=== PATIENT | female | born 1980 | race Caucasian/White ===

== ENCOUNTER 2016-10-11 14:22 | Emergency (ER) | payer SELFPAY ==
[~2016-10-11] VITALS: Ht 172.7 cm; Wt 154.2 kg
[~2016-10-11 14:22] MED LIST: GABA600T2 PO; LEVO100T7 PO; LITH300T PO; LOXA10CA PO; TRAZ150T72 PO
[2016-10-11] MEDS ORDERED: AMOX500C2 PO (14:38)
[2016-10-11] MEDS ORDERED: NAPR500T PO (14:38)
--- NOTE | 2016-10-11 14:38 | ED EENT ---
History of Present Illness General Stated Complaint: TOOTHACHE,HEADACHE Source: patient Exam Limitations: no limitations History of Present Illness Time seen by provider: 14:36 Initial Comments To ER with a left upper toothache for one week. No fevers or chills. No swelling. Has not seen her dentist. Timing/Duration: abrupt Severity: moderate Location: mouth Prearrival Treatment: no prearrival treatment Allergies and Home Medications Home Medications Gabapentin 600 Mg Tablet, 600 MG PO TIDAC, (Reported) Levothyroxine Sodium 100 Mcg Tablet, 100 MCG PO DAILY, (Reported) [place] Carbonate 300 Mg Tablet.er, 300 MG PO BID, (Reported) Loxapine Succinate 10 Mg Capsule, 10 MG PO BID, (Reported) Trazodone HCl 150 Mg Tablet, 150 MG PO HS, (Reported) Review of Systems Constitutional: see HPI, No chills, No fever Eyes: No Symptoms Reported Ears: No Symptoms Reported Nose: no symptoms reported Mouth: see HPI Throat: no symptoms reported Respiratory: no symptoms reported Cardiovascular: no symptoms reported Musculoskeletal: no symptoms reported Past Hioufgy-Tvgsyl-Cdhiqd Hx Patient Social History Recent Foreign Travel: No Contact w/Someone Who Travel: No Immunizations Up To Date Tetanus Booster (TDap): Unknown Surgeries HX Surgeries: Yes (LIVER BIOPSY) Surgeries: Section, Orthopedic Respiratory Hx Respiratory Disorders: Yes Respiratory Disorders: Sleep Apnea Cardiovascular Hx Cardiac Disorders: No Neurological Hx Neurological Disorders: Yes (NEUROPATHY FROM ALCOHOLISM; RESTLESSLEG SYNDROME) Neurological Disorders: Neuropathy Genitourinary Hx Genitourinary Disorders: No Gastrointestinal Hx Gastrointestinal Disorders: Yes (FATTY LIVER) Gastrointestinal Disorders: Liver Disease/Jaundice Musculoskeletal Hx Musculoskeletal Disorders: No Endocrine Hx Endocrine Disorders: Yes (OBESITY) Endocrine Disorders: Hypothyroidsim HEENT HX ENT Disorders: No Cancer Hx Cancer: No Psychosocial Hx Psychiatric Problems: Yes Behavioral Health Disorders: Anxiety, Bipolar, Depression Integumentary HX Skin/Integumentary Disorder: No Blood Transfusions Hx Blood Disorders: No Physical Exam General Appearance: WD/WN, no apparent distress Eyes: bilateral eye EOMI, bilateral eye PERRL, bilateral eye normal inspection Ears: bilateral ear TM normal, bilateral ear auricle normal, bilateral ear canal normal Mouth/Throat: other (multiple dental caries and fractured teeth) Neck: non-tender, full range of motion Respiratory: no respiratory distress, no accessory muscle use Gastrointestinal: normal bowel sounds, non tender, soft Neurologic/Psychiatric: alert, normal mood/affect, oriented x 3 Skin: normal color, warm/dry Departure Impression Impression: Primary Impression: Dental caries Disposition: 01 HOME, SELF-CARE Condition: Stable Departure-Patient Inst. Decision time for Depature: 14:37 Referrals: JOSE LARRY (PCP) Primary Care Physician FRANKLIN TAM MD FACP FAC [facility] (Family) Primary Care Physician Patient Instructions: Dental Pain, Tooth Decay, Adult Add. Discharge Instructions: 1. Call your dentist today to make an appointment to be seen within one to 2 weeks 2. Medication as directed 3. Return to ER for any swelling or fevers Scripts Naproxen (Naprosyn) 500 Mg Tablet 500 MG PO BID Y for PAIN, #30 TAB Prov: ANTWAN MITCHELL APRN 10/11/16 Amoxicillin (Amoxicillin) 500 Mg Capsule 500 MG PO TID, #21 CAP Prov: ANTWAN MITCHELL MANAGER FINANCIAL REPORTING 10/11/16 ANTWAN MITCHELL MANAGER FINANCIAL REPORTING Oct 11, 2016 14:38
[2016-10-11 14:43] VITALS: BP 140/90
== END 2016-10-11 14:43 | disposition home or self-care (01) ==
LOC: EDUNIT# 14:22 → ER 14:24
DX: K02.9 Dental caries, unspecified (principal); R51 Headache; E66.9 Obesity, unspecified; Z79.899 Other long term (current) drug therapy
CPT/HCPCS: 99282

== ENCOUNTER 2016-12-29 17:47 | Emergency (ER) | payer SELFPAY ==
[~2016-12-29] VITALS: Ht 175.3 cm; Wt 136.1 kg
[~2016-12-29 17:47] MED LIST changes: +AMOX500C2 PO; +NAPR500T PO
--- OUTSIDE RECORDS SUMMARY | 2016-12-29 18:04 | XMS REPORT | Continuity of Care Document ---
Author Author [facility] Organization [facility] Address Unknown Phone Unavailable Allergies Medications Problems Date Dx Coded Attending Type Code Diagnosis Diagnosed By 05/28/2012 JOSE LARRY APRN 296.30 MAJOR DEPRESSIVE AFFECTIVE DISORDER RECURRENT EPISODE UNSPECIFIED DEGREE 05/28/2012 JOSE LARRY APRN 356.9 NEUROPATHY 05/28/2012 JOSE LARRY APRN 719.43 PAIN IN JOINT INVOLVING FOREARM 05/28/2012 JOSE LARRY APRN 790.29 HYPERGLYCEMIA 05/28/2012 KATHARINE CLAIX DO 296.30 MAJOR DEPRESSIVE AFFECTIVE DISORDER RECURRENT EPISODE UNSPECIFIED DEGREE 05/28/2012 KATHARINE CALIX DO 356.9 NEUROPATHY 05/28/2012 KATHARINE CALIX DO 719.43 PAIN IN JOINT INVOLVING FOREARM 05/28/2012 KATHARINE CALIX DO 790.29 HYPERGLYCEMIA 05/28/2012 296.30 MAJOR DEPRESSIVE AFFECTIVE DISORDER RECURRENT EPISODE UNSPECIFIED DEGREE 05/28/2012 356.9 NEUROPATHY 05/28/2012 719.43 PAIN IN JOINT INVOLVING FOREARM 05/28/2012 790.29 HYPERGLYCEMIA 05/28/2012 WILLIS CUETO PHD 296.30 MAJOR DEPRESSIVE AFFECTIVE DISORDER RECURRENT EPISODE UNSPECIFIED DEGREE 05/28/2012 WILLIS CUETO PHD 356.9 NEUROPATHY 05/28/2012 WILLIS CUETO PHD 719.43 PAIN IN JOINT INVOLVING FOREARM 05/28/2012 WILLIS UCETO PHD 790.29 HYPERGLYCEMIA 05/28/2012 JAIMEE RAO APRN A 296.30 MAJOR DEPRESSIVE AFFECTIVE DISORDER RECURRENT EPISODE UNSPECIFIED DEGREE 05/28/2012 JAIMEE RAO APRN A 356.9 NEUROPATHY 05/28/2012 JAIMEE RAO APRN 719.43 PAIN IN JOINT INVOLVING FOREARM 05/28/2012 JAIMEE RAO APRN 790.29 HYPERGLYCEMIA 05/28/2012 296.30 MAJOR DEPRESSIVE AFFECTIVE DISORDER RECURRENT EPISODE UNSPECIFIED DEGREE 05/28/2012 356.9 NEUROPATHY 05/28/2012 719.43 PAIN IN JOINT INVOLVING FOREARM 05/28/2012 790.29 HYPERGLYCEMIA 05/28/2012 296.30 MAJOR DEPRESSIVE AFFECTIVE DISORDER RECURRENT EPISODE UNSPECIFIED DEGREE 05/28/2012 356.9 NEUROPATHY 05/28/2012 719.43 PAIN IN JOINT INVOLVING FOREARM 05/28/2012 790.29 HYPERGLYCEMIA 05/28/2012 296.30 MAJOR DEPRESSIVE AFFECTIVE DISORDER RECURRENT EPISODE UNSPECIFIED DEGREE 05/28/2012 356.9 NEUROPATHY 05/28/2012 719.43 PAIN IN JOINT INVOLVING FOREARM 05/28/2012 790.29 HYPERGLYCEMIA 05/28/2012 296.30 MAJOR DEPRESSIVE AFFECTIVE DISORDER RECURRENT EPISODE UNSPECIFIED DEGREE 05/28/2012 356.9 NEUROPATHY 05/28/2012 719.43 PAIN IN JOINT INVOLVING FOREARM 05/28/2012 790.29 HYPERGLYCEMIA 05/28/2012 KATHARINE CALIX DO 296.30 MAJOR DEPRESSIVE AFFECTIVE DISORDER RECURRENT EPISODE UNSPECIFIED DEGREE 05/28/2012 KATHARINE CALIX DO 356.9 NEUROPATHY 05/28/2012 KATHARINE CALIX DO 719.43 PAIN IN JOINT INVOLVING FOREARM 05/28/2012 KATHARINE CALIX DO 790.29 HYPERGLYCEMIA 05/28/2012 WILLIS CUETO PHD 296.30 MAJOR DEPRESSIVE AFFECTIVE DISORDER RECURRENT EPISODE UNSPECIFIED DEGREE 05/28/2012 WILLIS CUETO PHD 356.9 NEUROPATHY 05/28/2012 WILLIS CUETO PHD 719.43 PAIN IN JOINT INVOLVING FOREARM 05/28/2012 WILLIS CUETO PHD 790.29 HYPERGLYCEMIA 05/28/2012 DIGNA GUERRERO MD 296.30 MAJOR DEPRESSIVE AFFECTIVE DISORDER RECURRENT EPISODE UNSPECIFIED DEGREE 05/28/2012 DIGNA GUERRERO MD 356.9 NEUROPATHY 05/28/2012 DIGNA GUERRERO MD 719.43 PAIN IN JOINT INVOLVING FOREARM 05/28/2012 DIGNA GUERRERO MD 790.29 HYPERGLYCEMIA 05/28/2012 NIRU SIN JR 296.30 MAJOR DEPRESSIVE AFFECTIVE DISORDER RECURRENT EPISODE UNSPECIFIED DEGREE 05/28/2012 NIRU SIN JR 356.9 NEUROPATHY 05/28/2012 NIRU SIN JR 719.43 PAIN IN JOINT INVOLVING FOREARM 05/28/2012 NIRU SIN JR 790.29 HYPERGLYCEMIA 05/28/2012 NIRU SIN JR 296.30 MAJOR DEPRESSIVE AFFECTIVE DISORDER RECURRENT EPISODE UNSPECIFIED DEGREE 05/28/2012 NIRU SIN JR S 356.9 NEUROPATHY 05/28/2012 NIRU SIN JR S 719.43 PAIN IN JOINT INVOLVING FOREARM 05/28/2012 NIRU SIN JR S 790.29 HYPERGLYCEMIA 05/28/2012 DIGNA GUERRERO MD 296.30 MAJOR DEPRESSIVE AFFECTIVE DISORDER RECURRENT EPISODE UNSPECIFIED DEGREE 05/28/2012 DIGNA GUERRERO MD 356.9 NEUROPATHY 05/28/2012 DIGNA GUERRERO MD 719.43 PAIN IN JOINT INVOLVING FOREARM 05/28/2012 DIGNA GUERRERO MD 790.29 HYPERGLYCEMIA 05/28/2012 NIRU SIN JR S 296.30 MAJOR DEPRESSIVE AFFECTIVE DISORDER RECURRENT EPISODE UNSPECIFIED DEGREE 05/28/2012 NIRU SIN JR S 356.9 NEUROPATHY 05/28/2012 NIRU SIN JR S 719.43 PAIN IN JOINT INVOLVING FOREARM 05/28/2012 NIRU SIN JR S 790.29 HYPERGLYCEMIA 05/28/2012 SIMONE TEJADA APRN 296.30 MAJOR DEPRESSIVE AFFECTIVE DISORDER RECURRENT EPISODE UNSPECIFIED DEGREE 05/28/2012 SIMONE TEJADA APRN 356.9 NEUROPATHY 05/28/2012 SIMONE TEJADA APRN 719.43 PAIN IN JOINT INVOLVING FOREARM 05/28/2012 SIMONE TEJADA APRN 790.29 HYPERGLYCEMIA 05/28/2012 SIMONE TEJADA APRN D 296.30 MAJOR DEPRESSIVE AFFECTIVE DISORDER RECURRENT EPISODE UNSPECIFIED DEGREE 05/28/2012 SIMONE TEJADA APRN D 356.9 NEUROPATHY 05/28/2012 SIMONE TEJADA APRN D 719.43 PAIN IN JOINT INVOLVING FOREARM 05/28/2012 SIMONE TEJADA APRN D 790.29 HYPERGLYCEMIA 05/28/2012 ELZBIETA LARRY APRNA S 296.30 MAJOR DEPRESSIVE AFFECTIVE DISORDER RECURRENT EPISODE UNSPECIFIED DEGREE 05/28/2012 GIOVANNY LARRY APRNNDA S 356.9 NEUROPATHY 05/28/2012 GIOVANNY LARRY APRNNDA S 719.43 PAIN IN JOINT INVOLVING FOREARM 05/28/2012 KENDY BROWN JOSE S 790.29 HYPERGLYCEMIA 05/28/2012 BRYAN ALFONSO APRN 296.30 MAJOR DEPRESSIVE AFFECTIVE DISORDER RECURRENT EPISODE UNSPECIFIED DEGREE 05/28/2012 KADEN FILAMENT COIL WINDER, BRYAN 356.9 NEUROPATHY 05/28/2012 KADEN FILAMENT COIL WINDER, BRYAN 719.43 PAIN IN JOINT INVOLVING FOREARM 05/28/2012 KADEN FILAMENT COIL WINDER, BRYAN 790.29 HYPERGLYCEMIA 05/28/2012 KADEN FILAMENT COIL WINDER, BRYAN 296.30 MAJOR DEPRESSIVE AFFECTIVE DISORDER RECURRENT EPISODE UNSPECIFIED DEGREE 05/28/2012 KADEN FILAMENT COIL WINDER, BRYAN 356.9 NEUROPATHY 05/28/2012 KADEN FILAMENT COIL WINDER, BRYAN 719.43 PAIN IN JOINT INVOLVING FOREARM 05/28/2012 KADEN FILAMENT COIL WINDER, BRYAN 790.29 HYPERGLYCEMIA 05/28/2012 KADEN FILAMENT COIL WINDER, BRYAN 296.30 MAJOR DEPRESSIVE AFFECTIVE DISORDER RECURRENT EPISODE UNSPECIFIED DEGREE 05/28/2012 KADEN FILAMENT COIL WINDER, BRYAN 356.9 NEUROPATHY 05/28/2012 KADEN FILAMENT COIL WINDER, BRYAN 719.43 PAIN IN JOINT INVOLVING FOREARM 05/28/2012 KADEN FILAMENT COIL WINDER, BRYAN 790.29 HYPERGLYCEMIA 05/28/2012 KENDY BROWN, JOSE S 296.30 MAJOR DEPRESSIVE AFFECTIVE DISORDER RECURRENT EPISODE UNSPECIFIED DEGREE 05/28/2012 KENDY BROWN JOSE S 356.9 NEUROPATHY 05/28/2012 KENDY BROWN, JOSE S 719.43 PAIN IN JOINT INVOLVING FOREARM 05/28/2012 KENDY BROWN, JOSE S 790.29 HYPERGLYCEMIA 05/28/2012 KADEN FILAMENT COIL WINDER, BRYAN 296.30 MAJOR DEPRESSIVE AFFECTIVE DISORDER RECURRENT EPISODE UNSPECIFIED DEGREE 05/28/2012 KADEN FILAMENT COIL WINDER, BRYAN 356.9 NEUROPATHY 05/28/2012 KADEN FILAMENT COIL WINDER, BRYAN 719.43 PAIN IN JOINT INVOLVING FOREARM 05/28/2012 KADEN FILAMENT COIL WINDER, BRYAN 790.29 HYPERGLYCEMIA 05/28/2012 KENDY HILLN, JOSE S 296.30 MAJOR DEPRESSIVE AFFECTIVE DISORDER RECURRENT EPISODE UNSPECIFIED DEGREE 05/28/2012 KENDY FILAMENT COIL WINDER, JOSE S 356.9 NEUROPATHY 05/28/2012 KENDY HILLN, JOSE S 719.43 PAIN IN JOINT INVOLVING FOREARM 05/28/2012 KENDY FILAMENT COIL WINDER, JOSE S 790.29 HYPERGLYCEMIA 05/28/2012 KADEN FILAMENT COIL WINDER, BRYAN 296.30 MAJOR DEPRESSIVE AFFECTIVE DISORDER RECURRENT EPISODE UNSPECIFIED DEGREE 05/28/2012 KADEN FILAMENT COIL WINDER, BRYAN 356.9 NEUROPATHY 05/28/2012 KADEN BROWN BRYAN 719.43 PAIN IN JOINT INVOLVING FOREARM 05/28/2012 ERIBERTO ALFONSO APRNETTE 790.29 HYPERGLYCEMIA 07/25/2012 KATHARINE CALIX DO 296.90 MOOD DISORDER 07/25/2012 KATHARINE CALIX DO 307.47 SI DYSSOMNIA NOS 07/25/2012 KATHARINE CALIX DO V58.69 high risk medication 07/25/2012 296.90 MOOD DISORDER 07/25/2012 307.47 SI DYSSOMNIA NOS 07/25/2012 V58.69 high risk medication 07/25/2012 ROM PINEDO, WILLIS Oliveira 296.90 MOOD DISORDER 07/25/2012 ROM PHD, WILLIS Oliveira 307.47 SI DYSSOMNIA NOS 07/25/2012 ROM PINEDO, WILLIS Oliveira V58.69 high risk medication 07/25/2012 FELIX RAO APRNIDI A 296.90 MOOD DISORDER 07/25/2012 MAIRA BROWN JAIMEE A 307.47 SI DYSSOMNIA NOS 07/25/2012 MAIRA BROWN JAIMEE A V58.69 high risk medication 07/25/2012 296.90 MOOD DISORDER 07/25/2012 307.47 SI DYSSOMNIA NOS 07/25/2012 V58.69 high risk medication 07/25/2012 296.90 MOOD DISORDER 07/25/2012 307.47 SI DYSSOMNIA NOS 07/25/2012 V58.69 high risk medication 07/25/2012 296.90 MOOD DISORDER 07/25/2012 307.47 SI DYSSOMNIA NOS 07/25/2012 V58.69 high risk medication 07/25/2012 296.90 MOOD DISORDER 07/25/2012 307.47 SI DYSSOMNIA NOS 07/25/2012 V58.69 high risk medication 07/25/2012 KATHARINE CALIX DO 296.90 MOOD DISORDER 07/25/2012 KATHARINE CALIX DO 307.47 SI DYSSOMNIA NOS 07/25/2012 KATHARINE CALIX DO V58.69 high risk medication 07/25/2012 ROM PINEDO, WILLIS Oliveira 296.90 MOOD DISORDER 07/25/2012 ROM PINEDO, WILLIS Oliveira 307.47 SI DYSSOMNIA NOS 07/25/2012 ROM PINEDO, WILLIS Oliveira V58.69 high risk medication 07/25/2012 DIGNA GUERRERO MD 296.90 MOOD DISORDER 07/25/2012 DIGNA GUERRERO MD 307.47 SI DYSSOMNIA NOS 07/25/2012 DIGNA GUERRERO MD V58.69 high risk medication 07/25/2012 JANUARY MELO NIRU S 296.90 MOOD DISORDER 07/25/2012 JANUARY MELO NIRU S 307.47 SI DYSSOMNIA NOS 07/25/2012 JANUARY MELO NIRU S V58.69 high risk medication 07/25/2012 JANUARY MELO NIRU S 296.90 MOOD DISORDER 07/25/2012 JANUARY MELO NIRU S 307.47 SI DYSSOMNIA NOS 07/25/2012 JANUARY MELO NIRU S V58.69 high risk medication 07/25/2012 DIGNA GUERRERO MD 296.90 MOOD DISORDER 07/25/2012 DIGNA GUERRERO MD 307.47 SI DYSSOMNIA NOS 07/25/2012 DIGNA GUERRERO MD V58.69 high risk medication 07/25/2012 JANUARY MELO NIRU S 296.90 MOOD DISORDER 07/25/2012 NIRU SIN JR S 307.47 SI DYSSOMNIA NOS 07/25/2012 JANUARY MELO NIRU S V58.69 high risk medication 07/25/2012 SIMONE ETJADA APRN 296.90 MOOD DISORDER 07/25/2012 SIMONE TEJADA APRN 307.47 SI DYSSOMNIA NOS 07/25/2012 SIMONE TEJADA APRN V58.69 high risk medication 07/25/2012 SIMONE TEJADA APRN 296.90 MOOD DISORDER 07/25/2012 SIMNOE TEJADA APRN 307.47 SI DYSSOMNIA NOS 07/25/2012 SIMONE TEJADA APRN V58.69 high risk medication 07/25/2012 ELZBIETA LARRY APRNA S 296.90 MOOD DISORDER 07/25/2012 JOSE LARRY APRN S 307.47 SI DYSSOMNIA NOS 07/25/2012 GIOVANNY LARRY APRNNDA S V58.69 high risk medication 07/25/2012 BRYAN ALFONSO APRN 296.90 MOOD DISORDER 07/25/2012 BRYAN ALFONSO APRN 307.47 SI DYSSOMNIA NOS 07/25/2012 KADEN FILAMENT COIL WINDER, BRYAN V58.69 high risk medication 07/25/2012 KADEN FILAMENT COIL WINDER, BRYAN 296.90 MOOD DISORDER 07/25/2012 KADEN FILAMENT COIL WINDER, BRYAN 307.47 SI DYSSOMNIA NOS 07/25/2012 KADEN FILAMENT COIL WINDER, BRYAN V58.69 high risk medication 07/25/2012 KADEN FILAMENT COIL WINDER, BRYAN 296.90 MOOD DISORDER 07/25/2012 KADEN FILAMENT COIL WINDER, BRYAN 307.47 SI DYSSOMNIA NOS 07/25/2012 KADEN FILAMENT COIL WINDER, BRYAN V58.69 high risk medication 07/25/2012 KENDY BROWN JOSE S 296.90 MOOD DISORDER 07/25/2012 KENDY BROWN JOSE S 307.47 SI DYSSOMNIA NOS 07/25/2012 KENDY BROWN JOSE S V58.69 high risk medication 07/25/2012 KADEN FILAMENT COIL WINDER, BRYAN 296.90 MOOD DISORDER 07/25/2012 KADEN FILAMENT COIL WINDER, BRYAN 307.47 SI DYSSOMNIA NOS 07/25/2012 KADEN FILAMENT COIL WINDER, BRYAN V58.69 HIGH RISK MEDICATION 07/25/2012 KENDY BROWN JOSE S 296.90 MOOD DISORDER 07/25/2012 KENDY BROWN, JOSE S 307.47 SI DYSSOMNIA NOS 07/25/2012 KENDY BROWN, JOSE S V58.69 HIGH RISK MEDICATION 07/25/2012 KADEN FILAMENT COIL WINDER, BRYAN 296.90 MOOD DISORDER 07/25/2012 KADEN FILAMENT COIL WINDER, BRYAN 307.47 SI DYSSOMNIA NOS 07/25/2012 KADEN FILAMENT COIL WINDER, BRYAN V58.69 HIGH RISK MEDICATION 09/17/2012 FELIX RAO APRNIDI A 278.00 OBESITY 09/17/2012 FELIX RAO APRNIDI A V73.81 HPV SCREENING 09/17/2012 MAIRA BROWN JAIMEE A V74.5 STD SCREEN 09/17/2012 MAIRA BROWN JAIMEE A V76.2 CERVICAL CANCER SCREENING (PAP SMEAR) 09/17/2012 278.00 OBESITY 09/17/2012 V73.81 HPV SCREENING 09/17/2012 V74.5 STD SCREEN 09/17/2012 V76.2 CERVICAL CANCER SCREENING (PAP SMEAR) 09/17/2012 278.00 OBESITY 09/17/2012 V73.81 HPV SCREENING 09/17/2012 V74.5 STD SCREEN 09/17/2012 V76.2 CERVICAL CANCER SCREENING (PAP SMEAR) 09/17/2012 278.00 OBESITY 09/17/2012 V73.81 HPV SCREENING 09/17/2012 V74.5 STD SCREEN 09/17/2012 V76.2 CERVICAL CANCER SCREENING (PAP SMEAR) 09/17/2012 278.00 OBESITY 09/17/2012 V73.81 HPV SCREENING 09/17/2012 V74.5 STD SCREEN 09/17/2012 V76.2 CERVICAL CANCER SCREENING (PAP SMEAR) 09/17/2012 KATHARINE CALIX DO 278.00 OBESITY 09/17/2012 KATHARINE CALIX DO V73.81 HPV SCREENING 09/17/2012 ISADORAKATHARINE GASTELUM DO V74.5 STD SCREEN 09/17/2012 KATHARINE CALIX DO V76.2 CERVICAL CANCER SCREENING (PAP SMEAR) 09/17/2012 ROM PHD, WILLIS Oliveira 278.00 OBESITY 09/17/2012 ROM PHD, WILLIS Oliveira V73.81 HPV SCREENING 09/17/2012 ROM PHD, WILLIS Oliveira V74.5 STD SCREEN 09/17/2012 ROM PHD, WILLIS Oliveira V76.2 CERVICAL CANCER SCREENING (PAP SMEAR) 09/17/2012 DIGNA GUERRERO MD 278.00 OBESITY 09/17/2012 DIGNA GUERRERO MD V73.81 HPV SCREENING 09/17/2012 DIGNA GUERRERO MD V74.5 STD SCREEN 09/17/2012 DIGNA GUERRERO MD V76.2 CERVICAL CANCER SCREENING (PAP SMEAR) 09/17/2012 NIRU SIN JR 278.00 OBESITY 09/17/2012 NIRU SIN JR V73.81 HPV SCREENING 09/17/2012 NIRU SIN JR V74.5 STD SCREEN 09/17/2012 NIRU SIN JR V76.2 CERVICAL CANCER SCREENING (PAP SMEAR) 09/17/2012 NIRU SIN JR 278.00 OBESITY 09/17/2012 NIRU SIN JR V73.81 HPV SCREENING 09/17/2012 NIRU SIN JR V74.5 STD SCREEN 09/17/2012 NIRU SIN JR V76.2 CERVICAL CANCER SCREENING (PAP SMEAR) 09/17/2012 DIGNA GUERRERO MD 278.00 OBESITY 09/17/2012 DIGNA GUERRERO MD V73.81 HPV SCREENING 09/17/2012 DIGNA GUERRERO MD V74.5 STD SCREEN 09/17/2012 DIGNA GUERRERO MD V76.2 CERVICAL CANCER SCREENING (PAP SMEAR) 09/17/2012 NIRU SIN JR S 278.00 OBESITY 09/17/2012 NIRU SIN JR S V73.81 HPV SCREENING 09/17/2012 NIRU SIN JR S V74.5 STD SCREEN 09/17/2012 NIRU SIN JR S V76.2 CERVICAL CANCER SCREENING (PAP SMEAR) 09/17/2012 SIMONE TEJADA APRN 278.00 OBESITY 09/17/2012 SIMONE TEJADA APRN V73.81 HPV SCREENING 09/17/2012 SIMONE TEJADA APRN V74.5 STD SCREEN 09/17/2012 SIMONE TEJADA APRN V76.2 CERVICAL CANCER SCREENING (PAP SMEAR) 09/17/2012 SIMONE TEJADA APRN 278.00 OBESITY 09/17/2012 SIMONE TEJADA APRN V73.81 HPV SCREENING 09/17/2012 SIMONE TEJADA APRN V74.5 STD SCREEN 09/17/2012 SIMONE TEJADA APRN V76.2 CERVICAL CANCER SCREENING (PAP SMEAR) 09/17/2012 ELZBIETA LARRY APRNA S 278.00 OBESITY 09/17/2012 GIOVANNY LARRY APRNNDA S V73.81 HPV SCREENING 09/17/2012 GIOVANNY LARRY APRNNDA S V74.5 STD SCREEN 09/17/2012 GIOVANNY LARRY APRNNDA S V76.2 CERVICAL CANCER SCREENING (PAP SMEAR) 09/17/2012 KADEN FILAMENT COIL WINDER, BRYAN 278.00 OBESITY 09/17/2012 KADEN FILAMENT COIL WINDER, BRYAN V73.81 HPV SCREENING 09/17/2012 KADEN FILAMENT COIL WINDER, BRYAN V74.5 STD SCREEN 09/17/2012 KADEN FILAMENT COIL WINDER, BRYAN V76.2 CERVICAL CANCER SCREENING (PAP SMEAR) 09/17/2012 KADEN FILAMENT COIL WINDER, BRYAN 278.00 OBESITY 09/17/2012 KADEN FILAMENT COIL WINDER, BRYAN V73.81 HPV SCREENING 09/17/2012 KADEN FILAMENT COIL WINDER, BRYAN V74.5 STD SCREEN 09/17/2012 KADEN FILAMENT COIL WINDER, BRYAN V76.2 CERVICAL CANCER SCREENING (PAP SMEAR) 09/17/2012 KADEN FILAMENT COIL WINDER, BRYAN 278.00 OBESITY 09/17/2012 KADEN FILAMENT COIL WINDER, BRYAN V73.81 HPV SCREENING 09/17/2012 KADEN FILAMENT COIL WINDER, BRYAN V74.5 STD SCREEN 09/17/2012 KADEN FILAMENT COIL WINDER, BRYAN V76.2 CERVICAL CANCER SCREENING (PAP SMEAR) 09/17/2012 KENDY FILAMENT COIL WINDER, JOSE S 278.00 OBESITY 09/17/2012 KENDY FILAMENT COIL WINDER, JOSE S V73.81 HPV SCREENING 09/17/2012 KENDY FILAMENT COIL WINDER, JOSE S V74.5 STD SCREEN 09/17/2012 KENDY FILAMENT COIL WINDER, JOSE S V76.2 CERVICAL CANCER SCREENING (PAP SMEAR) 09/17/2012 KADEN FILAMENT COIL WINDER, BRYAN 278.00 OBESITY 09/17/2012 KADEN FILAMENT COIL WINDER, BRYAN V73.81 HPV SCREENING 09/17/2012 KADEN FILAMENT COIL WINDER, BRYAN V74.5 STD SCREEN 09/17/2012 KADEN FILAMENT COIL WINDER, BRYAN V76.2 CERVICAL CANCER SCREENING (PAP SMEAR) 09/17/2012 KENDY FILAMENT COIL WINDER, JOSE S 278.00 OBESITY 09/17/2012 KENDY FILAMENT COIL WINDER, JOSE S V73.81 HPV SCREENING 09/17/2012 KENDY FILAMENT COIL WINDER, JOSE S V74.5 STD SCREEN 09/17/2012 KENDY FILAMENT COIL WINDER, JOSE S V76.2 CERVICAL CANCER SCREENING (PAP SMEAR) 09/17/2012 KADEN FILAMENT COIL WINDER, BRYAN 278.00 OBESITY 09/17/2012 KADEN FILAMENT COIL WINDER, BRYAN V73.81 HPV SCREENING 09/17/2012 KADEN FILAMENT COIL WINDER, BRYAN V74.5 STD SCREEN 09/17/2012 KADEN FILAMENT COIL WINDER, BRYAN V76.2 CERVICAL CANCER SCREENING (PAP SMEAR) 02/12/2013 333.94 RESTLESS LEGS SYNDROME (RLS) 02/12/2013 333.94 RESTLESS LEGS SYNDROME (RLS) 02/12/2013 KATHARINE CALIX DO 333.94 RESTLESS LEGS SYNDROME (RLS) 02/12/2013 ROM PHD, WILLIS Oliveira 333.94 RESTLESS LEGS SYNDROME (RLS) 02/12/2013 DIGNA GUERRERO MD 333.94 RESTLESS LEGS SYNDROME (RLS) 02/12/2013 NIRU SIN JR 333.94 RESTLESS LEGS SYNDROME (RLS) 02/12/2013 NIRU SIN JR 333.94 RESTLESS LEGS SYNDROME (RLS) 02/12/2013 DIGNA GUERRERO MD 333.94 RESTLESS LEGS SYNDROME (RLS) 02/12/2013 NIRU SIN JR 333.94 RESTLESS LEGS SYNDROME (RLS) 02/12/2013 SIMONE TEJADA APRN 333.94 RESTLESS LEGS SYNDROME (RLS) 02/12/2013 SIMONE TEJADA APRN 333.94 RESTLESS LEGS SYNDROME (RLS) 02/12/2013 KENDY FILAMENT COIL WINDER, JOSE S 333.94 RESTLESS LEGS SYNDROME (RLS) 02/12/2013 KADEN FILAMENT COIL WINDER, BRYAN 333.94 RESTLESS LEGS SYNDROME (RLS) 02/12/2013 KADEN FILAMENT COIL WINDER, BRYAN 333.94 RESTLESS LEGS SYNDROME (RLS) 02/12/2013 KADEN FILAMENT COIL WINDER, BRYAN 333.94 RESTLESS LEGS SYNDROME (RLS) 02/12/2013 KENDY FILAMENT COIL WINDER, JOSE S 333.94 RESTLESS LEGS SYNDROME (RLS) 02/12/2013 KADEN FILAMENT COIL WINDER, BRYAN 333.94 RESTLESS LEGS SYNDROME (RLS) 02/12/2013 KENDY FILAMENT COIL WINDER, JOSE S 333.94 RESTLESS LEGS SYNDROME (RLS) 02/12/2013 KADEN FILAMENT COIL WINDER, BRYAN 333.94 RESTLESS LEGS SYNDROME (RLS) 04/02/2013 KATHARINE CALIX DO Ot 327.23 OBSTRUCTIVE SLEEP APNEA (ADULT) (PEDIATR 04/19/2013 DIGNA GUERRERO MD 296.89 MO BIPOLAR II 04/19/2013 DIGNA GUERRERO MD 300.23 AN SOCIAL PHOBIA 04/19/2013 NIRU SIN JR 296.89 MO BIPOLAR II 04/19/2013 NIRU SIN JR 300.23 AN SOCIAL PHOBIA 04/19/2013 NIRU SIN JR 296.89 MO BIPOLAR II 04/19/2013 NIRU SIN JR 300.23 AN SOCIAL PHOBIA 04/19/2013 DIGNA GUERRERO MD 296.89 MO BIPOLAR II 04/19/2013 DIGNA GUERRERO MD 300.23 AN SOCIAL PHOBIA 04/19/2013 NIRU SIN JR 296.89 MO BIPOLAR II 04/19/2013 NIRU SIN JR 300.23 AN SOCIAL PHOBIA 04/19/2013 SIMONE TEJADA APRN 296.89 MO BIPOLAR II 04/19/2013 SIMONE TEJADA APRN D 300.23 AN SOCIAL PHOBIA 04/19/2013 SIMONE TEJADA APRN D 296.89 MO BIPOLAR II 04/19/2013 SIMONE TEJADA APRN D 300.23 AN SOCIAL PHOBIA 04/19/2013 KENDY BROWN, JOSE S 296.89 MO BIPOLAR II 04/19/2013 KENDY BROWN, JOSE S 300.23 AN SOCIAL PHOBIA 04/19/2013 KADEN FILAMENT COIL WINDER, BRYAN 296.89 MO BIPOLAR II 04/19/2013 KADEN FILAMENT COIL WINDER, BRYAN 300.23 AN SOCIAL PHOBIA 04/19/2013 KADEN FILAMENT COIL WINDER, BRYAN 296.89 MO BIPOLAR II 04/19/2013 KADEN FILAMENT COIL WINDER, BRYAN 300.23 AN SOCIAL PHOBIA 04/19/2013 KADEN FILAMENT COIL WINDER, BRYAN 296.89 MO BIPOLAR II 04/19/2013 KADEN FILAMENT COIL WINDER, BRYAN 300.23 AN SOCIAL PHOBIA 04/19/2013 KENDY FILAMENT COIL WINDER, JOSE S 296.89 MO BIPOLAR II 04/19/2013 KENDY FILAMENT COIL WINDER, JOSE S 300.23 AN SOCIAL PHOBIA 04/19/2013 KADEN FILAMENT COIL WINDER, BRYAN 296.89 MO BIPOLAR II 04/19/2013 KADEN FILAMENT COIL WINDER, BRYAN 300.23 AN SOCIAL PHOBIA 04/19/2013 KENDY BROWN, JOSE S 296.89 MO BIPOLAR II 04/19/2013 KENDYJULIEN BROWN, JOSE S 300.23 AN SOCIAL PHOBIA 04/19/2013 KADEN FILAMENT COIL WINDER, BRYAN 296.89 MO BIPOLAR II 04/19/2013 KADEN FILAMENT COIL WINDER, BRYAN 300.23 AN SOCIAL PHOBIA 08/09/2013 DIGNA GUERRERO MD 780.57 UNSPECIFIED SLEEP APNEA 08/09/2013 NIRU SIN JR 780.57 UNSPECIFIED SLEEP APNEA 08/09/2013 SIMONE TEJADA APRN 780.57 UNSPECIFIED SLEEP APNEA 08/09/2013 SIMONE TEJADA APRN 780.57 UNSPECIFIED SLEEP APNEA 08/09/2013 GIOVANNY LARRY APRNNDA S 780.57 UNSPECIFIED SLEEP APNEA 08/09/2013 KADEN FILAMENT COIL WINDER, BRYAN 780.57 UNSPECIFIED SLEEP APNEA 08/09/2013 KADEN FILAMENT COIL WINDER, BRYAN 780.57 UNSPECIFIED SLEEP APNEA 08/09/2013 KADEN FILAMENT COIL WINDER, BRYAN 780.57 UNSPECIFIED SLEEP APNEA 08/09/2013 KENDY FILAMENT COIL WINDER, JOSE S 780.57 UNSPECIFIED SLEEP APNEA 08/09/2013 KADEN FILAMENT COIL WINDER, BRYAN 780.57 UNSPECIFIED SLEEP APNEA 08/09/2013 GIOVANNY LARRY APRNNDA S 780.57 UNSPECIFIED SLEEP APNEA 08/09/2013 KADEN FILAMENT COIL WINDER, BRYAN 780.57 UNSPECIFIED SLEEP APNEA 11/21/2013 GIOVANNY LARRY APRNNDA S 112.3 CANDIDIASIS OF SKIN AND NAILS 11/21/2013 GIOVANNY LARRY APRNNDA S 244.9 UNSPECIFIED ACQUIRED HYPOTHYROIDISM 11/21/2013 KADEN FILAMENT COIL WINDER, BRYAN 112.3 CANDIDIASIS OF SKIN AND NAILS 11/21/2013 KADEN FILAMENT COIL WINDER, BRYAN 244.9 UNSPECIFIED ACQUIRED HYPOTHYROIDISM 11/21/2013 KADEN FILAMENT COIL WINDER, BRYAN 112.3 CANDIDIASIS OF SKIN AND NAILS 11/21/2013 KADEN FILAMENT COIL WINDER, BRYAN 244.9 UNSPECIFIED ACQUIRED HYPOTHYROIDISM 11/21/2013 KADEN FILAMENT COIL WINDER, BRYAN 112.3 CANDIDIASIS OF SKIN AND NAILS 11/21/2013 KADEN FILAMENT COIL WINDER, BRYAN 244.9 UNSPECIFIED ACQUIRED HYPOTHYROIDISM 11/21/2013 KENDY BROWN JOSE S 112.3 CANDIDIASIS OF SKIN AND NAILS 11/21/2013 KENDY BROWN JOSE S 244.9 UNSPECIFIED ACQUIRED HYPOTHYROIDISM 11/21/2013 KADEN FILAMENT COIL WINDER, BRYAN 112.3 CANDIDIASIS OF SKIN AND NAILS 11/21/2013 KADEN FILAMENT COIL WINDER BRYAN 244.9 UNSPECIFIED ACQUIRED HYPOTHYROIDISM 11/21/2013 KENDY BROWN JOSE S 112.3 CANDIDIASIS OF SKIN AND NAILS 11/21/2013 GIOVANNY LARRY APRNNDA S 244.9 UNSPECIFIED ACQUIRED HYPOTHYROIDISM 11/21/2013 KADEN FILAMENT COIL WINDER, BRYAN 112.3 CANDIDIASIS OF SKIN AND NAILS 11/21/2013 KADEN FILAMENT COIL WINDER, BRYAN 244.9 UNSPECIFIED ACQUIRED HYPOTHYROIDISM 04/09/2014 KADEN FILAMENT COIL WINDER, BRYAN 784.0 HEADACHE 04/09/2014 KENDY FILAMENT COIL WINDER, JOSE S 784.0 HEADACHE 04/09/2014 KADEN FILAMENT COIL WINDER, BRYAN 784.0 HEADACHE 06/10/2014 KENDY FILAMENT COIL WINDER, JOSE S 700 CORNS AND CALLOSITIES 06/10/2014 KENDY FILAMENT COIL WINDER, JOSE S 719.46 PAIN IN JOINT INVOLVING LOWER LEG 06/10/2014 KENDY FILAMENT COIL WINDER, JOSE S 787.91 DIARRHEA 06/10/2014 KADEN FILAMENT COIL WINDER, BRYAN 700 CORNS AND CALLOSITIES 06/10/2014 KADEN FILAMENT COIL WINDER, BRYAN 719.46 PAIN IN JOINT INVOLVING LOWER LEG 06/10/2014 KADEN FILAMENT COIL WINDER, BRYAN 787.91 DIARRHEA 07/24/2014 KADEN FILAMENT COIL WINDER, BRYAN 733.92 CHONDROMALACIA 09/02/2014 KADEN FILAMENT COIL WINDER, BRYAN V58.69 MEDICATION HIGH RISK 01/13/2016 JOSE LARRY HEARINGS REPORTER Ot H53.9 UNSPECIFIED VISUAL DISTURBANCE 01/13/2016 MANNY DO, DARREN K Ot H53.8 OTHER VISUAL DISTURBANCES 01/13/2016 MANNY DO, DARREN K Ot H53.9 UNSPECIFIED VISUAL DISTURBANCE 01/14/2016 MANNY DO, DARREN K Ot H53.8 OTHER VISUAL DISTURBANCES 01/14/2016 MANNY DO, DARREN K Ot H53.9 UNSPECIFIED VISUAL DISTURBANCE 01/14/2016 MANNY DO, DARREN K Ot H53.8 OTHER VISUAL DISTURBANCES 01/14/2016 MANNY DO, DARREN K Ot H53.9 UNSPECIFIED VISUAL DISTURBANCE 02/03/2016 JOSE LARRY HEARINGS REPORTER Ot H53.9 UNSPECIFIED VISUAL DISTURBANCE 02/03/2016 JOSE LARRY HEARINGS REPORTER Ot H53.9 UNSPECIFIED VISUAL DISTURBANCE 02/11/2016 JOSE LARRY HEARINGS REPORTER Ot H53.9 UNSPECIFIED VISUAL DISTURBANCE 02/11/2016 JOSE LARRY HEARINGS REPORTER Ot H53.9 UNSPECIFIED VISUAL DISTURBANCE 03/01/2016 NATALIE HYLTON HEARINGS REPORTER Ot E03.9 HYPOTHYROIDISM, UNSPECIFIED 03/01/2016 BAIMA, NATALIE L HEARINGS REPORTER Ot E78.5 HYPERLIPIDEMIA, UNSPECIFIED 03/01/2016 BAIMA, NATALIE L HEARINGS REPORTER Ot E87.6 HYPOKALEMIA 03/01/2016 BAIMA, NATALIE L HEARINGS REPORTER Ot R00.2 PALPITATIONS 03/01/2016 BAIMA, NATALIE L HEARINGS REPORTER Ot R06.09 OTHER FORMS OF DYSPNEA 03/03/2016 BAIMA, NATALIE L HEARINGS REPORTER Ot E03.9 HYPOTHYROIDISM, UNSPECIFIED 03/03/2016 BAIMA, NATALIE L HEARINGS REPORTER Ot E78.5 HYPERLIPIDEMIA, UNSPECIFIED 03/03/2016 BAIMA, NATALIE L HEARINGS REPORTER Ot E87.6 HYPOKALEMIA 03/03/2016 BAIMA, NATALIE L HEARINGS REPORTER Ot R00.2 PALPITATIONS 03/03/2016 BAIMA, NATALIE L HEARINGS REPORTER Ot R06.09 OTHER FORMS OF DYSPNEA 03/08/2016 KENDYJOSE HEARINGS REPORTER Ot H53.9 UNSPECIFIED VISUAL DISTURBANCE 03/08/2016 BAIMA, NATALIE L HEARINGS REPORTER Ot E03.9 HYPOTHYROIDISM, UNSPECIFIED 03/08/2016 BAIMA, NATALIE L HEARINGS REPORTER Ot E78.5 HYPERLIPIDEMIA, UNSPECIFIED 03/08/2016 BAIMA, NATALIE L HEARINGS REPORTER Ot E87.6 HYPOKALEMIA 03/08/2016 BAIMA, NATALIE L HEARINGS REPORTER Ot R00.2 PALPITATIONS 03/08/2016 BAIMA, NATALIE L HEARINGS REPORTER Ot R06.09 OTHER FORMS OF DYSPNEA 03/08/2016 BAIMA, NATALIE L HEARINGS REPORTER Ot E03.9 HYPOTHYROIDISM, UNSPECIFIED 03/08/2016 BAIMA, NATALIE L HEARINGS REPORTER Ot E78.5 HYPERLIPIDEMIA, UNSPECIFIED 03/08/2016 BAIMA, NATALIE L HEARINGS REPORTER Ot E87.6 HYPOKALEMIA 03/08/2016 BAIMA, NATALIE L HEARINGS REPORTER Ot R00.2 PALPITATIONS 03/08/2016 BAIMA, NATALIE L HEARINGS REPORTER Ot R06.09 OTHER FORMS OF DYSPNEA 03/09/2016 BAIMA, NATALIE L HEARINGS REPORTER Ot E03.9 HYPOTHYROIDISM, UNSPECIFIED 03/09/2016 BAIMA, NATALIE L HEARINGS REPORTER Ot E78.5 HYPERLIPIDEMIA, UNSPECIFIED 03/09/2016 BAIMA, NATALIE L HEARINGS REPORTER Ot E87.6 HYPOKALEMIA 03/09/2016 BAIMA, NATALIE L HEARINGS REPORTER Ot R00.2 PALPITATIONS 03/09/2016 BAIMA, NATALIE L HEARINGS REPORTER Ot R06.09 OTHER FORMS OF DYSPNEA 03/11/2016 BAIMA, NATALIE L HEARINGS REPORTER Ot E03.9 HYPOTHYROIDISM, UNSPECIFIED 03/11/2016 BAIMA, NATALIE L HEARINGS REPORTER Ot E78.5 HYPERLIPIDEMIA, UNSPECIFIED 03/11/2016 BAIMA, NATALIE L HEARINGS REPORTER Ot E87.6 HYPOKALEMIA 03/11/2016 BAIMA, NATALIE L HEARINGS REPORTER Ot R00.2 PALPITATIONS 03/11/2016 BAIMA, NATALIE L HEARINGS REPORTER Ot R06.09 OTHER FORMS OF DYSPNEA 10/11/2016 ANTWAN MITCHELL FILAMENT COIL WINDER Ot E66.9 OBESITY, UNSPECIFIED 10/11/2016 ANTWAN MITCHELL FILAMENT COIL WINDER Ot K02.9 DENTAL CARIES, UNSPECIFIED 10/11/2016 ANTWAN MITCHELL FILAMENT COIL WINDER Ot K08.9 DISORDER OF TEETH AND SUPPORTING STRUCTU 10/11/2016 ANTWAN MITCHELL FILAMENT COIL WINDER Ot R51 HEADACHE 10/11/2016 ANTWAN MITCHELL FILAMENT COIL WINDER Ot Z79.899 OTHER TOOL GRINDER SET UP OPERATOR GEAR (CURRENT) DRUG THERAPY 10/11/2016 JOSE LARRY HEARINGS REPORTER Ot H53.9 UNSPECIFIED VISUAL DISTURBANCE 10/11/2016 BAIMA, NATALIE L HEARINGS REPORTER Ot E03.9 HYPOTHYROIDISM, UNSPECIFIED 10/11/2016 BAIMA, NATALIE L HEARINGS REPORTER Ot E78.5 HYPERLIPIDEMIA, UNSPECIFIED 10/11/2016 BAIMA, NATALIE L HEARINGS REPORTER Ot E87.6 HYPOKALEMIA 10/11/2016 BAIMA, NATALIE L HEARINGS REPORTER Ot R00.2 PALPITATIONS 10/11/2016 BAIMA, NATALIE L HEARINGS REPORTER Ot R06.09 OTHER FORMS OF DYSPNEA 10/11/2016 BAIMA, NATALIE L HEARINGS REPORTER Ot E03.9 HYPOTHYROIDISM, UNSPECIFIED 10/11/2016 BAIMA, NATALIE L HEARINGS REPORTER Ot E78.5 HYPERLIPIDEMIA, UNSPECIFIED 10/11/2016 BAIMA, NATALIE L HEARINGS REPORTER Ot E87.6 HYPOKALEMIA 10/11/2016 BAIMA, NATALIE L HEARINGS REPORTER Ot R00.2 PALPITATIONS 10/11/2016 BAIMA, NATALIE L HEARINGS REPORTER Ot R06.09 OTHER FORMS OF DYSPNEA 10/12/2016 ANTWAN MITCHELL FILAMENT COIL WINDER Ot E66.9 OBESITY, UNSPECIFIED 10/12/2016 ANTWAN MITCHELL FILAMENT COIL WINDER Ot K02.9 DENTAL CARIES, UNSPECIFIED 10/12/2016 ANTWAN MITCHELL FILAMENT COIL WINDER Ot K08.9 DISORDER OF TEETH AND SUPPORTING STRUCTU 10/12/2016 ANTWAN MITCHELL FILAMENT COIL WINDER Ot R51 HEADACHE 10/12/2016 ANTWAN MITCHELL FILAMENT COIL WINDER Ot Z79.899 OTHER TOOL GRINDER 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 UP OPERATOR GEAR (CURRENT) DRUG THERAPY 10/17/2016 ANTWAN MITCHELL FILAMENT COIL WINDER Ot E66.9 OBESITY, UNSPECIFIED 10/17/2016 ANTWAN MITCHELL FILAMENT COIL WINDER Ot K02.9 DENTAL CARIES, UNSPECIFIED 10/17/2016 ANTWAN MITCHELL FILAMENT COIL WINDER Ot K08.9 DISORDER OF TEETH AND SUPPORTING STRUCTU 10/17/2016 ANTWAN MITCHELL FILAMENT COIL WINDER Ot R51 HEADACHE 10/17/2016 ANTWAN MITCHELL FILAMENT COIL WINDER Ot Z79.899 OTHER TOOL GRINDER SET UP OPERATOR GEAR (CURRENT) DRUG THERAPY Procedures Code Description [place] [address] A1C (IN-HOUSE) 36105 ROUTINE VENIPUNCTURE 08/10/2012 45125 UA W/ CULTURE IF INDICATED 08/10/2012 39109 CBC 08/10/2012 57365 CMP 08/10/2012 [id number] GFR CALC (RESULT ONLY) 08/10/2012 73684 LITHIUM 2012 31511 TSH 08/10/2012 12519 CULTURE URINE 04/2013 88417 PSYCH DIAGNOSTIC EVALUATION 08/21/2012 57071 TRICHOMONAS (IN-HOUSE) 09/17/2012 96013 CULTURE UROGENITAL 09/18/2012 50824 GC/CHLAM PROBE (STATE) 09/18/2012 08804 PAP SMEAR 2012 Q0091 PAP SMEAR OBTAIN SMEAR 09/18/2012 32648 PSYTX PT&/FAMILY 45 MINUTES 11/16/2012 93169 ROUTINE VENIPUNCTURE 02/12/2013 52803 CBC 02/12/2013 17055 FERRITIN 2012 40816 ROUTINE VENIPUNCTURE 03/08/2013 11377 PSYTX PT&/FAMILY 45 MINUTES 03/12/2013 34719 AMITRIPTYLINE 42455 ROUTINE VENIPUNCTURE 03/22/2013 77837 SLEEP STUDY 03/22 81910 CBC 03/22/2013 63049 CMP 03/22/2013 [id number] GFR CALC (RESULT ONLY) 03/22/2013 08185 LITHIUM 2012 87372 TSH 03/22/2013 91195 PSYTX PT&/FAMILY 30 MINUTES 04/08/2013 19139 PSYCH DIAG EVAL W/MED SRVCS 04/19/2013 45929 ROUTINE VENIPUNCTURE 04/25/2013 40254 LITHIUM 2012 22855 ROUTINE VENIPUNCTURE 10/25/2013 31629 A1C (IN-HOUSE) 03885 CBC 10/25/2013 38025 CMP 10/25/2013 47807 LIPID PANEL 10/25 [id number] GFR CALC (RESULT ONLY) 10/25/2013 10353 LITHIUM 2013 95606 TSH 10/25/2013 79615 AMITRIPTYLINE 13717 ROUTINE VENIPUNCTURE 04/07/2014 98858 TSH 04/07/2014 85880 XRAY KNEE RIGHT 1 OR 2 VIEWS 06/10/2014 Results Encounters ACCT No. Visit Date/Time Discharge Status Pt. Type Provider Facility Loc./Unit Complaint [id number] 10/11/2016 14:24:00 2016 14:43:00 DIS Emergency ANTWAN MITCHELL APRN [facility] ER TOOTHACHE,HEADACHE [id number] 01/13/2016 10:48:00 2015 13:36:00 DIS Emergency DARREN BRYANT DO [facility] ER BLURRED VISION [id number] 04/01/2013 19:42:00 2012 05:55:00 DIS Outpatient KATHARINE CALIX DO [facility] SLEEP RESTLESS LEG SYNDROME [id number] 02/23/2016 11:28:00 ACT Outpatient NATALIE HYLTON [facility] CARD HLP,PALPITATIONS,HYPOKALEMIA [id number] 02/22/2016 10:24:00 ACT Outpatient NATALIE HYLTON [facility] CARD EXERTIONAL DYSPNEA,PALPITATIONS,HLP,HYPOKALEMIA [id number] 01/11/2016 08:59:00 ACT Outpatient JOSE LARRY [facility] RAD VISUAL DISTURBANCE
[2016-12-29] MEDS ORDERED: LIDOCAINE 2% 20 ML (XYLOCAINE) VIAL ONE (18:30)
[2016-12-29] MEDS ORDERED: LIDOCAINE 2% VISCOUS 15 ML UDC PO ONE (19:15)
[2016-12-29] MEDS ORDERED: AMOX500C2 PO (19:16)
[2016-12-29] MEDS ORDERED: HYDR-3812 PO (19:16)
--- NOTE | 2016-12-29 19:16 | ED EENT ---
History of Present Illness General Chief Complaint: Dental Problems/Pain Stated Complaint: TOOTH PAIN Nursing Triage Note: patient reports L sided dental pain x 2 or 3 days Source: patient Exam Limitations: no limitations Allergies and Home Medications Allergies Coded Allergies: No Known Drug Allergies (Unverified , 12/29/16) Home Medications Gabapentin 600 Mg Tablet, 600 MG PO TIDAC, (Reported) Levothyroxine Sodium 100 Mcg Tablet, 100 MCG PO DAILY, (Reported) [place] Carbonate 300 Mg Tablet.er, 300 MG PO BID, (Reported) Loxapine Succinate 10 Mg Capsule, 10 MG PO BID, (Reported) Trazodone HCl 150 Mg Tablet, 150 MG PO HS, (Reported) Past Vresrdi-Tgdbym-Itdpvh Hx Patient Social History Alcohol Use: Denies Use Recreational Drug Use: No Smoking Status: Current Everyday Smoker Type Used: Cigarettes 2nd Hand Smoke Exposure: No Recent Foreign Travel: No Contact w/Someone Who Travel: No Recent Infectious Disease Expo: No Recent Hopitalizations: No Immunizations Up To Date Tetanus Booster (TDap): Unknown Surgeries HX Surgeries: Yes (LIVER BIOPSY) Surgeries: Section, Orthopedic Respiratory Hx Respiratory Disorders: Yes Respiratory Disorders: Sleep Apnea Cardiovascular Hx Cardiac Disorders: No Neurological Hx Neurological Disorders: Yes (NEUROPATHY FROM ALCOHOLISM; RESTLESSLEG SYNDROME) Neurological Disorders: Neuropathy Genitourinary Hx Genitourinary Disorders: No Gastrointestinal Hx Gastrointestinal Disorders: Yes (FATTY LIVER) Gastrointestinal Disorders: Liver Disease/Jaundice Musculoskeletal Hx Musculoskeletal Disorders: No Endocrine Hx Endocrine Disorders: Yes (OBESITY) Endocrine Disorders: Hypothyroidsim HEENT HX ENT Disorders: No Cancer Hx Cancer: No Psychosocial Hx Psychiatric Problems: Yes Behavioral Health Disorders: Anxiety, Bipolar, Depression Integumentary HX Skin/Integumentary Disorder: No Blood Transfusions Hx Blood Disorders: No Physical Exam Vital Signs Vital Sign - Last 12Hours 12/29/16 18:53 Temp 98.2 Pulse 84 Resp 18 B/P (MAP) 77/ Pulse Ox 100 O2 Flow Rate 157.00 Progress/Results/Core Measures Results/Orders My Orders Orders - JORDY LIND MD Lidocaine 2% Injection 20 Ml (Xylocaine (12/29/16 18:30) Lidocaine 2% Viscous 15 Ml (Xylocaine Vi (12/29/16 19:15) Vital Signs/I&O Vital Sign - Last 12Hours 12/29/16 18:53 Temp 98.2 Pulse 84 Resp 18 B/P (MAP) 77/ Pulse Ox 100 O2 Flow Rate 157.00 Departure Impression Impression: Primary Impression: Gingivitis Additional Impressions: Pain, dental Dental erosion Disposition: HOME, SELF-CARE Condition: Improved Departure-Patient Inst. Decision time for Depature: 19:00 Referrals: [facility] (PCP) Primary Care Physician JOSE LARRY (Family) Primary Care Physician Patient Instructions: Dental Pain (DC), Gingivitis (DC) Add. Discharge Instructions: [place] your teeth gently twice daily with a soft bristled toothbrush. Rinse after brushing with antiseptic mouth wash as tolerated. Complete your antibiotics as prescribed. Follow-up with a dentist as soon as possible to arrange extractions. Call and asked to be worked in if there are any cancellations. Return to care if symptoms worsen, especially if you develop fever. For mild pain take Tylenol (acetaminophen). For more severe pain you may take hydrocodone as prescribed. You may also use the anesthetic gauze pads provided. Use them with caution as they may numb the mouth, tongue, and throat. You should therefore drink and eat with extreme caution after use. Also do not fall sleep with gauze pads in the mouth as this is a choking hazard. All discharge instructions reviewed with patient and/or family. Voiced understanding. Scripts Hydrocodone/Acetaminophen (Hydrocodon -Acetaminophen 5-325) 1 Each Tablet 1 EACH PO Q4H Y for PAIN, #14 TAB Prov: JORDY LIND MD 12/29/16 Amoxicillin (Amoxicillin) 500 Mg Capsule 1000 MG PO BID, #40 CAP Prov: JORDY LIND MD 12/29/16 JORDY LIND MD Dec 29, 2016 19:16
[2016-12-29 19:25] VITALS: BP 157/77
== END 2016-12-29 19:24 | disposition home or self-care (01) ==
LOC: EDUNIT# 17:47 → ER 17:48
DX: K05.10 Chronic gingivitis, plaque induced (principal); E03.9 Hypothyroidism, unspecified; F17.210 Nicotine dependence, cigarettes, uncomplicated; Z79.899 Other long term (current) drug therapy
CPT/HCPCS: 99282

== ENCOUNTER 2017-10-05 18:51 | Emergency (ER) | payer SELFPAY ==
[~2017-10-05] VITALS: Ht 175.3 cm; Wt 156.0 kg
[~2017-10-05 18:51] MED LIST changes: +ACHD5005 PO; +NAPR-1071 PO; -NAPR500T PO
[2017-10-05] MEDS ORDERED: [UNRECOGNIZED DRUG - OTHER] IM (19:10)
--- NOTE | 2017-10-05 20:05 | Diagnostic Imaging Report ---
EXAM: SHOULDER, RIGHT, 3 VIEWS INDICATION: Right shoulder pain. COMPARISON: None. FINDINGS: No fracture or malalignment. Ill-defined radiopaque densities superior to the right greater trochanter. Soft tissue shadows are unremarkable. IMPRESSION: 1. Findings consistent with calcific tendinitis. 2. No malalignment Dictated by: Dictated on workstation # [id number]
--- NOTE | 2017-10-05 20:21 | ED Upper Extremity ---
General Chief Complaint: Upper Extremity Stated Complaint: R SHOULDER PAIN Nursing Triage Note: PT CO OF R SHOULDER PAIN FOR A COUPLE MONTHS, STATES FEEL LIKE BONE ON BONE. Nursing Sepsis Screen: No Definite Risk Source: patient Exam Limitations: no limitations History of Present Illness Date Seen by Provider: Oct 05, 2017 Time Seen by Provider: 20:17 Initial Comments to ER with right shoulder pain for 3 months. No known injury. Feels a grinding sensation like [id number]. Saw primary care at the onset of this was told it was arthritis. Has not followed up since. Onset: other Severity: moderate Pain/Injury Location: right shoulder Method of Injury: unknown Modifying Factors: Worse With Movement Allergies and Home Medications Allergies Coded Allergies: No Known Drug Allergies (Unverified , 12/29/16) Home Medications Gabapentin 600 Mg Tablet, 600 MG PO TIDAC, (Reported) Levothyroxine Sodium 100 Mcg Tablet, 100 MCG PO DAILY, (Reported) [place] Carbonate 300 Mg Tablet.er, 300 MG PO BID, (Reported) Loxapine Succinate 10 Mg Capsule, 10 MG PO BID, (Reported) Trazodone HCl 150 Mg Tablet, 150 MG PO HS, (Reported) [[place]] , Unknown Dose IM MONTHLY, (Reported) Patient Home Medication List Home Medication List Reviewed: Yes Constitutional: see HPI, No chills, No fever EENTM: see HPI Respiratory: no symptoms reported Cardiovascular: no symptoms reported Genitourinary: no symptoms reported Musculoskeletal: see HPI, joint pain, No joint swelling Skin: no symptoms reported Psychiatric/Neurological: No Symptoms Reported Past Gltjvby-Vtjher-Pgavcn Hx Patient Social History Alcohol Use: Denies Use Recreational Drug Use: No Smoking Status: Current Everyday Smoker Type Used: Cigarettes 2nd Hand Smoke Exposure: No Recent Foreign Travel: No Contact w/Someone Who Travel: No Recent Infectious Disease Expo: No Recent Hopitalizations: No Immunizations Up To Date Tetanus Booster (TDap): Unknown Past Medical History Surgeries: Yes (LIVER BIOPSY) Section, Orthopedic, Tubal Ligation Respiratory: Yes (tobaccoism) Sleep Apnea Cardiac: No Neurological: Yes (NEUROPATHY FROM ALCOHOLISM; RESTLESSLEG SYNDROME) Neuropathy Gastrointestinal: Yes (FATTY LIVER) Liver Disease/Jaundice Musculoskeletal: No Endocrine: Yes (OBESITY) Hypothyroidsim Cancer: No Psychosocial: Yes Anxiety, Bipolar, Schizophrenia, Depression Integumentary: No Blood Disorders: No Physical Exam Vital Signs Vital Signs - First Documented 4/5/18 19:03 Temp 97.9 Pulse 87 Resp 20 B/P (MAP) 145/107 (120) Pulse Ox 97 Capillary Refill : Less Than 3 Seconds General Appearance: WD/WN, no apparent distress HEENT: PERRL/EOMI, normal ENT inspection Neck: non-tender, full range of motion Respiratory: no respiratory distress, no accessory muscle use Gastrointestinal: normal bowel sounds, non tender Shoulder: normal inspection, non-tender, limited ROM Elbow/Forearm: normal inspection, non-tender, Right Wrist: Yes normal inspection, Yes non-tender Hand: normal inspection, non-tender, Right Neurologic/Psychiatric: alert, normal mood/affect, oriented x 3 Skin: normal color, warm/dry Progress/Results/Core Measures My Orders Orders - ANTWAN MITCHELL APRN Shoulder, Right, 3 Views (10/05/17 19:30) Vital Signs/I&O Vital Sign - Last 12Hours 10/05/17 19:03 Temp 97.9 Pulse 87 Resp 20 B/P (MAP) 145/107 (120) Pulse Ox 97 Blood Pressure Mean: 120 Departure Impression Primary Impression: Calcific tendinitis Disposition: HOME, SELF-CARE Condition: Stable Departure-Patient Inst. Decision time for Depature: 20:29 Referrals: [facility] ([place]) Primary Care Physician JOSE LARRY (Family) Primary Care Physician DUKE PATEL MD,TERE TROY,MADELINE SNOI,BERNIE Lee MD Patient Instructions: Calcific Tendonitis of the Shoulder (DC), How to Use a Shoulder Sling Add. Discharge Instructions: 1. Anti-inflammatories as directed 2. Return to ER for any concerns 3. Call one with [facility] your [facility] for follow-up care, he may benefit from a steroid injection in her shoulder. All discharge instructions reviewed with patient and/or family. Voiced understanding. Scripts Naproxen (Naprosyn) 500 Mg Tablet 500 MG PO BID Y for PAIN-MILD TO MODERATE, #20 TAB Prov: ANTWAN MITCHELL APRN 10/05/17 Work/School Note: Work Release Form Date Seen in the Emergency Department: Oct 05, 2017 Return to Work: Oct 06, 2017 Other Restrictions Listed Below: Right arm in sling until released. ANTWAN MITCHELL EXECUTIVE CANDIDATE DEVELOPER Oct 05, 2017 20:21
[2017-10-05] MEDS ORDERED: NAPR-1071 PO (20:32)
[2017-10-05] MEDS ORDERED: KETOROLAC 60 MG/2 ML VIAL IM ONE (20:45)
[2017-10-05 20:57] VITALS: BP 140/98
== END 2017-10-05 20:57 | disposition home or self-care (01) ==
LOC: ER 18:51
DX: M75.31 Calcific tendinitis of right shoulder (principal); G47.30 Sleep apnea, unspecified; G25.81 Restless legs syndrome; E66.9 Obesity, unspecified; E03.9 Hypothyroidism, unspecified; F41.9 Anxiety disorder, unspecified; F31.9 Bipolar disorder, unspecified; F20.9 Schizophrenia, unspecified; F17.210 Nicotine dependence, cigarettes, uncomplicated; Z98.51 Tubal ligation status; Z87.19 Personal history of other diseases of the digestive system; Z87.59 Personal history of other complications of pregnancy, childbirth and the puerperium; Z68.43 Body mass index [BMI] 50.0-59.9, adult
CPT/HCPCS: 73030; 96372

== ENCOUNTER 2018-09-02 13:54 | Emergency (ER) | payer SELFPAY ==
[~2018-09-02] VITALS: Ht 175.3 cm; Wt 145.1 kg
[~2018-09-02 13:54] MED LIST changes: -GABA600T2 PO; +GBPN600T PO; +[UNRECOGNIZED DRUG - OTHER] IM
[2018-09-02 14:16] LABS: BILIRUBIN,URINE NEGATIVE (NEGATIVE); CLARITY,URINE VERY CLOUDY; COLOR,URINE YELLOW; GLUCOSE, URINE (UA) 4+ (NEGATIVE); KETONES,URINE NEGATIVE (NEGATIVE); LEUKOCYTE ESTERASE ,URINE 3+ (NEGATIVE); NITRITE,URINE POSITIVE (NEGATIVE); PH,URINE 6 (5-9); PROTEIN,URINE 2+ (NEGATIVE); UROBILINOGEN,URINE NORMAL (NORMAL)
[2018-09-02] MEDS ORDERED: SULF1TAB35 PO (14:17)
--- NOTE | 2018-09-02 14:17 | ED GU-Female ---
General Stated Complaint: UTI SYMPTOMS Source: patient Exam Limitations: no limitations History of Present Illness Date Seen by Provider: Sep 02, 2018 Time Seen by Provider: 14:15 Initial Comments To ER per private vehicle with reports of a 2-3 week history of burning at the end of urination and low back pain as well as urinary frequency. She states that she has a urinary tract infection. No nausea vomiting fevers or chills. Timing/Duration: constant Severity/Quality: moderate Radiation: back Activities at Onset: none Prior Genitourinary Problems: none Associated Symptoms: No lower back pain Allergies and Home Medications Allergies Coded Allergies: No Known Drug Allergies (Unverified , 12/29/16) Home Medications Gabapentin 600 Mg Tablet, 600 MG PO TIDAC, (Reported) Levothyroxine Sodium 100 Mcg Tablet, 100 MCG PO DAILY, (Reported) [place] Carbonate 300 Mg Tablet.er, 300 MG PO BID, (Reported) Loxapine Succinate 10 Mg Capsule, 10 MG PO BID, (Reported) Naproxen 500 Mg Tablet, 500 MG PO BID PRN for PAIN-MILD TO MODERATE Prescribed by: ANTWAN MITCHELL on 10/05/172031 Trazodone HCl 150 Mg Tablet, 150 MG PO HS, (Reported) [Arescota] , Unknown Dose IM MONTHLY, (Reported) Patient Home Medication List Home Medication List Reviewed: Yes Review of Systems Review of Systems Constitutional: see HPI; No chills EENTM: see HPI Respiratory: no symptoms reported Cardiovascular: no symptoms reported Genitourinary: see HPI Musculoskeletal: see HPI, back pain Skin: no symptoms reported Psychiatric/Neurological: No Symptoms Reported Past Eowcozh-Ozypnw-Jqmjaw Hx Patient Social History Type Used: Cigarettes 2nd Hand Smoke Exposure: No Recent Foreign Travel: No Contact w/Someone Who Travel: No Recent Hopitalizations: No Immunizations Up To Date Tetanus Booster (TDap): Unknown Past Medical History Surgeries: Yes (LIVER BIOPSY) Section, Orthopedic, Tubal Ligation Respiratory: Yes (tobaccoism) Sleep Apnea Cardiac: No Neurological: Yes (NEUROPATHY FROM ALCOHOLISM; RESTLESSLEG SYNDROME) Neuropathy Gastrointestinal: Yes (FATTY LIVER) Liver Disease/Jaundice Musculoskeletal: No Endocrine: Yes (OBESITY) Hypothyroidsim Cancer: No Psychosocial: Yes Anxiety, Bipolar, Schizophrenia, Depression Integumentary: No Blood Disorders: No Physical Exam Vital Signs Capillary Refill : Height, Weight, BMI Height: 5'9.00" Weight: 344lbs. oz. 156.887070iv; BMI Method:Stated General Appearance: WD/WN, no apparent distress HEENT: PERRL/EOMI, normal ENT inspection Neck: non-tender, full range of motion Respiratory: no respiratory distress, no accessory muscle use Gastrointestinal: normal bowel sounds, non tender Extremities: normal range of motion, non-tender Neurologic/Psychiatric: alert, normal mood/affect, oriented x 3 Skin: normal color, warm/dry Progress/Results/Core Measures Suspected Sepsis SIRS Temperature: Pulse: Respiratory Rate: Blood Pressure / Mean: Results/Orders Lab Results Laboratory Tests Test 09/02/18 14:06 Range/Units My Orders Orders - ANTWAN MITCHELL APRN Ua Culture If Indicated (09/02/18 14:02) Urine Bedside (09/02/18 14:14) Vital Signs/I&O Capillary Refill : Departure Impression Primary Impression: Urinary tract infection Qualified Codes: N30.01 - Acute cystitis with hematuria Disposition: HOME, SELF-CARE Condition: Stable Departure-Patient Inst. Decision time for Depature: 14:16 Referrals: [facility]/ (PCP) Primary Care Physician JOSE LARRY (Family) Primary Care Physician Patient Instructions: Urinary Tract Infection, Adult (DC) Add. Discharge Instructions: 1. Return to ER for any concerns 2. Follow-up with your doctor next week 3. Scripts Sulfamethoxazole/Trimethoprim (Bactrim Ds Tablet) 1 Each Tablet 1 EACH PO BID, #14 TAB Prov: ANTWAN MITCHELL APRN 09/02/18 ANTWAN MITCHELL APRN Sep 02, 2018 14:17
[2018-09-02 14:36] LABS: BACTERIA,URINE MODERATE /HPF; WBC,URINE TNTC /HPF
[2018-09-02 14:37] LABS: TRICHOMONAS,URINE MODERATE /HPF
[2018-09-02 14:46] VITALS: BP 131/73
--- OUTSIDE RECORDS SUMMARY | 2018-09-02 17:44 | XMS REPORT ---
Author Author DIGNA GUERRERO [facility] Address [address] [place] [address] Care Team Providers Care Psych Nurse Name Role Phone DIGNA GUERRERO Unavailable PROBLEMS Type Condition ICD9-CM Code PUS44-ET Code Onset Dates Condition Status SNOMED Code Problem 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 Active 35018425 Problem Depressive disorder, not elsewhere classified F32.9 Active 04379786 Problem Chronic posttraumatic stress disorder F43.12 Active 787632660 Problem Insomnia G47.00 Active 204061695 Problem Obesity E66.9 Active 767665712 Problem Other chronic pain G89.29 Active 07666197 Problem Fatty liver K76.0 Active 159334241 Problem Abuse, drug or alcohol F19.10 Active 75134710 Problem Panic disorder without agoraphobia F41.0 Active 88919220 Problem Panic disorder F41.0 Active 084564015 Problem Hypothyroid E03.9 Active 92982464 Problem BMI 50.0-59.9, adult Z68.43 Active 836306709 Problem Restless legs syndrome G25.81 Active 971297954 Problem Encounter for therapeutic drug level monitoring Z51.81 Active 640336165 Problem Neuropathy G62.9 Active 304808061 Problem 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 Active 38106283 Problem Tachycardia R00.0 Active 5798288 Problem Murmur R01.1 Active 574194277 Problem Orthostatic hypertension I10 Active 04523742 Problem Shortness of breath R06.02 Active 114120993 Problem Sleep apnea in adult G47.33 Active 75002694 Problem Tunnel vision, unspecified laterality H53.489 Active 022479654 Problem Undifferentiated schizophrenia F20.3 Active 737354684 ALLERGIES No Information ENCOUNTERS Encounter Location Date Diagnosis [facility] [id number] [address] Jul, [facility] [id number] [address] Jun, [facility] [id number] [place] [address] 05280- 5466 Jun, [facility] [id number] [place] [address] 96372- 2081 Jun, [facility] [id number] [place] [address] 40477- 9071 May, Thyroid disorder E07.9 [facility] [id number] [place] [address] 28798- 9085 May, Undifferentiated schizophrenia F20.3 ; PTSD (post-traumatic stress disorder) F43.10 ; 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 ; Obesity E66.9 and BMI 50.0-59.9, adult Z68.43 [facility] [id number] [place] [address] 97026- 1293 May, [facility] [id number] [place] [address] 77846- 0720 May, [facility] [id number] [place] [address] 60191- 2669 May, [facility] [id number] [place] [address] 14051- 3842 Apr, [facility] [id number] [place] [address] 19769- 4466 Apr, [facility] [id number] [place] [address] 23646- 7316 Apr, Undifferentiated schizophrenia F20.3 ; 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 ; 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 and BMI 50.0-59.9, adult Z68.43 [facility] [address], [place] [address] Apr, [facility] [id number] [place] [address] 58141- 0319 Apr, Undifferentiated schizophrenia F20.3 [facility] [address], [place] [address] Mar, Undifferentiated schizophrenia F20.3 [facility] [id number] [address] 78[address] Mar, [facility] [id number] [place] [address] 86639- 3497 Mar, Undifferentiated schizophrenia F20.3 [facility] [id number] [place] [address] 67563- 4357 Jan, [facility] [id number] [place] [address] 82444- 3899 Jan, Undifferentiated schizophrenia F20.3 [facility] [id number] [place] [address] 84278- 3314 Jan, [facility] [id number] [place] [address] 91202- 4752 Jan, Undifferentiated schizophrenia F20.3 [facility] [id number] [place] [address] 17902- 2894 Dec, [facility] [id number] [place] [address] 27824- 6468 Dec, [facility] [address], [place] [address] 87[address] Dec, [facility] [id number] [place] [address] 34672- 0644 Dec, Undifferentiated schizophrenia F20.3 ; 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 ; Chronic posttraumatic stress disorder F43.12 and BMI 50.0- 59.9, adult Z68.43 [facility] [address], [place] [address] Dec, [facility] [address], [place] [address] 6251 Dec, Undifferentiated schizophrenia F20.3 ; Insomnia G47.00 and Thyroid disorder E07.9 [facility] [id number] [place] [address] 63824- 9821 Dec, Undifferentiated schizophrenia F20.3 [facility] [id number] [place] [address] 80032- 9233 18 Dec, 2017 [facility] [id number] [place] [address] 71829- 7831 15 Dec, 2017 [facility] [id number] [place] [address] 61978- 5196 14 Dec, 2017 BMI 50.0-59.9, adult Z68.43 ; Undifferentiated schizophrenia F20.3 ; Panic disorder without agoraphobia F41.0 and Chronic posttraumatic stress disorder F43.12 [facility] [id number] [place] [address] 25304- 0741 04 Dec, 2017 [facility] [id number] [place] [address] 30319- 2187 October, [facility] [id number] [place] [address] 10252- 4082 October, Pain in right shoulder M25.511 and Other chronic pain G89.29 [facility] [id number] [place] [address] 51592- 0056 October, Hypothyroid E03.9 [facility] [id number] [place] [address] 47979- 3349 Oct, Undifferentiated schizophrenia F20.3 [facility] [id number] [place] [address] 72816- 2093 Oct, [facility] [id number] [place] [address] 54161- 2796 Oct, [facility] [id number] [place] [address] 85655- 5440 Aug, Undifferentiated schizophrenia F20.3 [facility] [id number] [place] [address] 72717- 9772 Aug, [facility] [id number] [place] [address] 78838- 0512 Aug, Undifferentiated schizophrenia F20.3 ; 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 ; Chronic posttraumatic stress disorder F43.12 and BMI 50.0- 59.9, adult Z68.43 [facility] [id number] [place] [address] 09771- 7560 05 Aug, 2017 [facility] [id number] [place] [address] 39106- 3629 Aug, [facility] [address] 33947- 3547 Aug, Undifferentiated schizophrenia F20.3 [facility] [id number] [place] [address] 42365- 6451 Aug, Hypothyroid E03.9 [facility] [id number] [place] [address] 43864- 0685 Jul, Undifferentiated schizophrenia F20.3 [facility] [id number] [place] [address] 61542- 6246 Jul, [facility] [id number] [place] [address] 83172- 3352 Jul, Undifferentiated schizophrenia F20.3 ; Chronic posttraumatic stress disorder F43.12 ; 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 and BMI 50.0-59.9, adult Z68.43 [facility] [id number] [place] [address] 54802- 2504 15 Jul, 2017 [facility] [id number] [place] [address] 38822- 2594 08 Jul, 2017 Acute pain of right shoulder M25.511 ; High risk medication use Z79.899 ; Needle stick injury W27.3XXA ; Hypothyroid E03.9 and BMI 50.0-59.9 , adult Z68.43 [facility] [address] [place] [address]- 7808 Jun, Undifferentiated schizophrenia F20.3 [facility] [id number] [place] [address] 44932- 6498 Jun, Undifferentiated schizophrenia F20.3 ; Panic disorder without agoraphobia F41.0 ; Chronic posttraumatic stress disorder F43.12 and BMI 50.0-59.9, adult Z68.43 [facility] [id number] [place] [address] 48619- 5089 May, [facility] [id number] [place] [address] 32470- 5395 May, [facility] [id number] [place] [address] 77171- 3034 24 May, 2017 Undifferentiated schizophrenia F20.3 [facility] [id number] [place] [address] 26602- 5134 May, [facility] [id number] [place] [address] 28832- 6331 May, [facility] [id number] [place] [address] 17049- 7500 15 May, 2017 Hypothyroid E03.9 [facility] [id number] [place] [address] 19630- 7419 13 May, 2017 [facility] [id number] [place] [address] 80475- 6807 10 May, 2017 [facility] [id number] [place] [address] 01485- 4664 07 May, 2017 Chronic posttraumatic stress disorder F43.12 ; 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 ; Undifferentiated schizophrenia F20.3 ; BMI 40.0-44.9, adult Z68.41 and Obesity E66.9 [facility] [id number] [place] [address] 17401- 1514 07 May, 2017 Shortness of breath R06.02 [facility] [id number] [address]- 7516 May, [facility] [id number] [place] [address] 70608- 5234 Apr, Undifferentiated schizophrenia F20.3 [facility] [id number] [place] [address] 31871- 4609 Apr, [facility] [id number] [place] [address] 40340- 6448 Apr, [facility] [id number] [place] [address] 70913- 5765 Mar, Undifferentiated schizophrenia F20.3 ; Panic disorder without agoraphobia F41.0 and Chronic posttraumatic stress disorder F43.12 [facility] [id number] [place] [address] 43998- 0414 Mar, Undifferentiated schizophrenia F20.3 [facility] [id number] [place] [address] 23342- 0290 18 Mar, 2017 [facility] [id number] [place] [address] 11843- 4618 08 Mar, 2017 [facility] [id number] [place] [address] 73254- 0933 07 Mar, 2017 [facility] [id number] [place] [address] 55349- 7005 Jan, Undifferentiated schizophrenia F20.3 [facility] [id number] [place] [address] 82010- 9317 Jan, [facility] [id number] [place] [address] 61668- 5615 Jan, [facility] [id number] [place] [address] 42931- 6099 Jan, [facility] [id number] [place] [id number] Dec, Needle stick injury W27.3XXA [facility] [id number] [address]- 7643 Dec, Needle stick injury W27.3XXA [facility] [id number] [place] [address] 38260- 6717 Dec, Undifferentiated schizophrenia F20.3 [facility] [id number] [place] [address] 52583- 9675 Dec, [facility] [id number] [place] [address] 34022- 5810 Dec, [facility] [id number] [place] [address] 15326- 2695 Dec, Undifferentiated schizophrenia F20.3 ; 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 and Chronic posttraumatic stress disorder F43.12 [facility] [id number] [place] [address] 75825- 1712 Dec, [facility] [id number] [place] [address] 78494- 8656 October, [facility] [id number] [place] [address] 04832- 8431 October, Undifferentiated schizophrenia F20.3 [facility] [id number] [place] [address] 61180- 3134 October, [facility] [id number] [place] [address] 19624- 3612 October, [facility] [id number] [place] [address] 74417- 1983 Oct, Undifferentiated schizophrenia F20.3 ; 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 ; Chronic posttraumatic stress disorder F43.12 and Obesity E66.9 [facility] [id number] [place] [address] 19587- 1530 Oct, [facility] [id number] [place] [address] 28056- 9332 Oct, [facility] [id number] [place] [address] 19288- 2624 Aug, Undifferentiated schizophrenia F20.3 [facility] [id number] [place] [address] 64092- 6416 Aug, [facility] [id number] [place] [address] 19491- 2597 13 Aug, 2016 Muscle spasm M62.838 [facility] [id number] [place] [address] 97806- 8074 06 Aug, 2016 Undifferentiated schizophrenia F20.3 [facility] [id number] [place] [address] 52270- 0429 Aug, Undifferentiated schizophrenia F20.3 ; 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 ; Chronic posttraumatic stress disorder F43.12 ; High risk medication use Z79.899 and 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 [facility] [id number] [place] [address] 98395- 6703 Aug, Undifferentiated schizophrenia F20.3 [facility] [id number] [place] [address] 99111- 6071 Aug, [facility] [id number] [place] [address] 08652- 2752 14 Aug, 2016 Acute non-recurrent maxillary sinusitis J01.00 [facility] [id number] [place] [address] 63980- 5490 Aug, [facility] [id number] [place] [address] 46890- 2091 Aug, [facility] [id number] [place] [address] 41567- 6259 Jul, Undifferentiated schizophrenia F20.3 [facility] [id number] [place] [address] 42604- 7467 Jul, Schizophrenia, undifferentiated F20.3 ; 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 ; Post-traumatic stress disorder F43.10 ; Panic disorder F41.0 and Depressive disorder, not elsewhere classified F32.9 [facility] [id number] [place] [address] 03103- 7987 Jul, [facility] [id number] [place] [address] 37393- 8882 Jul, Schizophrenia, undifferentiated F20.3 ; 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 ; Post-traumatic stress disorder F43.10 ; Panic disorder F41.0 and Depressive disorder, not elsewhere classified F32.9 [facility] [id number] [place] [address] 22961- 9545 Jul, [facility] [id number] [place] [address] 45538- 5837 Jul, Undifferentiated schizophrenia F20.3 ; 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 ; 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 ; Obesity E66.9 and Chronic posttraumatic stress disorder F43.12 [facility] [id number] [place] [address] 87452- 3775 Jun, [facility] [id number] [place] [address] 63384- 1000 Jun, [facility] [id number] [place] [address] 09013- 0108 Jun, Dental caries K02.9 [facility] [id number] [place] [address] 41347- 5651 Jun, Undifferentiated schizophrenia F20.3 [facility] [id number] [place] [address] 58178- 8861 May, [facility] [id number] [place] [address] 64574- 7042 May, Undifferentiated schizophrenia F20.3 ; 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 and Chronic post-traumatic stress disorder (PTSD) F43.12 [facility] [id number] [place] [address] 27323- 5397 May, [facility] [id number] [place] [address] 53517- 5277 May, Undifferentiated schizophrenia F20.3 [facility] [id number] [place] [address] 03735- 1169 May, [facility] [id number] [place] [address] 94941- 4317 07 May, 2016 Dental examination Z01.20 [facility] [id number] [place] [address] [phone] Apr, Undifferentiated schizophrenia F20.3 ; PTSD (post-traumatic stress disorder) F43.10 and Obesity E66.9 [facility] [id number] [place] [address] [phone] Apr, [facility] [id number] [place] [address] [phone] 15 Mar, 2016 [facility] [id number] [place] [address] [phone] Mar, [facility] [id number] [place] [address] [phone] Jan, Shortness of breath R06.02 and Bipolar disorder with psychotic features F31.9 [facility] [id number] [place] [address] [phone] Jan, [facility] [id number] [place] [address] [phone] Jan, Increased intracranial pressure G93.2 ; Visual disturbance H53.9 and Bipolar II disorder F31.81 [facility] [id number] [place] [address] [phone] Jan, [facility] [address] [id number] [place] [address] 64736- 7999 Jan, [facility] [id number] [place] [address] 40492- 5488 Jan, [facility] [id number] [place] [address] 24680- 7424 Jan, Acquired hypothyroidism E03.9 ; Depression F32.9 and Insomnia G47.[address] 90886- 3981 Jan, Exertional dyspnea R06.09 ; Heart palpitations R00.2 ; Hyperlipidemia, unspecified hyperlipidemia type E78.5 ; Hypothyroidism, unspecified type E03.9 and Hypokalemia E87.[address] 44370- 4603 Dec, PTSD (post-traumatic stress disorder) F43.10 ; Depression F32.9 ; Insomnia G47.00 and Bipolar disorder with psychotic features F31.[address] 63870- 1796 Dec, Increased intracranial pressure G93.[address] 56291- 8875 Dec, [place] [address] 35073- 5621 Dec, Shortness of breath R06.[address] 21403- 1298 Dec, Visual disturbance H53.9 and Headache, unspecified headache type R51 [address] 17525- 8472 Dec, Insomnia G47.[address] 94309- 2266 Dec, Murmur R01.[address] 55728- 3406 Dec, Murmur R01.1 ; Tunnel vision, unspecified laterality H53.489 ; Orthostatic hypertension I10 ; Shortness of breath R06.02 and Tachycardia R00.[address] 23302- 6277 Dec, [facility] [id number] [place] [address] 00523- 0988 Dec, Hypothyroid E03.9 and Bipolar 1 disorder F31.9 [facility] [id number] [place] [address] 48180- 7431 Dec, Bipolar 1 disorder F31.9 [facility] [id number] [place] [address] 01104- 7931 Dec, [facility] [id number] [place] [address] 21715- 8111 October, Acquired hypothyroidism E03.9 ; Depression F32.9 and Insomnia G47.00 [facility] [id number] [place] [address] 75820- 1974 October, [facility] [id number] [place] [address] 79503- 6912 October, Bipolar 1 disorder F31.9 ; PTSD (post-traumatic stress disorder) F43.10 and 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 [facility] [id number] [place] [address] 65586- 4627 Oct, Bipolar 1 disorder F31.9 and Insomnia G47.00 [facility] [id number] [place] [address] 72018- 2815 Oct, [facility] [id number] [place] [address] 57917- 4990 Oct, [facility] [id number] [place] [address] 34413- 1288 Aug, Hypothyroid E03.9 [facility] [id number] [place] [address] 68805- 0897 Aug, Encounter for therapeutic drug level monitoring Z51.81 and Other intermediate card tender (current) drug therapy Z79.899 [facility] [id number] [place] [address] 07330- 6462 Aug, Encounter for therapeutic drug level monitoring Z51.81 [facility] [id number] [place] [address] 58269- 1664 Aug, Acquired hypothyroidism E03.9 ; Leg pain M79.606 and Bipolar 1 disorder F31.9 [facility] [id number] [place] [address] 73535- 6430 Aug, [facility] [address] 11243- 7193 Aug, [facility] [id number] [place] [address] 22439- 3806 Jul, Thyroid disorder E07.9 [facility] [id number] [place] [address] 09411- 8612 Jul, Rash R21 ; Abnormal LFTs R94.5 ; Acquired hypothyroidism E03.9 ; Sleep apnea in adult G47.33 and Fatty liver K76.0 [facility] [id number] [place] [address] 52902- 2652 Jun, [facility] [id number] [place] [address] 84742- 2763 Jun, [facility] [id number] [place] [address] 50535- 2622 Jun, Bipolar II disorder F31.81 and Social phobia, generalized F40.11 [facility] [id number] [place] [address] 87528- 2941 Mar, Bipolar II disorder 296.89 and Social phobia 300.23 [facility] [id number] [place] [address] 95042- 9414 Dec, [facility] [id number] [place] [address] 07212- 2734 Dec, [facility] [id number] [place] [address] 59804- 7396 Dec, Bipolar II disorder in partial or unspecified remission 296.89 and Social phobia, generalized 300.23 [facility] [address] [facility] [id number] [place] [address]- 2788 30 Oct, 2014 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 [facility] [address] [facility] [id number] [place] [address]- 5749 14 Oct, 2014 [facility] [address] [facility] [id number] [place] [address]- 2489 Oct, [facility] [address] [facility] [id number], [place] [address]- 9739 Aug, [facility] [address] [facility] [id number] [place] [address]- 5165 Aug, [facility] [address] [facility] [id number] [place] [address]- 2928 Aug, [facility] [address] [place] [address]- 8237 Aug, [facility] [address] [id number] [address]- 7527 Aug, [facility] [address] [facility] [id number] [place] [address]- 0020 Aug, [facility] [address] [id number], [place] [address]- 0732 Aug, [facility] [address] [id number], [place] [address]- 7369 Aug, [facility] [place] [facility] [address] [facility] [id number], [place] [address]- 8435 Jul, [facility] [place] [facility] [address] [facility] [id number] [place] [address]- 7352 Jul, [facility] [place] [facility] [address] [facility] [id number], [place] [address]- 2012 Jul, [facility] [place] [facility] [address] [id number], [place] [address]- 8406 Jul, [facility] [place] [facility] [address] [id number] [place] [address]- 7464 Jul, [facility] [place] [facility] [address] [id number] [place] [address]- 4268 Jul, [facility] [place] [facility] [address] [id number] [place] [address]- 5040 Jun, [facility] [place] [facility] [address] [id number] [place] [address]- 5999 Jun, [facility] [place] [facility] [address] [id number] [place] [address]- 4570 Jun, [facility] [place] [facility] [address] [id number] [place] [address]- 1521 Jun, [facility] [place] [facility] [address] [id number] [place] 2936 Jun, [facility] [place] [facility] [address] [id number] [place] [address]- 5626 Jun, [facility] [place] [facility] [address] [id number] [place] [address]- 0868 Jun, [facility] [place] [facility] [address] [id number] [place] [address]- 5609 Jun, [facility] [place] [facility] [address] [id number] [place] 7371 Jun, [facility] [place] [facility] [address] [id number] [place] [address]- 6381 Jun, [facility] [place] [facility] [address] [id number] [place] [address]- 8463 Jun, [facility] [place] [facility] [address] [id number] [place] [address]- 8328 Jun, [facility] [place] [facility] [address] [id number] [place] [address]- 0547 Jun, [facility] [place] [facility] [address] [id number] [place] [address]- 2422 Jun, [facility] [place] [facility] [address] [id number] [place] 5729 Jun, [facility] [place] [facility] [address] [id number] [place] [address]- 5734 Jun, [facility] [place] [facility] [address] [id number] [place] [address]- 5166 May, [facility] [place] [facility] [address] [id number] [place] [address]- 5514 May, [facility] [place] [facility] [address] [id number] [place] [address]- 1368 May, [facility] [place] [facility] [address] [id number] [place] [address]- 2488 May, [facility] [place] [facility] [address] [id number] [place] [address]- 9457 May, [facility] [place] [facility] [address] [id number], [place] [address]- 1002 May, [facility] [place] [facility] [address] [id number] [place] [address]- 1695 Apr, [facility] [place] [facility] [address] [id number], [place] [address]- 0584 Apr, [facility] [place] [facility] [address] [id number], [place] [address]- 9369 Apr, [facility] [place] [facility] [address] [id number], [place] [address]- 7653 Apr, [facility] [place] [facility] [address] [id number], [place] [address]- 4775 Apr, [facility] [place] [facility] [address] [id number], [place] [address]- 0334 Apr, [facility] [place] [facility] [address] [id number], [place] [address]- 8330 Mar, [facility] [place] [facility] [address] [id number] [place] [address]- 0871 Mar, [facility] [place] [facility] [address] [id number] [place] [address]- 9700 Mar, [facility] [place] [facility] [address] [id number] [place] [address]- 7308 Mar, [facility] [place] [facility] [address] [id number] [place] [address]- 6231 Jan, [facility] [place] [facility] [address] [id number] [place] [address]- 6904 Jan, [facility] [place] [facility] [address] [id number] [place] [address]- 4369 Jan, [facility] [place] [facility] [address] [id number] [place] [address]- 9905 Jan, [facility] [place] [facility] [address] [id number] [place] [address]- 5524 Jan, [facility] [place] [facility] [address] [id number] [place] [address]- 2644 Jan, [facility] [place] [facility] [address] [id number] [place] [address]- 4716 Dec, [facility] [place] [facility] [address] [id number] [place] [address]- 4118 Dec, [facility] [place] [facility] [address] [id number] [place] [address]- 4895 Dec, [facility] [place] [facility] [address] [id number] [place] [address]- 0821 Dec, [facility] [place] [facility] [address] [id number] [place] [address]- 5378 Dec, [facility] [place] [facility] [address] [id number] [place] [address]- 3498 Dec, [facility] [place] [facility] [address] [id number] [place] [address]- 7420 October, [facility] [place] [facility] [address] [id number] [place] [address]- 3758 October, [facility] [place] [facility] [address] [id number] [place] [address]- 8443 October, [facility] [place] [facility] [address] [id number] [place] [address]- 6607 October, [facility] [place] [facility] [address] [id number] [place] [address]- 4542 October, [facility] [place] [facility] [address] [id number] [place] [address]- 0515 October, [facility] [place] [facility] [address] [id number] [place] [address]- 9872 October, [facility] [place] [facility] [address] [id number] [place] [address]- 9637 October, [facility] [place] [facility] [address] [id number] [place] [address]- 2931 Oct, [facility] [place] [facility] [address] [id number] [place] [address]- 4628 Oct, [facility] [place] [facility] [address] [id number] [place] [address]- 9099 Oct, [facility] [place] [facility] [address] [id number] [place] [address]- 8265 Oct, [facility] [place] [facility] [address] [id number] [place] [address]- 0500 Oct, [facility] [place] [facility] [address] [id number] [place] [address]- 2570 Aug, [facility] [place] [facility] [address] [id number] [place] [address]- 0258 Aug, [facility] [place] [facility] [address] [id number] [place] [address]- 1716 Aug, [facility] [place] [facility] [address] [id number] [place] [address]- 0115 Aug, [facility] [address] [id number] [place] [address]- 3851 Aug, [facility] [place] [facility] [address] [id number] [place] 0963 07 Aug, 2013 [facility] [place] [facility] [address] [facility] [id number] [place] [address]- 1621 Jul, [facility] [place] [facility] [address] [id number] [place] [address]- 5884 Jul, [facility] [place] [facility] [address] [id number] [place] [address]- 1328 Jul, [facility] [place] [facility] [address] [id number] [place] [address]- 4209 Jul, [facility] [address] [facility] [id number] [place] [address]- 4259 Jul, [facility] [place] [facility] [address] [facility] [id number] [place] [address]- 1658 Jul, [facility] [place] [facility] [address] [facility] [id number] [place] [address]- 8580 Jun, [facility] [place] [facility] [address] [facility] [id number] [place] [address]- 7832 Jun, [facility] [place] [facility] [address] [id number] [place] [address]- 1524 Jun, [facility] [place] [facility] [address] [id number] [place] [address]- 3374 Jun, [facility] [place] [facility] [address] [id number] [place] [address]- 3697 Jun, [facility] [place] [facility] [address] [id number] [place] [address]- 9835 Jun, [facility] [place] [facility] [address] [facility] [id number] [place] [address]- 2975 May, [facility] [place] [facility] [address] [id number] [place] [address]- 7955 May, [facility] [place] [facility] [address] [id number] [place] [address]- 2527 24 Apr, 2013 [facility] [place] [facility] [address] [id number] [place] [address]- 1444 Apr, [facility] [place] [facility] [address] [id number] [place] [address]- 6323 Apr, [facility] [place] [facility] [address] [id number] [place] [address]- 5182 Apr, [facility] [place] [facility] [address] [id number] [place] [address]- 0804 Apr, [facility] [place] [facility] [address] [id number] [place] [address]- 5649 Apr, [facility] [place] [facility] [address] [id number] [place] [address]- 4079 Apr, [facility] [place] [facility] [address] [id number] [place] [address]- 0131 Apr, [facility] [place] [facility] [address] [id number] [place] [address]- 5048 Apr, [facility] [place] [facility] [address] [id number] [place] [address]- 8605 Apr, [facility] [place] [facility] [address] [id number] [place] [address]- 8082 02 Apr, 2013 [facility] [place] [facility] [address] [id number] [place] [address]- 8538 23 Mar, 2012 [facility] [place] [facility] [address] [id number] [place] [address]- 8130 20 Mar, 2012 [facility] [place] [facility] [address] [id number] [place] [address]- 6745 20 Mar, 2012 [facility] [place] [facility] [address] [id number] [place] [address]- 5472 14 Mar, 2013 [facility] [place] [facility] [address] [id number] [place] [address]- 7706 12 Mar, 2013 [facility] [place] [facility] [address] [id number] [place] [address]- 9053 Mar, [facility] [place] [facility] [address] [id number] [place] [address]- 9235 Mar, [facility] [place] [facility] [address] [id number] [place] [address]- 3693 Jan, [facility] [place] [facility] [address] [id number] [place] [address]- 1424 Jan, [facility] [place] [facility] [address] [id number] [place] [address]- 2059 Jan, [facility] [place] [facility] [address] [id number] [place] [address]- 0710 Jan, [facility] [place] [facility] [address] [id number] [place] [address]- 3881 Jan, [facility] [place] [facility] [address] [id number] [place] [address]- 0600 Jan, [facility] [place] [facility] [address] [id number] [place] [address]- 9018 Jan, [facility] [place] [facility] [address] [id number] [place] [address]- 8845 Dec, [facility] [place] [facility] [address] [id number] [place] [address]- 0021 Dec, [facility] [place] [facility] [address] [id number] [place] [address]- 0028 Dec, [facility] [place] [facility] [address] [id number] [place] [address]- 8091 Dec, [facility] [place] [facility] [address] [id number] [place] [address]- 9847 Dec, [facility] [place] [facility] [address] [id number] [place] [address]- 4261 08 Dec, 2012 [facility] [address] [id number] [place] [address]- 6815 17 Oct, 2012 [facility] [address] [id number] [place] [address]- 4104 October, [facility] [address] [id number] [place] [address]- 7585 October, [facility] [address] [id number] [place] [address]- 5631 October, [facility] [address] [id number] [place] [address]- 5792 Oct, [facility] [address] [id number] [place] [address]- 7261 Oct, [facility] [address] [id number] [place] [address]- 2093 27 Aug, 2012 [facility] [address] [id number] [place] [address]- 6961 Aug, [facility] [address] [id number] [place] [address]- 8116 Aug, [facility] [address] [id number] [place] [address]- 2540 Aug, [facility] [address] [id number] [place] [address]- 7652 18 Aug, 2012 [facility] [address] [id number] [place] [address]- 0107 Aug, [facility] [address] [id number] [place] [address] Aug, [facility] [address] [id number] [place] [address] Aug, [facility] [address] [id number] [place] [address] Aug, [facility] [address] [facility] [id number], [place] [address] Aug, [facility] [address] [facility] [id number] [place] [address] Aug, [facility] [address] [facility] [id number], [place] [address] Aug, [facility] [address] [facility] [id number], [place] [address] Aug, [facility] [address] [facility] [id number] [place] [address] Aug, [facility] [address] [facility] [id number], [place] [address] Jul, [facility] [id number], [place] [address] Jul, [facility] [id number], [place] [address] Jul, [facility] [id number], [place] [address] Jul, [facility] [id number], [place] [address] Jun, [facility] [address] [id number], [place] [address] Jun, [facility] [address] [facility] [id number], [place] [address] Jun, [facility] [address] [id number], [place] [address] Jun, [facility] [id number], [place] [address] May, [facility] [address] [id number], [place] [address] May, IMMUNIZATIONS No Known Immunizations SOCIAL HISTORY Never Assessed REASON FOR VISIT Pals renewal PLAN OF CARE VITAL SIGNS MEDICATIONS Unknown Medications RESULTS No Results PROCEDURES No Known procedures INSTRUCTIONS MEDICATIONS ADMINISTERED No Known Medications MEDICAL (GENERAL) HISTORY Type Description Date Medical History depression Medical History mood disorder Medical History obesity Medical History bipolar disorder Medical History sleep apnea Medical History Hypothyroidism Medical History headache Medical History insomnia Medical History social anxiety disorder Medical History neuropathy r/t alcoholism Medical History Fatty liver Medical History Fatty liver Medical History Abuse, drug or alcohol Medical History Depression Medical History Insomnia Medical History Bipolar disorder with psychotic features Medical History Bipolar 1 disorder Medical History Post-traumatic stress disorder Surgical History tubal ligation Surgical History section x3 Surgical History orthopedic surgery right ankle
--- OUTSIDE RECORDS SUMMARY | 2018-09-02 17:45 | XMS REPORT ---
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 Name Role Phone DIGNA GUERRERO Unavailable PROBLEMS Type Condition ICD9-CM Code MIC78-YD Code Onset Dates Condition Status SNOMED Code Problem 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 Active 41822844 Problem Depressive disorder, not elsewhere classified F32.9 Active 28087109 Problem Chronic posttraumatic stress disorder F43.12 Active 040126166 Problem Insomnia G47.00 Active 186234883 Problem Obesity E66.9 Active 265177964 Problem Other chronic pain G89.29 Active 23378124 Problem Fatty liver K76.0 Active 734823627 Problem Abuse, drug or alcohol F19.10 Active 21137443 Problem Panic disorder without agoraphobia F41.0 Active 12634675 Problem Panic disorder F41.0 Active 767299775 Problem Hypothyroid E03.9 Active 96022959 Problem BMI 50.0-59.9, adult Z68.43 Active 331639012 Problem Restless legs syndrome G25.81 Active 425799576 Problem Encounter for therapeutic drug level monitoring Z51.81 Active 754347566 Problem Neuropathy G62.9 Active 211863554 Problem 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 Active 48031557 Problem Tachycardia R00.0 Active 7907738 Problem Murmur R01.1 Active 055437801 Problem Orthostatic hypertension I10 Active 63427158 Problem Shortness of breath R06.02 Active 756120379 Problem Sleep apnea in adult G47.33 Active 05216585 Problem Tunnel vision, unspecified laterality H53.489 Active 915917175 Problem Undifferentiated schizophrenia F20.3 Active 408717718 ALLERGIES No Information ENCOUNTERS Encounter Location Date Diagnosis [facility] [id number], [place] [address] Jul, [facility] [id number] [place] [address] 57027- 6143 Jun, [facility] [id number] [place] [address] 34249- 9567 Jun, [facility] [id number] [place] [address] 84269- 9315 May, Thyroid disorder E07.9 [facility] [address] 37234- 7928 May, Undifferentiated schizophrenia F20.3 ; PTSD (post-traumatic stress disorder) F43.10 ; 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 ; Obesity E66.9 and BMI 50.0-59.9, adult Z68.43 [facility] [id number] [place] [address] 41681- 6445 May, [facility] [id number] [place] [address] 66335- 7148 May, [facility] [id number] [place] [address] 91200- 4657 May, [facility] [id number] [place] [address] 32622- 1217 Apr, [facility] [id number] [place] [address] 83196- 6408 Apr, [facility] [id number] [place] [address] 43165- 0088 Apr, Undifferentiated schizophrenia F20.3 ; 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 ; 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 and BMI 50.0-59.9, adult Z68.43 [facility] [id number] [place] [address] 29862- 1136 Apr, [facility] [id number] [place] [address] 62859- 2055 Apr, Undifferentiated schizophrenia F20.3 [facility] [id number] [place] [address] 01510- 8157 Mar, Undifferentiated schizophrenia F20.3 [facility] [id number] [place] [address] 27166- 4053 Mar, [facility] [id number] [place] [address] 61763- 0933 Mar, Undifferentiated schizophrenia F20.3 [facility] [id number] [place] [address] 29312- 1420 Jan, [facility] [id number] [place] [address] 20889- 0868 Jan, Undifferentiated schizophrenia F20.3 [facility] [id number] [place] [address] 22855- 3428 Jan, [facility] [id number] [place] [address] 34631- 1266 Jan, Undifferentiated schizophrenia F20.3 [facility] [id number] [place] [address] 31435- 2821 Dec, [facility] [id number] [place] [address] 75814- 3714 Dec, [facility] [id number] [place] [address] 59351- 3603 Dec, [facility] [id number] [place] [address] 51824- 2184 Dec, Undifferentiated schizophrenia F20.3 ; 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 ; Chronic posttraumatic stress disorder F43.12 and BMI 50.0- 59.9, adult Z68.43 [facility] [id number] [place] [address] 25386- 8899 Dec, [facility] [id number] [place] [address] 39844- 8828 Dec, Undifferentiated schizophrenia F20.3 ; Insomnia G47.00 and Thyroid disorder E07.9 [facility] [id number] [place] [address] 24636- 7643 20 Dec, 2017 Undifferentiated schizophrenia F20.3 [facility] [id number] [place] [address] 21322- 9107 18 Dec, 2017 [facility] [id number] [place] [address] 17746- 3309 15 Dec, 2017 [facility] [id number] [place] [address] 02672- 8780 14 Dec, 2017 BMI 50.0-59.9, adult Z68.43 ; Undifferentiated schizophrenia F20.3 ; Panic disorder without agoraphobia F41.0 and Chronic posttraumatic stress disorder F43.12 [facility] [id number] [place] [address] 36398- 2458 04 Dec, 2017 [facility] [id number] [place] [address] 19839- 0506 October, [facility] [id number] [place] [address] 29038- 9853 October, Pain in right shoulder M25.511 and Other chronic pain G89.29 [facility] [id number] [place] [address] 96995- 0382 October, Hypothyroid E03.9 [facility] [id number] [place] [address] 09828- 9877 Oct, Undifferentiated schizophrenia F20.3 [facility] [id number] [place] [address] 97707- 7766 Oct, [facility] [id number] [place] [address] 39328- 8880 Oct, [facility] [id number] [place] [address] 22517- 1450 Aug, Undifferentiated schizophrenia F20.3 [facility] [id number] [place] [address] 22569- 8455 Aug, [facility] [id number] [place] [address] 53891- 8963 Aug, Undifferentiated schizophrenia F20.3 ; 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 ; Chronic posttraumatic stress disorder F43.12 and BMI 50.0- 59.9, adult Z68.43 [facility] [address], [place] [address] 3423 05 Aug, 2017 [facility] [id number] [place] [address] 90275- 8102 Aug, [facility] [id number] [place] [address] 44294- 6752 Aug, Undifferentiated schizophrenia F20.3 [facility] [id number] [place] [address] 88551- 3322 Aug, Hypothyroid E03.9 [facility] [id number] [place] [address] 78001- 4202 Jul, Undifferentiated schizophrenia F20.3 [facility] [id number] [place] [address] 65422- 5922 Jul, [facility] [id number] [place] [address] 19778- 2335 Jul, Undifferentiated schizophrenia F20.3 ; Chronic posttraumatic stress disorder F43.12 ; 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 and BMI 50.0-59.9, adult Z68.43 [facility] [id number] [place] [address] 99813- 4264 15 Jul, 2017 [facility] [id number] [place] [address] 54774- 7986 08 Jul, 2017 Acute pain of right shoulder M25.511 ; High risk medication use Z79.899 ; Needle stick injury W27.3XXA ; Hypothyroid E03.9 and BMI 50.0-59.9 , adult Z68.43 [facility] [address] [place] [address] 88340- 0307 Jun, Undifferentiated schizophrenia F20.3 [facility] [id number] [place] [address] 30058- 5289 14 Jun, 2017 Undifferentiated schizophrenia F20.3 ; Panic disorder without agoraphobia F41.0 ; Chronic posttraumatic stress disorder F43.12 and BMI 50.0-59.9, adult Z68.43 [facility] [id number] [place] [address] 23926- 9865 May, [facility] [address] 83287- 2654 May, [facility] [id number] [place] [address] 90451- 2573 May, Undifferentiated schizophrenia F20.3 [facility] [address] 91633- 4319 May, [facility] [id number] [place] [address] 52170- 5688 May, [facility] [id number] [place] [address] 24474- 2796 May, Hypothyroid E03.9 [facility] [address] 26310- 5411 13 May, 2017 [facility] [id number] [place] [address] 55673- 8438 10 May, 2017 [facility] [id number] [place] [address] 33226- 4912 07 May, 2017 Chronic posttraumatic stress disorder F43.12 ; 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 ; Undifferentiated schizophrenia F20.3 ; BMI 40.0-44.9, adult Z68.41 and Obesity E66.9 [facility] [id number] [place] [address] 05202- 5032 07 May, 2017 Shortness of breath R06.02 [facility] [id number] [place] [address] 90428- 2717 02 May, 2017 [facility] [address] [place] [address]- 8100 Apr, Undifferentiated schizophrenia F20.3 [facility] [id number] [place] [address] 87464- 5819 Apr, [facility] [id number] [place] [address] 59407- 5907 Apr, [facility] [id number] [place] [address] 37059- 5387 Mar, Undifferentiated schizophrenia F20.3 ; Panic disorder without agoraphobia F41.0 and Chronic posttraumatic stress disorder F43.12 [facility] [id number] [place] [address] 57954- 9965 Mar, Undifferentiated schizophrenia F20.3 [facility] [id number] [place] [address] 46693- 9975 18 Mar, 2017 [facility] [id number] [place] [address] 85530- 8879 08 Mar, 2017 [facility] [address] [place] [address] 74117- 2753 07 Mar, 2017 [facility] [id number] [place] [address] 79712- 1263 Jan, Undifferentiated schizophrenia F20.3 [facility] [id number] [place] [address] 94920- 3108 Jan, [facility] [id number] [place] [address] 27176- 8770 Jan, [facility] [id number] [place] [address] 97084- 6916 Jan, [facility] [address] [id number] [id number] Dec, Needle stick injury W27.3XXA [facility] [address] [place] [address] 21596- 3228 Dec, Needle stick injury W27.3XXA [facility] [address] [facility] [id number] [address]- 4973 Dec, Undifferentiated schizophrenia F20.3 [facility] [address] [facility] [id number] [address]- 7173 Dec, [facility] [address] [facility] [id number], [place] [address]- 1689 Dec, [facility] [id number] [place] [address] 61554- 1872 Dec, Undifferentiated schizophrenia F20.3 ; 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 and Chronic posttraumatic stress disorder F43.12 [facility] [id number] [address]- 5937 Dec, [facility] [id number], [place] [address]- 8916 October, [facility] [id number], [place] [address]- 2612 October, Undifferentiated schizophrenia F20.3 [facility] [id number], [place] [address]- 7673 October, [facility] [id number], [place] [address]- 5200 October, [facility] [id number], [place] [address]- 7217 Oct, Undifferentiated schizophrenia F20.3 ; 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 ; Chronic posttraumatic stress disorder F43.12 and Obesity E66.9 [facility] [address] [facility] [id number], [place] [address]- 8438 Oct, [facility] [address] [facility] [id number], [place] [address]- 8711 Oct, [facility] [address] [facility] [id number], [place] [address]- 2460 Aug, Undifferentiated schizophrenia F20.3 [facility] [id number] [place] [address] 34373- 6863 17 Aug, 2016 [facility] [id number] [place] [address] 71457- 2989 Aug, Muscle spasm M62.838 [facility] [id number] [place] [address] 74441- 2948 06 Aug, 2016 Undifferentiated schizophrenia F20.3 [facility] [id number] [place] [address] 82158- 1936 Aug, Undifferentiated schizophrenia F20.3 ; 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 ; Chronic posttraumatic stress disorder F43.12 ; High risk medication use Z79.899 and 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 [facility] [id number] [place] [address] 85878- 9784 Aug, Undifferentiated schizophrenia F20.3 [facility] [id number] [place] [address] 39770- 6748 Aug, [facility] [id number] [place] [address] 89845- 5471 Aug, Acute non-recurrent maxillary sinusitis J01.00 [facility] [id number] [place] [address] 43286- 3404 Aug, [facility] [id number] [place] [address] 44406- 3219 Aug, [facility] [id number] [place] [address] 48503- 7034 Jul, Undifferentiated schizophrenia F20.3 [facility] [id number] [place] [address] 31625- 9526 Jul, Schizophrenia, undifferentiated F20.3 ; 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 ; Post-traumatic stress disorder F43.10 ; Panic disorder F41.0 and Depressive disorder, not elsewhere classified F32.9 [facility] [id number] [place] [address] 70448- 0075 Jul, [facility] [id number] [place] [address] 45291- 7536 Jul, Schizophrenia, undifferentiated F20.3 ; 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 ; Post-traumatic stress disorder F43.10 ; Panic disorder F41.0 and Depressive disorder, not elsewhere classified F32.9 [facility] [id number] [place] [address] 38153- 5342 Jul, [facility] [id number] [place] [address] 44267- 9633 Jul, Undifferentiated schizophrenia F20.3 ; 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 ; 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 ; Obesity E66.9 and Chronic posttraumatic stress disorder F43.12 [facility] [id number] [place] [address] 03866- 2860 Jun, [facility] [id number] [place] [address] 05350- 3102 Jun, [facility] [id number] [place] [address] 54900- 0976 Jun, Dental caries K02.9 [facility] [id number] [place] [address] 40518- 0825 Jun, Undifferentiated schizophrenia F20.3 [facility] [id number] [place] [address] 49372- 7130 May, [facility] [id number] [place] [address] 32688- 8392 May, Undifferentiated schizophrenia F20.3 ; 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 and Chronic post-traumatic stress disorder (PTSD) F43.12 [facility] [id number] [place] [address] 82620- 5312 May, [facility] [id number] [place] [address] 59473- 0112 May, Undifferentiated schizophrenia F20.3 [facility] [address] 52905- 0822 10 May, 2016 [facility] [address] 66103- 0392 07 May, 2016 Dental examination Z01.20 [facility] [address] 97148- 8651 20 Apr, 2016 Undifferentiated schizophrenia F20.3 ; PTSD (post-traumatic stress disorder) F43.10 and Obesity E66.9 [facility] [address] 57959- 4154 18 Apr, 2016 [facility] [address] 09442- 4081 15 Mar, 2016 [facility] [address] 24505- 4703 09 Mar, 2016 [facility] [address] 80206- 1908 Jan, Shortness of breath R06.02 and Bipolar disorder with psychotic features F31.9 [facility] [address] 77447- 0285 Jan, [facility] [address] 47586- 7161 Jan, Increased intracranial pressure G93.2 ; Visual disturbance H53.9 and Bipolar II disorder F31.81 [facility] [address] 86749- 0739 Jan, [facility] [id number] [place] [address] 82577- 7752 Jan, [facility] [address] 72253- 1348 Jan, [facility] [id number] [place] [address] 94697- 4834 Jan, Acquired hypothyroidism E03.9 ; Depression F32.9 and Insomnia G47.00 [facility] [id number] [place] [address] 66302- 9851 Jan, Exertional dyspnea R06.09 ; Heart palpitations R00.2 ; Hyperlipidemia, unspecified hyperlipidemia type E78.5 ; Hypothyroidism, unspecified type E03.9 and Hypokalemia E87.6 [facility] [address] 95000- 5423 Dec, PTSD (post-traumatic stress disorder) F43.10 ; Depression F32.9 ; Insomnia G47.00 and Bipolar disorder with psychotic features F31.[address] 39971- 0990 Dec, Increased intracranial pressure G93.2 [facility] [address] 95857- 8357 Dec, [address] 09651- 4890 Dec, Shortness of breath R06.[address] 26232- 4512 Dec, Visual disturbance H53.9 and Headache, unspecified headache type R51 [address] 04524- 2172 Dec, Insomnia G47.[address] 94759- 3290 Dec, Murmur R01.[address] 98921- 7378 Dec, Murmur R01.1 ; Tunnel vision, unspecified laterality H53.489 ; Orthostatic hypertension I10 ; Shortness of breath R06.02 and Tachycardia R00.[address] 58067- 5148 Dec, [address] 54264- 0376 Dec, Hypothyroid E03.9 and Bipolar 1 disorder F31.9 [facility] [id number] [place] [address] 20006- 5378 Dec, Bipolar 1 disorder F31.9 [facility] [id number] [place] [address] 93214- 0429 Dec, [facility] [id number] [place] [address] 52301- 3467 October, Acquired hypothyroidism E03.9 ; Depression F32.9 and Insomnia G47.00 [facility] [id number] [place] [address] 73456- 6919 October, [facility] [id number] [place] [address] 19642- 8795 October, Bipolar 1 disorder F31.9 ; PTSD (post-traumatic stress disorder) F43.10 and 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 [facility] [id number] [place] [address] 52401- 2998 Oct, Bipolar 1 disorder F31.9 and Insomnia G47.00 [facility] [id number] [place] [address] 82002- 1696 Oct, [facility] [id number] [place] [address] 40714- 5558 Oct, [facility] [id number] [place] [address] 94875- 5541 Aug, Hypothyroid E03.9 [facility] [address] [place] [address] 70685- 2267 Aug, Encounter for therapeutic drug level monitoring Z51.81 and Other penitentiary (current) drug therapy Z79.899 [facility] [id number] [place] [address] 02941- 7154 Aug, Encounter for therapeutic drug level monitoring Z51.81 [facility] [id number] [place] [address] 73446- 4934 Aug, Acquired hypothyroidism E03.9 ; Leg pain M79.606 and Bipolar 1 disorder F31.9 [facility] [id number] [place] [address] 76812- 8081 Aug, [facility] [id number] [place] [address] 72153- 3086 Aug, [facility] [address] 99605- 5249 Jul, Thyroid disorder E07.9 [facility] [id number] [place] [address] 02475- 3870 Jul, Rash R21 ; Abnormal LFTs R94.5 ; Acquired hypothyroidism E03.9 ; Sleep apnea in adult G47.33 and Fatty liver K76.0 [facility] [id number] [place] [address] 99845- 6750 Jun, [facility] [id number] [place] [address]8495- [address]19 Jun, [facility] [address] [address] Jun, Bipolar II disorder F31.81 and Social phobia, generalized F40.11 [facility] [id number] [place] [address]2797- 1673 Mar, Bipolar II disorder 296.89 and Social phobia 300.23 [facility] [id number] [place] [address]7860- [address] Dec, [facility] [id number] [place] [address]- 6556 Dec, [facility] [id number] [place] [address]- [address]807 Dec, Bipolar II disorder in partial or unspecified remission 296.89 and Social phobia, generalized 300.23 [facility] [id number] [place] [address] 94784- 1233 Oct, 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 [facility] [place] [facility] [address] [id number] [place] [address] Oct, [facility] [place] [facility] [address] [id number] [place] [address] Oct, [facility] [place] [facility] [address] [facility] [id number] [place] [address] Aug, [facility] [place] [facility] [address] [id number] [place] [address] Aug, [facility] [place] [facility] [address] [id number] [place] [address] Aug, [facility] [place] [facility] [address] [facility] [id number] [place] [address]- [address] Aug, [facility] [place] [facility] [address] [facility] [id number] [place] [address]- [address] Aug, [facility] [place] [facility] [address] [facility] [id number] [place] [address]- [address]64 Aug, [facility] [place] [facility] [address] [facility] [id number], [place] [address] Aug, [facility] [place] [facility] [address] [facility] [id number] [place] [address]- [address] Aug, [facility] [place] [facility] [address] [facility] [id number], [place] [address] Jul, [facility] [place] [facility] [address] [facility] [id number], [place] [address] Jul, [facility] [place] [facility] [address] [id number], [place] [address] Jul, [facility] [place] [facility] [address] [facility] [id number], [place] [address] Jul, [facility] [place] [facility] [address] [facility] [id number], [place] [address] Jul, [facility] [place] [facility] [address] [id number] [place] [address] Jul, [facility] [place] [facility] [address] [id number] [place] [address] Jun, [facility] [place] [facility] [address] [id number] [place] [address] 5629 Jun, [facility] [place] [facility] [address] [id number] [place] [address] Jun, [facility] [place] [facility] [address] [id number] [place] [address] 9073 Jun, [facility] [place] [facility] [address] [id number] [place] [address]161 Jun, [facility] [place] [facility] [address] [id number] [place] [address] Jun, [facility] [place] [facility] [address] [id number] [place] [address] 1677 Jun, [facility] [place] [facility] [address] [id number] [place] [address] Jun, [facility] [place] [facility] [address] [id number] [place] [address]- 7252 Jun, [facility] [place] [facility] [address] [id number] [place] [address] Jun, [facility] [place] [facility] [address] [id number] [place] [address]- 5513 Jun, [facility] [place] [facility] [address] [id number] [place] [address]- 7551 Jun, [facility] [place] [facility] [address] [id number] [place] [address]- 1077 Jun, [facility] [place] [facility] [address] [id number] [place] [address]- 2513 Jun, [facility] [place] [facility] [address] [id number] [place] [address]- 6100 Jun, [facility] [place] [facility] [address] [id number] [place] [address] Jun, [facility] [place] [facility] [address] [id number] [place] [address]- 9883 May, [facility] [place] [facility] [address] [id number] [place] [address]- 1340 May, [facility] [place] [facility] [address] [id number] [place] [address]- 6487 May, [facility] [place] [facility] [address] [id number] [place] [address]- 4994 May, [facility] [place] [facility] [address] [id number] [place] [address]- 0998 May, [facility] [place] [facility] [address] [id number] [place] [address]- 6972 May, [facility] [place] [facility] [address] [id number], [place] [address] Apr, [facility] [place] [facility] [address] [id number] [place] [address] 1864 Apr, [facility] [place] [facility] [address] [id number], [place] [address] 53[address] Apr, [facility] [place] [facility] [address] [id number], [place] [address] Apr, [facility] [place] [facility] [address] [id number], [place] [address] 7979 Apr, [facility] [place] [facility] [address] [id number], [place] [address]- 9413 Apr, [facility] [place] [facility] [address] [id number], [place] [address] 43[address] Mar, [facility] [place] [facility] [address] [id number], [place] [address] 65[address] Mar, [facility] [place] [facility] [address] [id number] [place] [address]- 3676 Mar, [facility] [place] [facility] [address] [id number] [place] [address]- 2357 Mar, [facility] [place] [facility] [address] [id number] [place] [address]- 7596 Jan, [facility] [place] [facility] [address] [id number] [place] [address]- 7163 Jan, [facility] [place] [facility] [address] [id number] [place] [address]- 9409 Jan, [facility] [place] [facility] [address] [id number] [place] [address]- 7118 Jan, [facility] [place] [facility] [address] [id number] [place] [address]- 7055 Jan, [facility] [place] [facility] [address] [id number] [place] [address]- 5754 Jan, [facility] [place] [facility] [address] [id number] [place] [address]- 3166 Dec, [facility] [place] [facility] [address] [id number] [place] [address]- 5785 Dec, [facility] [place] [facility] [address] [id number] [place] [address]- 9558 Dec, [facility] [place] [facility] [address] [id number] [place] [address]- 0200 Dec, [facility] [place] [facility] [address] [id number] [place] [address]- 2179 Dec, [facility] [place] [facility] [address] [id number] [place] [address]- 1272 Dec, [facility] [place] [facility] [address] [id number] [place] [address]- 8786 October, [facility] [place] [facility] [address] [id number] [place] [address]- 5374 October, [facility] [place] [facility] [address] [id number] [place] [address]- 3491 October, [facility] [place] [facility] [address] [id number] [place] [address]- 9396 October, [facility] [place] [facility] [address] [id number] [place] [address]- 6460 October, [facility] [place] [facility] [address] [id number] [place] [address]- 6467 October, [facility] [place] [facility] [address] [id number] [place] [address]- 3903 October, [facility] [place] [facility] [address] [id number] [place] [address]- 8367 October, [facility] [place] [facility] [address] [id number] [place] [address]- 3885 Oct, [facility] [place] [facility] [address] [id number] [place] [address]- 5747 Oct, [facility] [place] [facility] [address] [id number] [place] [address]- 8939 Oct, [facility] [place] [facility] [address] [id number] [place] [address]- 2350 Oct, [facility] [place] [facility] [address] [id number] [place] [address]- 1717 Oct, [facility] [place] [facility] [address] [id number] [place] [address]- 5112 Aug, [facility] [place] [facility] [address] [id number] [place] [address]- 2901 Aug, [facility] [place] [facility] [address] [id number] [place] [address]- 4108 Aug, [facility] [place] [facility] [address] [id number] [place] [address]- 5845 Aug, [facility] [place] [facility] [address] [id number], [place] [address]- 7252 07 Aug, 2013 [facility] [address] [id number] [place] [address]- 6976 07 Aug, 2013 [facility] [place] [facility] [address] [id number] [place] [address]- 0357 Jul, [facility] [place] [facility] [address] [facility] [id number] [place] [address]- 3693 Jul, [facility] [place] [facility] [address] [id number] [place] [address]- 6858 Jul, [facility] [place] [facility] [address] [id number] [place] [address]- 4668 Jul, [facility] [place] [facility] [address] [id number] [place] [address]- 0495 Jul, [facility] [address] [facility] [id number] [place] [address]- 0172 Jul, [facility] [place] [facility] [address] [id number] [place] [address]- 9736 Jun, [facility] [place] [facility] [address] [id number] [place] [address]- 3172 Jun, [facility] [place] [facility] [address] [facility] [id number] [place] [address]- 6310 Jun, [facility] [place] [facility] [address] [id number] [place] [address]- 4603 Jun, [facility] [place] [facility] [address] [id number] [place] [address]- 0576 Jun, [facility] [place] [facility] [address] [id number] [place] [address]- 0293 Jun, [facility] [place] [facility] [address] [id number] [place] [address]- 3294 May, [facility] [place] [facility] [address] [facility] [id number] [place] [address]- 8902 May, [facility] [place] [facility] [address] [id number] [place] [address]- 3623 24 Apr, 2012 [facility] [place] [facility] [address] [id number] [place] [address]- 6375 24 Apr, 2013 [facility] [place] [facility] [address] [id number] [place] [address]- 9820 Apr, [facility] [place] [facility] [address] [id number] [place] [address]- 6027 Apr, 2012 [facility] [place] [facility] [address] [id number] [place] [address]- 0963 Apr, 2012 [facility] [place] [facility] [address] [id number] [place] [address]- 1911 Apr, [facility] [place] [facility] [address] [id number] [place] [address]- 3760 Apr, [facility] [place] [facility] [address] [id number] [place] [address]- 4576 18 Apr, 2013 [facility] [place] [facility] [address] [id number] [place] [address]- 1484 18 Apr, 2013 [facility] [place] [facility] [address] [id number] [place] [address]- 1237 04 Apr, 2013 [facility] [place] [facility] [address] [id number] [place] [address]- 5536 02 Apr, 2013 [facility] [place] [facility] [address] [id number] [place] [address]- 7872 23 Mar, 2012 [facility] [place] [facility] [address] [id number] [place] [address]- 5243 20 Mar, 2012 [facility] [place] [facility] [address] [id number] [place] [address]- 0322 20 Mar, 2012 [facility] [place] [facility] [address] [id number] [place] [address]- 3165 14 Mar, 2012 [facility] [place] [facility] [address] [id number] [place] [address]- 8653 Mar, [facility] [place] [facility] [address] [id number] [place] [address]- 5650 Mar, [facility] [place] [facility] [address] [id number] [place] [address]- 7022 Mar, [facility] [place] [facility] [address] [id number] [place] [address]- 5399 Jan, [facility] [place] [facility] [address] [id number] [place] [address]- 3218 Jan, [facility] [place] [facility] [address] [id number] [place] [address]- 3592 Jan, [facility] [place] [facility] [address] [id number] [place] [address]- 2922 Jan, [facility] [place] [facility] [address] [id number] [place] [address]- 6050 Jan, [facility] [place] [facility] [address] [id number] [place] [address]- 9311 Jan, [facility] [place] [facility] [address] [id number] [place] [address]- 9888 Jan, [facility] [place] [facility] [address] [id number] [place] [address]- 9150 Dec, [facility] [place] [facility] [address] [id number] [place] [address]- 2677 Dec, [facility] [place] [facility] [address] [id number] [place] [address]- 1706 Dec, [facility] [place] [facility] [address] [id number] [place] [address]- 7250 Dec, [facility] [place] [facility] [address] [id number] [place] [address]- 3515 Dec, [facility] [place] [facility] [address] [id number] [place] [address]- 8314 Dec, [facility] [place] [facility] [address] [id number] [place] [address]- 8554 17 Oct, 2012 [facility] [address] [id number] [place] [address]- 3451 15 Oct, 2012 [facility] [address] [id number] [place] [address]- 5434 October, [facility] [address] [id number] [place] [address]- 1732 October, [facility] [address] [id number] [place] [address]- 9897 Oct, [facility] [address] [id number] [place] [address]- 3281 Oct, [facility] [address] [id number] [place] [address]- 2070 Aug, [facility] [address] [id number] [place] [address]- 2857 Aug, [facility] [address] [id number] [place] [address]- 2556 Aug, [facility] [address] [id number] [place] [address]- 4425 Aug, [facility] [address] [facility] [id number] [place] [address]- 9803 Aug, [facility] [address] [id number] [place] [address]- 8684 Aug, [facility] [address] [id number] [place] [address]- 4450 Aug, [facility] [place] [facility] [address] [id number] [place] [address]- 7272 Aug, [facility] [place] [facility] [address] [id number] [place] [address]- 6660 Aug, [facility] [place] [facility] [address] [id number] [place] [address]- 0758 Aug, [facility] [address] [id number], [place] [address]- 2657 Aug, [facility] [address]00565[address], [place] [address]- 2824 Aug, [facility] [address]00565[address], [place] [address]- 3925 Aug, [facility] [address]65[address], [place] [address]- 8676 Aug, [facility] [address]00565[address], [place] [address]- 9233 Jul, [facility] [address]65[address], [place] [address]- 1569 Jul, [facility] [address], [place] [address]- 7217 Jul, [facility] [address]65[address], [place] [address]- 1375 Jul, [facility] [address]65[address], [place] [address]- 3906 Jun, [facility] [address]65[address], [place] [address]- 2877 Jun, [facility] [address], [place] [address]- 9337 Jun, [facility] [address], [place] [address]- 8456 Jun, [facility] [address] [id number], [place] [address]- 6127 May, [facility] [address], [place] [address]- 3308 May, IMMUNIZATIONS No Known Immunizations SOCIAL HISTORY Never Assessed REASON FOR VISIT PALS IN [facility] PLAN OF CARE VITAL SIGNS MEDICATIONS Unknown [...]
--- OUTSIDE RECORDS SUMMARY | 2018-09-02 17:46 | XMS REPORT ---
Author Author AMARI HOWARD [facility] Address [address] [place] [address] Care Team Providers Care Concrete Rod Buster Name Role Phone AMARI HOWARD Unavailable PROBLEMS Type Condition ICD9-CM Code [id number] Code Onset Dates Condition Status SNOMED Code Problem 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 Active 56586807 Problem Depressive disorder, not elsewhere classified F32.9 Active 70997771 Problem Chronic posttraumatic stress disorder F43.12 Active 481949314 Problem Insomnia G47.00 Active 823037851 Problem Obesity E66.9 Active 889350898 Problem Other chronic pain G89.29 Active 48364329 Problem Fatty liver K76.0 Active 625602187 Problem Abuse, drug or alcohol F19.10 Active 32356129 Problem Panic disorder without agoraphobia F41.0 Active 43474724 Problem Panic disorder F41.0 Active 529038483 Problem Hypothyroid E03.9 Active 49638540 Problem BMI 50.0-59.9, adult Z68.43 Active 985907356 Problem Restless legs syndrome G25.81 Active 383068217 Problem Encounter for therapeutic drug level monitoring Z51.81 Active 450630602 Problem Neuropathy G62.9 Active 821431267 Problem 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 Active 57367777 Problem Tachycardia R00.0 Active 0401117 Problem Murmur R01.1 Active 533920518 Problem Orthostatic hypertension I10 Active 59717274 Problem Shortness of breath R06.02 Active 567671305 Problem Sleep apnea in adult G47.33 Active 00912870 Problem Tunnel vision, unspecified laterality H53.489 Active 376723206 Problem Undifferentiated schizophrenia F20.3 Active 169423187 ALLERGIES No Information ENCOUNTERS Encounter Location Date Diagnosis [facility] [address] [facility] [id number] [address] Jul, [facility] [address] [address] Jun, [facility] [id number] [place] [address] 18957- 7058 May, Thyroid disorder E07.9 [facility] [id number] [place] [address] 51673- 6744 May, Undifferentiated schizophrenia F20.3 ; PTSD (post-traumatic stress disorder) F43.10 ; 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 ; Obesity E66.9 and BMI 50.0-59.9, adult Z68.43 [facility] [id number] [place] [address] 53596- 6322 May, [facility] [id number] [place] [address] 13592- 7932 May, [facility] [id number] [place] [address] 04379- 8378 May, [facility] [id number] [place] [address] 53379- 5805 Apr, [facility] [id number] [place] [address] 21596- 1439 Apr, [facility] [id number] [place] [address] 50620- 3519 Apr, Undifferentiated schizophrenia F20.3 ; 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 ; 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 and BMI 50.0-59.9, adult Z68.43 [facility] [id number] [place] [address] 49265- 8277 Apr, [facility] [id number] [place] [address] 39437- 0052 Apr, Undifferentiated schizophrenia F20.3 [facility] [id number] [place] [address] 86258- 4496 Mar, Undifferentiated schizophrenia F20.3 [facility] [address] [id number] [address] 7[address] Mar, [facility] [id number] [place] [address] 17118- 8875 Mar, Undifferentiated schizophrenia F20.3 [facility] [id number] [place] [address] 15889- 9264 Jan, [facility] [id number] [place] [address] 56689- 0065 Jan, Undifferentiated schizophrenia F20.3 [facility] [id number] [place] [address] 75193- 1614 Jan, [facility] [id number] [place] [address] 32010- 6778 Jan, Undifferentiated schizophrenia F20.3 [facility] [id number] [place] [address] 34179- 9108 Dec, [facility] [id number] [place] [address] 93753- 3642 Dec, [facility] [id number] [place] [address] 30214- 2843 Dec, [facility] [id number] [place] [address] 57321- 3470 Dec, Undifferentiated schizophrenia F20.3 ; 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 ; Chronic posttraumatic stress disorder F43.12 and BMI 50.0- 59.9, adult Z68.43 [facility] [id number] [address] 6319 Dec, [facility] [id number] [place] [address] 13337- 0572 Dec, Undifferentiated schizophrenia F20.3 ; Insomnia G47.00 and Thyroid disorder E07.9 [facility] [id number] [address] 3609 Dec, Undifferentiated schizophrenia F20.3 [facility] [id number] [address] 3924 18 Dec, 2017 [facility] [id number] [place] [address] 05540- 0764 15 Dec, 2017 [facility] [id number] [place] [address] 02891- 8006 14 Dec, 2017 BMI 50.0-59.9, adult Z68.43 ; Undifferentiated schizophrenia F20.3 ; Panic disorder without agoraphobia F41.0 and Chronic posttraumatic stress disorder F43.12 [facility] [id number] [place] [address] 24225- 3933 04 Dec, 2017 [facility] [id number] [place] [address] 20902- 6102 October, [facility] [id number] [place] [address] 42283- 6443 October, Pain in right shoulder M25.511 and Other chronic pain G89.29 [facility] [id number] [place] [address] 30790- 7010 October, Hypothyroid E03.9 [facility] [id number] [place] [address] 63960- 2065 Oct, Undifferentiated schizophrenia F20.3 [facility] [id number] [place] [address] 41051- 3751 Oct, [facility] [id number] [place] [address] 55686- 4091 Oct, [facility] [id number] [place] [address] 11434- 1507 Aug, Undifferentiated schizophrenia F20.3 [facility] [id number] [place] [address] 87811- 1609 Aug, [facility] [id number] [place] [address] 96259- 5180 13 Aug, 2017 Undifferentiated schizophrenia F20.3 ; 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 ; Chronic posttraumatic stress disorder F43.12 and BMI 50.0- 59.9, adult Z68.43 [facility] [address] [address] 2808 Aug, [facility] [id number] [place] [address] 98696- 2940 Aug, [facility] [id number] [place] [address] 62026- 4357 Aug, Undifferentiated schizophrenia F20.3 [facility] [id number] [place] [address] 64102- 7244 Aug, Hypothyroid E03.9 [facility] [id number] [place] [address] 10193- 4682 Jul, Undifferentiated schizophrenia F20.3 [facility] [id number] [place] [address] 22016- 6449 Jul, [facility] [id number] [place] [address] 48796- 6440 Jul, Undifferentiated schizophrenia F20.3 ; Chronic posttraumatic stress disorder F43.12 ; 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 and BMI 50.0-59.9, adult Z68.43 [facility] [address] [address] 3824 15 Jul, 2017 [facility] [id number] [place] [address] 61745- 6041 08 Jul, 2017 Acute pain of right shoulder M25.511 ; High risk medication use Z79.899 ; Needle stick injury W27.3XXA ; Hypothyroid E03.9 and BMI 50.0-59.9 , adult Z68.43 [facility] [address] [place] [address] 48884- 8146 Jun, Undifferentiated schizophrenia F20.3 [facility] [address] [address]- 1787 Jun, Undifferentiated schizophrenia F20.3 ; Panic disorder without agoraphobia F41.0 ; Chronic posttraumatic stress disorder F43.12 and BMI 50.0-59.9, adult Z68.43 [facility] [id number] [place] [address] 55351- 8084 May, [facility] [id number] [place] [address] 91503- 2718 May, [facility] [id number] [place] [address] 02701- 7927 May, Undifferentiated schizophrenia F20.3 [facility] [id number] [place] [address] 27592- 6251 May, [facility] [id number] [place] [address] 52783- 7086 May, [facility] [id number] [place] [address] 29238- 6415 May, Hypothyroid E03.9 [facility] [id number] [place] [address] 74625- 0151 May, [facility] [id number] [place] [address] 90188- 4082 10 May, 2017 [facility] [id number] [place] [address] 77416- 1131 07 May, 2017 Chronic posttraumatic stress disorder F43.12 ; 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 ; Undifferentiated schizophrenia F20.3 ; BMI 40.0-44.9, adult Z68.41 and Obesity E66.9 [facility] [id number] [place] [address] 90756- 7886 07 May, 2017 Shortness of breath R06.02 [facility] [id number] [place] [address] 90535- 0849 May, [facility] [id number] [place] [address] 99483- 3252 Apr, Undifferentiated schizophrenia F20.3 [facility] [address] [address]- 4635 Apr, [facility] [address] [place] [address] 40419- 2099 Apr, [facility] [address] [place] [address] 30713- 8232 Mar, Undifferentiated schizophrenia F20.3 ; Panic disorder without agoraphobia F41.0 and Chronic posttraumatic stress disorder F43.12 [facility] [id number] [place] [address] 71664- 3511 Mar, Undifferentiated schizophrenia F20.3 [facility] [id number] [place] [address] 31777- 2018 18 Mar, 2017 [facility] [address] [place] [address] 11002- 2620 08 Mar, 2017 [facility] [id number] [place] [address] 86619- 2223 Mar, [facility] [address] [place] [address] 68597- 7944 Jan, Undifferentiated schizophrenia F20.3 [facility] [address] [place] [address] 64729- 5797 Jan, [facility] [address] [place] [address] 59379- 7380 Jan, [facility] [address] [place] [address] 35029- 8151 Jan, [facility] [place] [address] [address] [id number] [id number] Dec, Needle stick injury W27.3XXA [facility] [address] [place] [address] 22971- 2428 Dec, Needle stick injury W27.3XXA [facility] [address] [address]- 3687 Dec, Undifferentiated schizophrenia F20.3 [facility] [address] [facility] [id number] [place] [address]- 7854 Dec, [facility] [address] [facility] [id number] [place] [address]- 2364 Dec, [facility] [id number] [address]- 1806 Dec, Undifferentiated schizophrenia F20.3 ; 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 and Chronic posttraumatic stress disorder F43.12 [facility] [address] [facility] [id number] [place] [address]- 8385 Dec, [facility] [id number] [address]- 3369 October, [facility] [id number] [address]- 6134 October, Undifferentiated schizophrenia F20.3 [facility] [id number] [address]- 2429 October, [facility] [id number] [address]- 2442 October, [facility] [id number] [address]- 3254 Oct, Undifferentiated schizophrenia F20.3 ; 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 ; Chronic posttraumatic stress disorder F43.12 and Obesity E66.9 [facility] [id number] [address]- 5953 Oct, [facility] [id number] [address]- 0319 Oct, [facility] [id number] [address]- 4019 Aug, Undifferentiated schizophrenia F20.3 [facility] [id number] [address]- 3023 Aug, [facility] [id number] [place] [address] 23471- 5708 13 Aug, 2016 Muscle spasm M62.838 [facility] [id number] [place] [address] 19251- 8638 06 Aug, 2016 Undifferentiated schizophrenia F20.3 [facility] [id number] [place] [address] 06735- 9846 Aug, Undifferentiated schizophrenia F20.3 ; 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 ; Chronic posttraumatic stress disorder F43.12 ; High risk medication use Z79.899 and 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 [facility] [id number] [place] [address] 46667- 6396 Aug, Undifferentiated schizophrenia F20.3 [facility] [id number] [place] [address] 82574- 7855 Aug, [facility] [address] 76323- 3028 Aug, Acute non-recurrent maxillary sinusitis J01.00 [facility] [id number] [place] [address] 98006- 8131 Aug, [facility] [id number] [place] [address] 99559- 0951 Aug, [facility] [id number] [place] [address] 87829- 4148 Jul, Undifferentiated schizophrenia F20.3 [facility] [id number] [place] [address] 24075- 3662 Jul, Schizophrenia, undifferentiated F20.3 ; 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 ; Post-traumatic stress disorder F43.10 ; Panic disorder F41.0 and Depressive disorder, not elsewhere classified F32.9 [facility] [id number] [place] [address] 66800- 0692 Jul, [facility] [id number] [place] [address] 76530- 9442 Jul, Schizophrenia, undifferentiated F20.3 ; 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 ; Post-traumatic stress disorder F43.10 ; Panic disorder F41.0 and Depressive disorder, not elsewhere classified F32.9 [facility] [id number] [place] [address] 80056- 1816 Jul, [facility] [id number] [place] [address] 61794- 2080 Jul, Undifferentiated schizophrenia F20.3 ; 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 ; 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 ; Obesity E66.9 and Chronic posttraumatic stress disorder F43.12 [facility] [id number] [place] [address] 27651- 1080 Jun, [facility] [id number] [place] [address] 34410- 8096 Jun, [facility] [address] 79741- 7420 Jun, Dental caries K02.9 [facility] [id number] [place] [address] 72256- 7645 Jun, Undifferentiated schizophrenia F20.3 [facility] [id number] [place] [address] 59886- 1194 30 May, 2016 [facility] [id number] [place] [address] 92841- 6988 May, Undifferentiated schizophrenia F20.3 ; 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 and Chronic post-traumatic stress disorder (PTSD) F43.12 [facility] [id number] [place] [address] 06141- 7176 May, [facility] [id number] [place] [address] 63663- 0312 May, Undifferentiated schizophrenia F20.3 [facility] [id number] [place] [address] 71316- 6099 May, [facility] [address] [place] [address]- 9681 07 May, 2016 Dental examination Z01.20 [place] [address] 54707- 3181 20 Apr, 2016 Undifferentiated schizophrenia F20.3 ; PTSD (post-traumatic stress disorder) F43.10 and Obesity E66.9 [place] [address] 01189- 6584 18 Apr, 2016 [place] [address] 96733- 4641 15 Mar, 2016 [place] [address] 75855- 3952 09 Mar, 2016 [place] [address] 98604- 9246 31 Feb, 2016 Shortness of breath R06.02 and Bipolar disorder with psychotic features F31.9 [place] [address] 78769- 8616 Jan, [place] [address] 08346- 7145 Jan, Increased intracranial pressure G93.2 ; Visual disturbance H53.9 and Bipolar II disorder F31.81 [place] [id number] [place] [address] 55415- 8805 Jan, [place] [id number] [place] [address] 01161- 2850 Jan, [place] [id number] [place] [address] 87505- 9035 Jan, [place] [address] 59131- 8223 Jan, Acquired hypothyroidism E03.9 ; Depression F32.9 and Insomnia G47.00 [place] [id number] [place] [address] 12592- 2899 Jan, Exertional dyspnea R06.09 ; Heart palpitations R00.2 ; Hyperlipidemia, unspecified hyperlipidemia type E78.5 ; Hypothyroidism, unspecified type E03.9 and Hypokalemia E87.[address] 33766- 4349 Dec, PTSD (post-traumatic stress disorder) F43.10 ; Depression F32.9 ; Insomnia G47.00 and Bipolar disorder with psychotic features F31.[address] 29360- 1443 Dec, Increased intracranial pressure G93.[address] 03632- 5451 Dec, [address] 317935- 1750 Dec, Shortness of breath R06.[address] 33273- 1379 Dec, Visual disturbance H53.9 and Headache, unspecified headache type R51 [address] 63930- 8856 Dec, Insomnia G47.[address] 29811- 2608 Dec, Murmur R01.[address] 97983- 3160 Dec, Murmur R01.1 ; Tunnel vision, unspecified laterality H53.489 ; Orthostatic hypertension I10 ; Shortness of breath R06.02 and Tachycardia R00.[address] 38003- 6952 Dec, [address] 17345- 0525 Dec, Hypothyroid E03.9 and Bipolar [address] [place] [address]- 2671 Dec, Bipolar 1 disorder F31.9 [facility] [id number] [place] [address] 05609- 3704 Dec, [facility] [id number] [place] [address] 77005- 4472 October, Acquired hypothyroidism E03.9 ; Depression F32.9 and Insomnia G47.00 [facility] [id number] [place] [address] 15253- 2619 October, [facility] [id number] [place] [address] 74883- 5513 October, Bipolar 1 disorder F31.9 ; PTSD (post-traumatic stress disorder) F43.10 and 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 [place] [address] [place] [id number] [place] [address] 05170- 2160 Oct, Bipolar 1 disorder F31.9 and Insomnia G47.00 [facility] [id number] [place] [address] 23642- 8191 Oct, [facility] [id number] [place] [address] 87961- 1608 Oct, [facility] [id number] [place] [address] 00394- 7156 Aug, Hypothyroid E03.9 [facility] [id number] [place] [address] 14522- 3860 Aug, Encounter for therapeutic drug level monitoring Z51.81 and Other long-term (current) drug therapy Z79.899 [facility] [id number] [place] [address] 27793- 6327 Aug, Encounter for therapeutic drug level monitoring Z51.81 [facility] [address] [place] [address] 48657- 0508 Aug, Acquired hypothyroidism E03.9 ; Leg pain M79.606 and Bipolar 1 disorder F31.9 [place] [address] [place] [id number] [place] [address] 72687- 6233 Aug, [facility] [id number] [place] [address] 57075- 9497 Aug, [facility] [id number] [place] [address] 81728- 1190 Jul, Thyroid disorder E07.9 [facility] [address] [address]- [address] Jul, Rash R21 ; Abnormal LFTs R94.5 ; Acquired hypothyroidism E03.9 ; Sleep apnea in adult G47.33 and Fatty liver K76.0 [place] [place] [id number] [place] [address] [id number]- [id number] Jun, [facility] [id number] [place] [address] [id number]- 3899 Jun, [facility] [id number] [place] [address] [id number]- 2224 Jun, Bipolar II disorder F31.81 and Social phobia, generalized F40.11 [id number] [place] [address] 24146- 7508 Mar, Bipolar II disorder 296.89 and Social phobia 300.23 [facility] [id number] [place] [address] [id number]- [phone] Dec, [facility] [id number] [place] [address] [id number]- 3643 Dec, [facility] [id number] [place] [address] [phone]- 6794 Dec, Bipolar II disorder in partial or unspecified remission 296.89 and Social phobia, generalized 300.23 [facility] [id number] [place] [address]- [address]109 Oct, 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 [facility] [id number] [place] [address]- 1814 Oct, [facility] [place] [facility] [address] [id number] [place] [address] 5269 Oct, [facility] [place] [facility] [address] [id number] [place] [address] 5619 Aug, [facility] [place] [facility] [address] [id number] [place] [address] 9861 Aug, [facility] [place] [facility] [address] [id number] [place] [address]- 5850 Aug, [facility] [place] [facility] [address] [id number] [place] [address]- 9436 Aug, [facility] [place] [facility] [address] [id number] [place] [address]- 0611 Aug, [facility] [place] [facility] [address] [id number] [place] [address]- 3362 Aug, [facility] [place] [facility] [address] [id number] [place] [address]- 5704 Aug, [facility] [place] [facility] [address] [id number] [place] [address]- 4410 Aug, [facility] [place] [facility] [address] [facility] [id number] [place] [address]- 4071 Jul, [facility] [place] [facility] [address] [id number] [place] [address]- 1593 Jul, [facility] [place] [facility] [address] [id number] [place] [address]- 7493 Jul, [facility] [place] [facility] [address] [id number] [place] [address]- 8110 Jul, [facility] [place] [facility] [address] [id number] [place] [address]- 8520 Jul, [facility] [place] [facility] [address] [facility] [id number] [place] [address]- 1607 Jul, [facility] [place] [facility] [address] [id number] [place] [address]- 8143 Jun, [facility] [place] [facility] [address] [id number] [place] [address]- 4887 Jun, [facility] [place] [facility] [address] [id number] [place] [address]- 2936 Jun, [facility] [place] [facility] [address] [id number] [place] [address]- 6694 Jun, [facility] [place] [facility] [address] [id number] [place] [address]- 7380 Jun, [facility] [place] [facility] [address] [id number] [place] [address]- 0416 Jun, [facility] [place] [facility] [address] [id number] [place] [address]- 1377 Jun, [facility] [place] [facility] [address] [id number] [place] [address]- 4415 Jun, [facility] [place] [facility] [address] [id number] [place] [address]- 4013 Jun, [facility] [place] [facility] [address] [id number] [place] [address]- 1284 Jun, [facility] [place] [facility] [address] [id number] [place] [address]- 5564 Jun, [facility] [place] [facility] [address] [id number] [place] [address]- 5180 Jun, [facility] [place] [facility] [address] [id number] [place] [address]- 8004 Jun, [facility] [place] [facility] [address] [id number] [place] [address]- 5418 Jun, [facility] [place] [facility] [address] [id number] [place] [address]- 8127 Jun, [facility] [place] [facility] [address] [id number] [place] [address]- 5512 Jun, [facility] [place] [facility] [address] [id number] [place] [address]- 8796 May, [facility] [place] [facility] [address] [id number] [place] [address]- 5701 May, [facility] [place] [facility] [address] [id number] [place] [address] May, [facility] [place] [facility] [address] [id number] [place] [address]- 5851 May, [facility] [place] [facility] [address] [id number] [place] [address]- 6836 May, [facility] [place] [facility] [address] [id number] [place] [address]- 4363 May, [facility] [place] [facility] [address] [id number] [place] [address]- 0950 Apr, [facility] [place] [facility] [address] [id number] [address]- 0982 Apr, [facility] [place] [facility] [address] [id number] [place] [address]- 3240 Apr, [facility] [place] [facility] [address] [id number] [place] [address]- 6546 Apr, [facility] [place] [facility] [address] [id number] [place] [address]- 3896 Apr, [facility] [place] [facility] [address] [id number] [place] [address]- 3266 Apr, [facility] [place] [facility] [address] [id number] [place] [address]- 3268 Mar, [facility] [place] [facility] [address] [id number] [place] [address]- 8447 Mar, [facility] [place] [facility] [address] [id number] [place] [address]- 1768 Mar, [facility] [place] [facility] [address] [id number] [place] [address]- 1708 Mar, [facility] [place] [facility] [address] [id number] [place] [address]- 0841 Jan, [facility] [place] [facility] [address] [id number] [place] [address]- 4373 Jan, [facility] [place] [facility] [address] [id number] [place] [address]- 8824 Jan, [facility] [place] [facility] [address] [id number] [place] [address]- 5785 Jan, [facility] [place] [facility] [address] [id number] [place] [address]- 5092 Jan, [facility] [place] [facility] [address] [id number] [place] [address]- 4726 Jan, [facility] [place] [facility] [address] [id number] [place] [address]- 8976 Dec, [facility] [place] [facility] [address] [id number] [place] [address]- 6990 Dec, [facility] [place] [facility] [address] [id number] [place] [address]- 1531 Dec, [facility] [place] [facility] [address] [id number] [place] [address]- 2217 Dec, [facility] [place] [facility] [address] [id number] [place] [address]- 8126 Dec, [facility] [place] [facility] [address] [id number] [place] [address]- 1693 Dec, [facility] [place] [facility] [address] [id number] [place] [address]- 6688 October, [facility] [place] [facility] [address] [id number] [place] [address]- 8041 October, [facility] [place] [facility] [address] [id number] [place] [address]- 6709 October, [facility] [place] [facility] [address] [id number] [place] [address]- 9616 October, [facility] [place] [facility] [address] [id number] [place] [address]- 7133 October, [facility] [place] [facility] [address] [id number] [place] [address]- 7974 October, [facility] [place] [facility] [address] [id number] [place] [address]- 1235 October, [facility] [place] [facility] [address] [id number] [place] [address]- 0265 October, [facility] [place] [facility] [address] [id number] [place] [address]- 2086 Oct, [facility] [place] [facility] [address] [id number] [place] [address]- 0608 Oct, [facility] [place] [facility] [address] [id number] [place] [address]- 0952 Oct, [facility] [place] [facility] [address] [id number] [place] [address]- 9203 Oct, [facility] [place] [facility] [address] [id number] [place] [address]- 4151 Oct, [facility] [place] [facility] [address] [id number] [place] [address]- 5254 Aug, [facility] [place] [facility] [address] [id number] [place] [address]- 6471 Aug, [facility] [place] [facility] [address] [id number] [place] [address]- 6118 Aug, [facility] [place] [facility] [address] [id number] [place] [address]- 7308 Aug, [facility] [place] [facility] [address] [id number] [place] [address]- 8566 Aug, [facility] [place] [facility] [address] [id number] [place] [address]- 8005 07 Aug, 2013 [facility] [address] [id number] [place] [address]- 0626 Jul, [facility] [place] [facility] [address] [id number] [place] [address]- 3056 Jul, [facility] [place] [facility] [address] [facility] [id number] [place] [address]- 6953 Jul, [facility] [place] [facility] [address] [id number] [place] [address]- 9636 Jul, [facility] [place] [facility] [address] [id number] [place] [address]- 1333 Jul, [facility] [place] [facility] [address] [id number] [place] [address]- 9724 Jul, [facility] [address] [facility] [id number] [place] [address]- 9709 Jun, [facility] [place] [facility] [address] [id number] [place] [address]- 0062 Jun, [facility] [place] [facility] [address] [facility] [id number] [place] [address]- 8254 Jun, [facility] [place] [facility] [address] [facility] [id number] [place] [address]- 8664 Jun, [facility] [place] [facility] [address] [facility] [id number] [place] [address]- 5368 Jun, [facility] [place] [facility] [address] [id number] [place] [address]- 2581 Jun, [facility] [place] [facility] [address] [id number] [place] [address]- 4853 May, [facility] [place] [facility] [address] [id number] [place] [address]- 1532 May, [facility] [place] [facility] [address] [facility] [id number] [place] [address]- 2249 Apr, [facility] [place] [facility] [address] [id number] [place] [address]- 2575 24 Apr, 2012 [facility] [place] [facility] [address] [id number] [place] [address]- 1292 Apr, 2012 [facility] [place] [facility] [address] [id number] [place] [address]- 4890 Apr, [facility] [place] [facility] [address] [id number] [place] [address]- 5820 Apr, 2012 [facility] [place] [facility] [address] [id number] [place] [address]- 0663 Apr, 2012 [facility] [place] [facility] [address] [id number] [place] [address]- 8516 Apr, [facility] [place] [facility] [address] [id number] [place] [address]- 5809 18 Apr, 2013 [facility] [place] [facility] [address] [id number] [place] [address]- 6334 18 Apr, 2013 [facility] [place] [facility] [address] [id number] [place] [address]- 5950 04 Apr, 2013 [facility] [place] [facility] [address] [id number] [place] [address]- 5886 02 Apr, 2013 [facility] [place] [facility] [address] [id number] [place] [address]- 2681 23 Mar, 2012 [facility] [place] [facility] [address] [id number] [place] [address]- 8404 20 Mar, 2012 [facility] [place] [facility] [address] [id number] [place] [address]- 2544 20 Sep, 2012 [facility] [place] [facility] [address] [id number] [place] [address]- 1096 14 Sep, 2012 [facility] [place] [facility] [address] [id number] [place] [address]- 5936 12 Sep, 2012 [facility] [place] [facility] [address] [id number] [place] [address]- 7944 Mar, [facility] [place] [facility] [address] [id number] [place] [address]- 8087 Mar, [facility] [place] [facility] [address] [id number] [place] [address]- 3707 Jan, [facility] [place] [facility] [address] [id number] [place] [address]- 3284 Jan, [facility] [place] [facility] [address] [id number] [place] [address]- 9164 Jan, [facility] [place] [facility] [address] [id number] [place] [address]- 5259 Jan, [facility] [place] [facility] [address] [id number] [place] [address]- 4277 Jan, [facility] [place] [facility] [address] [id number] [place] [address]- 4636 Jan, [facility] [place] [facility] [address] [id number] [place] [address]- 9680 Jan, [facility] [place] [facility] [address] [id number] [place] [address]- 6199 Dec, [facility] [place] [facility] [address] [id number] [place] [address]- 0046 Dec, [facility] [place] [facility] [address] [id number] [place] [address]- 0635 Dec, [facility] [place] [facility] [address] [id number] [place] [address]- 1765 Dec, [facility] [place] [facility] [address] [id number] [place] [address]- 9351 Dec, [facility] [place] [facility] [address] [id number] [place] [address]- 3571 Dec, [facility] [place] [facility] [address] [id number] [place] [address]- 1397 October, [facility] [place] [facility] [address] [id number] [place] [address]- 3591 15 Oct, 2012 [facility] [address] [id number] [place] [address]- 2178 14 Oct, 2012 [facility] [address] [id number] [place] [address]- 1341 October, [facility] [address] [id number] [place] [address]- 4626 Oct, [facility] [address] [id number] [place] [address]- 2987 Oct, [facility] [address] [id number] [place] [address]- 6726 Aug, [facility] [address] [id number] [place] [address]- 6588 Aug, [facility] [address] [id number] [place] [address]- 7548 Aug, [facility] [address] [id number] [place] [address]- 0395 Aug, [facility] [address] [id number] [place] [address]- 3046 18 Aug, 2012 [facility] [address] [facility] [id number] [place] [address]- 0689 Aug, [facility] [address] [id number] [place] [address]- 0574 Aug, [facility] [address] [id number] [place] [address]- 8068 Aug, [facility] [place] [facility] [address] [id number] [place] [address]- 9861 Aug, [facility] [place] [facility] [address] [id number] [place] [address]- 4617 Aug, [facility] [address] [facility] [id number] [place] [address]- 6650 Aug, [facility] [address] [address]- 9468 Aug, [facility] [address] [address]- 5041 Aug, [facility] [id number] [address]- 6900 Aug, [facility] [id number] [address]- 4929 Jul, [facility] [address] [address]- 8825 Jul, [facility] [id number] [place] [address] 25515- 4095 Jul, [facility] [address] [address]- 0544 Jul, [facility] [address] [address]- 1666 Jun, [facility] [address] [address]- 2833 Jun, [facility] [address] [address]- 6234 Jun, [facility] [address] [address]- 6450 Jun, [facility] [address] [address]- 9021 May, [facility] [id number] [address]- 8091 May, IMMUNIZATIONS No Known Immunizations SOCIAL HISTORY Never Assessed REASON FOR VISIT f/u, contract and PDM, Schizophrenia / PTSD PLAN OF CARE Activity Details Follow Up 6 Weeks Reason: VITAL SIGNS Height 67 in 2018-05-22 Weight 321 lbs 2018-05-22 Heart Rate 84 bpm 2018-05-22 Respiratory Rate 2018-05-22 BMI 50.27 kg/m2 2018-05-22 Blood pressure systolic 142 mmHg 2018-05-22 Blood pressure diastolic 78 mmHg 2018-05-22 MEDICATIONS Medication Instructions Dosage Frequency Start Date End Date Duration Status [place] Carbonate 300 MG Orally 2 times a day 1 tablet in the morning, 2 tablets at bedtime 12h Active Breo Ellipta 100-25 MCG/INH Inhalation Once a day 1 puff 24h 20 Dec, 2015 90 days Unknown Levothyroxine Sodium 100 MCG Orally Once a day 1 tablet 24h Aug, 90 days Unknown Neurontin 800 MG Orally 2 times a day 1 tablet 12h Aug, Active HydrOXYzine HCl 25 MG Orally Three times per day for anxiety 1 tablet as needed Dec, Active Clonazepam 2 MG Orally 2 times a day for anxiety, panic, and EPS 1/2 tablet Apr, Active Trazodone HCl 100 mg Orally Once a day 2 tablet at bedtime 24h Active Aristada 882 MG/3.2ML Intramuscular once monthly 3.2 ml May, Active RESULTS No Results PROCEDURES No Known procedures [...]
--- OUTSIDE RECORDS SUMMARY | 2018-09-02 17:47 | XMS REPORT ---
Author Author JOSE LARRY Organization [facility] Address [address] [place] [address] Care Team Providers [employer] Counselor Name Role Phone JOSE LARRY Unavailable PROBLEMS Type Condition ICD9-CM Code [id number] Code Onset Dates Condition Status SNOMED Code Problem 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 Active 00443984 Problem Depressive disorder, not elsewhere classified F32.9 Active 06378320 Problem Chronic posttraumatic stress disorder F43.12 Active 128111486 Problem Insomnia G47.00 Active 035039578 Problem Obesity E66.9 Active 679435574 Problem Other chronic pain G89.29 Active 41963717 Problem Fatty liver K76.0 Active 675070314 Problem Abuse, drug or alcohol F19.10 Active 89522555 Problem Panic disorder without agoraphobia F41.0 Active 90925799 Problem Panic disorder F41.0 Active 520979301 Problem Hypothyroid E03.9 Active 96903594 Problem BMI 50.0-59.9, adult Z68.43 Active 901377123 Problem Restless legs syndrome G25.81 Active 349747498 Problem Encounter for therapeutic drug level monitoring Z51.81 Active 988038818 Problem Neuropathy G62.9 Active 219895974 Problem 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 Active 42435355 Problem Tachycardia R00.0 Active 7037421 Problem Murmur R01.1 Active 797157451 Problem Orthostatic hypertension I10 Active 13592419 Problem Shortness of breath R06.02 Active 391190330 Problem Sleep apnea in adult G47.33 Active 63330520 Problem Tunnel vision, unspecified laterality H53.489 Active 518616234 Problem Undifferentiated schizophrenia F20.3 Active 293082769 ALLERGIES No Information ENCOUNTERS Encounter Location Date Diagnosis [facility] [address] [facility] [id number] [address] Jul, [facility] [id number] [place] [address] 04947- 6058 Jun, [facility] [id number] [place] [address] 49776- 8128 May, Thyroid disorder E07.9 [facility] [id number] [place] [address] 23234- 5023 May, Undifferentiated schizophrenia F20.3 ; PTSD (post-traumatic stress disorder) F43.10 ; 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 ; Obesity E66.9 and BMI 50.0-59.9, adult Z68.43 [facility] [id number] [place] [address] 95620- 1108 May, [facility] [id number] [place] [address] 65491- 8509 May, [facility] [id number] [place] [address] 31368- 2803 May, [facility] [id number] [place] [address] 09699- 1735 Apr, [facility] [id number] [place] [address] 76710- 1561 Apr, [facility] [id number] [place] [address] 88382- 9839 Apr, Undifferentiated schizophrenia F20.3 ; 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 ; 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 and BMI 50.0-59.9, adult Z68.43 [facility] [id number] [place] [address] 54596- 1832 Apr, [facility] [id number] [place] [address] 75726- 7155 Apr, Undifferentiated schizophrenia F20.3 [facility] [id number] [place] [address] 99788- 3577 Mar, Undifferentiated schizophrenia F20.3 [facility] [address] [id number] [address] 5295 Mar, [facility] [address] [place] [address] 04413- 5170 Mar, Undifferentiated schizophrenia F20.3 [facility] [address], [place] [address]- 2469 Jan, [facility] [address] [place] [address] 90463- 4768 Jan, Undifferentiated schizophrenia F20.3 [facility] [address] [place] [address], [place] [address]- 9506 Jan, [facility] [address] [place] [address] 11240- 9288 Jan, Undifferentiated schizophrenia F20.3 [facility] [address], [place] [address] 4705 Dec, [facility] [address] [place] [address] 53549- 4322 Dec, [facility] [address] [place] [address] 59144- 4667 Dec, [facility] [address] [address] 5195 Dec, Undifferentiated schizophrenia F20.3 ; 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 ; Chronic posttraumatic stress disorder F43.12 and BMI 50.0- 59.9, adult Z68.43 [facility] [address], [place] [address] Dec, [facility] [address] [place] [address] 38853- 7582 Dec, Undifferentiated schizophrenia F20.3 ; Insomnia G47.00 and Thyroid disorder E07.9 [facility] [address], [place] [address] 2227 Dec, Undifferentiated schizophrenia F20.3 [facility] [address], [place] [address]- 5682 18 Dec, 2017 [facility] [address] [place] [address] 39103- 8425 15 Dec, 2017 [facility] [address], [place] [address]- 8543 14 Dec, 2017 BMI 50.0-59.9, adult Z68.43 ; Undifferentiated schizophrenia F20.3 ; Panic disorder without agoraphobia F41.0 and Chronic posttraumatic stress disorder F43.12 [facility] [address], [place] [address]- 0599 04 Dec, 2017 [facility] [id number] [place] [address] 01640- 0945 October, [facility] [id number] [place] [address] 29258- 5412 14 Oct, 2017 Pain in right shoulder M25.511 and Other chronic pain G89.29 [facility] [address], [place] [address]- 6932 07 Oct, 2017 Hypothyroid E03.9 [facility] [id number] [place] [address] 30595- 2512 30 Oct, 2017 Undifferentiated schizophrenia F20.3 [facility] [address], [place] [address]- 7505 Oct, [facility] [address], [place] [address]- 4513 Oct, [facility] [address], [place] [address]- 1430 Aug, Undifferentiated schizophrenia F20.3 [facility] [address], [place] [address]- 4120 Aug, [facility] [address], [place] [address]- 9005 Aug, Undifferentiated schizophrenia F20.3 ; 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 ; Chronic posttraumatic stress disorder F43.12 and BMI 50.0- 59.9, adult Z68.43 [facility] [id number] [place] [address] 50247- 2972 Aug, [facility] [id number] [place] [address] 38110- 0333 Aug, [facility] [id number] [place] [address] 07981- 0290 Aug, Undifferentiated schizophrenia F20.3 [facility] [id number] [place] [address] 88882- 5047 Aug, Hypothyroid E03.9 [facility] [id number] [place] [address] 99230- 4062 Jul, Undifferentiated schizophrenia F20.3 [facility] [id number] [place] [address] 16189- 4752 Jul, [facility] [id number] [place] [address] 09650- 0318 Jul, Undifferentiated schizophrenia F20.3 ; Chronic posttraumatic stress disorder F43.12 ; 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 and BMI 50.0-59.9, adult Z68.43 [facility] [id number] [place] [address] 27426- 7331 15 Jul, 2017 [facility] [id number] [place] [address] 20393- 1423 08 Jul, 2017 Acute pain of right shoulder M25.511 ; High risk medication use Z79.899 ; Needle stick injury W27.3XXA ; Hypothyroid E03.9 and BMI 50.0-59.9 , adult Z68.43 [facility] [id number] [place] [address] 79728- 4171 Jun, Undifferentiated schizophrenia F20.3 [facility] [id number] [place] [address] 51040- 7521 Jun, Undifferentiated schizophrenia F20.3 ; Panic disorder without agoraphobia F41.0 ; Chronic posttraumatic stress disorder F43.12 and BMI 50.0-59.9, adult Z68.43 [facility] [id number] [place] [address] 27136- 1831 May, [facility] [id number] [place] [address] 18833- 0898 May, [facility] [id number] [place] [address] 77969- 2834 May, Undifferentiated schizophrenia F20.3 [facility] [id number] [place] [address] 21662- 4452 May, [facility] [id number] [place] [address] 07065- 1575 May, [facility] [id number] [place] [address] 06174- 1069 15 May, 2017 Hypothyroid E03.9 [facility] [id number] [place] [address] 23745- 5127 13 May, 2017 [facility] [id number] [place] [address] 96287- 3915 10 May, 2017 [facility] [id number] [place] [address] 61731- 9424 07 May, 2017 Chronic posttraumatic stress disorder F43.12 ; 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 ; Undifferentiated schizophrenia F20.3 ; BMI 40.0-44.9, adult Z68.41 and Obesity E66.9 [facility] [address] [place] [address] 22949- 3848 07 May, 2017 Shortness of breath R06.02 [facility] [id number] [place] [address] 41212- 0748 May, [facility] [address], [place] [address]- 3064 Apr, Undifferentiated schizophrenia F20.3 [facility] [address], [place] [address]- 2570 Apr, [facility] [id number] [place] [address] 79806- 6598 Apr, [facility] [address] [place] [address] 67077- 6839 Mar, Undifferentiated schizophrenia F20.3 ; Panic disorder without agoraphobia F41.0 and Chronic posttraumatic stress disorder F43.12 [facility] [address] [place] [address] 79296- 2636 Mar, Undifferentiated schizophrenia F20.3 [facility] [id number] [place] [address] 76268- 1820 Mar, [facility] [address] [place] [address] 19470- 2073 08 Mar, 2017 [facility] [id number] [place] [address] 83042- 7208 Mar, [facility] [address] [place] [address] 15638- 1133 Jan, Undifferentiated schizophrenia F20.3 [facility] [address] [place] [address] 97653- 3886 Jan, [facility] [address], [place] [address]- 7440 Jan, [facility] [address], [place] [address]- 3449 Jan, [facility] [address] [facility] [id number] [id number] Dec, Needle stick injury W27.3XXA [facility] [address] [place] [address] 60506- 9611 Dec, Needle stick injury W27.3XXA [facility] [address] [place] [address] 39524- 6250 Dec, Undifferentiated schizophrenia F20.3 [facility] [address] [facility] [id number], [place] [address]- 3274 Dec, [facility] [address] [facility] [id number], [place] [address]- 4622 Dec, [facility] [id number], [place] [address]- 8261 Dec, Undifferentiated schizophrenia F20.3 ; 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 and Chronic posttraumatic stress disorder F43.12 [facility] [address] [facility] [id number], [place] [address]- 6229 Dec, [facility] [id number] [address]- 3887 October, [facility] [id number], [place] [address]- 7056 October, Undifferentiated schizophrenia F20.3 [facility] [id number], [place] [address]- 8491 October, [facility] [id number], [place] [address]- 7230 October, [facility] [id number], [place] [address]- 2238 Oct, Undifferentiated schizophrenia F20.3 ; 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 ; Chronic posttraumatic stress disorder F43.12 and Obesity E66.9 [facility] [id number], [place] [address]- 1295 Oct, [facility] [address] [facility] [id number], [place] [address]- 2545 Oct, [facility] [address] [facility] [id number], [place] [address]- 2868 Aug, Undifferentiated schizophrenia F20.3 [facility] [id number], [place] [address]- 6235 Aug, [facility] [id number] [place] [address] 62160- 6147 13 Aug, 2016 Muscle spasm M62.838 [facility] [id number] [place] [address] 62208- 2056 06 Aug, 2016 Undifferentiated schizophrenia F20.3 [facility] [id number] [place] [address] 79925- 6265 Aug, Undifferentiated schizophrenia F20.3 ; 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 ; Chronic posttraumatic stress disorder F43.12 ; High risk medication use Z79.899 and 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 [place] [id number] [place] [address] 03864- 1676 Aug, Undifferentiated schizophrenia F20.3 [facility] [id number] [place] [address] 71659- 3222 Aug, [facility] [address] 12364- 5858 Aug, Acute non-recurrent maxillary sinusitis J01.00 [facility] [id number] [place] [address] 09392- 2259 Aug, [facility] [id number] [place] [address] 66604- 4063 Aug, [facility] [id number] [place] [address] 84499- 4355 Jul, Undifferentiated schizophrenia F20.3 [facility] [id number] [place] [address] 69183- 2045 Jul, Schizophrenia, undifferentiated F20.3 ; 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 ; Post-traumatic stress disorder F43.10 ; Panic disorder F41.0 and Depressive disorder, not elsewhere classified F32.9 [facility] [id number] [place] [address] 83926- 6742 Jul, [facility] [id number] [place] [address] 25152- 5189 Jul, Schizophrenia, undifferentiated F20.3 ; 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 ; Post-traumatic stress disorder F43.10 ; Panic disorder F41.0 and Depressive disorder, not elsewhere classified F32.9 [facility] [id number] [place] [address] 15679- 7735 Jul, [facility] [id number] [place] [address] 11131- 8761 Jul, Undifferentiated schizophrenia F20.3 ; 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 ; 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 ; Obesity E66.9 and Chronic posttraumatic stress disorder F43.12 [facility] [id number] [place] [address] 72717- 2642 Jun, [facility] [id number] [place] [address] 44606- 5826 Jun, [facility] [id number] [place] [address] 81084- 3269 Jun, Dental caries K02.9 [facility] [id number] [place] [address] 67934- 0227 Jun, Undifferentiated schizophrenia F20.3 [facility] [id number] [place] [address] 37768- 1578 May, [facility] [address] [place] [address] 83535- 0740 May, Undifferentiated schizophrenia F20.3 ; 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 and Chronic post-traumatic stress disorder (PTSD) F43.12 [facility] [id number] [place] [address] 18616- 7683 May, [facility] [id number] [place] [address] 27273- 8680 May, Undifferentiated schizophrenia F20.3 [facility] [address] [place] [address] 02022- 1225 May, [facility] [id number] [place] [address] 55131- 1044 07 May, 2016 Dental examination Z01.20 [facility] [facility] [address] 92757- 0679 Apr, Undifferentiated schizophrenia F20.3 ; PTSD (post-traumatic stress disorder) F43.10 and Obesity E66.9 [place] [address] 66917- 1125 18 Apr, 2016 [place] [address] 90249- 2383 15 Mar, 2016 [place] [address] 41353- 2641 09 Mar, 2016 [place] [address] 74551- 2087 31 Feb, 2016 Shortness of breath R06.02 and Bipolar disorder with psychotic features F31.9 [place] [address] 94009- 9062 Jan, [place] [address] 82228- 9943 Jan, Increased intracranial pressure G93.2 ; Visual disturbance H53.9 and Bipolar II disorder F31.81 [facility] [facility] [id number] [place] [address] 93173- 0336 Jan, [place] [id number] [place] [address] 55013- 7019 Jan, [facility] [facility] [id number] [place] [address] 05264- 8136 Jan, [place] [address] 22671- 5199 Jan, Acquired hypothyroidism E03.9 ; Depression F32.9 and Insomnia G47.00 [place] [address] 17143- 6375 Jan, Exertional dyspnea R06.09 ; Heart palpitations R00.2 ; Hyperlipidemia, unspecified hyperlipidemia type E78.5 ; Hypothyroidism, unspecified type E03.9 and Hypokalemia E87.6 [place] [id number] [place] [address]- [address]94 Dec, PTSD (post-traumatic stress disorder) F43.10 ; Depression F32.9 ; Insomnia G47.00 and Bipolar disorder with psychotic features F31.9 [place] [address] 62715- 0576 Dec, Increased intracranial pressure G93.[address] 405381- 1484 Dec, [address] 65766- 7230 Dec, Shortness of breath R06.[address] 32034- 2108 Dec, Visual disturbance H53.9 and Headache, unspecified headache type R51 [address] 84450- 4400 Dec, Insomnia G47.[address] 83247- 7003 Dec, Murmur R01.1 [place] [id number] [place] [address] 62133- 4361 Dec, Murmur R01.1 ; Tunnel vision, unspecified laterality H53.489 ; Orthostatic hypertension I10 ; Shortness of breath R06.02 and Tachycardia R00.[address] 04471- 7152 Dec, [address] 61743- 7238 Dec, Hypothyroid E03.9 and Bipolar 1 disorder F31.9 [place] [address] [place] [address]- 6195 Dec, Bipolar 1 disorder F31.9 [facility] [id number] [place] [address] 53004- 3951 Dec, [facility] [id number] [place] [address] 57881- 0529 October, Acquired hypothyroidism E03.9 ; Depression F32.9 and Insomnia G47.00 [facility] [id number] [place] [address] 84728- 9765 October, [facility] [id number] [place] [address] 94391- 6682 October, Bipolar 1 disorder F31.9 ; PTSD (post-traumatic stress disorder) F43.10 and 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 [facility] [id number] [place] [address] 87536- 9328 Oct, Bipolar 1 disorder F31.9 and Insomnia G47.00 [facility] [id number] [place] [address] 49860- 9938 Oct, [facility] [id number] [place] [address] 47515- 1424 Oct, [facility] [id number] [place] [address] 09640- 8889 Aug, Hypothyroid E03.9 [facility] [id number] [place] [address] 31891- 7177 Aug, Encounter for therapeutic drug level monitoring Z51.81 and 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 [facility] [id number] [place] [address] 08129- 6607 Aug, Encounter for therapeutic drug level monitoring Z51.81 [facility] [address] [place] [address] 21751- 1194 Aug, Acquired hypothyroidism E03.9 ; Leg pain M79.606 and Bipolar 1 disorder F31.9 [facility] [id number] [place] [address] 50040- 7135 Aug, [facility] [address] 64338- 3231 Aug, [facility] [id number] [place] [address] 38135- 7301 Jul, Thyroid disorder E07.9 [facility] [address] 69700- 0432 Jul, Rash R21 ; Abnormal LFTs R94.5 ; Acquired hypothyroidism E03.9 ; Sleep apnea in adult G47.33 and Fatty liver K76.0 [place] [id number] [place] [address] 98472- 5080 Jun, [facility] [address] 34728- 2714 Jun, [facility] [address] 31704- 3031 Jun, Bipolar II disorder F31.81 and Social phobia, generalized F40.11 [place] [id number] [place] [address] 23396- 3556 Mar, Bipolar II disorder 296.89 and Social phobia 300.23 [facility] [id number] [place] [address] 85588- 2401 Dec, [facility] [id number] [place] [address] 21836- 4188 Dec, [facility] [id number] [place] [address] 21489- 6679 Dec, Bipolar II disorder in partial or unspecified remission 296.89 and Social phobia, generalized 300.23 [facility] [id number] [place] [address] 88387- 9310 Oct, 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 [facility] [address] [place] [address]- 2557 14 Oct, 2014 [facility] [place] [facility] [address] [id number] [place] [address] Oct, [facility] [place] [facility] [address] [id number] [place] [address] Aug, [facility] [place] [facility] [address] [id number] [place] [address] Aug, [facility] [place] [facility] [address] [id number] [place] [address] Aug, [facility] [place] [facility] [address] [id number] [place] [address] Aug, [facility] [place] [facility] [address] [id number] [place] [address] Aug, [facility] [place] [facility] [address] [id number] [place] [address] Aug, [facility] [place] [facility] [address] [id number] [place] [address] Aug, [facility] [place] [facility] [address] [id number] [place] [address] Aug, [facility] [place] [facility] [address] [id number] [place] [address] Jul, [facility] [place] [facility] [address] [id number] [place] [address] Jul, [facility] [place] [facility] [address] [id number] [place] [address] Jul, [facility] [place] [facility] [address] [id number] [place] [address] Jul, [facility] [place] [facility] [address] [id number] [place] [address] Jul, [facility] [place] [facility] [address] [id number] [address] Jul, [facility] [place] [facility] [address] [id number] [place] [address] Jun, [facility] [place] [facility] [address] [id number] [place] [address] Jun, [facility] [place] [facility] [address] [id number] [place] [address] Jun, [facility] [place] [facility] [address] [id number] [place] [address] Jun, [facility] [place] [facility] [address] [id number] [place] [address] Jun, [facility] [place] [facility] [address] [id number] [place] [address] Jun, [facility] [place] [facility] [address] [id number] [place] [address] Jun, [facility] [place] [facility] [address] [id number] [place] [address] 1479 Jun, [facility] [place] [facility] [address] [id number] [place] [address] 18[address] Jun, [facility] [place] [facility] [address] [id number] [place] [address] Jun, [facility] [place] [facility] [address] [id number] [place] [address] Jun, [facility] [place] [facility] [address] [id number] [place] [address]- 2183 Jun, [facility] [place] [facility] [address] [id number] [place] [address] 9892 Jun, [facility] [place] [facility] [address] [id number] [place] [address] 9795 Jun, [facility] [place] [facility] [address] [id number] [place] [address] Jun, [facility] [place] [facility] [address] [id number], [place] [address] Jun, [facility] [place] [facility] [address] [id number] [place] [address]- 1227 May, [facility] [place] [facility] [address] [id number] [place] [address]- 0897 May, [facility] [place] [facility] [address] [facility] [id number] [place] [address] 3307 May, [facility] [place] [facility] [address] [id number] [place] [address]- 8711 May, [facility] [place] [facility] [address] [id number] [place] [address]- 1151 May, [facility] [place] [facility] [address] [id number] [place] [address]- 7327 May, [facility] [place] [facility] [address] [id number] [place] [address]- 2470 Apr, [facility] [place] [facility] [address] [id number], [place] [address] Apr, [facility] [place] [facility] [address] [id number], [place] [address] 7507 Apr, [facility] [place] [facility] [address] [id number], [place] [address] 1000 Apr, [facility] [place] [facility] [address] [id number], [place] [address] 1974 Apr, [facility] [place] [facility] [address] [id number], [place] [address] 235[address] Apr, [facility] [place] [facility] [address] [id number] [place] [address] 6802 Mar, [facility] [place] [facility] [address] [id number] [place] [address] 8303 Mar, [facility] [place] [facility] [address] [id number], [place] [address] 3260 Mar, [facility] [place] [facility] [address] [id number] [place] [address] 1602 Mar, [facility] [address] [id number] [place] [address] 8592 Jan, [facility] [place] [facility] [address] [id number] [place] [address]- 0363 Jan, [facility] [place] [facility] [address] [id number] [place] [address] 1802 Jan, [facility] [place] [facility] [address] [id number] [place] [address]- 7045 Jan, [facility] [place] [facility] [address] [id number] [place] [address]- 0086 Jan, [facility] [place] [facility] [address] [id number] [place] [address]- 4331 Jan, [facility] [place] [facility] [address] [id number] [place] [address]- 2892 Dec, [facility] [place] [facility] [address] [id number] [place] [address] 8463 Dec, [facility] [place] [facility] [address] [id number] [place] [address]- 3[address] Dec, [facility] [place] [facility] [address] [id number] [place] [address] 1953 Dec, [facility] [place] [facility] [address] [id number] [place] [address] 1890 Dec, [facility] [place] [facility] [address] [id number] [place] [address]- 7624 Dec, [facility] [place] [facility] [address] [id number] [place] [address]- 1151 October, [facility] [place] [facility] [address] [id number] [place] [address] 2142 October, [facility] [place] [facility] [address] [id number] [place] [address] 6044 October, [facility] [place] [facility] [address] [id number] [place] [address]- 4369 October, [facility] [place] [facility] [address] [id number] [place] [address]- 4260 October, [facility] [place] [facility] [address] [id number] [place] [address]- 0538 October, [facility] [place] [facility] [address] [id number] [place] [address]- 9883 October, [facility] [place] [facility] [address] [id number] [place] [address]- 0146 October, [facility] [place] [facility] [address] [id number] [place] [address]- 9549 Oct, [facility] [place] [facility] [address] [id number] [place] [address]- 3041 Oct, [facility] [place] [facility] [address] [id number] [place] [address]- 4890 Oct, [facility] [place] [facility] [address] [id number] [place] [address]- 3352 Oct, [facility] [place] [facility] [address] [id number] [place] [address]- 3892 Oct, [facility] [place] [facility] [address] [id number] [place] [address] 1884 Aug, [facility] [place] [facility] [address] [id number] [place] [address]- 5252 Aug, [facility] [place] [facility] [address] [id number] [place] [address]- 4565 Aug, [facility] [place] [facility] [address] [id number] [place] [address]- 1803 Aug, [facility] [place] [facility] [address] [id number] [place] [address] Aug, [facility] [place] [facility] [address] [id number] [place] [address]- 0613 07 Aug, 2013 [facility] [address] [id number] [place] [address]- 3421 07 Jul, 2013 [facility] [place] [facility] [address] [id number] [place] [address]- 2558 Jul, [facility] [place] [facility] [address] [id number] [place] [address]- 2772 Jul, [facility] [place] [facility] [address] [id number] [place] [address]- 2805 Jul, [facility] [place] [facility] [address] [id number] [place] [address]- 4101 Jul, [facility] [place] [facility] [address] [id number] [place] [address]- 6445 Jul, [facility] [address] [id number] [place] [address]- 5042 Jun, [facility] [place] [facility] [address] [id number] [place] [address]- 8993 Jun, [facility] [place] [facility] [address] [id number] [place] [address]- 1328 Jun, [facility] [place] [facility] [address] [id number] [place] [address]- 0056 Jun, [facility] [place] [facility] [address] [id number] [place] [address]- 1825 Jun, [facility] [place] [facility] [address] [id number] [place] [address]- 6072 Jun, [facility] [place] [facility] [address] [id number] [place] [address]- 0699 May, [facility] [place] [facility] [address] [id number] [place] [address]- 7065 May, [facility] [place] [facility] [address] [id number] [place] [address]- 5373 Apr, [facility] [place] [facility] [address] [id number] [place] [address]- 3917 24 Apr, 2013 [facility] [place] [facility] [address] [id number] [place] [address]- 2184 Apr, [facility] [place] [facility] [address] [id number] [place] [address]- 7873 Apr, [facility] [place] [facility] [address] [id number] [place] [address]- 2259 Apr, [facility] [place] [facility] [address] [id number] [place] [address]- 9264 Apr, [facility] [place] [facility] [address] [id number] [place] [address]- 6948 Apr, [facility] [place] [facility] [address] [id number] [place] [address]- 0094 Apr, [facility] [place] [facility] [address] [id number] [place] [address]- 3236 Apr, [facility] [place] [facility] [address] [id number] [place] [address]- 9781 Apr, [facility] [place] [facility] [address] [id number] [place] [address]- 4006 Apr, [facility] [place] [facility] [address] [id number] [place] [address]- 3922 23 Mar, 2013 [facility] [place] [facility] [address] [id number] [place] [address]- 3554 20 Mar, 2012 [facility] [place] [facility] [address] [id number] [place] [address]- 5075 20 Mar, 2012 [facility] [place] [facility] [address] [id number] [place] [address]- 4965 14 Sep, 2012 [facility] [place] [facility] [address] [id number] [place] [address]- 8880 12 Mar, 2012 [facility] [place] [facility] [address] [id number] [place] [address]- 8136 Mar, [facility] [place] [facility] [address] [id number] [place] [address] Mar, [facility] [place] [facility] [address] [id number] [place] [address]- 6315 Jan, [facility] [place] [facility] [address] [id number] [place] [address]- 9236 Jan, [facility] [place] [facility] [address] [id number] [place] [address]- 9503 Jan, [facility] [place] [facility] [address] [id number] [place] [address]- 1848 Jan, [facility] [place] [facility] [address] [id number] [place] [address]- 1274 Jan, [facility] [place] [facility] [address] [id number] [place] [address]- 5813 Jan, [facility] [place] [facility] [address] [id number] [place] [address]- 4391 Jan, [facility] [place] [facility] [address] [id number] [place] [address]- 8076 Dec, [facility] [place] [facility] [address] [id number] [place] [address]- 3548 Dec, [facility] [place] [facility] [address] [id number] [place] [address]- 0978 Dec, [facility] [place] [facility] [address] [id number] [place] [address]- 8712 Dec, [facility] [place] [facility] [address] [id number] [place] [address]- 9250 Dec, [facility] [place] [facility] [address] [id number] [place] [address]- 1735 Dec, [facility] [place] [facility] [address] [id number] [place] [address]- 0401 October, [facility] [place] [facility] [address] [id number] [place] [address]- 0465 15 Oct, 2012 [facility] [address] [id number] [place] [address]- 9078 14 Oct, 2012 [facility] [address] [id number] [place] [address]- 2756 10 Oct, 2012 [facility] [address] [id number] [place] [address]- 9313 Oct, [facility] [address] [id number] [place] [address]- 1257 Oct, [facility] [address] [id number] [place] [address]- 6923 27 Aug, 2012 [facility] [address] [id number] [place] [address]- 5587 Aug, [facility] [address] [id number] [place] [address]- 2717 Aug, [facility] [address] [id number] [place] [address]- 6237 Aug, [facility] [address] [id number] [place] [address]- 8002 18 Aug, 2012 [facility] [address] [facility] [id number] [place] [address]- 2294 07 Aug, 2012 [facility] [address] [id number] [place] [address]- 2848 Aug, [facility] [address] [id number] [place] [address]- 5665 Aug, [facility] [address] [id number] [place] [address]- 5226 19 Aug, 2012 [facility] [address] [id number] [place] [address]- 2546 Aug, [facility] [address] [id number] [place] [address]- 3114 Aug, [facility] [address] [id number], [place] [address]- 9205 Aug, [facility] [id number], [place] [address]- 2106 Aug, [facility] [id number], [place] [address]- 1476 Aug, [facility] [id number], [place] [address]- 5992 Jul, [facility] [id number], [place] [address]- 6423 Jul, [facility] [id number], [place] [address]- 6776 Jul, [facility] [address], [place] [address]- 0280 Jul, [facility] [id number], [place] [address]- 1889 Jun, [facility] [address], [place] [address]- 8578 Jun, [facility] [id number], [place] [address]- 9977 Jun, [facility] [address] [id number], [place] [address]- 5630 Jun, [facility] [id number], [place] [address]- 6628 May, [facility] [address] [id number], [place] [address]- 8119 May, IMMUNIZATIONS No Known Immunizations SOCIAL HISTORY Never Assessed REASON FOR VISIT Repository Medication PLAN OF CARE VITAL SIGNS MEDICATIONS Medication Instructions Dosage Frequency Start Date End Date Duration Status Levothyroxine Sodium 100 MCG Orally Once a day 1 tablet 24h Aug, 90 days Active RESULTS No Results PROCEDURES No Known [...]
--- OUTSIDE RECORDS SUMMARY | 2018-09-02 17:48 | XMS REPORT ---
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 Name Role Phone DIGNA GUERRERO Unavailable PROBLEMS Type Condition ICD9-CM Code VNS15-JU Code Onset Dates Condition Status SNOMED Code Problem 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 Active 82880849 Problem Depressive disorder, not elsewhere classified F32.9 Active 18127698 Problem Chronic posttraumatic stress disorder F43.12 Active 013005984 Problem Insomnia G47.00 Active 075300443 Problem Obesity E66.9 Active 777160422 Problem Other chronic pain G89.29 Active 24420876 Problem Fatty liver K76.0 Active 583526469 Problem Abuse, drug or alcohol F19.10 Active 76113893 Problem Panic disorder without agoraphobia F41.0 Active 03054374 Problem Panic disorder F41.0 Active 936185603 Problem Hypothyroid E03.9 Active 50891656 Problem BMI 50.0-59.9, adult Z68.43 Active 593413422 Problem Restless legs syndrome G25.81 Active 958622547 Problem Encounter for therapeutic drug level monitoring Z51.81 Active 795029157 Problem Neuropathy G62.9 Active 018025750 Problem 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 Active 14240568 Problem Tachycardia R00.0 Active 0500974 Problem Murmur R01.1 Active 077039595 Problem Orthostatic hypertension I10 Active 39301779 Problem Shortness of breath R06.02 Active 141738302 Problem Sleep apnea in adult G47.33 Active 63260412 Problem Tunnel vision, unspecified laterality H53.489 Active 670471695 Problem Undifferentiated schizophrenia F20.3 Active 163716525 ALLERGIES No Information ENCOUNTERS Encounter Location Date Diagnosis [facility] [id number] [address] May, [facility] [address] [address] 2251 May, [facility] [id number] [place] [address] 20213- 3357 May, [facility] [id number] [place] [address] 96409- 4405 May, [facility] [id number] [place] [address] 70263- 6787 Apr, [facility] [id number] [place] [address] 47244- 4834 Apr, [facility] [id number] [place] [address] 69396- 5360 Apr, Undifferentiated schizophrenia F20.3 ; 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 ; 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 and BMI 50.0-59.9, adult Z68.43 [facility] [id number] [place] [address] 94859- 3237 Apr, [facility] [id number] [place] [address] 67598- 9368 Apr, Undifferentiated schizophrenia F20.3 [facility] [id number] [place] [address] 75005- 4774 Mar, Undifferentiated schizophrenia F20.3 [facility] [id number] [place] [address] 60128- 4202 Mar, [facility] [id number] [place] [address] 75450- 2042 14 Mar, 2018 Undifferentiated schizophrenia F20.3 [facility] [id number] [place] [address] 95926- 9585 Jan, [facility] [id number] [place] [address] 34935- 2732 Jan, Undifferentiated schizophrenia F20.3 [facility] [id number] [place] [address] 45693- 0247 Jan, [facility] [address], [place] [address] 9427 Jan, Undifferentiated schizophrenia F20.3 [facility] [id number] [address] 6537 Dec, [facility] [address] [address] 4429 Dec, [facility] [id number] [place] [address] 99872- 3510 Dec, [facility] [address], [place] [address] 9846 Dec, Undifferentiated schizophrenia F20.3 ; 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 ; Chronic posttraumatic stress disorder F43.12 and BMI 50.0- 59.9, adult Z68.43 [facility] [id number] [place] [address] 19262- 7811 Dec, [facility] [id number] [place] [address] 35584- 5415 Dec, Undifferentiated schizophrenia F20.3 ; Insomnia G47.00 and Thyroid disorder E07.9 [facility] [address], [place] [address] 7549 Dec, Undifferentiated schizophrenia F20.3 [facility] [address] [address]- 7785 Dec, [facility] [id number] [address] 4299 Dec, [facility] [address], [place] [address] 8834 14 Dec, 2017 BMI 50.0-59.9, adult Z68.43 ; Undifferentiated schizophrenia F20.3 ; Panic disorder without agoraphobia F41.0 and Chronic posttraumatic stress disorder F43.12 [facility] [address] [address] 6589 Dec, [facility] [id number] [place] [address] 31077- 5309 October, [facility] [id number] [place] [address] 33667- 4060 October, Pain in right shoulder M25.511 and Other chronic pain G89.29 [facility] [id number] [place] [address] 41500- 6287 October, Hypothyroid E03.9 [facility] [id number] [place] [address] 24638- 9051 Oct, Undifferentiated schizophrenia F20.3 [facility] [id number] [place] [address] 18159- 5769 Oct, [facility] [id number] [place] [address] 09099- 9439 Oct, [facility] [id number] [place] [address] 03795- 8539 Aug, Undifferentiated schizophrenia F20.3 [facility] [id number] [place] [address] 03232- 4346 Aug, [facility] [id number] [place] [address] 01770- 6091 Aug, Undifferentiated schizophrenia F20.3 ; 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 ; Chronic posttraumatic stress disorder F43.12 and BMI 50.0- 59.9, adult Z68.43 [facility] [id number] [place] [address] 43079- 4578 Aug, [facility] [id number] [place] [address] 24723- 6661 Aug, [facility] [id number] [place] [address] 17511- 4607 Aug, Undifferentiated schizophrenia F20.3 [facility] [id number] [place] [address] 27709- 6752 Aug, Hypothyroid E03.9 [facility] [address], [place] [address]- 3339 Jul, Undifferentiated schizophrenia F20.3 [facility] [id number] [place] [address] 95886- 5655 Jul, [facility] [id number] [place] [address] 53681- 7322 Jul, Undifferentiated schizophrenia F20.3 ; Chronic posttraumatic stress disorder F43.12 ; 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 and BMI 50.0-59.9, adult Z68.43 [facility] [id number] [place] [address] 51921- 1854 Jul, [facility] [id number] [place] [address] 21694- 8808 Jul, Acute pain of right shoulder M25.511 ; High risk medication use Z79.899 ; Needle stick injury W27.3XXA ; Hypothyroid E03.9 and BMI 50.0-59.9 , adult Z68.43 [facility] [id number] [place] [address] 34500- 0424 Jun, Undifferentiated schizophrenia F20.3 [facility] [id number] [place] [address] 69622- 4668 14 Jun, 2017 Undifferentiated schizophrenia F20.3 ; Panic disorder without agoraphobia F41.0 ; Chronic posttraumatic stress disorder F43.12 and BMI 50.0-59.9, adult Z68.43 [facility] [address], [place] [address]- 2429 May, [facility] [id number] [place] [address] 57225- 4734 May, [facility] [id number] [place] [address] 23955- 2156 May, Undifferentiated schizophrenia F20.3 [facility] [id number] [place] [address] 29205- 2250 May, [facility] [address], [place] [address]- 7477 May, [facility] [id number] [place] [address] 24335- 0253 May, Hypothyroid E03.9 [facility] [id number] [place] [address] 96079- 8226 May, [facility] [id number] [place] [address] 96364- 9485 May, [facility] [id number] [place] [address] 11331- 3195 07 May, 2017 Chronic posttraumatic stress disorder F43.12 ; 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 ; Undifferentiated schizophrenia F20.3 ; BMI 40.0-44.9, adult Z68.41 and Obesity E66.9 [facility] [id number] [place] [address] 03220- 4527 May, Shortness of breath R06.02 [facility] [id number] [place] [address] 25964- 1870 May, [facility] [id number] [place] [address] 25086- 5047 Apr, Undifferentiated schizophrenia F20.3 [facility] [address] [address]- 8854 Apr, [facility] [address], [place] [address]- 9160 Apr, [facility] [id number] [place] [address] 58559- 7859 Mar, Undifferentiated schizophrenia F20.3 ; Panic disorder without agoraphobia F41.0 and Chronic posttraumatic stress disorder F43.12 [facility] [address], [place] [address]- 8407 Mar, Undifferentiated schizophrenia F20.3 [facility] [address] [facility] [id number], [place] [address]- 6103 18 Mar, 2017 [facility] [address] [facility] [id number] [place] [address] 07249- 2644 08 Mar, 2017 [facility] [address] [facility] [id number], [place] [address]- 1361 Mar, [facility] [address] [facility] [id number] [place] [address] 89394- 1090 Jan, Undifferentiated schizophrenia F20.3 [facility] [address] [facility] [id number] [place] [address] 98038- 9500 Jan, [facility] [address] [facility] [id number] [place] [address] 03947- 1848 Jan, [facility] [id number], [place] [address]- 2454 Jan, [address] [id number] [id number] Dec, Needle stick injury W27.3XXA [facility] [id number] [place] [address] 55292- 8751 Dec, Needle stick injury W27.3XXA [facility] [id number], [place] [address]- 5091 Dec, Undifferentiated schizophrenia F20.3 [facility] [id number], [place] [address]- 9384 Dec, [facility] [address] [facility] [id number], [place] [address]- 0852 Dec, [facility] [id number] [place] [address] 04499- 1339 Dec, Undifferentiated schizophrenia F20.3 ; 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 and Chronic posttraumatic stress disorder F43.12 [facility] [address] [facility] [id number], [place] [address]- 8015 Dec, [facility] [address], [place] [address]- 0146 October, [facility] [id number] [place] [address] 80878- 4882 October, Undifferentiated schizophrenia F20.3 [facility] [id number] [place] [address] 72708- 0655 October, [facility] [id number] [place] [address] 26508- 4371 October, [facility] [id number] [place] [address] 75971- 6475 Oct, Undifferentiated schizophrenia F20.3 ; 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 ; Chronic posttraumatic stress disorder F43.12 and Obesity E66.9 [facility] [id number] [place] [address] 97604- 4819 Oct, [facility] [id number] [place] [address] 88520- 2774 Oct, [facility] [id number] [place] [address] 26336- 5264 Aug, Undifferentiated schizophrenia F20.3 [facility] [id number] [place] [address] 13527- 0262 Aug, [facility] [id number] [place] [address] 01539- 8417 Aug, Muscle spasm M62.838 [facility] [address], [place] [address]- 9539 Aug, Undifferentiated schizophrenia F20.3 [facility] [id number] [place] [address] 88662- 0543 Aug, Undifferentiated schizophrenia F20.3 ; 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 ; Chronic posttraumatic stress disorder F43.12 ; High risk medication use Z79.899 and 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 [facility] [id number] [address]- 6762 Aug, Undifferentiated schizophrenia F20.3 [facility] [id number] [place] [address] 33582- 2569 Aug, [facility] [id number] [place] [address] 56656- 1335 14 Aug, 2016 Acute non-recurrent maxillary sinusitis J01.00 [facility] [id number] [place] [address] 44244- 8775 10 Aug, 2016 [facility] [id number] [place] [address] 13208- 3229 Aug, [facility] [id number] [place] [address] 76863- 7242 Jul, Undifferentiated schizophrenia F20.3 [facility] [id number] [place] [address] 08468- 8329 Jul, Schizophrenia, undifferentiated F20.3 ; 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 ; Post-traumatic stress disorder F43.10 ; Panic disorder F41.0 and Depressive disorder, not elsewhere classified F32.9 [facility] [id number] [place] [address] 08509- 2153 Jul, [facility] [id number] [place] [address] 32251- 2286 Jul, Schizophrenia, undifferentiated F20.3 ; 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 ; Post-traumatic stress disorder F43.10 ; Panic disorder F41.0 and Depressive disorder, not elsewhere classified F32.9 [facility] [id number] [place] [address] 75936- 5248 Jul, [facility] [id number] [place] [address] 08257- 7727 Jul, Undifferentiated schizophrenia F20.3 ; 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 ; 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 ; Obesity E66.9 and Chronic posttraumatic stress disorder F43.12 [facility] [address], [place] [address]- 0828 Jun, [facility] [id number] [place] [address] 05847- 8602 Jun, [facility] [id number] [place] [address] 82349- 5821 Jun, Dental caries K02.9 [facility] [id number] [place] [address] 05181- 2448 Jun, Undifferentiated schizophrenia F20.3 [facility] [id number] [place] [address] 90855- 9688 30 May, 2016 [facility] [id number] [place] [address] 76697- 4542 29 May, 2016 Undifferentiated schizophrenia F20.3 ; 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 and Chronic post-traumatic stress disorder (PTSD) F43.12 [facility] [id number] [place] [address] 54858- 3618 May, [facility] [id number] [place] [address] 68545- 3979 11 May, 2016 Undifferentiated schizophrenia F20.3 [facility] [id number] [place] [address] 03670- 6013 10 May, 2016 [facility] [id number] [place] [address] 48753- 3138 07 May, 2016 Dental examination Z01.20 [facility] [id number] [place] [address] 67957- 2175 20 Apr, 2016 Undifferentiated schizophrenia F20.3 ; PTSD (post-traumatic stress disorder) F43.10 and Obesity E66.9 [facility] [address], [place] [address]- 9444 18 Apr, 2016 [facility] [address] [address]- 9671 15 Mar, 2016 [facility] [id number] [place] [address] 15087- 5478 Mar, [place] [id number] [place] [address] 97451- 6321 Jan, Shortness of breath R06.02 and Bipolar disorder with psychotic features F31.9 [place] [id number] [place] [address] 47696- 4809 Jan, [place] [id number] [place] [address] 00878- 4664 Jan, Increased intracranial pressure G93.2 ; Visual disturbance H53.9 and Bipolar II disorder F31.81 [place] [address] 81729- 0813 Jan, [place] [id number] [place] [address] 92425- 7583 Jan, [place] [id number] [place] [address] 19489- 8681 Jan, [place] [id number] [place] [address] 22432- 1122 Jan, Acquired hypothyroidism E03.9 ; Depression F32.9 and Insomnia G47.00 [place] [id number] [place] [address] 03989- 7393 Jan, Exertional dyspnea R06.09 ; Heart palpitations R00.2 ; Hyperlipidemia, unspecified hyperlipidemia type E78.5 ; Hypothyroidism, unspecified type E03.9 and Hypokalemia E87.6 [place] [id number] [place] [address] 65976- 4391 Dec, PTSD (post-traumatic stress disorder) F43.10 ; Depression F32.9 ; Insomnia G47.00 and Bipolar disorder with psychotic features F31.9 [place] [id number] [place] [address] 97596- 7167 Dec, Increased intracranial pressure G93.2 [place] [address] [place] [address]- 1726 13 Jan, 2016 [facility] [id number] [place] [address] 58082- 9072 12 Jan, 2016 Shortness of breath R06.02 [facility] [id number] [place] [address] 45529- 0591 05 Jan, 2016 Visual disturbance H53.9 and Headache, unspecified headache type R51 [facility] [id number] [place] [address] 01425- 7664 Dec, Insomnia G47.00 [place] [address] 93990- 6495 Dec, Murmur R01.1 [place] [id number] [place] [address] 56851- 3264 Dec, Murmur R01.1 ; Tunnel vision, unspecified laterality H53.489 ; Orthostatic hypertension I10 ; Shortness of breath R06.02 and Tachycardia R00.0 [place] [id number] [place] [address] 43507- 1241 Dec, [place] [id number] [place] [address] 56877- 1440 Dec, Hypothyroid E03.9 and Bipolar 1 disorder F31.9 [place] [id number] [place] [address] 55792- 7093 Dec, Bipolar 1 disorder F31.9 [facility] [id number] [place] [address] 28693- 3510 Dec, [facility] [id number] [place] [address] 70357- 1807 October, Acquired hypothyroidism E03.9 ; Depression F32.9 and Insomnia G47.00 [facility] [id number] [place] [address] 16984- [phone] October, [facility] [id number] [place] [address] 83922- 2045 October, Bipolar 1 disorder F31.9 ; PTSD (post-traumatic stress disorder) F43.10 and 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 [facility] [id number] [place] [address] 38912- 1055 Oct, Bipolar 1 disorder F31.9 and Insomnia G47.00 [facility] [id number] [place] [address] 38152- 5863 Oct, [facility] [id number] [place] [address] [phone]- [phone] Oct, [facility] [id number] [place] [address] [phone]- 7913 Aug, Hypothyroid E03.9 [facility] [id number] [place] [address] 32294- 2871 Aug, Encounter for therapeutic drug level monitoring Z51.81 and 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 [facility] [id number] [place] [address] 48038- 2586 Aug, Encounter for therapeutic drug level monitoring Z51.81 [facility] [id number] [place] [address] 26470- 5809 Aug, Acquired hypothyroidism E03.9 ; Leg pain M79.606 and Bipolar 1 disorder F31.9 [facility] [id number] [place] [address] 79446- 5091 Aug, [facility] [id number] [place] [address] [phone]- 6911 Aug, [facility] [id number] [place] [address] 22582- 2727 Jul, Thyroid disorder E07.9 [facility] [id number] [place] [address] 42088- 1310 Jul, Rash R21 ; Abnormal LFTs R94.5 ; Acquired hypothyroidism E03.9 ; Sleep apnea in adult G47.33 and Fatty liver K76.0 [facility] [id number] [address] Jun, [facility] [id number] [place] [address] 69602- 2198 Jun, [facility] [id number] [place] [address] 18914- 8684 Jun, Bipolar II disorder F31.81 and Social phobia, generalized F40.11 [facility] [id number] [place] [address] 54986- 6742 Mar, Bipolar II disorder 296.89 and Social phobia 300.23 [facility] [id number] [place] [address] 69290- 7297 Dec, [facility] [address] [id number] [place] [address]88- 9426 Dec, [facility] [id number] [place] [address] 03517- 2800 Dec, Bipolar II disorder in partial or unspecified remission 296.89 and Social phobia, generalized 300.23 [facility] [id number] [place] [address] 95511- 1906 Oct, 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 [facility] [id number] [place] [address] 37855- 0454 Oct, [facility] [id number] [place] [address] 07599- 4147 Oct, [facility] [id number] [place] [address] 90933- 0382 Aug, [facility] [id number] [place] [address] 54653- 5905 Aug, [facility] [id number] [place] [address] 49680- 4863 Aug, [facility] [address] [place] [address]- 6910 Aug, [facility] [place] [facility] [address] [id number] [place] [address]- 8047 Aug, [facility] [place] [facility] [address] [id number] [place] [address]- 7272 Aug, [facility] [place] [facility] [address] [id number] [place] [address]- 1490 Aug, [facility] [place] [facility] [address] [id number] [place] [address]- 3331 Aug, [facility] [place] [facility] [address] [id number] [place] [address]- 9197 Jul, [facility] [place] [facility] [address] [id number] [place] [address]- 1502 Jul, [facility] [place] [facility] [address] [id number] [place] [address]- 4054 Jul, [facility] [place] [facility] [address] [id number] [place] [address]- 2647 Jul, [facility] [place] [facility] [address] [id number] [place] [address]- 3244 Jul, [facility] [place] [facility] [address] [id number] [place] [address]- 2311 Jul, [facility] [place] [facility] [address] [id number] [place] [address]- 5866 Jun, [facility] [place] [facility] [address] [id number] [place] [address]- 2018 Jun, [facility] [place] [facility] [address] [id number] [place] [address]- 3894 Jun, [facility] [place] [facility] [address] [id number] [place] 5954 Jun, [facility] [place] [facility] [address] [id number] [place] [address]- 6385 Jun, [facility] [place] [facility] [address] [id number] [place] [address]- 2091 Jun, [facility] [place] [facility] [address] [id number] [place] [address]- 7619 Jun, [facility] [place] [facility] [address] [id number] [place] [address]- 9539 Jun, [facility] [place] [facility] [address] [id number] [place] [address]- 8347 Jun, [facility] [place] [facility] [address] [id number] [place] [address]- 2350 Jun, [facility] [place] [facility] [address] [id number] [place] [address]- 4345 Jun, [facility] [place] [facility] [address] [id number] [place] [address]- 1067 Jun, [facility] [place] [facility] [address] [id number] [place] [address]- 1350 Jun, [facility] [place] [facility] [address] [id number] [place] [address]- 1975 Jun, [facility] [place] [facility] [address] [id number] [place] [address]- 4261 Jun, [facility] [place] [facility] [address] [id number] [place] [address]- 0469 Jun, [facility] [place] [facility] [address] [id number], [place] [address]- 3434 May, [facility] [place] [facility] [address] [id number] [place] [address]- 0428 May, [facility] [place] [facility] [address] [id number] [place] [address]- 0059 May, [facility] [place] [facility] [address] [id number] [place] [address]- 7779 May, [facility] [place] [facility] [address] [id number], [place] [address]- 0764 May, [facility] [place] [facility] [address] [id number] [place] [address]- 9836 May, [facility] [place] [facility] [address] [id number] [place] [address]- 1291 Apr, [facility] [place] [facility] [address] [id number] [place] [address]- 4264 Apr, [facility] [place] [facility] [address] [id number] [place] [address]- 9440 Apr, [facility] [place] [facility] [address] [id number] [place] [address]- 8515 Apr, [facility] [place] [facility] [address] [id number] [place] [address]- 1560 Apr, [facility] [place] [facility] [address] [id number] [place] [address]- 9265 Apr, [facility] [place] [facility] [address] [id number] [place] [address]- 2652 Mar, [facility] [place] [facility] [address] [id number] [place] [address]- 3212 Mar, [facility] [place] [facility] [address] [id number] [place] [address]- 1501 Mar, [facility] [place] [facility] [address] [id number] [place] [address]- 7187 Mar, [facility] [place] [facility] [address] [id number] [place] [address]- 7964 Jan, [facility] [place] [facility] [address] [id number] [place] [address]- 2494 Jan, [facility] [place] [facility] [address] [id number] [place] [address]- 4229 Jan, [facility] [place] [facility] [address] [id number] [place] [address]- 3443 Jan, [facility] [place] [facility] [address] [id number] [place] [address]- 2546 Jan, [facility] [address] [id number] [place] [address]- 3266 Jan, [facility] [place] [facility] [address] [id number] [place] [address]- 2546 Dec, [facility] [place] [facility] [address] [id number] [place] [address]- 2546 Dec, [facility] [place] [facility] [address] [id number] [place] [address]- 2546 Dec, [facility] [place] [facility] [address] [id number] [place] [address]- 7122 Dec, [facility] [place] [facility] [address] [id number] [place] [address]- 2156 Dec, [facility] [place] [facility] [address] [id number] [place] [address]- 9596 Dec, [facility] [address] [id number] [place] [address]- 3062 October, [facility] [place] [facility] [address] [id number] [place] [address]- 8256 October, [facility] [address] [id number] [place] [address]- 5671 October, [facility] [place] [facility] [address] [id number] [place] [address]- 6706 October, [facility] [place] [facility] [address] [id number] [place] [address]- 4846 October, [facility] [place] [facility] [address] [id number] [place] [address]- 5516 October, [facility] [place] [facility] [address] [id number] [place] [address]- 2546 October, [facility] [place] [facility] [address] [id number] [place] [address]- 2379 October, [facility] [place] [facility] [address] [id number] [place] [address]- 5009 Oct, [facility] [place] [facility] [address] [id number] [place] [address]- 2357 Oct, [facility] [place] [facility] [address] [id number] [place] [address]- 7996 Oct, [facility] [place] [facility] [address] [id number] [place] [address]- 1894 Oct, [facility] [place] [facility] [address] [id number] [place] [address]- 8961 Oct, [facility] [place] [facility] [address] [id number] [place] [address]- 2583 Aug, [facility] [place] [facility] [address] [id number] [place] [address]- 2752 Aug, [facility] [place] [facility] [address] [id number] [place] [address]- 6697 Aug, [facility] [place] [facility] [address] [id number] [place] [address]- 3455 Aug, [facility] [place] [facility] [address] [id number] [place] [address]- 9642 Aug, [facility] [place] [facility] [address] [id number] [place] [address]- 9601 Aug, [facility] [place] [facility] [address] [id number], [place] [address]- 4995 Jul, [facility] [place] [facility] [address] [id number] [place] [address]- 2729 Jul, [facility] [place] [facility] [address] [id number] [place] [address]- 8670 Jul, [facility] [place] [facility] [address] [id number] [place] [address]- 4106 Jul, [facility] [place] [facility] [address] [id number] [place] 9233 Jul, [facility] [address] [id number] [place] 2248 Jul, [facility] [place] [facility] [address] [id number] [place] [address]- 6060 Jun, [facility] [place] [facility] [address] [id number] [place] 3771 Jun, [facility] [place] [facility] [address] [id number] [place] [address]- 9240 Jun, [facility] [place] [facility] [address] [id number] [place] [address]- 6733 Jun, [facility] [place] [facility] [address] [id number] [place] [address]- 2315 Jun, [facility] [place] [facility] [address] [id number] [place] [address]- 9667 Jun, [facility] [place] [facility] [address] [id number] [place] [address]- 7946 May, [facility] [place] [facility] [address] [id number] [place] [address]- 8831 May, [facility] [place] [facility] [address] [id number] [place] [address]- 1557 Apr, [facility] [place] [facility] [address] [id number] [place] [address]- 8241 24 Apr, 2013 [facility] [place] [facility] [address] [id number] [place] [address]- 2202 Apr, [facility] [place] [facility] [address] [id number] [place] [address]- 5484 Apr, [facility] [place] [facility] [address] [id number] [place] [address]- 5013 Apr, [facility] [place] [facility] [address] [id number] [place] [address]- 5341 18 Apr, 2013 [facility] [place] [facility] [address] [id number] [place] [address]- 2505 18 Apr, 2012 [facility] [place] [facility] [address] [id number] [place] [address]- 2527 18 Apr, 2013 [facility] [place] [facility] [address] [id number] [place] 6071 18 Apr, 2013 [facility] [place] [facility] [address] [id number] [place] [address]- 0918 04 Apr, 2013 [facility] [address] [id number] [place] [address]- 8041 02 Apr, 2013 [facility] [place] [facility] [address] [id number] [place] [address]- 0615 23 Mar, 2012 [facility] [address] [id number] [place] [address]- 7808 20 Mar, 2012 [facility] [place] [facility] [address] [id number] [place] [address]- 9994 20 Mar, 2012 [facility] [place] [facility] [address] [id number] [place] [address]- 8846 14 Mar, 2013 [facility] [place] [facility] [address] [id number] [place] [address]- 1881 12 Mar, 2013 [facility] [place] [facility] [address] [id number] [place] [address]- 6429 06 Mar, 2012 [facility] [place] [facility] [address] [id number], [place] [address]- 8959 06 Mar, 2012 [facility] [place] [facility] [address] [id number] [place] [address]- 0833 19 Jan, 2013 [facility] [place] [facility] [address] [id number] [place] [address]- 3645 14 Jan, 2013 [facility] [place] [facility] [address] [id number] [place] [address]- 1113 13 Jan, 2013 [facility] [place] [facility] [address] [id number] [place] [address]- 2559 Jan, [facility] [address] [id number] [place] [address]- 7863 Jan, [facility] [place] [facility] [address] [id number] [place] [address]- 0893 Jan, [facility] [place] [facility] [address] [id number] [place] [address]- 9241 Jan, [facility] [place] [facility] [address] [id number] [place] [address]- 3942 Dec, [facility] [address] [id number] [place] [address]- 8380 Dec, [facility] [address] [id number] [place] [address]- 3311 Dec, [facility] [address] [id number] [place] [address]- 0711 Dec, [facility] [address] [id number] [place] [address]- 8628 Dec, [facility] [address] [id number] [place] [address]- 1186 Dec, [facility] [address] [id number] [place] [address]- 7141 October, [facility] [address] [id number] [place] [address]- 7219 October, [facility] [place] [facility] [address] [id number] [place] [address]- 5963 October, [facility] [place] [facility] [address] [id number] [place] [address]- 1236 October, [facility] [place] [facility] [address] [id number] [place] [address]- 8874 Oct, [facility] [place] [facility] [address] [id number] [place] [address]- 5223 Oct, [facility] [place] [facility] [address] [id number] [place] [address]- 6553 27 Aug, 2012 [facility] [address] [id number] [place] [address]- 4083 26 Aug, 2012 [facility] [place] [facility] [address] [id number] [place] [address]- 3088 21 Aug, 2012 [facility] [address] [id number] [place] [address]- 9312 20 Aug, 2012 [facility] [place] [facility] [address] [id number] [place] [address]- 6048 18 Aug, 2012 [facility] [address] [id number] [place] [address]- 9904 07 Aug, 2012 [facility] [address] [facility] [id number] [place] [address]- 0015 Aug, [facility] [place] [facility] [address] [id number] [place] [address]- 4101 25 Aug, 2012 [facility] [address] [id number] [place] [address]- 1193 Aug, [facility] [address] [facility] [id number] [place] [address]- 7584 Aug, [facility] [address] [facility] [id number] [place] [address]- 6919 10 Aug, 2012 [facility] [address] [id number] [place] [address]- 6460 08 Aug, 2012 [facility] [place] [facility] [address] [id number] [place] 1693 Aug, [facility] [place] [facility] [address] [id number] [place] [address]- 5660 04 Aug, 2012 [facility] [place] [facility] [address] [id number] [place] [address]- 8218 Jul, [facility] [place] [facility] [address] [id number], [place] [address]- 0267 Jul, [facility] [address] [id number], [place] [address]- 9883 Jul, [facility] [address] [facility] [id number], [place] [address]- 5008 Jul, [facility] [address] [id number], [place] [address]- 2975 Jun, [facility] [address] [id number], [place] [address]- 8851 Jun, [facility] [address] [id number], [place] [address]- 9565 Jun, [facility] [address] [id number], [place] [address]- 8298 Jun, [facility] [address] [id number], [place] [address]- 1927 May, [facility] [address] [id number], [place] [address]- 0001 May, IMMUNIZATIONS No Known Immunizations SOCIAL HISTORY Never Assessed REASON FOR VISIT [place] [address] PLAN OF CARE VITAL SIGNS MEDICATIONS Unknown [...]
--- OUTSIDE RECORDS SUMMARY | 2018-09-02 17:48 | XMS REPORT ---
Author Author DIGNA GUERRERO [facility] Address [address] [place] [address] Care Team Providers Care Back Tender Paper Machine Name Role Phone DIGNA GUERRERO Unavailable PROBLEMS Type Condition ICD9-CM Code [id number] Code Onset Dates Condition Status SNOMED Code Problem 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 Active 19237274 Problem Depressive disorder, not elsewhere classified F32.9 Active 51670988 Problem Chronic posttraumatic stress disorder F43.12 Active 858374643 Problem Insomnia G47.00 Active 536623286 Problem Obesity E66.9 Active 427628886 Problem Other chronic pain G89.29 Active 87049212 Problem Fatty liver K76.0 Active 064498572 Problem Abuse, drug or alcohol F19.10 Active 42747687 Problem Panic disorder without agoraphobia F41.0 Active 52671551 Problem Panic disorder F41.0 Active 324712717 Problem Hypothyroid E03.9 Active 44756816 Problem BMI 50.0-59.9, adult Z68.43 Active 686580092 Problem Restless legs syndrome G25.81 Active 937276135 Problem Encounter for therapeutic drug level monitoring Z51.81 Active 107124347 Problem Neuropathy G62.9 Active 669112827 Problem 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 Active 01331132 Problem Tachycardia R00.0 Active 3378852 Problem Murmur R01.1 Active 941899078 Problem Orthostatic hypertension I10 Active 72395012 Problem Shortness of breath R06.02 Active 752771442 Problem Sleep apnea in adult G47.33 Active 48141482 Problem Tunnel vision, unspecified laterality H53.489 Active 594733592 Problem Undifferentiated schizophrenia F20.3 Active 355501967 ALLERGIES No Information ENCOUNTERS Encounter Location Date Diagnosis [facility] [id number] [address] May, [facility] [address], [place] [address] 8462 May, [facility] [id number] [place] [address] 07108- 4285 May, [facility] [id number] [place] [address] 80872- 3833 Apr, [facility] [id number] [place] [address] 14433- 2472 Apr, [facility] [id number] [place] [address] 74808- 2600 Apr, Undifferentiated schizophrenia F20.3 ; 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 ; 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 and BMI 50.0-59.9, adult Z68.43 [facility] [id number] [place] [address] 10777- 0850 Apr, [facility] [id number] [place] [address] 08682- 9180 Apr, Undifferentiated schizophrenia F20.3 [facility] [id number] [place] [address] 87392- 4478 17 Mar, 2018 Undifferentiated schizophrenia F20.3 [facility] [id number] [place] [address] 99574- 2764 Mar, [facility] [id number] [place] [address] 32271- 8759 14 Mar, 2018 Undifferentiated schizophrenia F20.3 [facility] [address] [place] [address] 86777- 8866 Jan, [facility] [id number] [place] [address] 70896- 7534 Jan, Undifferentiated schizophrenia F20.3 [facility] [address], [place] [address]- 9465 Jan, [facility] [id number] [place] [address] 66893- 4723 Jan, Undifferentiated schizophrenia F20.3 [facility] [address], [place] [address] 3430 Dec, [facility] [id number] [address] 1559 Dec, [facility] [address], [place] [address]- 8709 Dec, [facility] [id number] [place] [address] 18670- 6948 Dec, Undifferentiated schizophrenia F20.3 ; 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 ; Chronic posttraumatic stress disorder F43.12 and BMI 50.0- 59.9, adult Z68.43 [facility] [id number] [place] [address] 78079- 4303 Dec, [facility] [id number] [place] [address] 95073- 0416 Dec, Undifferentiated schizophrenia F20.3 ; Insomnia G47.00 and Thyroid disorder E07.9 [facility] [id number] [address] 4050 Dec, Undifferentiated schizophrenia F20.3 [facility] [address], [place] [address]- 5801 Dec, [facility] [address], [place] [address]- 2414 Dec, [facility] [id number] [place] [address] 69701- 6092 Dec, BMI 50.0-59.9, adult Z68.43 ; Undifferentiated schizophrenia F20.3 ; Panic disorder without agoraphobia F41.0 and Chronic posttraumatic stress disorder F43.12 [facility] [address], [place] [address]- 7849 Dec, [facility] [id number] [place] [address] 40357- 8218 October, [facility] [id number] [place] [address] 70224- 7732 October, Pain in right shoulder M25.511 and Other chronic pain G89.29 [facility] [id number] [place] [address] 18638- 3280 October, Hypothyroid E03.9 [facility] [id number] [place] [address] 23294- 8028 Oct, Undifferentiated schizophrenia F20.3 [facility] [id number] [place] [address] 71327- 7275 Oct, [facility] [id number] [place] [address] 20309- 3031 Oct, [facility] [id number] [place] [address] 50530- 2515 Aug, Undifferentiated schizophrenia F20.3 [facility] [id number] [place] [address] 70758- 3709 Aug, [facility] [id number] [place] [address] 46539- 2348 Aug, Undifferentiated schizophrenia F20.3 ; 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 ; Chronic posttraumatic stress disorder F43.12 and BMI 50.0- 59.9, adult Z68.43 [facility] [id number] [place] [address] 91816- 1098 Aug, [facility] [id number] [place] [address] 78245- 9187 Aug, [facility] [id number] [place] [address] 90345- 5023 Aug, Undifferentiated schizophrenia F20.3 [facility] [id number] [place] [address] 29265- 8872 Aug, Hypothyroid E03.9 [facility] [id number] [place] [address] 06366- 2254 Jul, Undifferentiated schizophrenia F20.3 [facility] [id number] [place] [address] 26606- 5639 Jul, [facility] [id number] [place] [address] 53703- 2283 Jul, Undifferentiated schizophrenia F20.3 ; Chronic posttraumatic stress disorder F43.12 ; 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 and BMI 50.0-59.9, adult Z68.43 [facility] [id number] [place] [address] 77362- 6436 15 Jul, 2017 [place] [id number] [place] [address] 27788- 5868 Jul, Acute pain of right shoulder M25.511 ; High risk medication use Z79.899 ; Needle stick injury W27.3XXA ; Hypothyroid E03.9 and BMI 50.0-59.9 , adult Z68.43 [facility] [id number] [place] [address] 97129- 9255 Jun, Undifferentiated schizophrenia F20.3 [facility] [id number] [place] [address] 15094- 3699 Jun, Undifferentiated schizophrenia F20.3 ; Panic disorder without agoraphobia F41.0 ; Chronic posttraumatic stress disorder F43.12 and BMI 50.0-59.9, adult Z68.43 [facility] [id number] [place] [address] 72924- 6051 May, [facility] [id number] [place] [address] 22512- 1924 May, [facility] [id number] [place] [address] 97501- 2831 May, Undifferentiated schizophrenia F20.3 [facility] [id number] [place] [address] 65942- 3377 May, [facility] [id number] [place] [address] 57515- 6687 May, [facility] [address], [place] [address]- 4431 15 May, 2017 Hypothyroid E03.9 [facility] [address] [address]- 8220 13 May, 2017 [facility] [id number] [place] [address] 75947- 0602 10 May, 2017 [facility] [id number] [place] [address] 06440- 5972 07 May, 2017 Chronic posttraumatic stress disorder F43.12 ; 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 ; Undifferentiated schizophrenia F20.3 ; BMI 40.0-44.9, adult Z68.41 and Obesity E66.9 [facility] [address] [place] [address] 95895- 7379 07 May, 2017 Shortness of breath R06.02 [facility] [id number] [place] [address] 01650- 9844 May, [facility] [id number] [place] [address] 38364- 6598 Apr, Undifferentiated schizophrenia F20.3 [facility] [address], [place] [address]- 2730 Apr, [facility] [address], [place] [address]- 4788 Apr, [facility] [address], [place] [address]- 2179 19 Mar, 2017 Undifferentiated schizophrenia F20.3 ; Panic disorder without agoraphobia F41.0 and Chronic posttraumatic stress disorder F43.12 [facility] [address], [place] [address]- 1505 19 Mar, 2017 Undifferentiated schizophrenia F20.3 [facility] [address], [place] [address]- 8401 18 Mar, 2017 [facility] [address] [facility] [id number] [address]- 1387 08 Mar, 2017 [facility] [address], [place] [address]- 0578 Mar, [facility] [address] [facility] [id number] [address]- 6842 Jan, Undifferentiated schizophrenia F20.3 [facility] [address] [place] [address] 57422- 0186 Jan, [facility] [id number] [place] [address] 97389- 8158 Jan, [facility] [address], [place] [address]- 0692 Jan, [id number] [id number] Dec, Needle stick injury W27.3XXA [facility] [address], [place] [address]- 6822 Dec, Needle stick injury W27.3XXA [facility] [address] [place] [address] 51485- 6280 Dec, Undifferentiated schizophrenia F20.3 [facility] [id number], [place] [address]- 2668 Dec, [facility] [address], [place] [address]- 9315 Dec, [facility] [id number], [place] [address]- 8022 Dec, Undifferentiated schizophrenia F20.3 ; 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 and Chronic posttraumatic stress disorder F43.12 [facility] [id number], [place] [address]- 3713 Dec, [facility] [address], [place] [address]- 5269 October, [facility] [address], [place] [address]- 7290 October, Undifferentiated schizophrenia F20.3 [facility] [address] [address]- 6246 October, [facility] [address], [place] [address]- 4406 October, [facility] [id number] [place] [address] 43870- 0622 Oct, Undifferentiated schizophrenia F20.3 ; 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 ; Chronic posttraumatic stress disorder F43.12 and Obesity E66.9 [facility] [id number] [place] [address] 21563- 9530 Oct, [facility] [id number] [place] [address] 10840- 8245 Oct, [facility] [id number] [place] [address] 97256- 2204 Aug, Undifferentiated schizophrenia F20.3 [facility] [id number] [place] [address] 38362- 2727 Aug, [facility] [address] [address]- 0016 Aug, Muscle spasm M62.838 [facility] [id number] [place] [address] 43856- 7986 Aug, Undifferentiated schizophrenia F20.3 [facility] [address], [place] [address]- 3252 Aug, Undifferentiated schizophrenia F20.3 ; 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 ; Chronic posttraumatic stress disorder F43.12 ; High risk medication use Z79.899 and 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 [facility] [address], [place] [address]- 2074 Aug, Undifferentiated schizophrenia F20.3 [facility] [address], [place] [address]- 7799 Aug, [facility] [id number] [place] [address] 99341- 7773 14 Aug, 2016 Acute non-recurrent maxillary sinusitis J01.00 [facility] [address] [place] [address] 73718- 9195 10 Aug, 2016 [facility] [id number] [place] [address] 00337- 2316 Aug, [facility] [address] [place] [address] 93575- 4435 Jul, Undifferentiated schizophrenia F20.3 [facility] [id number] [place] [address] 28076- 2303 Jul, Schizophrenia, undifferentiated F20.3 ; 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 ; Post-traumatic stress disorder F43.10 ; Panic disorder F41.0 and Depressive disorder, not elsewhere classified F32.9 [facility] [address] [place] [address] 12366- 9051 Jul, [facility] [id number] [place] [address] 81193- 3001 Jul, Schizophrenia, undifferentiated F20.3 ; 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 ; Post-traumatic stress disorder F43.10 ; Panic disorder F41.0 and Depressive disorder, not elsewhere classified F32.9 [facility] [address] [place] [address] 98698- 5078 Jul, [facility] [address] [place] [address] 90941- 2874 Jul, Undifferentiated schizophrenia F20.3 ; 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 ; 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 ; Obesity E66.9 and Chronic posttraumatic stress disorder F43.12 [facility] [address] [place] [address] 08014- 0104 Jun, [facility] [address] [address]- 1828 Jun, [facility] [id number] [place] [address] 51802- 1215 19 Jun, 2016 Dental caries K02.9 [facility] [id number] [place] [address] 28842- 8790 13 Jun, 2016 Undifferentiated schizophrenia F20.3 [facility] [id number] [place] [address] 59746- 7382 30 May, 2016 [facility] [id number] [place] [address] 10253- 1267 29 May, 2016 Undifferentiated schizophrenia F20.3 ; 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 and Chronic post-traumatic stress disorder (PTSD) F43.12 [facility] [id number] [place] [address] 09563- 1232 May, [facility] [id number] [place] [address] 85976- 3090 May, Undifferentiated schizophrenia F20.3 [facility] [id number] [place] [address] 93888- 0366 May, [facility] [id number] [place] [address] 33192- 3837 07 May, 2016 Dental examination Z01.20 [facility] [id number] [place] [address] 81925- 2976 Apr, Undifferentiated schizophrenia F20.3 ; PTSD (post-traumatic stress disorder) F43.10 and Obesity E66.9 [facility] [id number] [place] [address] 66662- 1660 18 Apr, 2016 [facility] [id number] [place] [address] 20573- 0242 15 Mar, 2016 [facility] [address] [place] [address] 89339- 4969 09 Mar, 2016 [facility] [id number] [place] [address] 30102- 6234 Jan, Shortness of breath R06.02 and Bipolar disorder with psychotic features F31.9 [place] [id number] [place] [address] 51880- 2979 Jan, [facility] [id number] [place] [address] 14883- 6613 Jan, Increased intracranial pressure G93.2 ; Visual disturbance H53.9 and Bipolar II disorder F31.81 [place] [id number] [place] [address] 31879- 1397 Jan, [place] [id number] [place] [address] 35791- 8490 Jan, [place] [id number] [place] [address] 15518- 1162 Jan, [place] [id number] [place] [address] 28313- 4810 Jan, Acquired hypothyroidism E03.9 ; Depression F32.9 and Insomnia G47.00 [place] [id number] [place] [address] 70367- 0900 Jan, Exertional dyspnea R06.09 ; Heart palpitations R00.2 ; Hyperlipidemia, unspecified hyperlipidemia type E78.5 ; Hypothyroidism, unspecified type E03.9 and Hypokalemia E87.6 [place] [id number] [place] [address] 46822- 6206 Dec, PTSD (post-traumatic stress disorder) F43.10 ; Depression F32.9 ; Insomnia G47.00 and Bipolar disorder with psychotic features F31.9 [place] [id number] [place] [address] 83998- 2018 Dec, Increased intracranial pressure G93.2 [place] [id number] [place] [address] 72346- 6085 Dec, [place] [address] [place] [address]- 9170 Dec, Shortness of breath R06.02 [place] [address] 31518- 7154 05 Jan, 2016 Visual disturbance H53.9 and Headache, unspecified headache type R51 [place] [address] 49399- 3837 Dec, Insomnia G47.00 [place] [address] 95681- 3143 Dec, Murmur R01.1 [place] [address] 63284- 4691 Dec, Murmur R01.1 ; Tunnel vision, unspecified laterality H53.489 ; Orthostatic hypertension I10 ; Shortness of breath R06.02 and Tachycardia R00.0 [place] [address] 84249- 2444 Dec, [place] [address] 01709- 1371 Dec, Hypothyroid E03.9 and Bipolar 1 disorder F31.9 [place] [id number] [place] [address] 61465- 7786 Dec, Bipolar 1 disorder F31.9 [place] [id number] [place] [address] 79023- 3690 Dec, [place] [id number] [place] [address] 07058- 1075 October, Acquired hypothyroidism E03.9 ; Depression F32.9 and Insomnia G47.00 [place] [id number] [place] [address] 08154- 4881 October, [facility] [id number] [place] [address] 86710- 3095 October, Bipolar 1 disorder F31.9 ; PTSD (post-traumatic stress disorder) F43.10 and 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 [facility] [id number] [place] [address] 87470- 5012 Oct, Bipolar 1 disorder F31.9 and Insomnia G47.00 [facility] [id number] [place] [address] 64856- 7901 Oct, [facility] [id number] [place] [address] 29511- 9389 Oct, [facility] [id number] [place] [address] 73917- 0215 Aug, Hypothyroid E03.9 [place] [address] 65578- 1805 Aug, Encounter for therapeutic drug level monitoring Z51.81 and Other care home (current) drug therapy Z79.899 [place] [id number] [place] [address] 03786- 1922 Aug, Encounter for therapeutic drug level monitoring Z51.81 [place] [id number] [place] [address] 74042- 1602 Aug, Acquired hypothyroidism E03.9 ; Leg pain M79.606 and Bipolar 1 disorder F31.9 [facility] [id number] [place] [address] 38615- 1168 Aug, [facility] [id number] [place] [address] 07620- 2721 Aug, [place] [id number] [place] [address] 79502- 4683 Jul, Thyroid disorder E07.9 [place] [address] 57044- 5060 Jul, Rash R21 ; Abnormal LFTs R94.5 ; Acquired hypothyroidism E03.9 ; Sleep apnea in adult G47.33 and Fatty liver K76.0 [facility] [id number] [place] [address] 94979- 6099 Jun, [facility] [address] 6818 Jun, [facility] [id number] [place] [address] 96636- 6393 Jun, Bipolar II disorder F31.81 and Social phobia, generalized F40.11 [facility] [id number] [place] [address] 89077- 8295 Mar, Bipolar II disorder 296.89 and Social phobia 300.23 [facility] [id number] [place] [address] 54627- 5168 Dec, [facility] [id number] [place] [address] 72285- 2537 Dec, [facility] [id number] [place] [address] 657030- 5422 Dec, Bipolar II disorder in partial or unspecified remission 296.89 and Social phobia, generalized 300.23 [facility] [address] [address]- 2909 Oct, 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 [facility] [id number] [place] [address] 16692- 5629 Oct, [facility] [id number] [place] [address]- [address] Oct, [facility] [id number] [place] [address] Aug, [facility] [id number] [address] Aug, [facility] [id number] [place] [address] Aug, [facility] [id number] [address] Aug, [facility] [id number] [place] [address] Aug, [facility] [place] [facility] [address] [id number] [place] [address] Aug, [facility] [place] [facility] [address] [id number] [place] Aug, [facility] [place] [facility] [address] [id number] [place] [address] Aug, [facility] [place] [facility] [address] [id number] [place] [address] Jul, [facility] [place] [facility] [address] [id number] [place] [address] Jul, [facility] [place] [facility] [address] [id number] [place] [address] Jul, [facility] [place] [facility] [address] [id number] [place] [address] Jul, [facility] [place] [facility] [address] [id number] [place] [address] Jul, [facility] [place] [facility] [address] [id number] [place] [address] Jul, [facility] [place] [facility] [address] [id number] [place] [address] Jun, [facility] [place] [facility] [address] [id number] [place] [address] Jun, [facility] [place] [facility] [address] [id number] [place] [address] Jun, [facility] [place] [facility] [address] [id number] [place] [address] Jun, [facility] [place] [facility] [address] [id number] [place] [address] Jun, [facility] [place] [facility] [address] [id number] [place] [address] 6564 Jun, [facility] [place] [facility] [address] [id number] [place] [address] 3960 Jun, [facility] [place] [facility] [address] [id number] [place] [address] 18[address] Jun, [facility] [place] [facility] [address] [id number] [place] [address] 8[address] Jun, [facility] [place] [facility] [address] [id number] [place] [address] 1836 Jun, [facility] [place] [facility] [address] [id number] [place] [address] Jun, [facility] [place] [facility] [address] [id number] [place] [address] 0732 Jun, [facility] [place] [facility] [address] [id number] [place] [address]455 Jun, [facility] [place] [facility] [address] [id number] [place] [address] 5841 Jun, [facility] [place] [facility] [address] [id number] [place] [address] 2913 Jun, [facility] [place] [facility] [address] [id number] [place] [address] Jun, [facility] [place] [facility] [address] [id number] [place] [address] May, [facility] [place] [facility] [address] [id number], [place] [address] 39[address] May, [facility] [place] [facility] [address] [id number] [place] [address] 1152 May, [facility] [place] [facility] [address] [id number] [place] [address]- 1551 May, [facility] [place] [facility] [address] [id number] [place] [address] 6616 May, [facility] [place] [facility] [address] [id number], [place] [address] 8877 May, [facility] [place] [facility] [address] [id number] [place] [address] 5780 Apr, [facility] [place] [facility] [address] [id number] [place] [address] 0360 Apr, [facility] [place] [facility] [address] [id number] [place] [address] 3431 Apr, [facility] [place] [facility] [address] [id number] [place] [address]- 2497 Apr, [facility] [place] [facility] [address] [id number] [place] [address]- 8732 Apr, [facility] [place] [facility] [address] [id number] [place] [address]- 2137 Apr, [facility] [place] [facility] [address] [id number] [place] [address] 8620 Mar, [facility] [place] [facility] [address] [id number] [place] [address] 7350 Mar, [facility] [place] [facility] [address] [id number] [place] [address]- 1796 Mar, [facility] [place] [facility] [address] [id number] [place] [address]- 0866 Mar, [facility] [place] [facility] [address] [id number] [place] [address] 3500 Jan, [facility] [place] [facility] [address] [id number] [place] [address] 3496 Jan, [facility] [place] [facility] [address] [id number] [place] [address]- 0[address] Jan, [facility] [place] [facility] [address] [id number] [place] [address]- 7459 Jan, [facility] [place] [facility] [address] [id number] [place] [address]- 2994 Jan, [facility] [place] [facility] [address] [id number] [place] [address] 5366 Jan, [facility] [place] [facility] [address] [id number] [place] [address] 6566 Dec, [facility] [place] [facility] [address] [id number] [place] [address]- 2546 Dec, [facility] [place] [facility] [address] [id number] [place] [address]- 6362 Dec, [facility] [place] [facility] [address] [id number] [place] [address]- 5758 Dec, [facility] [place] [facility] [address] [id number] [place] [address] 1561 Dec, [facility] [place] [facility] [address] [id number] [place] [address]- 9516 Dec, [facility] [place] [facility] [address] [id number] [place] [address] 59[address] October, [facility] [address] [id number] [place] [address] 9334 October, [facility] [place] [facility] [address] [id number] [place] [address]- 3926 October, [facility] [address] [id number] [place] [address]- 7967 October, [facility] [place] [facility] [address] [id number] [place] [address] 7546 October, [facility] [place] [facility] [address] [id number] [place] [address] 2116 October, [facility] [place] [facility] [address] [id number] [place] [address] 7596 October, [facility] [place] [facility] [address] [id number] [place] [address]- 2546 October, [facility] [place] [facility] [address] [id number] [place] [address]- 1191 Oct, [facility] [place] [facility] [address] [id number] [place] [address]- 0076 Oct, [facility] [place] [facility] [address] [id number] [place] [address] 2480 Oct, [facility] [place] [facility] [address] [id number] [place] [address] 6770 Oct, [facility] [place] [facility] [address] [id number] [place] [address]- 9446 Oct, [facility] [place] [facility] [address] [id number] [place] [address]- 1727 Aug, [facility] [place] [facility] [address] [id number] [place] [address]- 9917 Aug, [facility] [place] [facility] [address] [id number] [place] [address]- 3763 Aug, [facility] [place] [facility] [address] [id number] [place] [address]- 4204 Aug, [facility] [place] [facility] [address] [id number] [place] [address]- 5060 Aug, [facility] [place] [facility] [address] [id number] [place] [address]- 3179 Aug, [facility] [place] [facility] [address] [id number] [place] [address]- 0234 Jul, [facility] [place] [facility] [address] [id number], [place] [address]- [address] Jul, [facility] [place] [facility] [address] [id number] [place] [address]- 1065 Jul, [facility] [place] [facility] [address] [id number] [place] [address]- 8493 Jul, [facility] [place] [facility] [address] [id number] [place] [address]- 9066 Jul, [facility] [place] [facility] [address] [id number] [place] [address]- 0050 Jul, [facility] [address] [id number] [place] [address]- 8250 Jun, [facility] [place] [facility] [address] [id number] [place] [address]- 6046 Jun, [facility] [place] [facility] [address] [id number] [place] [address] Jun, [facility] [place] [facility] [address] [id number] [place] [address]- 0695 Jun, [facility] [place] [facility] [address] [id number] [place] [address]- 2584 Jun, [facility] [place] [facility] [address] [id number] [place] [address]- 1188 Jun, [facility] [place] [facility] [address] [id number] [place] [address]- 4597 May, [facility] [place] [facility] [address] [id number] [place] [address]- 3603 May, [facility] [place] [facility] [address] [id number] [place] [address]- 2609 Apr, [facility] [place] [facility] [address] [id number] [place] [address]- 1704 Apr, [facility] [place] [facility] [address] [id number] [place] [address]- 9097 Apr, [facility] [place] [facility] [address] [id number] [place] [address]- 2544 Apr, [facility] [place] [facility] [address] [id number] [place] [address]- 5696 Apr, [facility] [place] [facility] [address] [id number] [place] [address]- 7964 Apr, [facility] [place] [facility] [address] [id number] [place] [address]- 3254 Apr, [facility] [place] [facility] [address] [id number] [place] [address]- 6573 18 Apr, 2013 [facility] [place] [facility] [address] [id number] [place] [address]- 8363 18 Apr, 2013 [facility] [place] [facility] [address] [id number] [place] [address]- 2242 04 Apr, 2013 [facility] [place] [facility] [address] [id number] [place] [address]- 3088 Apr, [facility] [address] [id number] [place] [address]- 6740 23 Mar, 2012 [facility] [place] [facility] [address] [id number] [place] [address]- 6585 20 Mar, 2013 [facility] [address] [id number] [place] [address]- 4653 20 Mar, 2013 [facility] [place] [facility] [address] [id number] [place] [address]- 7371 14 Mar, 2013 [facility] [place] [facility] [address] [id number] [place] [address]- 8445 12 Mar, 2013 [facility] [place] [facility] [address] [id number] [place] [address]- 8349 06 Mar, 2013 [facility] [place] [facility] [address] [id number] [place] [address]- 0946 06 Mar, 2013 [facility] [place] [facility] [address] [id number] [place] [address]- 1590 Jan, [facility] [place] [facility] [address] [id number] [place] [address]- 1014 Jan, [facility] [place] [facility] [address] [id number] [place] [address]- 3316 Jan, [facility] [place] [facility] [address] [id number] [place] [address]- 1377 Jan, [facility] [place] [facility] [address] [id number] [place] [address]- 3288 Jan, [facility] [address] [id number] [place] [address]- 0214 Jan, [facility] [place] [facility] [address] [id number] [place] [address]- 4881 Jan, [facility] [address] [id number] [place] [address]- 4993 Dec, [facility] [place] [facility] [address] [id number] [place] [address]- 2348 Dec, [facility] [address] [id number] [place] [address]- 2040 Dec, [facility] [address] [id number] [place] [address]- 3825 Dec, [facility] [address] [id number] [place] [address]- 7910 Dec, [facility] [address] [id number] [place] [address]- 0120 Dec, [facility] [address] [id number] [place] [address]- 3770 October, [facility] [address] [id number] [place] [address]- 1153 October, [facility] [address] [id number] [place] [address]- 3339 October, [facility] [place] [facility] [address] [id number] [place] [address]- 8409 October, [facility] [place] [facility] [address] [id number] [place] [address]- 9784 Oct, [facility] [place] [facility] [address] [id number] [place] [address]- 6310 Oct, [facility] [place] [facility] [address] [id number] [place] [address]- 4499 Aug, [facility] [place] [facility] [address] [id number] [place] [address]- 8076 26 Aug, 2012 [facility] [address] [id number] [place] [address]- 9521 21 Aug, 2012 [facility] [place] [facility] [address] [id number] [place] [address]- 9164 20 Aug, 2012 [facility] [address] [id number] [place] [address]- 5299 18 Aug, 2012 [facility] [address] [id number] [place] [address]- 1416 Aug, [facility] [address] [id number] [place] [address]- 6623 Aug, [facility] [address] [facility] [id number] [place] [address]- 6987 Aug, [facility] [address] [id number] [place] [address]- 5344 Aug, [facility] [address] [id number] [place] [address]- 7056 Aug, [facility] [address] [id number] [place] [address]- 2135 Aug, [facility] [address] [id number] [place] [address]- 5837 Aug, [facility] [address] [id number], [place] [address]- 2930 Aug, [facility] [place] [facility] [address] [id number] [place] [address]- 7810 Aug, [facility] [place] [facility] [address] [id number] [place] [address]- 4927 Jul, [facility] [place] [facility] [address] [id number] [place] [address]- 0273 Jul, [facility] [place] [facility] [address] [id number], [place] [address]- 0[address] Jul, [facility] [address] [facility] [id number], [place] [address]- 5433 Jul, [facility] [address] [facility] [id number], [place] [address]- 9584 Jun, [facility] [address] [facility] [id number], [place] [address]- 3776 Jun, [facility] [address] [id number], [place] [address]- 4746 Jun, [facility] [address] [id number], [place] [address]- 7499 Jun, [facility] [address] [id number], [place] [address]- 6177 May, [facility] [address] [id number], [place] [address]- 9227 May, IMMUNIZATIONS No Known Immunizations SOCIAL HISTORY Never Assessed REASON FOR VISIT [facility] rx PLAN OF CARE VITAL SIGNS MEDICATIONS Unknown [...]
--- OUTSIDE RECORDS SUMMARY | 2018-09-02 17:49 | XMS REPORT ---
Author Author AMARI HOWARD [facility] Address [address] [place] [address] Care Team Providers Care Charge Master Coordinator Name Role Phone AMARI HOWARD Unavailable PROBLEMS Type Condition ICD9-CM Code QUR29-AA Code Onset Dates Condition Status SNOMED Code Problem 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 Active 01429653 Problem Depressive disorder, not elsewhere classified F32.9 Active 53577401 Problem Chronic posttraumatic stress disorder F43.12 Active 760201396 Problem Insomnia G47.00 Active 891832416 Problem Obesity E66.9 Active 733610883 Problem Other chronic pain G89.29 Active 97097928 Problem Fatty liver K76.0 Active 289613409 Problem Abuse, drug or alcohol F19.10 Active 88751987 Problem Panic disorder without agoraphobia F41.0 Active 65241264 Problem Panic disorder F41.0 Active 859929330 Problem Hypothyroid E03.9 Active 45881122 Problem BMI 50.0-59.9, adult Z68.43 Active 826956487 Problem Restless legs syndrome G25.81 Active 174582920 Problem Encounter for therapeutic drug level monitoring Z51.81 Active 080116623 Problem Neuropathy G62.9 Active 579493964 Problem 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 Active 74450489 Problem Tachycardia R00.0 Active 8422321 Problem Murmur R01.1 Active 170076116 Problem Orthostatic hypertension I10 Active 12374010 Problem Shortness of breath R06.02 Active 837511170 Problem Sleep apnea in adult G47.33 Active 54335828 Problem Tunnel vision, unspecified laterality H53.489 Active 287688249 Problem Undifferentiated schizophrenia F20.3 Active 600272905 ALLERGIES No Known Allergies ENCOUNTERS Encounter Location Date Diagnosis [facility] [id number], [place] [address] May, [facility] [id number], [place] [address] 4670 May, [facility] [id number] [place] [address] 58744- 8207 May, [facility] [id number] [place] [address] 74495- 1887 Apr, [facility] [id number] [place] [address] 45601- 4511 Apr, [facility] [id number] [place] [address] 36886- 6829 Apr, Undifferentiated schizophrenia F20.3 ; 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 ; 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 and BMI 50.0-59.9, adult Z68.43 [facility] [id number] [place] [address] 07514- 4279 Apr, [facility] [id number] [place] [address] 04244- 5598 Apr, Undifferentiated schizophrenia F20.3 [facility] [id number] [place] [address] 64081- 1171 17 Mar, 2018 Undifferentiated schizophrenia F20.3 [facility] [id number] [place] [address] 67189- 4385 Mar, [facility] [id number] [place] [address] 83228- 1701 14 Mar, 2018 Undifferentiated schizophrenia F20.3 [facility] [id number] [place] [address] 18392- 2012 Jan, [facility] [id number] [place] [address] 29084- 4230 Jan, Undifferentiated schizophrenia F20.3 [facility] [id number] [place] [address] 39491- 0852 Jan, [facility] [id number] [place] [address] 97428- 2647 Jan, Undifferentiated schizophrenia F20.3 [facility] [address], [place] [address] 5749 Dec, [facility] [address], [place] [address] 0091 Dec, [facility] [address], [place] [address]- 7187 Dec, [facility] [id number] [place] [address] 55414- 1022 Dec, Undifferentiated schizophrenia F20.3 ; 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 ; Chronic posttraumatic stress disorder F43.12 and BMI 50.0- 59.9, adult Z68.43 [facility] [id number], [place] [address] 8095 Dec, [facility] [id number] [place] [address] 61852- 4239 Dec, Undifferentiated schizophrenia F20.3 ; Insomnia G47.00 and Thyroid disorder E07.9 [facility] [address], [place] [address]- 9363 Dec, Undifferentiated schizophrenia F20.3 [facility] [address], [place] [address]- 8258 Dec, [facility] [address], [place] [address]- 4712 Dec, [facility] [address], [place] [address]- 2135 Dec, BMI 50.0-59.9, adult Z68.43 ; Undifferentiated schizophrenia F20.3 ; Panic disorder without agoraphobia F41.0 and Chronic posttraumatic stress disorder F43.12 [facility] [address], [place] [address] 0822 Dec, [facility] [id number], [place] [address] 4068 October, [facility] [address] [place] [address] 17874- 6444 October, Pain in right shoulder M25.511 and Other chronic pain G89.29 [facility] [id number] [place] [address] 16667- 0531 October, Hypothyroid E03.9 [facility] [id number] [place] [address] 20303- 7256 Oct, Undifferentiated schizophrenia F20.3 [facility] [id number] [place] [address] 75504- 3966 Oct, [facility] [id number] [place] [address] 96103- 0225 Oct, [facility] [id number] [place] [address] 61653- 6155 Aug, Undifferentiated schizophrenia F20.3 [facility] [id number] [place] [address] 79749- 9379 Aug, [facility] [id number] [place] [address] 41321- 1330 Aug, Undifferentiated schizophrenia F20.3 ; 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 ; Chronic posttraumatic stress disorder F43.12 and BMI 50.0- 59.9, adult Z68.43 [facility] [id number] [place] [address] 60646- 0428 Aug, [facility] [id number] [place] [address] 56788- 6087 Aug, [facility] [id number] [place] [address] 87368- 9203 Aug, Undifferentiated schizophrenia F20.3 [facility] [address] [place] [address] 36522- 7917 Aug, Hypothyroid E03.9 [facility] [id number] [place] [address] 00889- 9144 Jul, Undifferentiated schizophrenia F20.3 [facility] [id number] [place] [address] 84949- 4787 Jul, [facility] [id number] [place] [address] 10288- 4857 Jul, Undifferentiated schizophrenia F20.3 ; Chronic posttraumatic stress disorder F43.12 ; 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 and BMI 50.0-59.9, adult Z68.43 [facility] [id number] [place] [address] 04456- 5817 15 Jul, [address] 80034- 4170 Jul, Acute pain of right shoulder M25.511 ; High risk medication use Z79.899 ; Needle stick injury W27.3XXA ; Hypothyroid E03.9 and BMI 50.0-59.9 , adult Z68.43 [facility] [id number] [place] [address] 34894- 1566 Jun, Undifferentiated schizophrenia F20.3 [address] [place] [id number] [place] [address] 32167- 7055 Jun, Undifferentiated schizophrenia F20.3 ; Panic disorder without agoraphobia F41.0 ; Chronic posttraumatic stress disorder F43.12 and BMI 50.0-59.9, adult Z68.43 [facility] [id number] [place] [address] 96119- 1288 May, [facility] [id number] [place] [address] 20800- 1600 May, [facility] [id number] [place] [address] 23402- 2222 May, Undifferentiated schizophrenia F20.3 [facility] [id number] [place] [address] 07227- 2582 May, [facility] [id number] [place] [address] 60731- 9793 May, [facility] [address] [place] [address] 51803- 4786 15 May, 2017 Hypothyroid E03.9 [facility] [id number] [place] [address] 26591- 9406 13 May, 2017 [facility] [id number] [place] [address] 58905- 4402 10 May, 2017 [facility] [id number] [place] [address] 67627- 3210 07 May, 2017 Chronic posttraumatic stress disorder F43.12 ; 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 ; Undifferentiated schizophrenia F20.3 ; BMI 40.0-44.9, adult Z68.41 and Obesity E66.9 [facility] [address] [place] [address] 47689- 5914 May, Shortness of breath R06.02 [facility] [id number] [place] [address] 09564- 4172 May, [facility] [id number] [place] [address] 62272- 2385 Apr, Undifferentiated schizophrenia F20.3 [facility] [address], [place] [address]- 5436 Apr, [facility] [address] [place] [address] 68270- 1362 Apr, [facility] [address] [place] [address] 83472- 7359 Mar, Undifferentiated schizophrenia F20.3 ; Panic disorder without agoraphobia F41.0 and Chronic posttraumatic stress disorder F43.12 [facility] [address], [place] [address]- 4617 19 Mar, 2017 Undifferentiated schizophrenia F20.3 [facility] [address] [place] [address] 70462- 8867 18 Mar, 2017 [facility] [id number], [place] [address]- 7241 Mar, [facility] [address] [place] [address] 14451- 8676 Mar, [facility] [address], [place] [address]- 4017 Jan, Undifferentiated schizophrenia F20.3 [facility] [id number] [place] [address] 54740- 6560 Jan, [facility] [address] [place] [address] 52213- 6009 Jan, [facility] [address] [place] [address] 73765- 7968 Jan, [id number] [address] Dec, Needle stick injury W27.3XXA [facility] [address], [place] [address]- 3334 Dec, Needle stick injury W27.3XXA [facility] [id number] [place] [address] 99322- 5943 Dec, Undifferentiated schizophrenia F20.3 [facility] [address], [place] [address]- 1118 Dec, [facility] [address] [place] [address] 11893- 5049 Dec, [facility] [address] [place] [address] 18358- 1288 Dec, Undifferentiated schizophrenia F20.3 ; 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 and Chronic posttraumatic stress disorder F43.12 [facility] [address], [place] [address]- 2351 Dec, [facility] [address] [place] [address] 43158- 6352 October, [facility] [address], [place] [address]- 6034 October, Undifferentiated schizophrenia F20.3 [facility] [id number], [place] [address]- 0896 October, [facility] [address], [place] [address]- 0821 October, [facility] [id number] [place] [address] 46436- 7434 Oct, Undifferentiated schizophrenia F20.3 ; 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 ; Chronic posttraumatic stress disorder F43.12 and Obesity E66.9 [facility] [id number] [place] [address] 82739- 3219 Oct, [facility] [id number] [place] [address] 74040- 0119 Oct, [facility] [id number] [place] [address] 02070- 0058 Aug, Undifferentiated schizophrenia F20.3 [facility] [id number] [place] [address] 80856- 1502 Aug, [facility] [address], [place] [address]- 6665 Aug, Muscle spasm M62.838 [facility] [id number] [place] [address] 46596- 1940 Aug, Undifferentiated schizophrenia F20.3 [facility] [address], [place] [address]- 1217 Aug, Undifferentiated schizophrenia F20.3 ; 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 ; Chronic posttraumatic stress disorder F43.12 ; High risk medication use Z79.899 and 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 [facility] [address], [place] [address]- 7508 Aug, Undifferentiated schizophrenia F20.3 [facility] [address], [place] [address]- 7338 Aug, [facility] [id number] [place] [address] 67985- 0343 14 Aug, 2016 Acute non-recurrent maxillary sinusitis J01.00 [facility] [address] [place] [address] 18183- 6235 10 Aug, 2016 [facility] [id number] [place] [address] 50669- 4348 Aug, [facility] [address] [place] [address] 91276- 5410 Jul, Undifferentiated schizophrenia F20.3 [facility] [id number] [place] [address] 68133- 3202 Jul, Schizophrenia, undifferentiated F20.3 ; 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 ; Post-traumatic stress disorder F43.10 ; Panic disorder F41.0 and Depressive disorder, not elsewhere classified F32.9 [facility] [address] [place] [address] 81152- 9956 Jul, [facility] [address] [place] [address] 07005- 7387 Jul, Schizophrenia, undifferentiated F20.3 ; 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 ; Post-traumatic stress disorder F43.10 ; Panic disorder F41.0 and Depressive disorder, not elsewhere classified F32.9 [facility] [address], [place] [address]- 3983 Jul, [facility] [address] [place] [address] 30790- 4777 Jul, Undifferentiated schizophrenia F20.3 ; 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 ; 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 ; Obesity E66.9 and Chronic posttraumatic stress disorder F43.12 [facility] [address], [place] [address]- 2406 Jun, [facility] [id number] [place] [address] 06800- 5338 Jun, [facility] [id number] [place] [address] 30153- 9997 19 Jun, 2016 Dental caries K02.9 [facility] [id number] [place] [address] 32560- 0823 13 Jun, 2016 Undifferentiated schizophrenia F20.3 [facility] [address] 90828- 9959 30 May, 2016 [facility] [id number] [place] [address] 84290- 3347 29 May, 2016 Undifferentiated schizophrenia F20.3 ; 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 and Chronic post-traumatic stress disorder (PTSD) F43.12 [facility] [id number] [place] [address] 26157- 2637 May, [facility] [id number] [place] [address] 86463- 8149 May, Undifferentiated schizophrenia F20.3 [facility] [id number] [place] [address] 71504- 2524 May, [facility] [id number] [place] [address] 16619- 1598 07 May, 2016 Dental examination Z01.20 [facility] [address] [place] [address] 58173- 4402 Apr, Undifferentiated schizophrenia F20.3 ; PTSD (post-traumatic stress disorder) F43.10 and Obesity E66.9 [facility] [id number] [place] [address] 00548- 1326 18 Apr, 2016 [facility] [id number] [place] [address] 59516- 1379 15 Mar, 2016 [facility] [id number] [place] [address] 05669- 7169 09 Mar, 2016 [facility] [address] [place] [address] 23473- 6469 Jan, Shortness of breath R06.02 and Bipolar disorder with psychotic features F31.9 [address] [place] [address] [place] [address] 66834- 2286 Jan, [facility] [address] [place] [address] 17743- 0443 Jan, Increased intracranial pressure G93.2 ; Visual disturbance H53.9 and Bipolar II disorder F31.81 [address] [address] [place] [address] 06132- 0567 Jan, [address] [id number] [place] [address] 49360- 6812 Jan, [address] [place] [place] [address] 41702- 4132 Jan, [address] [place] [address] [place] [address] 27800- 4322 Jan, Acquired hypothyroidism E03.9 ; Depression F32.9 and Insomnia G47.00 [address] [address] [place] [address] 67769- 6112 Jan, Exertional dyspnea R06.09 ; Heart palpitations R00.2 ; Hyperlipidemia, unspecified hyperlipidemia type E78.5 ; Hypothyroidism, unspecified type E03.9 and Hypokalemia E87.6 [address] [address] [place] [address] 21381- 4057 Dec, PTSD (post-traumatic stress disorder) F43.10 ; Depression F32.9 ; Insomnia G47.00 and Bipolar disorder with psychotic features F31.9 [address] [address] [place] [address] 57859- 9789 Dec, Increased intracranial pressure G93.2 [address] [id number] [place] [address] 96295- 8981 Dec, [address] [place] [address]- 7963 Dec, Shortness of breath R06.02 [address] [address] [place] [address] 19732- 7306 05 Jan, 2016 Visual disturbance H53.9 and Headache, unspecified headache type R51 [address] [address] [place] [address] 11398- 4388 Dec, Insomnia G47.00 [address] [address] 80235- 2616 Dec, Murmur R01.1 [address] [address] 814654- 7968 Dec, Murmur R01.1 ; Tunnel vision, unspecified laterality H53.489 ; Orthostatic hypertension I10 ; Shortness of breath R06.02 and Tachycardia R00.0 [place] [address] [place] [address] 14924- 3253 Dec, [address] [address] 33501- 7405 Dec, Hypothyroid E03.9 and Bipolar 1 disorder F31.9 [address] [address] [place] [address] 23691- 5813 Dec, Bipolar 1 disorder F31.9 [address] [address] [place] [address] 30751- 0661 Dec, [address] [address] [place] [address] 04712- 4968 October, Acquired hypothyroidism E03.9 ; Depression F32.9 and Insomnia G47.00 [address] [address] [place] [address] 76505- 3315 October, [address] [address] [place] [address] 42399- 6232 October, Bipolar 1 disorder F31.9 ; PTSD (post-traumatic stress disorder) F43.10 and 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 [facility] [address] [place] [address] 56522- 1837 Oct, Bipolar 1 disorder F31.9 and Insomnia G47.00 [facility] [address] [place] [address] 05404- 6952 Oct, [facility] [id number] [place] [address] 51457- 6748 Oct, [facility] [id number] [place] [address] 19012- 0541 Aug, Hypothyroid E03.9 [address] [address] 45296- 9394 Aug, Encounter for therapeutic drug level monitoring Z51.81 and Other fdc (current) drug therapy Z79.899 [address] [address] [place] [address] 99005- 1974 Aug, Encounter for therapeutic drug level monitoring Z51.81 [place] [address] [place] [address] 59649- 2355 Aug, Acquired hypothyroidism E03.9 ; Leg pain M79.606 and Bipolar 1 disorder F31.9 [facility] [address] [place] [address] 08637- 4587 Aug, [facility] [id number] [place] [address] 55662- 9100 Aug, [address] [id number] [place] [address] 02789- 9275 Jul, Thyroid disorder E07.9 [place] [address] 34881- 7595 Jul, Rash R21 ; Abnormal LFTs R94.5 ; Acquired hypothyroidism E03.9 ; Sleep apnea in adult G47.33 and Fatty liver K76.0 [place] [address] [place] [address] 82678- 7337 Jun, [facility] [address], [place] [address]- 0889 Jun, [facility] [address] [place] [address] 84514- 5386 Jun, Bipolar II disorder F31.81 and Social phobia, generalized F40.11 [facility] [address] [place] [address] 82872- 5703 Mar, Bipolar II disorder 296.89 and Social phobia 300.23 [facility] [address] [place] [address] 08469- 9127 Dec, [facility] [id number] [place] [address] 36440- 0447 Dec, [facility] [address] [place] [address] 69756- 5124 Dec, Bipolar II disorder in partial or unspecified remission 296.89 and Social phobia, generalized 300.23 [facility] [address], [place] [address]- 4462 Oct, 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 [facility] [address] [place] [address] 804092- 1446 Oct, [facility] [address] [place] [address] 72799- 4100 Oct, [facility] [address] [place] [address] 12270- 4950 Aug, [facility] [address]- 8[address] Aug, [facility] [id number] [place] [id number] Aug, [facility] [id number] [address] Aug, [facility] [address] [id number] [place] [address] Aug, [facility] [address] [id number] [place] [address] Aug, [facility] [address] [id number] [place] [address] Aug, [facility] [address] [id number] [place] [address] Aug, [facility] [address] [id number] [place] [address] Jul, [facility] [address] [id number] [place] [address] Jul, [facility] [address] [id number] [place] [address] Jul, [facility] [address] [id number] [place] [address] Jul, [facility] [address] [id number] [place] [address] Jul, [facility] [address] [id number] [place] [address] Jul, [facility] [address] [id number] [place] [address] Jun, [facility] [place] [facility] [address] [id number] [place] [address] Jun, [facility] [place] [facility] [address] [id number] [place] [address] Jun, [facility] [place] [facility] [address] [id number] [place] [address] 69[address] Jun, [facility] [place] [facility] [address] [id number] [place] [address] 8[address] Jun, [facility] [place] [facility] [address] [id number] [place] [address] 4369 Jun, [facility] [place] [facility] [address] [id number] [place] [address]7 Jun, [facility] [place] [facility] [address] [id number] [place] [address] Jun, [facility] [place] [facility] [address] [id number] [place] [address] 9884 Jun, [facility] [place] [facility] [address] [id number] [place] [address] 3757 Jun, [facility] [place] [facility] [address] [id number] [place] [address] 9935 Jun, [facility] [place] [facility] [address] [id number] [place] [address] Jun, [facility] [place] [facility] [address] [id number] [place] [address] 7035 Jun, [facility] [place] [facility] [address] [id number] [place] [address] 8998 Jun, [facility] [place] [facility] [address] [id number] [place] [address] 1815 Jun, [facility] [place] [facility] [address] [id number] [place] [address] 9482 Jun, [facility] [place] [facility] [address] [id number] [place] [address] 5919 May, [facility] [place] [facility] [address] [id number], [place] [address] May, [facility] [place] [facility] [address] [id number] [place] [address]- 2098 May, [facility] [place] [facility] [address] [id number] [place] [address] 1915 May, [facility] [place] [facility] [address] [id number], [place] [address] May, [facility] [place] [facility] [address] [id number], [place] [address] May, [facility] [place] [facility] [address] [id number] [place] [address] 3602 Apr, [facility] [place] [facility] [address] [id number] [place] [address]- 2346 Apr, [facility] [place] [facility] [address] [id number] [place] [address]- 0432 Apr, [facility] [place] [facility] [address] [id number] [place] [address]- 5910 Apr, [facility] [place] [facility] [address] [id number] [place] [address] 3759 Apr, [facility] [place] [facility] [address] [id number] [place] [address]- 5042 Apr, [facility] [place] [facility] [address] [id number] [place] [address] 4987 Mar, [facility] [place] [facility] [address] [id number] [place] [address]- 4556 Mar, [facility] [place] [facility] [address] [id number] [place] [address]- 3069 Mar, [facility] [place] [facility] [address] [id number] [place] [address]- 4615 Mar, [facility] [place] [facility] [address] [id number] [place] [address] 5216 Jan, [facility] [place] [facility] [address] [id number] [place] [address]- 2394 Jan, [facility] [place] [facility] [address] [id number] [place] [address]- 8074 Jan, [facility] [place] [facility] [address] [id number] [place] [address]- 8508 Jan, [facility] [place] [facility] [address] [id number] [place] [address] 1274 Jan, [facility] [place] [facility] [address] [id number] [place] [address] 9[address] Jan, [facility] [place] [facility] [address] [id number] [place] [address] 2390 Dec, [facility] [place] [facility] [address] [id number] [place] [address]- 2546 Dec, [facility] [place] [facility] [address] [id number] [place] [address]- 4741 Dec, [facility] [place] [facility] [address] [id number] [place] [address]- 2549 Dec, [facility] [place] [facility] [address] [id number] [place] [address] 8783 Dec, [facility] [place] [facility] [address] [id number] [place] [address]- 1006 Dec, [facility] [place] [facility] [address] [id number] [place] [address] 1329 October, [facility] [place] [facility] [address] [id number] [place] [address] 3678 October, [facility] [place] [facility] [address] [id number] [place] [address]- 8686 October, [facility] [place] [facility] [address] [id number] [place] [address]- 2576 October, [facility] [place] [facility] [address] [id number] [place] [address] 3376 October, [facility] [place] [facility] [address] [id number] [place] [address]- 9506 October, [facility] [place] [facility] [address] [id number] [place] [address]- 7096 October, [facility] [place] [facility] [address] [id number] [place] [address]- 2546 October, [facility] [place] [facility] [address] [id number] [place] [address]- 3537 Oct, [facility] [place] [facility] [address] [id number] [place] [address]- 7576 Oct, [facility] [place] [facility] [address] [id number] [place] [address]- 6895 Oct, [facility] [place] [facility] [address] [id number] [place] [address] Oct, [facility] [place] [facility] [address] [id number] [place] [address]- 0480 Oct, [facility] [place] [facility] [address] [id number] [place] [address]- 3910 Aug, [facility] [place] [facility] [address] [id number] [place] [address]- 5211 Aug, [facility] [place] [facility] [address] [id number] [place] [address]- 5788 Aug, [facility] [place] [facility] [address] [id number] [place] [address]- 8832 Aug, [facility] [place] [facility] [address] [id number] [place] [address]- 3020 Aug, [facility] [place] [facility] [address] [id number] [place] [address]- 1694 Aug, [facility] [place] [facility] [address] [id number] [place] [address]- 7968 Jul, [facility] [place] [facility] [address] [id number], [place] [address] Jul, [facility] [place] [facility] [address] [id number] [place] [address]- 7913 Jul, [facility] [place] [facility] [address] [id number] [place] [address]- 3242 Jul, [facility] [place] [facility] [address] [id number] [place] [address]- 5373 Jul, [facility] [place] [facility] [address] [id number] [place] [address]- 6611 Jul, [facility] [address] [id number] [place] [address]- 2081 Jun, [facility] [address] [id number] [place] [address]- 4638 Jun, [facility] [address] [id number] [place] [address]- 6334 Jun, [facility] [place] [facility] [address] [id number] [place] [address]- 8934 Jun, [facility] [address] [id number] [place] [address]- 4270 Jun, [facility] [address] [id number] [place] [address]- 3417 Jun, [facility] [address] [id number] [place] [address]- 4763 May, [facility] [address] [id number] [place] [address]- 6525 May, [facility] [address] [id number] [place] [address]- 7442 Apr, [facility] [address] [id number] [place] [address]- 2967 Apr, [facility] [place] [facility] [address] [id number] [place] [address]- 2141 Apr, [facility] [place] [facility] [address] [id number] [place] [address]- 1934 Apr, [facility] [place] [facility] [address] [id number] [place] [address]- 4305 Apr, [facility] [place] [facility] [address] [id number] [place] [address]- 0835 Apr, [facility] [place] [facility] [address] [id number] [place] [address]- 8015 Apr, [facility] [place] [facility] [address] [id number] [place] [address]- 5840 18 Apr, 2013 [facility] [place] [facility] [address] [id number] [place] [address]- 1021 18 Apr, 2013 [facility] [place] [facility] [address] [id number] [place] [address]- 5543 04 Apr, 2013 [facility] [place] [facility] [address] [id number] [place] [address]- 1780 02 Apr, 2013 [facility] [place] [facility] [address] [id number] [place] [address]- 6463 23 Mar, 2013 [facility] [place] [facility] [address] [id number] [place] [address]- 7388 20 Mar, 2013 [facility] [place] [facility] [address] [id number] [place] [address]- 4747 20 Mar, 2013 [facility] [place] [facility] [address] [id number] [place] [address]- 5884 14 Mar, 2013 [facility] [place] [facility] [address] [id number] [place] [address]- 4721 12 Mar, 2013 [facility] [place] [facility] [address] [id number] [place] [address]- 0354 06 Mar, 2013 [facility] [place] [facility] [address] [id number] [place] [address]- 2102 06 Mar, 2013 [facility] [place] [facility] [address] [id number], [place] [address] Jan, [facility] [place] [facility] [address] [id number] [place] [address]- 7566 14 Jan, 2013 [facility] [place] [facility] [address] [id number] [place] [address]- 5259 Jan, [facility] [place] [facility] [address] [id number], [place] [address]- 2239 Jan, [facility] [place] [facility] [address] [id number], [place] [address]- 8870 Jan, [facility] [address] [id number] [place] [address]- 6210 Jan, [facility] [address] [id number] [place] [address]- 2595 Jan, [facility] [address] [id number] [place] [address]- 5979 Dec, [facility] [address] [id number] [place] [address]- 9125 Dec, [facility] [address] [id number] [place] [address]- 2873 Dec, [facility] [address] [id number] [place] [address]- 7455 Dec, [facility] [address] [id number] [place] [address]- 5018 Dec, [facility] [address] [id number] [place] [address]- 3187 Dec, [facility] [address] [id number] [place] [address]- 3498 October, [facility] [address] [id number] [place] [address]- 5308 October, [facility] [address] [id number] [place] [address]- 4332 October, [facility] [place] [facility] [address] [id number] [place] [address]- 8820 October, [facility] [place] [facility] [address] [id number] [place] [address]- 7505 Oct, [facility] [place] [facility] [address] [id number] [place] [address]- 5603 Oct, [facility] [place] [facility] [address] [id number] [place] [address]- 4027 Aug, [facility] [place] [facility] [address] [id number] [place] [address]- 9264 26 Aug, 2012 [facility] [address] [id number] [place] [address]- 0784 21 Aug, 2012 [facility] [place] [facility] [address] [id number] [place] [address]- 5169 Aug, [facility] [place] [facility] [address] [id number] [place] [address]- 3723 18 Aug, 2012 [facility] [place] [facility] [address] [id number] [place] [address]- 0683 Aug, [facility] [place] [facility] [address] [id number] [place] [address]- 8260 Aug, [facility] [place] [facility] [address] [facility] [id number] [place] [address]- 7544 Aug, [facility] [place] [facility] [address] [id number] [place] [address]- 6335 Aug, [facility] [place] [facility] [address] [id number] [place] [address]- 2353 Aug, [facility] [place] [facility] [address] [facility] [id number] [place] [address]- 8963 Aug, [facility] [place] [facility] [address] [facility] [id number] [place] [address]- 7244 Aug, [facility] [place] [facility] [address] [id number], [place] [address]- 6324 Aug, [facility] [place] [facility] [address] [id number] [place] [address]- 9514 Aug, [facility] [place] [facility] [address] [id number] [place] [address]- 7850 Jul, [facility] [place] [facility] [address] [id number] [place] [address] Jul, [facility] [place] [facility] [address] [facility] [id number], [place] [address]- 1704 Jul, [facility] [id number] [address]24 Jul, [facility] [id number] [address]13 Jun, [facility] [id number] 9969 Jun, [facility] [id number] 9835 Jun, [facility] [address] 0000 Jun, [facility] [id number] [address] May, [facility] [address] [id number] [address]563 May, IMMUNIZATIONS Vaccine Route Administration Date Status ARISTADA 882 MG/3.2 ML (PT'S OWN) IM Intramuscular Apr 19, 2018 Administered SOCIAL HISTORY Never Assessed REASON FOR VISIT f/u Sami, Schizophrenia / PTSD PLAN OF CARE Activity Details Follow Up 2 Months Reason: VITAL SIGNS Height 67 in 2018-04-19 Weight 329.7 lbs 2018-04-19 Heart Rate 104 bpm 2018-04-19 Respiratory Rate 22 2018-04-19 BMI 51.63 kg/m2 2018-04-19 Blood pressure systolic 140 mmHg 2018-04-19 Blood pressure diastolic 82 mmHg 2018-04-19 MEDICATIONS Medication Instructions Dosage Frequency Start Date End Date Duration Status Trazodone HCl 100 mg Orally Once a day 2 tablet at bedtime 24h Active Clonazepam 1 MG Orally 3 times a day for anxiety 1 tablet Apr, Active Breo Ellipta 100-25 MCG/INH Inhalation Once a day 1 puff 24h Dec, 90 days Active Nittany Carbonate 300 MG Orally 2 times a day 1 tablet in the morning, 2 tablets at bedtime 12h Active Aristada 882 MG/3.2ML Intramuscular once monthly 3.2 ml May, Active HydrOXYzine HCl 25 MG Orally Three times per day for anxiety 1 tablet as needed 14 Pito, 2018 30 days Active Levothyroxine Sodium 100 MCG Orally Once a day 1 tablet 24h 30 Sep, 2015 90 days Active Neurontin 800 MG Orally 2 times a day 1 tablet 12h 03 Aug, 2014 67 days Active RESULTS No Results PROCEDURES Procedure Date Ordered Result Body Site ARISTADA 882 MG/3.2 ML (PT'S OWN) Apr 19, 2018 THER/PROPH/DIAG INJ, SC/IM Apr 19, 2018 INSTRUCTIONS MEDICATIONS ADMINISTERED No Known Medications MEDICAL [...]
--- OUTSIDE RECORDS SUMMARY | 2018-09-02 17:50 | XMS REPORT ---
Author Author DIGNA GUERRERO [facility] Address [address] [place] [address] Care Team Providers Care Blood Coordinator Name Role Phone DIGNA GUERRERO Unavailable PROBLEMS Type Condition ICD9-CM Code [id number] Code Onset Dates Condition Status SNOMED Code Problem 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 Active 48175667 Problem Depressive disorder, not elsewhere classified F32.9 Active 11051358 Problem Chronic posttraumatic stress disorder F43.12 Active 078097742 Problem Insomnia G47.00 Active 958134264 Problem Obesity E66.9 Active 063580228 Problem Other chronic pain G89.29 Active 19724175 Problem Fatty liver K76.0 Active 550722988 Problem Abuse, drug or alcohol F19.10 Active 47545218 Problem Panic disorder without agoraphobia F41.0 Active 66379480 Problem Panic disorder F41.0 Active 659212058 Problem Hypothyroid E03.9 Active 64107089 Problem BMI 50.0-59.9, adult Z68.43 Active 780914980 Problem Restless legs syndrome G25.81 Active 101285698 Problem Encounter for therapeutic drug level monitoring Z51.81 Active 536901856 Problem Neuropathy G62.9 Active 171141745 Problem 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 Active 90963373 Problem Tachycardia R00.0 Active 1033683 Problem Murmur R01.1 Active 407685125 Problem Orthostatic hypertension I10 Active 65121759 Problem Shortness of breath R06.02 Active 251593606 Problem Sleep apnea in adult G47.33 Active 96781649 Problem Tunnel vision, unspecified laterality H53.489 Active 524076939 Problem Undifferentiated schizophrenia F20.3 Active 733918549 ALLERGIES No Information ENCOUNTERS Encounter Location Date Diagnosis [facility] [id number] [address] May, [facility] [id number] [place] [address] 10826- 7849 May, [facility] [id number] [place] [address] 87561- 1589 Apr, [facility] [id number] [place] [address] 88080- 8901 Apr, [facility] [id number] [place] [address] 62495- 0233 Apr, Undifferentiated schizophrenia F20.3 ; 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 ; 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 and BMI 50.0-59.9, adult Z68.43 [facility] [id number] [place] [address] 89133- 7323 Apr, [facility] [id number] [place] [address] 65796- 8241 Apr, Undifferentiated schizophrenia F20.3 [facility] [id number] [place] [address] 13144- 7285 Mar, Undifferentiated schizophrenia F20.3 [facility] [id number] [place] [address] 32196- 6024 Mar, [facility] [id number] [place] [address] 26995- 7730 Mar, Undifferentiated schizophrenia F20.3 [facility] [id number] [place] [address] 10720- 5078 Jan, [facility] [id number] [place] [address] 50280- 5485 Jan, Undifferentiated schizophrenia F20.3 [facility] [id number] [place] [address] 08533- 4238 Jan, [facility] [id number] [place] [address] 45982- 9533 Jan, Undifferentiated schizophrenia F20.3 [facility] [id number] [place] [address] 89647- 1532 Dec, [facility] [address], [place] [address] 0231 Dec, [facility] [id number] [place] [address] 07749- 7731 Dec, [facility] [id number] [place] [address] 10642- 9963 Dec, Undifferentiated schizophrenia F20.3 ; 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 ; Chronic posttraumatic stress disorder F43.12 and BMI 50.0- 59.9, adult Z68.43 [facility] [id number] [place] [address] 25691- 1658 Dec, [facility] [id number] [place] [address] 57528- 9837 Dec, Undifferentiated schizophrenia F20.3 ; Insomnia G47.00 and Thyroid disorder E07.9 [facility] [id number] [place] [address] 95501- 9444 Dec, Undifferentiated schizophrenia F20.3 [facility] [id number] [place] [address] 89008- 0111 Dec, [facility] [id number] [place] [address] 61849- 2016 Dec, [facility] [id number] [place] [address] 05403- 5140 Dec, BMI 50.0-59.9, adult Z68.43 ; Undifferentiated schizophrenia F20.3 ; Panic disorder without agoraphobia F41.0 and Chronic posttraumatic stress disorder F43.12 [facility] [id number] [place] [address] 76714- 6152 04 Dec, 2017 [facility] [id number] [place] [address] 93208- 6604 October, [facility] [id number] [place] [address] 67037- 9329 October, Pain in right shoulder M25.511 and Other chronic pain G89.29 [facility] [id number] [place] [address] 16924- 9107 October, Hypothyroid E03.9 [facility] [id number] [place] [address] 86883- 6986 Oct, Undifferentiated schizophrenia F20.3 [facility] [address] 71730- 7558 Oct, [facility] [address] 13163- 6036 Oct, [facility] [address] 55792- 6585 Aug, Undifferentiated schizophrenia F20.3 [facility] [address] 27331- 9426 Aug, [facility] [address] 94099- 5501 Aug, Undifferentiated schizophrenia F20.3 ; 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 ; Chronic posttraumatic stress disorder F43.12 and BMI 50.0- 59.9, adult Z68.43 [facility] [id number] [place] [address] 65449- 9504 Aug, [facility] [id number] [place] [address] 03821- 1035 Aug, [facility] [id number] [place] [address] 57398- 6932 Aug, Undifferentiated schizophrenia F20.3 [facility] [address] 76716- 4280 Aug, Hypothyroid E03.9 [facility] [id number] [place] [address] 07466- 5561 Jul, Undifferentiated schizophrenia F20.3 [facility] [id number] [place] [address] 38399- 3845 Jul, [facility] [id number] [place] [address] 19944- 7598 Jul, Undifferentiated schizophrenia F20.3 ; Chronic posttraumatic stress disorder F43.12 ; 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 and BMI 50.0-59.9, adult Z68.43 [facility] [id number] [place] [address] 78022- 1716 15 Jul, 2017 [facility] [id number] [place] [address] 92054- 5034 08 Jul, 2017 Acute pain of right shoulder M25.511 ; High risk medication use Z79.899 ; Needle stick injury W27.3XXA ; Hypothyroid E03.9 and BMI 50.0-59.9 , adult Z68.43 [facility] [id number] [place] [address] 26615- 9413 Jun, Undifferentiated schizophrenia F20.3 [facility] [id number] [place] [address] 92417- 8511 14 Jun, 2017 Undifferentiated schizophrenia F20.3 ; Panic disorder without agoraphobia F41.0 ; Chronic posttraumatic stress disorder F43.12 and BMI 50.0-59.9, adult Z68.43 [facility] [id number] [place] [address] 65997- 2967 May, [facility] [id number] [place] [address] 59751- 7047 May, [facility] [id number] [place] [address] 78778- 9519 May, Undifferentiated schizophrenia F20.3 [facility] [id number] [place] [address] 41538- 8817 May, [facility] [id number] [place] [address] 03796- 6750 May, [facility] [id number] [place] [address] 88281- 7116 15 May, 2017 Hypothyroid E03.9 [facility] [id number] [place] [address] 32330- 9128 May, [facility] [id number] [place] [address] 79818- 1533 10 May, 2017 [facility] [id number] [place] [address] 57075- 1618 May, Chronic posttraumatic stress disorder F43.12 ; 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 ; Undifferentiated schizophrenia F20.3 ; BMI 40.0-44.9, adult Z68.41 and Obesity E66.9 [facility] [id number] [place] [address] 96968- 4514 07 May, 2017 Shortness of breath R06.02 [facility] [id number] [place] [address] 52949- 1419 May, [facility] [id number] [place] [address] 28802- 1339 Apr, Undifferentiated schizophrenia F20.3 [facility] [id number] [place] [address] 52431- 5256 Apr, [facility] [id number] [place] [address] 69996- 6790 Apr, [facility] [id number] [place] [address] 00050- 0628 Mar, Undifferentiated schizophrenia F20.3 ; Panic disorder without agoraphobia F41.0 and Chronic posttraumatic stress disorder F43.12 [facility] [id number] [place] [address] 52275- 5973 Mar, Undifferentiated schizophrenia F20.3 [facility] [id number] [place] [address] 43641- 5059 18 Mar, 2017 [facility] [id number] [place] [address] 83281- 4138 08 Mar, 2017 [facility] [address], [place] [address]- 8019 Mar, [facility] [id number] [place] [address] 19733- 4138 Jan, Undifferentiated schizophrenia F20.3 [facility] [id number] [place] [address] 46535- 8490 Jan, [facility] [id number] [place] [address] 21108- 8247 Jan, [facility] [id number] [place] [address] 99217- 5316 Jan, [id number] [id number] Dec, Needle stick injury W27.3XXA [facility] [id number] [place] [address] 54855- 8534 Dec, Needle stick injury W27.3XXA [facility] [id number] [place] [address] 31251- 9271 Dec, Undifferentiated schizophrenia F20.3 [facility] [id number] [place] [address] 83288- 3759 Dec, [facility] [id number] [place] [address] 58964- 0392 Dec, [facility] [id number] [place] [address] 22117- 9191 Dec, Undifferentiated schizophrenia F20.3 ; 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 and Chronic posttraumatic stress disorder F43.12 [facility] [id number] [place] [address] 20743- 3591 Dec, [facility] [id number] [place] [address] 11330- 3308 October, [facility] [id number] [place] [address] 78321- 7586 October, Undifferentiated schizophrenia F20.3 [facility] [address], [place] [address]- 1547 October, [facility] [id number] [place] [address] 05346- 9216 October, [facility] [id number] [place] [address] 95373- 6433 Oct, Undifferentiated schizophrenia F20.3 ; 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 ; Chronic posttraumatic stress disorder F43.12 and Obesity E66.9 [facility] [id number] [place] [address] 35065- 8379 Oct, [facility] [id number] [place] [address] 07410- 8951 Oct, [facility] [id number] [place] [address] 13046- 3758 Aug, Undifferentiated schizophrenia F20.3 [facility] [id number] [place] [address] 61310- 4620 Aug, [facility] [id number] [place] [address] 52170- 4077 Aug, Muscle spasm M62.838 [facility] [id number] [place] [address] 23018- 5429 Aug, Undifferentiated schizophrenia F20.3 [facility] [id number] [place] [address] 65535- 3741 Aug, Undifferentiated schizophrenia F20.3 ; 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 ; Chronic posttraumatic stress disorder F43.12 ; High risk medication use Z79.899 and 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 [facility] [id number] [place] [address] 83403- 2099 Aug, Undifferentiated schizophrenia F20.3 [facility] [address], [place] [address]- 8656 Aug, [facility] [id number] [place] [address] 74084- 5104 14 Aug, 2016 Acute non-recurrent maxillary sinusitis J01.00 [facility] [id number] [place] [address] 77978- 1606 10 Aug, 2016 [facility] [id number] [place] [address] 34184- 8268 01 Aug, 2016 [facility] [id number] [place] [address] 12013- 8478 Jul, Undifferentiated schizophrenia F20.3 [facility] [id number] [place] [address] 54896- 7390 Jul, Schizophrenia, undifferentiated F20.3 ; 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 ; Post-traumatic stress disorder F43.10 ; Panic disorder F41.0 and Depressive disorder, not elsewhere classified F32.9 [facility] [id number] [place] [address] 05166- 2614 Jul, [facility] [id number] [place] [address] 92598- 8789 Jul, Schizophrenia, undifferentiated F20.3 ; 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 ; Post-traumatic stress disorder F43.10 ; Panic disorder F41.0 and Depressive disorder, not elsewhere classified F32.9 [facility] [id number] [place] [address] 10666- 0385 Jul, [facility] [id number] [place] [address] 28918- 4508 Jul, Undifferentiated schizophrenia F20.3 ; 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 ; 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 ; Obesity E66.9 and Chronic posttraumatic stress disorder F43.12 [facility] [id number] [place] [address] 67904- 1535 Jun, [facility] [id number] [place] [address] 62413- 3791 Jun, [facility] [id number] [place] [address] 84597- 3004 19 Jun, 2016 Dental caries K02.9 [facility] [id number] [place] [address] 83169- 3846 13 Jun, 2016 Undifferentiated schizophrenia F20.3 [facility] [id number] [place] [address] 16796- 0398 30 May, 2016 [facility] [id number] [place] [address] 74791- 3340 May, Undifferentiated schizophrenia F20.3 ; 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 and Chronic post-traumatic stress disorder (PTSD) F43.12 [address] [id number] [place] [address] 00970- 3968 May, [address] [facility] [id number] [place] [address] 88901- 7091 May, Undifferentiated schizophrenia F20.3 [address] [facility] [id number] [place] [address] 10291- 6143 May, [address] [facility] [id number] [place] [address] 58979- 3896 07 May, 2016 Dental examination Z01.20 [facility] [id number] [place] [address] 78941- 3509 20 Apr, 2016 Undifferentiated schizophrenia F20.3 ; PTSD (post-traumatic stress disorder) F43.10 and Obesity E66.9 [facility] [id number] [place] [address] 64089- 9619 18 Apr, 2016 [facility] [id number] [place] [address] 02485- 2219 15 Mar, 2016 [facility] [id number] [place] [address] 00314- 3505 09 Mar, 2016 [facility] [id number] [place] [address] 47405- 3985 Jan, Shortness of breath R06.02 and Bipolar disorder with psychotic features F31.9 [facility] [id number] [place] [address] 87185- 4499 Jan, [facility] [id number] [place] [address] 87495- 9540 Jan, Increased intracranial pressure G93.2 ; Visual disturbance H53.9 and Bipolar II disorder F31.81 [address] [facility] [address] 43125- 5616 Jan, [facility] [id number] [place] [address] 13646- 3301 Jan, [address] 66947- 4444 Jan, [address] [facility] [id number] [place] [address] 25010- 8567 Jan, Acquired hypothyroidism E03.9 ; Depression F32.9 and Insomnia G47.00 [address] [facility] [id number] [place] [address] 22391- 3630 Jan, Exertional dyspnea R06.09 ; Heart palpitations R00.2 ; Hyperlipidemia, unspecified hyperlipidemia type E78.5 ; Hypothyroidism, unspecified type E03.9 and Hypokalemia E87.6 [address] [facility] [id number] [place] [address] 55365- 0167 Dec, PTSD (post-traumatic stress disorder) F43.10 ; Depression F32.9 ; Insomnia G47.00 and Bipolar disorder with psychotic features F31.9 [id number] [place] [address] 36777- 1294 Dec, Increased intracranial pressure G93.2 [facility] [id number] [place] [address] 88868- 4982 Dec, [address] [id number] [place] [address] 12298- 8970 Dec, Shortness of breath R06.02 [address] [id number] [place] [address] 59950- 3099 Dec, Visual disturbance H53.9 and Headache, unspecified headache type R51 [facility] [id number] [place] [address] 44666- 7045 Dec, Insomnia G47.[address] 86504- 0474 Dec, Murmur R01.1 [address] 84883- 8968 Dec, Murmur R01.1 ; Tunnel vision, unspecified laterality H53.489 ; Orthostatic hypertension I10 ; Shortness of breath R06.02 and Tachycardia R00.0 [address] 17795- 4398 Dec, [address] [address] [address] 41526- 2023 Dec, Hypothyroid E03.9 and Bipolar [address] 19686- 4995 Dec, Bipolar 1 disorder F31.9 [facility] [id number] [place] [address] 51123- 9917 Dec, [facility] [id number] [place] [address] 92014- 4827 October, Acquired hypothyroidism E03.9 ; Depression F32.9 and Insomnia G47.00 [facility] [id number] [place] [address] 26207- 9371 October, [address] 39732- 3311 October, Bipolar 1 disorder F31.9 ; PTSD (post-traumatic stress disorder) F43.10 and 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 [address] [address] 80864- 5901 Oct, Bipolar 1 disorder F31.9 and Insomnia G47.00 [facility] [id number] [place] [address] 75294- 4703 Oct, [facility] [id number] [place] [address] 32974- 4158 Oct, [facility] [id number] [place] [address] 12877- 5799 Aug, Hypothyroid E03.9 [facility] [address] 13783- 7677 Aug, Encounter for therapeutic drug level monitoring Z51.81 and Other group home (current) drug therapy Z79.899 [facility] [id number] [place] [address] 22975- 7424 Aug, Encounter for therapeutic drug level monitoring Z51.81 [facility] [id number] [place] [address] 77695- 6576 Aug, Acquired hypothyroidism E03.9 ; Leg pain M79.606 and Bipolar 1 disorder F31.9 [facility] [address] 54308- 8659 Aug, [facility] [id number] [place] [address] 36015- 1691 Aug, [facility] [id number] [place] [address] 13875- 1430 Jul, Thyroid disorder E07.9 [facility] [id number] [place] [address] 15851- 6349 Jul, Rash R21 ; Abnormal LFTs R94.5 ; Acquired hypothyroidism E03.9 ; Sleep apnea in adult G47.33 and Fatty liver K76.0 [facility] [id number] [place] [address] 36720- 4338 Jun, [facility] [address] 51548- 1584 Jun, [facility] [address] 6622 Jun, Bipolar II disorder F31.81 and Social phobia, generalized F40.11 [facility] [id number] [place] [address] 04187- 7626 Mar, Bipolar II disorder 296.89 and Social phobia 300.23 [facility] [id number] [place] [address] 57419- 0554 Dec, [facility] [id number] [place] [address] 092014- 5458 Dec, [facility] [id number] [place] [address] 210195- 0016 Dec, Bipolar II disorder in partial or unspecified remission 296.89 and Social phobia, generalized 300.23 [facility] [id number] [place] [address] 81984- 7788 Oct, 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 [facility] [id number] [place] [address] 91065- 1921 Oct, [facility] [id number] [place] [address] 97640- 1521 Oct, [facility] [address] [address]- 6625 Aug, [facility] [id number] [place] [address] 75755- 7954 Aug, [facility] [id number] [address] Aug, [facility] [id number] [place] [address]- [address] Aug, [facility] [id number] [address] Aug, [facility] [id number] [place] [address] Aug, [facility] [place] [facility] [address] [id number] [place] [address] Aug, [facility] [place] [facility] [address] [id number] [place] [address] Aug, [facility] [place] [facility] [address] [id number] [place] [address] Jul, [facility] [place] [facility] [address] [id number] [place] [address] Jul, [facility] [place] [facility] [address] [id number] [place] [address] Jul, [facility] [place] [facility] [address] [id number] [place] [address] Jul, [facility] [place] [facility] [address] [id number] [place] [address]- [address] Jul, [facility] [place] [facility] [address] [id number] [place] [address] Jul, [facility] [place] [facility] [address] [id number] [place] [address] Jun, [facility] [place] [facility] [address] [id number] [place] [address] Jun, [facility] [place] [facility] [address] [id number] [place] [address] Jun, [facility] [place] [facility] [address] [id number] [place] [address] Jun, [facility] [place] [facility] [address] [id number] [place] [address]- [address] Jun, [facility] [place] [facility] [address] [id number] [place] [address] Jun, [facility] [place] [facility] [address] [id number] [place] [address] Jun, [facility] [facility] [address] [id number] [place] [address] Jun, [facility] [place] [facility] [address] [id number] [place] [address] Jun, [facility] [place] [facility] [address] [id number] [place] [address] Jun, [facility] [place] [facility] [address] [id number] [place] [address] Jun, [facility] [place] [facility] [address] [id number] [place] [address] Jun, [facility] [place] [facility] [address] [id number] [place] [address] Jun, [facility] [place] [facility] [address] [id number] [place] [address]- [address] Jun, [facility] [place] [facility] [address] [id number] [place] [address]- 57[address] Jun, [facility] [place] [facility] [address] [id number] [place] [address] 32[address] Jun, [facility] [place] [facility] [address] [id number] [place] [address] 44[address] May, [facility] [place] [facility] [address] [id number] [place] [address] 60[address] May, [facility] [place] [facility] [address] [id number], [place] [address] May, [facility] [place] [facility] [address] [id number] [place] [address]- 1475 May, [facility] [place] [facility] [address] [id number] [place] [address]- 67[address] May, [facility] [place] [facility] [address] [id number] [place] [address]- [address] May, [facility] [place] [facility] [address] [id number] [place] [address]- 4[address] Apr, [facility] [place] [facility] [address] [id number] [place] [address]- 6560 Apr, [facility] [place] [facility] [address] [id number] [place] [address]- 8962 Apr, [facility] [place] [facility] [address] [id number] [place] [address]- 8[address] Apr, [facility] [place] [facility] [address] [id number] [place] [address]- [address] Apr, [facility] [place] [facility] [address] [id number] [place] [address]- 68[address] Apr, [facility] [place] [facility] [address] [id number] [place] [address] 9112 Mar, [facility] [place] [facility] [address] [id number] [place] [address]- 8475 Mar, [facility] [place] [facility] [address] [id number] [place] [address]- 7[address] Mar, [facility] [place] [facility] [address] [id number] [place] [address]- 7714 Mar, [facility] [place] [facility] [address] [id number] [place] [address]- 4849 Jan, [facility] [place] [facility] [address] [id number] [place] [address]- 8067 Jan, [facility] [place] [facility] [address] [id number] [place] [address]- 7488 Jan, [facility] [place] [address] [id number] [place] [address]- 3548 Jan, [facility] [address] [id number] [place] [address]- 2574 Jan, [facility] [address] [id number] [place] [address]- 7636 Jan, [facility] [place] [facility] [address] [id number] [place] [address] 37[address] Dec, [facility] [address] [id number] [place] [address]258 Dec, [facility] [address] [id number] [place] [address] 1797 Dec, [facility] [address] [id number] [place] [address]- 7898 Dec, [facility] [address] [id number] [place] [address]- [address] Dec, [facility] [address] [id number] [place] [address]- 2595 Dec, [facility] [address] [id number] [place] [address]- [address] October, [facility] [address] [id number] [place] [address] 8315 October, [facility] [address] [id number] [place] [address]- 2235 October, [facility] [address] [id number] [place] [address]- 4381 October, [facility] [address] [id number] [place] [address]- 8861 October, [facility] [address] [id number] [place] [address] 6593 October, [facility] [address] [id number] [place] [address]- 7635 October, [facility] [address] [id number] [place] [address]- 8628 October, [facility] [address] [id number] [place] [address]- 3316 Oct, [facility] [address] [id number] [place] [address]- 6114 Oct, [facility] [address] [id number] [place] [address]- 8926 Oct, [facility] [address] [id number] [place] [address]- 9750 Oct, [facility] [address] [id number] [place] [address] Oct, [facility] [address] [id number] [place] [address]- 7422 Aug, [facility] [address] [id number] [place] [address]- 2224 Aug, [facility] [address] [id number] [place] [address]- 6340 Aug, [facility] [address] [id number] [place] [address]- 2647 Aug, [facility] [address] [id number] [place] [address]- 3274 Aug, [facility] [address] [id number] [place] [address]- 1829 Aug, [facility] [address] [id number] [place] [address]- 8548 Jul, [facility] [address] [id number], [place] [address]166 Jul, [facility] [address] [id number], [place] [address] Jul, [facility] [address] [id number] [place] [address]- 6398 Jul, [facility] [address] [id number] [place] [address]- 9034 Jul, [facility] [address] [id number] [place] [address]- 7688 Jul, [facility] [address] [id number] [place] [address]- 3347 Jun, [facility] [address] [id number] [place] [address]- 2360 Jun, [facility] [address] [id number] [place] [address]- 8235 Jun, [facility] [address] [id number] [place] [address]- 9046 Jun, [facility] [address] [id number] [place] [address]- 7789 Jun, [facility] [address] [id number] [place] [address]- 1314 Jun, [facility] [address] [id number] [place] [address]- 5606 May, [facility] [address] [id number] [place] [address]- 3252 May, [facility] [address] [id number] [place] [address]- 9573 Apr, [facility] [address] [id number] [place] [address]- 4951 24 Apr, 2013 [facility] [address] [id number] [place] [address]- 9862 Apr, [facility] [address] [id number] [place] [address]- 1284 Apr, [facility] [address] [id number] [place] [address]- 2495 Apr, [facility] [address] [id number] [place] [address]- 6939 Apr, [facility] [address] [id number] [place] [address]- 6030 Apr, [facility] [address] [id number] [place] [address]- 6147 Apr, [facility] [address] [id number] [place] [address]- 9604 18 Apr, 2013 [facility] [address] [id number] [place] [address]- 3539 04 Apr, 2013 [facility] [address] [id number] [place] [address]- 9224 Apr, [facility] [address] [id number] [place] [address]- 3328 23 Mar, 2012 [facility] [address] [id number] [place] [address]- 3757 20 Mar, 2013 [facility] [address] [id number] [place] [address]- 6107 20 Mar, 2013 [facility] [address] [id number] [place] [address]- 0469 14 Mar, 2013 [facility] [address] [id number] [place] [address]- 8798 12 Mar, 2013 [facility] [address] [id number] [place] [address]- 2595 Mar, [facility] [address] [id number] [place] [address]- 2404 06 Mar, 2013 [facility] [address] [id number] [place] [address]- 6034 Jan, [facility] [address] [id number] [place] [address]- 8693 14 Jan, 2013 [facility] [address] [id number] [place] [address]- 9558 Jan, [facility] [address] [id number] [place] [address]- 2990 Jan, [facility] [address] [id number] [place] [address]- 3763 08 Jan, 2013 [facility] [address] [id number] [place] [address]- 8854 Jan, [facility] [address] [id number] [place] [address]- 0661 Jan, [facility] [address] [id number] [place] [address]- 3176 Dec, [facility] [address] [id number] [place] [address]- 8244 Dec, [facility] [address] [id number] [place] [address]- 5455 Dec, [facility] [address] [id number] [place] [address]- 3231 Dec, [facility] [address] [id number] [place] [address]- 7710 Dec, [facility] [address] [id number] [place] [address]- 0083 Dec, [facility] [address] [id number] [place] [address]- 3015 October, [facility] [address] [id number] [place] [address]- 4079 October, [facility] [address] [id number] [place] [address]- 7972 October, [facility] [address] [id number] [place] [address]- 6950 October, [facility] [address] [id number] [place] [address]- 1130 Oct, [facility] [address] [id number] [place] [address]- 3932 Oct, [facility] [address] [id number] [place] [address]- 7357 Aug, [facility] [address] [id number] [place] [address]- 5884 Aug, [facility] [address] [id number] [place] [address]- 7504 Aug, [facility] [address] [id number] [place] [address]- 4790 20 Aug, 2012 [facility] [address] [id number] [place] [address]- 6148 18 Aug, 2012 [facility] [address] [id number] [place] [address]- 2413 07 Aug, 2012 [facility] [address] [id number] [place] [address]- 5353 Aug, [facility] [address] [id number] [place] [address]- 5775 Aug, [facility] [address] [id number] [place] [address]- 6940 Aug, [facility] [address] [id number] [place] [address]- 9191 Aug, [facility] [address] [id number] [place] [address]- 9106 Aug, [facility] [address] [facility] [id number] [place] [address]- 6912 08 Aug, 2012 [facility] [address] [id number] [place] [address]- 8891 Aug, [facility] [address] [id number] [place] [address]- 5399 Aug, [facility] [address] [id number] [place] [address]- 8349 Jul, [facility] [address] [id number] [place] [address]- 2145 Jul, [facility] [address] [id number] [place] [address]- 7828 Jul, [facility] [address] [id number] [place] [address] Jul, [facility] [address] [facility] [id number], [place] [address]- 1546 Jun, [facility] [address] [facility] [id number] [address] Jun, [facility] [address] [facility] [id number], [place] [address]- 6291 Jun, [facility] [address] [facility] [id number], [place] [address]- 1303 Jun, [facility] [address] [facility] [id number], [place] [address]- 3621 May, [facility] [address] [facility] [id number], [place] [address]- 5914 May, IMMUNIZATIONS No Known Immunizations SOCIAL HISTORY Never Assessed REASON FOR VISIT PALS kesha PLAN OF CARE VITAL SIGNS MEDICATIONS Medication Instructions Dosage Frequency Start Date End Date Duration Status Aristada 882 MG/3.2ML Intramuscular once monthly 3.2 ml May, 90 days Active RESULTS No Results PROCEDURES [...]
--- OUTSIDE RECORDS SUMMARY | 2018-09-02 17:51 | XMS REPORT ---
Author Author VASU QUINTERO [facility] Address [address] [address] Care Team Providers Care Hop Separator Name Role Phone QUINTEROPURNIMA YANGARDO Unavailable PROBLEMS Type Condition ICD9-CM Code FOO78-AC Code Onset Dates Condition Status SNOMED Code Problem 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 Active 26218861 Problem Depressive disorder, not elsewhere classified F32.9 Active 63463030 Problem Chronic posttraumatic stress disorder F43.12 Active 242506535 Problem Insomnia G47.00 Active 164112860 Problem Obesity E66.9 Active 776260196 Problem Other chronic pain G89.29 Active 87174783 Problem Fatty liver K76.0 Active 667258572 Problem Abuse, drug or alcohol F19.10 Active 19245876 Problem Panic disorder without agoraphobia F41.0 Active 06010368 Problem Panic disorder F41.0 Active 100881022 Problem Hypothyroid E03.9 Active 31024412 Problem BMI 50.0-59.9, adult Z68.43 Active 468635211 Problem Restless legs syndrome G25.81 Active 740868577 Problem Encounter for therapeutic drug level monitoring Z51.81 Active 626213543 Problem Neuropathy G62.9 Active 351868687 Problem 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 Active 66056550 Problem Tachycardia R00.0 Active 2552431 Problem Murmur R01.1 Active 549607026 Problem Orthostatic hypertension I10 Active 39047270 Problem Shortness of breath R06.02 Active 884562007 Problem Sleep apnea in adult G47.33 Active 15696813 Problem Tunnel vision, unspecified laterality H53.489 Active 573056701 Problem Undifferentiated schizophrenia F20.3 Active 518748252 ALLERGIES No Information ENCOUNTERS Encounter Location Date Diagnosis [facility] [address] [facility] [id number] [place] [address] May, [facility] [address], [place] [address] 0880 May, [facility] [id number] [place] [address] 07753- 1897 Apr, [facility] [id number] [place] [address] 81477- 5890 Apr, [facility] [id number] [place] [address] 32054- 0594 Apr, Undifferentiated schizophrenia F20.3 ; 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 ; 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 and BMI 50.0-59.9, adult Z68.43 [facility] [id number] [place] [address] 76304- 6057 Apr, [facility] [id number] [place] [address] 51732- 2272 Apr, Undifferentiated schizophrenia F20.3 [facility] [id number] [place] [address] 17537- 2978 17 Mar, 2018 Undifferentiated schizophrenia F20.3 [facility] [id number] [place] [address] 98926- 2215 Mar, [facility] [id number] [place] [address] 06073- 6754 14 Mar, 2018 Undifferentiated schizophrenia F20.3 [facility] [id number] [place] [address] 76098- 5498 Jan, [facility] [id number] [place] [address] 66368- 7487 Jan, Undifferentiated schizophrenia F20.3 [facility] [id number] [place] [address] 63306- 6626 Jan, [facility] [address] [place] [address] 27141- 6126 Jan, Undifferentiated schizophrenia F20.3 [facility] [id number] [place] [address] 00666- 3025 Dec, [facility] [address], [place] [address] 2182 Dec, [facility] [id number] [place] [address] 75173- 6654 Dec, [facility] [address], [place] [address] 9966 Dec, Undifferentiated schizophrenia F20.3 ; 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 ; Chronic posttraumatic stress disorder F43.12 and BMI 50.0- 59.9, adult Z68.43 [facility] [id number] [place] [address] 64920- 1824 Dec, [facility] [id number] [place] [address] 16531- 1104 Dec, Undifferentiated schizophrenia F20.3 ; Insomnia G47.00 and Thyroid disorder E07.9 [facility] [address], [place] [address]- 7951 Dec, Undifferentiated schizophrenia F20.3 [facility] [address], [place] [address] 0972 Dec, [facility] [address], [place] [address]- 9592 Dec, [facility] [address], [place] [address]- 4484 14 Dec, 2017 BMI 50.0-59.9, adult Z68.43 ; Undifferentiated schizophrenia F20.3 ; Panic disorder without agoraphobia F41.0 and Chronic posttraumatic stress disorder F43.12 [facility] [address], [place] [address]- 7254 04 Dec, 2017 [facility] [address], [place] [address] 3799 October, [facility] [id number] [place] [address] 46518- 0282 October, Pain in right shoulder M25.511 and Other chronic pain G89.29 [facility] [id number] [place] [address] 71533- 1315 October, Hypothyroid E03.9 [facility] [id number] [place] [address] 49043- 0633 Oct, Undifferentiated schizophrenia F20.3 [facility] [id number] [place] [address] 74316- 8627 Oct, [facility] [id number] [place] [address] 56046- 7325 Oct, [facility] [id number] [place] [address] 46033- 2964 Aug, Undifferentiated schizophrenia F20.3 [facility] [id number] [place] [address] 32760- 3329 Aug, [facility] [id number] [place] [address] 05594- 1006 Aug, Undifferentiated schizophrenia F20.3 ; 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 ; Chronic posttraumatic stress disorder F43.12 and BMI 50.0- 59.9, adult Z68.43 [facility] [id number] [place] [address] 80768- 9421 Aug, [facility] [id number] [place] [address] 28209- 5886 Aug, [facility] [id number] [place] [address] 44062- 6762 Aug, Undifferentiated schizophrenia F20.3 [facility] [id number] [place] [address] 52384- 7250 Aug, Hypothyroid E03.9 [facility] [id number] [place] [address] 08917- 6993 Jul, Undifferentiated schizophrenia F20.3 [facility] [id number] [place] [address] 19922- 7788 17 Jul, 2017 [facility] [id number] [place] [address] 21240- 4051 Jul, Undifferentiated schizophrenia F20.3 ; Chronic posttraumatic stress disorder F43.12 ; 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 and BMI 50.0-59.9, adult Z68.43 [facility] [id number] [place] [address] 10054- 6162 15 Jul, 2017 [facility] [id number] [place] [address] 89558- 3450 08 Jul, 2017 Acute pain of right shoulder M25.511 ; High risk medication use Z79.899 ; Needle stick injury W27.3XXA ; Hypothyroid E03.9 and BMI 50.0-59.9 , adult Z68.43 [facility] [id number] [place] [address] 06736- 9587 Jun, Undifferentiated schizophrenia F20.3 [facility] [id number] [place] [address] 19324- 7422 14 Jun, 2017 Undifferentiated schizophrenia F20.3 ; Panic disorder without agoraphobia F41.0 ; Chronic posttraumatic stress disorder F43.12 and BMI 50.0-59.9, adult Z68.43 [facility] [id number] [place] [address] 09049- 1456 May, [facility] [id number] [place] [address] 51679- 8260 May, [facility] [id number] [place] [address] 94925- 5201 May, Undifferentiated schizophrenia F20.3 [facility] [id number] [place] [address] 48056- 6986 May, [facility] [id number] [place] [address] 89146- 5730 May, [facility] [address] [place] [address]- 9819 15 May, 2017 Hypothyroid E03.9 [facility] [address] 69751- 9750 13 May, 2017 [facility] [id number] [place] [address] 93737- 7295 10 May, 2017 [facility] [address] 61855- 9907 May, Chronic posttraumatic stress disorder F43.12 ; 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 ; Undifferentiated schizophrenia F20.3 ; BMI 40.0-44.9, adult Z68.41 and Obesity E66.9 [facility] [id number] [place] [address] 30947- 4392 07 May, 2017 Shortness of breath R06.02 [facility] [address] 51724- 6729 May, [facility] [id number] [place] [address] 00041- 9974 Apr, Undifferentiated schizophrenia F20.3 [facility] [id number] [place] [address] 09123- 1970 Apr, [facility] [id number] [place] [address] 51334- 0924 Apr, [facility] [id number] [place] [address] 95536- 7877 Mar, Undifferentiated schizophrenia F20.3 ; Panic disorder without agoraphobia F41.0 and Chronic posttraumatic stress disorder F43.12 [facility] [id number] [place] [address] 77526- 3013 Mar, Undifferentiated schizophrenia F20.3 [facility] [id number] [place] [address] 67411- 5326 18 Mar, 2017 [facility] [address] 03414- 2376 Mar, [facility] [address], [place] [address]- 4309 Mar, [facility] [id number] [place] [address] 63878- 5474 Jan, Undifferentiated schizophrenia F20.3 [facility] [id number] [place] [address] 91729- 7741 Jan, [facility] [id number] [place] [address] 27756- 5507 Jan, [facility] [id number] [place] [address] 48745- 7256 Jan, [id number] [address] Dec, Needle stick injury W27.3XXA [facility] [id number] [place] [address] 69699- 3211 Dec, Needle stick injury W27.3XXA [facility] [address] [place] [address] 86665- 6997 Dec, Undifferentiated schizophrenia F20.3 [facility] [id number] [place] [address] 49357- 7792 Dec, [facility] [address] [place] [address] 77606- 2491 Dec, [facility] [address] [place] [address] 82419- 3232 Dec, Undifferentiated schizophrenia F20.3 ; 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 and Chronic posttraumatic stress disorder F43.12 [facility] [id number] [place] [address] 27430- 7437 Dec, [facility] [id number] [place] [address] 70581- 9976 October, [facility] [id number] [place] [address] 41532- 1414 October, Undifferentiated schizophrenia F20.3 [facility] [address], [place] [address]- 2917 October, [facility] [address], [place] [address]- 3346 October, [facility] [address], [place] [address]- 4914 Oct, Undifferentiated schizophrenia F20.3 ; 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 ; Chronic posttraumatic stress disorder F43.12 and Obesity E66.9 [facility] [address], [place] [address]- 3586 Oct, [facility] [id number] [place] [address] 35742- 3879 Oct, [facility] [id number] [place] [address] 77308- 2762 Aug, Undifferentiated schizophrenia F20.3 [facility] [address], [place] [address]- 1982 Aug, [facility] [address] [place] [address] 44413- 8995 Aug, Muscle spasm M62.838 [facility] [address], [place] [address]- 2833 Aug, Undifferentiated schizophrenia F20.3 [facility] [address], [place] [address]- 0286 Aug, Undifferentiated schizophrenia F20.3 ; 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 ; Chronic posttraumatic stress disorder F43.12 ; High risk medication use Z79.899 and 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 [facility] [address], [place] [address]- 8875 Aug, Undifferentiated schizophrenia F20.3 [facility] [address], [place] [address]- 2825 Aug, [facility] [address], [place] [address]- 6350 Aug, Acute non-recurrent maxillary sinusitis J01.00 [facility] [address], [place] [address]- 1626 Aug, [facility] [id number] [place] [address] 82157- 0483 Aug, [facility] [id number] [place] [address] 60612- 1126 Jul, Undifferentiated schizophrenia F20.3 [facility] [id number] [place] [address] 64341- 2812 Jul, Schizophrenia, undifferentiated F20.3 ; 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 ; Post-traumatic stress disorder F43.10 ; Panic disorder F41.0 and Depressive disorder, not elsewhere classified F32.9 [facility] [id number] [place] [address] 78166- 8481 Jul, [facility] [id number] [place] [address] 93859- 5273 Jul, Schizophrenia, undifferentiated F20.3 ; 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 ; Post-traumatic stress disorder F43.10 ; Panic disorder F41.0 and Depressive disorder, not elsewhere classified F32.9 [facility] [address], [place] [address]- 8404 Jul, [facility] [id number] [place] [address] 27711- 3571 Jul, Undifferentiated schizophrenia F20.3 ; 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 ; 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 ; Obesity E66.9 and Chronic posttraumatic stress disorder F43.12 [facility] [address], [place] [address]- 1796 Jun, [facility] [id number] [place] [address] 42903- 4034 Jun, [facility] [id number] [place] [address] 78327- 4758 Jun, Dental caries K02.9 [facility] [id number] [place] [address] 27462- 6549 Jun, Undifferentiated schizophrenia F20.3 [facility] [id number] [place] [address] 73661- 4939 May, [facility] [id number] [place] [address] 98000- 2716 May, Undifferentiated schizophrenia F20.3 ; 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 and Chronic post-traumatic stress disorder (PTSD) F43.12 [facility] [id number] [place] [address] 62969- 3727 May, [facility] [id number] [place] [address] 44059- 8786 May, Undifferentiated schizophrenia F20.3 [facility] [id number] [place] [address] 50823- 9150 May, [facility] [id number] [place] [address] 91755- 4972 07 May, 2016 Dental examination Z01.20 [facility] [id number] [place] [address] 57454- 8868 Apr, Undifferentiated schizophrenia F20.3 ; PTSD (post-traumatic stress disorder) F43.10 and Obesity E66.9 [facility] [address] [place] [address] 17589- 9935 Apr, [facility] [id number] [place] [address] 58755- 9202 15 Mar, 2016 [facility] [id number] [place] [address] 82083- 2227 Mar, [facility] [id number] [place] [address] 25401- 7836 Jan, Shortness of breath R06.02 and Bipolar disorder with psychotic features F31.9 [facility] [address], [place] [address]- 1294 Jan, [facility] [id number] [place] [address] 76220- 5227 Jan, Increased intracranial pressure G93.2 ; Visual disturbance H53.9 and Bipolar II disorder F31.81 [facility] [id number] [place] [address] 88076- 2236 Jan, [facility] [id number] [place] [address] 92422- 2857 Jan, [facility] [id number] [place] [address] 71473- 4897 Jan, [facility] [id number] [place] [address] 77729- 7921 Jan, Acquired hypothyroidism E03.9 ; Depression F32.9 and Insomnia G47.00 [facility] [id number] [place] [address] 35974- 0838 Jan, Exertional dyspnea R06.09 ; Heart palpitations R00.2 ; Hyperlipidemia, unspecified hyperlipidemia type E78.5 ; Hypothyroidism, unspecified type E03.9 and Hypokalemia E87.6 [facility] [address] [place] [address] 89381- 9716 Dec, PTSD (post-traumatic stress disorder) F43.10 ; Depression F32.9 ; Insomnia G47.00 and Bipolar disorder with psychotic features F31.9 [facility] [address], [place] [address]- 3576 Dec, Increased intracranial pressure G93.2 [facility] [address] [place] [address] 32402- 1581 Dec, [facility] [address], [place] [address]- 2698 Dec, Shortness of breath R06.02 [facility] [id number] [place] [address] 56504- 1656 05 Jan, 2016 Visual disturbance H53.9 and Headache, unspecified headache type R51 [facility] [address] 43755- 8027 Dec, Insomnia G47.00 [facility] [address] 32216- 9217 Dec, Murmur R01.1 [facility] [address] 38045- 3056 Dec, Murmur R01.1 ; Tunnel vision, unspecified laterality H53.489 ; Orthostatic hypertension I10 ; Shortness of breath R06.02 and Tachycardia R00.0 [facility] [address] 75659- 4392 Dec, [place] [address] 40350- 6711 Dec, Hypothyroid E03.9 and Bipolar 1 disorder F31.9 [place] [facility] [address] 63954- 0140 Dec, Bipolar 1 disorder F31.9 [place] [facility] [address] 47150- 5469 Dec, [facility] [address] 52341- 3565 October, Acquired hypothyroidism E03.9 ; Depression F32.9 and Insomnia G47.00 [place] [facility] [address] 67215- 3110 October, [facility] [address] 68287- 5470 October, Bipolar 1 disorder F31.9 ; PTSD (post-traumatic stress disorder) F43.10 and 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 [facility] [place] [address] [place] [address]- 2967 Oct, Bipolar 1 disorder F31.9 and Insomnia G47.00 [facility] [id number] [place] [address] 68323- 9441 Oct, [facility] [id number] [place] [address] 37192- 7366 Oct, [facility] [address] 33918- 4348 Aug, Hypothyroid E03.9 [facility] [id number] [place] [address] 72645- 8990 Aug, Encounter for therapeutic drug level monitoring Z51.81 and Other shelter (current) drug therapy Z79.899 [facility] [id number] [place] [address] 89140- 3857 Aug, Encounter for therapeutic drug level monitoring Z51.81 [facility] [address] 53838- 3622 Aug, Acquired hypothyroidism E03.9 ; Leg pain M79.606 and Bipolar 1 disorder F31.9 [facility] [id number] [place] [address] 38746- 5906 Aug, [facility] [id number] [place] [address] 42347- 3135 Aug, [facility] [id number] [place] [address] 83329- 9022 Jul, Thyroid disorder E07.9 [facility] [id number] [place] [address] 75866- 0919 Jul, Rash R21 ; Abnormal LFTs R94.5 ; Acquired hypothyroidism E03.9 ; Sleep apnea in adult G47.33 and Fatty liver K76.0 [facility] [id number] [place] [address] 51181- 4401 Jun, [facility] [address] [place] [address]- 7745 Jun, [facility] [id number] [place] [address] 124183- 4999 Jun, Bipolar II disorder F31.81 and Social phobia, generalized F40.11 [facility] [id number] [place] [address] 22826- 0881 Mar, Bipolar II disorder 296.89 and Social phobia 300.23 [facility] [id number] [place] [address] 411348- 6856 Dec, [facility] [id number] [place] [address] 76464- 3681 Dec, [facility] [id number] [place] [address] 814908- 3005 Dec, Bipolar II disorder in partial or unspecified remission 296.89 and Social phobia, generalized 300.23 [facility] [id number] [place] [address] 30888- 6530 30 Oct, 2014 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 [facility] [id number] [place] [address] 20216- 6178 14 Oct, 2014 [facility] [id number] [place] [address] 57021- 9767 Oct, [facility] [address], [place] [address]- 2952 Aug, [facility] [id number] [place] [address] 22536- 9687 Aug, [facility] [id number] [place] [address] 83538- 2060 Aug, [facility] [id number] [place] [address] 88437436- 4071 Aug, [facility] [address] 1073 Aug, [facility] [address] [place] [address]- 2546 Aug, [facility] [address] [id number] [place] [address]- 9615 Aug, [facility] [place] [facility] [address] [id number] [place] [address]- 6396 Aug, [facility] [place] [facility] [address] [id number] [place] [address]- 4086 Jul, [facility] [place] [facility] [address] [id number] [place] [address]- 4214 Jul, [facility] [place] [facility] [address] [id number] [place] [address]- 3244 Jul, [facility] [place] [facility] [address] [id number] [place] [address]- 0530 Jul, [facility] [place] [facility] [address] [id number] [place] [address]- 5023 Jul, [facility] [address] [id number] [place] [address]- 7210 Jul, [facility] [place] [facility] [address] [id number] [place] [address]- 1168 Jun, [facility] [address] [id number] [place] [address]- 1101 Jun, [facility] [place] [facility] [address] [id number] [place] [address]- 0264 Jun, [facility] [place] [facility] [address] [id number] [place] [address] Jun, [facility] [place] [facility] [address] [id number] [place] [address] Jun, [facility] [place] [facility] [address] [id number] [place] [address] Jun, [facility] [place] [facility] [address] [id number] [place] [id number] Jun, [facility] [place] [facility] [address] [id number] [place] [address] Jun, [facility] [place] [facility] [address] [id number] [place] [address] Jun, [facility] [place] [facility] [address] [id number] [place] [address] Jun, [facility] [place] [facility] [address] [id number] [place] [address] Jun, [facility] [place] [facility] [address] [id number] [place] [address] Jun, [facility] [place] [facility] [address] [id number] [place] [address] Jun, [facility] [place] [facility] [address] [id number] [place] [address] Jun, [facility] [place] [facility] [address] [id number] [place] [address] 139[address] Jun, [facility] [place] [facility] [address] [id number] [place] [address] Jun, [facility] [place] [facility] [address] [id number], [place] [address] May, [facility] [place] [facility] [address] [id number], [place] [address] May, [facility] [place] [facility] [address] [id number], [place] [address] May, [facility] [place] [facility] [address] [id number] [place] [address] May, [facility] [place] [facility] [address] [id number], [place] [address] May, [facility] [place] [facility] [address] [id number] [place] [address] May, [facility] [place] [facility] [address] [id number] [place] [address] Apr, [facility] [place] [facility] [address] [id number] [place] [address] Apr, [facility] [place] [facility] [address] [id number] [place] [address] 88[address] Apr, [facility] [place] [facility] [address] [id number] [place] [address]- [address] Apr, [facility] [place] [facility] [address] [id number] [place] [address] 9581 Apr, [facility] [place] [facility] [address] [id number] [place] [address] 2073 Apr, [facility] [place] [facility] [address] [id number] [place] [address] Mar, [facility] [place] [facility] [address] [id number] [place] [address] 6[address] Mar, [facility] [place] [facility] [address] [id number] [place] [address] 8937 Mar, [facility] [place] [facility] [address] [id number] [place] [address] 37[address] Mar, [facility] [place] [facility] [address] [id number] [place] [address] 279[address] Jan, [facility] [place] [facility] [address] [id number] [place] [address]- [address] Jan, [facility] [place] [facility] [address] [id number] [place] [address] 98[address] Jan, [facility] [place] [facility] [address] [id number] [place] [address] Jan, [facility] [place] [facility] [address] [id number] [place] [address]- 1168 Jan, [facility] [place] [facility] [address] [id number] [place] [address]- 4735 Jan, [facility] [place] [facility] [address] [id number] [place] [address]44 Dec, [facility] [place] [facility] [address] [id number] [place] [address] 67[address] Dec, [facility] [place] [facility] [address] [id number] [place] [address] Dec, [facility] [place] [facility] [address] [id number] [place] [address]37 Dec, [facility] [place] [facility] [address] [id number] [place] [address] 1672 Dec, [facility] [place] [facility] [address] [id number] [place] [address] Dec, [facility] [place] [facility] [address] [id number] [place] [address] October, [facility] [place] [facility] [address] [id number] [place] [address] 1747 October, [facility] [place] [facility] [address] [id number] [place] [address] 3607 October, [facility] [place] [facility] [address] [id number] [place] [address] 2665 October, [facility] [place] [facility] [address] [id number] [place] [address] 4[address] October, [facility] [place] [facility] [address] [id number] [place] [address] 112[address] October, [facility] [place] [facility] [address] [id number] [place] [address] 1874 October, [facility] [place] [facility] [address] [id number] [place] [address]278 October, [facility] [place] [facility] [address] [id number] [place] [address] 4758 Oct, [facility] [place] [facility] [address] [id number] [place] [address] 5888 Oct, [facility] [place] [facility] [address] [id number] [place] [address] 6749 Oct, [facility] [place] [facility] [address] [id number] [place] [address] Oct, [facility] [place] [facility] [address] [facility] [id number] [place] [address] 0421 Oct, [facility] [place] [facility] [address] [id number] [place] [address]676 Aug, [facility] [place] [facility] [address] [id number] [place] [address] 3635 Aug, [facility] [place] [facility] [address] [id number] [place] [address]3 Aug, [facility] [place] [facility] [address] [id number] [place] [address] 9393 Aug, [facility] [place] [facility] [address] [id number] [place] [address] 9141 Aug, [facility] [place] [facility] [address] [id number] [place] [address] 5069 Aug, [facility] [place] [facility] [address] [id number] [place] [address] 1147 Jul, [facility] [place] [facility] [address] [id number], [place] [address] Jul, [facility] [place] [facility] [address] [id number], [place] [address] Jul, [facility] [place] [facility] [address] [id number] [place] [address] 9976 Jul, [facility] [place] [facility] [address] [id number] [place] [address]- 6804 Jul, [facility] [place] [facility] [address] [id number] [place] [address]- 0[address] Jul, [facility] [place] [facility] [address] [id number] [place] [address] 134[address] Jun, [facility] [address] [id number] [place] [address] Jun, [facility] [place] [facility] [address] [id number] [place] [address] Jun, [facility] [place] [facility] [address] [id number] [place] [address]- 2316 Jun, [facility] [place] [facility] [address] [id number] [place] [address] 6861 Jun, [facility] [place] [facility] [address] [id number] [place] [address] Jun, [facility] [place] [facility] [address] [id number] [place] [address] 1559 May, [facility] [place] [facility] [address] [id number] [place] [address]- 7423 May, [facility] [place] [facility] [address] [id number] [place] [address]- 8551 Apr, [facility] [place] [facility] [address] [id number] [place] [address] 1527 Apr, [facility] [place] [facility] [address] [id number] [place] [address] 9428 Apr, [facility] [place] [facility] [address] [id number] [place] [address]- 4927 Apr, [facility] [place] [facility] [address] [id number] [place] [address]- 1067 Apr, [facility] [place] [facility] [address] [id number] [place] [address]- 9374 Apr, [facility] [place] [facility] [address] [id number] [place] [address]- 2800 Apr, [facility] [place] [facility] [address] [id number] [place] [address]- 6434 Apr, [facility] [place] [facility] [address] [id number] [place] [address]- 1510 18 Apr, 2013 [facility] [place] [facility] [address] [id number] [place] [address]- 2488 04 Apr, 2013 [facility] [place] [facility] [address] [id number] [place] [address]- 0479 Apr, [facility] [place] [facility] [address] [id number] [place] [address]- 8345 23 Mar, 2013 [facility] [place] [facility] [address] [id number] [place] [address]- 5374 20 Mar, 2013 [facility] [place] [facility] [address] [id number] [place] [address]- 4351 20 Mar, 2013 [facility] [place] [facility] [address] [id number] [place] [address]- 6215 14 Mar, 2013 [facility] [place] [facility] [address] [id number] [place] [address]- 9584 12 Mar, 2013 [facility] [place] [facility] [address] [id number] [place] [address]- 1544 06 Mar, 2013 [facility] [place] [facility] [address] [id number] [place] [address]- 0132 06 Mar, 2013 [facility] [place] [facility] [address] [id number] [place] [address]- 2779 Jan, [facility] [place] [facility] [address] [id number], [place] [address]- [address] 14 Jan, 2013 [facility] [place] [facility] [address] [id number] [place] [address]- 9487 Jan, [facility] [place] [facility] [address] [id number], [place] [address]- 6490 Jan, [facility] [place] [facility] [address] [id number] [place] [address]- 0949 08 Jan, 2013 [facility] [place] [facility] [address] [id number] [place] [address]- 7649 Jan, [facility] [address] [id number] [place] [address]- 9778 Jan, [facility] [address] [id number] [place] [address]- 8137 Dec, [facility] [address] [id number] [place] [address]- 2360 Dec, [facility] [address] [id number] [place] [address]- 9098 Dec, [facility] [address] [id number] [place] [address]- 8510 Dec, [facility] [address] [id number] [place] [address]- 6279 Dec, [facility] [address] [id number] [place] [address]- 2811 Dec, [facility] [address] [id number] [place] [address]- 0932 October, [facility] [address] [id number] [place] [address]- 2426 October, [facility] [address] [id number] [place] [address]- 3024 October, [facility] [address] [id number] [place] [address]- 2104 October, [facility] [address] [id number] [place] [address]- 8027 Oct, [facility] [place] [facility] [address] [id number] [place] [address]- 6197 Oct, [facility] [place] [facility] [address] [id number] [place] [address]- 4259 Aug, [facility] [place] [facility] [address] [id number] [place] [address]- 8247 Aug, [facility] [address] [id number] [place] [address]- 2545 Aug, [facility] [place] [facility] [address] [id number] [place] [address] 2546 20 Aug, 2012 [facility] [place] [facility] [address] [id number] [place] [address] 2543 18 Aug, 2012 [facility] [place] [facility] [address] [id number] [place] [address] 2545 Aug, [facility] [place] [facility] [address] [id number] [place] [address] 2548 Aug, [facility] [place] [facility] [address] [id number] [place] [address]- 6486 Aug, [facility] [place] [facility] [address] [id number] [place] [address]- 2756 Aug, [facility] [place] [facility] [address] [id number] [place] [address]- 0076 Aug, [facility] [place] [facility] [address] [id number] [place] [address]- 2907 Aug, [facility] [place] [facility] [address] [id number] [place] [address]- 2857 Aug, [facility] [place] [facility] [address] [id number] [place] [address]- 2549 Aug, [facility] [place] [facility] [address] [id number] [place] [address]- 2548 Aug, [facility] [place] [facility] [address] [id number] [place] [address] 2548 Jul, [facility] [place] [facility] [address] [id number] [place] [address] 2545 Jul, [facility] [place] [facility] [address] [id number] [place] [address]- 2548 Jul, [facility] [place] [facility] [address] [facility] [id number], [place] [address]- 26[address] Jul, [facility] [address] [id number], [place] [address] Jun, [facility] [address] [id number], [place] [address]- 2590 Jun, [facility] [address] [id number], [place] [address]- 0299 Jun, [facility] [address] [id number], [place] [address]- 0972 Jun, [facility] [address] [id number], [place] [address]- 6288 May, [facility] [address] [id number], [place] [address]- 1078 May, IMMUNIZATIONS No Known Immunizations SOCIAL HISTORY Never Assessed REASON FOR VISIT PLAN OF CARE VITAL SIGNS MEDICATIONS Unknown [...]
--- OUTSIDE RECORDS SUMMARY | 2018-09-02 17:52 | XMS REPORT ---
Author Author AMARI HOWARD [facility] Address [address] [place] [address] Care Team Providers Care Cyber Operator Name Role Phone AMARI HOWARD Unavailable PROBLEMS Type Condition ICD9-CM Code CAG86-RN Code Onset Dates Condition Status SNOMED Code Problem 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 Active 01367492 Problem Depressive disorder, not elsewhere classified F32.9 Active 63463580 Problem Chronic posttraumatic stress disorder F43.12 Active 627302423 Problem Insomnia G47.00 Active 711411421 Problem Obesity E66.9 Active 926468948 Problem Other chronic pain G89.29 Active 30503181 Problem Fatty liver K76.0 Active 247663495 Problem Abuse, drug or alcohol F19.10 Active 41823747 Problem Panic disorder without agoraphobia F41.0 Active 74238273 Problem Panic disorder F41.0 Active 250842347 Problem Hypothyroid E03.9 Active 37254119 Problem BMI 50.0-59.9, adult Z68.43 Active 041582123 Problem Restless legs syndrome G25.81 Active 772183744 Problem Encounter for therapeutic drug level monitoring Z51.81 Active 292901504 Problem Neuropathy G62.9 Active 574485210 Problem 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 Active 72430473 Problem Tachycardia R00.0 Active 6550976 Problem Murmur R01.1 Active 580829731 Problem Orthostatic hypertension I10 Active 28485545 Problem Shortness of breath R06.02 Active 380108936 Problem Sleep apnea in adult G47.33 Active 08703450 Problem Tunnel vision, unspecified laterality H53.489 Active 121847399 Problem Undifferentiated schizophrenia F20.3 Active 383267850 ALLERGIES No Information ENCOUNTERS Encounter Location Date Diagnosis [facility], [place] [address] [facility] [id number], [place] [address] May, [facility], [place] [id number] [address] 4198 Apr, [facility], [place] [id number] [place] [address], [place] [address] 8385 Apr, [facility], [place] [address] [facility] [id number] [place] [address] Apr, Undifferentiated schizophrenia F20.3 [facility], [place] [id number] [place] [address], [place] [address]- 5876 Apr, [facility], [place] [address] [facility] [id number] [place] [address] 2871 Apr, Undifferentiated schizophrenia F20.3 [facility], [place] [id number] [place] [address], [place] [address]- 8227 17 Mar, 2018 Undifferentiated schizophrenia F20.3 [facility], [place] [id number] [place] [address] 4288 17 Mar, 2018 [facility], [place] [id number] [address]26 14 Mar, 2018 Undifferentiated schizophrenia F20.3 [facility], [place] [id number] [place] [address] 9384 Jan, [facility], [place] [id number] [place] [address] 7772 Jan, Undifferentiated schizophrenia F20.3 [facility], [place] [id number] [address] 8316 Jan, [facility], [place] [id number] [address] 7787 Jan, Undifferentiated schizophrenia F20.3 [facility], [place] [id number] [address] Dec, [facility], [place] [id number], [place] [address] 9479 Dec, [facility], [place] [address], [place] [address] 3682 Dec, [facility], [place] [address], [place] [address] 5372 Dec, Undifferentiated schizophrenia F20.3 ; 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 ; Chronic posttraumatic stress disorder F43.12 and BMI 50.0- 59.9, adult Z68.43 [facility], [place] [address], [place] [address] 6006 Dec, [facility], [place] [id number] [place] [address] 83657- 2845 Dec, Undifferentiated schizophrenia F20.3 ; Insomnia G47.00 and Thyroid disorder E07.9 [facility], [place] [id number] [place] [address] 50125- 4530 Dec, Undifferentiated schizophrenia F20.3 [facility], [place] [address], [place] [address]- 0710 Dec, [facility], [place] [id number] [place] [address] 93510- 0738 Dec, [facility], [place] [id number] [place] [address] 98845- 8095 Dec, BMI 50.0-59.9, adult Z68.43 ; Undifferentiated schizophrenia F20.3 ; Panic disorder without agoraphobia F41.0 and Chronic posttraumatic stress disorder F43.12 [facility], [place] [address], [place] [address]- 9727 Dec, [facility], [place] [address], [place] [address] 2515 October, [facility], [place] [id number] [place] [address] 21309- 6283 October, Pain in right shoulder M25.511 and Other chronic pain G89.29 [facility], [place] [address], [place] [address] 1043 October, Hypothyroid E03.9 [facility], [place] [id number], [place] [address] 5682 Oct, Undifferentiated schizophrenia F20.3 [facility], [place] [address], [place] [address]- 8796 Oct, [facility], [place] [address], [place] [address]- 8146 Oct, [facility], [place] [id number] [place] [address] 09165- 1206 Aug, Undifferentiated schizophrenia F20.3 [facility], [place] [address], [place] [address]- 2455 Aug, [facility], [place] [id number] [place] [address] 42417- 4114 Aug, Undifferentiated schizophrenia F20.3 ; 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 ; Chronic posttraumatic stress disorder F43.12 and BMI 50.0- 59.9, adult Z68.43 [facility], [place] [address], [place] [address]- 3306 Aug, [facility], [place] [address], [place] [address]- 2331 Aug, [facility], [place] [address], [place] [address]- 2595 Aug, Undifferentiated schizophrenia F20.3 [facility], [place] [address], [place] [address]- 1070 Aug, Hypothyroid E03.9 [facility], [place] [address], [place] [address]- 9068 Jul, Undifferentiated schizophrenia F20.3 [facility], [place] [address], [place] [address]- 3366 Jul, [facility], [place] [address], [place] [address]- 3608 Jul, Undifferentiated schizophrenia F20.3 ; Chronic posttraumatic stress disorder F43.12 ; 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 and BMI 50.0-59.9, adult Z68.43 [facility], [place] [id number] [place] [address] 57475- 6678 15 Jul, 2017 [facility], [place] [id number] [place] [address] 25560- 0355 08 Jul, 2017 Acute pain of right shoulder M25.511 ; High risk medication use Z79.899 ; Needle stick injury W27.3XXA ; Hypothyroid E03.9 and BMI 50.0-59.9 , adult Z68.43 [facility], [place] [id number] [place] [address] 33729- 4654 Jun, Undifferentiated schizophrenia F20.3 [facility], [place] [id number] [place] [address] 94890- 8128 14 Jun, 2017 Undifferentiated schizophrenia F20.3 ; Panic disorder without agoraphobia F41.0 ; Chronic posttraumatic stress disorder F43.12 and BMI 50.0-59.9, adult Z68.43 [facility], [place] [id number] [place] [address] 66316- 7959 May, [facility], [place] [address] [address]- 7267 May, [facility], [place] [id number] [place] [address] 02981- 6257 May, Undifferentiated schizophrenia F20.3 [facility], [place] [id number] [place] [address] 59333- 2452 May, [facility], [place] [id number] [place] [address] 50390- 3628 May, [facility], [place] [id number] [place] [address] 63562- 7044 May, Hypothyroid E03.9 [facility], [place] [id number] [place] [address] 53186- 9462 May, [facility], [place] [address] [place] [address]- 4550 May, [facility], [place] [id number] [place] [address] 10326- 8435 May, Chronic posttraumatic stress disorder F43.12 ; 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 ; Undifferentiated schizophrenia F20.3 ; BMI 40.0-44.9, adult Z68.41 and Obesity E66.9 [facility], [place] [id number] [place] [address] 09117- 4629 May, Shortness of breath R06.02 [facility], [place] [id number] [place] [address] 37202- 6530 May, [facility], [place] [id number] [place] [address] 62284- 7667 Apr, Undifferentiated schizophrenia F20.3 [facility], [place] [id number] [place] [address] 50569- 0163 Apr, [facility], [place] [id number] [place] [address] 38640- 2292 Apr, [facility], [place] [id number] [place] [address] 23903- 3440 Mar, Undifferentiated schizophrenia F20.3 ; Panic disorder without agoraphobia F41.0 and Chronic posttraumatic stress disorder F43.12 [facility], [place] [id number] [place] [address] 03261- 4522 Mar, Undifferentiated schizophrenia F20.3 [facility], [place] [id number] [place] [address] 20674- 1016 18 Mar, 2017 [facility], [place] [id number] [place] [address] 28637- 4166 08 Mar, 2017 [facility], [place] [id number] [place] [address] 27209- 5872 07 Mar, 2017 [facility], [place] [id number] [place] [address] 37467- 7395 Jan, Undifferentiated schizophrenia F20.3 [facility], [place] [address] [facility] [id number], [place] [address]- 0558 Jan, [facility], [place] [id number] [place] [address] 35540- 7395 Jan, [facility], [place] [id number], [place] [address]- 2142 Jan, [address] [id number] [id number] Dec, Needle stick injury W27.3XXA [facility], [place] [id number] [place] [address] 01764- 7038 Dec, Needle stick injury W27.3XXA [facility], [place] [id number] [place] [address] 71122- 5632 Dec, Undifferentiated schizophrenia F20.3 [facility], [place] [id number] [place] [address] 57578- 7583 Dec, [facility], [place] [id number] [place] [address] 57025- 4674 Dec, [facility], [place] [id number] [place] [address] 32066- 8272 Dec, Undifferentiated schizophrenia F20.3 ; 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 and Chronic posttraumatic stress disorder F43.12 [facility], [place] [address], [place] [address]- 2358 Dec, [facility], [place] [address], [place] [address]- 9923 October, [facility], [place] [id number] [place] [address] 76822- 4748 October, Undifferentiated schizophrenia F20.3 [facility], [place] [address], [place] [address]- 8995 October, [facility], [place] [id number] [place] [address] 29972- 1902 October, [facility], [place] [address], [place] [address]- 9317 Oct, Undifferentiated schizophrenia F20.3 ; 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 ; Chronic posttraumatic stress disorder F43.12 and Obesity E66.9 [facility], [place] [id number] [place] [address] 26061- 2089 Oct, [facility], [place] [id number] [place] [address] 34637- 2410 Oct, [facility], [place] [id number] [place] [address] 92397- 1903 Aug, Undifferentiated schizophrenia F20.3 [facility], [place] [id number] [place] [address] 78731- 4917 Aug, [facility], [place] [id number] [place] [address] 10351- 0489 Aug, Muscle spasm M62.838 [facility], [place] [id number] [place] [address] 63030- 6412 Aug, Undifferentiated schizophrenia F20.3 [facility], [place] [id number] [place] [address] 88991- 1772 Aug, Undifferentiated schizophrenia F20.3 ; 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 ; Chronic posttraumatic stress disorder F43.12 ; High risk medication use Z79.899 and 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 [facility], [place] [address], [place] [address]- 1549 Aug, Undifferentiated schizophrenia F20.3 [facility], [place] [id number] [place] [address] 11721- 2637 Aug, [facility], [place] [id number] [place] [address] 04918- 3208 14 Aug, 2016 Acute non-recurrent maxillary sinusitis J01.00 [facility], [place] [id number] [place] [address] 32495- 7014 10 Aug, 2016 [facility], [place] [address], [place] [address]- 0539 Aug, [facility], [place] [address] [place] [address] 36871- 0982 Jul, Undifferentiated schizophrenia F20.3 [facility], [place] [address], [place] [address]- 0453 Jul, Schizophrenia, undifferentiated F20.3 ; 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 ; Post-traumatic stress disorder F43.10 ; Panic disorder F41.0 and Depressive disorder, not elsewhere classified F32.9 [facility], [place] [address] [place] [address] 14375- 4203 Jul, [facility], [place] [address], [place] [address]- 2027 Jul, Schizophrenia, undifferentiated F20.3 ; 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 ; Post-traumatic stress disorder F43.10 ; Panic disorder F41.0 and Depressive disorder, not elsewhere classified F32.9 [facility], [place] [address], [place] [address]- 0206 Jul, [facility], [place] [address] [place] [address] 76125- 5668 Jul, Undifferentiated schizophrenia F20.3 ; 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 ; 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 ; Obesity E66.9 and Chronic posttraumatic stress disorder F43.12 [facility], [place] [address], [place] [address]- 3469 Jun, [facility], [place] [address], [place] [address]- 0627 Jun, [facility], [place] [id number] [place] [address] 73048- 2586 Jun, Dental caries K02.9 [facility], [place] [address], [place] [address]- 7810 Jun, Undifferentiated schizophrenia F20.3 [facility], [place] [id number], [place] [address]- 9207 May, [facility], [place] [id number] [place] [address] 03319- 6824 May, Undifferentiated schizophrenia F20.3 ; 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 and Chronic post-traumatic stress disorder (PTSD) F43.12 [facility], [place] [id number] [place] [address] 34335- 4155 May, [facility], [place] [id number] [place] [address] 14257- 5487 May, Undifferentiated schizophrenia F20.3 [facility], [place] [id number] [place] [address] 32614- 1395 May, [facility], [place] [id number] [place] [address] 19758- 5257 May, Dental examination Z01.20 [facility] [place] [id number] [place] [address] 33956- 2194 Apr, Undifferentiated schizophrenia F20.3 ; PTSD (post-traumatic stress disorder) F43.10 and Obesity E66.9 [facility] [place] [id number] [place] [address] 43162- 6993 Apr, [facility], [place] [id number] [place] [address] 48920- 8821 15 Mar, 2016 [facility] [place] [id number] [place] [address] 42986- 4366 Mar, [facility], [place] [id number] [place] [address] 53086- 3020 Jan, Shortness of breath R06.02 and Bipolar disorder with psychotic features F31.9 [facility], [place] [address] [place] [address] 09084- 5121 Jan, [facility], [place] [id number] [place] [address] 83964- 6686 Jan, Increased intracranial pressure G93.2 ; Visual disturbance H53.9 and Bipolar II disorder F31.81 [place] [id number] [place] [address] 86689- 0184 Jan, [place] [id number] [place] [address] 22425- 4954 Jan, [place] [address] 63444- 5270 Jan, [place] [id number] [place] [address] 97593- 2861 Jan, Acquired hypothyroidism E03.9 ; Depression F32.9 and Insomnia G47.00 [place] [id number] [place] [address] 95773- 9967 Jan, Exertional dyspnea R06.09 ; Heart palpitations R00.2 ; Hyperlipidemia, unspecified hyperlipidemia type E78.5 ; Hypothyroidism, unspecified type E03.9 and Hypokalemia E87.6 [place] [id number] [place] [address] 46035- 7372 Dec, PTSD (post-traumatic stress disorder) F43.10 ; Depression F32.9 ; Insomnia G47.00 and Bipolar disorder with psychotic features F31.9 [place] [id number] [place] [address] 19151- 9934 Dec, Increased intracranial pressure G93.2 [place] [id number] [place] [address] 49242- 3910 Dec, [place] [id number] [place] [address] 18229- 5647 Dec, Shortness of breath R06.02 [place] [id number] [place] [address] 61428- 6807 Dec, Visual disturbance H53.9 and Headache, unspecified headache type R51 [place] [id number] [place] [address] 28370- 5932 Dec, Insomnia G47.00 [facility] [place] [id number] [place] [address] 70144- 5145 Dec, Murmur R01.1 [place] [id number] [place] [address] 10414- 9026 Dec, Murmur R01.1 ; Tunnel vision, unspecified laterality H53.489 ; Orthostatic hypertension I10 ; Shortness of breath R06.02 and Tachycardia R00.0 [place] [id number] [place] [address] 51978- 9202 Dec, [place] [address] 6[address]- 6475 Dec, Hypothyroid E03.9 and Bipolar 1 disorder F31.9 [place] [id number] [place] [address] 02731- 2455 Dec, Bipolar 1 disorder F31.9 [place] [id number] [place] [address] 23367- 3532 Dec, [address] [address]- [address] October, Acquired hypothyroidism E03.9 ; Depression F32.9 and Insomnia G47.00 [place] [id number] [place] [address] 23979- 6046 October, [place] [id number] [place] [address] 66591- 5613 October, Bipolar 1 disorder F31.9 ; PTSD (post-traumatic stress disorder) F43.10 and 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 [place] [id number] [place] [address] 55653- 9938 Oct, Bipolar 1 disorder F31.9 and Insomnia G47.00 [place] [id number] [place] [address] 52357- 4509 Oct, [place] [address] [id number] [place] [address] 54736- 2575 Oct, [facility], [place] [id number] [place] [address] 23275- 4071 Aug, Hypothyroid E03.9 [facility] [place] [id number] [place] [address] 37760- 5286 Aug, Encounter for therapeutic drug level monitoring Z51.81 and Other fdc (current) drug therapy Z79.899 [facility] [place] [id number] [place] [address] 29487- 9755 Aug, Encounter for therapeutic drug level monitoring Z51.81 [place] [address] 69106- 7328 Aug, Acquired hypothyroidism E03.9 ; Leg pain M79.606 and Bipolar 1 disorder F31.9 [place] [address] 80341- 5423 Aug, [facility] [place] [id number] [place] [address] 16526- 3160 Aug, [place] [address] 89041- 9517 Jul, Thyroid disorder E07.9 [place] [id number] [place] [address] 02178- 2625 Jul, Rash R21 ; Abnormal LFTs R94.5 ; Acquired hypothyroidism E03.9 ; Sleep apnea in adult G47.33 and Fatty liver K76.0 [facility] [place] [id number] [place] [address] 88006- 2875 Jun, [place] [address] 52039- 8166 Jun, [facility], [place] [id number] [place] [address] 40917- 0510 Jun, Bipolar II disorder F31.81 and Social phobia, generalized F40.11 [place] [id number] [address] Mar, Bipolar II disorder 296.89 and Social phobia 300.23 [facility] [place] [id number] [place] [address] 54661- 0792 Dec, [facility], [place] [id number] [place] [address] 53451- 7753 Dec, [facility] [place] [id number] [place] [address] 75615- 6376 Dec, Bipolar II disorder in partial or unspecified remission 296.89 and Social phobia, generalized 300.23 [facility] [place] [id number] [place] [address]- 2402 Oct, 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 [facility] [place] [id number] [place] [address] 48007- 4249 Oct, [facility] [place] [id number] [place] [address] 80375- 1105 Oct, [facility] [place] [id number] [place] [address]06- 6462 Aug, [facility], [place] [id number] [place] [address] 144503- 2055 Aug, [facility], [place] [id number] [address] 0111 Aug, [facility] [place] [id number] 3033 Aug, [facility] [place] [id number], [place] [address]- 4576 Aug, [facility] [place] [id number] [place] [address] 88970- 6716 Aug, [facility] [place] [id number], [place] [address]- 1766 Aug, [facility] [place] [id number] [place] [address] [place] [address]- 2423 Aug, [facility] [address] [id number] [place] [address]- 5843 Jul, [facility] [place] [facility] [address] [id number] [place] [address]- 8867 Jul, [facility] [place] [facility] [address] [id number] [place] [address]- 4441 Jul, [facility] [place] [facility] [address] [id number] [place] [address]- 2348 Jul, [facility] [place] [facility] [address] [id number] [place] [address]- 4014 Jul, [facility] [place] [facility] [address] [id number] [place] [address]- 9127 Jul, [facility] [address] [id number] [place] [address]- 1120 Jun, [facility] [place] [facility] [address] [id number] [place] [address]- 2801 Jun, [facility] [place] [facility] [address] [id number] [place] [address]- 9114 Jun, [facility] [place] [facility] [address] [id number] [place] [address]- 3200 Jun, [facility] [place] [facility] [address] [id number] [place] [address]- 3702 Jun, [facility] [place] [facility] [address] [id number] [place] [address]- 2127 Jun, [facility] [place] [facility] [address] [id number] [place] [address]- 4825 Jun, [facility] [place] [facility] [address] [id number] [place] [address]- 3915 Jun, [facility] [place] [facility] [address] [id number] [place] [address]- 0440 Jun, [facility] [place] [facility] [address] [id number] [place] 9079 Jun, [facility] [place] [facility] [address] [id number] [place] 4248 Jun, [facility] [place] [facility] [address] [id number] [place] [address]- 2913 Jun, [facility] [place] [facility] [address] [id number] [place] [address]- 1832 Jun, [facility] [place] [facility] [address] [id number] [place] [address]- 7386 Jun, [facility] [place] [facility] [address] [id number] [place] [address]- 4361 Jun, [facility] [place] [facility] [address] [id number] [place] [address]- 5138 Jun, [facility] [place] [facility] [address] [id number] [place] [address]- 9348 May, [facility] [place] [facility] [address] [id number] [place] [address]- 5918 May, [facility] [place] [facility] [address] [id number] [place] [address]- 6780 May, [facility] [place] [facility] [address] [id number] [place] [address]- 3251 May, [facility] [place] [facility] [address] [id number] [place] [address]- 8801 May, [facility] [place] [facility] [address] [id number] [place] [address]- 1474 May, [facility] [place] [facility] [address] [id number] [place] [address]- 0928 Apr, [facility] [place] [facility] [address] [id number] [place] [address]- 3182 Apr, [facility] [place] [facility] [address] [id number] [place] [address]- 2534 Apr, [facility] [place] [facility] [address] [id number] [place] 9488 Apr, [facility] [place] [facility] [address] [id number] [place] [address]- 3518 Apr, [facility] [place] [facility] [address] [id number] [place] 6616 Apr, [facility] [place] [facility] [address] [id number] [place] [address]- 3457 Mar, [facility] [place] [facility] [address] [id number] [place] [address]- 1519 Mar, [facility] [place] [facility] [address] [id number] [place] [address]- 1104 Mar, [facility] [place] [facility] [address] [id number] [place] [address]- 7024 Mar, [facility] [place] [facility] [address] [id number] [place] [address]- 2837 Jan, [facility] [place] [facility] [address] [id number] [place] [address]- 8198 Jan, [facility] [place] [facility] [address] [id number] [place] [address]- 7829 Jan, [facility] [place] [facility] [address] [id number] [place] [address]- 0900 Jan, [facility] [place] [facility] [address] [id number] [place] [address]- 0267 Jan, [facility] [place] [facility] [address] [id number] [place] [address]- 0626 Jan, [facility] [place] [facility] [address] [id number] [place] [address]- 5241 Dec, [facility] [place] [facility] [address] [id number] [place] 8663 Dec, [facility] [place] [facility] [address] [id number] [place] [address]- 0301 Dec, [facility] [address] [id number] [place] [address]- 6200 Dec, [facility] [address] [id number] [place] [address]- 4940 Dec, [facility] [address] [id number] [place] [address]- 0188 Dec, [facility] [place] [facility] [address] [id number] [place] [address]- 0069 October, [facility] [address] [id number] [place] [address]- 8384 October, [facility] [address] [id number] [place] [address]- 2103 October, [facility] [address] [id number] [place] [address]- 6188 October, [facility] [address] [id number] [place] [address]- 3720 October, [facility] [address] [id number] [place] [address]- 2899 October, [facility] [address] [id number] [place] [address]- 2084 October, [facility] [place] [facility] [address] [id number] [place] [address]- 2241 October, [facility] [place] [facility] [address] [id number] [place] [address]- 3457 Oct, [facility] [place] [facility] [address] [id number] [place] [address]- 1485 Oct, [facility] [place] [facility] [address] [id number] [place] [address]- 4973 Oct, [facility] [place] [facility] [address] [id number] [place] [address]- 4043 Oct, [facility] [place] [facility] [address] [id number] [place] [address]- 5268 Oct, [facility] [place] [facility] [address] [id number] [place] [address]- 1671 Aug, [facility] [place] [facility] [address] [id number] [place] 3519 Aug, [facility] [place] [facility] [address] [id number] [place] [address]- 8196 Aug, [facility] [place] [facility] [address] [id number] [place] [address]- 0444 Aug, [facility] [place] [facility] [address] [id number] [place] [address]- 8282 Aug, [facility] [place] [facility] [address] [id number] [place] [address]- 4189 Aug, [facility] [place] [facility] [address] [id number] [place] [address]- 2333 Jul, [facility] [place] [facility] [address] [id number] [place] [address]- 4614 Jul, [facility] [place] [facility] [address] [id number] [place] [address]- 1115 Jul, [facility] [place] [facility] [address] [id number] [place] [address]- 7007 Jul, [facility] [place] [facility] [address] [id number], [place] [address]- 4369 Jul, [facility] [place] [facility] [address] [id number] [place] [address]- 0394 Jul, [facility] [place] [facility] [address] [id number] [place] [address]- 0701 Jun, [facility] [place] [facility] [address] [id number] [place] [address]- 7655 Jun, [facility] [place] [facility] [address] [id number] [place] [address]- 9711 Jun, [facility] [place] [facility] [address] [id number] [place] [address]- 0703 Jun, [facility] [place] [facility] [address] [id number] [place] [address]- 5250 Jun, [facility] [place] [facility] [address] [id number] [place] [address]- 5090 Jun, [facility] [place] [facility] [address] [id number] [place] [address]- 4903 May, [facility] [place] [facility] [address] [id number] [place] [address]- 9457 May, [facility] [place] [facility] [address] [id number] [place] [address]- 9306 Apr, [facility] [place] [facility] [address] [id number] [place] [address]- 2209 24 Apr, 2013 [facility] [place] [facility] [address] [id number] [place] [address]- 2445 Apr, [facility] [place] [facility] [address] [id number] [place] [address]- 7817 Apr, [facility] [place] [facility] [address] [facility] [id number] [place] [address]- 7193 Apr, [facility] [place] [facility] [address] [id number] [place] [address]- 5310 Apr, [facility] [place] [facility] [address] [id number], [place] [address]- 9189 Apr, [facility] [place] [facility] [address] [id number] [place] [address]- 7433 Apr, [facility] [place] [facility] [address] [facility] [id number], [place] [address]- 9473 Apr, [facility] [place] [facility] [address] [facility] [id number], [place] [address]- 0736 Apr, [facility] [place] [facility] [address] [id number] [place] [address]- 4960 Apr, [facility] [place] [facility] [address] [id number] [place] [address]- 9590 23 Mar, 2012 [facility] [place] [facility] [address] [id number] [place] [address]- 5139 20 Mar, 2012 [facility] [place] [facility] [address] [id number] [place] [address]- 0805 20 Mar, 2012 [facility] [place] [facility] [address] [id number] [place] [address]- 1903 14 Mar, 2013 [facility] [place] [facility] [address] [id number] [place] [address]- 0195 12 Mar, 2013 [facility] [place] [facility] [address] [id number] [place] [address]- 9123 Mar, [facility] [place] [facility] [address] [id number] [place] [address]- 6000 Mar, [facility] [place] [facility] [address] [id number] [place] [address]- 1162 Jan, [facility] [place] [facility] [address] [id number] [place] [address]- 7344 Jan, [facility] [place] [facility] [address] [id number] [place] [address]- 6916 Jan, [facility] [place] [facility] [address] [id number] [place] [address]- 2103 Jan, [facility] [place] [facility] [address] [id number] [place] [address]- 4579 Jan, [facility] [place] [facility] [address] [id number] [place] [address]- 9379 Jan, [facility] [place] [facility] [address] [id number] [place] [address]- 8765 Jan, [facility] [place] [facility] [address] [id number] [place] [address]- 6964 Dec, [facility] [address] [id number] [place] [address]- 6372 Dec, [facility] [address] [id number] [place] [address]- 3598 Dec, [facility] [address] [id number] [place] [address]- 8009 Dec, [facility] [place] [facility] [address] [id number] [place] [address]- 2444 Dec, [facility] [address] [id number] [place] [address]- 6636 Dec, [facility] [address] [id number] [place] [address]- 6947 October, [facility] [address] [id number] [place] [address]- 0831 October, [facility] [address] [id number] [place] [address]- 3368 October, [facility] [address] [id number] [place] [address]- 1280 October, [facility] [address] [id number] [place] [address]- 2897 Oct, [facility] [address] [id number] [place] [address]- 7232 Oct, [facility] [place] [facility] [address] [id number] [place] [address]- 4976 27 Aug, 2012 [facility] [place] [facility] [address] [id number] [place] [address]- 6877 Aug, [facility] [place] [facility] [address] [id number] [place] [address]- 6855 Aug, [facility] [place] [facility] [address] [id number] [place] [address]- 0847 Aug, [facility] [place] [facility] [address] [id number] [place] [address]- 7059 Aug, [facility] [address] [id number] [place] [address]- 5188 Aug, [facility] [place] [facility] [address] [id number] [place] [address] 2546 Aug, [facility] [place] [facility] [address] [id number] [place] [address]- 6736 Aug, [facility] [place] [facility] [address] [id number] [place] [address]- 254 Aug, [facility] [place] [facility] [address] [id number] [place] [address]- 8176 Aug, [facility] [place] [facility] [address] [id number] [place] [address]- 6981 Aug, [facility] [place] [facility] [address] [id number] [place] [address] 2548 Aug, [facility] [place] [facility] [address] [id number] [place] [address]- 2343 Aug, [facility] [place] [facility] [address] [id number] [place] [address]- 1880 Aug, [facility] [place] [facility] [address] [id number] [place] [address]- 3574 Jul, [facility] [place] [facility] [address] [id number] [place] [address] 2543 Jul, [facility] [place] [facility] [address] [id number] [place] [address] 2542 Jul, [facility] [place] [facility] [address] [id number] [place] [address] 2542 Jul, [facility] [place] [facility] [address] [id number] [place] [address]- 2540 Jun, [facility] [place] [facility] [address] [id number] [place] [address]- 1002 Jun, [facility] [place] [address] [facility] [id number] [place] [address]- 3741 Jun, [facility] [place] [address] [facility] [id number], [place] [address]- 2776 Jun, [facility] [place] [address] [facility] [id number] [place] [address]- 1682 May, [facility] [place] [address] [facility] [id number], [place] [address]- 2890 May, IMMUNIZATIONS No Known Immunizations SOCIAL HISTORY Never Assessed REASON FOR VISIT Repository Medication PLAN OF CARE VITAL SIGNS MEDICATIONS Medication Instructions Dosage Frequency Start Date End Date Duration Status Trazodone HCl 100 mg Orally Once a day 2 tablet at bedtime 24h 30 days Active RESULTS No Results PROCEDURES No [...]
--- OUTSIDE RECORDS SUMMARY | 2018-09-02 17:52 | XMS REPORT ---
Author Author DIGNA GUERRERO [facility] Address [address] [place] [address] Care Team Providers Care Plant Director Name Role Phone DIGNA GUERRERO Unavailable PROBLEMS Type Condition ICD9-CM Code QPD17-PA Code Onset Dates Condition Status SNOMED Code Problem 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 Active 85787457 Problem Depressive disorder, not elsewhere classified F32.9 Active 79977358 Problem Chronic posttraumatic stress disorder F43.12 Active 728194639 Problem Insomnia G47.00 Active 741909216 Problem Obesity E66.9 Active 993974952 Problem Other chronic pain G89.29 Active 71498909 Problem Fatty liver K76.0 Active 734878049 Problem Abuse, drug or alcohol F19.10 Active 60677558 Problem Panic disorder without agoraphobia F41.0 Active 02369270 Problem Panic disorder F41.0 Active 021212203 Problem Hypothyroid E03.9 Active 75320028 Problem BMI 50.0-59.9, adult Z68.43 Active 831982886 Problem Restless legs syndrome G25.81 Active 444318368 Problem Encounter for therapeutic drug level monitoring Z51.81 Active 289261078 Problem Neuropathy G62.9 Active 406061524 Problem 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 Active 31877135 Problem Tachycardia R00.0 Active 4152911 Problem Murmur R01.1 Active 078531086 Problem Orthostatic hypertension I10 Active 37677004 Problem Shortness of breath R06.02 Active 905920315 Problem Sleep apnea in adult G47.33 Active 44480220 Problem Tunnel vision, unspecified laterality H53.489 Active 599875075 Problem Undifferentiated schizophrenia F20.3 Active 845568891 ALLERGIES No Information ENCOUNTERS Encounter Location Date Diagnosis [facility] [id number], [place] [address] May, [facility] [id number] [address] 9033 Apr, [facility] [id number] [place] [address], [place] [address]- 4231 Apr, [facility] [address] [facility] [id number] [place] [address] 8839 Apr, Undifferentiated schizophrenia F20.3 [facility] [id number] [place] [address], [place] [address]- 1666 Apr, [facility] [address] [facility] [id number] [place] [address]- 2912 Apr, Undifferentiated schizophrenia F20.3 [facility] [id number] [place] [address], [place] [address]- 9801 17 Mar, 2018 Undifferentiated schizophrenia F20.3 [facility] [id number] [place] [address]- 0047 17 Mar, 2018 [facility] [id number] [place] [address] 1973 14 Mar, 2018 Undifferentiated schizophrenia F20.3 [facility] [id number] [place] [address]- 0628 Jan, [facility] [id number] [place] [address]- 7127 Jan, Undifferentiated schizophrenia F20.3 [facility] [id number] [place] [address]- 1206 Jan, [facility] [id number], [place] [address]- 4461 Jan, Undifferentiated schizophrenia F20.3 [facility] [id number] [place] [address] 7397 Dec, [facility] [id number], [place] [address]- 4762 Dec, [facility] [address], [place] [address] 1573 Dec, [facility] [address], [place] [address]- 8878 Dec, Undifferentiated schizophrenia F20.3 ; 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 ; Chronic posttraumatic stress disorder F43.12 and BMI 50.0- 59.9, adult Z68.43 [facility] [address], [place] [address] 6668 Dec, [facility] [id number] [place] [address] 32564- 2813 Dec, Undifferentiated schizophrenia F20.3 ; Insomnia G47.00 and Thyroid disorder E07.9 [facility] [id number] [place] [address] 20186- 4352 Dec, Undifferentiated schizophrenia F20.3 [facility] [address], [place] [address]- 7973 Dec, [facility] [id number] [place] [address] 04966- 0028 Dec, [facility] [id number] [place] [address] 97029- 4387 Dec, BMI 50.0-59.9, adult Z68.43 ; Undifferentiated schizophrenia F20.3 ; Panic disorder without agoraphobia F41.0 and Chronic posttraumatic stress disorder F43.12 [facility] [address], [place] [address]- 4296 Dec, [facility] [address], [place] [address]- 2389 October, [facility] [id number] [place] [address] 56743- 2104 October, Pain in right shoulder M25.511 and Other chronic pain G89.29 [facility] [address], [place] [address]- 0186 October, Hypothyroid E03.9 [facility] [id number], [place] [address]- 0133 Oct, Undifferentiated schizophrenia F20.3 [facility] [address], [place] [address]- 8696 Oct, [facility] [address], [place] [address]- 6866 Oct, [facility] [id number] [place] [address] 91848- 3556 Aug, Undifferentiated schizophrenia F20.3 [facility] [address], [place] [address]- 1818 Aug, [facility] [id number] [place] [address] 80956- 5736 Aug, Undifferentiated schizophrenia F20.3 ; 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 ; Chronic posttraumatic stress disorder F43.12 and BMI 50.0- 59.9, adult Z68.43 [facility] [address], [place] [address]- 9349 Aug, [facility] [address], [place] [address]- 8158 Aug, [facility] [address], [place] [address]- 1217 Aug, Undifferentiated schizophrenia F20.3 [facility] [address], [place] [address]- 4493 Aug, Hypothyroid E03.9 [facility] [address], [place] [address]- 2257 Jul, Undifferentiated schizophrenia F20.3 [facility] [address], [place] [address]- 9466 Jul, [facility] [address], [place] [address]- 5882 Jul, Undifferentiated schizophrenia F20.3 ; Chronic posttraumatic stress disorder F43.12 ; 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 and BMI 50.0-59.9, adult Z68.43 [facility] [id number] [place] [address] 56663- 8291 15 Jul, 2017 [facility] [id number] [place] [address] 85316- 8617 08 Jul, 2017 Acute pain of right shoulder M25.511 ; High risk medication use Z79.899 ; Needle stick injury W27.3XXA ; Hypothyroid E03.9 and BMI 50.0-59.9 , adult Z68.43 [facility] [id number] [place] [address] 69736- 7982 Jun, Undifferentiated schizophrenia F20.3 [facility] [id number] [place] [address] 54293- 2281 14 Jun, 2017 Undifferentiated schizophrenia F20.3 ; Panic disorder without agoraphobia F41.0 ; Chronic posttraumatic stress disorder F43.12 and BMI 50.0-59.9, adult Z68.43 [facility] [id number] [place] [address] 55966- 2429 May, [facility] [address] [address]- 4941 May, [facility] [id number] [place] [address] 65439- 2960 May, Undifferentiated schizophrenia F20.3 [facility] [id number] [place] [address] 08127- 2397 May, [facility] [id number] [place] [address] 01969- 1271 May, [facility] [id number] [place] [address] 75434- 7437 May, Hypothyroid E03.9 [facility] [id number] [place] [address] 47333- 7346 May, [facility] [address] [place] [address]- 1692 May, [facility] [id number] [place] [address] 70020- 4767 May, Chronic posttraumatic stress disorder F43.12 ; 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 ; Undifferentiated schizophrenia F20.3 ; BMI 40.0-44.9, adult Z68.41 and Obesity E66.9 [facility] [id number] [place] [address] 40733- 4963 May, Shortness of breath R06.02 [facility] [id number] [place] [address] 39614- 6236 May, [facility] [id number] [place] [address] 93218- 4945 Apr, Undifferentiated schizophrenia F20.3 [facility] [id number] [place] [address] 55819- 5420 Apr, [facility] [id number] [place] [address] 01241- 1681 Apr, [facility] [id number] [place] [address] 72374- 0723 Mar, Undifferentiated schizophrenia F20.3 ; Panic disorder without agoraphobia F41.0 and Chronic posttraumatic stress disorder F43.12 [facility] [id number] [place] [address] 50650- 9370 Mar, Undifferentiated schizophrenia F20.3 [facility] [id number] [place] [address] 53689- 8717 18 Mar, 2017 [facility] [id number] [place] [address] 94666- 5054 08 Mar, 2017 [facility] [id number] [place] [address] 05951- 9573 07 Mar, 2017 [facility] [id number] [place] [address] 36645- 2409 Jan, Undifferentiated schizophrenia F20.3 [facility] [address] [facility] [id number] [address]- 7243 Jan, [facility] [id number] [place] [address] 84500- 3713 Jan, [facility] [id number], [place] [address]- 0356 Jan, [address] [id number] [id number] Dec, Needle stick injury W27.3XXA [facility] [id number] [place] [address] 94772- 1849 Dec, Needle stick injury W27.3XXA [facility] [id number] [place] [address] 26222- 1485 Dec, Undifferentiated schizophrenia F20.3 [facility] [id number] [place] [address] 86611- 4053 Dec, [facility] [id number] [place] [address] 19137- 1335 Dec, [facility] [id number] [place] [address] 29910- 5009 Dec, Undifferentiated schizophrenia F20.3 ; 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 and Chronic posttraumatic stress disorder F43.12 [facility] [address], [place] [address]- 7712 Dec, [facility] [address], [place] [address]- 7587 October, [facility] [id number] [place] [address] 54615- 4440 October, Undifferentiated schizophrenia F20.3 [facility] [address], [place] [address]- 4388 October, [facility] [id number] [place] [address] 08614- 3291 October, [facility] [address], [place] [address]- 8968 Oct, Undifferentiated schizophrenia F20.3 ; 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 ; Chronic posttraumatic stress disorder F43.12 and Obesity E66.9 [facility] [id number] [place] [address] 64054- 1131 Oct, [facility] [id number] [place] [address] 78437- 5741 Oct, [facility] [id number] [place] [address] 81431- 3340 Aug, Undifferentiated schizophrenia F20.3 [facility] [id number] [place] [address] 08900- 9189 Aug, [facility] [id number] [place] [address] 39330- 9364 Aug, Muscle spasm M62.838 [facility] [id number] [place] [address] 16140- 5443 Aug, Undifferentiated schizophrenia F20.3 [facility] [id number] [place] [address] 38571- 0816 Aug, Undifferentiated schizophrenia F20.3 ; 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 ; Chronic posttraumatic stress disorder F43.12 ; High risk medication use Z79.899 and 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 [facility] [address], [place] [address]- 6505 Aug, Undifferentiated schizophrenia F20.3 [facility] [id number] [place] [address] 00690- 9432 Aug, [facility] [id number] [place] [address] 35930- 5784 14 Aug, 2016 Acute non-recurrent maxillary sinusitis J01.00 [facility] [id number] [place] [address] 54892- 3273 10 Aug, 2016 [facility] [address], [place] [address]- 7213 Aug, [facility] [id number] [place] [address] 99705- 3181 Jul, Undifferentiated schizophrenia F20.3 [facility] [address], [place] [address]- 2065 Jul, Schizophrenia, undifferentiated F20.3 ; 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 ; Post-traumatic stress disorder F43.10 ; Panic disorder F41.0 and Depressive disorder, not elsewhere classified F32.9 [facility] [id number] [place] [address] 39264- 6912 Jul, [facility] [address], [place] [address]- 8183 Jul, Schizophrenia, undifferentiated F20.3 ; 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 ; Post-traumatic stress disorder F43.10 ; Panic disorder F41.0 and Depressive disorder, not elsewhere classified F32.9 [facility] [address], [place] [address]- 8367 Jul, [facility] [id number] [place] [address] 19717- 4857 Jul, Undifferentiated schizophrenia F20.3 ; 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 ; 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 ; Obesity E66.9 and Chronic posttraumatic stress disorder F43.12 [facility] [address], [place] [address]- 2627 Jun, [facility] [address], [place] [address]- 9643 Jun, [facility] [id number] [place] [address] 62454- 0996 Jun, Dental caries K02.9 [facility] [address], [place] [address]- 1088 Jun, Undifferentiated schizophrenia F20.3 [facility] [id number], [place] [address]- 4002 May, [facility] [id number] [place] [address] 80000- 7599 May, Undifferentiated schizophrenia F20.3 ; 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 and Chronic post-traumatic stress disorder (PTSD) F43.12 [facility] [id number] [place] [address] 30702- 4301 May, [facility] [id number] [place] [address] 62492- 9577 May, Undifferentiated schizophrenia F20.3 [facility] [id number] [place] [address] 92295- 9579 May, [facility] [id number] [place] [address] 35528- 1438 May, Dental examination Z01.20 [facility] [id number] [place] [address] 25462- 3373 Apr, Undifferentiated schizophrenia F20.3 ; PTSD (post-traumatic stress disorder) F43.10 and Obesity E66.9 [facility] [id number] [place] [address] 85744- 2450 Apr, [facility] [id number] [place] [address] 56886- 4139 15 Mar, 2016 [facility] [id number] [place] [address] 95685- 5860 Mar, [facility] [id number] [place] [address] 66076- 6762 Jan, Shortness of breath R06.02 and Bipolar disorder with psychotic features F31.9 [facility] [address] [place] [address] 32801- 6914 Jan, [facility] [id number] [place] [address] 17242- 3560 Jan, Increased intracranial pressure G93.2 ; Visual disturbance H53.9 and Bipolar II disorder F31.81 [place] [id number] [place] [address] 18422- 7900 Jan, [facility] [facility] [id number] [place] [address] 47797- 0204 Jan, [place] [address] 47976- 2740 Jan, [facility] [id number] [place] [address] 33730- 5114 Jan, Acquired hypothyroidism E03.9 ; Depression F32.9 and Insomnia G47.00 [facility] [facility] [id number] [place] [address] 18383- 9593 Jan, Exertional dyspnea R06.09 ; Heart palpitations R00.2 ; Hyperlipidemia, unspecified hyperlipidemia type E78.5 ; Hypothyroidism, unspecified type E03.9 and Hypokalemia E87.6 [facility] [facility] [id number] [place] [address] 48239- 6306 Dec, PTSD (post-traumatic stress disorder) F43.10 ; Depression F32.9 ; Insomnia G47.00 and Bipolar disorder with psychotic features F31.9 [facility] [id number] [place] [address] 48056- 5311 Dec, Increased intracranial pressure G93.2 [facility] [id number] [place] [address] 32695- 7184 Dec, [facility] [facility] [id number] [place] [address] 01657- 6133 Dec, Shortness of breath R06.02 [facility] [id number] [place] [address] 31439- 6599 Dec, Visual disturbance H53.9 and Headache, unspecified headache type R51 [facility] [facility] [id number] [place] [address] 61646- 0967 Dec, Insomnia G47.00 [facility] [id number] [place] [address] 32191- 8098 Dec, Murmur R01.1 [facility] [id number] [place] [address] 08522- 2623 Dec, Murmur R01.1 ; Tunnel vision, unspecified laterality H53.489 ; Orthostatic hypertension I10 ; Shortness of breath R06.02 and Tachycardia R00.0 [place] [id number] [place] [address] 79481- 3161 Dec, [place] [address] 13356- 4939 Dec, Hypothyroid E03.9 and Bipolar 1 disorder F31.9 [id number] [place] [address] 31367- 6390 Dec, Bipolar 1 disorder F31.9 [facility] [id number] [place] [address] 90857- 8651 Dec, [address] 39846- 9976 October, Acquired hypothyroidism E03.9 ; Depression F32.9 and Insomnia G47.00 [id number] [place] [address] 88023- 3523 October, [place] [id number] [place] [address] 47711- 6210 October, Bipolar 1 disorder F31.9 ; PTSD (post-traumatic stress disorder) F43.10 and 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 [address] [id number] [place] [address] 90531- 1970 Oct, Bipolar 1 disorder F31.9 and Insomnia G47.00 [place] [id number] [place] [address] 56003- 6482 Oct, [place] [id number] [place] [address] 08894- 4644 Oct, [facility] [id number] [place] [address] 30942- 2069 Aug, Hypothyroid E03.9 [facility] [id number] [place] [address] 68166- 7608 Aug, Encounter for therapeutic drug level monitoring Z51.81 and Other retirement (current) drug therapy Z79.899 [facility] [id number] [place] [address] 12495- 9596 Aug, Encounter for therapeutic drug level monitoring Z51.81 [place] [address] 30020- 7697 Aug, Acquired hypothyroidism E03.9 ; Leg pain M79.606 and Bipolar 1 disorder F31.9 [place] [address] 38480- 0503 Aug, [facility] [id number] [place] [address] 15306- 4963 Aug, [place] [address] 17174- 1260 Jul, Thyroid disorder E07.9 [place] [id number] [place] [address] 11473- 1800 Jul, Rash R21 ; Abnormal LFTs R94.5 ; Acquired hypothyroidism E03.9 ; Sleep apnea in adult G47.33 and Fatty liver K76.0 [facility] [id number] [place] [address] 96287- 1320 Jun, [place] [address] 76998- 9127 Jun, [facility] [id number] [place] [address] 57312- 4528 Jun, Bipolar II disorder F31.81 and Social phobia, generalized F40.11 [place] [id number] [address]- 5079 Mar, Bipolar II disorder 296.89 and Social phobia 300.23 [facility] [id number] [place] [address] 17143- 0587 Dec, [facility] [id number] [place] [address] 23563- 7991 Dec, [facility] [id number] [place] [address] 84634- 7976 Dec, Bipolar II disorder in partial or unspecified remission 296.89 and Social phobia, generalized 300.23 [facility] [id number] [place] [address] 60638- 2643 Oct, 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 [facility] [id number] [place] [address] 34619- 5048 Oct, [facility] [id number] [place] [address] 82608- 1120 Oct, [facility] [id number] [place] [address] 84250- 5427 Aug, [facility] [id number] [place] [address] 899150- 9915 Aug, [facility] [address], [place] [address]- 0286 Aug, [facility] [id number]- 3649 Aug, [facility] [address], [place] [address]- 0802 Aug, [facility] [id number] [place] [address] 41087- 0846 Aug, [facility] [address], [place] [address]- 9776 Aug, [facility] [id number] [place] [address] [place] [address]- 8194 Aug, [facility] [address] [id number] [place] [address]- 6368 Jul, [facility] [place] [facility] [address] [id number] [place] [address] Jul, [facility] [place] [facility] [address] [id number] [place] [address] Jul, [facility] [place] [facility] [address] [id number] [place] [address] Jul, [facility] [place] [facility] [address] [id number] [place] [address] Jul, [facility] [place] [facility] [address] [id number] [place] [address] Jul, [facility] [address] [id number] [place] [address] Jun, [facility] [place] [facility] [address] [id number] [place] [address] Jun, [facility] [place] [facility] [address] [id number] [place] [address] Jun, [facility] [place] [facility] [address] [id number] [place] [address] Jun, [facility] [place] [facility] [address] [id number] [place] [address] Jun, [facility] [place] [facility] [address] [id number] [place] [address] Jun, [facility] [place] [facility] [address] [id number] [place] [address] 8[address] Jun, [facility] [place] [facility] [address] [id number] [place] [address] 2362 Jun, [facility] [place] [facility] [address] [id number] [place] [address] 97[address] Jun, [facility] [place] [facility] [address] [id number] [place] [address] Jun, [facility] [place] [facility] [address] [id number] [place] [address] Jun, [facility] [place] [facility] [address] [id number] [place] [address] 6147 Jun, [facility] [place] [facility] [address] [id number] [place] [address] Jun, [facility] [place] [facility] [address] [id number] [place] [address] 8[address] Jun, [facility] [place] [facility] [address] [id number] [place] [address] 2135 Jun, [facility] [place] [facility] [address] [id number] [place] [address] 6233 Jun, [facility] [place] [facility] [address] [id number] [place] [address] May, [facility] [place] [facility] [address] [id number] [place] [address] 99[address] May, [facility] [place] [facility] [address] [id number] [place] [address]- 0936 May, [facility] [place] [facility] [address] [id number] [place] [address]- 9715 May, [facility] [place] [facility] [address] [id number] [place] [address]- 4822 May, [facility] [place] [facility] [address] [id number] [place] [address]- 2275 May, [facility] [place] [facility] [address] [id number] [place] [address]- 5391 Apr, [facility] [place] [facility] [address] [id number] [place] [address]- 3466 Apr, [facility] [place] [facility] [address] [id number] [place] [address]- 0257 Apr, [facility] [place] [facility] [address] [id number] [place] [address] Apr, [facility] [place] [facility] [address] [id number] [place] [address]- 7688 Apr, [facility] [place] [facility] [address] [id number] [place] [address] Apr, [facility] [place] [facility] [address] [id number] [place] [address]- 4948 Mar, [facility] [place] [facility] [address] [id number] [place] [address] 1517 Mar, [facility] [place] [facility] [address] [id number] [place] [address]- 8947 Mar, [facility] [place] [facility] [address] [id number] [place] [address]- 4558 Mar, [facility] [place] [facility] [address] [id number] [place] [address]- 5332 Jan, [facility] [place] [facility] [address] [id number] [place] [address]- 0359 Jan, [facility] [place] [facility] [address] [id number] [place] [address]- 115[address] Jan, [facility] [place] [facility] [address] [id number] [place] [address]- 4664 Jan, [facility] [place] [facility] [address] [id number] [place] [address]- 4693 Jan, [facility] [place] [facility] [address] [id number] [place] [address]- 7234 Jan, [facility] [place] [facility] [address] [id number] [place] [address] 6800 Dec, [facility] [place] [facility] [address] [id number] [place] [address] Dec, [facility] [place] [facility] [address] [id number] [place] [address] 7927 Dec, [facility] [address] [id number] [place] [address] 9582 Dec, [facility] [address] [id number] [place] [address] 9882 Dec, [facility] [address] [id number] [place] [address]- 3071 Dec, [facility] [place] [facility] [address] [id number] [place] [address] 6618 October, [facility] [address] [id number] [place] [address]- 2536 October, [facility] [address] [id number] [place] [address]- 3489 October, [facility] [address] [id number] [place] [address] 7331 October, [facility] [address] [id number] [place] [address]- 2945 October, [facility] [address] [id number] [place] [address] 7202 October, [facility] [address] [id number] [place] [address]- 1167 October, [facility] [place] [facility] [address] [id number] [place] [address]- 1225 October, [facility] [place] [facility] [address] [id number] [place] [address]- 6938 Oct, [facility] [place] [facility] [address] [id number] [place] [address] 8017 Oct, [facility] [place] [facility] [address] [id number] [place] [address] 3376 Oct, [facility] [place] [facility] [address] [id number] [place] [address] 1933 Oct, [facility] [place] [facility] [address] [id number] [place] [address]- 5217 Oct, [facility] [place] [facility] [address] [id number] [place] [address]- 2863 Aug, [facility] [place] [facility] [address] [id number] [place] [address] Aug, [facility] [place] [facility] [address] [id number] [place] [address]- 3716 Aug, [facility] [place] [facility] [address] [id number] [place] [address]- 7644 Aug, [facility] [place] [facility] [address] [id number] [place] [address]- 9691 Aug, [facility] [place] [facility] [address] [id number] [place] [address]- 2833 Aug, [facility] [place] [facility] [address] [id number] [place] [address]- 3132 Jul, [facility] [place] [facility] [address] [id number] [place] [address]- 2342 Jul, [facility] [place] [facility] [address] [id number] [place] [address] 1937 Jul, [facility] [place] [facility] [address] [id number] [place] [address]- 0132 Jul, [facility] [place] [facility] [address] [id number], [place] [address] 8709 Jul, [facility] [place] [facility] [address] [id number] [place] [address]- 4357 Jul, [facility] [place] [facility] [address] [id number] [place] [address]- 9999 Jun, [facility] [place] [facility] [address] [id number] [place] [address]- 2033 Jun, [facility] [place] [facility] [address] [id number] [place] [address]- 9420 Jun, [facility] [place] [facility] [address] [id number] [place] [address]- 9476 Jun, [facility] [place] [facility] [address] [id number] [place] [address]- 5748 Jun, [facility] [place] [facility] [address] [id number] [place] [address]- 0256 Jun, [facility] [place] [facility] [address] [id number] [place] [address]- 3787 May, [facility] [place] [facility] [address] [id number] [place] [address]- 1099 May, [facility] [place] [facility] [address] [id number] [place] [address]- 6940 Apr, [facility] [place] [facility] [address] [id number] [place] [address]- 6585 24 Apr, 2013 [facility] [place] [facility] [address] [id number] [place] [address]- 2891 Apr, [facility] [place] [facility] [address] [id number] [place] [address]- 8487 Apr, [facility] [place] [facility] [address] [facility] [id number] [place] [address]- 8823 Apr, [facility] [place] [facility] [address] [id number] [place] [address]- 2609 Apr, [facility] [place] [facility] [address] [id number], [place] [address]- 9753 Apr, [facility] [place] [facility] [address] [id number] [place] [address]- 7042 Apr, [facility] [place] [facility] [address] [facility] [id number], [place] [address]- 2548 Apr, [facility] [place] [facility] [address] [facility] [id number], [place] [address]- 2946 Apr, [facility] [place] [facility] [address] [id number] [place] [address]- 0887 Apr, [facility] [place] [facility] [address] [id number] [place] [address]- 1619 23 Mar, 2012 [facility] [place] [facility] [address] [id number] [place] [address]- 3253 20 Mar, 2012 [facility] [place] [facility] [address] [id number] [place] [address]- 9699 20 Mar, 2012 [facility] [place] [facility] [address] [id number] [place] [address]- 9620 14 Mar, 2013 [facility] [place] [facility] [address] [id number] [place] [address]- 8098 12 Mar, 2013 [facility] [place] [facility] [address] [id number] [place] [address]- 2247 Mar, [facility] [place] [facility] [address] [id number] [place] [address]- 2958 Mar, [facility] [place] [facility] [address] [id number] [place] [address]- 1148 Jan, [facility] [place] [facility] [address] [id number] [place] [address]- 4537 Jan, [facility] [place] [facility] [address] [id number] [place] [address]- 4485 Jan, [facility] [place] [facility] [address] [id number] [place] [address]- 3430 Jan, [facility] [place] [facility] [address] [id number] [place] [address]- 6678 Jan, [facility] [place] [facility] [address] [id number] [place] [address]- 7206 Jan, [facility] [place] [facility] [address] [id number] [place] [address]- 8491 Jan, [facility] [place] [facility] [address] [id number] [place] [address]- 8901 Dec, [facility] [address] [id number] [place] [address]- 6788 Dec, [facility] [address] [id number] [place] [address]- 5104 Dec, [facility] [address] [id number] [place] [address]- 3309 Dec, [facility] [place] [facility] [address] [id number] [place] [address]- 9963 Dec, [facility] [address] [id number] [place] [address]- 4869 Dec, [facility] [address] [id number] [place] [address]- 5422 October, [facility] [address] [id number] [place] [address]- 9785 October, [facility] [address] [id number] [place] [address]- 1051 October, [facility] [address] [id number] [place] [address]- 7941 October, [facility] [address] [id number] [place] [address]- 9560 Oct, [facility] [address] [id number] [place] [address]- 7361 Oct, [facility] [place] [facility] [address] [id number] [place] [address]- 6848 27 Aug, 2012 [facility] [place] [facility] [address] [id number] [place] [address]- 6565 Aug, [facility] [place] [facility] [address] [id number] [place] [address]- 6360 Aug, [facility] [place] [facility] [address] [id number] [place] [address]- 0383 Aug, [facility] [place] [facility] [address] [id number] [place] [address]- 5743 Aug, [facility] [address] [id number] [place] [address]- 4713 Aug, [facility] [place] [facility] [address] [id number] [place] [address] 2546 Aug, [facility] [place] [facility] [address] [id number] [place] [address]- 0376 Aug, [facility] [place] [facility] [address] [id number] [place] [address]- 2543 Aug, [facility] [place] [facility] [address] [id number] [place] [address]- 2366 Aug, [facility] [place] [facility] [address] [id number] [place] [address]- 5663 Aug, [facility] [place] [facility] [address] [id number] [place] [address] 2545 Aug, [facility] [place] [facility] [address] [id number] [place] [address]- 5028 Aug, [facility] [place] [facility] [address] [id number] [place] [address]- 3240 Aug, [facility] [place] [facility] [address] [id number] [place] [address]- 8278 Jul, [facility] [place] [facility] [address] [id number] [place] [address] 2542 Jul, [facility] [place] [facility] [address] [id number] [place] [address] 2547 Jul, [facility] [place] [facility] [address] [id number] [place] [address] 254 Jul, [facility] [place] [facility] [address] [id number] [place] [address]- 2547 Jun, [facility] [place] [facility] [address] [id number] [place] [address]- 7505 Jun, [facility] [address] [facility] [id number] [place] [address]- 8486 Jun, [facility] [address] [facility] [id number], [place] [address]- 5486 Jun, [facility] [address] [facility] [id number] [place] [address]- 0980 May, [facility] [address] [facility] [id number], [place] [address]- 2646 May, IMMUNIZATIONS No Known Immunizations SOCIAL HISTORY Never Assessed REASON FOR VISIT PALS-[place] PLAN OF CARE VITAL SIGNS MEDICATIONS Medication [...]
--- OUTSIDE RECORDS SUMMARY | 2018-09-02 17:53 | XMS REPORT ---
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 Name Role Phone JOSE LARRY Unavailable PROBLEMS Type Condition ICD9-CM Code PLD04-NH Code Onset Dates Condition Status SNOMED Code Problem 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 Active 56619704 Problem Depressive disorder, not elsewhere classified F32.9 Active 40514794 Problem Chronic posttraumatic stress disorder F43.12 Active 264895993 Problem Insomnia G47.00 Active 880559221 Problem Obesity E66.9 Active 024869164 Problem Other chronic pain G89.29 Active 62849053 Problem Fatty liver K76.0 Active 412204544 Problem Abuse, drug or alcohol F19.10 Active 08330585 Problem Panic disorder without agoraphobia F41.0 Active 88615924 Problem Panic disorder F41.0 Active 723947466 Problem Hypothyroid E03.9 Active 97202051 Problem BMI 50.0-59.9, adult Z68.43 Active 017641777 Problem Restless legs syndrome G25.81 Active 274073219 Problem Encounter for therapeutic drug level monitoring Z51.81 Active 262365204 Problem Neuropathy G62.9 Active 827933464 Problem 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 Active 57317171 Problem Tachycardia R00.0 Active 7657252 Problem Murmur R01.1 Active 858618487 Problem Orthostatic hypertension I10 Active 99437148 Problem Shortness of breath R06.02 Active 990025856 Problem Sleep apnea in adult G47.33 Active 98351648 Problem Tunnel vision, unspecified laterality H53.489 Active 640829912 Problem Undifferentiated schizophrenia F20.3 Active [id number] ALLERGIES No Information ENCOUNTERS Encounter Location Date Diagnosis [facility] [address] [facility] [id number] [address] 18 Apr, 2018 [facility] [id number] [address] Apr, [facility] [id number] [place] [address] 09622- 9883 Apr, Undifferentiated schizophrenia F20.3 [facility] [id number] [place] [address] 64906- 3938 Mar, Undifferentiated schizophrenia F20.3 [facility] [id number] [place] [address] 66711- 4940 Mar, [facility] [id number] [place] [address] 94708- 1248 Mar, Undifferentiated schizophrenia F20.3 [facility] [id number] [place] [address] 87552- 7380 Jan, [facility] [id number] [place] [address] 66132- 7977 Jan, Undifferentiated schizophrenia F20.3 [facility] [id number] [place] [address] 89573- 6231 Jan, [facility] [id number] [place] [address] 20687- 2176 Jan, Undifferentiated schizophrenia F20.3 [facility] [id number] [place] [address] 36439- 0808 Dec, [facility] [id number] [place] [address] 88361- 3650 Dec, [facility] [id number] [place] [address] 81079- 8543 Dec, [facility] [id number] [place] [address] 87452- 4864 Dec, Undifferentiated schizophrenia F20.3 ; 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 ; Chronic posttraumatic stress disorder F43.12 and BMI 50.0- 59.9, adult Z68.43 [facility] [id number] [place] [address] 88979- 5970 Dec, [facility] [address] [address] 2874 Dec, Undifferentiated schizophrenia F20.3 ; Insomnia G47.00 and Thyroid disorder E07.9 [facility] [id number] [place] [address] 30501- 5722 Dec, Undifferentiated schizophrenia F20.3 [facility] [id number] [place] [address] 39862- 7897 Dec, [facility] [id number] [place] [address] 36197- 1817 Dec, [facility] [id number] [place] [address] 42106- 3134 Dec, BMI 50.0-59.9, adult Z68.43 ; Undifferentiated schizophrenia F20.3 ; Panic disorder without agoraphobia F41.0 and Chronic posttraumatic stress disorder F43.12 [facility] [id number] [place] [address] 21890- 1655 Dec, [facility] [id number] [place] [address] 49426- 0116 October, [facility] [id number] [place] [address] 08203- 7025 October, Pain in right shoulder M25.511 and Other chronic pain G89.29 [facility] [id number] [place] [address] 71191- 9340 October, Hypothyroid E03.9 [facility] [id number] [address]- 2234 Oct, Undifferentiated schizophrenia F20.3 [facility] [id number] [address]- 7628 Oct, [facility] [id number] [address]- 9859 Oct, [facility] [id number] [address]- 0351 27 Aug, 2017 Undifferentiated schizophrenia F20.3 [facility] [id number] [place] [address] 55517- 4286 19 Aug, 2017 [facility] [address] [address]- 2196 13 Aug, 2017 Undifferentiated schizophrenia F20.3 ; 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 ; Chronic posttraumatic stress disorder F43.12 and BMI 50.0- 59.9, adult Z68.43 [facility] [id number] [place] [address] 42293- 2141 05 Aug, 2017 [facility] [id number] [place] [address] 23624- 8286 Aug, [facility] [id number] [place] [address] 05783- 0821 Aug, Undifferentiated schizophrenia F20.3 [facility] [id number] [place] [address] 43363- 4945 Aug, Hypothyroid E03.9 [facility] [id number] [place] [address] 79607- 2106 Jul, Undifferentiated schizophrenia F20.3 [facility] [address] [address]- 3373 Jul, [facility] [id number] [place] [address] 71275- 1277 Jul, Undifferentiated schizophrenia F20.3 ; Chronic posttraumatic stress disorder F43.12 ; 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 and BMI 50.0-59.9, adult Z68.43 [facility] [address] [address]- 9583 15 Jul, 2017 [facility] [address] [address]- 8601 08 Jul, 2017 Acute pain of right shoulder M25.511 ; High risk medication use Z79.899 ; Needle stick injury W27.3XXA ; Hypothyroid E03.9 and BMI 50.0-59.9 , adult Z68.43 [facility] [id number] [place] [address] 57778- 7943 Jun, Undifferentiated schizophrenia F20.3 [facility] [address] 11664- 0345 Jun, Undifferentiated schizophrenia F20.3 ; Panic disorder without agoraphobia F41.0 ; Chronic posttraumatic stress disorder F43.12 and BMI 50.0-59.9, adult Z68.43 [facility] [address] 78453- 9903 May, [facility] [id number] [place] [address] 46465- 5967 May, [facility] [address] 49685- 5221 May, Undifferentiated schizophrenia F20.3 [facility] [id number] [place] [address] 06852- 4520 May, [facility] [address] 32783- 7634 May, [facility] [id number] [place] [address] 58366- 6079 May, Hypothyroid E03.9 [facility] [id number] [place] [address] 03354- 2795 13 May, 2017 [facility] [id number] [place] [address] 72229- 0940 May, [facility] [id number] [place] [address] 15758- 4897 07 May, 2017 Chronic posttraumatic stress disorder F43.12 ; 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 ; Undifferentiated schizophrenia F20.3 ; BMI 40.0-44.9, adult Z68.41 and Obesity E66.9 [facility] [address] [address]- 9992 07 May, 2017 Shortness of breath R06.02 [facility] [id number] [place] [address] 16345- 6245 May, [facility] [id number] [place] [address] 03959- 8193 Apr, Undifferentiated schizophrenia F20.3 [facility] [id number] [place] [address] 17056- 2576 Apr, [facility] [id number] [place] [address] 87195- 2003 Apr, [facility] [id number] [place] [address] 28735- 4642 Mar, Undifferentiated schizophrenia F20.3 ; Panic disorder without agoraphobia F41.0 and Chronic posttraumatic stress disorder F43.12 [facility] [id number] [place] [address] 59454- 4409 Mar, Undifferentiated schizophrenia F20.3 [facility] [id number] [place] [address] 09366- 7297 18 Mar, 2017 [facility] [id number] [place] [address] 87462- 7868 08 Mar, 2017 [facility] [id number] [place] [address] 50438- 3452 Mar, [facility] [id number] [address]- 1521 Jan, Undifferentiated schizophrenia F20.3 [facility] [id number] [address]- 2665 Jan, [facility] [id number] [address]- 3166 Jan, [facility] [id number] [place] [address] 57668- 4943 Jan, [place] [id number] [facility] [address] [id number] [id number] Dec, Needle stick injury W27.3XXA [facility] [id number] [address]- 0431 Dec, Needle stick injury W27.3XXA [facility] [id number] [address]- 0996 Dec, Undifferentiated schizophrenia F20.3 [facility] [id number] [address]- 8937 Dec, [facility] [id number] [place] [address] 93862- 4525 Dec, [facility] [id number] [address]- 2612 Dec, Undifferentiated schizophrenia F20.3 ; 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 and Chronic posttraumatic stress disorder F43.12 [facility] [id number] [address]- 6731 Dec, [facility] [id number] [address]- 3468 October, [facility] [id number] [address]- 0078 October, Undifferentiated schizophrenia F20.3 [facility] [id number] [address]- 0991 October, [facility] [id number] [address]- 3407 October, [facility] [id number] [address]- 9929 Oct, Undifferentiated schizophrenia F20.3 ; 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 ; Chronic posttraumatic stress disorder F43.12 and Obesity E66.9 [facility] [address] [address]- 7630 Oct, [facility] [id number] [address]- 8732 Oct, [facility] [id number] [place] [address] 25695- 1530 Aug, Undifferentiated schizophrenia F20.3 [facility] [id number] [place] [address] 95895- 4510 Aug, [facility] [id number] [place] [address] 30991- 6318 Aug, Muscle spasm M62.838 [facility] [id number] [place] [address] 69932- 3732 Aug, Undifferentiated schizophrenia F20.3 [facility] [id number] [place] [address] 93355- 5235 Aug, Undifferentiated schizophrenia F20.3 ; 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 ; Chronic posttraumatic stress disorder F43.12 ; High risk medication use Z79.899 and 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 [facility] [id number] [place] [address] 45002- 0047 Aug, Undifferentiated schizophrenia F20.3 [facility] [id number] [place] [address] 73816- 2831 Aug, [facility] [id number] [place] [address] 38116- 9148 Aug, Acute non-recurrent maxillary sinusitis J01.00 [facility] [address] [address]- 4557 Aug, [facility] [id number] [place] [address] 67968- 9304 Aug, [facility] [id number] [place] [address] 92954- 6168 Jul, Undifferentiated schizophrenia F20.3 [facility] [id number] [place] [address] 81383- 0965 Jul, Schizophrenia, undifferentiated F20.3 ; 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 ; Post-traumatic stress disorder F43.10 ; Panic disorder F41.0 and Depressive disorder, not elsewhere classified F32.9 [facility] [id number] [place] [address] 19689- 7062 Jul, [facility] [id number] [place] [address] 40824- 1943 Jul, Schizophrenia, undifferentiated F20.3 ; 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 ; Post-traumatic stress disorder F43.10 ; Panic disorder F41.0 and Depressive disorder, not elsewhere classified F32.9 [facility] [id number] [place] [address] 26234- 6709 Jul, [facility] [id number] [place] [address] 71655- 4538 Jul, Undifferentiated schizophrenia F20.3 ; 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 ; 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 ; Obesity E66.9 and Chronic posttraumatic stress disorder F43.12 [facility] [id number] [place] [address] 96884- 9816 Jun, [facility] [id number] [place] [address] 24177- 8538 Jun, [facility] [id number] [place] [address] 41794- 9715 Jun, Dental caries K02.9 [facility] [id number] [place] [address] 64441- 4448 Jun, Undifferentiated schizophrenia F20.3 [facility] [id number] [place] [address] 74624- 2990 30 May, 2016 [facility] [id number] [place] [address] 97293- 4021 May, Undifferentiated schizophrenia F20.3 ; 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 and Chronic post-traumatic stress disorder (PTSD) F43.12 [facility] [id number] [place] [address] 95257- 0490 May, [facility] [address] 60436- 6167 May, Undifferentiated schizophrenia F20.3 [facility] [address] 25332- 7254 May, [facility] [address] 07683- 2256 May, Dental examination Z01.20 [facility] [address] 30298- 0077 Apr, Undifferentiated schizophrenia F20.3 ; PTSD (post-traumatic stress disorder) F43.10 and Obesity E66.9 [facility] [address] 62225- 1971 Apr, [facility] [address] 86642- 3651 Mar, [facility] [address] 45297- 2643 Mar, [facility] [address] 10093- 4217 Jan, Shortness of breath R06.02 and Bipolar disorder with psychotic features F31.9 [facility] [id number] [place] [address] 54555- 2313 Jan, [facility] [id number] [place] [address] 34045- 7610 Jan, Increased intracranial pressure G93.2 ; Visual disturbance H53.9 and Bipolar II disorder F31.81 [facility] [id number] [place] [address] 17596- 3713 Jan, [facility] [id number] [place] [address] 52150- 6259 Jan, [place] [id number] [place] [address] 23936- 7181 Jan, [place] [address] 53909- 3693 Jan, Acquired hypothyroidism E03.9 ; Depression F32.9 and Insomnia G47.00 [place] [address] 92494- 3417 Jan, Exertional dyspnea R06.09 ; Heart palpitations R00.2 ; Hyperlipidemia, unspecified hyperlipidemia type E78.5 ; Hypothyroidism, unspecified type E03.9 and Hypokalemia E87.6 [place] [address] 50689- 1508 Dec, PTSD (post-traumatic stress disorder) F43.10 ; Depression F32.9 ; Insomnia G47.00 and Bipolar disorder with psychotic features F31.9 [place] [address] 62138- 4643 Dec, Increased intracranial pressure G93.2 [place] [id number] [place] [address] 13279- 4505 Dec, [place] [id number] [place] [address] 21511- 1464 Dec, Shortness of breath R06.02 [place] [id number] [place] [address] 97551- 6158 Dec, Visual disturbance H53.9 and Headache, unspecified headache type R51 [place] [id number] [place] [address] 54362- 1278 Dec, Insomnia G47.00 [place] [address] 92102- 8909 Dec, Murmur R01.1 [place] [id number] [place] [address] 38501- 7040 Dec, Murmur R01.1 ; Tunnel vision, unspecified laterality H53.489 ; Orthostatic hypertension I10 ; Shortness of breath R06.02 and Tachycardia R00.0 [place] [address] 91886- 7686 Dec, [facility] [address] 90466- 9547 Dec, Hypothyroid E03.9 and Bipolar 1 disorder F31.9 [place] [address] 19091- 2197 Dec, Bipolar 1 disorder F31.9 [place] [address] 55707- 9204 Dec, [place] [address] 60181- 4834 October, Acquired hypothyroidism E03.9 ; Depression F32.9 and Insomnia G47.00 [place] [address] 89074- 7618 October, [place] [address] 26610- 0480 October, Bipolar 1 disorder F31.9 ; PTSD (post-traumatic stress disorder) F43.10 and 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 [place] [id number] [place] [address] 22500- 4229 Oct, Bipolar 1 disorder F31.9 and Insomnia G47.00 [place] [id number] [place] [address] 08842- 9079 Oct, [facility] [id number] [place] [address] 48052- 8229 Oct, [place] [address] 30876- 3418 Aug, Hypothyroid E03.9 [facility] [id number] [place] [address] 42818- 2925 Aug, Encounter for therapeutic drug level monitoring Z51.81 and Other mcfp (current) drug therapy Z79.899 [facility] [id number] [place] [address] 17508- 0855 17 Sep, 2015 Encounter for therapeutic drug level monitoring Z51.81 [facility] [id number] [place] [address] 61879- 7636 15 Sep, 2015 Acquired hypothyroidism E03.9 ; Leg pain M79.606 and Bipolar 1 disorder F31.9 [facility] [id number] [place] [address] 66238- 6190 Aug, [facility] [address] 99782- 8963 Aug, [facility] [id number] [place] [address] 65562- 1386 Jul, Thyroid disorder E07.9 [facility] [address] 20255- 4117 Jul, Rash R21 ; Abnormal LFTs R94.5 ; Acquired hypothyroidism E03.9 ; Sleep apnea in adult G47.33 and Fatty liver K76.0 [facility] [id number] [place] [address] 29397- 4097 Jun, [facility] [id number] [place] [address] 43214- 0211 Jun, [facility] [id number] [place] [address] 39174- 4503 Jun, Bipolar II disorder F31.81 and Social phobia, generalized F40.11 [facility] [id number] [place] [address] 58416- 9117 Mar, Bipolar II disorder 296.89 and Social phobia 300.23 [facility] [id number] [place] [address] 60528- 7395 Dec, [facility] [address] 89803- 6542 Dec, [facility] [address] [address]- 2983 Dec, Bipolar II disorder in partial or unspecified remission 296.89 and Social phobia, generalized 300.23 [facility] [address] [address]- 2654 30 Oct, 2014 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 [facility] [id number] [address] Oct, [facility] [id number] [address] Oct, [facility] [id number] [address] Aug, [facility] [id number] [address] Aug, [facility] [id number] [address] Aug, [facility] [id number] [address] Aug, [facility] [id number] [address] Aug, [facility] [id number] [address] Aug, [facility] [id number] [address] Aug, [facility] [id number] [address] Aug, [facility] [id number] [address] Jul, [facility] [id number] [address] Jul, [facility] [id number] [address] Jul, [facility] [address] [id number] [place] [address] Jul, [facility] [place] [facility] [address] [id number] [place] [address] Jul, [facility] [address] [facility] [id number] [place] [address] Jul, [facility] [place] [facility] [address] [id number] [place] [address] Jun, [facility] [place] [facility] [address] [id number] [place] [address] Jun, [facility] [place] [facility] [address] [id number] [place] [address] Jun, [facility] [address] [facility] [id number] [place] [address] Jun, [facility] [place] [facility] [address] [id number] [place] [address] Jun, [facility] [place] [facility] [address] [id number] [place] [address] Jun, [facility] [place] [facility] [address] [facility] [id number] [place] [address] Jun, [facility] [place] [facility] [address] [id number] [place] [address] Jun, [facility] [place] [facility] [address] [id number] [address] Jun, [facility] [place] [facility] [address] [id number] [place] [address] Jun, [facility] [place] [facility] [address] [facility] [id number] [place] [address] Jun, [facility] [place] [facility] [address] [facility] [id number] [place] [address] 9[address] Jun, [facility] [place] [facility] [address] [id number] [place] [address] 78[address] Jun, [facility] [place] [facility] [address] [id number] [place] [address] Jun, [facility] [place] [facility] [address] [id number] [place] [address] Jun, [facility] [place] [facility] [address] [id number] [place] [address] 74[address] Jun, [facility] [place] [facility] [address] [id number] [place] [address] May, [facility] [place] [facility] [address] [id number] [place] [address] 3768 May, [facility] [place] [facility] [address] [id number] [place] [address] 8430 May, [facility] [place] [facility] [address] [id number] [place] [address] 3567 May, [facility] [place] [facility] [address] [id number] [place] [address] May, [facility] [place] [facility] [address] [id number] [place] [address] 5825 May, [facility] [place] [facility] [address] [id number] [place] [address] 2816 Apr, [facility] [place] [facility] [address] [id number] [place] [address] 1598 Apr, [facility] [place] [facility] [address] [id number] [place] [address]- 5370 Apr, [facility] [place] [facility] [address] [id number] [place] [address]- 5[address] Apr, [facility] [place] [facility] [address] [id number] [place] [address] 5254 Apr, [facility] [place] [facility] [address] [id number] [place] [address] 48[address] Apr, [facility] [place] [facility] [address] [id number] [place] [address] 8224 Mar, [facility] [place] [facility] [address] [id number] [place] [address] 2589 Mar, [facility] [place] [facility] [address] [id number] [place] [address] 6160 Mar, [facility] [place] [facility] [address] [id number] [place] [address]- 1072 Mar, [facility] [place] [facility] [address] [id number] [place] [address]- 52[address] Jan, [facility] [place] [facility] [address] [id number] [place] [address]- 8556 Jan, [facility] [place] [facility] [address] [id number] [place] [address]- 0795 Jan, [facility] [place] [facility] [address] [id number] [place] [address]- 6246 Jan, [facility] [place] [facility] [address] [id number] [place] [address]- 3514 Jan, [facility] [place] [facility] [address] [id number] [place] [address] 4103 Jan, [facility] [place] [facility] [address] [id number] [address] Dec, [facility] [place] [facility] [address] [id number] [place] [address]65 Dec, [facility] [place] [facility] [address] [id number] [place] [address] 6253 Dec, [facility] [place] [facility] [address] [id number] [place] [address]- 5588 Dec, [facility] [place] [facility] [address] [id number] [place] [address]- 0950 Dec, [facility] [place] [facility] [address] [id number] [place] [address]- 9915 Dec, [facility] [place] [facility] [address] [id number] [place] [address]- 7218 October, [facility] [place] [facility] [address] [id number] [place] [address]- 0506 October, [facility] [place] [facility] [address] [id number] [place] [address] 6365 October, [facility] [place] [facility] [address] [id number] [place] [address]- 3362 October, [facility] [place] [facility] [address] [id number] [place] [address] October, [facility] [place] [facility] [address] [id number] [place] [address]- 5932 October, [facility] [place] [facility] [address] [id number] [place] [address]- 8648 October, [facility] [place] [facility] [address] [id number] [place] [address] 9257 October, [facility] [place] [facility] [address] [id number] [place] [address]- 9460 Oct, [facility] [place] [facility] [address] [id number] [place] [address] 9739 Oct, [facility] [place] [facility] [address] [id number] [place] [address]- 9102 Oct, [facility] [place] [facility] [address] [id number] [place] [address]- 9187 Oct, [facility] [place] [facility] [address] [id number] [place] [address]- 8880 Oct, [facility] [place] [facility] [address] [id number] [place] [address]- 8849 Aug, [facility] [place] [facility] [address] [id number] [place] [address]- 7280 Aug, [facility] [place] [facility] [address] [id number] [place] [address]- 0204 Aug, [facility] [place] [facility] [address] [id number] [place] [address]- 3436 Aug, [facility] [place] [facility] [address] [id number] [place] [address]- 5574 Aug, [facility] [place] [facility] [address] [id number] [place] [address]- 9934 Aug, [facility] [place] [facility] [address] [id number] [place] [address]- 7013 Jul, [facility] [place] [facility] [address] [id number] [place] [address]- 3538 Jul, [facility] [place] [facility] [address] [id number] [place] [address]- 3967 Jul, [facility] [place] [facility] [address] [id number] [place] [address]- 8464 Jul, [facility] [place] [facility] [address] [id number] [place] [address]- 7235 Jul, [facility] [place] [facility] [address] [id number] [place] [address]- 0081 Jul, [facility] [place] [facility] [address] [id number] [place] [address] 4829 Jun, [facility] [place] [facility] [address] [id number] [place] [address]- 2571 Jun, [facility] [place] [facility] [address] [id number] [place] [address]- 0134 Jun, [facility] [place] [facility] [address] [id number] [place] [address]- 7237 Jun, [facility] [place] [facility] [address] [id number] [place] [address]- 0984 Jun, [facility] [place] [facility] [address] [id number] [place] [address]- 2989 Jun, [facility] [place] [facility] [address] [id number] [place] [address]- 7602 May, [facility] [place] [facility] [address] [id number] [place] [address]- 5321 May, [facility] [place] [facility] [address] [facility] [id number] [place] [address]- 6368 Apr, [facility] [place] [facility] [address] [id number] [place] [address]- 9560 Apr, [facility] [place] [facility] [address] [id number] [place] [address]- 0056 Apr, [facility] [place] [facility] [address] [id number] [place] [address]- 0603 Apr, [facility] [place] [facility] [address] [facility] [id number] [place] [address]- 4254 Apr, [facility] [place] [facility] [address] [id number] [place] [address]- 1579 Apr, [facility] [place] [facility] [address] [facility] [id number] [place] [address]- 2445 Apr, [facility] [place] [facility] [address] [facility] [id number] [place] [address]- 9828 Apr, [facility] [place] [facility] [address] [id number] [place] [address]- 9100 Apr, [facility] [place] [facility] [address] [id number] [place] [address]- 6349 Apr, [facility] [place] [facility] [address] [id number] [place] [address]- 2519 Apr, [facility] [place] [facility] [address] [facility] [id number] [place] [address]- 9608 Mar, [facility] [place] [facility] [address] [facility] [id number] [place] [address]- 9339 20 Mar, 2013 [facility] [place] [facility] [address] [id number] [place] [address]- 7619 20 Mar, 2012 [facility] [place] [facility] [address] [id number] [place] [address]- 8086 14 Mar, 2013 [facility] [place] [facility] [address] [id number] [place] [address] 2546 12 Mar, 2013 [facility] [place] [facility] [address] [id number] [place] [address] 2546 06 Mar, 2012 [facility] [place] [facility] [address] [id number] [place] [address] 2541 06 Mar, 2012 [facility] [place] [facility] [address] [id number] [place] [address]- 5050 Jan, [facility] [place] [facility] [address] [id number] [place] [address]- 2229 Jan, [facility] [place] [facility] [address] [id number] [place] [address]- 4217 Jan, [facility] [place] [facility] [address] [id number] [place] [address]- 9175 Jan, [facility] [place] [facility] [address] [id number] [place] [address]- 5062 Jan, [facility] [place] [facility] [address] [id number] [place] [address]- 3586 Jan, [facility] [place] [facility] [address] [id number] [place] [address]- 7218 Jan, [facility] [place] [facility] [address] [id number] [place] [address]- 3211 Dec, [facility] [place] [facility] [address] [id number] [place] [address]- 1173 Dec, [facility] [place] [facility] [address] [id number] [place] [address] 2545 Dec, [facility] [place] [facility] [address] [id number] [place] [address]- 9510 Dec, [facility] [address] [id number] [place] [address]- 0728 Dec, [facility] [address] [id number] [place] [address]- 2578 Dec, [facility] [address] [id number] [place] [address]- 7474 October, [facility] [address] [id number] [place] [address]- 8046 October, [facility] [address] [id number] [place] [address]- 2879 October, [facility] [address] [id number] [place] [address]- 9912 October, [facility] [address] [id number] [place] [address]- 6925 Oct, [facility] [address] [id number] [place] [address]- 5078 Oct, [facility] [address] [id number] [place] [address]- 0826 Aug, [facility] [address] [id number] [place] [address]- 5240 Aug, [facility] [address] [id number] [place] [address]- 7134 Aug, [facility] [place] [facility] [address] [id number] [place] [address]- 4485 Aug, [facility] [place] [facility] [address] [id number] [place] [address]- 3497 18 Aug, 2012 [facility] [place] [facility] [address] [id number] [place] [address]- 0666 Aug, [facility] [place] [facility] [address] [id number] [place] [address]- 4865 Aug, [facility] [address] [id number] [place] [address] 2546 25 Aug, 2012 [facility] [address] [id number] [place] [address] 2546 Aug, [facility] [place] [facility] [address] [id number] [place] [address] 2546 11 Aug, 2012 [facility] [place] [facility] [address] [id number] [place] [address] 2546 10 Aug, 2012 [facility] [place] [facility] [address] [id number] [place] [address] 2546 08 Aug, 2012 [facility] [place] [facility] [address] [id number] [place] [address] 2546 Aug, [facility] [place] [facility] [address] [id number] [place] [address] 2546 Aug, [facility] [place] [facility] [address] [id number] [place] [address]- 8182 30 Jul, 2012 [facility] [address] [id number] [place] [address] 2540 Jul, [facility] [place] [facility] [address] [facility] [id number] [place] [address]- 2549 Jul, [facility] [place] [facility] [address] [facility] [id number] [place] [address] 2545 Jul, [facility] [place] [facility] [address] [id number] [place] [address] 2546 Jun, [facility] [place] [facility] [address] [id number] [place] [address] 2546 Jun, [facility] [place] [facility] [address] [id number] [place] [address] 2546 Jun, [facility] [place] [facility] [address] [id number] [place] [address] 2546 Jun, [facility] [place] [facility] [address] [id number] [place] [address]- 2546 May, [facility] [address] [facility] [id number] [place] [address]- 1643 May, IMMUNIZATIONS No Known Immunizations SOCIAL HISTORY Never Assessed REASON FOR VISIT Repository Medication PLAN OF CARE VITAL SIGNS MEDICATIONS Medication Instructions Dosage Frequency Start Date End Date Duration Status Neurontin 800 MG Orally 2 times a day 1 tablet 12h Aug, 67 days Active RESULTS No Results PROCEDURES No [...]
--- OUTSIDE RECORDS SUMMARY | 2018-09-02 17:54 | XMS REPORT ---
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 Role Phone JOSE LARRY Unavailable PROBLEMS Type Condition ICD9-CM Code VEP31-LP Code Onset Dates Condition Status SNOMED Code Problem 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 Active 78755321 Problem Depressive disorder, not elsewhere classified F32.9 Active 93256110 Problem Chronic posttraumatic stress disorder F43.12 Active 552438930 Problem Insomnia G47.00 Active 600183486 Problem Obesity E66.9 Active 176227433 Problem Other chronic pain G89.29 Active 81677717 Problem Fatty liver K76.0 Active 611763828 Problem Abuse, drug or alcohol F19.10 Active 10780385 Problem Panic disorder without agoraphobia F41.0 Active 87301524 Problem Panic disorder F41.0 Active 114144705 Problem Hypothyroid E03.9 Active 43284005 Problem BMI 50.0-59.9, adult Z68.43 Active 618837148 Problem Restless legs syndrome G25.81 Active 947506971 Problem Encounter for therapeutic drug level monitoring Z51.81 Active 548344336 Problem Neuropathy G62.9 Active 797246876 Problem 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 Active 48346146 Problem Tachycardia R00.0 Active 4631501 Problem Murmur R01.1 Active 095925072 Problem Orthostatic hypertension I10 Active 02761350 Problem Shortness of breath R06.02 Active 746406298 Problem Sleep apnea in adult G47.33 Active 38585963 Problem Tunnel vision, unspecified laterality H53.489 Active 461632655 Problem Undifferentiated schizophrenia F20.3 Active 545051281 ALLERGIES No Information ENCOUNTERS Encounter Location Date Diagnosis [facility] [address] [facility] [id number] [address] 18 Apr, 2018 [facility] [address] [address] 17 Mar, 2018 Undifferentiated schizophrenia F20.3 [facility] [id number] [place] [address], [place] [address]- 0037 17 Mar, 2018 [facility] [id number] [place] [address], [place] [address] 7310 Mar, Undifferentiated schizophrenia F20.3 [facility] [id number] [place] [address], [place] [address]- 1076 Jan, [facility] [id number] [place] [address], [place] [address]- 0210 Jan, Undifferentiated schizophrenia F20.3 [facility] [id number] [place] [address], [place] [address]- 4137 Jan, [facility] [id number] [place] [address] 66273- 5366 Jan, Undifferentiated schizophrenia F20.3 [facility] [id number] [place] [address] 94225- 3970 Dec, [facility] [id number] [place] [address] 92494- 0457 Dec, [facility] [id number] [place] [address] 36928- 6655 Dec, [facility] [id number] [place] [address] 66755- 6293 Dec, Undifferentiated schizophrenia F20.3 ; 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 ; Chronic posttraumatic stress disorder F43.12 and BMI 50.0- 59.9, adult Z68.43 [facility] [id number] [place] [address] 23391- 6477 Dec, [facility] [id number] [place] [address] 29274- 9557 Dec, Undifferentiated schizophrenia F20.3 ; Insomnia G47.00 and Thyroid disorder E07.9 [facility] [id number] [place] [address] 23922- 8097 Dec, Undifferentiated schizophrenia F20.3 [facility] [id number] [place] [address] 80600- 0161 18 Dec, 2017 [facility] [id number] [place] [address] 07117- 4750 15 Dec, 2017 [facility] [id number] [place] [address] 97432- 6740 Dec, BMI 50.0-59.9, adult Z68.43 ; Undifferentiated schizophrenia F20.3 ; Panic disorder without agoraphobia F41.0 and Chronic posttraumatic stress disorder F43.12 [facility] [id number] [place] [address] 17078- 5907 04 Dec, 2017 [facility] [id number] [place] [address] 49123- 4531 October, [facility] [id number] [place] [address] 55766- 9897 October, Pain in right shoulder M25.511 and Other chronic pain G89.29 [facility] [id number] [place] [address] 49740- 5177 October, Hypothyroid E03.9 [facility] [id number] [place] [address] 95338- 8242 Oct, Undifferentiated schizophrenia F20.3 [facility] [id number] [place] [address] 51385- 3558 Oct, [facility] [id number] [place] [address] 14762- 2187 Oct, [facility] [id number] [place] [address] 13772- 3049 Aug, Undifferentiated schizophrenia F20.3 [facility] [id number] [place] [address] 65903- 5475 Aug, [facility] [address] [address]- 2692 13 Aug, 2017 Undifferentiated schizophrenia F20.3 ; 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 ; Chronic posttraumatic stress disorder F43.12 and BMI 50.0- 59.9, adult Z68.43 [facility] [id number] [place] [address] 68653- 9275 05 Aug, 2017 [facility] [id number] [place] [address] 97797- 1848 Aug, [facility] [id number] [place] [address] 03234- 6589 Aug, Undifferentiated schizophrenia F20.3 [facility] [id number] [place] [address] 00169- 2659 Aug, Hypothyroid E03.9 [facility] [id number] [place] [address] 77123- 2028 Jul, Undifferentiated schizophrenia F20.3 [facility] [id number] [place] [address] 87804- 3672 Jul, [facility] [id number] [place] [address] 27345- 3354 Jul, Undifferentiated schizophrenia F20.3 ; Chronic posttraumatic stress disorder F43.12 ; 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 and BMI 50.0-59.9, adult Z68.43 [facility] [id number] [place] [address] 34159- 1902 15 Jul, 2017 [facility] [id number] [place] [address] 00025- 1295 Jul, Acute pain of right shoulder M25.511 ; High risk medication use Z79.899 ; Needle stick injury W27.3XXA ; Hypothyroid E03.9 and BMI 50.0-59.9 , adult Z68.43 [facility] [id number] [place] [address] 10173- 7506 Jun, Undifferentiated schizophrenia F20.3 [facility] [address] [place] [address] 08110- 0997 Jun, Undifferentiated schizophrenia F20.3 ; Panic disorder without agoraphobia F41.0 ; Chronic posttraumatic stress disorder F43.12 and BMI 50.0-59.9, adult Z68.43 [facility] [id number] [place] [address] 69363- 6715 May, [facility] [id number] [place] [address] 56273- 1605 May, [facility] [id number] [place] [address] 17808- 5980 May, Undifferentiated schizophrenia F20.3 [facility] [id number] [place] [address] 01500- 9876 May, [facility] [id number] [place] [address] 39111- 2409 May, [facility] [id number] [place] [address] 23184- 2561 May, Hypothyroid E03.9 [facility] [id number] [place] [address] 59255- 7123 May, [facility] [id number] [place] [address] 14963- 2392 May, [facility] [id number] [place] [address] 54291- 5887 07 May, 2017 Chronic posttraumatic stress disorder F43.12 ; 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 ; Undifferentiated schizophrenia F20.3 ; BMI 40.0-44.9, adult Z68.41 and Obesity E66.9 [facility] [address] [place] [address] 11979- 0871 07 May, 2017 Shortness of breath R06.02 [facility] [id number] [place] [address] 60029- 6572 May, [facility] [address] [address]- 3012 Apr, Undifferentiated schizophrenia F20.3 [facility] [address] [place] [address] 51997- 8445 Apr, [facility] [address] [place] [address] 58159- 0549 Apr, [facility] [id number] [place] [address] 10091- 8323 Mar, Undifferentiated schizophrenia F20.3 ; Panic disorder without agoraphobia F41.0 and Chronic posttraumatic stress disorder F43.12 [facility] [id number] [place] [address] 46999- 2360 Mar, Undifferentiated schizophrenia F20.3 [facility] [id number] [place] [address] 87055- 5322 Mar, [facility] [id number] [place] [address] 35621- 0410 Mar, [facility] [id number] [place] [address] 08371- 8034 Mar, [facility] [id number] [place] [address] 95984- 9149 Jan, Undifferentiated schizophrenia F20.3 [facility] [address] [place] [address] 87654- 3717 Jan, [facility] [address] [address]- 8111 Jan, [facility] [id number] [place] [address] 02870- 6776 Jan, [facility] [address] [facility] [id number] [id number] Dec, Needle stick injury W27.3XXA [facility] [id number] [place] [address] 99777- 5843 Dec, Needle stick injury W27.3XXA [facility] [address] [address]- 7371 Dec, Undifferentiated schizophrenia F20.3 [facility] [id number] [place] [address] 80004- 2224 Dec, [facility] [id number] [place] [address] 08655- 0277 Dec, [facility] [id number] [place] [address] 06438- 2493 Dec, Undifferentiated schizophrenia F20.3 ; 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 and Chronic posttraumatic stress disorder F43.12 [facility] [id number] [place] [address] 90585- 9211 Dec, [facility] [id number] [place] [address] 25007- 6128 October, [facility] [id number] [place] [address] 40547- 3374 October, Undifferentiated schizophrenia F20.3 [facility] [id number] [address]- 2613 October, [facility] [address] [address]- 5512 October, [facility] [address] [place] [address] 03754- 8335 Oct, Undifferentiated schizophrenia F20.3 ; 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 ; Chronic posttraumatic stress disorder F43.12 and Obesity E66.9 [facility] [id number] [address]- 3414 Oct, [facility] [id number] [address]- 8399 Oct, [facility] [address] [address]- 3991 Aug, Undifferentiated schizophrenia F20.3 [facility] [id number] [place] [address] 77733- 6474 17 Aug, 2016 [facility] [id number] [place] [address] 30086- 1795 Aug, Muscle spasm M62.838 [facility] [id number] [place] [address] 99641- 8042 Aug, Undifferentiated schizophrenia F20.3 [facility] [id number] [place] [address] 37065- 8160 Aug, Undifferentiated schizophrenia F20.3 ; 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 ; Chronic posttraumatic stress disorder F43.12 ; High risk medication use Z79.899 and 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 [facility] [id number] [place] [address] 26966- 3025 Aug, Undifferentiated schizophrenia F20.3 [facility] [id number] [place] [address] 60882- 3028 Aug, [facility] [id number] [place] [address] 12663- 6619 14 Aug, 2016 Acute non-recurrent maxillary sinusitis J01.00 [facility] [id number] [place] [address] 29013- 2822 10 Aug, 2016 [facility] [id number] [place] [address] 21030- 3224 Aug, [facility] [id number] [place] [address] 41806- 6829 Jul, Undifferentiated schizophrenia F20.3 [facility] [id number] [place] [address] 81361- 6409 Jul, Schizophrenia, undifferentiated F20.3 ; 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 ; Post-traumatic stress disorder F43.10 ; Panic disorder F41.0 and Depressive disorder, not elsewhere classified F32.9 [facility] [id number] [place] [address] 00741- 6787 Jul, [facility] [address] [place] [address] 92351- 7543 Jul, Schizophrenia, undifferentiated F20.3 ; 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 ; Post-traumatic stress disorder F43.10 ; Panic disorder F41.0 and Depressive disorder, not elsewhere classified F32.9 [facility] [id number] [place] [address] 13700- 8200 Jul, [facility] [id number] [place] [address] 97675- 0619 Jul, Undifferentiated schizophrenia F20.3 ; 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 ; 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 ; Obesity E66.9 and Chronic posttraumatic stress disorder F43.12 [facility] [id number] [address]- 0578 Jun, [facility] [id number] [place] [address] 12868- 4252 Jun, [facility] [id number] [place] [address] 55587- 4910 Jun, Dental caries K02.9 [facility] [id number] [place] [address] 05420- 3492 Jun, Undifferentiated schizophrenia F20.3 [facility] [address] [address]- 4151 30 May, 2016 [facility] [id number] [place] [address] 42539- 2179 May, Undifferentiated schizophrenia F20.3 ; 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 and Chronic post-traumatic stress disorder (PTSD) F43.12 [facility] [address] [address]- 3408 May, [facility] [address] [address]- 3791 May, Undifferentiated schizophrenia F20.3 [facility] [id number] [place] [address] 26139- 5052 10 May, 2016 [facility] [address] 86939- 3210 07 May, 2016 Dental examination Z01.20 [facility] [address] 35555- 1896 20 Apr, 2016 Undifferentiated schizophrenia F20.3 ; PTSD (post-traumatic stress disorder) F43.10 and Obesity E66.9 [facility] [id number] [place] [address] 56501- 5151 Apr, [facility] [address] 76426- 3258 15 Mar, 2016 [place] [address] 74361- 7655 Mar, [facility] [address] 78668- 8983 Jan, Shortness of breath R06.02 and Bipolar disorder with psychotic features F31.9 [facility] [id number] [place] [address] 52859- 3721 Jan, [facility] [id number] [place] [address] 95599- 6031 Jan, Increased intracranial pressure G93.2 ; Visual disturbance H53.9 and Bipolar II disorder F31.81 [facility] [id number] [place] [address] 17670- 3871 Jan, [facility] [id number] [place] [address] 30850- 4860 Jan, [facility] [address] 93126- 3206 Jan, [facility] [id number] [place] [address] 31313- 9687 Jan, Acquired hypothyroidism E03.9 ; Depression F32.9 and Insomnia G47.00 [facility] [id number] [place] [address] 97226- 6487 Jan, Exertional dyspnea R06.09 ; Heart palpitations R00.2 ; Hyperlipidemia, unspecified hyperlipidemia type E78.5 ; Hypothyroidism, unspecified type E03.9 and Hypokalemia E87.6 [place] [address] 10763- 2572 Dec, PTSD (post-traumatic stress disorder) F43.10 ; Depression F32.9 ; Insomnia G47.00 and Bipolar disorder with psychotic features F31.9 [place] [facility] [address] 78292- 0585 Dec, Increased intracranial pressure G93.2 [facility] [address] 61295- 5868 Dec, [address] 80026- 8181 Dec, Shortness of breath R06.[address] 06488- 6973 Dec, Visual disturbance H53.9 and Headache, unspecified headache type R51 [place] [address] 65298- 7547 Dec, Insomnia G47.00 [place] [address] 42474- 8084 Dec, Murmur R01.1 [place] [address] 99419- 0712 Dec, Murmur R01.1 ; Tunnel vision, unspecified laterality H53.489 ; Orthostatic hypertension I10 ; Shortness of breath R06.02 and Tachycardia R00.0 [place] [address] 61549- 9478 Dec, [address] [place] [address]- 2212 Dec, Hypothyroid E03.9 and Bipolar 1 disorder F31.9 [facility] [id number] [place] [address] 23657- 5714 Dec, Bipolar 1 disorder F31.9 [facility] [address] [place] [address] 61829- 0933 Dec, [facility] [id number] [place] [address] 42531- 3746 October, Acquired hypothyroidism E03.9 ; Depression F32.9 and Insomnia G47.00 [facility] [id number] [place] [address] 58451- 1538 October, [facility] [id number] [place] [address] 48817- 4812 October, Bipolar 1 disorder F31.9 ; PTSD (post-traumatic stress disorder) F43.10 and 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 [facility] [id number] [place] [address] 66945- 5098 Oct, Bipolar 1 disorder F31.9 and Insomnia G47.00 [facility] [id number] [place] [address] 32168- 9215 Oct, [facility] [id number] [place] [address] 78032- 4597 Oct, [facility] [id number] [place] [address] 37146- 4721 Aug, Hypothyroid E03.9 [facility] [id number] [place] [address] 77099- 9834 Aug, Encounter for therapeutic drug level monitoring Z51.81 and 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 [facility] [address] [place] [address] 03799- 3339 Aug, Encounter for therapeutic drug level monitoring Z51.81 [facility] [id number] [place] [address] 28502- 5386 Aug, Acquired hypothyroidism E03.9 ; Leg pain M79.606 and Bipolar 1 disorder F31.9 [facility] [id number] [place] [address] 55070- 0433 Aug, [facility] [id number] [place] [address] 80298- 3574 Aug, [facility] [address] 57178- 7843 Jul, Thyroid disorder E07.9 [facility] [address] 42944- 9096 Jul, Rash R21 ; Abnormal LFTs R94.5 ; Acquired hypothyroidism E03.9 ; Sleep apnea in adult G47.33 and Fatty liver K76.0 [facility] [address] 37554- 6970 Jun, [facility] [id number] [place] [address] 95881- 4894 Jun, [facility] [address] 30547- 7239 Jun, Bipolar II disorder F31.81 and Social phobia, generalized F40.11 [facility] [id number] [place] [address] 44346- 6352 Mar, Bipolar II disorder 296.89 and Social phobia 300.23 [facility] [id number] [place] [address] 52663- 0741 Dec, [facility] [id number] [place] [address] 05584- 6653 Dec, [facility] [id number] [place] [address] 10651- 9204 Dec, Bipolar II disorder in partial or unspecified remission 296.89 and Social phobia, generalized 300.23 [facility] [address] [place] [address] [place] [address]- 7294 30 Oct, 2014 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 [facility] [place] [facility] [address] [id number] [place] [address]- 7627 14 Oct, 2014 [facility] [place] [facility] [address] [id number] [place] [address]- 4516 Oct, [facility] [place] [facility] [address] [id number] [place] [address]- 0304 Aug, [facility] [place] [facility] [address] [id number] [place] [address]- 2559 Aug, [facility] [place] [facility] [address] [id number] [place] [address]- 6768 Aug, [facility] [place] [facility] [address] [facility] [id number] [place] [address]- 0499 Aug, [facility] [place] [facility] [address] [id number] [place] [address]- 9995 Aug, [facility] [place] [facility] [address] [id number] [place] [address]- 5117 Aug, [facility] [place] [facility] [address] [facility] [id number] [place] [address]- 6184 Aug, [facility] [place] [facility] [address] [facility] [id number] [place] [address]- 6163 Aug, [facility] [place] [facility] [address] [facility] [id number] [place] [address] Jul, [facility] [place] [facility] [address] [id number] [place] [address] Jul, [facility] [place] [facility] [address] [id number] [place] [address] Jul, [facility] [place] [facility] [address] [id number] [place] [address] Jul, [facility] [place] [facility] [address] [id number] [place] [address] Jul, [facility] [place] [facility] [address] [id number] [place] [address] Jul, [facility] [place] [facility] [address] [id number] [place] [address] Jun, [facility] [place] [facility] [address] [id number] [place] [address] Jun, [facility] [place] [facility] [address] [id number] [place] [address] Jun, [facility] [place] [facility] [address] [id number] [place] [address] Jun, [facility] [place] [facility] [address] [id number] [place] [address] Jun, [facility] [place] [facility] [address] [id number] [place] [address] Jun, [facility] [place] [facility] [address] [id number] [place] [address] Jun, [facility] [place] [facility] [address] [id number] [place] [address] Jun, [facility] [place] [facility] [address] [id number] [place] [address] Jun, [facility] [place] [facility] [address] [id number] [place] [address] Jun, [facility] [place] [facility] [address] [id number], [place] [address] Jun, [facility] [place] [facility] [address] [id number] [place] [address] Jun, [facility] [place] [facility] [address] [id number] [place] [address] Jun, [facility] [place] [facility] [address] [id number] [place] [address] Jun, [facility] [place] [facility] [address] [id number] [place] [address] Jun, [facility] [place] [facility] [address] [id number] [place] [address] Jun, [facility] [place] [facility] [address] [id number] [place] [address] May, [facility] [place] [facility] [address] [id number] [place] [address] May, [facility] [place] [facility] [address] [id number] [place] [address] 37[address] May, [facility] [place] [facility] [address] [id number] [place] [address] May, [facility] [place] [facility] [address] [id number] [place] [address] 97[address] May, [facility] [place] [facility] [address] [id number] [place] [address] 1376 May, [facility] [place] [facility] [address] [id number] [place] [address] Apr, [facility] [place] [facility] [address] [id number] [place] [address] 1455 Apr, [facility] [place] [facility] [address] [facility] [id number] [place] [address] 7[address] Apr, [facility] [place] [facility] [address] [id number] [place] [address] 3610 Apr, [facility] [place] [facility] [address] [id number] [place] [address] 0198 Apr, [facility] [place] [facility] [address] [id number] [place] [address] 8132 Apr, [facility] [place] [facility] [address] [id number] [place] [address] Mar, [facility] [place] [facility] [address] [id number] [place] [address] 1254 Mar, [facility] [place] [facility] [address] [id number] [place] [address] 9578 Mar, [facility] [place] [facility] [address] [id number] [place] [address] 4432 Mar, [facility] [place] [facility] [address] [id number] [place] [address] 3666 Jan, [facility] [place] [facility] [address] [id number] [place] [address] 2573 Jan, [facility] [place] [facility] [address] [id number] [place] [address]- 3587 Jan, [facility] [place] [facility] [address] [id number] [place] [address] 8877 Jan, [facility] [place] [facility] [address] [id number] [place] [address] 7548 Jan, [facility] [place] [facility] [address] [id number] [place] [address] 6709 Jan, [facility] [place] [facility] [address] [id number] [place] [address] 6696 Dec, [facility] [place] [facility] [address] [id number] [place] [address] 0642 Dec, [facility] [place] [facility] [address] [id number] [place] [address] 0023 Dec, [facility] [place] [facility] [address] [id number] [place] [address]- 4650 Dec, [facility] [place] [facility] [address] [id number] [place] [address]- 8026 Dec, [facility] [place] [facility] [address] [id number] [place] [address]- 9688 Dec, [facility] [place] [facility] [address] [id number] [place] [address] October, [facility] [place] [facility] [address] [id number], [place] [address] October, [facility] [place] [facility] [address] [id number] [place] [address] 7814 October, [facility] [place] [facility] [address] [id number] [place] [address] 9790 October, [facility] [place] [facility] [address] [id number] [place] [address] 0243 October, [facility] [place] [facility] [address] [id number] [place] [address] 2496 October, [facility] [place] [facility] [address] [id number] [place] [address] 3521 October, [facility] [place] [facility] [address] [id number] [place] [address] 4683 October, [facility] [place] [facility] [address] [facility] [id number] [place] [address] 4689 Oct, [facility] [place] [facility] [address] [id number] [place] [address] 2521 Oct, [facility] [place] [facility] [address] [id number] [place] [address] 4068 Oct, [facility] [place] [facility] [address] [id number] [place] [address] 3765 Oct, [facility] [place] [facility] [address] [id number] [place] [address] 1372 Oct, [facility] [place] [facility] [address] [id number], [place] [address] Aug, [facility] [place] [facility] [address] [id number] [place] [address] 3913 Aug, [facility] [place] [facility] [address] [id number] [place] [address] 4098 Aug, [facility] [place] [facility] [address] [id number] [place] [address] 0524 Aug, [facility] [place] [facility] [address] [id number] [place] [address]40 07 Aug, 2013 [facility] [place] [facility] [address] [id number] [place] [address]- 9064 07 Aug, 2013 [facility] [place] [facility] [address] [id number] [place] [address] Jul, [facility] [place] [facility] [address] [id number] [place] [address] 7853 Jul, [facility] [place] [facility] [address] [id number] [place] [address] 3862 Jul, [facility] [place] [facility] [address] [id number] [place] [address] 5208 Jul, [facility] [place] [facility] [address] [id number] [place] [address] 7022 Jul, [facility] [place] [facility] [address] [id number] [place] [address] 4761 Jul, [facility] [place] [facility] [address] [id number] [place] [address] 7173 Jun, [facility] [place] [facility] [address] [id number] [place] [address]- 4972 Jun, [facility] [place] [facility] [address] [id number] [place] [address] 8318 Jun, [facility] [place] [facility] [address] [id number] [place] [address]- 2684 Jun, [facility] [place] [facility] [address] [id number] [place] [address]- 6775 Jun, [facility] [place] [facility] [address] [id number] [place] [address]- 4726 Jun, [facility] [place] [facility] [address] [id number] [place] [address] 3876 May, [facility] [place] [facility] [address] [id number] [place] [address] 1458 May, [facility] [place] [facility] [address] [id number] [place] [address] 7282 Apr, [facility] [place] [facility] [address] [id number] [place] [address] 3324 Apr, [facility] [place] [facility] [address] [id number] [place] [address]- 8064 Apr, [facility] [place] [facility] [address] [id number] [place] [address]- 3322 Apr, [facility] [place] [facility] [address] [id number] [place] [address]- 2528 Apr, [facility] [place] [facility] [address] [id number] [place] [address]- 3397 Apr, [facility] [place] [facility] [address] [id number] [place] [address]- 5787 Apr, [facility] [place] [facility] [address] [id number], [place] [address]- 3298 Apr, [facility] [place] [facility] [address] [id number] [place] [address]- 9656 Apr, [facility] [place] [facility] [address] [id number], [place] [address]- 4542 Apr, [facility] [place] [facility] [address] [id number], [place] [address]- 3501 Apr, [facility] [place] [facility] [address] [id number], [place] [address]- [address]77 23 Mar, 2013 [facility] [place] [facility] [address] [id number] [place] [address]- 0072 20 Mar, 2013 [facility] [place] [facility] [address] [id number], [place] [address] 9044 20 Mar, 2013 [facility] [place] [facility] [address] [id number] [place] [address]- 7562 14 Mar, 2012 [facility] [place] [facility] [address] [id number] [place] [address]- 6686 12 Mar, 2013 [facility] [address] [id number] [place] [address]- 0958 Mar, [facility] [address] [id number] [place] [address]- 0045 Mar, [facility] [address] [id number] [place] [address]- 7074 Jan, [facility] [address] [id number] [place] [address]- 3845 Jan, [facility] [address] [id number] [place] [address]- 5739 Jan, [facility] [address] [id number] [place] [address]- 2293 Jan, [facility] [address] [id number] [place] [address]- 4329 Jan, [facility] [address] [id number] [place] [address]- 8444 Jan, [facility] [address] [id number] [place] [address]- 5097 Jan, [facility] [address] [id number] [place] [address]- 6503 Dec, [facility] [place] [facility] [address] [id number] [place] [address]- 8232 Dec, [facility] [address] [id number] [place] [address]- 2242 Dec, [facility] [place] [facility] [address] [id number] [place] [address]- 4773 Dec, [facility] [place] [facility] [address] [id number] [place] [address]- 8518 Dec, [facility] [place] [facility] [address] [id number] [place] [address]- 7233 Dec, [facility] [address] [id number] [place] [address]- 7363 17 Oct, 2012 [facility] [address] [id number] [place] [address]- 2550 October, [facility] [address] [id number] [place] [address]- 0903 October, [facility] [address] [id number] [place] [address]- 2339 October, [facility] [address] [id number] [place] [address]- 7319 Oct, [facility] [address] [id number] [place] [address]- 4810 Oct, [facility] [address] [id number] [place] [address]- 6076 Aug, [facility] [address] [id number] [place] [address]- 3985 Aug, [facility] [address] [id number] [place] [address]- 7925 Aug, [facility] [address] [id number] [place] [address]- 2705 Aug, [facility] [address] [id number] [place] [address]- 4296 Aug, [facility] [address] [id number] [place] [address]- 2153 Aug, [facility] [address] [id number] [place] [address]- 7934 Aug, [facility] [place] [facility] [address] [id number] [place] [address]- 0166 Aug, [facility] [place] [facility] [address] [id number] [place] [address]- 1158 Aug, [facility] [id number], [place] [address] 4264 11 Aug, 2012 [facility] [id number] [address]- 5416 10 Aug, 2012 [facility] [id number], [place] [address] 2546 08 Aug, 2012 [facility] [id number], [place] [address]- 1146 Aug, [facility] [id number], [place] [address] 2545 Aug, [facility] [id number] [place] [address]- 5567 Jul, [facility] [id number], [place] [address]- 5222 Jul, [facility] [id number] [place] [address]- 1882 Jul, [facility] [id number], [place] [address]- 4986 Jul, [facility] [id number], [place] [address]- 5270 Jun, [facility] [id number], [place] [address]- 5103 Jun, [facility] [id number], [place] [address]- 7502 Jun, [facility] [address] [id number], [place] [address]- 2542 Jun, [facility] [id number] [address] May, [facility] [id number] [address] [address]26 May, IMMUNIZATIONS Vaccine Route Administration Date Status ARISTADA 882 MG/3.2 ML (PT'S OWN) Unknown Mar 16, 2018 Administered SOCIAL HISTORY Never Assessed REASON FOR VISIT kesha Aguilar MA PLAN OF CARE VITAL SIGNS MEDICATIONS Unknown Medications RESULTS No Results PROCEDURES Procedure Date Ordered Result Body Site ARISTADA 882 MG/3.2 ML (PT'S OWN) Mar 16, 2018 THER/PROPH/DIAG INJ, SC/IM Mar 16, 2018 INSTRUCTIONS MEDICATIONS ADMINISTERED No Known Medications [...]
--- OUTSIDE RECORDS SUMMARY | 2018-09-02 17:55 | XMS REPORT ---
Author Author AMARI HOWARD [facility] Address [address] [place] [address] Care Team Providers Care Fish Machine Feeder Name Role Phone AMARI HOWARD Unavailable PROBLEMS Type Condition ICD9-CM Code [id number] Code Onset Dates Condition Status SNOMED Code Problem 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 Active 12780657 Problem Depressive disorder, not elsewhere classified F32.9 Active 64633424 Problem Chronic posttraumatic stress disorder F43.12 Active 145844488 Problem Insomnia G47.00 Active 876218499 Problem Obesity E66.9 Active 759422465 Problem Other chronic pain G89.29 Active 45840130 Problem Fatty liver K76.0 Active 449173146 Problem Abuse, drug or alcohol F19.10 Active 49241000 Problem Panic disorder without agoraphobia F41.0 Active 46958776 Problem Panic disorder F41.0 Active 121876997 Problem Hypothyroid E03.9 Active 77591556 Problem BMI 50.0-59.9, adult Z68.43 Active 151930872 Problem Restless legs syndrome G25.81 Active 363160029 Problem Encounter for therapeutic drug level monitoring Z51.81 Active 441304902 Problem Neuropathy G62.9 Active 414531671 Problem 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 Active 25876124 Problem Tachycardia R00.0 Active 3240454 Problem Murmur R01.1 Active 004161772 Problem Orthostatic hypertension I10 Active 33862876 Problem Shortness of breath R06.02 Active 934835549 Problem Sleep apnea in adult G47.33 Active 94215632 Problem Tunnel vision, unspecified laterality H53.489 Active 637916330 Problem Undifferentiated schizophrenia F20.3 Active 751220354 ALLERGIES No Information ENCOUNTERS Encounter Location Date Diagnosis [facility] [address] [facility] [id number] [address] 18 Apr, 2018 [facility] [address] [place] [address] 17 Mar, 2018 Undifferentiated schizophrenia F20.3 [facility] [id number] [place] [address] 82832- 3741 Mar, [facility] [id number] [place] [address] 60882- 2971 Mar, Undifferentiated schizophrenia F20.3 [facility] [id number] [place] [address] 74352- 6468 Jan, [facility] [id number] [place] [address] 06050- 1803 Jan, Undifferentiated schizophrenia F20.3 [facility] [id number] [address] 83597- 3781 Jan, [facility] [id number] [place] [address] 93926- 6230 Jan, Undifferentiated schizophrenia F20.3 [facility] [id number] [address] 75077- 9748 Dec, [facility] [id number] [place] [address] 13020- 3267 Dec, [facility] [id number] [address] 76647- 8155 Dec, [facility] [address] [place] [address] 27070- 1798 Dec, Undifferentiated schizophrenia F20.3 ; 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 ; Chronic posttraumatic stress disorder F43.12 and BMI 50.0- 59.9, adult Z68.43 [facility] [id number] [place] [address] 10689- 5739 Dec, [facility] [id number] [place] [address] 08524- 1978 Dec, Undifferentiated schizophrenia F20.3 ; Insomnia G47.00 and Thyroid disorder E07.9 [facility] [id number] [place] [address] 48811- 1927 20 Dec, 2017 Undifferentiated schizophrenia F20.3 [facility] [id number] [place] [address] 26622- 1353 18 Dec, 2017 [facility] [id number] [place] [address] 93600- 9104 15 Dec, 2017 [facility] [id number] [place] [address] 91758- 2621 14 Dec, 2017 BMI 50.0-59.9, adult Z68.43 ; Undifferentiated schizophrenia F20.3 ; Panic disorder without agoraphobia F41.0 and Chronic posttraumatic stress disorder F43.12 [facility] [id number] [place] [address] 17002- 5606 04 Dec, 2017 [facility] [id number] [address] 46260- 6341 October, [facility] [id number] [place] [address] 75574- 8545 October, Pain in right shoulder M25.511 and Other chronic pain G89.29 [facility] [id number] [address] 12523- 2028 October, Hypothyroid E03.9 [facility] [address] [place] [address] 65490- 6143 Oct, Undifferentiated schizophrenia F20.3 [facility] [id number] [address] 99089- 2730 Oct, [facility] [address] [place] [address] 14632- 0153 Oct, [facility] [id number] [place] [address] 65366- 4079 Aug, Undifferentiated schizophrenia F20.3 [facility] [address] [address]- 9593 Aug, [facility] [id number] [place] [address] 06546- 4540 13 Aug, 2017 Undifferentiated schizophrenia F20.3 ; 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 ; Chronic posttraumatic stress disorder F43.12 and BMI 50.0- 59.9, adult Z68.43 [facility] [id number] [place] [address] 97577- 4331 05 Aug, 2017 [facility] [address] 33189- 7274 Aug, [facility] [id number] [place] [address] 20341- 4028 Aug, Undifferentiated schizophrenia F20.3 [facility] [id number] [address] 58997- 6811 Aug, Hypothyroid E03.9 [facility] [id number] [place] [address] 18527- 2696 Jul, Undifferentiated schizophrenia F20.3 [facility] [id number] [address] 04739- 4268 Jul, [facility] [id number] [place] [address] 72641- 7916 Jul, Undifferentiated schizophrenia F20.3 ; Chronic posttraumatic stress disorder F43.12 ; 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 and BMI 50.0-59.9, adult Z68.43 [facility] [id number] [place] [address] 84658- 4643 Jul, [facility] [id number] [place] [address] 86443- 6834 Jul, Acute pain of right shoulder M25.511 ; High risk medication use Z79.899 ; Needle stick injury W27.3XXA ; Hypothyroid E03.9 and BMI 50.0-59.9 , adult Z68.43 [facility] [address] [place] [address] 44429- 8876 Jun, Undifferentiated schizophrenia F20.3 [facility] [id number] [place] [address] 44081- 4264 14 Jun, 2017 Undifferentiated schizophrenia F20.3 ; Panic disorder without agoraphobia F41.0 ; Chronic posttraumatic stress disorder F43.12 and BMI 50.0-59.9, adult Z68.43 [facility] [id number] [place] [address] 18329- 7442 May, [facility] [id number] [address] 94785- 2116 May, [facility] [id number] [place] [address] 71856- 0950 May, Undifferentiated schizophrenia F20.3 [facility] [id number] [address] 42099- 9447 May, [facility] [id number] [address] 99916- 4047 May, [facility] [id number] [place] [address] 78526- 1821 15 May, 2017 Hypothyroid E03.9 [facility] [address] 97951- 7555 May, [facility] [id number] [address] 39794- 8922 10 May, 2017 [facility] [id number] [place] [address] 02676- 7688 07 May, 2017 Chronic posttraumatic stress disorder F43.12 ; 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 ; Undifferentiated schizophrenia F20.3 ; BMI 40.0-44.9, adult Z68.41 and Obesity E66.9 [facility] [id number] [place] [address] 95533- 4272 07 May, 2017 Shortness of breath R06.02 [facility] [id number] [address] 12327- 9044 May, [facility] [address] [address]- 7482 Apr, Undifferentiated schizophrenia F20.3 [facility] [id number] [address] 57895- 8318 Apr, [facility] [address] [place] [address] 07238- 0828 Apr, [facility] [id number] [place] [address] 36799- 6800 Mar, Undifferentiated schizophrenia F20.3 ; Panic disorder without agoraphobia F41.0 and Chronic posttraumatic stress disorder F43.12 [facility] [id number] [place] [address] 46283- 9682 Mar, Undifferentiated schizophrenia F20.3 [facility] [address] [place] [address] 24723- 4675 Mar, [facility] [id number] [place] [address] 73588- 1353 Mar, [facility] [address] [place] [address] 86769- 1701 Mar, [facility] [id number] [place] [address] 60982- 5677 Jan, Undifferentiated schizophrenia F20.3 [facility] [address] [place] [address] 44141- 0613 Jan, [facility] [address] [place] [address] 18561- 6506 Jan, [facility] [address] [address]- 9754 Jan, [facility] [place] [id number] [facility] [address] [id number] [id number] Dec, Needle stick injury W27.3XXA [facility] [address] [address]- 3368 Dec, Needle stick injury W27.3XXA [facility] [place] [facility] [address] [address]- 8433 Dec, Undifferentiated schizophrenia F20.3 [facility] [id number] [address]- 4634 Dec, [facility] [id number] [address]- 7918 Dec, [facility] [id number] [place] [address] 48739- 9851 Dec, Undifferentiated schizophrenia F20.3 ; 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 and Chronic posttraumatic stress disorder F43.12 [facility] [id number] [place] [address] 98913- 6179 Dec, [facility] [id number] [address] 93518- 4596 October, [facility] [id number] [place] [address] 93295- 2869 October, Undifferentiated schizophrenia F20.3 [facility] [address] [address]- 6019 October, [facility] [address] [place] [address]- 5811 October, [facility] [address] [address]- 9732 Oct, Undifferentiated schizophrenia F20.3 ; 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 ; Chronic posttraumatic stress disorder F43.12 and Obesity E66.9 [facility] [address] [address]- 8388 Oct, [facility] [address] [place] [address] 36913- 9677 Oct, [facility] [address] [address]- 0745 Aug, Undifferentiated schizophrenia F20.3 [facility] [address] [address]- 2323 17 Aug, 2016 [facility] [id number] [address] 69817- 9698 Aug, Muscle spasm M62.838 [facility] [id number] [place] [address] 83001- 8784 06 Aug, 2016 Undifferentiated schizophrenia F20.3 [facility] [id number] [place] [address] 51299- 6123 Aug, Undifferentiated schizophrenia F20.3 ; 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 ; Chronic posttraumatic stress disorder F43.12 ; High risk medication use Z79.899 and 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 [place] [id number] [place] [address] 27719- 4304 Aug, Undifferentiated schizophrenia F20.3 [facility] [id number] [place] [address] 31380- 6178 Aug, [place] [id number] [place] [address] 36355- 5685 14 Aug, 2016 Acute non-recurrent maxillary sinusitis J01.00 [place] [id number] [place] [address] 11785- 6820 10 Aug, 2016 [place] [id number] [place] [address] 38966- 2571 Aug, [facility] [id number] [address] 14354- 0852 Jul, Undifferentiated schizophrenia F20.3 [facility] [id number] [place] [address] 83646- 6869 Jul, Schizophrenia, undifferentiated F20.3 ; 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 ; Post-traumatic stress disorder F43.10 ; Panic disorder F41.0 and Depressive disorder, not elsewhere classified F32.9 [facility] [id number] [place] [address] 85537- 1455 Jul, [facility] [address] [place] [address] 11565- 7344 Jul, Schizophrenia, undifferentiated F20.3 ; 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 ; Post-traumatic stress disorder F43.10 ; Panic disorder F41.0 and Depressive disorder, not elsewhere classified F32.9 [facility] [id number] [place] [address] 70288- 3577 Jul, [facility] [id number] [place] [address] 09365- 3030 Jul, Undifferentiated schizophrenia F20.3 ; 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 ; 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 ; Obesity E66.9 and Chronic posttraumatic stress disorder F43.12 [facility] [id number] [place] [address] 00177- 1604 Jun, [facility] [id number] [address] 71932- 0611 Jun, [facility] [id number] [place] [address] 21556- 2771 Jun, Dental caries K02.9 [facility] [id number] [place] [address] 31630- 8104 Jun, Undifferentiated schizophrenia F20.3 [facility] [address] [address]- 2358 May, [facility] [id number] [place] [address] 23878- 9986 29 May, 2016 Undifferentiated schizophrenia F20.3 ; 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 and Chronic post-traumatic stress disorder (PTSD) F43.12 [facility] [address] [place] [address] 97857- 7016 May, [facility] [address] [address]- 9182 May, Undifferentiated schizophrenia F20.3 [place] [id number] [place] [address] 14199- 5699 10 May, 2016 [place] [address] 79544- 3455 07 May, 2016 Dental examination Z01.20 [facility] [id number] [place] [address] 57011- 6488 20 Apr, 2016 Undifferentiated schizophrenia F20.3 ; PTSD (post-traumatic stress disorder) F43.10 and Obesity E66.9 [place] [id number] [place] [address] 98379- 6993 18 Apr, 2016 [place] [address] 52439- 8439 15 Mar, 2016 [place] [address] 25711- 6279 09 Mar, 2016 [place] [address] 78526- 6812 Jan, Shortness of breath R06.02 and Bipolar disorder with psychotic features F31.9 [place] [address] 44818- 7962 Jan, [place] [facility] [id number] [place] [address] 43053- 9623 Jan, Increased intracranial pressure G93.2 ; Visual disturbance H53.9 and Bipolar II disorder F31.81 [place] [id number] [place] [address] 50466- 5639 Jan, [place] [id number] [place] [address] 40397- 8254 Jan, [place] [facility] [id number] [place] [address] 07810- 4700 Jan, [place] [id number] [place] [address] 96255- 9252 Jan, Acquired hypothyroidism E03.9 ; Depression F32.9 and Insomnia G47.00 [place] [id number] [place] [address] 47092- 7551 Jan, Exertional dyspnea R06.09 ; Heart palpitations R00.2 ; Hyperlipidemia, unspecified hyperlipidemia type E78.5 ; Hypothyroidism, unspecified type E03.9 and Hypokalemia E87.[address] 50457- 1366 Dec, PTSD (post-traumatic stress disorder) F43.10 ; Depression F32.9 ; Insomnia G47.00 and Bipolar disorder with psychotic features F31.[address] 60021- 9356 Dec, Increased intracranial pressure G93.[address] 45585- 8979 Dec, [address] 39827- 5714 Dec, Shortness of breath R06.[address] 66972- 3418 Dec, Visual disturbance H53.9 and Headache, unspecified headache type R51 [address] 64907- 6326 Dec, Insomnia G47.[address] 25454- 2362 Dec, Murmur R01.[address] 22007- 4612 Dec, Murmur R01.1 ; Tunnel vision, unspecified laterality H53.489 ; Orthostatic hypertension I10 ; Shortness of breath R06.02 and Tachycardia R00.0 [place] [id number] [place] [address] 78672- 5783 Dec, [address] 83456- 1285 Dec, Hypothyroid E03.9 and Bipolar 1 disorder F31.9 [facility] [address] [place] [address] 65008- 0724 Dec, Bipolar 1 disorder F31.9 [facility] [address] [address]- 6956 Dec, [facility] [id number] [place] [address] 74629- 7681 October, Acquired hypothyroidism E03.9 ; Depression F32.9 and Insomnia G47.00 [facility] [id number] [place] [address] 01929- 0142 October, [facility] [id number] [place] [address] 83009- 3542 October, Bipolar 1 disorder F31.9 ; PTSD (post-traumatic stress disorder) F43.10 and 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 [facility] [address] [place] [address] 35213- 2344 Oct, Bipolar 1 disorder F31.9 and Insomnia G47.00 [facility] [id number] [place] [address] 95144- 2460 Oct, [facility] [address] [place] [address] 57150- 4978 Oct, [facility] [id number] [place] [address] 54326- 4803 Aug, Hypothyroid E03.9 [facility] [address] [place] [address] 58759- 3644 Aug, Encounter for therapeutic drug level monitoring Z51.81 and 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 [facility] [address] [address]- 0436 Aug, Encounter for therapeutic drug level monitoring Z51.81 [facility] [id number] [place] [address] 56144- 2744 Aug, Acquired hypothyroidism E03.9 ; Leg pain M79.606 and Bipolar 1 disorder F31.9 [facility] [address] 80236- 3686 Aug, [facility] [address] 13559- 3622 Aug, [facility] [address] 04100- 4448 Jul, Thyroid disorder E07.9 [place] [address] 62783- 0975 Jul, Rash R21 ; Abnormal LFTs R94.5 ; Acquired hypothyroidism E03.9 ; Sleep apnea in adult G47.33 and Fatty liver K76.0 [place] [address] 27462- 2860 Jun, [facility] [id number] [place] [address] 67691- 6975 Jun, [facility] [address] 41700- 8299 Jun, Bipolar II disorder F31.81 and Social phobia, generalized F40.11 [place] [id number] [place] [address] 82619- 1339 Mar, Bipolar II disorder 296.89 and Social phobia 300.23 [facility] [id number] [place] [address] 43923- 9031 Dec, [facility] [address] 92608- 7242 Dec, [facility] [address] 7[address] Dec, Bipolar II disorder in partial or unspecified remission 296.89 and Social phobia, generalized 300.23 [facility] [address] [place] [address] 30 Oct, 2014 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 [facility] [address] [id number] [place] [address] 14 Oct, 2014 [facility] [place] [facility] [address] [id number] [place] [address] Oct, [facility] [address] [id number] [place] [address] Aug, [facility] [place] [facility] [address] [id number] [place] [address] Aug, [facility] [place] [facility] [address] [id number] [place] [address] Aug, [facility] [place] [facility] [address] [id number] [place] [address] Aug, [facility] [place] [facility] [address] [id number] [place] [address] Aug, [facility] [place] [facility] [address] [id number] [place] [address] Aug, [facility] [place] [facility] [address] [id number] [place] [address] Aug, [facility] [place] [facility] [address] [id number] [place] [address] Aug, [facility] [place] [facility] [address] [id number] [place] [address] Jul, [facility] [place] [facility] [address] [id number] [place] [address] Jul, [facility] [place] [facility] [address] [id number] [place] [address] Jul, [facility] [place] [facility] [address] [id number] [place] [address] Jul, [facility] [place] [facility] [address] [id number] [place] [address]- [address]85 Jul, [facility] [place] [facility] [address] [id number] [place] [address] Jul, [facility] [place] [facility] [address] [id number] [place] [address] Jun, [facility] [place] [facility] [address] [id number] [place] [address] 2005 Jun, [facility] [place] [facility] [address] [id number] [place] [address] Jun, [facility] [place] [facility] [address] [id number] [place] [address] Jun, [facility] [place] [facility] [address] [id number] [place] [address] Jun, [facility] [place] [facility] [address] [address] [id number] [place] [address] Jun, [facility] [place] [facility] [address] [id number] [place] [address] Jun, [facility] [place] [facility] [address] [id number] [place] [address] 119[address] Jun, [facility] [place] [facility] [address] [id number] [place] [address] Jun, [facility] [place] [facility] [address] [id number] [place] [address]184 Jun, [facility] [place] [facility] [address] [id number] [place] [address] Jun, [facility] [place] [facility] [address] [id number] [place] [address] Jun, [facility] [place] [facility] [address] [id number] [place] [address] 9588 Jun, [facility] [place] [facility] [address] [id number] [place] [address] Jun, [facility] [place] [facility] [address] [id number] [place] [address] 289[address] Jun, [facility] [place] [facility] [address] [id number] [place] [address] 1558 Jun, [facility] [place] [facility] [address] [id number] [place] [address] May, [facility] [place] [facility] [address] [id number] [place] [address] 3502 May, [facility] [place] [facility] [address] [id number] [place] [address] 3846 May, [facility] [place] [facility] [address] [id number] [place] [address]17 May, [facility] [place] [facility] [address] [id number] [place] [address] 5298 May, [facility] [place] [facility] [address] [id number] [place] [address] 9371 May, [facility] [place] [facility] [address] [id number] [place] [address] 69[address] Apr, [facility] [place] [facility] [address] [id number] [place] [address] 3004 Apr, [facility] [place] [facility] [address] [facility] [id number] [place] [address] Apr, [facility] [place] [facility] [address] [id number] [place] [address]- 9399 Apr, [facility] [place] [facility] [address] [id number] [place] [address] Apr, [facility] [place] [facility] [address] [id number] [place] [address] 3635 Apr, [facility] [place] [facility] [address] [id number] [place] [address] Mar, [facility] [place] [facility] [address] [id number] [place] [address] 1104 Mar, [facility] [place] [facility] [address] [id number] [place] [address]99 Mar, [facility] [place] [facility] [address] [id number] [place] [address] 3684 Mar, [facility] [place] [facility] [address] [id number] [place] [address] 267[address] Jan, [facility] [place] [facility] [address] [id number] [place] [address] 3765 Jan, [facility] [place] [facility] [address] [id number] [place] [address] 9660 Jan, [facility] [place] [facility] [address] [id number] [place] [address] 9339 Jan, [facility] [place] [facility] [address] [id number] [place] [address] 6501 Jan, [facility] [place] [facility] [address] [id number] [place] [address]- 5[address] Jan, [facility] [place] [facility] [address] [id number] [place] [address]116 Dec, [facility] [place] [facility] [address] [id number] [place] [address] 6272 Dec, [facility] [place] [facility] [address] [id number] [place] [address]- 6952 Dec, [facility] [place] [facility] [address] [id number] [place] [address] 5571 Dec, [facility] [place] [facility] [address] [id number] [place] [address] 8849 Dec, [facility] [place] [facility] [address] [id number] [place] [address] 7766 Dec, [facility] [place] [facility] [address] [id number] [place] [address]- 1468 October, [facility] [place] [facility] [address] [id number] [place] [address] 5396 October, [facility] [place] [facility] [address] [id number] [place] [address]- 7085 October, [facility] [place] [facility] [address] [id number] [place] October, [facility] [place] [facility] [address] [id number] [place] [address]- 2360 October, [facility] [place] [facility] [address] [id number] [place] [address] 9608 October, [facility] [place] [facility] [address] [id number] [place] [address]- 8869 October, [facility] [place] [facility] [address] [id number] [place] [address] 2764 October, [facility] [place] [facility] [address] [id number] [place] [address]- 7545 Oct, [facility] [place] [facility] [address] [id number] [place] [address] 3440 Oct, [facility] [place] [facility] [address] [id number] [place] [address]- 9022 Oct, [facility] [place] [facility] [address] [id number] [place] [address]- 9429 Oct, [facility] [place] [facility] [address] [id number] [place] [address]- 1547 Oct, [facility] [place] [facility] [address] [id number] [place] [address]- 4479 Aug, [facility] [place] [facility] [address] [id number] [place] [address]- 1543 Aug, [facility] [place] [facility] [address] [id number] [place] [address]- 8076 Aug, [facility] [place] [facility] [address] [id number] [place] [address]- 3988 Aug, [facility] [place] [facility] [address] [id number] [place] [address]- 6798 07 Aug, 2013 [facility] [address] [id number] [place] [address]- 9113 07 Aug, 2013 [facility] [address] [id number] [place] [address]133 Jul, [facility] [address] [id number] [place] [address]- 0613 Jul, [facility] [address] [id number] [place] [address] 3294 Jul, [facility] [address] [id number] [place] [address]- 7426 Jul, [facility] [address] [id number] [place] [address]- 3787 Jul, [facility] [address] [id number] [place] [address]- 6135 Jul, [facility] [address] [id number] [place] [address]- 3288 Jun, [facility] [address] [id number] [place] [address]- 4782 Jun, [facility] [address] [id number] [place] [address]- 2160 Jun, [facility] [place] [facility] [address] [id number] [place] [address]- 5311 Jun, [facility] [address] [id number] [place] [address]- 3639 Jun, [facility] [place] [facility] [address] [id number] [place] [address]- 8256 Jun, [facility] [place] [facility] [address] [id number] [place] [address]- 2546 May, [facility] [place] [facility] [address] [id number] [place] [address]- 9185 May, [facility] [place] [facility] [address] [id number] [place] [address]- 6316 Apr, [facility] [place] [facility] [address] [id number] [place] [address]- 0630 Apr, [facility] [place] [facility] [address] [id number] [place] [address]- 5103 Apr, [facility] [place] [facility] [address] [id number] [place] [address]- 8075 Apr, [facility] [place] [facility] [address] [id number] [place] [address]- 5764 Apr, [facility] [place] [facility] [address] [id number] [place] [address]- 8094 Apr, [facility] [place] [facility] [address] [id number] [place] [address]- 9650 Apr, [facility] [place] [facility] [address] [id number] [place] [address]- 5951 Apr, [facility] [place] [facility] [address] [id number] [place] [address]- 0166 Apr, [facility] [place] [facility] [address] [id number] [place] [address]- 3965 Apr, [facility] [place] [facility] [address] [id number] [place] [address]- 5219 Apr, [facility] [place] [facility] [address] [id number] [place] [address]- 5303 23 Mar, 2013 [facility] [place] [facility] [address] [id number] [place] [address]- 3651 20 Mar, 2013 [facility] [place] [facility] [address] [id number] [place] [address]- 0595 20 Mar, 2013 [facility] [place] [facility] [address] [id number] [place] [address]- 5849 14 Mar, 2013 [facility] [place] [facility] [address] [id number] [place] [address]- 3987 Mar, [facility] [place] [facility] [address] [id number] [place] [address]- 9011 Mar, [facility] [place] [facility] [address] [id number] [place] [address]- 3209 Mar, [facility] [place] [facility] [address] [id number] [place] [address]- 8723 Jan, [facility] [place] [facility] [address] [id number] [place] [address]- 3513 Jan, [facility] [place] [facility] [address] [id number] [place] [address]- 4847 Jan, [facility] [place] [facility] [address] [id number] [place] [address]- 3506 Jan, [facility] [place] [facility] [address] [id number] [place] [address]- 5900 Jan, [facility] [place] [facility] [address] [id number] [place] [address]- 8273 Jan, [facility] [place] [facility] [address] [id number] [place] [address]- 1156 Jan, [facility] [place] [facility] [address] [id number] [place] [address]- 9390 Dec, [facility] [place] [facility] [address] [id number] [place] [address]- 9961 Dec, [facility] [place] [facility] [address] [id number] [place] [address]- 9896 Dec, [facility] [place] [facility] [address] [id number] [place] [address]- 9094 Dec, [facility] [place] [facility] [address] [id number] [place] [address]- 0878 Dec, [facility] [place] [facility] [address] [id number] [place] [address]- 2114 Dec, [facility] [place] [facility] [address] [id number] [place] [address]- 8719 17 Oct, 2012 [facility] [address] [id number] [place] [address]- 4958 October, [facility] [address] [id number] [place] [address]- 8205 October, [facility] [address] [id number] [place] [address]- 2152 October, [facility] [address] [id number] [place] [address]- 6579 Oct, [facility] [address] [id number] [place] [address]- 4506 Oct, [facility] [address] [id number] [place] [address]- 5537 Aug, [facility] [address] [id number] [place] [address]- 9877 Aug, [facility] [address] [id number] [place] [address]- 7544 Aug, [facility] [address] [id number] [place] [address]- 2503 Aug, [facility] [address] [id number] [place] [address]- 6250 Aug, [facility] [address] [id number] [place] [address]- 2809 Aug, [facility] [address] [id number] [place] [address]- 1819 Aug, [facility] [address] [id number] [place] [address]- 8307 Aug, [facility] [address] [id number] [place] [address]- 1861 Aug, [facility] [address] [id number] [place] [address]- 7785 Aug, [facility] [id number] [place] [address]- 3381 Aug, [facility] [address] [id number] [place] [address]- 4206 Aug, [facility] [id number] [place] [address]- 1386 Aug, [facility] [id number] [place] [address]- 7631 Aug, [facility] [id number] [place] [address] Jul, [facility] [id number] [place] [address]- 4453 Jul, [facility] [id number] [place] [address]- 2913 Jul, [facility] [id number] [place] [address]- 2549 Jul, [facility] [id number] [place] [address]- 8940 Jun, [facility] [id number] [place] [address]- 6096 Jun, [facility] [id number] [place] [address]- 5615 Jun, [facility] [id number] [place] [address]- 5057 Jun, [facility] [id number] [place] [address] May, [facility] [id number] [place] [address] May, IMMUNIZATIONS No Known Immunizations SOCIAL HISTORY Never Assessed REASON FOR VISIT Repository Medication PLAN OF CARE VITAL SIGNS MEDICATIONS Medication Instructions Dosage Frequency Start Date End Date Duration Status Ten Sleep Carbonate 300 MG Orally 2 times a day (For Mood) 1 tablet in the morning, 2 tablets at bedtime 30 days Active HydrOXYzine HCl 25 MG Orally two times per day for anxiety 1 tablet as needed Dec, 30 days Active RESULTS No Results PROCEDURES [...]
--- OUTSIDE RECORDS SUMMARY | 2018-09-02 17:55 | XMS REPORT ---
Author Author DIGNA GUERRERO [facility] Address [address] [place] [address] Care Team Providers Care Lead Producer Name Role Phone DIGNA GUERRERO Unavailable PROBLEMS Type Condition ICD9-CM Code [id number] Code Onset Dates Condition Status SNOMED Code Problem 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 Active 25306763 Problem Depressive disorder, not elsewhere classified F32.9 Active 76445995 Problem Chronic posttraumatic stress disorder F43.12 Active 667124588 Problem Insomnia G47.00 Active 689582843 Problem Obesity E66.9 Active 719066180 Problem Other chronic pain G89.29 Active 90927890 Problem Fatty liver K76.0 Active 719342573 Problem Abuse, drug or alcohol F19.10 Active 58242406 Problem Panic disorder without agoraphobia F41.0 Active 96747536 Problem Panic disorder F41.0 Active 498591582 Problem Hypothyroid E03.9 Active 49665334 Problem BMI 50.0-59.9, adult Z68.43 Active 055185354 Problem Restless legs syndrome G25.81 Active 871356243 Problem Encounter for therapeutic drug level monitoring Z51.81 Active 919027810 Problem Neuropathy G62.9 Active 023308960 Problem 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 Active 00411316 Problem Tachycardia R00.0 Active 9022884 Problem Murmur R01.1 Active 018099008 Problem Orthostatic hypertension I10 Active 66940909 Problem Shortness of breath R06.02 Active 541981586 Problem Sleep apnea in adult G47.33 Active 15970289 Problem Tunnel vision, unspecified laterality H53.489 Active 391248445 Problem Undifferentiated schizophrenia F20.3 Active 854192972 ALLERGIES No Information ENCOUNTERS Encounter Location Date Diagnosis [facility] [id number], [place] [address] 6[address] 18 Apr, 2018 [facility] [address], [place] [address] 6[address] 17 Mar, 2018 Undifferentiated schizophrenia F20.3 [facility] [id number] [place] [address] 95737- 5629 Mar, [facility] [id number] [place] [address] 70117- 7308 Mar, Undifferentiated schizophrenia F20.3 [facility] [id number] [place] [address] 62954- 6508 Jan, [facility] [id number] [place] [address] 95218- 5017 Jan, Undifferentiated schizophrenia F20.3 [facility] [id number] [place] [address] 17785- 5199 Jan, [facility] [id number] [place] [address] 70917- 9447 Jan, Undifferentiated schizophrenia F20.3 [facility] [id number] [place] [address] 11877- 8530 Dec, [facility] [id number] [place] [address] 14674- 6656 Dec, [facility] [id number] [place] [address] 17385- 2462 Dec, [facility] [address] [place] [address] 71135- 3748 Dec, Undifferentiated schizophrenia F20.3 ; 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 ; Chronic posttraumatic stress disorder F43.12 and BMI 50.0- 59.9, adult Z68.43 [facility] [id number] [place] [address] 96269- 3148 Dec, [facility] [id number] [place] [address] 99266- 9297 Dec, Undifferentiated schizophrenia F20.3 ; Insomnia G47.00 and Thyroid disorder E07.9 [facility] [id number] [place] [address] 19660- 4585 20 Dec, 2017 Undifferentiated schizophrenia F20.3 [facility] [id number] [place] [address] 91138- 7640 18 Dec, 2017 [facility] [id number] [place] [address] 86036- 1731 15 Dec, 2017 [facility] [id number] [place] [address] 51209- 8065 14 Dec, 2017 BMI 50.0-59.9, adult Z68.43 ; Undifferentiated schizophrenia F20.3 ; Panic disorder without agoraphobia F41.0 and Chronic posttraumatic stress disorder F43.12 [facility] [id number] [place] [address] 62637- 3308 04 Dec, 2017 [facility] [id number] [place] [address] 88458- 5917 October, [facility] [id number] [place] [address] 49655- 5466 October, Pain in right shoulder M25.511 and Other chronic pain G89.29 [facility] [id number] [place] [address] 74387- 5050 October, Hypothyroid E03.9 [facility] [address] [place] [address] 91059- 4894 Oct, Undifferentiated schizophrenia F20.3 [facility] [id number] [place] [address] 69347- 9482 Oct, [facility] [address] [place] [address] 36425- 4971 Oct, [facility] [id number] [place] [address] 95860- 3797 Aug, Undifferentiated schizophrenia F20.3 [facility] [address] [address]- 7778 Aug, [facility] [address] [place] [address] 79784- 3141 13 Aug, 2017 Undifferentiated schizophrenia F20.3 ; 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 ; Chronic posttraumatic stress disorder F43.12 and BMI 50.0- 59.9, adult Z68.43 [facility] [id number] [place] [address] 46321- 5946 05 Aug, 2017 [facility] [address] 16334- 8956 Aug, [facility] [id number] [place] [address] 93635- 0332 Aug, Undifferentiated schizophrenia F20.3 [facility] [id number] [place] [address] 25208- 6391 Aug, Hypothyroid E03.9 [facility] [id number] [place] [address] 84174- 7822 Jul, Undifferentiated schizophrenia F20.3 [facility] [id number] [place] [address] 46113- 9018 Jul, [facility] [id number] [place] [address] 24420- 1559 Jul, Undifferentiated schizophrenia F20.3 ; Chronic posttraumatic stress disorder F43.12 ; 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 and BMI 50.0-59.9, adult Z68.43 [facility] [address] [place] [address] 06836- 6017 Jul, [facility] [address] [place] [address] 00109- 4707 Jul, Acute pain of right shoulder M25.511 ; High risk medication use Z79.899 ; Needle stick injury W27.3XXA ; Hypothyroid E03.9 and BMI 50.0-59.9 , adult Z68.43 [facility] [address] [place] [address] 46352- 7854 Jun, Undifferentiated schizophrenia F20.3 [facility] [id number] [place] [address] 99296- 8696 14 Jun, 2017 Undifferentiated schizophrenia F20.3 ; Panic disorder without agoraphobia F41.0 ; Chronic posttraumatic stress disorder F43.12 and BMI 50.0-59.9, adult Z68.43 [facility] [id number] [place] [address] 84097- 0166 May, [facility] [id number] [place] [address] 83515- 1483 May, [facility] [id number] [place] [address] 29640- 1284 May, Undifferentiated schizophrenia F20.3 [facility] [id number] [place] [address] 50728- 2351 May, [facility] [id number] [place] [address] 81258- 4089 May, [facility] [id number] [place] [address] 30832- 0655 15 May, 2017 Hypothyroid E03.9 [facility] [address] 19260- 3592 May, [facility] [id number] [place] [address] 31446- 1245 10 May, 2017 [facility] [id number] [place] [address] 52443- 8818 07 May, 2017 Chronic posttraumatic stress disorder F43.12 ; 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 ; Undifferentiated schizophrenia F20.3 ; BMI 40.0-44.9, adult Z68.41 and Obesity E66.9 [facility] [id number] [place] [address] 44595- 1634 07 May, 2017 Shortness of breath R06.02 [facility] [id number] [place] [address] 85106- 9081 May, [facility] [address], [place] [address]- 1907 Apr, Undifferentiated schizophrenia F20.3 [facility] [id number] [place] [address] 50557- 8339 Apr, [facility] [address] [place] [address] 02941- 8578 Apr, [facility] [id number] [place] [address] 55682- 0312 Mar, Undifferentiated schizophrenia F20.3 ; Panic disorder without agoraphobia F41.0 and Chronic posttraumatic stress disorder F43.12 [facility] [id number] [place] [address] 41567- 3894 Mar, Undifferentiated schizophrenia F20.3 [facility] [address] [place] [address] 53984- 4969 Mar, [facility] [id number] [place] [address] 27187- 0712 Mar, [facility] [address] [place] [address] 43740- 7905 Mar, [facility] [id number] [place] [address] 92303- 8411 Jan, Undifferentiated schizophrenia F20.3 [facility] [address] [place] [address] 72031- 8017 Jan, [facility] [address] [place] [address] 90869- 8882 Jan, [facility] [address], [place] [address]- 1463 Jan, [facility] [address] [facility] [id number] [id number] Dec, Needle stick injury W27.3XXA [facility] [address], [place] [address]- 5006 Dec, Needle stick injury W27.3XXA [facility] [place] [facility] [address], [place] [address]- 9111 Dec, Undifferentiated schizophrenia F20.3 [facility] [address] [address]- 8757 Dec, [facility] [id number] [address]- 2942 Dec, [facility] [id number] [place] [address] 04849- 5696 Dec, Undifferentiated schizophrenia F20.3 ; 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 and Chronic posttraumatic stress disorder F43.12 [facility] [id number] [place] [address] 07243- 4063 Dec, [facility] [id number] [place] [address] 55833- 3572 October, [facility] [id number] [place] [address] 02809- 6956 October, Undifferentiated schizophrenia F20.3 [facility] [address], [place] [address]- 7918 October, [facility] [address], [place] [address]- 6480 October, [facility] [address], [place] [address]- 4591 Oct, Undifferentiated schizophrenia F20.3 ; 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 ; Chronic posttraumatic stress disorder F43.12 and Obesity E66.9 [facility] [address], [place] [address]- 7956 Oct, [facility] [address] [place] [address] 89907- 4791 Oct, [facility] [address], [place] [address]- 1280 Aug, Undifferentiated schizophrenia F20.3 [facility] [address], [place] [address]- 3712 17 Aug, 2016 [facility] [id number] [place] [address] 81867- 9238 Aug, Muscle spasm M62.838 [facility] [id number] [place] [address] 13885- 1911 06 Aug, 2016 Undifferentiated schizophrenia F20.3 [facility] [id number] [place] [address] 03659- 7427 Aug, Undifferentiated schizophrenia F20.3 ; 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 ; Chronic posttraumatic stress disorder F43.12 ; High risk medication use Z79.899 and 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 [address] [facility] [id number] [place] [address] 64806- 7377 Aug, Undifferentiated schizophrenia F20.3 [facility] [id number] [place] [address] 75346- 0712 Aug, [facility] [id number] [place] [address] 80407- 5851 14 Aug, 2016 Acute non-recurrent maxillary sinusitis J01.00 [address] [address] [place] [address] 83293- 5305 10 Aug, 2016 [place] [facility] [id number] [place] [address] 65633- 9063 Aug, [facility] [id number] [place] [address] 79976- 2463 Jul, Undifferentiated schizophrenia F20.3 [facility] [id number] [place] [address] 89050- 5050 Jul, Schizophrenia, undifferentiated F20.3 ; 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 ; Post-traumatic stress disorder F43.10 ; Panic disorder F41.0 and Depressive disorder, not elsewhere classified F32.9 [facility] [id number] [place] [address] 34967- 2591 Jul, [facility] [address] [place] [address] 99056- 3400 Jul, Schizophrenia, undifferentiated F20.3 ; 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 ; Post-traumatic stress disorder F43.10 ; Panic disorder F41.0 and Depressive disorder, not elsewhere classified F32.9 [facility] [id number] [place] [address] 95188- 5346 Jul, [facility] [id number] [place] [address] 52087- 0592 Jul, Undifferentiated schizophrenia F20.3 ; 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 ; 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 ; Obesity E66.9 and Chronic posttraumatic stress disorder F43.12 [facility] [id number] [place] [address] 66275- 7602 Jun, [facility] [id number] [place] [address] 71252- 9383 Jun, [facility] [id number] [place] [address] 98852- 1543 Jun, Dental caries K02.9 [facility] [id number] [place] [address] 75808- 4839 Jun, Undifferentiated schizophrenia F20.3 [facility] [address], [place] [address]- 6144 May, [facility] [id number] [place] [address] 44284- 5215 29 May, 2016 Undifferentiated schizophrenia F20.3 ; 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 and Chronic post-traumatic stress disorder (PTSD) F43.12 [facility] [address] [place] [address] 19968- 6502 May, [facility] [address], [place] [address]- 3012 May, Undifferentiated schizophrenia F20.3 [address] [facility] [id number] [place] [address] 46606- 5286 10 May, 2016 [address] [facility] [address] 43474- 3467 07 May, 2016 Dental examination Z01.20 [facility] [id number] [place] [address] 89848- 6465 20 Apr, 2016 Undifferentiated schizophrenia F20.3 ; PTSD (post-traumatic stress disorder) F43.10 and Obesity E66.9 [facility] [id number] [place] [address] 97005- 8816 18 Apr, 2016 [place] [facility] [address] 61637- 1755 15 Mar, 2016 [place] [address] 11511- 1872 09 Mar, 2016 [place] [address] 53577- 5348 Jan, Shortness of breath R06.02 and Bipolar disorder with psychotic features F31.9 [facility] [address] 42060- 1340 Jan, [facility] [id number] [place] [address] 90432- 9247 Jan, Increased intracranial pressure G93.2 ; Visual disturbance H53.9 and Bipolar II disorder F31.81 [place] [facility] [id number] [place] [address] 02838- 5432 Jan, [place] [id number] [place] [address] 06686- 4247 Jan, [facility] [id number] [place] [address] 49108- 2084 Jan, [facility] [id number] [place] [address] 55890- 0098 Jan, Acquired hypothyroidism E03.9 ; Depression F32.9 and Insomnia G47.00 [id number] [place] [address] 61634- 3620 Jan, Exertional dyspnea R06.09 ; Heart palpitations R00.2 ; Hyperlipidemia, unspecified hyperlipidemia type E78.5 ; Hypothyroidism, unspecified type E03.9 and Hypokalemia E87.[address] 19618- 2157 Dec, PTSD (post-traumatic stress disorder) F43.10 ; Depression F32.9 ; Insomnia G47.00 and Bipolar disorder with psychotic features F31.[address] 72161- 5347 Dec, Increased intracranial pressure G93.[address] 30779- 5273 Dec, [address] 67629- 5182 Dec, Shortness of breath R06.[address] 66162- 2234 Dec, Visual disturbance H53.9 and Headache, unspecified headache type R51 [address] 38827- 2129 Dec, Insomnia G47.[address] 62464- 1858 Dec, Murmur R01.[address] 82016- 5333 Dec, Murmur R01.1 ; Tunnel vision, unspecified laterality H53.489 ; Orthostatic hypertension I10 ; Shortness of breath R06.02 and Tachycardia R00.0 [id number] [place] [address] 61403- 5799 Dec, [address] 89207- 6035 Dec, Hypothyroid E03.9 and Bipolar 1 disorder F31.9 [facility] [address] [place] [address] 66090- 0013 Dec, Bipolar 1 disorder F31.9 [facility] [address], [place] [address]- 5568 Dec, [facility] [id number] [place] [address] 83583- 5861 October, Acquired hypothyroidism E03.9 ; Depression F32.9 and Insomnia G47.00 [facility] [id number] [place] [address] 74506- 8782 October, [facility] [id number] [place] [address] 20489- 7439 October, Bipolar 1 disorder F31.9 ; PTSD (post-traumatic stress disorder) F43.10 and 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 [facility] [address] [place] [address] 35259- 4771 Oct, Bipolar 1 disorder F31.9 and Insomnia G47.00 [facility] [id number] [place] [address] 02266- 5571 Oct, [facility] [address] [place] [address] 20738- 2696 Oct, [facility] [address] [place] [address] 20389- 2676 Aug, Hypothyroid E03.9 [facility] [address] [place] [address] 90152- 1789 Aug, Encounter for therapeutic drug level monitoring Z51.81 and Other long chain beamer (current) drug therapy Z79.899 [facility] [address] [address]- 5405 Aug, Encounter for therapeutic drug level monitoring Z51.81 [facility] [id number] [place] [address] 72601- 6076 Aug, Acquired hypothyroidism E03.9 ; Leg pain M79.606 and Bipolar 1 disorder F31.9 [facility] [address] 39222- 4102 Aug, [facility] [address] 45761- 5481 Aug, [facility] [address] 37731- 9976 Jul, Thyroid disorder E07.9 [place] [address] 70939- 0154 Jul, Rash R21 ; Abnormal LFTs R94.5 ; Acquired hypothyroidism E03.9 ; Sleep apnea in adult G47.33 and Fatty liver K76.0 [place] [address] 99526- 7190 Jun, [facility] [id number] [place] [address] 70443- 4783 Jun, [facility] [address] 30768- 0861 Jun, Bipolar II disorder F31.81 and Social phobia, generalized F40.11 [place] [id number] [place] [address] 72883- 7576 Mar, Bipolar II disorder 296.89 and Social phobia 300.23 [facility] [id number] [place] [address] 97809- 1370 Dec, [facility] [address] 40960- 8085 Dec, [facility] [address] 52076- 8509 Dec, Bipolar II disorder in partial or unspecified remission 296.89 and Social phobia, generalized 300.23 [facility] [address] [place] [address]- 5831 30 Oct, 2014 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 [facility] [address] [id number] [place] [address]- 2675 14 Oct, 2014 [facility] [place] [facility] [address] [id number] [place] [address]- 7786 Oct, [facility] [address] [id number] [place] [address]- 4512 Aug, [facility] [place] [facility] [address] [id number] [place] [address] Aug, [facility] [place] [facility] [address] [id number] [place] [address] Aug, [facility] [place] [facility] [address] [id number] [place] [address] Aug, [facility] [place] [facility] [address] [id number] [place] [address] Aug, [facility] [place] [facility] [address] [id number] [place] [address] Aug, [facility] [place] [facility] [address] [id number] [place] [address] Aug, [facility] [place] [facility] [address] [id number] [place] [address] Aug, [facility] [place] [facility] [address] [id number] [place] [address] Jul, [facility] [place] [facility] [address] [id number] [place] [address] Jul, [facility] [place] [facility] [address] [id number] [place] [address] Jul, [facility] [place] [facility] [address] [id number] [place] [address] Jul, [facility] [place] [facility] [address] [id number] [place] [address] Jul, [facility] [place] [facility] [address] [id number] [place] [address] Jul, [facility] [place] [facility] [address] [id number] [place] [address] Jun, [facility] [place] [facility] [address] [id number] [place] Jun, [facility] [place] [facility] [address] [id number] [place] [address] Jun, [facility] [place] [facility] [address] [id number] [place] [address] Jun, [facility] [place] [facility] [address] [id number] [place] [address] Jun, [facility] [facility] [address] [id number] [place] [address] Jun, [facility] [place] [facility] [address] [id number] [place] [address] Jun, [facility] [place] [facility] [address] [id number] [place] [address] Jun, [facility] [place] [facility] [address] [id number] [place] [address] Jun, [facility] [place] [facility] [address] [id number] [place] [address] 69[address] Jun, [facility] [place] [facility] [address] [id number], [place] [address] Jun, [facility] [place] [facility] [address] [id number] [place] [address] Jun, [facility] [place] [facility] [address] [id number] [place] [address] 3904 Jun, [facility] [place] [facility] [address] [id number] [place] [address] Jun, [facility] [place] [facility] [address] [id number] [place] [address] 56[address] Jun, [facility] [place] [facility] [address] [id number] [place] [address]- [address] Jun, [facility] [place] [facility] [address] [id number] [place] [address] May, [facility] [place] [facility] [address] [id number] [place] [address] May, [facility] [place] [facility] [address] [id number] [place] [address]- 50[address] May, [facility] [place] [facility] [address] [id number] [place] [address]- 0815 May, [facility] [place] [facility] [address] [id number] [place] [address]- 0621 May, [facility] [place] [facility] [address] [id number] [place] [address]- 9967 May, [facility] [place] [facility] [address] [id number] [place] [address]- 3[address] Apr, [facility] [place] [facility] [address] [id number] [place] [address] 3645 Apr, [facility] [place] [facility] [address] [facility] [id number] [place] [address]- 6[address] Apr, [facility] [place] [facility] [address] [id number] [place] [address]- 7198 Apr, [facility] [place] [facility] [address] [id number], [place] [address] Apr, [facility] [place] [facility] [address] [id number] [place] [address]- 4408 Apr, [facility] [place] [facility] [address] [id number] [place] [address] Mar, [facility] [place] [facility] [address] [id number] [place] [address]- 0061 Mar, [facility] [place] [facility] [address] [id number] [place] [address]- 6240 Mar, [facility] [place] [facility] [address] [id number] [place] [address]- 7283 Mar, [facility] [place] [facility] [address] [id number] [place] [address]- 0925 Jan, [facility] [place] [facility] [address] [id number] [place] [address]- 4[address] Jan, [facility] [place] [facility] [address] [id number] [place] [address] Jan, [facility] [place] [facility] [address] [id number] [place] [address]- 3437 Jan, [facility] [place] [facility] [address] [id number] [place] [address]- 8661 Jan, [facility] [place] [facility] [address] [id number] [place] [address]- 8017 Jan, [facility] [place] [address] [id number] [place] [address]- 0544 Dec, [facility] [address] [id number] [place] [address]- 6629 Dec, [facility] [address] [id number] [place] [address] 1971 Dec, [facility] [address] [id number] [place] [address]- 1346 Dec, [facility] [address] [id number] [place] [address]- 7086 Dec, [facility] [place] [facility] [address] [id number] [place] [address]- 0157 Dec, [facility] [place] [facility] [address] [id number] [place] [address]- 6565 October, [facility] [place] [address] [id number] [place] [address]- 0741 October, [facility] [place] [facility] [address] [id number] [place] [address]- 7452 October, [facility] [place] [facility] [address] [id number] [place] [address] October, [facility] [address] [id number] [place] [address]- 5963 October, [facility] [address] [id number] [place] [address]- 1336 October, [facility] [address] [id number] [place] [address]- 4007 October, [facility] [address] [id number] [place] [address]- 7720 October, [facility] [address] [id number] [place] [address]- 7764 Oct, [facility] [address] [id number] [place] [address]- 0897 Oct, [facility] [address] [id number] [place] [address]- 1092 Oct, [facility] [address] [id number] [place] [address]- 5244 Oct, [facility] [facility] [address] [id number] [place] [address]- 6099 Oct, [facility] [address] [id number] [place] [address]- 3747 Aug, [facility] [address] [id number] [place] [address]- 6871 Aug, [facility] [address] [id number] [place] [address]- 8728 Aug, [facility] [address] [id number] [place] [address]- 2476 Aug, [facility] [address] [id number] [place] [address]- 3135 07 Aug, 2013 [facility] [address] [id number] [place] [address]- 9329 07 Aug, 2013 [facility] [address] [id number] [place] [address]- 2181 Jul, [facility] [address] [id number] [place] [address]- 4592 Jul, [facility] [address] [id number] [place] [address]- 8392 Jul, [facility] [address] [id number] [place] [address]- 6103 Jul, [facility] [address] [id number] [place] [address] 6173 Jul, [facility] [address] [id number] [place] [address]- 5219 Jul, [facility] [address] [id number] [place] [address]- 1899 Jun, [facility] [address] [id number] [place] [address]- 2197 Jun, [facility] [address] [id number] [place] [address]- 2128 Jun, [facility] [address] [id number] [place] [address]- 8143 Jun, [facility] [address] [id number] [place] [address]- 1590 Jun, [facility] [address] [id number] [place] [address]- 9391 Jun, [facility] [address] [id number] [place] [address]- 2546 May, [facility] [address] [id number] [place] [address]- 4130 May, [facility] [address] [id number] [place] [address]- 2497 Apr, [facility] [address] [id number] [place] [address]- 1238 Apr, [facility] [address] [id number] [place] [address]- 4039 Apr, [facility] [address] [id number] [place] [address]- 6547 Apr, [facility] [address] [id number] [place] [address]- 0836 Apr, [facility] [address] [id number] [place] [address]- 5507 Apr, [facility] [address] [id number] [place] [address]- 8350 Apr, [facility] [address] [id number], [place] [address]- 6853 Apr, [facility] [address] [id number] [place] [address]- 1576 Apr, [facility] [address] [id number], [place] [address] 1913 Apr, [facility] [address] [id number], [place] [address]- 1363 Apr, [facility] [address] [id number], [place] [address]- 7398 23 Mar, 2013 [facility] [address] [id number] [place] [address]- 7808 20 Mar, 2013 [facility] [address] [id number], [place] [address]- 4529 20 Mar, 2013 [facility] [address] [id number] [place] [address]- 9078 14 Mar, 2013 [facility] [address] [id number] [place] [address]- 5126 Mar, [facility] [address] [id number] [place] [address]- 8400 Mar, [facility] [address] [id number] [place] [address]- 1586 Mar, [facility] [address] [id number] [place] [address]- 3575 Jan, [facility] [address] [id number] [place] [address]- 4077 Jan, [facility] [address] [id number] [place] [address]- 8940 Jan, [facility] [address] [id number] [place] [address]- 7417 Jan, [facility] [address] [id number] [place] [address]- 8349 Jan, [facility] [address] [id number] [place] [address]- 2895 Jan, [facility] [address] [id number] [place] [address]- 8247 Jan, [facility] [address] [id number] [place] [address]- 3491 Dec, [facility] [address] [id number] [place] [address]- 5862 Dec, [facility] [address] [id number] [place] [address]- 6937 Dec, [facility] [address] [id number] [place] [address]- 6716 Dec, [facility] [address] [id number] [place] [address]- 5690 Dec, [facility] [address] [id number] [place] [address]- 6236 Dec, [facility] [address] [id number] [place] [address]- 8588 17 Oct, 2012 [facility] [address] [id number] [place] [address]- 4887 October, [facility] [address] [id number] [place] [address]- 0519 October, [facility] [address] [id number] [place] [address]- 9706 October, [facility] [address] [id number] [place] [address]- 3977 Oct, [facility] [address] [id number] [place] [address]- 3162 Oct, [facility] [address] [id number] [place] [address]- 1030 Aug, [facility] [address] [id number] [place] [address]- 8834 Aug, [facility] [address] [id number] [place] [address]- 2973 Aug, [facility] [address] [id number] [place] [address]- 8974 Aug, [facility] [address] [id number] [place] [address]- 4990 Aug, [facility] [address] [id number] [place] [address]- 3510 Aug, [facility] [address] [id number] [place] [address]- 7224 Aug, [facility] [address] [id number] [place] [address]- 3193 Aug, [facility] [address] [id number] [place] [address]- 0368 Aug, [facility] [address] [id number], [place] [address]- 7868 Aug, [facility] [id number], [place] [address]- 4835 Aug, [facility] [address] [id number], [place] [address]- 4586 Aug, [facility] [id number], [place] [address]- 1556 Aug, [facility] [id number], [place] [address]- 9778 Aug, [facility] [id number] [address]15 Jul, [facility] [id number], [place] [address]- 0223 Jul, [facility] [id number], [place] [address]- 1246 Jul, [facility] [id number], [place] [address]- 4355 Jul, [facility] [id number], [place] [address]- 0100 Jun, [facility] [id number], [place] [address]- 5936 Jun, [facility] [id number], [place] [address]- 1570 Jun, [facility] [id number], [place] [address]- 7959 Jun, [facility] [id number] [address] May, [facility] [id number] [address]240 May, IMMUNIZATIONS No Known Immunizations SOCIAL HISTORY Never Assessed REASON FOR VISIT [facility] PLAN OF CARE VITAL SIGNS MEDICATIONS Unknown [...]
--- OUTSIDE RECORDS SUMMARY | 2018-09-02 17:56 | XMS REPORT ---
Author Author AMARI HOWARD [facility] Address [address] [place] [address] Care Team Providers Care External Grinder Tool Name Role Phone AMARI HOWARD Unavailable PROBLEMS Type Condition ICD9-CM Code RGF20-RS Code Onset Dates Condition Status SNOMED Code Problem 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 Active 84396728 Problem Depressive disorder, not elsewhere classified F32.9 Active 23207718 Problem Chronic posttraumatic stress disorder F43.12 Active 827541163 Problem Insomnia G47.00 Active 979853308 Problem Obesity E66.9 Active 597565498 Problem Other chronic pain G89.29 Active 08154157 Problem Fatty liver K76.0 Active 352103925 Problem Abuse, drug or alcohol F19.10 Active 74172010 Problem Panic disorder without agoraphobia F41.0 Active 99177512 Problem Panic disorder F41.0 Active 982228451 Problem Hypothyroid E03.9 Active 02387980 Problem BMI 50.0-59.9, adult Z68.43 Active 189928446 Problem Restless legs syndrome G25.81 Active 501695518 Problem Encounter for therapeutic drug level monitoring Z51.81 Active 064099557 Problem Neuropathy G62.9 Active 169298368 Problem 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 Active 33516640 Problem Tachycardia R00.0 Active 3121086 Problem Murmur R01.1 Active 403774724 Problem Orthostatic hypertension I10 Active 06962271 Problem Shortness of breath R06.02 Active 628879673 Problem Sleep apnea in adult G47.33 Active 54308284 Problem Tunnel vision, unspecified laterality H53.489 Active 582327360 Problem Undifferentiated schizophrenia F20.3 Active [id number] ALLERGIES No Information ENCOUNTERS Encounter Location Date Diagnosis [facility] [address] [facility] [id number] [address] 18 Apr, 2018 [facility] [address] [address] 3057 17 Mar, 2018 Undifferentiated schizophrenia F20.3 [facility] [id number] [place] [address] 62375- 3183 Mar, [facility] [id number] [place] [address] 83174- 3090 Mar, Undifferentiated schizophrenia F20.3 [facility] [id number] [place] [address] 69574- 6706 Jan, [facility] [id number] [place] [address] 94236- 9760 Jan, Undifferentiated schizophrenia F20.3 [facility] [id number] [place] [address] 67117- 4638 Jan, [facility] [id number] [place] [address] 32568- 6467 Jan, Undifferentiated schizophrenia F20.3 [facility] [id number] [place] [address] 80454- 8923 Dec, [facility] [id number] [place] [address] 89692- 8526 Dec, [facility] [id number] [place] [address] 42040- 7049 Dec, [facility] [id number] [place] [address] 27542- 2985 Dec, Undifferentiated schizophrenia F20.3 ; 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 ; Chronic posttraumatic stress disorder F43.12 and BMI 50.0- 59.9, adult Z68.43 [facility] [id number] [place] [address] 67343- 7372 Dec, [facility] [id number] [place] [address] 35080- 1958 Dec, Undifferentiated schizophrenia F20.3 ; Insomnia G47.00 and Thyroid disorder E07.9 [facility] [id number] [place] [address] 46631- 4341 20 Dec, 2017 Undifferentiated schizophrenia F20.3 [facility] [id number] [place] [address] 50042- 6412 18 Dec, 2017 [facility] [id number] [place] [address] 57555- 7260 15 Dec, 2017 [facility] [id number] [place] [address] 37734- 6225 14 Dec, 2017 BMI 50.0-59.9, adult Z68.43 ; Undifferentiated schizophrenia F20.3 ; Panic disorder without agoraphobia F41.0 and Chronic posttraumatic stress disorder F43.12 [facility] [id number] [place] [address] 95519- 9391 04 Dec, 2017 [facility] [id number] [place] [address] 75377- 2697 October, [facility] [id number] [place] [address] 72038- 4488 October, Pain in right shoulder M25.511 and Other chronic pain G89.29 [facility] [id number] [place] [address] 96077- 1328 October, Hypothyroid E03.9 [facility] [address] [place] [address] 42019- 3544 Oct, Undifferentiated schizophrenia F20.3 [facility] [id number] [place] [address] 55129- 2328 Oct, [facility] [address] [place] [address] 55895- 4023 Oct, [facility] [id number] [place] [address] 95556- 3336 Aug, Undifferentiated schizophrenia F20.3 [facility] [address] [address]- 2149 Aug, [facility] [id number] [place] [address] 97914- 1161 13 Aug, 2017 Undifferentiated schizophrenia F20.3 ; 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 ; Chronic posttraumatic stress disorder F43.12 and BMI 50.0- 59.9, adult Z68.43 [facility] [id number] [place] [address] 11976- 3436 05 Aug, 2017 [facility] [address] 58351- 3849 Aug, [facility] [id number] [place] [address] 71842- 0106 Aug, Undifferentiated schizophrenia F20.3 [facility] [id number] [place] [address] 48385- 6306 Aug, Hypothyroid E03.9 [facility] [id number] [place] [address] 41765- 0869 Jul, Undifferentiated schizophrenia F20.3 [facility] [id number] [place] [address] 10933- 9218 Jul, [facility] [id number] [place] [address] 70155- 9397 Jul, Undifferentiated schizophrenia F20.3 ; Chronic posttraumatic stress disorder F43.12 ; 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 and BMI 50.0-59.9, adult Z68.43 [facility] [id number] [place] [address] 26373- 7649 Jul, [facility] [id number] [place] [address] 18777- 7453 Jul, Acute pain of right shoulder M25.511 ; High risk medication use Z79.899 ; Needle stick injury W27.3XXA ; Hypothyroid E03.9 and BMI 50.0-59.9 , adult Z68.43 [facility] [address] [place] [address] 21412- 2615 Jun, Undifferentiated schizophrenia F20.3 [facility] [id number] [place] [address] 97192- 1490 14 Jun, 2017 Undifferentiated schizophrenia F20.3 ; Panic disorder without agoraphobia F41.0 ; Chronic posttraumatic stress disorder F43.12 and BMI 50.0-59.9, adult Z68.43 [facility] [id number] [place] [address] 11247- 7617 May, [facility] [id number] [place] [address] 63073- 2958 May, [facility] [id number] [place] [address] 57453- 1350 May, Undifferentiated schizophrenia F20.3 [facility] [id number] [place] [address] 58932- 2689 May, [facility] [id number] [place] [address] 14294- 4624 May, [facility] [id number] [place] [address] 97596- 4050 15 May, 2017 Hypothyroid E03.9 [facility] [address] 95049- 3543 May, [facility] [id number] [place] [address] 51312- 9054 10 May, 2017 [facility] [id number] [place] [address] 94980- 2311 07 May, 2017 Chronic posttraumatic stress disorder F43.12 ; 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 ; Undifferentiated schizophrenia F20.3 ; BMI 40.0-44.9, adult Z68.41 and Obesity E66.9 [facility] [id number] [place] [address] 47207- 2388 07 May, 2017 Shortness of breath R06.02 [facility] [id number] [place] [address] 35302- 5726 May, [facility] [address] [address]- 1532 Apr, Undifferentiated schizophrenia F20.3 [facility] [id number] [place] [address] 88461- 5655 Apr, [facility] [address] [place] [address] 62346- 8292 Apr, [facility] [id number] [place] [address] 10467- 1452 Mar, Undifferentiated schizophrenia F20.3 ; Panic disorder without agoraphobia F41.0 and Chronic posttraumatic stress disorder F43.12 [facility] [id number] [place] [address] 75608- 7555 Mar, Undifferentiated schizophrenia F20.3 [facility] [address] [place] [address] 45148- 3878 Mar, [facility] [id number] [place] [address] 74807- 2330 Mar, [facility] [address] [place] [address] 33429- 4258 Mar, [facility] [id number] [place] [address] 18871- 4957 Jan, Undifferentiated schizophrenia F20.3 [facility] [address] [place] [address] 85626- 0336 Jan, [facility] [id number] [place] [address] 66260- 0060 Jan, [facility] [address] [address]- 4292 Jan, [facility] [place] [address] [facility] [address] [id number] [id number] Dec, Needle stick injury W27.3XXA [facility] [address] [address]- 4294 Dec, Needle stick injury W27.3XXA [facility] [address] [address]- 8310 Dec, Undifferentiated schizophrenia F20.3 [facility] [id number] [address]- 0473 Dec, [facility] [id number] [address]- 9044 Dec, [facility] [id number] [place] [address] 71806- 9401 Dec, Undifferentiated schizophrenia F20.3 ; 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 and Chronic posttraumatic stress disorder F43.12 [facility] [id number] [place] [address] 94678- 7821 Dec, [facility] [id number] [place] [address] 34608- 8187 October, [facility] [id number] [place] [address] 89506- 6629 October, Undifferentiated schizophrenia F20.3 [facility] [address] [address]- 9487 October, [facility] [address] [address]- 6926 October, [facility] [address] [address]- 7490 Oct, Undifferentiated schizophrenia F20.3 ; 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 ; Chronic posttraumatic stress disorder F43.12 and Obesity E66.9 [facility] [address] [address]- 4163 Oct, [facility] [address] [place] [address] 47787- 5186 Oct, [facility] [address] [address]- 0187 Aug, Undifferentiated schizophrenia F20.3 [facility] [address] [address]- 1613 17 Aug, 2016 [facility] [id number] [place] [address] 78234- 9948 Aug, Muscle spasm M62.838 [facility] [id number] [place] [address] 41265- 3644 06 Aug, 2016 Undifferentiated schizophrenia F20.3 [facility] [id number] [place] [address] 49333- 8336 Aug, Undifferentiated schizophrenia F20.3 ; 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 ; Chronic posttraumatic stress disorder F43.12 ; High risk medication use Z79.899 and 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 [place] [id number] [place] [address] 17544- 8667 Aug, Undifferentiated schizophrenia F20.3 [place] [id number] [place] [address] 13932- 4200 Aug, [place] [id number] [place] [address] 66970- 1271 14 Aug, 2016 Acute non-recurrent maxillary sinusitis J01.00 [place] [address] [place] [address] 62941- 2910 10 Aug, 2016 [place] [id number] [place] [address] 84867- 8334 Aug, [facility] [id number] [place] [address] 73106- 3894 Jul, Undifferentiated schizophrenia F20.3 [facility] [id number] [place] [address] 03027- 9045 Jul, Schizophrenia, undifferentiated F20.3 ; 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 ; Post-traumatic stress disorder F43.10 ; Panic disorder F41.0 and Depressive disorder, not elsewhere classified F32.9 [facility] [id number] [place] [address] 04890- 3264 Jul, [facility] [address] [place] [address] 84528- 1666 Jul, Schizophrenia, undifferentiated F20.3 ; 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 ; Post-traumatic stress disorder F43.10 ; Panic disorder F41.0 and Depressive disorder, not elsewhere classified F32.9 [facility] [id number] [place] [address] 34199- 3295 Jul, [facility] [id number] [place] [address] 17729- 6241 Jul, Undifferentiated schizophrenia F20.3 ; 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 ; 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 ; Obesity E66.9 and Chronic posttraumatic stress disorder F43.12 [facility] [id number] [place] [address] 05463- 6442 Jun, [facility] [id number] [place] [address] 32923- 1094 Jun, [facility] [id number] [place] [address] 69743- 7371 Jun, Dental caries K02.9 [facility] [id number] [place] [address] 18267- 5208 Jun, Undifferentiated schizophrenia F20.3 [facility] [address] [address]- 7582 May, [facility] [id number] [place] [address] 99363- 9138 29 May, 2016 Undifferentiated schizophrenia F20.3 ; 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 and Chronic post-traumatic stress disorder (PTSD) F43.12 [facility] [address] [place] [address] 78928- 7747 May, [facility] [address] [address]- 3706 May, Undifferentiated schizophrenia F20.3 [place] [id number] [place] [address] 98464- 8693 10 May, 2016 [place] [address] 21957- 2940 07 May, 2016 Dental examination Z01.20 [facility] [id number] [place] [address] 33976- 2178 20 Apr, 2016 Undifferentiated schizophrenia F20.3 ; PTSD (post-traumatic stress disorder) F43.10 and Obesity E66.9 [place] [id number] [place] [address] 15340- 6613 18 Apr, 2016 [place] [address] 99362- 3396 15 Mar, 2016 [place] [address] 45425- 1000 09 Mar, 2016 [place] [address] 95162- 8677 Jan, Shortness of breath R06.02 and Bipolar disorder with psychotic features F31.9 [place] [address] 70784- 4241 Jan, [place] [id number] [place] [address] 04089- 1259 Jan, Increased intracranial pressure G93.2 ; Visual disturbance H53.9 and Bipolar II disorder F31.81 [place] [id number] [place] [address] 17029- 9033 Jan, [place] [id number] [place] [address] 62484- 8931 Jan, [place] [id number] [place] [address] 59191- 6459 Jan, [place] [id number] [place] [address] 46165- 5913 Jan, Acquired hypothyroidism E03.9 ; Depression F32.9 and Insomnia G47.00 [place] [id number] [place] [address] 39966- 3520 Jan, Exertional dyspnea R06.09 ; Heart palpitations R00.2 ; Hyperlipidemia, unspecified hyperlipidemia type E78.5 ; Hypothyroidism, unspecified type E03.9 and Hypokalemia E87.[address] 48000- 2983 Dec, PTSD (post-traumatic stress disorder) F43.10 ; Depression F32.9 ; Insomnia G47.00 and Bipolar disorder with psychotic features F31.[address] 81248- 9111 Dec, Increased intracranial pressure G93.[address] 02217- 3015 Dec, [address] 08014- 9209 Dec, Shortness of breath R06.[address] 47100- 7247 Dec, Visual disturbance H53.9 and Headache, unspecified headache type R51 [address] 63385- 8567 Dec, Insomnia G47.[address] 42265- 1180 Dec, Murmur R01.[address] 22893- 2313 Dec, Murmur R01.1 ; Tunnel vision, unspecified laterality H53.489 ; Orthostatic hypertension I10 ; Shortness of breath R06.02 and Tachycardia R00.0 [place] [id number] [place] [address] 42308- 2091 Dec, [address] 32081- 9972 Dec, Hypothyroid E03.9 and Bipolar 1 disorder F31.9 [facility] [address] [place] [address] 80438- 5138 Dec, Bipolar 1 disorder F31.9 [facility] [address] [address]- 0626 Dec, [facility] [id number] [place] [address] 28831- 8503 October, Acquired hypothyroidism E03.9 ; Depression F32.9 and Insomnia G47.00 [facility] [id number] [place] [address] 66378- 3253 October, [facility] [id number] [place] [address] 14387- 8983 October, Bipolar 1 disorder F31.9 ; PTSD (post-traumatic stress disorder) F43.10 and 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 [facility] [address] [place] [address] 09302- 9062 Oct, Bipolar 1 disorder F31.9 and Insomnia G47.00 [facility] [id number] [place] [address] 15395- 3024 Oct, [facility] [address] [place] [address] 76819- 5927 Oct, [facility] [id number] [place] [address] 31074- 0041 Aug, Hypothyroid E03.9 [facility] [address] [place] [address] 60438- 5799 Aug, Encounter for therapeutic drug level monitoring Z51.81 and 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 [facility] [address] [address]- 0260 Aug, Encounter for therapeutic drug level monitoring Z51.81 [facility] [id number] [place] [address] 96430- 7061 Aug, Acquired hypothyroidism E03.9 ; Leg pain M79.606 and Bipolar 1 disorder F31.9 [facility] [address] 60295- 9108 Aug, [facility] [address] 55625- 0059 Aug, [facility] [address] 02457- 1214 Jul, Thyroid disorder E07.9 [place] [address] 97249- 5987 Jul, Rash R21 ; Abnormal LFTs R94.5 ; Acquired hypothyroidism E03.9 ; Sleep apnea in adult G47.33 and Fatty liver K76.0 [place] [address] 38794- 4006 Jun, [facility] [id number] [place] [address] 40936- 8566 Jun, [facility] [address] 95278- 9731 Jun, Bipolar II disorder F31.81 and Social phobia, generalized F40.11 [place] [id number] [place] [address] 51591- 7399 Mar, Bipolar II disorder 296.89 and Social phobia 300.23 [facility] [id number] [place] [address] Dec, [facility] [address] [address] Dec, [facility] [address] [address] Dec, Bipolar II disorder in partial or unspecified remission 296.89 and Social phobia, generalized 300.23 [facility] [address] [place] [address] 30 Oct, 2014 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 [facility] [address] [id number] [place] [address] 14 Oct, 2014 [facility] [place] [facility] [address] [id number] [place] [address] Oct, [facility] [address] [id number] [place] [address] Aug, [facility] [place] [facility] [address] [id number] [place] [address] Aug, [facility] [place] [facility] [address] [id number] [place] [address] Aug, [facility] [place] [facility] [address] [id number] [place] [address] Aug, [facility] [place] [facility] [address] [id number] [place] [address] Aug, [facility] [place] [facility] [address] [id number] [place] [address] Aug, [facility] [place] [facility] [address] [id number] [place] [address] Aug, [facility] [place] [facility] [address] [id number] [place] [address] Aug, [facility] [place] [facility] [address] [id number] [place] [address] Jul, [facility] [place] [facility] [address] [id number] [place] [address] Jul, [facility] [place] [facility] [address] [id number] [place] [address] Jul, [facility] [place] [facility] [address] [id number] [place] [address] Jul, [facility] [place] [facility] [address] [id number] [place] [address] Jul, [facility] [place] [facility] [address] [id number] [place] [address] Jul, [facility] [place] [facility] [address] [id number] [place] [address] Jun, [facility] [place] [facility] [address] [id number] [place] [address] Jun, [facility] [place] [facility] [address] [id number] [place] [address] Jun, [facility] [place] [facility] [address] [id number] [place] [address] Jun, [facility] [place] [facility] [address] [id number] [place] [address] Jun, [facility] [place] [facility] [address] [id number] [place] [address] Jun, [facility] [place] [facility] [address] [id number] [place] [address] 8[address] Jun, [facility] [place] [facility] [address] [id number] [place] [address]- 5082 Jun, [facility] [place] [facility] [address] [id number] [place] [address] 8967 Jun, [facility] [place] [facility] [address] [id number] [place] [address]- 1629 Jun, [facility] [place] [facility] [address] [id number] [address] Jun, [facility] [place] [facility] [address] [id number] [place] [address]- 3178 Jun, [facility] [place] [facility] [address] [id number] [place] [address]- 7283 Jun, [facility] [place] [facility] [address] [id number] [place] [address] Jun, [facility] [place] [facility] [address] [id number] [place] [address]- 8911 Jun, [facility] [place] [facility] [address] [id number] [place] [address]- 7199 Jun, [facility] [place] [facility] [address] [id number] [place] [address]- 2850 May, [facility] [place] [facility] [address] [id number] [place] [address]- 3040 May, [facility] [place] [facility] [address] [id number] [place] [address]- 3216 May, [facility] [place] [facility] [address] [id number] [place] [address]- 1504 May, [facility] [place] [facility] [address] [id number] [place] [address]- 0053 May, [facility] [place] [facility] [address] [id number] [place] [address]- 2339 May, [facility] [place] [facility] [address] [id number] [place] [address]- 9744 Apr, [facility] [place] [facility] [address] [id number] [place] [address]- 5481 Apr, [facility] [place] [facility] [address] [facility] [id number] [place] [address]- 6912 Apr, [facility] [place] [facility] [address] [id number] [place] [address]- 9050 Apr, [facility] [place] [facility] [address] [id number] [address]- 8374 Apr, [facility] [place] [facility] [address] [id number] [place] [address]- 8425 Apr, [facility] [place] [facility] [address] [id number] [place] [address] Mar, [facility] [place] [facility] [address] [id number] [place] [address]- 1410 Mar, [facility] [place] [facility] [address] [id number] [place] [address]- 5589 Mar, [facility] [place] [facility] [address] [id number] [place] [address]- 4724 Mar, [facility] [place] [facility] [address] [id number] [place] [address]- 0523 Jan, [facility] [place] [facility] [address] [id number] [place] [address]- 2156 Jan, [facility] [place] [facility] [address] [id number] [place] [address]- 3968 Jan, [facility] [place] [facility] [address] [id number] [place] [address]- 5382 Jan, [facility] [place] [facility] [address] [id number] [place] [address]- 1674 Jan, [facility] [place] [facility] [address] [id number] [place] [address]- 7784 Jan, [facility] [place] [facility] [address] [id number] [place] [address]- 7504 Dec, [facility] [place] [facility] [address] [id number] [place] [address]- 8131 Dec, [facility] [place] [facility] [address] [id number] [place] [address]- 7020 Dec, [facility] [place] [facility] [address] [id number] [place] [address]- 1497 Dec, [facility] [place] [facility] [address] [id number] [place] [address]- 2907 Dec, [facility] [place] [facility] [address] [id number] [place] [address]- 4393 Dec, [facility] [place] [facility] [address] [id number] [place] [address]- 8509 October, [facility] [place] [facility] [address] [id number] [place] [address]- 9014 October, [facility] [place] [facility] [address] [id number] [place] [address]- 7153 October, [facility] [place] [facility] [address] [id number] [place] [address] October, [facility] [place] [facility] [address] [id number] [place] [address]- 5249 October, [facility] [place] [facility] [address] [id number] [place] [address]- 9153 October, [facility] [place] [facility] [address] [id number] [place] [address]- 9675 October, [facility] [place] [facility] [address] [id number] [place] [address]- 7347 October, [facility] [place] [facility] [address] [id number] [place] [address]- 3345 Oct, [facility] [place] [facility] [address] [id number] [place] [address]- 5042 Oct, [facility] [place] [facility] [address] [id number] [place] [address]- 9793 Oct, [facility] [place] [facility] [address] [id number] [place] [address]- 3788 Oct, [facility] [place] [facility] [address] [id number] [place] [address]- 6669 Oct, [facility] [place] [facility] [address] [id number] [place] [address]- 3185 Aug, [facility] [place] [facility] [address] [id number] [place] [address]- 3947 Aug, [facility] [place] [facility] [address] [id number] [place] [address]- 5878 Aug, [facility] [place] [facility] [address] [id number] [place] [address]- 1083 Aug, [facility] [place] [facility] [address] [id number] [place] [address]- 1173 07 Aug, 2013 [facility] [address] [id number] [place] [address]- 8232 07 Aug, 2013 [facility] [address] [id number] [place] [address]- 6382 Jul, [facility] [address] [id number] [place] [address]- 2483 Jul, [facility] [address] [id number] [place] [address]- 5555 Jul, [facility] [address] [id number] [place] [address]- 5249 Jul, [facility] [address] [id number] [place] [address]- 5356 Jul, [facility] [address] [id number] [place] [address]- 2510 Jul, [facility] [address] [id number] [place] [address]- 8150 Jun, [facility] [address] [id number] [place] [address]- 3022 Jun, [facility] [address] [id number] [place] [address]- 9476 Jun, [facility] [place] [facility] [address] [id number] [place] [address]- 9373 Jun, [facility] [address] [id number] [place] [address]- 5108 Jun, [facility] [place] [facility] [address] [id number] [place] [address]- 4731 Jun, [facility] [place] [facility] [address] [id number] [place] [address]- 2546 May, [facility] [place] [facility] [address] [id number] [place] [address]- 8848 May, [facility] [place] [facility] [address] [id number] [place] [address]- 1168 Apr, [facility] [place] [facility] [address] [id number] [place] [address]- 4645 Apr, [facility] [place] [facility] [address] [id number] [place] [address]- 8003 Apr, [facility] [place] [facility] [address] [id number] [place] [address]- 0993 Apr, [facility] [place] [facility] [address] [id number] [place] [address]- 9745 Apr, [facility] [place] [facility] [address] [id number] [place] [address]- 8870 Apr, [facility] [place] [facility] [address] [id number] [place] [address]- 2194 Apr, [facility] [place] [facility] [address] [id number] [place] [address]- 4910 Apr, [facility] [place] [facility] [address] [id number] [place] [address]- 6026 Apr, [facility] [place] [facility] [address] [id number] [place] [address]- 3249 Apr, [facility] [place] [facility] [address] [id number] [place] [address]- 9018 Apr, [facility] [place] [facility] [address] [id number] [place] [address]- 4683 23 Mar, 2013 [facility] [place] [facility] [address] [id number] [place] [address]- 3967 20 Mar, 2013 [facility] [place] [facility] [address] [id number] [place] [address]- 1218 20 Mar, 2013 [facility] [place] [facility] [address] [id number] [place] [address]- 3604 14 Mar, 2013 [facility] [place] [facility] [address] [id number] [place] [address]- 6771 Mar, [facility] [place] [facility] [address] [id number] [place] [address]- 7412 Mar, [facility] [place] [facility] [address] [id number] [place] [address]- 1096 Mar, [facility] [place] [facility] [address] [id number] [place] [address]- 0994 Jan, [facility] [place] [facility] [address] [id number] [place] [address]- 6953 Jan, [facility] [place] [facility] [address] [id number] [place] [address]- 1291 Jan, [facility] [place] [facility] [address] [id number] [place] [address]- 1156 Jan, [facility] [place] [facility] [address] [id number] [place] [address]- 7185 Jan, [facility] [place] [facility] [address] [id number] [place] [address]- 1665 Jan, [facility] [place] [facility] [address] [id number] [place] [address]- 8220 Jan, [facility] [place] [facility] [address] [id number] [place] [address]- 5187 Dec, [facility] [place] [facility] [address] [id number] [place] [address]- 6950 Dec, [facility] [place] [facility] [address] [id number] [place] [address]- 3110 Dec, [facility] [place] [facility] [address] [id number] [place] [address]- 6593 Dec, [facility] [place] [facility] [address] [id number] [place] [address]- 8302 Dec, [facility] [place] [facility] [address] [id number] [place] [address]- 3869 Dec, [facility] [place] [facility] [address] [id number] [place] [address]- 9955 17 Oct, 2012 [facility] [address] [id number] [place] [address]- 8845 October, [facility] [address] [id number] [place] [address]- 1857 October, [facility] [address] [id number] [place] [address]- 0566 October, [facility] [address] [id number] [place] [address]- 6631 Oct, [facility] [address] [id number] [place] [address]- 8583 Oct, [facility] [address] [id number] [place] [address]- 9830 Aug, [facility] [address] [id number] [place] [address]- 1677 Aug, [facility] [address] [id number] [place] [address]- 4315 Aug, [facility] [address] [id number] [place] [address]- 3330 Aug, [facility] [address] [id number] [place] [address]- 9364 Aug, [facility] [address] [id number] [place] [address]- 9755 Aug, [facility] [address] [id number] [place] [address]- 9796 Aug, [facility] [address] [id number] [place] [address]- 3252 Aug, [facility] [address] [id number] [place] [address]- 5386 Aug, [facility] [address] [id number] [place] [address]- 6342 Aug, [facility] [id number] [address]- 8567 Aug, [facility] [id number] [address]- 5966 Aug, [facility] [id number] [address]- 3296 Aug, [facility] [id number] 4232 Aug, [facility] [id number] [place] [address]- 7293 Jul, [facility] [id number] [address]- 0121 Jul, [facility] [id number] [address]- 5711 Jul, [facility] [id number] [address]- 5404 Jul, [facility] [id number] [address]- 9799 Jun, [facility] [id number] [address]- 9325 Jun, [facility] [id number] [address]- 1699 Jun, [facility] [address] [id number] [address]- 7053 Jun, [facility] [id number] [address] May, [facility] [id number] [address]647 May, IMMUNIZATIONS No Known Immunizations SOCIAL HISTORY Never Assessed REASON FOR VISIT klonopin refill PLAN OF CARE VITAL SIGNS MEDICATIONS Medication Instructions Dosage Frequency Start Date End Date Duration Status Clonazepam 1 MG Orally 3 times a day for anxiety 1 tablet Apr, 30 days Active RESULTS No Results PROCEDURES [...]
--- OUTSIDE RECORDS SUMMARY | 2018-09-02 17:57 | XMS REPORT ---
Author Author AMARI HOWARD [facility] Address [address] [place] [address] Care Team Providers Care Director Trade Name Role Phone AMARI HOWARD Unavailable PROBLEMS Type Condition ICD9-CM Code [id number] Code Onset Dates Condition Status SNOMED Code Problem 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 Active 46595277 Problem Depressive disorder, not elsewhere classified F32.9 Active 41844898 Problem Chronic posttraumatic stress disorder F43.12 Active 721078208 Problem Insomnia G47.00 Active 885460962 Problem Obesity E66.9 Active 393099750 Problem Other chronic pain G89.29 Active 23088071 Problem Fatty liver K76.0 Active 057350815 Problem Abuse, drug or alcohol F19.10 Active 08423131 Problem Panic disorder without agoraphobia F41.0 Active 09089749 Problem Panic disorder F41.0 Active 741254349 Problem Hypothyroid E03.9 Active 23848754 Problem BMI 50.0-59.9, adult Z68.43 Active 595504440 Problem Restless legs syndrome G25.81 Active 893348926 Problem Encounter for therapeutic drug level monitoring Z51.81 Active 834599521 Problem Neuropathy G62.9 Active 333761617 Problem 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 Active 69540304 Problem Tachycardia R00.0 Active 8756368 Problem Murmur R01.1 Active 859696605 Problem Orthostatic hypertension I10 Active 53599420 Problem Shortness of breath R06.02 Active 448460324 Problem Sleep apnea in adult G47.33 Active 58822208 Problem Tunnel vision, unspecified laterality H53.489 Active 359819101 Problem Undifferentiated schizophrenia F20.3 Active 380001918 ALLERGIES No Information ENCOUNTERS Encounter Location Date Diagnosis [facility] [address] [facility] [id number] [address] 18 Apr, 2018 [facility] [address], [place] [address] 3417 17 Mar, [address] [facility] [id number] [place] [address] 55490- 8626 Mar, [facility] [id number] [place] [address] 30523- 0928 Mar, Undifferentiated schizophrenia F20.3 [facility] [id number] [place] [address] 24517- 5754 Jan, [facility] [id number] [place] [address] 44229- 5730 Jan, Undifferentiated schizophrenia F20.3 [facility] [id number] [place] [address] 19087- 2341 Jan, [facility] [id number] [place] [address] 77468- 3340 Jan, Undifferentiated schizophrenia F20.3 [facility] [id number] [place] [address] 20531- 7170 Dec, [facility] [id number] [place] [address] 62217- 0669 Dec, [facility] [id number] [place] [address] 30547- 9137 Dec, [facility] [address] [place] [address] 38919- 9601 Dec, Undifferentiated schizophrenia F20.3 ; 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 ; Chronic posttraumatic stress disorder F43.12 and BMI 50.0- 59.9, adult Z68.43 [facility] [id number] [place] [address] 59447- 8320 Dec, [facility] [id number] [place] [address] 75214- 9462 Dec, Undifferentiated schizophrenia F20.3 ; Insomnia G47.00 [address] E[address].9 [facility] [id number] [place] [address] 94495- 9575 20 Dec, [address] [facility] [id number] [place] [address] 69537- 5939 18 Dec, 2017 [facility] [id number] [place] [address] 64804- 6658 15 Dec, 2017 [facility] [id number] [place] [address] 80080- 7012 14 Dec, 2017 BMI 50.0-59.9, adult Z68.43 ; Undifferentiated schizophrenia F20.3 ; Panic disorder without agoraphobia F41.0 and Chronic posttraumatic stress disorder F43.12 [facility] [id number] [place] [address] 07491- 4818 04 Dec, 2017 [facility] [id number] [place] [address] 85168- 0455 October, [facility] [id number] [place] [address] 48140- 8166 October, Pain in right shoulder M25.511 and Other chronic pain G89.29 [facility] [id number] [place] [address] 38845- 2424 October, Hypothyroid E03.9 [facility] [address] [place] [address] 96125- 1607 Oct, Undifferentiated schizophrenia F20.3 [facility] [id number] [place] [address] 19658- 8466 Oct, [facility] [address] [place] [address] 99214- 4011 Oct, [facility] [id number] [place] [address] 35800- 3447 Aug, Undifferentiated schizophrenia F20.3 [facility] [address] [address] 9440 Aug, [facility] [id number] [place] [address] 98319- 7351 13 Aug, 2017 Undifferentiated schizophrenia F20.3 ; 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 ; Chronic posttraumatic stress disorder F43.12 and BMI 50.0- 59.9, adult Z68.43 [facility] [id number] [place] [address] 68898- 2238 05 Aug, 2017 [facility] [address] 66721- 0996 Aug, [facility] [id number] [place] [address] 93042- 1975 Aug, Undifferentiated schizophrenia F20.3 [facility] [id number] [place] [address] 48997- 1401 Aug, Hypothyroid E03.9 [facility] [id number] [place] [address] 84071- 2896 Jul, Undifferentiated schizophrenia F20.3 [facility] [id number] [place] [address] 87449- 0114 Jul, [facility] [id number] [place] [address] 99806- 2935 Jul, Undifferentiated schizophrenia F20.3 ; Chronic posttraumatic stress disorder F43.12 ; 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 and BMI 50.0-59.9, adult Z68.43 [facility] [id number] [place] [address] 78406- 3860 Jul, [facility] [id number] [place] [address] 35487- 8066 Jul, Acute pain of right shoulder M25.511 ; High risk medication use Z79.899 ; Needle stick injury W27.3XXA ; Hypothyroid E03.9 and BMI 50.0-59.9 , adult Z68.43 [facility] [address] [place] [address] 13853- 1207 Jun, Undifferentiated schizophrenia F20.3 [facility] [id number] [place] [address] 48353- 1625 14 Jun, 2017 Undifferentiated schizophrenia F20.3 ; Panic disorder without agoraphobia F41.0 ; Chronic posttraumatic stress disorder F43.12 and BMI 50.0-59.9, adult Z68.43 [facility] [id number] [place] [address] 88578- 2789 May, [facility] [id number] [place] [address] 97613- 2656 May, [facility] [id number] [place] [address] 16183- 8163 May, Undifferentiated schizophrenia F20.3 [facility] [id number] [place] [address] 86901- 4274 May, [facility] [id number] [place] [address] 80258- 7797 May, [facility] [id number] [place] [address] 52759- 5600 15 May, [address] [facility] [address] 47284- 1174 May, [facility] [id number] [place] [address] 10037- 6846 10 May, 2017 [facility] [id number] [place] [address] 31142- 0130 07 May, 2017 Chronic posttraumatic stress disorder F43.12 ; 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 ; Undifferentiated schizophrenia F20.3 ; BMI 40.0-44.9, adult Z68.[address] [facility] [id number] [place] [address] 49639- 7985 07 May, 2017 Shortness [address]02 [facility] [id number] [place] [address] 01062- 6935 May, [facility] [address], [place] [address]- 5335 Apr, Undifferentiated schizophrenia F20.3 [facility] [id number] [place] [address] 87236- 5619 Apr, [facility] [address] [place] [address] 23635- 4459 Apr, [facility] [id number] [place] [address] 34763- 0595 Mar, Undifferentiated schizophrenia F20.3 ; Panic disorder without agoraphobia F41.0 and Chronic posttraumatic stress disorder F43.12 [facility] [id number] [place] [address] 75527- 6534 Mar, Undifferentiated schizophrenia F20.3 [facility] [address] [place] [address] 11976- 5182 Mar, [facility] [address] [place] [address] 75511- 5711 Mar, [facility] [address] [place] [address] 11176- 4204 Mar, [facility] [id number] [place] [address] 81728- 2225 Jan, Undifferentiated schizophrenia F20.3 [facility] [address] [place] [address] 51654- 0919 Jan, [facility] [address] [place] [address] 52523- 8352 Jan, [facility] [address] [address]- 8561 Jan, [facility] [place] [address] [facility] [address] [id number] [address] Dec, Needle stick injury W27.3XXA [facility] [address], [place] [address]- 8668 Dec, Needle stick injury W27.3XXA [facility] [address], [place] [address]- 1186 Dec, Undifferentiated schizophrenia F20.3 [facility] [address] [address]- 9963 Dec, [facility] [id number] [address]- 6547 Dec, [facility] [id number] [place] [address] 33691- 9492 Dec, Undifferentiated schizophrenia F20.3 ; 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 and Chronic posttraumatic stress disorder F43.12 [facility] [id number] [place] [address] 45502- 3463 Dec, [facility] [id number] [place] [address] 70520- 4343 October, [facility] [id number] [place] [address] 73433- 0693 October, Undifferentiated schizophrenia F20.3 [facility] [address] [address]- 2701 October, [facility] [address], [place] [address]- 3780 October, [facility] [address], [place] [address]- 6214 Oct, Undifferentiated schizophrenia F20.3 ; 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 ; Chronic posttraumatic stress disorder F43.[address] [facility] [address] [address]- 2011 Oct, [facility] [address] [place] [address] 26839- 6988 Oct, [facility] [address] [address]- 6265 Aug, Undifferentiated schizophrenia F20.3 [facility] [address], [place] [address]- 5990 17 Aug, 2016 [facility] [id number] [place] [address] 77999- 1444 Aug, Muscle spasm M62.838 [facility] [id number] [place] [address] 61480- 9075 06 Aug, [address] [facility] [id number] [place] [address] 55445- 4951 Aug, Undifferentiated schizophrenia F20.3 ; 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 ; Chronic posttraumatic stress disorder F43.12 ; High risk medication use Z79.899 and 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 [place] [id number] [place] [address] 46115- 1487 Aug, Undifferentiated schizophrenia F20.3 [place] [id number] [place] [address] 03597- 5270 Aug, [place] [id number] [place] [address] 15413- 5997 14 Aug, 2016 Acute non-recurrent maxillary sinusitis J01.00 [place] [address] [place] [address] 25807- 2025 10 Aug, 2016 [place] [id number] [place] [address] 13449- 4906 Aug, [facility] [id number] [place] [address] 64222- 8701 Jul, Undifferentiated schizophrenia F20.3 [facility] [id number] [place] [address] 88437- 7993 Jul, Schizophrenia, undifferentiated F20.3 ; 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 ; Post-traumatic stress disorder F43.10 ; Panic disorder F41.0 and Depressive disorder, not elsewhere classified F32.9 [facility] [id number] [place] [address] 96146- 3887 Jul, [facility] [address] [place] [address] 70214- 5574 Jul, Schizophrenia, undifferentiated F20.3 ; 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 ; Post-traumatic stress disorder F43.10 ; Panic disorder F41.0 and Depressive disorder, not elsewhere classified F32.9 [facility] [id number] [place] [address] 14549- 2434 Jul, [facility] [id number] [place] [address] 76424- 1156 Jul, Undifferentiated schizophrenia F20.3 ; 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 ; 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 ; Obesity E66.9 and Chronic posttraumatic stress disorder F43.12 [facility] [id number] [place] [address] 62230- 7773 Jun, [facility] [id number] [place] [address] 41504- 0385 Jun, [facility] [id number] [place] [address] 32408- 3416 Jun, Dental caries K02.9 [facility] [id number] [place] [address] 18758- 1304 Jun, Undifferentiated schizophrenia F20.3 [facility] [address] [address]- 7120 May, [facility] [id number] [place] [address] 54188- 7789 29 May, 2016 Undifferentiated schizophrenia F20.3 ; 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 and Chronic post-traumatic stress disorder (PTSD) F43.12 [facility] [address] [place] [address] 55231- 9607 May, [facility] [address], [place] [address]- 6593 May, Undifferentiated schizophrenia F20.3 [place] [id number] [place] [address] 45687- 0773 10 May, 2016 [place] [address] 18107- 4831 07 May, 2016 Dental examination Z01.20 [place] [id number] [place] [address] 31291- 6849 20 Apr, 2016 Undifferentiated schizophrenia F20.3 ; PTSD (post-traumatic stress disorder) F43.10 and Obesity E66.9 [place] [id number] [place] [address] 72580- 7025 18 Apr, 2016 [place] [address] 84370- 4341 15 Mar, 2016 [place] [address] 21819- 5703 09 Mar, 2016 [place] [address] 34138- 8945 Jan, Shortness of breath R06.02 and Bipolar disorder with psychotic features F31.9 [place] [address] 07071- 4817 Jan, [place] [id number] [place] [address] 20061- 3545 Jan, Increased intracranial pressure G93.2 ; Visual disturbance H53.9 and Bipolar II disorder F31.81 [place] [id number] [place] [address] 28127- 9294 Jan, [place] [id number] [place] [address] 62410- 7223 Jan, [place] [id number] [place] [address] 61037- 0231 Jan, [place] [id number] [place] [address] 25578- 7492 Jan, Acquired hypothyroidism E03.9 ; Depression F32.9 and Insomnia G47.00 [place] [id number] [place] [address] 91515- 4956 Jan, Exertional dyspnea R06.09 ; Heart palpitations R00.2 ; Hyperlipidemia, unspecified hyperlipidemia type E78.5 ; Hypothyroidism, unspecified type E03.9 and Hypokalemia E87.[address] 46518- 7360 Dec, PTSD (post-traumatic stress disorder) F43.10 ; Depression F32.9 ; Insomnia G47.00 and Bipolar disorder with psychotic features F31.[address] 10047- 3142 Dec, Increased intracranial pressure G93.[address] 51196- 3043 Dec, [address] 11631- 8433 Dec, Shortness of breath R06.[address] 26898- 9022 Dec, Visual disturbance H53.9 and Headache, unspecified headache type R51 [address] 14593- 7113 Dec, Insomnia G47.[address] 75095- 3387 Dec, Murmur R01.[address] 35152- 5410 Dec, Murmur R01.1 ; Tunnel vision, unspecified laterality H53.489 ; Orthostatic hypertension I10 ; Shortness of breath R06.02 and Tachycardia R00.0 [place] [id number] [place] [address] 78428- 4405 Dec, [address] 67008- 8134 Dec, Hypothyroid E03.9 and Bipolar [address] [facility] [address] [place] [address] 77830- 4902 Dec, Bipolar [address] [facility] [address] [address]- 0235 Dec, [facility] [id number] [place] [address] 37004- 5872 October, Acquired hypothyroidism E03.9 ; Depression F32.[address] [facility] [id number] [place] [address] 98686- 6265 October, [facility] [id number] [place] [address] 90918- 8027 October, Bipolar 1 disorder F31.9 ; PTSD (post-traumatic stress disorder) F43.10 and 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 [facility] [id number] [place] [address] 74719- 2361 Oct, Bipolar 1 disorder F31.[address] [facility] [id number] [place] [address] 63780- 1317 Oct, [facility] [id number] [place] [address] [phone]- [address] Oct, [facility] [id number] [place] [address] 84035- 6700 Aug, [address] E[address].9 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 [address] [address] Aug, Encounter for therapeutic drug level monitoring Z51.81 [facility] [id number] [place] [address] 04639- 2924 Aug, Acquired hypothyroidism E03.9 ; Leg pain M79.606 and Bipolar [address] [facility] [address] [address]- [address] Aug, [facility] [address] [address]- [address] Aug, [facility] [address] 9[address]- [address]338 Jul, Thyroid disorder E07.9 [place] [address] 94[address]- [address] Jul, Rash R21 ; Abnormal LFTs R94.5 ; Acquired hypothyroidism E03.9 ; Sleep apnea in adult G47.33 and Fatty liver K76.0 [place] [address] 90206- 5931 Jun, [facility] [id number] [place] [address] 77953- [address]952 Jun, [facility] [address] 88584- 9397 Jun, Bipolar II disorder F31.81 and Social phobia, generalized F40.11 [place] [id number] [place] [address] 92343- 1585 Mar, Bipolar II disorder 296.89 and Social phobia 300.23 [facility] [id number] [place] [address] 98945- 8514 Dec, [facility] [address] 17[address]- [address] Dec, [facility] [address] 58591- 6943 Dec, Bipolar II disorder in partial or unspecified remission 296.89 and Social phobia, generalized 300.23 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 [facility] [address] [id number] [place] [address] 14 Oct, 2014 [facility] [place] [facility] [address] [id number] [place] [address] Oct, [facility] [address] [id number] [place] [address] 12[address] Aug, [facility] [place] [facility] [address] [id number] [place] [address] 1741 Aug, [facility] [place] [facility] [address] [id number] [place] [address]337 Aug, [facility] [place] [facility] [address] [id number] [place] [address] 3961 Aug, [facility] [place] [facility] [address] [id number] [place] [address]- 6699 Aug, [facility] [place] [facility] [address] [id number] [place] [address]- 8634 Aug, [facility] [place] [facility] [address] [id number] [place] [address]- 5998 Aug, [facility] [place] [facility] [address] [id number] [place] [address]- 1691 Aug, [facility] [place] [facility] [address] [id number] [place] [address] 2348 Jul, [facility] [place] [facility] [address] [id number] [place] [address] 2645 Jul, [facility] [place] [facility] [address] [id number] [place] [address]- 0816 Jul, [facility] [place] [facility] [address] [id number] [place] [address]- 9546 Jul, [facility] [place] [facility] [address] [id number] [place] [address]- 3915 Jul, [facility] [place] [facility] [address] [id number] [place] [address]- 1088 Jul, [facility] [place] [facility] [address] [id number] [place] [address]- 2685 Jun, [facility] [place] [facility] [address] [id number] [place] [address] Jun, [facility] [place] [facility] [address] [id number] [place] [address]- 4925 Jun, [facility] [place] [facility] [address] [id number] [place] [address]- 6070 Jun, [facility] [place] [facility] [address] [id number] [place] [address]- 1516 Jun, [facility] [place] [facility] [address] [id number] [place] [address] 1912 Jun, [facility] [place] [facility] [address] [id number] [place] [address]- 3146 Jun, [facility] [place] [facility] [address] [id number] [place] [address]- 3394 Jun, [facility] [place] [facility] [address] [id number] [place] [address]- 1878 Jun, [facility] [place] [facility] [address] [id number] [place] [address] 1901 Jun, [facility] [place] [facility] [address] [id number], [place] [address] 04[address] Jun, [facility] [place] [facility] [address] [id number] [place] [address]- 1865 Jun, [facility] [place] [facility] [address] [id number] [place] [address]- 0685 Jun, [facility] [place] [facility] [address] [id number] [place] [address] Jun, [facility] [place] [facility] [address] [id number] [place] [address]- 3621 Jun, [facility] [place] [facility] [address] [id number] [place] [address]- 4738 Jun, [facility] [place] [facility] [address] [id number] [place] [address]- 8558 May, [facility] [place] [facility] [address] [id number] [place] [address]- 7973 May, [facility] [place] [facility] [address] [id number] [place] [address]- 8788 May, [facility] [place] [facility] [address] [id number] [place] [address]- 8667 May, [facility] [place] [facility] [address] [id number] [place] [address]- 9283 May, [facility] [place] [facility] [address] [id number] [place] [address]- 4881 May, [facility] [place] [facility] [address] [id number] [place] [address]- 2320 Apr, [facility] [place] [facility] [address] [id number] [place] [address]- 2563 Apr, [facility] [place] [facility] [address] [facility] [id number] [place] [address]- 3935 Apr, [facility] [place] [facility] [address] [id number] [place] [address]- 5193 Apr, [facility] [place] [facility] [address] [id number], [place] [address] 6[address] Apr, [facility] [place] [facility] [address] [id number] [place] [address]- 7731 Apr, [facility] [place] [facility] [address] [id number] [place] [address] Mar, [facility] [place] [facility] [address] [id number] [place] [address]- 2407 Mar, [facility] [place] [facility] [address] [id number] [place] [address]- 1132 Mar, [facility] [place] [facility] [address] [id number] [place] [address]- 3299 Mar, [facility] [place] [facility] [address] [id number] [place] [address]- 2241 Jan, [facility] [place] [facility] [address] [id number] [place] [address]- 5589 Jan, [facility] [place] [facility] [address] [id number] [place] [address]- 1703 Jan, [facility] [place] [facility] [address] [id number] [place] [address]- 2646 Jan, [facility] [place] [facility] [address] [id number] [place] [address]- 4430 Jan, [facility] [place] [facility] [address] [id number] [place] [address]- 9434 Jan, [facility] [place] [facility] [address] [id number] [place] [address]- 1808 Dec, [facility] [place] [facility] [address] [id number] [place] [address]- 0824 Dec, [facility] [place] [facility] [address] [id number] [place] [address]- 5948 Dec, [facility] [place] [facility] [address] [id number] [place] [address]- 6451 Dec, [facility] [place] [facility] [address] [id number] [place] [address]- 8745 Dec, [facility] [place] [facility] [address] [id number] [place] [address]- 7636 Dec, [facility] [place] [facility] [address] [id number] [place] [address]- 0291 October, [facility] [place] [facility] [address] [id number] [place] [address]- 2285 October, [facility] [place] [facility] [address] [id number] [place] [address]- 8247 October, [facility] [place] [facility] [address] [id number] [place] October, [facility] [place] [facility] [address] [id number] [place] [address]- 7178 October, [facility] [place] [facility] [address] [id number] [place] [address]- 7761 October, [facility] [place] [facility] [address] [id number] [place] [address]- 7837 October, [facility] [place] [facility] [address] [id number] [place] [address]- 9889 October, [facility] [place] [facility] [address] [id number] [place] [address]- 4040 Oct, [facility] [place] [facility] [address] [id number] [place] [address]- 8332 Oct, [facility] [place] [facility] [address] [id number] [place] [address]- 7053 Oct, [facility] [place] [facility] [address] [id number] [place] [address]- 5239 Oct, [facility] [place] [facility] [address] [id number] [place] [address]- 2649 Oct, [facility] [place] [facility] [address] [id number] [place] [address]- 6005 Aug, [facility] [place] [facility] [address] [id number] [place] [address]- 2825 Aug, [facility] [place] [facility] [address] [id number] [place] [address]- 8012 Aug, [facility] [place] [facility] [address] [id number] [place] [address]- 6450 Aug, [facility] [place] [facility] [address] [id number] [place] [address]- 5544 07 Aug, 2013 [facility] [address] [id number] [place] [address]- 2383 07 Aug, 2013 [facility] [address] [id number] [place] [address]- 7177 Jul, [facility] [address] [id number] [place] [address]- 0047 Jul, [facility] [address] [id number] [place] [address]- 8711 Jul, [facility] [address] [id number] [place] [address]- 4342 Jul, [facility] [address] [id number] [place] [address]- 4543 Jul, [facility] [address] [id number] [place] [address]- 6043 Jul, [facility] [address] [id number] [place] [address]- 5164 Jun, [facility] [address] [id number] [place] [address]- 5068 Jun, [facility] [address] [id number] [place] [address]- 7772 Jun, [facility] [place] [facility] [address] [id number] [place] [address]- 9956 Jun, [facility] [address] [id number] [place] [address]- 0142 Jun, [facility] [place] [facility] [address] [id number] [place] [address]- 2896 Jun, [facility] [place] [facility] [address] [id number] [place] [address]- 2546 May, [facility] [place] [facility] [address] [id number] [place] [address]- 7937 May, [facility] [place] [facility] [address] [id number] [place] [address]- 1843 Apr, [facility] [place] [facility] [address] [id number] [place] [address]- 6761 Apr, [facility] [place] [facility] [address] [id number] [place] [address]- 9499 Apr, [facility] [place] [facility] [address] [id number] [place] [address]- 0430 Apr, [facility] [place] [facility] [address] [id number] [place] [address]- 5382 Apr, [facility] [place] [facility] [address] [id number] [place] [address]- 0831 Apr, [facility] [place] [facility] [address] [id number] [place] [address]- 6661 Apr, [facility] [place] [facility] [address] [id number], [place] [address]- 5852 Apr, [facility] [place] [facility] [address] [id number] [place] [address]- 8395 Apr, [facility] [place] [facility] [address] [id number], [place] [address]- 5725 Apr, [facility] [place] [facility] [address] [id number], [place] [address]- 4036 Apr, [facility] [place] [facility] [address] [id number], [place] [address]- 2141 23 Mar, 2013 [facility] [place] [facility] [address] [id number] [place] [address]- 1654 20 Mar, 2013 [facility] [place] [facility] [address] [id number], [place] [address]- 8930 20 Mar, 2013 [facility] [place] [facility] [address] [id number] [place] [address]- 5949 14 Mar, 2013 [facility] [place] [facility] [address] [id number] [place] [address]- 3600 Mar, [facility] [place] [facility] [address] [id number] [place] [address]- 3329 Mar, [facility] [place] [facility] [address] [id number] [place] [address]- 9754 Mar, [facility] [place] [facility] [address] [id number] [place] [address]- 6590 Jan, [facility] [place] [facility] [address] [id number] [place] [address]- 3543 Jan, [facility] [place] [facility] [address] [id number] [place] [address]- 1952 Jan, [facility] [place] [facility] [address] [id number] [place] [address]- 6711 Jan, [facility] [place] [facility] [address] [id number] [place] [address]- 5809 Jan, [facility] [place] [facility] [address] [id number] [place] [address]- 4097 Jan, [facility] [place] [facility] [address] [id number] [place] [address]- 1003 Jan, [facility] [place] [facility] [address] [id number] [place] [address]- 0144 Dec, [facility] [place] [facility] [address] [id number] [place] [address]- 1399 Dec, [facility] [place] [facility] [address] [id number] [place] [address]- 1987 Dec, [facility] [place] [facility] [address] [id number] [place] [address]- 5183 Dec, [facility] [place] [facility] [address] [id number] [place] [address]- 1618 Dec, [facility] [place] [facility] [address] [id number] [place] [address]- 0662 Dec, [facility] [place] [facility] [address] [id number] [place] [address]- 9170 17 Oct, 2012 [facility] [address] [id number] [place] [address]- 8520 October, [facility] [address] [id number] [place] [address]- 4334 October, [facility] [address] [id number] [place] [address]- 5148 October, [facility] [address] [id number] [place] [address]- 4115 Oct, [facility] [address] [id number] [place] [address]- 0149 Oct, [facility] [address] [id number] [place] [address]- 1391 Aug, [facility] [address] [id number] [place] [address]- 5171 Aug, [facility] [address] [id number] [place] [address]- 8445 Aug, [facility] [address] [id number] [place] [address]- 7984 Aug, [facility] [address] [id number] [place] [address]- 2572 Aug, [facility] [address] [id number] [place] [address]- 6961 Aug, [facility] [address] [id number] [place] [address]- 8897 Aug, [facility] [address] [id number] [place] [address]- 9822 Aug, [facility] [address] [id number] [place] [address]- 0108 Aug, [facility] [address] [id number], [place] [address] Aug, [facility] [id number] [address] 50[address] Aug, [facility] [address] [id number] [address] Aug, [facility] [id number] [address] 6106 Aug, [facility] [id number] [address] 0327 Aug, [facility] [id number] [address]30 Jul, [facility] [id number] [address]573 Jul, [facility] [id number] [address] 1997 Jul, [facility] [id number] [address] 7932 Jul, [facility] [address]005[address] [address] 4789 Jun, [facility] [address]005[address] [address] 9220 Jun, [facility] [address] [address]50 Jun, [facility] [address], [place] [address]- 3152 Jun[facility] [address] [address] May, [facility] [address] [address]871 May, IMMUNIZATIONS No Known Immunizations SOCIAL HISTORY Never Assessed REASON FOR VISIT Repository Medication PLAN OF CARE VITAL SIGNS MEDICATIONS Medication Instructions Dosage Frequency Start Date End Date Duration Status [place] Carbonate 300 MG Orally 2 times a day (For Mood) 1 tablet in the morning, 2 tablets at bedtime 30 days Active RESULTS No Results PROCEDURES [...]
--- OUTSIDE RECORDS SUMMARY | 2018-09-02 17:58 | XMS REPORT ---
Author Author DIGNA GUERRERO [facility] Address [address] [place] [address] Care Team Providers Care Digital Engineer Name Role Phone DIGNA GUERRERO Unavailable PROBLEMS Type Condition ICD9-CM Code UAT15-SG Code Onset Dates Condition Status SNOMED Code Problem 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 Active 94690429 Problem Depressive disorder, not elsewhere classified F32.9 Active 09808363 Problem Chronic posttraumatic stress disorder F43.12 Active 554763001 Problem Insomnia G47.00 Active 670219116 Problem Obesity E66.9 Active 582965612 Problem Other chronic pain G89.29 Active 45246520 Problem Fatty liver K76.0 Active 513125172 Problem Abuse, drug or alcohol F19.10 Active 95604034 Problem Panic disorder without agoraphobia F41.0 Active 31632493 Problem Panic disorder F41.0 Active 795761236 Problem Hypothyroid E03.9 Active 57091651 Problem BMI 50.0-59.9, adult Z68.43 Active 531190494 Problem Restless legs syndrome G25.81 Active 780545484 Problem Encounter for therapeutic drug level monitoring Z51.81 Active 157182992 Problem Neuropathy G62.9 Active 514567821 Problem 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 Active 63585932 Problem Tachycardia R00.0 Active 4040935 Problem Murmur R01.1 Active 475607295 Problem Orthostatic hypertension I10 Active 99581195 Problem Shortness of breath R06.02 Active 622936680 Problem Sleep apnea in adult G47.33 Active 30910716 Problem Tunnel vision, unspecified laterality H53.489 Active 669121135 Problem Undifferentiated schizophrenia F20.3 Active 009423059 ALLERGIES No Information ENCOUNTERS Encounter Location Date Diagnosis [facility] [place] [id number] [address] 18 Apr, 2018 [facility] [place] [address] [address] 3[address] 17 Mar, 2018 Undifferentiated schizophrenia F20.3 [facility] [place] [id number] [place] [address] 64886- 1716 Mar, [facility] [place] [id number] [place] [address] 46920- 1978 Mar, Undifferentiated schizophrenia F20.3 [facility] [place] [id number] [place] [address] 63848- 8114 Jan, [facility] [place] [id number] [place] [address] 56694- 5095 Jan, Undifferentiated schizophrenia F20.3 [facility] [place] [id number] [place] [address] 05023- 2941 Jan, [facility] [place] [id number] [place] [address] 71554- 7861 Jan, Undifferentiated schizophrenia F20.3 [facility] [place] [id number] [place] [address] 38252- 7786 Dec, [facility] [place] [id number] [place] [address] 36558- 1702 Dec, [facility] [place] [id number] [place] [address] 39840- 7672 Dec, [facility] [place] [id number] [place] [address] 72475- 9466 Dec, Undifferentiated schizophrenia F20.3 ; 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 ; Chronic posttraumatic stress disorder F43.12 and BMI 50.0- 59.9, adult Z68.43 [facility] [place] [id number] [place] [address] 02594- 1344 Dec, [facility] [place] [id number] [place] [address] 60658- 5173 Dec, Undifferentiated schizophrenia F20.3 ; Insomnia G47.00 and Thyroid disorder E07.9 [facility] [place] [id number] [place] [address] 06382- 9043 20 Dec, 2017 Undifferentiated schizophrenia F20.3 [facility] [place] [id number] [place] [address] 15342- 6737 18 Dec, 2017 [facility] [place] [id number] [place] [address] 10128- 8323 15 Dec, 2017 [facility] [place] [id number] [place] [address] 33311- 6943 14 Dec, 2017 BMI 50.0-59.9, adult Z68.43 ; Undifferentiated schizophrenia F20.3 ; Panic disorder without agoraphobia F41.0 and Chronic posttraumatic stress disorder F43.12 [facility] [place] [id number] [place] [address] 41459- 0659 04 Dec, 2017 [facility] [place] [id number] [place] [address] 99674- 9430 October, [facility] [place] [id number] [place] [address] 51970- 3105 October, Pain in right shoulder M25.511 and Other chronic pain G89.29 [facility] [place] [id number] [place] [address] 60902- 1265 October, Hypothyroid E03.9 [facility] [place] [id number] [place] [address] 03811- 0687 Oct, Undifferentiated schizophrenia F20.3 [facility] [place] [id number] [place] [address] 96434- 5810 Oct, [facility] [place] [id number] [place] [address] 61024- 3607 Oct, [facility] [place] [id number] [place] [address] 25137- 8603 Aug, Undifferentiated schizophrenia F20.3 [facility] [place] [address] [address]- 7245 Aug, [facility] [place] [id number] [place] [address] 81940- 7018 13 Aug, 2017 Undifferentiated schizophrenia F20.3 ; 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 ; Chronic posttraumatic stress disorder F43.12 and BMI 50.0- 59.9, adult Z68.43 [facility] [place] [id number] [place] [address] 32764- 9180 05 Aug, 2017 [facility] [place] [address] 59311- 3959 Aug, [facility] [place] [id number] [place] [address] 77736- 6399 Aug, Undifferentiated schizophrenia F20.3 [facility] [place] [id number] [place] [address] 06894- 9929 Aug, Hypothyroid E03.9 [facility] [place] [id number] [place] [address] 01238- 8765 Jul, Undifferentiated schizophrenia F20.3 [facility] [place] [id number] [place] [address] 60967- 9260 Jul, [facility] [place] [id number] [place] [address] 32383- 3497 Jul, Undifferentiated schizophrenia F20.3 ; Chronic posttraumatic stress disorder F43.12 ; 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 and BMI 50.0-59.9, adult Z68.43 [facility] [place] [id number] [place] [address] 36886- 4596 Jul, [facility] [place] [id number] [place] [address] 23739- 6947 Jul, Acute pain of right shoulder M25.511 ; High risk medication use Z79.899 ; Needle stick injury W27.3XXA ; Hypothyroid E03.9 and BMI 50.0-59.9 , adult Z68.43 [facility] [place] [id number] [place] [address] 20427- 6094 Jun, Undifferentiated schizophrenia F20.3 [facility] [place] [id number] [place] [address] 45087- 6118 14 Jun, 2017 Undifferentiated schizophrenia F20.3 ; Panic disorder without agoraphobia F41.0 ; Chronic posttraumatic stress disorder F43.12 and BMI 50.0-59.9, adult Z68.43 [facility] [place] [id number] [place] [address] 87613- 6041 May, [facility] [place] [id number] [place] [address] 85125- 5420 May, [facility] [place] [id number] [place] [address] 85813- 8396 May, Undifferentiated schizophrenia F20.3 [facility] [place] [id number] [place] [address] 09107- 4020 May, [facility] [place] [id number] [place] [address] 01469- 3810 May, [facility] [place] [id number] [place] [address] 18260- 1369 15 May, 2017 Hypothyroid E03.9 [facility] [place] [address] 34174- 4919 May, [facility] [place] [id number] [place] [address] 86328- 7873 10 May, 2017 [facility] [place] [id number] [place] [address] 01500- 7586 07 May, 2017 Chronic posttraumatic stress disorder F43.12 ; 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 ; Undifferentiated schizophrenia F20.3 ; BMI 40.0-44.9, adult Z68.41 and Obesity E66.9 [facility] [place] [id number] [place] [address] 61997- 2656 07 May, 2017 Shortness of breath R06.02 [facility] [place] [id number] [place] [address] 17404- 9513 May, [facility] [place] [address] [address]- 3014 Apr, Undifferentiated schizophrenia F20.3 [facility] [place] [id number] [place] [address] 24939- 3013 Apr, [facility] [place] [id number] [place] [address] 97558- 5349 Apr, [facility] [place] [id number] [place] [address] 03438- 5728 Mar, Undifferentiated schizophrenia F20.3 ; Panic disorder without agoraphobia F41.0 and Chronic posttraumatic stress disorder F43.12 [facility] [place] [id number] [place] [address] 39678- 0911 Mar, Undifferentiated schizophrenia F20.3 [facility] [place] [id number] [place] [address] 61222- 4123 Mar, [facility] [place] [id number] [place] [address] 70698- 2431 Mar, [facility] [place] [id number] [place] [address] 13177- 4695 Mar, [facility] [place] [id number] [place] [address] 98540- 8040 Jan, Undifferentiated schizophrenia F20.3 [facility] [place] [id number] [place] [address] 58658- 1644 Jan, [facility] [place] [id number] [place] [address] 15845- 3926 Jan, [facility] [place] [address] [address]- 0118 Jan, [facility] [address] [facility] [address] [id number] [id number] Dec, Needle stick injury W27.3XXA [facility] [place] [address] [address]- 4139 Dec, Needle stick injury W27.3XXA [facility] [address] [address]- 8399 Dec, Undifferentiated schizophrenia F20.3 [facility] [place] [id number] [address]- 3555 Dec, [facility] [place] [id number] [address]- 0714 Dec, [facility] [place] [id number] [place] [address] 86062- 8286 Dec, Undifferentiated schizophrenia F20.3 ; 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 and Chronic posttraumatic stress disorder F43.12 [facility] [place] [id number] [place] [address] 73453- 1549 Dec, [facility] [place] [id number] [place] [address] 59397- 5881 October, [facility] [place] [id number] [place] [address] 49017- 2762 October, Undifferentiated schizophrenia F20.3 [facility] [place] [address] [address]- 0484 October, [facility] [place] [address] [address]- 9273 October, [facility] [place] [address] [address]- 0912 Oct, Undifferentiated schizophrenia F20.3 ; 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 ; Chronic posttraumatic stress disorder F43.12 and Obesity E66.9 [facility] [place] [address] [address]- 3762 Oct, [facility] [place] [id number] [place] [address] 69288- 2684 Oct, [facility] [place] [address] [address]- 9437 Aug, Undifferentiated schizophrenia F20.3 [facility] [place] [address] [address]- 9148 17 Aug, 2016 [facility] [place] [id number] [place] [address] 98001- 5671 Aug, Muscle spasm M62.838 [facility] [place] [id number] [place] [address] 53127- 5673 06 Aug, 2016 Undifferentiated schizophrenia F20.3 [facility] [place] [id number] [place] [address] 70809- 3072 Aug, Undifferentiated schizophrenia F20.3 ; 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 ; Chronic posttraumatic stress disorder F43.12 ; High risk medication use Z79.899 and 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 [id number] [place] [address] 35435- 9375 Aug, Undifferentiated schizophrenia F20.3 [address] [facility] [id number] [place] [address] 65753- 1285 Aug, [address] [place] [id number] [place] [address] 99194- 9981 14 Aug, 2016 Acute non-recurrent maxillary sinusitis J01.00 [id number] [place] [address] 62416- 8631 10 Aug, 2016 [address] [id number] [place] [address] 04180- 0645 Aug, [facility] [place] [id number] [place] [address] 62818- 7821 Jul, Undifferentiated schizophrenia F20.3 [facility] [place] [id number] [place] [address] 36707- 2700 Jul, Schizophrenia, undifferentiated F20.3 ; 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 ; Post-traumatic stress disorder F43.10 ; Panic disorder F41.0 and Depressive disorder, not elsewhere classified F32.9 [facility] [place] [id number] [place] [address] 99330- 6782 Jul, [facility] [place] [id number] [place] [address] 01669- 3376 Jul, Schizophrenia, undifferentiated F20.3 ; 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 ; Post-traumatic stress disorder F43.10 ; Panic disorder F41.0 and Depressive disorder, not elsewhere classified F32.9 [facility] [place] [id number] [place] [address] 10296- 4653 Jul, [facility] [place] [id number] [place] [address] 28819- 4043 Jul, Undifferentiated schizophrenia F20.3 ; 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 ; 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 ; Obesity E66.9 and Chronic posttraumatic stress disorder F43.12 [facility] [place] [id number] [place] [address] 62233- 5777 Jun, [facility] [place] [id number] [place] [address] 88286- 7090 Jun, [facility] [place] [id number] [place] [address] 71934- 1620 Jun, Dental caries K02.9 [facility] [place] [id number] [place] [address] 84570- 3514 Jun, Undifferentiated schizophrenia F20.3 [facility] [place] [address] [address]- 5147 May, [facility] [place] [id number] [place] [address] 84042- 1989 29 May, 2016 Undifferentiated schizophrenia F20.3 ; 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 and Chronic post-traumatic stress disorder (PTSD) F43.12 [facility] [place] [id number] [place] [address] 36781- 1611 May, [facility] [place] [address] [address]- 5754 May, Undifferentiated schizophrenia F20.3 [place] [id number] [place] [address] 96764- 1964 10 May, 2016 [place] [address] 85024- 4855 07 May, 2016 Dental examination Z01.20 [place] [id number] [place] [address] 26971- 3268 20 Apr, 2016 Undifferentiated schizophrenia F20.3 ; PTSD (post-traumatic stress disorder) F43.10 and Obesity E66.9 [place] [id number] [place] [address] 18408- 1037 18 Apr, 2016 [place] [address] 24811- 0381 15 Mar, 2016 [place] [address] 74783- 4318 09 Mar, 2016 [place] [address] 16173- 9855 Jan, Shortness of breath R06.02 and Bipolar disorder with psychotic features F31.9 [place] [address] 11884- 1076 Jan, [place] [id number] [place] [address] 90632- 7734 Jan, Increased intracranial pressure G93.2 ; Visual disturbance H53.9 and Bipolar II disorder F31.81 [place] [id number] [place] [address] 45793- 2806 Jan, [place] [id number] [place] [address] 07461- 6891 Jan, [place] [id number] [place] [address] 64342- 2626 Jan, [place] [id number] [place] [address] 02342- 0018 Jan, Acquired hypothyroidism E03.9 ; Depression F32.9 and Insomnia G47.00 [id number] [place] [address] 62678- 2648 Jan, Exertional dyspnea R06.09 ; Heart palpitations R00.2 ; Hyperlipidemia, unspecified hyperlipidemia type E78.5 ; Hypothyroidism, unspecified type E03.9 and Hypokalemia E87.[address] 78193- 4199 Dec, PTSD (post-traumatic stress disorder) F43.10 ; Depression F32.9 ; Insomnia G47.00 and Bipolar disorder with psychotic features F31.[address] 56166- 2338 Dec, Increased intracranial pressure G93.[address] 66135- 4202 Dec, [address] 48798- 3875 Dec, Shortness of breath R06.[address] 28592- 0674 Dec, Visual disturbance H53.9 and Headache, unspecified headache type R51 [address] 98948- 4996 Dec, Insomnia G47.[address] 83803- 9470 Dec, Murmur R01.[address] 41178- 1923 Dec, Murmur R01.1 ; Tunnel vision, unspecified laterality H53.489 ; Orthostatic hypertension I10 ; Shortness of breath R06.02 and Tachycardia R00.0 [id number] [place] [address] 20638- 6491 Dec, [address] 81816- 9622 Dec, Hypothyroid E03.9 and Bipolar 1 disorder F31.9 [facility] [place] [id number] [place] [address] 23341- 5349 Dec, Bipolar 1 disorder F31.9 [facility] [place] [address] [address]- 9310 Dec, [facility] [place] [id number] [place] [address] 22921- 2464 October, Acquired hypothyroidism E03.9 ; Depression F32.9 and Insomnia G47.00 [facility] [place] [id number] [place] [address] 21346- 7016 October, [facility] [place] [id number] [place] [address] 44771- 4856 October, Bipolar 1 disorder F31.9 ; PTSD (post-traumatic stress disorder) F43.10 and 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 [facility] [place] [id number] [place] [address] 84836- 5387 Oct, Bipolar 1 disorder F31.9 and Insomnia G47.00 [facility] [place] [id number] [place] [address] 24445- 1546 Oct, [facility] [place] [id number] [place] [address] 44439- 3349 Oct, [facility] [place] [id number] [place] [address] 83250- 6698 Aug, Hypothyroid E03.9 [facility] [place] [id number] [place] [address] 95212- 8427 Aug, Encounter for therapeutic drug level monitoring Z51.81 and Other long term care administrator (current) drug therapy Z79.899 [facility] [place] [id number] [address] Aug, Encounter for therapeutic drug level monitoring Z51.81 [facility] [place] [id number] [place] [address] 21445- [phone] Aug, Acquired hypothyroidism E03.9 ; Leg pain M79.606 and Bipolar 1 disorder F31.9 [facility] [place] [address] [address] Aug, [facility] [place] [address] [address]- [address] Aug, [facility] [place] [address] [address]- [address] Jul, Thyroid disorder E07.9 [place] [address] [address]- [address] Jul, Rash R21 ; Abnormal LFTs R94.5 ; Acquired hypothyroidism E03.9 ; Sleep apnea in adult G47.33 and Fatty liver K76.0 [place] [address] [address]- [address] Jun, [facility] [place] [id number] [place] [address] [phone]- [phone] Jun, [facility] [facility] [place] [address] [address] Jun, Bipolar II disorder F31.81 and Social phobia, generalized F40.11 [place] [id number] [place] [address]- 2950 Mar, Bipolar II disorder 296.89 and Social phobia 300.23 [facility] [place] [id number] [place] [address]- 8867 Dec, [facility] [place] [address] [address] Dec, [facility] [place] [address] [address] Dec, Bipolar II disorder in partial or unspecified remission 296.89 and Social phobia, generalized 300.23 [facility] [place] [address] [place] [address] 30 Oct, 2014 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 [facility] [address] [id number] [place] [address] 14 Oct, 2014 [facility] [place] [facility] [address] [id number] [place] [address] 4136 Oct, [facility] [address] [id number] [place] [address]- 1745 Aug, [facility] [place] [facility] [address] [id number] [place] [address]- 4992 Aug, [facility] [place] [facility] [address] [id number] [place] [address]- 6577 Aug, [facility] [place] [facility] [address] [id number] [place] [address]- 1368 Aug, [facility] [place] [facility] [address] [id number] [place] [address]- 3923 Aug, [facility] [place] [facility] [address] [id number] [place] [address]- 5501 Aug, [facility] [place] [facility] [address] [id number] [place] [address]- 1126 Aug, [facility] [place] [facility] [address] [id number] [place] [address]- 0437 Aug, [facility] [place] [facility] [address] [id number] [place] [address]- 8355 Jul, [facility] [place] [facility] [address] [id number] [place] [address]- 4672 Jul, [facility] [place] [facility] [address] [id number] [place] [address]- 3683 Jul, [facility] [place] [facility] [address] [id number] [place] [address]- 3546 Jul, [facility] [place] [facility] [address] [id number] [place] [address]- 9980 Jul, [facility] [place] [facility] [address] [id number] [place] [address]- 6537 Jul, [facility] [place] [facility] [address] [id number] [place] [address]- 5996 Jun, [facility] [place] [facility] [address] [id number] [place] [address] Jun, [facility] [place] [facility] [address] [id number] [place] [address]- 7135 Jun, [facility] [place] [facility] [address] [id number] [place] [address]- 6505 Jun, [facility] [place] [facility] [address] [id number] [place] [address]- 7807 Jun, [facility] [place] [facility] [address] [id number] [place] [address]- 3429 Jun, [facility] [place] [facility] [address] [id number] [place] [address]- 3044 Jun, [facility] [place] [facility] [address] [id number] [place] [address]- 9619 Jun, [facility] [place] [facility] [address] [id number] [place] [address]- 8945 Jun, [facility] [place] [facility] [address] [id number] [place] [address]- 9816 Jun, [facility] [place] [facility] [address] [id number] [address]- 0833 Jun, [facility] [place] [facility] [address] [id number] [place] [address]- 5365 Jun, [facility] [place] [facility] [address] [id number] [place] [address]- 6886 Jun, [facility] [place] [facility] [address] [id number] [place] [address] Jun, [facility] [place] [facility] [address] [id number] [place] [address]- 6530 Jun, [facility] [place] [facility] [address] [id number] [place] [address]- 1260 Jun, [facility] [place] [facility] [address] [id number] [place] [address]- 7161 May, [facility] [place] [facility] [address] [id number] [place] [address]- 6283 May, [facility] [place] [facility] [address] [id number] [place] [address]- 6594 May, [facility] [place] [facility] [address] [id number] [place] [address]- 7660 May, [facility] [place] [facility] [address] [id number] [place] [address]- 8521 May, [facility] [place] [facility] [address] [id number] [place] [address]- 1404 May, [facility] [place] [facility] [address] [id number] [place] [address]- 1098 Apr, [facility] [place] [facility] [address] [id number] [place] [address]- 6370 Apr, [facility] [place] [facility] [address] [facility] [id number] [place] [address]- 6891 Apr, [facility] [place] [facility] [address] [id number] [place] [address]- 9005 Apr, [facility] [place] [facility] [address] [id number] [address]- 8704 Apr, [facility] [place] [facility] [address] [id number] [place] [address]- 2215 Apr, [facility] [place] [facility] [address] [id number] [place] [address] Mar, [facility] [place] [facility] [address] [id number] [place] [address]- 1735 Mar, [facility] [place] [facility] [address] [id number] [place] [address]- 3800 Mar, [facility] [place] [facility] [address] [id number] [place] [address]- 3667 Mar, [facility] [place] [facility] [address] [id number] [place] [address]- 5787 Jan, [facility] [place] [facility] [address] [id number] [place] [address]- 4319 Jan, [facility] [place] [facility] [address] [id number] [place] [address]- 6582 Jan, [facility] [place] [facility] [address] [id number] [place] [address]- 0845 Jan, [facility] [place] [facility] [address] [id number] [place] [address]- 3224 Jan, [facility] [place] [facility] [address] [id number] [place] [address]- 8203 Jan, [facility] [place] [facility] [address] [id number] [place] [address]- 2566 Dec, [facility] [place] [facility] [address] [id number] [place] [address]- 0174 Dec, [facility] [place] [facility] [address] [id number] [place] [address]- 8252 Dec, [facility] [place] [facility] [address] [id number] [place] [address]- 9405 Dec, [facility] [place] [facility] [address] [id number] [place] [address]- 8043 Dec, [facility] [place] [facility] [address] [id number] [place] [address]- 7106 Dec, [facility] [place] [facility] [address] [id number] [place] [address]- 4394 October, [facility] [place] [facility] [address] [id number] [place] [address]- 6416 October, [facility] [place] [facility] [address] [id number] [place] [address]- 9719 October, [facility] [place] [facility] [address] [id number] [place] [address] October, [facility] [place] [facility] [address] [id number] [place] [address]- 3214 October, [facility] [place] [facility] [address] [id number] [place] [address]- 9214 October, [facility] [place] [facility] [address] [id number] [place] [address]- 1894 October, [facility] [place] [facility] [address] [id number] [place] [address]- 4313 October, [facility] [place] [facility] [address] [id number] [place] [address]- 1920 Oct, [facility] [place] [facility] [address] [id number] [place] [address]- 4793 Oct, [facility] [place] [facility] [address] [id number] [place] [address]- 1643 Oct, [facility] [place] [facility] [address] [id number] [place] [address]- 0406 Oct, [facility] [place] [facility] [address] [id number] [place] [address]- 5792 Oct, [facility] [place] [facility] [address] [id number] [place] [address]- 2163 Aug, [facility] [place] [facility] [address] [id number] [place] [address]- 9497 Aug, [facility] [place] [facility] [address] [id number] [place] [address]- 3338 Aug, [facility] [place] [facility] [address] [id number] [place] [address]- 8269 Aug, [facility] [place] [facility] [address] [id number] [place] [address]- 4659 07 Aug, 2013 [facility] [address] [id number] [place] [address]- 7026 07 Aug, 2013 [facility] [address] [id number] [place] [address]- 7485 Jul, [facility] [address] [id number] [place] [address]- 8995 Jul, [facility] [address] [id number] [place] [address]- 9760 Jul, [facility] [address] [id number] [place] [address]- 9019 Jul, [facility] [address] [id number] [place] [address]- 8298 Jul, [facility] [address] [id number] [place] [address]- 9575 Jul, [facility] [address] [id number] [place] [address]- 3809 Jun, [facility] [address] [id number] [place] [address]- 4548 Jun, [facility] [address] [id number] [place] [address]- 0529 Jun, [facility] [place] [facility] [address] [id number] [place] [address]- 5356 Jun, [facility] [address] [id number] [place] [address]- 5133 Jun, [facility] [place] [facility] [address] [id number] [place] [address]- 1613 Jun, [facility] [place] [facility] [address] [id number] [place] [address]- 2546 May, [facility] [place] [facility] [address] [id number] [place] [address]- 2084 May, [facility] [place] [facility] [address] [id number] [place] [address]- 3770 Apr, [facility] [place] [facility] [address] [id number] [place] [address]- 5151 Apr, [facility] [place] [facility] [address] [id number] [place] [address]- 1089 Apr, [facility] [place] [facility] [address] [id number] [place] [address]- 8396 Apr, [facility] [place] [facility] [address] [id number] [place] [address]- 4841 Apr, [facility] [place] [facility] [address] [id number] [place] [address]- 9303 Apr, [facility] [place] [facility] [address] [id number] [place] [address]- 8251 Apr, [facility] [place] [facility] [address] [id number] [address]- 7415 Apr, [facility] [place] [facility] [address] [id number] [place] [address]- 7844 Apr, [facility] [place] [facility] [address] [id number] [address]- 8047 Apr, [facility] [place] [facility] [address] [id number] [place] [address]- 9664 Apr, [facility] [place] [facility] [address] [id number] [address]- 6332 23 Mar, 2013 [facility] [place] [facility] [address] [id number] [place] [address]- 8882 20 Mar, 2013 [facility] [place] [facility] [address] [id number] [address]- 6736 20 Mar, 2013 [facility] [place] [facility] [address] [id number] [place] [address]- 5740 14 Mar, 2013 [facility] [place] [facility] [address] [id number] [place] [address]- 9950 Mar, [facility] [place] [facility] [address] [id number] [place] [address]- 9887 Mar, [facility] [place] [facility] [address] [id number] [place] [address]- 2395 Mar, [facility] [place] [facility] [address] [id number] [place] [address]- 5926 Jan, [facility] [place] [facility] [address] [id number] [place] [address]- 9244 Jan, [facility] [place] [facility] [address] [id number] [place] [address]- 4012 Jan, [facility] [place] [facility] [address] [id number] [place] [address]- 6333 Jan, [facility] [place] [facility] [address] [id number] [place] [address]- 3037 Jan, [facility] [place] [facility] [address] [id number] [place] [address]- 8497 Jan, [facility] [place] [facility] [address] [id number] [place] [address]- 2111 Jan, [facility] [place] [facility] [address] [id number] [place] [address]- 6157 Dec, [facility] [place] [facility] [address] [id number] [place] [address]- 6935 Dec, [facility] [place] [facility] [address] [id number] [place] [address]- 0773 Dec, [facility] [place] [facility] [address] [id number] [place] [address]- 1512 Dec, [facility] [place] [facility] [address] [id number] [place] [address]- 6385 Dec, [facility] [place] [facility] [address] [id number] [place] [address]- 5558 Dec, [facility] [place] [facility] [address] [id number] [place] [address]- 9424 17 Oct, 2012 [facility] [address] [id number] [place] [address]- 9866 October, [facility] [address] [id number] [place] [address]- 4988 October, [facility] [address] [id number] [place] [address]- 4497 October, [facility] [address] [id number] [place] [address]- 4475 Oct, [facility] [address] [id number] [place] [address]- 1025 Oct, [facility] [address] [id number] [place] [address]- 6331 Aug, [facility] [address] [id number] [place] [address]- 3168 Aug, [facility] [address] [id number] [place] [address]- 2005 Aug, [facility] [address] [id number] [place] [address]- 0779 Aug, [facility] [address] [id number] [place] [address]- 5362 Aug, [facility] [address] [id number] [place] [address]- 8366 Aug, [facility] [address] [id number] [place] [address]- 2174 Aug, [facility] [address] [id number] [place] [address]- 7057 Aug, [facility] [address] [id number] [place] [address]- 5569 Aug, [facility] [address] [id number] [address]- 1548 Aug, [facility] [place] [address] [address]- 6238 Aug, [facility] [place] [address] [id number] [address]- 4456 Aug, [facility] [place] [address]00565[place] [address]- 0306 Aug, [facility] [place] [address]00565100[place] [address]- 1641 Aug, [facility] [place] [address] [address]604 Jul, [facility] [place] [address] [address]- 2034 Jul, [facility] [place] [address]005[place] [address]- 7942 Jul, [facility] [place] [address] [address]- 1253 Jul, [facility] [place] [address]005[place] [address]- 4301 Jun, [facility] [place] [address] [address]- 1330 Jun, [facility] [place] [address]65100[place] [address]- 3469 Jun, [facility] [place] [address] [address]- 9040 Jun, [facility] [place] [address] 1446 May, [facility] [place] [address] [address]169 May, IMMUNIZATIONS No Known Immunizations SOCIAL HISTORY Never Assessed REASON FOR VISIT [facility] PLAN OF CARE VITAL SIGNS MEDICATIONS [...]
--- OUTSIDE RECORDS SUMMARY | 2018-09-02 17:59 | XMS REPORT ---
Author Author AMARI HOWARD [facility] Address [address] [place] [address] Care Team Providers Care Chainstitch Seat Joiner Name Role Phone AMARI HOWARD Unavailable PROBLEMS Type Condition ICD9-CM Code [id number] Code Onset Dates Condition Status SNOMED Code Problem 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 Active 40708077 Problem Depressive disorder, not elsewhere classified F32.9 Active 80381120 Problem Chronic posttraumatic stress disorder F43.12 Active 123000111 Problem Insomnia G47.00 Active 323287577 Problem Obesity E66.9 Active 548443903 Problem Other chronic pain G89.29 Active 29084156 Problem Fatty liver K76.0 Active 305587609 Problem Abuse, drug or alcohol F19.10 Active 17787494 Problem Panic disorder without agoraphobia F41.0 Active 11350452 Problem Panic disorder F41.0 Active 521471976 Problem Hypothyroid E03.9 Active 10185403 Problem BMI 50.0-59.9, adult Z68.43 Active 519903830 Problem Restless legs syndrome G25.81 Active 475284389 Problem Encounter for therapeutic drug level monitoring Z51.81 Active 277043131 Problem Neuropathy G62.9 Active 548653301 Problem 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 Active 79386923 Problem Tachycardia R00.0 Active 7795925 Problem Murmur R01.1 Active 547550319 Problem Orthostatic hypertension I10 Active 83327763 Problem Shortness of breath R06.02 Active 504356875 Problem Sleep apnea in adult G47.33 Active 28043657 Problem Tunnel vision, unspecified laterality H53.489 Active 293621700 Problem Undifferentiated schizophrenia F20.3 Active 243523285 ALLERGIES No Information ENCOUNTERS Encounter Location Date Diagnosis [facility] [address] [facility] [id number] [address] 18 Apr, 2018 [facility] [address] [address] Mar, Undifferentiated schizophrenia F20.3 [facility] [id number] [address] 45[address] Jan, [facility] [id number] [address] 3094 Jan, Undifferentiated schizophrenia F20.3 [facility] [id number] [place] [address] 56902- 1909 Jan, [facility] [id number] [place] [address] 51910- 5969 Jan, Undifferentiated schizophrenia F20.3 [facility] [id number] [place] [address] 00022- 3790 Dec, [facility] [id number] [place] [address] 83613- 3934 Dec, [facility] [id number] [place] [address] 80358- 7140 Dec, [facility] [id number] [place] [address] 15628- 9335 Dec, Undifferentiated schizophrenia F20.3 ; 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 ; Chronic posttraumatic stress disorder F43.12 and BMI 50.0- 59.9, adult Z68.43 [facility] [address] [address] 9964 Dec, [facility] [address] [address]- 3152 Dec, Undifferentiated schizophrenia F20.3 ; Insomnia G47.00 and Thyroid disorder E07.9 [facility] [address] [address]- 0179 Dec, Undifferentiated schizophrenia F20.3 [facility] [address] [address] 2718 Dec, [facility] [id number] [place] [address] 94998- 5223 15 Dec, 2017 [facility] [id number] [place] [address] 31287- 6390 14 Dec, 2017 BMI 50.0-59.9, adult Z68.43 ; Undifferentiated schizophrenia F20.3 ; Panic disorder without agoraphobia F41.0 and Chronic posttraumatic stress disorder F43.12 [facility] [id number] [place] [address] 11773- 0324 04 Dec, 2017 [facility] [id number] [place] [address] 51972- 1755 October, [facility] [id number] [place] [address] 03237- 5147 October, Pain in right shoulder M25.511 and Other chronic pain G89.29 [facility] [id number] [place] [address] 90273- 0818 October, Hypothyroid E03.9 [facility] [id number] [place] [address] 81694- 5977 Oct, Undifferentiated schizophrenia F20.3 [facility] [id number] [place] [address] 19485- 0576 Oct, [facility] [id number] [place] [address] 67171- 2097 Oct, [facility] [id number] [place] [address] 42399- 0835 Aug, Undifferentiated schizophrenia F20.3 [facility] [id number] [place] [address] 70882- 7977 Aug, [facility] [id number] [place] [address] 88977- 3250 Aug, Undifferentiated schizophrenia F20.3 ; 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 ; Chronic posttraumatic stress disorder F43.12 and BMI 50.0- 59.9, adult Z68.43 [facility] [address] [address]- 7183 Aug, [facility] [id number] [place] [address] 49385- 8695 Aug, [facility] [id number] [place] [address] 33787- 7102 Aug, Undifferentiated schizophrenia F20.3 [facility] [id number] [place] [address] 76030- 4182 Aug, Hypothyroid E03.9 [facility] [id number] [place] [address] 49058- 8507 Jul, Undifferentiated schizophrenia F20.3 [facility] [id number] [place] [address] 57225- 5052 Jul, [facility] [id number] [place] [address] 88366- 1216 Jul, Undifferentiated schizophrenia F20.3 ; Chronic posttraumatic stress disorder F43.12 ; 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 and BMI 50.0-59.9, adult Z68.43 [facility] [id number] [place] [address] 94883- 0418 15 Jul, 2017 [facility] [id number] [place] [address] 00466- 8494 08 Jul, 2017 Acute pain of right shoulder M25.511 ; High risk medication use Z79.899 ; Needle stick injury W27.3XXA ; Hypothyroid E03.9 and BMI 50.0-59.9 , adult Z68.43 [facility] [address] [address]- 6588 Jun, Undifferentiated schizophrenia F20.3 [facility] [address] [address]- 3017 14 Jun, 2017 Undifferentiated schizophrenia F20.3 ; Panic disorder without agoraphobia F41.0 ; Chronic posttraumatic stress disorder F43.12 and BMI 50.0-59.9, adult Z68.43 [facility] [id number] [place] [address] 94305- 6087 May, [facility] [id number] [place] [address] 17753- 8602 May, [facility] [id number] [place] [address] 72213- 7636 May, Undifferentiated schizophrenia F20.3 [facility] [id number] [place] [address] 24474- 0311 May, [facility] [id number] [place] [address] 15963- 0342 May, [facility] [id number] [place] [address] 76050- 9648 May, Hypothyroid E03.9 [facility] [address] 15408- 3103 May, [facility] [id number] [place] [address] 76154- 4744 May, [facility] [id number] [place] [address] 02563- 7242 May, Chronic posttraumatic stress disorder F43.12 ; 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 ; Undifferentiated schizophrenia F20.3 ; BMI 40.0-44.9, adult Z68.41 and Obesity E66.9 [facility] [id number] [place] [address] 69410- 3738 May, Shortness of breath R06.02 [facility] [id number] [place] [address] 50346- 6966 May, [facility] [id number] [place] [address] 73299- 0742 Apr, Undifferentiated schizophrenia F20.3 [facility] [id number] [place] [address] 16571- 7598 Apr, [facility] [address] [address]- 5018 Apr, [facility] [id number] [place] [address] 36605- 6195 Mar, Undifferentiated schizophrenia F20.3 ; Panic disorder without agoraphobia F41.0 and Chronic posttraumatic stress disorder F43.12 [facility] [id number] [place] [address] 08201- 0948 Mar, Undifferentiated schizophrenia F20.3 [facility] [id number] [place] [address] 00651- 7181 18 Mar, 2017 [facility] [id number] [place] [address] 89372- 1949 08 Mar, 2017 [facility] [id number] [place] [address] 10024- 8741 Mar, [facility] [id number] [place] [address] 07085- 0807 Jan, Undifferentiated schizophrenia F20.3 [facility] [id number] [place] [address] 37505- 4600 Jan, [facility] [id number] [place] [address] 58707- 9467 Jan, [facility] [id number] [address]- 5420 Jan, [address] [id number] [id number] Dec, Needle stick injury W27.3XXA [facility] [id number] [place] [address] 19979- 1791 Dec, Needle stick injury W27.3XXA [facility] [address] [address]- 3416 Dec, Undifferentiated schizophrenia F20.3 [facility] [id number] [place] [address] 76685- 7386 Dec, [facility] [address] [address]- 9561 Dec, [facility] [id number] [address]- 6619 Dec, Undifferentiated schizophrenia F20.3 ; 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 and Chronic posttraumatic stress disorder F43.12 [facility] [id number] [place] [address] 21155- 6661 Dec, [facility] [id number] [place] [address] 17012- 3732 October, [facility] [id number] [place] [address] 10991- 8112 October, Undifferentiated schizophrenia F20.3 [facility] [id number] [address]- 8325 October, [facility] [id number] [place] [address] 73498- 4092 October, [facility] [address] [address]- 6512 Oct, Undifferentiated schizophrenia F20.3 ; 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 ; Chronic posttraumatic stress disorder F43.12 and Obesity E66.9 [facility] [address] [address]- 7231 Oct, [facility] [id number] [address]- 0228 Oct, [facility] [address] [address]- 5771 Aug, Undifferentiated schizophrenia F20.3 [facility] [address] [address]- 5896 Aug, [facility] [address] [address]- 4835 Aug, Muscle spasm M62.838 [facility] [id number] [place] [address] 79270- 2804 Aug, Undifferentiated schizophrenia F20.3 [facility] [id number] [place] [address] 40722- 0778 Aug, Undifferentiated schizophrenia F20.3 ; Panic disorder with agoraphobia F40.01 ; Chronic posttraumatic stress disorder F43.12 ; High risk medication use Z79.899 and 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 [facility] [id number] [place] [address] 54499- 6917 Aug, Undifferentiated schizophrenia F20.3 [facility] [id number] [place] [address] 02909- 7415 Aug, [facility] [id number] [place] [address] 91068- 7705 Aug, Acute non-recurrent maxillary sinusitis J01.00 [facility] [id number] [place] [address] 70643- 7199 Aug, [facility] [id number] [place] [address] 06569- 0073 Aug, [facility] [id number] [place] [address] 06815- 8647 Jul, Undifferentiated schizophrenia F20.3 [facility] [id number] [place] [address] 32831- 8023 Jul, Schizophrenia, undifferentiated F20.3 ; 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 ; Post-traumatic stress disorder F43.10 ; Panic disorder F41.0 and Depressive disorder, not elsewhere classified F32.9 [facility] [id number] [place] [address] 68664- 0045 Jul, [facility] [address] [place] [address] 27779- 2273 Jul, Schizophrenia, undifferentiated F20.3 ; 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 ; Post-traumatic stress disorder F43.10 ; Panic disorder F41.0 and Depressive disorder, not elsewhere classified F32.9 [facility] [id number] [place] [address] 68031- 5095 Jul, [facility] [id number] [place] [address] 66360- 6586 Jul, Undifferentiated schizophrenia F20.3 ; Panic disorder with agoraphobia F40.01 ; 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 ; Obesity E66.9 and Chronic posttraumatic stress disorder F43.12 [facility] [id number] [place] [address] 14801- 6577 Jun, [facility] [address] 80888- 4670 Jun, [facility] [id number] [place] [address] 16091- 1765 Jun, Dental caries K02.9 [facility] [id number] [place] [address] 21643- 3639 Jun, Undifferentiated schizophrenia F20.3 [facility] [id number] [place] [address] 22425- 5951 May, [facility] [id number] [place] [address] 56455- 8400 29 May, 2016 Undifferentiated schizophrenia F20.3 ; Panic disorder with agoraphobia F40.01 and Chronic post-traumatic stress disorder (PTSD) F43.12 [facility] [id number] [place] [address] 06392- 6793 May, [facility] [id number] [place] [address] 11323- 4645 May, Undifferentiated schizophrenia F20.3 [facility] [id number] [place] [address] 64549- 8209 May, [facility] [id number] [place] [address] 77853- 8856 07 May, 2016 Dental examination Z01.20 [facility] [id number] [place] [address] 13491- 2099 Apr, Undifferentiated schizophrenia F20.3 ; PTSD (post-traumatic stress disorder) F43.10 and Obesity E66.9 [facility] [id number] [place] [address] 82321- 7433 Apr, [facility] [address] 26574- 3153 Mar, [facility] [address] 37414- 4011 Mar, [facility] [address] 80723- 1460 Jan, Shortness of breath R06.02 and Bipolar disorder with psychotic features F31.9 [facility] [id number] [place] [address] 12201- 7684 Jan, [facility] [id number] [place] [address] 83100- 5150 Jan, Increased intracranial pressure G93.2 ; Visual disturbance H53.9 and Bipolar II disorder F31.81 [facility] [id number] [place] [address] 65068- 6053 Jan, [facility] [id number] [place] [address] 60277- 5548 Jan, [facility] [id number] [place] [address] 06020- 9630 Jan, [facility] [id number] [place] [address] 56649- 7138 Jan, Acquired hypothyroidism E03.9 ; Depression F32.9 and Insomnia G47.00 [facility] [id number] [place] [address] 47126- 4519 Jan, Exertional dyspnea R06.09 ; Heart palpitations R00.2 ; Hyperlipidemia, unspecified hyperlipidemia type E78.5 ; Hypothyroidism, unspecified type E03.9 and Hypokalemia E87.6 [facility] [id number] [place] [address] 10393- 4712 Dec, PTSD (post-traumatic stress disorder) F43.10 ; Depression F32.9 ; Insomnia G47.00 and Bipolar disorder with psychotic features F31.9 [facility] [id number] [place] [address] 35434- 6448 Dec, Increased intracranial pressure G93.2 [facility] [address] 01188- 0128 Dec, [facility] [address] 25005- 2199 Dec, Shortness of breath R06.02 [facility] [address] 89170- 5165 Dec, Visual disturbance H53.9 and Headache, unspecified headache type R51 [facility] [address] 90557- 0571 Dec, Insomnia G47.00 [facility] [address] 14224- 3709 Dec, Murmur R01.1 [facility] [id number] [place] [address] 79980- 3559 Dec, Murmur R01.1 ; Tunnel vision, unspecified laterality H53.489 ; Orthostatic hypertension I10 ; Shortness of breath R06.02 and Tachycardia R00.0 [facility] [id number] [place] [address] 56727- 3782 Dec, [facility] [address] 13367- 5169 Dec, Hypothyroid E03.9 and Bipolar 1 disorder F31.9 [facility] [id number] [place] [address] 52360- 2718 15 Dec, 2015 Bipolar 1 disorder F31.9 [facility] [address] [place] [address] 76215- 2269 Dec, [facility] [id number] [place] [address] 26834- 2256 October, Acquired hypothyroidism E03.9 ; Depression F32.9 and Insomnia G47.00 [facility] [id number] [place] [address] 07662- 3170 October, [facility] [id number] [place] [address] 49953- 1661 October, Bipolar 1 disorder F31.9 ; PTSD (post-traumatic stress disorder) F43.10 and 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 [facility] [id number] [place] [address] 82743- 8248 Oct, Bipolar 1 disorder F31.9 and Insomnia G47.00 [facility] [id number] [place] [address] 42864- 5594 Oct, [facility] [id number] [place] [address] 54434- 7799 Oct, [facility] [id number] [place] [address] 01661- 4298 Aug, Hypothyroid E03.9 [facility] [id number] [place] [address] 64493- 6775 Aug, Encounter for therapeutic drug level monitoring Z51.81 and 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 [facility] [id number] [place] [address] 95059- 0066 Aug, Encounter for therapeutic drug level monitoring Z51.81 [facility] [id number] [place] [address] 10462- 8960 Aug, Acquired hypothyroidism E03.9 ; Leg pain M79.606 and Bipolar 1 disorder F31.9 [facility] [id number] [place] [address] 72712- 2137 Aug, [facility] [id number] [place] [address] 60464- 0027 Aug, [facility] [id number] [place] [address] 99009- 2898 Jul, Thyroid disorder E07.9 [facility] [id number] [place] [address] 90860- 6410 Jul, Rash R21 ; Abnormal LFTs R94.5 ; Acquired hypothyroidism E03.9 ; Sleep apnea in adult G47.33 and Fatty liver K76.0 [facility] [id number] [place] [address] 86818- 6882 Jun, [facility] [id number] [place] [address] 19533- 8330 Jun, [facility] [id number] [place] [address] 70857- 3304 Jun, Bipolar II disorder F31.81 and Social phobia, generalized F40.11 [facility] [id number] [place] [address] 66916- 0462 Mar, Bipolar II disorder 296.89 and Social phobia 300.23 [facility] [id number] [place] [address] 75722- 0804 Dec, [facility] [id number] [place] [address] 26670- 8988 Dec, [facility] [id number] [place] [address] 58622- 1640 Dec, Bipolar II disorder in partial or unspecified remission 296.89 and Social phobia, generalized 300.23 [facility] [id number] [place] [address] 34478- 4831 Oct, 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 [facility] [id number] [place] [address] 67610- 4181 Oct, [facility] [address] [place] [address]- 1569 Oct, [facility] [place] [facility] [address] [id number] [place] [address] Aug, [facility] [place] [facility] [address] [id number] [place] [address] Aug, [facility] [place] [facility] [address] [id number] [place] [address] Aug, [facility] [place] [facility] [address] [id number] [place] [address] Aug, [facility] [place] [facility] [address] [id number] [place] [address] Aug, [facility] [place] [facility] [address] [id number] [place] [address]- [address]84 Aug, [facility] [place] [facility] [address] [id number] [place] [address] Aug, [facility] [place] [facility] [address] [id number] [place] [address] Aug, [facility] [place] [facility] [address] [id number] [place] [address]- [address] Jul, [facility] [place] [facility] [address] [id number] [place] [address]- [address] Jul, [facility] [place] [facility] [address] [id number] [place] [address]- 1746 Jul, [facility] [place] [facility] [address] [id number] [place] [address] Jul, [facility] [place] [facility] [address] [id number] [place] [address]- 1736 Jul, [facility] [place] [facility] [address] [id number] [place] [address]- 3829 Jul, [facility] [place] [facility] [address] [id number] [place] [address]- 1677 Jun, [facility] [place] [facility] [address] [id number] [place] [address]- 2628 Jun, [facility] [place] [facility] [address] [id number] [place] [address] Jun, [facility] [place] [facility] [address] [id number] [place] [address]- 3532 Jun, [facility] [place] [facility] [address] [id number] [place] [address]- 2383 Jun, [facility] [place] [facility] [address] [id number] [place] [address] Jun, [facility] [place] [facility] [address] [id number] [place] [address]- [address] Jun, [facility] [place] [facility] [address] [id number] [place] [address]- [address] Jun, [facility] [place] [facility] [address] [id number] [place] [address]- 0695 Jun, [facility] [place] [facility] [address] [id number] [place] [address]- 8564 Jun, [facility] [place] [facility] [address] [id number] [place] [address]- 1548 Jun, [facility] [place] [facility] [address] [id number] [place] [address] Jun, [facility] [place] [facility] [address] [id number] [place] [address] Jun, [facility] [place] [facility] [address] [id number] [place] [address] 0098 Jun, [facility] [place] [facility] [address] [id number] [place] [address] 12[address] Jun, [facility] [place] [facility] [address] [id number] [place] [address] 6[address] Jun, [facility] [place] [facility] [address] [id number] [place] [address] 8083 May, [facility] [place] [facility] [address] [id number] [place] [address] 4687 May, [facility] [place] [facility] [address] [id number] [place] [address] May, [facility] [place] [facility] [address] [id number] [place] [address]- 9237 May, [facility] [place] [facility] [address] [id number] [place] [address] 8210 May, [facility] [place] [facility] [address] [id number] [place] [address] 1978 May, [facility] [place] [facility] [address] [id number] [place] [address]- 408[address] Apr, [facility] [place] [facility] [address] [id number] [place] [address]- 5525 Apr, [facility] [place] [facility] [address] [id number] [place] [address]- 9753 Apr, [facility] [place] [facility] [address] [id number] [place] [address]- 1002 Apr, [facility] [place] [facility] [address] [id number] [place] [address]- 7544 Apr, [facility] [place] [facility] [address] [id number] [address] Apr, [facility] [place] [facility] [address] [id number] [address] Mar, [facility] [place] [facility] [address] [id number] [place] [address] 1882 Mar, [facility] [place] [facility] [address] [id number] [place] [address]- 8059 Mar, [facility] [place] [facility] [address] [id number] [place] [address] 3044 Mar, [facility] [place] [facility] [address] [id number] [place] [address] Jan, [facility] [place] [facility] [address] [id number] [place] [address] Jan, [facility] [place] [facility] [address] [id number] [place] [address]- 7893 Jan, [facility] [place] [facility] [address] [id number] [place] [address]- 9277 Jan, [facility] [place] [facility] [address] [id number] [place] [address]- 3[address] Jan, [facility] [place] [facility] [address] [id number] [place] [address]- 4100 Jan, [facility] [place] [facility] [address] [id number] [place] [address]- 5634 Dec, [facility] [place] [facility] [address] [id number] [place] [address] Dec, [facility] [place] [facility] [address] [id number] [place] [address]- [address]256 Dec, [facility] [place] [facility] [address] [id number] [place] [address] 6[address] Dec, [facility] [place] [facility] [address] [id number] [place] [address]- 0518 Dec, [facility] [place] [facility] [address] [id number] [place] [address]- 2362 Dec, [facility] [place] [facility] [address] [id number] [place] [address]- 7678 October, [facility] [place] [facility] [address] [id number] [place] [address] October, [facility] [place] [facility] [address] [id number] [place] [address] October, [facility] [place] [facility] [address] [id number] [place] [address] October, [facility] [place] [facility] [address] [id number] [place] [address]- 0908 October, [facility] [place] [facility] [address] [id number] [place] [address]- 4417 October, [facility] [place] [facility] [address] [id number] [place] [address]- 1594 October, [facility] [place] [facility] [address] [id number] [place] [address]- 7450 October, [facility] [place] [facility] [address] [id number] [place] [address]- 0196 Oct, [facility] [place] [facility] [address] [id number] [place] [address]- 1181 Oct, [facility] [place] [facility] [address] [id number] [place] [address]- 0092 Oct, [facility] [place] [facility] [address] [id number] [place] [address]- 7851 Oct, [facility] [place] [facility] [address] [id number] [place] [address]- 8917 Oct, [facility] [place] [facility] [address] [id number] [place] [address] 8681 Aug, [facility] [place] [facility] [address] [id number] [place] [address]- 6455 Aug, [facility] [place] [facility] [address] [id number] [place] [address]- 0999 Aug, [facility] [place] [facility] [address] [id number] [place] [address] 0628 Aug, [facility] [place] [facility] [address] [id number] [place] [address]- 1143 Aug, [facility] [place] [facility] [address] [id number] [place] [address]- 2013 Aug, [facility] [place] [facility] [address] [id number] [place] [address]- 7702 07 Jul, 2013 [facility] [address] [id number] [place] [address]- 5373 Jul, [facility] [place] [facility] [address] [id number] [place] [address] Jul, [facility] [address] [id number] [place] [address]- 5609 Jul, [facility] [place] [facility] [address] [id number] [place] [address]- 2380 Jul, [facility] [place] [facility] [address] [id number] [place] [address] Jul, [facility] [place] [facility] [address] [id number] [place] [address] 8507 Jun, [facility] [address] [id number] [place] [address]- 2901 Jun, [facility] [place] [facility] [address] [id number] [place] [address]- 0950 Jun, [facility] [place] [facility] [address] [id number] [place] [address]- 2173 Jun, [facility] [place] [facility] [address] [facility] [id number] [place] [address]- 3510 Jun, [facility] [place] [facility] [address] [id number] [place] [address]- 9113 Jun, [facility] [place] [facility] [address] [id number] [place] [address]- 5892 May, [facility] [place] [facility] [address] [id number] [place] [address]- 5022 May, [facility] [place] [facility] [address] [id number] [place] [address] Apr, [facility] [place] [facility] [address] [id number] [place] [address]- 3818 Apr, [facility] [place] [facility] [address] [id number] [place] [address]- 9993 Apr, [facility] [place] [facility] [address] [id number] [place] [address]- 3487 Apr, [facility] [place] [facility] [address] [id number] [place] [address]- 9143 Apr, [facility] [place] [facility] [address] [id number] [place] [address]- 2581 Apr, [facility] [place] [facility] [address] [id number] [place] [address]- 6422 Apr, [facility] [place] [facility] [address] [id number] [place] [address]- 0893 Apr, [facility] [place] [facility] [address] [id number] [place] [address]- 6303 Apr, [facility] [place] [facility] [address] [id number] [place] [address]- 3285 Apr, [facility] [place] [facility] [address] [id number] [place] [address]- 4205 Apr, [facility] [place] [facility] [address] [id number] [place] [address]- 8446 23 Mar, 2013 [facility] [place] [facility] [address] [id number] [place] [address]- 7890 20 Mar, 2013 [facility] [place] [facility] [address] [id number] [address]- 6842 20 Mar, 2012 [facility] [place] [facility] [address] [id number] [place] [address]- 1867 14 Sep, 2012 [facility] [place] [facility] [address] [id number] [place] [address]- 3251 12 Sep, 2012 [facility] [place] [facility] [address] [id number] [place] [address]- 5912 06 Sep, 2012 [facility] [place] [facility] [address] [id number] [place] [address]- 7706 Mar, [facility] [place] [facility] [address] [id number] [place] [address]- 6991 Jan, [facility] [place] [facility] [address] [id number] [place] [address]- 0753 Jan, [facility] [place] [facility] [address] [id number] [place] [address]- 3508 Jan, [facility] [place] [facility] [address] [id number] [place] [address]- 9314 Jan, [facility] [place] [facility] [address] [id number] [place] [address]- 0808 Jan, [facility] [place] [facility] [address] [id number] [place] [address]- 2135 Jan, [facility] [place] [facility] [address] [id number] [place] [address]- 8405 Jan, [facility] [place] [facility] [address] [id number] [place] [address]- 6776 Dec, [facility] [place] [facility] [address] [id number] [place] [address]- 0831 Dec, [facility] [place] [facility] [address] [id number] [place] [address]- 1264 Dec, [facility] [place] [facility] [address] [id number] [place] [address]- 1818 Dec, [facility] [place] [facility] [address] [id number] [place] [address]- 3669 Dec, [facility] [place] [facility] [address] [id number] [place] [address]- 5991 Dec, [facility] [place] [facility] [address] [id number] [place] [address]- 4325 October, [facility] [place] [facility] [address] [id number] [place] [address]- 5199 October, [facility] [place] [facility] [address] [id number] [place] [address]- 4238 14 Oct, 2012 [facility] [address] [id number] [place] [address]- 1336 10 Oct, 2012 [facility] [address] [id number] [place] [address]- 8942 Oct, [facility] [address] [id number] [place] [address]- 8031 Oct, [facility] [address] [id number] [place] [address]- 6400 Aug, [facility] [address] [id number] [place] [address]- 2626 Aug, [facility] [address] [id number] [place] [address]- 3267 Aug, [facility] [address] [id number] [place] [address]- 0782 Aug, [facility] [address] [id number] [place] [address]- 0392 18 Aug, 2012 [facility] [address] [id number] [place] [address]- 9164 Aug, [facility] [address] [facility] [id number] [place] [address]- 5449 Aug, [facility] [address] [id number] [place] [address]- 8480 Aug, [facility] [address] [id number] [place] [address]- 0052 Aug, [facility] [place] [facility] [address] [id number] [place] [address] 11 Aug, 2012 [facility] [address] [id number] [place] [address]- 0952 10 Aug, 2012 [facility] [address] [id number] [place] [address]- 7418 Aug, [facility] [address] [id number] [address]- 2045 Aug, [facility] [id number] [address]- 6606 Aug, [facility] [id number] [address]- 8309 Jul, [facility] [id number] [address]- 9212 Jul, [facility] [id number] [address]- 1843 Jul, [facility] [id number] [address]- 6732 Jul, [facility] [id number] [address]- 6765 Jun, [facility] [id number] [address]- 6165 Jun, [facility] [id number] [address]- 4939 Jun, [facility] [id number] [address]- 8866 Jun, [facility] [address] [id number] [address]- 2103 May, [facility] [address] [id number] [address]- 0300 May, IMMUNIZATIONS No Known Immunizations SOCIAL HISTORY Never Assessed REASON FOR VISIT Requests return call PLAN OF CARE VITAL SIGNS MEDICATIONS Unknown [...]
--- OUTSIDE RECORDS SUMMARY | 2018-09-02 17:59 | XMS REPORT ---
Author Author JOSE LARRY [facility] Address [address] [place] [address] Care Team Providers Care Horseradish Maker Name Role Phone JOSE LARRY Unavailable PROBLEMS Type Condition ICD9-CM Code [id number] Code Onset Dates Condition Status SNOMED Code Problem Panic disorder with agoraphobia F40.01 Active 16165209 Problem Depressive disorder, not elsewhere classified F32.9 Active 62249113 Problem Chronic posttraumatic stress disorder F43.12 Active 405250650 Problem Insomnia G47.00 Active 695787807 Problem Obesity E66.9 Active 927437607 Problem Other chronic pain G89.29 Active 77971470 Problem Fatty liver K76.0 Active 342257343 Problem Abuse, drug or alcohol F19.10 Active 38919224 Problem Panic disorder without agoraphobia F41.0 Active 54515547 Problem Panic disorder F41.0 Active 676517224 Problem Hypothyroid E03.9 Active 87416012 Problem BMI 50.0-59.9, adult Z68.43 Active 253058481 Problem Restless legs syndrome G25.81 Active 331785352 Problem Encounter for therapeutic drug level monitoring Z51.81 Active 576462681 Problem Neuropathy G62.9 Active 796815111 Problem 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 Active 40829364 Problem Tachycardia R00.0 Active 6329764 Problem Murmur R01.1 Active 382056655 Problem Orthostatic hypertension I10 Active 05542182 Problem Shortness of breath R06.02 Active 889650937 Problem Sleep apnea in adult G47.33 Active 16510843 Problem Tunnel vision, unspecified laterality H53.489 Active 957844849 Problem Undifferentiated schizophrenia F20.3 Active 137777686 ALLERGIES No Information ENCOUNTERS Encounter Location Date Diagnosis [facility] [address] [facility] [id number] [address] 18 Apr, 2018 [facility] [address] [address] 17 Mar, 2018 Undifferentiated schizophrenia F20.3 [facility] [id number] [place] [address], [place] [address]- 3686 17 Mar, 2018 [facility] [id number] [place] [address], [place] [address]- 0082 Mar, Undifferentiated schizophrenia F20.3 [facility] [id number] [place] [address], [place] [address]- 2848 Jan, [facility] [id number] [place] [address], [place] [address]- 7242 Jan, Undifferentiated schizophrenia F20.3 [facility] [id number] [place] [address], [place] [address]- 0384 Jan, [facility] [id number] [place] [address] 91272- 9009 Jan, Undifferentiated schizophrenia F20.3 [facility] [id number] [place] [address] 80937- 0371 Dec, [facility] [id number] [place] [address] 58604- 2888 Dec, [facility] [id number] [place] [address] 45360- 9620 Dec, [facility] [id number] [place] [address] 70950- 8273 Dec, Undifferentiated schizophrenia F20.3 ; Panic disorder with agoraphobia F40.01 ; Chronic posttraumatic stress disorder F43.12 and BMI 50.0- 59.9, adult Z68.43 [facility] [id number] [place] [address] 49796- 9413 Dec, [facility] [address] [place] [address] 24893- 8483 Dec, Undifferentiated schizophrenia F20.3 ; Insomnia G47.00 and Thyroid disorder E07.9 [facility] [id number] [place] [address] 64777- 1488 Dec, Undifferentiated schizophrenia F20.3 [facility] [id number] [place] [address] 61869- 3985 18 Dec, 2017 [facility] [id number] [place] [address] 44110- 8113 15 Dec, 2017 [facility] [id number] [place] [address] 89222- 9666 Dec, BMI 50.0-59.9, adult Z68.43 ; Undifferentiated schizophrenia F20.3 ; Panic disorder without agoraphobia F41.0 and Chronic posttraumatic stress disorder F43.12 [facility] [id number] [place] [address] 91167- 3158 04 Dec, 2017 [facility] [id number] [place] [address] 52462- 1260 October, [facility] [id number] [place] [address] 86843- 4445 October, Pain in right shoulder M25.511 and Other chronic pain G89.29 [facility] [id number] [place] [address] 59815- 9287 October, Hypothyroid E03.9 [facility] [id number] [place] [address] 40915- 5333 Oct, Undifferentiated schizophrenia F20.3 [facility] [id number] [place] [address] 74991- 5585 Oct, [facility] [id number] [place] [address] 07773- 7278 Oct, [facility] [id number] [place] [address] 24748- 9729 Aug, Undifferentiated schizophrenia F20.3 [facility] [id number] [place] [address] 59577- 2321 Aug, [facility] [address] [address] 6199 13 Aug, 2017 Undifferentiated schizophrenia F20.3 ; Panic disorder with agoraphobia F40.01 ; Chronic posttraumatic stress disorder F43.12 and BMI 50.0- 59.9, adult Z68.43 [facility] [id number] [place] [address] 71096- 8891 05 Aug, 2017 [facility] [id number] [place] [address] 92528- 5454 Aug, [facility] [id number] [place] [address] 58557- 7524 Aug, Undifferentiated schizophrenia F20.3 [facility] [id number] [place] [address] 26765- 2684 Aug, Hypothyroid E03.9 [facility] [id number] [place] [address] 83706- 4810 Jul, Undifferentiated schizophrenia F20.3 [facility] [id number] [place] [address] 92055- 6956 Jul, [facility] [id number] [place] [address] 63961- 4872 Jul, Undifferentiated schizophrenia F20.3 ; Chronic posttraumatic stress disorder F43.12 ; Panic disorder with agoraphobia F40.01 and BMI 50.0-59.9, adult Z68.43 [facility] [id number] [place] [address] 01804- 8480 15 Jul, 2017 [facility] [id number] [place] [address] 18009- 2900 Jul, Acute pain of right shoulder M25.511 ; High risk medication use Z79.899 ; Needle stick injury W27.3XXA ; Hypothyroid E03.9 and BMI 50.0-59.9 , adult Z68.43 [facility] [id number] [place] [address] 44801- 5653 Jun, Undifferentiated schizophrenia F20.3 [facility] [address] [place] [address] 03375- 0554 Jun, Undifferentiated schizophrenia F20.3 ; Panic disorder without agoraphobia F41.0 ; Chronic posttraumatic stress disorder F43.12 and BMI 50.0-59.9, adult Z68.43 [facility] [id number] [place] [address] 42183- 7586 May, [facility] [id number] [place] [address] 31900- 6739 May, [facility] [id number] [place] [address] 51383- 9508 May, Undifferentiated schizophrenia F20.3 [facility] [id number] [place] [address] 29988- 8528 May, [facility] [id number] [place] [address] 42184- 5742 May, [facility] [id number] [place] [address] 74011- 4550 May, Hypothyroid E03.9 [facility] [id number] [place] [address] 52523- 2996 May, [facility] [id number] [place] [address] 31738- 5583 May, [facility] [id number] [place] [address] 92435- 4219 07 May, 2017 Chronic posttraumatic stress disorder F43.12 ; Panic disorder with agoraphobia F40.01 ; Undifferentiated schizophrenia F20.3 ; BMI 40.0-44.9, adult Z68.41 and Obesity E66.9 [facility] [address] [place] [address] 04440- 9378 07 May, 2017 Shortness of breath R06.02 [facility] [id number] [place] [address] 38947- 9523 May, [facility] [address] [address]- 4968 Apr, Undifferentiated schizophrenia F20.3 [facility] [id number] [place] [address] 69511- 9857 Apr, [facility] [address] [place] [address] 88454- 5934 Apr, [facility] [id number] [place] [address] 45895- 6737 Mar, Undifferentiated schizophrenia F20.3 ; Panic disorder without agoraphobia F41.0 and Chronic posttraumatic stress disorder F43.12 [facility] [id number] [place] [address] 34427- 2065 Mar, Undifferentiated schizophrenia F20.3 [facility] [id number] [place] [address] 76929- 4542 Mar, [facility] [id number] [place] [address] 40483- 5844 Mar, [facility] [id number] [place] [address] 27798- 1071 Mar, [facility] [id number] [place] [address] 51691- 7470 Jan, Undifferentiated schizophrenia F20.3 [facility] [id number] [place] [address] 21139- 9879 Jan, [facility] [address] [address]- 6767 Jan, [facility] [id number] [place] [address] 71009- 6835 Jan, [facility] [address] [facility] [id number] [id number] Dec, Needle stick injury W27.3XXA [facility] [address] [place] [address] 67590- 0373 Dec, Needle stick injury W27.3XXA [facility] [address] [address]- 3459 Dec, Undifferentiated schizophrenia F20.3 [facility] [id number] [place] [address] 97859- 9865 Dec, [facility] [id number] [place] [address] 09228- 1356 Dec, [facility] [id number] [place] [address] 67855- 9674 Dec, Undifferentiated schizophrenia F20.3 ; Panic disorder with agoraphobia F40.01 and Chronic posttraumatic stress disorder F43.12 [facility] [id number] [place] [address] 24612- 1425 Dec, [facility] [id number] [place] [address] 64493- 1723 October, [facility] [id number] [place] [address] 34519- 9913 October, Undifferentiated schizophrenia F20.3 [facility] [id number] [address]- 2108 October, [facility] [address] [address]- 6179 October, [facility] [address] [place] [address] 91491- 0442 Oct, Undifferentiated schizophrenia F20.3 ; Panic disorder with agoraphobia F40.01 ; Chronic posttraumatic stress disorder F43.12 and Obesity E66.9 [facility] [id number] [address]- 6402 Oct, [facility] [id number] [address]- 4209 Oct, [facility] [address] [address]- 3609 Aug, Undifferentiated schizophrenia F20.3 [facility] [id number] [place] [address] 97624- 1411 17 Aug, 2016 [facility] [id number] [place] [address] 71361- 0958 Aug, Muscle spasm M62.838 [facility] [id number] [place] [address] 02026- 0427 Aug, Undifferentiated schizophrenia F20.3 [facility] [id number] [place] [address] 60682- 2089 Aug, Undifferentiated schizophrenia F20.3 ; Panic disorder with agoraphobia F40.01 ; Chronic posttraumatic stress disorder F43.12 ; High risk medication use Z79.899 and 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 [place] [id number] [place] [address] 21731- 6571 Aug, Undifferentiated schizophrenia F20.3 [facility] [id number] [place] [address] 16880- 9964 Aug, [facility] [id number] [place] [address] 13408- 7765 14 Aug, 2016 Acute non-recurrent maxillary sinusitis J01.00 [facility] [id number] [place] [address] 94485- 1895 10 Aug, 2016 [facility] [id number] [place] [address] 14090- 0524 Aug, [facility] [id number] [place] [address] 02832- 5351 Jul, Undifferentiated schizophrenia F20.3 [facility] [id number] [place] [address] 24155- 8341 Jul, Schizophrenia, undifferentiated F20.3 ; 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 ; Post-traumatic stress disorder F43.10 ; Panic disorder F41.0 and Depressive disorder, not elsewhere classified F32.9 [facility] [id number] [place] [address] 96092- 4352 Jul, [facility] [address] [place] [address] 96477- 1725 Jul, Schizophrenia, undifferentiated F20.3 ; 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 ; Post-traumatic stress disorder F43.10 ; Panic disorder F41.0 and Depressive disorder, not elsewhere classified F32.9 [facility] [id number] [place] [address] 57904- 3023 Jul, [facility] [id number] [place] [address] 53076- 4549 Jul, Undifferentiated schizophrenia F20.3 ; Panic disorder with agoraphobia F40.01 ; 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 ; Obesity E66.9 and Chronic posttraumatic stress disorder F43.12 [facility] [id number] [address]- 2625 Jun, [facility] [id number] [place] [address] 29600- 8822 Jun, [facility] [id number] [place] [address] 81981- 4087 Jun, Dental caries K02.9 [facility] [id number] [place] [address] 04060- 2540 Jun, Undifferentiated schizophrenia F20.3 [facility] [address] [address]- 4600 30 May, 2016 [facility] [id number] [place] [address] 80142- 6257 May, Undifferentiated schizophrenia F20.3 ; Panic disorder with agoraphobia F40.01 and Chronic post-traumatic stress disorder (PTSD) F43.12 [facility] [address] [address]- 4849 May, [facility] [address] [address]- 8363 May, Undifferentiated schizophrenia F20.3 [facility] [id number] [place] [address] 80902- 8251 10 May, 2016 [facility] [address] 34399- 7964 07 May, 2016 Dental examination Z01.20 [facility] [address] 93273- 5617 20 Apr, 2016 Undifferentiated schizophrenia F20.3 ; PTSD (post-traumatic stress disorder) F43.10 and Obesity E66.9 [facility] [id number] [place] [address] 20167- 2395 Apr, [place] [address] 65681- 4134 15 Mar, 2016 [place] [address] 57413- 1742 Mar, [place] [address] 97714- 4944 Jan, Shortness of breath R06.02 and Bipolar disorder with psychotic features F31.9 [place] [id number] [place] [address] 49956- 4690 Jan, [place] [id number] [place] [address] 95739- 6556 Jan, Increased intracranial pressure G93.2 ; Visual disturbance H53.9 and Bipolar II disorder F31.81 [facility] [id number] [place] [address] 37930- 7350 Jan, [facility] [id number] [place] [address] 07843- 6378 Jan, [facility] [address] 50630- 4375 Jan, [facility] [id number] [place] [address] 22122- 3054 Jan, Acquired hypothyroidism E03.9 ; Depression F32.9 and Insomnia G47.00 [place] [id number] [place] [address] 40002- 3199 Jan, Exertional dyspnea R06.09 ; Heart palpitations R00.2 ; Hyperlipidemia, unspecified hyperlipidemia type E78.5 ; Hypothyroidism, unspecified type E03.9 and Hypokalemia E87.6 [place] [address] 50161- 7757 Dec, PTSD (post-traumatic stress disorder) F43.10 ; Depression F32.9 ; Insomnia G47.00 and Bipolar disorder with psychotic features F31.9 [place] [address] 08432- 5705 Dec, Increased intracranial pressure G93.2 [place] [address] 76758- 1470 Dec, [address] 58807- 0844 Dec, Shortness of breath R06.[address] 10317- 5813 Dec, Visual disturbance H53.9 and Headache, unspecified headache type R51 [place] [address] 37193- 6088 Dec, Insomnia G47.00 [place] [address] 68981- 9431 Dec, Murmur R01.1 [place] [address] 65572- 7720 Dec, Murmur R01.1 ; Tunnel vision, unspecified laterality H53.489 ; Orthostatic hypertension I10 ; Shortness of breath R06.02 and Tachycardia R00.0 [place] [address] 58857- 6486 Dec, [address] [place] [address]- 6896 Dec, Hypothyroid E03.9 and Bipolar 1 disorder F31.9 [facility] [id number] [place] [address] 85578- 7429 Dec, Bipolar 1 disorder F31.9 [facility] [id number] [place] [address] 14036- 9188 Dec, [facility] [id number] [place] [address] 85538- 6041 October, Acquired hypothyroidism E03.9 ; Depression F32.9 and Insomnia G47.00 [facility] [id number] [place] [address] 99457- 4075 October, [facility] [id number] [place] [address] 28222- 5014 October, Bipolar 1 disorder F31.9 ; PTSD (post-traumatic stress disorder) F43.10 and 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 [facility] [id number] [place] [address] 61393- 5030 Oct, Bipolar 1 disorder F31.9 and Insomnia G47.00 [facility] [id number] [place] [address] 20762- 7984 Oct, [facility] [id number] [place] [address] 26680- 9867 Oct, [facility] [id number] [place] [address] 31967- 8425 Aug, Hypothyroid E03.9 [facility] [id number] [place] [address] 21261- 9883 Aug, Encounter for therapeutic drug level monitoring Z51.81 and 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 [facility] [id number] [place] [address] 07094- 8124 Aug, Encounter for therapeutic drug level monitoring Z51.81 [facility] [address] [id number] [place] [address] 70628- 7949 Aug, Acquired hypothyroidism E03.9 ; Leg pain M79.606 and Bipolar 1 disorder F31.9 [facility] [address] [place] [id number] [place] [address] 67202- 8633 Aug, [facility] [address] [place] [id number] [place] [address] 22959- 2633 Aug, [facility] [address] [address]- [address]323 Jul, Thyroid disorder E07.9 [place] [address] 48[address]- 2503 Jul, Rash R21 ; Abnormal LFTs R94.5 ; Acquired hypothyroidism E03.9 ; Sleep apnea in adult G47.33 and Fatty liver K76.0 [place] [address] 32994- 5118 Jun, [facility] [address] [id number] [place] [address] 88758- 6108 Jun, [place] [address] 33572- 1741 Jun, Bipolar II disorder F31.81 and Social phobia, generalized F40.11 [place] [address] [place] [id number] [place] [address] 99367- 8483 Mar, Bipolar II disorder 296.89 and Social phobia 300.23 [facility] [address] [place] [id number] [place] [address] 35945- 9816 Dec, [facility] [address] [place] [id number] [place] [address] 69957- 9096 Dec, [facility] [address] [place] [id number] [place] [address] 61720- 4952 Dec, Bipolar II disorder in partial or unspecified remission 296.89 and Social phobia, generalized 300.23 [place] [address] [place] [address] [place] [address] 1968 30 Oct, 2014 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 [facility] [place] [facility] [address] [id number] [place] [address] 14 Oct, 2014 [facility] [place] [facility] [address] [id number] [place] [address]- 4006 Oct, [facility] [place] [facility] [address] [id number] [place] [address]- 9789 Aug, [facility] [place] [facility] [address] [id number] [place] [address]- 7384 Aug, [facility] [place] [facility] [address] [id number] [place] [address]- 7834 Aug, [facility] [place] [facility] [address] [facility] [id number] [place] [address]- 2242 Aug, [facility] [place] [facility] [address] [id number] [place] [address]- 1735 Aug, [facility] [place] [facility] [address] [id number] [place] [address]- 4078 Aug, [facility] [place] [facility] [address] [facility] [id number] [place] [address] Aug, [facility] [place] [facility] [address] [facility] [id number] [place] [address] Aug, [facility] [place] [facility] [address] [facility] [id number] [place] [address] 5071 Jul, [facility] [place] [facility] [address] [id number] [place] [address]326 Jul, [facility] [place] [facility] [address] [id number] [place] [address]- [address]331 Jul, [facility] [place] [facility] [address] [id number] [place] [address] Jul, [facility] [place] [facility] [address] [id number] [place] [address] 4[address] Jul, [facility] [place] [facility] [address] [id number] [place] [address] 9561 Jul, [facility] [place] [facility] [address] [id number] [place] [address]- 6931 Jun, [facility] [place] [facility] [address] [id number] [place] [address]- 2029 Jun, [facility] [place] [facility] [address] [id number] [place] [address]- 2796 Jun, [facility] [place] [facility] [address] [id number] [place] [address]- 4014 Jun, [facility] [place] [facility] [address] [id number] [place] [address]- 6815 Jun, [facility] [place] [facility] [address] [id number] [place] [address]- 2518 Jun, [facility] [place] [facility] [address] [id number] [place] [address]- 8097 Jun, [facility] [place] [facility] [address] [id number] [place] [address]- 3233 Jun, [facility] [place] [facility] [address] [id number] [place] [address]- 5851 Jun, [facility] [place] [facility] [address] [id number] [place] [address]- 7192 Jun, [facility] [place] [facility] [address] [id number] [address] Jun, [facility] [place] [facility] [address] [id number] [place] [address]- 7158 Jun, [facility] [place] [facility] [address] [id number] [place] [address]- 7248 Jun, [facility] [place] [facility] [address] [id number] [place] [address]- 9356 Jun, [facility] [place] [facility] [address] [id number] [place] [address]- 4992 Jun, [facility] [place] [facility] [address] [id number] [place] [address] Jun, [facility] [place] [facility] [address] [id number] [place] [address]- 8765 May, [facility] [place] [facility] [address] [id number] [place] [address]- 7693 May, [facility] [place] [facility] [address] [id number] [place] [address]- 3341 May, [facility] [place] [facility] [address] [id number] [place] [address] May, [facility] [place] [facility] [address] [id number] [place] [address]- 7556 May, [facility] [place] [facility] [address] [id number] [place] [address]- 3281 May, [facility] [place] [facility] [address] [id number] [place] [address]- 8727 Apr, [facility] [place] [facility] [address] [id number] [place] [address]- 4489 Apr, [facility] [place] [facility] [address] [facility] [id number] [place] [address]- 2064 Apr, [facility] [place] [facility] [address] [id number] [place] [address]- 9219 Apr, [facility] [place] [facility] [address] [id number] [place] [address]- 9865 Apr, [facility] [place] [facility] [address] [id number] [place] [address]- 0982 Apr, [facility] [place] [facility] [address] [id number] [place] [address]- 8206 Mar, [facility] [place] [facility] [address] [id number] [place] [address]- 2568 Mar, [facility] [place] [facility] [address] [id number] [place] [address]- 0683 Mar, [facility] [place] [facility] [address] [id number] [place] [address]- 9923 Mar, [facility] [place] [facility] [address] [id number] [place] [address]- 4829 Jan, [facility] [place] [facility] [address] [id number] [place] [address]- 2169 Jan, [facility] [place] [facility] [address] [id number] [place] [address]- 2335 Jan, [facility] [place] [facility] [address] [id number] [place] [address]- 1932 Jan, [facility] [place] [facility] [address] [id number] [place] [address]- 0809 Jan, [facility] [place] [facility] [address] [id number] [place] [address]- 4415 Jan, [facility] [place] [facility] [address] [id number] [place] [address]- 7508 Dec, [facility] [place] [facility] [address] [id number] [place] [address]- 1542 Dec, [facility] [place] [facility] [address] [id number] [place] [address]- 6046 Dec, [facility] [place] [facility] [address] [id number] [place] [address]- 9341 Dec, [facility] [place] [facility] [address] [id number] [place] [address]- 2668 Dec, [facility] [place] [facility] [address] [id number] [place] [address]- 1347 Dec, [facility] [place] [facility] [address] [id number] [place] [address] October, [facility] [place] [facility] [address] [id number] [address] 8187 October, [facility] [place] [facility] [address] [id number] [place] [address]- 5513 October, [facility] [place] [facility] [address] [id number] [place] [address]- 0819 October, [facility] [place] [facility] [address] [id number] [place] [address]- 0229 October, [facility] [place] [facility] [address] [id number] [place] [address]- 4429 October, [facility] [place] [facility] [address] [id number] [place] [address]- 6921 October, [facility] [place] [facility] [address] [id number] [place] [address]- 4663 October, [facility] [place] [facility] [address] [facility] [id number] [place] [address]- 3180 Oct, [facility] [place] [facility] [address] [id number] [place] [address]- 8951 Oct, [facility] [place] [facility] [address] [id number] [place] [address]- 0489 Oct, [facility] [place] [facility] [address] [id number] [place] [address]- 8233 Oct, [facility] [place] [facility] [address] [id number] [place] [address]- 4210 Oct, [facility] [place] [facility] [address] [id number] [place] [address]- 5[address] Aug, [facility] [place] [facility] [address] [id number] [place] [address]- 2822 Aug, [facility] [place] [facility] [address] [id number] [place] [address]- 4335 Aug, [facility] [place] [facility] [address] [id number] [place] [address]- 6428 Aug, [facility] [place] [facility] [address] [id number] [place] [address]- 9846 07 Aug, 2013 [facility] [place] [facility] [address] [id number] [place] [address]- 8220 07 Aug, 2013 [facility] [place] [facility] [address] [id number] [place] [address] Jul, [facility] [place] [facility] [address] [id number] [place] [address]- 3720 Jul, [facility] [place] [facility] [address] [id number] [place] [address]- 2435 Jul, [facility] [place] [facility] [address] [id number] [place] [address]- 1565 Jul, [facility] [place] [facility] [address] [id number] [place] [address]- 9255 Jul, [facility] [place] [facility] [address] [id number] [place] [address]- 6952 Jul, [facility] [place] [facility] [address] [id number] [place] [address]- 5054 Jun, [facility] [place] [facility] [address] [id number] [place] [address]- 0702 Jun, [facility] [place] [facility] [address] [id number] [place] [address]- 6936 Jun, [facility] [place] [facility] [address] [id number] [place] [address]- 5677 Jun, [facility] [place] [facility] [address] [id number] [place] [address]- 0496 Jun, [facility] [place] [facility] [address] [id number] [place] [address]- 8381 Jun, [facility] [place] [facility] [address] [id number] [place] [address]- 8145 May, [facility] [place] [facility] [address] [id number] [place] [address]- 1848 May, [facility] [place] [facility] [address] [id number] [place] [address]- 0110 Apr, [facility] [place] [facility] [address] [id number] [place] [address]- 0519 Apr, [facility] [place] [facility] [address] [id number] [place] [address]- 6944 Apr, [facility] [place] [facility] [address] [id number] [place] [address]- 7339 Apr, [facility] [place] [facility] [address] [id number] [place] [address]- 9897 Apr, [facility] [place] [facility] [address] [id number] [place] [address]- 1321 Apr, [facility] [place] [facility] [address] [id number] [place] [address]- 7891 Apr, [facility] [place] [facility] [address] [id number] [place] [address]- 3247 Apr, [facility] [place] [facility] [address] [id number] [place] [address]- 4661 Apr, [facility] [place] [facility] [address] [id number] [place] [address]- 8353 Apr, [facility] [place] [facility] [address] [id number] [place] [address]- 3415 Apr, [facility] [place] [facility] [address] [id number] [place] [address]- 5475 23 Mar, 2013 [facility] [place] [facility] [address] [id number] [place] [address]- 4399 20 Mar, 2013 [facility] [place] [facility] [address] [id number] [place] [address]- 2767 20 Mar, 2013 [facility] [place] [facility] [address] [id number] [place] [address]- 4568 14 Mar, 2012 [facility] [place] [facility] [address] [id number] [place] [address]- 3274 12 Mar, 2013 [facility] [address] [id number] [place] [address]- 7063 Mar, [facility] [address] [id number] [place] [address]- 6032 Mar, [facility] [address] [id number] [place] [address]- 3370 Jan, [facility] [address] [id number] [place] [address]- 7966 Jan, [facility] [address] [id number] [place] [address]- 7275 Jan, [facility] [address] [id number] [place] [address]- 5282 Jan, [facility] [address] [id number] [place] [address]- 4474 Jan, [facility] [address] [id number] [place] [address]- 8312 Jan, [facility] [address] [id number] [place] [address]- 1318 Jan, [facility] [address] [id number] [place] [address]- 9572 Dec, [facility] [place] [facility] [address] [id number] [place] [address]- 9363 Dec, [facility] [address] [id number] [place] [address]- 0158 Dec, [facility] [place] [facility] [address] [id number] [place] [address]- 9911 Dec, [facility] [place] [facility] [address] [id number] [place] [address]- 8962 Dec, [facility] [place] [facility] [address] [id number] [place] [address]- 8828 Dec, [facility] [address] [id number] [place] [address]- 9959 17 Oct, 2012 [facility] [address] [id number] [place] [address]- 6750 October, [facility] [address] [id number] [place] [address]- 3444 October, [facility] [address] [id number] [place] [address]- 7978 October, [facility] [address] [id number] [place] [address]- 8302 Oct, [facility] [address] [id number] [place] [address]- 8082 Oct, [facility] [address] [id number] [place] [address]- 1498 Aug, [facility] [address] [id number] [place] [address]- 8434 Aug, [facility] [address] [id number] [place] [address]- 2075 Aug, [facility] [address] [id number] [place] [address]- 5531 Aug, [facility] [address] [id number] [place] [address]- 8866 Aug, [facility] [address] [id number] [place] [address]- 1327 Aug, [facility] [address] [id number] [place] [address]- 0580 Aug, [facility] [place] [facility] [address] [id number] [place] [address]- 4926 Aug, [facility] [place] [facility] [address] [id number] [place] [address]- 6416 Aug, [facility] [id number] [address]- 1282 11 Aug, 2012 [facility] [address]00565[place] [address]- 2846 10 Aug, 2012 [facility] [address]00565[place] [address] 2546 08 Aug, 2012 [facility] [address]00565100[place] [address]- 1886 Aug, [facility] [address]00565[place] [address]- 2541 Aug, [facility] [id number] [place] [address]- 7203 Jul, [facility] [address]00565[place] [address]136 Jul, [facility] [id number] [place] [address]- 9568 Jul, [facility] [address]00565[place] [address]- 9266 Jul, [facility] [address]65[address] 0356 Jun, [facility] [address]65[address] 7958 Jun, [facility] [address]00565[address] [address]- 2657 Jun, [facility] [address] [id number] [address] 2542 Jun, [facility] [address]00565[address] [address]- 5406 May, [facility] [address] [id number] [address]- 8426 May, IMMUNIZATIONS Vaccine Route Administration Date Status ARISTADA 882 MG/3.2 ML (PT'S OWN) IM Intramuscular Feb 15, 2018 Administered SOCIAL HISTORY Never Assessed REASON FOR VISIT ARISTADA injection. Razia RN PLAN OF CARE Activity Details Follow Up 4 Weeks Reason: VITAL SIGNS MEDICATIONS Unknown Medications RESULTS No Results PROCEDURES Procedure Date Ordered Result Body Site ARISTADA 882 MG/3.2 ML (PT'S OWN) Feb 15, 2018 THER/PROPH/DIAG INJ, SC/IM Feb 15, 2018 INSTRUCTIONS MEDICATIONS ADMINISTERED No Known Medications [...]
--- OUTSIDE RECORDS SUMMARY | 2018-09-02 18:00 | XMS REPORT ---
Author Author AMARI HOWARD [facility] Address [address] [place] [address] Care Team Providers Care Medical Lab Technologist Name Role Phone AMARI HOWARD Unavailable PROBLEMS Type Condition ICD9-CM Code MDQ93-BS Code Onset Dates Condition Status SNOMED Code Problem Panic disorder with agoraphobia F40.01 Active 61150659 Problem Depressive disorder, not elsewhere classified F32.9 Active 80603149 Problem Chronic posttraumatic stress disorder F43.12 Active 352262680 Problem Insomnia G47.00 Active 522883377 Problem Obesity E66.9 Active 832988036 Problem Other chronic pain G89.29 Active 50121367 Problem Fatty liver K76.0 Active 000845071 Problem Abuse, drug or alcohol F19.10 Active 96237496 Problem Panic disorder without agoraphobia F41.0 Active 87435761 Problem Panic disorder F41.0 Active 433908855 Problem Hypothyroid E03.9 Active 33965213 Problem BMI 50.0-59.9, adult Z68.43 Active 095169435 Problem Restless legs syndrome G25.81 Active 304765409 Problem Encounter for therapeutic drug level monitoring Z51.81 Active 017785123 Problem Neuropathy G62.9 Active 438266056 Problem 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 Active 39921333 Problem Tachycardia R00.0 Active 1949046 Problem Murmur R01.1 Active 336760042 Problem Orthostatic hypertension I10 Active 38726917 Problem Shortness of breath R06.02 Active 563434760 Problem Sleep apnea in adult G47.33 Active 72101198 Problem Tunnel vision, unspecified laterality H53.489 Active 955142743 Problem Undifferentiated schizophrenia F20.3 Active 277326061 ALLERGIES No Information ENCOUNTERS Encounter Location Date Diagnosis [facility] [address] [facility] [id number] [address] 18 Apr, 2018 [facility] [address] [address] Jan, [facility] [address] [address] 0016 Jan, Undifferentiated schizophrenia F20.3 [facility] [address] [address] 3[address] Jan, [facility] [id number] [place] [address] 14337- 7602 Jan, Undifferentiated schizophrenia F20.3 [facility] [id number] [place] [address] 25278- 1404 Dec, [facility] [id number] [place] [address] 03607- 3034 Dec, [facility] [id number] [place] [address] 48409- 7134 Dec, [facility] [id number] [place] [address] 21201- 0610 Dec, Undifferentiated schizophrenia F20.3 ; Panic disorder with agoraphobia F40.01 ; Chronic posttraumatic stress disorder F43.12 and BMI 50.0- 59.9, adult Z68.43 [facility] [address] [address] 56[address] Dec, [facility] [address] [address] 5525 Dec, Undifferentiated schizophrenia F20.3 ; Insomnia G47.00 and Thyroid disorder E07.9 [facility] [address] [address]- 6986 Dec, Undifferentiated schizophrenia F20.3 [facility] [address] [address]- 9448 Dec, [facility] [address] [address]- 7441 Dec, [facility] [id number] [place] [address] 17805- 3585 Dec, BMI 50.0-59.9, adult Z68.43 ; Undifferentiated schizophrenia F20.3 ; Panic disorder without agoraphobia F41.0 and Chronic posttraumatic stress disorder F43.12 [facility] [id number] [place] [address] 57014- 3580 Dec, [facility] [id number] [place] [address] 76263- 7282 October, [facility] [id number] [place] [address] 38566- 7748 October, Pain in right shoulder M25.511 and Other chronic pain G89.29 [facility] [id number] [place] [address] 45144- 0884 October, Hypothyroid E03.9 [facility] [id number] [place] [address] 09588- 0220 Oct, Undifferentiated schizophrenia F20.3 [facility] [id number] [place] [address] 76263- 0504 Oct, [facility] [id number] [place] [address] 99445- 0516 Oct, [facility] [id number] [place] [address] 79878- 5072 Aug, Undifferentiated schizophrenia F20.3 [facility] [id number] [place] [address] 74607- 3932 Aug, [facility] [id number] [place] [address] 06341- 2945 Aug, Undifferentiated schizophrenia F20.3 ; Panic disorder with agoraphobia F40.01 ; Chronic posttraumatic stress disorder F43.12 and BMI 50.0- 59.9, adult Z68.43 [facility] [id number] [place] [address] 22450- 1545 05 Aug, 2017 [facility] [address] [place] [address] 1988 Aug, [facility] [id number] [place] [address] 58328- 2230 Aug, Undifferentiated schizophrenia F20.3 [facility] [address] [address]- 5128 Aug, Hypothyroid E03.9 [facility] [id number] [place] [address] 67995- 1121 Jul, Undifferentiated schizophrenia F20.3 [facility] [id number] [place] [address] 06746- 2745 Jul, [facility] [id number] [place] [address] 72266- 2364 Jul, Undifferentiated schizophrenia F20.3 ; Chronic posttraumatic stress disorder F43.12 ; Panic disorder with agoraphobia F40.01 and BMI 50.0-59.9, adult Z68.43 [facility] [id number] [place] [address] 31218- 8894 Jul, [facility] [id number] [place] [address] 41035- 4805 Jul, Acute pain of right shoulder M25.511 ; High risk medication use Z79.899 ; Needle stick injury W27.3XXA ; Hypothyroid E03.9 and BMI 50.0-59.9 , adult Z68.43 [facility] [address] [address]- 6662 Jun, Undifferentiated schizophrenia F20.3 [facility] [address] [address]- 8195 Jun, Undifferentiated schizophrenia F20.3 ; Panic disorder without agoraphobia F41.0 ; Chronic posttraumatic stress disorder F43.12 and BMI 50.0-59.9, adult Z68.43 [facility] [id number] [place] [address] 27733- 2592 May, [facility] [id number] [place] [address] 06900- 3568 May, [facility] [id number] [place] [address] 39319- 8712 May, Undifferentiated schizophrenia F20.3 [facility] [id number] [place] [address] 01441- 2213 May, [facility] [id number] [place] [address] 29682- 7078 May, [facility] [id number] [place] [address] 99594- 6236 May, Hypothyroid E03.9 [facility] [id number] [place] [address] 49830- 0822 May, [facility] [id number] [place] [address] 08611- 0072 May, [facility] [id number] [place] [address] 62732- 9443 07 May, 2017 Chronic posttraumatic stress disorder F43.12 ; Panic disorder with agoraphobia F40.01 ; Undifferentiated schizophrenia F20.3 ; BMI 40.0-44.9, adult Z68.41 and Obesity E66.9 [facility] [id number] [place] [address] 94241- 7436 07 May, 2017 Shortness of breath R06.02 [facility] [id number] [place] [address] 80323- 3476 May, [facility] [id number] [place] [address] 78302- 8366 Apr, Undifferentiated schizophrenia F20.3 [facility] [id number] [place] [address] 92813- 8379 Apr, [facility] [id number] [place] [address] 17781- 7317 Apr, [facility] [id number] [address]- 2650 Mar, Undifferentiated schizophrenia F20.3 ; Panic disorder without agoraphobia F41.0 and Chronic posttraumatic stress disorder F43.12 [facility] [address] [address]- 3884 Mar, Undifferentiated schizophrenia F20.3 [facility] [id number] [place] [address] 63524- 7233 Mar, [facility] [id number] [place] [address] 29795- 6092 Mar, [facility] [id number] [place] [address] 28704- 8259 Mar, [facility] [id number] [place] [address] 82854- 9754 Jan, Undifferentiated schizophrenia F20.3 [facility] [id number] [place] [address] 15268- 8079 Jan, [facility] [id number] [place] [address] 51341- 4566 Jan, [facility] [id number] [place] [address] 38796- 2630 Jan, [address] [id number] [id number] Dec, Needle stick injury W27.3XXA [facility] [id number] [place] [address] 12137- 2287 Dec, Needle stick injury W27.3XXA [facility] [id number] [place] [address] 63791- 4185 Dec, Undifferentiated schizophrenia F20.3 [facility] [id number] [place] [address] 22667- 8047 Dec, [facility] [id number] [place] [address] 11659- 9999 Dec, [facility] [address] [address]- 4208 Dec, Undifferentiated schizophrenia F20.3 ; Panic disorder with agoraphobia F40.01 and Chronic posttraumatic stress disorder F43.12 [facility] [address] [address]- 9874 Dec, [facility] [id number] [place] [address] 04421- 4759 October, [facility] [id number] [place] [address] 40719- 2626 October, Undifferentiated schizophrenia F20.3 [facility] [id number] [place] [address] 50730- 6176 October, [facility] [address] [address]- 6142 October, [facility] [id number] [place] [address] 74181- 7982 Oct, Undifferentiated schizophrenia F20.3 ; Panic disorder with agoraphobia F40.01 ; Chronic posttraumatic stress disorder F43.12 and Obesity E66.9 [facility] [id number] [address]- 3600 Oct, [facility] [address] [address]- 0002 Oct, [facility] [id number] [place] [address] 48403- 7981 Aug, Undifferentiated schizophrenia F20.3 [facility] [address] [address]- 9003 Aug, [facility] [id number] [place] [address] 05162- 9201 Aug, Muscle spasm M62.838 [facility] [id number] [address]- 1663 Aug, Undifferentiated schizophrenia F20.3 [facility] [address] [address]- 9806 Aug, Undifferentiated schizophrenia F20.3 ; Panic disorder with agoraphobia F40.01 ; Chronic posttraumatic stress disorder F43.12 ; High risk medication use Z79.899 and 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 [facility] [address] [address]- 9506 Aug, Undifferentiated schizophrenia F20.3 [facility] [id number] [place] [address] 42013- 6198 Aug, [facility] [id number] [place] [address] 81615- 7456 Aug, Acute non-recurrent maxillary sinusitis J01.00 [facility] [id number] [place] [address] 42319- 0524 Aug, [facility] [id number] [place] [address] 02417- 1009 Aug, [facility] [id number] [place] [address] 49386- 6118 Jul, Undifferentiated schizophrenia F20.3 [facility] [id number] [place] [address] 41328- 1485 Jul, Schizophrenia, undifferentiated F20.3 ; 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 ; Post-traumatic stress disorder F43.10 ; Panic disorder F41.0 and Depressive disorder, not elsewhere classified F32.9 [facility] [address] [address]- 9740 Jul, [facility] [id number] [place] [address] 77299- 2194 Jul, Schizophrenia, undifferentiated F20.3 ; 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 ; Post-traumatic stress disorder F43.10 ; Panic disorder F41.0 and Depressive disorder, not elsewhere classified F32.9 [facility] [id number] [place] [address] 62349- 8876 Jul, [facility] [id number] [place] [address] 91267- 0789 Jul, Undifferentiated schizophrenia F20.3 ; Panic disorder with agoraphobia F40.01 ; 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 ; Obesity E66.9 and Chronic posttraumatic stress disorder F43.12 [facility] [id number] [place] [address] 06828- 4453 Jun, [facility] [id number] [place] [address] 69032- 7791 Jun, [facility] [id number] [place] [address] 28826- 6411 Jun, Dental caries K02.9 [facility] [id number] [place] [address] 25065- 1967 Jun, Undifferentiated schizophrenia F20.3 [facility] [id number] [place] [address] 78579- 0649 May, [facility] [id number] [place] [address] 89761- 0350 May, Undifferentiated schizophrenia F20.3 ; Panic disorder with agoraphobia F40.01 and Chronic post-traumatic stress disorder (PTSD) F43.12 [facility] [id number] [place] [address] 93817- 0432 May, [facility] [id number] [place] [address] 39204- 7680 May, Undifferentiated schizophrenia F20.3 [facility] [id number] [place] [address] 06453- 0338 May, [facility] [id number] [place] [address] 96954- 7176 07 May, 2016 Dental examination Z01.20 [facility] [id number] [place] [address] 31867- 2204 Apr, Undifferentiated schizophrenia F20.3 ; PTSD (post-traumatic stress disorder) F43.10 and Obesity E66.9 [facility] [id number] [place] [address] 37361- 4613 Apr, [place] [address] 990398- 7575 Mar, [place] [facility] [address] 97809- 4162 Mar, [place] [facility] [address] 37803- 7751 Jan, Shortness of breath R06.02 and Bipolar disorder with psychotic features F31.9 [place] [address] 84270- 6139 Jan, [facility] [address] 61710- 5549 Jan, Increased intracranial pressure G93.2 ; Visual disturbance H53.9 and Bipolar II disorder F31.81 [facility] [id number] [place] [address] 47378- 9616 Jan, [facility] [facility] [address] 52480- 4950 Jan, [facility] [id number] [place] [address] 36035- 0342 Jan, [facility] [id number] [place] [address] 78485- 4278 Jan, Acquired hypothyroidism E03.9 ; Depression F32.9 and Insomnia G47.00 [facility] [id number] [place] [address] 96800- 1830 Jan, Exertional dyspnea R06.09 ; Heart palpitations R00.2 ; Hyperlipidemia, unspecified hyperlipidemia type E78.5 ; Hypothyroidism, unspecified type E03.9 and Hypokalemia E87.6 [facility] [address] 22796- 3753 Dec, PTSD (post-traumatic stress disorder) F43.10 ; Depression F32.9 ; Insomnia G47.00 and Bipolar disorder with psychotic features F31.9 [facility] [id number] [place] [address] 50436- 8670 Dec, Increased intracranial pressure G93.2 [facility] [id number] [place] [address] 33277- 9390 Dec, [facility] [address] 43109- 0389 Dec, Shortness of breath R06.[address] 91985- 9378 Dec, Visual disturbance H53.9 and Headache, unspecified headache type R51 [id number] [place] [address] 46986- 0170 Dec, Insomnia G47.00 [facility] [id number] [place] [address] 89632- 1516 Dec, Murmur R01.[address] 30713- 9760 Dec, Murmur R01.1 ; Tunnel vision, unspecified laterality H53.489 ; Orthostatic hypertension I10 ; Shortness of breath R06.02 and Tachycardia R00.0 [facility] [id number] [place] [address] 75632- 5857 Dec, [facility] [id number] [place] [address] 69815- 6633 Dec, Hypothyroid E03.9 and Bipolar 1 disorder F31.9 [id number] [place] [address] 74810- 8180 15 Dec, 2015 Bipolar 1 disorder F31.9 [facility] [id number] [place] [address] 08782- 9049 08 Dec, 2015 [id number] [place] [address] 84052- 0253 October, Acquired hypothyroidism E03.9 ; Depression F32.9 and Insomnia G47.00 [facility] [id number] [place] [address] 38814- 4912 October, [facility] [id number] [place] [address] 87682- 5128 October, Bipolar 1 disorder F31.9 ; PTSD (post-traumatic stress disorder) F43.10 and 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 [facility] [id number] [place] [address] 19842- 9790 Oct, Bipolar 1 disorder F31.9 and Insomnia G47.00 [facility] [id number] [place] [address] 20471- 4029 Oct, [facility] [id number] [place] [address] 39448- 0508 Oct, [facility] [id number] [place] [address] 21767- 1568 Aug, Hypothyroid E03.9 [facility] [id number] [place] [address] 85137- 3797 Aug, Encounter for therapeutic drug level monitoring Z51.81 and Other fpc (current) drug therapy Z79.899 [facility] [id number] [place] [address] 02639- 9499 Aug, Encounter for therapeutic drug level monitoring Z51.81 [facility] [id number] [place] [address] 65886- 5723 Aug, Acquired hypothyroidism E03.9 ; Leg pain M79.606 and Bipolar 1 disorder F31.9 [facility] [id number] [place] [address] 21177- 8078 Aug, [facility] [id number] [place] [address] 69420- 7201 Aug, [place] [id number] [place] [address] 71072- 6196 Jul, Thyroid disorder E07.9 [facility] [id number] [place] [address] 33811- 1067 Jul, Rash R21 ; Abnormal LFTs R94.5 ; Acquired hypothyroidism E03.9 ; Sleep apnea in adult G47.33 and Fatty liver K76.0 [facility] [address] 33312- 9557 Jun, [facility] [id number] [place] [address] 75548- 5904 Jun, [facility] [address] 49697- 3699 Jun, Bipolar II disorder F31.81 and Social phobia, generalized F40.11 [facility] [address] [place] [address] 31542- 5056 Mar, Bipolar II disorder 296.89 and Social phobia 300.23 [facility] [id number] [place] [address] 95231- 8198 Dec, [facility] [address] [place] [id number] [place] [address] 04962- 3259 Dec, [facility] [address] [place] [id number] [place] [address] 33033- 6311 Dec, Bipolar II disorder in partial or unspecified remission 296.89 and Social phobia, generalized 300.23 [facility] [id number] [place] [address] 21465- 2851 Oct, 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 [facility] [address] 83538- 0715 14 Oct, 2014 [facility] [id number] [place] [address] 67330- 5345 13 Oct, 2014 [facility] [address] 71058- 2546 Aug, [facility] [place] [facility] [address] [id number] [place] [address]- 3637 Aug, [facility] [place] [facility] [address] [id number] [place] [address]- 5075 Aug, [facility] [place] [facility] [address] [id number] [place] [address]- 3293 Aug, [facility] [place] [facility] [address] [id number] [place] [address]- 0664 Aug, [facility] [place] [facility] [address] [id number] [place] [address]- 5366 Aug, [facility] [place] [facility] [address] [id number] [place] [address]- 0334 Aug, [facility] [place] [facility] [address] [id number] [place] [address]- 4525 Aug, [facility] [place] [facility] [address] [id number] [place] [address]- 7729 Jul, [facility] [place] [facility] [address] [id number] [place] [address]- 0320 Jul, [facility] [place] [facility] [address] [id number] [place] [address]- 2637 Jul, [facility] [place] [facility] [address] [id number] [place] [address] Jul, [facility] [place] [facility] [address] [id number] [place] [address] Jul, [facility] [place] [facility] [address] [id number] [place] [address] Jul, [facility] [place] [facility] [address] [id number] [place] [address] Jun, [facility] [place] [facility] [address] [id number] [place] [address] Jun, [facility] [place] [facility] [address] [id number] [place] [address] Jun, [facility] [place] [facility] [address] [id number] [place] [address] Jun, [facility] [place] [facility] [address] [id number] [place] [address] Jun, [facility] [place] [facility] [address] [id number] [place] [address] Jun, [facility] [place] [facility] [address] [id number] [place] [address] Jun, [facility] [place] [facility] [address] [id number] [place] [address] Jun, [facility] [place] [facility] [address] [id number] [place] [address] Jun, [facility] [place] [facility] [address] [id number] [place] [address] Jun, [facility] [place] [facility] [address] [id number] [place] [address] Jun, [facility] [place] [facility] [address] [id number] [place] [address] Jun, [facility] [place] [facility] [address] [id number] [place] [address] Jun, [facility] [place] [facility] [address] [id number] [place] [address] Jun, [facility] [place] [facility] [address] [address] [id number] [place] [address] Jun, [facility] [place] [facility] [address] [id number] [place] [address] Jun, [facility] [place] [facility] [address] [id number] [place] [address] May, [facility] [place] [facility] [address] [id number] [place] [address] May, [facility] [place] [facility] [address] [id number] [place] [address] May, [facility] [place] [facility] [address] [id number] [place] [address] May, [facility] [place] [facility] [address] [id number] [place] [address] May, [facility] [place] [facility] [address] [id number] [place] [address] May, [facility] [place] [facility] [address] [id number] [place] [address] Apr, [facility] [place] [facility] [address] [id number] [place] [address] Apr, [facility] [place] [facility] [address] [id number] [place] [address] Apr, [facility] [place] [facility] [address] [id number] [place] [address] Apr, [facility] [place] [facility] [address] [id number] [place] [address] Apr, [facility] [place] [facility] [address] [id number] [place] [address] 09[address] Apr, [facility] [place] [facility] [address] [id number] [place] [address] Mar, [facility] [place] [facility] [address] [id number] [place] [address] Mar, [facility] [place] [facility] [address] [id number] [place] [address] Mar, [facility] [place] [facility] [address] [id number] [place] [address] Mar, [facility] [place] [facility] [address] [id number] [place] [address] 7034 Jan, [facility] [place] [facility] [address] [id number] [place] [address] 2986 Jan, [facility] [place] [facility] [address] [id number] [place] [address] Jan, [facility] [place] [facility] [address] [id number] [place] [address]- 0[address] Jan, [facility] [place] [facility] [address] [id number] [place] [address]- 0777 Jan, [facility] [place] [facility] [address] [id number] [place] [address]- [address] Jan, [facility] [place] [facility] [address] [id number] [place] [address]- [address]878 Dec, [facility] [place] [facility] [address] [id number] [place] [address]- [address]196 Dec, [facility] [place] [facility] [address] [id number] [place] [address]- [address]188 Dec, [facility] [place] [facility] [address] [id number] [place] [address]- 1576 Dec, [facility] [place] [facility] [address] [id number] [place] [address]- 7931 Dec, [facility] [place] [facility] [address] [id number] [place] [address]- 68[address] Dec, [facility] [place] [facility] [address] [id number] [place] [address] October, [facility] [place] [facility] [address] [id number] [place] [address] October, [facility] [place] [facility] [address] [id number] [place] [address] 1891 October, [facility] [place] [facility] [address] [id number] [place] [address] 289[address] October, [facility] [place] [facility] [address] [id number] [place] [address]- 7632 October, [facility] [place] [facility] [address] [id number] [place] [address]- 8214 October, [facility] [place] [facility] [address] [id number] [place] [address]- 9430 October, [facility] [place] [facility] [address] [id number] [place] [address] October, [facility] [place] [facility] [address] [id number] [place] [address]483 Oct, [facility] [place] [facility] [address] [id number] [place] [address] 1615 Oct, [facility] [place] [facility] [address] [id number] [place] [address] 8652 Oct, [facility] [place] [facility] [address] [id number] [place] [address] 1102 Oct, [facility] [place] [facility] [address] [id number] [place] [address]- 1252 Oct, [facility] [place] [facility] [address] [id number] [place] [address] 5601 Aug, [facility] [place] [facility] [address] [id number] [place] [address]- 5318 Aug, [facility] [place] [facility] [address] [id number] [place] [address] 1741 Aug, [facility] [place] [facility] [address] [id number] [place] [address]- 0896 Aug, [facility] [place] [facility] [address] [id number] [place] [address]- 4135 Aug, [facility] [place] [facility] [address] [id number] [place] [address]- 7590 Aug, [facility] [place] [facility] [address] [id number] [place] [address] Jul, [facility] [place] [facility] [address] [id number] [place] [address]- [address] Jul, [facility] [address] [id number] [place] [address] Jul, [facility] [place] [facility] [address] [id number] [place] [address] Jul, [facility] [place] [facility] [address] [id number] [place] [address]- 8852 Jul, [facility] [place] [facility] [address] [id number] [place] [address] 9382 Jul, [facility] [place] [facility] [address] [id number] [place] [address]- 2512 Jun, [facility] [place] [facility] [address] [id number] [place] [address]- 1589 Jun, [facility] [place] [facility] [address] [id number] [place] [address]- 7578 Jun, [facility] [place] [facility] [address] [id number] [place] [address]- [address] Jun, [facility] [place] [facility] [address] [id number] [place] [address]- 6986 Jun, [facility] [place] [facility] [address] [id number] [place] [address]- 8551 Jun, [facility] [place] [facility] [address] [id number] [place] [address]- 1720 May, [facility] [place] [facility] [address] [id number] [place] [address]- 7291 May, [facility] [place] [facility] [address] [id number] [place] [address]- [address]42 Apr, [facility] [place] [facility] [address] [id number] [place] [address] 1805 Apr, [facility] [place] [facility] [address] [id number] [place] [address] Apr, [facility] [place] [facility] [address] [id number] [place] [address]- 5512 Apr, 2012 [facility] [place] [facility] [address] [id number] [place] [address] 1915 Apr, [facility] [place] [facility] [address] [id number] [place] [address]- 4836 Apr, [facility] [place] [facility] [address] [id number] [place] [address]- 0808 Apr, 2012 [facility] [place] [facility] [address] [id number] [place] [address]- 1742 Apr, [facility] [place] [facility] [address] [id number] [place] [address]- 8675 Apr, [facility] [place] [facility] [address] [id number] [place] [address]- 7458 Apr, [facility] [place] [facility] [address] [id number] [place] [address]- 2850 Apr, [facility] [place] [facility] [address] [id number] [place] [address]- 0172 23 Mar, 2012 [facility] [place] [facility] [address] [id number] [place] [address]- 8768 20 Mar, 2012 [facility] [place] [facility] [address] [id number] [place] [address]- 6000 20 Mar, 2012 [facility] [place] [facility] [address] [id number] [place] [address]- 7025 14 Mar, 2012 [facility] [place] [facility] [address] [id number] [place] [address]- 2543 12 Mar, 2012 [facility] [place] [facility] [address] [id number] [place] [address]- 9391 06 Mar, 2012 [facility] [place] [facility] [address] [id number] [place] [address]- 2546 06 Mar, 2012 [facility] [place] [facility] [address] [id number] [place] [address]- 0822 Jan, [facility] [address] [id number] [place] [address]- 3793 Jan, [facility] [place] [facility] [address] [id number] [place] [address]- 1202 Jan, [facility] [place] [facility] [address] [id number] [place] [address]- 6493 Jan, [facility] [place] [facility] [address] [id number] [place] [address]- 9346 Jan, [facility] [place] [facility] [address] [id number] [place] [address]- 3088 Jan, [facility] [place] [facility] [address] [id number] [place] [address] 1952 Jan, [facility] [place] [facility] [address] [id number] [place] [address]- 7117 Dec, [facility] [place] [facility] [address] [id number] [place] [address]- 9986 Dec, [facility] [place] [facility] [address] [id number] [place] [address]- 4579 Dec, [facility] [place] [facility] [address] [id number] [place] [address]- 1725 Dec, [facility] [place] [facility] [address] [id number] [place] [address]- 2776 Dec, [facility] [place] [facility] [address] [id number] [place] [address]- 7664 Dec, [facility] [place] [facility] [address] [id number] [place] [address]- 1166 October, [facility] [place] [facility] [address] [id number] [place] [address]- 8538 October, [facility] [place] [facility] [address] [id number] [place] [address]- 2379 October, [facility] [place] [facility] [address] [id number] [place] [address]- 6140 10 Oct, 2012 [facility] [address] [id number] [place] [address]- 8387 Oct, [facility] [place] [facility] [address] [facility] [id number] [place] [address] Oct, [facility] [address] [facility] [id number] [place] [address]- 1804 27 Aug, 2012 [facility] [place] [facility] [address] [facility] [id number] [place] [address]- 6750 26 Aug, 2012 [facility] [address] [id number] [place] [address]- 1275 Aug, [facility] [place] [facility] [address] [facility] [id number] [place] [address]- 4643 Aug, [facility] [address] [facility] [id number] [place] [address]- 6556 Aug, [facility] [address] [facility] [id number] [place] [address]- 0016 Aug, [facility] [place] [facility] [address] [facility] [id number] [place] [address]- 9893 Aug, [facility] [place] [facility] [address] [facility] [id number] [place] [address]- 8003 Aug, [facility] [place] [facility] [address] [id number] [address]- 6462 Aug, [facility] [place] [facility] [address] [facility] [id number] [place] [address]- 5747 11 Aug, 2012 [facility] [place] [facility] [address] [facility] [id number] [place] [address]- 7698 10 Aug, 2012 [facility] [place] [facility] [address] [facility] [id number] [place] [address]- 1696 08 Aug, 2012 [facility] [place] [facility] [id number] [address] Aug, [facility] [address] [facility] [id number] [place] [address]- 9739 Aug, [facility] [address] [facility] [id number] [place] [address]- 0914 Jul, [facility] [address] [facility] [id number] [place] [address]- 0346 Jul, [facility] [address] [facility] [id number] [place] [address]- 0578 Jul, [facility] [address] [facility] [id number] [place] [address]- 4182 Jul, [facility] [address] [facility] [id number] [place] [address]- 7347 Jun, [facility] [id number] [place] [address]- 3575 Jun, [facility] [id number] [place] [address]- 7650 Jun, [facility] [address] [id number] [place] [address]- 8308 Jun, [facility] [address] [id number] [place] [address]- 2340 May, [facility] [address] [id number] [place] [address]- 5013 May, IMMUNIZATIONS No Known Immunizations SOCIAL HISTORY Never Assessed REASON FOR VISIT medication PLAN OF CARE VITAL SIGNS MEDICATIONS Unknown [...]
--- OUTSIDE RECORDS SUMMARY | 2018-09-02 18:01 | XMS REPORT ---
Author Author AMARI HOWARD [facility] Address [address] [place] [address] Care Team Providers Care Consulting Database Administrator Name Role Phone AMARI HOWARD Unavailable PROBLEMS Type Condition ICD9-CM Code [id number] Code Onset Dates Condition Status SNOMED Code Problem Panic disorder with agoraphobia F40.01 Active 90383607 Problem Depressive disorder, not elsewhere classified F32.9 Active 27359485 Problem Chronic posttraumatic stress disorder F43.12 Active 064864777 Problem Insomnia G47.00 Active 767602722 Problem Obesity E66.9 Active 310858029 Problem Other chronic pain G89.29 Active 22954544 Problem Fatty liver K76.0 Active 242814566 Problem Abuse, drug or alcohol F19.10 Active 15791859 Problem Panic disorder without agoraphobia F41.0 Active 08158213 Problem Panic disorder F41.0 Active 243935157 Problem Hypothyroid E03.9 Active 87443803 Problem BMI 50.0-59.9, adult Z68.43 Active 002649964 Problem Restless legs syndrome G25.81 Active 939606402 Problem Encounter for therapeutic drug level monitoring Z51.81 Active 818689708 Problem Neuropathy G62.9 Active 376228148 Problem 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 Active 66384034 Problem Tachycardia R00.0 Active 0827589 Problem Murmur R01.1 Active 840655390 Problem Orthostatic hypertension I10 Active 74798847 Problem Shortness of breath R06.02 Active 590909640 Problem Sleep apnea in adult G47.33 Active 19603030 Problem Tunnel vision, unspecified laterality H53.489 Active 305850233 Problem Undifferentiated schizophrenia F20.3 Active 776736570 ALLERGIES No Information ENCOUNTERS Encounter Location Date Diagnosis [facility] [address] [id number] [address] 18 Apr, 2018 [facility] [id number] [address] Jan, [facility] [id number] [address] 4060 Jan, Undifferentiated schizophrenia F20.3 [facility] [address] [address] 7850 Jan, [facility] [id number] [place] [address] 77502- 5271 Jan, Undifferentiated schizophrenia F20.3 [facility] [id number] [place] [address] 04179- 5703 Dec, [facility] [id number] [place] [address] 45111- 7426 Dec, [facility] [id number] [place] [address] 49333- 1344 Dec, [facility] [id number] [place] [address] 72101- 4671 Dec, Undifferentiated schizophrenia F20.3 ; Panic disorder with agoraphobia F40.01 ; Chronic posttraumatic stress disorder F43.12 and BMI 50.0- 59.9, adult Z68.43 [facility] [address] [address] 0167 Dec, [facility] [address] [address] 1333 Dec, Undifferentiated schizophrenia F20.3 ; Insomnia G47.00 and Thyroid disorder E07.9 [facility] [address] [address] 5532 Dec, Undifferentiated schizophrenia F20.3 [facility] [address], [place] [address] 0162 Dec, [facility] [address], [place] [address]- 7078 Dec, [facility] [id number] [place] [address] 59535- 2948 Dec, BMI 50.0-59.9, adult Z68.43 ; Undifferentiated schizophrenia F20.3 ; Panic disorder without agoraphobia F41.0 and Chronic posttraumatic stress disorder F43.12 [facility] [id number] [place] [address] 18637- 3200 Dec, [facility] [id number] [place] [address] 32934- 3772 October, [facility] [id number] [place] [address] 20420- 4508 October, Pain in right shoulder M25.511 and Other chronic pain G89.29 [facility] [id number] [place] [address] 90674- 9523 October, Hypothyroid E03.9 [facility] [id number] [place] [address] 49821- 6686 Oct, Undifferentiated schizophrenia F20.3 [facility] [id number] [place] [address] 13880- 2062 Oct, [facility] [id number] [place] [address] 67427- 3379 Oct, [facility] [id number] [place] [address] 57283- 6712 Aug, Undifferentiated schizophrenia F20.3 [facility] [id number] [place] [address] 79397- 6723 Aug, [facility] [id number] [place] [address] 55476- 6884 Aug, Undifferentiated schizophrenia F20.3 ; Panic disorder with agoraphobia F40.01 ; Chronic posttraumatic stress disorder F43.12 and BMI 50.0- 59.9, adult Z68.43 [facility] [id number] [place] [address] 98060- 7984 05 Aug, 2017 [facility] [address] [place] [address]- 2342 Aug, [facility] [id number] [place] [address] 52712- 4816 Aug, Undifferentiated schizophrenia F20.3 [facility] [address], [place] [address] 9747 Aug, Hypothyroid E03.9 [facility] [id number] [place] [address] 86574- 2526 Jul, Undifferentiated schizophrenia F20.3 [facility] [id number] [place] [address] 07693- 6682 Jul, [facility] [id number] [place] [address] 13352- 1308 Jul, Undifferentiated schizophrenia F20.3 ; Chronic posttraumatic stress disorder F43.12 ; Panic disorder with agoraphobia F40.01 and BMI 50.0-59.9, adult Z68.43 [facility] [id number] [place] [address] 86175- 0777 Jul, [facility] [id number] [place] [address] 77568- 1228 Jul, Acute pain of right shoulder M25.511 ; High risk medication use Z79.899 ; Needle stick injury W27.3XXA ; Hypothyroid E03.9 and BMI 50.0-59.9 , adult Z68.43 [facility] [address], [place] [address] 5822 Jun, Undifferentiated schizophrenia F20.3 [facility] [address], [place] [address] 0567 Jun, Undifferentiated schizophrenia F20.3 ; Panic disorder without agoraphobia F41.0 ; Chronic posttraumatic stress disorder F43.12 and BMI 50.0-59.9, adult Z68.43 [facility] [id number] [place] [address] 84741- 9281 May, [facility] [id number] [place] [address] 18982- 0274 May, [facility] [id number] [place] [address] 51661- 9922 May, Undifferentiated schizophrenia F20.3 [facility] [id number] [place] [address] 59235- 1708 May, [facility] [id number] [place] [address] 06808- 3976 May, [facility] [id number] [place] [address] 35650- 6446 May, Hypothyroid E03.9 [facility] [id number] [place] [address] 97895- 9175 May, [facility] [id number] [place] [address] 39597- 0639 May, [facility] [id number] [place] [address] 01389- 2601 07 May, 2017 Chronic posttraumatic stress disorder F43.12 ; Panic disorder with agoraphobia F40.01 ; Undifferentiated schizophrenia F20.3 ; BMI 40.0-44.9, adult Z68.41 and Obesity E66.9 [facility] [id number] [place] [address] 46207- 6141 07 May, 2017 Shortness of breath R06.02 [facility] [id number] [place] [address] 05014- 7311 May, [facility] [id number] [place] [address] 99196- 7894 Apr, Undifferentiated schizophrenia F20.3 [facility] [id number] [place] [address] 48427- 1340 Apr, [facility] [id number] [place] [address] 94411- 5769 Apr, [facility] [id number] [address]- 3595 Mar, Undifferentiated schizophrenia F20.3 ; Panic disorder without agoraphobia F41.0 and Chronic posttraumatic stress disorder F43.12 [facility] [address], [place] [address]- 0701 Mar, Undifferentiated schizophrenia F20.3 [facility] [id number] [place] [address] 06487- 0667 Mar, [facility] [id number] [place] [address] 70443- 1050 Mar, [facility] [id number] [place] [address] 51475- 5773 Mar, [facility] [id number] [place] [address] 43728- 0199 Jan, Undifferentiated schizophrenia F20.3 [facility] [id number] [place] [address] 37954- 4201 Jan, [facility] [id number] [place] [address] 83177- 9824 Jan, [facility] [id number] [place] [address] 73494- 2860 Jan, [address] [id number] [address] Dec, Needle stick injury W27.3XXA [facility] [id number] [place] [address] 64598- 9809 Dec, Needle stick injury W27.3XXA [facility] [id number] [place] [address] 89951- 5869 Dec, Undifferentiated schizophrenia F20.3 [facility] [id number] [place] [address] 28353- 0440 Dec, [facility] [id number] [place] [address] 18087- 3861 Dec, [facility] [address], [place] [address]- 7444 Dec, Undifferentiated schizophrenia F20.3 ; Panic disorder with agoraphobia F40.01 and Chronic posttraumatic stress disorder F43.12 [facility] [address], [place] [address]- 4473 Dec, [facility] [id number] [place] [address] 14645- 2287 October, [facility] [id number] [place] [address] 57502- 2016 October, Undifferentiated schizophrenia F20.3 [facility] [id number] [place] [address] 58743- 6966 October, [facility] [address], [place] [address]- 4977 October, [facility] [id number] [place] [address] 07157- 5169 Oct, Undifferentiated schizophrenia F20.3 ; Panic disorder with agoraphobia F40.01 ; Chronic posttraumatic stress disorder F43.12 and Obesity E66.9 [facility] [id number] [address]- 1298 Oct, [facility] [address], [place] [address]- 3237 Oct, [facility] [id number] [place] [address] 16483- 7227 Aug, Undifferentiated schizophrenia F20.3 [facility] [address], [place] [address]- 9529 Aug, [facility] [id number] [place] [address] 32665- 9621 Aug, Muscle spasm M62.838 [facility] [id number] [address]- 1998 Aug, Undifferentiated schizophrenia F20.3 [facility] [address], [place] [address]- 0275 Aug, Undifferentiated schizophrenia F20.3 ; Panic disorder with agoraphobia F40.01 ; Chronic posttraumatic stress disorder F43.12 ; High risk medication use Z79.899 and 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 [facility] [address], [place] [address]- 0476 Aug, Undifferentiated schizophrenia F20.3 [facility] [id number] [place] [address] 75476- 1875 Aug, [facility] [id number] [place] [address] 52492- 8519 Aug, Acute non-recurrent maxillary sinusitis J01.00 [facility] [id number] [place] [address] 01415- 1556 Aug, [facility] [id number] [place] [address] 66456- 3440 Aug, [facility] [id number] [place] [address] 17130- 8474 Jul, Undifferentiated schizophrenia F20.3 [facility] [id number] [place] [address] 65604- 0960 Jul, Schizophrenia, undifferentiated F20.3 ; 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 ; Post-traumatic stress disorder F43.10 ; Panic disorder F41.0 and Depressive disorder, not elsewhere classified F32.9 [facility] [address], [place] [address]- 5028 Jul, [facility] [id number] [place] [address] 83187- 3367 Jul, Schizophrenia, undifferentiated F20.3 ; 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 ; Post-traumatic stress disorder F43.10 ; Panic disorder F41.0 and Depressive disorder, not elsewhere classified F32.9 [facility] [id number] [place] [address] 46814- 0223 Jul, [facility] [id number] [place] [address] 50129- 0893 Jul, Undifferentiated schizophrenia F20.3 ; Panic disorder with agoraphobia F40.01 ; 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 ; Obesity E66.9 and Chronic posttraumatic stress disorder F43.12 [facility] [id number] [place] [address] 81437- 2924 Jun, [facility] [id number] [place] [address] 64297- 1674 Jun, [facility] [id number] [place] [address] 39019- 9011 Jun, Dental caries K02.9 [facility] [id number] [place] [address] 85404- 9558 Jun, Undifferentiated schizophrenia F20.3 [facility] [id number] [place] [address] 66453- 3132 May, [facility] [id number] [place] [address] 31530- 2322 May, Undifferentiated schizophrenia F20.3 ; Panic disorder with agoraphobia F40.01 and Chronic post-traumatic stress disorder (PTSD) F43.12 [facility] [id number] [place] [address] 57927- 1058 May, [facility] [id number] [place] [address] 65680- 8321 May, Undifferentiated schizophrenia F20.3 [facility] [id number] [place] [address] 03902- 9149 May, [facility] [id number] [place] [address] 66877- 5121 07 May, 2016 Dental examination Z01.20 [facility] [id number] [place] [address] 62369- 9881 Apr, Undifferentiated schizophrenia F20.3 ; PTSD (post-traumatic stress disorder) F43.10 and Obesity E66.9 [place] [id number] [place] [address] 41079- 8722 Apr, [place] [address] 582409- 5785 Mar, [place] [address] 99717- 5386 Mar, [place] [address] 71356- 8590 Jan, Shortness of breath R06.02 and Bipolar disorder with psychotic features F31.9 [place] [address] 57118- 9569 Jan, [place] [address] 39824- 1300 Jan, Increased intracranial pressure G93.2 ; Visual disturbance H53.9 and Bipolar II disorder F31.81 [place] [id number] [place] [address] 24868- 5705 Jan, [place] [address] 94313- 2083 Jan, [place] [id number] [place] [address] 87031- 0459 Jan, [place] [id number] [place] [address] 87995- 5818 Jan, Acquired hypothyroidism E03.9 ; Depression F32.9 and Insomnia G47.00 [place] [id number] [place] [address] 90057- 2584 Jan, Exertional dyspnea R06.09 ; Heart palpitations R00.2 ; Hyperlipidemia, unspecified hyperlipidemia type E78.5 ; Hypothyroidism, unspecified type E03.9 and Hypokalemia E87.6 [place] [address] 18062- 6983 Dec, PTSD (post-traumatic stress disorder) F43.10 ; Depression F32.9 ; Insomnia G47.00 and Bipolar disorder with psychotic features F31.9 [place] [id number] [place] [address] 51701- 2301 Dec, Increased intracranial pressure G93.2 [place] [id number] [place] [address] 07610- 5300 Dec, [place] [address] 09852- 6907 Dec, Shortness of breath R06.[address] 62341- 4294 Dec, Visual disturbance H53.9 and Headache, unspecified headache type R51 [place] [id number] [place] [address] 35958- 5897 Dec, Insomnia G47.00 [place] [id number] [place] [address] 00579- 4178 Dec, Murmur R01.[address] 82320- 6323 Dec, Murmur R01.1 ; Tunnel vision, unspecified laterality H53.489 ; Orthostatic hypertension I10 ; Shortness of breath R06.02 and Tachycardia R00.0 [place] [id number] [place] [address] 53823- 4774 Dec, [place] [id number] [place] [address] 45283- 3431 Dec, Hypothyroid E03.9 and Bipolar 1 disorder F31.9 [place] [id number] [place] [address] 67722- 8131 15 Dec, 2015 Bipolar 1 disorder F31.9 [place] [id number] [place] [address] 29532- 8029 08 Dec, 2015 [place] [id number] [place] [address] 14830- 9611 October, Acquired hypothyroidism E03.9 ; Depression F32.9 and Insomnia G47.00 [facility] [id number] [place] [address] 75180- 4707 October, [facility] [id number] [place] [address] 56042- 4029 October, Bipolar 1 disorder F31.9 ; PTSD (post-traumatic stress disorder) F43.10 and 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 [facility] [id number] [place] [address] 76231- 5142 Oct, Bipolar 1 disorder F31.9 and Insomnia G47.00 [facility] [id number] [place] [address] 44122- 7890 Oct, [place] [id number] [place] [address] 69787- 1895 Oct, [facility] [id number] [place] [address] 25600- 4898 Aug, Hypothyroid E03.9 [facility] [id number] [place] [address] 28059- 1341 Aug, Encounter for therapeutic drug level monitoring Z51.81 and Other correction (current) drug therapy Z79.899 [place] [id number] [place] [address] 53707- 1583 Aug, Encounter for therapeutic drug level monitoring Z51.81 [facility] [id number] [place] [address] 66465- 4253 Aug, Acquired hypothyroidism E03.9 ; Leg pain M79.606 and Bipolar 1 disorder F31.9 [facility] [id number] [place] [address] 92557- 8285 Aug, [facility] [id number] [place] [address] 91844- 8342 Aug, [place] [id number] [place] [address] 86005- 2311 Jul, Thyroid disorder E07.9 [facility] [id number] [place] [address] 15678- 2197 Jul, Rash R21 ; Abnormal LFTs R94.5 ; Acquired hypothyroidism E03.9 ; Sleep apnea in adult G47.33 and Fatty liver K76.0 [facility] [address] 14248- 3204 Jun, [facility] [id number] [place] [address] 40835- 5324 Jun, [facility] [address] 00610- 7722 Jun, Bipolar II disorder F31.81 and Social phobia, generalized F40.11 [facility] [address] [place] [address] 32774- 8831 Mar, Bipolar II disorder 296.89 and Social phobia 300.23 [facility] [id number] [place] [address] 34100- 8702 Dec, [facility] [address] [place] [id number] [place] [address] 48460- 7304 Dec, [facility] [address] [place] [id number] [place] [address] 43377- 9880 Dec, Bipolar II disorder in partial or unspecified remission 296.89 and Social phobia, generalized 300.23 [facility] [id number] [place] [address]13- 5393 Oct, 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 [facility] [address] [address]- [address] 14 Oct, 2014 [facility] [id number] [place] [address] 21520- 5292 13 Oct, 2014 [facility] [address] [address]- [address] Aug, [facility] [place] [facility] [address] [id number] [place] [address] Aug, [facility] [place] [facility] [address] [id number] [place] [address] 30[address] Aug, [facility] [place] [facility] [address] [id number] [place] [address]67 Aug, [facility] [place] [facility] [address] [id number] [place] [address] 3039 Aug, [facility] [place] [facility] [address] [id number] [place] [address]- 5929 Aug, [facility] [place] [facility] [address] [id number] [place] [address] 3463 Aug, [facility] [place] [facility] [address] [id number] [place] [address]- 0400 Aug, [facility] [place] [facility] [address] [id number] [place] [address]- 9849 Jul, [facility] [place] [facility] [address] [id number] [place] [address]- 3717 Jul, [facility] [place] [facility] [address] [id number] [place] [address]- 3289 Jul, [facility] [place] [facility] [address] [id number] [place] [address]- 0460 Jul, [facility] [place] [facility] [address] [id number] [place] [address]- 1396 Jul, [facility] [place] [facility] [address] [id number] [place] [address]- 3263 Jul, [facility] [place] [facility] [address] [id number] [place] [address]- 6690 Jun, [facility] [place] [facility] [address] [id number] [place] [address] 1994 Jun, [facility] [place] [facility] [address] [id number] [place] [address]- 7639 Jun, [facility] [place] [facility] [address] [id number] [place] [address]- 2914 Jun, [facility] [place] [facility] [address] [id number] [place] [address]- 5469 Jun, [facility] [place] [facility] [address] [id number] [place] [address]- 3427 Jun, [facility] [place] [facility] [address] [id number] [place] [address]- 1734 Jun, [facility] [place] [facility] [address] [id number] [place] [address]- 2272 Jun, [facility] [place] [facility] [address] [id number] [place] [address]- 1565 Jun, [facility] [place] [facility] [address] [id number] [place] [address]- 6484 Jun, [facility] [place] [facility] [address] [id number] [place] [address]- 4224 Jun, [facility] [place] [facility] [address] [id number] [place] [address]- 2118 Jun, [facility] [place] [facility] [address] [id number] [place] [address]- 2872 Jun, [facility] [place] [facility] [address] [id number] [place] [address]- 2122 Jun, [facility] [place] [facility] [address] [id number] [place] [address]- 4811 Jun, [facility] [place] [facility] [address] [id number] [place] [address]- 3479 Jun, [facility] [place] [facility] [address] [id number] [place] [address]- 8021 May, [facility] [place] [facility] [address] [id number] [place] [address]- 9485 May, [facility] [place] [facility] [address] [id number] [place] [address]- 4[address] May, [facility] [place] [facility] [address] [address] [id number] [place] [address] May, [facility] [place] [facility] [address] [id number] [place] [address] May, [facility] [place] [facility] [address] [id number] [place] [address] May, [facility] [place] [facility] [address] [id number] [place] [address] Apr, [facility] [place] [facility] [address] [id number] [place] [address] Apr, [facility] [place] [facility] [address] [id number] [place] [address] Apr, [facility] [place] [facility] [address] [id number], [place] [address] Apr, [facility] [place] [facility] [address] [id number] [place] [address] Apr, [facility] [place] [facility] [address] [id number], [place] [address] Apr, [facility] [place] [facility] [address] [id number], [place] [address] Mar, [facility] [place] [facility] [address] [id number], [place] [address] Mar, [facility] [place] [facility] [address] [id number] [place] [address] Mar, [facility] [place] [facility] [address] [id number], [place] [address] Mar, [facility] [place] [facility] [address] [id number] [place] [address] 33[address] Jan, [facility] [place] [facility] [address] [id number] [place] [address] 2708 Jan, [facility] [place] [facility] [address] [id number] [place] [address] Jan, [facility] [place] [facility] [address] [id number] [place] [address] Jan, [facility] [place] [facility] [address] [id number] [place] [address]013 Jan, [facility] [place] [facility] [address] [id number] [place] [address] 1140 Jan, [facility] [place] [facility] [address] [id number] [place] [address] 7932 Dec, [facility] [place] [facility] [address] [id number] [place] [address]83 Dec, [facility] [place] [facility] [address] [id number] [place] [address] 0795 Dec, [facility] [place] [facility] [address] [id number] [place] [address]- [address]98 Dec, [facility] [place] [facility] [address] [id number] [place] [address]- [address] Dec, [facility] [place] [facility] [address] [id number] [place] [address] 5934 Dec, [facility] [place] [facility] [address] [id number] [place] [address]157 October, [facility] [place] [facility] [address] [id number] [place] [address]- 3375 October, [facility] [place] [facility] [address] [id number] [place] [address]- 5126 October, [facility] [place] [facility] [address] [id number] [place] [address]- 4990 October, [facility] [place] [facility] [address] [id number] [place] [address] 3403 October, [facility] [place] [facility] [address] [id number] [place] [address] 1439 October, [facility] [place] [facility] [address] [id number] [place] [address]- 6010 October, [facility] [place] [facility] [address] [id number] [place] [address] October, [facility] [place] [facility] [address] [id number] [place] [address]- 5559 Oct, [facility] [place] [facility] [address] [id number] [place] [address]- 5789 Oct, [facility] [place] [facility] [address] [id number] [place] [address]- 5869 Oct, [facility] [place] [facility] [address] [id number] [place] [address] 3796 Oct, [facility] [place] [facility] [address] [id number] [place] [address] 3847 Oct, [facility] [place] [facility] [address] [id number] [place] [address] 9282 Aug, [facility] [place] [facility] [address] [id number] [place] [address] 8758 Aug, [facility] [place] [facility] [address] [id number] [place] [address]21 Aug, [facility] [place] [facility] [address] [id number] [place] [address]- 8583 Aug, [facility] [place] [facility] [address] [id number] [place] [address]45 Aug, [facility] [place] [facility] [address] [id number] [place] [address] 1002 Aug, [facility] [place] [facility] [address] [id number] [place] [address] Jul, [facility] [place] [facility] [address] [id number], [place] [address] Jul, [facility] [address] [id number] [place] [address]103 Jul, [facility] [place] [facility] [address] [id number] [place] [address] Jul, [facility] [place] [facility] [address] [id number] [place] [address] 8679 Jul, [facility] [place] [facility] [address] [id number] [place] [address] Jul, [facility] [place] [facility] [address] [id number] [place] [address] 0042 Jun, [facility] [place] [facility] [address] [id number] [place] [address] 8993 Jun, [facility] [place] [facility] [address] [id number] [place] [address]- 2128 Jun, [facility] [place] [facility] [address] [id number] [place] [address]- 0587 Jun, [facility] [place] [facility] [address] [id number] [place] [address] 1884 Jun, [facility] [place] [facility] [address] [id number] [place] [address] 7063 Jun, [facility] [place] [facility] [address] [id number], [place] [address] May, [facility] [place] [facility] [address] [id number], [place] [address] May, [facility] [place] [facility] [address] [id number], [place] [address] 4727 Apr, [facility] [place] [facility] [address] [id number] [place] [address] 0074 Apr, [facility] [place] [facility] [address] [id number] [place] [address] 0393 Apr, [facility] [place] [facility] [address] [id number] [place] [address] 5063 Apr, 2012 [facility] [place] [facility] [address] [id number] [place] [address] 7833 Apr, [facility] [place] [facility] [address] [id number] [place] [address] 5205 Apr, [facility] [place] [facility] [address] [id number] [place] [address] 1569 Apr, 2012 [facility] [place] [facility] [address] [id number] [place] [address] 8247 Apr, [facility] [place] [facility] [address] [id number] [place] [address] 9202 Apr, [facility] [place] [facility] [address] [id number] [place] [address] 5917 Apr, [facility] [place] [facility] [address] [id number] [place] [address] 1414 Apr, [facility] [place] [facility] [address] [id number] [place] [address]- 5780 23 Mar, 2012 [facility] [place] [facility] [address] [id number] [place] [address]- 1841 20 Mar, 2012 [facility] [place] [facility] [address] [id number] [place] [address]- 3393 20 Mar, 2012 [facility] [place] [facility] [address] [id number] [place] [address]- 0521 14 Mar, 2012 [facility] [place] [facility] [address] [id number] [place] [address]- 2541 12 Mar, 2012 [facility] [place] [facility] [address] [id number] [place] [address]- 4742 06 Mar, 2012 [facility] [place] [facility] [address] [id number] [place] [address]- 2546 06 Mar, 2012 [facility] [place] [facility] [address] [id number] [place] [address]- 5099 Jan, [facility] [address] [id number] [place] [address]- 4572 Jan, [facility] [place] [facility] [address] [id number] [place] [address]- 7678 Jan, [facility] [place] [facility] [address] [id number] [place] [address]- 0870 Jan, [facility] [place] [facility] [address] [id number] [place] [address]- 9241 Jan, [facility] [place] [facility] [address] [id number] [place] [address]- 5270 Jan, [facility] [place] [facility] [address] [id number] [place] [address]- 6863 Jan, [facility] [place] [facility] [address] [id number] [place] [address]- 5420 Dec, [facility] [place] [facility] [address] [id number] [place] [address]- 0804 Dec, [facility] [place] [facility] [address] [id number] [place] [address]- 9148 Dec, [facility] [place] [facility] [address] [id number] [place] [address]- 4103 Dec, [facility] [place] [facility] [address] [id number] [place] [address]- 0844 Dec, [facility] [place] [facility] [address] [id number] [place] [address]- 2709 Dec, [facility] [place] [facility] [address] [id number] [place] [address]- 7151 October, [facility] [place] [facility] [address] [id number] [place] [address]- 2514 October, [facility] [place] [facility] [address] [id number] [place] [address]- 8814 October, [facility] [place] [facility] [address] [id number] [place] [address]- 1856 10 Oct, 2012 [facility] [address] [id number] [place] [address]- 4589 Oct, [facility] [place] [facility] [address] [id number] [place] [address] Oct, [facility] [address] [facility] [id number] [place] [address]- 3309 27 Aug, 2012 [facility] [place] [facility] [address] [facility] [id number] [place] [address]- 3755 26 Aug, 2012 [facility] [address] [id number] [place] [address]- 7039 Aug, [facility] [place] [facility] [address] [facility] [id number] [place] [address]- 1598 Aug, [facility] [address] [facility] [id number] [place] [address]- 2327 Aug, [facility] [address] [facility] [id number] [place] [address]- 7280 Aug, [facility] [place] [facility] [address] [facility] [id number] [place] [address]- 9041 Aug, [facility] [place] [facility] [address] [facility] [id number] [place] [address]- 9433 Aug, [facility] [place] [facility] [address] [id number] [place] [address]- 4528 Aug, [facility] [place] [facility] [address] [facility] [id number] [place] [address]- 3569 11 Aug, 2012 [facility] [place] [facility] [address] [facility] [id number] [place] [address]- 7880 10 Aug, 2012 [facility] [place] [facility] [address] [facility] [id number] [place] [address]- 1416 08 Aug, 2012 [facility] [place] [facility] [id number] [address] Aug, [facility] [id number] [address]- 6987 Aug, [facility] [id number], [place] [address]- 2516 Jul, [facility] [id number], [place] [address]- 2283 Jul, [facility] [id number] [place] [address]- 8453 Jul, [facility] [id number] [place] [address]- 3811 Jul, [facility] [id number] [place] [address]- 4812 Jun, [facility] [id number] [place] [address] 26[address]- 7975 Jun, [facility] [id number], [place] [address]- 2995 Jun, [facility] [id number], [place] [address]- 5555 Jun, [facility] [id number], [place] [address]- 0212 May, [facility] [id number], [place] [address]- 2662 May, IMMUNIZATIONS Vaccine Route Administration Date Status ARISTADA 882 MG/3.2 ML (PT'S OWN) IM Intramuscular January 18, 2018 Administered SOCIAL HISTORY Never Assessed REASON FOR VISIT 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, 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 PLAN OF CARE Activity Details Follow Up 2 Months Reason: VITAL SIGNS Height 67 in 2018-01-18 Weight 343 lbs 2018-01-18 Heart Rate 80 bpm 2018-01-18 BMI 53.72 kg/m2 2018-01-18 Blood pressure systolic 120 mmHg 2018-01-18 Blood pressure diastolic 74 mmHg 2018-01-18 MEDICATIONS Medication Instructions Dosage Frequency Start Date End Date Duration Status Breo Ellipta 100-25 MCG/INH Inhalation Once a day 1 puff 24h 20 Dec, 2015 90 days Active Levothyroxine Sodium 100 MCG Orally Once a day 1 tablet 24h 30 Sep, 2015 90 days Active [place] Carbonate 300 MG Orally 2 times a day (For Mood) 1 tablet in the morning, 2 tablets at bedtime Active Trazodone HCl 100 mg Orally Once a day 2 tablet at bedtime 24h Active Neurontin 800 MG Orally 2 times a day 1 tablet 12h Aug, Active Seroquel 50 mg Orally at bedtime for sleep 1 tablet May, Active Aristada 882 MG/3.2ML Intramuscular once monthly 3.2 ml May, Active HydrOXYzine HCl 25 MG Orally two times per day for anxiety 1 tablet as needed Dec, Active Clonazepam 1 MG Orally 3 times a day for anxiety 1 tablet Apr, 30 days Active RESULTS No Results PROCEDURES Procedure Date Ordered Result Body Site ARISTADA 882 MG/3.2 ML (PT'S OWN) January 18, 2018 THER/PROPH/DIAG INJ, SC/IM January 18, 2018 INSTRUCTIONS MEDICATIONS ADMINISTERED No Known Medications [...]
--- OUTSIDE RECORDS SUMMARY | 2018-09-02 18:02 | XMS REPORT ---
Author Author HANSA DILLON [facility] Address [address] [place] [address] Care Team Providers Care Community Marketing Manager Name Role Phone WILMA, DAWRICKEY Unavailable PROBLEMS Type Condition ICD9-CM Code [id number] Code Onset Dates Condition Status SNOMED Code Problem Panic disorder with agoraphobia F40.01 Active 38338606 Problem Depressive disorder, not elsewhere classified F32.9 Active 04451664 Problem Chronic posttraumatic stress disorder F43.12 Active 067872027 Problem Insomnia G47.00 Active 148442293 Problem Obesity E66.9 Active 042216622 Problem Other chronic pain G89.29 Active 99649669 Problem Fatty liver K76.0 Active 529361118 Problem Abuse, drug or alcohol F19.10 Active 65962657 Problem Panic disorder without agoraphobia F41.0 Active 76137258 Problem Panic disorder F41.0 Active 901278625 Problem Hypothyroid E03.9 Active 99502344 Problem BMI 50.0-59.9, adult Z68.43 Active 786018203 Problem Restless legs syndrome G25.81 Active 530964295 Problem Encounter for therapeutic drug level monitoring Z51.81 Active 902072332 Problem Neuropathy G62.9 Active 989952781 Problem 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 Active 67643991 Problem Tachycardia R00.0 Active 3161954 Problem Murmur R01.1 Active 480046500 Problem Orthostatic hypertension I10 Active 86381366 Problem Shortness of breath R06.02 Active 017118601 Problem Sleep apnea in adult G47.33 Active 69856800 Problem Tunnel vision, unspecified laterality H53.489 Active 486618598 Problem Undifferentiated schizophrenia F20.3 Active 149722127 ALLERGIES No Information ENCOUNTERS Encounter Location Date Diagnosis [facility] [id number] [address] 18 Apr, 2018 [facility] [address], [place] [address] Jan, [facility] [id number] [place] [address] 70117- 0702 Jan, Undifferentiated schizophrenia F20.3 [facility] [id number] [address] 9982 Jan, [facility] [id number] [place] [address] 35429- 0738 Jan, Undifferentiated schizophrenia F20.3 [facility] [id number] [place] [address] 03658- 8869 Dec, [facility] [id number] [place] [address] 54568- 3199 Dec, [facility] [id number] [place] [address] 25276- 1778 Dec, [facility] [id number] [place] [address] 87252- 1038 Dec, Undifferentiated schizophrenia F20.3 ; Panic disorder with agoraphobia F40.01 ; Chronic posttraumatic stress disorder F43.12 and BMI 50.0- 59.9, adult Z68.43 [facility] [address] [address] 8471 Dec, [facility] [id number] [place] [address] 01599- 7980 Dec, Undifferentiated schizophrenia F20.3 ; Insomnia G47.00 and Thyroid disorder E07.9 [facility] [address], [place] [address] 1428 Dec, Undifferentiated schizophrenia F20.3 [facility] [id number] [place] [address] 45091- 2363 Dec, [facility] [address], [place] [address]- 4275 Dec, [facility] [id number] [place] [address] 55260- 6607 14 Dec, 2017 BMI 50.0-59.9, adult Z68.43 ; Undifferentiated schizophrenia F20.3 ; Panic disorder without agoraphobia F41.0 and Chronic posttraumatic stress disorder F43.12 [facility] [id number] [place] [address] 57772- 3847 Dec, [facility] [id number] [place] [address] 09459- 4166 October, [facility] [id number] [place] [address] 72405- 3196 October, Pain in right shoulder M25.511 and Other chronic pain G89.29 [facility] [id number] [place] [address] 27344- 2712 October, Hypothyroid E03.9 [facility] [id number] [place] [address] 06025- 4709 Oct, Undifferentiated schizophrenia F20.3 [facility] [id number] [place] [address] 81436- 6203 Oct, [facility] [id number] [place] [address] 41555- 2067 Oct, [facility] [id number] [place] [address] 07224- 3463 Aug, Undifferentiated schizophrenia F20.3 [facility] [id number] [place] [address] 96776- 2832 Aug, [facility] [id number] [place] [address] 66414- 0388 Aug, Undifferentiated schizophrenia F20.3 ; Panic disorder with agoraphobia F40.01 ; Chronic posttraumatic stress disorder F43.12 and BMI 50.0- 59.9, adult Z68.43 [facility] [id number] [place] [address] 00570- 7711 05 Aug, 2017 [facility] [id number] [address]- 6287 Aug, [facility] [id number] [place] [address] 25011- 4033 Aug, Undifferentiated schizophrenia F20.3 [facility] [id number] [place] [address] 42392- 3055 Aug, Hypothyroid E03.9 [facility] [id number] [place] [address] 99702- 7236 Jul, Undifferentiated schizophrenia F20.3 [facility] [id number] [place] [address] 85995- 5215 Jul, [address] [id number] [place] [address] 88816- 4022 Jul, Undifferentiated schizophrenia F20.3 ; Chronic posttraumatic stress disorder F43.12 ; Panic disorder with agoraphobia F40.01 and BMI 50.0-59.9, adult Z68.43 [facility] [id number] [place] [address] 68582- 6647 15 Jul, 2017 [facility] [id number] [place] [address] 88570- 0187 08 Jul, 2017 Acute pain of right shoulder M25.511 ; High risk medication use Z79.899 ; Needle stick injury W27.3XXA ; Hypothyroid E03.9 and BMI 50.0-59.9 , adult Z68.43 [facility] [address] [place] [address] 44890- 3059 Jun, Undifferentiated schizophrenia F20.3 [facility] [address] [place] [address] 37755- 3177 14 Jun, 2017 Undifferentiated schizophrenia F20.3 ; Panic disorder without agoraphobia F41.0 ; Chronic posttraumatic stress disorder F43.12 and BMI 50.0-59.9, adult Z68.43 [facility] [id number] [place] [address] 20265- 6213 May, [facility] [address], [place] [address]- 5714 May, [facility] [id number] [place] [address] 00559- 5758 May, Undifferentiated schizophrenia F20.3 [facility] [id number] [place] [address] 56893- 3726 May, [facility] [address] 40661- 5127 May, [facility] [id number] [place] [address] 46728- 5511 May, Hypothyroid E03.9 [facility] [id number] [place] [address] 92757- 0324 May, [facility] [id number] [place] [address] 12503- 1784 May, [facility] [id number] [place] [address] 05068- 8687 May, Chronic posttraumatic stress disorder F43.12 ; Panic disorder with agoraphobia F40.01 ; Undifferentiated schizophrenia F20.3 ; BMI 40.0-44.9, adult Z68.41 and Obesity E66.9 [facility] [id number] [place] [address] 91574- 5119 May, Shortness of breath R06.02 [facility] [id number] [place] [address] 01490- 1439 May, [facility] [id number] [place] [address] 85028- 1325 Apr, Undifferentiated schizophrenia F20.3 [facility] [id number] [place] [address] 80216- 5193 Apr, [facility] [id number] [place] [address] 69479- 6478 Apr, [facility] [address], [place] [address]- 2337 Mar, Undifferentiated schizophrenia F20.3 ; Panic disorder without agoraphobia F41.0 and Chronic posttraumatic stress disorder F43.12 [facility] [address], [place] [address]- 0570 Mar, Undifferentiated schizophrenia F20.3 [facility] [id number] [place] [address] 04684- 5365 18 Mar, 2017 [facility] [address], [place] [address]- 9755 08 Mar, 2017 [facility] [id number] [place] [address] 24624- 9795 Mar, [facility] [id number] [place] [address] 19249- 8089 Jan, Undifferentiated schizophrenia F20.3 [facility] [id number] [place] [address] 16727- 9505 Jan, [facility] [address], [place] [address]- 4475 Jan, [facility] [id number] [place] [address] 00311- 8029 Jan, [id number] [id number] Dec, Needle stick injury W27.3XXA [facility] [address], [place] [address]- 8622 Dec, Needle stick injury W27.3XXA [facility] [id number] [place] [address] 28879- 7388 Dec, Undifferentiated schizophrenia F20.3 [facility] [address], [place] [address]- 2904 Dec, [facility] [id number] [place] [address] 99492- 6568 Dec, [facility] [address], [place] [address]- 5942 Dec, Undifferentiated schizophrenia F20.3 ; Panic disorder with agoraphobia F40.01 and Chronic posttraumatic stress disorder F43.12 [facility] [address], [place] [address]- 2940 Dec, [facility] [id number] [place] [address] 85943- 0242 October, [facility] [address], [place] [address]- 3283 October, Undifferentiated schizophrenia F20.3 [facility] [id number] [address]- 7496 October, [facility] [address], [place] [address]- 6784 October, [facility] [id number] [place] [address] 75735- 5733 Oct, Undifferentiated schizophrenia F20.3 ; Panic disorder with agoraphobia F40.01 ; Chronic posttraumatic stress disorder F43.12 and Obesity E66.9 [facility] [address], [place] [address]- 8751 Oct, [facility] [address], [place] [address]- 4276 Oct, [facility] [address], [place] [address]- 3930 Aug, Undifferentiated schizophrenia F20.3 [facility] [address], [place] [address]- 2467 Aug, [facility] [id number] [address]- 1829 Aug, Muscle spasm M62.838 [facility] [id number] [address]- 3948 Aug, Undifferentiated schizophrenia F20.3 [facility] [address], [place] [address]- 8664 Aug, Undifferentiated schizophrenia F20.3 ; Panic disorder with agoraphobia F40.01 ; Chronic posttraumatic stress disorder F43.12 ; High risk medication use Z79.899 and 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 [facility] [id number] [place] [address] 56899- 2949 Aug, Undifferentiated schizophrenia F20.3 [facility] [id number] [place] [address] 38787- 7388 Aug, [facility] [id number] [place] [address] 25267- 8301 Aug, Acute non-recurrent maxillary sinusitis J01.00 [facility] [id number] [place] [address] 73024- 4485 Aug, [facility] [id number] [place] [address] 21700- 5046 Aug, [facility] [id number] [place] [address] 89491- 2738 Jul, Undifferentiated schizophrenia F20.3 [facility] [address] [place] [address] 18803- 8216 Jul, Schizophrenia, undifferentiated F20.3 ; 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 ; Post-traumatic stress disorder F43.10 ; Panic disorder F41.0 and Depressive disorder, not elsewhere classified F32.9 [facility] [address] [place] [address] 14201- 8813 Jul, [facility] [id number] [place] [address] 28290- 2675 Jul, Schizophrenia, undifferentiated F20.3 ; 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 ; Post-traumatic stress disorder F43.10 ; Panic disorder F41.0 and Depressive disorder, not elsewhere classified F32.9 [facility] [id number] [place] [address] 80138- 9421 Jul, [facility] [address] [place] [address] 08179- 7228 Jul, Undifferentiated schizophrenia F20.3 ; Panic disorder with agoraphobia F40.01 ; 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 ; Obesity E66.9 and Chronic posttraumatic stress disorder F43.12 [facility] [id number] [place] [address] 08234- 3598 Jun, [facility] [id number] [place] [address] 05704- 2450 Jun, [facility] [id number] [place] [address] 06561- 5636 Jun, Dental caries K02.9 [facility] [id number] [place] [address] 48937- 3537 Jun, Undifferentiated schizophrenia F20.3 [facility] [id number] [place] [address] 97479- 2922 May, [facility] [id number] [place] [address] 74054- 1240 May, Undifferentiated schizophrenia F20.3 ; Panic disorder with agoraphobia F40.01 and Chronic post-traumatic stress disorder (PTSD) F43.12 [facility] [id number] [place] [address] 27939- 9591 May, [facility] [id number] [place] [address] 16201- 3910 May, Undifferentiated schizophrenia F20.3 [facility] [id number] [place] [address] 66869- 6039 May, [facility] [id number] [place] [address] 73377- 8045 07 May, 2016 Dental examination Z01.20 [facility] [id number] [place] [address] 12918- 1590 Apr, Undifferentiated schizophrenia F20.3 ; PTSD (post-traumatic stress disorder) F43.10 and Obesity E66.9 [facility] [id number] [place] [address] 20392- 6789 Apr, [facility] [id number] [place] [address] 25558- 8942 Mar, [facility] [id number] [place] [address] 27198- 5845 Mar, [facility] [id number] [place] [address] 17481- 2566 Jan, Shortness of breath R06.02 and Bipolar disorder with psychotic features F31.9 [facility] [address] 74053- 7885 Jan, [facility] [id number] [place] [address] 42405- 7279 Jan, Increased intracranial pressure G93.2 ; Visual disturbance H53.9 and Bipolar II disorder F31.81 [facility] [id number] [place] [address] 41694- 1460 Jan, [facility] [id number] [place] [address] 96008- 1981 Jan, [facility] [id number] [place] [address] 22001- 4465 Jan, [facility] [id number] [place] [address] 14334- 3777 Jan, Acquired hypothyroidism E03.9 ; Depression F32.9 and Insomnia G47.00 [facility] [id number] [place] [address] 37483- 2035 Jan, Exertional dyspnea R06.09 ; Heart palpitations R00.2 ; Hyperlipidemia, unspecified hyperlipidemia type E78.5 ; Hypothyroidism, unspecified type E03.9 and Hypokalemia E87.6 [facility] [id number] [place] [address] 05453- 2159 Dec, PTSD (post-traumatic stress disorder) F43.10 ; Depression F32.9 ; Insomnia G47.00 and Bipolar disorder with psychotic features F31.9 [facility] [address] 46877- 6972 Dec, Increased intracranial pressure G93.[address] 85535- 1508 Dec, [facility] [address] 49446- 9508 Dec, Shortness of breath R06.[address] 11268- 5784 Dec, Visual disturbance H53.9 and Headache, unspecified headache type R51 [address] 49252- 0096 Dec, Insomnia G47.[address] 93825- 5204 Dec, Murmur R01.[address] 78077- 2322 Dec, Murmur R01.1 ; Tunnel vision, unspecified laterality H53.489 ; Orthostatic hypertension I10 ; Shortness of breath R06.02 and Tachycardia R00.[address] 02978- 8029 Dec, [address] 42338- 4979 Dec, Hypothyroid E03.9 and Bipolar [address] 63842- 0568 15 Dec, 2015 Bipolar [address] 98412- 2071 08 Dec, 2015 [id number] [place] [address] 38611- 7675 October, Acquired hypothyroidism E03.9 ; Depression F32.9 and Insomnia G47.00 [facility] [id number] [place] [address] 37643- 3198 October, [facility] [id number] [place] [address] 85586- 2052 October, Bipolar 1 disorder F31.9 ; PTSD (post-traumatic stress disorder) F43.10 and 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 [facility] [id number] [place] [address] 37132- 7099 Oct, Bipolar 1 disorder F31.9 and Insomnia G47.00 [facility] [id number] [place] [address] 13348- 7611 Oct, [facility] [address] 91426- 3859 Oct, [facility] [id number] [place] [address] 57159- 0648 Aug, Hypothyroid E03.9 [facility] [id number] [place] [address] 96124- 7549 Aug, Encounter for therapeutic drug level monitoring Z51.81 and Other long term care administrator (current) drug therapy Z79.899 [facility] [id number] [place] [address] 08132- 7009 Aug, Encounter for therapeutic drug level monitoring Z51.81 [facility] [id number] [place] [address] 26377- 2403 Aug, Acquired hypothyroidism E03.9 ; Leg pain M79.606 and Bipolar 1 disorder F31.9 [facility] [id number] [place] [address] 59898- 4339 Aug, [facility] [id number] [place] [address] 05805- 7731 Aug, [facility] [id number] [place] [address] 18681- 7826 Jul, Thyroid disorder E07.9 [facility] [id number] [place] [address] 97401- 6539 Jul, Rash R21 ; Abnormal LFTs R94.5 ; Acquired hypothyroidism E03.9 ; Sleep apnea in adult G47.33 and Fatty liver K76.0 [facility] [address] 28590- 2505 Jun, [facility] [address] 76839- 6706 Jun, [facility] [address] 32263- 0655 Jun, Bipolar II disorder F31.81 and Social phobia, generalized F40.11 [facility] [address] [place] [address] 17111- 2257 Mar, Bipolar II disorder 296.89 and Social phobia 300.23 [facility] [id number] [place] [address] 94076- 9772 Dec, [facility] [id number] [place] [address] 20651- 1802 Dec, [facility] [id number] [place] [address] 39349- 5504 Dec, Bipolar II disorder in partial or unspecified remission 296.89 and Social phobia, generalized 300.23 [facility] [id number] [place] [address] 92804- 7543 Oct, 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 [facility] [address] 02634- 5299 Oct, [facility] [id number] [place] [address] 98617- 1769 Oct, [facility] [address] 71730- 5559 Aug, [facility] [place] [facility] [address] [id number] [place] [address]- 8429 Aug, [facility] [place] [facility] [address] [id number] [place] [address]- 4136 Aug, [facility] [place] [facility] [address] [id number] [place] [address]- 1455 Aug, [facility] [place] [facility] [address] [id number] [place] [address]- 4939 Aug, [facility] [place] [facility] [address] [id number] [place] [address]- 4958 Aug, [facility] [place] [facility] [address] [id number] [place] [address]- 9985 Aug, [facility] [place] [facility] [address] [id number] [place] [address]- 0549 Aug, [facility] [place] [facility] [address] [id number] [place] [address] Jul, [facility] [place] [facility] [address] [id number] [place] [address] Jul, [facility] [place] [facility] [address] [facility] [id number] [place] [address] Jul, [facility] [place] [facility] [address] [id number] [place] [address] Jul, [facility] [place] [facility] [address] [id number] [address] Jul, [facility] [place] [facility] [address] [id number] [place] [address] Jul, [facility] [place] [facility] [address] [id number] [place] [address] Jun, [facility] [place] [facility] [address] [id number] [place] [address] Jun, [facility] [place] [facility] [address] [id number] [place] [address] Jun, [facility] [place] [facility] [address] [id number] [place] [address] Jun, [facility] [place] [facility] [address] [id number] [place] [address] Jun, [facility] [place] [facility] [address] [id number] [place] [address] Jun, [facility] [place] [facility] [address] [id number] [place] [address] Jun, [facility] [place] [facility] [address] [id number] [place] [address] Jun, [facility] [place] [facility] [address] [id number] [place] [address] Jun, [facility] [place] [facility] [address] [id number] [place] [address] Jun, [facility] [place] [facility] [address] [id number] [place] [address] Jun, [facility] [place] [facility] [address] [id number] [place] [address] Jun, [facility] [place] [facility] [address] [id number] [place] [address] Jun, [facility] [place] [facility] [address] [id number] [place] [address] Jun, [facility] [place] [facility] [address] [id number] [place] [address] Jun, [facility] [place] [facility] [address] [id number] [place] [address] Jun, [facility] [place] [facility] [address] [id number] [place] [address] May, [facility] [place] [facility] [address] [id number] [place] [address] May, [facility] [place] [facility] [address] [id number] [place] [address] May, [facility] [place] [facility] [address] [id number] [place] [address] May, [facility] [place] [facility] [address] [id number] [place] May, [facility] [place] [facility] [address] [id number] [place] [address] May, [facility] [place] [facility] [address] [id number] [place] [address] Apr, [facility] [place] [facility] [address] [address] [id number] [place] [address] Apr, [facility] [place] [facility] [address] [id number] [place] [address] Apr, [facility] [place] [facility] [address] [id number], [place] [address] Apr, [facility] [place] [facility] [address] [id number] [place] [address] Apr, [facility] [place] [facility] [address] [id number], [place] [address] Apr, [facility] [place] [facility] [address] [id number], [place] [address] Mar, [facility] [place] [facility] [address] [id number], [place] [address] Mar, [facility] [place] [facility] [address] [id number], [place] [address] 164[address] Mar, [facility] [place] [facility] [address] [id number], [place] [address] Mar, [facility] [place] [facility] [address] [id number], [place] [address] Jan, [facility] [place] [facility] [address] [id number] [place] [address] Jan, [facility] [place] [facility] [address] [id number] [place] [address] 2679 Jan, [facility] [place] [facility] [address] [id number] [place] [address] Jan, [facility] [place] [facility] [address] [id number] [place] [address]- 2170 Jan, [facility] [place] [facility] [address] [id number] [place] [address] 1187 Jan, [facility] [place] [facility] [address] [id number] [place] [address] 9400 Dec, [facility] [place] [facility] [address] [id number] [place] [address]- 8868 Dec, [facility] [place] [facility] [address] [id number] [place] [address]- 8586 Dec, [facility] [place] [facility] [address] [id number] [place] [address] 5464 Dec, [facility] [place] [facility] [address] [id number] [place] [address]- 2163 Dec, [facility] [place] [facility] [address] [id number] [place] [address] 7710 Dec, [facility] [place] [facility] [address] [id number] [place] [address] 0439 October, [facility] [place] [facility] [address] [id number] [place] [address] 3820 October, [facility] [place] [facility] [address] [id number] [place] [address] 9640 October, [facility] [place] [facility] [address] [id number] [place] [address] 2204 October, [facility] [place] [facility] [address] [id number] [place] [address] 3805 October, [facility] [place] [facility] [address] [id number] [place] [address]- 8833 October, [facility] [place] [facility] [address] [id number] [place] [address] 9190 October, [facility] [place] [facility] [address] [id number] [place] [address] October, [facility] [place] [facility] [address] [id number] [place] [address] 8471 Oct, [facility] [place] [facility] [address] [id number] [place] [address]- 5490 Oct, [facility] [place] [facility] [address] [id number] [place] [address]- 4288 Oct, [facility] [place] [facility] [address] [id number] [place] [address]- 2234 Oct, [facility] [place] [facility] [address] [id number] [place] [address]- 5504 Oct, [facility] [place] [facility] [address] [id number] [place] [address] 9423 Aug, [facility] [place] [facility] [address] [id number] [place] [address] 4683 Aug, [facility] [place] [facility] [address] [id number] [place] [address] 9392 Aug, [facility] [place] [facility] [address] [id number] [place] [address]- 0188 Aug, [facility] [place] [facility] [address] [id number] [place] [address] 5777 Aug, [facility] [place] [facility] [address] [id number] [place] [address] 2749 Aug, [facility] [place] [facility] [address] [id number] [place] [address] 9205 Jul, [facility] [place] [facility] [address] [id number], [place] [address] Jul, [facility] [address] [id number] [place] [address] 1021 Jul, [facility] [place] [facility] [address] [id number], [place] [address] 1376 Jul, [facility] [place] [facility] [address] [facility] [id number] [place] [address]- 2758 Jul, [facility] [place] [facility] [address] [id number] [place] [address]- 0644 Jul, [facility] [address] [facility] [id number] [place] [address]- 9904 Jun, [facility] [place] [facility] [address] [id number] [place] [address]- 4070 Jun, [facility] [address] [id number], [place] [address] Jun, [facility] [place] [facility] [address] [id number] [place] [address]- 6989 Jun, [facility] [place] [facility] [address] [facility] [id number] [place] [address]- 4970 Jun, [facility] [place] [facility] [address] [facility] [id number] [place] [address]- 5087 Jun, [facility] [place] [facility] [address] [id number], [place] [address] 8[address] May, [facility] [place] [facility] [address] [id number], [place] [address]- 8497 May, [facility] [place] [facility] [address] [id number], [place] [address]- 5329 Apr, [facility] [place] [facility] [address] [facility] [id number], [place] [address]- 6071 Apr, [facility] [place] [facility] [address] [facility] [id number], [place] [address]- 7[address] Apr, [facility] [place] [facility] [address] [id number] [place] [address] 8007 Apr, 2012 [facility] [place] [facility] [address] [id number] [place] [address]- 5265 Apr, [facility] [place] [facility] [address] [id number] [place] [address]- 1783 Apr, [facility] [place] [facility] [address] [id number] [place] [address]- 8525 Apr, 2012 [facility] [place] [facility] [address] [id number] [place] [address]- 5096 Apr, [facility] [place] [facility] [address] [id number] [place] [address]- 0052 Apr, [facility] [place] [facility] [address] [id number] [place] [address] 1961 Apr, [facility] [place] [facility] [address] [id number] [place] [address]- 9885 Apr, [facility] [place] [facility] [address] [id number] [place] [address]- 7871 23 Mar, 2012 [facility] [place] [facility] [address] [id number] [place] [address]- 7323 20 Mar, 2012 [facility] [place] [facility] [address] [id number] [place] [address]- 0900 20 Mar, 2012 [facility] [place] [facility] [address] [id number] [place] [address]- 2538 14 Sep, 2012 [facility] [place] [facility] [address] [id number] [place] [address]- 2548 12 Mar, 2012 [facility] [place] [facility] [address] [id number] [place] [address]- 2540 06 Mar, 2012 [facility] [place] [facility] [address] [id number] [place] [address]- 254 06 Mar, 2012 [facility] [place] [facility] [address] [id number] [place] [address]- 0483 Jan, [facility] [address] [id number] [place] [address]- 9454 Jan, [facility] [place] [facility] [address] [id number] [place] [address]- 0609 Jan, [facility] [place] [facility] [address] [id number] [place] [address]- 6131 Jan, [facility] [place] [facility] [address] [id number] [place] [address]- 3677 Jan, [facility] [place] [facility] [address] [id number] [place] [address]- 0956 Jan, [facility] [place] [facility] [address] [id number] [place] [address]- 6643 Jan, [facility] [place] [facility] [address] [id number] [place] [address]- 8072 Dec, [facility] [place] [facility] [address] [id number] [place] [address]- 9535 Dec, [facility] [place] [facility] [address] [id number] [place] [address]- 4825 Dec, [facility] [place] [facility] [address] [id number] [place] [address]- 6247 Dec, [facility] [place] [facility] [address] [id number] [place] [address]- 1298 Dec, [facility] [place] [facility] [address] [id number] [place] [address]- 8951 Dec, [facility] [place] [facility] [address] [id number] [place] [address]- 6195 October, [facility] [place] [facility] [address] [id number] [place] [address]- 0296 October, [facility] [place] [facility] [address] [id number] [place] [address]- 9379 October, [facility] [place] [facility] [address] [id number] [place] [address]- 0525 October, [facility] [address] [id number] [place] [address]- 2248 Oct, [facility] [place] [facility] [address] [id number] [place] [address]- 7096 Oct, [facility] [address] [id number] [place] [address]- 6150 27 Aug, 2012 [facility] [place] [facility] [address] [id number] [place] [address]- 3200 Aug, [facility] [address] [id number] [place] [address]- 9398 Aug, [facility] [place] [facility] [address] [facility] [id number] [place] [address]- 3500 Aug, [facility] [address] [facility] [id number] [place] [address]- 3459 Aug, [facility] [address] [id number] [place] [address]- 6171 Aug, [facility] [place] [facility] [address] [facility] [id number] [place] [address]- 4050 Aug, [facility] [address] [facility] [id number] [place] [address]- 3663 Aug, [facility] [place] [facility] [address] [id number] [place] [address]- 1996 Aug, [facility] [place] [facility] [address] [facility] [id number] [place] [address] 2544 Aug, [facility] [place] [facility] [address] [id number] [place] [address]- 0112 10 Aug, 2012 [facility] [place] [facility] [address] [facility] [id number] [place] [address] 2546 08 Aug, 2012 [facility] [place] [facility] [address] [facility] [id number] [place] [address]- 5473 Aug, [facility] [address] [id number], [place] [address]- 2065 Aug, [facility] [id number], [place] [address]- 7988 Jul, [facility] [address] [id number], [place] [address]- 9225 Jul, [facility] [id number], [place] [address]- 6766 Jul, [facility] [id number], [place] [address]- 4388 Jul, [facility] [id number], [place] [address]- 7986 Jun, [facility] [id number], [place] [address]- 2987 Jun, [facility] [id number], [place] [address]- 2217 Jun, [facility] [id number], [place] [address]- 7141 Jun, [facility] [id number], [place] [address]- 4055 May, [facility] [address] [id number], [place] [address]- 9927 May, IMMUNIZATIONS No Known Immunizations SOCIAL HISTORY Never Assessed REASON FOR VISIT [place] [address] PLAN OF CARE VITAL SIGNS MEDICATIONS Unknown [...]
--- OUTSIDE RECORDS SUMMARY | 2018-09-02 18:02 | XMS REPORT ---
Author Author AMARI HOWARD [facility], [place] Address [address] [place] [address] Care Team Providers Care Scene Shifter Name Role Phone AMARI HOWARD Unavailable PROBLEMS Type Condition ICD9-CM Code CQW66-EB Code Onset Dates Condition Status SNOMED Code Problem Panic disorder with agoraphobia F40.01 Active 88933131 Problem Depressive disorder, not elsewhere classified F32.9 Active 45253452 Problem Chronic posttraumatic stress disorder F43.12 Active 690677682 Problem Insomnia G47.00 Active 626806799 Problem Obesity E66.9 Active 703948604 Problem Other chronic pain G89.29 Active 64763134 Problem Fatty liver K76.0 Active 074997153 Problem Abuse, drug or alcohol F19.10 Active 25162284 Problem Panic disorder without agoraphobia F41.0 Active 50130453 Problem Panic disorder F41.0 Active 261131212 Problem Hypothyroid E03.9 Active 89319847 Problem BMI 50.0-59.9, adult Z68.43 Active 319545691 Problem Restless legs syndrome G25.81 Active 370140859 Problem Encounter for therapeutic drug level monitoring Z51.81 Active 712165744 Problem Neuropathy G62.9 Active 310048861 Problem 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 Active 96274808 Problem Tachycardia R00.0 Active 1923681 Problem Murmur R01.1 Active 399395156 Problem Orthostatic hypertension I10 Active 79656683 Problem Shortness of breath R06.02 Active 230108790 Problem Sleep apnea in adult G47.33 Active 61223898 Problem Tunnel vision, unspecified laterality H53.489 Active 095393771 Problem Undifferentiated schizophrenia F20.3 Active 405801784 ALLERGIES No Information ENCOUNTERS Encounter Location Date Diagnosis [facility], [place] [address] [facility] [id number] [address] 18 Apr, 2018 [facility], [place] [address], [place] [address] Jan, [facility], [place] [address], [place] [address] 1619 Jan, Undifferentiated schizophrenia F20.3 [facility], [place] [address], [place] [address] 10[address] Jan, [facility], [place] [id number] [place] [address] 30732- 3361 Jan, Undifferentiated schizophrenia F20.3 [facility], [place] [id number] [place] [address] 48117- 5591 Dec, [facility], [place] [id number] [place] [address] 26550- 1690 Dec, [facility] [place] [id number] [place] [address] 33643- 3127 Dec, [facility], [place] [id number] [place] [address] 85917- 8070 Dec, Undifferentiated schizophrenia F20.3 ; Panic disorder with agoraphobia F40.01 ; Chronic posttraumatic stress disorder F43.12 and BMI 50.0- 59.9, adult Z68.43 [facility], [place] [address], [place] [address] 9632 Dec, [facility], [place] [address] [address] 8524 Dec, Undifferentiated schizophrenia F20.3 ; Insomnia G47.00 and Thyroid disorder E07.9 [facility], [place] [address] [address] 0989 Dec, Undifferentiated schizophrenia F20.3 [facility], [place] [address] [address] 2712 Dec, [facility] [place] [address], [place] [address] 6252 Dec, [facility] [place] [id number] [place] [address] 85831- 0971 Dec, BMI 50.0-59.9, adult Z68.43 ; Undifferentiated schizophrenia F20.3 ; Panic disorder without agoraphobia F41.0 and Chronic posttraumatic stress disorder F43.12 [facility], [place] [id number] [place] [address] 04513- 2341 Dec, [facility] [place] [id number] [place] [address] 79142- 5459 October, [facility] [place] [id number] [place] [address] 05239- 6396 October, Pain in right shoulder M25.511 and Other chronic pain G89.29 [facility], [place] [id number] [place] [address] 29002- 7364 October, Hypothyroid E03.9 [facility] [place] [id number] [place] [address] 10964- 5736 Oct, Undifferentiated schizophrenia F20.3 [facility] [place] [id number] [place] [address] 00344- 8119 Oct, [facility] [place] [id number] [place] [address] 18626- 6344 Oct, [facility] [place] [id number] [place] [address] 21464- 2906 Aug, Undifferentiated schizophrenia F20.3 [facility] [place] [id number] [place] [address] 22458- 4657 Aug, [facility] [place] [id number] [place] [address] 67265- 1689 Aug, Undifferentiated schizophrenia F20.3 ; Panic disorder with agoraphobia F40.01 ; Chronic posttraumatic stress disorder F43.12 and BMI 50.0- 59.9, adult Z68.43 [facility] [place] [id number] [place] [address] 17868- 1809 05 Aug, 2017 [facility], [place] [address] [place] [address]- 1777 Aug, [facility] [place] [id number] [place] [address] 39862- 7419 Aug, Undifferentiated schizophrenia F20.3 [facility] [place] [address], [place] [address]- 7545 Aug, Hypothyroid E03.9 [facility] [place] [id number] [place] [address] 76028- 2845 Jul, Undifferentiated schizophrenia F20.3 [facility] [place] [id number] [place] [address] 34981- 6023 Jul, [facility] [place] [id number] [place] [address] 98291- 6768 Jul, Undifferentiated schizophrenia F20.3 ; Chronic posttraumatic stress disorder F43.12 ; 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 and BMI 50.0-59.9, adult Z68.43 [facility] [place] [id number] [place] [address] 95501- 1165 Jul, [facility] [place] [id number] [place] [address] 20819- 7911 Jul, Acute pain of right shoulder M25.511 ; High risk medication use Z79.899 ; Needle stick injury W27.3XXA ; Hypothyroid E03.9 and BMI 50.0-59.9 , adult Z68.43 [facility], [place] [address] [address] 5888 Jun, Undifferentiated schizophrenia F20.3 [facility], [place] [address], [place] [address]- 7068 Jun, Undifferentiated schizophrenia F20.3 ; Panic disorder without agoraphobia F41.0 ; Chronic posttraumatic stress disorder F43.12 and BMI 50.0-59.9, adult Z68.43 [facility] [place] [id number] [place] [address] 05041- 9496 May, [facility] [place] [id number] [place] [address] 48938- 1539 May, [facility] [place] [id number] [place] [address] 50218- 0263 May, Undifferentiated schizophrenia F20.3 [facility] [place] [id number] [place] [address] 88040- 6354 May, [facility] [place] [id number] [place] [address] 51236- 4633 May, [facility] [place] [id number] [place] [address] 12922- 3372 May, Hypothyroid E03.9 [facility] [place] [id number] [place] [address] 38357- 1811 May, [facility] [place] [id number] [place] [address] 24418- 7235 May, [facility], [place] [id number] [place] [address] 36613- 7236 07 May, 2017 Chronic posttraumatic stress disorder F43.12 ; 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 ; Undifferentiated schizophrenia F20.3 ; BMI 40.0-44.9, adult Z68.41 and Obesity E66.9 [facility], [place] [id number] [place] [address] 94884- 9430 07 May, 2017 Shortness of breath R06.02 [facility], [place] [id number] [place] [address] 95906- 8341 May, [facility] [place] [id number] [place] [address] 96955- 4188 Apr, Undifferentiated schizophrenia F20.3 [facility], [place] [id number] [place] [address] 31676- 0685 Apr, [facility], [place] [id number] [place] [address] 75804- 2188 Apr, [facility], [place] [id number] [address]- 9421 Mar, Undifferentiated schizophrenia F20.3 ; Panic disorder without agoraphobia F41.0 and Chronic posttraumatic stress disorder F43.12 [facility], [place] [address], [place] [address]- 8307 Mar, Undifferentiated schizophrenia F20.3 [facility], [place] [id number] [place] [address] 91747- 7836 Mar, [facility] [place] [id number] [place] [address] 25723- 8433 Mar, [facility], [place] [id number] [place] [address] 61833- 2045 Mar, [facility], [place] [id number] [place] [address] 04491- 6184 Jan, Undifferentiated schizophrenia F20.3 [facility], [place] [id number] [place] [address] 87943- 6101 Jan, [facility], [place] [id number] [place] [address] 42990- 0470 Jan, [facility], [place] [id number] [place] [address] 96177- 4331 Jan, [address] [id number] [address] Dec, Needle stick injury W27.3XXA [facility], [place] [id number] [place] [address] 08310- 3578 Dec, Needle stick injury W27.3XXA [facility], [place] [id number] [place] [address] 48906- 0560 Dec, Undifferentiated schizophrenia F20.3 [facility], [place] [id number] [place] [address] 87843- 4521 Dec, [facility], [place] [id number] [place] [address] 99078- 2819 Dec, [facility], [place] [address], [place] [address]- 1411 Dec, Undifferentiated schizophrenia F20.3 ; 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 and Chronic posttraumatic stress disorder F43.12 [facility], [place] [address], [place] [address]- 2663 Dec, [facility], [place] [id number] [place] [address] 41823- 1689 October, [facility], [place] [id number] [place] [address] 92907- 3413 October, Undifferentiated schizophrenia F20.3 [facility] [place] [id number] [place] [address] 40785- 3176 October, [facility], [place] [address], [place] [address]- 7953 October, [facility], [place] [id number] [place] [address] 95022- 6348 Oct, Undifferentiated schizophrenia F20.3 ; 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 ; Chronic posttraumatic stress disorder F43.12 and Obesity E66.9 [facility], [place] [id number] [address]- 9367 Oct, [facility], [place] [address], [place] [address]- 3758 Oct, [facility], [place] [id number] [place] [address] 40110- 5550 Aug, Undifferentiated schizophrenia F20.3 [facility], [place] [address], [place] [address]- 4206 Aug, [facility], [place] [id number] [place] [address] 94691- 1102 Aug, Muscle spasm M62.838 [facility], [place] [id number] [address]- 7022 Aug, Undifferentiated schizophrenia F20.3 [facility], [place] [address], [place] [address]- 2365 Aug, Undifferentiated schizophrenia F20.3 ; 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 ; Chronic posttraumatic stress disorder F43.12 ; High risk medication use Z79.899 and 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 [facility], [place] [address], [place] [address]- 0756 Aug, Undifferentiated schizophrenia F20.3 [facility], [place] [id number] [place] [address] 35860- 0673 Aug, [facility], [place] [id number] [place] [address] 52899- 0711 Aug, Acute non-recurrent maxillary sinusitis J01.00 [facility], [place] [id number] [place] [address] 48760- 8290 Aug, [facility] [place] [id number] [place] [address] 95196- 1817 Aug, [facility], [place] [id number] [place] [address] 33316- 1865 Jul, Undifferentiated schizophrenia F20.3 [facility], [place] [id number] [place] [address] 66796- 5426 Jul, Schizophrenia, undifferentiated F20.3 ; 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 ; Post-traumatic stress disorder F43.10 ; Panic disorder F41.0 and Depressive disorder, not elsewhere classified F32.9 [facility], [place] [address], [place] [address]- 8961 Jul, [facility], [place] [id number] [place] [address] 75347- 2966 Jul, Schizophrenia, undifferentiated F20.3 ; 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 ; Post-traumatic stress disorder F43.10 ; Panic disorder F41.0 and Depressive disorder, not elsewhere classified F32.9 [facility], [place] [id number] [place] [address] 66485- 1082 Jul, [facility], [place] [id number] [place] [address] 53997- 9574 Jul, Undifferentiated schizophrenia F20.3 ; 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 ; 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 ; Obesity E66.9 and Chronic posttraumatic stress disorder F43.12 [facility], [place] [id number] [place] [address] 15686- 6930 Jun, [facility], [place] [id number] [place] [address] 68863- 2135 Jun, [facility], [place] [id number] [place] [address] 84127- 3120 Jun, Dental caries K02.9 [facility], [place] [id number] [place] [address] 64098- 7507 Jun, Undifferentiated schizophrenia F20.3 [facility], [place] [id number] [place] [address] 85512- 1115 May, [facility], [place] [id number] [place] [address] 70038- 0558 May, Undifferentiated schizophrenia F20.3 ; Panic disorder with agoraphobia F40.01 and Chronic post-traumatic stress disorder (PTSD) F43.12 [facility], [place] [id number] [place] [address] 72647- 7485 May, [facility], [place] [id number] [place] [address] 10540- 5164 May, Undifferentiated schizophrenia F20.3 [facility] [place] [id number] [place] [address] 11324- 9108 May, [facility] [place] [id number] [place] [address] 71508- 4189 07 May, 2016 Dental examination Z01.20 [facility], [place] [id number] [place] [address] 27264- 1276 Apr, Undifferentiated schizophrenia F20.3 ; PTSD (post-traumatic stress disorder) F43.10 and Obesity E66.9 [place] [id number] [place] [address] 42658- 7962 Apr, [place] [address] 087748- 6485 Mar, [place] [address] 07116- 5129 Mar, [place] [address] 22696- 1075 Jan, Shortness of breath R06.02 and Bipolar disorder with psychotic features F31.9 [place] [address] 11648- 0100 Jan, [place] [address] 86621- 7198 Jan, Increased intracranial pressure G93.2 ; Visual disturbance H53.9 and Bipolar II disorder F31.81 [place] [id number] [place] [address] 81120- 4301 Jan, [place] [address] 60287- 6128 Jan, [place] [id number] [place] [address] 76618- 9426 Jan, [place] [id number] [place] [address] 64866- 6078 Jan, Acquired hypothyroidism E03.9 ; Depression F32.9 and Insomnia G47.00 [place] [id number] [place] [address] 79225- 0930 Jan, Exertional dyspnea R06.09 ; Heart palpitations R00.2 ; Hyperlipidemia, unspecified hyperlipidemia type E78.5 ; Hypothyroidism, unspecified type E03.9 and Hypokalemia E87.6 [place] [address] 66198- 9065 Dec, PTSD (post-traumatic stress disorder) F43.10 ; Depression F32.9 ; Insomnia G47.00 and Bipolar disorder with psychotic features F31.9 [place] [id number] [place] [address] 68388- 8273 Dec, Increased intracranial pressure G93.2 [place] [id number] [place] [address] 72586- 4636 Dec, [place] [address] 89324- 6920 Dec, Shortness of breath R06.[address] 76803- 0309 Dec, Visual disturbance H53.9 and Headache, unspecified headache type R51 [place] [id number] [place] [address] 53660- 1333 Dec, Insomnia G47.00 [place] [id number] [place] [address] 01182- 3943 Dec, Murmur R01.[address] 85161- 7167 Dec, Murmur R01.1 ; Tunnel vision, unspecified laterality H53.489 ; Orthostatic hypertension I10 ; Shortness of breath R06.02 and Tachycardia R00.0 [place] [id number] [place] [address] 70811- 1494 Dec, [place] [id number] [place] [address] 71881- 7579 Dec, Hypothyroid E03.9 and Bipolar 1 disorder F31.9 [place] [id number] [place] [address] 86140- 6329 15 Dec, 2015 Bipolar 1 disorder F31.9 [place] [id number] [place] [address] 98041- 1293 08 Dec, 2015 [place] [id number] [place] [address] 39051- 4538 October, Acquired hypothyroidism E03.9 ; Depression F32.9 and Insomnia G47.00 [facility] [place] [id number] [place] [address] 25290- 4128 October, [facility] [place] [id number] [place] [address] 58574- 7183 October, Bipolar 1 disorder F31.9 ; PTSD (post-traumatic stress disorder) F43.10 and 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 [facility] [place] [id number] [place] [address] 12573- 1771 Oct, Bipolar 1 disorder F31.9 and Insomnia G47.00 [facility] [place] [id number] [place] [address] 73892- 5163 Oct, [place] [id number] [place] [address] 31345- 7699 Oct, [facility] [place] [id number] [place] [address] 64851- 6500 Aug, Hypothyroid E03.9 [facility], [place] [id number] [place] [address] 12553- 9098 Aug, Encounter for therapeutic drug level monitoring Z51.81 and Other [facility] drug therapy Z79.899 [place] [id number] [place] [address] 92567- 5657 Aug, Encounter for therapeutic drug level monitoring Z51.81 [facility] [place] [id number] [place] [address] 09721- 2430 Aug, Acquired hypothyroidism E03.9 ; Leg pain M79.606 and Bipolar 1 disorder F31.9 [facility] [place] [id number] [place] [address] 55986- 3221 Aug, [facility] [place] [id number] [place] [address] 17332- 7953 Aug, [place] [id number] [place] [address] 12143- 9053 Jul, Thyroid disorder E07.9 [facility] [place] [id number] [place] [address] 97325- 2281 Jul, Rash R21 ; Abnormal LFTs R94.5 ; Acquired hypothyroidism E03.9 ; Sleep apnea in adult G47.33 and Fatty liver K76.0 [facility] [place] [address] 42908- 9922 Jun, [facility] [place] [id number] [place] [address] 97400- 6077 Jun, [facility] [place] [address] 64280- 4858 Jun, Bipolar II disorder F31.81 and Social phobia, generalized F40.11 [facility] [place] [address] [place] [address] 34841- 8978 Mar, Bipolar II disorder 296.89 and Social phobia 300.23 [facility] [place] [id number] [place] [address] 39218- 5759 Dec, [facility] [place] [address] [place] [id number] [place] [id number]- 8448 Dec, [facility] [place] [address] [place], [place] [id number] [place] [address] [id number] 8872 Dec, Bipolar II disorder in partial or unspecified remission 296.89 and Social phobia, generalized 300.23 [facility] [place] [id number] [place] [address] [id number]- 3629 Oct, 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 [facility] [place] [address] [address]- [address] 14 Oct, 2014 [facility] [place] [id number] [place] [address] 41367- 1174 13 Oct, 2014 [facility] [place] [address] [address]- [address] Aug, [facility] [place] [facility] [address] [id number] [place] [address] Aug, [facility] [place] [facility] [address] [id number] [place] [address] Aug, [facility] [place] [facility] [address] [id number] [place] [address] 9049 Aug, [facility] [place] [facility] [address] [id number] [place] [address] 0167 Aug, [facility] [place] [facility] [address] [id number] [place] [address]- 2692 Aug, [facility] [place] [facility] [address] [id number] [place] [address]- 98[address] Aug, [facility] [place] [facility] [address] [id number] [place] [address] 6204 Aug, [facility] [place] [facility] [address] [id number] [place] [address]- [address] Jul, [facility] [place] [facility] [address] [id number] [place] [address]- [address] Jul, [facility] [place] [facility] [address] [id number] [place] [address]- [address]39 Jul, [facility] [place] [facility] [address] [id number] [place] [address]- [address] Jul, [facility] [place] [facility] [address] [id number] [place] [address]- 0254 Jul, [facility] [place] [facility] [address] [id number] [place] [address]- 8111 Jul, [facility] [place] [facility] [address] [id number] [place] [address] Jun, [facility] [place] [facility] [address] [id number] [place] [address] Jun, [facility] [place] [facility] [address] [id number] [place] [address] 68[address] Jun, [facility] [place] [facility] [address] [id number] [place] [address] 480[address] Jun, [facility] [place] [facility] [address] [id number] [place] [address] 28[address] Jun, [facility] [place] [facility] [address] [id number] [place] [address] Jun, [facility] [place] [facility] [address] [id number] [place] [address] 45[address] Jun, [facility] [place] [facility] [address] [id number] [place] [address] 15[address] Jun, [facility] [place] [facility] [address] [id number] [place] [address]65 Jun, [facility] [place] [facility] [address] [id number] [place] [address] Jun, [facility] [place] [facility] [address] [id number] [place] [address] 57[address] Jun, [facility] [place] [facility] [address] [id number] [place] [address] 1993 Jun, [facility] [place] [facility] [address] [id number] [place] [address]- 4774 Jun, [facility] [place] [facility] [address] [id number] [place] [address]- 1143 Jun, [facility] [place] [facility] [address] [id number] [place] [address] 59[address] Jun, [facility] [place] [facility] [address] [id number] [place] [address]- 2371 Jun, [facility] [place] [facility] [address] [id number] [place] [address] 9172 May, [facility] [place] [facility] [address] [id number] [place] [address] 1989 May, [facility] [place] [facility] [address] [id number] [place] [address]- 4973 May, [facility] [place] [facility] [address] [id number] [place] [address]- 5875 May, [facility] [place] [facility] [address] [id number] [place] [address]- 9706 May, [facility] [place] [facility] [address] [id number] [place] [address]- 1351 May, [facility] [place] [facility] [address] [id number] [place] [address]- 0046 Apr, [facility] [place] [facility] [address] [id number] [place] [address]- 8302 Apr, [facility] [place] [facility] [address] [id number] [place] [address]- 1639 Apr, [facility] [place] [facility] [address] [id number], [place] [address] 12[address] Apr, [facility] [place] [facility] [address] [id number] [place] [address]- 0490 Apr, [facility] [place] [facility] [address] [id number][place] [address] Apr, [facility] [place] [facility] [address] [id number], [place] [address] 39[address] Mar, [facility] [place] [facility] [address] [id number], [place] [address] Mar, [facility] [place] [facility] [address] [id number] [place] [address]- 6291 Mar, [facility] [place] [facility] [address] [id number][place] [address] Mar, [facility] [place] [facility] [address] [id number] [place] [address]- 8128 Jan, [facility] [place] [facility] [address] [id number] [place] [address]- 8248 Jan, [facility] [place] [facility] [address] [id number] [place] [address]- 1120 Jan, [facility] [place] [facility] [address] [id number] [place] [address]- 9050 Jan, [facility] [place] [facility] [address] [id number] [place] [address]- 7120 Jan, [facility] [place] [facility] [address] [id number] [place] [address]- 1322 Jan, [facility] [place] [facility] [address] [id number] [place] [address]- 9613 Dec, [facility] [place] [facility] [address] [id number] [place] [address]- 2529 Dec, [facility] [place] [facility] [address] [id number] [place] [address]- 7525 Dec, [facility] [place] [facility] [address] [id number] [place] [address]- 7854 Dec, [facility] [place] [facility] [address] [id number] [place] [address]- 6543 Dec, [facility] [place] [facility] [address] [id number] [place] [address]- 8340 Dec, [facility] [place] [facility] [address] [id number] [place] [address]- 2022 October, [facility] [place] [facility] [address] [id number] [place] [address]- 5865 October, [facility] [place] [facility] [address] [id number] [place] [address]- 3975 October, [facility] [place] [facility] [address] [id number] [place] [address]- 7595 October, [facility] [place] [facility] [address] [id number] [place] [address]- 9916 October, [facility] [place] [facility] [address] [id number] [place] [address]- 9804 October, [facility] [place] [facility] [address] [id number] [place] [address]- 3477 October, [facility] [place] [facility] [address] [id number] [place] [address] October, [facility] [place] [facility] [address] [id number] [place] [address]- 0022 Oct, [facility] [place] [facility] [address] [id number] [place] [address]- 7818 Oct, [facility] [place] [facility] [address] [id number] [place] [address]- 3151 Oct, [facility] [place] [facility] [address] [id number] [place] [address]- 3265 Oct, [facility] [place] [facility] [address] [id number] [place] [address]- 2496 Oct, [facility] [place] [facility] [address] [id number] [place] [address]- 5777 Aug, [facility] [place] [facility] [address] [id number] [place] [address]- 1832 Aug, [facility] [place] [facility] [address] [id number] [place] [address]- 3233 Aug, [facility] [place] [facility] [address] [id number] [place] [address]- 7399 Aug, [facility] [place] [facility] [address] [id number] [place] [address]- 4043 Aug, [facility] [place] [facility] [address] [id number] [place] [address]- 8246 Aug, [facility] [place] [facility] [address] [id number] [place] [address] Jul, [facility] [place] [facility] [address] [id number], [place] [address] 9254 Jul, [facility] [address] [id number] [place] [address]- 7148 Jul, [facility] [place] [facility] [address] [id number] [place] [address] Jul, [facility] [place] [facility] [address] [id number] [place] [address]- 2730 Jul, [facility] [place] [facility] [address] [id number] [place] [address]- 5691 Jul, [facility] [place] [facility] [address] [id number] [place] [address]- 5032 Jun, [facility] [place] [facility] [address] [id number] [place] [address]- 2576 Jun, [facility] [place] [facility] [address] [id number] [place] [address]- 6039 Jun, [facility] [place] [facility] [address] [id number] [place] [address]- 5768 Jun, [facility] [place] [facility] [address] [id number] [place] [address]- 4903 Jun, [facility] [place] [facility] [address] [id number] [place] [address]- 0240 Jun, [facility] [place] [facility] [address] [id number], [place] [address]- 9811 May, [facility] [place] [facility] [address] [id number], [place] [address]- 5775 May, [facility] [place] [facility] [address] [id number], [place] [address]- 6085 Apr, [facility] [place] [facility] [address] [id number] [place] [address]- 5584 Apr, [facility] [place] [facility] [address] [id number] [place] [address]- 2562 Apr, [facility] [place] [facility] [address] [id number] [place] [address]- 2533 Apr, 2012 [facility] [place] [facility] [address] [id number] [place] [address]- 0506 Apr, [facility] [place] [facility] [address] [id number] [place] [address]- 8942 Apr, [facility] [place] [facility] [address] [id number] [place] [address]- 4963 Apr, 2012 [facility] [place] [facility] [address] [id number] [place] [address]- 3099 Apr, [facility] [place] [facility] [address] [id number] [place] [address]- 5128 Apr, [facility] [place] [facility] [address] [id number] [place] [address]- 8646 Apr, [facility] [place] [facility] [address] [id number] [place] [address]- 2434 Apr, [facility] [place] [facility] [address] [id number] [place] [address]- 1251 23 Mar, 2012 [facility] [place] [facility] [address] [id number] [place] [address]- 4429 20 Mar, 2012 [facility] [place] [facility] [address] [id number] [place] [address]- 8562 20 Mar, 2012 [facility] [place] [facility] [address] [id number] [place] [address]- 7300 14 Mar, 2012 [facility] [place] [facility] [address] [id number] [place] [address]- 2543 12 Mar, 2012 [facility] [place] [facility] [address] [id number] [place] [address]- 6234 06 Mar, 2012 [facility] [place] [facility] [address] [id number] [place] [address]- 2546 06 Mar, 2012 [facility] [place] [facility] [address] [id number] [place] [address]- 5114 Jan, [facility] [address] [id number] [place] [address]- 6451 Jan, [facility] [place] [facility] [address] [id number] [place] [address]- 6833 Jan, [facility] [place] [facility] [address] [id number] [place] [address]- 9626 Jan, [facility] [place] [facility] [address] [id number] [place] [address]- 1022 Jan, [facility] [place] [facility] [address] [id number] [place] [address]- 0902 Jan, [facility] [place] [facility] [address] [id number] [place] [address]- 8919 Jan, [facility] [place] [facility] [address] [id number] [place] [address]- 6128 Dec, [facility] [place] [facility] [address] [id number] [place] [address]- 5814 Dec, [facility] [place] [facility] [address] [id number] [place] [address]- 1211 Dec, [facility] [place] [facility] [address] [id number] [place] [address]- 2646 Dec, [facility] [place] [facility] [address] [id number] [place] [address]- 7629 Dec, [facility] [place] [facility] [address] [id number] [place] [address]- 0148 Dec, [facility] [place] [facility] [address] [id number] [place] [address]- 1479 October, [facility] [place] [facility] [address] [id number] [place] [address]- 0121 October, [facility] [place] [facility] [address] [id number] [place] [address]- 7987 October, [facility] [place] [facility] [address] [id number] [place] [address]- 4329 10 Oct, 2012 [facility] [address] [id number] [place] [address]- 6725 Oct, [facility] [place] [facility] [address] [facility] [id number] [place] [address]400 Oct, [facility] [address] [facility] [id number] [place] [address]- 6781 27 Aug, 2012 [facility] [place] [facility] [address] [facility] [id number] [place] [address]- 7083 26 Aug, 2012 [facility] [address] [id number] [place] [address]- 2343 Aug, [facility] [place] [facility] [address] [facility] [id number] [place] [address]- 2863 Aug, [facility] [address] [facility] [id number] [place] [address]- 5226 Aug, [facility] [address] [facility] [id number] [place] [address]- 0056 Aug, [facility] [place] [facility] [address] [facility] [id number] [place] [address]- 5277 Aug, [facility] [place] [facility] [address] [facility] [id number] [place] [address]- 7573 Aug, [facility] [place] [facility] [address] [id number] [place] [address]- 7637 Aug, [facility] [place] [facility] [address] [facility] [id number] [place] [address]- 2070 11 Aug, 2012 [facility] [place] [facility] [address] [facility] [id number] [place] [address]- 9557 10 Aug, 2012 [facility] [place] [facility] [address] [facility] [id number] [place] [address]- 9016 08 Aug, 2012 [facility] [place] [facility] [id number] [address] Aug, [facility] [place] [address] [facility] [id number], [place] [address]- 6968 Aug, [facility] [place] [address] [facility] [id number], [place] [address]- 5101 Jul, [facility] [place] [address] [facility] [id number], [place] [address]- 8435 Jul, [facility] [place] [address] [facility] [id number], [place] [address]- 2792 Jul, [facility] [place] [address] [facility] [id number], [place] [address]- 8044 Jul, [facility] [place] [address] [facility] [id number], [place] [address]- 6976 Jun, [facility] [place] [id number], [place] [address]- 3592 Jun, [facility] [place] [id number], [place] [address]- 9756 Jun, [facility] [place] [address] [id number], [place] [address]- 7827 Jun, [facility] [place] [address] [id number], [place] [address]- 7753 May, [facility] [place] [address] [id number], [place] [address]- 3164 May, IMMUNIZATIONS No Known Immunizations SOCIAL HISTORY Never Assessed REASON FOR VISIT Clonazepam PLAN OF CARE VITAL SIGNS MEDICATIONS Unknown [...]
--- OUTSIDE RECORDS SUMMARY | 2018-09-02 18:03 | XMS REPORT ---
Author Author JOSE LARRY [facility] Address [address] [place] [address] Care Team Providers Care Nanotechnologist Name Role Phone JOSE LARRY Unavailable PROBLEMS Type Condition ICD9-CM Code VRQ67-TI Code Onset Dates Condition Status SNOMED Code Problem Panic disorder with agoraphobia F40.01 Active 39497109 Problem Depressive disorder, not elsewhere classified F32.9 Active 39366971 Problem Chronic posttraumatic stress disorder F43.12 Active 106868255 Problem Insomnia G47.00 Active 914566328 Problem Obesity E66.9 Active 616392092 Problem Other chronic pain G89.29 Active 60916173 Problem Fatty liver K76.0 Active 282244411 Problem Abuse, drug or alcohol F19.10 Active 06002133 Problem Panic disorder without agoraphobia F41.0 Active 87676664 Problem Panic disorder F41.0 Active 707523679 Problem Hypothyroid E03.9 Active 30775691 Problem BMI 50.0-59.9, adult Z68.43 Active 025944121 Problem Restless legs syndrome G25.81 Active 474490446 Problem Encounter for therapeutic drug level monitoring Z51.81 Active 747593793 Problem Neuropathy G62.9 Active 002193659 Problem 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 Active 69327782 Problem Tachycardia R00.0 Active 1887692 Problem Murmur R01.1 Active 321024248 Problem Orthostatic hypertension I10 Active 96111789 Problem Shortness of breath R06.02 Active 940665847 Problem Sleep apnea in adult G47.33 Active 75776485 Problem Tunnel vision, unspecified laterality H53.489 Active 690713348 Problem Undifferentiated schizophrenia F20.3 Active [id number] ALLERGIES No Information ENCOUNTERS Encounter Location Date Diagnosis [facility] [address] [facility] [id number] [address] 18 Apr, 2018 [facility] [address], [place] [address] Jan, [facility] [id number] [place] [address] 64528- 8611 Jan, Undifferentiated schizophrenia F20.3 [facility] [address], [place] [address] 0629 Jan, [facility] [id number] [place] [address] 00766- 5620 Jan, Undifferentiated schizophrenia F20.3 [facility] [id number] [place] [address] 42540- 4861 Dec, [facility] [id number] [place] [address] 18020- 9433 Dec, [facility] [id number] [place] [address] 68577- 4741 Dec, [facility] [id number] [place] [address] 81683- 3524 Dec, Undifferentiated schizophrenia F20.3 ; Panic disorder with agoraphobia F40.01 ; Chronic posttraumatic stress disorder F43.12 and BMI 50.0- 59.9, adult Z68.43 [facility] [address], [place] [address] 5987 Dec, [facility] [id number] [place] [address] 44480- 6965 Dec, Undifferentiated schizophrenia F20.3 ; Insomnia G47.00 and Thyroid disorder E07.9 [facility] [address], [place] [address] 7693 Dec, Undifferentiated schizophrenia F20.3 [facility] [address], [place] [address]- 7341 Dec, [facility] [address], [place] [address] 3894 Dec, [facility] [id number] [place] [address] 46706- 3344 14 Dec, 2017 BMI 50.0-59.9, adult Z68.43 ; Undifferentiated schizophrenia F20.3 ; Panic disorder without agoraphobia F41.0 and Chronic posttraumatic stress disorder F43.12 [facility] [id number] [place] [address] 93321- 5021 04 Dec, 2017 [facility] [address] 97089- 5535 October, [facility] [id number] [place] [address] 29031- 9050 October, Pain in right shoulder M25.511 and Other chronic pain G89.29 [facility] [id number] [place] [address] 34781- 5906 October, Hypothyroid E03.9 [facility] [address] 28068- 2321 Oct, Undifferentiated schizophrenia F20.3 [facility] [id number] [place] [address] 71000- 7727 Oct, [facility] [id number] [place] [address] 48674- 1555 Oct, [facility] [id number] [place] [address] 02480- 4618 Aug, Undifferentiated schizophrenia F20.3 [facility] [id number] [place] [address] 81857- 6461 Aug, [facility] [id number] [place] [address] 25624- 0618 Aug, Undifferentiated schizophrenia F20.3 ; Panic disorder with agoraphobia F40.01 ; Chronic posttraumatic stress disorder F43.12 and BMI 50.0- 59.9, adult Z68.43 [facility] [id number] [place] [address] 38824- 8200 05 Aug, 2017 [facility] [id number] [place] [address] 38224- 4082 Aug, [facility] [id number] [place] [address] 46924- 0649 Aug, Undifferentiated schizophrenia F20.3 [facility] [id number] [place] [address] 86863- 6030 Aug, Hypothyroid E03.9 [facility] [id number] [place] [address] 48408- 5869 Jul, Undifferentiated schizophrenia F20.3 [facility] [id number] [place] [address] 92201- 1259 Jul, [facility] [id number] [place] [address] 89790- 4309 Jul, Undifferentiated schizophrenia F20.3 ; Chronic posttraumatic stress disorder F43.12 ; Panic disorder with agoraphobia F40.01 and BMI 50.0-59.9, adult Z68.43 [facility] [id number] [place] [address] 14921- 3625 Jul, [facility] [id number] [place] [address] 99634- 5347 Jul, Acute pain of right shoulder M25.511 ; High risk medication use Z79.899 ; Needle stick injury W27.3XXA ; Hypothyroid E03.9 and BMI 50.0-59.9 , adult Z68.43 [facility] [id number] [place] [address] 69255- 8842 Jun, Undifferentiated schizophrenia F20.3 [facility] [id number] [place] [address] 90089- 0616 14 Jun, 2017 Undifferentiated schizophrenia F20.3 ; Panic disorder without agoraphobia F41.0 ; Chronic posttraumatic stress disorder F43.12 and BMI 50.0-59.9, adult Z68.43 [facility] [id number] [place] [address] 00487- 3161 May, [facility] [address], [place] [address]- 6106 May, [facility] [id number] [place] [address] 69441- 8246 May, Undifferentiated schizophrenia F20.3 [facility] [id number] [place] [address] 98380- 9855 May, [facility] [id number] [place] [address] 24038- 5612 May, [facility] [id number] [place] [address] 47068- 2404 May, Hypothyroid E03.9 [facility] [id number] [place] [address] 44993- 7688 May, [facility] [id number] [place] [address] 66586- 9665 May, [facility] [id number] [place] [address] 10219- 4607 May, Chronic posttraumatic stress disorder F43.12 ; Panic disorder with agoraphobia F40.01 ; Undifferentiated schizophrenia F20.3 ; BMI 40.0-44.9, adult Z68.41 and Obesity E66.9 [facility] [id number] [place] [address] 10704- 9276 May, Shortness of breath R06.02 [facility] [id number] [place] [address] 05772- 5364 May, [facility] [id number] [place] [address] 07939- 3079 Apr, Undifferentiated schizophrenia F20.3 [facility] [id number] [place] [address] 27572- 1590 Apr, [facility] [id number] [place] [address] 16709- 1513 Apr, [facility] [address], [place] [address]- 7128 Mar, Undifferentiated schizophrenia F20.3 ; Panic disorder without agoraphobia F41.0 and Chronic posttraumatic stress disorder F43.12 [facility] [address], [place] [address]- 5252 Mar, Undifferentiated schizophrenia F20.3 [facility] [id number] [place] [address] 51278- 0064 18 Mar, 2017 [facility] [id number] [place] [address] 02934- 8344 08 Mar, 2017 [facility] [id number] [place] [address] 01851- 1283 Mar, [facility] [id number] [place] [address] 84596- 6069 Jan, Undifferentiated schizophrenia F20.3 [facility] [id number] [place] [address] 78802- 8744 Jan, [facility] [id number] [place] [address] 62067- 0452 Jan, [facility] [id number] [place] [address] 43407- 2656 Jan, [address] [id number] [address] Dec, Needle stick injury W27.3XXA [facility] [address], [place] [address]- 5581 Dec, Needle stick injury W27.3XXA [facility] [id number] [place] [address] 76462- 5857 Dec, Undifferentiated schizophrenia F20.3 [facility] [address], [place] [address]- 7034 Dec, [facility] [id number] [place] [address] 74289- 8470 Dec, [facility] [address], [place] [address]- 8512 Dec, Undifferentiated schizophrenia F20.3 ; Panic disorder with agoraphobia F40.01 and Chronic posttraumatic stress disorder F43.12 [facility] [address], [place] [address]- 8320 Dec, [facility] [id number] [place] [address] 55535- 9127 October, [facility] [id number] [place] [address] 71510- 6581 October, Undifferentiated schizophrenia F20.3 [facility] [id number] [place] [address] 67113- 3293 October, [facility] [address] [address]- 6321 October, [facility] [id number] [place] [address] 14576- 7468 Oct, Undifferentiated schizophrenia F20.3 ; Panic disorder with agoraphobia F40.01 ; Chronic posttraumatic stress disorder F43.12 and Obesity E66.9 [facility] [address], [place] [address]- 7148 Oct, [facility] [address], [place] [address]- 4888 Oct, [facility] [address], [place] [address]- 2884 Aug, Undifferentiated schizophrenia F20.3 [facility] [address], [place] [address]- 6987 Aug, [facility] [address] [address]- 9611 Aug, Muscle spasm M62.838 [facility] [address], [place] [address]- 9627 Aug, Undifferentiated schizophrenia F20.3 [facility] [address], [place] [address]- 0800 Aug, Undifferentiated schizophrenia F20.3 ; Panic disorder with agoraphobia F40.01 ; Chronic posttraumatic stress disorder F43.12 ; High risk medication use Z79.899 and 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 [facility] [address], [place] [address]- 7895 Aug, Undifferentiated schizophrenia F20.3 [facility] [id number] [place] [address] 15445- 2027 Aug, [facility] [id number] [place] [address] 96849- 3297 Aug, Acute non-recurrent maxillary sinusitis J01.00 [facility] [id number] [place] [address] 06663- 3310 Aug, [facility] [id number] [place] [address] 91305- 0267 Aug, [facility] [id number] [place] [address] 04090- 5137 Jul, Undifferentiated schizophrenia F20.3 [facility] [id number] [place] [address] 17952- 7378 Jul, Schizophrenia, undifferentiated F20.3 ; 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 ; Post-traumatic stress disorder F43.10 ; Panic disorder F41.0 and Depressive disorder, not elsewhere classified F32.9 [facility] [address], [place] [address]- 4226 Jul, [facility] [id number] [place] [address] 49394- 3973 Jul, Schizophrenia, undifferentiated F20.3 ; 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 ; Post-traumatic stress disorder F43.10 ; Panic disorder F41.0 and Depressive disorder, not elsewhere classified F32.9 [facility] [id number] [place] [address] 41620- 1871 Jul, [facility] [id number] [place] [address] 47127- 4303 Jul, Undifferentiated schizophrenia F20.3 ; Panic disorder with agoraphobia F40.01 ; 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 ; Obesity E66.9 and Chronic posttraumatic stress disorder F43.12 [facility] [id number] [place] [address] 54530- 2422 Jun, [facility] [id number] [place] [address] 62889- 5427 Jun, [facility] [id number] [place] [address] 15771- 6824 Jun, Dental caries K02.9 [facility] [id number] [place] [address] 74105- 6450 Jun, Undifferentiated schizophrenia F20.3 [facility] [id number] [place] [address] 43658- 2005 May, [facility] [id number] [place] [address] 96776- 5517 May, Undifferentiated schizophrenia F20.3 ; Panic disorder with agoraphobia F40.01 and Chronic post-traumatic stress disorder (PTSD) F43.12 [facility] [id number] [place] [address] 40790- 8307 May, [facility] [id number] [place] [address] 44411- 5669 May, Undifferentiated schizophrenia F20.3 [facility] [id number] [place] [address] 15943- 6328 May, [facility] [id number] [place] [address] 69915- 4912 07 May, 2016 Dental examination Z01.20 [facility] [id number] [place] [address] 61762- 2076 Apr, Undifferentiated schizophrenia F20.3 ; PTSD (post-traumatic stress disorder) F43.10 and Obesity E66.9 [facility] [id number] [place] [address] 26641- 6869 Apr, [facility] [id number] [place] [address] 55680- 4792 Mar, [facility] [address] 98846- 8307 Mar, [facility] [id number] [place] [address] 50678- 2305 Jan, Shortness of breath R06.02 and Bipolar disorder with psychotic features F31.9 [facility] [address] 13030- 9964 Jan, [facility] [address] 50285- 4828 Jan, Increased intracranial pressure G93.2 ; Visual disturbance H53.9 and Bipolar II disorder F31.81 [facility] [id number] [place] [address] 07784- 8179 Jan, [facility] [id number] [place] [address] 23616- 4165 Jan, [facility] [id number] [place] [address] 84319- 2412 Jan, [facility] [id number] [place] [address] 55426- 6551 Jan, Acquired hypothyroidism E03.9 ; Depression F32.9 and Insomnia G47.00 [facility] [id number] [place] [address] 03280- 5106 Jan, Exertional dyspnea R06.09 ; Heart palpitations R00.2 ; Hyperlipidemia, unspecified hyperlipidemia type E78.5 ; Hypothyroidism, unspecified type E03.9 and Hypokalemia E87.6 [facility] [id number] [place] [address] 56833- 1785 Dec, PTSD (post-traumatic stress disorder) F43.10 ; Depression F32.9 ; Insomnia G47.00 and Bipolar disorder with psychotic features F31.[address] 26069- 3647 Dec, Increased intracranial pressure G93.[address] 52303- 3485 Dec, [address] 30141- 6824 Dec, Shortness of breath R06.[address] 17104- 1639 Dec, Visual disturbance H53.9 and Headache, unspecified headache type R51 [address] 45991- 4949 Dec, Insomnia G47.[address] 54400- 6971 Dec, Murmur R01.[address] 41070- 3768 Dec, Murmur R01.1 ; Tunnel vision, unspecified laterality H53.489 ; Orthostatic hypertension I10 ; Shortness of breath R06.02 and Tachycardia R00.[address] 44581- 8101 Dec, [address] 07240- 1457 Dec, Hypothyroid E03.9 and Bipolar [address] disorder F31.[address] 50856- 2682 15 Dec, 2015 Bipolar 1 disorder F31.[address] 58306- 5810 08 Dec, [address] [id number] [address]- 5765 October, Acquired hypothyroidism E03.9 ; Depression F32.9 and Insomnia G47.00 [facility] [id number] [place] [address] 58936- 3510 October, [facility] [id number] [place] [address] 75620- 0352 October, Bipolar 1 disorder F31.9 ; PTSD (post-traumatic stress disorder) F43.10 and 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 [facility] [id number] [place] [address] 77677- 1507 Oct, Bipolar 1 disorder F31.9 and Insomnia G47.00 [facility] [id number] [place] [address] 50082- 0104 Oct, [facility] [id number] [place] [address] 14416- 5922 Oct, [facility] [id number] [place] [address] 70643- 7840 Aug, Hypothyroid E03.9 [facility] [id number] [place] [address] 02092- 8729 Aug, Encounter for therapeutic drug level monitoring Z51.81 and Other ocean transportation intermediary (current) drug therapy Z79.899 [facility] [id number] [place] [address] 01691- 3662 Aug, Encounter for therapeutic drug level monitoring Z51.81 [facility] [id number] [place] [address] 29771- 3415 Aug, Acquired hypothyroidism E03.9 ; Leg pain M79.606 and Bipolar 1 disorder F31.9 [facility] [address] [place] [address] 43013- 0426 Aug, [facility] [id number] [place] [address] 21372- 2522 Aug, [facility] [id number] [place] [address] 75128- 8011 Jul, Thyroid disorder E07.9 [facility] [address] 23205- 4899 Jul, Rash R21 ; Abnormal LFTs R94.5 ; Acquired hypothyroidism E03.9 ; Sleep apnea in adult G47.33 and Fatty liver K76.0 [facility] [address] 34651- 5722 Jun, [facility] [address] 85373- 0757 Jun, [facility] [address] 16310- 3356 Jun, Bipolar II disorder F31.81 and Social phobia, generalized F40.11 [facility] [address] [place] [address] 11594- 7943 Mar, Bipolar II disorder 296.89 and Social phobia 300.23 [facility] [id number] [place] [address] 19248- 8034 Dec, [facility] [address] 67231- 4090 Dec, [facility] [id number] [place] [address] 14554- 2249 Dec, Bipolar II disorder in partial or unspecified remission 296.89 and Social phobia, generalized 300.23 [facility] [id number] [place] [address] 50162- 5302 Oct, 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 [facility] [address] 84154- 3539 Oct, [facility] [address] 37218- 9186 Oct, [facility] [address] 04284- 5526 Aug, [facility] [place] [facility] [address] [id number] [place] [address]- 9823 Aug, [facility] [place] [facility] [address] [id number] [place] [address]- 4973 Aug, [facility] [place] [facility] [address] [id number] [place] [address]- 2906 Aug, [facility] [place] [facility] [address] [id number] [place] [address]- 1655 Aug, [facility] [place] [facility] [address] [id number] [place] [address]- 4050 Aug, [facility] [place] [facility] [address] [id number] [place] [address]- 1200 Aug, [facility] [place] [facility] [address] [id number] [place] [address]- 8727 Aug, [facility] [place] [facility] [address] [id number] [place] [address]- 2941 Jul, [facility] [place] [facility] [address] [id number] [place] [address]- 8611 Jul, [facility] [place] [facility] [address] [facility] [id number] [place] [address] Jul, [facility] [place] [facility] [address] [id number] [place] [address] Jul, [facility] [place] [facility] [address] [id number] [place] [address] Jul, [facility] [place] [facility] [address] [id number] [place] [address] Jul, [facility] [place] [facility] [address] [facility] [id number] [place] [address] Jun, [facility] [place] [facility] [address] [facility] [id number] [place] [address] Jun, [facility] [place] [facility] [address] [id number] [place] [address] Jun, [facility] [place] [facility] [address] [id number] [place] [address] Jun, [facility] [place] [facility] [address] [id number] [place] [address] Jun, [facility] [place] [facility] [address] [id number] [place] [address] Jun, [facility] [place] [facility] [address] [id number] [place] [address] Jun, [facility] [place] [facility] [address] [id number] [place] [address] Jun, [facility] [place] [facility] [address] [id number] [place] [address] Jun, [facility] [place] [facility] [address] [id number] [place] [address] Jun, [facility] [place] [facility] [address] [id number] [place] [address] Jun, [facility] [place] [facility] [address] [id number] [place] [address] Jun, [facility] [place] [facility] [address] [id number] [place] [address] Jun, [facility] [place] [facility] [address] [id number] [place] [address] Jun, [facility] [place] [facility] [address] [id number] [place] [address] Jun, [facility] [place] [facility] [address] [id number] [place] [address] Jun, [facility] [place] [facility] [address] [id number] [place] [address] May, [facility] [place] [facility] [address] [id number] [place] [address] May, [facility] [place] [facility] [address] [id number] [place] [address] May, [facility] [place] [facility] [address] [id number] [place] [address] May, [facility] [place] [facility] [address] [id number] [place] [address] May, [facility] [place] [facility] [address] [id number] [place] [address] May, [facility] [place] [facility] [address] [id number] [place] [address] Apr, [facility] [place] [facility] [address] [id number] [place] [address] Apr, [facility] [place] [facility] [address] [id number] [place] [address] Apr, [facility] [place] [facility] [address] [address] [id number] [place] [address] Apr, [facility] [place] [facility] [address] [id number] [place] [address] Apr, [facility] [place] [facility] [address] [id number] [place] [address] Apr, [facility] [place] [facility] [address] [id number], [place] [address] Mar, [facility] [place] [facility] [address] [id number], [place] [address] Mar, [facility] [place] [facility] [address] [id number] [place] [address] Mar, [facility] [place] [facility] [address] [id number] [place] [address] Mar, [facility] [place] [facility] [address] [id number] [place] [address] Jan, [facility] [place] [facility] [address] [id number] [place] [address] Jan, [facility] [address] [id number] [place] [address] Jan, [facility] [place] [facility] [address] [id number] [place] [address] Jan, [facility] [place] [facility] [address] [id number] [place] [address] Jan, [facility] [place] [facility] [address] [id number] [place] [address] 9843 Jan, [facility] [place] [facility] [address] [id number] [place] [address] Dec, [facility] [place] [facility] [address] [id number] [place] [address]574 Dec, [facility] [place] [facility] [address] [id number] [place] [address] Dec, [facility] [place] [facility] [address] [id number] [place] [address] Dec, [facility] [place] [facility] [address] [id number] [place] [address] 67[address] Dec, [facility] [place] [facility] [address] [id number] [place] [address] 1687 Dec, [facility] [place] [facility] [address] [id number] [place] [address]65 October, [facility] [place] [facility] [address] [id number] [place] [address]69 October, [facility] [place] [facility] [address] [id number] [place] [address]108 October, [facility] [place] [facility] [address] [id number] [place] [address] 9449 October, [facility] [place] [facility] [address] [id number] [place] [address] 4567 October, [facility] [place] [facility] [address] [id number] [place] [address] 9239 October, [facility] [place] [facility] [address] [id number] [place] [address] October, [facility] [place] [facility] [address] [id number] [place] [address] October, [facility] [place] [facility] [address] [id number] [place] [address] 8742 Oct, [facility] [place] [facility] [address] [id number] [place] [address] 8717 Oct, [facility] [place] [facility] [address] [id number] [place] [address] 3608 Oct, [facility] [place] [facility] [address] [id number] [place] [address] 0081 Oct, [facility] [place] [facility] [address] [id number] [place] [address] 4812 Oct, [facility] [place] [facility] [address] [id number] [place] [address] 6180 Aug, [facility] [place] [facility] [address] [id number] [place] [address] 5248 Aug, [facility] [place] [facility] [address] [id number] [place] [address] 4972 Aug, [facility] [place] [facility] [address] [id number] [place] [address] 4769 Aug, [facility] [place] [facility] [address] [id number] [place] [address]797 Aug, [facility] [place] [facility] [address] [id number] [place] [address] 1189 Aug, [facility] [place] [facility] [address] [id number] [place] [address] 9001 Jul, [facility] [place] [facility] [address] [id number] [place] [address]- [address] 07 Jul, 2013 [facility] [address] [id number] [place] [address]783 Jul, [facility] [place] [facility] [address] [id number] [place] [address] 4913 Jul, [facility] [place] [facility] [address] [id number] [place] [address] Jul, [facility] [place] [facility] [address] [id number] [place] [address] 8471 Jul, [facility] [place] [facility] [address] [id number] [place] [address]32 Jun, [facility] [place] [facility] [address] [id number] [place] [address]22 Jun, [facility] [place] [facility] [address] [id number] [place] [address]322 Jun, [facility] [place] [facility] [address] [id number] [place] [address] 7797 Jun, [facility] [place] [facility] [address] [id number] [place] [address] 2033 Jun, [facility] [place] [facility] [address] [facility] [id number] [place] [address] 6036 Jun, [facility] [place] [facility] [address] [id number] [place] [address] 8090 May, [facility] [place] [facility] [address] [id number] [place] [address]- 8982 May, [facility] [place] [facility] [address] [id number] [place] [address] 3760 Apr, [facility] [place] [facility] [address] [id number] [place] [address] 1446 Apr, [facility] [place] [facility] [address] [id number] [place] [address] 6613 Apr, [facility] [place] [facility] [address] [id number] [place] [address] 8741 Apr, 2012 [facility] [place] [facility] [address] [id number] [place] [address] 2466 Apr, [facility] [place] [facility] [address] [id number] [place] [address]- 0208 Apr, [facility] [place] [facility] [address] [id number] [place] [address] 0187 Apr, [facility] [place] [facility] [address] [id number] [place] [address] 6237 Apr, [facility] [place] [facility] [address] [id number] [place] [address] 6825 Apr, [facility] [place] [facility] [address] [id number] [place] [address] 1378 Apr, [facility] [place] [facility] [address] [id number] [place] [address]- 5530 Apr, [facility] [place] [facility] [address] [id number] [place] [address]- 4962 23 Mar, 2012 [facility] [place] [facility] [address] [id number] [place] [address]- 2792 20 Mar, 2012 [facility] [place] [facility] [address] [id number] [place] [address]- 3160 20 Mar, 2012 [facility] [place] [facility] [address] [id number] [place] [address]- 0279 14 Sep, 2012 [facility] [place] [facility] [address] [id number] [place] [address]- 1563 12 Sep, 2012 [facility] [place] [facility] [address] [id number] [place] [address]- 2545 06 Sep, 2012 [facility] [place] [facility] [address] [id number] [place] [address]- 2540 06 Sep, 2012 [facility] [place] [facility] [address] [id number] [place] [address]- 7057 Jan, [facility] [place] [facility] [address] [id number] [place] [address] 2279 Jan, [facility] [place] [facility] [address] [id number] [place] [address]- 4982 Jan, [facility] [place] [facility] [address] [id number] [place] [address]- 1625 Jan, [facility] [place] [facility] [address] [id number] [place] [address]- 6312 Jan, [facility] [place] [facility] [address] [id number] [place] [address]- 2933 Jan, [facility] [place] [facility] [address] [id number] [place] [address]- 6245 Jan, [facility] [place] [facility] [address] [id number] [place] [address]- 9585 Dec, [facility] [place] [facility] [address] [id number] [place] [address]- 6529 Dec, [facility] [place] [facility] [address] [id number] [place] [address]- 3283 Dec, [facility] [place] [facility] [address] [id number] [place] [address]- 9469 Dec, [facility] [place] [facility] [address] [id number] [place] [address]- 0921 Dec, [facility] [place] [facility] [address] [id number] [place] [address]- 5039 Dec, [facility] [place] [facility] [address] [id number] [place] [address]- 8721 October, [facility] [place] [facility] [address] [id number] [place] [address]- 0689 October, [facility] [place] [facility] [address] [id number] [place] [address]- 2680 October, [facility] [place] [facility] [address] [id number] [place] [address]- 2774 October, [facility] [address] [id number] [place] [address]- 6070 Oct, [facility] [address] [id number] [place] [address] 2546 Oct, [facility] [address] [id number] [place] [address]- 6914 27 Aug, 2012 [facility] [address] [id number] [place] [address]- 8541 26 Aug, 2012 [facility] [address] [id number] [place] [address]- 2853 21 Aug, 2012 [facility] [address] [id number] [place] [address]- 7692 Aug, [facility] [address] [id number] [place] [address]- 3276 Aug, [facility] [address] [id number] [place] [address]- 0030 Aug, [facility] [address] [id number] [place] [address]- 8593 Aug, [facility] [address] [facility] [id number] [place] [address]- 0909 Aug, [facility] [address] [id number] [place] [address]- 7683 Aug, [facility] [address] [id number] [place] [address] 2549 Aug, [facility] [place] [facility] [address] [id number] [place] [address]- 2507 10 Aug, 2012 [facility] [address] [facility] [id number] [place] [address]- 2546 08 Aug, 2012 [facility] [address] [facility] [id number] [place] [address]- 8499 Aug, [facility] [address] [id number], [place] [address] 8145 Aug, [facility] [id number], [place] [address]- 9676 Jul, [facility] [id number] [address] Jul, [facility] [id number], [place] [address]- 4585 Jul, [facility] [id number], [place] [address]- 9419 Jul, [facility] [id number] [address] Jun, [facility] [id number], [place] [address]- 3755 Jun, [facility] [id number], [place] [address]- 1033 Jun, [facility] [id number], [place] [address]- 4599 Jun, [facility] [id number], [place] [address]- 9112 May, [facility] [address] [id number], [place] [address]169 May, IMMUNIZATIONS No Known Immunizations SOCIAL HISTORY Never Assessed REASON FOR VISIT Repository Med Request/LVM PLAN OF CARE VITAL SIGNS MEDICATIONS Medication Instructions Dosage Frequency Start Date End Date Duration Status Neurontin 800 MG Orally 2 times a day 1 tablet 12h Aug, Active Levothyroxine Sodium 100 MCG Orally Once a day 1 tablet 24h Aug, 90 days Active Rusk Carbonate 300 MG Orally 2 times a day (For Mood) 1 tablet in the morning, 2 tablets at bedtime Active Trazodone HCl 100 mg Orally Once a day 2 tablet at bedtime 24h Active RESULTS No Results PROCEDURES No Known [...]
--- OUTSIDE RECORDS SUMMARY | 2018-09-02 18:04 | XMS REPORT ---
Author Author AMARI HOWARD [facility] Address [address] [place] [address] Care Team Providers Care Nursing Admin Name Role Phone AMARI HOWARD Unavailable PROBLEMS Type Condition ICD9-CM Code AHR67-FP Code Onset Dates Condition Status SNOMED Code Problem Panic disorder with agoraphobia F40.01 Active 35795607 Problem Depressive disorder, not elsewhere classified F32.9 Active 47653451 Problem Chronic posttraumatic stress disorder F43.12 Active 530486462 Problem Insomnia G47.00 Active 637058689 Problem Obesity E66.9 Active 932404354 Problem Other chronic pain G89.29 Active 43081612 Problem Fatty liver K76.0 Active 525896984 Problem Abuse, drug or alcohol F19.10 Active 14633225 Problem Panic disorder without agoraphobia F41.0 Active 72878669 Problem Panic disorder F41.0 Active 073026095 Problem Hypothyroid E03.9 Active 27772769 Problem BMI 50.0-59.9, adult Z68.43 Active 456279878 Problem Restless legs syndrome G25.81 Active 477040192 Problem Encounter for therapeutic drug level monitoring Z51.81 Active 669039297 Problem Neuropathy G62.9 Active 224005009 Problem 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 Active 21473496 Problem Tachycardia R00.0 Active 3019604 Problem Murmur R01.1 Active 753072474 Problem Orthostatic hypertension I10 Active 48169511 Problem Shortness of breath R06.02 Active 605511670 Problem Sleep apnea in adult G47.33 Active 36286714 Problem Tunnel vision, unspecified laterality H53.489 Active 039360926 Problem Undifferentiated schizophrenia F20.3 Active 145841811 ALLERGIES No Known Allergies ENCOUNTERS Encounter Location Date Diagnosis [facility] [id number], [place] [address] 18 Apr, 2018 [facility] [address], [place] [address] Jan, [facility] [id number] [place] [address] 57016- 7836 Jan, Undifferentiated schizophrenia F20.3 [facility] [address], [place] [address] 3089 Jan, [facility] [id number] [place] [address] 47072- 2174 Jan, Undifferentiated schizophrenia F20.3 [facility] [id number] [place] [address] 75875- 2215 Dec, [facility] [id number] [place] [address] 95044- 0805 Dec, [facility] [id number] [place] [address] 00234- 6158 Dec, [facility] [id number] [place] [address] 86660- 4591 Dec, Undifferentiated schizophrenia F20.3 ; Panic disorder with agoraphobia F40.01 ; Chronic posttraumatic stress disorder F43.12 and BMI 50.0- 59.9, adult Z68.43 [facility] [address], [place] [address] 0130 Dec, [facility] [id number] [place] [address] 42493- 4809 Dec, Undifferentiated schizophrenia F20.3 ; Insomnia G47.00 and Thyroid disorder E07.9 [facility] [address] [address] 9789 Dec, Undifferentiated schizophrenia F20.3 [facility] [id number] [place] [address] 21620- 6787 Dec, [facility] [address], [place] [address] 9107 Dec, [facility] [id number] [address] 0765 14 Dec, 2017 BMI 50.0-59.9, adult Z68.43 ; Undifferentiated schizophrenia F20.3 ; Panic disorder without agoraphobia F41.0 and Chronic posttraumatic stress disorder F43.12 [facility] [id number] [place] [address] 87433- 6168 04 Dec, 2017 [facility] [id number] [place] [address] 62883- 4117 October, [facility] [id number] [place] [address] 74147- 4055 October, Pain in right shoulder M25.511 and Other chronic pain G89.29 [facility] [id number] [place] [address] 24452- 4290 October, Hypothyroid E03.9 [facility] [id number] [place] [address] 09719- 9633 Oct, Undifferentiated schizophrenia F20.3 [facility] [id number] [place] [address] 62939- 0594 Oct, [facility] [id number] [place] [address] 84562- 4667 Oct, [facility] [id number] [place] [address] 48977- 6925 Aug, Undifferentiated schizophrenia F20.3 [facility] [id number] [place] [address] 42724- 0939 Aug, [facility] [id number] [place] [address] 92154- 9166 Aug, Undifferentiated schizophrenia F20.3 ; Panic disorder with agoraphobia F40.01 ; Chronic posttraumatic stress disorder F43.12 and BMI 50.0- 59.9, adult Z68.43 [facility] [id number] [place] [address] 14362- 0580 05 Aug, 2017 [facility] [address] [address] 8838 Aug, [facility] [id number] [place] [address] 30501- 9489 Aug, Undifferentiated schizophrenia F20.3 [facility] [address], [place] [address]- 3927 Aug, Hypothyroid E03.9 [facility] [id number] [place] [address] 53289- 2786 Jul, Undifferentiated schizophrenia F20.3 [facility] [id number] [place] [address] 93134- 7535 Jul, [facility] [id number] [place] [address] 91951- 0656 Jul, Undifferentiated schizophrenia F20.3 ; Chronic posttraumatic stress disorder F43.12 ; Panic disorder with agoraphobia F40.01 and BMI 50.0-59.9, adult Z68.43 [facility] [id number] [place] [address] 77850- 7323 15 Jul, 2017 [facility] [id number] [place] [address] 67949- 4931 Jul, Acute pain of right shoulder M25.511 ; High risk medication use Z79.899 ; Needle stick injury W27.3XXA ; Hypothyroid E03.9 and BMI 50.0-59.9 , adult Z68.43 [facility] [address], [place] [address]- 6278 Jun, Undifferentiated schizophrenia F20.3 [facility] [address], [place] [address]- 6451 Jun, Undifferentiated schizophrenia F20.3 ; Panic disorder without agoraphobia F41.0 ; Chronic posttraumatic stress disorder F43.12 and BMI 50.0-59.9, adult Z68.43 [facility] [id number] [place] [address] 71576- 8675 May, [facility] [id number] [place] [address] 49704- 7699 May, [facility] [id number] [place] [address] 51731- 7680 May, Undifferentiated schizophrenia F20.3 [facility] [id number] [place] [address] 94288- 4157 May, [facility] [address] 32649- 8438 May, [facility] [id number] [place] [address] 82190- 8179 May, Hypothyroid E03.9 [facility] [id number] [place] [address] 23144- 3207 13 May, 2017 [facility] [id number] [place] [address] 84719- 1887 May, [facility] [id number] [place] [address] 79014- 6509 07 May, 2017 Chronic posttraumatic stress disorder F43.12 ; Panic disorder with agoraphobia F40.01 ; Undifferentiated schizophrenia F20.3 ; BMI 40.0-44.9, adult Z68.41 and Obesity E66.9 [facility] [id number] [place] [address] 24498- 9422 07 May, 2017 Shortness of breath R06.02 [facility] [id number] [place] [address] 42605- 8933 May, [facility] [id number] [place] [address] 67965- 5977 Apr, Undifferentiated schizophrenia F20.3 [facility] [id number] [place] [address] 52854- 8082 Apr, [facility] [id number] [place] [address] 22492- 8979 Apr, [facility] [address], [place] [address]- 5664 Mar, Undifferentiated schizophrenia F20.3 ; Panic disorder without agoraphobia F41.0 and Chronic posttraumatic stress disorder F43.12 [facility] [address], [place] [address]- 2906 Mar, Undifferentiated schizophrenia F20.3 [facility] [id number] [place] [address] 02220- 7049 18 Mar, 2017 [facility] [id number] [place] [address] 24018- 1595 Mar, [facility] [id number] [place] [address] 01390- 4195 Mar, [facility] [id number] [place] [address] 14020- 2608 Jan, Undifferentiated schizophrenia F20.3 [facility] [id number] [place] [address] 46398- 1143 Jan, [facility] [id number] [place] [address] 90702- 5523 Jan, [facility] [id number] [place] [address] 09972- 1283 Jan, [id number] [id number] Dec, Needle stick injury W27.3XXA [facility] [address], [place] [address]- 6917 Dec, Needle stick injury W27.3XXA [facility] [id number] [place] [address] 20545- 4639 Dec, Undifferentiated schizophrenia F20.3 [facility] [address], [place] [address]- 6165 Dec, [facility] [id number] [place] [address] 42090- 9846 Dec, [facility] [address], [place] [address]- 0719 Dec, Undifferentiated schizophrenia F20.3 ; Panic disorder with agoraphobia F40.01 and Chronic posttraumatic stress disorder F43.12 [facility] [address], [place] [address]- 1727 Dec, [facility] [id number] [place] [address] 10024- 9631 October, [facility] [address], [place] [address]- 5628 October, Undifferentiated schizophrenia F20.3 [facility] [id number] [place] [address] 09863- 1236 October, [facility] [address], [place] [address]- 8259 October, [facility] [id number] [place] [address] 04031- 0973 Oct, Undifferentiated schizophrenia F20.3 ; Panic disorder with agoraphobia F40.01 ; Chronic posttraumatic stress disorder F43.12 and Obesity E66.9 [facility] [address], [place] [address]- 8252 Oct, [facility] [address], [place] [address]- 1701 Oct, [facility] [address], [place] [address]- 0486 Aug, Undifferentiated schizophrenia F20.3 [facility] [address], [place] [address]- 3205 Aug, [facility] [id number], [place] [address]- 5475 Aug, Muscle spasm M62.838 [facility] [id number], [place] [address]- 2725 Aug, Undifferentiated schizophrenia F20.3 [facility] [address], [place] [address]- 6302 Aug, Undifferentiated schizophrenia F20.3 ; Panic disorder with agoraphobia F40.01 ; Chronic posttraumatic stress disorder F43.12 ; High risk medication use Z79.899 and 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 [facility] [address], [place] [address]- 4753 Aug, Undifferentiated schizophrenia F20.3 [facility] [id number] [place] [address] 85828- 3930 Aug, [place] [id number] [place] [address] 64657- 6476 Aug, Acute non-recurrent maxillary sinusitis J01.00 [facility] [id number] [place] [address] 10446- 1421 Aug, [facility] [id number] [place] [address] 26262- 3432 Aug, [facility] [id number] [place] [address] 98242- 4779 Jul, Undifferentiated schizophrenia F20.3 [facility] [address] [place] [address] 42185- 2667 Jul, Schizophrenia, undifferentiated F20.3 ; 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 ; Post-traumatic stress disorder F43.10 ; Panic disorder F41.0 and Depressive disorder, not elsewhere classified F32.9 [place] [address], [place] [address]- 7708 Jul, [facility] [id number] [place] [address] 54213- 9263 Jul, Schizophrenia, undifferentiated F20.3 ; 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 ; Post-traumatic stress disorder F43.10 ; Panic disorder F41.0 and Depressive disorder, not elsewhere classified F32.9 [facility] [id number] [place] [address] 52830- 3186 Jul, [facility] [id number] [place] [address] 25045- 1140 Jul, Undifferentiated schizophrenia F20.3 ; Panic disorder with agoraphobia F40.01 ; 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 ; Obesity E66.9 and Chronic posttraumatic stress disorder F43.12 [facility] [id number] [place] [address] 55407- 2715 Jun, [facility] [id number] [place] [address] 08728- 0184 Jun, [facility] [id number] [place] [address] 69341- 7780 Jun, Dental caries K02.9 [facility] [id number] [place] [address] 45397- 2502 Jun, Undifferentiated schizophrenia F20.3 [facility] [id number] [place] [address] 60749- 9555 May, [facility] [id number] [place] [address] 02365- 7434 May, Undifferentiated schizophrenia F20.3 ; Panic disorder with agoraphobia F40.01 and Chronic post-traumatic stress disorder (PTSD) F43.12 [facility] [id number] [place] [address] 03390- 8535 May, [facility] [id number] [place] [address] 98773- 4328 May, Undifferentiated schizophrenia F20.3 [facility] [id number] [place] [address] 51831- 9426 May, [facility] [id number] [place] [address] 44364- 9355 07 May, 2016 Dental examination Z01.20 [facility] [id number] [place] [address] 95383- 2280 Apr, Undifferentiated schizophrenia F20.3 ; PTSD (post-traumatic stress disorder) F43.10 and Obesity E66.9 [place] [facility] [id number] [place] [address] 99140- 1200 Apr, [facility] [id number] [place] [address] 63960- 6157 Mar, [place] [address] 73156- 5118 Mar, [facility] [address] 00885- 4718 Jan, Shortness of breath R06.02 and Bipolar disorder with psychotic features F31.9 [place] [address] 89122- 2916 Jan, [place] [address] 74514- 0916 Jan, Increased intracranial pressure G93.2 ; Visual disturbance H53.9 and Bipolar II disorder F31.81 [facility] [facility] [id number] [place] [address] 97146- 8535 Jan, [facility] [id number] [place] [address] 65198- 6184 Jan, [place] [id number] [place] [address] 76816- 2713 Jan, [place] [facility] [id number] [place] [address] 71355- 7800 Jan, Acquired hypothyroidism E03.9 ; Depression F32.9 and Insomnia G47.00 [place] [facility] [id number] [place] [address] 06329- 2785 Jan, Exertional dyspnea R06.09 ; Heart palpitations R00.2 ; Hyperlipidemia, unspecified hyperlipidemia type E78.5 ; Hypothyroidism, unspecified type E03.9 and Hypokalemia E87.6 [place] [facility] [address] [place] [address] 82342- 8252 Dec, PTSD (post-traumatic stress disorder) F43.10 ; Depression F32.9 ; Insomnia G47.00 and Bipolar disorder with psychotic features F31.9 [place] [id number] [place] [address] 45671- 4380 Dec, Increased intracranial pressure G93.2 [place] [address] 72230- 0802 Dec, [place] [address] 51314- 7613 Dec, Shortness of breath R06.[address] 94590- 9062 Dec, Visual disturbance H53.9 and Headache, unspecified headache type R51 [address] 31515- 5986 Dec, Insomnia G47.00 [place] [address] 93816- 3737 Dec, Murmur R01.[address] 61414- 2309 Dec, Murmur R01.1 ; Tunnel vision, unspecified laterality H53.489 ; Orthostatic hypertension I10 ; Shortness of breath R06.02 and Tachycardia R00.0 [place] [id number] [place] [address] 96034- 7685 Dec, [place] [address] [place] [address] 28879- 8081 Dec, Hypothyroid E03.9 and Bipolar 1 disorder F31.9 [address] [id number] [place] [address] 80062- 9224 15 Dec, 2015 Bipolar 1 disorder F31.9 [place] [id number] [place] [address] 08183- 8635 08 Dec, [address] [place] [address] 67481- 7936 October, Acquired hypothyroidism E03.9 ; Depression F32.9 and Insomnia G47.00 [facility] [id number] [place] [address] 23921- 9351 October, [facility] [id number] [place] [address] 00552- 6083 October, Bipolar 1 disorder F31.9 ; PTSD (post-traumatic stress disorder) F43.10 and 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 [facility] [id number] [place] [address] 34707- 9773 Oct, Bipolar 1 disorder F31.9 and Insomnia G47.00 [facility] [id number] [place] [address] 93111- 1727 Oct, [facility] [id number] [place] [address] 53098- 9070 Oct, [facility] [id number] [place] [address] 92333- 4725 Aug, Hypothyroid E03.9 [facility] [id number] [place] [address] 17080- 2833 Aug, Encounter for therapeutic drug level monitoring Z51.81 and Other long term care administrator (current) drug therapy Z79.899 [facility] [id number] [place] [address] 03068- 1601 Aug, Encounter for therapeutic drug level monitoring Z51.81 [facility] [id number] [place] [address] 49898- 0913 Aug, Acquired hypothyroidism E03.9 ; Leg pain M79.606 and Bipolar 1 disorder F31.9 [facility] [id number] [place] [address] 84800- 2469 Aug, [facility] [id number] [place] [address] 54378- 1797 Aug, [facility] [id number] [place] [address] 18447- 2713 Jul, Thyroid disorder E07.9 [facility] [id number] [place] [address] 07149- 6927 Jul, Rash R21 ; Abnormal LFTs R94.5 ; Acquired hypothyroidism E03.9 ; Sleep apnea in adult G47.33 and Fatty liver K76.0 [facility] [id number] [place] [address] 33514- 0843 Jun, [facility] [id number] [place] [address] 80183- 8728 Jun, [facility] [address] 81626- 1073 Jun, Bipolar II disorder F31.81 and Social phobia, generalized F40.11 [facility] [address] [place] [address] 20063- 4720 Mar, Bipolar II disorder 296.89 and Social phobia 300.23 [facility] [id number] [place] [address] 51117- 7133 Dec, [facility] [id number] [place] [address] 39490- 6458 Dec, [facility] [id number] [place] [address] 98465- 7028 Dec, Bipolar II disorder in partial or unspecified remission 296.89 and Social phobia, generalized 300.23 [facility] [id number] [place] [address] 31554- 3847 Oct, 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 [facility] [address] 60253- 3374 Oct, [facility] [id number] [place] [address] 50730- 2002 Oct, [facility] [address] 95796- 8659 Aug, [facility] [place] [facility] [address] [id number] [place] [address]- 4974 Aug, [facility] [place] [facility] [address] [id number] [place] [address]- 9007 Aug, [facility] [place] [facility] [address] [id number] [place] [address]- 3508 Aug, [facility] [place] [facility] [address] [id number] [place] [address]- 5646 Aug, [facility] [place] [facility] [address] [id number] [place] [address]- 7672 Aug, [facility] [place] [facility] [address] [id number] [place] [address]- 9602 Aug, [facility] [place] [facility] [address] [id number] [place] [address]- 3563 Aug, [facility] [place] [facility] [address] [id number] [place] [address]- 3273 Jul, [facility] [place] [facility] [address] [id number] [place] [address]- 8969 Jul, [facility] [place] [facility] [address] [facility] [id number] [place] [address]- 5446 Jul, [facility] [place] [facility] [address] [id number] [place] [address]- 3040 Jul, [facility] [place] [facility] [address] [id number] [place] [address]- 9453 Jul, [facility] [place] [facility] [address] [id number] [place] [address] Jul, [facility] [place] [facility] [address] [id number] [place] [address] Jun, [facility] [place] [facility] [address] [facility] [id number] [place] [address] Jun, [facility] [place] [facility] [address] [id number] [place] [address] Jun, [facility] [place] [facility] [address] [id number] [place] [address] Jun, [facility] [place] [facility] [address] [id number] [place] [address] Jun, [facility] [place] [facility] [address] [id number] [place] [address] Jun, [facility] [place] [facility] [address] [id number] [place] [address] Jun, [facility] [place] [facility] [address] [id number] [place] [address] Jun, [facility] [place] [facility] [address] [id number] [place] [address] Jun, [facility] [place] [facility] [address] [id number] [place] [address] Jun, [facility] [place] [facility] [address] [id number] [place] [address] Jun, [facility] [place] [facility] [address] [id number] [place] [address] Jun, [facility] [place] [facility] [address] [id number] [place] [address] Jun, [facility] [place] [facility] [address] [id number] [place] [address] Jun, [facility] [place] [facility] [address] [id number] [place] [address] Jun, [facility] [place] [facility] [address] [id number] [place] [address] Jun, [facility] [place] [facility] [address] [id number] [place] [address] May, [facility] [place] [facility] [address] [id number] [place] [address] May, [facility] [place] [facility] [address] [id number] [place] [address] May, [facility] [place] [facility] [address] [id number] [place] [address] May, [facility] [place] [facility] [address] [id number] [place] [address] May, [facility] [place] [facility] [address] [id number] [place] [address] May, [facility] [place] [facility] [address] [id number] [place] [address]- [address] Apr, [facility] [place] [facility] [address] [id number] [place] [address] Apr, [facility] [place] [facility] [address] [id number] [place] [address] Apr, [facility] [place] [facility] [address] [id number] [place] [address] Apr, [facility] [place] [facility] [address] [id number] [place] [address] Apr, [facility] [place] [facility] [address] [id number], [place] [address] Apr, [facility] [place] [facility] [address] [id number], [place] [address] Mar, [facility] [place] [facility] [address] [id number], [place] [address] Mar, [facility] [place] [facility] [address] [id number] [place] [address] Mar, [facility] [place] [facility] [address] [id number], [place] [address] Mar, [facility] [place] [facility] [address] [address] [id number] [place] [address] Jan, [facility] [place] [facility] [address] [id number] [place] [address] Jan, [facility] [place] [facility] [address] [id number] [place] [address] Jan, [facility] [place] [facility] [address] [id number] [place] [address] Jan, [facility] [place] [facility] [address] [id number] [place] [address] Jan, [facility] [place] [facility] [address] [id number] [place] [address] Jan, [facility] [place] [facility] [address] [id number] [place] [address] Dec, [facility] [place] [facility] [address] [id number] [place] [address] Dec, [facility] [place] [facility] [address] [id number] [place] [address] Dec, [facility] [place] [facility] [address] [id number] [place] [address] Dec, [facility] [place] [facility] [address] [id number] [place] [address] Dec, [facility] [place] [facility] [address] [id number] [place] [address] Dec, [facility] [place] [facility] [address] [id number] [place] [address] October, [facility] [place] [facility] [address] [id number] [place] [address]- [address]690 October, [facility] [place] [facility] [address] [id number] [place] [address] 8773 October, [facility] [place] [facility] [address] [id number] [place] [address] 34[address] October, [facility] [place] [facility] [address] [id number] [place] [address]137 October, [facility] [place] [facility] [address] [id number] [place] [address]- 2985 October, [facility] [place] [facility] [address] [id number] [place] [address]- 6858 October, [facility] [place] [facility] [address] [id number] [place] [address]- 12[address] October, [facility] [place] [facility] [address] [id number] [place] [address] Oct, [facility] [place] [facility] [address] [id number] [place] [address] 4208 Oct, [facility] [place] [facility] [address] [id number] [place] [address]- 5934 Oct, [facility] [place] [facility] [address] [id number] [place] [address]100 Oct, [facility] [place] [facility] [address] [id number] [place] [address] 65[address] Oct, [facility] [place] [facility] [address] [id number] [place] [address]- 3648 Aug, [facility] [place] [facility] [address] [id number] [place] [address]- 6266 Aug, [facility] [place] [facility] [address] [id number] [place] [address]- 9627 Aug, [facility] [place] [facility] [address] [id number] [place] [address]- 7527 Aug, [facility] [place] [facility] [address] [id number] [place] [address]- 7966 Aug, [facility] [place] [facility] [address] [id number] [place] [address]- 4461 Aug, [facility] [place] [facility] [address] [id number] [place] [address] 8695 Jul, [facility] [place] [facility] [address] [id number], [place] [address] Jul, [facility] [address] [id number] [place] [address] 9277 Jul, [facility] [place] [facility] [address] [id number] [place] [address] 8280 Jul, [facility] [place] [facility] [address] [facility] [id number] [place] [address] 3046 Jul, [facility] [place] [facility] [address] [id number] [place] [address] 1564 Jul, [facility] [place] [facility] [address] [id number] [place] [address]- 6095 Jun, [facility] [place] [facility] [address] [id number] [place] [address]- 4680 Jun, [facility] [place] [facility] [address] [facility] [id number] [place] [address]- 0760 Jun, [facility] [place] [facility] [address] [id number] [place] [address]- 4079 Jun, [facility] [place] [facility] [address] [facility] [id number] [place] [address]- 8624 Jun, [facility] [place] [facility] [address] [facility] [id number] [place] [address]103 Jun, [facility] [place] [facility] [address] [id number], [place] [address] May, [facility] [place] [facility] [address] [id number], [place] [address] May, [facility] [place] [facility] [address] [id number], [place] [address] Apr, [facility] [place] [facility] [address] [id number] [place] [address]- 9287 Apr, [facility] [place] [facility] [address] [facility] [id number] [place] [address]- 5570 Apr, [facility] [place] [facility] [address] [id number] [place] [address]- 7426 Apr, 2012 [facility] [place] [facility] [address] [id number] [place] [address]- 7185 Apr, [facility] [place] [facility] [address] [id number] [place] [address]- 9445 Apr, 2012 [facility] [place] [facility] [address] [id number] [place] [address]- 3020 Apr, 2012 [facility] [place] [facility] [address] [id number] [place] [address]- 6107 Apr, 2012 [facility] [place] [facility] [address] [id number] [place] [address]- 0617 Apr, [facility] [place] [facility] [address] [id number] [place] [address]- 0333 Apr, [facility] [place] [facility] [address] [id number] [place] [address]- 7380 Apr, [facility] [place] [facility] [address] [id number] [place] [address]- 2792 23 Mar, 2012 [facility] [place] [facility] [address] [id number] [place] [address]- 4509 20 Mar, 2012 [facility] [place] [facility] [address] [id number] [place] [address]- 0954 20 Mar, 2012 [facility] [place] [facility] [address] [id number] [place] [address]- 3415 14 Mar, 2012 [facility] [place] [facility] [address] [id number] [place] [address]- 2541 12 Mar, 2012 [facility] [place] [facility] [address] [id number] [place] [address]- 2546 06 Mar, 2012 [facility] [place] [facility] [address] [id number] [place] [address]- 2546 06 Mar, 2012 [facility] [place] [facility] [address] [id number] [place] [address]- 7329 Jan, [facility] [place] [facility] [address] [id number] [place] [address]- 0961 Jan, [facility] [place] [facility] [address] [id number] [place] [address]- 9996 Jan, [facility] [place] [facility] [address] [id number] [place] [address]- 2591 Jan, [facility] [place] [facility] [address] [id number] [place] [address]- 7995 Jan, [facility] [place] [facility] [address] [id number] [place] [address]- 0075 Jan, [facility] [place] [facility] [address] [id number] [place] [address]- 8457 Jan, [facility] [place] [facility] [address] [id number] [place] [address]- 4491 Dec, [facility] [place] [facility] [address] [id number] [place] [address]- 9595 Dec, [facility] [place] [facility] [address] [id number] [place] [address]- 0537 Dec, [facility] [place] [facility] [address] [id number] [place] [address]- 6688 Dec, [facility] [place] [facility] [address] [id number] [place] [address]- 2690 Dec, [facility] [place] [facility] [address] [id number] [place] [address]- 1828 Dec, [facility] [place] [facility] [address] [id number] [place] [address]- 9571 October, [facility] [place] [facility] [address] [id number] [place] [address]- 8207 October, [facility] [place] [facility] [address] [id number] [place] [address]- 7145 October, [facility] [place] [facility] [address] [id number] [place] [address]- 5140 10 Oct, 2012 [facility] [address] [id number] [place] [address]- 5864 Oct, [facility] [place] [facility] [address] [id number] [place] [address] Oct, [facility] [address] [facility] [id number] [place] [address]- 6434 27 Aug, 2012 [facility] [place] [facility] [address] [id number] [place] [address]- 5228 26 Aug, 2012 [facility] [address] [id number] [place] [address]- 0269 Aug, [facility] [place] [facility] [address] [facility] [id number] [place] [address]- 6327 Aug, [facility] [address] [facility] [id number] [place] [address]- 6576 Aug, [facility] [address] [facility] [id number] [place] [address]- 6643 Aug, [facility] [place] [facility] [address] [facility] [id number] [place] [address]- 5615 Aug, [facility] [address] [facility] [id number] [place] [address]- 0621 Aug, [facility] [place] [facility] [address] [facility] [id number] [place] [address]- 7414 Aug, [facility] [place] [facility] [address] [facility] [id number] [place] [address]- 3064 11 Aug, 2012 [facility] [place] [facility] [address] [id number] [place] [address] 10 Aug, 2012 [facility] [place] [facility] [address] [facility] [id number] [place] [address]- 7636 08 Aug, 2012 [facility] [place] [facility] [address] [facility] [id number] [place] [address]- 7350 Aug, [facility] [id number], [place] [address]- 69[address] Aug, [facility] [id number], [place] [address]- 1592 Jul, [facility] [id number], [place] [address]- 0098 Jul, [facility] [id number] [place] [address] 3843 Jul, [facility] [id number] [place] [address]- 8835 Jul, [facility] [id number] [place] [address]- 5367 Jun, [facility] [address] [id number], [place] [address] 6388 Jun, [facility] [id number], [place] [address]- 0543 Jun, [facility] [id number], [place] [address]- 3618 Jun, [facility] [id number], [place] [address]- 6[address] May, [facility] [id number], [place] [address]- 6425 May, IMMUNIZATIONS No Known Immunizations SOCIAL HISTORY Never Assessed REASON FOR VISIT f/u Sami PLAN OF CARE Activity Details Follow Up 4-6w Reason: VITAL SIGNS Height 67 in 2017-12-14 Weight 348.5 lbs 2017-12-14 Heart Rate 96 bpm 2017-12-14 Respiratory Rate 22 2017-12-14 BMI 54.58 kg/m2 2017-12-14 Blood pressure systolic 130 mmHg 2017-12-14 Blood pressure diastolic 92 mmHg 2017-12-14 MEDICATIONS Medication Instructions Dosage Frequency Start Date End Date Duration Status Trazodone HCl 100 mg Orally Once a day 2 tablet at bedtime 24h Active Clonazepam 1 MG Orally 3 times a day for anxiety 1 tablet Apr, Active [place] Carbonate 300 MG Orally 2 times a day (For Mood) 1 tablet in the morning, 2 tablets at bedtime Active HydrOXYzine HCl 25 MG Orally two times per day for anxiety 1 tablet as needed Dec, 30 day(s) Active Seroquel 50 mg Orally at bedtime for sleep 1 tablet May, 30 days Active Breo Ellipta 100-25 MCG/INH Inhalation Once a day 1 puff 24h Dec, 90 days Active Aristada 882 MG/3.2ML Intramuscular once monthly 3.2 ml May, Active Levothyroxine Sodium 100 MCG Orally Once a day 1 tablet 24h Aug, 90 days Active Neurontin 400 MG Orally 2 times a day 2 capsules 12h Aug, 60 days Active RESULTS No Results PROCEDURES No [...]
--- OUTSIDE RECORDS SUMMARY | 2018-09-02 18:05 | XMS REPORT ---
Author Author AMARI HOWARD [facility] Address [address] [place] [address] Care Team Providers [employer] Name Role Phone AMARI HOWARD Unavailable PROBLEMS Type Condition ICD9-CM Code BLV51-NU Code Onset Dates Condition Status SNOMED Code Problem Panic disorder with agoraphobia F40.01 Active 83513759 Problem Depressive disorder, not elsewhere classified F32.9 Active 49429575 Problem Chronic posttraumatic stress disorder F43.12 Active 828064913 Problem Insomnia G47.00 Active 566177071 Problem Obesity E66.9 Active 785472848 Problem Other chronic pain G89.29 Active 39220673 Problem Fatty liver K76.0 Active 191068706 Problem Abuse, drug or alcohol F19.10 Active 92456859 Problem Panic disorder without agoraphobia F41.0 Active 16020694 Problem Panic disorder F41.0 Active 826017690 Problem Hypothyroid E03.9 Active 58858715 Problem BMI 50.0-59.9, adult Z68.43 Active 056330661 Problem Restless legs syndrome G25.81 Active 895312329 Problem Encounter for therapeutic drug level monitoring Z51.81 Active 694500347 Problem Neuropathy G62.9 Active 855207359 Problem 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 Active 10626408 Problem Tachycardia R00.0 Active 1639683 Problem Murmur R01.1 Active 035297912 Problem Orthostatic hypertension I10 Active 76504446 Problem Shortness of breath R06.02 Active 700347290 Problem Sleep apnea in adult G47.33 Active 83357586 Problem Tunnel vision, unspecified laterality H53.489 Active 417082368 Problem Undifferentiated schizophrenia F20.3 Active [id number] ALLERGIES No Information ENCOUNTERS Encounter Location Date Diagnosis [facility] [address] [facility] [id number] [address] 18 Apr, 2018 [facility] [address], [place] [address] Jan, [facility] [address] [address] 5[address] Jan, Undifferentiated schizophrenia F20.3 [facility] [address] [address] 1606 Jan, [facility] [id number] [place] [address] 10791- 7160 Jan, Undifferentiated schizophrenia F20.3 [facility] [id number] [place] [address] 13289- 1100 Dec, [facility] [id number] [place] [address] 85701- 5535 Dec, [facility] [id number] [place] [address] 44882- 8675 Dec, [facility] [id number] [place] [address] 86006- 9010 Dec, Undifferentiated schizophrenia F20.3 ; Panic disorder with agoraphobia F40.01 ; Chronic posttraumatic stress disorder F43.12 and BMI 50.0- 59.9, adult Z68.43 [facility] [address] [address] 8[address] Dec, [facility] [address] [address] 9716 Dec, Undifferentiated schizophrenia F20.3 ; Insomnia G47.00 and Thyroid disorder E07.9 [facility] [address] [address] 2898 Dec, Undifferentiated schizophrenia F20.3 [facility] [address] [address] 8516 Dec, [facility] [address] [address]- 7372 Dec, [facility] [id number] [place] [address] 03548- 2517 Dec, BMI 50.0-59.9, adult Z68.43 ; Undifferentiated schizophrenia F20.3 ; Panic disorder without agoraphobia F41.0 and Chronic posttraumatic stress disorder F43.12 [facility] [id number] [place] [address] 46713- 3434 Dec, [facility] [id number] [place] [address] 20226- 5650 October, [facility] [id number] [place] [address] 84332- 4500 October, Pain in right shoulder M25.511 and Other chronic pain G89.29 [facility] [id number] [place] [address] 25997- 6504 October, Hypothyroid E03.9 [facility] [id number] [place] [address] 47883- 2190 Oct, Undifferentiated schizophrenia F20.3 [facility] [id number] [place] [address] 07964- 6610 Oct, [facility] [id number] [place] [address] 70924- 4437 Oct, [facility] [id number] [place] [address] 40925- 4926 Aug, Undifferentiated schizophrenia F20.3 [facility] [id number] [place] [address] 97478- 3121 Aug, [facility] [id number] [place] [address] 27597- 6064 Aug, Undifferentiated schizophrenia F20.3 ; Panic disorder with agoraphobia F40.01 ; Chronic posttraumatic stress disorder F43.12 and BMI 50.0- 59.9, adult Z68.43 [facility] [id number] [place] [address] 89393- 4507 05 Aug, 2017 [facility] [address] [place] [address]- 3315 Aug, [facility] [id number] [place] [address] 67698- 3493 Aug, Undifferentiated schizophrenia F20.3 [facility] [address] [address] 4950 Aug, Hypothyroid E03.9 [facility] [id number] [place] [address] 22267- 0071 Jul, Undifferentiated schizophrenia F20.3 [facility] [id number] [place] [address] 66587- 5784 Jul, [facility] [id number] [place] [address] 82403- 2862 Jul, Undifferentiated schizophrenia F20.3 ; Chronic posttraumatic stress disorder F43.12 ; Panic disorder with agoraphobia F40.01 and BMI 50.0-59.9, adult Z68.43 [facility] [id number] [place] [address] 78040- 2601 Jul, [facility] [id number] [place] [address] 58671- 5352 Jul, Acute pain of right shoulder M25.511 ; High risk medication use Z79.899 ; Needle stick injury W27.3XXA ; Hypothyroid E03.9 and BMI 50.0-59.9 , adult Z68.43 [facility] [address], [place] [address]- 0183 Jun, Undifferentiated schizophrenia F20.3 [facility] [address], [place] [address] 1928 Jun, Undifferentiated schizophrenia F20.3 ; Panic disorder without agoraphobia F41.0 ; Chronic posttraumatic stress disorder F43.12 and BMI 50.0-59.9, adult Z68.43 [facility] [id number] [place] [address] 17286- 2670 May, [facility] [id number] [place] [address] 41621- 3402 May, [facility] [id number] [place] [address] 05589- 8958 May, Undifferentiated schizophrenia F20.3 [facility] [id number] [place] [address] 30664- 0341 May, [facility] [id number] [place] [address] 44299- 4779 May, [facility] [id number] [place] [address] 57414- 4872 May, Hypothyroid E03.9 [facility] [id number] [place] [address] 03379- 7681 May, [facility] [id number] [place] [address] 16324- 2115 May, [facility] [id number] [place] [address] 79305- 9776 07 May, 2017 Chronic posttraumatic stress disorder F43.12 ; Panic disorder with agoraphobia F40.01 ; Undifferentiated schizophrenia F20.3 ; BMI 40.0-44.9, adult Z68.41 and Obesity E66.9 [facility] [id number] [place] [address] 09083- 3534 07 May, 2017 Shortness of breath R06.02 [facility] [id number] [place] [address] 70513- 9860 May, [facility] [id number] [place] [address] 41101- 3526 Apr, Undifferentiated schizophrenia F20.3 [facility] [id number] [place] [address] 74477- 3312 Apr, [facility] [id number] [place] [address] 00772- 5820 Apr, [facility] [id number] [address]- 8180 Mar, Undifferentiated schizophrenia F20.3 ; Panic disorder without agoraphobia F41.0 and Chronic posttraumatic stress disorder F43.12 [facility] [address], [place] [address]- 7635 Mar, Undifferentiated schizophrenia F20.3 [facility] [id number] [place] [address] 10113- 3683 Mar, [facility] [id number] [place] [address] 89560- 6149 Mar, [facility] [id number] [place] [address] 58628- 4151 Mar, [facility] [id number] [place] [address] 35058- 6461 Jan, Undifferentiated schizophrenia F20.3 [facility] [id number] [place] [address] 10573- 3895 Jan, [facility] [id number] [place] [address] 87573- 6583 Jan, [facility] [id number] [place] [address] 69653- 8753 Jan, [address] [id number] [id number] Dec, Needle stick injury W27.3XXA [facility] [id number] [place] [address] 91609- 5469 Dec, Needle stick injury W27.3XXA [facility] [id number] [place] [address] 78756- 0792 Dec, Undifferentiated schizophrenia F20.3 [facility] [id number] [place] [address] 64414- 1261 Dec, [facility] [id number] [place] [address] 00242- 5778 Dec, [facility] [address], [place] [address]- 0202 Dec, Undifferentiated schizophrenia F20.3 ; Panic disorder with agoraphobia F40.01 and Chronic posttraumatic stress disorder F43.12 [facility] [address], [place] [address]- 7491 Dec, [facility] [id number] [place] [address] 64262- 0006 October, [facility] [id number] [place] [address] 23970- 4446 October, Undifferentiated schizophrenia F20.3 [facility] [id number] [place] [address] 44800- 4296 October, [facility] [address], [place] [address]- 6462 October, [facility] [id number] [place] [address] 81508- 3506 Oct, Undifferentiated schizophrenia F20.3 ; Panic disorder with agoraphobia F40.01 ; Chronic posttraumatic stress disorder F43.12 and Obesity E66.9 [facility] [id number] [address]- 8205 Oct, [facility] [address], [place] [address]- 2920 Oct, [facility] [id number] [place] [address] 39061- 9798 Aug, Undifferentiated schizophrenia F20.3 [facility] [address], [place] [address]- 7324 Aug, [facility] [id number] [place] [address] 14072- 5409 Aug, Muscle spasm M62.838 [facility] [id number] [address]- 2325 Aug, Undifferentiated schizophrenia F20.3 [facility] [address], [place] [address]- 0114 Aug, Undifferentiated schizophrenia F20.3 ; Panic disorder with agoraphobia F40.01 ; Chronic posttraumatic stress disorder F43.12 ; High risk medication use Z79.899 and 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 [facility] [address], [place] [address]- 3066 Aug, Undifferentiated schizophrenia F20.3 [facility] [id number] [place] [address] 01894- 8055 Aug, [facility] [id number] [place] [address] 88623- 3960 Aug, Acute non-recurrent maxillary sinusitis J01.00 [facility] [id number] [place] [address] 87019- 0412 Aug, [facility] [id number] [place] [address] 79066- 1161 Aug, [facility] [id number] [place] [address] 99296- 0045 Jul, Undifferentiated schizophrenia F20.3 [facility] [id number] [place] [address] 81034- 3070 Jul, Schizophrenia, undifferentiated F20.3 ; 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 ; Post-traumatic stress disorder F43.10 ; Panic disorder F41.0 and Depressive disorder, not elsewhere classified F32.9 [facility] [address], [place] [address]- 5189 Jul, [facility] [id number] [place] [address] 33025- 0420 Jul, Schizophrenia, undifferentiated F20.3 ; 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 ; Post-traumatic stress disorder F43.10 ; Panic disorder F41.0 and Depressive disorder, not elsewhere classified F32.9 [facility] [id number] [place] [address] 18149- 0173 Jul, [facility] [id number] [place] [address] 77991- 1052 Jul, Undifferentiated schizophrenia F20.3 ; Panic disorder with agoraphobia F40.01 ; 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 ; Obesity E66.9 and Chronic posttraumatic stress disorder F43.12 [facility] [id number] [place] [address] 45065- 8395 Jun, [facility] [id number] [place] [address] 49692- 8779 Jun, [facility] [id number] [place] [address] 85415- 6467 Jun, Dental caries K02.9 [facility] [id number] [place] [address] 83918- 3197 Jun, Undifferentiated schizophrenia F20.3 [facility] [id number] [place] [address] 13173- 9074 May, [facility] [id number] [place] [address] 44928- 0226 May, Undifferentiated schizophrenia F20.3 ; Panic disorder with agoraphobia F40.01 and Chronic post-traumatic stress disorder (PTSD) F43.12 [facility] [id number] [place] [address] 49840- 1885 May, [facility] [id number] [place] [address] 49039- 0841 May, Undifferentiated schizophrenia F20.3 [facility] [id number] [place] [address] 53763- 2680 May, [facility] [id number] [place] [address] 38110- 7409 07 May, 2016 Dental examination Z01.20 [facility] [id number] [place] [address] 78114- 4886 Apr, Undifferentiated schizophrenia F20.3 ; PTSD (post-traumatic stress disorder) F43.10 and Obesity E66.9 [place] [id number] [place] [address] 23393- 9011 Apr, [place] [address] 666769- 8706 Mar, [place] [address] 02485- 0163 Mar, [place] [address] 14132- 4523 Jan, Shortness of breath R06.02 and Bipolar disorder with psychotic features F31.9 [place] [address] 67693- 2430 Jan, [place] [address] 05696- 4251 Jan, Increased intracranial pressure G93.2 ; Visual disturbance H53.9 and Bipolar II disorder F31.81 [place] [id number] [place] [address] 57044- 0969 Jan, [place] [address] 64952- 1220 Jan, [place] [id number] [place] [address] 93426- 9187 Jan, [place] [id number] [place] [address] 41157- 7321 Jan, Acquired hypothyroidism E03.9 ; Depression F32.9 and Insomnia G47.00 [place] [id number] [place] [address] 27126- 3882 Jan, Exertional dyspnea R06.09 ; Heart palpitations R00.2 ; Hyperlipidemia, unspecified hyperlipidemia type E78.5 ; Hypothyroidism, unspecified type E03.9 and Hypokalemia E87.6 [place] [address] 09781- 0056 Dec, PTSD (post-traumatic stress disorder) F43.10 ; Depression F32.9 ; Insomnia G47.00 and Bipolar disorder with psychotic features F31.9 [place] [id number] [place] [address] 93272- 5796 Dec, Increased intracranial pressure G93.2 [place] [id number] [place] [address] 10028- 2591 Dec, [place] [address] 59730- 7749 Dec, Shortness of breath R06.[address] 34341- 8691 Dec, Visual disturbance H53.9 and Headache, unspecified headache type R51 [place] [id number] [place] [address] 39480- 2023 Dec, Insomnia G47.00 [place] [id number] [place] [address] 75968- 2552 Dec, Murmur R01.[address] 85536- 8470 Dec, Murmur R01.1 ; Tunnel vision, unspecified laterality H53.489 ; Orthostatic hypertension I10 ; Shortness of breath R06.02 and Tachycardia R00.0 [place] [id number] [place] [address] 76412- 3233 Dec, [place] [id number] [place] [address] 74486- 5946 Dec, Hypothyroid E03.9 and Bipolar 1 disorder F31.9 [id number] [place] [address] 47238- 5317 15 Dec, 2015 Bipolar 1 disorder F31.9 [place] [id number] [place] [address] 44273- 8119 08 Dec, 2015 [place] [id number] [place] [address] 45099- 8439 October, Acquired hypothyroidism E03.9 ; Depression F32.9 and Insomnia G47.00 [facility] [id number] [place] [address] 43847- 7139 October, [facility] [id number] [place] [address] 12260- 9423 October, Bipolar 1 disorder F31.9 ; PTSD (post-traumatic stress disorder) F43.10 and 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 [facility] [id number] [place] [address] 15750- 3100 Oct, Bipolar 1 disorder F31.9 and Insomnia G47.00 [facility] [id number] [place] [address] 42763- 7241 Oct, [place] [id number] [place] [address] 43270- 3127 Oct, [facility] [id number] [place] [address] 35868- 6284 Aug, Hypothyroid E03.9 [facility] [id number] [place] [address] 26991- 8525 Aug, Encounter for therapeutic drug level monitoring Z51.81 and Other alf (current) drug therapy Z79.899 [place] [id number] [place] [address] 09469- 8046 Aug, Encounter for therapeutic drug level monitoring Z51.81 [facility] [id number] [place] [address] 04127- 8667 Aug, Acquired hypothyroidism E03.9 ; Leg pain M79.606 and Bipolar 1 disorder F31.9 [facility] [id number] [place] [address] 12714- 4055 Aug, [facility] [id number] [place] [address] 66770- 7569 Aug, [place] [id number] [place] [address] 04252- 7919 Jul, Thyroid disorder E07.9 [facility] [id number] [place] [address] 97048- 8090 Jul, Rash R21 ; Abnormal LFTs R94.5 ; Acquired hypothyroidism E03.9 ; Sleep apnea in adult G47.33 and Fatty liver K76.0 [facility] [address] 41891- 3707 Jun, [facility] [id number] [place] [address] 38419- 0689 Jun, [facility] [address] 47757- 0921 Jun, Bipolar II disorder F31.81 and Social phobia, generalized F40.11 [facility] [address] [place] [id number] [address]506 Mar, Bipolar II disorder 296.89 and Social phobia 300.23 [facility] [id number] [place] [address]991- [address]304 Dec, [facility] [address] [place], [place] [id number] [place] [phone]- [address]6 Dec, [facility] [address] [place], [place] [id number] [place] [address]- 8381 Dec, Bipolar II disorder in partial or unspecified remission 296.89 and Social phobia, generalized 300.23 [facility] [id number] [place] [address] 35834- 6089 Oct, 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 [facility] [address] [address]- [address] 14 Oct, 2014 [facility] [id number] [place] [phone]- [phone] 13 Oct, 2014 [facility] [address] [address]- [address] Aug, [facility] [place] [facility] [address] [id number] [place] [address] Aug, [facility] [place] [facility] [address] [id number] [place] [address] Aug, [facility] [place] [facility] [address] [id number] [place] [address] Aug, [facility] [place] [facility] [address] [id number] [place] [address] Aug, [facility] [place] [facility] [address] [id number] [place] [address] Aug, [facility] [facility] [address] [id number] [place] [address] Aug, [facility] [place] [facility] [address] [id number] [place] [address] Aug, [facility] [place] [facility] [address] [id number] [place] [address] Jul, [facility] [place] [facility] [address] [id number] [place] [address]84 Jul, [facility] [place] [facility] [address] [id number] [place] [address] 8494 Jul, [facility] [place] [facility] [address] [id number] [place] [address] 46[address] Jul, [facility] [place] [facility] [address] [id number] [place] [address] 1767 Jul, [facility] [place] [facility] [address] [id number] [place] [address] 9844 Jul, [facility] [place] [facility] [address] [id number] [place] [address] 9818 Jun, [facility] [place] [facility] [address] [id number] [place] [address] 3989 Jun, [facility] [place] [facility] [address] [id number] [place] [address]79 Jun, [facility] [place] [facility] [address] [id number] [place] [address] 6924 Jun, [facility] [place] [facility] [address] [id number] [place] [address] 7311 Jun, [facility] [facility] [address] [id number] [place] [address] Jun, [facility] [place] [facility] [address] [id number] [place] [address] 5134 Jun, [facility] [facility] [address] [id number] [place] [address] 7424 Jun, [facility] [address] [id number] [place] [address] 2027 Jun, [facility] [facility] [address] [id number] [place] [address]- 3966 Jun, [facility] [address] [id number] [place] [address] 4094 Jun, [facility] [facility] [address] [id number] [place] [address] 3[address] Jun, [facility] [address] [id number] [place] [address]- 1088 Jun, [facility] [address] [id number] [place] [address]- 1658 Jun, [facility] [address] [id number] [place] [address]- 3677 Jun, [facility] [address] [id number] [place] [address]- 8694 Jun, [facility] [address] [id number] [place] [address]- 9127 May, [facility] [address] [id number] [place] [address]- 0048 May, [facility] [facility] [address] [id number] [place] [address]- 7724 May, [facility] [facility] [address] [id number] [place] [address]- 8970 May, [facility] [place] [facility] [address] [id number] [place] [address]- 8600 May, [facility] [place] [facility] [address] [id number] [place] [address]- 4322 May, [facility] [place] [facility] [address] [id number] [place] [address]- 5557 Apr, [facility] [facility] [address] [id number] [place] [address]- 5728 Apr, [facility] [facility] [address] [id number] [place] [address]- 6[address] Apr, [facility] [facility] [address] [id number], [place] [address] Apr, [facility] [address] [id number] [place] [address]- 1019 Apr, [facility] [place] [facility] [address] [id number], [place] [address]- 9665 Apr, [facility] [address] [id number], [place] [address]- 2224 Mar, [facility] [place] [facility] [address] [id number], [place] [address] 7667 Mar, [facility] [place] [facility] [address] [id number] [place] [address]- 2915 Mar, [facility] [facility] [address] [id number], [place] [address]- 4543 Mar, [facility] [address] [id number] [place] [address]- 6825 Jan, [facility] [facility] [address] [id number] [place] [address]- 3308 Jan, [facility] [address] [id number] [place] [address]- 2036 Jan, [facility] [address] [id number] [place] [address]- 5944 Jan, [facility] [facility] [address] [id number] [place] [address]- 7335 Jan, [facility] [address] [id number] [place] [address]- 5010 Jan, [facility] [address] [id number] [place] [address]- 6533 Dec, [facility] [address] [id number] [place] [address]- 7285 Dec, [facility] [facility] [address] [id number] [place] [address]- 8505 Dec, [facility] [address] [id number] [place] [address]- 2362 Dec, [facility] [address] [id number] [place] [address]- 1234 Dec, [facility] [address] [id number] [place] [address]- 5773 Dec, [facility] [address] [id number] [place] [address]- 3641 October, [facility] [address] [id number] [place] [address]- 4406 October, [facility] [address] [id number] [place] [address]- 4994 October, [facility] [address] [id number] [place] [address]- 7872 October, [facility] [address] [id number] [place] [address]- 0572 October, [facility] [address] [id number] [place] [address]- 2695 October, [facility] [address] [id number] [place] [address]- 5605 October, [facility] [address] [id number] [place] [address] October, [facility] [address] [id number] [place] [address]- 2928 Oct, [facility] [address] [id number] [place] [address]- 5675 Oct, [facility] [address] [id number] [place] [address]- 2201 Oct, [facility] [address] [id number] [place] [address]- 3394 Oct, [facility] [address] [id number] [place] [address]- 4224 Oct, [facility] [address] [id number] [place] [address]- 5648 Aug, [facility] [address] [id number] [place] [address]- 5538 Aug, [facility] [address] [id number] [place] [address]- 9035 Aug, [facility] [address] [id number] [place] [address]- 5216 Aug, [facility] [address] [id number] [place] [address]- 7729 Aug, [facility] [address] [id number] [place] [address]- 7455 Aug, [facility] [address] [id number] [place] [address] Jul, [facility] [address] [id number][place] [address]- 7740 Jul, [facility] [address] [id number] [place] [address]- 6644 Jul, [facility] [address] [id number] [place] [address] Jul, [facility] [address] [id number] [place] [address]- 0139 Jul, [facility] [address] [id number] [place] [address]- 7657 Jul, [facility] [address] [id number] [place] [address]- 3928 Jun, [facility] [address] [id number] [place] [address]- 7436 Jun, [facility] [address] [id number] [place] [address]- 7795 Jun, [facility] [address] [id number] [place] [address]- 6696 Jun, [facility] [address] [id number] [place] [address]- 7332 Jun, [facility] [address] [id number] [place] [address]- 5755 Jun, [facility] [address] [id number], [place] [address]- 1102 May, [facility] [address] [id number], [place] [address]- 0330 May, [facility] [address] [id number], [place] [address]- 6996 Apr, [facility] [address] [id number] [place] [address]- 8393 Apr, [facility] [address] [id number] [place] [address]- 7922 Apr, [facility] [address] [id number] [place] [address]- 4436 Apr, 2012 [facility] [address] [id number] [place] [address]- 3601 Apr, [facility] [address] [id number] [place] [address]- 4305 Apr, [facility] [address] [id number] [place] [address]- 6311 Apr, 2012 [facility] [address] [id number] [place] [address]- 9913 Apr, [facility] [address] [id number] [place] [address]- 7965 Apr, [facility] [address] [id number] [place] [address]- 9295 Apr, [facility] [address] [id number] [place] [address]- 6838 Apr, [facility] [address] [id number] [place] [address]- 5362 23 Mar, 2012 [facility] [address] [id number] [place] [address]- 1750 20 Mar, 2012 [facility] [address] [id number] [place] [address]- 2070 20 Mar, 2012 [facility] [address] [id number] [place] [address]- 6079 14 Mar, 2012 [facility] [address] [id number] [place] [address]- 2540 12 Mar, 2012 [facility] [address] [id number] [place] [address]- 3531 06 Mar, 2012 [facility] [address] [id number] [place] [address]- 2546 06 Mar, 2012 [facility] [address] [id number] [place] [address]- 7038 Jan, [facility] [address] [id number] [place] [address]- 0547 Jan, [facility] [address] [id number] [place] [address]- 5280 Jan, [facility] [address] [id number] [place] [address]- 3695 Jan, [facility] [address] [id number] [place] [address]- 0595 Jan, [facility] [address] [id number] [place] [address]- 4706 Jan, [facility] [address] [id number] [place] [address]- 6736 Jan, [facility] [address] [id number] [place] [address]- 5830 Dec, [facility] [address] [id number] [place] [address]- 0958 Dec, [facility] [address] [id number] [place] [address]- 4527 Dec, [facility] [address] [id number] [place] [address]- 9429 Dec, [facility] [address] [id number] [place] [address]- 4583 Dec, [facility] [address] [id number] [place] [address]- 2895 Dec, [facility] [address] [id number] [place] [address]- 5348 October, [facility] [address] [id number] [place] [address]- 0739 October, [facility] [address] [id number] [place] [address]- 9129 October, [facility] [address] [id number] [place] [address]- 2994 10 Oct, 2012 [facility] [address] [id number] [place] [address]- 0677 Oct, [facility] [address] [facility] [id number] [place] [address] Oct, [facility] [address] [facility] [id number] [place] [address]- 8979 27 Aug, 2012 [facility] [address] [facility] [id number] [place] [address]- 5366 26 Aug, 2012 [facility] [address] [id number] [place] [address]- 8965 Aug, [facility] [address] [facility] [id number] [place] [address]- 2045 Aug, [facility] [address] [facility] [id number] [place] [address]- 1294 Aug, [facility] [address] [facility] [id number] [place] [address]- 4105 Aug, [facility] [address] [facility] [id number] [place] [address]- 6414 Aug, [facility] [address] [facility] [id number] [place] [address]- 2449 Aug, [facility] [address] [id number] [place] [address]- 8559 Aug, [facility] [address] [facility] [id number] [place] [address]- 3919 11 Aug, 2012 [facility] [address] [facility] [id number] [place] [address]- 8278 10 Aug, 2012 [facility] [address] [facility] [id number] [place] [address]- 2536 08 Aug, 2012 [facility] [id number] [address] Aug, [facility] [address] [id number] [address]- 3433 Aug, [facility] [id number], [place] [address]- 7282 Jul, [facility] [id number], [place] [address]- 3120 Jul, [facility] [id number], [place] [address]- 7283 Jul, [facility] [id number], [place] [address]- 5214 Jul, [facility] [id number] [place] [address]- 9985 Jun, [facility] [id number], [place] [address]- 3647 Jun, [facility] [id number], [place] [address]- 7671 Jun, [facility] [id number], [place] [address]- 1180 Jun, [facility] [id number], [place] [address]- 4958 May, [facility] [address] [id number], [place] [address]- 5212 May, IMMUNIZATIONS Vaccine Route Administration Date Status ARISTADA 882 MG/2.5 ML (PT'S OWN) IM Intramuscular December 20, 2017 Administered SOCIAL HISTORY Never Assessed REASON FOR VISIT Injection-Raza ZAMBRANO PLAN OF CARE Activity Details Follow Up 4 Weeks Reason: VITAL SIGNS MEDICATIONS Unknown Medications RESULTS No Results PROCEDURES Procedure Date Ordered Result Body Site ARISTADA 882 MG/2.5 ML (PT'S OWN) December 20, 2017 THER/PROPH/DIAG INJ, SC/IM December 20, 2017 INSTRUCTIONS MEDICATIONS ADMINISTERED No Known Medications MEDICAL [...]
--- OUTSIDE RECORDS SUMMARY | 2018-09-02 18:06 | XMS REPORT ---
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 Name Role Phone AMARI HOWARD Unavailable PROBLEMS Type Condition ICD9-CM Code LUW07-NW Code Onset Dates Condition Status SNOMED Code Problem Panic disorder with agoraphobia F40.01 Active 74209525 Problem Depressive disorder, not elsewhere classified F32.9 Active 25578692 Problem Chronic posttraumatic stress disorder F43.12 Active 009725799 Problem Insomnia G47.00 Active 184430146 Problem Obesity E66.9 Active 442660810 Problem Other chronic pain G89.29 Active 62973153 Problem Fatty liver K76.0 Active 648125613 Problem Abuse, drug or alcohol F19.10 Active 17335157 Problem Panic disorder without agoraphobia F41.0 Active 22250781 Problem Panic disorder F41.0 Active 872859149 Problem Hypothyroid E03.9 Active 54144765 Problem BMI 50.0-59.9, adult Z68.43 Active 375979225 Problem Restless legs syndrome G25.81 Active 958699818 Problem Encounter for therapeutic drug level monitoring Z51.81 Active 934127057 Problem Neuropathy G62.9 Active 691378700 Problem 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 Active 99553598 Problem Tachycardia R00.0 Active 5121705 Problem Murmur R01.1 Active 888571840 Problem Orthostatic hypertension I10 Active 43024370 Problem Shortness of breath R06.02 Active 301293529 Problem Sleep apnea in adult G47.33 Active 52168726 Problem Tunnel vision, unspecified laterality H53.489 Active 458883127 Problem Undifferentiated schizophrenia F20.3 Active 426903932 ALLERGIES No Information ENCOUNTERS Encounter Location Date Diagnosis [facility] [address] [facility] [id number] [address] 18 Apr, 2018 [facility] [address] [address] Jan, [facility] [address], [place] [address] 6[address] Jan, Undifferentiated schizophrenia F20.3 [facility] [address], [place] [address] Jan, [facility] [id number] [place] [address] 01138- 4298 Jan, Undifferentiated schizophrenia F20.3 [facility] [id number] [place] [address] 30237- 3241 Dec, [facility] [id number] [place] [address] 43818- 0083 Dec, [facility] [id number] [place] [address] 41906- 6757 Dec, [facility] [id number] [place] [address] 63748- 6948 Dec, Undifferentiated schizophrenia F20.3 ; Panic disorder with agoraphobia F40.01 ; Chronic posttraumatic stress disorder F43.12 and BMI 50.0- 59.9, adult Z68.43 [facility] [address] [address] Dec, [facility] [address] [address] 4232 Dec, Undifferentiated schizophrenia F20.3 ; Insomnia G47.00 and Thyroid disorder E07.9 [facility] [address], [place] [address] 1825 Dec, Undifferentiated schizophrenia F20.3 [facility] [address], [place] [address] 8549 Dec, [facility] [address], [place] [address] 1605 Dec, [facility] [id number] [place] [address] 91310- 7964 Dec, BMI 50.0-59.9, adult Z68.43 ; Undifferentiated schizophrenia F20.3 ; Panic disorder without agoraphobia F41.0 and Chronic posttraumatic stress disorder F43.12 [facility] [id number] [place] [address] 12942- 3790 Dec, [facility] [id number] [place] [address] 05289- 9248 October, [facility] [id number] [place] [address] 87653- 6115 October, Pain in right shoulder M25.511 and Other chronic pain G89.29 [facility] [id number] [place] [address] 07092- 4067 October, Hypothyroid E03.9 [facility] [id number] [place] [address] 28825- 6709 Oct, Undifferentiated schizophrenia F20.3 [facility] [id number] [place] [address] 20679- 3846 Oct, [facility] [id number] [place] [address] 89040- 7116 Oct, [facility] [id number] [place] [address] 29765- 1265 Aug, Undifferentiated schizophrenia F20.3 [facility] [id number] [place] [address] 93821- 4399 Aug, [facility] [id number] [place] [address] 81237- 2632 Aug, Undifferentiated schizophrenia F20.3 ; Panic disorder with agoraphobia F40.01 ; Chronic posttraumatic stress disorder F43.12 and BMI 50.0- 59.9, adult Z68.43 [facility] [id number] [place] [address] 27166- 0972 05 Aug, 2017 [facility] [address] [place] [address]- 5125 Aug, [facility] [id number] [place] [address] 81836- 7617 Aug, Undifferentiated schizophrenia F20.3 [facility] [address], [place] [address] 6331 Aug, Hypothyroid E03.9 [facility] [id number] [place] [address] 37256- 0758 Jul, Undifferentiated schizophrenia F20.3 [facility] [id number] [place] [address] 06319- 7595 Jul, [facility] [id number] [place] [address] 71507- 0305 Jul, Undifferentiated schizophrenia F20.3 ; Chronic posttraumatic stress disorder F43.12 ; Panic disorder with agoraphobia F40.01 and BMI 50.0-59.9, adult Z68.43 [facility] [address] [place] [address] 61269- 9743 Jul, [facility] [id number] [place] [address] 33577- 6884 Jul, Acute pain of right shoulder M25.511 ; High risk medication use Z79.899 ; Needle stick injury W27.3XXA ; Hypothyroid E03.9 and BMI 50.0-59.9 , adult Z68.43 [facility] [address], [place] [address] 4738 Jun, Undifferentiated schizophrenia F20.3 [facility] [address] [address] 4067 Jun, Undifferentiated schizophrenia F20.3 ; Panic disorder without agoraphobia F41.0 ; Chronic posttraumatic stress disorder F43.12 and BMI 50.0-59.9, adult Z68.43 [facility] [id number] [place] [address] 54544- 0321 May, [facility] [id number] [place] [address] 58674- 6656 May, [facility] [id number] [place] [address] 27332- 4914 May, Undifferentiated schizophrenia F20.3 [facility] [id number] [place] [address] 66093- 3041 May, [facility] [id number] [place] [address] 54133- 3599 May, [facility] [id number] [place] [address] 66264- 0830 May, Hypothyroid E03.9 [facility] [id number] [place] [address] 47350- 1247 May, [facility] [id number] [place] [address] 94807- 1100 May, [facility] [id number] [place] [address] 15726- 5166 07 May, 2017 Chronic posttraumatic stress disorder F43.12 ; Panic disorder with agoraphobia F40.01 ; Undifferentiated schizophrenia F20.3 ; BMI 40.0-44.9, adult Z68.41 and Obesity E66.9 [facility] [address] [place] [address] 30048- 9370 07 May, 2017 Shortness of breath R06.02 [facility] [id number] [place] [address] 77444- 1918 May, [facility] [id number] [place] [address] 32536- 4008 Apr, Undifferentiated schizophrenia F20.3 [facility] [id number] [place] [address] 07264- 6991 Apr, [facility] [id number] [place] [address] 28669- 8085 Apr, [facility] [id number] [address] 5653 Mar, Undifferentiated schizophrenia F20.3 ; Panic disorder without agoraphobia F41.0 and Chronic posttraumatic stress disorder F43.12 [facility] [address], [place] [address]- 2050 Mar, Undifferentiated schizophrenia F20.3 [facility] [id number] [place] [address] 29088- 0991 Mar, [facility] [id number] [place] [address] 71796- 7230 Mar, [facility] [id number] [place] [address] 16699- 1816 Mar, [facility] [id number] [place] [address] 74899- 1952 Jan, Undifferentiated schizophrenia F20.3 [facility] [id number] [place] [address] 37893- 4053 Jan, [facility] [id number] [place] [address] 00940- 0146 Jan, [facility] [id number] [place] [address] 30719- 6758 Jan, [address] [id number] [id number] Dec, Needle stick injury W27.3XXA [facility] [address] [place] [address] 14185- 6335 Dec, Needle stick injury W27.3XXA [facility] [id number] [place] [address] 93942- 1780 Dec, Undifferentiated schizophrenia F20.3 [facility] [id number] [place] [address] 05946- 8437 Dec, [facility] [id number] [place] [address] 97226- 0106 Dec, [facility] [address], [place] [address]- 8436 Dec, Undifferentiated schizophrenia F20.3 ; Panic disorder with agoraphobia F40.01 and Chronic posttraumatic stress disorder F43.12 [facility] [address], [place] [address]- 3466 Dec, [facility] [id number] [place] [address] 36973- 7915 October, [facility] [id number] [place] [address] 62650- 2541 October, Undifferentiated schizophrenia F20.3 [facility] [id number] [place] [address] 75889- 3106 October, [facility] [address], [place] [address]- 5598 October, [facility] [id number] [place] [address] 64839- 5413 Oct, Undifferentiated schizophrenia F20.3 ; Panic disorder with agoraphobia F40.01 ; Chronic posttraumatic stress disorder F43.12 and Obesity E66.9 [facility] [id number] [address]- 2331 Oct, [facility] [address], [place] [address]- 8600 Oct, [facility] [id number] [place] [address] 81024- 7917 Aug, Undifferentiated schizophrenia F20.3 [facility] [address], [place] [address]- 3341 Aug, [facility] [id number] [place] [address] 97407- 5463 Aug, Muscle spasm M62.838 [facility] [id number] [address]- 1467 Aug, Undifferentiated schizophrenia F20.3 [facility] [address], [place] [address]- 9766 Aug, Undifferentiated schizophrenia F20.3 ; Panic disorder with agoraphobia F40.01 ; Chronic posttraumatic stress disorder F43.12 ; High risk medication use Z79.899 and 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 [facility] [address], [place] [address]- 9656 Aug, Undifferentiated schizophrenia F20.3 [facility] [id number] [place] [address] 87805- 4213 Aug, [facility] [id number] [place] [address] 57672- 7024 Aug, Acute non-recurrent maxillary sinusitis J01.00 [facility] [id number] [place] [address] 95127- 3789 Aug, [facility] [id number] [place] [address] 45024- 1557 Aug, [facility] [id number] [place] [address] 35406- 5202 Jul, Undifferentiated schizophrenia F20.3 [facility] [address] [place] [address] 27492- 5752 Jul, Schizophrenia, undifferentiated F20.3 ; 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 ; Post-traumatic stress disorder F43.10 ; Panic disorder F41.0 and Depressive disorder, not elsewhere classified F32.9 [facility] [address], [place] [address]- 2761 Jul, [facility] [id number] [place] [address] 95921- 3087 Jul, Schizophrenia, undifferentiated F20.3 ; 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 ; Post-traumatic stress disorder F43.10 ; Panic disorder F41.0 and Depressive disorder, not elsewhere classified F32.9 [facility] [id number] [place] [address] 47137- 1253 Jul, [facility] [address] [place] [address] 17849- 6861 Jul, Undifferentiated schizophrenia F20.3 ; Panic disorder with agoraphobia F40.01 ; 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 ; Obesity E66.9 and Chronic posttraumatic stress disorder F43.12 [facility] [id number] [place] [address] 66429- 4612 Jun, [facility] [id number] [place] [address] 87520- 2364 Jun, [facility] [id number] [place] [address] 67671- 2229 Jun, Dental caries K02.9 [facility] [id number] [place] [address] 48684- 2777 Jun, Undifferentiated schizophrenia F20.3 [facility] [id number] [place] [address] 16817- 7485 May, [facility] [id number] [place] [address] 34077- 1217 May, Undifferentiated schizophrenia F20.3 ; Panic disorder with agoraphobia F40.01 and Chronic post-traumatic stress disorder (PTSD) F43.12 [facility] [id number] [place] [address] 63219- 7370 May, [facility] [id number] [place] [address] 26713- 1324 May, Undifferentiated schizophrenia F20.3 [facility] [id number] [place] [address] 82831- 1007 May, [facility] [id number] [place] [address] 17493- 2680 07 May, 2016 Dental examination Z01.20 [facility] [id number] [place] [address] 49016- 9911 Apr, Undifferentiated schizophrenia F20.3 ; PTSD (post-traumatic stress disorder) F43.10 and Obesity E66.9 [place] [facility] [id number] [place] [address] 71841- 1890 Apr, [place] [facility] [address] 743136- 3705 Mar, [place] [address] 48339- 7531 Mar, [place] [address] 37248- 1207 Jan, Shortness of breath R06.02 and Bipolar disorder with psychotic features F31.9 [place] [facility] [address] 56960- 9986 Jan, [place] [facility] [address] 05583- 0584 Jan, Increased intracranial pressure G93.2 ; Visual disturbance H53.9 and Bipolar II disorder F31.81 [facility] [id number] [place] [address] 68545- 0939 Jan, [place] [facility] [address] 64259- 7639 Jan, [facility] [id number] [place] [address] 50540- 5476 Jan, [facility] [id number] [place] [address] 59800- 2484 Jan, Acquired hypothyroidism E03.9 ; Depression F32.9 and Insomnia G47.00 [facility] [id number] [place] [address] 41758- 4186 Jan, Exertional dyspnea R06.09 ; Heart palpitations R00.2 ; Hyperlipidemia, unspecified hyperlipidemia type E78.5 ; Hypothyroidism, unspecified type E03.9 and Hypokalemia E87.6 [facility] [facility] [address] 44035- 1073 Dec, PTSD (post-traumatic stress disorder) F43.10 ; Depression F32.9 ; Insomnia G47.00 and Bipolar disorder with psychotic features F31.9 [facility] [id number] [place] [address] 16128- 7988 Dec, Increased intracranial pressure G93.2 [facility] [id number] [place] [address] 40872- 2337 Dec, [facility] [address] 19814- 7937 Dec, Shortness of breath R06.[address] 62978- 2130 Dec, Visual disturbance H53.9 and Headache, unspecified headache type R51 [place] [id number] [place] [address] 68929- 1289 Dec, Insomnia G47.00 [facility] [id number] [place] [address] 46827- 8842 Dec, Murmur R01.[address] 96770- 3603 Dec, Murmur R01.1 ; Tunnel vision, unspecified laterality H53.489 ; Orthostatic hypertension I10 ; Shortness of breath R06.02 and Tachycardia R00.0 [facility] [id number] [place] [address] 06312- 2366 Dec, [facility] [id number] [place] [address] 56513- 6185 Dec, Hypothyroid E03.9 and Bipolar 1 disorder F31.9 [place] [id number] [place] [address] 16618- 4792 15 Dec, 2015 Bipolar 1 disorder F31.9 [facility] [id number] [place] [address] 75643- 3024 08 Dec, 2015 [place] [id number] [place] [address] 79553- 2191 October, Acquired hypothyroidism E03.9 ; Depression F32.9 and Insomnia G47.00 [facility] [id number] [place] [address] 24714- 3412 October, [facility] [id number] [place] [address] 59108- 0266 October, Bipolar 1 disorder F31.9 ; PTSD (post-traumatic stress disorder) F43.10 and 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 [facility] [id number] [place] [address] 54261- 8914 Oct, Bipolar 1 disorder F31.9 and Insomnia G47.00 [facility] [id number] [place] [address] 02170- 3832 Oct, [facility] [place] [id number] [place] [address] 48091- 8741 Oct, [facility] [id number] [place] [address] 76904- 3910 Aug, Hypothyroid E03.9 [facility] [id number] [place] [address] 78886- 9818 Aug, Encounter for therapeutic drug level monitoring Z51.81 and Other longterm (current) drug therapy Z79.899 [facility] [id number] [place] [address] 97048- 7505 Aug, Encounter for therapeutic drug level monitoring Z51.81 [facility] [id number] [place] [address] 25059- 8868 Aug, Acquired hypothyroidism E03.9 ; Leg pain M79.606 and Bipolar 1 disorder F31.9 [facility] [id number] [place] [address] 33629- 4032 Aug, [facility] [id number] [place] [address] 55008- 4303 Aug, [place] [id number] [place] [address] 89129- 0573 Jul, Thyroid disorder E07.9 [facility] [id number] [place] [address] 59442- 7375 Jul, Rash R21 ; Abnormal LFTs R94.5 ; Acquired hypothyroidism E03.9 ; Sleep apnea in adult G47.33 and Fatty liver K76.0 [facility] [address] 81754- 0211 Jun, [facility] [id number] [place] [address] 83534- 7332 Jun, [facility] [address] 65870- 5505 Jun, Bipolar II disorder F31.81 and Social phobia, generalized F40.11 [facility] [address] [place] [address] 99261- 6970 Mar, Bipolar II disorder 296.89 and Social phobia 300.23 [facility] [id number] [place] [address] 91581- 4033 Dec, [facility] [address] [place] [id number] [place] [address] 80813- 4683 Dec, [facility] [address] [place] [id number] [place] [address] 85815- 8589 Dec, Bipolar II disorder in partial or unspecified remission 296.89 and Social phobia, generalized 300.23 [facility] [id number] [place] [address] 21331- 1699 Oct, 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 [facility] [address] 94629- 0252 14 Oct, 2014 [facility] [id number] [place] [address] 95733- 3534 13 Oct, 2014 [facility] [address] 51032- 2546 Aug, [facility] [place] [facility] [address] [id number] [place] [address]- 8669 Aug, [facility] [place] [facility] [address] [id number] [place] [address]- 6145 Aug, [facility] [place] [facility] [address] [id number] [place] [address]- 4942 Aug, [facility] [place] [facility] [address] [id number] [place] [address]- 5836 Aug, [facility] [place] [facility] [address] [id number] [place] [address]- 3480 Aug, [facility] [place] [facility] [address] [id number] [place] [address]- 9961 Aug, [facility] [place] [facility] [address] [id number] [place] [address]- 9424 Aug, [facility] [place] [facility] [address] [id number] [place] [address] Jul, [facility] [place] [facility] [address] [id number] [place] [address] Jul, [facility] [place] [facility] [address] [id number] [place] [address] Jul, [facility] [place] [facility] [address] [id number] [place] [address] Jul, [facility] [place] [facility] [address] [id number] [place] [address] Jul, [facility] [place] [facility] [address] [id number] [place] [address] Jul, [facility] [place] [facility] [address] [id number] [place] [address] Jun, [facility] [place] [facility] [address] [id number] [place] [address] Jun, [facility] [place] [facility] [address] [id number] [place] [address] Jun, [facility] [place] [facility] [address] [id number] [place] [address] Jun, [facility] [place] [facility] [address] [id number] [place] [address] Jun, [facility] [place] [facility] [address] [id number] [place] [address] Jun, [facility] [place] [facility] [address] [id number] [place] [address] Jun, [facility] [place] [facility] [address] [id number] [place] [address] Jun, [facility] [place] [facility] [address] [id number] [place] [address] Jun, [facility] [place] [facility] [address] [id number] [place] [address] Jun, [facility] [place] [facility] [address] [id number] [place] [address] Jun, [facility] [place] [facility] [address] [id number] [place] [address] Jun, [facility] [place] [facility] [address] [id number] [place] [address] Jun, [facility] [place] [facility] [address] [id number] [place] [address] Jun, [facility] [place] [facility] [address] [id number] [place] [address] Jun, [facility] [place] [facility] [address] [id number] [place] [address] Jun, [facility] [place] [facility] [address] [id number] [place] [address] May, [facility] [place] [facility] [address] [id number] [place] [address] May, [facility] [place] [facility] [address] [id number] [place] [address] May, [facility] [place] [facility] [address] [id number] [place] [address] May, [facility] [place] [facility] [address] [id number] [place] [address] May, [facility] [place] [facility] [address] [id number] [place] [address] May, [facility] [place] [facility] [address] [id number] [place] [address] Apr, [facility] [place] [facility] [address] [id number] [place] [address] Apr, [facility] [place] [facility] [address] [id number] [place] [address] Apr, [facility] [place] [facility] [address] [id number], [place] [address] Apr, [facility] [place] [facility] [address] [id number] [place] [address] Apr, [facility] [place] [facility] [address] [id number], [place] [address] Apr, [facility] [place] [facility] [address] [id number], [place] [address] Mar, [facility] [place] [facility] [address] [id number], [place] [address] Mar, [facility] [place] [facility] [address] [id number] [place] [address] 44[address] Mar, [facility] [place] [facility] [address] [id number], [place] [address] Mar, [facility] [place] [facility] [address] [id number] [place] [address] Jan, [facility] [place] [facility] [address] [id number] [place] [address] Jan, [facility] [place] [facility] [address] [id number] [place] [address] Jan, [facility] [place] [facility] [address] [id number] [place] [address] 3186 Jan, [facility] [place] [facility] [address] [id number] [place] [address] 1190 Jan, [facility] [place] [facility] [address] [id number] [place] [address] 0077 Jan, [facility] [place] [facility] [address] [id number] [place] [address] 7467 Dec, [facility] [place] [facility] [address] [id number] [place] [address] 4979 Dec, [facility] [place] [facility] [address] [id number] [place] [address]- 3[address] Dec, [facility] [place] [facility] [address] [id number] [place] [address] 6054 Dec, [facility] [place] [facility] [address] [id number] [place] [address] 9187 Dec, [facility] [place] [facility] [address] [id number] [place] [address] 4068 Dec, [facility] [place] [facility] [address] [id number] [place] [address] 8814 October, [facility] [place] [facility] [address] [id number] [place] [address] 6[address] October, [facility] [place] [facility] [address] [id number] [place] [address] 9355 October, [facility] [place] [facility] [address] [id number] [place] [address]- 8954 October, [facility] [place] [facility] [address] [id number] [place] [address] 5850 October, [facility] [place] [facility] [address] [id number] [place] [address] 4014 October, [facility] [place] [facility] [address] [id number] [place] [address]- 7616 October, [facility] [place] [facility] [address] [id number] [place] [address] October, [facility] [place] [facility] [address] [id number] [place] [address]- 0160 Oct, [facility] [place] [facility] [address] [id number] [place] [address] 9848 Oct, [facility] [place] [facility] [address] [id number] [place] [address] 7692 Oct, [facility] [place] [facility] [address] [id number] [place] [address] 8427 Oct, [facility] [place] [facility] [address] [id number] [place] [address] 4410 Oct, [facility] [place] [facility] [address] [id number] [place] [address] 8362 Aug, [facility] [place] [facility] [address] [id number] [place] [address] 43[address] Aug, [facility] [place] [facility] [address] [id number] [place] [address]- 8026 Aug, [facility] [place] [facility] [address] [id number] [place] [address] 7769 Aug, [facility] [place] [facility] [address] [id number] [place] [address]- 4223 Aug, [facility] [place] [facility] [address] [id number] [place] [address] 4567 Aug, [facility] [place] [facility] [address] [id number] [place] [address] Jul, [facility] [place] [facility] [address] [id number], [place] [address] 96[address] Jul, [facility] [address] [id number] [place] [address]- 7995 Jul, [facility] [place] [facility] [address] [id number] [place] [address] Jul, [facility] [place] [facility] [address] [id number] [place] [address]- 4276 Jul, [facility] [place] [facility] [address] [id number] [place] [address]- 9463 Jul, [facility] [place] [facility] [address] [id number] [place] [address]- 4066 Jun, [facility] [place] [facility] [address] [id number] [place] [address]- 8112 Jun, [facility] [place] [facility] [address] [id number] [place] [address] 6166 Jun, [facility] [place] [facility] [address] [id number] [place] [address]- 1667 Jun, [facility] [place] [facility] [address] [id number] [place] [address]- 8020 Jun, [facility] [place] [facility] [address] [id number] [place] [address] 4248 Jun, [facility] [place] [facility] [address] [id number], [place] [address] 3486 May, [facility] [place] [facility] [address] [id number], [place] [address] May, [facility] [place] [facility] [address] [id number], [place] [address] 75[address] Apr, [facility] [place] [facility] [address] [id number] [place] [address] 6133 Apr, [facility] [place] [facility] [address] [id number] [place] [address]- 9999 Apr, [facility] [place] [facility] [address] [id number] [place] [address] 9469 Apr, 2012 [facility] [place] [facility] [address] [id number] [place] [address] 4750 Apr, [facility] [place] [facility] [address] [id number] [place] [address]- 7315 Apr, [facility] [place] [facility] [address] [id number] [place] [address]- 0339 Apr, 2012 [facility] [place] [facility] [address] [id number] [place] [address]- 4173 Apr, [facility] [place] [facility] [address] [id number] [place] [address] 2121 Apr, [facility] [place] [facility] [address] [id number] [place] [address]- 8427 Apr, [facility] [place] [facility] [address] [id number] [place] [address]- 4404 Apr, [facility] [place] [facility] [address] [id number] [place] [address]- 9995 23 Mar, 2012 [facility] [place] [facility] [address] [id number] [place] [address]- 6402 20 Mar, 2012 [facility] [place] [facility] [address] [id number] [place] [address]- 2202 20 Mar, 2012 [facility] [place] [facility] [address] [id number] [place] [address]- 7836 14 Mar, 2012 [facility] [place] [facility] [address] [id number] [place] [address]- 254 12 Mar, 2012 [facility] [place] [facility] [address] [id number] [place] [address] 1983 06 Mar, 2012 [facility] [place] [facility] [address] [id number] [place] [address]- 2546 06 Mar, 2012 [facility] [place] [facility] [address] [id number] [place] [address]- 6479 Jan, [facility] [address] [id number] [place] [address]- 6333 Jan, [facility] [place] [facility] [address] [id number] [place] [address]- 3788 Jan, [facility] [place] [facility] [address] [id number] [place] [address]- 5358 Jan, [facility] [place] [facility] [address] [id number] [place] [address]- 2719 Jan, [facility] [place] [facility] [address] [id number] [place] [address]- 0610 Jan, [facility] [place] [facility] [address] [id number] [place] [address]- 8222 Jan, [facility] [place] [facility] [address] [id number] [place] [address]- 8783 Dec, [facility] [place] [facility] [address] [id number] [place] [address]- 1061 Dec, [facility] [place] [facility] [address] [id number] [place] [address]- 3400 Dec, [facility] [place] [facility] [address] [id number] [place] [address]- 1608 Dec, [facility] [place] [facility] [address] [id number] [place] [address]- 2118 Dec, [facility] [place] [facility] [address] [id number] [place] [address]- 3881 Dec, [facility] [place] [facility] [address] [id number] [place] [address]- 5696 October, [facility] [place] [facility] [address] [id number] [place] [address]- 4963 October, [facility] [place] [facility] [address] [id number] [place] [address]- 4686 October, [facility] [place] [facility] [address] [id number] [place] [address]- 3422 10 Oct, 2012 [facility] [address] [id number] [place] [address]- 9081 Oct, [facility] [place] [facility] [address] [facility] [id number] [place] [address] Oct, [facility] [address] [facility] [id number] [place] [address]- 8364 27 Aug, 2012 [facility] [place] [facility] [address] [facility] [id number] [place] [address]- 7987 26 Aug, 2012 [facility] [address] [id number] [place] [address]- 8788 Aug, [facility] [place] [facility] [address] [facility] [id number] [place] [address]- 7907 Aug, [facility] [address] [facility] [id number] [place] [address]- 7596 Aug, [facility] [address] [facility] [id number] [place] [address]- 1502 Aug, [facility] [place] [facility] [address] [facility] [id number] [place] [address]- 9347 Aug, [facility] [place] [facility] [address] [facility] [id number] [place] [address]- 5066 Aug, [facility] [place] [facility] [id number] [address]- 5763 Aug, [facility] [place] [facility] [address] [facility] [id number] [place] [address]- 5659 11 Aug, 2012 [facility] [place] [facility] [address] [facility] [id number] [place] [address]- 8034 10 Aug, 2012 [facility] [place] [facility] [address] [facility] [id number] [place] [address]- 3286 08 Aug, 2012 [facility] [place] [facility] [id number] [address] Aug, [facility] [address] [facility] [id number], [place] [address]- 2509 Aug, [facility] [address] [facility] [id number], [place] [address]- 3519 Jul, [facility] [address] [facility] [id number], [place] [address]- 9435 Jul, [facility] [address] [facility] [id number], [place] [address]- 1347 Jul, [facility] [address] [facility] [id number], [place] [address]- 5403 Jul, [facility] [address] [facility] [id number], [place] [address]- 1383 Jun, [facility] [id number], [place] [address]- 9156 Jun, [facility] [id number], [place] [address]- 4932 Jun, [facility] [address] [id number], [place] [address]- 1873 Jun, [facility] [address] [id number], [place] [address]- 8804 May, [facility] [address] [id number], [place] [address]- 8817 May, IMMUNIZATIONS No Known Immunizations SOCIAL HISTORY Never Assessed REASON FOR VISIT shipment PLAN OF CARE VITAL SIGNS MEDICATIONS Unknown [...]
--- OUTSIDE RECORDS SUMMARY | 2018-09-02 18:07 | XMS REPORT ---
Author Author JOSE LARRY [facility] Address [address] [place] [address] Care Team Providers Care Supervisor Reclamation Name Role Phone JOSE LARRY Unavailable PROBLEMS Type Condition ICD9-CM Code [id number] Code Onset Dates Condition Status SNOMED Code Problem Panic disorder with agoraphobia F40.01 Active 85403263 Problem Depressive disorder, not elsewhere classified F32.9 Active 55114764 Problem Chronic posttraumatic stress disorder F43.12 Active 485760098 Problem Insomnia G47.00 Active 638602028 Problem Obesity E66.9 Active 360079172 Problem Other chronic pain G89.29 Active 34629990 Problem Fatty liver K76.0 Active 672894623 Problem Abuse, drug or alcohol F19.10 Active 13943202 Problem Panic disorder without agoraphobia F41.0 Active 91899775 Problem Panic disorder F41.0 Active 847427074 Problem Hypothyroid E03.9 Active 13925362 Problem BMI 50.0-59.9, adult Z68.43 Active 539232215 Problem Restless legs syndrome G25.81 Active 025588768 Problem Encounter for therapeutic drug level monitoring Z51.81 Active 402062064 Problem Neuropathy G62.9 Active 947359968 Problem 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 Active 65904252 Problem Tachycardia R00.0 Active 3109579 Problem Murmur R01.1 Active 165813790 Problem Orthostatic hypertension I10 Active 34420536 Problem Shortness of breath R06.02 Active 873301998 Problem Sleep apnea in adult G47.33 Active 72776381 Problem Tunnel vision, unspecified laterality H53.489 Active 386477864 Problem Undifferentiated schizophrenia F20.3 Active 292073290 ALLERGIES No Information ENCOUNTERS Encounter Location Date Diagnosis [facility] [address] [facility] [id number] [address] 18 Apr, 2018 [facility] [address], [place] [address] Jan, [facility] [id number] [place] [address] 98418- 8381 Jan, Undifferentiated schizophrenia F20.3 [facility] [address], [place] [address] 27[address] Jan, [facility] [id number] [place] [address] 60943- 3572 Jan, Undifferentiated schizophrenia F20.3 [facility] [id number] [place] [address] 69352- 6698 Dec, [facility] [id number] [place] [address] 26852- 4191 Dec, [facility] [id number] [place] [address] 21449- 9102 Dec, [facility] [id number] [place] [address] 87521- 8023 Dec, Undifferentiated schizophrenia F20.3 ; Panic disorder with agoraphobia F40.01 ; Chronic posttraumatic stress disorder F43.12 and BMI 50.0- 59.9, adult Z68.43 [facility] [address], [place] [address] 3[address] Dec, [facility] [id number] [place] [address] 77296- 6376 Dec, Undifferentiated schizophrenia F20.3 ; Insomnia G47.00 and Thyroid disorder E07.9 [facility] [address], [place] [address] 8170 Dec, Undifferentiated schizophrenia F20.3 [facility] [address], [place] [address] 9746 Dec, [facility] [address], [place] [address]- 5584 Dec, [facility] [id number] [place] [address] 17689- 9362 14 Dec, 2017 BMI 50.0-59.9, adult Z68.43 ; Undifferentiated schizophrenia F20.3 ; Panic disorder without agoraphobia F41.0 and Chronic posttraumatic stress disorder F43.12 [facility] [id number] [place] [address] 60589- 7061 04 Dec, 2017 [facility] [address] 31603- 2515 October, [facility] [id number] [place] [address] 37230- 4762 October, Pain in right shoulder M25.511 and Other chronic pain G89.29 [facility] [id number] [place] [address] 29554- 7079 October, Hypothyroid E03.9 [facility] [address] 55367- 6597 Oct, Undifferentiated schizophrenia F20.3 [facility] [id number] [place] [address] 84482- 0033 Oct, [facility] [id number] [place] [address] 40390- 7919 Oct, [facility] [id number] [place] [address] 36630- 4399 Aug, Undifferentiated schizophrenia F20.3 [facility] [id number] [place] [address] 38341- 3513 Aug, [facility] [id number] [place] [address] 27127- 5172 Aug, Undifferentiated schizophrenia F20.3 ; Panic disorder with agoraphobia F40.01 ; Chronic posttraumatic stress disorder F43.12 and BMI 50.0- 59.9, adult Z68.43 [facility] [id number] [place] [address] 63057- 2215 05 Aug, 2017 [facility] [id number] [place] [address] 23861- 7413 Aug, [facility] [id number] [place] [address] 03338- 4431 Aug, Undifferentiated schizophrenia F20.3 [facility] [id number] [place] [address] 57188- 3961 Aug, Hypothyroid E03.9 [facility] [id number] [place] [address] 43666- 4698 Jul, Undifferentiated schizophrenia F20.3 [facility] [id number] [place] [address] 03502- 1868 Jul, [facility] [id number] [place] [address] 54578- 2541 Jul, Undifferentiated schizophrenia F20.3 ; Chronic posttraumatic stress disorder F43.12 ; Panic disorder with agoraphobia F40.01 and BMI 50.0-59.9, adult Z68.43 [place] [id number] [place] [address] 14893- 6001 Jul, [place] [id number] [place] [address] 95129- 5110 Jul, Acute pain of right shoulder M25.511 ; High risk medication use Z79.899 ; Needle stick injury W27.3XXA ; Hypothyroid E03.9 and BMI 50.0-59.9 , adult Z68.43 [facility] [id number] [place] [address] 77691- 0919 Jun, Undifferentiated schizophrenia F20.3 [facility] [id number] [place] [address] 22322- 8045 14 Jun, 2017 Undifferentiated schizophrenia F20.3 ; Panic disorder without agoraphobia F41.0 ; Chronic posttraumatic stress disorder F43.12 and BMI 50.0-59.9, adult Z68.43 [facility] [id number] [place] [address] 63520- 6864 May, [facility] [address], [place] [address]- 3364 May, [facility] [id number] [place] [address] 66949- 8042 May, Undifferentiated schizophrenia F20.3 [facility] [id number] [place] [address] 23959- 0089 May, [facility] [id number] [place] [address] 80940- 9597 May, [facility] [id number] [place] [address] 64604- 8628 May, Hypothyroid E03.9 [facility] [id number] [place] [address] 54643- 8325 May, [facility] [id number] [place] [address] 66214- 0387 May, [facility] [id number] [place] [address] 84868- 5204 May, Chronic posttraumatic stress disorder F43.12 ; Panic disorder with agoraphobia F40.01 ; Undifferentiated schizophrenia F20.3 ; BMI 40.0-44.9, adult Z68.41 and Obesity E66.9 [facility] [id number] [place] [address] 12890- 1855 May, Shortness of breath R06.02 [facility] [id number] [place] [address] 85513- 2484 May, [facility] [id number] [place] [address] 86751- 9480 Apr, Undifferentiated schizophrenia F20.3 [facility] [id number] [place] [address] 58894- 0695 Apr, [facility] [id number] [place] [address] 61926- 7383 Apr, [facility] [address], [place] [address]- 2700 Mar, Undifferentiated schizophrenia F20.3 ; Panic disorder without agoraphobia F41.0 and Chronic posttraumatic stress disorder F43.12 [facility] [address], [place] [address]- 6303 Mar, Undifferentiated schizophrenia F20.3 [facility] [id number] [place] [address] 56550- 4425 18 Mar, 2017 [facility] [id number] [place] [address] 95633- 2086 08 Mar, 2017 [facility] [id number] [place] [address] 60412- 3183 Mar, [facility] [id number] [place] [address] 14835- 7789 Jan, Undifferentiated schizophrenia F20.3 [facility] [id number] [place] [address] 33589- 2810 Jan, [facility] [id number] [place] [address] 81467- 8825 Jan, [facility] [id number] [place] [address] 28256- 6011 Jan, [address] [id number] [id number] Dec, Needle stick injury W27.3XXA [facility] [address], [place] [address]- 9979 Dec, Needle stick injury W27.3XXA [facility] [id number] [place] [address] 78287- 0062 Dec, Undifferentiated schizophrenia F20.3 [facility] [address], [place] [address]- 8031 Dec, [facility] [id number] [place] [address] 98175- 9850 Dec, [facility] [address], [place] [address]- 2396 Dec, Undifferentiated schizophrenia F20.3 ; Panic disorder with agoraphobia F40.01 and Chronic posttraumatic stress disorder F43.12 [facility] [address], [place] [address]- 2393 Dec, [facility] [id number] [place] [address] 43359- 6627 October, [facility] [id number] [place] [address] 38319- 4883 October, Undifferentiated schizophrenia F20.3 [facility] [id number] [place] [address] 70016- 3588 October, [facility] [id number] [address]- 1473 October, [facility] [id number] [place] [address] 50030- 9376 Oct, Undifferentiated schizophrenia F20.3 ; Panic disorder with agoraphobia F40.01 ; Chronic posttraumatic stress disorder F43.12 and Obesity E66.9 [facility] [address], [place] [address]- 2079 Oct, [facility] [address], [place] [address]- 3370 Oct, [facility] [address], [place] [address]- 1950 Aug, Undifferentiated schizophrenia F20.3 [facility] [address], [place] [address]- 0614 Aug, [facility] [id number], [place] [address]- 6101 Aug, Muscle spasm M62.838 [facility] [address], [place] [address]- 9234 Aug, Undifferentiated schizophrenia F20.3 [facility] [address], [place] [address]- 6760 Aug, Undifferentiated schizophrenia F20.3 ; Panic disorder with agoraphobia F40.01 ; Chronic posttraumatic stress disorder F43.12 ; High risk medication use Z79.899 and 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 [facility] [address], [place] [address]- 0403 Aug, Undifferentiated schizophrenia F20.3 [facility] [id number] [place] [address] 25410- 7703 Aug, [facility] [id number] [place] [address] 79577- 9081 Aug, Acute non-recurrent maxillary sinusitis J01.00 [facility] [id number] [place] [address] 01406- 9369 Aug, [facility] [id number] [place] [address] 86387- 6894 Aug, [facility] [id number] [place] [address] 68960- 1224 Jul, Undifferentiated schizophrenia F20.3 [facility] [id number] [place] [address] 22499- 5316 Jul, Schizophrenia, undifferentiated F20.3 ; 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 ; Post-traumatic stress disorder F43.10 ; Panic disorder F41.0 and Depressive disorder, not elsewhere classified F32.9 [facility] [address], [place] [address]- 6302 Jul, [facility] [id number] [place] [address] 63091- 4937 Jul, Schizophrenia, undifferentiated F20.3 ; 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 ; Post-traumatic stress disorder F43.10 ; Panic disorder F41.0 and Depressive disorder, not elsewhere classified F32.9 [facility] [id number] [place] [address] 22375- 7801 Jul, [facility] [id number] [place] [address] 06727- 2660 Jul, Undifferentiated schizophrenia F20.3 ; Panic disorder with agoraphobia F40.01 ; 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 ; Obesity E66.9 and Chronic posttraumatic stress disorder F43.12 [facility] [id number] [place] [address] 72715- 9916 Jun, [facility] [id number] [place] [address] 41868- 7418 Jun, [facility] [id number] [place] [address] 38351- 9147 Jun, Dental caries K02.9 [facility] [id number] [place] [address] 17143- 4459 Jun, Undifferentiated schizophrenia F20.3 [facility] [id number] [place] [address] 43978- 4076 May, [facility] [id number] [place] [address] 55462- 0374 May, Undifferentiated schizophrenia F20.3 ; Panic disorder with agoraphobia F40.01 and Chronic post-traumatic stress disorder (PTSD) F43.12 [facility] [id number] [place] [address] 56085- 0103 May, [facility] [id number] [place] [address] 07395- 8129 May, Undifferentiated schizophrenia F20.3 [facility] [id number] [place] [address] 33671- 1729 May, [facility] [id number] [place] [address] 83130- 1899 07 May, 2016 Dental examination Z01.20 [facility] [id number] [place] [address] 07531- 4562 Apr, Undifferentiated schizophrenia F20.3 ; PTSD (post-traumatic stress disorder) F43.10 and Obesity E66.9 [place] [id number] [place] [address] 07353- 0638 Apr, [facility] [id number] [place] [address] 29556- 0845 Mar, [place] [address] 01152- 9189 Mar, [facility] [id number] [place] [address] 33877- 0597 Jan, Shortness of breath R06.02 and Bipolar disorder with psychotic features F31.9 [place] [address] 01890- 9049 Jan, [place] [address] 50136- 7755 Jan, Increased intracranial pressure G93.2 ; Visual disturbance H53.9 and Bipolar II disorder F31.81 [place] [id number] [place] [address] 21960- 0628 Jan, [facility] [id number] [place] [address] 18251- 0404 Jan, [facility] [id number] [place] [address] 54866- 9827 Jan, [facility] [id number] [place] [address] 58497- 2190 Jan, Acquired hypothyroidism E03.9 ; Depression F32.9 and Insomnia G47.00 [place] [id number] [place] [address] 65709- 3719 Jan, Exertional dyspnea R06.09 ; Heart palpitations R00.2 ; Hyperlipidemia, unspecified hyperlipidemia type E78.5 ; Hypothyroidism, unspecified type E03.9 and Hypokalemia E87.6 [place] [id number] [place] [address] 07091- 7767 Dec, PTSD (post-traumatic stress disorder) F43.10 ; Depression F32.9 ; Insomnia G47.00 and Bipolar disorder with psychotic features F31.[address] 73889- 7397 Dec, Increased intracranial pressure G93.[address] 04190- 3015 Dec, [address] 00701- 4538 Dec, Shortness of breath R06.[address] 72625- 2623 Dec, Visual disturbance H53.9 and Headache, unspecified headache type R51 [address] 24618- 8817 Dec, Insomnia G47.[address] 96255- 1901 Dec, Murmur R01.[address] 99601- 6938 Dec, Murmur R01.1 ; Tunnel vision, unspecified laterality H53.489 ; Orthostatic hypertension I10 ; Shortness of breath R06.02 and Tachycardia R00.[address] 27683- 1251 Dec, [address] 69157- 1470 Dec, Hypothyroid E03.9 and Bipolar [address] disorder [address]31.[address] 45875- 2236 15 Dec, 2015 Bipolar 1 disorder F31.[address] 36879- 6215 08 Dec, [address] [place] [address]- 2528 October, Acquired hypothyroidism E03.9 ; Depression F32.9 and Insomnia G47.00 [facility] [id number] [place] [address] 39569- 1137 October, [facility] [id number] [place] [address] 47534- 8921 October, Bipolar 1 disorder F31.9 ; PTSD (post-traumatic stress disorder) F43.10 and 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 [facility] [id number] [place] [address] 22695- 6172 Oct, Bipolar 1 disorder F31.9 and Insomnia G47.00 [facility] [id number] [place] [address] 44920- 7366 Oct, [place] [id number] [place] [address] 68100- 9084 Oct, [facility] [id number] [place] [address] 70959- 0291 Aug, Hypothyroid E03.9 [facility] [id number] [place] [address] 77796- 2566 Aug, Encounter for therapeutic drug level monitoring Z51.81 and 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 [facility] [id number] [place] [address] 82490- 9416 Aug, Encounter for therapeutic drug level monitoring Z51.81 [place] [id number] [place] [address] 16390- 3711 Aug, Acquired hypothyroidism E03.9 ; Leg pain M79.606 and Bipolar 1 disorder F31.9 [facility] [id number] [place] [address] 79227- 4496 Aug, [facility] [id number] [place] [address] 77700- 6383 Aug, [facility] [id number] [place] [address] 13328- 1103 Jul, Thyroid disorder E07.9 [facility] [address] 63572- 1626 Jul, Rash R21 ; Abnormal LFTs R94.5 ; Acquired hypothyroidism E03.9 ; Sleep apnea in adult G47.33 and Fatty liver K76.0 [facility] [address] 45126- 7214 Jun, [facility] [address] 59055- 5787 Jun, [facility] [address] 76755- 9084 Jun, Bipolar II disorder F31.81 and Social phobia, generalized F40.11 [facility] [address] [place] [address] 86251- 7031 Mar, Bipolar II disorder 296.89 and Social phobia 300.23 [facility] [id number] [place] [address] 83714- [address] Dec, [facility] [address] [address] Dec, [facility] [id number] [place] [address]- [address] Dec, Bipolar II disorder in partial or unspecified remission 296.89 and Social phobia, generalized 300.23 [facility] [id number] [place] [address]- [address] Oct, 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 [facility] [address] [address] Oct, [facility] [address] [address] Oct, [facility] [address] [address] Aug, [facility] [place] [facility] [address] [id number] [place] [address] Aug, [facility] [place] [facility] [address] [id number] [place] [address] Aug, [facility] [place] [facility] [address] [id number] [place] [address] Aug, [facility] [place] [facility] [address] [id number] [place] [address] Aug, [facility] [place] [facility] [address] [id number] [place] [address] Aug, [facility] [place] [facility] [address] [id number] [place] [address] Aug, [facility] [place] [facility] [address] [id number] [place] [address] Aug, [facility] [place] [facility] [address] [id number] [place] [address] Jul, [facility] [place] [facility] [address] [id number] [place] [address] Jul, [facility] [place] [facility] [address] [facility] [id number] [place] [address] Jul, [facility] [place] [facility] [address] [id number] [place] [address] Jul, [facility] [place] [facility] [address] [id number] [place] [address]- [address] Jul, [facility] [place] [facility] [address] [id number] [place] [address] Jul, [facility] [place] [facility] [address] [facility] [id number] [place] [address]671 Jun, [facility] [place] [facility] [address] [facility] [id number] [place] [address]- [address] Jun, [facility] [place] [facility] [address] [id number] [place] [address] Jun, [facility] [place] [facility] [address] [id number] [place] [address]- [address] Jun, [facility] [place] [facility] [address] [id number] [place] [address] Jun, [facility] [place] [facility] [address] [id number] [place] [address] Jun, [facility] [place] [facility] [address] [id number] [place] [address] Jun, [facility] [place] [facility] [address] [id number] [place] [address] Jun, [facility] [place] [facility] [address] [id number] [place] [address] 76[address] Jun, [facility] [place] [facility] [address] [id number] [place] [address] 8440 Jun, [facility] [place] [facility] [address] [id number] [place] [address] 7028 Jun, [facility] [place] [facility] [address] [id number] [place] [address] 95[address] Jun, [facility] [place] [facility] [address] [id number] [place] [address] 6664 Jun, [facility] [place] [facility] [address] [id number] [place] [address] 8220 Jun, [facility] [place] [facility] [address] [id number] [place] [address] 72[address] Jun, [facility] [place] [facility] [address] [id number] [place] [address] 1974 Jun, [facility] [place] [facility] [address] [id number] [place] [address] 7[address] May, [facility] [place] [facility] [address] [id number] [place] [address] 4[address] May, [facility] [place] [facility] [address] [id number] [place] [address] May, [facility] [place] [facility] [address] [id number] [place] [address] 5330 May, [facility] [place] [facility] [address] [id number] [place] [address] May, [facility] [place] [facility] [address] [id number] [place] [address] May, [facility] [place] [facility] [address] [id number] [place] [address] 9132 Apr, [facility] [place] [facility] [address] [id number] [place] [address] 3800 Apr, [facility] [place] [facility] [address] [id number] [place] [address]- 1685 Apr, [facility] [place] [facility] [address] [id number] [place] [address] 5865 Apr, [facility] [place] [facility] [address] [id number] [place] [address] 0245 Apr, [facility] [place] [facility] [address] [id number] [place] [address]- 4[address] Apr, [facility] [place] [facility] [address] [id number] [address] Mar, [facility] [place] [facility] [address] [id number], [place] [address] 1453 Mar, [facility] [place] [facility] [address] [id number] [place] [address] 2410 Mar, [facility] [place] [facility] [address] [id number] [place] [address]- 4189 Mar, [facility] [place] [facility] [address] [id number] [place] [address] 7822 Jan, [facility] [place] [facility] [address] [id number] [place] [address] 1194 Jan, [facility] [address] [id number] [place] [address] 7892 Jan, [facility] [place] [facility] [address] [id number] [place] [address]- 0915 Jan, [facility] [place] [facility] [address] [id number] [place] [address] 3558 Jan, [facility] [place] [facility] [address] [id number] [place] [address] 6[address] Jan, [facility] [place] [facility] [address] [id number] [place] [address] 4976 Dec, [facility] [place] [facility] [address] [id number] [place] [address] 8271 Dec, [facility] [place] [facility] [address] [id number] [place] [address] 9949 Dec, [facility] [place] [facility] [address] [id number] [place] [address] 1168 Dec, [facility] [place] [facility] [address] [id number] [place] [address]- 1360 Dec, [facility] [place] [facility] [address] [id number] [place] [address] 8215 Dec, [facility] [place] [facility] [address] [id number] [place] [address] 3649 October, [facility] [place] [facility] [address] [id number] [place] [address] 9085 October, [facility] [place] [facility] [address] [id number] [place] [address]- 7813 October, [facility] [place] [facility] [address] [id number] [place] [address] 4612 October, [facility] [place] [facility] [address] [id number] [place] [address] 1960 October, [facility] [place] [facility] [address] [id number] [place] [address] 7822 October, [facility] [place] [facility] [address] [id number] [place] [address]- 9975 October, [facility] [place] [facility] [address] [id number] [place] [address] October, [facility] [place] [facility] [address] [id number] [place] [address]- 0208 Oct, [facility] [place] [facility] [address] [id number] [place] [address]- 5309 Oct, [facility] [place] [facility] [address] [id number] [place] [address]- 3145 Oct, [facility] [place] [facility] [address] [id number] [place] [address] 7628 Oct, [facility] [place] [facility] [address] [id number] [place] [address]- 8543 Oct, [facility] [place] [facility] [address] [id number] [place] [address]- 8253 Aug, [facility] [place] [facility] [address] [id number] [place] [address]- 4062 Aug, [facility] [place] [facility] [address] [id number] [place] [address]- 3120 Aug, [facility] [place] [facility] [address] [id number] [place] [address]- 0398 Aug, [facility] [place] [facility] [address] [id number] [place] [address]- 6290 Aug, [facility] [place] [facility] [address] [id number] [place] [address]- 0185 Aug, [facility] [place] [facility] [address] [id number] [place] [address]- 4402 Jul, [facility] [place] [facility] [address] [id number] [place] [address]- [address]252 07 Jul, 2013 [facility] [address] [id number] [place] [address]- 5436 Jul, [facility] [place] [facility] [address] [id number] [place] [address]- 7376 Jul, [facility] [place] [facility] [address] [id number] [place] [address]- 6094 Jul, [facility] [place] [facility] [address] [id number] [place] [address]- 2129 Jul, [facility] [place] [facility] [address] [id number] [place] [address]- 3902 Jun, [facility] [place] [facility] [address] [id number] [place] [address] 3934 Jun, [facility] [place] [facility] [address] [id number] [place] [address]- 4228 Jun, [facility] [place] [facility] [address] [id number] [place] [address]- 8802 Jun, [facility] [place] [facility] [address] [id number] [place] [address]- 3320 Jun, [facility] [place] [facility] [address] [facility] [id number] [place] [address]- 7192 Jun, [facility] [place] [facility] [address] [id number] [place] [address]- 1487 May, [facility] [place] [facility] [address] [id number] [place] [address]- 1092 May, [facility] [place] [facility] [address] [id number] [place] [address]- 7793 Apr, [facility] [place] [facility] [address] [id number] [place] [address]- 6246 Apr, [facility] [place] [facility] [address] [id number] [place] [address]- 9588 Apr, [facility] [place] [facility] [address] [id number] [place] [address]- 9739 Apr, 2012 [facility] [place] [facility] [address] [id number] [place] [address]- 4484 Apr, [facility] [place] [facility] [address] [id number] [place] [address]- 9170 Apr, [facility] [place] [facility] [address] [id number] [place] [address]- 3555 Apr, [facility] [place] [facility] [address] [id number] [place] [address]- 6473 Apr, [facility] [place] [facility] [address] [id number] [place] [address]- 5678 Apr, [facility] [place] [facility] [address] [id number] [place] [address]- 0418 Apr, [facility] [place] [facility] [address] [id number] [place] [address]- 9134 Apr, [facility] [place] [facility] [address] [id number] [place] [address]- 2149 23 Mar, 2012 [facility] [place] [facility] [address] [id number] [place] [address]- 7133 20 Mar, 2012 [facility] [place] [facility] [address] [id number] [place] [address]- 6986 20 Mar, 2012 [facility] [place] [facility] [address] [id number] [place] [address]- 2242 14 Sep, 2012 [facility] [place] [facility] [address] [id number] [place] [address]- 1722 12 Sep, 2012 [facility] [place] [facility] [address] [id number] [place] [address]- 2548 06 Sep, 2012 [facility] [place] [facility] [address] [id number] [place] [address]- 2541 06 Sep, 2012 [facility] [place] [facility] [address] [id number] [place] [address]- 8127 Jan, [facility] [place] [facility] [address] [id number] [place] [address]- 9078 Jan, [facility] [place] [facility] [address] [id number] [place] [address]- 8777 Jan, [facility] [place] [facility] [address] [id number] [place] [address]- 5796 Jan, [facility] [place] [facility] [address] [id number] [place] [address]- 7971 Jan, [facility] [place] [facility] [address] [id number] [place] [address]- 6508 Jan, [facility] [place] [facility] [address] [id number] [place] [address]- 7171 Jan, [facility] [place] [facility] [address] [id number] [place] [address]- 2081 Dec, [facility] [place] [facility] [address] [id number] [place] [address]- 1965 Dec, [facility] [place] [facility] [address] [id number] [place] [address]- 9406 Dec, [facility] [place] [facility] [address] [id number] [place] [address]- 9240 Dec, [facility] [place] [facility] [address] [id number] [place] [address]- 8823 Dec, [facility] [place] [facility] [address] [id number] [place] [address]- 5747 Dec, [facility] [place] [facility] [address] [id number] [place] [address]- 0936 October, [facility] [place] [facility] [address] [id number] [place] [address]- 1719 October, [facility] [place] [facility] [address] [id number] [place] [address]- 1227 October, [facility] [place] [facility] [address] [id number] [place] [address]- 3780 October, [facility] [address] [id number] [place] [address]- 2981 Oct, [facility] [address] [id number] [place] [address] 2546 Oct, [facility] [address] [id number] [place] [address]- 3577 27 Aug, 2012 [facility] [address] [id number] [place] [address]- 3309 26 Aug, 2012 [facility] [address] [id number] [place] [address]- 6311 21 Aug, 2012 [facility] [address] [id number] [place] [address]- 8669 Aug, [facility] [address] [id number] [place] [address]- 4712 Aug, [facility] [address] [id number] [place] [address]- 6895 Aug, [facility] [address] [id number] [place] [address]- 1428 Aug, [facility] [address] [facility] [id number] [place] [address]- 4466 Aug, [facility] [address] [id number] [place] [address]- 0359 Aug, [facility] [address] [id number] [place] [address] 2549 Aug, [facility] [place] [facility] [address] [id number] [place] [address]- 2099 10 Aug, 2012 [facility] [address] [facility] [id number] [place] [address]- 2546 08 Aug, 2012 [facility] [address] [facility] [id number] [place] [address]- 7021 Aug, [facility] [address] [id number] [address]- 6845 Aug, [facility] [id number], [place] [address]- 5890 Jul, [facility] [address] [id number], [place] [address] 0809 Jul, [facility] [id number], [place] [address]- 6776 Jul, [facility] [id number], [place] [address] 1981 Jul, [facility] [id number], [place] [address]- 6120 Jun, [facility] [id number], [place] [address]- 5808 Jun, [facility] [id number], [place] [address]- 8180 Jun, [facility] [id number], [place] [address]- 0021 Jun, [facility] [id number], [place] [address]- 9716 May, [facility] [address] [id number], [place] [address]- 6952 May, IMMUNIZATIONS No Known Immunizations SOCIAL HISTORY Never Assessed REASON FOR VISIT Repository Medication/Controlled refill PLAN OF CARE VITAL SIGNS MEDICATIONS Medication Instructions Dosage Frequency Start Date End Date Duration Status Neurontin 800 MG Orally 2 times a day 1 tablet 12h Aug, 30 days Active Clonazepam 1 MG Orally 3 times [...]
--- OUTSIDE RECORDS SUMMARY | 2018-09-02 18:08 | XMS REPORT ---
Author Author JOSE LARRY [facility] Address [address] [place] [address] Care Team Providers Care Scrap Stripper Hand Name Role Phone JOSE LARRY Unavailable PROBLEMS Type Condition ICD9-CM Code KSR15-HS Code Onset Dates Condition Status SNOMED Code Problem Panic disorder with agoraphobia F40.01 Active 66958681 Problem Depressive disorder, not elsewhere classified F32.9 Active 17735341 Problem Chronic posttraumatic stress disorder F43.12 Active 183722523 Problem Insomnia G47.00 Active 673424644 Problem Obesity E66.9 Active 540281111 Problem Other chronic pain G89.29 Active 84139683 Problem Fatty liver K76.0 Active 976557432 Problem Abuse, drug or alcohol F19.10 Active 67526399 Problem Panic disorder without agoraphobia F41.0 Active 30469633 Problem Panic disorder F41.0 Active 900461826 Problem Hypothyroid E03.9 Active 33424203 Problem BMI 50.0-59.9, adult Z68.43 Active 008600093 Problem Restless legs syndrome G25.81 Active 090732805 Problem Encounter for therapeutic drug level monitoring Z51.81 Active 548016664 Problem Neuropathy G62.9 Active 826888502 Problem 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 Active 67092854 Problem Tachycardia R00.0 Active 7051788 Problem Murmur R01.1 Active 762709135 Problem Orthostatic hypertension I10 Active 70017917 Problem Shortness of breath R06.02 Active 912086254 Problem Sleep apnea in adult G47.33 Active 53608632 Problem Tunnel vision, unspecified laterality H53.489 Active 881161686 Problem Undifferentiated schizophrenia F20.3 Active [id number] ALLERGIES No Known Allergies ENCOUNTERS Encounter Location Date Diagnosis [facility] [address] [facility] [id number] [address] Apr, [facility] [address], [place] [address] Jan, [facility] [address], [place] [address] 8782 Jan, Undifferentiated schizophrenia F20.3 [facility] [address], [place] [address] 2976 Dec, [facility] [id number] [place] [address] 69023- 4680 Dec, [facility] [address], [place] [address] 8263 Dec, [facility] [address], [place] [address] 9723 Dec, Undifferentiated schizophrenia F20.3 ; Panic disorder with agoraphobia F40.01 ; Chronic posttraumatic stress disorder F43.12 and BMI 50.0- 59.9, adult Z68.43 [facility] [address], [place] [address] Dec, [facility] [address] [place] [address] 22955- 1731 Dec, Undifferentiated schizophrenia F20.3 ; Insomnia G47.00 and Thyroid disorder E07.9 [facility] [address], [place] [address] 6973 Dec, Undifferentiated schizophrenia F20.3 [facility] [address], [place] [address] 8025 Dec, [facility] [address], [place] [address]- 3336 Dec, [facility] [address], [place] [address] 1780 Dec, BMI 50.0-59.9, adult Z68.43 ; Undifferentiated schizophrenia F20.3 ; Panic disorder without agoraphobia F41.0 and Chronic posttraumatic stress disorder F43.12 [facility] [address], [place] [address] 9551 Dec, [facility] [id number] [place] [address] 56102- 4724 October, [facility] [id number] [place] [address] 82908- 4639 October, Pain in right shoulder M25.511 and Other chronic pain G89.29 [facility] [id number] [place] [address] 08166- 4726 October, Hypothyroid E03.9 [facility] [id number] [place] [address] 02831- 9195 Oct, Undifferentiated schizophrenia F20.3 [facility] [id number] [place] [address] 12194- 0493 Oct, [facility] [id number] [place] [address] 56403- 9445 Oct, [facility] [id number] [place] [address] 34895- 3476 Aug, Undifferentiated schizophrenia F20.3 [facility] [id number] [place] [address] 28608- 2295 Aug, [facility] [id number] [place] [address] 94091- 3302 Aug, Undifferentiated schizophrenia F20.3 ; Panic disorder with agoraphobia F40.01 ; Chronic posttraumatic stress disorder F43.12 and BMI 50.0- 59.9, adult Z68.43 [facility] [address], [place] [address]- 9663 Aug, [facility] [id number] [place] [address] 66692- 5646 Aug, [facility] [address], [place] [address]- 9457 Aug, Undifferentiated schizophrenia F20.3 [facility] [id number] [place] [address] 61197- 6086 12 Aug, 2017 Hypothyroid E03.9 [facility] [id number] [place] [address] 22478- 8946 Jul, Undifferentiated schizophrenia F20.3 [facility] [id number] [place] [address] 62717- 5586 Jul, [facility] [id number] [place] [address] 44953- 7350 Jul, Undifferentiated schizophrenia F20.3 ; Chronic posttraumatic stress disorder F43.12 ; Panic disorder with agoraphobia F40.01 and BMI 50.0-59.9, adult Z68.43 [facility] [id number] [place] [address] 75025- 3173 Jul, [facility] [address] [address]- 1933 Jul, Acute pain of right shoulder M25.511 ; High risk medication use Z79.899 ; Needle stick injury W27.3XXA ; Hypothyroid E03.9 and BMI 50.0-59.9 , adult Z68.43 [facility] [id number] [place] [address] 03703- 2842 Jun, Undifferentiated schizophrenia F20.3 [facility] [id number] [place] [address] 14246- 1966 Jun, Undifferentiated schizophrenia F20.3 ; Panic disorder without agoraphobia F41.0 ; Chronic posttraumatic stress disorder F43.12 and BMI 50.0-59.9, adult Z68.43 [facility] [id number] [place] [address] 10652- 9295 May, [facility] [id number] [place] [address] 75997- 8736 May, [facility] [id number] [place] [address] 74223- 9977 May, Undifferentiated schizophrenia F20.3 [facility] [address], [place] [address]- 9674 May, [facility] [id number] [place] [address] 89775- 1414 May, [facility] [address], [place] [address]- 8874 May, Hypothyroid E03.9 [facility] [id number] [place] [address] 05881- 3363 May, [facility] [id number] [place] [address] 42720- 4951 May, [facility] [id number] [place] [address] 27741- 7627 May, Chronic posttraumatic stress disorder F43.12 ; Panic disorder with agoraphobia F40.01 ; Undifferentiated schizophrenia F20.3 ; BMI 40.0-44.9, adult Z68.41 and Obesity E66.9 [facility] [address], [place] [address]- 7076 May, Shortness of breath R06.02 [facility] [id number] [place] [address] 31062- 7729 May, [facility] [address], [place] [address]- 8129 Apr, Undifferentiated schizophrenia F20.3 [facility] [address], [place] [address]- 4680 Apr, [facility] [address], [place] [address]- 9022 Apr, [facility] [id number] [place] [address] 57791- 1196 Mar, Undifferentiated schizophrenia F20.3 ; Panic disorder without agoraphobia F41.0 and Chronic posttraumatic stress disorder F43.12 [facility] [address] [address]- 9422 Mar, Undifferentiated schizophrenia F20.3 [facility] [address] [place] [address] 08627- 3267 18 Mar, 2017 [facility] [address] [place] [address] 56315- 5841 08 Mar, 2017 [facility] [id number] [place] [address] 07260- 1561 Mar, [facility] [id number] [place] [address] 29048- 3520 Jan, Undifferentiated schizophrenia F20.3 [facility] [id number] [place] [address] 74493- 7858 Jan, [facility] [id number] [place] [address] 52726- 4259 Jan, [facility] [address] [place] [address] 85671- 6592 Jan, [address] [id number] [address] Dec, Needle stick injury W27.3XXA [facility] [address] [place] [address] 46380- 6785 Dec, Needle stick injury W27.3XXA [facility] [address] [place] [address] 72917- 0697 Dec, Undifferentiated schizophrenia F20.3 [facility] [address], [place] [address]- 3174 Dec, [facility] [address] [place] [address] 24987- 6512 Dec, [facility] [address] [place] [address] 45635- 9799 Dec, Undifferentiated schizophrenia F20.3 ; Panic disorder with agoraphobia F40.01 and Chronic posttraumatic stress disorder F43.12 [facility] [address], [place] [address]- 4420 Dec, [facility] [id number] [place] [address] 72730- 5551 October, [facility] [id number] [place] [address] 82589253- 2373 October, Undifferentiated schizophrenia F20.3 [facility] [id number] [place] [address] 24236- 1568 October, [facility] [id number] [place] [address] 15847- 5962 October, [facility] [id number] [place] [address] 38309- 7169 Oct, Undifferentiated schizophrenia F20.3 ; Panic disorder with agoraphobia F40.01 ; Chronic posttraumatic stress disorder F43.12 and Obesity E66.9 [facility] [id number] [place] [address] 59146- 4241 Oct, [facility] [address] [address]- 5239 Oct, [facility] [id number] [place] [address] 91388- 5501 Aug, Undifferentiated schizophrenia F20.3 [facility] [address], [place] [address]- 3468 Aug, [facility] [address], [place] [address]- 3352 Aug, Muscle spasm M62.838 [facility] [address], [place] [address]- 2454 Aug, Undifferentiated schizophrenia F20.3 [facility] [address] 7419 Aug, Undifferentiated schizophrenia F20.3 ; Panic disorder with agoraphobia F40.01 ; Chronic posttraumatic stress disorder F43.12 ; High risk medication use Z79.899 and 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 [facility] [address], [place] [address]- 3553 Aug, Undifferentiated schizophrenia F20.3 [facility] [address], [place] [address]- 9220 Aug, [facility] [id number] [place] [address] 08031- 8778 14 Aug, 2016 Acute non-recurrent maxillary sinusitis J01.00 [facility] [id number] [place] [address] 62985- 3013 Aug, [facility] [id number] [place] [address] 01412- 3813 Aug, [facility] [id number] [place] [address] 41654- 2045 Jul, Undifferentiated schizophrenia F20.3 [facility] [address] [place] [address] 47102- 5745 Jul, Schizophrenia, undifferentiated F20.3 ; 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 ; Post-traumatic stress disorder F43.10 ; Panic disorder F41.0 and Depressive disorder, not elsewhere classified F32.9 [facility] [address], [place] [address]- 2194 Jul, [facility] [address] [place] [address] 47172- 6402 Jul, Schizophrenia, undifferentiated F20.3 ; 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 ; Post-traumatic stress disorder F43.10 ; Panic disorder F41.0 and Depressive disorder, not elsewhere classified F32.9 [facility] [address] [place] [address] 94871- 8556 Jul, [facility] [address] [place] [address] 50948- 6030 Jul, Undifferentiated schizophrenia F20.3 ; Panic disorder with agoraphobia F40.01 ; 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 ; Obesity E66.9 and Chronic posttraumatic stress disorder F43.12 [facility] [id number] [place] [address] 97093- 3478 Jun, [facility] [id number] [place] [address] 97362- 5520 Jun, [facility] [id number] [place] [address] 71938- 3086 Jun, Dental caries K02.9 [facility] [id number] [place] [address] 58931- 1895 Jun, Undifferentiated schizophrenia F20.3 [facility] [id number] [place] [address] 56368- 7658 30 May, 2016 [facility] [id number] [place] [address] 34851- 3255 29 May, 2016 Undifferentiated schizophrenia F20.3 ; Panic disorder with agoraphobia F40.01 and Chronic post-traumatic stress disorder (PTSD) F43.12 [facility] [id number] [place] [address] 74528- 6872 May, [facility] [id number] [place] [address] 41515- 1486 May, Undifferentiated schizophrenia F20.3 [facility] [id number] [place] [address] 15416- 1494 May, [facility] [id number] [place] [address] 99638- 7352 07 May, 2016 Dental examination Z01.20 [facility] [id number] [place] [address] 85364- 1708 Apr, Undifferentiated schizophrenia F20.3 ; PTSD (post-traumatic stress disorder) F43.10 and Obesity E66.9 [facility] [id number] [place] [address] 84480- 5171 18 Apr, 2016 [facility] [id number] [place] [address] 29802- 3665 Mar, [facility] [id number] [place] [address] 43250- 7807 Mar, [facility] [id number] [place] [address] 04211- 0772 Jan, Shortness of breath R06.02 and Bipolar disorder with psychotic features F31.9 [facility] [address] 14937- 6214 Jan, [facility] [id number] [place] [address] 65942- 9912 Jan, Increased intracranial pressure G93.2 ; Visual disturbance H53.9 and Bipolar II disorder F31.81 [facility] [id number] [place] [address] 13784- 7819 Jan, [facility] [address] 91717- 6918 Jan, [facility] [id number] [place] [address] 07176- 8432 Jan, [facility] [id number] [place] [address] 39541- 3698 Jan, Acquired hypothyroidism E03.9 ; Depression F32.9 and Insomnia G47.00 [facility] [id number] [place] [address] 90337- 3131 Jan, Exertional dyspnea R06.09 ; Heart palpitations R00.2 ; Hyperlipidemia, unspecified hyperlipidemia type E78.5 ; Hypothyroidism, unspecified type E03.9 and Hypokalemia E87.6 [facility] [address] [place] [address] 15752- 8467 Dec, PTSD (post-traumatic stress disorder) F43.10 ; Depression F32.9 ; Insomnia G47.00 and Bipolar disorder with psychotic features F31.9 [facility] [id number] [place] [address] 28224- 7199 Dec, Increased intracranial pressure G93.2 [facility] [id number] [place] [address] 39568- 5204 Dec, [facility] [id number] [place] [address] 54547- 6282 Dec, Shortness of breath R06.02 [facility] [address] [place] [address] 75917- 1546 Dec, Visual disturbance H53.9 and Headache, unspecified headache type R51 [facility] [address] [place] [address] 44386- 0748 Dec, Insomnia G47.00 [facility] [address] 99358- 3644 Dec, Murmur R01.1 [facility] [address] [place] [address] 64454- 8010 Dec, Murmur R01.1 ; Tunnel vision, unspecified laterality H53.489 ; Orthostatic hypertension I10 ; Shortness of breath R06.02 and Tachycardia R00.0 [facility] [id number] [place] [address] 43800- 3397 Dec, [facility] [id number] [place] [address] 78383- 8154 Dec, Hypothyroid E03.9 and Bipolar 1 disorder F31.9 [facility] [id number] [place] [address] 29921- 3571 Dec, Bipolar 1 disorder F31.9 [facility] [id number] [place] [address] 37951- 8009 Dec, [facility] [id number] [place] [address] 16766- 6983 October, Acquired hypothyroidism E03.9 ; Depression F32.9 and Insomnia G47.00 [facility] [id number] [place] [address] 03946- 5407 October, [facility] [address] [place] [address] 07847- 0973 October, Bipolar 1 disorder F31.9 ; PTSD (post-traumatic stress disorder) F43.10 and 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 [facility] [id number] [place] [address] 65150- 6271 Oct, Bipolar 1 disorder F31.9 and Insomnia G47.00 [facility] [id number] [place] [address] 39482- 8264 Oct, [facility] [id number] [place] [address] 47910- 3735 Oct, [facility] [id number] [place] [address] 19109- 7023 Aug, Hypothyroid E03.9 [facility] [id number] [place] [address] 94740- 1853 Aug, Encounter for therapeutic drug level monitoring Z51.81 and Other mcfp (current) drug therapy Z79.899 [facility] [id number] [place] [address] 61010- 7427 Aug, Encounter for therapeutic drug level monitoring Z51.81 [facility] [id number] [place] [address] 90185- 6369 Aug, Acquired hypothyroidism E03.9 ; Leg pain M79.606 and Bipolar 1 disorder F31.9 [facility] [address], [place] [address]- 9605 Aug, [facility] [id number] [place] [address] 96346- 4687 Aug, [facility] [id number] [place] [address] 94449- 5285 Jul, Thyroid disorder E07.9 [facility] [id number] [place] [address] 51428- 3792 Jul, Rash R21 ; Abnormal LFTs R94.5 ; Acquired hypothyroidism E03.9 ; Sleep apnea in adult G47.33 and Fatty liver K76.0 [facility] [address] 64069- 8374 Jun, [facility] [id number] [place] [address] 44407- 8224 Jun, [facility] [address] 92303- 4460 Jun, Bipolar II disorder F31.81 and Social phobia, generalized F40.11 [facility] [address] 23161- 6489 Mar, Bipolar II disorder 296.89 and Social phobia 300.23 [facility] [address] 36118- 6732 Dec, [facility] [address] 37105- 5008 Dec, [facility] [address] 95518- 7011 Dec, Bipolar II disorder in partial or unspecified remission 296.89 and Social phobia, generalized 300.23 [facility] [id number] [place] [address] 91508- 8209 Oct, 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 [facility] [id number] [place] [address] 16850- 9792 Oct, [facility] [address] 43523- 4737 Oct, [facility] [address] 21342- 1670 Aug, [facility] [address] 88545- 9304 Aug, [facility] [address] 93687- 7056 Aug, [facility] [place] [facility] [address] [id number] [place] [address]- 5702 Aug, [facility] [place] [facility] [address] [id number] [place] [address]- 1018 Aug, [facility] [place] [facility] [address] [id number] [place] [address]- 1202 Aug, [facility] [place] [facility] [address] [id number] [place] [address]- 8563 Aug, [facility] [place] [facility] [address] [id number] [place] [address]- 4835 Aug, [facility] [place] [facility] [address] [id number] [place] [address]- 3935 Jul, [facility] [place] [facility] [address] [id number] [place] [address]- 9306 Jul, [facility] [place] [facility] [address] [id number] [place] [address]- 0281 Jul, [facility] [place] [facility] [address] [id number] [place] [address]- 4246 Jul, [facility] [place] [facility] [address] [id number] [place] [address]- 2178 Jul, [facility] [place] [facility] [address] [id number] [place] [address]- 4076 Jul, [facility] [place] [facility] [address] [id number] [place] [address]- 8307 Jun, [facility] [place] [facility] [address] [id number] [place] [address] Jun, [facility] [place] [facility] [address] [id number] [place] [address] Jun, [facility] [place] [facility] [address] [id number] [place] [address] Jun, [facility] [place] [facility] [address] [id number] [place] [address] Jun, [facility] [address] [id number] [place] [address] Jun, [facility] [place] [facility] [address] [id number] [place] [address] Jun, [facility] [place] [facility] [address] [id number] [place] [address] Jun, [facility] [place] [facility] [address] [id number] [place] [address] Jun, [facility] [place] [facility] [address] [id number] [place] [address] Jun, [facility] [place] [facility] [address] [id number] [place] [address] Jun, [facility] [place] [facility] [address] [id number] [place] [address] Jun, [facility] [place] [facility] [address] [id number] [place] [address] Jun, [facility] [place] [facility] [address] [id number] [place] [address] Jun, [facility] [place] [facility] [address] [id number] [place] [address] Jun, [facility] [place] [facility] [address] [id number] [place] [address] Jun, [facility] [place] [facility] [address] [id number] [place] [address] May, [facility] [place] [facility] [address] [id number] [place] [address] May, [facility] [place] [facility] [address] [id number] [place] [address] May, [facility] [place] [facility] [address] [id number] [place] [address] May, [facility] [place] [facility] [address] [id number] [place] [address] May, [facility] [place] [facility] [address] [id number] [place] [address] May, [facility] [place] [facility] [address] [id number] [place] [address] Apr, [facility] [place] [facility] [address] [id number] [place] [address] Apr, [facility] [place] [facility] [address] [id number] [place] [address] Apr, [facility] [place] [facility] [address] [id number] [place] [address] Apr, [facility] [place] [facility] [address] [id number] [place] [address] Apr, [facility] [place] [facility] [address] [id number] [place] [address] 8340 Apr, [facility] [place] [facility] [address] [id number] [place] [address] Mar, [facility] [place] [facility] [address] [id number] [place] [address] 9426 Mar, [facility] [place] [facility] [address] [id number] [place] [address]196 Mar, [facility] [place] [facility] [address] [id number] [place] [address] Mar, [facility] [place] [facility] [address] [id number] [place] [address] 0417 Jan, [facility] [place] [facility] [address] [id number] [place] [address] 93[address] Jan, [facility] [place] [facility] [address] [id number] [place] [address] 3798 Jan, [facility] [place] [facility] [address] [id number] [place] [address] 27[address] Jan, [facility] [place] [facility] [address] [id number] [place] [address] 2704 Jan, [facility] [place] [facility] [address] [id number] [place] [address] 0825 Jan, [facility] [place] [facility] [address] [id number] [place] [address] 0894 Dec, [facility] [place] [facility] [address] [id number] [place] [address] 7409 Dec, [facility] [place] [facility] [address] [id number] [place] [address] 9358 Dec, [facility] [place] [facility] [address] [id number] [place] [address]- 9029 Dec, [facility] [place] [facility] [address] [id number] [place] [address]200 Dec, [facility] [place] [facility] [address] [id number] [place] [address] Dec, [facility] [place] [facility] [address] [id number] [place] [address] 58[address] October, [facility] [place] [facility] [address] [id number] [place] [address] October, [facility] [place] [facility] [address] [id number] [place] [address]- 3569 October, [facility] [place] [facility] [address] [id number] [place] [address] 1078 October, [facility] [place] [facility] [address] [id number] [place] [address]- 1292 October, [facility] [place] [facility] [address] [id number] [place] [address] 8227 October, [facility] [place] [facility] [address] [id number] [place] [address] 3720 October, [facility] [place] [facility] [address] [id number] [place] [address] 1241 October, [facility] [place] [facility] [address] [id number] [place] [address] 8895 Oct, [facility] [place] [facility] [address] [id number] [place] [address] 1651 Oct, [facility] [place] [facility] [address] [id number] [place] [address]- 7181 Oct, [facility] [place] [facility] [address] [id number] [place] [address] 7649 Oct, [facility] [place] [facility] [address] [id number] [place] [address]1 Oct, [facility] [place] [facility] [address] [id number] [place] [address] 6724 Aug, [facility] [place] [facility] [address] [id number] [place] [address] 6238 Aug, [facility] [place] [facility] [address] [id number] [place] [address] 0883 Aug, [facility] [place] [facility] [address] [id number] [place] [address] 6946 Aug, [facility] [place] [facility] [address] [id number] [place] [address]- 5327 Aug, [facility] [place] [facility] [address] [id number] [place] [address] Aug, [facility] [place] [facility] [address] [id number] [place] [address] 3917 Jul, [facility] [place] [facility] [address] [id number] [place] [address] 9487 Jul, [facility] [place] [facility] [address] [id number] [place] [address] 8913 Jul, [facility] [place] [facility] [address] [id number], [place] [address] Jul, [facility] [place] [facility] [address] [id number] [place] [address] 8734 Jul, [facility] [place] [facility] [address] [id number] [place] [address] Jul, [facility] [place] [facility] [address] [id number] [place] [address]- 1466 Jun, [facility] [place] [facility] [address] [id number] [place] [address]- 6705 Jun, [facility] [place] [facility] [address] [id number] [place] [address]- 0873 Jun, [facility] [place] [facility] [address] [id number] [place] [address]- 0996 Jun, [facility] [place] [facility] [address] [id number] [place] [address]- 5783 Jun, [facility] [place] [facility] [address] [id number] [place] [address]- 7536 Jun, [facility] [place] [facility] [address] [id number] [place] [address]- 0487 May, [facility] [place] [facility] [address] [id number] [place] [address]- 4764 May, [facility] [place] [facility] [address] [id number], [place] [address] Apr, [facility] [place] [facility] [address] [id number], [place] [address]- [address] Apr, [facility] [place] [facility] [address] [id number] [place] [address]- 9386 Apr, [facility] [place] [facility] [address] [id number] [place] [address] 1667 Apr, [facility] [place] [facility] [address] [id number] [place] [address] 1907 Apr, [facility] [place] [facility] [address] [id number] [place] [address]- 0985 18 Apr, 2012 [facility] [address] [id number] [place] [address] 3250 18 Apr, 2012 [facility] [place] [facility] [address] [id number] [place] [address]- 2805 18 Apr, 2012 [facility] [address] [id number] [place] [address]- 8794 18 Apr, 2012 [facility] [place] [facility] [address] [id number] [place] [address]- 0166 04 Apr, 2013 [facility] [address] [id number] [place] [address]- 1565 02 Apr, 2013 [facility] [address] [id number] [place] [address]- 1003 23 Mar, 2012 [facility] [place] [facility] [address] [id number] [place] [address]- 5129 20 Mar, 2012 [facility] [address] [id number] [place] [address]- 1232 20 Mar, 2012 [facility] [place] [facility] [address] [id number] [place] [address]- 7659 14 Mar, [address] [facility] [address] [id number] [place] [address]- [address] 12 Mar, 2012 [facility] [place] [facility] [address] [id number] [place] [address]- 2547 06 Mar, 2012 [facility] [place] [facility] [address] [id number] [place] [address]- 2541 06 Mar, 2012 [facility] [place] [facility] [address] [id number] [place] [address]- 4351 19 Jan, 2013 [facility] [place] [facility] [address] [id number] [place] [address]- 9155 14 Jan, 2013 [facility] [place] [facility] [address] [id number] [place] [address]- 1475 Jan, [facility] [address] [id number] [place] [address]- 0396 Jan, [facility] [place] [facility] [address] [id number] [place] [address]- 2012 Jan, [facility] [place] [facility] [address] [id number] [place] [address]- 8130 Jan, [facility] [place] [facility] [address] [id number] [place] [address]- 8397 Jan, [facility] [place] [facility] [address] [id number] [place] [address]- 2168 Dec, [facility] [place] [facility] [address] [id number] [place] [address]- 0162 Dec, [facility] [place] [facility] [address] [id number] [place] [address]- 5384 Dec, [facility] [place] [facility] [address] [id number] [place] [address]- 7618 Dec, [facility] [place] [facility] [address] [id number] [place] [address]- 8623 Dec, [facility] [place] [facility] [address] [id number] [place] [address]- 5171 Dec, [facility] [place] [facility] [address] [id number] [place] [address]- 8972 October, [facility] [place] [facility] [address] [id number] [place] [address]- 6342 October, [facility] [place] [facility] [address] [id number] [place] [address]- 4818 October, [facility] [place] [facility] [address] [id number] [place] [address]- 5288 October, [facility] [place] [facility] [address] [id number] [place] [address]- 6783 Oct, [facility] [place] [facility] [address] [id number] [place] [address]- 4487 09 Oct, 2012 [facility] [address] [id number] [place] [address]- 3037 27 Aug, 2012 [facility] [place] [facility] [address] [id number] [place] [address]- 4530 26 Aug, 2012 [facility] [place] [facility] [address] [id number] [place] [address]- 2436 21 Aug, 2012 [facility] [place] [facility] [address] [id number] [place] [address]- 2547 20 Aug, 2012 [facility] [place] [facility] [address] [id number] [place] [address]- 9275 18 Aug, 2012 [facility] [place] [facility] [address] [id number] [place] [address]- 5948 07 Aug, 2012 [facility] [place] [facility] [id number] [place] [address]- [address]108 Aug, [facility] [place] [facility] [address] [id number] [place] [address]- 8627 Aug, [facility] [place] [facility] [id number] [place] [address] Aug, [facility] [place] [facility] [address] [id number] [place] [address]- 3598 Aug, [facility] [place] [facility] [id number] [place] [address]- 5476 Aug, [facility] [place] [facility] [address] [facility] [id number] [place] [address]- 2546 08 Aug, 2012 [facility] [place] [facility] [address] [facility] [id number] [place] [address]- 7334 04 Aug, 2012 [facility] [place] [facility] [address] [facility] [id number] [place] [address]- 2546 04 Aug, 2012 [facility] [place] [facility] [id number] [place] [address]- 2936 Jul, [facility] [address] [id number], [place] [address] 2407 Jul, [facility] [id number], [place] [address]- 9827 Jul, [facility] [address] [id number], [place] [address]- 4074 Jul, [facility] [id number], [place] [address]- 8291 Jun, [facility] [id number], [place] [address]- 2567 Jun, [facility] [id number], [place] [address]- 2155 Jun, [facility] [id number], [place] [address]- 9464 Jun, [facility] [id number], [place] [address]- 5828 May, [facility] [address] [id number], [place] [address]- 6[address] May, IMMUNIZATIONS No Known Immunizations SOCIAL HISTORY Never Assessed REASON FOR VISIT right shoulder pain WB-MA, Pain starts from shoulder then extends down to the right elbow PLAN OF CARE Activity Details Follow Up prn Reason: VITAL SIGNS Height 67 in 2017-11-13 Weight 348 lbs 2017-11-13 Temperature 97.8 degrees Fahrenheit 2017-11-13 Heart Rate 102 bpm 2017-11-13 Respiratory Rate 20 2017-11-13 BMI 54.50 kg/m2 2017-11-13 Blood pressure systolic 122 mmHg 2017-11-13 Blood pressure diastolic 76 mmHg 2017-11-13 MEDICATIONS Medication Instructions Dosage Frequency Start Date End Date Duration Status Levothyroxine Sodium 100 MCG Orally Once a day 1 tablet 24h Aug, 90 days Active Clonazepam 1 MG Orally 3 times a day for anxiety 1 tablet Apr, 30 days Active Seroquel 50 mg Orally at bedtime for sleep 1 tablet May, 30 days Active Aristada 882 MG/3.2ML Intramuscular once monthly 3.2 ml 10 May, 2016 Active Trazodone HCl 100 mg Orally Once a day 2 tablet at bedtime 24h Active Amberg Carbonate 300 MG Orally 2 times a day (For Mood) 1 tablet in the morning, 2 tablets at bedtime 60 days Active Neurontin 400 MG Orally 2 times a day 2 capsules 12h Aug, 60 days Active Breo Ellipta 100-25 MCG/INH Inhalation Once a day 1 puff 24h Dec, 90 days Active RESULTS No Results PROCEDURES [...]
--- OUTSIDE RECORDS SUMMARY | 2018-09-02 18:08 | XMS REPORT ---
Author Author AMARI HOWARD 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 Name Role Phone AMARI HOWARD Unavailable PROBLEMS Type Condition ICD9-CM Code [id number] Code Onset Dates Condition Status SNOMED Code Problem Panic disorder with agoraphobia F40.01 Active 46842234 Problem Depressive disorder, not elsewhere classified F32.9 Active 64660198 Problem Chronic posttraumatic stress disorder F43.12 Active 509614017 Problem Insomnia G47.00 Active 470750521 Problem Obesity E66.9 Active 799601262 Problem Other chronic pain G89.29 Active 52798617 Problem Fatty liver K76.0 Active 292169233 Problem Abuse, drug or alcohol F19.10 Active 73004363 Problem Panic disorder without agoraphobia F41.0 Active 93915034 Problem Panic disorder F41.0 Active 629772817 Problem Hypothyroid E03.9 Active 64212118 Problem BMI 50.0-59.9, adult Z68.43 Active 187735573 Problem Restless legs syndrome G25.81 Active 219479079 Problem Encounter for therapeutic drug level monitoring Z51.81 Active 537111417 Problem Neuropathy G62.9 Active 691774147 Problem 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 Active 32086975 Problem Tachycardia R00.0 Active 9451503 Problem Murmur R01.1 Active 346514658 Problem Orthostatic hypertension I10 Active 70966956 Problem Shortness of breath R06.02 Active 145043186 Problem Sleep apnea in adult G47.33 Active 34453623 Problem Tunnel vision, unspecified laterality H53.489 Active 758909931 Problem Undifferentiated schizophrenia F20.3 Active 572280741 ALLERGIES No Information ENCOUNTERS Encounter Location Date Diagnosis [facility] [address] [facility] [id number] [address] 18 Apr, 2018 [facility] [address], [place] [address] 8[address] Jan, Undifferentiated schizophrenia F20.3 [facility] [address], [place] [address] 96[address] Jan, [facility] [address], [place] [address] 8964 Jan, Undifferentiated schizophrenia F20.3 [facility] [address], [place] [address] 0[address] Dec, [facility] [address] [address] 0297 Dec, [facility] [id number] [place] [address] 25768- 1295 Dec, [facility] [address] [id number] [address] 0747 Dec, Undifferentiated schizophrenia F20.3 ; Panic disorder with agoraphobia F40.01 ; Chronic posttraumatic stress disorder F43.12 and BMI 50.0- 59.9, adult Z68.43 [facility] [address], [place] [address] Dec, [facility] [address], [place] [address] 1681 Dec, Undifferentiated schizophrenia F20.3 ; Insomnia G47.[address]9 [facility] [address], [place] [address] 1246 Dec, Undifferentiated schizophrenia F20.3 [facility] [address], [place] [address] 8969 Dec, [facility] [address], [place] [address] 30[address] Dec, [facility] [address], [place] [address]- 7627 Dec, BMI 50.0-59.9, adult Z68.43 ; Undifferentiated schizophrenia F20.3 ; Panic disorder without agoraphobia F41.0 and Chronic posttraumatic stress disorder F43.12 [facility] [id number] [address] 4575 Dec, [facility] [address] [id number] [address] 6[address] October, [facility] [id number] [place] [address] 27157- 2071 October, Pain in right shoulder M25.511 and Other chronic pain G89.29 [facility] [id number] [place] [address] 21676- 1936 October, Hypothyroid E03.9 [facility] [id number] [place] [address] 42140- 1309 Oct, Undifferentiated schizophrenia F20.3 [facility] [id number] [place] [address] 06821- 1330 Oct, [facility] [id number] [place] [address] 28933- 5237 Oct, [facility] [id number] [place] [address] 81818- 3412 Aug, Undifferentiated schizophrenia F20.3 [facility] [id number] [place] [address] 78455- 2542 Aug, [facility] [id number] [place] [address] 64888- 2176 Aug, Undifferentiated schizophrenia F20.3 ; Panic disorder with agoraphobia F40.01 ; Chronic posttraumatic stress disorder F43.12 and BMI 50.0- 59.9, adult Z68.43 [facility] [id number] [place] [address] 72573- 6622 05 Aug, 2017 [facility] [id number] [place] [address] 74207- 8311 Aug, [facility] [address] [place] [address] 1402 Aug, Undifferentiated schizophrenia F20.3 [facility] [id number] [place] [address] 09839- 5468 Aug, Hypothyroid E03.9 [facility] [address], [place] [address] 9019 Jul, Undifferentiated schizophrenia F20.3 [facility] [id number] [place] [address] 21219- 5829 Jul, [facility] [id number] [place] [address] 83985- 3234 Jul, Undifferentiated schizophrenia F20.3 ; Chronic posttraumatic stress disorder F43.12 ; Panic disorder with agoraphobia F40.01 and BMI 50.0-59.9, adult Z68.43 [facility] [id number] [place] [address] 18069- 4150 Jul, [facility] [id number] [place] [address] 74083- 1108 08 Jul, 2017 Acute pain of right shoulder M25.511 ; High risk medication use Z79.899 ; Needle stick injury W27.3XXA ; Hypothyroid E03.9 and BMI 50.0-59.9 , adult Z68.43 [facility] [address], [place] [address]- 9588 Jun, Undifferentiated schizophrenia F20.3 [facility] [id number] [place] [address] 30904- 0402 14 Jun, 2017 Undifferentiated schizophrenia F20.3 ; Panic disorder without agoraphobia F41.0 ; Chronic posttraumatic stress disorder F43.12 and BMI 50.0-59.9, adult Z68.43 [facility] [address], [place] [address]- 5751 May, [facility] [id number] [place] [address] 58556- 2916 May, [facility] [address], [place] [address]- 4986 May, Undifferentiated schizophrenia F20.3 [facility] [id number] [place] [address] 34163- 9307 May, [facility] [id number] [place] [address] 47231- 4966 May, [facility] [id number] [place] [address] 22485- 6348 15 May, [address] [facility] [id number] [place] [address] 56986- 3491 May, [facility] [id number] [place] [address] 03293- 2595 May, [facility] [id number] [place] [address] 70670- 4709 May, Chronic posttraumatic stress disorder F43.12 ; Panic disorder with agoraphobia F40.01 ; Undifferentiated schizophrenia F20.3 ; BMI 40.0-44.9, adult Z68.[address] [facility] [id number] [place] [address] 62288- 6736 07 May, 2017 Shortness of [address] R06.02 [facility] [address], [place] [address] 3357 May, [facility] [id number] [place] [address] 97478- 5932 Apr, Undifferentiated schizophrenia F20.3 [facility] [address], [place] [address]- 8887 Apr, [facility] [id number] [place] [address] 29090- 7798 Apr, [facility] [address], [place] [address]- 1356 Mar, Undifferentiated schizophrenia F20.3 ; Panic disorder without agoraphobia F41.0 and Chronic posttraumatic stress disorder F43.12 [facility] [address], [place] [address]- 7619 Mar, Undifferentiated schizophrenia F20.3 [facility] [address] [facility] [id number] [place] [address] 41811- 7743 18 Mar, 2017 [facility] [id number] [place] [address] 25829- 0841 Mar, [facility] [id number] [place] [address] 45796- 3009 Mar, [facility] [id number] [place] [address] 77566- 3950 Jan, Undifferentiated schizophrenia F20.3 [facility] [id number] [place] [address] 27715- 8378 Jan, [facility] [id number] [place] [address] 74717- 9484 Jan, [facility] [id number] [place] [address] 37516- 3756 Jan, [address] [id number] [address] Dec, Needle stick injury W27.3XXA [facility] [address] [place] [address] 30565- 5391 Dec, Needle stick injury W27.3XXA [facility] [address] [place] [address] 63200- 4054 Dec, Undifferentiated schizophrenia F20.3 [facility] [id number] [place] [address] 10888- 6842 Dec, [facility] [id number] [place] [address] 42079- 3307 Dec, [facility] [id number] [place] [address] 25389- 8494 Dec, Undifferentiated schizophrenia F20.3 ; Panic disorder with agoraphobia F40.01 and Chronic posttraumatic stress disorder F43.12 [facility] [address], [place] [address]- 0615 Dec, [facility] [address], [place] [address]- 9866 October, [facility] [id number] [place] [address] 69459- 6489 October, Undifferentiated schizophrenia F20.3 [facility] [id number] [place] [address] 49954- 3680 October, [facility] [id number] [place] [address] 19414- 4018 October, [facility] [address], [place] [address]- 1886 Oct, Undifferentiated schizophrenia F20.3 ; Panic disorder with agoraphobia F40.01 ; Chronic posttraumatic stress disorder F43.[address] [facility] [address], [place] [address]- 6435 Oct, [facility] [id number] [place] [address] 46304- 0023 Oct, [facility] [address], [place] [address]- 9998 Aug, Undifferentiated schizophrenia F20.3 [facility] [address], [place] [address]- 2667 Aug, [facility] [address], [place] [address]- 8063 Aug, Muscle spasm M62.838 [facility] [id number] [address]- 1061 Aug, Undifferentiated schizophrenia F20.3 [facility] [address], [place] [address]- 7619 Aug, Undifferentiated schizophrenia F20.3 ; Panic disorder with agoraphobia F40.01 ; Chronic posttraumatic stress disorder F43.12 ; High risk medication use Z79.899 and 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 [facility] [id number] [place] [address] 91060- 8569 Aug, Undifferentiated schizophrenia F20.3 [facility] [id number] [place] [address] 02085- 2960 Aug, [facility] [id number] [place] [address] 45354- 3536 Aug, Acute non-recurrent maxillary sinusitis J01.00 [facility] [id number] [place] [address] 67291- 9841 Aug, [facility] [id number] [place] [address] 76462- 5143 Aug, [facility] [id number] [place] [address] 35885- 0056 Jul, Undifferentiated schizophrenia F20.3 [facility] [id number] [place] [address] 56864- 4364 Jul, Schizophrenia, undifferentiated F20.3 ; 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 ; Post-traumatic stress disorder F43.10 ; Panic disorder F41.0 and Depressive disorder, not elsewhere classified F32.9 [facility] [id number] [place] [address] 98843- 5093 Jul, [facility] [id number] [place] [address] 87088- 4318 Jul, Schizophrenia, undifferentiated F20.3 ; 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 ; Post-traumatic stress disorder F43.10 ; Panic disorder F41.0 and Depressive disorder, not elsewhere classified F32.9 [facility] [id number] [place] [address] 56615- 1559 Jul, [facility] [id number] [place] [address] 63237- 3950 Jul, Undifferentiated schizophrenia F20.3 ; Panic disorder with agoraphobia F40.01 ; 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 ; Obesity E66.9 and Chronic posttraumatic stress disorder F43.12 [facility] [id number] [place] [address] 44985- 7051 Jun, [facility] [id number] [place] [address] 00516- 1299 Jun, [facility] [id number] [place] [address] 00631- 4066 Jun, Dental caries K02.9 [facility] [address] 71084- 1819 Jun, Undifferentiated schizophrenia F20.3 [facility] [id number] [place] [address] 48662- 0128 30 May, 2016 [facility] [id number] [place] [address] 95851- 1809 May, Undifferentiated schizophrenia F20.3 ; Panic disorder with agoraphobia F40.01 and Chronic post-traumatic stress disorder (PTSD) F43.12 [facility] [id number] [place] [address] 27419- 3849 May, [facility] [id number] [place] [address] 49487- 0468 May, Undifferentiated schizophrenia F20.3 [facility] [id number] [place] [address] 67466- 0798 May, [facility] [id number] [place] [address] 05848- 9848 07 May, [address] [facility] [id number] [place] [address] 49877- 3470 Apr, Undifferentiated schizophrenia F20.3 ; PTSD (post-traumatic stress disorder) F43.[address] [facility] [id number] [place] [address] 54878- 2832 Apr, [facility] [id number] [place] [address] 63569- 8108 Mar, [facility] [id number] [place] [address] 105740- 7841 Mar, [place] [facility] [address] 71436- 5378 Jan, Shortness of breath R06.02 and Bipolar disorder with psychotic features F31.9 [facility] [id number] [place] [address] 26858- 2916 Jan, [place] [facility] [address] 96975- 9924 Jan, Increased intracranial pressure G93.2 ; Visual disturbance H53.9 and Bipolar II disorder F31.81 [place] [address] 11736- 1682 Jan, [place] [id number] [place] [address] 94562- 5777 Jan, [place] [facility] [address] 46028- 1771 Jan, [facility] [id number] [place] [address] 05754- 9889 Jan, Acquired hypothyroidism E03.9 ; Depression F32.9 and Insomnia G47.00 [facility] [id number] [place] [address] 95652- 3878 Jan, Exertional dyspnea R06.09 ; Heart palpitations R00.2 ; Hyperlipidemia, unspecified hyperlipidemia type E78.5 ; Hypothyroidism, unspecified type E03.9 and Hypokalemia E87.6 [facility] [id number] [place] [address] 34218- 1630 Dec, PTSD (post-traumatic stress disorder) F43.10 ; Depression F32.9 ; Insomnia G47.00 and Bipolar disorder with psychotic features F31.9 [place] [facility] [address], [place] [address]- 4723 Dec, Increased intracranial pressure G93.2 [facility] [id number] [place] [address] 50922- 7577 Dec, [place] [id number] [place] [address] 50770- 6504 Dec, Shortness of breath R06.02 [facility] [id number] [place] [address] 94744- 2026 05 Jan, 2016 Visual disturbance H53.9 and Headache, unspecified headache type R51 [place] [id number] [place] [address] 62684- 3919 Dec, Insomnia G47.00 [facility] [id number] [place] [address] 84457- 7301 Dec, Murmur R01.1 [facility] [id number] [place] [address] 02369- 7613 Dec, Murmur R01.1 ; Tunnel vision, unspecified laterality H53.489 ; Orthostatic hypertension I10 ; Shortness of breath R06.02 and Tachycardia R00.0 [place] [id number] [place] [address] 69754- 1858 17 Dec, 2015 [place] [id number] [place] [address] 62199- 3707 Dec, Hypothyroid E03.9 and Bipolar 1 disorder F31.9 [place] [id number] [place] [address] 92176- 6969 15 Dec, 2015 Bipolar 1 disorder F31.9 [facility] [id number] [place] [address] 36351- 6143 08 Dec, 2015 [place] [id number] [place] [address] 51705- 0330 October, Acquired hypothyroidism E03.9 ; Depression F32.[address] [facility] [id number] [place] [address] 21355- 0120 October, [facility] [id number] [place] [address] 00704- 4263 October, Bipolar 1 disorder F31.9 ; PTSD (post-traumatic stress disorder) F43.10 and 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 [facility] [id number] [place] [address] 29178- 9370 Oct, Bipolar 1 disorder F31.9 and Insomnia G47.00 [place] [id number] [place] [address] 87380- 7104 Oct, [facility] [id number] [place] [address] 50057- 6935 Oct, [facility] [id number] [place] [address] 52199- 8330 Aug, Hypothyroid E03.9 [facility] [id number] [place] [address] 75481- 5971 Aug, Encounter for therapeutic drug level monitoring Z51.81 and Other joint terminal attack controller (current) drug therapy Z79.899 [place] [id number] [place] [address] 91263- 6052 Aug, Encounter for therapeutic drug level monitoring Z51.81 [facility] [id number] [place] [address] 21173- 9910 Aug, Acquired hypothyroidism E03.9 ; Leg pain M79.606 and Bipolar [address] [facility] [id number] [place] [address] 34860- 6565 Aug, [facility] [id number] [place] [address] 08929- 2510 Aug, [facility] [id number] [place] [address] 51767- 6876 05 Ifeanyi, [address] [facility] [id number] [place] [address] 91795- 7690 Jul, Rash R21 ; Abnormal LFTs R94.5 ; Acquired hypothyroidism E03.9 ; Sleep apnea in adult G47.33 and Fatty liver K76.0 [facility] [id number] [place] [address] 63371- 6493 Jun, [facility] [address] 92393- 6001 Jun, [facility] [address] 48038- 5795 Jun, Bipolar II disorder F31.81 and Social phobia, generalized F40.11 [facility] [address] 22334- 8968 Mar, Bipolar II disorder 296.89 and Social phobia 300.23 [facility] [address] 93132- 8798 Dec, [facility] [address] 67823- 0559 Dec, [facility] [id number] [place] [address] 02278- 1501 Dec, Bipolar II disorder in partial or unspecified remission 296.89 and Social phobia, generalized 300.23 [facility] [id number] [place] [address] 16039- 0519 Oct, 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 [facility] [id number] [place] [address] 01677- 6283 Oct, [facility] [address] 05026- 7657 Oct, [facility] [id number] [place] [address] 38647- 3349 Aug, [facility] [address] 78926- 2546 Aug, [facility] [place] [facility] [address] [id number] [place] [address]- 3540 Aug, [facility] [place] [facility] [address] [id number] [place] [address]- 2393 Aug, [facility] [place] [facility] [address] [id number] [place] [address]- 6079 Aug, [facility] [place] [facility] [address] [id number] [place] [address]- 9250 Aug, [facility] [place] [facility] [address] [id number] [place] [address]- 8415 Aug, [facility] [place] [facility] [address] [id number] [place] [address] Aug, [facility] [place] [facility] [address] [id number] [place] [address] Jul, [facility] [place] [facility] [address] [id number] [place] [address] Jul, [facility] [place] [facility] [address] [id number] [place] [address] Jul, [facility] [place] [facility] [address] [id number] [place] [address] Jul, [facility] [place] [facility] [address] [id number] [place] [address] Jul, [facility] [place] [facility] [address] [id number] [place] [address] Jul, [facility] [place] [facility] [address] [id number] [place] [address] Jun, [facility] [place] [facility] [address] [id number] [place] [address] Jun, [facility] [place] [facility] [address] [id number] [place] [address] Jun, [facility] [place] [facility] [address] [id number] [place] [address] Jun, [facility] [place] [facility] [address] [id number] [place] [address] Jun, [facility] [place] [facility] [address] [id number] [place] [address] Jun, [facility] [place] [facility] [address] [id number] [place] [address] Jun, [facility] [place] [facility] [address] [id number] [place] [address] Jun, [facility] [place] [facility] [address] [id number] [place] [address] Jun, [facility] [place] [facility] [address] [id number] [place] [address] Jun, [facility] [place] [facility] [address] [id number] [place] [address] Jun, [facility] [place] [facility] [address] [id number] [place] [address] Jun, [facility] [place] [facility] [address] [id number] [place] [address] Jun, [facility] [place] [facility] [address] [id number] [place] [address] Jun, [facility] [place] [facility] [address] [id number] [place] [address] Jun, [facility] [place] [facility] [address] [id number] [place] [address] Jun, [facility] [place] [facility] [address] [id number] [place] [address] May, [facility] [place] [facility] [address] [id number] [place] [address] May, [facility] [place] [facility] [address] [id number] [place] [address] May, [facility] [place] [facility] [address] [address] [id number] [place] [address] May, [facility] [place] [facility] [address] [id number] [place] [address] May, [facility] [place] [facility] [address] [id number] [place] [address] May, [facility] [place] [facility] [address] [id number] [place] [address] Apr, [facility] [place] [facility] [address] [id number] [place] [address] Apr, [facility] [place] [facility] [address] [id number] [place] [address]32 Apr, [facility] [place] [facility] [address] [id number] [place] [address] 4656 Apr, [facility] [place] [facility] [address] [id number] [place] [address] 8444 Apr, [facility] [place] [facility] [address] [id number] [place] [address]- 6770 Apr, [facility] [place] [facility] [address] [id number], [place] [address] Mar, [facility] [place] [facility] [address] [id number], [place] [address] Mar, [facility] [place] [facility] [address] [id number][place] [address] Mar, [facility] [place] [facility] [address] [id number] [place] [address] 6278 Mar, [facility] [place] [facility] [address] [id number] [place] [address] 18[address] Jan, [facility] [place] [facility] [address] [id number] [place] [address] 9336 Jan, [facility] [place] [facility] [address] [id number] [place] [address] 0161 Jan, [facility] [place] [facility] [address] [id number] [place] [address] 9941 Jan, [facility] [place] [facility] [address] [id number] [place] [address] 2057 Jan, [facility] [place] [facility] [address] [id number] [place] [address]- 55[address] Jan, [facility] [place] [facility] [address] [id number] [place] [address]- 5967 Dec, [facility] [place] [facility] [address] [id number] [place] [address]- 0973 Dec, [facility] [place] [facility] [address] [id number] [place] [address]- 4419 Dec, [facility] [place] [facility] [address] [id number] [place] [address]- [address]250 Dec, [facility] [place] [facility] [address] [id number] [place] [address]- 3430 Dec, [facility] [place] [facility] [address] [id number] [place] [address] 9500 Dec, [facility] [place] [facility] [address] [id number] [place] [address]- 1372 October, [facility] [place] [facility] [address] [id number] [place] [address]- 1492 October, [facility] [place] [facility] [address] [id number] [place] [address]- 6067 October, [facility] [place] [facility] [address] [id number] [place] [address]- 6412 October, [facility] [place] [facility] [address] [id number] [place] [address]- 0249 October, [facility] [place] [facility] [address] [id number] [place] [address]- 2483 October, [facility] [place] [facility] [address] [id number] [place] [address]- 2119 October, [facility] [place] [facility] [address] [id number] [place] [address]- 0270 October, [facility] [place] [facility] [address] [id number] [place] [address] 7719 Oct, [facility] [place] [facility] [address] [id number] [place] [address] 1552 Oct, [facility] [place] [facility] [address] [id number] [place] [address] 1984 Oct, [facility] [place] [facility] [address] [id number] [place] [address] 7356 Oct, [facility] [place] [facility] [address] [id number] [place] [address] 6879 Oct, [facility] [place] [facility] [address] [id number] [place] [address] 1976 Aug, [facility] [place] [facility] [address] [id number] [place] [address] 4683 Aug, [facility] [place] [facility] [address] [id number] [place] [address] 2442 Aug, [facility] [place] [facility] [address] [id number] [place] [address]- 6449 Aug, [facility] [place] [facility] [address] [id number] [place] [address]- 9756 Aug, [facility] [place] [facility] [address] [id number] [place] [address] 5204 Aug, [facility] [place] [facility] [address] [id number] [place] [address] Jul, [facility] [place] [facility] [address] [id number] [place] [address] Jul, [facility] [place] [facility] [address] [id number], [place] [address] 270[address] Jul, [facility] [place] [facility] [address] [id number] [place] [address]- 1085 Jul, [facility] [place] [facility] [address] [id number] [place] [address] Jul, [facility] [place] [facility] [address] [id number] [place] [address]- 5396 Jul, [facility] [place] [facility] [address] [id number] [place] [address]- 5656 Jun, [facility] [place] [facility] [address] [id number] [place] [address]- 9197 Jun, [facility] [place] [facility] [address] [id number] [place] [address]- 7256 Jun, [facility] [place] [facility] [address] [id number] [place] [address]- 4145 Jun, [facility] [place] [facility] [address] [id number] [place] [address]- 1392 Jun, [facility] [place] [facility] [address] [id number] [place] [address]- 8422 Jun, [facility] [place] [facility] [address] [id number] [place] [address]- 7058 May, [facility] [place] [facility] [address] [id number], [place] [address]- 0719 May, [facility] [place] [facility] [address] [id number], [place] [address] Apr, [facility] [place] [facility] [address] [id number] [place] [address] 5647 Apr, [facility] [place] [facility] [address] [id number] [place] [address]- 2817 Apr, [facility] [place] [facility] [address] [id number] [place] [address]- 1081 Apr, [facility] [place] [facility] [address] [id number] [place] [address]- 8464 22 Apr, 2012 [facility] [place] [facility] [address] [id number] [place] [address]- 0246 18 Apr, 2013 [facility] [place] [facility] [address] [id number] [place] [address] 18 Apr, 2012 [facility] [place] [facility] [address] [id number] [place] [address]- 8397 Apr, 2012 [facility] [place] [facility] [address] [id number] [place] [address]- 3087 18 Apr, 2013 [facility] [place] [facility] [address] [id number] [place] [address]- 7467 04 Apr, 2013 [facility] [place] [facility] [address] [id number] [place] [address]- 8662 Apr, [facility] [place] [facility] [address] [id number] [place] [address]- 2078 23 Mar, 2012 [facility] [place] [facility] [address] [id number] [place] [address]- 3815 20 Mar, 2012 [facility] [place] [facility] [address] [id number] [place] [address]- 0741 20 Mar, 2012 [facility] [place] [facility] [address] [id number] [place] [address]- 8636 14 Mar, 2013 [facility] [place] [facility] [address] [id number] [place] [address]- 9839 12 Mar, 2012 [facility] [place] [facility] [address] [id number] [place] [address]- 2541 06 Mar, 2012 [facility] [place] [facility] [address] [id number] [place] [address]- 1014 06 Mar, 2012 [facility] [place] [facility] [address] [id number] [place] [address]- 9320 19 Jan, 2013 [facility] [place] [facility] [address] [id number] [place] [address]- 4835 Jan, [facility] [address] [id number] [place] [address]- 2425 Jan, [facility] [place] [facility] [address] [id number] [place] [address]- 8539 Jan, [facility] [place] [facility] [address] [id number] [place] [address]- 8988 Jan, [facility] [place] [facility] [address] [id number] [place] [address]- 5826 Jan, [facility] [place] [facility] [address] [id number] [place] [address]- 1746 Jan, [facility] [place] [facility] [address] [id number] [place] [address]- 7501 Dec, [facility] [place] [facility] [address] [id number] [place] [address]- 6011 Dec, [facility] [place] [facility] [address] [id number] [place] [address]- 2430 Dec, [facility] [place] [facility] [address] [id number] [place] [address]- 8171 Dec, [facility] [place] [facility] [address] [id number] [place] [address]- 3998 Dec, [facility] [place] [facility] [address] [id number] [place] [address]- 7477 Dec, [facility] [place] [facility] [address] [id number] [place] [address]- 0132 October, [facility] [place] [facility] [address] [id number] [place] [address]- 8675 October, [facility] [place] [facility] [address] [id number] [place] [address]- 4092 October, [facility] [place] [facility] [address] [id number] [place] [address]- 1600 October, [facility] [place] [facility] [address] [id number] [place] [address]- 0040 19 Oct, 2012 [facility] [address] [id number] [place] [address]- 4022 09 Oct, 2012 [facility] [place] [facility] [address] [facility] [id number] [place] [address]- 9294 27 Aug, 2012 [facility] [address] [facility] [id number] [place] [address]- 3693 Aug, [facility] [place] [facility] [address] [facility] [id number] [place] [address]- 1357 Aug, [facility] [address] [id number] [place] [address]- 7566 20 Aug, 2012 [facility] [place] [facility] [address] [facility] [id number] [place] [address]- 8182 18 Aug, 2012 [facility] [address] [facility] [id number] [place] [address]- 8290 Aug, [facility] [place] [facility] [address] [facility] [id number] [place] [address]- 6449 Aug, [facility] [place] [facility] [id number] [place] [address]- 7910 Aug, [facility] [place] [facility] [address] [facility] [id number] [place] [address]- 2736 Aug, [facility] [place] [facility] [id number] [place] [address]- 4506 Aug, [facility] [place] [facility] [address] [facility] [id number] [place] [address]- 4829 10 Aug, 2012 [facility] [place] [facility] [address] [facility] [id number] [place] [address]- 0680 08 Aug, 2012 [facility] [place] [facility] [address] [facility] [id number] [place] [address]- 0296 04 Aug, 2012 [facility] [place] [facility] [id number] [place] [address] Aug, [facility] [address] [facility] [id number] [address] Jul, [facility] [address] [facility] [id number], [place] [address] Jul, [facility] [address] [facility] [id number], [place] [address] 1102 Jul, [facility] [address] [facility] [id number], [place] [address] Jul, [facility] [address] [facility] [id number], [place] [address] Jun, [facility] [address] [facility] [id number], [place] [address] 7[address] Jun, [facility] [id number] [address] 1586 Jun, [facility] [id number] [address] 6098 Jun, [facility] [address] [id number], [place] [address] May, [facility] [address] [id number], [place] [address]- 7623 May, IMMUNIZATIONS No Known Immunizations SOCIAL HISTORY Never Assessed REASON FOR VISIT med refill PLAN OF CARE VITAL SIGNS MEDICATIONS [...]
--- OUTSIDE RECORDS SUMMARY | 2018-09-02 18:09 | XMS REPORT ---
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 Role Phone DIGNA GUERRERO Unavailable PROBLEMS Type Condition ICD9-CM Code GOH19-OA Code Onset Dates Condition Status SNOMED Code Problem Panic disorder with agoraphobia F40.01 Active 95762388 Problem Depressive disorder, not elsewhere classified F32.9 Active 00696893 Problem Chronic posttraumatic stress disorder F43.12 Active 910182765 Problem Insomnia G47.00 Active 788231212 Problem Obesity E66.9 Active 862350561 Problem Other chronic pain G89.29 Active 68857122 Problem Fatty liver K76.0 Active 024998888 Problem Abuse, drug or alcohol F19.10 Active 86538093 Problem Panic disorder without agoraphobia F41.0 Active 16855756 Problem Panic disorder F41.0 Active 763900550 Problem Hypothyroid E03.9 Active 51558188 Problem BMI 50.0-59.9, adult Z68.43 Active 572101759 Problem Restless legs syndrome G25.81 Active 418427866 Problem Encounter for therapeutic drug level monitoring Z51.81 Active 368789780 Problem Neuropathy G62.9 Active 867982056 Problem 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 Active 04515440 Problem Tachycardia R00.0 Active 8873200 Problem Murmur R01.1 Active 857065446 Problem Orthostatic hypertension I10 Active 03151369 Problem Shortness of breath R06.02 Active 805066961 Problem Sleep apnea in adult G47.33 Active 86199123 Problem Tunnel vision, unspecified laterality H53.489 Active 143204216 Problem Undifferentiated schizophrenia F20.3 Active 749197030 ALLERGIES No Information ENCOUNTERS Encounter Location Date Diagnosis [facility] [id number], [place] [address] 18 Apr, 2018 [facility] [address], [place] [address] 235[address] Dec, [facility] [id number] [place] [address] 70581- 2122 Dec, [facility] [id number], [place] [address] 2433 Dec, [facility] [id number] [place] [address] 69683- 0805 Dec, Undifferentiated schizophrenia F20.3 ; Panic disorder with agoraphobia F40.01 ; Chronic posttraumatic stress disorder F43.12 and BMI 50.0- 59.9, adult Z68.43 [facility] [id number] [place] [address] 01515- 5462 Dec, [facility] [id number] [place] [address] 72775- 8899 Dec, Undifferentiated schizophrenia F20.3 ; Insomnia G47.00 and Thyroid disorder E07.9 [facility] [id number] [place] [address] 22918- 9785 Dec, Undifferentiated schizophrenia F20.3 [facility] [id number] [place] [address] 70599- 3869 Dec, [facility] [id number] [address]- 8855 Dec, [facility] [id number] [place] [address] 04160- 0803 Dec, BMI 50.0-59.9, adult Z68.43 ; Undifferentiated schizophrenia F20.3 ; Panic disorder without agoraphobia F41.0 and Chronic posttraumatic stress disorder F43.12 [facility] [address], [place] [address] 2877 Dec, [facility] [address], [place] [address] 6777 October, [facility] [id number] [place] [address] 86800- 6555 October, Pain in right shoulder M25.511 and Other chronic pain G89.29 [facility] [id number] [place] [address] 40298- 9173 October, Hypothyroid E03.9 [facility] [id number] [place] [address] 15151- 9057 Oct, Undifferentiated schizophrenia F20.3 [facility] [id number] [place] [address] 75149- 2972 Oct, [facility] [id number] [place] [address] 71188- 2434 Oct, [facility] [id number] [place] [address] 90625- 0625 Aug, Undifferentiated schizophrenia F20.3 [facility] [id number] [place] [address] 62918- 8371 Aug, [facility] [id number] [place] [address] 21859- 4554 Aug, Undifferentiated schizophrenia F20.3 ; Panic disorder with agoraphobia F40.01 ; Chronic posttraumatic stress disorder F43.12 and BMI 50.0- 59.9, adult Z68.43 [facility] [address], [place] [address] 4016 Aug, [facility] [id number] [place] [address] 28932- 3086 Aug, [facility] [id number] [place] [address] 92109- 7041 Aug, Undifferentiated schizophrenia F20.3 [facility] [id number] [place] [address] 88801- 1324 Aug, Hypothyroid E03.9 [facility] [address], [place] [address]- 1733 Jul, Undifferentiated schizophrenia F20.3 [facility] [id number] [place] [address] 42545- 9706 Jul, [facility] [id number] [place] [address] 95712- 6683 Jul, Undifferentiated schizophrenia F20.3 ; Chronic posttraumatic stress disorder F43.12 ; Panic disorder with agoraphobia F40.01 and BMI 50.0-59.9, adult Z68.43 [facility] [id number] [place] [address] 24522- 6867 15 Jul, 2017 [facility] [id number] [place] [address] 02386- 4884 Jul, Acute pain of right shoulder M25.511 ; High risk medication use Z79.899 ; Needle stick injury W27.3XXA ; Hypothyroid E03.9 and BMI 50.0-59.9 , adult Z68.43 [facility] [id number] [place] [address] 38588- 9566 Jun, Undifferentiated schizophrenia F20.3 [facility] [id number] [place] [address] 00354- 3962 14 Jun, 2017 Undifferentiated schizophrenia F20.3 ; Panic disorder without agoraphobia F41.0 ; Chronic posttraumatic stress disorder F43.12 and BMI 50.0-59.9, adult Z68.43 [facility] [id number] [place] [address] 75762- 0366 May, [facility] [id number] [place] [address] 08889- 0024 May, [facility] [id number] [place] [address] 12019- 5014 May, Undifferentiated schizophrenia F20.3 [facility] [id number] [place] [address] 69110- 2718 May, [facility] [id number] [place] [address] 03542- 7089 May, [facility] [id number] [place] [address] 62565- 2150 15 May, 2017 Hypothyroid E03.9 [facility] [address] 13057- 5988 13 May, 2017 [facility] [id number] [place] [address] 89076- 0289 10 May, 2017 [facility] [address] 17615- 9381 07 May, 2017 Chronic posttraumatic stress disorder F43.12 ; Panic disorder with agoraphobia F40.01 ; Undifferentiated schizophrenia F20.3 ; BMI 40.0-44.9, adult Z68.41 and Obesity E66.9 [facility] [id number] [place] [address] 93537- 9242 07 May, 2017 Shortness of breath R06.02 [facility] [id number] [place] [address] 28094- 7891 May, [facility] [id number] [place] [address] 14082- 8605 Apr, Undifferentiated schizophrenia F20.3 [facility] [id number] [place] [address] 86582- 5473 Apr, [facility] [id number] [place] [address] 11946- 2124 Apr, [facility] [id number] [place] [address] 43549- 8211 Mar, Undifferentiated schizophrenia F20.3 ; Panic disorder without agoraphobia F41.0 and Chronic posttraumatic stress disorder F43.12 [facility] [id number] [place] [address] 88463- 2751 Mar, Undifferentiated schizophrenia F20.3 [facility] [id number] [place] [address] 14575- 9977 18 Mar, 2017 [facility] [id number] [place] [address] 45199- 8703 08 Mar, 2017 [facility] [address], [place] [address]- 7952 Mar, [facility] [id number] [place] [address] 51875- 8697 Jan, Undifferentiated schizophrenia F20.3 [facility] [id number] [place] [address] 99837- 6663 Jan, [facility] [id number] [place] [address] 25128- 9927 Jan, [facility] [id number] [place] [address] 56541- 5532 Jan, [id number] [id number] Dec, Needle stick injury W27.3XXA [facility] [id number] [place] [address] 10119- 4021 Dec, Needle stick injury W27.3XXA [facility] [id number] [place] [address] 38722- 3565 Dec, Undifferentiated schizophrenia F20.3 [facility] [id number] [place] [address] 13881- 5793 Dec, [facility] [id number] [place] [address] 28056- 9322 Dec, [facility] [id number] [place] [address] 08824- 3216 Dec, Undifferentiated schizophrenia F20.3 ; Panic disorder with agoraphobia F40.01 and Chronic posttraumatic stress disorder F43.12 [facility] [id number] [place] [address] 60438- 2927 Dec, [facility] [id number] [place] [address] 50443- 9488 October, [facility] [id number] [place] [address] 72523- 1275 October, Undifferentiated schizophrenia F20.3 [facility] [address], [place] [address]- 4806 October, [facility] [address], [place] [address]- 3436 October, [facility] [id number] [place] [address] 92925- 1031 Oct, Undifferentiated schizophrenia F20.3 ; Panic disorder with agoraphobia F40.01 ; Chronic posttraumatic stress disorder F43.12 and Obesity E66.9 [facility] [id number] [place] [address] 86281- 8805 Oct, [facility] [id number] [place] [address] 12788- 1508 Oct, [facility] [id number] [place] [address] 65220- 3557 Aug, Undifferentiated schizophrenia F20.3 [facility] [address], [place] [address]- 5153 Aug, [facility] [id number] [place] [address] 69627- 3004 Aug, Muscle spasm M62.838 [facility] [address], [place] [address]- 6856 Aug, Undifferentiated schizophrenia F20.3 [facility] [address], [place] [address]- 4113 Aug, Undifferentiated schizophrenia F20.3 ; Panic disorder with agoraphobia F40.01 ; Chronic posttraumatic stress disorder F43.12 ; High risk medication use Z79.899 and 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 [facility] [address], [place] [address]- 2742 Aug, Undifferentiated schizophrenia F20.3 [facility] [address], [place] [address]- 7447 20 Aug, 2016 [facility] [address], [place] [address]- 6164 14 Aug, 2016 Acute non-recurrent maxillary sinusitis J01.00 [facility] [address], [place] [address]- 9447 10 Aug, 2016 [facility] [id number] [place] [address] 31206- 5558 Aug, [facility] [id number] [place] [address] 54560- 1305 Jul, Undifferentiated schizophrenia F20.3 [facility] [id number] [place] [address] 97406- 2422 Jul, Schizophrenia, undifferentiated F20.3 ; 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 ; Post-traumatic stress disorder F43.10 ; Panic disorder F41.0 and Depressive disorder, not elsewhere classified F32.9 [facility] [id number] [place] [address] 56318- 4122 Jul, [facility] [id number] [place] [address] 92064- 4836 Jul, Schizophrenia, undifferentiated F20.3 ; 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 ; Post-traumatic stress disorder F43.10 ; Panic disorder F41.0 and Depressive disorder, not elsewhere classified F32.9 [facility] [address], [place] [address]- 1439 Jul, [facility] [id number] [place] [address] 71276- 3716 Jul, Undifferentiated schizophrenia F20.3 ; Panic disorder with agoraphobia F40.01 ; 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 ; Obesity E66.9 and Chronic posttraumatic stress disorder F43.12 [facility] [address], [place] [address]- 7400 Jun, [facility] [id number] [place] [address] 83577- 7105 Jun, [facility] [id number] [place] [address] 63016- 8926 Jun, Dental caries K02.9 [facility] [id number] [place] [address] 99857- 8888 Jun, Undifferentiated schizophrenia F20.3 [facility] [id number] [place] [address] 32780- 0340 30 May, 2016 [facility] [id number] [place] [address] 53206- 4201 May, Undifferentiated schizophrenia F20.3 ; Panic disorder with agoraphobia F40.01 and Chronic post-traumatic stress disorder (PTSD) F43.12 [facility] [id number] [place] [address] 43913- 2672 May, [facility] [id number] [place] [address] 46687- 2772 May, Undifferentiated schizophrenia F20.3 [facility] [id number] [place] [address] 98786- 4611 May, [facility] [id number] [place] [address] 36349- 9566 07 May, 2016 Dental examination Z01.20 [facility] [id number] [place] [address] 82658- 4280 Apr, Undifferentiated schizophrenia F20.3 ; PTSD (post-traumatic stress disorder) F43.10 and Obesity E66.9 [facility] [id number] [place] [address] 84325- 3146 Apr, [facility] [id number] [place] [address] 18437- 0190 15 Mar, 2016 [facility] [id number] [place] [address] 26995- 6489 Mar, [facility] [id number] [place] [address] 45276- 6616 Jan, Shortness of breath R06.02 and Bipolar disorder with psychotic features F31.9 [id number] [place] [address] 82869- 2727 Jan, [facility] [id number] [place] [address] 80210- 6876 Jan, Increased intracranial pressure G93.2 ; Visual disturbance H53.9 and Bipolar II disorder F31.81 [id number] [place] [address] 81834- 9759 Jan, [id number] [place] [address] 90298- 9901 Jan, [id number] [place] [address] 75320- 8318 Jan, [id number] [place] [address] 32575- 2705 Jan, Acquired hypothyroidism E03.9 ; Depression F32.9 and Insomnia G47.00 [id number] [place] [address] 90148- 1616 Jan, Exertional dyspnea R06.09 ; Heart palpitations R00.2 ; Hyperlipidemia, unspecified hyperlipidemia type E78.5 ; Hypothyroidism, unspecified type E03.9 and Hypokalemia E87.6 [id number] [place] [address] 51184- 8431 Dec, PTSD (post-traumatic stress disorder) F43.10 ; Depression F32.9 ; Insomnia G47.00 and Bipolar disorder with psychotic features F31.9 [id number] [place] [address] 40693- 3493 Dec, Increased intracranial pressure G93.2 [id number] [place] [address] 88252- 6766 Dec, [id number] [place] [address] 94435- 0743 Dec, Shortness of breath R06.02 [id number] [place] [address] 62017- 9350 05 Jan, 2016 Visual disturbance H53.9 and Headache, unspecified headache type R51 [id number] [place] [address] 23112- 2762 Dec, Insomnia G47.00 [address] 06348- 0368 Dec, Murmur R01.1 [address] 11541- 8358 Dec, Murmur R01.1 ; Tunnel vision, unspecified laterality H53.489 ; Orthostatic hypertension I10 ; Shortness of breath R06.02 and Tachycardia R00.0 [id number] [place] [address] 04993- 1846 Dec, [id number] [place] [address] 09833- 5435 Dec, Hypothyroid E03.9 and Bipolar 1 disorder F31.9 [address] 96481- 3139 Dec, Bipolar 1 disorder F31.9 [address] [place] [id number] [place] [address] 45615- 4435 Dec, [id number] [place] [address] 57547- 4344 October, Acquired hypothyroidism E03.9 ; Depression F32.9 and Insomnia G47.00 [id number] [place] [address] 47928- 7272 October, [id number] [place] [address] 50978- 1617 October, Bipolar 1 disorder F31.9 ; PTSD (post-traumatic stress disorder) F43.10 and Social phobia F40.10 [id number] [place] [address] 46618- 6110 Oct, Bipolar 1 disorder F31.9 and Insomnia G47.00 [facility] [id number] [place] [address] 18899- 2514 Oct, [facility] [id number] [place] [address] 59819- 2838 Oct, [facility] [address] 29375- 0593 Aug, Hypothyroid E03.9 [id number] [place] [address] 76642- 3923 Aug, Encounter for therapeutic drug level monitoring Z51.81 and Other usp (current) drug therapy Z79.899 [id number] [place] [address] 01852- 8009 Aug, Encounter for therapeutic drug level monitoring Z51.81 [address] [place] [id number] [place] [address] 92451- 7737 Aug, Acquired hypothyroidism E03.9 ; Leg pain M79.606 and Bipolar 1 disorder F31.9 [address] [place] [id number] [place] [address] 15057- 2348 Aug, [id number] [place] [address] 23402- 7380 Aug, [address] [id number] [place] [address] 42034- 0390 Jul, Thyroid disorder E07.9 [facility] [id number] [place] [address] 58163- 7351 Jul, Rash R21 ; Abnormal LFTs R94.5 ; Acquired hypothyroidism E03.9 ; Sleep apnea in adult G47.33 and Fatty liver K76.0 [facility] [id number] [place] [address] 21285- 5748 Jun, [address] [place] [id number] [place] [address] 097105- 7418 Jun, [facility] [id number] [place] [address] 405188- 8863 Jun, Bipolar II disorder F31.81 and Social phobia, generalized F40.11 [facility] [id number] [place] [address] 07257- 1447 Mar, Bipolar II disorder 296.89 and Social phobia 300.23 [facility] [id number] [place] [address] 780492- 7619 Dec, [facility] [address] 56783- 5593 Dec, [facility] [id number] [place] [address] 029801- 3961 Dec, Bipolar II disorder in partial or unspecified remission 296.89 and Social phobia, generalized 300.23 [facility] [id number] [place] [address] 62039- 5533 30 Oct, 2014 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 [facility] [id number] [place] [address] 06354- 4812 14 Oct, 2014 [facility] [id number] [place] [address] 62161- 2187 Oct, [facility] [id number] [place] [address] 07937- 3557 Aug, [facility] [id number] [place] [address] 46029- 1320 Aug, [facility] [id number] [place] [address] [id number]- 5365 Aug, [facility] [id number] [place] [address] [id number]- 5595 Aug, [facility] [id number] [place] [address] [id number]- 7335 Aug, [facility] [address] [id number] [place] [address] 4262 Aug, [facility] [place] [facility] [address] [id number] [place] [address] Aug, [facility] [place] [facility] [address] [id number] [place] [address]- 8804 Aug, [facility] [place] [facility] [address] [id number] [place] [address]- 3544 Jul, [facility] [place] [facility] [address] [id number] [place] [address]- 6083 Jul, [facility] [place] [facility] [address] [id number] [place] [address]- 8619 Jul, [facility] [place] [facility] [address] [id number] [place] [address]- 5121 Jul, [facility] [place] [facility] [address] [id number] [place] [address]- 2568 Jul, [facility] [place] [facility] [address] [id number] [place] [address]- 4780 Jul, [facility] [place] [facility] [address] [id number] [place] [address]- 8650 Jun, [facility] [place] [facility] [address] [id number] [place] [address]- 4576 Jun, [facility] [place] [facility] [address] [id number] [place] [address]- 9333 Jun, [facility] [place] [facility] [address] [id number] [place] [address]- 4339 Jun, [facility] [place] [facility] [address] [id number] [place] [address]- 9862 Jun, [facility] [place] [facility] [address] [id number] [place] [address]- 0591 Jun, [facility] [place] [facility] [address] [id number], [place] [address]- 3745 Jun, [facility] [place] [facility] [address] [id number] [place] [address]- 9565 Jun, [facility] [place] [facility] [address] [id number] [place] [address] Jun, [facility] [place] [facility] [address] [id number] [place] [address]- 8450 Jun, [facility] [place] [facility] [address] [id number] [place] [address]- 9638 Jun, [facility] [place] [facility] [address] [id number] [place] [address] Jun, [facility] [place] [facility] [address] [id number] [place] [address] 94[address] Jun, [facility] [place] [facility] [address] [id number] [place] [address] 8068 Jun, [facility] [place] [facility] [address] [id number] [place] [address]- 59[address] Jun, [facility] [place] [facility] [address] [id number] [place] [address]- 1672 Jun, [facility] [place] [facility] [address] [id number] [place] [address] 2351 May, [facility] [place] [facility] [address] [id number], [place] [address] May, [facility] [place] [facility] [address] [id number], [place] [address] May, [facility] [place] [facility] [address] [id number], [place] [address] May, [facility] [place] [facility] [address] [id number], [place] [address] 87[address] May, [facility] [place] [facility] [address] [id number] [place] [address]- 1662 May, [facility] [place] [facility] [address] [id number] [place] [address]- 08[address] Apr, [facility] [place] [facility] [address] [id number] [place] [address]447 Apr, [facility] [place] [facility] [address] [id number] [place] [address] Apr, [facility] [place] [facility] [address] [id number] [place] [address]- 7189 Apr, [facility] [place] [facility] [address] [id number] [place] [address]- 8520 Apr, [facility] [place] [facility] [address] [id number] [place] [address]- 1530 Apr, [facility] [place] [facility] [address] [id number] [place] [address]- 7121 Mar, [facility] [place] [facility] [address] [id number] [place] [address]- 8979 Mar, [facility] [place] [facility] [address] [id number] [place] [address]- 9892 Mar, [facility] [place] [facility] [address] [id number] [place] [address]- 1144 Mar, [facility] [place] [facility] [address] [id number] [place] [address]- 3161 Jan, [facility] [place] [facility] [address] [id number] [place] [address]- 6650 Jan, [facility] [place] [facility] [address] [id number] [place] [address]- 3652 Jan, [facility] [place] [facility] [address] [id number] [place] [address]- 3136 Jan, [facility] [place] [facility] [address] [id number] [place] [address]- 395[address] Jan, [facility] [place] [facility] [address] [id number] [place] [address]- 3581 Jan, [facility] [place] [facility] [address] [id number] [place] [address] 1933 Dec, [facility] [place] [facility] [address] [id number] [place] [address]- 7703 Dec, [facility] [place] [facility] [address] [id number] [place] [address]- 8791 Dec, [facility] [place] [facility] [address] [id number] [place] [address]- 1182 Dec, [facility] [place] [facility] [address] [id number] [place] [address]- 5336 Dec, [facility] [place] [facility] [address] [id number] [place] [address]- 6967 Dec, [facility] [place] [facility] [address] [id number] [place] [address]- 0584 October, [facility] [place] [facility] [address] [id number] [place] [address]- 4678 October, [facility] [place] [facility] [address] [id number] [place] [address]- 1236 October, [facility] [place] [facility] [address] [id number] [place] [address]- 8789 October, [facility] [place] [facility] [address] [id number] [place] [address]- 5103 October, [facility] [place] [facility] [address] [id number] [place] [address]- 9501 October, [facility] [place] [facility] [address] [id number] [place] [address]- 9056 October, [facility] [place] [facility] [address] [id number] [place] [address] October, [facility] [place] [facility] [address] [id number] [place] [address]- 1376 Oct, [facility] [place] [facility] [address] [id number] [place] [address]- 7866 Oct, [facility] [place] [facility] [address] [id number] [place] [address]- 5498 Oct, [facility] [place] [facility] [address] [id number] [place] [address]- 7803 Oct, [facility] [place] [facility] [address] [id number] [place] [address]- 3394 Oct, [facility] [place] [facility] [address] [id number] [place] [address]- 5352 Aug, [facility] [place] [facility] [address] [id number] [place] [address]- 7084 Aug, [facility] [place] [facility] [address] [id number] [place] [address]- 1014 Aug, [facility] [place] [facility] [address] [id number] [place] [address]- 2395 Aug, [facility] [place] [facility] [address] [id number] [place] [address]- 8844 Aug, [facility] [place] [facility] [address] [id number] [place] [address]- 3628 Aug, [facility] [place] [facility] [address] [facility] [id number] [place] [address]- 3223 Jul, [facility] [place] [facility] [address] [id number] [place] [address]- 1815 Jul, [facility] [place] [facility] [address] [id number] [place] [address]- 9811 Jul, [facility] [place] [facility] [address] [id number] [place] [address]- 1997 Jul, [facility] [place] [facility] [address] [id number] [place] [address]- 7759 Jul, [facility] [place] [facility] [address] [id number] [place] [address]- 6711 Jul, [facility] [place] [facility] [address] [id number] [place] [address]- 2096 Jun, [facility] [place] [facility] [address] [id number] [place] [address] Jun, [facility] [place] [facility] [address] [id number] [place] [address] Jun, [facility] [place] [facility] [address] [id number] [place] [address]- 6686 Jun, [facility] [place] [facility] [address] [id number] [place] [address]- 4499 Jun, [facility] [place] [facility] [address] [id number] [place] [address] 1959 Jun, [facility] [place] [facility] [address] [id number] [place] [address] May, [facility] [place] [facility] [address] [id number] [place] [address]- 8871 May, [facility] [place] [facility] [address] [id number] [place] [address]- 7931 Apr, [facility] [place] [facility] [address] [id number], [place] [address]- 7686 Apr, [facility] [place] [facility] [address] [id number], [place] [address]- 5677 Apr, [facility] [place] [facility] [address] [id number], [place] [address]- 2514 Apr, [facility] [place] [facility] [address] [id number] [place] [address]- 5570 Apr, [facility] [place] [facility] [address] [id number] [address]997 Apr, [facility] [place] [facility] [address] [id number] [address] Apr, [facility] [place] [facility] [address] [id number], [place] [address]- 6828 Apr, [facility] [place] [facility] [address] [id number] [place] [address]- 6270 18 Apr, 2013 [facility] [place] [facility] [address] [id number] [place] [address]- 0817 04 Apr, 2013 [facility] [place] [facility] [address] [id number] [place] [address]- 2329 Apr, [facility] [place] [facility] [address] [id number] [place] [address]- 4817 23 Mar, 2013 [facility] [place] [facility] [address] [id number] [place] [address]- 6570 20 Mar, 2013 [facility] [place] [facility] [address] [id number] [place] [address]- 5608 20 Mar, 2013 [facility] [place] [facility] [address] [id number] [place] [address]- 4241 14 Mar, 2013 [facility] [place] [facility] [address] [id number] [place] [address]- 8590 12 Mar, 2013 [facility] [place] [facility] [address] [id number] [place] [address]- 4533 06 Mar, 2013 [facility] [place] [facility] [address] [id number] [place] [address]- 3588 06 Mar, 2013 [facility] [place] [facility] [address] [id number], [place] [address]- 7116 Jan, [facility] [place] [facility] [address] [id number] [place] [address]- 2173 Jan, [facility] [place] [facility] [address] [id number] [place] [address]- 5187 Jan, [facility] [place] [facility] [address] [id number] [place] [address]- 4052 Jan, [facility] [place] [facility] [address] [id number] [place] [address]- 9489 08 Jan, 2013 [facility] [place] [facility] [address] [id number] [place] [address]- 2546 Jan, [facility] [address] [id number] [place] [address]- 2705 Jan, [facility] [place] [address] [id number] [place] [address]- 2546 Dec, [facility] [place] [address] [id number] [place] [address]- 4146 Dec, [facility] [place] [address] [id number] [place] [address]- 2544 Dec, [facility] [address] [id number] [place] [address]- 2121 Dec, [facility] [address] [id number] [place] [address]- 2728 Dec, [facility] [address] [id number] [place] [address]- 7000 Dec, [facility] [place] [address] [id number] [place] [address]- 8287 October, [facility] [address] [id number] [place] [address]- 1016 October, [facility] [address] [id number] [place] [address]- 8520 October, [facility] [address] [id number] [place] [address]- 2546 October, [facility] [place] [address] [id number] [place] [address]- 2545 Oct, [facility] [address] [id number] [place] [address]- 2546 Oct, [facility] [address] [id number] [place] [address]- 2546 Aug, [facility] [address] [id number] [place] [address]- 3172 Aug, [facility] [address] [id number] [place] [address]- 1181 Aug, [facility] [place] [facility] [address] [id number] [place] [address]- 1636 Aug, [facility] [place] [facility] [address] [id number] [place] [address]- 5866 18 Aug, 2012 [facility] [place] [facility] [address] [id number] [place] [address]- 9611 Aug, [facility] [place] [facility] [address] [id number] [place] [address]- 4480 Aug, [facility] [place] [facility] [address] [id number] [place] [address]- 6909 Aug, [facility] [place] [facility] [address] [id number] [place] [address]- 2741 Aug, [facility] [place] [facility] [address] [id number] [place] [address]- 0267 Aug, [facility] [place] [facility] [address] [id number] [place] [address]- 2950 Aug, [facility] [place] [facility] [address] [id number] [place] [address]- 1555 Aug, [facility] [place] [facility] [address] [id number] [place] [address]- 7036 Aug, [facility] [place] [facility] [address] [id number] [place] [address]- 5177 Aug, [facility] [place] [facility] [address] [id number] [place] [address]- 6524 Jul, [facility] [place] [facility] [address] [id number] [place] [address]- 0585 Jul, [facility] [place] [facility] [address] [id number] [place] [address]- 6415 Jul, [facility] [place] [facility] [address] [facility] [id number], [place] [address]- 7368 Jul, [facility] [address] [id number], [place] [address]- 9767 Jun, [facility] [address] [facility] [id number], [place] [address]- 6978 Jun, [facility] [address] [id number], [place] [address]- 9720 Jun, [facility] [address] [id number], [place] [address]- 7065 Jun, [facility] [address] [id number], [place] [address]- 7389 May, [facility] [address] [id number], [place] [address]- 3198 May, IMMUNIZATIONS No Known Immunizations SOCIAL HISTORY Never Assessed REASON FOR VISIT natalia refill PLAN OF CARE VITAL SIGNS MEDICATIONS [...]
--- OUTSIDE RECORDS SUMMARY | 2018-09-02 18:10 | XMS REPORT ---
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 Name Role Phone JOSE LARRY Unavailable PROBLEMS Type Condition ICD9-CM Code OSJ43-HD Code Onset Dates Condition Status SNOMED Code Problem Panic disorder with agoraphobia F40.01 Active 36590106 Problem Depressive disorder, not elsewhere classified F32.9 Active 06214392 Problem Chronic posttraumatic stress disorder F43.12 Active 372070040 Problem Insomnia G47.00 Active 583775209 Problem Obesity E66.9 Active 371548278 Problem Other chronic pain G89.29 Active 71603566 Problem Fatty liver K76.0 Active 021109573 Problem Abuse, drug or alcohol F19.10 Active 40587323 Problem Panic disorder without agoraphobia F41.0 Active 09904526 Problem Panic disorder F41.0 Active 620416919 Problem Hypothyroid E03.9 Active 21631683 Problem BMI 50.0-59.9, adult Z68.43 Active 894086593 Problem Restless legs syndrome G25.81 Active 723583935 Problem Encounter for therapeutic drug level monitoring Z51.81 Active 487565831 Problem Neuropathy G62.9 Active 383586545 Problem Social phobia F40.10 Active 73625955 Problem Tachycardia R00.0 Active 1826762 Problem Murmur R01.1 Active 386106606 Problem Orthostatic hypertension I10 Active 06221768 Problem Shortness of breath R06.02 Active 774144544 Problem Sleep apnea in adult G47.33 Active 11706096 Problem Tunnel vision, unspecified laterality H53.489 Active 780048993 Problem Undifferentiated schizophrenia F20.3 Active 065649500 ALLERGIES No Information ENCOUNTERS Encounter Location Date Diagnosis [facility] [address] [id number] [address] 18 Apr, 2018 [facility] [address], [place] [address] Dec, [facility] [id number], [place] [address] 0211 Dec, [facility] [address], [place] [address] 5968 Dec, [facility] [id number] [place] [address] 00406- 2956 Dec, Undifferentiated schizophrenia F20.3 ; Panic disorder with agoraphobia F40.01 ; Chronic posttraumatic stress disorder F43.12 and BMI 50.0- 59.9, adult Z68.43 [facility] [id number] [place] [address] 02089- 7562 Dec, [facility] [id number] [place] [address] 22226- 5256 Dec, Undifferentiated schizophrenia F20.3 ; Insomnia G47.00 and Thyroid disorder E07.9 [facility] [address], [place] [address] 1800 Dec, Undifferentiated schizophrenia F20.3 [facility] [address], [place] [address] 8669 Dec, [facility] [address], [place] [address] 8012 Dec, [facility] [address], [place] [address] 8788 Dec, BMI 50.0-59.9, adult Z68.43 ; Undifferentiated schizophrenia F20.3 ; Panic disorder without agoraphobia F41.0 and Chronic posttraumatic stress disorder F43.12 [facility] [address], [place] [address] 9639 04 Dec, 2017 [facility] [address], [place] [address] 6[address] October, [facility] [id number] [place] [address] 39839- 8312 October, Pain in right shoulder M25.511 and Other chronic pain G89.29 [facility] [id number] [place] [address] 69470- 5987 October, Hypothyroid E03.9 [facility] [id number] [place] [address] 01051- 6989 Oct, Undifferentiated schizophrenia F20.3 [facility] [id number] [place] [address] 46050- 1803 Oct, [facility] [id number] [place] [address] 38320- 0938 Oct, [facility] [id number] [place] [address] 09280- 0151 Aug, Undifferentiated schizophrenia F20.3 [facility] [id number] [place] [address] 54076- 5048 Aug, [facility] [id number] [place] [address] 21040- 5466 Aug, Undifferentiated schizophrenia F20.3 ; Panic disorder with agoraphobia F40.01 ; Chronic posttraumatic stress disorder F43.12 and BMI 50.0- 59.9, adult Z68.43 [facility] [id number] [place] [address] 99635- 0328 Aug, [facility] [id number] [place] [address] 56488- 6563 Aug, [facility] [id number] [place] [address] 89999- 2537 Aug, Undifferentiated schizophrenia F20.3 [facility] [id number] [place] [address] 56003- 8153 Aug, Hypothyroid E03.9 [facility] [id number] [place] [address] 05010- 4831 Jul, Undifferentiated schizophrenia F20.3 [facility] [address], [place] [address]- 6908 17 Jul, 2017 [facility] [id number] [place] [address] 86190- 4940 16 Jul, 2017 Undifferentiated schizophrenia F20.3 ; Chronic posttraumatic stress disorder F43.12 ; Panic disorder with agoraphobia F40.01 and BMI 50.0-59.9, adult Z68.43 [facility] [id number] [place] [address] 88533- 2157 15 Jul, 2017 [facility] [id number] [place] [address] 66463- 3928 Jul, Acute pain of right shoulder M25.511 ; High risk medication use Z79.899 ; Needle stick injury W27.3XXA ; Hypothyroid E03.9 and BMI 50.0-59.9 , adult Z68.43 [facility] [id number] [place] [address] 68046- 4279 Jun, Undifferentiated schizophrenia F20.3 [facility] [id number] [place] [address] 60452- 8889 14 Jun, 2017 Undifferentiated schizophrenia F20.3 ; Panic disorder without agoraphobia F41.0 ; Chronic posttraumatic stress disorder F43.12 and BMI 50.0-59.9, adult Z68.43 [facility] [id number] [place] [address] 68099- 5093 May, [facility] [id number] [place] [address] 05613- 1772 May, [facility] [id number] [place] [address] 67865- 9595 May, Undifferentiated schizophrenia F20.3 [facility] [id number] [place] [address] 20604- 0170 May, [facility] [id number] [place] [address] 04337- 3653 May, [facility] [id number] [place] [address] 17746- 0092 15 May, 2017 Hypothyroid E03.9 [facility] [id number] [place] [address] 54564- 5928 13 May, 2017 [facility] [id number] [place] [address] 52541- 2273 10 May, 2017 [facility] [id number] [place] [address] 69496- 8551 07 May, 2017 Chronic posttraumatic stress disorder F43.12 ; Panic disorder with agoraphobia F40.01 ; Undifferentiated schizophrenia F20.3 ; BMI 40.0-44.9, adult Z68.41 and Obesity E66.9 [facility] [id number] [place] [address] 94249- 2637 07 May, 2017 Shortness of breath R06.02 [facility] [id number] [place] [address] 39314- 4196 May, [facility] [id number] [place] [address] 59518- 6573 Apr, Undifferentiated schizophrenia F20.3 [facility] [id number] [place] [address] 92703- 4717 Apr, [facility] [id number] [place] [address] 70016- 8465 Apr, [facility] [id number] [place] [address] 00564- 3074 Mar, Undifferentiated schizophrenia F20.3 ; Panic disorder without agoraphobia F41.0 and Chronic posttraumatic stress disorder F43.12 [facility] [id number] [place] [address] 21036- 1368 19 Mar, 2017 Undifferentiated schizophrenia F20.3 [facility] [id number] [place] [address] 85686- 3879 18 Mar, 2017 [facility] [id number] [place] [address] 91667- 5289 08 Mar, 2017 [facility] [id number] [place] [address] 70683- 6459 Mar, [facility] [id number] [place] [address] 50163- 9211 Jan, Undifferentiated schizophrenia F20.3 [facility] [id number] [place] [address] 96097- 9445 Jan, [facility] [id number] [place] [address] 40279- 8314 Jan, [facility] [id number] [place] [address] 92671- 0903 Jan, [id number] [id number] Dec, Needle stick injury W27.3XXA [facility] [id number] [place] [address] 99622- 9920 Dec, Needle stick injury W27.3XXA [facility] [id number] [place] [address] 03755- 1942 Dec, Undifferentiated schizophrenia F20.3 [facility] [id number] [place] [address] 59384- 6119 Dec, [facility] [id number] [place] [address] 06694- 2535 Dec, [facility] [id number] [place] [address] 05268- 3634 Dec, Undifferentiated schizophrenia F20.3 ; Panic disorder with agoraphobia F40.01 and Chronic posttraumatic stress disorder F43.12 [facility] [id number] [place] [address] 75749- 9557 Dec, [facility] [id number] [place] [address] 64903- 2353 October, [facility] [id number], [place] [address]- 5826 October, Undifferentiated schizophrenia F20.3 [facility] [id number] [place] [address] 15066- 1673 October, [facility] [id number] [place] [address] 81878- 9707 October, [facility] [id number] [place] [address] 17647- 7326 Oct, Undifferentiated schizophrenia F20.3 ; Panic disorder with agoraphobia F40.01 ; Chronic posttraumatic stress disorder F43.12 and Obesity E66.9 [facility] [id number] [place] [address] 91410- 2895 Oct, [facility] [id number] [place] [address] 04409- 8724 Oct, [facility] [id number] [place] [address] 58093- 4734 Aug, Undifferentiated schizophrenia F20.3 [facility] [id number] [place] [address] 40447- 7938 Aug, [facility] [id number] [place] [address] 59751- 3247 Aug, Muscle spasm M62.838 [facility] [id number] [place] [address] 39515- 9187 Aug, Undifferentiated schizophrenia F20.3 [facility] [id number] [place] [address] 48578- 3763 Aug, Undifferentiated schizophrenia F20.3 ; Panic disorder with agoraphobia F40.01 ; Chronic posttraumatic stress disorder F43.12 ; High risk medication use Z79.899 and Social phobia F40.10 [facility] [address], [place] [address]- 6695 Aug, Undifferentiated schizophrenia F20.3 [facility] [id number] [place] [address] 95069- 0713 Aug, [facility] [address], [place] [address]- 8506 14 Aug, 2016 Acute non-recurrent maxillary sinusitis J01.00 [facility] [address], [place] [address]- 1361 10 Aug, 2016 [facility] [id number] [place] [address] 14007- 0846 Aug, [facility] [id number] [place] [address] 68439- 1893 Jul, Undifferentiated schizophrenia F20.3 [facility] [id number] [place] [address] 03106- 8306 Jul, Schizophrenia, undifferentiated F20.3 ; Social phobia F40.10 ; Post-traumatic stress disorder F43.10 ; Panic disorder F41.0 and Depressive disorder, not elsewhere classified F32.9 [facility] [id number] [place] [address] 54555- 9293 Jul, [facility] [id number] [place] [address] 77674- 5563 Jul, Schizophrenia, undifferentiated F20.3 ; Social phobia F40.10 ; Post-traumatic stress disorder F43.10 ; Panic disorder F41.0 and Depressive disorder, not elsewhere classified F32.9 [facility] [address], [place] [address]- 1984 Jul, [facility] [address], [place] [address]- 3425 Jul, Undifferentiated schizophrenia F20.3 ; Panic disorder with agoraphobia F40.01 ; Social phobia F40.10 ; Obesity E66.9 and Chronic posttraumatic stress disorder F43.12 [facility] [address], [place] [address]- 6322 Jun, [facility] [id number] [place] [address] 31346- 5574 Jun, [facility] [id number] [place] [address] 36325- 9265 Jun, Dental caries K02.9 [facility] [id number] [place] [address] 87670- 9765 Jun, Undifferentiated schizophrenia F20.3 [facility] [id number] [place] [address] 35359- 6095 30 May, 2016 [facility] [id number] [place] [address] 11215- 2256 May, Undifferentiated schizophrenia F20.3 ; Panic disorder with agoraphobia F40.01 and Chronic post-traumatic stress disorder (PTSD) F43.12 [facility] [id number] [place] [address] 61035- 5031 May, [facility] [id number] [place] [address] 86220- 1889 May, Undifferentiated schizophrenia F20.3 [facility] [id number] [place] [address] 67959- 6302 May, [facility] [id number] [place] [address] 39118- 4066 07 May, 2016 Dental examination Z01.20 [facility] [id number] [place] [address] 74237- 0168 Apr, Undifferentiated schizophrenia F20.3 ; PTSD (post-traumatic stress disorder) F43.10 and Obesity E66.9 [facility] [id number] [place] [address] 26489- 3054 18 Apr, 2016 [facility] [id number] [place] [address] 25469- 1006 15 Mar, 2016 [facility] [id number] [place] [address] 16893- 9606 09 Mar, 2016 [facility] [id number] [place] [address] 75070- 3436 Jan, Shortness of breath R06.02 and Bipolar disorder with psychotic features F31.9 [facility] [id number] [place] [address] 06593- 2905 Jan, [facility] [id number] [place] [address] 52031- 2739 Jan, Increased intracranial pressure G93.2 ; Visual disturbance H53.9 and Bipolar II disorder F31.81 [facility] [id number] [place] [address] 26096- 3175 Jan, [facility] [id number] [place] [address] 32368- 6444 Jan, [facility] [id number] [place] [address] 23646- 0275 Jan, [facility] [id number] [place] [address] 68019- 1698 Jan, Acquired hypothyroidism E03.9 ; Depression F32.9 and Insomnia G47.00 [facility] [id number] [place] [address] 72963- 8111 Jan, Exertional dyspnea R06.09 ; Heart palpitations R00.2 ; Hyperlipidemia, unspecified hyperlipidemia type E78.5 ; Hypothyroidism, unspecified type E03.9 and Hypokalemia E87.6 [facility] [id number] [place] [address] 61442- 9114 Dec, PTSD (post-traumatic stress disorder) F43.10 ; Depression F32.9 ; Insomnia G47.00 and Bipolar disorder with psychotic features F31.9 [facility] [id number] [place] [address] 31166- 2491 Dec, Increased intracranial pressure G93.2 [facility] [id number] [place] [address] 62561- 9725 Dec, [facility] [id number] [place] [address] 45430- 2664 Dec, Shortness of breath R06.02 [facility] [id number] [place] [address] 17424- 9022 05 Jan, 2016 Visual disturbance H53.9 and Headache, unspecified headache type R51 [facility] [id number] [place] [address] 82117- 0074 Dec, Insomnia G47.00 [facility] [address] 10637- 2935 Dec, Murmur R01.1 [facility] [facility] [address] 69055- 3267 Dec, Murmur R01.1 ; Tunnel vision, unspecified laterality H53.489 ; Orthostatic hypertension I10 ; Shortness of breath R06.02 and Tachycardia R00.0 [place] [id number] [place] [address] 62437- 6262 Dec, [facility] [id number] [place] [address] 08307- 0485 Dec, Hypothyroid E03.9 and Bipolar 1 disorder F31.9 [facility] [id number] [place] [address] 85123- 7335 Dec, Bipolar 1 disorder F31.9 [facility] [id number] [place] [address] 87336- 4032 Dec, [facility] [id number] [place] [address] 77733- 1505 October, Acquired hypothyroidism E03.9 ; Depression F32.9 and Insomnia G47.00 [facility] [id number] [place] [address] 84636- 1335 October, [facility] [id number] [place] [address] 44050- 3145 October, Bipolar 1 disorder F31.9 ; PTSD (post-traumatic stress disorder) F43.10 and Social phobia F40.10 [place] [place] [id number] [place] [address] 72847- 0496 27 Oct, 2015 Bipolar 1 disorder F31.9 and Insomnia G47.00 [facility] [id number] [place] [address] 92036- 4373 Oct, [facility] [id number] [place] [address] 40328- 8457 Oct, [facility] [id number] [place] [address] 94244- 8788 Aug, Hypothyroid E03.9 [facility] [id number] [place] [address] 32335- 1993 Aug, Encounter for therapeutic drug level monitoring Z51.81 and Other residential (current) drug therapy Z79.899 [facility] [id number] [place] [address] 53664- 6827 Aug, Encounter for therapeutic drug level monitoring Z51.81 [facility] [id number] [place] [address] 35955- 5612 Aug, Acquired hypothyroidism E03.9 ; Leg pain M79.606 and Bipolar 1 disorder F31.9 [facility] [id number] [place] [address] 69188- 5744 Aug, [facility] [id number] [place] [address] 41376- 5828 Aug, [facility] [id number] [place] [address] 66580- 5876 Jul, Thyroid disorder E07.9 [facility] [id number] [place] [address] 40161- 4024 Jul, Rash R21 ; Abnormal LFTs R94.5 ; Acquired hypothyroidism E03.9 ; Sleep apnea in adult G47.33 and Fatty liver K76.0 [facility] [id number] [place] [address] 91242- 3048 Jun, [place] [address], [place] [address]- 4397 Jun, [facility] [id number] [place] [address] 106106- 8116 Jun, Bipolar II disorder F31.81 and Social phobia, generalized F40.11 [facility] [id number] [place] [address] 12580- 4876 Mar, Bipolar II disorder 296.89 and Social phobia 300.23 [facility] [id number] [place] [address] 69564- 7142 Dec, [facility] [id number] [place] [address] 35759- 1611 Dec, [facility] [id number] [place] [address] 211527- 3750 Dec, Bipolar II disorder in partial or unspecified remission 296.89 and Social phobia, generalized 300.23 [facility] [id number] [place] [address] 37389- 1052 30 Oct, 2014 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 [facility] [id number] [place] [address] 55502- 0842 14 Oct, 2014 [facility] [id number] [place] [address] 52646- 5367 Oct, [facility] [id number] [place] [address] 27763- 5940 Aug, [facility] [id number] [place] [address] 305787- 0248 Aug, [facility] [id number] [place] [address] 46354- 4299 Aug, [facility] [id number] [place] [address] 87438- 2226 Aug, [facility] [id number] [place] [address] 45071- 7001 Aug, [facility] [address] [id number] [place] [address]- 3820 Aug, [facility] [place] [facility] [address] [id number] [place] [address]- 2182 Aug, [facility] [place] [facility] [address] [id number] [place] 3199 Aug, [facility] [place] [facility] [address] [id number] [place] [address] Jul, [facility] [place] [facility] [address] [id number] [place] [address] Jul, [facility] [place] [facility] [address] [id number] [place] [address] Jul, [facility] [place] [facility] [address] [id number] [place] [address] Jul, [facility] [place] [facility] [address] [id number] [place] [address] Jul, [facility] [place] [facility] [address] [id number] [place] [address] Jul, [facility] [place] [facility] [address] [id number] [place] [address] Jun, [facility] [place] [facility] [address] [id number] [place] [address] Jun, [facility] [place] [facility] [address] [id number], [place] [address] Jun, [facility] [place] [facility] [address] [id number] [place] [address] Jun, [facility] [place] [facility] [address] [id number] [place] [address] Jun, [facility] [place] [facility] [address] [id number] [place] [address] Jun, [facility] [place] [facility] [address] [id number] [place] [address] Jun, [facility] [place] [facility] [address] [id number] [place] [address] Jun, [facility] [place] [facility] [address] [id number] [place] [address] Jun, [facility] [place] [facility] [address] [id number] [place] [address] Jun, [facility] [place] [facility] [address] [id number] [place] [address] Jun, [facility] [place] [facility] [address] [id number] [place] [address] Jun, [facility] [place] [facility] [address] [id number] [place] [address] Jun, [facility] [place] [facility] [address] [id number] [place] [address] Jun, [facility] [place] [facility] [address] [address] [id number] [place] [address] Jun, [facility] [place] [facility] [address] [id number] [place] [address] Jun, [facility] [place] [facility] [address] [facility] [id number] [place] [address] May, [facility] [place] [facility] [address] [id number] [place] [address] 95[address] May, [facility] [place] [facility] [address] [id number], [place] [address] May, [facility] [place] [facility] [address] [id number] [place] [address] 7270 May, [facility] [place] [facility] [address] [id number] [place] [address] 96[address] May, [facility] [place] [facility] [address] [facility] [id number], [place] [address] May, [facility] [place] [facility] [address] [id number] [place] [address]- 9560 Apr, [facility] [place] [facility] [address] [id number] [place] [address] Apr, [facility] [place] [facility] [address] [id number] [place] [address] Apr, [facility] [place] [facility] [address] [id number] [place] [address] 488[address] Apr, [facility] [place] [facility] [address] [id number] [place] [address]- 1075 Apr, [facility] [place] [facility] [address] [id number] [place] [address] 50[address] Apr, [facility] [place] [facility] [address] [id number] [place] [address] Mar, [facility] [place] [facility] [address] [id number] [place] [address] 275[address] Mar, [facility] [place] [facility] [address] [id number] [place] [address] 3847 Mar, [facility] [place] [facility] [address] [id number] [place] [address] 0[address] Mar, [facility] [place] [facility] [address] [id number] [place] [address] 2180 Jan, [facility] [place] [facility] [address] [id number] [place] [address] Jan, [facility] [place] [facility] [address] [id number] [place] [address] 8[address] Jan, [facility] [place] [facility] [address] [id number] [place] [address]- 6604 Jan, [facility] [place] [facility] [address] [id number] [place] [address] 9397 Jan, [facility] [place] [facility] [address] [id number] [place] [address] 0832 Jan, [facility] [place] [facility] [address] [id number] [place] [address]- 7421 Dec, [facility] [place] [facility] [address] [id number] [place] [address]- 4385 Dec, [facility] [place] [facility] [address] [id number] [place] [address]- 5297 Dec, [facility] [place] [facility] [address] [id number] [place] [address]- 6741 Dec, [facility] [place] [facility] [address] [id number] [place] [address] 9[address] Dec, [facility] [place] [facility] [address] [id number] [place] [address] 5791 Dec, [facility] [place] [facility] [address] [id number] [place] [address] 8111 October, [facility] [place] [facility] [address] [id number] [place] [address]- 5640 October, [facility] [place] [facility] [address] [id number] [place] [address] 6333 October, [facility] [place] [facility] [address] [id number] [place] [address]- 2027 October, [facility] [place] [facility] [address] [id number] [place] [address]- 7878 October, [facility] [place] [facility] [address] [id number] [place] [address]- 1035 October, [facility] [place] [facility] [address] [id number] [place] [address]- 6767 October, [facility] [place] [facility] [address] [id number] [place] [address] 2865 October, [facility] [place] [facility] [address] [id number] [place] [address] 6157 Oct, [facility] [place] [facility] [address] [id number] [place] [address] 0108 Oct, [facility] [address] [id number] [place] [address] 1802 Oct, [facility] [place] [facility] [address] [id number] [place] [address] Oct, [facility] [place] [facility] [address] [id number] [place] [address]- 9776 Oct, [facility] [place] [facility] [address] [id number] [place] [address] 7559 Aug, [facility] [place] [facility] [address] [id number] [place] [address] 0197 Aug, [facility] [place] [facility] [address] [id number] [place] [address] 0728 Aug, [facility] [place] [facility] [address] [id number] [place] [address] 4[address] Aug, [facility] [place] [facility] [address] [id number] [place] [address] 7661 Aug, [facility] [place] [facility] [address] [id number] [place] [address]- 0572 Aug, [facility] [place] [facility] [address] [facility] [id number] [place] [address] 8067 Jul, [facility] [place] [facility] [address] [id number] [place] [address]- 3890 Jul, [facility] [place] [facility] [address] [id number] [place] [address] 5171 Jul, [facility] [place] [facility] [address] [id number] [place] [address] Jul, [facility] [place] [facility] [address] [id number] [place] [address]- 9290 Jul, [facility] [place] [facility] [address] [id number] [place] [address]- 7507 Jul, [facility] [address] [id number] [place] [address]- 1146 Jun, [facility] [place] [facility] [address] [id number] [place] [address]- 0706 Jun, [facility] [place] [facility] [address] [id number] [place] [address]- 4854 Jun, [facility] [place] [facility] [address] [id number] [place] [address]- 5529 Jun, [facility] [place] [facility] [address] [id number] [place] [address] 0834 Jun, [facility] [place] [facility] [address] [id number] [place] [address]- 9393 Jun, [facility] [place] [facility] [address] [id number] [place] [address]- 7582 May, [facility] [place] [facility] [address] [id number], [place] [address] 1787 May, [facility] [place] [facility] [address] [id number] [place] [address]- 9643 Apr, [facility] [place] [facility] [address] [id number], [place] [address] 5534 Apr, [facility] [place] [facility] [address] [id number], [place] [address]- 0879 Apr, [facility] [place] [facility] [address] [id number], [place] [address]- 2181 Apr, [facility] [place] [facility] [address] [id number] [place] [address]- 9389 Apr, [facility] [place] [facility] [address] [id number], [place] [address]- 3328 Apr, [facility] [place] [facility] [address] [id number] [place] [address]- 2232 Apr, [facility] [place] [facility] [address] [id number] [place] [address]- 4817 18 Apr, 2013 [facility] [place] [facility] [address] [id number] [place] [address]- 6095 18 Apr, 2013 [facility] [place] [facility] [address] [id number] [place] [address]- 0213 04 Apr, 2013 [facility] [place] [facility] [address] [id number] [place] [address]- 6353 02 Apr, 2013 [facility] [place] [facility] [address] [id number] [place] [address]- 4633 23 Mar, 2012 [facility] [place] [facility] [address] [id number] [place] [address]- 9166 20 Mar, 2013 [facility] [place] [facility] [address] [id number] [place] [address]- 5829 20 Mar, 2012 [facility] [place] [facility] [address] [id number] [place] [address]- 7991 14 Mar, 2013 [facility] [place] [facility] [address] [id number] [place] [address]- 0257 12 Mar, 2013 [facility] [place] [facility] [address] [id number] [place] [address]- 1044 06 Mar, 2013 [facility] [place] [facility] [address] [id number] [place] [address]- 9730 06 Mar, 2013 [facility] [place] [facility] [address] [id number] [place] [address]- 1975 19 Jan, 2013 [facility] [place] [facility] [address] [id number] [place] [address]- 9978 14 Jan, 2013 [facility] [place] [facility] [address] [id number] [place] [address]- 9213 Jan, [facility] [place] [facility] [address] [id number] [place] [address]- 0294 Jan, [facility] [place] [facility] [address] [id number] [place] [address]- 8933 08 Jan, 2013 [facility] [place] [facility] [address] [id number] [place] [address]- 5095 Jan, [facility] [address] [id number] [place] [address]- 9581 Jan, [facility] [address] [id number] [place] [address]- 4577 Dec, [facility] [address] [id number] [place] [address]- 9632 Dec, [facility] [address] [id number] [place] [address]- 0944 Dec, [facility] [address] [id number] [place] [address]- 7926 Dec, [facility] [address] [id number] [place] [address]- 3898 Dec, [facility] [address] [id number] [place] [address]- 1388 Dec, [facility] [address] [id number] [place] [address]- 7641 October, [facility] [address] [id number] [place] [address]- 1264 October, [facility] [address] [id number] [place] [address]- 2740 October, [facility] [address] [id number] [place] [address]- 4858 October, [facility] [address] [id number] [place] [address]- 1027 Oct, [facility] [place] [facility] [address] [id number] [place] [address]- 8797 Oct, [facility] [address] [id number] [place] [address]- 0802 Aug, [facility] [place] [facility] [address] [id number] [place] [address]- 8077 26 Aug, 2012 [facility] [address] [id number] [place] [address]- 3477 Aug, [facility] [address] [id number] [place] [address]- 0367 Aug, [facility] [address] [facility] [id number] [place] [address]- 5672 18 Aug, 2012 [facility] [address] [id number] [place] [address]- 1728 Aug, [facility] [address] [id number] [place] [address]- 3924 Aug, [facility] [address] [facility] [id number] [place] [address]- 1484 Aug, [facility] [address] [facility] [id number] [place] [address]- 1534 Aug, [facility] [address] [id number] [place] [address]- 5626 Aug, [facility] [address] [facility] [id number] [place] [address]- 0962 Aug, [facility] [address] [facility] [id number] [place] [address]- 2823 08 Aug, 2012 [facility] [address] [facility] [id number] [place] [address]- 9566 Aug, [facility] [place] [facility] [address] [facility] [id number] [place] [address]- 0640 Aug, [facility] [place] [facility] [address] [facility] [id number] [place] [address]- 6940 Jul, [facility] [place] [facility] [address] [facility] [id number] [place] [address]- 6595 Jul, [facility] [place] [facility] [address] [facility] [id number], [place] [address]- 9463 Jul, [facility] [place] [facility] [address] [facility] [id number][place] [address] Jul, [facility] [address] [id number], [place] [address] 5741 Jun, [facility] [address] [facility] [id number][place] 3308 Jun, [facility] [address] [id number] [address]12 Jun, [facility] [address] [id number], [place] [address]- 5011 Jun, [facility] [address] [id number], [place] [address]- 3516 May, [facility] [address] [facility] [id number], [place] [address]- 3508 May, IMMUNIZATIONS No Known Immunizations SOCIAL HISTORY Never Assessed REASON FOR VISIT Repository Medication PLAN OF CARE VITAL SIGNS MEDICATIONS Medication Instructions Dosage Frequency Start Date End Date Duration Status Whetstone Carbonate 300 MG Orally 2 times a day (For Mood) 1 tablet in the morning, 2 tablets at bedtime 60 days Active Levothyroxine Sodium 100 MCG Orally [...]
--- OUTSIDE RECORDS SUMMARY | 2018-09-02 18:11 | XMS REPORT ---
Author Author AMARI HOWARD 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 Name Role Phone AMARI HOWARD Unavailable PROBLEMS Type Condition ICD9-CM Code [id number] Code Onset Dates Condition Status SNOMED Code Problem Panic disorder with agoraphobia F40.01 Active 67338844 Problem Depressive disorder, not elsewhere classified F32.9 Active 96454103 Problem Chronic posttraumatic stress disorder F43.12 Active 601648649 Problem Insomnia G47.00 Active 507747671 Problem Obesity E66.9 Active 970108214 Problem Other chronic pain G89.29 Active 50923269 Problem Fatty liver K76.0 Active 948978831 Problem Abuse, drug or alcohol F19.10 Active 39889424 Problem Panic disorder without agoraphobia F41.0 Active 55916898 Problem Panic disorder F41.0 Active 186047932 Problem Hypothyroid E03.9 Active 33433114 Problem BMI 50.0-59.9, adult Z68.43 Active 660536017 Problem Restless legs syndrome G25.81 Active 349622190 Problem Encounter for therapeutic drug level monitoring Z51.81 Active 966854989 Problem Neuropathy G62.9 Active 021419244 Problem Social phobia F40.10 Active 26875991 Problem Tachycardia R00.0 Active 8891681 Problem Murmur R01.1 Active 786858477 Problem Orthostatic hypertension I10 Active 66814410 Problem Shortness of breath R06.02 Active 972569653 Problem Sleep apnea in adult G47.33 Active 68093226 Problem Tunnel vision, unspecified laterality H53.489 Active 856294138 Problem Undifferentiated schizophrenia F20.3 Active 580469305 ALLERGIES No Information ENCOUNTERS Encounter Location Date Diagnosis [facility] [address] [facility] [id number] [address] 18 Apr, 2018 [facility] [address] [address] 6[address] Dec, [facility] [id number] [place] [address] 76598- 6776 Dec, [facility] [id number] [address] 7784 Dec, [facility] [id number] [place] [address] 94918- 5141 Dec, Undifferentiated schizophrenia F20.3 ; Panic disorder with agoraphobia F40.01 ; Chronic posttraumatic stress disorder F43.12 and BMI 50.0- 59.9, adult Z68.43 [facility] [id number] [place] [address] 92743- 4707 Dec, [facility] [id number] [place] [address] 83991- 2342 Dec, Undifferentiated schizophrenia F20.3 ; Insomnia G47.00 and Thyroid disorder E07.9 [facility] [id number] [place] [address] 03808- 5192 Dec, Undifferentiated schizophrenia F20.3 [facility] [id number] [place] [address] 69036- 8903 Dec, [facility] [id number] [address]- 1339 Dec, [facility] [id number] [place] [address] 34990- 4920 Dec, BMI 50.0-59.9, adult Z68.43 ; Undifferentiated schizophrenia F20.3 ; Panic disorder without agoraphobia F41.0 and Chronic posttraumatic stress disorder F43.12 [facility] [address] [address]- 0258 Dec, [facility] [address] [address] 9438 October, [facility] [id number] [place] [address] 24106- 9936 October, Pain in right shoulder M25.511 and Other chronic pain G89.29 [facility] [id number] [place] [address] 72479- 9536 October, Hypothyroid E03.9 [facility] [id number] [place] [address] 61692- 0501 Oct, Undifferentiated schizophrenia F20.3 [facility] [id number] [place] [address] 44109- 9104 Oct, [facility] [id number] [place] [address] 76770- 4132 Oct, [facility] [id number] [place] [address] 66572- 4300 Aug, Undifferentiated schizophrenia F20.3 [facility] [id number] [place] [address] 10733- 3931 Aug, [facility] [id number] [place] [address] 63484- 7657 Aug, Undifferentiated schizophrenia F20.3 ; Panic disorder with agoraphobia F40.01 ; Chronic posttraumatic stress disorder F43.12 and BMI 50.0- 59.9, adult Z68.43 [facility] [address] [address]- 7113 Aug, [facility] [id number] [place] [address] 79503- 6018 Aug, [facility] [id number] [place] [address] 08942- 3588 Aug, Undifferentiated schizophrenia F20.3 [facility] [id number] [place] [address] 04592- 3812 Aug, Hypothyroid E03.9 [facility] [address] [address]- 9553 Jul, Undifferentiated schizophrenia F20.3 [facility] [id number] [place] [address] 86296- 5566 Jul, [facility] [id number] [place] [address] 71539- 2396 Jul, Undifferentiated schizophrenia F20.3 ; Chronic posttraumatic stress disorder F43.12 ; Panic disorder with agoraphobia F40.01 and BMI 50.0-59.9, adult Z68.43 [facility] [id number] [place] [address] 23517- 0713 15 Jul, 2017 [facility] [id number] [place] [address] 56745- 8763 Jul, Acute pain of right shoulder M25.511 ; High risk medication use Z79.899 ; Needle stick injury W27.3XXA ; Hypothyroid E03.9 and BMI 50.0-59.9 , adult Z68.43 [facility] [id number] [place] [address] 96669- 7119 Jun, Undifferentiated schizophrenia F20.3 [facility] [id number] [place] [address] 25681- 2868 14 Jun, 2017 Undifferentiated schizophrenia F20.3 ; Panic disorder without agoraphobia F41.0 ; Chronic posttraumatic stress disorder F43.12 and BMI 50.0-59.9, adult Z68.43 [facility] [id number] [place] [address] 64654- 4230 May, [facility] [id number] [place] [address] 37057- 4995 May, [facility] [id number] [place] [address] 58324- 3730 May, Undifferentiated schizophrenia F20.3 [facility] [id number] [place] [address] 27318- 1248 May, [facility] [id number] [place] [address] 45633- 2095 May, [facility] [id number] [place] [address] 66263- 6440 15 May, 2017 Hypothyroid E03.9 [facility] [address] 58879- 0992 13 May, 2017 [facility] [id number] [place] [address] 52885- 6172 10 May, 2017 [facility] [address] 79822- 5846 07 May, 2017 Chronic posttraumatic stress disorder F43.12 ; Panic disorder with agoraphobia F40.01 ; Undifferentiated schizophrenia F20.3 ; BMI 40.0-44.9, adult Z68.41 and Obesity E66.9 [facility] [id number] [place] [address] 86336- 9725 07 May, 2017 Shortness of breath R06.02 [facility] [id number] [place] [address] 73564- 8155 May, [facility] [id number] [place] [address] 27358- 6333 Apr, Undifferentiated schizophrenia F20.3 [facility] [id number] [place] [address] 95748- 9726 Apr, [facility] [id number] [place] [address] 74673- 9882 Apr, [facility] [id number] [place] [address] 71418- 3582 Mar, Undifferentiated schizophrenia F20.3 ; Panic disorder without agoraphobia F41.0 and Chronic posttraumatic stress disorder F43.12 [facility] [id number] [place] [address] 85711- 8725 Mar, Undifferentiated schizophrenia F20.3 [facility] [id number] [place] [address] 54799- 2949 18 Mar, 2017 [facility] [id number] [place] [address] 19220- 3513 08 Mar, 2017 [facility] [address] [address]- 2454 Mar, [facility] [id number] [place] [address] 59957- 4308 Jan, Undifferentiated schizophrenia F20.3 [facility] [id number] [place] [address] 57591- 5633 Jan, [facility] [id number] [place] [address] 89836- 1402 Jan, [facility] [id number] [place] [address] 48551- 8709 Jan, [id number] [id number] Dec, Needle stick injury W27.3XXA [facility] [id number] [place] [address] 91876- 1334 Dec, Needle stick injury W27.3XXA [facility] [id number] [place] [address] 46114- 9725 Dec, Undifferentiated schizophrenia F20.3 [facility] [id number] [place] [address] 17917- 6260 Dec, [facility] [id number] [place] [address] 09862- 0181 Dec, [facility] [id number] [place] [address] 62965- 5468 Dec, Undifferentiated schizophrenia F20.3 ; Panic disorder with agoraphobia F40.01 and Chronic posttraumatic stress disorder F43.12 [facility] [id number] [place] [address] 28416- 4698 Dec, [facility] [id number] [place] [address] 41980- 3644 October, [facility] [id number] [place] [address] 08540- 8470 October, Undifferentiated schizophrenia F20.3 [facility] [address] [address]- 4196 October, [facility] [address] [address]- 2206 October, [facility] [id number] [place] [address] 66678- 3356 Oct, Undifferentiated schizophrenia F20.3 ; Panic disorder with agoraphobia F40.01 ; Chronic posttraumatic stress disorder F43.12 and Obesity E66.9 [facility] [id number] [place] [address] 11377- 9557 Oct, [facility] [id number] [place] [address] 43027- 9198 Oct, [facility] [id number] [place] [address] 99070- 6047 Aug, Undifferentiated schizophrenia F20.3 [facility] [address] [address]- 5009 Aug, [facility] [id number] [place] [address] 98150- 0156 Aug, Muscle spasm M62.838 [facility] [address] [address]- 8109 Aug, Undifferentiated schizophrenia F20.3 [facility] [address] [address]- 4635 Aug, Undifferentiated schizophrenia F20.3 ; Panic disorder with agoraphobia F40.01 ; Chronic posttraumatic stress disorder F43.12 ; High risk medication use Z79.899 and Social phobia F40.10 [facility] [address] [address]- 7542 Aug, Undifferentiated schizophrenia F20.3 [facility] [address] [address]- 5087 20 Aug, 2016 [facility] [address] [address]- 3041 14 Aug, 2016 Acute non-recurrent maxillary sinusitis J01.00 [facility] [address] [address]- 4161 10 Aug, 2016 [facility] [id number] [place] [address] 73414- 1705 Aug, [facility] [id number] [place] [address] 14237- 0719 Jul, Undifferentiated schizophrenia F20.3 [facility] [id number] [place] [address] 93207- 4786 Jul, Schizophrenia, undifferentiated F20.3 ; Social phobia F40.10 ; Post-traumatic stress disorder F43.10 ; Panic disorder F41.0 and Depressive disorder, not elsewhere classified F32.9 [facility] [id number] [place] [address] 13182- 7377 Jul, [facility] [id number] [place] [address] 86763- 3825 Jul, Schizophrenia, undifferentiated F20.3 ; Social phobia F40.10 ; Post-traumatic stress disorder F43.10 ; Panic disorder F41.0 and Depressive disorder, not elsewhere classified F32.9 [facility] [address] [address]- 0341 Jul, [facility] [id number] [place] [address] 07872- 1823 Jul, Undifferentiated schizophrenia F20.3 ; Panic disorder with agoraphobia F40.01 ; Social phobia F40.10 ; Obesity E66.9 and Chronic posttraumatic stress disorder F43.12 [facility] [address] [address]- 1055 Jun, [facility] [id number] [place] [address] 29895- 9963 Jun, [facility] [id number] [place] [address] 72217- 2717 Jun, Dental caries K02.9 [facility] [id number] [place] [address] 67656- 2969 Jun, Undifferentiated schizophrenia F20.3 [facility] [id number] [place] [address] 88942- 9218 30 May, 2016 [facility] [id number] [place] [address] 98414- 8281 May, Undifferentiated schizophrenia F20.3 ; Panic disorder with agoraphobia F40.01 and Chronic post-traumatic stress disorder (PTSD) F43.12 [facility] [id number] [place] [address] 39823- 1670 May, [facility] [id number] [place] [address] 45015- 6213 May, Undifferentiated schizophrenia F20.3 [facility] [id number] [place] [address] 75715- 4690 May, [facility] [id number] [place] [address] 46995- 6271 07 May, 2016 Dental examination Z01.20 [facility] [id number] [place] [address] 75098- 0369 Apr, Undifferentiated schizophrenia F20.3 ; PTSD (post-traumatic stress disorder) F43.10 and Obesity E66.9 [facility] [address] [place] [address] 03349- 1183 Apr, [facility] [id number] [place] [address] 47120- 8931 15 Mar, 2016 [facility] [id number] [place] [address] 99035- 6006 Mar, [facility] [id number] [place] [address] 69753- 2669 Jan, Shortness of breath R06.02 and Bipolar disorder with psychotic features F31.9 [id number] [place] [address] 24564- 2474 Jan, [facility] [id number] [place] [address] 70106- 1363 Jan, Increased intracranial pressure G93.2 ; Visual disturbance H53.9 and Bipolar II disorder F31.81 [address] [id number] [place] [address] 48278- 6406 Jan, [id number] [place] [address] 85477- 8316 Jan, [id number] [place] [address] 86224- 7234 Jan, [id number] [place] [address] 99317- 1157 Jan, Acquired hypothyroidism E03.9 ; Depression F32.9 and Insomnia G47.00 [place] [id number] [place] [address] 95997- 6466 Jan, Exertional dyspnea R06.09 ; Heart palpitations R00.2 ; Hyperlipidemia, unspecified hyperlipidemia type E78.5 ; Hypothyroidism, unspecified type E03.9 and Hypokalemia E87.6 [place] [id number] [place] [address] 19759- 4994 Dec, PTSD (post-traumatic stress disorder) F43.10 ; Depression F32.9 ; Insomnia G47.00 and Bipolar disorder with psychotic features F31.9 [place] [id number] [place] [address] 79691- 0210 Dec, Increased intracranial pressure G93.2 [place] [id number] [place] [address] 98639- 6115 Dec, [address] [id number] [place] [address] 77852- 8583 Dec, Shortness of breath R06.02 [place] [id number] [place] [address] 32748- 5872 05 Jan, 2016 Visual disturbance H53.9 and Headache, unspecified headache type R51 [place] [id number] [place] [address] 86655- 4510 Dec, Insomnia G47.00 [place] [address] 29136- 2323 Dec, Murmur R01.1 [place] [address] 89502- 4503 Dec, Murmur R01.1 ; Tunnel vision, unspecified laterality H53.489 ; Orthostatic hypertension I10 ; Shortness of breath R06.02 and Tachycardia R00.0 [place] [id number] [place] [address] 85521- 4241 Dec, [place] [id number] [place] [address] 76930- 7937 Dec, Hypothyroid E03.9 and Bipolar 1 disorder F31.9 [address] [address] 06818- 3084 Dec, Bipolar 1 disorder F31.9 [place] [id number] [place] [address] 48928- 5559 Dec, [place] [id number] [place] [address] 96368- 7000 October, Acquired hypothyroidism E03.9 ; Depression F32.9 and Insomnia G47.00 [place] [id number] [place] [address] 40683- 2430 October, [place] [id number] [place] [address] 89162- 8778 October, Bipolar 1 disorder F31.9 ; PTSD (post-traumatic stress disorder) F43.10 and Social phobia F40.10 [place] [id number] [place] [address] 89639- 1071 Oct, Bipolar 1 disorder F31.9 and Insomnia G47.00 [facility] [id number] [place] [address] 66651- 1060 Oct, [facility] [id number] [place] [address] 25210- 9785 Oct, [facility] [address] 65996- 7865 Aug, Hypothyroid E03.9 [place] [id number] [place] [address] 78519- 5767 Aug, Encounter for therapeutic drug level monitoring Z51.81 and Other penitentiary (current) drug therapy Z79.899 [place] [id number] [place] [address] 50485- 5520 Aug, Encounter for therapeutic drug level monitoring Z51.81 [place] [id number] [place] [address] 30423- 5409 Aug, Acquired hypothyroidism E03.9 ; Leg pain M79.606 and Bipolar 1 disorder F31.9 [place] [id number] [place] [address] 03019- 4261 Aug, [place] [id number] [place] [address] 30255- 3508 Aug, [place] [id number] [place] [address] 40153- 8555 Jul, Thyroid disorder E07.9 [facility] [id number] [place] [address] 97881- 4413 Jul, Rash R21 ; Abnormal LFTs R94.5 ; Acquired hypothyroidism E03.9 ; Sleep apnea in adult G47.33 and Fatty liver K76.0 [facility] [id number] [place] [address] 65108- 8627 Jun, [place] [id number] [place] [address] 178312- 2303 Jun, [facility] [id number] [place] [address] 231912- 1667 Jun, Bipolar II disorder F31.81 and Social phobia, generalized F40.11 [facility] [id number] [place] [address] 89098- 4179 Mar, Bipolar II disorder 296.89 and Social phobia 300.23 [facility] [id number] [place] [address] 342894- 7058 Dec, [facility] [address] 94957- 5244 Dec, [facility] [id number] [place] [address] 490194- 2181 Dec, Bipolar II disorder in partial or unspecified remission 296.89 and Social phobia, generalized 300.23 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 [id number] [place] [address] 45838- 6584 14 Oct, 2014 [facility] [id number] [place] [address] 38898- 9070 Oct, [facility] [id number] [place] [address] 80143- 7706 Aug, [facility] [id number] [place] [address] 03938- 1638 Aug, [facility] [id number] [place] [address] 455987- 4747 Aug, [facility] [id number] [place] [address] 088383- 7435 Aug, [facility] [id number] [place] [address] 718919- 0324 Aug, [facility] [address] [id number] [place] [address]- 8369 Aug, [facility] [place] [facility] [address] [id number] [id number] [address] Aug, [facility] [place] [facility] [address] [id number] [place] [address] Aug, [facility] [place] [facility] [address] [id number] [place] [address] Jul, [facility] [place] [facility] [address] [id number] [place] [address]- [address] Jul, [facility] [place] [facility] [address] [id number] [place] [address] Jul, [facility] [place] [facility] [address] [id number] [place] [address]- [address] Jul, [facility] [place] [facility] [address] [id number] [place] [address]- [address] Jul, [facility] [place] [facility] [address] [id number] [place] [address]- [address]28 Jul, [facility] [place] [facility] [address] [id number] [place] [address]- [address] Jun, [facility] [place] [facility] [address] [id number] [place] [address] Jun, [facility] [place] [facility] [address] [id number] [place] [address]- 9267 Jun, [facility] [place] [facility] [address] [id number] [place] [address]- 1586 Jun, [facility] [place] [facility] [address] [id number] [place] [address]- 8888 Jun, [facility] [place] [facility] [address] [id number] [place] [address]- 5876 Jun, [facility] [place] [facility] [address] [id number] [address] 240[address] Jun, [facility] [place] [facility] [address] [id number] [place] [address]- 9437 Jun, [facility] [place] [facility] [address] [id number] [place] [address] Jun, [facility] [place] [facility] [address] [id number] [place] [address]- 7102 Jun, [facility] [place] [facility] [address] [id number] [place] [address]- 1914 Jun, [facility] [place] [facility] [address] [id number] [place] [address]- 47[address] Jun, [facility] [place] [facility] [address] [id number] [place] [address]- 4910 Jun, [facility] [place] [facility] [address] [id number] [place] [address]- 25[address] Jun, [facility] [place] [facility] [address] [id number] [place] [address]- [address] Jun, [facility] [place] [facility] [address] [id number] [place] [address]- 8435 Jun, [facility] [place] [facility] [address] [id number] [place] [address] May, [facility] [place] [facility] [address] [id number] [address] 1366 May, [facility] [place] [facility] [address] [id number] [place] [address]- [address] May, [facility] [place] [facility] [address] [address] [id number] [address] May, [facility] [place] [facility] [address] [id number] [place] [address] May, [facility] [place] [facility] [address] [id number] [place] [address] May, [facility] [place] [facility] [address] [id number] [place] [address] 47[address] Apr, [facility] [place] [facility] [address] [id number] [place] [address] Apr, [facility] [place] [facility] [address] [id number] [place] [address] 8[address] Apr, [facility] [place] [facility] [address] [id number] [place] [address]- 7485 Apr, [facility] [place] [facility] [address] [id number] [place] [address] 6971 Apr, [facility] [place] [facility] [address] [id number] [place] [address] 1167 Apr, [facility] [place] [facility] [address] [id number] [place] [address] Mar, [facility] [place] [facility] [address] [id number] [place] [address] 0614 Mar, [facility] [place] [facility] [address] [id number] [place] [address] 8[address] Mar, [facility] [place] [facility] [address] [id number] [place] [address] 57[address] Mar, [facility] [place] [facility] [address] [id number] [place] [address]- [address] Jan, [facility] [place] [facility] [address] [id number] [place] [address] 6359 Jan, [facility] [place] [facility] [address] [id number] [place] [address]- 6067 Jan, [facility] [place] [facility] [address] [id number] [place] [address] 94[address] Jan, [facility] [place] [facility] [address] [id number] [place] [address]- 7822 Jan, [facility] [place] [facility] [address] [id number] [place] [address]- 6793 Jan, [facility] [place] [facility] [address] [id number] [place] [address]- 6704 Dec, [facility] [place] [facility] [address] [id number] [place] [address]- 6696 Dec, [facility] [place] [facility] [address] [id number] [place] [address]- 5228 Dec, [facility] [place] [facility] [address] [id number] [place] [address]- 4272 Dec, [facility] [place] [facility] [address] [id number] [place] [address]- 0201 Dec, [facility] [place] [facility] [address] [id number] [place] [address]- 2363 Dec, [facility] [place] [facility] [address] [id number] [place] [address]- 2597 October, [facility] [place] [facility] [address] [id number] [place] [address] 1932 October, [facility] [place] [facility] [address] [id number] [place] [address]- 8158 October, [facility] [place] [facility] [address] [id number] [place] [address]- 4358 October, [facility] [place] [facility] [address] [id number] [place] [address]- 7335 October, [facility] [place] [facility] [address] [id number] [place] [address]- 3472 October, [facility] [place] [facility] [address] [id number] [place] [address]- 7729 October, [facility] [place] [facility] [address] [id number] [place] [address] October, [facility] [place] [facility] [address] [id number] [place] [address]- 6822 Oct, [facility] [place] [facility] [address] [id number] [place] [address]- 5855 Oct, [facility] [place] [facility] [address] [id number] [place] [address]- 6[address] Oct, [facility] [place] [facility] [address] [id number] [place] [address] 8131 Oct, [facility] [place] [facility] [address] [id number] [place] [address] 8634 Oct, [facility] [place] [facility] [address] [id number] [place] [address]- 7722 Aug, [facility] [place] [facility] [address] [id number] [place] [address]- 7788 Aug, [facility] [place] [facility] [address] [id number] [place] [address]- 1797 Aug, [facility] [place] [facility] [address] [id number] [place] [address]- 6355 Aug, [facility] [place] [facility] [address] [id number] [place] [address]- 4058 Aug, [facility] [place] [facility] [address] [id number] [place] [address]- 9389 Aug, [facility] [place] [facility] [address] [facility] [id number] [place] [address]- 8111 Jul, [facility] [place] [facility] [address] [id number] [place] [address]- 7966 Jul, [facility] [place] [facility] [address] [id number] [place] [address]- 2677 Jul, [facility] [place] [facility] [address] [id number] [place] [address]- 8663 Jul, [facility] [place] [facility] [address] [id number] [place] [address]- 3080 Jul, [facility] [place] [facility] [address] [id number] [place] [address]- 8716 Jul, [facility] [place] [facility] [address] [id number] [place] [address]- 9242 Jun, [facility] [place] [facility] [address] [id number] [place] [address] Jun, [facility] [place] [facility] [address] [id number] [place] [address] Jun, [facility] [place] [facility] [address] [id number] [place] [address]- 0484 Jun, [facility] [place] [facility] [address] [id number] [place] [address]- 3417 Jun, [facility] [place] [facility] [address] [id number] [place] [address]- 9554 Jun, [facility] [place] [facility] [address] [id number] [place] [address] May, [facility] [place] [facility] [address] [id number] [place] [address]- 0858 May, [facility] [place] [facility] [address] [id number] [place] [address]- 2158 Apr, [facility] [place] [facility] [address] [id number] [place] [address] 45[address] Apr, [facility] [place] [facility] [address] [id number] [place] [address] 6813 Apr, [facility] [place] [facility] [address] [id number] [place] [address]- 1074 Apr, [facility] [place] [facility] [address] [id number] [place] [address]- 3255 Apr, [facility] [place] [facility] [address] [id number] [place] 3768 Apr, [facility] [place] [facility] [address] [id number] [place] 8408 Apr, [facility] [place] [facility] [address] [id number] [place] [address]- 8902 Apr, [facility] [place] [facility] [address] [id number] [place] [address]- 2847 18 Apr, 2013 [facility] [place] [facility] [address] [id number] [place] [address]- 7863 04 Apr, 2013 [facility] [place] [facility] [address] [id number] [place] [address]- 5692 Apr, [facility] [place] [facility] [address] [id number] [place] [address]- 3875 23 Mar, 2013 [facility] [place] [facility] [address] [id number] [place] [address]- 1883 20 Mar, 2013 [facility] [place] [facility] [address] [id number] [place] [address]- 0367 20 Mar, 2013 [facility] [place] [facility] [address] [id number] [place] [address]- 9574 14 Mar, 2013 [facility] [place] [facility] [address] [id number] [place] [address]- 5732 12 Mar, 2013 [facility] [place] [facility] [address] [id number] [place] [address]- 1335 06 Mar, 2013 [facility] [place] [facility] [address] [id number] [place] [address]- 7482 06 Mar, 2013 [facility] [place] [facility] [address] [id number] [place] [address]- 5053 Jan, [facility] [place] [facility] [address] [id number] [place] [address]- 9128 Jan, [facility] [place] [facility] [address] [id number] [place] [address]- 7473 Jan, [facility] [place] [facility] [address] [id number] [place] [address]- 0216 Jan, [facility] [place] [facility] [address] [id number] [place] [address]- 5028 08 Jan, 2013 [facility] [place] [facility] [address] [id number] [place] [address]- 2546 Jan, [facility] [address] [id number] [place] [address]- 8631 Jan, [facility] [address] [id number] [place] [address]- 2546 Dec, [facility] [address] [id number] [place] [address]- 2352 Dec, [facility] [address] [id number] [place] [address]- 2541 Dec, [facility] [address] [id number] [place] [address]- 4526 Dec, [facility] [address] [id number] [place] [address]- 9802 Dec, [facility] [address] [id number] [place] [address]- 7475 Dec, [facility] [address] [id number] [place] [address]- 6159 October, [facility] [address] [id number] [place] [address]- 0736 October, [facility] [address] [id number] [place] [address]- 3887 October, [facility] [address] [id number] [place] [address]- 2546 October, [facility] [address] [id number] [place] [address]- 2545 Oct, [facility] [address] [id number] [place] [address]- 2546 Oct, [facility] [address] [id number] [place] [address]- 2546 Aug, [facility] [address] [id number] [place] [address]- 0550 Aug, [facility] [address] [id number] [place] [address]- 6021 Aug, [facility] [place] [facility] [address] [id number] [place] [address]- 2906 Aug, [facility] [place] [facility] [address] [id number] [place] [address]- 1415 18 Aug, 2012 [facility] [place] [facility] [address] [id number] [place] [address]- 0536 Aug, [facility] [place] [facility] [address] [id number] [place] [address]- 0665 Aug, [facility] [place] [facility] [address] [id number] [place] [address]- 4362 Aug, [facility] [place] [facility] [address] [id number] [place] [address]- 4369 Aug, [facility] [place] [facility] [address] [id number] [place] [address]- 4037 Aug, [facility] [place] [facility] [address] [id number] [place] [address]- 5225 Aug, [facility] [place] [facility] [address] [id number] [place] [address]- 0843 Aug, [facility] [place] [facility] [address] [id number] [place] [address]- 2199 Aug, [facility] [place] [facility] [address] [id number] [place] [address]- 1604 Aug, [facility] [place] [facility] [address] [id number] [place] [address]- 6031 Jul, [facility] [place] [facility] [address] [id number] [place] [address]- 7563 Jul, [facility] [place] [facility] [address] [id number] [place] [address]- 4162 Jul, [facility] [place] [facility] [address] [facility] [id number] [place] [address]- 5268 Jul, [facility] [address] [id number] [address]- 7847 Jun, [facility] [address] [id number] [address]- 5748 Jun, [facility] [address] [id number] [address]- 3169 Jun, [facility] [address] [id number] [address]- 0311 Jun, [facility] [address] [id number] [address]- 9453 May, [facility] [address] [id number] [address]- 4574 May, IMMUNIZATIONS Vaccine Route Administration Date Status ARISTADA 882 MG/2.5 ML (PT'S OWN) IM Intramuscular October 30, 2017 Administered SOCIAL HISTORY Never Assessed REASON FOR VISIT Injection PLAN OF CARE VITAL SIGNS MEDICATIONS Unknown Medications RESULTS No Results PROCEDURES Procedure Date Ordered Result Body Site ARISTADA 882 MG/2.5 ML (PT'S OWN) October 30, 2017 THER/PROPH/DIAG INJ, SC/IM October 30, 2017 INSTRUCTIONS MEDICATIONS ADMINISTERED No Known Medications [...]
--- OUTSIDE RECORDS SUMMARY | 2018-09-02 18:12 | XMS REPORT ---
Author Author AMARI HOWARD [facility] Address [address] [place] [address] Care Team Providers Care Feed Manager Name Role Phone AMARI HOWARD Unavailable PROBLEMS Type Condition ICD9-CM Code NVV41-DO Code Onset Dates Condition Status SNOMED Code Problem Panic disorder with agoraphobia F40.01 Active 49964036 Problem Depressive disorder, not elsewhere classified F32.9 Active 56219417 Problem Chronic posttraumatic stress disorder F43.12 Active 513530689 Problem Insomnia G47.00 Active 343993268 Problem Obesity E66.9 Active 917109347 Problem Other chronic pain G89.29 Active 25068511 Problem Fatty liver K76.0 Active 961784645 Problem Abuse, drug or alcohol F19.10 Active 56942862 Problem Panic disorder without agoraphobia F41.0 Active 76894192 Problem Panic disorder F41.0 Active 265689012 Problem Hypothyroid E03.9 Active 17645753 Problem BMI 50.0-59.9, adult Z68.43 Active 522305518 Problem Restless legs syndrome G25.81 Active 732045120 Problem Encounter for therapeutic drug level monitoring Z51.81 Active 387105937 Problem Neuropathy G62.9 Active 771354212 Problem Social phobia F40.10 Active 17544887 Problem Tachycardia R00.0 Active 2089731 Problem Murmur R01.1 Active 056475844 Problem Orthostatic hypertension I10 Active 71804151 Problem Shortness of breath R06.02 Active 275157504 Problem Sleep apnea in adult G47.33 Active 67950375 Problem Tunnel vision, unspecified laterality H53.489 Active 842739578 Problem Undifferentiated schizophrenia F20.3 Active 823113059 ALLERGIES No Information ENCOUNTERS Encounter Location Date Diagnosis [facility] [address] [facility] [id number] [address] 18 Apr, 2018 [facility] [address] [address] Dec, [facility] [id number] [place] [address] 46980- 1742 Dec, [facility] [id number] [address] 5798 Dec, [facility] [id number] [place] [address] 54713- 1453 Dec, Undifferentiated schizophrenia F20.3 ; Panic disorder with agoraphobia F40.01 ; Chronic posttraumatic stress disorder F43.12 and BMI 50.0- 59.9, adult Z68.43 [facility] [id number] [place] [address] 85464- 1983 Dec, [facility] [id number] [place] [address] 72758- 2231 Dec, Undifferentiated schizophrenia F20.3 ; Insomnia G47.00 [address] Thy[address] E[address].9 [facility] [id number] [place] [address] 79691- 6755 Dec, Undifferentiated schizophrenia F20.3 [facility] [id number] [place] [address] 33621- 9958 Dec, [facility] [id number] [address] 0719 Dec, [facility] [id number] [place] [address] 68914- 1735 Dec, BMI 50.0-59.9, adult Z68.43 ; Undifferentiated schizophrenia F20.3 ; Panic disorder without agoraphobia F41.0 and Chronic posttraumatic stress disorder F43.12 [facility] [address] [address] 88[address] Dec, [facility] [address] [address] 4989 October, [facility] [id number] [place] [address] 19417- 4143 October, Pain in right shoulder M25.511 and Other chronic pain G89.29 [facility] [id number] [place] [address] 14082- 1565 October, Hypothyroid E03.9 [facility] [id number] [place] [address] 69263- 2892 Oct, Undifferentiated schizophrenia F20.3 [facility] [id number] [place] [address] 88994- 7881 Oct, [facility] [id number] [place] [address] 19997- 7408 Oct, [facility] [id number] [place] [address] 31101- 4789 Aug, Undifferentiated schizophrenia F20.3 [facility] [id number] [place] [address] 54504- 6572 Aug, [facility] [id number] [place] [address] 21287- 5305 Aug, Undifferentiated schizophrenia F20.3 ; Panic disorder with agoraphobia F40.01 ; Chronic posttraumatic stress disorder F43.12 and BMI 50.0- 59.9, adult Z68.43 [facility] [address] [address] 0354 Aug, [facility] [id number] [place] [address] 07211- 2600 Aug, [facility] [id number] [place] [address] 46151- 9429 Aug, Undifferentiated schizophrenia F20.3 [facility] [id number] [place] [address] 51866- 7904 Aug, Hypothyroid E03.9 [facility] [address] [address] 8247 Jul, Undifferentiated schizophrenia F20.3 [facility] [id number] [place] [address] 04558- 2949 Jul, [facility] [id number] [place] [address] 27458- 5841 Jul, Undifferentiated schizophrenia F20.3 ; Chronic posttraumatic stress disorder F43.12 ; Panic disorder with agoraphobia F40.01 and BMI 50.0-59.9, adult Z68.43 [facility] [id number] [place] [address] 58020- 9615 15 Jul, 2017 [facility] [id number] [place] [address] 14050- 7030 Jul, Acute pain of right shoulder M25.511 ; High risk medication use Z79.899 ; Needle stick injury W27.3XXA ; Hypothyroid E03.9 and BMI 50.0-59.9 , adult Z68.43 [facility] [id number] [place] [address] 25777- 4317 Jun, Undifferentiated schizophrenia F20.3 [facility] [id number] [place] [address] 09446- 4051 14 Jun, 2017 Undifferentiated schizophrenia F20.3 ; Panic disorder without agoraphobia F41.0 ; Chronic posttraumatic stress disorder F43.12 and BMI 50.0-59.9, adult Z68.43 [facility] [id number] [place] [address] 78041- 8559 May, [facility] [id number] [place] [address] 13336- 1847 May, [facility] [id number] [place] [address] 12951- 0590 May, Undifferentiated schizophrenia F20.3 [facility] [id number] [place] [address] 35470- 6188 May, [facility] [id number] [place] [address] 58676- 9241 May, [facility] [id number] [place] [address] 47004- 9343 15 May, [address] [facility] [address] 84041- 5542 13 May, 2017 [facility] [id number] [place] [address] 89519- 9624 10 May, 2017 [facility] [address] 59290- 0624 07 May, 2017 Chronic posttraumatic stress disorder F43.12 ; Panic disorder with agoraphobia F40.01 ; Undifferentiated schizophrenia F20.3 ; BMI 40.0-44.9, adult Z68.[address] [facility] [id number] [place] [address] 52536- 8009 07 May, 2017 Shortness of breath R06.02 [facility] [id number] [place] [address] 95111- 2730 May, [facility] [id number] [place] [address] 83384- 9557 Apr, Undifferentiated schizophrenia F20.3 [facility] [id number] [place] [address] 54891- 1203 Apr, [facility] [id number] [place] [address] 79093- 8216 Apr, [facility] [id number] [place] [address] 96581- 7590 Mar, Undifferentiated schizophrenia F20.3 ; Panic disorder without agoraphobia F41.0 and Chronic posttraumatic stress disorder F43.12 [facility] [id number] [place] [address] 54755- 9017 Mar, Undifferentiated schizophrenia F20.3 [facility] [id number] [place] [address] 51047- 0884 18 Mar, 2017 [facility] [id number] [place] [address] 04319- 8240 08 Mar, 2017 [facility] [address] [address]- 8996 Mar, [facility] [id number] [place] [address] 47767- 0860 Jan, Undifferentiated schizophrenia F20.3 [facility] [id number] [place] [address] 77092- 8097 Jan, [facility] [id number] [place] [address] 03365- 7328 Jan, [facility] [id number] [place] [address] 64717- 0065 Jan, [id number] [id number] Dec, Needle stick injury W27.3XXA [facility] [id number] [place] [address] 68935- 0261 Dec, Needle stick injury W27.3XXA [facility] [id number] [place] [address] 29956- 7808 Dec, Undifferentiated schizophrenia F20.3 [facility] [id number] [place] [address] 50213- 2595 Dec, [facility] [address] [place] [address] 64445- 9065 Dec, [facility] [id number] [place] [address] 01661- 8027 Dec, Undifferentiated schizophrenia F20.3 ; Panic disorder with agoraphobia F40.01 and Chronic posttraumatic stress disorder F43.12 [facility] [id number] [place] [address] 95806- 7579 Dec, [facility] [id number] [place] [address] 54671- 1969 October, [facility] [id number] [place] [address] 98285- 6146 October, Undifferentiated schizophrenia F20.3 [facility] [address] [address]- 0166 October, [facility] [address] [address]- 2266 October, [facility] [id number] [place] [address] 22652- 4737 Oct, Undifferentiated schizophrenia F20.3 ; Panic disorder with agoraphobia F40.01 ; Chronic posttraumatic stress disorder F43.[address] [facility] [id number] [place] [address] 67015- 6259 Oct, [facility] [address] [place] [address] 49099- 3428 Oct, [facility] [id number] [place] [address] 63798- 5689 Aug, Undifferentiated schizophrenia F20.3 [facility] [address] [address]- 4607 Aug, [facility] [id number] [place] [address] 69815- 7472 Aug, Muscle spasm M62.838 [facility] [address] [address]- 7323 Aug, Undifferentiated schizophrenia F20.3 [facility] [address] [address]- 4797 Aug, Undifferentiated schizophrenia F20.3 ; Panic disorder with agoraphobia F40.01 ; Chronic posttraumatic stress disorder F43.12 ; High risk medication use Z79.899 and Social phobia F40.10 [facility] [address] [address]- 9023 Aug, Undifferentiated schizophrenia F20.3 [facility] [address] [address]- 8532 20 Aug, 2016 [facility] [address] [address]- 1393 14 Aug, 2016 Acute non-recurrent maxillary sinusitis J01.00 [facility] [address] [address]- 4962 10 Aug, 2016 [facility] [id number] [place] [address] 79841- 0958 Aug, [facility] [id number] [place] [address] 32129- 0770 Jul, Undifferentiated schizophrenia F20.3 [facility] [id number] [place] [address] 95785- 1743 Jul, Schizophrenia, undifferentiated F20.3 ; Social phobia F40.10 ; Post-traumatic stress disorder F43.10 ; Panic disorder F41.0 and Depressive disorder, not elsewhere classified F32.9 [facility] [id number] [place] [address] 80746- 2398 Jul, [facility] [id number] [place] [address] 21005- 3357 Jul, Schizophrenia, undifferentiated F20.3 ; Social phobia F40.10 ; Post-traumatic stress disorder F43.10 ; Panic disorder F41.0 and Depressive disorder, not elsewhere classified F32.9 [facility] [address] [address]- 5870 Jul, [facility] [id number] [place] [address] 96775- 3658 Jul, Undifferentiated schizophrenia F20.3 ; Panic disorder with agoraphobia F40.01 ; Social phobia F40.10 ; Obesity E66.9 and Chronic posttraumatic stress disorder F43.12 [facility] [address] [address]- 9161 Jun, [facility] [id number] [place] [address] 25594- 0665 Jun, [facility] [id number] [place] [address] 40385- 5161 Jun, Dental caries K02.9 [facility] [id number] [place] [address] 50354- 2477 Jun, Undifferentiated schizophrenia F20.3 [facility] [id number] [place] [address] 36172- 6306 30 May, 2016 [facility] [id number] [place] [address] 84016- 3509 May, Undifferentiated schizophrenia F20.3 ; Panic disorder with agoraphobia F40.01 and Chronic post-traumatic stress disorder (PTSD) F43.12 [facility] [id number] [place] [address] 11235- 0097 May, [facility] [id number] [place] [address] 59949- 3288 May, Undifferentiated schizophrenia F20.3 [facility] [id number] [place] [address] 01312- 8431 May, [facility] [id number] [place] [address] 86331- 7932 07 May, 2016 [address]20 [facility] [id number] [place] [address] 13347- 1565 Apr, Undifferentiated schizophrenia F20.3 ; PTSD (post-traumatic stress disorder) F43.[address] [facility] [id number] [place] [address] 32307- 1185 Apr, [facility] [id number] [place] [address] 43196- 7923 15 Mar, 2016 [facility] [id number] [place] [address] 19023- 2887 Mar, [facility] [id number] [place] [address] 44628- 9814 Jan, Shortness of breath R06.02 and Bipolar disorder with psychotic features F31.9 [id number] [place] [address] 01297- 2114 Jan, [facility] [id number] [place] [address] 19054- 6747 Jan, Increased intracranial pressure G93.2 ; Visual disturbance H53.9 and Bipolar II disorder F31.81 [place] [id number] [place] [address] 27039- 4279 Jan, [place] [id number] [place] [address] 34780- 4246 Jan, [place] [id number] [place] [address] 81530- 8191 Jan, [place] [id number] [place] [address] 34576- 6273 Jan, Acquired hypothyroidism E03.9 ; Depression F32.9 and Insomnia G47.00 [place] [id number] [place] [address] 53520- 5496 Jan, Exertional dyspnea R06.09 ; Heart palpitations R00.2 ; Hyperlipidemia, unspecified hyperlipidemia type E78.5 ; Hypothyroidism, unspecified type E03.9 and Hypokalemia E87.6 [place] [id number] [place] [address] 17602- 0893 Dec, PTSD (post-traumatic stress disorder) F43.10 ; Depression F32.9 ; Insomnia G47.00 and Bipolar disorder with psychotic features F31.9 [place] [id number] [place] [address] 65735- 0270 Dec, Increased intracranial pressure G93.2 [place] [id number] [place] [address] 50349- 4545 Dec, [place] [id number] [place] [address] 18972- 5268 Dec, Shortness of breath R06.02 [place] [id number] [place] [address] 71012- 7143 05 Jan, 2016 Visual disturbance H53.9 and Headache, unspecified headache type R51 [place] [id number] [place] [address] 58635- 9176 Dec, Insomnia G47.00 [place] [address] 46803- 5191 Dec, Murmur R01.1 [place] [address] 28535- 2907 Dec, Murmur R01.1 ; Tunnel vision, unspecified laterality H53.489 ; Orthostatic hypertension I10 ; Shortness of breath R06.02 and Tachycardia R00.0 [place] [id number] [place] [address] 99132- 4695 Dec, [place] [id number] [place] [address] 10395- 1437 Dec, Hypothyroid E03.9 and Bipolar 1 disorder F31.9 [place] [address] 50481- 7318 Dec, Bipolar 1 disorder F31.9 [place] [id number] [place] [address] 11573- 4503 Dec, [place] [id number] [place] [address] 87931- 1072 October, Acquired hypothyroidism E03.9 ; Depression F32.9 and Insomnia G47.00 [place] [id number] [place] [address] 26975- 9793 October, [place] [id number] [place] [address] 21305- 3649 October, Bipolar 1 disorder F31.9 ; PTSD (post-traumatic stress disorder) F43.10 and Social phobia F40.10 [place] [id number] [place] [address] 80661- 2058 Oct, Bipolar 1 disorder F31.[address] [facility] [id number] [place] [address] 41841- 4987 Oct, [facility] [id number] [place] [address] 56658- 9771 Oct, [facility] [address] 55195- 9438 Aug, Hypothyroid E03.9 [place] [id number] [place] [address] 65569- 7278 Aug, Encounter for therapeutic drug level monitoring Z51.81 and Other fdc (current) drug therapy Z79.899 [place] [id number] [place] [address] 79359- 1646 Aug, Encounter for therapeutic drug level monitoring Z51.81 [place] [id number] [place] [address] 20309- 1100 Aug, Acquired hypothyroidism E03.9 ; Leg pain M79.606 and Bipolar 1 disorder F31.9 [place] [id number] [place] [address] 09356- 9799 Aug, [place] [id number] [place] [address] 58291- 1037 Aug, [place] [id number] [place] [address] 22745- 2814 Jul, Thyroid disorder E07.9 [facility] [id number] [place] [address] 51542- 6221 Jul, Rash R21 ; Abnormal LFTs R94.5 ; Acquired hypothyroidism E03.9 ; Sleep apnea in adult G47.33 [address].0 [facility] [id number] [place] [address] 35484- 4024 Jun, [place] [id number] [place] [address] [id number]- 3542 Jun, [facility] [id number] [place] [address] [id number]- 7377 Jun, Bipolar II disorder F31.81 and Social phobia, generalized F40.11 [facility] [id number] [place] [address] 59762- 1011 Mar, Bipolar II disorder 296.89 and Social phobia 300.23 [facility] [id number] [place] [address] [id number]- 4716 Dec, [facility] [address] [address]- [address]161 Dec, [facility] [id number] [place] [address] [id number]- 5245 Dec, Bipolar II disorder in partial or unspecified remission 296.89 and Social phobia, generalized 300.23 [facility] [id number] [place] [address] 66146- 0171 30 Oct, 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 [facility] [id number] [place] [address] 17603- 8650 14 Oct, 2014 [facility] [id number] [place] [address] 56132- 4390 Oct, [facility] [id number] [place] [address] 02763- 9244 Aug, [facility] [id number] [place] [address] 55365- 3126 Aug, [facility] [id number] [place] [address] [id number]- 6214 Aug, [facility] [id number] [place] [address] [id number]- 8102 Aug, [facility] [id number] [place] [address] [id number]- 7654 Aug, [facility] [address] [id number] [place] [address]- 0964 Aug, [facility] [place] [facility] [address] [id number] [id number] [address] Aug, [facility] [place] [facility] [address] [id number] [place] [address]- 2877 Aug, [facility] [place] [facility] [address] [id number] [place] [address]- 8582 Jul, [facility] [place] [facility] [address] [id number] [place] [address]- 4397 Jul, [facility] [place] [facility] [address] [id number] [place] [address]- 3192 Jul, [facility] [place] [facility] [address] [id number] [place] [address]- 5578 Jul, [facility] [place] [facility] [address] [id number] [place] [address]- 0249 Jul, [facility] [place] [facility] [address] [id number] [place] [address]- 1800 Jul, [facility] [place] [facility] [address] [id number] [place] [address] Jun, [facility] [place] [facility] [address] [id number] [place] [address] Jun, [facility] [place] [facility] [address] [id number] [place] [address] Jun, [facility] [place] [facility] [address] [id number] [place] [address] 2467 Jun, [facility] [place] [facility] [address] [id number] [place] [address] 3560 Jun, [facility] [place] [facility] [address] [id number] [place] [address] 4225 Jun, [facility] [place] [facility] [address] [id number] [address] Jun, [facility] [place] [facility] [address] [id number] [place] [address] 7[address] Jun, [facility] [place] [facility] [address] [id number] [place] [address] Jun, [facility] [place] [facility] [address] [id number] [place] [address]- 4571 Jun, [facility] [place] [facility] [address] [id number] [place] [address]- 6824 Jun, [facility] [place] [facility] [address] [id number] [place] [address]- 484[address] Jun, [facility] [place] [facility] [address] [id number] [place] [address]- 8095 Jun, [facility] [place] [facility] [address] [id number] [place] [address]- 5233 Jun, [facility] [place] [facility] [address] [id number] [place] [address]- 5564 Jun, [facility] [place] [facility] [address] [id number] [place] [address]- 1022 Jun, [facility] [place] [facility] [address] [id number] [place] [address]- 3467 May, [facility] [place] [facility] [address] [id number] [place] [address] 8[address] May, [facility] [place] [facility] [address] [id number] [place] [address]- 4071 May, [facility] [place] [facility] [address] [id number] [place] [address]- 0329 May, [facility] [place] [facility] [address] [id number] [place] [address]- 7618 May, [facility] [place] [facility] [address] [id number] [place] [address]- 6081 May, [facility] [place] [facility] [address] [id number] [place] [address]- 7617 Apr, [facility] [place] [facility] [address] [id number] [place] [address]- 9184 Apr, [facility] [place] [facility] [address] [id number] [place] [address]- 5442 Apr, [facility] [place] [facility] [address] [id number] [place] [address]- 8635 Apr, [facility] [place] [facility] [address] [id number] [place] [address]- 8172 Apr, [facility] [place] [facility] [address] [id number] [place] [address]- 4987 Apr, [facility] [place] [facility] [address] [id number] [place] [address]- 6537 Mar, [facility] [place] [facility] [address] [id number] [place] [address]- 2808 Mar, [facility] [place] [facility] [address] [id number] [place] [address]- 6036 Mar, [facility] [place] [facility] [address] [id number] [place] [address]- 3543 Mar, [facility] [place] [facility] [address] [id number] [place] [address] 1974 Jan, [facility] [place] [facility] [address] [id number] [place] [address]- 2402 Jan, [facility] [place] [facility] [address] [id number] [place] [address] 1861 Jan, [facility] [place] [facility] [address] [id number] [place] [address] 1852 Jan, [facility] [place] [facility] [address] [id number] [place] [address]- 9701 Jan, [facility] [place] [facility] [address] [id number] [place] [address]- 6328 Jan, [facility] [place] [facility] [address] [id number] [place] [address]- 0871 Dec, [facility] [place] [facility] [address] [id number] [place] [address]- 9873 Dec, [facility] [place] [facility] [address] [id number] [place] [address]- 3431 Dec, [facility] [place] [facility] [address] [id number] [place] [address]- 6173 Dec, [facility] [place] [facility] [address] [id number] [place] [address]- 1624 Dec, [facility] [place] [facility] [address] [id number] [place] [address]- 0744 Dec, [facility] [place] [facility] [address] [id number] [place] [address]- 7129 October, [facility] [place] [facility] [address] [id number] [place] [address]- 5099 October, [facility] [place] [facility] [address] [id number] [place] [address]- 9322 October, [facility] [place] [facility] [address] [id number] [place] [address]- 8965 October, [facility] [place] [facility] [address] [id number] [place] [address]- 5635 October, [facility] [place] [facility] [address] [id number] [place] [address]- 4219 October, [facility] [place] [facility] [address] [id number] [place] [address]- 2443 October, [facility] [place] [facility] [address] [id number] [place] [address] October, [facility] [place] [facility] [address] [id number] [place] [address]- 3210 Oct, [facility] [place] [facility] [address] [id number] [place] [address]- 2387 Oct, [facility] [place] [facility] [address] [id number] [place] [address]- 8145 Oct, [facility] [place] [facility] [address] [id number] [place] [address]- 7823 Oct, [facility] [place] [facility] [address] [id number] [place] [address]- 0254 Oct, [facility] [place] [facility] [address] [id number] [place] [address]- 4112 Aug, [facility] [place] [facility] [address] [id number] [place] [address]- 1511 Aug, [facility] [place] [facility] [address] [id number] [place] [address]- 0512 Aug, [facility] [place] [facility] [address] [id number] [place] [address]- 5133 Aug, [facility] [place] [facility] [address] [id number] [place] [address]- 7918 Aug, [facility] [place] [facility] [address] [id number] [place] [address]- 9993 Aug, [facility] [place] [facility] [address] [facility] [id number] [place] [address]- 4084 Jul, [facility] [place] [facility] [address] [id number] [place] [address]- 8956 Jul, [facility] [place] [facility] [address] [id number] [place] [address]- 8559 Jul, [facility] [place] [facility] [address] [id number] [place] [address]- 1144 Jul, [facility] [place] [facility] [address] [id number] [place] [address]- 0675 Jul, [facility] [place] [facility] [address] [id number] [place] [address]- 5775 Jul, [facility] [place] [facility] [address] [id number] [place] [address]- 9521 Jun, [facility] [place] [facility] [address] [id number] [place] [address] Jun, [facility] [place] [facility] [address] [id number] [place] [address] Jun, [facility] [place] [facility] [address] [id number] [place] [address]- 1127 Jun, [facility] [place] [facility] [address] [id number] [place] [address]- 0654 Jun, [facility] [place] [facility] [address] [id number] [place] [address]- 6386 Jun, [facility] [place] [facility] [address] [id number] [place] [address] May, [facility] [place] [facility] [address] [id number] [place] [address]- 5266 May, [facility] [place] [facility] [address] [id number] [place] [address]- 3727 Apr, [facility] [place] [facility] [address] [id number] [place] [address]- 0269 Apr, [facility] [place] [facility] [address] [id number] [place] [address]- 9179 Apr, [facility] [place] [facility] [address] [id number] [place] [address]- 9242 Apr, [facility] [place] [facility] [address] [id number] [place] [address]- 2303 Apr, [facility] [place] [facility] [address] [id number] [address] Apr, [facility] [place] [facility] [address] [id number] Apr, [facility] [place] [facility] [address] [id number] [place] [address]- 8304 Apr, [facility] [place] [facility] [address] [id number] [place] [address]- 5180 18 Apr, 2013 [facility] [place] [facility] [address] [id number] [place] [address]- 5303 04 Apr, 2013 [facility] [place] [facility] [address] [id number] [place] [address]- 8412 Apr, [facility] [place] [facility] [address] [id number] [place] [address]- 7862 23 Mar, 2013 [facility] [place] [facility] [address] [id number] [place] [address]- 8365 20 Mar, 2013 [facility] [place] [facility] [address] [id number] [place] [address]- 4813 20 Mar, 2013 [facility] [place] [facility] [address] [id number] [place] [address]- 0820 14 Mar, 2013 [facility] [place] [facility] [address] [id number] [place] [address]- 1991 12 Mar, 2013 [facility] [place] [facility] [address] [id number] [place] [address]- 0162 06 Mar, 2013 [facility] [place] [facility] [address] [id number] [place] [address]- 3852 06 Mar, 2013 [facility] [place] [facility] [address] [id number] [place] [address]- 4251 Jan, [facility] [place] [facility] [address] [id number] [place] [address]- 3020 Jan, [facility] [place] [facility] [address] [id number] [place] [address]- 0306 Jan, [facility] [place] [facility] [address] [id number] [place] [address]- 2483 Jan, [facility] [place] [facility] [address] [id number] [place] [address]- 7995 08 Jan, 2013 [facility] [place] [facility] [address] [id number] [place] [address]- 2546 Jan, [facility] [address] [id number] [place] [address]- 8508 Jan, [facility] [address] [id number] [place] [address]- 2546 Dec, [facility] [address] [id number] [place] [address]- 5322 Dec, [facility] [address] [id number] [place] [address]- 2542 Dec, [facility] [address] [id number] [place] [address]- 0663 Dec, [facility] [address] [id number] [place] [address]- 3767 Dec, [facility] [address] [id number] [place] [address]- 1671 Dec, [facility] [address] [id number] [place] [address]- 2774 October, [facility] [address] [id number] [place] [address]- 8546 October, [facility] [address] [id number] [place] [address]- 6938 October, [facility] [address] [id number] [place] [address]- 2546 October, [facility] [address] [id number] [place] [address]- 2543 Oct, [facility] [address] [id number] [place] [address]- 2546 Oct, [facility] [address] [id number] [place] [address]- 2546 Aug, [facility] [address] [id number] [place] [address]- 3180 Aug, [facility] [address] [id number] [place] [address]- 9162 Aug, [facility] [place] [facility] [address] [id number] [place] [address]- 7336 Aug, [facility] [place] [facility] [address] [id number] [place] [address]- 3401 18 Aug, 2012 [facility] [place] [facility] [address] [id number] [place] [address]- 8525 Aug, [facility] [place] [facility] [address] [id number] [place] [address]- 3667 Aug, [facility] [place] [facility] [address] [id number] [place] [address]- 3754 Aug, [facility] [place] [facility] [address] [id number] [place] [address]- 4994 Aug, [facility] [place] [facility] [address] [id number] [place] [address]- 4113 Aug, [facility] [place] [facility] [address] [id number] [place] [address]- 9894 Aug, [facility] [place] [facility] [address] [id number] [place] [address]- 8109 Aug, [facility] [place] [facility] [address] [id number] [place] [address]- 9562 Aug, [facility] [place] [facility] [address] [id number] [place] [address]- 3625 Aug, [facility] [place] [facility] [address] [id number] [place] [address]- 8458 Jul, [facility] [place] [facility] [address] [id number] [place] [address]- 0099 Jul, [facility] [place] [facility] [address] [id number] [place] [address]- 3087 Jul, [facility] [place] [facility] [address] [facility] [id number] [place] [address] Jul, [facility] [address] [id number] [address] 99[address] Jun, [facility] [address] [id number] [address]20 Jun, [facility] [address] [id number] [address] 0097 Jun, [facility] [address] [id number] [address]- 6765 Jun, [facility] [address] [id number] [address] May, [facility] [address] [id number] [address]- 8631 May, IMMUNIZATIONS No Known Immunizations SOCIAL HISTORY Never Assessed REASON FOR VISIT Requests return call PLAN OF CARE VITAL SIGNS MEDICATIONS Medication [...]
--- OUTSIDE RECORDS SUMMARY | 2018-09-02 18:13 | XMS REPORT ---
Author Author AMARI HOWARD [facility] Address [address] [place] [address] Care Team Providers Care Rehab Rn Name Role Phone AMARI HOWARD Unavailable PROBLEMS Type Condition ICD9-CM Code HRO09-JR Code Onset Dates Condition Status SNOMED Code Problem Panic disorder with agoraphobia F40.01 Active 38480513 Problem Depressive disorder, not elsewhere classified F32.9 Active 17662391 Problem Chronic posttraumatic stress disorder F43.12 Active 784303514 Problem Insomnia G47.00 Active 485737882 Problem Obesity E66.9 Active 017589764 Problem Other chronic pain G89.29 Active 34493633 Problem Fatty liver K76.0 Active 615361833 Problem Abuse, drug or alcohol F19.10 Active 18704591 Problem Panic disorder without agoraphobia F41.0 Active 77808811 Problem Panic disorder F41.0 Active 135464833 Problem Hypothyroid E03.9 Active 70365926 Problem BMI 50.0-59.9, adult Z68.43 Active 597314889 Problem Restless legs syndrome G25.81 Active 337627781 Problem Encounter for therapeutic drug level monitoring Z51.81 Active 135079118 Problem Neuropathy G62.9 Active 047031344 Problem Social phobia F40.10 Active 06564417 Problem Tachycardia R00.0 Active 3184820 Problem Murmur R01.1 Active 698491670 Problem Orthostatic hypertension I10 Active 68709916 Problem Shortness of breath R06.02 Active 105963114 Problem Sleep apnea in adult G47.33 Active 01297684 Problem Tunnel vision, unspecified laterality H53.489 Active 722353183 Problem Undifferentiated schizophrenia F20.3 Active 981293124 ALLERGIES No Information ENCOUNTERS Encounter Location Date Diagnosis [facility] [id number] [address] 18 Apr, 2018 [facility] [address] [address] Dec, [facility] [address], [place] [address] Dec, [facility] [address], [place] [address] 9[address] Dec, Undifferentiated schizophrenia F20.3 ; Panic disorder with agoraphobia F40.01 ; Chronic posttraumatic stress disorder F43.12 and BMI 50.0- 59.9, adult Z68.43 [facility] [id number] [address] Dec, [facility] [id number] [place] [address] 19077- 8186 Dec, Undifferentiated schizophrenia F20.3 ; Insomnia G47.00 and Thyroid disorder E07.9 [facility] [id number] [place] [address] 92892- 6891 Dec, Undifferentiated schizophrenia F20.3 [facility] [address] [address] 6924 Dec, [facility] [id number] [address] 9[address] Dec, [facility] [address] [address] 0057 Dec, BMI 50.0-59.9, adult Z68.43 ; Undifferentiated schizophrenia F20.3 ; Panic disorder without agoraphobia F41.0 and Chronic posttraumatic stress disorder F43.12 [facility] [address], [place] [address] 04 Dec, 2017 [facility] [address] [address] 3[address] October, [facility] [address], [place] [address] 0565 October, Pain in right shoulder M25.511 and Other chronic pain G89.29 [facility] [id number] [place] [address] 28012- 8903 October, Hypothyroid E03.9 [facility] [id number] [place] [address] 55308- 4078 Oct, Undifferentiated schizophrenia F20.3 [facility] [id number] [place] [address] 04367- 8881 Oct, [facility] [id number] [place] [address] 54448- 0849 Oct, [facility] [id number] [place] [address] 90613- 9475 Aug, Undifferentiated schizophrenia F20.3 [facility] [id number] [place] [address] 37969- 0477 Aug, [facility] [id number] [place] [address] 21705- 4757 Aug, Undifferentiated schizophrenia F20.3 ; Panic disorder with agoraphobia F40.01 ; Chronic posttraumatic stress disorder F43.12 and BMI 50.0- 59.9, adult Z68.43 [facility] [id number] [place] [address] 53963- 6769 Aug, [facility] [id number] [place] [address] 75117- 2607 Aug, [facility] [id number] [place] [address] 71651- 2975 Aug, Undifferentiated schizophrenia F20.3 [facility] [id number] [place] [address] 80665- 9145 Aug, Hypothyroid E03.9 [facility] [id number] [place] [address] 59653- 5811 Jul, Undifferentiated schizophrenia F20.3 [facility] [id number] [place] [address] 59768- 7597 Jul, [facility] [id number] [place] [address] 05369- 2994 Jul, Undifferentiated schizophrenia F20.3 ; Chronic posttraumatic stress disorder F43.12 ; Panic disorder with agoraphobia F40.01 and BMI 50.0-59.9, adult Z68.43 [facility] [id number] [place] [address] 22943- 9723 15 Jul, 2017 [facility] [address] 91782- 5841 08 Jul, 2017 Acute pain of right shoulder M25.511 ; High risk medication use Z79.899 ; Needle stick injury W27.3XXA ; Hypothyroid E03.9 and BMI 50.0-59.9 , adult Z68.43 [facility] [id number] [place] [address] 71490- 2646 Jun, Undifferentiated schizophrenia F20.3 [address] 77554- 5803 Jun, Undifferentiated schizophrenia F20.3 ; Panic disorder without agoraphobia F41.0 ; Chronic posttraumatic stress disorder F43.12 and BMI 50.0-59.9, adult Z68.43 [facility] [id number] [place] [address] 75554- 3903 May, [facility] [id number] [place] [address] 55712- 2444 May, [facility] [id number] [place] [address] 23927- 8209 May, Undifferentiated schizophrenia F20.3 [facility] [address] 25697- 2594 May, [facility] [address] 44649- 5644 May, [facility] [id number] [place] [address] 90077- 7419 May, Hypothyroid E03.9 [facility] [id number], [place] [address] 3473 13 May, 2017 [facility] [id number] [place] [address] 02110- 8350 10 May, 2017 [facility] [id number] [place] [address] 68820- 8236 May, Chronic posttraumatic stress disorder F43.12 ; Panic disorder with agoraphobia F40.01 ; Undifferentiated schizophrenia F20.3 ; BMI 40.0-44.9, adult Z68.41 and Obesity E66.9 [facility] [id number] [place] [address] 95088- 2931 07 May, 2017 Shortness of breath R06.02 [facility] [id number] [place] [address] 08936- 7580 May, [facility] [id number] [place] [address] 78830- 7009 Apr, Undifferentiated schizophrenia F20.3 [facility] [id number] [place] [address] 17722- 2872 Apr, [facility] [id number] [place] [address] 72880- 5249 Apr, [facility] [id number] [place] [address] 59189- 6145 Mar, Undifferentiated schizophrenia F20.3 ; Panic disorder without agoraphobia F41.0 and Chronic posttraumatic stress disorder F43.12 [facility] [address] [place] [address] 62254- 4997 Mar, Undifferentiated schizophrenia F20.3 [facility] [id number] [place] [address] 45418- 8228 18 Mar, 2017 [facility] [id number] [place] [address] 26550- 4938 08 Mar, 2017 [facility] [id number] [place] [address] 59301- 4072 Mar, [facility] [address] [facility] [id number] [address] 0150 Jan, Undifferentiated schizophrenia F20.3 [facility] [id number] [place] [address] 36931- 2237 Jan, [facility] [id number] [place] [address] 19864- 9043 Jan, [facility] [address] [place] [address] 76342- 9389 Jan, [facility] [address] [id number] [id number] Dec, Needle stick injury W27.3XXA [facility] [id number] [place] [address] 43770- 5385 Dec, Needle stick injury W27.3XXA [facility] [address] [place] [address] 28354- 7054 Dec, Undifferentiated schizophrenia F20.3 [facility] [address] [place] [address] 29479- 0513 Dec, [facility] [address] [place] [address] 15456- 7984 Dec, [facility] [id number] [place] [address] 61432- 8334 Dec, Undifferentiated schizophrenia F20.3 ; Panic disorder with agoraphobia F40.01 and Chronic posttraumatic stress disorder F43.12 [facility] [address] [facility] [id number] [address]- 5944 Dec, [facility] [id number] [place] [address] 28962- 0350 October, [facility] [id number], [place] [address]- 9699 October, Undifferentiated schizophrenia F20.3 [facility] [id number], [place] [address]- 8433 October, [facility] [id number] [place] [address] 26579- 4929 October, [facility] [id number] [place] [address] 16062- 4474 Oct, Undifferentiated schizophrenia F20.3 ; Panic disorder with agoraphobia F40.01 ; Chronic posttraumatic stress disorder F43.12 and Obesity E66.9 [facility] [id number] [place] [address] 44379- 0917 Oct, [facility] [id number] [place] [address] 32723- 3310 Oct, [facility] [id number] [place] [address] 09980- 7451 Aug, Undifferentiated schizophrenia F20.3 [facility] [id number] [place] [address] 14782- 1685 Aug, [facility] [id number] [place] [address] 40738- 2840 Aug, Muscle spasm M62.838 [facility] [id number] [place] [address] 50362- 3774 Aug, Undifferentiated schizophrenia F20.3 [facility] [id number] [place] [address] 47149- 8653 Aug, Undifferentiated schizophrenia F20.3 ; Panic disorder with agoraphobia F40.01 ; Chronic posttraumatic stress disorder F43.12 ; High risk medication use Z79.899 and Social phobia F40.10 [facility] [id number] [place] [address] 97738- 8233 Aug, Undifferentiated schizophrenia F20.3 [facility] [address] [place] [address] 37773- 3001 Aug, [facility] [id number] [place] [address] 00386- 0114 14 Aug, 2016 Acute non-recurrent maxillary sinusitis J01.00 [facility] [id number] [place] [address] 12993- 5704 10 Aug, 2016 [facility] [id number] [place] [address] 21687- 0171 01 Aug, 2016 [facility] [id number] [place] [address] 26205- 4603 Jul, Undifferentiated schizophrenia F20.3 [facility] [id number] [place] [address] 37899- 1166 Jul, Schizophrenia, undifferentiated F20.3 ; Social phobia F40.10 ; Post-traumatic stress disorder F43.10 ; Panic disorder F41.0 and Depressive disorder, not elsewhere classified F32.9 [facility] [id number] [place] [address] 09535- 4779 Jul, [facility] [id number] [place] [address] 86220- 8089 Jul, Schizophrenia, undifferentiated F20.3 ; Social phobia F40.10 ; Post-traumatic stress disorder F43.10 ; Panic disorder F41.0 and Depressive disorder, not elsewhere classified F32.9 [facility] [address] [place] [address] 23890- 3880 Jul, [facility] [id number] [place] [address] 32319- 9394 Jul, Undifferentiated schizophrenia F20.3 ; Panic disorder with agoraphobia F40.01 ; Social phobia F40.10 ; Obesity E66.9 and Chronic posttraumatic stress disorder F43.12 [facility] [id number] [place] [address] 77331- 2169 Jun, [facility] [id number] [place] [address] 01719- 8982 Jun, [facility] [id number] [place] [address] 93044- 6504 Jun, Dental caries K02.9 [facility] [id number] [place] [address] 68425- 1210 Jun, Undifferentiated schizophrenia F20.3 [facility] [id number] [place] [address] 54300- 4308 30 May, 2016 [facility] [id number] [place] [address] 53168- 7791 May, Undifferentiated schizophrenia F20.3 ; Panic disorder with agoraphobia F40.01 and Chronic post-traumatic stress disorder (PTSD) F43.12 [facility] [id number] [place] [address] 35160- 5947 May, [facility] [id number] [place] [address] 60834- 0518 May, Undifferentiated schizophrenia F20.3 [facility] [id number] [place] [address] 14106- 6572 May, [facility] [id number] [place] [address] 49675- 6172 07 May, 2016 Dental examination Z01.20 [facility] [id number] [place] [address] 61000- 0926 20 Apr, 2016 Undifferentiated schizophrenia F20.3 ; PTSD (post-traumatic stress disorder) F43.10 and Obesity E66.9 [facility] [id number] [place] [address] 70633- 9680 Apr, [facility] [id number] [place] [address] 99140- 7945 15 Mar, 2016 [facility] [id number] [place] [address] 10767- 9245 Mar, [facility] [address] [place] [address] 01403- 0348 Jan, Shortness of breath R06.02 and Bipolar disorder with psychotic features F31.9 [facility] [id number], [place] [address]- 8956 Jan, [facility] [id number] [place] [address] 99256- 0343 Jan, Increased intracranial pressure G93.2 ; Visual disturbance H53.9 and Bipolar II disorder F31.81 [facility] [id number] [place] [address] 80918- 0269 Jan, [facility] [id number] [place] [address] 33062- 5250 Jan, [facility] [id number] [place] [address] 04278- 6629 Jan, [facility] [id number] [place] [address] 47771- 7790 Jan, Acquired hypothyroidism E03.9 ; Depression F32.9 and Insomnia G47.00 [facility] [id number] [place] [address] 64743- 9128 Jan, Exertional dyspnea R06.09 ; Heart palpitations R00.2 ; Hyperlipidemia, unspecified hyperlipidemia type E78.5 ; Hypothyroidism, unspecified type E03.9 and Hypokalemia E87.6 [place] [address] [place] [address] 45511- 4693 Dec, PTSD (post-traumatic stress disorder) F43.10 ; Depression F32.9 ; Insomnia G47.00 and Bipolar disorder with psychotic features F31.9 [facility] [facility] [address] [place] [address] 21606- 3847 Dec, Increased intracranial pressure G93.2 [facility] [id number] [place] [address] 36473- 1539 Dec, [facility] [id number] [place] [address] 59329- 1880 Dec, Shortness of breath R06.02 [facility] [id number] [place] [address] 48949- 4378 Dec, Visual disturbance H53.9 and Headache, unspecified headache type R51 [place] [address] 17690- 4623 Dec, Insomnia G47.00 [facility] [id number] [place] [address] 64313- 1233 Dec, Murmur R01.1 [place] [address] 33189- 6914 Dec, Murmur R01.1 ; Tunnel vision, unspecified laterality H53.489 ; Orthostatic hypertension I10 ; Shortness of breath R06.02 and Tachycardia R00.0 [place] [address] 05441- 4946 Dec, [place] [address] 50667- 7249 Dec, Hypothyroid E03.9 and Bipolar 1 disorder F31.9 [facility] [id number] [place] [address] 26686- 8115 Dec, Bipolar 1 disorder F31.9 [place] [facility] [address] 58762- 3964 Dec, [facility] [id number] [place] [address] 47595- 2262 October, Acquired hypothyroidism E03.9 ; Depression F32.9 and Insomnia G47.00 [facility] [id number] [place] [address] 02128- 2624 October, [facility] [facility] [address] 83975- 4740 October, Bipolar 1 disorder F31.9 ; PTSD (post-traumatic stress disorder) F43.10 and Social phobia F40.10 [facility] [id number] [place] [address] 04644- 3883 Oct, Bipolar 1 disorder F31.9 and Insomnia G47.00 [facility] [address], [place] [address]- 7967 Oct, [facility] [id number] [place] [address] 59759- 0026 Oct, [facility] [id number] [place] [address] 28477- 2543 Aug, Hypothyroid E03.9 [facility] [id number] [place] [address] 03063- 4684 Aug, Encounter for therapeutic drug level monitoring Z51.81 and 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 [facility] [id number] [place] [address] 68758- 4960 Aug, Encounter for therapeutic drug level monitoring Z51.81 [facility] [id number] [place] [address] 55329- 3080 Aug, Acquired hypothyroidism E03.9 ; Leg pain M79.606 and Bipolar 1 disorder F31.9 [facility] [id number] [place] [address] 45825- 1972 Aug, [facility] [id number] [place] [address] 99992- 9139 Aug, [facility] [id number] [place] [address] 13044- 6512 Jul, Thyroid disorder E07.9 [facility] [id number] [place] [address] 04163- 7250 Jul, Rash R21 ; Abnormal LFTs R94.5 ; Acquired hypothyroidism E03.9 ; Sleep apnea in adult G47.33 and Fatty liver K76.0 [facility] [address] [place] [address] 93364- 2351 Jun, [facility] [id number] [place] [address] 16654- 9388 Jun, [facility] [id number] [place] [address] 877192- 0244 Jun, Bipolar II disorder F31.81 and Social phobia, generalized F40.11 [facility] [id number] [place] [address] 98378- 7676 Mar, Bipolar II disorder 296.89 and Social phobia 300.23 [facility] [id number] [place] [address] 21359- 6244 Dec, [facility] [id number] [place] [address] 69016- 2314 Dec, [facility] [id number] [place] [address] 79593- 1001 Dec, Bipolar II disorder in partial or unspecified remission 296.89 and Social phobia, generalized 300.23 [facility] [id number] [place] [address] 77778- 4739 Oct, 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 [facility] [id number] [place] [address] 99894- 1110 Oct, [facility] [id number] [place] [address] 35046- 0564 Oct, [facility] [id number] [place] [address] 34703- 2962 Aug, [facility] [id number] [place] [address] 37986- 3849 Aug, [facility] [id number] [place] [address] 11934502- 9247 Aug, [facility] [id number] [place] [address] 512115- 8080 Aug, [facility] [id number] [place] [address] 36460- 3744 Aug, [facility] [address] [place] [address] 151386- 4472 Aug, [facility] [address] [id number] [place] [address]- 4279 Aug, [facility] [place] [facility] [address] [id number] [place] 6076 Aug, [facility] [place] [facility] [address] [id number] [place] [address]- 0572 Jul, [facility] [place] [facility] [address] [id number] [place] [address]- 4390 Jul, [facility] [place] [facility] [address] [id number] [place] [address] Jul, [facility] [place] [facility] [address] [id number] [place] [address] Jul, [facility] [place] [facility] [address] [id number] [place] [address] Jul, [facility] [place] [facility] [address] [id number] [place] [address] Jul, [facility] [place] [facility] [address] [id number] [place] [address] Jun, [facility] [place] [facility] [address] [id number] [place] [address] Jun, [facility] [place] [facility] [address] [id number] [place] [address] Jun, [facility] [place] [facility] [address] [id number] [place] [address] Jun, [facility] [place] [facility] [address] [id number] [place] [address] Jun, [facility] [place] [facility] [address] [id number] [place] [address] [address] Jun, [facility] [place] [facility] [address] [id number] [place] [address] Jun, [facility] [place] [facility] [address] [id number] [address] Jun, [facility] [place] [facility] [address] [id number] [place] [address] Jun, [facility] [place] [facility] [address] [id number] [place] [address] [address] Jun, [facility] [place] [facility] [address] [id number] [place] [address] Jun, [facility] [place] [facility] [address] [id number] [place] [address] Jun, [facility] [place] [facility] [address] [id number] [place] [address] 15[address] Jun, [facility] [place] [facility] [address] [id number] [place] [address] Jun, [facility] [place] [facility] [address] [facility] [id number] [place] [address]- 7[address] Jun, [facility] [place] [facility] [address] [id number] [place] [address] Jun, [facility] [place] [facility] [address] [id number], [place] [address] May, [facility] [place] [facility] [address] [id number], [place] [address] May, [facility] [place] [facility] [address] [id number], [place] [address] May, [facility] [place] [facility] [address] [id number], [place] [address] May, [facility] [place] [facility] [address] [id number], [place] [address] 1790 May, [facility] [place] [facility] [address] [id number], [place] [address] 70[address] May, [facility] [place] [facility] [address] [id number], [place] [address] Apr, [facility] [place] [facility] [address] [id number] [place] [address]- 6163 Apr, [facility] [place] [facility] [address] [id number] [place] [address]- 1162 Apr, [facility] [place] [facility] [address] [id number] [place] [address]- 7456 Apr, [facility] [place] [facility] [address] [id number] [place] [address] 4974 Apr, [facility] [place] [facility] [address] [id number] [place] [address] 8221 Apr, [facility] [place] [facility] [address] [id number] [place] [address] 225[address] Mar, [facility] [place] [facility] [address] [id number] [place] [address] 7833 Mar, [facility] [place] [facility] [address] [id number] [place] [address] 2002 Mar, [facility] [place] [facility] [address] [id number] [place] [address]- 8586 Mar, [facility] [place] [facility] [address] [id number] [place] [address]- 6671 Jan, [facility] [place] [facility] [address] [id number] [place] [address]- 9936 Jan, [facility] [place] [facility] [address] [id number] [place] [address]- 0641 Jan, [facility] [place] [facility] [address] [id number] [place] [address]- 7820 Jan, [facility] [place] [facility] [address] [id number] [place] [address]- [address] Jan, [facility] [place] [facility] [address] [id number] [place] [address] 1993 Jan, [facility] [place] [facility] [address] [id number] [place] [address]- 9813 Dec, [facility] [place] [facility] [address] [id number] [place] [address]- 3847 Dec, [facility] [place] [facility] [address] [id number] [place] [address]- 0431 Dec, [facility] [place] [facility] [address] [id number] [place] [address]- 4709 Dec, [facility] [place] [facility] [address] [id number] [place] [address]- 8605 Dec, [facility] [place] [facility] [address] [id number] [place] [address]- 5207 Dec, [facility] [place] [facility] [address] [id number] [place] [address] 7587 October, [facility] [place] [facility] [address] [id number] [place] [address] 8149 October, [facility] [place] [facility] [address] [id number] [place] [address]- 6703 October, [facility] [place] [facility] [address] [id number] [place] [address] 7019 October, [facility] [place] [facility] [address] [id number] [place] [address] 2108 October, [facility] [place] [facility] [address] [id number] [place] [address] 8489 October, [facility] [place] [facility] [address] [id number] [place] [address]- 2457 October, [facility] [place] [facility] [address] [id number] [place] [address]- 7862 October, [facility] [place] [facility] [address] [id number] [place] [address]- 1648 Oct, [facility] [place] [facility] [address] [id number] [place] [address]- 4837 Oct, [facility] [place] [facility] [address] [id number] [place] [address] 1807 Oct, [facility] [place] [facility] [address] [id number] [place] [address]- 1627 Oct, [facility] [place] [facility] [address] [id number] [place] [address] 3004 Oct, [facility] [place] [facility] [address] [facility] [id number] [place] [address]- 2095 Aug, [facility] [place] [facility] [address] [id number] [place] [address]- 1026 Aug, [facility] [place] [facility] [address] [id number] [place] [address]- 6353 Aug, [facility] [place] [facility] [address] [id number] [place] [address]- 0812 Aug, [facility] [place] [facility] [address] [id number] [place] [address]- 6603 Aug, [facility] [place] [facility] [address] [id number] [place] [address]- 8808 Aug, [facility] [place] [facility] [address] [id number] [place] [address]- 2123 Jul, [facility] [place] [facility] [address] [facility] [id number] [place] [address]- 0983 Jul, [facility] [place] [facility] [address] [id number] [place] [address]- 4961 Jul, [facility] [place] [facility] [address] [id number] [place] [address]- 8467 Jul, [facility] [place] [facility] [address] [id number] [place] [address]- 9167 Jul, [facility] [place] [facility] [address] [facility] [id number] [place] [address]- 5198 Jul, [facility] [place] [facility] [address] [id number] [place] [address]- 9361 Jun, [facility] [place] [facility] [address] [id number] [place] [address]- 8353 Jun, [facility] [place] [facility] [address] [id number] [place] [address]- 7812 Jun, [facility] [place] [facility] [address] [id number] [place] [address]- 6101 Jun, [facility] [place] [facility] [address] [id number] [place] [address]- 3968 Jun, [facility] [place] [facility] [address] [id number] [place] [address]- 6968 Jun, [facility] [place] [facility] [address] [id number] [place] [address]- 6366 May, [facility] [place] [facility] [address] [id number] [place] [address]- 4732 May, [facility] [place] [facility] [address] [id number], [place] [address]- 4235 Apr, [facility] [place] [facility] [address] [id number] [place] [address]- 0477 Apr, [facility] [place] [facility] [address] [id number], [place] [address]- 6999 Apr, [facility] [place] [facility] [address] [id number], [place] [address]- 9283 Apr, [facility] [place] [facility] [address] [id number], [place] [address]- 3811 Apr, [facility] [place] [facility] [address] [id number], [place] [address]- 2866 Apr, [facility] [place] [facility] [address] [id number], [place] [address]- 3431 Apr, [facility] [place] [facility] [address] [id number][place] 1301 Apr, [facility] [place] [facility] [address] [id number], [place] [address]- 4630 Apr, [facility] [place] [facility] [address] [id number] [place] [address]- 2682 Apr, [facility] [place] [facility] [address] [id number] [place] [address]- 9388 Apr, [facility] [place] [facility] [address] [id number] [place] [address]- 7574 23 Mar, 2013 [facility] [place] [facility] [address] [id number] [place] [address]- 1920 20 Mar, 2013 [facility] [place] [facility] [address] [id number] [place] [address]- 4438 Mar, [facility] [place] [facility] [address] [id number] [place] [address]- 9852 14 Mar, 2013 [facility] [place] [facility] [address] [id number] [place] [address]- 7248 Mar, [facility] [place] [facility] [address] [id number] [place] [address]- 2694 Mar, [facility] [place] [facility] [address] [id number] [place] [address]- 0656 Mar, [facility] [place] [facility] [address] [id number] [place] [address]- 6206 Jan, [facility] [place] [facility] [address] [id number] [place] [address]- 4430 Jan, [facility] [place] [facility] [address] [id number] [place] [address]- 8938 Jan, [facility] [place] [facility] [address] [id number] [place] [address]- 2346 Jan, [facility] [place] [facility] [address] [id number] [place] [address]- 6483 Jan, [facility] [place] [facility] [address] [id number] [place] [address]- 2919 Jan, [facility] [place] [facility] [address] [id number] [place] [address]- 2546 Jan, [facility] [address] [id number] [place] [address]- 8760 Dec, [facility] [address] [id number] [place] [address]- 0856 Dec, [facility] [address] [id number] [place] [address]- 2081 Dec, [facility] [address] [id number] [place] [address]- 7940 Dec, [facility] [address] [id number] [place] [address]- 7910 Dec, [facility] [address] [id number] [place] [address]- 8472 Dec, [facility] [address] [id number] [place] [address]- 7762 October, [facility] [address] [id number] [place] [address]- 6764 October, [facility] [address] [id number] [place] [address]- 7348 October, [facility] [address] [id number] [place] [address]- 3285 October, [facility] [address] [id number] [place] [address]- 1596 Oct, [facility] [address] [id number] [place] [address]- 4356 Oct, [facility] [place] [facility] [address] [id number] [place] [address]- 2546 Aug, [facility] [place] [facility] [address] [id number] [place] [address]- 2546 Aug, [facility] [address] [id number] [place] [address]- 7395 Aug, [facility] [address] [id number] [place] [address]- 6885 Aug, [facility] [place] [facility] [address] [id number] [place] [address] 2546 Aug, [facility] [place] [facility] [address] [id number] [place] [address]- 9971 Aug, [facility] [place] [facility] [address] [id number] [place] [address]- 8580 Aug, [facility] [place] [facility] [address] [id number] [place] [address]- 2866 Aug, [facility] [place] [facility] [address] [id number] [place] [address]- 9196 Aug, [facility] [place] [facility] [address] [id number] [place] [address]- 2327 Aug, [facility] [place] [facility] [address] [id number] [place] [address]- 8662 Aug, [facility] [place] [facility] [address] [id number] [place] [address]- 4820 08 Aug, 2012 [facility] [place] [facility] [address] [id number] [place] [address]- 7038 Aug, [facility] [place] [facility] [address] [id number] [place] [address]- 8870 Aug, [facility] [place] [facility] [address] [id number] [place] [address]- 9587 Jul, [facility] [place] [facility] [address] [id number] [place] [address]- 5707 Jul, [facility] [place] [facility] [address] [id number] [place] [address]- 6522 Jul, [facility] [place] [facility] [address] [id number] [place] [address]- 7769 Jul, [facility] [place] [facility] [address] [facility] [id number] [place] [address]- 1627 Jun, [facility] [address] [facility] [id number], [place] [address]- 0359 Jun, [facility] [address] [id number], [place] [address]- 8131 Jun, [facility] [address] [facility] [id number], [place] [address]- 4711 Jun, [facility] [address] [facility] [id number], [place] [address]- 9270 May, [facility] [address] [facility] [id number], [place] [address]- 9049 May, IMMUNIZATIONS No Known Immunizations SOCIAL HISTORY Never Assessed REASON FOR VISIT med refill PLAN OF CARE VITAL SIGNS MEDICATIONS Medication Instructions Dosage Frequency Start Date End Date Duration Status Seroquel 50 mg Orally at bedtime for sleep 1 tablet May, 30 days Active RESULTS No Results PROCEDURES [...]
--- OUTSIDE RECORDS SUMMARY | 2018-09-02 18:14 | XMS REPORT ---
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 Name Role Phone AMARI HOWARD Unavailable PROBLEMS Type Condition ICD9-CM Code GJM14-CA Code Onset Dates Condition Status SNOMED Code Problem Panic disorder with agoraphobia F40.01 Active 09898102 Problem Depressive disorder, not elsewhere classified F32.9 Active 72148807 Problem Chronic posttraumatic stress disorder F43.12 Active 796934497 Problem Insomnia G47.00 Active 087954428 Problem Obesity E66.9 Active 618104748 Problem Other chronic pain G89.29 Active 74559527 Problem Fatty liver K76.0 Active 077167184 Problem Abuse, drug or alcohol F19.10 Active 17202246 Problem Panic disorder without agoraphobia F41.0 Active 33612567 Problem Panic disorder F41.0 Active 954356904 Problem Hypothyroid E03.9 Active 33369411 Problem BMI 50.0-59.9, adult Z68.43 Active 845601301 Problem Restless legs syndrome G25.81 Active 693349445 Problem Encounter for therapeutic drug level monitoring Z51.81 Active 300799087 Problem Neuropathy G62.9 Active 126790146 Problem Social phobia F40.10 Active 59600441 Problem Tachycardia R00.0 Active 1581622 Problem Murmur R01.1 Active 019335040 Problem Orthostatic hypertension I10 Active 98563743 Problem Shortness of breath R06.02 Active 981289240 Problem Sleep apnea in adult G47.33 Active 10328776 Problem Tunnel vision, unspecified laterality H53.489 Active 801663776 Problem Undifferentiated schizophrenia F20.3 Active [id number] ALLERGIES No Information ENCOUNTERS Encounter Location Date Diagnosis [facility] [place] [address] [facility] [id number] [address] 18 Apr, 2018 [facility] [place] [address] [address] Dec, [facility] [place] [address] [address] Dec, [facility] [place] [id number] [address] Dec, [facility] [place] [id number] [place] [address] 98640- 4159 Dec, Undifferentiated schizophrenia F20.3 ; Panic disorder with agoraphobia F40.01 ; Chronic posttraumatic stress disorder F43.12 and BMI 50.0- 59.9, adult Z68.43 [facility] [place] [id number] [place] [address] 89965- 1359 Dec, [facility] [place] [id number] [place] [address] 63874- 0695 Dec, Undifferentiated schizophrenia F20.3 ; Insomnia G47.00 and Thyroid disorder E07.9 [facility] [place] [id number] [place] [address] 41569- 2533 Dec, Undifferentiated schizophrenia F20.3 [facility] [place] [id number] [place] [address] 00399- 4569 Dec, [facility] [place] [id number] [address] 5719 Dec, [facility] [place] [id number] [place] [address] 91023- 1218 Dec, BMI 50.0-59.9, adult Z68.43 ; Undifferentiated schizophrenia F20.3 ; Panic disorder without agoraphobia F41.0 and Chronic posttraumatic stress disorder F43.12 [facility] [place] [address] [address] 5572 Dec, [facility] [place] [address] [address] 3973 October, [facility] [place] [id number] [place] [address] 33980- 6734 October, Pain in right shoulder M25.511 and Other chronic pain G89.29 [facility] [place] [id number] [place] [address] 04050- 4947 October, Hypothyroid E03.9 [facility] [place] [id number] [place] [address] 72772- 6779 Oct, Undifferentiated schizophrenia F20.3 [facility] [place] [id number] [place] [address] 18998- 0612 Oct, [facility] [place] [id number] [place] [address] 76159- 6710 Oct, [facility] [place] [id number] [place] [address] 37829- 7583 Aug, Undifferentiated schizophrenia F20.3 [facility] [place] [id number] [place] [address] 41555- 1973 Aug, [facility] [place] [id number] [place] [address] 30332- 8247 Aug, Undifferentiated schizophrenia F20.3 ; Panic disorder with agoraphobia F40.01 ; Chronic posttraumatic stress disorder F43.12 and BMI 50.0- 59.9, adult Z68.43 [facility] [place] [address] [address] 2594 Aug, [facility] [place] [id number] [place] [address] 54162- 5978 Aug, [facility] [place] [id number] [place] [address] 10326- 3044 Aug, Undifferentiated schizophrenia F20.3 [facility] [place] [id number] [place] [address] 74996- 2849 Aug, Hypothyroid E03.9 [facility] [place] [address] [address] 8813 Jul, Undifferentiated schizophrenia F20.3 [facility] [place] [id number] [place] [address] 60459- 4015 Jul, [facility] [place] [id number] [place] [address] 23956- 1884 Jul, Undifferentiated schizophrenia F20.3 ; Chronic posttraumatic stress disorder F43.12 ; Panic disorder with agoraphobia F40.01 and BMI 50.0-59.9, adult Z68.43 [facility] [place] [id number] [place] [address] 91073- 8205 15 Jul, 2017 [facility] [place] [id number] [place] [address] 69618- 4650 Jul, Acute pain of right shoulder M25.511 ; High risk medication use Z79.899 ; Needle stick injury W27.3XXA ; Hypothyroid E03.9 and BMI 50.0-59.9 , adult Z68.43 [facility] [place] [id number] [place] [address] 70434- 0381 Jun, Undifferentiated schizophrenia F20.3 [facility] [place] [id number] [place] [address] 10256- 5591 14 Jun, 2017 Undifferentiated schizophrenia F20.3 ; Panic disorder without agoraphobia F41.0 ; Chronic posttraumatic stress disorder F43.12 and BMI 50.0-59.9, adult Z68.43 [facility] [place] [id number] [place] [address] 95952- 8174 May, [facility] [place] [id number] [place] [address] 34567- 9070 May, [facility] [place] [id number] [place] [address] 58573- 9329 May, Undifferentiated schizophrenia F20.3 [facility] [place] [id number] [place] [address] 27256- 7916 May, [facility] [place] [id number] [place] [address] 60681- 4592 May, [facility] [place] [id number] [place] [address] 96115- 4939 15 May, 2017 Hypothyroid E03.9 [facility] [place] [address] 49746- 3211 13 May, 2017 [facility] [place] [id number] [place] [address] 37913- 1175 10 May, 2017 [facility] [place] [address] 75253- 3616 07 May, 2017 Chronic posttraumatic stress disorder F43.12 ; Panic disorder with agoraphobia F40.01 ; Undifferentiated schizophrenia F20.3 ; BMI 40.0-44.9, adult Z68.41 and Obesity E66.9 [facility] [place] [id number] [place] [address] 87216- 3870 07 May, 2017 Shortness of breath R06.02 [facility] [place] [id number] [place] [address] 32511- 8697 May, [facility] [place] [id number] [place] [address] 44385- 0650 Apr, Undifferentiated schizophrenia F20.3 [facility] [place] [id number] [place] [address] 20006- 4916 Apr, [facility] [place] [id number] [place] [address] 72625- 9186 Apr, [facility] [place] [id number] [place] [address] 76190- 5502 Mar, Undifferentiated schizophrenia F20.3 ; Panic disorder without agoraphobia F41.0 and Chronic posttraumatic stress disorder F43.12 [facility] [place] [id number] [place] [address] 19044- 4661 Mar, Undifferentiated schizophrenia F20.3 [facility] [place] [id number] [place] [address] 63666- 2531 18 Mar, 2017 [facility] [place] [id number] [place] [address] 22005- 5699 08 Mar, 2017 [facility] [place] [address] [address]- 5745 Mar, [facility] [place] [id number] [place] [address] 20975- 2683 Jan, Undifferentiated schizophrenia F20.3 [facility] [place] [id number] [place] [address] 21270- 4114 Jan, [facility] [place] [id number] [place] [address] 71093- 6282 Jan, [facility] [place] [id number] [place] [address] 18626- 9773 Jan, [id number] [id number] Dec, Needle stick injury W27.3XXA [facility] [place] [id number] [place] [address] 47784- 8289 Dec, Needle stick injury W27.3XXA [facility] [place] [id number] [place] [address] 16902- 9999 Dec, Undifferentiated schizophrenia F20.3 [facility] [place] [id number] [place] [address] 74857- 6749 Dec, [facility] [place] [id number] [place] [address] 69462- 6487 Dec, [facility] [place] [id number] [place] [address] 31506- 9833 Dec, Undifferentiated schizophrenia F20.3 ; Panic disorder with agoraphobia F40.01 and Chronic posttraumatic stress disorder F43.12 [facility] [place] [id number] [place] [address] 19648- 8082 Dec, [facility] [place] [id number] [place] [address] 21008- 7740 October, [facility] [place] [id number] [place] [address] 54134- 8423 October, Undifferentiated schizophrenia F20.3 [facility] [place] [address] [address]- 8326 October, [facility] [place] [address] [address]- 8656 October, [facility] [place] [id number] [place] [address] 64469- 8561 Oct, Undifferentiated schizophrenia F20.3 ; Panic disorder with agoraphobia F40.01 ; Chronic posttraumatic stress disorder F43.12 and Obesity E66.9 [facility] [place] [id number] [place] [address] 77341- 3432 Oct, [facility] [place] [id number] [place] [address] 45885- 1721 Oct, [facility] [place] [id number] [place] [address] 75361- 0097 Aug, Undifferentiated schizophrenia F20.3 [facility] [place] [address] [address]- 1614 Aug, [facility] [place] [id number] [place] [address] 83573- 6545 Aug, Muscle spasm M62.838 [facility] [place] [address] [address]- 1536 Aug, Undifferentiated schizophrenia F20.3 [facility] [place] [address] [address]- 0461 Aug, Undifferentiated schizophrenia F20.3 ; Panic disorder with agoraphobia F40.01 ; Chronic posttraumatic stress disorder F43.12 ; High risk medication use Z79.899 and Social phobia F40.10 [facility] [place] [address] [address]- 5150 Aug, Undifferentiated schizophrenia F20.3 [facility] [place] [address] [address]- 8430 20 Aug, 2016 [facility] [place] [address] [address]- 4012 14 Aug, 2016 Acute non-recurrent maxillary sinusitis J01.00 [facility] [place] [address] [address]- 8683 10 Aug, 2016 [facility] [place] [id number] [place] [address] 37784- 7653 Aug, [facility] [place] [id number] [place] [address] 16641- 5477 Jul, Undifferentiated schizophrenia F20.3 [facility] [place] [id number] [place] [address] 68583- 7661 Jul, Schizophrenia, undifferentiated F20.3 ; Social phobia F40.10 ; Post-traumatic stress disorder F43.10 ; Panic disorder F41.0 and Depressive disorder, not elsewhere classified F32.9 [facility] [place] [id number] [place] [address] 97753- 9170 Jul, [facility] [place] [id number] [place] [address] 90580- 4616 Jul, Schizophrenia, undifferentiated F20.3 ; Social phobia F40.10 ; Post-traumatic stress disorder F43.10 ; Panic disorder F41.0 and Depressive disorder, not elsewhere classified F32.9 [facility] [place] [address] [address]- 3116 Jul, [facility] [place] [id number] [place] [address] 00117- 4988 Jul, Undifferentiated schizophrenia F20.3 ; Panic disorder with agoraphobia F40.01 ; Social phobia F40.10 ; Obesity E66.9 and Chronic posttraumatic stress disorder F43.12 [facility] [place] [address] [address]- 1335 Jun, [facility] [place] [id number] [place] [address] 71860- 7196 Jun, [facility] [place] [id number] [place] [address] 31527- 9806 Jun, Dental caries K02.9 [facility] [place] [id number] [place] [address] 94777- 2849 Jun, Undifferentiated schizophrenia F20.3 [facility] [place] [id number] [place] [address] 33343- 7803 30 May, 2016 [facility] [place] [id number] [place] [address] 53558- 1280 May, Undifferentiated schizophrenia F20.3 ; Panic disorder with agoraphobia F40.01 and Chronic post-traumatic stress disorder (PTSD) F43.12 [facility] [place] [id number] [place] [address] 59830- 3054 May, [facility] [place] [id number] [place] [address] 06496- 0997 May, Undifferentiated schizophrenia F20.3 [facility] [place] [id number] [place] [address] 30427- 9292 May, [facility] [place] [id number] [place] [address] 13731- 5265 07 May, 2016 Dental examination Z01.20 [facility] [place] [id number] [place] [address] 22568- 0762 Apr, Undifferentiated schizophrenia F20.3 ; PTSD (post-traumatic stress disorder) F43.10 and Obesity E66.9 [facility] [place] [id number] [place] [address] 75659- 6144 Apr, [facility] [place] [id number] [place] [address] 65688- 5115 15 Mar, 2016 [facility] [place] [id number] [place] [address] 10625- 3883 Mar, [facility] [place] [id number] [place] [address] 64615- 3657 Jan, Shortness of breath R06.02 and Bipolar disorder with psychotic features F31.9 [id number] [place] [address] 52313- 3626 Jan, [facility] [place] [id number] [place] [address] 64476- 3101 Jan, Increased intracranial pressure G93.2 ; Visual disturbance H53.9 and Bipolar II disorder F31.81 [place] [id number] [place] [address] 54085- 6151 Jan, [place] [id number] [place] [address] 69264- 9593 Jan, [place] [id number] [place] [address] 37746- 1198 Jan, [id number] [place] [address] 02779- 7642 Jan, Acquired hypothyroidism E03.9 ; Depression F32.9 and Insomnia G47.00 [place] [id number] [place] [address] [phone]- 2329 Jan, Exertional dyspnea R06.09 ; Heart palpitations R00.2 ; Hyperlipidemia, unspecified hyperlipidemia type E78.5 ; Hypothyroidism, unspecified type E03.9 and Hypokalemia E87.6 [place] [id number] [place] [address] 77580- 5639 Dec, PTSD (post-traumatic stress disorder) F43.10 ; Depression F32.9 ; Insomnia G47.00 and Bipolar disorder with psychotic features F31.9 [place] [id number] [place] [address] [phone]- 9722 Dec, Increased intracranial pressure G93.2 [place] [id number] [place] [address] 93538- 1788 Dec, [place] [id number] [place] [address] 37229- 9318 Dec, Shortness of breath R06.02 [place] [id number] [place] [address] [phone]- [phone] 05 Jan, 2016 Visual disturbance H53.9 and Headache, unspecified headache type R51 [place] [id number] [place] [address] 39264- 9735 Dec, Insomnia G47.00 [place] [address] 97090- 6628 Dec, Murmur R01.1 [place] [address] 35078- 3788 Dec, Murmur R01.1 ; Tunnel vision, unspecified laterality H53.489 ; Orthostatic hypertension I10 ; Shortness of breath R06.02 and Tachycardia R00.0 [place] [id number] [place] [address] 18515- 3500 Dec, [place] [id number] [place] [address] 39441- 0862 Dec, Hypothyroid E03.9 and Bipolar 1 disorder F31.9 [place] [address] 55133- 7653 Dec, Bipolar 1 disorder F31.9 [place] [id number] [place] [address] 84788- 1752 Dec, [place] [id number] [place] [address] 54541- 4009 October, Acquired hypothyroidism E03.9 ; Depression F32.9 and Insomnia G47.00 [place] [id number] [place] [address] 15845- 2768 October, [place] [id number] [place] [address] 62388- 3570 October, Bipolar 1 disorder F31.9 ; PTSD (post-traumatic stress disorder) F43.10 and Social phobia F40.10 [place] [id number] [place] [address] 25731- 7865 Oct, Bipolar 1 disorder F31.9 and Insomnia G47.00 [facility] [place] [id number] [place] [address] 77251- 2994 Oct, [facility] [place] [id number] [place] [address] 17001- 2067 Oct, [facility] [place] [address] 61435- 0019 Aug, Hypothyroid E03.9 [place] [id number] [place] [address] 80977- 6686 Aug, Encounter for therapeutic drug level monitoring Z51.81 and Other care home (current) drug therapy Z79.8[address] [place] [place] [id number] [place] [address] 46776- 3401 Aug, Encounter for therapeutic drug level monitoring Z51.81 [place] [id number] [place] [address] 20851- 4217 Aug, Acquired hypothyroidism E03.9 ; Leg pain M79.606 and Bipolar 1 disorder F31.9 [place] [id number] [place] [address] 44862- 5561 Aug, [place] [id number] [place] [address] 59784- 9931 Aug, [place] [id number] [place] [address] 12590- 5431 Jul, Thyroid disorder E07.9 [facility] [place] [id number] [place] [address] 43360- 4999 Jul, Rash R21 ; Abnormal LFTs R94.5 ; Acquired hypothyroidism E03.9 ; Sleep apnea in adult G47.33 and Fatty liver K76.0 [facility] [place] [id number] [place] [address] 39600- 6146 Jun, [place] [id number] [place] [address] 481957- 5775 Jun, [facility] [place] [id number] [place] [address] 326644- 2220 Jun, Bipolar II disorder F31.81 and Social phobia, generalized F40.11 [facility] [place] [id number] [place] [address] 00128- 7017 Mar, Bipolar II disorder 296.89 and Social phobia 300.23 [facility] [place] [id number] [place] [address] 316642- 7927 Dec, [facility] [place] [address] 28513- 9695 Dec, [facility] [place] [id number] [place] [address] 038391- 0469 Dec, Bipolar II disorder in partial or unspecified remission 296.89 and Social phobia, generalized 300.23 [facility] [place] [id number] [place] [address] 84436- 6408 30 Oct, 2014 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 [facility] [place] [id number] [place] [address] 94431- 8409 14 Oct, 2014 [facility] [place] [id number] [place] [address] 27741- 8562 Oct, [facility] [place] [id number] [place] [address] 72839- 2432 Aug, [facility] [place] [id number] [place] [address] 07755- 6966 Aug, [facility] [place] [id number] [place] [address] 716255- 4576 Aug, [facility] [place] [id number] [place] [address] 695019- 2332 Aug, [facility] [place] [id number] [place] [address] 469272- 2082 Aug, [facility] [address] [id number] [place] [address]- 3956 Aug, [facility] [place] [facility] [address] [id number] [place] 6637 Aug, [facility] [place] [facility] [address] [id number] [place] [address]- 8886 Aug, [facility] [place] [facility] [address] [id number] [place] [address]- 8968 Jul, [facility] [place] [facility] [address] [id number] [place] [address]- 4735 Jul, [facility] [place] [facility] [address] [id number] [place] [address]- 8364 Jul, [facility] [place] [facility] [address] [id number] [place] [address]- 6701 Jul, [facility] [place] [facility] [address] [id number] [place] [address]- 7553 Jul, [facility] [place] [facility] [address] [id number] [place] [address]- 2948 Jul, [facility] [place] [facility] [address] [id number] [place] [address]- 8104 Jun, [facility] [place] [facility] [address] [id number] [place] [address]- 9345 Jun, [facility] [place] [facility] [address] [id number] [place] [address]- 0715 Jun, [facility] [place] [facility] [address] [id number] [place] [address]- 2855 Jun, [facility] [place] [facility] [address] [id number] [place] [address]- 0343 Jun, [facility] [place] [facility] [address] [id number] [place] [address]- 0266 Jun, [facility] [place] [facility] [address] [id number] [address]- 3823 Jun, [facility] [place] [facility] [address] [id number] [place] [address]- 0866 Jun, [facility] [place] [facility] [address] [id number] [place] 3852 Jun, [facility] [place] [facility] [address] [id number] [place] [address]- 8140 Jun, [facility] [place] [facility] [address] [id number] [place] [address]- 3561 Jun, [facility] [place] [facility] [address] [id number] [place] [address]- 5940 Jun, [facility] [place] [facility] [address] [id number] [place] [address]- 7343 Jun, [facility] [place] [facility] [address] [id number] [place] [address]- 6135 Jun, [facility] [place] [facility] [address] [id number] [place] [address]- 0020 Jun, [facility] [place] [facility] [address] [id number] [place] [address]- 9660 Jun, [facility] [place] [facility] [address] [id number] [place] [address]- 9577 May, [facility] [place] [facility] [address] [id number] [address]- 3908 May, [facility] [place] [facility] [address] [id number] [address]- 1106 May, [facility] [place] [facility] [address] [id number] [address]- 8924 May, [facility] [place] [facility] [address] [id number] [address]- 4028 May, [facility] [place] [facility] [address] [id number] [place] [address]- 7252 May, [facility] [place] [facility] [address] [id number] [place] [address]- 7044 Apr, [facility] [place] [facility] [address] [id number] [place] [address]- 1252 Apr, [facility] [place] [facility] [address] [id number] [place] [address]- 7514 Apr, [facility] [place] [facility] [address] [id number] [place] [address]- 3120 Apr, [facility] [place] [facility] [address] [id number] [place] [address]- 1390 Apr, [facility] [place] [facility] [address] [id number] [place] [address]- 2082 Apr, [facility] [place] [facility] [address] [id number] [place] [address]- 2253 Mar, [facility] [place] [facility] [address] [id number] [place] [address]- 4726 Mar, [facility] [place] [facility] [address] [id number] [place] [address]- 2142 Mar, [facility] [place] [facility] [address] [id number] [place] [address]- 3734 Mar, [facility] [place] [facility] [address] [id number] [place] [address]- 3920 Jan, [facility] [place] [facility] [address] [id number] [place] [address]- 6927 Jan, [facility] [place] [facility] [address] [id number] [place] [address]- 7576 Jan, [facility] [place] [facility] [address] [id number] [place] [address]- 5517 Jan, [facility] [place] [facility] [address] [id number] [place] [address]- 3019 Jan, [facility] [place] [facility] [address] [id number] [place] [address]- 7727 Jan, [facility] [place] [facility] [address] [id number] [place] [address]- 9316 Dec, [facility] [place] [facility] [address] [id number] [place] [address]- 0362 Dec, [facility] [place] [facility] [address] [id number] [place] [address]- 2309 Dec, [facility] [place] [facility] [address] [id number] [place] [address]- 0035 Dec, [facility] [place] [facility] [address] [id number] [place] [address]- 8754 Dec, [facility] [place] [facility] [address] [id number] [place] [address]- 8878 Dec, [facility] [place] [facility] [address] [id number] [place] [address]- 3905 October, [facility] [place] [facility] [address] [id number] [place] [address]- 0269 October, [facility] [place] [facility] [address] [id number] [place] [address]- 6219 October, [facility] [place] [facility] [address] [id number] [place] [address]- 8801 October, [facility] [place] [facility] [address] [id number] [place] [address]- 2772 October, [facility] [place] [facility] [address] [id number] [place] [address]- 9021 October, [facility] [place] [facility] [address] [id number] [place] [address]- 5852 October, [facility] [place] [facility] [address] [id number] [place] 8793 October, [facility] [place] [facility] [address] [id number] [place] [address]- 7765 Oct, [facility] [place] [facility] [address] [id number] [place] [address]- 5928 Oct, [facility] [place] [facility] [address] [id number] [place] [address]- 2072 Oct, [facility] [place] [facility] [address] [id number] [place] [address]- 5531 Oct, [facility] [place] [facility] [address] [id number] [place] [address]- 7695 Oct, [facility] [place] [facility] [address] [id number] [place] [address]- 8099 Aug, [facility] [place] [facility] [address] [id number] [place] [address]- 6594 Aug, [facility] [place] [facility] [address] [id number] [place] [address]- 9072 Aug, [facility] [place] [facility] [address] [id number] [place] [address]- 3350 Aug, [facility] [place] [facility] [address] [id number] [place] [address]- 7750 Aug, [facility] [place] [facility] [address] [id number] [place] [address]- 0193 Aug, [facility] [place] [facility] [address] [facility] [id number] [place] [address]- 7902 Jul, [facility] [place] [facility] [address] [id number] [place] [address]- 4561 Jul, [facility] [place] [facility] [address] [id number] [place] [address]- 4404 Jul, [facility] [place] [facility] [address] [id number] [place] [address]- 8710 Jul, [facility] [place] [facility] [address] [id number] [place] [address]- 9314 Jul, [facility] [place] [facility] [address] [id number] [place] [address]- 0387 Jul, [facility] [place] [facility] [address] [id number] [place] [address]- 2890 Jun, [facility] [place] [facility] [address] [id number] [place] 8078 Jun, [facility] [place] [facility] [address] [id number] [place] 3106 Jun, [facility] [place] [facility] [address] [id number] [place] [address]- 6738 Jun, [facility] [place] [facility] [address] [id number] [place] [address]- 1290 Jun, [facility] [place] [facility] [address] [id number] [place] [address]- 7319 Jun, [facility] [place] [facility] [address] [id number] [place] 2640 May, [facility] [place] [facility] [address] [id number] [place] [address]- 0158 May, [facility] [place] [facility] [address] [id number] [place] [address]- 8242 Apr, [facility] [place] [facility] [address] [id number] [place] [address]- 5760 Apr, [facility] [place] [facility] [address] [id number] [address]- 1066 Apr, [facility] [place] [facility] [address] [id number] [place] [address]- 9034 Apr, [facility] [place] [facility] [address] [id number] [place] [address]- 5649 Apr, [facility] [place] [facility] [address] [id number] [place] 7011 Apr, [facility] [place] [facility] [address] [id number] [place] 0860 Apr, [facility] [place] [facility] [address] [id number] [place] [address]- 4785 Apr, [facility] [place] [facility] [address] [id number] [place] [address]- 8159 18 Apr, 2013 [facility] [place] [facility] [address] [id number] [place] [address]- 0799 04 Apr, 2013 [facility] [place] [facility] [address] [id number] [place] [address]- 8847 Apr, [facility] [place] [facility] [address] [id number] [place] [address]- 3335 23 Mar, 2013 [facility] [place] [facility] [address] [id number] [place] [address]- 3877 20 Mar, 2013 [facility] [place] [facility] [address] [id number] [place] [address]- 3335 20 Mar, 2013 [facility] [place] [facility] [address] [id number] [place] [address]- 3449 14 Mar, 2013 [facility] [place] [facility] [address] [id number] [place] [address]- 6517 12 Mar, 2013 [facility] [place] [facility] [address] [id number] [place] [address]- 7339 06 Mar, 2013 [facility] [place] [facility] [address] [id number] [place] [address]- 8868 06 Mar, 2013 [facility] [place] [facility] [address] [id number] [place] [address]- 5041 Jan, [facility] [place] [facility] [address] [id number] [place] [address]- 4387 Jan, [facility] [place] [facility] [address] [id number] [place] [address]- 9662 Jan, [facility] [place] [facility] [address] [id number] [place] [address]- 1433 Jan, [facility] [place] [facility] [address] [id number] [place] [address]- 2639 08 Jan, 2013 [facility] [place] [facility] [address] [id number] [place] [address]- 2546 Jan, [facility] [address] [id number] [place] [address]- 0391 Jan, [facility] [address] [id number] [place] [address]- 2546 Dec, [facility] [address] [id number] [place] [address]- 3470 Dec, [facility] [address] [id number] [place] [address]- 2548 Dec, [facility] [address] [id number] [place] [address]- 7727 Dec, [facility] [address] [id number] [place] [address]- 8718 Dec, [facility] [address] [id number] [place] [address]- 7803 Dec, [facility] [address] [id number] [place] [address]- 3247 October, [facility] [address] [id number] [place] [address]- 1636 October, [facility] [address] [id number] [place] [address]- 6443 October, [facility] [address] [id number] [place] [address]- 2546 October, [facility] [address] [id number] [place] [address]- 2545 Oct, [facility] [address] [id number] [place] [address]- 2546 Oct, [facility] [address] [id number] [place] [address]- 2546 Aug, [facility] [address] [id number] [place] [address]- 3272 Aug, [facility] [address] [id number] [place] [address]- 8919 Aug, [facility] [place] [facility] [address] [id number] [place] [address]- 1826 Aug, [facility] [place] [facility] [address] [id number] [place] [address]- 2833 18 Aug, 2012 [facility] [place] [facility] [address] [id number] [place] [address]- 5577 Aug, [facility] [place] [facility] [address] [id number] [place] [address]- 2791 Aug, [facility] [place] [facility] [address] [id number] [place] [address]- 3918 Aug, [facility] [place] [facility] [address] [id number] [place] [address]- 1627 Aug, [facility] [place] [facility] [address] [id number] [place] [address]- 0478 Aug, [facility] [place] [facility] [address] [id number] [place] [address]- 7364 Aug, [facility] [place] [facility] [address] [id number] [place] [address]- 8743 Aug, [facility] [place] [facility] [address] [id number] [place] [address]- 6495 Aug, [facility] [place] [facility] [address] [id number] [place] [address]- 8911 Aug, [facility] [place] [facility] [address] [id number] [place] [address]- 4274 Jul, [facility] [place] [facility] [address] [id number] [place] [address]- 0846 Jul, [facility] [place] [facility] [address] [id number] [place] [address]- 3590 Jul, [facility] [place] [facility] [address] [id number] [address]- 0569 Jul, [facility] [place] [address] [id number] [address]- 5390 Jun, [facility] [place] [id number] [address]- 2667 Jun, [facility] [place] [id number] [address]- 6880 Jun, [facility] [place] [id number] [address]- 4880 Jun, [facility] [place] [id number] [address]- 4012 May, [facility] [place] [id number] [address]- 8027 May, IMMUNIZATIONS No Known Immunizations SOCIAL HISTORY Never Assessed REASON FOR VISIT ross/Olag ZAMBRANO PLAN OF CARE Activity Details Follow Up 3 Months Reason: VITAL SIGNS Height 67 in 2017-09-12 Weight 343.2 lbs 2017-09-12 Heart Rate 82 bpm 2017-09-12 Respiratory Rate 22 2017-09-12 BMI 53.75 kg/m2 2017-09-12 Blood pressure systolic 116 mmHg 2017-09-12 Blood pressure diastolic 78 mmHg 2017-09-12 MEDICATIONS Medication Instructions Dosage Frequency Start Date End Date Duration Status Imbery Carbonate 300 MG Orally for mood 1 tablet in the morning, 2 tablets at bedtime Active Trazodone HCl 100 mg Orally Once a day 2 tablet at bedtime 24h Active Breo Ellipta 100-25 MCG/INH Inhalation Once a day 1 puff 24h 20 Dec, 2015 90 days Active Neurontin 400 MG Orally 2 times a day 2 capsules 12h Aug, 60 days Active Levothyroxine Sodium 100 MCG Orally Once a day 1 tablet 24h Aug, 90 days Active Aristada 882 MG/3.2ML Intramuscular once monthly 3.2 ml May, Active Seroquel 50 MG Orally at bedtime for sleep 1 tablet May, Active Clonazepam 1 MG Orally 3 times a day for anxiety 1 tablet Apr, Active RESULTS No Results PROCEDURES No Known [...]
--- OUTSIDE RECORDS SUMMARY | 2018-09-02 18:14 | XMS REPORT ---
Author Author AMARI HOWARD [facility] Address [address] [place] [address] Care Team Providers Care [employer] Name Role Phone AMARI HOWARD Unavailable PROBLEMS Type Condition ICD9-CM Code EEE04-XO Code Onset Dates Condition Status SNOMED Code Problem Panic disorder with agoraphobia F40.01 Active 33556170 Problem Depressive disorder, not elsewhere classified F32.9 Active 89896716 Problem Chronic posttraumatic stress disorder F43.12 Active 434764515 Problem Insomnia G47.00 Active 114277250 Problem Obesity E66.9 Active 200764320 Problem Other chronic pain G89.29 Active 63243044 Problem Fatty liver K76.0 Active 167710209 Problem Abuse, drug or alcohol F19.10 Active 45806274 Problem Panic disorder without agoraphobia F41.0 Active 98230708 Problem Panic disorder F41.0 Active 666948577 Problem Hypothyroid E03.9 Active 44550112 Problem BMI 50.0-59.9, adult Z68.43 Active 943790958 Problem Restless legs syndrome G25.81 Active 707225674 Problem Encounter for therapeutic drug level monitoring Z51.81 Active 004153181 Problem Neuropathy G62.9 Active 982601758 Problem Social phobia F40.10 Active 37784442 Problem Tachycardia R00.0 Active 5871718 Problem Murmur R01.1 Active 289975305 Problem Orthostatic hypertension I10 Active 26804759 Problem Shortness of breath R06.02 Active 652442792 Problem Sleep apnea in adult G47.33 Active 82111767 Problem Tunnel vision, unspecified laterality H53.489 Active 341745521 Problem Undifferentiated schizophrenia F20.3 Active [id number] ALLERGIES No Information ENCOUNTERS Encounter Location Date Diagnosis [facility] [address] [facility] [id number] [address] 18 Apr, 2018 [facility] [address] [address] 3[address] Dec, [facility] [id number] [place] [address] 25809- 6367 Dec, [facility] [address] [address] 4765 Dec, Undifferentiated schizophrenia F20.3 ; Panic disorder with agoraphobia F40.01 ; Chronic posttraumatic stress disorder F43.12 and BMI 50.0- 59.9, adult Z68.43 [facility] [id number] [address] 0117 Dec, [facility] [id number] [place] [address] 54907- 0302 Dec, Undifferentiated schizophrenia F20.3 ; Insomnia G47.00 and Thyroid disorder E07.9 [facility] [id number] [place] [address] 45676- 0886 Dec, Undifferentiated schizophrenia F20.3 [facility] [address] [address] 9271 Dec, [facility] [id number] [address] 1528 Dec, [facility] [address] [address] 6076 Dec, BMI 50.0-59.9, adult Z68.43 ; Undifferentiated schizophrenia F20.3 ; Panic disorder without agoraphobia F41.0 and Chronic posttraumatic stress disorder F43.12 [facility] [address] [address] 9906 04 Dec, 2017 [facility] [address] [address] 5323 October, [facility] [address] [address] 3761 October, Pain in right shoulder M25.511 and Other chronic pain G89.29 [facility] [address] [place] [address] 51355- 9733 October, Hypothyroid E03.9 [facility] [id number] [place] [address] 36481- 8874 Oct, Undifferentiated schizophrenia F20.3 [facility] [id number] [place] [address] 55402- 0245 Oct, [facility] [id number] [place] [address] 90079- 3695 Oct, [facility] [id number] [place] [address] 64601- 0568 Aug, Undifferentiated schizophrenia F20.3 [facility] [id number] [place] [address] 97314- 0569 Aug, [facility] [id number] [place] [address] 97273- 6057 Aug, Undifferentiated schizophrenia F20.3 ; Panic disorder with agoraphobia F40.01 ; Chronic posttraumatic stress disorder F43.12 and BMI 50.0- 59.9, adult Z68.43 [facility] [id number] [place] [address] 63831- 5195 Aug, [facility] [id number] [place] [address] 16696- 8165 Aug, [facility] [id number] [place] [address] 94283- 2126 Aug, Undifferentiated schizophrenia F20.3 [facility] [address] [place] [address] 00667- 0026 Aug, Hypothyroid E03.9 [facility] [address] [place] [address] 93559- 0180 Jul, Undifferentiated schizophrenia F20.3 [facility] [id number] [place] [address] 43959- 7085 Jul, [facility] [id number] [place] [address] 86188- 0274 Jul, Undifferentiated schizophrenia F20.3 ; Chronic posttraumatic stress disorder F43.12 ; Panic disorder with agoraphobia F40.01 and BMI 50.0-59.9, adult Z68.43 [facility] [id number] [place] [address] 34297- 3796 15 Jul, 2017 [facility] [address] 48511- 4207 08 Jul, 2017 Acute pain of right shoulder M25.511 ; High risk medication use Z79.899 ; Needle stick injury W27.3XXA ; Hypothyroid E03.9 and BMI 50.0-59.9 , adult Z68.43 [facility] [id number] [place] [address] 52896- 5338 Jun, Undifferentiated schizophrenia F20.3 [place] [address] 40411- 7241 Jun, Undifferentiated schizophrenia F20.3 ; Panic disorder without agoraphobia F41.0 ; Chronic posttraumatic stress disorder F43.12 and BMI 50.0-59.9, adult Z68.43 [facility] [id number] [place] [address] 32902- 4467 May, [facility] [id number] [place] [address] 19703- 6868 May, [facility] [id number] [place] [address] 77632- 1341 May, Undifferentiated schizophrenia F20.3 [facility] [address] 22895- 6546 May, [facility] [address] 23944- 9244 May, [facility] [id number] [place] [address] 98789- 9880 May, Hypothyroid E03.9 [facility] [id number] [address]- 2777 13 May, 2017 [facility] [id number] [place] [address] 08048- 3209 10 May, 2017 [facility] [id number] [place] [address] 60695- 5375 May, Chronic posttraumatic stress disorder F43.12 ; Panic disorder with agoraphobia F40.01 ; Undifferentiated schizophrenia F20.3 ; BMI 40.0-44.9, adult Z68.41 and Obesity E66.9 [facility] [id number] [place] [address] 69195- 5622 07 May, 2017 Shortness of breath R06.02 [facility] [id number] [place] [address] 47098- 2114 May, [facility] [id number] [place] [address] 19079- 7028 Apr, Undifferentiated schizophrenia F20.3 [facility] [id number] [place] [address] 96285- 0301 Apr, [facility] [id number] [place] [address] 78861- 1466 Apr, [facility] [id number] [place] [address] 74342- 6096 Mar, Undifferentiated schizophrenia F20.3 ; Panic disorder without agoraphobia F41.0 and Chronic posttraumatic stress disorder F43.12 [facility] [address] [place] [address] 52896- 0685 Mar, Undifferentiated schizophrenia F20.3 [facility] [id number] [place] [address] 24307- 2865 18 Mar, 2017 [facility] [id number] [place] [address] 77248- 6823 08 Mar, 2017 [facility] [id number] [place] [address] 76991- 5842 Mar, [facility] [address] [facility] [id number] [address]- 7411 Jan, Undifferentiated schizophrenia F20.3 [facility] [id number] [place] [address] 56885- 2787 Jan, [facility] [id number] [place] [address] 92484- 8884 Jan, [facility] [id number] [place] [address] 19278- 7400 Jan, [facility] [address] [id number] [id number] Dec, Needle stick injury W27.3XXA [facility] [id number] [place] [address] 17314- 2264 Dec, Needle stick injury W27.3XXA [facility] [address] [place] [address] 02122- 7276 Dec, Undifferentiated schizophrenia F20.3 [facility] [address] [place] [address] 31083- 0819 Dec, [facility] [id number] [place] [address] 82037- 5854 Dec, [facility] [id number] [place] [address] 53205- 5530 Dec, Undifferentiated schizophrenia F20.3 ; Panic disorder with agoraphobia F40.01 and Chronic posttraumatic stress disorder F43.12 [facility] [address] [facility] [id number] [address]- 5964 Dec, [facility] [id number] [place] [address] 00538- 8600 October, [facility] [id number] [address]- 3505 October, Undifferentiated schizophrenia F20.3 [facility] [id number] [address]- 2995 October, [facility] [id number] [place] [address] 24096- 1664 October, [facility] [id number] [place] [address] 05756- 9779 Oct, Undifferentiated schizophrenia F20.3 ; Panic disorder with agoraphobia F40.01 ; Chronic posttraumatic stress disorder F43.12 and Obesity E66.9 [facility] [id number] [place] [address] 00235- 5512 Oct, [facility] [id number] [place] [address] 96586- 5913 Oct, [facility] [id number] [place] [address] 78300- 5227 Aug, Undifferentiated schizophrenia F20.3 [facility] [id number] [place] [address] 98411- 6192 Aug, [facility] [id number] [place] [address] 50952- 8541 Aug, Muscle spasm M62.838 [facility] [id number] [place] [address] 39602- 7351 Aug, Undifferentiated schizophrenia F20.3 [facility] [id number] [place] [address] 09884- 1108 Aug, Undifferentiated schizophrenia F20.3 ; Panic disorder with agoraphobia F40.01 ; Chronic posttraumatic stress disorder F43.12 ; High risk medication use Z79.899 and Social phobia F40.10 [facility] [id number] [place] [address] 40991- 5078 Aug, Undifferentiated schizophrenia F20.3 [facility] [address] [place] [address] 24959- 3537 Aug, [facility] [id number] [place] [address] 51563- 2471 14 Aug, 2016 Acute non-recurrent maxillary sinusitis J01.00 [facility] [address] [place] [address] 57097- 1750 10 Aug, 2016 [facility] [id number] [place] [address] 14497- 8529 01 Aug, 2016 [facility] [id number] [place] [address] 44030- 2087 Jul, Undifferentiated schizophrenia F20.3 [facility] [id number] [place] [address] 21674- 4470 Jul, Schizophrenia, undifferentiated F20.3 ; Social phobia F40.10 ; Post-traumatic stress disorder F43.10 ; Panic disorder F41.0 and Depressive disorder, not elsewhere classified F32.9 [facility] [id number] [place] [address] 83518- 9859 Jul, [facility] [id number] [place] [address] 05430- 5553 Jul, Schizophrenia, undifferentiated F20.3 ; Social phobia F40.10 ; Post-traumatic stress disorder F43.10 ; Panic disorder F41.0 and Depressive disorder, not elsewhere classified F32.9 [facility] [address] [place] [address] 49896- 2880 Jul, [facility] [id number] [place] [address] 90366- 6925 Jul, Undifferentiated schizophrenia F20.3 ; Panic disorder with agoraphobia F40.01 ; Social phobia F40.10 ; Obesity E66.9 and Chronic posttraumatic stress disorder F43.12 [facility] [id number] [place] [address] 78836- 6490 Jun, [facility] [id number] [place] [address] 97888- 4869 Jun, [facility] [id number] [place] [address] 38288- 6870 Jun, Dental caries K02.9 [facility] [id number] [place] [address] 62289- 5860 Jun, Undifferentiated schizophrenia F20.3 [facility] [id number] [place] [address] 51049- 8661 30 May, 2016 [facility] [id number] [place] [address] 49081- 8327 May, Undifferentiated schizophrenia F20.3 ; Panic disorder with agoraphobia F40.01 and Chronic post-traumatic stress disorder (PTSD) F43.12 [facility] [id number] [place] [address] 03982- 2159 May, [facility] [id number] [place] [address] 19922- 8951 May, Undifferentiated schizophrenia F20.3 [facility] [id number] [place] [address] 06308- 4725 May, [facility] [id number] [place] [address] 49018- 0320 07 May, 2016 Dental examination Z01.20 [facility] [id number] [place] [address] 11488- 0673 20 Apr, 2016 Undifferentiated schizophrenia F20.3 ; PTSD (post-traumatic stress disorder) F43.10 and Obesity E66.9 [facility] [id number] [place] [address] 85854- 8968 Apr, [facility] [id number] [place] [address] 41753- 5035 15 Mar, 2016 [facility] [id number] [place] [address] 82893- 8633 Mar, [facility] [address] [place] [address] 20885- 5221 Jan, Shortness of breath R06.02 and Bipolar disorder with psychotic features F31.9 [facility] [id number] [address]- 7230 Jan, [facility] [id number] [place] [address] 55301- 9596 Jan, Increased intracranial pressure G93.2 ; Visual disturbance H53.9 and Bipolar II disorder F31.81 [place] [id number] [place] [address] 64465- 1089 Jan, [place] [id number] [place] [address] 50531- 4068 Jan, [place] [id number] [place] [address] 45658- 7600 Jan, [place] [id number] [place] [address] 06582- 9328 Jan, Acquired hypothyroidism E03.9 ; Depression F32.9 and Insomnia G47.00 [place] [id number] [place] [address] 10282- 6621 Jan, Exertional dyspnea R06.09 ; Heart palpitations R00.2 ; Hyperlipidemia, unspecified hyperlipidemia type E78.5 ; Hypothyroidism, unspecified type E03.9 and Hypokalemia E87.6 [place] [address] [place] [address] 36119- 7494 Dec, PTSD (post-traumatic stress disorder) F43.10 ; Depression F32.9 ; Insomnia G47.00 and Bipolar disorder with psychotic features F31.9 [place] [address] [place] [address] 44782- 0383 Dec, Increased intracranial pressure G93.2 [place] [id number] [place] [address] 87390- 3312 Dec, [place] [facility] [id number] [place] [address] 86967- 5336 Dec, Shortness of breath R06.02 [place] [id number] [place] [address] 80344- 2482 Dec, Visual disturbance H53.9 and Headache, unspecified headache type R51 [place] [address] 32719- 1185 Dec, Insomnia G47.00 [place] [id number] [place] [address] 73626- 7182 Dec, Murmur R01.1 [place] [address] 36124- 7753 Dec, Murmur R01.1 ; Tunnel vision, unspecified laterality H53.489 ; Orthostatic hypertension I10 ; Shortness of breath R06.02 and Tachycardia R00.0 [place] [address] 02415- 1900 Dec, [place] [address] 09296- 9793 Dec, Hypothyroid E03.9 and Bipolar 1 disorder F31.9 [facility] [id number] [place] [address] 35585- 6740 Dec, Bipolar 1 disorder F31.9 [place] [address] 89435- 0298 Dec, [facility] [facility] [id number] [place] [address] 51892- 7057 October, Acquired hypothyroidism E03.9 ; Depression F32.9 and Insomnia G47.00 [place] [id number] [place] [address] 29950- 3443 October, [place] [address] 19907- 6431 October, Bipolar 1 disorder F31.9 ; PTSD (post-traumatic stress disorder) F43.10 and Social phobia F40.10 [facility] [id number] [place] [address] 16558- 5320 Oct, Bipolar 1 disorder F31.9 and Insomnia G47.00 [facility] [address] [address]- 0811 Oct, [facility] [id number] [place] [address] 80477- 3526 Oct, [facility] [id number] [place] [address] 50011- 7223 Aug, Hypothyroid E03.9 [facility] [id number] [place] [address] 41439- 2252 Aug, Encounter for therapeutic drug level monitoring Z51.81 and 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 [facility] [id number] [place] [address] 25063- 5653 Aug, Encounter for therapeutic drug level monitoring Z51.81 [facility] [id number] [place] [address] 67592- 3352 Aug, Acquired hypothyroidism E03.9 ; Leg pain M79.606 and Bipolar 1 disorder F31.9 [facility] [id number] [place] [address] 62731- 4268 Aug, [facility] [id number] [place] [address] 85856- 7566 Aug, [facility] [id number] [place] [address] 01311- 4537 Jul, Thyroid disorder E07.9 [facility] [id number] [place] [address] 02737- 9714 Jul, Rash R21 ; Abnormal LFTs R94.5 ; Acquired hypothyroidism E03.9 ; Sleep apnea in adult G47.33 and Fatty liver K76.0 [facility] [address] [place] [address] 34100- 8916 Jun, [facility] [id number] [place] [address] 41708- 8591 Jun, [facility] [id number] [place] [address] 172212- 1857 Jun, Bipolar II disorder F31.81 and Social phobia, generalized F40.11 [facility] [id number] [place] [address] 40148- 9666 Mar, Bipolar II disorder 296.89 and Social phobia 300.23 [facility] [id number] [place] [address] 31152- 9320 Dec, [facility] [id number] [place] [address] 93871- 7591 Dec, [facility] [id number] [place] [address] 15799- 8040 Dec, Bipolar II disorder in partial or unspecified remission 296.89 and Social phobia, generalized 300.23 [facility] [id number] [place] [address] 23670- 9856 Oct, 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 [facility] [id number] [place] [address] 20722- 8070 Oct, [facility] [id number] [place] [address] 28359- 2534 Oct, [facility] [id number] [place] [address] 03750- 8089 Aug, [facility] [id number] [place] [address] 93100- 0312 Aug, [facility] [id number] [place] [address] [id number] Aug, [facility] [id number] [place] [address] [id number]- 2526 Aug, [facility] [id number] [place] [address] 53823- 1745 Aug, [facility] [id number] [place] [address] 691911- 3791 Aug, [facility] [place] [facility] [address] [id number] [place] [address] 8818 Aug, [facility] [place] [facility] [address] [id number] [place] [address] Aug, [facility] [place] [facility] [address] [id number] [place] [address]- 0631 Jul, [facility] [place] [facility] [address] [id number] [place] [address]- 1066 Jul, [facility] [place] [facility] [address] [id number] [place] [address]- 0831 Jul, [facility] [place] [facility] [address] [id number] [place] [address]- 2961 Jul, [facility] [place] [facility] [address] [id number] [place] [address]- 0330 Jul, [facility] [place] [facility] [address] [id number] [place] [address]- 4230 Jul, [facility] [place] [facility] [address] [id number] [place] [address]- 3579 Jun, [facility] [place] [facility] [address] [id number] [place] [address]- 1207 Jun, [facility] [place] [facility] [address] [id number] [place] [address]- 1072 Jun, [facility] [place] [facility] [address] [id number] [place] [address]- 1853 Jun, [facility] [place] [facility] [address] [id number] [place] [address]- 2318 Jun, [facility] [place] [facility] [address] [id number] [place] [address] Jun, [facility] [place] [facility] [address] [id number] [place] [address]- 7279 Jun, [facility] [place] [facility] [address] [id number] [address] 2631 Jun, [facility] [place] [facility] [address] [id number] [place] [address]- 9729 Jun, [facility] [place] [facility] [address] [id number] [place] 7747 Jun, [facility] [place] [facility] [address] [id number] [place] [address]- 4787 Jun, [facility] [place] [facility] [address] [id number] [place] [address]- 4203 Jun, [facility] [place] [facility] [address] [id number] [place] [address]- 6735 Jun, [facility] [place] [facility] [address] [id number] [place] [address]- 9492 Jun, [facility] [place] [facility] [address] [facility] [id number] [place] [address]- 0313 Jun, [facility] [place] [facility] [address] [id number] [place] [address]- 5806 Jun, [facility] [place] [facility] [address] [id number] [address] 9792 May, [facility] [place] [facility] [address] [id number] [address] May, [facility] [place] [facility] [address] [id number] [address] May, [facility] [place] [facility] [address] [id number] [address] 113[address] May, [facility] [place] [facility] [address] [id number] [address] May, [facility] [place] [facility] [address] [id number] [address] May, [facility] [place] [facility] [address] [id number] [address] Apr, [facility] [place] [facility] [address] [id number] [place] [address] Apr, [facility] [place] [facility] [address] [id number] [place] [address] 7767 Apr, [facility] [place] [facility] [address] [id number] [place] [address]- 3596 Apr, [facility] [place] [facility] [address] [id number] [place] [address]- 2480 Apr, [facility] [place] [facility] [address] [id number] [place] [address] Apr, [facility] [place] [facility] [address] [id number] [place] [address]- 6290 Mar, [facility] [place] [facility] [address] [id number] [place] [address] 7397 Mar, [facility] [place] [facility] [address] [id number] [place] [address]- 6480 Mar, [facility] [place] [facility] [address] [id number] [place] [address]- 5[address] Mar, [facility] [place] [facility] [address] [id number] [place] [address] Jan, [facility] [place] [facility] [address] [id number] [place] [address]- 9[address] Jan, [facility] [place] [facility] [address] [id number] [place] [address]- 6961 Jan, [facility] [place] [facility] [address] [id number] [place] [address]- 4489 Jan, [facility] [place] [facility] [address] [id number] [place] [address]- 2215 Jan, [facility] [place] [facility] [address] [id number] [place] [address]- 5597 Jan, [facility] [place] [facility] [address] [id number] [place] [address]- 1135 Dec, [facility] [place] [facility] [address] [id number] [place] [address]- 4701 Dec, [facility] [place] [facility] [address] [id number] [place] [address]- 5783 Dec, [facility] [place] [facility] [address] [id number] [place] [address]- 7948 Dec, [facility] [place] [facility] [address] [id number] [place] [address]- 4249 Dec, [facility] [place] [facility] [address] [id number] [place] [address]- 1484 Dec, [facility] [place] [facility] [address] [id number] [place] [address]- 7288 October, [facility] [place] [facility] [address] [id number] [place] [address]- 0953 October, [facility] [place] [facility] [address] [id number] [place] [address]- 3334 October, [facility] [place] [facility] [address] [id number] [place] [address]- 4525 October, [facility] [place] [facility] [address] [id number] [place] [address]- 6533 October, [facility] [place] [facility] [address] [id number] [place] [address]- 0919 October, [facility] [place] [facility] [address] [id number] [place] [address]- 4938 October, [facility] [place] [facility] [address] [id number] [place] [address]- 6377 October, [facility] [place] [facility] [address] [id number] [place] [address]- 2293 Oct, [facility] [place] [facility] [address] [id number] [place] [address] 5999 Oct, [facility] [place] [facility] [address] [id number] [place] [address]- 7513 Oct, [facility] [place] [facility] [address] [id number] [place] [address]- 8567 Oct, [facility] [place] [facility] [address] [id number] [place] [address]- 0091 Oct, [facility] [place] [facility] [address] [facility] [id number] [place] [address]- 4757 Aug, [facility] [place] [facility] [address] [id number] [place] [address]- 2577 Aug, [facility] [place] [facility] [address] [id number] [place] [address]- 0167 Aug, [facility] [place] [facility] [address] [id number] [place] [address]- 3210 Aug, [facility] [place] [facility] [address] [id number] [place] [address]- 5604 Aug, [facility] [place] [facility] [address] [id number] [place] [address]- 8018 Aug, [facility] [place] [facility] [address] [id number] [place] [address] Jul, [facility] [place] [facility] [address] [facility] [id number] [place] [address]- 1630 Jul, [facility] [place] [facility] [address] [id number] [place] [address]- 6854 Jul, [facility] [place] [facility] [address] [id number] [place] [address]- 8547 Jul, [facility] [place] [facility] [address] [id number] [place] [address]- 5034 Jul, [facility] [place] [facility] [address] [facility] [id number] [place] [address]- 5301 Jul, [facility] [place] [facility] [address] [id number] [place] [address]- 7135 Jun, [facility] [place] [facility] [address] [id number] [place] [address]- 7887 Jun, [facility] [place] [facility] [address] [id number] [place] [address]- 9817 Jun, [facility] [place] [facility] [address] [id number] [place] [address]- 4660 Jun, [facility] [place] [facility] [address] [id number] [place] [address]- 0710 Jun, [facility] [place] [facility] [address] [id number] [place] [address]- 4774 Jun, [facility] [place] [facility] [address] [id number] [place] [address]- 1631 May, [facility] [place] [facility] [address] [id number] [place] [address]- 9153 May, [facility] [place] [facility] [address] [id number] [address]- 6635 Apr, [facility] [place] [facility] [address] [id number] [place] [address]- 9659 Apr, [facility] [place] [facility] [address] [id number] [address] 3759 Apr, [facility] [place] [facility] [address] [id number] [address]- 1129 Apr, [facility] [place] [facility] [address] [id number] [address]- 6377 Apr, [facility] [place] [facility] [address] [id number] [address]- 0816 Apr, [facility] [place] [facility] [address] [id number] [address]- 8911 Apr, [facility] [place] [facility] [address] [id number] [address]346 Apr, [facility] [place] [facility] [address] [id number] [address]- 2425 Apr, [facility] [place] [facility] [address] [id number] [place] [address]- 3746 Apr, [facility] [place] [facility] [address] [id number] [place] [address]- 0975 Apr, [facility] [place] [facility] [address] [id number] [place] [address]- 3354 23 Mar, 2013 [facility] [place] [facility] [address] [id number] [place] [address]- 0614 20 Mar, 2013 [facility] [place] [facility] [address] [id number] [place] [address]- 4148 Mar, [facility] [place] [facility] [address] [id number] [place] [address]- 3633 14 Mar, 2013 [facility] [place] [facility] [address] [id number] [place] [address]- 3138 Mar, [facility] [place] [facility] [address] [id number] [place] [address]- 0428 Mar, [facility] [place] [facility] [address] [id number] [place] [address]- 8229 Mar, [facility] [place] [facility] [address] [id number] [place] [address]- 8218 Jan, [facility] [place] [facility] [address] [id number] [place] [address]- 7888 Jan, [facility] [place] [facility] [address] [id number] [place] [address]- 8119 Jan, [facility] [place] [facility] [address] [id number] [place] [address]- 0855 Jan, [facility] [place] [facility] [address] [id number] [place] [address]- 7658 Jan, [facility] [place] [facility] [address] [id number] [place] [address]- 4485 Jan, [facility] [place] [facility] [address] [id number] [place] [address]- 2546 Jan, [facility] [address] [id number] [place] [address]- 2027 Dec, [facility] [address] [id number] [place] [address]- 7326 Dec, [facility] [address] [id number] [place] [address]- 3495 Dec, [facility] [address] [id number] [place] [address]- 5116 Dec, [facility] [address] [id number] [place] [address]- 2890 Dec, [facility] [address] [id number] [place] [address]- 7302 Dec, [facility] [address] [id number] [place] [address]- 1934 October, [facility] [address] [id number] [place] [address]- 6662 October, [facility] [address] [id number] [place] [address]- 2139 October, [facility] [address] [id number] [place] [address]- 5752 October, [facility] [address] [id number] [place] [address]- 9786 Oct, [facility] [address] [id number] [place] [address]- 5776 Oct, [facility] [place] [facility] [address] [id number] [place] [address]- 2546 Aug, [facility] [place] [facility] [address] [id number] [place] [address]- 2546 Aug, [facility] [address] [id number] [place] [address]- 6212 Aug, [facility] [address] [id number] [place] [address]- 4284 Aug, [facility] [place] [facility] [address] [id number] [place] [address] 2546 Aug, [facility] [place] [facility] [address] [id number] [place] [address]- 3254 Aug, [facility] [place] [facility] [address] [id number] [place] [address]- 0200 Aug, [facility] [place] [facility] [address] [id number] [place] [address]- 8781 Aug, [facility] [place] [facility] [address] [id number] [place] [address]- 7184 Aug, [facility] [place] [facility] [address] [id number] [place] [address]- 4160 Aug, [facility] [place] [facility] [address] [id number] [place] [address]- 6480 Aug, [facility] [place] [facility] [address] [id number] [place] [address]- 2578 08 Aug, 2012 [facility] [place] [facility] [address] [id number] [place] [address]- 5481 Aug, [facility] [place] [facility] [address] [id number] [place] [address]- 8576 Aug, [facility] [place] [facility] [address] [id number] [place] [address]- 2488 Jul, [facility] [place] [facility] [address] [id number] [place] [address]- 9403 Jul, [facility] [place] [facility] [address] [id number] [place] [address]- 4129 Jul, [facility] [place] [facility] [address] [id number] [place] [address]- 2336 Jul, [facility] [place] [facility] [address] [facility] [id number] [place] [address]- 2430 Jun, [facility] [address] [facility] [id number] [address]- 6236 Jun, [facility] [address] [id number] [address]- 0384 Jun, [facility] [address] [facility] [id number] [address]- 1056 Jun, [facility] [address] [facility] [id number] [address]- 5459 May, [facility] [address] [facility] [id number] [address]- 4929 May, IMMUNIZATIONS Vaccine Route Administration Date Status ARISTADA 882 MG/2.5 ML (PT'S OWN) IM Intramuscular September 26, 2017 Administered SOCIAL HISTORY Never Assessed REASON FOR VISIT Injection-Raza ZAMBRANO PLAN OF CARE Activity Details Follow Up 4 Weeks Reason:injection VITAL SIGNS MEDICATIONS Unknown Medications RESULTS No Results PROCEDURES Procedure Date Ordered Result Body Site ARISTADA 882 MG/2.5 ML (PT'S OWN) September 26, 2017 THER/PROPH/DIAG INJ, SC/IM September 26, 2017 INSTRUCTIONS MEDICATIONS ADMINISTERED No Known Medications [...]
--- OUTSIDE RECORDS SUMMARY | 2018-09-02 18:15 | XMS REPORT ---
Author Author AMARI HOWARD [facility] Address [address] [place] [address] Care Team Providers Care [employer] T[employer] Repairer Name Role Phone AMARI HOWARD Unavailable PROBLEMS Type Condition ICD9-CM Code [id number] Code Onset Dates Condition Status SNOMED Code Problem Panic disorder with agoraphobia F40.01 Active 22961038 Problem Depressive disorder, not elsewhere classified F32.9 Active 12538783 Problem Chronic posttraumatic stress disorder F43.12 Active 014046000 Problem Insomnia G47.00 Active 314624634 Problem Obesity E66.9 Active 028591779 Problem Other chronic pain G89.29 Active 06259131 Problem Fatty liver K76.0 Active 431405441 Problem Abuse, drug or alcohol F19.10 Active 66630929 Problem Panic disorder without agoraphobia F41.0 Active 38060283 Problem Panic disorder F41.0 Active 136196020 Problem Hypothyroid E03.9 Active 09918539 Problem BMI 50.0-59.9, adult Z68.43 Active 142422995 Problem Restless legs syndrome G25.81 Active 742548235 Problem Encounter for therapeutic drug level monitoring Z51.81 Active 258952401 Problem Neuropathy G62.9 Active 634857383 Problem Social phobia F40.10 Active 45707571 Problem Tachycardia R00.0 Active 0348507 Problem Murmur R01.1 Active 297068757 Problem Orthostatic hypertension I10 Active 57830239 Problem Shortness of breath R06.02 Active 639750582 Problem Sleep apnea in adult G47.33 Active 25418814 Problem Tunnel vision, unspecified laterality H53.489 Active 410190109 Problem Undifferentiated schizophrenia F20.3 Active 874011235 ALLERGIES No Information ENCOUNTERS Encounter Location Date Diagnosis [facility] [address] [facility] [id number] [address] Dec, [facility] [address], [place] [address] 6[address] Dec, [facility] [id number] [place] [address] 60900- 6074 Dec, [facility] [id number], [place] [address] Dec, [facility] [id number] [place] [address] 31645- 3514 Dec, Undifferentiated schizophrenia F20.3 ; Insomnia G47.00 and Thyroid disorder E07.9 [facility] [id number] [place] [address] 48184- 2329 Dec, Undifferentiated schizophrenia F20.3 [facility] [id number] [place] [address] 27043- 4040 Dec, [facility] [id number] [place] [address] 77629- 9924 Dec, [facility] [id number], [place] [address] 4049 Dec, BMI 50.0-59.9, adult Z68.43 ; Undifferentiated schizophrenia F20.3 ; Panic disorder without agoraphobia F41.0 and Chronic posttraumatic stress disorder F43.12 [facility] [address], [place] [address] Dec, [facility] [address], [place] [address] October, [facility] [address], [place] [address] 0408 October, Pain in right shoulder M25.511 and Other chronic pain G89.29 [facility] [address], [place] [address] 8809 October, Hypothyroid E03.9 [facility] [address], [place] [address] 9831 Oct, Undifferentiated schizophrenia F20.3 [facility] [address], [place] [address] 9560 Oct, [facility] [id number] [place] [address] 29152- 0229 Oct, [facility] [id number], [place] [address] 9855 Aug, Undifferentiated schizophrenia F20.3 [facility] [id number] [place] [address] 36626- 6239 Aug, [facility] [address] [place] [address] 38614- 1946 Aug, Undifferentiated schizophrenia F20.3 ; Panic disorder with agoraphobia F40.01 ; Chronic posttraumatic stress disorder F43.12 and BMI 50.0- 59.9, adult Z68.43 [facility] [id number] [place] [address] 13061- 0420 Aug, [facility] [address], [place] [address] 3935 Aug, [facility] [id number] [place] [address] 76489- 5968 Aug, Undifferentiated schizophrenia F20.3 [facility] [address], [place] [address]- 6835 Aug, Hypothyroid E03.9 [facility] [address], [place] [address]- 4231 Jul, Undifferentiated schizophrenia F20.3 [facility] [address], [place] [address]- 6432 Jul, [facility] [id number] [place] [address] 37282- 1290 Jul, Undifferentiated schizophrenia F20.3 ; Chronic posttraumatic stress disorder F43.12 ; Panic disorder with agoraphobia F40.01 and BMI 50.0-59.9, adult Z68.43 [facility] [id number] [place] [address] 19558- 0736 Jul, [facility] [id number] [place] [address] 07958- 7481 Jul, Acute pain of right shoulder M25.511 ; High risk medication use Z79.899 ; Needle stick injury W27.3XXA ; Hypothyroid E03.9 and BMI 50.0-59.9 , adult Z68.43 [facility] [id number] [place] [address] 10471- 0293 Jun, Undifferentiated schizophrenia F20.3 [facility] [id number] [place] [address] 66416- 4609 14 Jun, 2017 Undifferentiated schizophrenia F20.3 ; Panic disorder without agoraphobia F41.0 ; Chronic posttraumatic stress disorder F43.12 and BMI 50.0-59.9, adult Z68.43 [facility] [id number] [place] [address] 36678- 8819 27 May, 2017 [facility] [id number] [place] [address] 31216- 0534 May, [facility] [id number] [place] [address] 19383- 0972 May, Undifferentiated schizophrenia F20.3 [facility] [address] [place] [address] 00262- 1092 May, [facility] [id number] [place] [address] 04887- 6479 May, [facility] [id number] [place] [address] 15857- 3874 May, Hypothyroid E03.9 [facility] [id number] [place] [address] 84441- 2739 13 May, 2017 [facility] [id number] [place] [address] 73571- 8923 May, [facility] [id number] [place] [address] 94020- 9942 07 May, 2017 Chronic posttraumatic stress disorder F43.12 ; Panic disorder with agoraphobia F40.01 ; Undifferentiated schizophrenia F20.3 ; BMI 40.0-44.9, adult Z68.41 and Obesity E66.9 [facility] [id number] [place] [address] 52431- 4399 07 May, 2017 Shortness of breath R06.02 [facility] [id number] [place] [address] 36337- 8697 May, [facility] [id number] [place] [address] 37088- 7905 Apr, Undifferentiated schizophrenia F20.3 [facility] [id number] [place] [address] 12408- 7624 Apr, [facility] [id number] [place] [address] 99724- 9770 Apr, [facility] [id number] [place] [address] 22870- 8263 Mar, Undifferentiated schizophrenia F20.3 ; Panic disorder without agoraphobia F41.0 and Chronic posttraumatic stress disorder F43.12 [facility] [id number] [place] [address] 44165- 1573 Mar, Undifferentiated schizophrenia F20.3 [facility] [id number] [place] [address] 69680- 0269 18 Mar, 2017 [facility] [id number] [place] [address] 39633- 2943 08 Mar, 2017 [facility] [id number] [place] [address] 51452- 6649 07 Mar, 2017 [facility] [id number] [place] [address] 04424- 7278 Jan, Undifferentiated schizophrenia F20.3 [facility] [id number] [place] [address] 62579- 7811 Jan, [facility] [address], [place] [address]- 9434 Jan, [facility] [id number] [place] [address] 06945- 8565 Jan, [facility] [address] [id number] [id number] Dec, Needle stick injury W27.3XXA [facility] [id number] [place] [address] 67068- 1040 Dec, Needle stick injury W27.3XXA [facility] [id number] [place] [address] 34522- 2293 Dec, Undifferentiated schizophrenia F20.3 [facility] [id number] [place] [address] 56499- 7825 Dec, [facility] [id number] [place] [address] 71281- 0183 Dec, [facility] [id number] [place] [address] 38236- 8942 Dec, Undifferentiated schizophrenia F20.3 ; Panic disorder with agoraphobia F40.01 and Chronic posttraumatic stress disorder F43.12 [facility] [id number] [place] [address] 06555- 1913 Dec, [facility] [id number] [place] [address] 72802- 7702 October, [facility] [id number] [place] [address] 30637- 9362 October, Undifferentiated schizophrenia F20.3 [facility] [id number] [place] [address] 85671- 2428 October, [facility] [id number] [place] [address] 84825- 8572 October, [facility] [id number] [place] [address] 70988- 7396 Oct, Undifferentiated schizophrenia F20.3 ; Panic disorder with agoraphobia F40.01 ; Chronic posttraumatic stress disorder F43.12 and Obesity E66.9 [facility] [id number] [place] [address] 10224- 8052 Oct, [facility] [id number] [place] [address] 84966- 1620 Oct, [facility] [id number] [place] [address] 11456- 9829 Aug, Undifferentiated schizophrenia F20.3 [facility] [id number] [place] [address] 47435- 7339 Aug, [facility] [id number] [place] [address] 07461- 8071 Aug, Muscle spasm M62.838 [facility] [id number] [place] [address] 11528- 2506 Aug, Undifferentiated schizophrenia F20.3 [facility] [id number] [place] [address] 68205- 3266 Aug, Undifferentiated schizophrenia F20.3 ; Panic disorder with agoraphobia F40.01 ; Chronic posttraumatic stress disorder F43.12 ; High risk medication use Z79.899 and Social phobia F40.10 [facility] [address], [place] [address]- 3135 Aug, Undifferentiated schizophrenia F20.3 [facility] [id number] [place] [address] 29045- 1726 Aug, [facility] [id number] [place] [address] 02487- 5269 14 Aug, 2016 Acute non-recurrent maxillary sinusitis J01.00 [facility] [id number] [place] [address] 56273- 8172 10 Aug, 2016 [facility] [id number] [place] [address] 35842- 8153 Aug, [facility] [id number] [place] [address] 38182- 4306 Jul, Undifferentiated schizophrenia F20.3 [facility] [id number] [place] [address] 92056- 5611 Jul, Schizophrenia, undifferentiated F20.3 ; Social phobia F40.10 ; Post-traumatic stress disorder F43.10 ; Panic disorder F41.0 and Depressive disorder, not elsewhere classified F32.9 [facility] [id number] [place] [address] 55948- 8765 Jul, [facility] [id number] [place] [address] 59612- 7361 Jul, Schizophrenia, undifferentiated F20.3 ; Social phobia F40.10 ; Post-traumatic stress disorder F43.10 ; Panic disorder F41.0 and Depressive disorder, not elsewhere classified F32.9 [facility] [id number] [place] [address] 01026- 3478 Jul, [facility] [id number] [place] [address] 59392- 5754 Jul, Undifferentiated schizophrenia F20.3 ; Panic disorder with agoraphobia F40.01 ; Social phobia F40.10 ; Obesity E66.9 and Chronic posttraumatic stress disorder F43.12 [facility] [id number] [place] [address] 18393- 1114 Jun, [facility] [id number] [place] [address] 87678- 4173 Jun, [facility] [id number] [place] [address] 13886- 7175 Jun, Dental caries K02.9 [facility] [id number] [place] [address] 19171- 9369 Jun, Undifferentiated schizophrenia F20.3 [facility] [id number] [place] [address] 84858- 6614 May, [facility] [id number] [place] [address] 31770- 9675 May, Undifferentiated schizophrenia F20.3 ; Panic disorder with agoraphobia F40.01 and Chronic post-traumatic stress disorder (PTSD) F43.12 [facility] [id number] [place] [address] 77591- 4377 May, [facility] [address] 15714- 3775 May, Undifferentiated schizophrenia F20.3 [facility] [address] 98027- 4245 May, [facility] [id number] [place] [address] 91899- 5458 May, Dental examination Z01.20 [facility] [address] 36061- 6982 Apr, Undifferentiated schizophrenia F20.3 ; PTSD (post-traumatic stress disorder) F43.10 and Obesity E66.9 [facility] [id number] [place] [address] 59046- 2716 Apr, [facility] [id number] [place] [address] 91709- 0163 15 Mar, 2016 [place] [id number] [place] [address] 99884- 1500 Mar, [facility] [id number] [place] [address] 76265- 0064 Jan, Shortness of breath R06.02 and Bipolar disorder with psychotic features F31.9 [facility] [id number] [place] [address] 67577- 4406 Jan, [facility] [id number] [place] [address] 08034- 8952 Jan, Increased intracranial pressure G93.2 ; Visual disturbance H53.9 and Bipolar II disorder F31.81 [facility] [id number] [place] [address] 04535- 6864 Jan, [facility] [id number] [place] [address] 34214- 7797 Jan, [facility] [id number] [place] [address] 75189- 4626 Jan, [facility] [id number] [place] [address] 73895- 5923 Jan, Acquired hypothyroidism E03.9 ; Depression F32.9 and Insomnia G47.00 [facility] [address] 96937- 8691 Jan, Exertional dyspnea R06.09 ; Heart palpitations R00.2 ; Hyperlipidemia, unspecified hyperlipidemia type E78.5 ; Hypothyroidism, unspecified type E03.9 and Hypokalemia E87.6 [facility] [id number] [place] [address] 42394- 4030 Dec, PTSD (post-traumatic stress disorder) F43.10 ; Depression F32.9 ; Insomnia G47.00 and Bipolar disorder with psychotic features F31.9 [facility] [id number] [place] [address] 03535- 1483 Dec, Increased intracranial pressure G93.2 [facility] [id number] [place] [address] 05093- 3604 Dec, [facility] [id number] [place] [address] 82583- 0999 Dec, Shortness of breath R06.02 [facility] [id number] [place] [address] 70805- 3625 Dec, Visual disturbance H53.9 and Headache, unspecified headache type R51 [facility] [id number] [place] [address] 20586- 1695 Dec, Insomnia G47.00 [place] [address] [place] [address]- 9094 Dec, Murmur R01.1 [facility] [address] 03745- 8487 Dec, Murmur R01.1 ; Tunnel vision, unspecified laterality H53.489 ; Orthostatic hypertension I10 ; Shortness of breath R06.02 and Tachycardia R00.0 [place] [address] 31201- 7517 Dec, [facility] [address] 36530- 7062 Dec, Hypothyroid E03.9 and Bipolar 1 disorder F31.9 [place] [address] 35719- 8154 Dec, Bipolar 1 disorder F31.9 [facility] [address] 70362- 4150 Dec, [facility] [address] 27540- 9436 October, Acquired hypothyroidism E03.9 ; Depression F32.9 and Insomnia G47.00 [facility] [address] 58749- 7831 October, [facility] [address] 71768- 2461 October, Bipolar 1 disorder F31.9 ; PTSD (post-traumatic stress disorder) F43.10 and Social phobia F40.10 [place] [place] [address] 34180- 1025 Oct, Bipolar 1 disorder F31.9 and Insomnia G47.00 [facility] [address] 91929- 2626 Oct, [facility] [address] 41846- 2920 Oct, [facility] [id number] [place] [address] 13855- 4504 30 Sep, 2015 Hypothyroid E03.9 [facility] [id number] [place] [address] 95853- 6819 17 Sep, 2015 Encounter for therapeutic drug level monitoring Z51.81 and Other halfway (current) drug therapy Z79.899 [facility] [id number] [place] [address] 81554- 6894 Aug, Encounter for therapeutic drug level monitoring Z51.81 [facility] [id number] [place] [address] 93284- 6352 Aug, Acquired hypothyroidism E03.9 ; Leg pain M79.606 and Bipolar 1 disorder F31.9 [facility] [id number] [place] [address] 16924- 1769 Aug, [facility] [address] 08907- 2128 Aug, [facility] [id number] [place] [address] 42427- 7386 Jul, Thyroid disorder E07.9 [facility] [place] [id number] [place] [address] 49535- 0565 Jul, Rash R21 ; Abnormal LFTs R94.5 ; Acquired hypothyroidism E03.9 ; Sleep apnea in adult G47.33 and Fatty liver K76.0 [facility] [id number] [place] [address] 66522- 4866 Jun, [facility] [id number] [place] [address] 99512- 0299 Jun, [facility] [id number] [place] [address] 10360- 1235 Jun, Bipolar II disorder F31.81 and Social phobia, generalized F40.11 [facility] [id number] [place] [address] 17040- 9680 Mar, Bipolar II disorder 296.89 and Social phobia 300.23 [facility] [id number]- 9177 Dec, [facility] [address] [facility] [id number], [place] [address]- 0949 Dec, [facility] [address]- 3407 Dec, Bipolar II disorder in partial or unspecified remission 296.89 and Social phobia, generalized 300.23 [facility] [address] [facility] [id number] 1108 Oct, 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 [facility] [id number] [address]- 2655 Oct, [facility] [id number] [address]- 3304 Oct, [facility] [address], [place] [address]- 5953 Aug, [facility] [address], [place] [address]- 1791 Aug, [facility] [address], [place] [address]- 0177 Aug, [facility] [address], [place] [address]- 6651 Aug, [facility] [address], [place] [address]- 1689 Aug, [facility] [address]- 2845 Aug, [facility] [address]- 3428 Aug, [facility] [address], [place] [address]- 5054 Aug, [facility] [address] [place] [address]- 4057 Jul, [facility] [address] [id number] [place] [address]- 9947 Jul, [facility] [address] [id number] [place] [address]- 2389 Jul, [facility] [address] [id number] [place] [address]- 5722 Jul, [facility] [address] [id number] [place] [address]- 2368 Jul, [facility] [address] [id number] [place] [address]- 3271 Jul, [facility] [address] [id number] [place] [address]- 0156 Jun, [facility] [address] [id number] [place] [address]- 2454 Jun, [facility] [address] [id number] [place] [address]- 9790 Jun, [facility] [address] [id number] [place] [address]- 4669 Jun, [facility] [address] [id number] [place] [address] Jun, [facility] [address] [id number] [place] [address] Jun, [facility] [address] [id number] [place] [address] Jun, [facility] [place] [facility] [address] [id number] [place] [address] Jun, [facility] [address] [id number] [place] [address] Jun, [facility] [address] [id number] [place] [address] Jun, [facility] [place] [facility] [address] [id number] [place] [address] Jun, [facility] [place] [facility] [address] [id number] [place] [address] Jun, [facility] [place] [facility] [address] [id number] [place] [address] Jun, [facility] [place] [facility] [address] [id number] [place] [address] Jun, [facility] [place] [facility] [address] [id number] [place] [address] [address] Jun, [facility] [place] [facility] [address] [id number] [place] [address] Jun, [facility] [place] [facility] [address] [id number] [place] [address] May, [facility] [place] [facility] [address] [id number] [address] May, [facility] [place] [facility] [address] [id number] [place] [address] May, [facility] [place] [facility] [address] [id number], [place] [address] May, [facility] [place] [facility] [address] [id number], [place] [address] May, [facility] [place] [facility] [address] [id number], [place] [address] May, [facility] [place] [facility] [address] [id number] [address] Apr, [facility] [place] [facility] [address] [id number], [place] [address] Apr, [facility] [place] [facility] [address] [id number], [place] [address] Apr, [facility] [place] [facility] [address] [id number], [place] [address] Apr, [facility] [place] [facility] [address] [id number] [place] [address] Apr, [facility] [place] [facility] [address] [id number] [place] [address]- [address] Apr, [facility] [place] [facility] [address] [id number] [place] [address] Mar, [facility] [place] [facility] [address] [id number] [place] [address]- 9485 Mar, [facility] [place] [facility] [address] [id number] [place] [address] 8245 Mar, [facility] [place] [facility] [address] [id number] [place] [address]- 3543 Mar, [facility] [place] [facility] [address] [id number] [place] [address] Jan, [facility] [place] [facility] [address] [id number] [place] [address]- 7276 Jan, [facility] [place] [facility] [address] [id number] [place] [address]- 6408 Jan, [facility] [place] [facility] [address] [id number] [place] [address]- 2584 Jan, [facility] [place] [facility] [address] [id number] [place] [address]- 1468 Jan, [facility] [place] [facility] [address] [id number] [place] [address]- 3162 Jan, [facility] [place] [facility] [address] [id number] [place] [address]- 1289 Dec, [facility] [place] [facility] [address] [id number] [place] [address]- 4958 Dec, [facility] [place] [facility] [address] [id number] [place] [address]- 5340 Dec, [facility] [place] [facility] [address] [id number] [place] [address]- 5664 Dec, [facility] [place] [facility] [address] [id number] [place] [address]- 9379 Dec, [facility] [place] [facility] [address] [id number] [place] [address]- 6562 Dec, [facility] [place] [facility] [address] [id number] [place] [address]- 9133 October, [facility] [place] [facility] [address] [id number] [place] [address]- 31[address] October, [facility] [place] [facility] [address] [id number] [place] [address]- 5314 October, [facility] [place] [facility] [address] [id number] [place] [address]- 5028 October, [facility] [place] [facility] [address] [id number] [place] [address]- 0322 October, [facility] [place] [facility] [address] [id number] [place] [address]- 4447 October, [facility] [place] [facility] [address] [id number] [place] [address]- 0543 October, [facility] [place] [facility] [address] [id number] [place] [address] October, [facility] [place] [facility] [address] [id number] [place] [address]- 4524 Oct, [facility] [place] [facility] [address] [id number] [place] [address]- 0438 Oct, [facility] [place] [facility] [address] [id number] [place] [address]- 1732 Oct, [facility] [place] [facility] [address] [id number] [place] [address]- 8448 Oct, [facility] [place] [facility] [address] [id number] [place] [address]326 Oct, [facility] [place] [facility] [address] [id number] [place] [address] Aug, [facility] [place] [facility] [address] [id number] [place] [address]- 1775 Aug, [facility] [place] [facility] [address] [id number] [place] [address]- 4749 Aug, [facility] [place] [facility] [address] [id number] [place] [address]- 8222 Aug, [facility] [place] [facility] [address] [id number] [place] [address]- 4203 Aug, [facility] [place] [facility] [address] [id number] [place] [address]- 9753 Aug, [facility] [place] [facility] [address] [id number] [place] [address]- [address]113 Jul, [facility] [place] [facility] [address] [id number] [place] [address]- 7388 Jul, [facility] [place] [facility] [address] [id number] [place] [address]- 3194 Jul, [facility] [place] [facility] [address] [id number] [place] [address]- 9556 Jul, [facility] [place] [facility] [address] [id number] [place] [address]- 9065 Jul, [facility] [place] [facility] [address] [id number], [place] [address]- 7165 Jul, [facility] [place] [facility] [address] [id number] [place] [address]- 3392 Jun, [facility] [place] [facility] [address] [id number] [place] [address]- 7805 Jun, [facility] [place] [facility] [address] [id number] [place] [address]- 0599 Jun, [facility] [place] [facility] [address] [id number] [place] [address]- 7514 Jun, [facility] [address] [id number] [place] [address]- 4178 Jun, [facility] [place] [facility] [address] [id number] [place] [address]- 9739 Jun, [facility] [place] [facility] [address] [id number] [place] [address]- 9345 May, [facility] [place] [facility] [address] [id number] [place] [address]- 2728 May, [facility] [place] [facility] [address] [id number] [place] [address] Apr, [facility] [place] [facility] [address] [id number] [place] [address]- 9397 Apr, [facility] [place] [facility] [address] [id number] [place] [address]- 9942 Apr, [facility] [address] [id number] [place] [address]- 2477 Apr, [facility] [place] [facility] [address] [id number] [place] [address]- 0695 Apr, [facility] [address] [id number] [place] [address]- 5734 Apr, [facility] [place] [facility] [address] [id number] [place] [address]- 3564 Apr, [facility] [place] [facility] [address] [id number], [place] [address]- 5367 Apr, [facility] [place] [facility] [address] [id number] [place] [address]- 8751 Apr, [facility] [place] [facility] [address] [id number] [place] [address]- 2689 Apr, [facility] [place] [facility] [address] [id number] [place] [address] Apr, [facility] [place] [facility] [address] [id number] [place] [address]- 4910 23 Mar, 2012 [facility] [place] [facility] [address] [id number] [place] [address]- 3207 20 Mar, 2012 [facility] [place] [facility] [address] [id number] [place] [address]- 9333 20 Mar, 2012 [facility] [place] [facility] [address] [id number] [place] [address]- 2860 14 Mar, 2012 [facility] [place] [facility] [address] [id number] [place] [address]- 2514 12 Mar, 2012 [facility] [place] [facility] [address] [id number] [place] [address]- 7021 Mar, 2012 [facility] [place] [facility] [address] [id number] [place] [address]- 7273 Mar, 2012 [facility] [place] [facility] [address] [id number] [place] [address]- 2046 Jan, [facility] [place] [facility] [address] [id number] [place] [address]- 7417 Jan, [facility] [place] [facility] [address] [id number], [place] [address]- 3200 Jan, [facility] [place] [facility] [address] [id number], [place] [address]- 2120 Jan, [facility] [place] [facility] [address] [id number], [place] [address]- 3369 Jan, [facility] [place] [facility] [address] [id number] [place] [address]- 3562 Jan, [facility] [place] [facility] [address] [id number] [place] [address]- 1472 Jan, [facility] [place] [facility] [address] [id number], [place] [address]- 5837 Dec, [facility] [place] [facility] [address] [id number], [place] [address]- 2171 Dec, [facility] [address] [id number] [place] [address]- 3601 Dec, [facility] [address] [id number] [place] [address]- 7555 Dec, [facility] [address] [id number] [place] [address]- 8640 Dec, [facility] [address] [id number] [place] [address]- 2757 Dec, [facility] [address] [id number] [place] [address]- 8140 October, [facility] [address] [id number] [place] [address]- 2120 October, [facility] [address] [id number] [place] [address]- 7763 October, [facility] [address] [id number] [place] [address]- 5977 October, [facility] [address] [id number] [place] [address]- 3056 Oct, [facility] [address] [id number] [place] [address]- 8954 Oct, [facility] [address] [id number] [place] [address]- 9154 27 Aug, 2012 [facility] [address] [id number] [place] [address]- 6618 Aug, [facility] [address] [id number] [place] [address]- 9610 21 Aug, 2012 [facility] [address] [id number] [place] [address]- 5900 20 Aug, 2012 [facility] [address] [id number] [place] [address]- 9188 18 Aug, 2012 [facility] [place] [facility] [address] [id number] [place] [address]- 7892 Aug, [facility] [place] [facility] [address] [id number] [place] [address]- 0486 Aug, [facility] [place] [facility] [address] [id number] [place] [address] 2546 Aug, [facility] [place] [facility] [address] [id number] [place] [address] 2546 Aug, [facility] [place] [facility] [address] [id number] [place] [address]- 2549 Aug, [facility] [place] [facility] [address] [id number] [place] [address]- 5356 Aug, [facility] [place] [facility] [address] [facility] [id number] [place] [address]- 2545 Aug, [facility] [place] [facility] [address] [id number] [place] [address]- 4646 Aug, [facility] [place] [facility] [address] [id number] [place] [address]- 6515 Aug, [facility] [place] [facility] [address] [facility] [id number] [place] [address]- 9400 Jul, [facility] [place] [facility] [address] [facility] [id number], [place] [address] 2547 Jul, [facility] [place] [facility] [address] [id number], [place] [address]- 8702 Jul, [facility] [place] [facility] [address] [id number] [place] [address] 2543 Jul, [facility] [place] [facility] [address] [id number] [place] [address]- 2546 Jun, [facility] [place] [facility] [address] [facility] [id number], [place] [address]- 2544 Jun, [facility] [place] [facility] [address] [id number], [place] [address]- 6552 Jun, [facility] [address] [facility] [id number] [place] [address]- 3296 Jun, [facility] [address] [facility] [id number], [place] [address]- 6565 May, [facility] [address] [facility] [id number] [place] [address]- 1520 May, IMMUNIZATIONS No Known Immunizations SOCIAL HISTORY Never Assessed REASON FOR VISIT [facility] refill PLAN OF CARE VITAL SIGNS MEDICATIONS [...]
--- OUTSIDE RECORDS SUMMARY | 2018-09-02 18:16 | XMS REPORT ---
Author Author JOSE LARRY [facility] Address [address] [place] [address] Care Team Providers Care Social Professionals Name Role Phone JOSE LARRY Unavailable PROBLEMS Type Condition ICD9-CM Code [id number] Code Onset Dates Condition Status SNOMED Code Problem Undifferentiated schizophrenia F20.3 Active 280650193 Problem Chronic posttraumatic stress disorder F43.12 Active 163510739 Problem Panic disorder with agoraphobia F40.01 Active 92701961 Problem Other chronic pain G89.29 Active 47187261 Problem Fatty liver K76.0 Active 332457529 Problem Hypothyroid E03.9 Active 60618573 Problem Abuse, drug or alcohol F19.10 Active 29175012 Problem Sleep apnea in adult G47.33 Active 92094184 Problem Panic disorder F41.0 Active 157188680 Problem Depressive disorder, not elsewhere classified F32.9 Active 16928903 Problem BMI 50.0-59.9, adult Z68.43 Active 256286894 Problem Panic disorder without agoraphobia F41.0 Active 13964011 Problem Social phobia F40.10 Active 15100148 Problem Restless legs syndrome G25.81 Active 768455392 Problem Obesity E66.9 Active 618871116 Problem Neuropathy G62.9 Active 586295778 Problem Tunnel vision, unspecified laterality H53.489 Active 231181983 Problem Tachycardia R00.0 Active 1069264 Problem Encounter for therapeutic drug level monitoring Z51.81 Active 320522835 Problem Murmur R01.1 Active 138193350 Problem Orthostatic hypertension I10 Active 36007019 Problem Shortness of breath R06.02 Active [id number] ALLERGIES No Information ENCOUNTERS Encounter Location Date Diagnosis [facility] [address] [facility] [id number] [id number] [address] Dec, [facility] [id number] [place] [address] 92728- 6204 Dec, [facility] [id number] [place] [address] 30901- 1374 Dec, [facility] [id number] [place] [address] 28170- 7457 Dec, Undifferentiated schizophrenia F20.3 [facility] [id number] [place] [address] 45092- 0476 Dec, [facility] [id number] [place] [address] 69235- 8953 Dec, [facility] [id number] [place] [address] 03134- 8073 Dec, BMI 50.0-59.9, adult Z68.43 ; Undifferentiated schizophrenia F20.3 ; Panic disorder without agoraphobia F41.0 and Chronic posttraumatic stress disorder F43.12 [facility] [id number] [place] [address] 21697- 2379 Dec, [facility] [id number] [place] [address] 52288- 2962 October, [facility] [id number] [place] [address] 27114- 4171 October, Pain in right shoulder M25.511 and Other chronic pain G89.29 [facility] [id number] [place] [address] 16305- 3939 October, Hypothyroid E03.9 [facility] [id number] [place] [address] 57220- 4480 Oct, Undifferentiated schizophrenia F20.3 [facility] [id number] [place] [address] 27366- 0163 Oct, [facility] [id number] [place] [address] 92920- 8255 Oct, [facility] [id number] [place] [address] 77397- 1272 Aug, Undifferentiated schizophrenia F20.3 [facility] [address] [address] 5322 Aug, [facility] [id number] [place] [address] 75202- 4517 Aug, Undifferentiated schizophrenia F20.3 ; Panic disorder with agoraphobia F40.01 ; Chronic posttraumatic stress disorder F43.12 and BMI 50.0- 59.9, adult Z68.43 [facility] [id number] [place] [address] 07252- 3445 05 Aug, 2017 [facility] [id number] [place] [address] 24489- 0959 Aug, [facility] [id number] [place] [address] 23978- 2637 Aug, Undifferentiated schizophrenia F20.3 [facility] [id number] [place] [address] 24564- 4537 Aug, Hypothyroid E03.9 [facility] [id number] [place] [address] 11028- 9805 Jul, Undifferentiated schizophrenia F20.3 [facility] [id number] [place] [address] 24927- 2917 Jul, [facility] [id number] [place] [address] 56521- 9661 Jul, Undifferentiated schizophrenia F20.3 ; Chronic posttraumatic stress disorder F43.12 ; Panic disorder with agoraphobia F40.01 and BMI 50.0-59.9, adult Z68.43 [facility] [id number] [place] [address] 14663- 2712 15 Jul, 2017 [facility] [id number] [place] [address] 67999- 4342 08 Jul, 2017 Acute pain of right shoulder M25.511 ; High risk medication use Z79.899 ; Needle stick injury W27.3XXA ; Hypothyroid E03.9 and BMI 50.0-59.9 , adult Z68.43 [facility] [id number] [place] [address] 29968- 2960 Jun, Undifferentiated schizophrenia F20.3 [facility] [id number] [place] [address] 22400- 7466 Jun, Undifferentiated schizophrenia F20.3 ; Panic disorder without agoraphobia F41.0 ; Chronic posttraumatic stress disorder F43.12 and BMI 50.0-59.9, adult Z68.43 [facility] [id number] [place] [address] 39945- 0579 May, [facility] [id number] [place] [address] 95209- 7661 May, [facility] [id number] [place] [address] 87825- 9123 May, Undifferentiated schizophrenia F20.3 [facility] [id number] [place] [address] 13867- 1219 May, [facility] [id number] [place] [address] 45795- 3522 May, [facility] [id number] [place] [address] 07438- 2915 May, Hypothyroid E03.9 [facility] [id number] [place] [address] 77625- 3404 May, [facility] [id number] [place] [address] 59286- 0411 May, [facility] [id number] [place] [address] 55989- 0717 07 May, 2017 Chronic posttraumatic stress disorder F43.12 ; Panic disorder with agoraphobia F40.01 ; Undifferentiated schizophrenia F20.3 ; BMI 40.0-44.9, adult Z68.41 and Obesity E66.9 [facility] [id number] [place] [address] 23953- 5460 May, Shortness of breath R06.02 [facility] [address] [address]- 0166 May, [facility] [address] [address]- 2747 Apr, Undifferentiated schizophrenia F20.3 [facility] [address] [address] 2886 Apr, [facility] [id number] [place] [address] 20656- 7358 Apr, [facility] [id number] [place] [address] 54119- 0214 Mar, Undifferentiated schizophrenia F20.3 ; Panic disorder without agoraphobia F41.0 and Chronic posttraumatic stress disorder F43.12 [facility] [id number] [place] [address] 22400- 4737 Mar, Undifferentiated schizophrenia F20.3 [facility] [id number] [place] [address] 97515- 6143 Mar, [facility] [id number] [place] [address] 44358- 3433 08 Mar, 2017 [facility] [address] [address]- 7224 Mar, [facility] [address] [id number] [address]- 9571 Jan, Undifferentiated schizophrenia F20.3 [facility] [address] [id number] [address]- 5434 Jan, [facility] [id number] [address]- 1516 Jan, [facility] [address] [id number], [place] [address]- 0192 Jan, [address] [id number] [id number] Dec, Needle stick injury W27.3XXA [facility] [id number] [place] [address] 43617- 5384 Dec, Needle stick injury W27.3XXA [facility] [id number] [place] [address] 81034- 0112 Dec, Undifferentiated schizophrenia F20.3 [facility] [id number] [place] [address] 25822- 7917 Dec, [facility] [id number] [place] [address] 09267- 2537 Dec, [facility] [id number] [place] [address] 45182- 4044 Dec, Undifferentiated schizophrenia F20.3 ; Panic disorder with agoraphobia F40.01 and Chronic posttraumatic stress disorder F43.12 [facility] [id number] [place] [address] 70309- 2798 Dec, [facility] [id number] [place] [address] 86734- 0959 October, [facility] [id number] [place] [address] 40036- 2474 October, Undifferentiated schizophrenia F20.3 [facility] [address] [address]- 4596 October, [facility] [id number] [place] [address] 19766- 9183 October, [facility] [id number] [place] [address] 61346- 7442 Oct, Undifferentiated schizophrenia F20.3 ; Panic disorder with agoraphobia F40.01 ; Chronic posttraumatic stress disorder F43.12 and Obesity E66.9 [facility] [address] [address]- 5993 Oct, [facility] [id number] [place] [address] 74700- 0784 Oct, [facility] [id number] [place] [address] 79851- 9059 Aug, Undifferentiated schizophrenia F20.3 [facility] [id number] [place] [address] 18708- 8131 Aug, [facility] [id number] [place] [address] 49145- 1488 Aug, Muscle spasm M62.838 [facility] [id number] [place] [address] 23617- 5719 Aug, Undifferentiated schizophrenia F20.3 [facility] [id number] [place] [address] 74928- 8357 Aug, Undifferentiated schizophrenia F20.3 ; Panic disorder with agoraphobia F40.01 ; Chronic posttraumatic stress disorder F43.12 ; High risk medication use Z79.899 and Social phobia F40.10 [facility] [id number] [place] [address] 20077- 9531 Aug, Undifferentiated schizophrenia F20.3 [facility] [id number] [place] [address] 88070- 0286 Aug, [facility] [id number] [place] [address] 59583- 4527 14 Aug, 2016 Acute non-recurrent maxillary sinusitis J01.00 [facility] [id number] [place] [address] 74587- 2169 Aug, [facility] [id number] [place] [address] 31560- 6275 Aug, [facility] [id number] [place] [address] 88941- 2540 Jul, Undifferentiated schizophrenia F20.3 [facility] [id number] [place] [address] 47832- 5650 Jul, Schizophrenia, undifferentiated F20.3 ; Social phobia F40.10 ; Post-traumatic stress disorder F43.10 ; Panic disorder F41.0 and Depressive disorder, not elsewhere classified F32.9 [facility] [id number] [place] [address] 13802- 6810 Jul, [facility] [id number] [place] [address] 42002- 1115 Jul, Schizophrenia, undifferentiated F20.3 ; Social phobia F40.10 ; Post-traumatic stress disorder F43.10 ; Panic disorder F41.0 and Depressive disorder, not elsewhere classified F32.9 [facility] [id number] [place] [address] 78837- 8920 Jul, [facility] [id number] [place] [address] 71598- 3686 Jul, Undifferentiated schizophrenia F20.3 ; Panic disorder with agoraphobia F40.01 ; Social phobia F40.10 ; Obesity E66.9 and Chronic posttraumatic stress disorder F43.12 [facility] [id number] [place] [address] 48104- 5299 Jun, [facility] [id number] [place] [address] 20158- 4867 Jun, [facility] [id number] [place] [address] 84530- 9829 Jun, Dental caries K02.9 [facility] [id number] [place] [address] 12163- 1171 Jun, Undifferentiated schizophrenia F20.3 [facility] [id number] [place] [address] 25397- 8019 May, [facility] [id number] [place] [address] 07103- 2987 May, Undifferentiated schizophrenia F20.3 ; Panic disorder with agoraphobia F40.01 and Chronic post-traumatic stress disorder (PTSD) F43.12 [facility] [id number] [place] [address] 81284- 0314 May, [facility] [id number] [place] [address] 28925- 4345 May, Undifferentiated schizophrenia F20.3 [facility] [id number] [place] [address] 19828- 2729 10 May, 2016 [facility] [id number] [place] [address] 10258- 2351 07 May, 2016 Dental examination Z01.20 [facility] [id number] [place] [address] 71038- 3563 Apr, Undifferentiated schizophrenia F20.3 ; PTSD (post-traumatic stress disorder) F43.10 and Obesity E66.9 [facility] [id number] [place] [address] 99095- 4698 18 Apr, 2016 [facility] [address] 88967- 0292 15 Mar, 2016 [facility] [id number] [place] [address] 90963- 1407 Mar, [facility] [address] 26427- 5287 Jan, Shortness of breath R06.02 and Bipolar disorder with psychotic features F31.9 [facility] [id number] [place] [address] 57222- 2641 Jan, [facility] [id number] [place] [address] 68169- 5570 Jan, Increased intracranial pressure G93.2 ; Visual disturbance H53.9 and Bipolar II disorder F31.81 [facility] [id number] [place] [address] 37435- 3028 Jan, [facility] [id number] [place] [address] 24184- 9005 Jan, [facility] [address] 77864- 9958 Jan, [place] [id number] [place] [address] 86784- 7884 Jan, Acquired hypothyroidism E03.9 ; Depression F32.9 and Insomnia G47.00 [place] [id number] [place] [address] 66888- 0583 Jan, Exertional dyspnea R06.09 ; Heart palpitations R00.2 ; Hyperlipidemia, unspecified hyperlipidemia type E78.5 ; Hypothyroidism, unspecified type E03.9 and Hypokalemia E87.6 [place] [address] 00009- 6325 Dec, PTSD (post-traumatic stress disorder) F43.10 ; Depression F32.9 ; Insomnia G47.00 and Bipolar disorder with psychotic features F31.9 [place] [id number] [place] [address] 10197- 2333 Dec, Increased intracranial pressure G93.2 [place] [id number] [place] [address] 49939- 9465 Dec, [place] [address] 06706- 4240 Dec, Shortness of breath R06.02 [place] [id number] [place] [address] 71452- 7595 Dec, Visual disturbance H53.9 and Headache, unspecified headache type R51 [place] [id number] [place] [address] 68940- 3338 Dec, Insomnia G47.00 [place] [address] 25529- 2948 Dec, Murmur R01.1 [place] [id number] [place] [address] 65115- 9672 Dec, Murmur R01.1 ; Tunnel vision, unspecified laterality H53.489 ; Orthostatic hypertension I10 ; Shortness of breath R06.02 and Tachycardia R00.0 [facility] [id number] [place] [address] 09322- 3872 Dec, [facility] [id number] [place] [address] 39557- 4939 Dec, Hypothyroid E03.9 and Bipolar 1 disorder F31.9 [facility] [id number] [place] [address] 01314- 0884 Dec, Bipolar 1 disorder F31.9 [facility] [id number] [place] [address] 15515- 5618 Dec, [facility] [id number] [place] [address] 94872- 7056 October, Acquired hypothyroidism E03.9 ; Depression F32.9 and Insomnia G47.00 [facility] [id number] [place] [address] 08538- 8813 October, [facility] [id number] [place] [address] 25918- 5360 October, Bipolar 1 disorder F31.9 ; PTSD (post-traumatic stress disorder) F43.10 and Social phobia F40.10 [facility] [id number] [place] [address] 91404- 1279 Oct, Bipolar 1 disorder F31.9 and Insomnia G47.00 [facility] [id number] [place] [address] 26533- 7867 Oct, [facility] [id number] [place] [address] 55219- 4847 Oct, [facility] [id number] [place] [address] 57438- 1034 Aug, Hypothyroid E03.9 [facility] [id number] [place] [address] 65372- 1595 Aug, Encounter for therapeutic drug level monitoring Z51.81 and Other perforator typist (current) drug therapy Z79.899 [facility] [id number] [place] [address] 00495- 1386 17 Sep, 2015 Encounter for therapeutic drug level monitoring Z51.81 [facility] [address] 68446- 8172 Aug, Acquired hypothyroidism E03.9 ; Leg pain M79.606 and Bipolar 1 disorder F31.9 [facility] [address] 67930- 5996 Aug, [facility] [address] 02776- 7490 Aug, [facility] [address] 48722- 4742 Jul, Thyroid disorder E07.9 [facility] [address] 36518- 8086 Jul, Rash R21 ; Abnormal LFTs R94.5 ; Acquired hypothyroidism E03.9 ; Sleep apnea in adult G47.33 and Fatty liver K76.0 [facility] [id number] [place] [address] 78289- 1124 Jun, [facility] [id number] [place] [address] 64653- 2054 Jun, [facility] [id number] [place] [address] 87637- 5450 Jun, Bipolar II disorder F31.81 and Social phobia, generalized F40.11 [facility] [id number] [place] [address] 35907- 8744 Mar, Bipolar II disorder 296.89 and Social phobia 300.23 [facility] [address] 47327- 3798 Dec, [facility] [address] 32814- 1910 Dec, [facility] [address] [place] [address]- 8072 Dec, Bipolar II disorder in partial or unspecified remission 296.89 and Social phobia, generalized 300.23 [facility] [id number] [place] [address] 75722- 6954 30 Oct, 2014 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 [facility] [id number] [place] [address] 03779- 8688 14 Oct, 2014 [facility] [id number] [place] [address] 75207- 6111 Oct, [facility] [id number] [place] [address] 71175- 0404 Aug, [facility] [id number] [place] [address] 46499- 0046 Aug, [facility] [id number] [place] [address] 53927- 1992 Aug, [facility] [address] [id number] [address]- 3370 Aug, [facility] [id number] [place] [address]- [address] Aug, [facility] [id number] [address] Aug, [facility] [id number] [address] Aug, [facility] [id number] [address] Aug, [facility] [address] [id number] [address] Jul, [facility] [address] [id number] [address] Jul, [facility] [id number] [address] Jul, [facility] [place] [facility] [address] [id number] [place] [address] Jul, [facility] [place] [facility] [address] [id number] [place] [address] Jul, [facility] [place] [facility] [address] [id number] [place] [address] Jul, [facility] [place] [facility] [address] [id number] [place] [address] Jun, [facility] [place] [facility] [address] [id number] [place] [address] Jun, [facility] [place] [facility] [address] [id number] [place] [address] Jun, [facility] [place] [facility] [address] [id number] [place] [address] Jun, [facility] [place] [facility] [address] [id number] [place] [address] Jun, [facility] [place] [facility] [address] [id number] [place] [address] Jun, [facility] [place] [facility] [address] [id number] [place] [address] Jun, [facility] [place] [facility] [address] [id number] [place] [address] Jun, [facility] [place] [facility] [address] [id number] [place] [address] Jun, [facility] [place] [facility] [address] [address] [id number] [place] [address] Jun, [facility] [place] [facility] [address] [id number] [place] [address] Jun, [facility] [place] [facility] [address] [id number] [place] [address] Jun, [facility] [place] [facility] [address] [id number] [place] [address] Jun, [facility] [place] [facility] [address] [id number] [place] [address] 269[address] Jun, [facility] [place] [facility] [address] [id number] [place] [address] 2768 Jun, [facility] [place] [facility] [address] [facility] [id number] [place] [address] 1764 Jun, [facility] [place] [facility] [address] [id number] [place] [address]179 May, [facility] [place] [facility] [address] [id number] [place] [address]339 May, [facility] [place] [facility] [address] [id number], [place] [address] May, [facility] [place] [facility] [address] [id number], [place] [address] May, [facility] [place] [facility] [address] [id number], [place] [address] May, [facility] [place] [facility] [address] [id number], [place] [address] 34[address] May, [facility] [place] [facility] [address] [id number], [place] [address] Apr, [facility] [place] [facility] [address] [id number], [place] [address] Apr, [facility] [place] [facility] [address] [id number], [place] [address] 9084 Apr, [facility] [place] [facility] [address] [id number], [place] [address] Apr, [facility] [place] [facility] [address] [id number], [place] [address] 7912 Apr, [facility] [place] [facility] [address] [id number], [place] [address] 9[address] Apr, [facility] [place] [facility] [address] [id number] [place] [address] 6435 Mar, [facility] [place] [facility] [address] [id number] [place] [address]- 4651 Mar, [facility] [place] [facility] [address] [id number] [place] [address]- 1294 Mar, [facility] [place] [facility] [address] [id number] [place] [address]- 5348 Mar, [facility] [place] [facility] [address] [id number] [place] [address]- 7763 Jan, [facility] [place] [facility] [address] [id number] [place] [address]- 1103 Jan, [facility] [place] [facility] [address] [id number] [place] [address]- 7115 Jan, [facility] [place] [facility] [address] [id number] [place] [address]- 0962 Jan, [facility] [place] [facility] [address] [id number] [place] [address] 7834 Jan, [facility] [place] [facility] [address] [id number] [place] [address]- 2341 Jan, [facility] [place] [facility] [address] [id number] [place] [address] 7179 Dec, [facility] [place] [facility] [address] [id number] [place] [address]- 5463 Dec, [facility] [place] [facility] [address] [id number] [place] [address]- 0699 Dec, [facility] [place] [facility] [address] [id number] [place] [address]- 2099 Dec, [facility] [place] [facility] [address] [id number] [place] [address]- 8819 Dec, [facility] [place] [facility] [address] [id number] [place] [address]- 7667 Dec, [facility] [place] [facility] [address] [id number] [place] [address]- 8966 October, [facility] [place] [facility] [address] [id number] [place] [address]- 2068 October, [facility] [place] [facility] [address] [id number] [place] [address] 9167 October, [facility] [place] [facility] [address] [id number] [place] [address]- 8725 October, [facility] [place] [facility] [address] [id number] [place] [address]- 2844 October, [facility] [place] [facility] [address] [id number] [place] [address]- 8123 October, [facility] [place] [facility] [address] [id number] [place] [address]- 5628 October, [facility] [place] [facility] [address] [id number] [place] [address]- 3486 October, [facility] [place] [facility] [address] [id number] [place] [address]- 7034 Oct, [facility] [place] [facility] [address] [id number] [place] [address]- 1711 Oct, [facility] [place] [facility] [address] [id number] [place] [address]- 5563 Oct, [facility] [place] [facility] [address] [id number] [place] [address]- 5288 Oct, [facility] [place] [facility] [address] [id number] [place] [address]- 0424 Oct, [facility] [place] [facility] [address] [id number] [place] [address]- 0254 Aug, [facility] [place] [facility] [address] [id number] [place] [address]- 9426 Aug, [facility] [place] [facility] [address] [id number] [place] [address]- 3594 Aug, [facility] [address] [id number] [place] [address]- 7568 Aug, [facility] [place] [facility] [address] [id number] [place] [address]- [address]290 07 Aug, 2013 [facility] [place] [facility] [address] [id number] [place] [address]- 2816 Aug, [facility] [place] [facility] [address] [id number] [place] [address]- 8265 Jul, [facility] [place] [facility] [address] [id number] [place] [address]- 3990 Jul, [facility] [place] [facility] [address] [id number] [place] [address]- 3498 Jul, [facility] [address] [id number] [place] [address]- 7037 Jul, [facility] [place] [facility] [address] [id number] [place] [address]- 4173 Jul, [facility] [address] [id number] [place] [address]- 6205 Jul, [facility] [address] [facility] [id number] [place] [address]- 2495 Jun, [facility] [place] [facility] [address] [id number] [place] [address]- 0570 Jun, [facility] [place] [facility] [address] [id number] [place] [address]- 3292 Jun, [facility] [place] [facility] [address] [id number] [place] [address]- 1298 Jun, [facility] [place] [facility] [address] [id number] [place] [address]- 2053 Jun, [facility] [place] [facility] [address] [facility] [id number] [place] [address]- 3389 Jun, [facility] [place] [facility] [address] [id number] [place] [address]- 4104 May, [facility] [place] [facility] [address] [id number] [place] [address]- 8472 May, [facility] [place] [facility] [address] [id number] [place] [address]- 3323 Apr, [facility] [place] [facility] [address] [id number] [place] [address]- 4708 Apr, [facility] [place] [facility] [address] [id number] [place] [address]- 2550 Apr, [facility] [place] [facility] [address] [id number] [place] [address]- 5848 Apr, [facility] [place] [facility] [address] [id number] [place] [address]- 7597 Apr, [facility] [place] [facility] [address] [id number] [place] [address]- 8802 Apr, [facility] [place] [facility] [address] [id number] [place] [address]- 3656 Apr, [facility] [place] [facility] [address] [id number] [place] [address]- 7926 Apr, [facility] [place] [facility] [address] [id number] [place] [address]- 6513 Apr, [facility] [place] [facility] [address] [id number] [place] [address]- 9851 Apr, [facility] [place] [facility] [address] [id number] [place] [address]- 2136 Apr, [facility] [place] [facility] [address] [id number] [place] [address]- 6564 Mar, [facility] [place] [facility] [address] [id number] [place] [address]- 7984 Mar, [facility] [place] [facility] [address] [id number] [place] [address]- 9242 20 Mar, 2013 [facility] [place] [facility] [address] [id number] [place] [address]- 5404 14 Mar, 2013 [facility] [place] [facility] [address] [id number] [place] [address]- 3371 Mar, [facility] [place] [facility] [address] [id number] [place] [address]- 4203 Mar, [facility] [place] [facility] [address] [id number] [place] [address]- 6618 Mar, [facility] [place] [facility] [address] [id number] [place] [address]- 4293 Jan, [facility] [place] [facility] [address] [id number] [place] [address]- 2740 Jan, [facility] [place] [facility] [address] [id number] [place] [address]- 0984 Jan, [facility] [place] [facility] [address] [id number] [place] [address]- 2333 Jan, [facility] [place] [facility] [address] [id number] [place] [address]- 7029 Jan, [facility] [place] [facility] [address] [id number] [place] [address]- 0586 Jan, [facility] [place] [facility] [address] [id number] [place] [address]- 9018 Jan, [facility] [place] [facility] [address] [id number] [place] [address]- 6853 Dec, [facility] [place] [facility] [address] [id number] [place] [address]- 3152 Dec, [facility] [place] [facility] [address] [id number] [place] [address]- 0369 Dec, [facility] [place] [facility] [address] [id number] [place] [address]- 9695 Dec, [facility] [place] [facility] [address] [id number] [place] [address]- 1157 08 Dec, 2012 [facility] [address] [id number] [place] [address]- 5886 Dec, [facility] [address] [id number] [place] [address]- 4586 October, [facility] [address] [id number] [place] [address]- 2205 October, [facility] [address] [id number] [place] [address]- 3973 October, [facility] [address] [id number] [place] [address]- 0497 October, [facility] [address] [id number] [place] [address]- 3347 Oct, [facility] [address] [id number] [place] [address]- 6380 Oct, [facility] [address] [id number] [place] [address]- 0915 Aug, [facility] [address] [id number] [place] [address]- 4161 Aug, [facility] [address] [id number] [place] [address]- 7974 Aug, [facility] [address] [id number] [place] [address]- 0091 Aug, [facility] [address] [id number] [place] [address]- 7612 18 Aug, 2012 [facility] [address] [id number] [place] [address]- 6351 Aug, [facility] [address] [id number] [place] [address]- 5911 Aug, [facility] [address] [id number] [place] [address]- 7537 Aug, [facility] [address] [id number] [place] [address]- 9976 Aug, [facility] [place] [facility] [address] [id number] [place] [address]- 8126 Aug, [facility] [place] [facility] [address] [id number] [place] [address]- 9106 Aug, [facility] [place] [facility] [address] [id number] [place] [address]- 0436 Aug, [facility] [address] [id number] [place] [address]- 8806 Aug, [facility] [place] [facility] [address] [id number] [place] [address]- 3096 Aug, [facility] [address] [id number] [place] [address]- 3166 Jul, [facility] [place] [facility] [address] [id number] [place] [address]- 9332 Jul, [facility] [address] [id number] [place] [address]- 9957 Jul, [facility] [place] [facility] [address] [facility] [id number] [place] [address]- 3776 Jul, [facility] [place] [facility] [address] [id number] [place] [address]- 5070 Jun, [facility] [place] [facility] [address] [id number] [place] [address] 2546 Jun, [facility] [place] [facility] [address] [id number] [place] [address] 2546 Jun, [facility] [place] [facility] [address] [facility] [id number] [place] [address]- 5826 Jun, [facility] [place] [facility] [address] [facility] [id number] [place] [address] 2546 May, [facility] [place] [facility] [address] [facility] [id number] [place] [address]- 7719 May, IMMUNIZATIONS No Known Immunizations SOCIAL HISTORY Never Assessed REASON FOR VISIT Repository med PLAN OF CARE VITAL SIGNS MEDICATIONS Medication Instructions Dosage Frequency Start Date End Date Duration Status Neurontin 400 MG Orally 2 times a day 2 capsules 12h Aug, 60 days Active Phenix Carbonate 300 MG Orally 2 times a day 1 tablet in the morning, 2 tablets at bedtime 12h 90 days Active RESULTS No Results PROCEDURES [...]
--- OUTSIDE RECORDS SUMMARY | 2018-09-02 18:17 | XMS REPORT ---
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 Name Role Phone AMARI HOWARD Unavailable PROBLEMS Type Condition ICD9-CM Code HTA10-ED Code Onset Dates Condition Status SNOMED Code Problem Undifferentiated schizophrenia F20.3 Active 317107409 Problem Chronic posttraumatic stress disorder F43.12 Active 050226891 Problem Panic disorder with agoraphobia F40.01 Active 95237599 Problem Other chronic pain G89.29 Active 92597602 Problem Fatty liver K76.0 Active 612487031 Problem Hypothyroid E03.9 Active 16485410 Problem Abuse, drug or alcohol F19.10 Active 45568381 Problem Sleep apnea in adult G47.33 Active 04234859 Problem Panic disorder F41.0 Active 914314037 Problem Depressive disorder, not elsewhere classified F32.9 Active 02010721 Problem BMI 50.0-59.9, adult Z68.43 Active 240071349 Problem Panic disorder without agoraphobia F41.0 Active 75945168 Problem Social phobia F40.10 Active 58761868 Problem Restless legs syndrome G25.81 Active 793191975 Problem Obesity E66.9 Active 533591512 Problem Neuropathy G62.9 Active 510893164 Problem Tunnel vision, unspecified laterality H53.489 Active 141837577 Problem Tachycardia R00.0 Active 8183443 Problem Encounter for therapeutic drug level monitoring Z51.81 Active 868782967 Problem Murmur R01.1 Active 437395415 Problem Orthostatic hypertension I10 Active 29670000 Problem Shortness of breath R06.02 Active 114580846 ALLERGIES No Information ENCOUNTERS Encounter Location Date Diagnosis [facility] [address] [facility] [id number] [address] Dec, [facility] [address] [facility] [id number] [place] [address] 70136- 1417 Dec, [facility] [id number] [place] [address] 58147- 8690 Dec, [facility] [id number] [place] [address] 77024- 3528 Dec, Undifferentiated schizophrenia F20.3 [facility] [id number] [place] [address] 60907- 6379 Dec, [facility] [id number] [place] [address] 46906- 9722 Dec, [facility] [id number] [place] [address] 48388- 2343 Dec, BMI 50.0-59.9, adult Z68.43 ; Undifferentiated schizophrenia F20.3 ; Panic disorder without agoraphobia F41.0 and Chronic posttraumatic stress disorder F43.12 [facility] [id number] [place] [address] 29971- 5821 Dec, [facility] [id number] [place] [address] 13908- 6068 October, [facility] [id number] [place] [address] 63215- 8228 October, Pain in right shoulder M25.511 and Other chronic pain G89.29 [facility] [id number] [place] [address] 00163- 2658 October, Hypothyroid E03.9 [facility] [id number] [place] [address] 44812- 4962 Oct, Undifferentiated schizophrenia F20.3 [facility] [id number] [place] [address] 19214- 2825 Oct, [facility] [id number] [place] [address] 45831- 4705 Oct, [facility] [id number] [place] [address] 48719- 7468 Aug, Undifferentiated schizophrenia F20.3 [facility] [address], [place] [address] 3441 Aug, [facility] [id number] [place] [address] 02771- 2747 Aug, Undifferentiated schizophrenia F20.3 ; Panic disorder with agoraphobia F40.01 ; Chronic posttraumatic stress disorder F43.12 and BMI 50.0- 59.9, adult Z68.43 [facility] [id number] [place] [address] 54953- 9400 05 Aug, 2017 [facility] [id number] [place] [address] 22672- 5985 Aug, [facility] [id number] [place] [address] 96856- 7228 Aug, Undifferentiated schizophrenia F20.3 [facility] [id number] [place] [address] 29864- 2430 Aug, Hypothyroid E03.9 [facility] [id number] [place] [address] 55562- 4513 Jul, Undifferentiated schizophrenia F20.3 [facility] [id number] [place] [address] 97789- 9466 Jul, [facility] [id number] [place] [address] 29583- 7715 Jul, Undifferentiated schizophrenia F20.3 ; Chronic posttraumatic stress disorder F43.12 ; Panic disorder with agoraphobia F40.01 and BMI 50.0-59.9, adult Z68.43 [facility] [id number] [place] [address] 78832- 8431 Jul, [facility] [id number] [place] [address] 05838- 6940 Jul, Acute pain of right shoulder M25.511 ; High risk medication use Z79.899 ; Needle stick injury W27.3XXA ; Hypothyroid E03.9 and BMI 50.0-59.9 , adult Z68.43 [facility] [id number] [place] [address] 68522- 3771 Jun, Undifferentiated schizophrenia F20.3 [facility] [id number] [place] [address] 26300- 5407 14 Jun, 2017 Undifferentiated schizophrenia F20.3 ; Panic disorder without agoraphobia F41.0 ; Chronic posttraumatic stress disorder F43.12 and BMI 50.0-59.9, adult Z68.43 [facility] [id number] [place] [address] 69338- 9553 May, [facility] [id number] [place] [address] 34615- 2155 May, [facility] [id number] [place] [address] 49900- 3800 May, Undifferentiated schizophrenia F20.3 [facility] [id number] [place] [address] 43517- 3980 May, [facility] [id number] [place] [address] 27997- 1753 May, [facility] [id number] [place] [address] 08932- 5810 May, Hypothyroid E03.9 [facility] [id number] [place] [address] 48392- 7941 13 May, 2017 [facility] [id number] [place] [address] 58077- 3765 10 May, 2017 [facility] [id number] [place] [address] 94442- 4212 07 May, 2017 Chronic posttraumatic stress disorder F43.12 ; Panic disorder with agoraphobia F40.01 ; Undifferentiated schizophrenia F20.3 ; BMI 40.0-44.9, adult Z68.41 and Obesity E66.9 [facility] [id number] [place] [address] 93377- 1534 May, Shortness of breath R06.02 [facility] [id number] [place] [address] 88098- 1221 May, [facility] [id number] [place] [address] 27625- 0063 Apr, Undifferentiated schizophrenia F20.3 [facility] [id number] [place] [address] 05982- 7164 Apr, [facility] [id number] [place] [address] 94775- 5574 Apr, [facility] [id number] [place] [address] 28420- 0493 Mar, Undifferentiated schizophrenia F20.3 ; Panic disorder without agoraphobia F41.0 and Chronic posttraumatic stress disorder F43.12 [facility] [id number] [place] [address] 19515- 4190 Mar, Undifferentiated schizophrenia F20.3 [facility] [id number] [place] [address] 87697- 5182 18 Mar, 2017 [facility] [id number] [place] [address] 87332- 5330 08 Mar, 2017 [facility] [id number] [place] [address] 94690- 3035 Mar, [facility] [id number] [place] [address] 72552- 7108 Jan, Undifferentiated schizophrenia F20.3 [facility] [address], [place] [address]- 9737 Jan, [facility] [id number] [place] [address] 87667- 6108 Jan, [facility] [address], [place] [address]- 6003 Jan, [id number] [id number] Dec, Needle stick injury W27.3XXA [facility] [id number] [place] [address] 46184- 8561 Dec, Needle stick injury W27.3XXA [facility] [id number] [place] [address] 37778- 0074 Dec, Undifferentiated schizophrenia F20.3 [facility] [id number] [place] [address] 89544- 8845 Dec, [facility] [id number] [place] [address] 83005- 5172 Dec, [facility] [id number] [place] [address] 81476- 8694 Dec, Undifferentiated schizophrenia F20.3 ; Panic disorder with agoraphobia F40.01 and Chronic posttraumatic stress disorder F43.12 [facility] [id number] [place] [address] 29488- 7225 Dec, [facility] [id number] [place] [address] 23386- 7529 October, [facility] [id number] [place] [address] 93970- 8788 October, Undifferentiated schizophrenia F20.3 [facility] [id number] [place] [address] 86889- 3164 October, [facility] [id number] [place] [address] 05241- 2515 October, [facility] [id number] [place] [address] 63401- 8912 Oct, Undifferentiated schizophrenia F20.3 ; Panic disorder with agoraphobia F40.01 ; Chronic posttraumatic stress disorder F43.12 and Obesity E66.9 [facility] [id number] [place] [address] 39008- 9189 Oct, [facility] [id number] [place] [address] 01534- 1996 Oct, [facility] [address], [place] [address]- 8340 Aug, Undifferentiated schizophrenia F20.3 [facility] [address], [place] [address]- 0395 Aug, [facility] [id number] [place] [address] 92213- 6881 Aug, Muscle spasm M62.838 [facility] [id number] [place] [address] 95643- 0027 Aug, Undifferentiated schizophrenia F20.3 [facility] [id number] [place] [address] 11332- 2003 Aug, Undifferentiated schizophrenia F20.3 ; Panic disorder with agoraphobia F40.01 ; Chronic posttraumatic stress disorder F43.12 ; High risk medication use Z79.899 and Social phobia F40.10 [facility] [id number] [place] [address] 02276- 3963 Aug, Undifferentiated schizophrenia F20.3 [facility] [id number] [place] [address] 54891- 7450 Aug, [facility] [id number] [place] [address] 52121- 2726 14 Aug, 2016 Acute non-recurrent maxillary sinusitis J01.00 [facility] [id number] [place] [address] 80945- 6268 Aug, [facility] [id number] [place] [address] 49134- 9984 Aug, [facility] [id number] [place] [address] 30693- 7648 Jul, Undifferentiated schizophrenia F20.3 [facility] [address] [address]- 1098 Jul, Schizophrenia, undifferentiated F20.3 ; Social phobia F40.10 ; Post-traumatic stress disorder F43.10 ; Panic disorder F41.0 and Depressive disorder, not elsewhere classified F32.9 [facility] [id number] [place] [address] 81830- 1468 Jul, [facility] [id number] [place] [address] 74217- 2803 Jul, Schizophrenia, undifferentiated F20.3 ; Social phobia F40.10 ; Post-traumatic stress disorder F43.10 ; Panic disorder F41.0 and Depressive disorder, not elsewhere classified F32.9 [facility] [id number] [place] [address] 92594- 7579 Jul, [facility] [id number] [place] [address] 54247- 7567 Jul, Undifferentiated schizophrenia F20.3 ; Panic disorder with agoraphobia F40.01 ; Social phobia F40.10 ; Obesity E66.9 and Chronic posttraumatic stress disorder F43.12 [facility] [id number] [place] [address] 95710- 6707 Jun, [facility] [id number] [place] [address] 35576- 4228 Jun, [facility] [id number] [place] [address] 66716- 4670 Jun, Dental caries K02.9 [facility] [id number] [place] [address] 91248- 8860 Jun, Undifferentiated schizophrenia F20.3 [facility] [id number] [place] [address] 05127- 9747 May, [facility] [id number] [place] [address] 28930- 3722 May, Undifferentiated schizophrenia F20.3 ; Panic disorder with agoraphobia F40.01 and Chronic post-traumatic stress disorder (PTSD) F43.12 [facility] [id number] [place] [address] 58333- 6119 May, [facility] [id number] [place] [address] 55907- 0266 May, Undifferentiated schizophrenia F20.3 [facility] [id number] [place] [address] 93421- 3931 10 May, 2016 [facility] [id number] [place] [address] 53086- 8064 07 May, 2016 Dental examination Z01.20 [facility] [id number] [place] [address] 42353- 8510 Apr, Undifferentiated schizophrenia F20.3 ; PTSD (post-traumatic stress disorder) F43.10 and Obesity E66.9 [facility] [id number] [place] [address] 83334- 3415 Apr, [facility] [id number] [place] [address] 69366- 7667 Mar, [facility] [id number] [place] [address] 59824- 8192 Mar, [facility] [id number] [place] [address] 18026- 7427 Jan, Shortness of breath R06.02 and Bipolar disorder with psychotic features F31.9 [facility] [id number] [place] [address] 03708- 9558 Jan, [facility] [id number] [place] [address] 86312- 3004 Jan, Increased intracranial pressure G93.2 ; Visual disturbance H53.9 and Bipolar II disorder F31.81 [facility] [id number] [place] [address] 38495- 7081 Jan, [facility] [id number] [place] [address] 43808- 2114 Jan, [facility] [id number] [place] [address] 27257- 7594 Jan, [address] [id number] [place] [address] 35084- 1658 Jan, Acquired hypothyroidism E03.9 ; Depression F32.9 and Insomnia G47.00 [place] [id number] [place] [address] 24141- 2235 Jan, Exertional dyspnea R06.09 ; Heart palpitations R00.2 ; Hyperlipidemia, unspecified hyperlipidemia type E78.5 ; Hypothyroidism, unspecified type E03.9 and Hypokalemia E87.6 [place] [address] 23712- 3223 Dec, PTSD (post-traumatic stress disorder) F43.10 ; Depression F32.9 ; Insomnia G47.00 and Bipolar disorder with psychotic features F31.9 [place] [address] 33056- 5533 Dec, Increased intracranial pressure G93.2 [place] [address] 71624- 0450 Dec, [place] [address] 74520- 6981 Dec, Shortness of breath R06.02 [facility] [id number] [place] [address] 12265- 3420 Dec, Visual disturbance H53.9 and Headache, unspecified headache type R51 [place] [address] 91168- 5067 Dec, Insomnia G47.00 [place] [address] 84825- 0985 Dec, Murmur R01.1 [place] [address] 83122- 7049 Dec, Murmur R01.1 ; Tunnel vision, unspecified laterality H53.489 ; Orthostatic hypertension I10 ; Shortness of breath R06.02 and Tachycardia R00.0 [facility] [id number] [place] [address] 49684- 0238 Dec, [facility] [address] 62479- 8538 Dec, Hypothyroid E03.9 and Bipolar 1 disorder F31.9 [place] [id number] [place] [address] 64191- 4367 Dec, Bipolar 1 disorder F31.9 [facility] [address] 32811- 3910 Dec, [place] [address] 01649- 8366 October, Acquired hypothyroidism E03.9 ; Depression F32.9 and Insomnia G47.00 [place] [facility] [id number] [place] [address] 96607- 3505 October, [place] [id number] [place] [address] 19084- 0474 October, Bipolar 1 disorder F31.9 ; PTSD (post-traumatic stress disorder) F43.10 and Social phobia F40.10 [facility] [id number] [place] [address] 52734- 4654 Oct, Bipolar 1 disorder F31.9 and Insomnia G47.00 [place] [id number] [place] [address] 82488- 8665 Oct, [facility] [id number] [place] [address] 89974- 2483 Oct, [place] [id number] [place] [address] 14499- 4445 Aug, Hypothyroid E03.9 [facility] [id number] [place] [address] 76892- 5300 Aug, Encounter for therapeutic drug level monitoring Z51.81 and 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 [place] [id number] [place] [address] 33447- 9342 17 Sep, 2015 Encounter for therapeutic drug level monitoring Z51.81 [facility] [address] 09817- 3972 Aug, Acquired hypothyroidism E03.9 ; Leg pain M79.606 and Bipolar 1 disorder F31.9 [facility] [address] 50223- 6032 Aug, [facility] [address] 34771- 3927 Aug, [facility] [address] 17386- 3579 Jul, Thyroid disorder E07.9 [facility] [address] 94038- 3223 Jul, Rash R21 ; Abnormal LFTs R94.5 ; Acquired hypothyroidism E03.9 ; Sleep apnea in adult G47.33 and Fatty liver K76.0 [facility] [address] 39685- 1936 Jun, [facility] [address] 56814- 4793 Jun, [facility] [id number] [place] [address] 01041- 2433 Jun, Bipolar II disorder F31.81 and Social phobia, generalized F40.11 [facility] [id number] [place] [address] 36297- 7473 Mar, Bipolar II disorder 296.89 and Social phobia 300.23 [facility] [address] 49707- 3429 Dec, [facility] [address] 52363- 0037 Dec, [facility] [address] 76225- 3179 Dec, Bipolar II disorder in partial or unspecified remission 296.89 and Social phobia, generalized 300.23 [facility] [id number] 4893 Oct, 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 [facility] [address], [place] [address]- 8419 Oct, [facility] [id number] 1005 Oct, [facility] [address] [address]- 9916 Aug, [facility] [address]- 9261 Aug, [facility] [address] [address]- 0609 Aug, [facility] [address], [place] [address]- 7136 Aug, [facility] [address], [place] [address]- 0272 Aug, [facility] [address] [address]- 7477 Aug, [facility] [address] [address]- 4147 Aug, [facility] [address] [address]- 8806 Aug, [facility] [address]- 4016 Jul, [facility] [address] 6667 Jul, [facility] [address]- 0750 Jul, [facility] [place] [facility] [address] [facility] [id number] [place] [address]- 1122 Jul, [facility] [address] [id number] [place] [address]- 3423 Jul, [facility] [place] [facility] [address] [id number] [place] [address]- 2080 Jul, [facility] [address] [id number] [place] [address]- 4401 Jun, [facility] [place] [facility] [address] [id number] [place] [address]- 5264 Jun, [facility] [place] [facility] [address] [id number] [place] 7049 Jun, [facility] [place] [facility] [address] [id number] [place] [address]- 3953 Jun, [facility] [place] [facility] [address] [id number] [place] [address] Jun, [facility] [address] [id number] [place] [address] Jun, [facility] [place] [facility] [address] [id number] [place] [address] Jun, [facility] [place] [facility] [address] [id number] [place] [address] Jun, [facility] [place] [facility] [address] [id number] [place] [address] Jun, [facility] [place] [facility] [address] [id number] [place] [address] Jun, [facility] [place] [facility] [address] [id number] [place] [address] Jun, [facility] [place] [facility] [address] [id number] [place] [address] Jun, [facility] [place] [facility] [address] [id number] [place] [address] Jun, [facility] [place] [facility] [address] [id number] [place] [address] Jun, [facility] [place] [facility] [address] [id number] [place] [address] Jun, [facility] [place] [facility] [address] [id number] [place] [address] Jun, [facility] [place] [facility] [address] [id number] [place] [address] May, [facility] [place] [facility] [address] [id number] [place] [address] May, [facility] [place] [facility] [address] [id number] [place] [address] May, [facility] [place] [facility] [address] [id number] [place] [address] May, [facility] [place] [facility] [address] [id number], [place] [address] May, [facility] [place] [facility] [address] [id number] [place] [address] May, [facility] [place] [facility] [address] [id number], [place] [address] Apr, [facility] [place] [facility] [address] [id number], [place] [address] Apr, [facility] [place] [facility] [address] [id number], [place] [address] Apr, [facility] [place] [facility] [address] [id number], [place] [address] Apr, [facility] [place] [facility] [address] [id number], [place] [address] Apr, [facility] [place] [facility] [address] [id number], [place] [address] Apr, [facility] [place] [facility] [address] [id number] [place] [address] Mar, [facility] [place] [facility] [address] [id number] [place] [address] Mar, [facility] [place] [facility] [address] [id number] [place] [address] Mar, [facility] [place] [facility] [address] [id number] [place] [address] 2360 Mar, [facility] [place] [facility] [address] [id number] [place] [address] Jan, [facility] [place] [facility] [address] [id number] [place] [address]- 6[address] Jan, [facility] [place] [facility] [address] [id number] [place] [address]- 27[address] Jan, [facility] [place] [facility] [address] [id number] [place] [address] Jan, [facility] [place] [facility] [address] [id number] [place] [address] 8711 Jan, [facility] [place] [facility] [address] [id number] [place] [address] 59[address] Jan, [facility] [place] [facility] [address] [id number] [place] [address] 8637 Dec, [facility] [place] [facility] [address] [id number] [place] [address]- 1569 Dec, [facility] [place] [facility] [address] [id number] [place] [address]- 4528 Dec, [facility] [place] [facility] [address] [id number] [place] [address]- 6317 Dec, [facility] [place] [facility] [address] [id number] [place] [address]- 6327 Dec, [facility] [place] [facility] [address] [id number] [place] [address]- 0817 Dec, [facility] [place] [facility] [address] [id number] [place] [address] 7972 October, [facility] [place] [facility] [address] [id number] [place] [address]- 30[address] October, [facility] [place] [facility] [address] [id number] [place] [address] 7962 October, [facility] [place] [facility] [address] [id number] [place] [address]- 0573 October, [facility] [place] [facility] [address] [id number] [place] [address] October, [facility] [place] [facility] [address] [id number] [place] [address]- 7879 October, [facility] [place] [facility] [address] [id number] [place] [address]- 3258 October, [facility] [place] [facility] [address] [id number] [place] [address] October, [facility] [place] [facility] [address] [id number] [place] [address] 2622 Oct, [facility] [place] [facility] [address] [id number] [place] [address] 2891 Oct, [facility] [place] [facility] [address] [id number] [place] [address] 1080 Oct, [facility] [place] [facility] [address] [id number] [place] [address]- 6029 Oct, [facility] [place] [facility] [address] [id number] [place] [address] Oct, [facility] [place] [facility] [address] [id number] [place] [address]- 0222 Aug, [facility] [place] [facility] [address] [id number] [place] [address]- 4874 Aug, [facility] [place] [facility] [address] [id number] [place] [address]- 7654 Aug, [facility] [address] [id number] [place] [address] 3767 Aug, [facility] [place] [facility] [address] [id number] [place] [address] Aug, [facility] [place] [facility] [address] [id number] [place] [address]- 0219 Aug, [facility] [place] [facility] [address] [id number] [place] [address]- 1610 Jul, [facility] [place] [facility] [address] [id number] [place] [address]- 2733 Jul, [facility] [address] [id number] [place] [address]- 2187 Jul, [facility] [address] [id number] [place] [address]- 7831 Jul, [facility] [place] [facility] [address] [id number] [place] [address]- 8244 Jul, [facility] [address] [id number] [place] [address]- 6785 Jul, [facility] [address] [id number] [place] [address]- 3127 Jun, [facility] [address] [id number], [place] [address] Jun, [facility] [place] [facility] [address] [id number], [place] [address]- 67[address] Jun, [facility] [place] [facility] [address] [id number] [place] [address]- 4156 Jun, [facility] [place] [facility] [address] [id number] [place] [address]- 8031 Jun, [facility] [place] [facility] [address] [id number] [place] [address]- 6188 Jun, [facility] [place] [facility] [address] [id number] [place] [address]- 4421 May, [facility] [place] [facility] [address] [id number] [place] [address]- 8987 May, [facility] [place] [facility] [address] [id number] [place] [address]- 1891 Apr, [facility] [place] [facility] [address] [id number] [place] [address]- 6434 Apr, [facility] [place] [facility] [address] [id number] [place] [address]- 5353 Apr, [facility] [place] [facility] [address] [id number] [place] [address]- 8109 Apr, [facility] [place] [facility] [address] [id number] [place] [address]- 8975 Apr, [facility] [place] [facility] [address] [id number] [place] [address]- 2482 Apr, [facility] [place] [facility] [address] [id number] [place] [address]- 6058 Apr, [facility] [place] [facility] [address] [id number] [place] [address]- 6646 Apr, [facility] [place] [facility] [address] [id number] [place] [address]- 7998 Apr, [facility] [place] [facility] [address] [id number] [place] [address]- 7340 Apr, [facility] [place] [facility] [address] [id number] [place] [address]- 6567 Apr, [facility] [place] [facility] [address] [id number] [place] [address]- 2456 Mar, [facility] [place] [facility] [address] [id number] [place] [address]- 0353 Mar, [facility] [place] [facility] [address] [id number] [place] [address]- 1078 Mar, [facility] [place] [facility] [address] [id number] [place] [address]- 3518 14 Mar, 2013 [facility] [place] [facility] [address] [id number] [place] [address]- 9565 Mar, [facility] [place] [facility] [address] [id number] [place] [address]- 0019 Mar, [facility] [place] [facility] [address] [id number] [place] [address]- 8088 Mar, [facility] [place] [facility] [address] [id number] [place] [address]- 3336 Jan, [facility] [place] [facility] [address] [id number] [place] [address]- 1543 Jan, [facility] [place] [facility] [address] [id number] [place] [address]- 6736 Jan, [facility] [place] [facility] [address] [id number] [place] [address]- 3676 Jan, [facility] [place] [facility] [address] [id number] [place] [address]- 6433 Jan, [facility] [place] [facility] [address] [id number] [place] [address]- 3302 Jan, [facility] [place] [facility] [address] [id number] [place] [address]- 0947 Jan, [facility] [place] [facility] [address] [id number] [place] [address]- 0866 Dec, [facility] [place] [facility] [address] [id number] [place] [address]- 0492 Dec, [facility] [place] [facility] [address] [id number] [place] [address]- 5723 Dec, [facility] [place] [facility] [address] [id number] [place] [address]- 9338 Dec, [facility] [place] [facility] [address] [id number] [place] [address]- 1763 08 Dec, 2012 [facility] [address] [id number] [place] [address]- 7397 08 Dec, 2012 [facility] [address] [id number] [place] [address]- 5232 October, [facility] [address] [id number] [place] [address]- 3183 October, [facility] [address] [id number] [place] [address]- 1270 October, [facility] [address] [id number] [place] [address]- 2188 October, [facility] [address] [id number] [place] [address]- 6290 Oct, [facility] [address] [id number] [place] [address]- 7840 Oct, [facility] [address] [id number] [place] [address]- 4828 Aug, [facility] [address] [id number] [place] [address]- 2606 Aug, [facility] [address] [id number] [place] [address]- 5290 Aug, [facility] [address] [id number] [place] [address]- 2140 Aug, [facility] [place] [facility] [address] [id number] [place] [address]- 9933 18 Aug, 2012 [facility] [place] [facility] [address] [id number] [place] [address]- 9598 Aug, [facility] [place] [facility] [address] [id number] [place] [address]- 0987 Aug, [facility] [address] [id number] [place] [address]- 2281 Aug, [facility] [address] [id number] [place] [address]- 9641 Aug, [facility] [place] [facility] [address] [id number] [place] [address]- 1176 Aug, [facility] [place] [facility] [address] [id number] [place] [address]- 6756 Aug, [facility] [place] [facility] [address] [id number] [place] [address] 2546 Aug, [facility] [address] [id number] [place] [address] 2549 Aug, [facility] [place] [facility] [address] [id number] [place] [address]- 7037 Aug, [facility] [address] [id number] [place] [address]- 9162 Jul, [facility] [address] [id number] [place] [address]- 5067 Jul, [facility] [address] [id number] [place] [address]- 3775 Jul, [facility] [address] [id number] [place] [address]- 9302 Jul, [facility] [place] [facility] [address] [id number] [place] [address]- 1276 Jun, [facility] [place] [facility] [address] [id number] [place] [address]- 2544 Jun, [facility] [place] [facility] [address] [id number] [place] [address] 2546 Jun, [facility] [place] [facility] [address] [id number] [place] [address]- 2544 Jun, [facility] [place] [facility] [address] [id number] [place] [address]- 2541 May, [facility] [place] [facility] [address] [facility] [id number] [place] [id number] [address]99 May, IMMUNIZATIONS No Known Immunizations SOCIAL HISTORY Never Assessed REASON FOR VISIT Requests return call PLAN OF CARE VITAL SIGNS MEDICATIONS Medication Instructions Dosage Frequency Start Date End Date Duration Status [place] Carbonate 300 MG TAKE ONE CAPSULE BY MOUTH IN THE MORNING AND TWO CAPSULES AT BEDTIME 30 days Active RESULTS No Results PROCEDURES [...]
--- OUTSIDE RECORDS SUMMARY | 2018-09-02 18:18 | XMS REPORT ---
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 Name Role Phone JOSE LARRY Unavailable PROBLEMS Type Condition ICD9-CM Code [id number] Code Onset Dates Condition Status SNOMED Code Problem Undifferentiated schizophrenia F20.3 Active 581458327 Problem Chronic posttraumatic stress disorder F43.12 Active 658459755 Problem Panic disorder with agoraphobia F40.01 Active 96387535 Problem Other chronic pain G89.29 Active 13469483 Problem Fatty liver K76.0 Active 867533058 Problem Hypothyroid E03.9 Active 68167110 Problem Abuse, drug or alcohol F19.10 Active 87920257 Problem Sleep apnea in adult G47.33 Active 00773784 Problem Panic disorder F41.0 Active 593776036 Problem Depressive disorder, not elsewhere classified F32.9 Active 90630361 Problem BMI 50.0-59.9, adult Z68.43 Active 872823794 Problem Panic disorder without agoraphobia F41.0 Active 32259467 Problem Social phobia F40.10 Active 73803881 Problem Restless legs syndrome G25.81 Active 558954992 Problem Obesity E66.9 Active 129534137 Problem Neuropathy G62.9 Active 981206561 Problem Tunnel vision, unspecified laterality H53.489 Active 010935087 Problem Tachycardia R00.0 Active 9806005 Problem Encounter for therapeutic drug level monitoring Z51.81 Active 187916308 Problem Murmur R01.1 Active 972777173 Problem Orthostatic hypertension I10 Active 45606613 Problem Shortness of breath R06.02 Active 753685726 ALLERGIES No Known Allergies ENCOUNTERS Encounter Location Date Diagnosis [facility] [address] [facility] [id number] [address] [address] Dec, [facility] [id number] [place] [address] 54290- 8394 Dec, [facility] [id number] [place] [address] 16684- 2200 Dec, [facility] [id number] [place] [address] 56061- 2089 Dec, [facility] [id number] [place] [address] 48937- 3001 Dec, [facility] [id number] [place] [address] 11258- 3321 14 Dec, 2017 BMI 50.0-59.9, adult Z68.43 ; Undifferentiated schizophrenia F20.3 ; Panic disorder without agoraphobia F41.0 and Chronic posttraumatic stress disorder F43.12 [facility] [id number] [place] [address] 04992- 9561 04 Dec, 2017 [facility] [id number] [place] [address] 51888- 4431 October, [facility] [id number] [place] [address] 23885- 1585 October, Pain in right shoulder M25.511 and Other chronic pain G89.29 [facility] [id number] [place] [address] 22316- 1781 October, Hypothyroid E03.9 [facility] [id number] [place] [address] 58665- 8416 Oct, Undifferentiated schizophrenia F20.3 [facility] [id number] [place] [address] 06310- 7202 Oct, [facility] [id number] [place] [address] 38263- 2675 Oct, [facility] [id number] [place] [address] 06825- 9960 Aug, Undifferentiated schizophrenia F20.3 [facility] [id number] [place] [address] 01043- 0955 Aug, [facility] [id number] [place] [address] 88667- 6289 Aug, Undifferentiated schizophrenia F20.3 ; Panic disorder with agoraphobia F40.01 ; Chronic posttraumatic stress disorder F43.12 and BMI 50.0- 59.9, adult Z68.43 [facility] [id number] [place] [address] 95784- 9742 05 Aug, 2017 [facility] [id number] [place] [address] 84419- 6116 Aug, [facility] [id number] [place] [address] 28253- 8188 Aug, Undifferentiated schizophrenia F20.3 [facility] [id number] [place] [address] 86502- 8423 Aug, Hypothyroid E03.9 [facility] [id number] [place] [address] 57773- 8399 Jul, Undifferentiated schizophrenia F20.3 [facility] [id number] [place] [address] 54470- 7706 Jul, [facility] [id number] [place] [address] 88497- 9859 Jul, Undifferentiated schizophrenia F20.3 ; Chronic posttraumatic stress disorder F43.12 ; Panic disorder with agoraphobia F40.01 and BMI 50.0-59.9, adult Z68.43 [facility] [id number] [place] [address] 09545- 6261 15 Jul, 2017 [facility] [id number] [place] [address] 96581- 6221 08 Jul, 2017 Acute pain of right shoulder M25.511 ; High risk medication use Z79.899 ; Needle stick injury W27.3XXA ; Hypothyroid E03.9 and BMI 50.0-59.9 , adult Z68.43 [facility] [id number] [place] [address] 63256- 6337 Jun, Undifferentiated schizophrenia F20.3 [facility] [id number] [place] [address] 98942- 1019 Jun, Undifferentiated schizophrenia F20.3 ; Panic disorder without agoraphobia F41.0 ; Chronic posttraumatic stress disorder F43.12 and BMI 50.0-59.9, adult Z68.43 [facility] [id number] [place] [address] 46788- 2742 May, [facility] [id number] [place] [address] 59258- 3207 May, [facility] [id number] [place] [address] 95617- 6305 May, Undifferentiated schizophrenia F20.3 [facility] [id number] [place] [address] 32957- 0260 May, [facility] [id number] [place] [address] 19793- 6341 May, [facility] [id number] [place] [address] 39042- 3939 May, Hypothyroid E03.9 [facility] [id number] [place] [address] 42957- 5104 May, [facility] [id number] [place] [address] 86109- 1510 10 May, 2017 [facility] [id number] [place] [address] 71976- 5292 07 May, 2017 Chronic posttraumatic stress disorder F43.12 ; Panic disorder with agoraphobia F40.01 ; Undifferentiated schizophrenia F20.3 ; BMI 40.0-44.9, adult Z68.41 and Obesity E66.9 [facility] [address] [place] [address] 05690- 2078 07 May, 2017 Shortness of breath R06.02 [facility] [id number] [place] [address] 62896- 3482 May, [facility] [id number] [place] [address] 16773- 7503 Apr, Undifferentiated schizophrenia F20.3 [facility] [address] [place] [address] 50253- 5028 Apr, [facility] [id number] [place] [address] 39534- 4191 Apr, [facility] [id number] [place] [address] 78953- 7233 Mar, Undifferentiated schizophrenia F20.3 ; Panic disorder without agoraphobia F41.0 and Chronic posttraumatic stress disorder F43.12 [facility] [id number] [place] [address] 09118- 3348 Mar, Undifferentiated schizophrenia F20.3 [facility] [id number] [place] [address] 35208- 7018 18 Mar, 2017 [facility] [id number] [place] [address] 75735- 9467 08 Mar, 2017 [facility] [id number] [place] [address] 53157- 1176 07 Mar, 2017 [facility] [id number] [place] [address] 85935- 0112 Jan, Undifferentiated schizophrenia F20.3 [facility] [address] [place] [address] 95211- 8543 Jan, [facility] [address] [place] [address] 95829- 1612 Jan, [facility] [id number] [place] [address] 15231- 5064 Jan, [facility] [address] [id number] [id number] Dec, Needle stick injury W27.3XXA [facility] [id number] [place] [address] 66480- 8831 Dec, Needle stick injury W27.3XXA [facility] [id number] [place] [address] 11860- 4405 Dec, Undifferentiated schizophrenia F20.3 [facility] [address] [id number] [address]- 9003 Dec, [facility] [id number] [place] [address] 22236- 6104 Dec, [facility] [id number] [place] [address] 61399- 1763 Dec, Undifferentiated schizophrenia F20.3 ; Panic disorder with agoraphobia F40.01 and Chronic posttraumatic stress disorder F43.12 [facility] [id number] [place] [address] 47120- 2858 Dec, [facility] [id number] [place] [address] 46037- 8488 October, [facility] [id number] [place] [address] 34368- 3621 October, Undifferentiated schizophrenia F20.3 [facility] [id number] [place] [address] 15733- 7707 October, [facility] [address] [address]- 8349 October, [facility] [address] [place] [address] 33581- 9377 Oct, Undifferentiated schizophrenia F20.3 ; Panic disorder with agoraphobia F40.01 ; Chronic posttraumatic stress disorder F43.12 and Obesity E66.9 [facility] [address] [id number] [address]- 6388 Oct, [facility] [address] [address]- 6941 Oct, [facility] [id number] [place] [address] 42474- 7600 Aug, Undifferentiated schizophrenia F20.3 [facility] [id number] [place] [address] 33038- 6706 Aug, [facility] [id number] [place] [address] 31089- 8997 Aug, Muscle spasm M62.838 [facility] [id number] [place] [address] 22576- 8626 Aug, Undifferentiated schizophrenia F20.3 [facility] [id number] [place] [address] 90610- 0739 Aug, Undifferentiated schizophrenia F20.3 ; Panic disorder with agoraphobia F40.01 ; Chronic posttraumatic stress disorder F43.12 ; High risk medication use Z79.899 and Social phobia F40.10 [facility] [id number] [place] [address] 67094- 8491 Aug, Undifferentiated schizophrenia F20.3 [facility] [id number] [place] [address] 55469- 1900 Aug, [facility] [id number] [place] [address] 70318- 5619 Aug, Acute non-recurrent maxillary sinusitis J01.00 [facility] [id number] [place] [address] 78655- 6694 Aug, [facility] [id number] [place] [address] 01905- 7179 Aug, [facility] [id number] [place] [address] 12142- 2272 Jul, Undifferentiated schizophrenia F20.3 [facility] [id number] [place] [address] 22065- 7519 Jul, Schizophrenia, undifferentiated F20.3 ; Social phobia F40.10 ; Post-traumatic stress disorder F43.10 ; Panic disorder F41.0 and Depressive disorder, not elsewhere classified F32.9 [facility] [address] [address]- 8715 Jul, [facility] [id number] [place] [address] 69289- 5107 Jul, Schizophrenia, undifferentiated F20.3 ; Social phobia F40.10 ; Post-traumatic stress disorder F43.10 ; Panic disorder F41.0 and Depressive disorder, not elsewhere classified F32.9 [facility] [id number] [place] [address] 98603- 5221 Jul, [facility] [id number] [place] [address] 35796- 6426 Jul, Undifferentiated schizophrenia F20.3 ; Panic disorder with agoraphobia F40.01 ; Social phobia F40.10 ; Obesity E66.9 and Chronic posttraumatic stress disorder F43.12 [facility] [id number] [place] [address] 33771- 8227 Jun, [facility] [id number] [place] [address] 49861- 0841 Jun, [facility] [id number] [place] [address] 97449- 2860 Jun, Dental caries K02.9 [facility] [id number] [place] [address] 01892- 6354 Jun, Undifferentiated schizophrenia F20.3 [facility] [id number] [place] [address] 47822- 5359 May, [facility] [id number] [place] [address] 61236- 0621 May, Undifferentiated schizophrenia F20.3 ; Panic disorder with agoraphobia F40.01 and Chronic post-traumatic stress disorder (PTSD) F43.12 [facility] [address] [place] [address] 25639- 1335 May, [facility] [id number] [place] [address] 09129- 2671 11 May, 2016 Undifferentiated schizophrenia F20.3 [facility] [id number] [place] [address] 72309- 5274 10 May, 2016 [facility] [address] 11980- 1567 07 May, 2016 Dental examination Z01.20 [facility] [address] 35754- 1419 Apr, Undifferentiated schizophrenia F20.3 ; PTSD (post-traumatic stress disorder) F43.10 and Obesity E66.9 [place] [address] 77967- 1068 18 Apr, 2016 [place] [address] 81515- 1193 15 Mar, 2016 [place] [address] 44867- 2056 Mar, [facility] [address] 47616- 6038 Jan, Shortness of breath R06.02 and Bipolar disorder with psychotic features F31.9 [place] [address] 57980- 4005 Jan, [facility] [address] 20553- 4819 Jan, Increased intracranial pressure G93.2 ; Visual disturbance H53.9 and Bipolar II disorder F31.81 [facility] [id number] [place] [address] 59612- 2486 Jan, [facility] [address] 26857- 8410 Jan, [facility] [address] 24841- 1447 Jan, [facility] [address] 85421- 1132 Jan, Acquired hypothyroidism E03.9 ; Depression F32.9 and Insomnia G47.[address] 05148- 6798 Jan, Exertional dyspnea R06.09 ; Heart palpitations R00.2 ; Hyperlipidemia, unspecified hyperlipidemia type E78.5 ; Hypothyroidism, unspecified type E03.9 and Hypokalemia E87.[address] 14962- 2813 Dec, PTSD (post-traumatic stress disorder) F43.10 ; Depression F32.9 ; Insomnia G47.00 and Bipolar disorder with psychotic features F31.[address] 97076- 5429 Dec, Increased intracranial pressure G93.[address] 95878- 0188 Dec, [place] [address] 14519- 4007 Dec, Shortness of breath R06.[address] 17190- 6241 Dec, Visual disturbance H53.9 and Headache, unspecified headache type R51 [address] 01217- 6360 Dec, Insomnia G47.00 [place] [address] 52467- 6950 Dec, Murmur R01.[address] 22096- 3497 Dec, Murmur R01.1 ; Tunnel vision, unspecified laterality H53.489 ; Orthostatic hypertension I10 ; Shortness of breath R06.02 and Tachycardia R00.[address] 77839- 4899 Dec, [facility] [address] [place] [address] 87178- 6918 Dec, Hypothyroid E03.9 and Bipolar 1 disorder F31.9 [facility] [id number] [place] [address] 56267- 0525 Dec, Bipolar 1 disorder F31.9 [facility] [id number] [place] [address] 26381- 7257 Dec, [facility] [id number] [place] [address] 04311- 3247 October, Acquired hypothyroidism E03.9 ; Depression F32.9 and Insomnia G47.00 [place] [id number] [place] [address] 04782- 3085 October, [facility] [id number] [place] [address] 09390- 1486 October, Bipolar 1 disorder F31.9 ; PTSD (post-traumatic stress disorder) F43.10 and Social phobia F40.10 [place] [address] [place] [address] 70115- 0354 Oct, Bipolar 1 disorder F31.9 and Insomnia G47.00 [facility] [id number] [place] [address] 26032- 3166 Oct, [facility] [id number] [place] [address] 10315- 3216 Oct, [facility] [id number] [place] [address] 15869- 5451 Aug, Hypothyroid E03.9 [facility] [id number] [place] [address] 65600- 9627 Aug, Encounter for therapeutic drug level monitoring Z51.81 and 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 [facility] [address] [place] [address] 47885- 2974 Aug, Encounter for therapeutic drug level monitoring Z51.81 [facility] [address] [address]- 4756 Aug, Acquired hypothyroidism E03.9 ; Leg pain M79.606 and Bipolar 1 disorder F31.9 [facility] [address] [place] [address] 66164- 4022 Aug, [facility] [id number] [place] [address] 27222- 1484 Aug, [facility] [id number] [place] [address] 05950- 1986 Jul, Thyroid disorder E07.9 [facility] [id number] [place] [address] 76711- 1818 Jul, Rash R21 ; Abnormal LFTs R94.5 ; Acquired hypothyroidism E03.9 ; Sleep apnea in adult G47.33 and Fatty liver K76.0 [facility] [id number] [place] [address] 35517- 5437 Jun, [facility] [id number] [place] [address] 07355- 8679 Jun, [facility] [id number] [place] [address] 07388- 8762 Jun, Bipolar II disorder F31.81 and Social phobia, generalized F40.11 [facility] [id number] [place] [address] 02982- 4118 Mar, Bipolar II disorder 296.89 and Social phobia 300.23 [facility] [address] [place] [address] 28935- 0605 Dec, [facility] [id number] [place] [address] 95790- 6791 Dec, [facility] [address] [place] [address] 32898- 5719 Dec, Bipolar II disorder in partial or unspecified remission 296.89 and Social phobia, generalized 300.23 [facility] [address] [id number] [place] [address]- 8085 30 Oct, 2014 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 [address] [id number] [address]- 9290 Aug, [facility] [address] [facility] [id number] [place] [address]- 5502 Aug, [facility] [address] [facility] [id number] [address]- 4789 Aug, [facility] [id number] [place] [address]- 0270 Aug, [facility] [address] [facility] [id number] [address]- 0162 Aug, [facility] [address] [facility] [id number] [place] [address]- 1122 Aug, [facility] [id number] [address]- 0135 Aug, [facility] [id number] [address]- 5545 Aug, [facility] [place] [facility] [address] [facility] [id number], [place] [address]- 0976 Jul, [facility] [place] [facility] [address] [facility] [id number], [place] [address]- 8839 Jul, [facility] [place] [facility] [address] [facility] [id number], [place] [address]- 7474 Jul, [facility] [place] [facility] [address] [facility] [id number] [place] [address]- 1810 Jul, [facility] [place] [facility] [address] [facility] [id number] [place] [address]- 2935 Jul, [facility] [address] [id number] [place] [address] Jul, [facility] [address] [id number] [place] [address] Jun, [facility] [address] [id number] [place] [address] Jun, [facility] [address] [id number] [place] [address] Jun, [facility] [address] [id number] [place] Jun, [facility] [address] [id number] [place] [address] Jun, [facility] [address] [id number] [place] [address] Jun, [facility] [address] [id number] [place] [address] Jun, [facility] [place] [facility] [address] [id number] [place] [address] Jun, [facility] [address] [id number] [place] [address] Jun, [facility] [place] [facility] [address] [id number] [place] [address] Jun, [facility] [place] [facility] [address] [id number] [place] [address] Jun, [facility] [place] [facility] [address] [id number] [place] [address] Jun, [facility] [place] [facility] [address] [id number] [place] [address] Jun, [facility] [place] [facility] [address] [id number] [place] [address] Jun, [facility] [place] [facility] [address] [id number] [place] [address] Jun, [facility] [place] [facility] [address] [id number] [place] [address] Jun, [facility] [place] [facility] [address] [id number] [place] [address] May, [facility] [place] [facility] [address] [id number] [place] [address] May, [facility] [place] [facility] [address] [id number] [place] [address] May, [facility] [place] [facility] [address] [id number] [place] [address] May, [facility] [place] [facility] [address] [id number] [place] [address] May, [facility] [place] [facility] [address] [id number] [place] [address] May, [facility] [place] [facility] [address] [id number] [place] [address] Apr, [facility] [place] [facility] [address] [id number], [place] [address] Apr, [facility] [place] [facility] [address] [id number], [place] [address] Apr, [facility] [place] [facility] [address] [id number], [place] [address] Apr, [facility] [place] [facility] [address] [id number] [place] [address] Apr, [facility] [place] [facility] [address] [id number], [place] [address] Apr, [facility] [place] [facility] [address] [id number] [place] [address] Mar, [facility] [place] [facility] [address] [id number] [place] [address] Mar, [facility] [place] [facility] [address] [id number] [place] [address] Mar, [facility] [place] [facility] [address] [id number] [place] [address] Mar, [facility] [place] [facility] [address] [id number] [place] [address] Jan, [facility] [place] [facility] [address] [id number] [place] [address] Jan, [facility] [place] [facility] [address] [id number] [place] [address] Jan, [facility] [place] [facility] [address] [id number] [place] [address] Jan, [facility] [place] [facility] [address] [id number] [place] [address] 26[address] Jan, [facility] [place] [facility] [address] [id number] [place] [address] 39[address] Jan, [facility] [place] [facility] [address] [id number] [place] [address] 8[address] Dec, [facility] [place] [facility] [address] [id number] [place] [address] 4117 Dec, [facility] [place] [facility] [address] [id number] [place] [address] 4[address] Dec, [facility] [place] [facility] [address] [id number] [place] [address] 4196 Dec, [facility] [place] [facility] [address] [id number] [place] [address] 2710 Dec, [facility] [place] [facility] [address] [id number] [place] [address]671 Dec, [facility] [place] [facility] [address] [id number] [place] [address] 0067 October, [facility] [place] [facility] [address] [id number] [place] [address] 3501 October, [facility] [place] [facility] [address] [id number] [place] [address] 5853 October, [facility] [place] [facility] [address] [id number] [place] [address]- 9982 October, [facility] [place] [facility] [address] [id number] [place] [address] 7764 October, [facility] [place] [facility] [address] [id number] [place] [address]- 7874 October, [facility] [place] [facility] [address] [id number] [place] [address]- 0708 October, [facility] [place] [facility] [address] [id number] [place] [address] October, [facility] [place] [facility] [address] [id number] [place] [address] 9956 Oct, [facility] [place] [facility] [address] [id number] [place] [address] Oct, [facility] [place] [facility] [address] [id number] [place] [address]- 8305 Oct, [facility] [place] [facility] [address] [id number] [place] [address]303 Oct, [facility] [place] [facility] [address] [id number] [place] [address]- 3373 Oct, [facility] [place] [facility] [address] [id number] [place] [address] 2033 Aug, [facility] [place] [facility] [address] [id number] [place] [address]- [address]800 Aug, [facility] [place] [facility] [address] [id number] [place] [address] 6656 Aug, [facility] [place] [facility] [address] [id number] [place] [address] 4929 Aug, [facility] [place] [facility] [address] [id number] [place] [address] 8858 Aug, [facility] [place] [facility] [address] [id number] [place] [address]- 0833 Aug, [facility] [place] [facility] [address] [id number] [place] [address]- 2078 Jul, [facility] [place] [facility] [address] [id number] [place] [address]- 0362 Jul, [facility] [place] [facility] [address] [id number] [place] [address]- 5334 Jul, [facility] [place] [facility] [address] [id number] [place] [address]- 2615 Jul, [facility] [place] [facility] [address] [id number] [place] [address] 9119 Jul, [facility] [place] [facility] [address] [id number] [place] [address]- 0972 Jul, [facility] [place] [facility] [address] [id number] [place] [address]- 5198 Jun, [facility] [place] [facility] [address] [id number] [place] [address]- 7275 Jun, [facility] [place] [facility] [address] [id number], [place] [address]65 Jun, [facility] [place] [facility] [address] [id number], [place] [address] 36[address] Jun, [facility] [place] [facility] [address] [id number] [place] [address]- 1280 Jun, [facility] [place] [facility] [address] [id number] [place] [address]- 1066 Jun, [facility] [place] [facility] [address] [id number] [place] [address] May, [facility] [place] [facility] [address] [id number] [place] [address]- [address]82 04 May, 2013 [facility] [address] [id number] [place] [address]- 6146 24 Apr, 2013 [facility] [place] [facility] [address] [id number] [place] [address]- 1507 24 Apr, 2013 [facility] [place] [facility] [address] [id number] [place] [address]- 8277 Apr, [facility] [place] [facility] [address] [id number] [place] [address]- 2227 Apr, [facility] [place] [facility] [address] [id number] [place] [address]- 7216 Apr, [facility] [place] [facility] [address] [id number] [place] [address]- 3637 Apr, [facility] [place] [facility] [address] [id number] [place] [address]- 5264 Apr, [facility] [address] [id number] [place] [address]- 8921 18 Apr, 2013 [facility] [place] [facility] [address] [id number] [place] [address]- 7250 Apr, [facility] [place] [facility] [address] [id number] [place] [address]- 7529 Apr, [facility] [place] [facility] [address] [id number] [place] [address]- 2488 02 Apr, 2013 [facility] [place] [facility] [address] [id number] [place] [address]- 5340 23 Mar, 2012 [facility] [place] [facility] [address] [id number] [place] [address]- 8593 20 Mar, 2012 [facility] [place] [facility] [address] [id number] [place] [address]- 2506 20 Mar, 2012 [facility] [place] [facility] [address] [id number] [place] [address]- 6553 14 Mar, 2013 [facility] [place] [facility] [address] [id number] [place] [address]- 6077 12 Mar, 2013 [facility] [place] [facility] [address] [id number] [place] [address]- 9127 Mar, [facility] [place] [facility] [address] [id number] [place] [address]- 3783 Mar, [facility] [place] [facility] [address] [id number] [place] [address]- 2864 Jan, [facility] [place] [facility] [address] [id number] [place] [address]- 8141 Jan, [facility] [place] [facility] [address] [id number] [place] [address]- 2010 Jan, [facility] [place] [facility] [address] [id number] [place] [address]- 4756 Jan, [facility] [place] [facility] [address] [id number] [place] [address]- 7057 Jan, [facility] [place] [facility] [address] [id number] [place] [address]- 7675 Jan, [facility] [place] [facility] [address] [id number] [place] [address]- 9856 Jan, [facility] [place] [facility] [address] [id number] [place] [address]- 1860 Dec, [facility] [place] [facility] [address] [id number] [place] [address]- 9457 Dec, [facility] [place] [facility] [address] [id number] [place] [address]- 7845 Dec, [facility] [place] [facility] [address] [id number] [place] [address]- 3279 Dec, [facility] [place] [facility] [address] [id number] [place] [address]- 0807 Dec, [facility] [place] [facility] [address] [id number] [place] [address]- 6287 08 Dec, 2012 [facility] [place] [facility] [address] [id number] [place] [address]- 2237 17 Oct, 2012 [facility] [address] [id number] [place] [address]- 8095 October, [facility] [address] [id number] [place] [address]- 6729 October, [facility] [address] [id number] [place] [address]- 3174 October, [facility] [address] [id number] [place] [address]- 6096 Oct, [facility] [address] [id number] [place] [address]- 4112 Oct, [facility] [address] [id number] [place] [address]- 0813 Aug, [facility] [address] [id number] [place] [address]- 6581 Aug, [facility] [address] [id number] [place] [address]- 7979 Aug, [facility] [address] [id number] [place] [address]- 3724 Aug, [facility] [address] [id number] [place] [address]- 7737 Aug, [facility] [address] [id number] [place] [address]- 3711 Aug, [facility] [address] [id number] [place] [address]- 3027 Aug, [facility] [address] [id number] [place] [address]- 3104 Aug, [facility] [address] [id number], [place] [address]- [address] Aug, [facility] [address] [facility] [id number] [place] [address]- 6016 Aug, [facility] [address] [facility] [id number] [place] [address]- 6406 Aug, [facility] [address] [facility] [id number] [place] [address] 2546 08 Aug, 2012 [facility] [address] [facility] [id number] [place] [address] 2546 Aug, [facility] [address] [facility] [id number] [place] [address]- 1436 Aug, [facility] [address] [facility] [id number] [place] [address]- 3102 Jul, [facility] [address] [facility] [id number] [place] [address]- 5877 Jul, [facility] [address] [id number], [place] [address]- 1306 Jul, [facility] [address] [facility] [id number], [place] [address]- 6194 Jul, [facility] [address] [id number], [place] [address]- 7123 Jun, [facility] [address] [facility] [id number], [place] [address]- 2658 Jun, [facility] [address] [facility] [id number], [place] [address]- 0137 Jun, [facility] [address] [facility] [id number], [place] [address]- 2546 Jun, [facility] [address] [facility] [id number], [place] [address]- 2540 May, [facility] [address] [facility] [id number][place] [address] May, IMMUNIZATIONS No Known Immunizations SOCIAL HISTORY Never Assessed REASON FOR VISIT Pain management (chronic)-Raza ZAMBRANO PLAN OF CARE Activity Details Follow Up 6 Months Reason:hypothyroid Pending Test HEP C ANTIBODY (STATE) Pending Test HIV (STATE) Pending Test HEP B SURFACE ANTIGEN (STATE) VITAL SIGNS Height 67 in 2017-07-10 Weight 346.8 lbs 2017-07-10 Temperature 98.0 degrees Fahrenheit 2017-07-10 Heart Rate 76 bpm 2017-07-10 Respiratory Rate 22 2017-07-10 BMI 54.31 kg/m2 2017-07-10 Blood pressure systolic 112 mmHg 2017-07-10 Blood pressure diastolic 76 mmHg 2017-07-10 MEDICATIONS Medication Instructions Dosage Frequency Start Date End Date Duration Status Levothyroxine Sodium 100 MCG Orally Once a day 1 tablet 24h Aug, 90 days Active Neurontin 800 MG Orally 2 times a day 1 tablet 12h Aug, 81 days Active Breo Ellipta 100-25 MCG/INH Inhalation Once a day 1 puff 24h 20 Dec, 2015 90 days Active Clonazepam 1 MG Orally 3 times a day for anxiety 1 tablet Apr, Active [place] Carbonate 300 MG TAKE ONE CAPSULE BY MOUTH IN THE MORNING AND TWO CAPSULES AT BEDTIME Active Trazodone HCl 100 mg Orally Once a day 2 tablet at bedtime 24h Active Aristada 882 MG/3.2ML Intramuscular once monthly 3.2 ml May, Active Seroquel 50 MG Orally at bedtime for sleep 1 tablet May, Active RESULTS No Results PROCEDURES Procedure Date Ordered Result Body Site COMPLETE CBC W/AUTO DIFF WBC Jul 10, 2017 COMPREHEN METABOLIC PANEL Jul 10, 2017 No Charge Jul 10, 2017 ASSAY THYROID STIM HORMONE Jul 10, 2017 VENIPUNCT, ROUTINE* Jul 10, 2017 INSTRUCTIONS MEDICATIONS ADMINISTERED No Known Medications [...]
--- OUTSIDE RECORDS SUMMARY | 2018-09-02 18:18 | XMS REPORT ---
Author Author DIGNA GUERRERO [facility] Address [address] [place] [address] Care Team Providers Care Inside Outside Sales Representative Name Role Phone DIGNA GUERRERO Unavailable PROBLEMS Type Condition ICD9-CM Code EFM87-SD Code Onset Dates Condition Status SNOMED Code Problem Murmur R01.1 Active 943997296 Problem Shortness of breath R06.02 Active 948794824 Problem Tachycardia R00.0 Active 4782326 Problem Depressive disorder, not elsewhere classified F32.9 Active 17293526 Problem Acquired hypothyroidism E03.9 Active 434705470 Problem Panic disorder without agoraphobia F41.0 Active 40958776 Problem Panic disorder with agoraphobia F40.01 Active 53758782 Problem Undifferentiated schizophrenia F20.3 Active 624032495 Problem Panic disorder F41.0 Active 832259442 Problem Chronic posttraumatic stress disorder F43.12 Active 236167683 Problem Fatty liver K76.0 Active 892793664 Problem Obesity E66.9 Active 884724825 Problem Sleep apnea in adult G47.33 Active 71481559 Problem Abuse, drug or alcohol F19.10 Active 29817655 Problem Neuropathy G62.9 Active 008177116 Problem Encounter for therapeutic drug level monitoring Z51.81 Active 677075967 Problem Social phobia F40.10 Active 93103971 Problem Orthostatic hypertension I10 Active 02110755 Problem Restless legs syndrome G25.81 Active 008043348 Problem Tunnel vision, unspecified laterality H53.489 Active 258066434 ALLERGIES No Information SOCIAL HISTORY Never Assessed PLAN OF CARE VITAL SIGNS MEDICATIONS Unknown Medications RESULTS No Results PROCEDURES No Known procedures IMMUNIZATIONS No Known Immunizations MEDICAL (GENERAL) HISTORY Type Description Date Medical [...]
--- OUTSIDE RECORDS SUMMARY | 2018-09-02 18:19 | XMS REPORT ---
Author Author AMARI HOWARD [facility] Address [address] [place] [address] Care Team Providers Care Store Protection Specialist Name Role Phone AMARI HOWARD Unavailable PROBLEMS Type Condition ICD9-CM Code GGE12-CA Code Onset Dates Condition Status SNOMED Code Problem Undifferentiated schizophrenia F20.3 Active 873649824 Problem Chronic posttraumatic stress disorder F43.12 Active 977604521 Problem Panic disorder with agoraphobia F40.01 Active 81251737 Problem Other chronic pain G89.29 Active 95508383 Problem Fatty liver K76.0 Active 904488658 Problem Hypothyroid E03.9 Active 31062004 Problem Abuse, drug or alcohol F19.10 Active 50138779 Problem Sleep apnea in adult G47.33 Active 08723383 Problem Panic disorder F41.0 Active 865730183 Problem Depressive disorder, not elsewhere classified F32.9 Active 54221060 Problem BMI 50.0-59.9, adult Z68.43 Active 266988485 Problem Panic disorder without agoraphobia F41.0 Active 86746558 Problem Social phobia F40.10 Active 73625232 Problem Restless legs syndrome G25.81 Active 585890351 Problem Obesity E66.9 Active 610210068 Problem Neuropathy G62.9 Active 695231067 Problem Tunnel vision, unspecified laterality H53.489 Active 075866735 Problem Tachycardia R00.0 Active 9092102 Problem Encounter for therapeutic drug level monitoring Z51.81 Active 520065272 Problem Murmur R01.1 Active 335614496 Problem Orthostatic hypertension I10 Active 58390485 Problem Shortness of breath R06.02 Active 528013917 ALLERGIES No Information ENCOUNTERS Encounter Location Date Diagnosis [facility] [address] [facility] [id number] [address] 4[address] Dec, [facility] [address] [facility] [id number] [place] [address] 96121- 3309 14 Dec, 2017 [facility] [address] [address] 6186 Dec, [facility] [address] [place] [address] 45754- 8917 October, [facility] [id number] [place] [address] 83741- 4535 October, Pain in right shoulder M25.511 and Other chronic pain G89.29 [facility] [id number] [place] [address] 64635- 6306 October, Hypothyroid E03.9 [facility] [id number] [place] [address] 70759- 3835 Oct, Undifferentiated schizophrenia F20.3 [facility] [id number] [place] [address] 73815- 6390 Oct, [facility] [id number] [place] [address] 91915- 3471 Oct, [facility] [id number] [place] [address] 62834- 6379 Aug, Undifferentiated schizophrenia F20.3 [facility] [id number] [place] [address] 01414- 0598 Aug, [facility] [address] [place] [address] 60788- 1122 Aug, Undifferentiated schizophrenia F20.3 ; Panic disorder with agoraphobia F40.01 ; Chronic posttraumatic stress disorder F43.12 and BMI 50.0- 59.9, adult Z68.43 [facility] [id number] [place] [address] 21100- 1695 05 Aug, 2017 [facility] [id number] [place] [address] 49514- 2519 Aug, [facility] [id number] [place] [address] 19474- 0099 Aug, Undifferentiated schizophrenia F20.3 [facility] [address] [address] 6929 Aug, Hypothyroid E03.9 [facility] [id number] [place] [address] 84851- 5704 Jul, Undifferentiated schizophrenia F20.3 [facility] [id number] [place] [address] 54061- 6191 Jul, [facility] [id number] [place] [address] 66494- 1555 Jul, Undifferentiated schizophrenia F20.3 ; Chronic posttraumatic stress disorder F43.12 ; Panic disorder with agoraphobia F40.01 and BMI 50.0-59.9, adult Z68.43 [facility] [id number] [place] [address] 12579- 6937 Jul, [facility] [id number] [place] [address] 63096- 4856 Jul, Acute pain of right shoulder M25.511 ; High risk medication use Z79.899 ; Needle stick injury W27.3XXA ; Hypothyroid E03.9 and BMI 50.0-59.9 , adult Z68.43 [facility] [address] [place] [address] 69765- 0832 Jun, Undifferentiated schizophrenia F20.3 [facility] [id number] [place] [address] 20641- 3245 14 Jun, 2017 Undifferentiated schizophrenia F20.3 ; Panic disorder without agoraphobia F41.0 ; Chronic posttraumatic stress disorder F43.12 and BMI 50.0-59.9, adult Z68.43 [facility] [id number] [place] [address] 74069- 5552 May, [facility] [id number] [place] [address] 51187- 4420 May, [facility] [id number] [address]- 7429 May, Undifferentiated schizophrenia F20.3 [facility] [id number] [place] [address] 09939- 5392 May, [facility] [id number] [place] [address] 08313- 2866 May, [facility] [id number] [place] [address] 48077- 9758 May, Hypothyroid E03.9 [facility] [id number] [place] [address] 34433- 5505 May, [facility] [id number] [place] [address] 62473- 5318 10 May, 2017 [facility] [id number] [place] [address] 91783- 7714 May, Chronic posttraumatic stress disorder F43.12 ; Panic disorder with agoraphobia F40.01 ; Undifferentiated schizophrenia F20.3 ; BMI 40.0-44.9, adult Z68.41 and Obesity E66.9 [facility] [id number] [place] [address] 63335- 5931 07 May, 2017 Shortness of breath R06.02 [facility] [address] [place] [address] 65257- 1162 May, [facility] [id number] [place] [address] 13854- 7879 Apr, Undifferentiated schizophrenia F20.3 [facility] [address] [address]- 4218 Apr, [facility] [id number] [place] [address] 37777- 8208 Apr, [facility] [address] [address]- 5332 Mar, Undifferentiated schizophrenia F20.3 ; Panic disorder without agoraphobia F41.0 and Chronic posttraumatic stress disorder F43.12 [facility] [address] [facility] [id number] [address]- 1750 Mar, Undifferentiated schizophrenia F20.3 [facility] [address] [facility] [id number] [place] [address] 66439- 9772 18 Mar, 2017 [facility] [address] [place] [address] 52260- 2797 Mar, [facility] [id number] [place] [address] 70016- 2330 Mar, [facility] [id number] [place] [address] 95145- 2614 Jan, Undifferentiated schizophrenia F20.3 [facility] [address] [place] [address] 89561- 0044 Jan, [facility] [id number] [place] [address] 70319- 9975 Jan, [facility] [address] [place] [address] 12342- 3767 Jan, [address] [id number] [place] [id number] Dec, Needle stick injury W27.3XXA [facility] [address] [place] [address] 18014- 6454 Dec, Needle stick injury W27.3XXA [facility] [address] [place] [address] 31829- 3594 Dec, Undifferentiated schizophrenia F20.3 [facility] [address] [place] [address] 43095- 9997 Dec, [facility] [address] [place] [address] 04064- 4809 Dec, [facility] [address] [place] [address] 57226- 3565 Dec, Undifferentiated schizophrenia F20.3 ; Panic disorder with agoraphobia F40.01 and Chronic posttraumatic stress disorder F43.12 [facility] [address] [address]- 9932 Dec, [facility] [id number] [address]- 7016 October, [facility] [id number] [address]- 7466 October, Undifferentiated schizophrenia F20.3 [facility] [id number] [address]- 4736 October, [facility] [id number] [place] [address] 63570- 5436 October, [facility] [id number] [address]- 7054 Oct, Undifferentiated schizophrenia F20.3 ; Panic disorder with agoraphobia F40.01 ; Chronic posttraumatic stress disorder F43.12 and Obesity E66.9 [facility] [address] [address]- 6049 Oct, [facility] [id number] [address]- 9295 Oct, [facility] [address] [address]- 4285 Aug, Undifferentiated schizophrenia F20.3 [facility] [address] [address]- 6466 Aug, [facility] [address] [address]- 5727 Aug, Muscle spasm M62.838 [facility] [id number] [address]- 7416 Aug, Undifferentiated schizophrenia F20.3 [facility] [address] [address]- 3266 Aug, Undifferentiated schizophrenia F20.3 ; Panic disorder with agoraphobia F40.01 ; Chronic posttraumatic stress disorder F43.12 ; High risk medication use Z79.899 and Social phobia F40.10 [facility] [id number] [place] [address] 92830- 1425 Aug, Undifferentiated schizophrenia F20.3 [facility] [id number] [place] [address] 38184- 8119 Aug, [facility] [id number] [place] [address] 42626- 9512 Aug, Acute non-recurrent maxillary sinusitis J01.00 [facility] [id number] [place] [address] 43275- 3722 Aug, [facility] [id number] [place] [address] 42980- 3135 Aug, [facility] [id number] [place] [address] 18570- 6036 Jul, Undifferentiated schizophrenia F20.3 [facility] [id number] [place] [address] 74558- 2418 Jul, Schizophrenia, undifferentiated F20.3 ; Social phobia F40.10 ; Post-traumatic stress disorder F43.10 ; Panic disorder F41.0 and Depressive disorder, not elsewhere classified F32.9 [facility] [address] [address]- 1825 Jul, [facility] [id number] [place] [address] 01221- 6368 Jul, Schizophrenia, undifferentiated F20.3 ; Social phobia F40.10 ; Post-traumatic stress disorder F43.10 ; Panic disorder F41.0 and Depressive disorder, not elsewhere classified F32.9 [facility] [address] [place] [address] 66223- 7901 Jul, [facility] [address] [place] [address] 90378- 6601 Jul, Undifferentiated schizophrenia F20.3 ; Panic disorder with agoraphobia F40.01 ; Social phobia F40.10 ; Obesity E66.9 and Chronic posttraumatic stress disorder F43.12 [facility] [id number] [place] [address] 49246- 3563 Jun, [facility] [id number] [place] [address] 23808- 9186 Jun, [facility] [id number] [place] [address] 01487- 7921 Jun, Dental caries K02.9 [facility] [id number] [place] [address] 59422- 4898 Jun, Undifferentiated schizophrenia F20.3 [facility] [id number] [place] [address] 39280- 6252 30 May, 2016 [facility] [id number] [place] [address] 45175- 8727 29 May, 2016 Undifferentiated schizophrenia F20.3 ; Panic disorder with agoraphobia F40.01 and Chronic post-traumatic stress disorder (PTSD) F43.12 [facility] [id number] [place] [address] 71440- 3639 May, [facility] [id number] [place] [address] 88276- 5003 May, Undifferentiated schizophrenia F20.3 [facility] [id number] [place] [address] 58829- 4281 May, [facility] [id number] [place] [address] 01414- 0416 07 May, 2016 Dental examination Z01.20 [facility] [id number] [place] [address] 58920- 6096 Apr, Undifferentiated schizophrenia F20.3 ; PTSD (post-traumatic stress disorder) F43.10 and Obesity E66.9 [facility] [id number] [place] [address] 61881- 6953 Apr, [facility] [id number] [place] [address] 98060- 6726 Mar, [facility] [address] 81184- 8348 Mar, [facility] [id number] [place] [address] 51810- 1081 Jan, Shortness of breath R06.02 and Bipolar disorder with psychotic features F31.9 [facility] [id number] [place] [address] 60275- 6374 Jan, [facility] [id number] [place] [address] 76337- 8294 Jan, Increased intracranial pressure G93.2 ; Visual disturbance H53.9 and Bipolar II disorder F31.81 [facility] [id number] [place] [address] 39107- 9607 Jan, [facility] [id number] [place] [address] 19419- 8063 Jan, [facility] [id number] [place] [address] 27157- 7745 Jan, [facility] [id number] [place] [address] 51128- 7800 Jan, Acquired hypothyroidism E03.9 ; Depression F32.9 and Insomnia G47.00 [facility] [id number] [place] [address] 95923- 6951 Jan, Exertional dyspnea R06.09 ; Heart palpitations R00.2 ; Hyperlipidemia, unspecified hyperlipidemia type E78.5 ; Hypothyroidism, unspecified type E03.9 and Hypokalemia E87.6 [facility] [id number] [place] [address] 76649- 6674 Dec, PTSD (post-traumatic stress disorder) F43.10 ; Depression F32.9 ; Insomnia G47.00 and Bipolar disorder with psychotic features F31.9 [facility] [address] [place] [id number] [place] [address] 94290- 0714 Dec, Increased intracranial pressure G93.2 [facility] [id number] [place] [address] 06285- 4976 Dec, [facility] [id number] [place] [address] 58665- 1026 Dec, Shortness of breath R06.02 [facility] [address] 53572- 7067 05 Jan, 2016 Visual disturbance H53.9 and Headache, unspecified headache type R51 [facility] [address] 38805- 2215 Dec, Insomnia G47.00 [facility] [id number] [place] [address] 53107- 6567 Dec, Murmur R01.1 [facility] [id number] [place] [address] 36986- 8552 Dec, Murmur R01.1 ; Tunnel vision, unspecified laterality H53.489 ; Orthostatic hypertension I10 ; Shortness of breath R06.02 and Tachycardia R00.0 [facility] [id number] [place] [address] 46833- 5579 Dec, [facility] [id number] [place] [address] 45667- 6355 Dec, Hypothyroid E03.9 and Bipolar 1 disorder F31.9 [facility] [id number] [place] [address] 30422- 5603 Dec, Bipolar 1 disorder F31.9 [facility] [id number] [place] [address] 60401- 6796 Dec, [facility] [id number] [place] [address] 56022- 3826 October, Acquired hypothyroidism E03.9 ; Depression F32.9 and Insomnia G47.00 [facility] [id number] [place] [address] 92541- 8000 October, [facility] [id number] [place] [address] 01230- 6593 October, Bipolar 1 disorder F31.9 ; PTSD (post-traumatic stress disorder) F43.10 and Social phobia F40.10 [facility] [id number] [place] [address] 89501- 8871 Oct, Bipolar 1 disorder F31.9 and Insomnia G47.00 [facility] [id number] [place] [address] 82480- 6760 Oct, [facility] [id number] [place] [address] 24300- 3173 Oct, [facility] [id number] [place] [address] 82624- 3078 Aug, Hypothyroid E03.9 [facility] [id number] [place] [address] 61548- 3289 Aug, Encounter for therapeutic drug level monitoring Z51.81 and 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 [facility] [id number] [place] [address] 21672- 7113 Aug, Encounter for therapeutic drug level monitoring Z51.81 [facility] [id number] [place] [address] 84694- 2915 Aug, Acquired hypothyroidism E03.9 ; Leg pain M79.606 and Bipolar 1 disorder F31.9 [facility] [address] [place] [address] 91743- 5178 Aug, [facility] [id number] [place] [address] 72649- 3409 Aug, [facility] [address] [place] [address] 52049- 6405 Jul, Thyroid disorder E07.9 [facility] [id number] [place] [address] 04622- 0768 Jul, Rash R21 ; Abnormal LFTs R94.5 ; Acquired hypothyroidism E03.9 ; Sleep apnea in adult G47.33 and Fatty liver K76.0 [facility] [id number] [place] [address] 54882- 9838 Jun, [facility] [address] 89393- 3443 Jun, [facility] [address] 52250- 3188 Jun, Bipolar II disorder F31.81 and Social phobia, generalized F40.11 [facility] [address] [place] [address] 57658- 0184 Mar, Bipolar II disorder 296.89 and Social phobia 300.23 [facility] [address] [place] [address] 95989- 2642 Dec, [facility] [address] 73902- 9078 Dec, [facility] [address] 09742- 5506 Dec, Bipolar II disorder in partial or unspecified remission 296.89 and Social phobia, generalized 300.23 [facility] [id number] [place] [address] 25997- 1853 Oct, 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 [facility] [id number] [place] [address] 10022- 0231 Oct, [facility] [address] 30026- 5281 Oct, [facility] [address] 47050- 3426 Aug, [facility] [address] 80289- 4727 Aug, [facility] [place] [facility] [address] [id number] [place] [address]- 8085 10 Aug, 2014 [facility] [place] [facility] [address] [id number] [place] [address]- 6590 Aug, [facility] [place] [facility] [address] [id number] [place] [address]- 9449 Aug, [facility] [place] [facility] [address] [id number] [place] [address]- 2684 Aug, [facility] [place] [facility] [address] [id number] [place] [address]- 8471 Aug, [facility] [place] [facility] [address] [id number] [place] [address]- 0300 Aug, [facility] [place] [facility] [address] [id number] [place] [address]- 9369 Jul, [facility] [place] [facility] [address] [id number] [place] [address]- 5241 Jul, [facility] [place] [facility] [address] [id number] [place] [address]- 0673 Jul, [facility] [place] [facility] [address] [id number] [place] [address]- 5437 Jul, [facility] [place] [facility] [address] [id number] [place] [address]- 0593 Jul, [facility] [place] [facility] [address] [id number] [place] [address]- 4576 Jul, [facility] [place] [facility] [address] [id number] [place] 9824 Jun, [facility] [place] [facility] [address] [id number] [place] [address]- 7912 Jun, [facility] [place] [facility] [address] [id number] [place] [address]- 4100 Jun, [facility] [place] [facility] [address] [id number] [place] [address]- 1470 Jun, [facility] [place] [facility] [address] [id number] [place] [address]- 6737 Jun, [facility] [place] [facility] [address] [id number] [place] [address]- 0412 Jun, [facility] [place] [facility] [address] [facility] [id number] [place] [address]- 2058 Jun, [facility] [place] [facility] [address] [id number] [place] [address]- 7056 Jun, [facility] [place] [facility] [address] [id number] [place] [address]- 7301 Jun, [facility] [place] [facility] [address] [id number] [place] [address]- 0623 Jun, [facility] [place] [facility] [address] [id number] [place] [address]- 4598 Jun, [facility] [place] [facility] [address] [id number] [place] [address]- 8253 Jun, [facility] [place] [facility] [address] [id number] [place] [address]- 8396 Jun, [facility] [place] [facility] [address] [id number] [place] [address]- 1618 Jun, [facility] [place] [facility] [address] [id number] [place] [address] Jun, [facility] [place] [facility] [address] [id number] [place] [address] Jun, [facility] [place] [facility] [address] [id number] [place] [address] May, [facility] [place] [facility] [address] [id number] [place] [address] May, [facility] [place] [facility] [address] [id number] [place] [address] May, [facility] [place] [facility] [address] [id number] [place] [address] May, [facility] [place] [facility] [address] [id number] [place] [address] May, [facility] [place] [facility] [address] [id number] [place] [address] May, [facility] [place] [facility] [address] [id number] [place] [address] Apr, [facility] [place] [facility] [address] [id number] [place] [address] Apr, [facility] [place] [facility] [address] [id number] [place] [address] Apr, [facility] [place] [facility] [address] [id number] [place] [address] Apr, [facility] [place] [facility] [address] [id number] [place] [address] Apr, [facility] [place] [facility] [address] [id number] [place] [address] Apr, [facility] [place] [facility] [address] [id number] [place] [address] Mar, [facility] [place] [facility] [address] [id number] [place] [address] Mar, [facility] [place] [facility] [address] [id number] [place] [address] Mar, [facility] [place] [facility] [address] [id number] [place] [address] Mar, [facility] [place] [facility] [address] [id number] [place] [address] Jan, [facility] [place] [facility] [address] [id number] [place] [address] Jan, [facility] [place] [facility] [address] [id number] [place] [address] Jan, [facility] [place] [facility] [address] [id number] [place] [address] Jan, [facility] [place] [facility] [address] [id number] [place] [address] Jan, [facility] [place] [facility] [address] [address] [id number] [place] [address] Jan, [facility] [place] [facility] [address] [id number] [place] [address] Dec, [facility] [place] [facility] [address] [id number] [place] [address] Dec, [facility] [place] [facility] [address] [id number] [place] [address] Dec, [facility] [place] [facility] [address] [id number] [place] [address] Dec, [facility] [place] [facility] [address] [id number] [place] [address] Dec, [facility] [place] [facility] [address] [id number] [place] [address] Dec, [facility] [place] [facility] [address] [id number] [place] [address] October, [facility] [place] [facility] [address] [id number] [place] [address] October, [facility] [place] [facility] [address] [id number] [place] [address] October, [facility] [place] [facility] [address] [id number] [place] [address] October, [facility] [place] [facility] [address] [id number] [place] [address] October, [facility] [place] [facility] [address] [id number] [place] [address] October, [facility] [place] [facility] [address] [id number] [place] [address] October, [facility] [place] [facility] [address] [id number] [place] [address] October, [facility] [place] [facility] [address] [id number] [place] [address] Oct, [facility] [place] [facility] [address] [id number] [place] [address] 4862 Oct, [facility] [place] [facility] [address] [id number] [place] [address] Oct, [facility] [place] [facility] [address] [id number] [place] [address] Oct, [facility] [place] [facility] [address] [id number] [place] [address] Oct, [facility] [place] [facility] [address] [facility] [id number] [place] [address] Aug, [facility] [place] [facility] [address] [id number] [place] [address] Aug, [facility] [place] [facility] [address] [id number] [place] [address]40 Aug, [facility] [place] [facility] [address] [facility] [id number] [place] [address]- 8161 Aug, [facility] [place] [facility] [address] [id number] [place] [address] Aug, [facility] [place] [facility] [address] [id number] [place] [address] Aug, [facility] [place] [facility] [address] [id number] [place] [address] 39[address] Jul, [facility] [place] [facility] [address] [id number] [place] [address] Jul, [facility] [place] [facility] [address] [facility] [id number] [place] [address] Jul, [facility] [place] [facility] [address] [id number] [place] [address] Jul, [facility] [place] [facility] [address] [id number] [place] [address] 9615 Jul, [facility] [place] [facility] [address] [id number] [place] [address] 1627 Jul, [facility] [place] [facility] [address] [id number] [place] [address]274 Jun, [facility] [place] [facility] [address] [id number] [place] [address] Jun, [facility] [place] [facility] [address] [id number] [place] [address] 3014 Jun, [facility] [place] [facility] [address] [id number] [place] [address] Jun, [facility] [place] [facility] [address] [id number] [place] [address]- 2074 Jun, [facility] [place] [facility] [address] [id number] [place] [address]- 4679 Jun, [facility] [place] [facility] [address] [id number] [place] [address] May, [facility] [place] [facility] [address] [id number] [place] [address]81 May, [facility] [place] [facility] [address] [id number] [place] [address] 6645 Apr, [facility] [place] [facility] [address] [id number] [place] [address] Apr, [facility] [place] [facility] [address] [id number] [place] [address]- 9369 Apr, [facility] [place] [facility] [address] [id number] [place] [address] 1714 Apr, [facility] [place] [facility] [address] [id number] [place] [address]- [address] Apr, [facility] [place] [facility] [address] [id number] [place] [address] 8582 Apr, [facility] [place] [facility] [address] [id number] [place] [address]- [address] 18 Apr, 2013 [facility] [place] [facility] [address] [id number] [place] [address] Apr, [facility] [place] [facility] [address] [id number] [place] [address]- 6125 Apr, [facility] [place] [facility] [address] [id number] [place] [address]- 6513 Apr, [facility] [place] [facility] [address] [id number] [place] [address] 4016 Apr, [facility] [place] [facility] [address] [id number] [place] [address]- 5559 23 Mar, 2013 [facility] [place] [facility] [address] [id number] [place] [address]- 4098 20 Mar, 2012 [facility] [place] [facility] [address] [id number] [place] [address]- 9227 20 Mar, 2013 [facility] [place] [facility] [address] [id number] [place] [address]- 3808 14 Mar, 2013 [facility] [place] [facility] [address] [id number] [place] [address] 3877 12 Mar, 2013 [facility] [place] [facility] [address] [id number] [place] [address]- [address]46 06 Mar, 2012 [facility] [place] [facility] [address] [id number] [place] [address]- 1357 06 Mar, 2012 [facility] [place] [facility] [address] [id number] [place] [address]394 19 Jan, 2013 [facility] [place] [facility] [address] [id number] [place] [address]- 1377 14 Jan, 2013 [facility] [place] [facility] [address] [id number] [place] [address] 8645 Jan, [facility] [address] [id number] [place] [address] 9557 Jan, [facility] [address] [id number] [place] [address]751 Jan, [facility] [address] [id number] [place] [address]- 8537 Jan, [facility] [address] [id number] [place] [address]- 9286 Jan, [facility] [address] [id number] [place] [address]- 5890 Dec, [facility] [address] [id number] [place] [address]- 5433 Dec, [facility] [address] [id number] [place] [address]- 4191 Dec, [facility] [address] [id number] [place] [address]- 0803 Dec, [facility] [address] [id number] [place] [address]- 4673 Dec, [facility] [address] [id number] [place] [address]- 9810 Dec, [facility] [address] [id number] [place] [address]- 6734 October, [facility] [address] [id number] [place] [address]- 0832 October, [facility] [address] [id number] [place] [address]- 2390 October, [facility] [address] [id number] [place] [address]- 1107 October, [facility] [address] [id number] [place] [address]- 4547 Oct, [facility] [address] [id number] [place] [address]- 3375 09 Oct, 2012 [facility] [place] [facility] [address] [id number] [place] [address]- 5672 27 Aug, 2012 [facility] [place] [facility] [address] [id number] [place] [address] Aug, [facility] [place] [facility] [address] [id number] [place] [address]- 0657 Aug, [facility] [place] [facility] [address] [id number] [place] [address]- 8629 Aug, [facility] [place] [facility] [address] [id number] [place] [address]- 2231 Aug, [facility] [place] [facility] [address] [facility] [id number] [place] [address]- 3255 Aug, [facility] [place] [facility] [address] [id number] [place] [address]- 9838 Aug, [facility] [place] [facility] [address] [id number] [place] [address]- 7944 Aug, [facility] [place] [facility] [address] [facility] [id number] [place] [address]- 2094 Aug, [facility] [place] [facility] [address] [id number] [place] [address]- 3820 Aug, [facility] [place] [facility] [address] [id number] [place] [address]- 5985 Aug, [facility] [place] [facility] [address] [id number] [place] [address]- 0591 08 Aug, 2012 [facility] [place] [facility] [address] [id number] [place] [address]- 1884 04 Aug, 2012 [facility] [place] [facility] [address] [facility] [id number] [place] [address]- 2934 Aug, [facility] [place] [facility] [address] [id number] [place] [address]- 8[address] Jul, [facility] [id number] [address]- 2483 Jul, [facility] [id number] [address]- 1783 Jul, [facility] [id number] [address]- 5417 Jul, [facility] [id number] [address]- 7959 Jun, [facility] [id number] [place] [address]- 8779 Jun, [facility] [id number] [place] [address]- 5269 Jun, [facility] [id number] [place] [address]- 6539 Jun, [facility] [address] [id number] [place] [address]- 7994 May, [facility] [address] [id number] [place] [address]- 8557 May, IMMUNIZATIONS Vaccine Route Administration Date Status ARISTADA 882 MG/2.5 ML (PT'S OWN) IM Intramuscular Jun 21, 2017 Administered SOCIAL HISTORY Never Assessed REASON FOR VISIT Injection-Raza ZAMBRANO PLAN OF CARE Activity Details Follow Up 4 Weeks Reason: VITAL SIGNS MEDICATIONS Unknown Medications RESULTS No Results PROCEDURES Procedure Date Ordered Result Body Site ARISTADA 882 MG/2.5 ML (PT'S OWN) Jun 21, 2017 THER/PROPH/DIAG INJ, SC/IM Jun 21, 2017 INSTRUCTIONS MEDICATIONS ADMINISTERED No Known Medications [...]
--- OUTSIDE RECORDS SUMMARY | 2018-09-02 18:20 | XMS REPORT ---
Author Author AMARI HOWARD [facility] [place] Address [address] [place] [address] Care Team Providers Care Digital Pre Press Operator Name Role Phone AMARI HOWARD Unavailable PROBLEMS Type Condition ICD9-CM Code [id number] Code Onset Dates Condition Status SNOMED Code Problem Undifferentiated schizophrenia F20.3 Active 878463834 Problem Chronic posttraumatic stress disorder F43.12 Active 290055143 Problem Panic disorder with agoraphobia F40.01 Active 07010649 Problem Other chronic pain G89.29 Active 55572028 Problem Fatty liver K76.0 Active 767880152 Problem Hypothyroid E03.9 Active 65580031 Problem Abuse, drug or alcohol F19.10 Active 01378516 Problem Sleep apnea in adult G47.33 Active 18737529 Problem Panic disorder F41.0 Active 986491061 Problem Depressive disorder, not elsewhere classified F32.9 Active 97347407 Problem BMI 50.0-59.9, adult Z68.43 Active 356919358 Problem Panic disorder without agoraphobia F41.0 Active 19081087 Problem Social phobia F40.10 Active 11187418 Problem Restless legs syndrome G25.81 Active 085720189 Problem Obesity E66.9 Active 432125348 Problem Neuropathy G62.9 Active 280916455 Problem Tunnel vision, unspecified laterality H53.489 Active 423205382 Problem Tachycardia R00.0 Active 1455073 Problem Encounter for therapeutic drug level monitoring Z51.81 Active 457486030 Problem Murmur R01.1 Active 387699722 Problem Orthostatic hypertension I10 Active 96197460 Problem Shortness of breath R06.02 Active 035312832 ALLERGIES No Information ENCOUNTERS Encounter Location Date Diagnosis [facility] [place] [address] [facility] [id number] [address] Dec, [facility] [place] [address] [facility] [id number] [place] [address] 92654- 2711 Dec, [facility] [place] [id number] [place] [address] 70349- 9939 Dec, [facility] [place] [id number] [place] [address] 97179- 0636 Dec, Undifferentiated schizophrenia F20.3 [facility] [place] [id number] [place] [address] 72414- 3313 Dec, [facility] [place] [id number] [place] [address] 10001- 5300 Dec, [facility] [place] [id number] [place] [address] 35186- 0237 Dec, BMI 50.0-59.9, adult Z68.43 ; Undifferentiated schizophrenia F20.3 ; Panic disorder without agoraphobia F41.0 and Chronic posttraumatic stress disorder F43.12 [facility] [place] [id number] [place] [address] 46048- 8139 Dec, [facility] [place] [id number] [place] [address] 67690- 6383 October, [facility] [place] [id number] [place] [address] 68102- 1212 October, Pain in right shoulder M25.511 and Other chronic pain G89.29 [facility] [place] [id number] [place] [address] 75614- 9292 October, Hypothyroid E03.9 [facility] [place] [id number] [place] [address] 71160- 5594 Oct, Undifferentiated schizophrenia F20.3 [facility] [place] [id number] [place] [address] 56614- 4423 Oct, [facility] [place] [id number] [place] [address] 81386- 1423 Oct, [facility] [place] [id number] [place] [address] 32553- 0539 Aug, Undifferentiated schizophrenia F20.3 [facility] [place] [address] [address] 9038 Aug, [facility] [place] [id number] [place] [address] 89526- 2930 Aug, Undifferentiated schizophrenia F20.3 ; Panic disorder with agoraphobia F40.01 ; Chronic posttraumatic stress disorder F43.12 and BMI 50.0- 59.9, adult Z68.43 [facility] [place] [id number] [place] [address] 95054- 8676 05 Aug, 2017 [facility] [place] [id number] [place] [address] 59713- 1031 Aug, [facility] [place] [id number] [place] [address] 52404- 5101 Aug, Undifferentiated schizophrenia F20.3 [facility] [place] [id number] [place] [address] 68096- 8863 Aug, Hypothyroid E03.9 [facility] [place] [id number] [place] [address] 40469- 0081 Jul, Undifferentiated schizophrenia F20.3 [facility] [place] [id number] [place] [address] 08593- 9261 Jul, [facility] [place] [id number] [place] [address] 42615- 9206 Jul, Undifferentiated schizophrenia F20.3 ; Chronic posttraumatic stress disorder F43.12 ; Panic disorder with agoraphobia F40.01 and BMI 50.0-59.9, adult Z68.43 [facility] [place] [id number] [place] [address] 18159- 5018 Jul, [facility] [place] [id number] [place] [address] 26670- 7326 Jul, Acute pain of right shoulder M25.511 ; High risk medication use Z79.899 ; Needle stick injury W27.3XXA ; Hypothyroid E03.9 and BMI 50.0-59.9 , adult Z68.43 [facility] [place] [id number] [place] [address] 68478- 1828 Jun, Undifferentiated schizophrenia F20.3 [facility] [place] [id number] [place] [address] 78660- 4242 14 Jun, 2017 Undifferentiated schizophrenia F20.3 ; Panic disorder without agoraphobia F41.0 ; Chronic posttraumatic stress disorder F43.12 and BMI 50.0-59.9, adult Z68.43 [facility] [place] [id number] [place] [address] 08399- 1869 May, [facility] [place] [id number] [place] [address] 97490- 0373 May, [facility] [place] [id number] [place] [address] 23492- 7391 May, Undifferentiated schizophrenia F20.3 [facility] [place] [id number] [place] [address] 79485- 1789 May, [facility] [place] [id number] [place] [address] 54790- 0056 May, [facility] [place] [id number] [place] [address] 66820- 9366 May, Hypothyroid E03.9 [facility] [place] [id number] [place] [address] 63957- 1057 13 May, 2017 [facility] [place] [id number] [place] [address] 65037- 9460 10 May, 2017 [facility] [place] [id number] [place] [address] 05514- 0134 07 May, 2017 Chronic posttraumatic stress disorder F43.12 ; Panic disorder with agoraphobia F40.01 ; Undifferentiated schizophrenia F20.3 ; BMI 40.0-44.9, adult Z68.41 and Obesity E66.9 [facility] [place] [id number] [place] [address] 84771- 7793 May, Shortness of breath R06.02 [facility] [place] [id number] [place] [address] 35700- 3837 May, [facility] [place] [id number] [place] [address] 30856- 1126 Apr, Undifferentiated schizophrenia F20.3 [facility] [place] [id number] [place] [address] 28163- 8488 Apr, [facility] [place] [id number] [place] [address] 46290- 9838 Apr, [facility] [place] [id number] [place] [address] 19723- 8844 Mar, Undifferentiated schizophrenia F20.3 ; Panic disorder without agoraphobia F41.0 and Chronic posttraumatic stress disorder F43.12 [facility] [place] [id number] [place] [address] 34677- 2736 Mar, Undifferentiated schizophrenia F20.3 [facility] [place] [id number] [place] [address] 10788- 4254 18 Mar, 2017 [facility] [place] [id number] [place] [address] 61448- 1109 08 Mar, 2017 [facility] [place] [id number] [place] [address] 49810- 0555 Mar, [facility] [place] [id number] [place] [address] 91369- 1689 Jan, Undifferentiated schizophrenia F20.3 [facility] [place] [address] [address]- 3798 Jan, [facility] [place] [id number] [place] [address] 40259- 8871 Jan, [facility] [place] [address] [address]- 0029 Jan, [id number] [id number] Dec, Needle stick injury W27.3XXA [facility] [place] [id number] [place] [address] 76955- 5795 Dec, Needle stick injury W27.3XXA [facility] [place] [id number] [place] [address] 12639- 9309 Dec, Undifferentiated schizophrenia F20.3 [facility] [place] [id number] [place] [address] 45255- 8215 Dec, [facility] [place] [id number] [place] [address] 11110- 6076 Dec, [facility] [place] [id number] [place] [address] 89423- 9089 Dec, Undifferentiated schizophrenia F20.3 ; Panic disorder with agoraphobia F40.01 and Chronic posttraumatic stress disorder F43.12 [facility] [place] [id number] [place] [address] 81492- 9282 Dec, [facility] [place] [id number] [place] [address] 41015- 1267 October, [facility] [place] [id number] [place] [address] 03259- 2094 October, Undifferentiated schizophrenia F20.3 [facility] [place] [id number] [place] [address] 24261- 0356 October, [facility] [place] [id number] [place] [address] 10513- 5134 October, [facility] [place] [id number] [place] [address] 27634- 1685 Oct, Undifferentiated schizophrenia F20.3 ; Panic disorder with agoraphobia F40.01 ; Chronic posttraumatic stress disorder F43.12 and Obesity E66.9 [facility] [place] [id number] [place] [address] 72928- 2808 Oct, [facility] [place] [id number] [place] [address] 14908- 2915 Oct, [facility] [place] [address], [place] [address]- 3827 Aug, Undifferentiated schizophrenia F20.3 [facility] [place] [address], [place] [address]- 3585 Aug, [facility] [place] [id number] [place] [address] 28936- 2944 Aug, Muscle spasm M62.838 [facility] [place] [id number] [place] [address] 96451- 4576 Aug, Undifferentiated schizophrenia F20.3 [facility] [place] [id number] [place] [address] 38305- 8894 Aug, Undifferentiated schizophrenia F20.3 ; Panic disorder with agoraphobia F40.01 ; Chronic posttraumatic stress disorder F43.12 ; High risk medication use Z79.899 and Social phobia F40.10 [facility] [place] [id number] [place] [address] 99242- 5456 Aug, Undifferentiated schizophrenia F20.3 [facility] [place] [id number] [place] [address] 03977- 4540 Aug, [facility] [place] [id number] [place] [address] 31345- 3273 14 Aug, 2016 Acute non-recurrent maxillary sinusitis J01.00 [facility] [place] [id number] [place] [address] 25734- 2580 Aug, [facility] [place] [id number] [place] [address] 86975- 7890 Aug, [facility] [place] [id number] [place] [address] 60257- 8113 Jul, Undifferentiated schizophrenia F20.3 [facility] [place] [address], [place] [address]- 6632 Jul, Schizophrenia, undifferentiated F20.3 ; Social phobia F40.10 ; Post-traumatic stress disorder F43.10 ; Panic disorder F41.0 and Depressive disorder, not elsewhere classified F32.9 [facility] [place] [id number] [place] [address] 42024- 0112 Jul, [facility] [place] [id number] [place] [address] 00325- 2907 Jul, Schizophrenia, undifferentiated F20.3 ; Social phobia F40.10 ; Post-traumatic stress disorder F43.10 ; Panic disorder F41.0 and Depressive disorder, not elsewhere classified F32.9 [facility] [place] [id number] [place] [address] 82543- 7294 Jul, [facility] [place] [id number] [place] [address] 25063- 9668 Jul, Undifferentiated schizophrenia F20.3 ; Panic disorder with agoraphobia F40.01 ; Social phobia F40.10 ; Obesity E66.9 and Chronic posttraumatic stress disorder F43.12 [facility] [place] [id number] [place] [address] 96752- 3084 Jun, [facility] [place] [id number] [place] [address] 52366- 2037 Jun, [facility] [place] [id number] [place] [address] 48538- 7744 Jun, Dental caries K02.9 [facility] [place] [id number] [place] [address] 55694- 5472 Jun, Undifferentiated schizophrenia F20.3 [facility] [place] [id number] [place] [address] 41463- 6963 May, [facility] [place] [id number] [place] [address] 67391- 4653 May, Undifferentiated schizophrenia F20.3 ; Panic disorder with agoraphobia F40.01 and Chronic post-traumatic stress disorder (PTSD) F43.12 [facility] [place] [id number] [place] [address] 00013- 7809 May, [facility] [place] [id number] [place] [address] 54122- 1133 May, Undifferentiated schizophrenia F20.3 [facility] [place] [id number] [place] [address] 19458- 6696 10 May, 2016 [facility] [place] [id number] [place] [address] 70831- 7276 07 May, 2016 Dental examination Z01.20 [facility] [place] [id number] [place] [address] 78016- 8213 Apr, Undifferentiated schizophrenia F20.3 ; PTSD (post-traumatic stress disorder) F43.10 and Obesity E66.9 [facility] [place] [id number] [place] [address] 88290- 1058 Apr, [facility] [place] [id number] [place] [address] 11026- 7295 Mar, [facility] [place] [id number] [place] [address] 99163- 7344 Mar, [facility] [place] [id number] [place] [address] 82860- 0554 Jan, Shortness of breath R06.02 and Bipolar disorder with psychotic features F31.9 [facility] [place] [id number] [place] [address] 82593- 1719 Jan, [facility] [place] [id number] [place] [address] 48891- 2913 Jan, Increased intracranial pressure G93.2 ; Visual disturbance H53.9 and Bipolar II disorder F31.81 [facility] [place] [id number] [place] [address] 34619- 5310 Jan, [facility] [place] [id number] [place] [address] 32807- 3077 Jan, [facility] [place] [id number] [place] [address] 26023- 3755 Jan, [place] [id number] [place] [address] 07220- 9145 Jan, Acquired hypothyroidism E03.9 ; Depression F32.9 and Insomnia G47.00 [place] [id number] [place] [address] 38944- 1108 Jan, Exertional dyspnea R06.09 ; Heart palpitations R00.2 ; Hyperlipidemia, unspecified hyperlipidemia type E78.5 ; Hypothyroidism, unspecified type E03.9 and Hypokalemia E87.6 [place] [address] [address]- [address] Dec, PTSD (post-traumatic stress disorder) F43.10 ; Depression F32.9 ; Insomnia G47.00 and Bipolar disorder with psychotic features F31.9 [place] [address] 468[address]- 9878 Dec, Increased intracranial pressure G93.2 [place] [address] 770[address]- [address] Dec, [place] [address] 78771- 1196 Dec, Shortness of breath R06.02 [place] [address] [id number] [place] [address] 02570- 0109 Dec, Visual disturbance H53.9 and Headache, unspecified headache type R51 [place] [address] 56[address]- [address] Dec, Insomnia G47.00 [place] [address] 93072- 1972 Dec, Murmur R01.1 [place] [address] 36991- 7031 Dec, Murmur R01.1 ; Tunnel vision, unspecified laterality H53.489 ; Orthostatic hypertension I10 ; Shortness of breath R06.02 and Tachycardia R00.0 [facility] [place] [id number] [place] [address] 12602- 1028 Dec, [facility] [place] [address] 434[address]- 2406 Dec, Hypothyroid E03.9 and Bipolar 1 disorder F31.9 [place] [address] [id number] [place] [address] 48072- 4806 Dec, Bipolar 1 disorder F31.9 [facility] [place] [address] 6[address]- [address]85 Dec, [place] [address] 98797- 278[address] October, Acquired hypothyroidism E03.9 ; Depression F32.9 and Insomnia G47.00 [place] [address] [id number] [place] [address] 13073- 5254 October, [facility] [address] [id number] [place] [address] 33263- 1799 October, Bipolar 1 disorder F31.9 ; PTSD (post-traumatic stress disorder) F43.10 and Social phobia F40.10 [place] [id number] [place] [address] 18782- 0505 Oct, Bipolar 1 disorder F31.9 and Insomnia G47.00 [place] [address] [id number] [place] [address] 60648- 0698 Oct, [facility] [place] [id number] [place] [address] 07278- 5986 Oct, [place] [address] [id number] [place] [address] 22078- 4361 Aug, Hypothyroid E03.9 [facility] [place] [id number] [place] [address] 54567- 7586 Aug, Encounter for therapeutic drug level monitoring Z51.81 and 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 [place] [address] [id number] [place] [address] 34599- 3232 17 Sep, 2015 Encounter for therapeutic drug level monitoring Z51.81 [facility] [place] [address] 14[address]- 6596 Aug, Acquired hypothyroidism E03.9 ; Leg pain M79.606 and Bipolar 1 disorder F31.9 [facility] [place] [address] 41575- 6782 Aug, [facility] [place] [address] 94407- 5374 Aug, [facility] [place] [address] 10086- 6738 Jul, Thyroid disorder E07.9 [facility] [place] [address] 81413- 8721 Jul, Rash R21 ; Abnormal LFTs R94.5 ; Acquired hypothyroidism E03.9 ; Sleep apnea in adult G47.33 and Fatty liver K76.0 [facility] [place] [address] 9[address]34- 1433 Jun, [facility] [facility] [place] [address] [address] Jun, [facility] [place] [id number] [place] [address]68 Jun, Bipolar II disorder F31.81 and Social phobia, generalized F40.11 [facility] [place] [id number] [place] [address] 6618 Mar, Bipolar II disorder 296.89 and Social phobia 300.23 [facility] [place] [address] [address] Dec, [facility] [place] [address] [address]- [address] Dec, [facility] [place] [address] [address] Dec, Bipolar II disorder in partial or unspecified remission 296.89 and Social phobia, generalized 300.23 [facility] [place] [id number] [address] Oct, 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 [facility] [address] [address] Oct, [facility] [place] [id number] [address] Oct, [facility] [place] [address] [address] Aug, [facility] [place] [address] [address] Aug, [facility] [place] [address], [place] [address] Aug, [facility] [place] [address] [address] Aug, [facility] [place] [address], [place] [address] Aug, [facility] [place] [address] [address] 8[address] Aug, [facility] [place] [address], [place] [address]- 0065 Aug, [facility] [place] [address], [place] [address] 8595 Aug, [facility] [place] [address] [address] Jul, [facility] [place] [address] [address] Jul, [facility] [place] [address] [address] Jul, [facility] [place] [facility] [address] [facility] [id number] [place] [address]- 0769 Jul, [facility] [address] [id number] [place] [address]- 9686 Jul, [facility] [place] [facility] [address] [id number] [place] [address]- 7414 Jul, [facility] [address] [id number] [place] [address]- 7609 Jun, [facility] [place] [facility] [address] [id number] [place] [address]- 8415 Jun, [facility] [place] [facility] [address] [id number] [place] [address] Jun, [facility] [place] [facility] [address] [id number] [place] [address]- 6442 Jun, [facility] [place] [facility] [address] [id number] [place] [address]- 5462 Jun, [facility] [address] [id number] [place] [address]- 0547 Jun, [facility] [place] [facility] [address] [id number] [place] [address]- 6266 Jun, [facility] [place] [facility] [address] [id number] [place] [address]- 4654 Jun, [facility] [place] [facility] [address] [id number] [place] [address]- 4149 Jun, [facility] [place] [facility] [address] [id number] [place] [address]- 0794 Jun, [facility] [place] [facility] [address] [id number] [place] [address]- 0329 Jun, [facility] [place] [facility] [address] [id number] [place] [address]- 9323 Jun, [facility] [place] [facility] [address] [id number] [place] [address]- 4653 Jun, [facility] [place] [facility] [address] [id number] [place] [address]- 5096 Jun, [facility] [place] [facility] [address] [id number] [place] [address]- 7047 Jun, [facility] [place] [facility] [address] [id number] [place] [address] Jun, [facility] [place] [facility] [address] [id number] [place] [address]- 8147 May, [facility] [place] [facility] [address] [id number] [place] [address]- 0188 May, [facility] [place] [facility] [address] [id number] [place] [address]- 0104 May, [facility] [place] [facility] [address] [id number] [place] [address]- 2664 May, [facility] [place] [facility] [address] [id number], [place] [address]- 7077 May, [facility] [place] [facility] [address] [id number] [place] [address]- 1214 May, [facility] [place] [facility] [address] [id number], [place] [address]- 6796 Apr, [facility] [place] [facility] [address] [id number], [place] [address]- 3687 Apr, [facility] [place] [facility] [address] [id number], [place] [address]- 8849 Apr, [facility] [place] [facility] [address] [id number], [place] [address]- 8771 Apr, [facility] [place] [facility] [address] [id number], [place] [address]- 9687 Apr, [facility] [place] [facility] [address] [id number], [place] [address]- 4042 Apr, [facility] [place] [facility] [address] [id number] [place] [address]- 8007 Mar, [facility] [place] [facility] [address] [id number] [place] [address]- 5401 Mar, [facility] [place] [facility] [address] [id number] [place] [address]- 2949 Mar, [facility] [place] [facility] [address] [id number] [place] [address]- 7784 Mar, [facility] [place] [facility] [address] [id number] [place] [address]- 1860 Jan, [facility] [place] [facility] [address] [id number] [place] [address]- 4611 Jan, [facility] [place] [facility] [address] [id number] [place] [address]- 3772 Jan, [facility] [place] [facility] [address] [id number] [place] [address]- 2220 Jan, [facility] [place] [facility] [address] [id number] [place] [address]- 3591 Jan, [facility] [place] [facility] [address] [id number] [place] [address]- 0699 Jan, [facility] [place] [facility] [address] [id number] [place] [address]- 8670 Dec, [facility] [place] [facility] [address] [id number] [place] [address]- 8554 Dec, [facility] [place] [facility] [address] [id number] [place] [address]- 6329 Dec, [facility] [place] [facility] [address] [id number] [place] [address]- 2767 Dec, [facility] [place] [facility] [address] [id number] [place] [address]- 3174 Dec, [facility] [place] [facility] [address] [id number] [place] [address]- 1597 Dec, [facility] [place] [facility] [address] [id number] [place] [address]- 2415 October, [facility] [place] [facility] [address] [id number] [place] [address]- 0326 October, [facility] [place] [facility] [address] [id number] [place] [address]- 9899 October, [facility] [place] [facility] [address] [id number] [place] [address]- 1700 October, [facility] [place] [facility] [address] [id number] [place] [address]- 0862 October, [facility] [place] [facility] [address] [id number] [place] [address]- 1761 October, [facility] [place] [facility] [address] [id number] [place] [address]- 4826 October, [facility] [place] [facility] [address] [id number] [place] [address]- 4099 October, [facility] [place] [facility] [address] [id number] [place] [address]- 1556 Oct, [facility] [place] [facility] [address] [id number] [place] [address]- 0125 Oct, [facility] [place] [facility] [address] [id number] [place] [address]- 9764 Oct, [facility] [place] [facility] [address] [id number] [place] [address]- 6771 Oct, [facility] [place] [facility] [address] [id number] [place] [address]- 5896 Oct, [facility] [place] [facility] [address] [id number] [place] [address]- 0426 Aug, [facility] [place] [facility] [address] [id number] [place] [address]- 3986 Aug, [facility] [place] [facility] [address] [id number] [place] [address]- 4923 Aug, [facility] [address] [id number] [place] [address]- 7756 Aug, [facility] [place] [facility] [address] [id number] [place] 3814 Aug, [facility] [place] [facility] [address] [id number] [place] [address]- 7165 Aug, [facility] [place] [facility] [address] [id number] [place] [address]- 1865 Jul, [facility] [place] [facility] [address] [id number] [place] [address]- 2033 Jul, [facility] [address] [id number] [place] [address]- 0499 Jul, [facility] [address] [id number] [place] [address]- 1601 Jul, [facility] [place] [facility] [address] [id number] [place] [address]- 3836 Jul, [facility] [address] [id number] [place] [address]- 5041 Jul, [facility] [address] [id number] [place] [address]- 6638 Jun, [facility] [address] [id number], [place] [address]- 1590 Jun, [facility] [place] [facility] [address] [id number], [place] [address]- 9834 Jun, [facility] [place] [facility] [address] [id number] [place] [address]- 9260 Jun, [facility] [place] [facility] [address] [id number] [place] [address]- 3511 Jun, [facility] [place] [facility] [address] [id number] [place] [address]- 5117 Jun, [facility] [place] [facility] [address] [id number] [place] [address]- 0953 May, [facility] [place] [facility] [address] [id number] [place] [address]- 4527 May, [facility] [place] [facility] [address] [id number] [place] [address]- 2131 Apr, [facility] [place] [facility] [address] [id number] [place] [address]- 3349 Apr, [facility] [place] [facility] [address] [id number] [place] [address]- 9130 Apr, [facility] [place] [facility] [address] [id number] [place] [address]- 7526 Apr, [facility] [place] [facility] [address] [id number] [place] [address]- 8682 Apr, [facility] [place] [facility] [address] [id number] [place] [address]- 8082 Apr, [facility] [place] [facility] [address] [id number] [place] [address]- 0054 Apr, [facility] [place] [facility] [address] [id number] [place] [address]- 9118 Apr, [facility] [place] [facility] [address] [id number] [place] [address]- 7476 Apr, [facility] [place] [facility] [address] [id number] [place] [address]- 8385 Apr, [facility] [place] [facility] [address] [id number] [place] [address]- 6544 Apr, [facility] [place] [facility] [address] [id number] [place] [address]- 6503 Mar, [facility] [place] [facility] [address] [id number] [place] [address]- 0315 Mar, [facility] [place] [facility] [address] [id number] [place] [address]- 4642 Mar, [facility] [place] [facility] [address] [id number] [place] [address]- 8226 14 Mar, 2013 [facility] [place] [facility] [address] [id number] [place] [address]- 3929 Mar, [facility] [place] [facility] [address] [id number] [place] [address]- 9805 Mar, [facility] [place] [facility] [address] [id number] [place] [address]- 0273 Mar, [facility] [place] [facility] [address] [id number] [place] [address]- 8588 Jan, [facility] [place] [facility] [address] [id number] [place] [address]- 7381 Jan, [facility] [place] [facility] [address] [id number] [place] [address]- 4993 Jan, [facility] [place] [facility] [address] [id number] [place] [address]- 5144 Jan, [facility] [place] [facility] [address] [id number] [place] [address]- 7626 Jan, [facility] [place] [facility] [address] [id number] [place] [address]- 1874 Jan, [facility] [place] [facility] [address] [id number] [place] [address]- 9296 Jan, [facility] [place] [facility] [address] [id number] [place] [address]- 5361 Dec, [facility] [place] [facility] [address] [id number] [place] [address]- 6698 Dec, [facility] [place] [facility] [address] [id number] [place] [address]- 1572 Dec, [facility] [place] [facility] [address] [id number] [place] [address]- 1460 Dec, [facility] [place] [facility] [address] [id number] [place] [address]- 5972 08 Dec, 2012 [facility] [address] [id number] [place] [address]- 4678 08 Dec, 2012 [facility] [address] [id number] [place] [address]- 6211 October, [facility] [address] [id number] [place] [address]- 5422 October, [facility] [address] [id number] [place] [address]- 9835 October, [facility] [address] [id number] [place] [address]- 8021 October, [facility] [address] [id number] [place] [address]- 3075 Oct, [facility] [address] [id number] [place] [address]- 1855 Oct, [facility] [address] [id number] [place] [address]- 2191 Aug, [facility] [address] [id number] [place] [address]- 5696 Aug, [facility] [address] [id number] [place] [address]- 8625 Aug, [facility] [address] [id number] [place] [address]- 9502 Aug, [facility] [place] [facility] [address] [id number] [place] [address]- 4515 18 Aug, 2012 [facility] [place] [facility] [address] [id number] [place] [address]- 3890 Aug, [facility] [place] [facility] [address] [id number] [place] [address]- 1088 Aug, [facility] [address] [id number] [place] [address]- 7812 Aug, [facility] [address] [id number] [place] [address]- 2388 Aug, [facility] [place] [facility] [address] [id number] [place] [address]- 5866 Aug, [facility] [place] [facility] [address] [id number] [place] [address]- 4956 Aug, [facility] [place] [facility] [address] [id number] [place] [address] 2546 Aug, [facility] [address] [id number] [place] [address] 2540 Aug, [facility] [place] [facility] [address] [id number] [place] [address]- 9400 Aug, [facility] [address] [id number] [place] [address]- 5289 Jul, [facility] [address] [id number] [place] [address]- 1297 Jul, [facility] [address] [id number] [place] [address]- 2458 Jul, [facility] [address] [id number] [place] [address]- 5209 Jul, [facility] [place] [facility] [address] [id number] [place] [address]- 6091 Jun, [facility] [place] [facility] [address] [id number] [place] [address]- 254 Jun, [facility] [place] [facility] [address] [id number] [place] [address] 2546 Jun, [facility] [place] [facility] [address] [id number] [place] [address]- 2541 Jun, [facility] [place] [facility] [address] [id number] [place] [address]- 2544 May, [facility] [place] [facility] [address] [facility] [id number] [place] [address] May, IMMUNIZATIONS Vaccine Route Administration Date Status ARISTADA 882 MG/2.5 ML (PT'S OWN) IM Intramuscular Aug 24, 2017 Administered SOCIAL HISTORY Never Assessed REASON FOR VISIT InjectionJjournotRN PLAN OF CARE VITAL SIGNS MEDICATIONS Unknown Medications RESULTS No Results PROCEDURES Procedure Date Ordered Result Body Site ARISTADA 882 MG/2.5 ML (PT'S OWN) Aug 24, 2017 THER/PROPH/DIAG INJ, SC/IM Aug 24, 2017 INSTRUCTIONS MEDICATIONS ADMINISTERED No Known Medications [...]
--- OUTSIDE RECORDS SUMMARY | 2018-09-02 18:20 | XMS REPORT ---
Author Author DIGNA GUERRERO [facility] Address [address] [place] [address] Care Team Providers Care [employer] T[employer] Name Role Phone DIGNA GUERRERO Unavailable PROBLEMS Type Condition ICD9-CM Code [id number] Code Onset Dates Condition Status SNOMED Code Problem Undifferentiated schizophrenia F20.3 Active 020947491 Problem Chronic posttraumatic stress disorder F43.12 Active 478488906 Problem Panic disorder with agoraphobia F40.01 Active 54296785 Problem Other chronic pain G89.29 Active 34111250 Problem Fatty liver K76.0 Active 943990612 Problem Hypothyroid E03.9 Active 33080481 Problem Abuse, drug or alcohol F19.10 Active 22850260 Problem Sleep apnea in adult G47.33 Active 02051519 Problem Panic disorder F41.0 Active 542170863 Problem Depressive disorder, not elsewhere classified F32.9 Active 58965268 Problem BMI 50.0-59.9, adult Z68.43 Active 048442859 Problem Panic disorder without agoraphobia F41.0 Active 76067083 Problem Social phobia F40.10 Active 13775200 Problem Restless legs syndrome G25.81 Active 391823759 Problem Obesity E66.9 Active 152194486 Problem Neuropathy G62.9 Active 907487500 Problem Tunnel vision, unspecified laterality H53.489 Active 573749916 Problem Tachycardia R00.0 Active 7852412 Problem Encounter for therapeutic drug level monitoring Z51.81 Active 133017551 Problem Murmur R01.1 Active 672393352 Problem Orthostatic hypertension I10 Active 04034876 Problem Shortness of breath R06.02 Active [id number] ALLERGIES No Information ENCOUNTERS Encounter Location Date Diagnosis [facility] [address] [facility] [id number] [address] Dec, [facility] [address] [facility] [place] [id number] [place] [address] 76419- 6097 Dec, [facility] [id number] [place] [address] 07645- 8720 Dec, [facility] [id number] [place] [address] 51615- 7121 Dec, Undifferentiated schizophrenia F20.3 [facility] [id number] [place] [address] 01024- 4047 Dec, [facility] [id number] [place] [address] 34106- 2358 Dec, [facility] [id number] [place] [address] 86322- 6921 Dec, BMI 50.0-59.9, adult Z68.43 ; Undifferentiated schizophrenia F20.3 ; Panic disorder without agoraphobia F41.0 and Chronic posttraumatic stress disorder F43.12 [facility] [id number] [place] [address] 47683- 6034 Dec, [facility] [id number] [place] [address] 68936- 3237 October, [facility] [id number] [place] [address] 71374- 0453 October, Pain in right shoulder M25.511 and Other chronic pain G89.29 [facility] [id number] [place] [address] 38569- 9711 October, Hypothyroid E03.9 [facility] [id number] [place] [address] 76020- 3752 Oct, Undifferentiated schizophrenia F20.3 [facility] [id number] [place] [address] 17422- 3390 Oct, [facility] [id number] [place] [address] 74668- 3043 Oct, [facility] [id number] [place] [address] 45566- 4054 Aug, Undifferentiated schizophrenia F20.3 [facility] [address], [place] [address] 2622 Aug, [facility] [id number] [place] [address] 63453- 6430 Aug, Undifferentiated schizophrenia F20.3 ; Panic disorder with agoraphobia F40.01 ; Chronic posttraumatic stress disorder F43.12 and BMI 50.0- 59.9, adult Z68.43 [facility] [id number] [place] [address] 43455- 9944 05 Aug, 2017 [facility] [id number] [place] [address] 24259- 0260 Aug, [facility] [id number] [place] [address] 04025- 1198 Aug, Undifferentiated schizophrenia F20.3 [facility] [id number] [place] [address] 48555- 1925 Aug, Hypothyroid E03.9 [facility] [id number] [place] [address] 30029- 5573 Jul, Undifferentiated schizophrenia F20.3 [facility] [id number] [place] [address] 21945- 7223 Jul, [facility] [address] [place] [address] 45534- 4544 Jul, Undifferentiated schizophrenia F20.3 ; Chronic posttraumatic stress disorder F43.12 ; Panic disorder with agoraphobia F40.01 and BMI 50.0-59.9, adult Z68.43 [facility] [address] [place] [address] 14473- 1148 Jul, [facility] [address] [place] [address] 73242- 0921 Jul, Acute pain of right shoulder M25.511 ; High risk medication use Z79.899 ; Needle stick injury W27.3XXA ; Hypothyroid E03.9 and BMI 50.0-59.9 , adult Z68.43 [facility] [address] [place] [address] 14277- 9299 Jun, Undifferentiated schizophrenia F20.3 [facility] [id number] [place] [address] 37911- 2582 14 Jun, 2017 Undifferentiated schizophrenia F20.3 ; Panic disorder without agoraphobia F41.0 ; Chronic posttraumatic stress disorder F43.12 and BMI 50.0-59.9, adult Z68.43 [facility] [id number] [place] [address] 32475- 0202 May, [facility] [id number] [place] [address] 39094- 9837 May, [facility] [id number] [place] [address] 76704- 4983 May, Undifferentiated schizophrenia F20.3 [facility] [id number] [place] [address] 12485- 4050 May, [facility] [id number] [place] [address] 71814- 2946 May, [facility] [id number] [place] [address] 71570- 4516 May, Hypothyroid E03.9 [facility] [id number] [place] [address] 12440- 7642 13 May, 2017 [facility] [id number] [place] [address] 66013- 7993 10 May, 2017 [facility] [id number] [place] [address] 00650- 7331 07 May, 2017 Chronic posttraumatic stress disorder F43.12 ; Panic disorder with agoraphobia F40.01 ; Undifferentiated schizophrenia F20.3 ; BMI 40.0-44.9, adult Z68.41 and Obesity E66.9 [facility] [id number] [place] [address] 95496- 6376 May, Shortness of breath R06.02 [facility] [address] [place] [address] 39392- 1041 May, [facility] [address] [place] [address] 12200- 9375 Apr, Undifferentiated schizophrenia F20.3 [facility] [id number] [place] [address] 68046- 8437 Apr, [facility] [id number] [place] [address] 52298- 5306 Apr, [facility] [id number] [place] [address] 22735- 4234 Mar, Undifferentiated schizophrenia F20.3 ; Panic disorder without agoraphobia F41.0 and Chronic posttraumatic stress disorder F43.12 [facility] [id number] [place] [address] 13215- 5218 Mar, Undifferentiated schizophrenia F20.3 [facility] [address] [place] [address] 07194- 4613 18 Mar, 2017 [facility] [id number] [place] [address] 19569- 0593 08 Mar, 2017 [facility] [address] [place] [address] 28295- 9325 Mar, [facility] [address] [place] [address] 71069- 1758 Jan, Undifferentiated schizophrenia F20.3 [facility] [address], [place] [address]- 5041 Jan, [facility] [id number] [place] [address] 33860- 2516 Jan, [facility] [address], [place] [address]- 3433 Jan, [id number] [id number] Dec, Needle stick injury W27.3XXA [facility] [id number] [place] [address] 11098- 5340 Dec, Needle stick injury W27.3XXA [facility] [id number] [place] [address] 09773- 1003 Dec, Undifferentiated schizophrenia F20.3 [facility] [id number] [place] [address] 96916- 9854 Dec, [facility] [id number] [place] [address] 19382- 8235 Dec, [facility] [id number] [place] [address] 75103- 8296 Dec, Undifferentiated schizophrenia F20.3 ; Panic disorder with agoraphobia F40.01 and Chronic posttraumatic stress disorder F43.12 [facility] [id number] [place] [address] 10211- 2626 Dec, [facility] [id number] [place] [address] 58635- 2928 October, [facility] [id number] [place] [address] 91659- 5778 October, Undifferentiated schizophrenia F20.3 [facility] [id number] [place] [address] 76309- 5028 October, [facility] [id number] [place] [address] 37876- 8015 October, [facility] [address] [place] [address] 60467- 0502 Oct, Undifferentiated schizophrenia F20.3 ; Panic disorder with agoraphobia F40.01 ; Chronic posttraumatic stress disorder F43.12 and Obesity E66.9 [facility] [id number] [place] [address] 65652- 0733 Oct, [facility] [id number] [place] [address] 57082- 9378 Oct, [facility] [address], [place] [address]- 7818 Aug, Undifferentiated schizophrenia F20.3 [facility] [address], [place] [address]- 1836 Aug, [facility] [id number] [place] [address] 98946- 9645 Aug, Muscle spasm M62.838 [facility] [id number] [place] [address] 72637- 3526 Aug, Undifferentiated schizophrenia F20.3 [facility] [id number] [place] [address] 11270- 5977 Aug, Undifferentiated schizophrenia F20.3 ; Panic disorder with agoraphobia F40.01 ; Chronic posttraumatic stress disorder F43.12 ; High risk medication use Z79.899 and Social phobia F40.10 [facility] [address] [place] [address] 64848- 2883 Aug, Undifferentiated schizophrenia F20.3 [facility] [id number] [place] [address] 59025- 0504 Aug, [facility] [address] [place] [address] 17046- 0446 14 Aug, 2016 Acute non-recurrent maxillary sinusitis J01.00 [facility] [address] [place] [address] 94371- 0362 Aug, [facility] [address] [place] [address] 57231- 6759 Aug, [facility] [id number] [place] [address] 27399- 3014 Jul, Undifferentiated schizophrenia F20.3 [facility] [address], [place] [address]- 0202 Jul, Schizophrenia, undifferentiated F20.3 ; Social phobia F40.10 ; Post-traumatic stress disorder F43.10 ; Panic disorder F41.0 and Depressive disorder, not elsewhere classified F32.9 [facility] [id number] [place] [address] 46933- 8329 Jul, [facility] [id number] [place] [address] 97084- 8396 Jul, Schizophrenia, undifferentiated F20.3 ; Social phobia F40.10 ; Post-traumatic stress disorder F43.10 ; Panic disorder F41.0 and Depressive disorder, not elsewhere classified F32.9 [facility] [id number] [place] [address] 01395- 2954 Jul, [facility] [id number] [place] [address] 17933- 8205 Jul, Undifferentiated schizophrenia F20.3 ; Panic disorder with agoraphobia F40.01 ; Social phobia F40.10 ; Obesity E66.9 and Chronic posttraumatic stress disorder F43.12 [facility] [id number] [place] [address] 48765- 9695 Jun, [facility] [id number] [place] [address] 98494- 1222 Jun, [facility] [id number] [place] [address] 35271- 9212 Jun, Dental caries K02.9 [facility] [id number] [place] [address] 03942- 9817 Jun, Undifferentiated schizophrenia F20.3 [facility] [id number] [place] [address] 83435- 6256 May, [facility] [id number] [place] [address] 74376- 9798 May, Undifferentiated schizophrenia F20.3 ; Panic disorder with agoraphobia F40.01 and Chronic post-traumatic stress disorder (PTSD) F43.12 [facility] [id number] [place] [address] 63080- 9846 May, [facility] [id number] [place] [address] 01550- 4302 May, Undifferentiated schizophrenia F20.3 [facility] [id number] [place] [address] 42723- 3349 10 May, 2016 [facility] [id number] [place] [address] 62282- 1895 07 May, 2016 Dental examination Z01.20 [facility] [id number] [place] [address] 08304- 8097 Apr, Undifferentiated schizophrenia F20.3 ; PTSD (post-traumatic stress disorder) F43.10 and Obesity E66.9 [facility] [id number] [place] [address] 66490- 6232 Apr, [facility] [id number] [place] [address] 67691- 0165 Mar, [facility] [id number] [place] [address] 98538- 0972 Mar, [facility] [id number] [place] [address] 30979- 7023 Jan, Shortness of breath R06.02 and Bipolar disorder with psychotic features F31.9 [facility] [id number] [place] [address] 74035- 5127 Jan, [facility] [id number] [place] [address] 33771- 2214 Jan, Increased intracranial pressure G93.2 ; Visual disturbance H53.9 and Bipolar II disorder F31.81 [facility] [id number] [place] [address] 41391- 9380 Jan, [facility] [id number] [place] [address] 90283- 7103 Jan, [facility] [id number] [place] [address] 37099- 7397 Jan, [place] [id number] [place] [address] 92522- 6678 Jan, Acquired hypothyroidism E03.9 ; Depression F32.9 and Insomnia G47.00 [place] [id number] [place] [address] 14392- 0372 Jan, Exertional dyspnea R06.09 ; Heart palpitations R00.2 ; Hyperlipidemia, unspecified hyperlipidemia type E78.5 ; Hypothyroidism, unspecified type E03.9 and Hypokalemia E87.6 [place] [address] 84300- 7737 Dec, PTSD (post-traumatic stress disorder) F43.10 ; Depression F32.9 ; Insomnia G47.00 and Bipolar disorder with psychotic features F31.9 [place] [address] 91186- 7827 Dec, Increased intracranial pressure G93.2 [place] [address] 14709- 5558 Dec, [place] [address] 96662- 6379 Dec, Shortness of breath R06.02 [place] [id number] [place] [address] 58030- 1969 Dec, Visual disturbance H53.9 and Headache, unspecified headache type R51 [place] [address] 47354- 3428 Dec, Insomnia G47.00 [place] [address] 90615- 9551 Dec, Murmur R01.1 [place] [address] 60421- 2821 Dec, Murmur R01.1 ; Tunnel vision, unspecified laterality H53.489 ; Orthostatic hypertension I10 ; Shortness of breath R06.02 and Tachycardia R00.0 [facility] [id number] [place] [address] 42214- 5766 Dec, [facility] [address] 32457- 6752 Dec, Hypothyroid E03.9 and Bipolar 1 disorder F31.9 [place] [id number] [place] [address] 62942- 8094 Dec, Bipolar 1 disorder F31.9 [facility] [address] 27922- 0892 Dec, [place] [address] 37889- 1050 October, Acquired hypothyroidism E03.9 ; Depression F32.9 and Insomnia G47.00 [place] [id number] [place] [address] 29239- 8378 October, [place] [id number] [place] [address] 77346- 4483 October, Bipolar 1 disorder F31.9 ; PTSD (post-traumatic stress disorder) F43.10 and Social phobia F40.10 [place] [id number] [place] [address] 99542- 9316 Oct, Bipolar 1 disorder F31.9 and Insomnia G47.00 [place] [id number] [place] [address] 84946- 5285 Oct, [facility] [id number] [place] [address] 26818- 3649 Oct, [place] [id number] [place] [address] 92770- 5521 Aug, Hypothyroid E03.9 [facility] [id number] [place] [address] 87763- 6049 Aug, Encounter for therapeutic drug level monitoring Z51.81 and 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.899 [place] [id number] [place] [address] 11421- 9943 17 Sep, 2015 Encounter for therapeutic drug level monitoring Z51.81 [facility] [address] 93454- 1713 Aug, Acquired hypothyroidism E03.9 ; Leg pain M79.606 and Bipolar 1 disorder F31.9 [facility] [address] 68639- 2819 Aug, [facility] [address] 80178- 2321 Aug, [facility] [address] 38286- 6479 Jul, Thyroid disorder E07.9 [facility] [address] 41362- 1635 Jul, Rash R21 ; Abnormal LFTs R94.5 ; Acquired hypothyroidism E03.9 ; Sleep apnea in adult G47.33 and Fatty liver K76.0 [facility] [address] 41434- 6732 Jun, [facility] [address] 36056- 8815 Jun, [facility] [id number] [place] [address] 85098- 5957 Jun, Bipolar II disorder F31.81 and Social phobia, generalized F40.11 [facility] [id number] [place] [address] 37492- 8669 Mar, Bipolar II disorder 296.89 and Social phobia 300.23 [facility] [address] 29090- 2950 Dec, [facility] [address] 83224- 5406 Dec, [facility] [address] 20609- 6604 Dec, Bipolar II disorder in partial or unspecified remission 296.89 and Social phobia, generalized 300.23 [facility] [id number]- 9590 Oct, 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 [facility] [address], [place] [address]- 0845 Oct, [facility] [id number] 8714 Oct, [facility] [address], [place] [address]- 0943 Aug, [facility] [address]- 0154 Aug, [facility] [address], [place] [address]- 2392 Aug, [facility] [address], [place] [address]- 9310 Aug, [facility] [address], [place] [address]- 5559 Aug, [facility] [address], [place] [address]- 9096 Aug, [facility] [address], [place] [address]- 4385 Aug, [facility] [address], [place] [address]- 4144 Aug, [facility] [address]- 0166 Jul, [facility] [address]- 1507 Jul, [facility] [address] 2756 Jul, [facility] [place] [facility] [address] [facility] [place] [id number] [place] [address]- 4570 Jul, [facility] [address] [id number] [place] [address]- 1459 Jul, [facility] [place] [facility] [address] [id number] [place] [address]- 8104 Jul, [facility] [address] [id number] [place] [address]- 6395 Jun, [facility] [place] [facility] [address] [id number] [place] [address]- 0587 Jun, [facility] [place] [facility] [address] [id number] [place]- 3779 Jun, [facility] [place] [facility] [address] [id number] [place] [address]- 1394 Jun, [facility] [place] [facility] [address] [id number] [place] [address] Jun, [facility] [address] [id number] [place] [address] Jun, [facility] [place] [facility] [address] [id number] [place] [address] Jun, [facility] [place] [facility] [address] [id number] [place] [address] Jun, [facility] [place] [facility] [address] [id number] [place] [address] Jun, [facility] [place] [facility] [address] [id number] [place] [address] Jun, [facility] [place] [facility] [address] [id number] [place] [address] Jun, [facility] [place] [facility] [address] [id number] [place] [address] Jun, [facility] [place] [facility] [address] [id number] [place] [address] Jun, [facility] [place] [facility] [address] [id number] [place] [address] Jun, [facility] [place] [facility] [address] [id number] [place] [address] Jun, [facility] [place] [facility] [address] [id number] [place] [address] Jun, [facility] [place] [facility] [address] [id number] [place] [address] May, [facility] [place] [facility] [address] [id number] [place] [address] May, [facility] [place] [facility] [address] [id number] [place] [address] May, [facility] [place] [facility] [address] [id number] [place] [address] May, [facility] [place] [facility] [address] [id number], [place] [address] May, [facility] [place] [facility] [address] [id number] [place] [address] May, [facility] [place] [facility] [address] [id number], [place] [address] Apr, [facility] [place] [facility] [address] [id number], [place] [address] Apr, [facility] [place] [facility] [address] [id number], [place] [address] Apr, [facility] [place] [facility] [address] [id number], [place] [address] 98[address] Apr, [facility] [place] [facility] [address] [id number], [place] [address] Apr, [facility] [place] [facility] [address] [id number], [place] [address] 78[address] Apr, [facility] [place] [facility] [address] [id number] [place] [address] Mar, [facility] [place] [facility] [address] [id number] [place] [address] 4756 Mar, [facility] [place] [facility] [address] [id number] [place] [address] 9[address] Mar, [facility] [place] [facility] [address] [id number] [place] [address]- 9639 Mar, [facility] [place] [facility] [address] [id number] [place] [address] 2647 Jan, [facility] [place] [facility] [address] [id number] [place] [address]- 9832 Jan, [facility] [place] [facility] [address] [id number] [place] [address]- 6557 Jan, [facility] [place] [facility] [address] [id number] [place] [address]- 6025 Jan, [facility] [place] [facility] [address] [id number] [place] [address]- 5287 Jan, [facility] [place] [facility] [address] [id number] [place] [address]- 0545 Jan, [facility] [place] [facility] [address] [id number] [place] [address]- 69[address] Dec, [facility] [place] [facility] [address] [id number] [place] [address]- 7108 Dec, [facility] [place] [facility] [address] [id number] [place] [address]- 1219 Dec, [facility] [place] [facility] [address] [id number] [place] [address]- 6402 Dec, [facility] [place] [facility] [address] [id number] [place] [address] 1118 Dec, [facility] [place] [facility] [address] [id number] [place] [address]- 1436 Dec, [facility] [place] [facility] [address] [id number] [place] [address]- 1006 October, [facility] [place] [facility] [address] [id number] [place] [address]- 6692 October, [facility] [place] [facility] [address] [id number] [place] [address]- 2973 October, [facility] [place] [facility] [address] [id number] [place] [address]- 4627 October, [facility] [place] [facility] [address] [id number] [place] [address] 96[address] October, [facility] [place] [facility] [address] [id number] [place] [address]- 5657 October, [facility] [place] [facility] [address] [id number] [place] [address]- 9178 October, [facility] [place] [facility] [address] [id number] [place] [address] 8542 October, [facility] [place] [facility] [address] [id number] [place] [address]- 2957 Oct, [facility] [place] [facility] [address] [id number] [place] [address]- 9521 Oct, [facility] [place] [facility] [address] [id number] [place] [address] 8989 Oct, [facility] [place] [facility] [address] [id number] [place] [address] 1976 Oct, [facility] [place] [facility] [address] [id number] [place] [address]- 5851 Oct, [facility] [place] [facility] [address] [id number] [place] [address] 5391 Aug, [facility] [place] [facility] [address] [id number] [place] [address] 8189 Aug, [facility] [place] [facility] [address] [id number] [place] [address]- 1138 Aug, [facility] [address] [id number] [place] [address]- 9286 Aug, [facility] [place] [facility] [address] [id number] [place] [address] Aug, [facility] [place] [facility] [address] [id number] [place] [address]- 0700 Aug, [facility] [place] [facility] [address] [id number] [place] [address]- 0239 Jul, [facility] [place] [facility] [address] [id number] [place] [address]- 9169 Jul, [facility] [address] [id number] [place] [address]- 9069 Jul, [facility] [address] [id number] [place] [address] 6862 Jul, [facility] [place] [facility] [address] [id number] [place] [address]- 3392 Jul, [facility] [address] [id number] [place] [address]- 2287 Jul, [facility] [address] [id number] [place] [address]- 6569 Jun, [facility] [address] [id number], [place] [address] Jun, [facility] [place] [facility] [address] [id number], [place] [address]- 2574 Jun, [facility] [place] [facility] [address] [id number] [place] [address]- 7011 Jun, [facility] [place] [facility] [address] [id number] [place] [address]- 1418 Jun, [facility] [place] [facility] [address] [id number] [place] [address]- 5164 Jun, [facility] [place] [facility] [address] [id number] [place] [address]- 2991 May, [facility] [place] [facility] [address] [id number] [place] [address]- 6990 May, [facility] [place] [facility] [address] [id number] [place] [address]- 5007 Apr, [facility] [place] [facility] [address] [id number] [place] [address]- 2824 Apr, [facility] [place] [facility] [address] [id number] [place] [address]- 3276 Apr, [facility] [place] [facility] [address] [id number] [place] [address]- 2120 Apr, [facility] [place] [facility] [address] [id number] [place] [address]- 3965 Apr, [facility] [place] [facility] [address] [id number] [place] [address]- 8877 Apr, [facility] [place] [facility] [address] [id number] [place] [address]- 4263 Apr, [facility] [place] [facility] [address] [id number] [place] [address]- 6338 Apr, [facility] [place] [facility] [address] [id number] [place] [address]- 4922 Apr, [facility] [place] [facility] [address] [id number] [place] [address]- 8186 Apr, [facility] [place] [facility] [address] [id number] [place] [address]- 2413 Apr, [facility] [place] [facility] [address] [id number] [place] [address]- 8415 Mar, [facility] [place] [facility] [address] [id number] [place] [address]- 3977 Mar, [facility] [place] [facility] [address] [id number] [place] [address]- 8051 Mar, [facility] [place] [facility] [address] [id number] [place] [address]- 9488 14 Mar, 2013 [facility] [place] [facility] [address] [id number] [place] [address]- 8127 Mar, [facility] [place] [facility] [address] [id number] [place] [address]- 5386 Mar, [facility] [place] [facility] [address] [id number] [place] [address]- 7423 Mar, [facility] [place] [facility] [address] [id number] [place] [address]- 0651 Jan, [facility] [place] [facility] [address] [id number] [place] [address]- 4489 Jan, [facility] [place] [facility] [address] [id number] [place] [address]- 0206 Jan, [facility] [place] [facility] [address] [id number] [place] [address]- 3510 Jan, [facility] [place] [facility] [address] [id number] [place] [address]- 0989 Jan, [facility] [place] [facility] [address] [id number] [place] [address]- 1567 Jan, [facility] [place] [facility] [address] [id number] [place] [address]- 2967 Jan, [facility] [place] [facility] [address] [id number] [place] [address]- 4687 Dec, [facility] [place] [facility] [address] [id number] [place] [address]- 7359 Dec, [facility] [place] [facility] [address] [id number] [place] [address]- 0999 Dec, [facility] [place] [facility] [address] [id number] [place] [address]- 5619 Dec, [facility] [place] [facility] [address] [id number] [place] [address]- 8958 08 Dec, 2012 [facility] [address] [id number] [place] [address]- 5082 08 Dec, 2012 [facility] [address] [id number] [place] [address]- 6022 October, [facility] [address] [id number] [place] [address]- 4993 October, [facility] [address] [id number] [place] [address]- 8565 October, [facility] [address] [id number] [place] [address]- 7448 October, [facility] [address] [id number] [place] [address]- 6814 Oct, [facility] [address] [id number] [place] [address]- 0961 Oct, [facility] [address] [id number] [place] [address]- 8749 Aug, [facility] [address] [id number] [place] [address]- 5139 Aug, [facility] [address] [id number] [place] [address]- 3569 Aug, [facility] [address] [id number] [place] [address]- 5144 Aug, [facility] [place] [facility] [address] [id number] [place] [address]- 5985 18 Aug, 2012 [facility] [place] [facility] [address] [id number] [place] [address]- 0497 Aug, [facility] [place] [facility] [address] [id number] [place] [address]- 7060 Aug, [facility] [address] [id number] [place] [address]- 7581 Aug, [facility] [address] [id number] [place] [address]- 7431 Aug, [facility] [place] [facility] [address] [id number] [place] [address]- 1846 Aug, [facility] [place] [facility] [address] [id number] [place] [address]- 1406 Aug, [facility] [place] [facility] [address] [id number] [place] [address] 2546 Aug, [facility] [address] [id number] [place] [address] 2540 Aug, [facility] [place] [facility] [address] [id number] [place] [address]- 9541 Aug, [facility] [address] [id number] [place] [address]- 4128 Jul, [facility] [address] [id number] [place] [address]- 2899 Jul, [facility] [address] [id number] [place] [address]- 8871 Jul, [facility] [address] [id number] [place] [address]- 7925 Jul, [facility] [place] [facility] [address] [id number] [place] [address]- 5746 Jun, [facility] [place] [facility] [address] [id number] [place] [address]- 2549 Jun, [facility] [place] [facility] [address] [id number] [place] [address] 2546 Jun, [facility] [place] [facility] [address] [id number] [place] [address]- 2548 Jun, [facility] [place] [facility] [address] [id number] [place] [address]- 2547 May, [facility] [place] [facility] [address] [facility] [place] [id number] [place] [id number] May, IMMUNIZATIONS No Known Immunizations SOCIAL HISTORY Never Assessed REASON FOR VISIT PALS IN- PLAN OF CARE VITAL SIGNS MEDICATIONS Unknown [...]
--- OUTSIDE RECORDS SUMMARY | 2018-09-02 18:21 | XMS REPORT ---
Author Author AMARI HOWARD [facility] Address [address] [place] [address] Care Team Providers Care Repair Specialist Name Role Phone AMARI HOWARD Unavailable PROBLEMS Type Condition ICD9-CM Code [id number] Code Onset Dates Condition Status SNOMED Code Problem Undifferentiated schizophrenia F20.3 Active 663242406 Problem Chronic posttraumatic stress disorder F43.12 Active 267802152 Problem Panic disorder with agoraphobia F40.01 Active 34587229 Problem Other chronic pain G89.29 Active 57887926 Problem Fatty liver K76.0 Active 967908654 Problem Hypothyroid E03.9 Active 54699048 Problem Abuse, drug or alcohol F19.10 Active 93641852 Problem Sleep apnea in adult G47.33 Active 58448934 Problem Panic disorder F41.0 Active 659673456 Problem Depressive disorder, not elsewhere classified F32.9 Active 01788179 Problem BMI 50.0-59.9, adult Z68.43 Active 014810683 Problem Panic disorder without agoraphobia F41.0 Active 74920957 Problem Social phobia F40.10 Active 25949563 Problem Restless legs syndrome G25.81 Active 993062629 Problem Obesity E66.9 Active 076109942 Problem Neuropathy G62.9 Active 072846518 Problem Tunnel vision, unspecified laterality H53.489 Active 861776602 Problem Tachycardia R00.0 Active 4053021 Problem Encounter for therapeutic drug level monitoring Z51.81 Active 988677006 Problem Murmur R01.1 Active 125972469 Problem Orthostatic hypertension I10 Active 71455470 Problem Shortness of breath R06.02 Active [id number] ALLERGIES No Information ENCOUNTERS Encounter Location Date Diagnosis [facility] [address] [facility] [id number] [address] Dec, [facility] [address] [facility] [id number] [place] [address] 54387- 2079 Dec, [facility] [id number] [place] [address] 53595- 8566 October, [facility] [id number] [place] [address] 50746- 3462 October, Pain in right shoulder M25.511 and Other chronic pain G89.29 [facility] [id number] [place] [address] 14927- 1392 October, Hypothyroid E03.9 [facility] [id number] [place] [address] 09875- 2698 Oct, Undifferentiated schizophrenia F20.3 [facility] [id number] [place] [address] 19083- 6959 Oct, [facility] [id number] [place] [address] 74187- 4780 Oct, [facility] [id number] [place] [address] 98692- 1604 Aug, Undifferentiated schizophrenia F20.3 [facility] [id number] [place] [address] 82382- 1501 Aug, [facility] [id number] [place] [address] 93766- 5492 Aug, Undifferentiated schizophrenia F20.3 ; Panic disorder with agoraphobia F40.01 ; Chronic posttraumatic stress disorder F43.12 and BMI 50.0- 59.9, adult Z68.43 [facility] [id number] [place] [address] 59745- 0341 Aug, [facility] [id number] [place] [address] 23597- 9690 Aug, [facility] [id number] [place] [address] 41599- 2201 Aug, Undifferentiated schizophrenia F20.3 [facility] [id number] [place] [address] 66446- 9605 Aug, Hypothyroid E03.9 [facility] [address] [place] [address] 64276- 5314 Jul, Undifferentiated schizophrenia F20.3 [facility] [id number] [place] [address] 22854- 4286 Jul, [facility] [id number] [place] [address] 98372- 4925 Jul, Undifferentiated schizophrenia F20.3 ; Chronic posttraumatic stress disorder F43.12 ; Panic disorder with agoraphobia F40.01 and BMI 50.0-59.9, adult Z68.43 [facility] [id number] [place] [address] 13025- 8742 15 Jul, 2017 [facility] [id number] [place] [address] 57079- 2556 Jul, Acute pain of right shoulder M25.511 ; High risk medication use Z79.899 ; Needle stick injury W27.3XXA ; Hypothyroid E03.9 and BMI 50.0-59.9 , adult Z68.43 [facility] [id number] [place] [address] 85653- 9161 Jun, Undifferentiated schizophrenia F20.3 [facility] [id number] [place] [address] 28881- 0849 14 Jun, 2017 Undifferentiated schizophrenia F20.3 ; Panic disorder without agoraphobia F41.0 ; Chronic posttraumatic stress disorder F43.12 and BMI 50.0-59.9, adult Z68.43 [facility] [address], [place] [address] 8071 May, [facility] [id number] [place] [address] 03482- 3723 May, [facility] [address] [place] [address] 90111- 6976 May, Undifferentiated schizophrenia F20.3 [facility] [id number] [address]- 7373 May, [facility] [address] [place] [address] 88456- 3209 May, [facility] [id number], [place] [address]- 6490 15 May, 2017 Hypothyroid E03.9 [facility] [id number] [place] [address] 20054- 6768 13 May, 2017 [facility] [address] [place] [address] 63730- 0073 10 May, 2017 [facility] [id number] [place] [address] 84291- 4206 07 May, 2017 Chronic posttraumatic stress disorder F43.12 ; Panic disorder with agoraphobia F40.01 ; Undifferentiated schizophrenia F20.3 ; BMI 40.0-44.9, adult Z68.41 and Obesity E66.9 [facility] [address], [place] [address]- 1143 May, Shortness of breath R06.02 [facility] [id number] [place] [address] 78198- 8652 May, [facility] [address], [place] [address]- 2116 Apr, Undifferentiated schizophrenia F20.3 [facility] [address], [place] [address]- 5680 Apr, [facility] [address], [place] [address]- 3857 Apr, [facility] [id number] [place] [address] 46261- 2168 Mar, Undifferentiated schizophrenia F20.3 ; Panic disorder without agoraphobia F41.0 and Chronic posttraumatic stress disorder F43.12 [facility] [address] [place] [address] 95901- 2693 Mar, Undifferentiated schizophrenia F20.3 [facility] [id number] [address]- 8417 Mar, [facility] [address] [facility] [id number] [place] [address] 38449- 0335 Mar, [facility] [id number] [place] [address] 47999- 0249 Mar, [facility] [id number] [place] [address] 89943- 3749 Jan, Undifferentiated schizophrenia F20.3 [facility] [id number] [place] [address] 49488- 2270 Jan, [facility] [id number] [place] [address] 01288- 6797 Jan, [facility] [id number] [place] [address] 18115- 8695 Jan, [id number] [id number] Dec, Needle stick injury W27.3XXA [facility] [address] [place] [address] 48514- 4755 Dec, Needle stick injury W27.3XXA [facility] [address], [place] [address]- 8044 Dec, Undifferentiated schizophrenia F20.3 [facility] [address], [place] [address]- 3880 Dec, [facility] [id number], [place] [address]- 4469 Dec, [facility] [id number] [place] [address] 76323- 6489 Dec, Undifferentiated schizophrenia F20.3 ; Panic disorder with agoraphobia F40.01 and Chronic posttraumatic stress disorder F43.12 [facility] [id number] [place] [address] 30154- 9814 Dec, [facility] [address], [place] [address]- 8424 October, [facility] [id number] [place] [address] 44461- 0854 October, Undifferentiated schizophrenia F20.3 [facility] [id number] [place] [address] 95325- 0275 October, [facility] [id number] [place] [address] 95700- 0349 October, [facility] [id number] [place] [address] 39001- 6767 Oct, Undifferentiated schizophrenia F20.3 ; Panic disorder with agoraphobia F40.01 ; Chronic posttraumatic stress disorder F43.12 and Obesity E66.9 [facility] [id number] [place] [address] 77356- 0429 Oct, [facility] [id number] [place] [address] 69206- 7323 Oct, [facility] [id number] [place] [address] 43488- 2269 Aug, Undifferentiated schizophrenia F20.3 [facility] [id number] [place] [address] 27520- 1380 Aug, [facility] [id number] [place] [address] 79470- 6372 Aug, Muscle spasm M62.838 [facility] [address], [place] [address]- 8413 Aug, Undifferentiated schizophrenia F20.3 [facility] [id number] [place] [address] [phone]- 6313 Aug, Undifferentiated schizophrenia F20.3 ; Panic disorder with agoraphobia F40.01 ; Chronic posttraumatic stress disorder F43.12 ; High risk medication use Z79.899 and Social phobia F40.10 [facility] [address], [place] [address]- 1479 Aug, Undifferentiated schizophrenia F20.3 [facility] [address], [place] [address]- 3340 Aug, [facility] [address] [place] [address] 18267- 3986 14 Aug, 2016 Acute non-recurrent maxillary sinusitis J01.00 [facility] [address], [place] [address]- 7619 10 Aug, 2016 [facility] [id number] [place] [address] 50815- 3755 Aug, [facility] [id number] [place] [address] 97590- 4265 Jul, Undifferentiated schizophrenia F20.3 [facility] [id number] [place] [address] 79738- 8213 Jul, Schizophrenia, undifferentiated F20.3 ; Social phobia F40.10 ; Post-traumatic stress disorder F43.10 ; Panic disorder F41.0 and Depressive disorder, not elsewhere classified F32.9 [facility] [address], [place] [address]- 7097 Jul, [facility] [address], [place] [address]- 7722 Jul, Schizophrenia, undifferentiated F20.3 ; Social phobia F40.10 ; Post-traumatic stress disorder F43.10 ; Panic disorder F41.0 and Depressive disorder, not elsewhere classified F32.9 [facility] [address], [place] [address]- 9927 Jul, [facility] [id number] [place] [address] 66625- 9390 Jul, Undifferentiated schizophrenia F20.3 ; Panic disorder with agoraphobia F40.01 ; Social phobia F40.10 ; Obesity E66.9 and Chronic posttraumatic stress disorder F43.12 [facility] [id number], [place] [address]- 3566 22 Jun, 2016 [facility] [id number] [place] [address] 35488- 1446 Jun, [facility] [id number] [place] [address] 47456 2546 19 Jun, 2016 Dental caries K02.9 [facility] [id number] [place] [address] 23279- 0416 Jun, Undifferentiated schizophrenia F20.3 [facility] [id number] [place] [address] 77523- 3056 30 May, 2016 [facility] [id number] [place] [address] 89052- 0431 29 May, 2016 Undifferentiated schizophrenia F20.3 ; Panic disorder with agoraphobia F40.01 and Chronic post-traumatic stress disorder (PTSD) F43.12 [facility] [address], [place] [address]- 1686 May, [facility] [id number] [place] [address] 89545- 3541 11 May, 2016 Undifferentiated schizophrenia F20.3 [facility] [id number] [place] [address] 72740- 2548 10 May, 2016 [facility] [id number] [place] [address] 41673- 5664 07 May, 2016 Dental examination Z01.20 [facility] [address] [place] [address] 94990- 9901 20 Apr, 2016 Undifferentiated schizophrenia F20.3 ; PTSD (post-traumatic stress disorder) F43.10 and Obesity E66.9 [facility] [id number], [place] [address]- 8016 18 Apr, 2016 [facility] [id number] [place] [address] 01324- 8375 15 Mar, 2016 [id number] [place] [address] 78089- 8209 Mar, [id number] [place] [address] 44532- 0879 Jan, Shortness of breath R06.02 and Bipolar disorder with psychotic features F31.9 [address] [id number] [place] [address] 49302- 4366 Jan, [address] [id number] [place] [address] 55276- 2521 Jan, Increased intracranial pressure G93.2 ; Visual disturbance H53.9 and Bipolar II disorder F31.81 [address] [id number] [place] [address] 28504- 1072 Jan, [address] [id number] [place] [address] 91593- 4125 Jan, [id number] [place] [address] 72030- 7869 Jan, [address] [id number] [place] [address] 52954- 7383 Jan, Acquired hypothyroidism E03.9 ; Depression F32.9 and Insomnia G47.00 [address] [id number] [place] [address] 51432- 5590 Jan, Exertional dyspnea R06.09 ; Heart palpitations R00.2 ; Hyperlipidemia, unspecified hyperlipidemia type E78.5 ; Hypothyroidism, unspecified type E03.9 and Hypokalemia E87.6 [address] [address] [address] [place] [address] 17122- 7404 Dec, PTSD (post-traumatic stress disorder) F43.10 ; Depression F32.9 ; Insomnia G47.00 and Bipolar disorder with psychotic features F31.9 [address] [address], [place] [address]- 8890 Dec, Increased intracranial pressure G93.2 [place] [id number] [place] [address] 33914- 2821 13 Jan, 2016 [facility] [id number] [place] [address] 33952- 7873 12 Jan, 2016 Shortness of breath R06.02 [address] [id number] [place] [address] 81535- 4698 05 Jan, 2016 Visual disturbance H53.9 and Headache, unspecified headache type R51 [place] [id number] [place] [address] 66039- 3884 Dec, Insomnia G47.00 [address] [address] 24753- 9501 Dec, Murmur R01.1 [place] [id number] [place] [address] 75118- 8055 Dec, Murmur R01.1 ; Tunnel vision, unspecified laterality H53.489 ; Orthostatic hypertension I10 ; Shortness of breath R06.02 and Tachycardia R00.0 [place] [id number] [place] [address] 23489- 1978 Dec, [place] [id number] [place] [address] 75709- 6348 Dec, Hypothyroid E03.9 and Bipolar 1 disorder F31.9 [place] [id number] [place] [address] 28032- 5571 Dec, Bipolar 1 disorder F31.9 [place] [id number] [place] [address] 23803- 2366 Dec, [place] [id number] [place] [address] 50226- 3857 October, Acquired hypothyroidism E03.9 ; Depression F32.9 and Insomnia G47.00 [place] [id number] [place] [address] 20959- 7485 October, [id number] [place] [address] 09999- 5817 October, Bipolar 1 disorder F31.9 ; PTSD (post-traumatic stress disorder) F43.10 and Social phobia F40.10 [facility] [id number] [place] [address] 57780- 2113 Oct, Bipolar 1 disorder F31.9 and Insomnia G47.00 [facility] [id number] [place] [address] 66973- 9795 Oct, [facility] [id number] [place] [address] 51269- 8105 Oct, [place] [id number] [place] [address] 17074- 8201 Aug, Hypothyroid E03.9 [place] [id number] [place] [address] 44035- 1592 Aug, Encounter for therapeutic drug level monitoring Z51.81 and Other long-term (current) drug therapy Z79.899 [place] [id number] [place] [address] 79414- 2844 Aug, Encounter for therapeutic drug level monitoring Z51.81 [place] [id number] [place] [address] 98343- 8364 Aug, Acquired hypothyroidism E03.9 ; Leg pain M79.606 and Bipolar 1 disorder F31.9 [place] [id number] [place] [address] 80393- 7596 Aug, [facility] [id number] [place] [address] 19335- 4841 Aug, [place] [id number] [place] [address] 91656- 5470 Jul, Thyroid disorder E07.9 [facility] [id number] [place] [address] 29482- 2309 Jul, Rash R21 ; Abnormal LFTs R94.5 ; Acquired hypothyroidism E03.9 ; Sleep apnea in adult G47.33 and Fatty liver K76.0 [facility] [id number] [place] [address] 00858- 0283 Jun, [facility] [id number] [place] [address] 67161- 0692 Jun, [facility] [address] 09254- 9615 Jun, Bipolar II disorder F31.81 and Social phobia, generalized F40.11 [facility] [address] 00169- 0500 Mar, Bipolar II disorder 296.89 and Social phobia 300.23 [facility] [address] 90233- 4162 Dec, [facility] [address] 45354- 4717 Dec, [facility] [address] 91607- 9503 Dec, Bipolar II disorder in partial or unspecified remission 296.89 and Social phobia, generalized 300.23 [facility] [id number] [place] [address] 78779- 5059 Oct, 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 [facility] [id number] [place] [address] Oct, [facility] [id number] [place] [address]- [address]15 Oct, [facility] [address] [address]- [address] Aug, [facility] [address] [address] Aug, [facility] [id number] [place] [address]- 3810 Aug, [facility] [place] [facility] [address] [id number] [place] [address] Aug, [facility] [place] [facility] [address] [id number] [place] [address] Aug, [facility] [place] [facility] [address] [id number] [place] [address] Aug, [facility] [place] [facility] [address] [id number] [place] [address]- [address] Aug, [facility] [place] [facility] [address] [id number] [place] [address]- [address] Aug, [facility] [place] [facility] [address] [id number] [place] [address] Jul, [facility] [place] [facility] [address] [id number] [place] [address] Jul, [facility] [place] [facility] [address] [id number] [place] [address]- [address] Jul, [facility] [place] [facility] [address] [id number] [place] [address]- [address] Jul, [facility] [place] [facility] [address] [id number] [place] [address] 239[address] Jul, [facility] [place] [facility] [address] [id number] [place] [address]- [address] Jul, [facility] [place] [facility] [address] [id number] [place] [address]- [address] Jun, [facility] [place] [facility] [address] [id number] [place] [address]- 2434 Jun, [facility] [place] [facility] [address] [id number] [place] [address]- [address] Jun, [facility] [place] [facility] [address] [id number] [place] [address]- [address] Jun, [facility] [place] [facility] [address] [id number] [place] [address] Jun, [facility] [place] [facility] [address] [id number] [place] [address]- [address]80 Jun, [facility] [place] [facility] [address] [id number] [place] [address]- 7663 Jun, [facility] [place] [facility] [address] [facility] [id number] [place] [address]- 6487 Jun, [facility] [place] [facility] [address] [id number] [place] [address]- 5841 Jun, [facility] [place] [facility] [address] [id number] [place] [address] Jun, [facility] [place] [facility] [address] [id number] [place] [address] Jun, [facility] [place] [facility] [address] [id number] [place] [address]- 6[address] Jun, [facility] [place] [facility] [address] [id number] [place] [address]- 6[address] Jun, [facility] [place] [facility] [address] [id number] [place] [address]- 1170 Jun, [facility] [place] [facility] [address] [id number] [place] [address]- 0918 Jun, [facility] [place] [facility] [address] [id number], [place] [address] Jun, [facility] [place] [facility] [address] [id number], [place] [address] May, [facility] [place] [facility] [address] [id number] [place] [address]- 6[address] May, [facility] [place] [facility] [address] [id number], [place] [address] May, [facility] [place] [facility] [address] [id number], [place] [address]- [address] May, [facility] [place] [facility] [address] [id number] [place] [address]- [address]96 May, [facility] [place] [facility] [address] [id number] [place] [address]- [address] May, [facility] [place] [facility] [address] [address] [id number] [place] [address] Apr, [facility] [place] [facility] [address] [id number] [place] [address] Apr, [facility] [place] [facility] [address] [id number] [place] [address] 1577 Apr, [facility] [place] [facility] [address] [id number] [place] [address] 6[address] Apr, [facility] [place] [facility] [address] [id number] [place] [address] Apr, [facility] [place] [facility] [address] [id number] [place] [address] 8080 Apr, [facility] [place] [facility] [address] [id number] [place] [address] 79[address] Mar, [facility] [place] [facility] [address] [id number] [place] [address] Mar, [facility] [place] [facility] [address] [id number] [place] [address] 9[address] Mar, [facility] [place] [facility] [address] [id number] [place] [address] 27[address] Mar, [facility] [place] [facility] [address] [id number] [place] [address] Jan, [facility] [place] [facility] [address] [id number] [place] [address] Jan, [facility] [place] [facility] [address] [id number] [place] [address] 3860 Jan, [facility] [place] [facility] [address] [id number] [place] [address] 7239 Jan, [facility] [place] [facility] [address] [id number] [place] [address] 0627 Jan, [facility] [place] [facility] [address] [id number] [place] [address] 1495 Jan, [facility] [place] [facility] [address] [id number] [place] [address] 3209 Dec, [facility] [place] [facility] [address] [id number] [place] [address] 0802 Dec, [facility] [place] [facility] [address] [id number] [place] [address] 8855 Dec, [facility] [place] [facility] [address] [id number] [place] [address] 7438 Dec, [facility] [place] [facility] [address] [id number] [place] [address] 3619 Dec, [facility] [place] [facility] [address] [id number] [place] [address] 6911 Dec, [facility] [place] [facility] [address] [id number] [place] [address] 230[address] October, [facility] [place] [facility] [address] [id number] [place] [address] 0883 October, [facility] [place] [facility] [address] [id number] [place] [address] 6[address] October, [facility] [place] [facility] [address] [id number] [place] [address] 3768 October, [facility] [place] [facility] [address] [id number] [place] [address] 3450 October, [facility] [place] [facility] [address] [id number] [place] [address] 5426 October, [facility] [place] [facility] [address] [id number] [place] [address] 6828 October, [facility] [place] [facility] [address] [id number], [place] [address] October, [facility] [place] [facility] [address] [id number] [place] [address] 3927 Oct, [facility] [place] [facility] [address] [id number] [place] [address] 0333 Oct, [facility] [place] [facility] [address] [facility] [id number] [place] [address] 6256 Oct, [facility] [place] [facility] [address] [id number] [place] [address] 3134 Oct, [facility] [place] [facility] [address] [id number] [place] [address] 9222 Oct, [facility] [place] [facility] [address] [facility] [id number] [place] [address] 6382 Aug, [facility] [place] [facility] [address] [facility] [id number] [place] [address] 2352 Aug, [facility] [place] [facility] [address] [facility] [id number] [place] [address] 5298 Aug, [facility] [place] [facility] [address] [facility] [id number] [place] [address] 3219 Aug, [facility] [place] [facility] [address] [facility] [id number] [place] [address] 8290 Aug, [facility] [place] [facility] [address] [facility] [id number] [place] [address] 3344 Aug, [facility] [place] [facility] [address] [facility] [id number], [place] [address] Jul, [facility] [place] [facility] [address] [id number] [place] [address] 6756 Jul, [facility] [place] [facility] [address] [facility] [id number], [place] [address]85 Jul, [facility] [place] [facility] [address] [facility] [id number], [place] [address] Jul, [facility] [place] [facility] [address] [id number] [place] [address] 0015 Jul, [facility] [place] [facility] [address] [id number] [place] [address] 7456 Jul, [facility] [place] [facility] [address] [id number] [place] [address] 6271 Jun, [facility] [place] [facility] [address] [id number] [place] [address] Jun, [facility] [place] [facility] [address] [id number] [place] [address]- 2167 Jun, [facility] [place] [facility] [address] [id number] [place] [address]- 7224 Jun, [facility] [place] [facility] [address] [id number] [place] [address]- 7036 Jun, [facility] [place] [facility] [address] [id number] [place] [address]- 7558 Jun, [facility] [place] [facility] [address] [id number] [place] [address] 3514 May, [facility] [place] [facility] [address] [id number] [place] [address] 3939 May, [facility] [place] [facility] [address] [id number] [place] [address]- 9180 Apr, [facility] [place] [facility] [address] [id number] [place] [address]- 0693 Apr, [facility] [place] [facility] [address] [id number] [place] [address]- 4133 Apr, [facility] [place] [facility] [address] [id number] [place] [address]- 3728 Apr, [facility] [place] [facility] [address] [id number] [place] [address]- 1680 Apr, [facility] [place] [facility] [address] [id number] [place] [address]- 0925 18 Apr, 2013 [facility] [place] [facility] [address] [id number] [place] [address]- 2688 18 Apr, 2013 [facility] [place] [facility] [address] [id number] [place] [address]- 1860 18 Apr, 2013 [facility] [place] [facility] [address] [id number] [place] [address]- 8765 18 Apr, 2013 [facility] [place] [facility] [address] [id number] [place] [address]- 3158 04 Apr, 2013 [facility] [place] [facility] [address] [id number] [place] [address]- 1090 02 Apr, 2013 [facility] [place] [facility] [address] [id number] [place] [address]- 7382 23 Mar, 2013 [facility] [place] [facility] [address] [id number] [place] [address]- 8916 20 Mar, 2013 [facility] [place] [facility] [address] [id number] [place] [address]- 3988 20 Mar, 2012 [facility] [place] [facility] [address] [id number] [place] [address]- 8069 14 Mar, 2013 [facility] [place] [facility] [address] [id number] [place] [address]- 5918 12 Mar, 2013 [facility] [place] [facility] [address] [id number], [place] [address]- 6763 06 Mar, 2012 [facility] [place] [facility] [address] [id number], [place] [address]- 5335 06 Mar, 2012 [facility] [place] [facility] [address] [id number] [place] [address]- 5600 19 Jan, 2013 [facility] [place] [facility] [address] [id number], [place] [address]- 9948 14 Jan, 2013 [facility] [place] [facility] [address] [id number], [place] [address]- 7967 Jan, [facility] [place] [facility] [address] [id number] [place] [address]- 5567 Jan, [facility] [address] [id number] [place] [address]- 9089 Jan, [facility] [address] [id number] [place] [address]- 9065 Jan, [facility] [address] [id number] [place] [address]- 4792 Jan, [facility] [address] [id number] [place] [address]- 3961 Dec, [facility] [address] [id number] [place] [address]- 6187 Dec, [facility] [address] [id number] [place] [address]- 7668 Dec, [facility] [address] [id number] [place] [address]- 4342 Dec, [facility] [address] [id number] [place] [address]- 5624 Dec, [facility] [address] [id number] [place] [address]- 9043 Dec, [facility] [address] [id number] [place] [address]- 0849 October, [facility] [address] [id number] [place] [address]- 1299 October, [facility] [address] [id number] [place] [address]- 9439 October, [facility] [address] [id number] [place] [address]- 9502 October, [facility] [address] [id number] [place] [address]- 2546 Oct, [facility] [address] [id number] [place] [address]- 0070 Oct, [facility] [address] [id number] [place] [address]- 1252 27 Aug, 2012 [facility] [place] [facility] [address] [id number] [place] [address]- 3628 26 Aug, 2012 [facility] [place] [facility] [address] [id number] [place] [address]- 3049 21 Aug, 2012 [facility] [place] [facility] [address] [id number] [place] [address]- 3920 20 Aug, 2012 [facility] [address] [id number] [place] [address]- 3813 18 Aug, 2012 [facility] [place] [facility] [address] [id number] [place] [address]- 5718 07 Aug, 2012 [facility] [place] [facility] [address] [facility] [id number] [place] [address]- 4024 Aug, [facility] [place] [facility] [address] [id number] [place] [address]- 4540 Aug, [facility] [place] [facility] [address] [id number] [place] [address]- 2322 Aug, [facility] [place] [facility] [address] [facility] [id number] [place] [address]- 0568 Aug, [facility] [place] [facility] [address] [id number] [place] [address]- 4768 Aug, [facility] [place] [facility] [address] [id number], [place] [address]- 7015 08 Aug, 2012 [facility] [place] [facility] [address] [id number] [place] [address]- 3723 Aug, [facility] [place] [facility] [address] [id number] [place] [address]- 3237 04 Aug, 2012 [facility] [place] [facility] [address] [facility] [id number] [place] [address]- 5918 Jul, [facility] [place] [facility] [address] [id number], [place] [address]- [address] Jul, [facility] [address] [id number], [place] [address]- 6086 Jul, [facility] [address] [facility] [id number], [place] [address]- 3089 Jul, [facility] [address] [id number], [place] [address]- 7836 Jun, [facility] [id number], [place] [address]- 7738 Jun, [facility] [id number], [place] [address]- 9529 Jun, [facility] [address], [place] [address]- 5840 Jun, [facility] [address], [place] [address]- 5152 May, [facility] [address] [id number], [place] [address]- 6703 May, IMMUNIZATIONS No Known Immunizations SOCIAL HISTORY Never Assessed REASON FOR VISIT check in PLAN OF CARE VITAL SIGNS MEDICATIONS Unknown [...]
--- OUTSIDE RECORDS SUMMARY | 2018-09-02 18:21 | XMS REPORT ---
Author Author AMARI HOWARD Organization [facility] Address [address] [place] [address] Care Team Providers Care Manager Pet Name Role Phone AMARI HOWARD Unavailable PROBLEMS Type Condition ICD9-CM Code [id number] Code Onset Dates Condition Status SNOMED Code Problem Murmur R01.1 Active 507187782 Problem Shortness of breath R06.02 Active 634839019 Problem Tachycardia R00.0 Active 9866654 Problem Depressive disorder, not elsewhere classified F32.9 Active 92714115 Problem Acquired hypothyroidism E03.9 Active 674250173 Problem Panic disorder without agoraphobia F41.0 Active 05099182 Problem Panic disorder with agoraphobia F40.01 Active 13809039 Problem Undifferentiated schizophrenia F20.3 Active 405100454 Problem Panic disorder F41.0 Active 645705886 Problem Chronic posttraumatic stress disorder F43.12 Active 341866154 Problem Fatty liver K76.0 Active 977670640 Problem Obesity E66.9 Active 558902057 Problem Sleep apnea in adult G47.33 Active 56339542 Problem Abuse, drug or alcohol F19.10 Active 68879994 Problem Neuropathy G62.9 Active 682490994 Problem Encounter for therapeutic drug level monitoring Z51.81 Active 339543062 Problem Social phobia F40.10 Active 11662846 Problem Orthostatic hypertension I10 Active 75628893 Problem Restless legs syndrome G25.81 Active 914177885 Problem Tunnel vision, unspecified laterality H53.489 Active 080046506 ALLERGIES No Information SOCIAL HISTORY Never Assessed PLAN OF CARE VITAL SIGNS MEDICATIONS Unknown Medications RESULTS No Results PROCEDURES Procedure Date Ordered Result Body Site ARISTADA 662 MG/2.5 ML (SAMPLE) November 18, 2016 THER/PROPH/DIAG INJ, SC/IM November 18, 2016 IMMUNIZATIONS Vaccine Route Administration Date Status ARISTADA 662 MG/2.5 ML (SAMPLE) IM Intramuscular November 18, 2016 Administered MEDICAL (GENERAL) HISTORY Type Description Date Medical [...]
--- OUTSIDE RECORDS SUMMARY | 2018-09-02 18:22 | XMS REPORT ---
Author Author DIGNA GUERRERO [facility] Address [address] [place] [address] Care Team Providers Care Agricultural Mechanic Name Role Phone DIGNA GUERRERO Unavailable PROBLEMS Type Condition ICD9-CM Code IMT18-CR Code Onset Dates Condition Status SNOMED Code Problem Murmur R01.1 Active 871806795 Problem Shortness of breath R06.02 Active 961359531 Problem Tachycardia R00.0 Active 2730536 Problem Depressive disorder, not elsewhere classified F32.9 Active 50191840 Problem Acquired hypothyroidism E03.9 Active 265466418 Problem Panic disorder without agoraphobia F41.0 Active 18822286 Problem Panic disorder with agoraphobia F40.01 Active 05778831 Problem Undifferentiated schizophrenia F20.3 Active 095853787 Problem Panic disorder F41.0 Active 898748980 Problem Chronic posttraumatic stress disorder F43.12 Active 686286877 Problem Fatty liver K76.0 Active 326090702 Problem Obesity E66.9 Active 050541517 Problem Sleep apnea in adult G47.33 Active 61664109 Problem Abuse, drug or alcohol F19.10 Active 07571972 Problem Neuropathy G62.9 Active 692662270 Problem Encounter for therapeutic drug level monitoring Z51.81 Active 195412020 Problem Social phobia F40.10 Active 96565115 Problem Orthostatic hypertension I10 Active 03823782 Problem Restless legs syndrome G25.81 Active 075271919 Problem Tunnel vision, unspecified laterality H53.489 Active 479904651 ALLERGIES No Known Allergies SOCIAL HISTORY Never Assessed PLAN OF CARE Activity Details Follow Up prn Reason: VITAL SIGNS Height 67 in 2016-08-16 Weight 349.5 lbs 2016-08-16 Temperature 98.2 degrees Fahrenheit 2016-08-16 Heart Rate 96 bpm 2016-08-16 Respiratory Rate 18 2016-08-16 BMI 54.73 kg/m2 2016-08-16 Blood pressure systolic 130 mmHg 2016-08-16 Blood pressure diastolic 88 mmHg 2016-08-16 MEDICATIONS Medication Instructions Dosage Frequency Start Date End Date Duration Status Clonazepam 1 MG Orally 2 times a day for anxiety 1 tablet Apr, Active Aristada 882 MG/3.2ML 3.2 ml May, Active Levothyroxine Sodium 100 MCG Orally Once a day 1 tablet 24h 30 Sep, 2015 Active Amoxicillin 500 MG Orally 3 times a day 1 capsule 8h Aug, Aug, 07 days Active Trazodone HCl 150 MG Orally for sleep 1 tablet at bedtime as needed Active Neurontin 800 MG Orally 2 times a day 1 tablet 12h Aug, Active Breo Ellipta 100-25 MCG/INH Inhalation Once a day 1 puff 24h Dec, 90 days Active [place] Carbonate 300 MG Orally 1 cap in AM and 2 cap at bedtime 1 capsule 30 days Active RESULTS No Results PROCEDURES [...]
--- OUTSIDE RECORDS SUMMARY | 2018-09-02 18:22 | XMS REPORT ---
Author Author AMARI HOWARD [facility] Address [address] [place] [address] Care Team Providers Care Lining Inserter Name Role Phone AMARI HOWARD Unavailable PROBLEMS Type Condition ICD9-CM Code [id number] Code Onset Dates Condition Status SNOMED Code Problem Murmur R01.1 Active 566651922 Problem Shortness of breath R06.02 Active 732923171 Problem Tachycardia R00.0 Active 7640589 Problem Depressive disorder, not elsewhere classified F32.9 Active 31841662 Problem Acquired hypothyroidism E03.9 Active 784899571 Problem Panic disorder without agoraphobia F41.0 Active 43742108 Problem Panic disorder with agoraphobia F40.01 Active 67755279 Problem Undifferentiated schizophrenia F20.3 Active 281569854 Problem Panic disorder F41.0 Active 525448566 Problem Chronic posttraumatic stress disorder F43.12 Active 307921774 Problem Fatty liver K76.0 Active 037444768 Problem Obesity E66.9 Active 340433217 Problem Sleep apnea in adult G47.33 Active 45781927 Problem Abuse, drug or alcohol F19.10 Active 28648863 Problem Neuropathy G62.9 Active 283419955 Problem Encounter for therapeutic drug level monitoring Z51.81 Active 007077408 Problem Social phobia F40.10 Active 76970953 Problem Orthostatic hypertension I10 Active 63444920 Problem Restless legs syndrome G25.81 Active 650969496 Problem Tunnel vision, unspecified laterality H53.489 Active 012760588 ALLERGIES No Known Allergies SOCIAL HISTORY Never Assessed PLAN OF CARE VITAL SIGNS MEDICATIONS Medication Instructions Dosage Frequency Start Date End Date Duration Status Neurontin 800 MG Orally 2 times a day 1 tablet 12h 03 Aug, 2014 Active Levothyroxine Sodium 100 MCG Orally Once a day 1 tablet 24h 30 Sep, 2015 Active Trazodone HCl 150 MG Orally for sleep 1 tablet at bedtime as needed Active Aristada 882 MG/3.2ML 3.2 ml May, Active Breo Ellipta 100-25 MCG/INH Inhalation Once a day 1 puff 24h 20 Dec, 2015 90 days Active Amoxicillin 500 MG Orally 3 times a day 1 capsule 8h 14 Aug, 2016 Aug, 07 days Active Clonazepam 1 MG Orally 2 times a day for anxiety 1 tablet Apr, Active [place] Carbonate 300 MG Orally 1 cap in AM and 2 cap at bedtime 1 capsule 30 days Active RESULTS No Results PROCEDURES Procedure Date Ordered Result Body Site ARISTADA 662 MG/2.5 ML (SAMPLE) Aug 22, 2016 THER/PROPH/DIAG INJ, SC/IM Aug 22, 2016 IMMUNIZATIONS Vaccine Route Administration Date Status ARISTADA 662 MG/2.5 ML (SAMPLE) IM Intramuscular Aug 22, 2016 Administered MEDICAL (GENERAL) HISTORY Type Description [...]
--- OUTSIDE RECORDS SUMMARY | 2018-09-02 18:22 | XMS REPORT ---
Author Author AMARI HOWARD [facility] Address [address] [place] [address] Care Team Providers Care Anthropometrist Name Role Phone AMARI HOWARD Unavailable PROBLEMS Type Condition ICD9-CM Code UES95-HR Code Onset Dates Condition Status SNOMED Code Problem Murmur R01.1 Active 693184266 Problem Shortness of breath R06.02 Active 382297123 Problem Tachycardia R00.0 Active 9217675 Problem Depressive disorder, not elsewhere classified F32.9 Active 00683523 Problem Acquired hypothyroidism E03.9 Active 080055365 Problem Panic disorder without agoraphobia F41.0 Active 08987874 Problem Panic disorder with agoraphobia F40.01 Active 28699002 Problem Undifferentiated schizophrenia F20.3 Active 874683971 Problem Panic disorder F41.0 Active 538600577 Problem Chronic posttraumatic stress disorder F43.12 Active 130417890 Problem Fatty liver K76.0 Active 624680149 Problem Obesity E66.9 Active 714381707 Problem Sleep apnea in adult G47.33 Active 03392278 Problem Abuse, drug or alcohol F19.10 Active 53872697 Problem Neuropathy G62.9 Active 471820216 Problem Encounter for therapeutic drug level monitoring Z51.81 Active 751079911 Problem Social phobia F40.10 Active 42348946 Problem Orthostatic hypertension I10 Active 42317770 Problem Restless legs syndrome G25.81 Active 765288325 Problem Tunnel vision, unspecified laterality H53.489 Active 987225188 ALLERGIES Substance Reaction Event Type Date Status N.K.D.A. Unknown Non Drug Allergy Jul, Unknown SOCIAL HISTORY No smoking Hx information available PLAN OF CARE Activity Details Follow Up 6 Weeks Reason: VITAL SIGNS Height 67 in 2016-07-07 Weight 346.0 lbs 2016-07-07 Heart Rate 92 bpm 2016-07-07 Respiratory Rate 22 2016-07-07 BMI 54.19 kg/m2 2016-07-07 Blood pressure systolic 130 mmHg 2016-07-07 Blood pressure diastolic 90 mmHg 2016-07-07 MEDICATIONS Medication Instructions Dosage Frequency Start Date End Date Duration Status Amberg Carbonate 300 MG Orally 1 cap in AM and 2 cap at bedtime 1 capsule Active Levothyroxine Sodium 100 MCG Orally Once a day 1 tablet 24h Aug, Active Breo Ellipta 100-25 MCG/INH Inhalation Once a day 1 puff 24h 20 Dec, 2015 90 days Active Trazodone HCl 150 MG Orally for sleep 1 tablet at bedtime as needed Active Clonazepam 1 MG Orally 2 times a day for anxiety 1 tablet Apr, Active Aristada 882 MG/3.2ML 3.2 ml May, Active Neurontin 800 MG Orally 2 times a day 1 tablet 12h Aug, Active RESULTS No Results PROCEDURES Procedure Date Ordered Related Diagnosis Body Site Office Visit, Est Pt., Level 4 Jul 07, 2016 IMMUNIZATIONS No Known Immunizations
--- OUTSIDE RECORDS SUMMARY | 2018-09-02 18:23 | XMS REPORT ---
Author Author AMARI HOWARD [facility] Address [address] [place] [address] Care Team Providers Care Chief Of Pediatric Urology Name Role Phone AMARI HOWARD Unavailable PROBLEMS Type Condition ICD9-CM Code RDS83-EQ Code Onset Dates Condition Status SNOMED Code Problem Shortness of breath R06.02 Active 405402107 Problem Panic disorder with agoraphobia F40.01 Active 16977352 Problem Undifferentiated schizophrenia F20.3 Active 442815265 Problem Hypothyroid E03.9 Active 94095739 Problem Abuse, drug or alcohol F19.10 Active 33462080 Problem BMI 50.0-59.9, adult Z68.43 Active 383550827 Problem Sleep apnea in adult G47.33 Active 76661205 Problem Depressive disorder, not elsewhere classified F32.9 Active 70533897 Problem Chronic posttraumatic stress disorder F43.12 Active 609297767 Problem Panic disorder without agoraphobia F41.0 Active 76103619 Problem Panic disorder F41.0 Active 894887144 Problem Neuropathy G62.9 Active 150445738 Problem Social phobia F40.10 Active 26744204 Problem Fatty liver K76.0 Active 022016360 Problem Obesity E66.9 Active 714719661 Problem Orthostatic hypertension I10 Active 92408638 Problem Tunnel vision, unspecified laterality H53.489 Active 712074532 Problem Restless legs syndrome G25.81 Active 541294081 Problem Tachycardia R00.0 Active 3438837 Problem Encounter for therapeutic drug level monitoring Z51.81 Active 341316009 Problem Murmur R01.1 Active 827150779 ALLERGIES No Information ENCOUNTERS Encounter Location Date Diagnosis [facility] [address] [facility] [id number] [address] Dec, [facility] [address] [facility] [id number] [address] October, [facility] [address] [address] Oct, [facility] [address] [id number] [address] Oct, [facility] [address], [place] [address] 6597 Aug, Undifferentiated schizophrenia F20.3 [facility] [id number] [place] [address] 20568- 2696 Aug, [facility] [address], [place] [address] 0087 Aug, Undifferentiated schizophrenia F20.3 ; Panic disorder with agoraphobia F40.01 ; Chronic posttraumatic stress disorder F43.12 and BMI 50.0- 59.9, adult Z68.43 [facility] [id number] [place] [address] 74743- 4723 Aug, [facility] [address], [place] [address] 0[address] Aug, [facility] [address] [id number], [place] [address] 8941 Aug, Undifferentiated schizophrenia F20.3 [facility] [address], [place] [address] 3[address] Aug, Hypothyroid E03.9 [facility] [address], [place] [address] 7189 Jul, Undifferentiated schizophrenia F20.3 [facility] [address], [place] [address] 9792 Jul, [facility] [address], [place] [address] 8526 Jul, Undifferentiated schizophrenia F20.3 ; Chronic posttraumatic stress disorder F43.12 ; Panic disorder with agoraphobia F40.01 and BMI 50.0-59.9, adult Z68.43 [facility] [id number] [place] [address] 87659- 9371 Jul, [facility] [id number] [place] [address] 83555- 9635 Jul, Acute pain of right shoulder M25.511 ; High risk medication use Z79.899 ; Needle stick injury W27.3XXA ; Hypothyroid E03.9 and BMI 50.0-59.9 , adult Z68.43 [facility] [id number] [place] [address] 82849- 9152 Jun, Undifferentiated schizophrenia F20.3 [facility] [id number] [place] [address] 47318- 7551 Jun, Undifferentiated schizophrenia F20.3 ; Panic disorder without agoraphobia F41.0 ; Chronic posttraumatic stress disorder F43.12 and BMI 50.0-59.9, adult Z68.43 [facility] [id number] [place] [address] 29379- 4735 May, [facility] [id number] [place] [address] 95118- 4487 May, [facility] [id number] [place] [address] 36644- 5831 May, Undifferentiated schizophrenia F20.3 [facility] [id number] [place] [address] 62320- 7242 May, [facility] [id number] [place] [address] 30516- 9965 May, [facility] [id number] [place] [address] 47386- 2511 May, Hypothyroid E03.9 [facility] [id number] [place] [address] 84645- 4027 13 May, 2017 [facility] [id number] [place] [address] 91490- 7915 May, [facility] [address] [place] [address]- 4960 07 May, 2017 Chronic posttraumatic stress disorder F43.12 ; Panic disorder with agoraphobia F40.01 ; Undifferentiated schizophrenia F20.3 ; BMI 40.0-44.9, adult Z68.[address] [facility] [address], [place] [address]- 6626 07 May, [address] [facility] [id number] [place] [address] 05829- 4979 May, [facility] [id number] [place] [address] 91974- 0827 Apr, Undifferentiated schizophrenia F20.3 [facility] [id number] [place] [address] 83902- 3590 Apr, [facility] [id number] [place] [address] 13093- 2156 Apr, [facility] [id number] [place] [address] 89510- 2511 Mar, Undifferentiated schizophrenia F20.3 ; Panic disorder without agoraphobia F41.0 and Chronic posttraumatic stress disorder F43.12 [facility] [address] [place] [address] 28673- 0033 Mar, Undifferentiated schizophrenia F20.3 [facility] [id number] [place] [address] 15335- 0976 18 Mar, 2017 [facility] [id number] [place] [address] 55910- 9275 Mar, [facility] [id number] [place] [address] 95608- 7128 07 Mar, 2017 [facility] [id number] [place] [address] 52362- 7394 Jan, Undifferentiated schizophrenia F20.3 [facility] [id number] [place] [address] 16006- 5888 Jan, [facility] [address], [place] [address] [address]22 Jan, [facility] [address], [place] [address] 1888 Jan, [facility] [address] [id number] [id number] Dec, Needle stick injury W27.3XXA [facility] [address] [place] [address] 49677- 4312 Dec, Needle stick injury W27.3XXA [facility] [address] [place] [address] 57649- 3378 Dec, Undifferentiated schizophrenia F20.3 [facility] [address], [place] [address] 7611 Dec, [facility] [id number] [place] [address] 10749- 0769 Dec, [facility] [address] [place] [address] 50698- 8082 Dec, Undifferentiated schizophrenia F20.3 ; Panic disorder with agoraphobia F40.01 and Chronic posttraumatic stress disorder F43.12 [facility] [address], [place] [address] 7039 Dec, [facility] [address], [place] [address]- 7532 October, [facility] [address], [place] [address]- 1072 October, Undifferentiated schizophrenia F20.3 [facility] [address], [place] [address]- 0909 October, [facility] [address] 4174 October, [facility] [address], [place] [address]- 5443 Oct, Undifferentiated schizophrenia F20.3 ; Panic disorder with agoraphobia F40.01 ; Chronic posttraumatic stress disorder F43.[address] [facility] [id number] [place] [address] 27149- 3948 Oct, [facility] [id number] [place] [address] 54760- 0484 Oct, [facility] [id number] [place] [address] 05052- 9505 Aug, Undifferentiated schizophrenia F20.3 [facility] [id number] [place] [address] 45543- 0967 Aug, [facility] [id number] [place] [address] 99633- 2162 Aug, Muscle spasm M62.838 [facility] [id number] [place] [address] 26121- 8633 Aug, Undifferentiated schizophrenia F20.3 [facility] [id number] [place] [address] 88270- 1040 Aug, Undifferentiated schizophrenia F20.3 ; Panic disorder with agoraphobia F40.01 ; Chronic posttraumatic stress disorder F43.12 ; High risk medication use Z79.899 and Social phobia F40.10 [facility] [address] [place] [address] 80983- 4067 Aug, Undifferentiated schizophrenia F20.3 [facility] [id number] [place] [address] 61291- 8798 Aug, [facility] [id number] [place] [address] 36937- 6879 14 Aug, 2016 Acute non-recurrent maxillary sinusitis J01.00 [facility] [id number] [place] [address] 28935- 1184 10 Aug, 2016 [facility] [id number] [place] [address] 19556- 8092 Aug, [facility] [address] [place] [address] 62096- 1106 Jul, Undifferentiated schizophrenia F20.3 [facility] [id number] [place] [address] 22910- 4936 Jul, Schizophrenia, undifferentiated F20.3 ; Social phobia F40.10 ; Post-traumatic stress disorder F43.10 ; Panic disorder F41.0 and Depressive disorder, not elsewhere classified F32.9 [facility] [id number] [place] [address] 09915- 7843 Jul, [facility] [id number] [place] [address] 74088- 9593 Jul, Schizophrenia, undifferentiated F20.3 ; Social phobia F40.10 ; Post-traumatic stress disorder F43.10 ; Panic disorder F41.0 and Depressive disorder, not elsewhere classified F32.9 [facility] [id number] [place] [address] 01155- 4369 Jul, [facility] [id number] [place] [address] 24715- 5609 Jul, Undifferentiated schizophrenia F20.3 ; Panic disorder with agoraphobia F40.01 ; Social phobia F40.10 ; Obesity E66.9 and Chronic posttraumatic stress disorder F43.12 [facility] [id number] [place] [address] 69014- 9761 Jun, [facility] [id number] [place] [address] 16424- 2155 Jun, [facility] [id number] [place] [address] 99220- 0794 Jun, Dental caries K02.9 [facility] [id number] [place] [address] 04249- 0446 Jun, Undifferentiated schizophrenia F20.3 [facility] [id number] [place] [address] 59004- 1943 May, [facility] [address] [place] [address] 58681- 8918 May, Undifferentiated schizophrenia F20.3 ; Panic disorder with agoraphobia F40.01 and Chronic post-traumatic stress disorder (PTSD) F43.12 [facility] [id number] [place] [address] 57973- 7525 May, [facility] [address] 10837- 2127 May, Undifferentiated schizophrenia F20.3 [facility] [id number] [place] [address] 66069- 1437 May, [facility] [id number] [place] [address] 17605- 0883 May, Dental examination Z01.20 [facility] [address] 05447- 1351 Apr, Undifferentiated schizophrenia F20.3 ; PTSD (post-traumatic stress disorder) F43.[address] [facility] [id number] [place] [address] 69753- 4042 Apr, [facility] [id number] [place] [address] 59315- 9338 15 Mar, 2016 [facility] [id number] [place] [address] 50860- 8268 Mar, [facility] [id number] [place] [address] 39579- 4589 Jan, Shortness of breath R06.02 and Bipolar disorder with psychotic features F31.9 [facility] [address] 27295- 7934 Jan, [facility] [id number] [place] [address] 13501- 4553 Jan, Increased intracranial pressure G93.2 ; Visual disturbance H53.9 and Bipolar II disorder F31.81 [facility] [id number] [place] [address] 43977- 1584 Jan, [facility] [address] 26419- 9357 Jan, [facility] [id number] [place] [address] 02032- 6540 Jan, [facility] [address] 44849- 3979 Jan, Acquired hypothyroidism E03.9 ; Depression F32.9 and Insomnia G47.00 [facility] [address] 29819- 7448 Jan, Exertional dyspnea R06.09 ; Heart palpitations R00.2 ; Hyperlipidemia, unspecified hyperlipidemia type E78.5 ; Hypothyroidism, unspecified type E03.9 and Hypokalemia E87.6 [facility] [id number] [place] [address] 89715- 1642 Dec, PTSD (post-traumatic stress disorder) F43.10 ; Depression F32.9 ; Insomnia G47.00 and Bipolar disorder with psychotic features F31.9 [facility] [id number] [place] [address] 43514- 7541 Dec, Increased intracranial pressure G93.2 [facility] [id number] [place] [address] 24377- 7902 Dec, [facility] [id number] [place] [address] 90442- 3702 Dec, Shortness of breath R06.02 [facility] [id number] [place] [address] 67271- 0358 Dec, Visual disturbance H53.9 and Headache, unspecified headache type R51 [facility] [id number] [place] [address] 39969- 3710 Dec, Insomnia G47.00 [facility] [address] 46500- 9566 Dec, Murmur R01.1 [facility] [id number] [place] [address] 05170- 1703 Dec, Murmur R01.1 ; Tunnel vision, unspecified laterality H53.489 ; Orthostatic hypertension I10 ; Shortness of breath R06.02 and Tachycardia R00.0 [facility] [id number] [place] [address] 88873- 0278 Dec, [facility] [id number] [place] [address] 35842- 1176 Dec, Hypothyroid E03.9 and Bipolar 1 disorder F31.9 [facility] [id number] [place] [address] 28112- 2148 Dec, Bipolar 1 disorder F31.9 [facility] [id number] [place] [address] 62055- 3540 Dec, [facility] [id number] [place] [address] 31249- 1058 October, Acquired hypothyroidism E03.9 ; Depression F32.9 and Insomnia G47.00 [facility] [id number] [place] [address] 24640- 5029 October, [facility] [id number] [place] [address] 41200- 4315 October, Bipolar 1 disorder F31.9 ; PTSD (post-traumatic stress disorder) F43.10 and Social phobia F40.10 [facility] [id number] [place] [address] 86228- 7055 Oct, Bipolar 1 disorder F31.9 and Insomnia G47.00 [facility] [id number] [place] [address] 19044- 0333 Oct, [facility] [id number] [place] [address] 25772- 9472 Oct, [facility] [id number] [place] [address] 58501- 0570 30 Sep, [address] [facility] [id number] [place] [address] 28471- 5900 17 Sep, 2015 Encounter for therapeutic drug level monitoring Z51.81 and Other usp (current) drug therapy Z79.899 [facility] [id number] [place] [address] 33693- 1687 Aug, Encounter for therapeutic drug level monitoring Z51.81 [facility] [id number] [place] [address] 48738- 2006 15 Sep, 2015 Acquired hypothyroidism E03.9 ; Leg pain M79.606 and Bipolar 1 disorder F31.9 [facility] [id number] [place] [address] 69203- 0637 Aug, [facility] [id number] [place] [address] 25290- 6301 Aug, [facility] [id number] [place] [address] 87096- 4185 Jul, Thyroid disorder E07.9 [facility] [id number] [place] [address] 95263- 3452 Jul, Rash R21 ; Abnormal LFTs R94.5 ; Acquired hypothyroidism E03.9 ; Sleep apnea in adult G47.33 and Fatty liver K76.0 [facility] [id number] [place] [address] 36358- 6170 Jun, [facility] [id number] [place] [address] 68373- 8583 Jun, [facility] [id number] [place] [address] 21708- 7487 Jun, Bipolar II disorder F31.81 and Social phobia, generalized F40.11 [facility] [id number] [place] [address] 38329- 1703 Mar, Bipolar II disorder 296.89 and Social phobia 300.23 [facility] [address], [place] [address]- 7118 Dec, [facility] [id number] [place] [address] 97570- 7551 Dec, [facility] [id number] [place] [address] 215610- 9945 Dec, Bipolar II disorder in partial or unspecified remission 296.89 and Social phobia, generalized 300.23 [facility] [id number] [place] [address] 56990- 6615 Oct, 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 [facility] [id number] [place] [address] 64369- 5206 Oct, [facility] [id number] [place] [address] 37281- 1961 Oct, [facility] [id number] [place] [address] 71344- 0350 Aug, [facility] [id number] [place] [address] 82130- 2568 Aug, [facility] [id number] [place] [address] 97358- 7311 Aug, [facility] [address], [place] [address]- 5617 Aug, [facility] [address] [address]- 2091 Aug, [facility] [address], [place] [address]- 9226 Aug, [facility] [id number] [place] [address] 059521- 7072 Aug, [facility] [address]- 8042 Aug, [facility] [address] [place] [address]- 0043 Jul, [facility] [address] [id number] [place] [address]- 3058 Jul, [facility] [place] [facility] [address] [id number] [place] 4620 Jul, [facility] [address] [id number] [place] [address]- 7116 Jul, [facility] [place] [facility] [address] [id number] [place] [address]- 1680 Jul, [facility] [address] [id number] [place] [address]- 0062 Jul, [facility] [address] [id number] [place] [address]- 5631 Jun, [facility] [address] [id number] [place] [address]- 4157 Jun, [facility] [address] [id number] [place] [address]- 6821 Jun, [facility] [place] [facility] [address] [id number] [place] [address]- 6567 Jun, [facility] [address] [id number] [place] [address]- 6393 Jun, [facility] [place] [facility] [address] [id number] [place] [address]- 1338 Jun, [facility] [place] [facility] [address] [id number] [place] [address]- 8609 Jun, [facility] [place] [facility] [address] [id number] [place] 3713 Jun, [facility] [place] [facility] [address] [id number] [place] 4624 Jun, [facility] [place] [facility] [address] [id number] [place] [address] Jun, [facility] [place] [facility] [address] [id number] [place] [address] Jun, [facility] [place] [facility] [address] [id number] [place] [address] Jun, [facility] [place] [facility] [address] [id number] [place] [address] Jun, [facility] [place] [facility] [address] [id number] [place] [address] Jun, [facility] [place] [facility] [address] [id number] [place] [address] Jun, [facility] [place] [facility] [address] [id number] [place] [address] Jun, [facility] [place] [facility] [address] [id number] [place] [address] 2019 May, [facility] [place] [facility] [address] [id number] [place] [address] May, [facility] [place] [facility] [address] [id number] [place] [address] May, [facility] [place] [facility] [address] [id number] [place] [address] May, [facility] [place] [facility] [address] [id number] [place] [address] May, [facility] [place] [facility] [address] [id number], [place] [address] May, [facility] [place] [facility] [address] [id number] [place] [address] Apr, [facility] [place] [facility] [address] [id number] [place] [address] Apr, [facility] [place] [facility] [address] [id number] [place] [address] Apr, [facility] [place] [facility] [address] [id number], [place] [address] Apr, [facility] [place] [facility] [address] [id number] [place] [address] 2002 Apr, [facility] [place] [facility] [address] [id number] [place] [address] Apr, [facility] [place] [facility] [address] [id number] [place] [address] Mar, [facility] [place] [facility] [address] [id number] [place] [address] Mar, [facility] [place] [facility] [address] [id number] [place] [address] Mar, [facility] [place] [facility] [address] [id number] [place] [address] Mar, [facility] [place] [facility] [address] [id number] [place] [address] Jan, [facility] [place] [facility] [address] [id number] [place] [address] Jan, [facility] [place] [facility] [address] [id number] [place] [address] Jan, [facility] [place] [facility] [address] [id number] [place] [address]- [address] Jan, [facility] [place] [facility] [address] [id number] [place] [address] Jan, [facility] [place] [facility] [address] [id number] [place] [address] Jan, [facility] [place] [facility] [address] [id number] [place] [address] Dec, [facility] [place] [facility] [address] [id number] [place] [address] Dec, [facility] [place] [facility] [address] [id number] [place] [address] Dec, [facility] [place] [facility] [address] [id number] [place] [address] Dec, [facility] [address] [id number] [place] [address] Dec, [facility] [place] [facility] [address] [id number] [place] [address] Dec, [facility] [address] [id number] [place] [address] October, [facility] [place] [facility] [address] [id number] [place] [address] October, [facility] [address] [id number] [place] [address] October, [facility] [place] [facility] [address] [id number] [place] [address] October, [facility] [address] [id number] [place] [address] October, [facility] [address] [id number] [place] [address] October, [facility] [place] [facility] [address] [id number] [place] [address] October, [facility] [address] [id number] [place] [address] October, [facility] [place] [facility] [address] [id number] [place] [address] 2012 Oct, [facility] [place] [facility] [address] [id number] [place] [address] Oct, [facility] [place] [facility] [address] [id number] [place] [address] Oct, [facility] [place] [facility] [address] [id number] [place] [address] Oct, [facility] [place] [facility] [address] [id number] [place] [address] Oct, [facility] [place] [facility] [address] [id number] [place] [address] 7[address] Aug, [facility] [place] [facility] [address] [id number] [place] [address] 5865 Aug, [facility] [place] [facility] [address] [id number] [place] [address] 7985 Aug, [facility] [place] [facility] [address] [id number] [place] [address] 6[address] Aug, [facility] [place] [facility] [address] [id number] [place] [address] 75[address] Aug, [facility] [place] [facility] [address] [id number] [place] [address] Aug, [facility] [place] [facility] [address] [id number] [place] [address] Jul, [facility] [place] [facility] [address] [id number] [place] [address] Jul, [facility] [place] [facility] [address] [id number] [place] [address]- 2210 Jul, [facility] [place] [facility] [address] [id number] [place] [address] 68[address] Jul, [facility] [place] [facility] [address] [id number] [place] [address] Jul, [facility] [place] [facility] [address] [id number], [place] [address] Jul, [facility] [place] [facility] [address] [id number] [place] [address] Jun, [facility] [place] [facility] [address] [id number] [place] [address] 60[address] Jun, [facility] [place] [facility] [address] [facility] [id number] [place] [address]- [address] Jun, [facility] [place] [facility] [address] [id number] [place] [address] 1249 Jun, [facility] [place] [facility] [address] [id number] [place] [address] Jun, [facility] [place] [facility] [address] [id number] [place] [address] 114[address] Jun, [facility] [place] [facility] [address] [id number] [place] [address] May, [facility] [place] [facility] [address] [id number] [place] [address] 18[address] May, [facility] [place] [facility] [address] [id number] [place] [address] Apr, [facility] [place] [facility] [address] [id number] [place] [address] 1981 Apr, [facility] [place] [facility] [address] [id number] [place] [address] Apr, [facility] [place] [facility] [address] [id number] [place] [address] 73[address] Apr, [facility] [place] [facility] [address] [id number] [place] [address] 90[address] Apr, [facility] [place] [facility] [address] [facility] [id number] [place] [address] 12[address] Apr, [facility] [place] [facility] [address] [id number] [place] [address]- [address] Apr, [facility] [place] [facility] [address] [id number], [place] [address] Apr, [facility] [place] [facility] [address] [id number] [place] [address]- 8024 Apr, [facility] [place] [facility] [address] [id number] [place] [address]- [address] Apr, [facility] [place] [facility] [address] [id number] [place] [address]- 2320 Apr, [facility] [place] [facility] [address] [id number] [place] [address]- [address] 23 Mar, 2012 [facility] [place] [facility] [address] [id number] [place] [address]- [address] 20 Mar, 2012 [facility] [place] [facility] [address] [id number] [place] [address]- 3046 20 Mar, 2012 [facility] [place] [facility] [address] [id number] [place] [address]- 9[address] 14 Mar, 2012 [facility] [address] [id number] [place] [address]- 8453 12 Mar, 2012 [facility] [place] [facility] [address] [id number] [place] [address]- 279[address] Mar, 2012 [facility] [address] [id number] [place] [address]- 2575 Mar, 2012 [facility] [address] [id number] [place] [address] 06[address] Jan, [facility] [place] [facility] [address] [id number] [place] [address]- 288[address] Jan, [facility] [place] [facility] [address] [id number] [place] [address]- 6[address] Jan, [facility] [place] [facility] [address] [id number] [place] [address]- 9098 Jan, [facility] [place] [facility] [address] [id number] [place] [address]- [address] Jan, [facility] [place] [facility] [address] [id number] [place] [address]- 4949 Jan, [facility] [place] [facility] [address] [id number] [place] [address]- 3441 Jan, [facility] [place] [facility] [address] [id number] [place] [address]- 3610 Dec, [facility] [place] [facility] [address] [id number] [place] [address]- 7411 Dec, [facility] [address] [id number] [place] [address]- 8935 Dec, [facility] [address] [id number] [place] [address] Dec, [facility] [address] [id number] [place] [address]- 3553 Dec, [facility] [address] [id number] [place] [address]- 1610 Dec, [facility] [address] [id number] [place] [address]- 1075 October, [facility] [address] [id number] [place] [address]- 9254 October, [facility] [address] [id number] [place] [address]- 3530 October, [facility] [address] [id number] [place] [address]- 8027 October, [facility] [address] [id number] [place] [address]- 1823 Oct, [facility] [address] [id number] [place] [address]- 4764 Oct, [facility] [address] [id number] [place] [address]- 1825 27 Aug, 2012 [facility] [place] [facility] [address] [id number] [place] [address]- 2588 26 Aug, 2012 [facility] [place] [facility] [address] [id number] [place] [address]- 5086 21 Aug, 2012 [facility] [place] [facility] [address] [id number] [place] [address]- 3158 20 Aug, 2012 [facility] [place] [facility] [address] [id number] [place] [address]- 8507 18 Aug, 2012 [facility] [place] [facility] [address] [id number] [place] [address]- 9610 Aug, [facility] [address] [id number] [place] [address]- 1826 Aug, [facility] [place] [facility] [address] [id number] [place] [address] 2546 Aug, [facility] [address] [id number] [place] [address] 2546 Aug, [facility] [address] [id number] [place] [address] 254 Aug, [facility] [address] [id number] [place] [address]- 7606 Aug, [facility] [address] [facility] [id number] [place] [address]- 8256 Aug, [facility] [address] [facility] [facility] [id number] [place] [address]- 5324 Aug, [facility] [address] [id number] [place] [address]- 4619 Aug, [facility] [address] [facility] [facility] [id number] [place] [address]- 9777 Jul, [facility] [address] [facility] [id number] [place] [address]- 8051 Jul, [facility] [address] [id number] [place] [address]- 0195 Jul, [facility] [place] [facility] [address] [id number] [place] [address]- 0460 Jul, [facility] [place] [facility] [address] [id number] [place] [address]- 6796 Jun, [facility] [place] [facility] [address] [id number] [place] [address]- 4828 Jun, [facility] [address] [id number] [place] [address] Jun, [facility] [address] [facility] [id number] [place] [address] Jun, [facility] [address] [facility] [id number], [place] [address] May, [facility] [address] [facility] [id number] [place] [address]- [address] May, IMMUNIZATIONS Vaccine Route Administration Date Status ARISTADA 882 MG/2.5 ML (PT'S OWN) IM Intramuscular Mar 21, 2017 Administered SOCIAL HISTORY Never Assessed REASON FOR VISIT Injection- Steven Person MA PLAN OF CARE Activity Details Follow Up 4 Weeks Reason: VITAL SIGNS MEDICATIONS Unknown Medications RESULTS No Results PROCEDURES Procedure Date Ordered Result Body Site ARISTADA 882 MG/2.5 ML (PT'S OWN) Mar 21, 2017 THER/PROPH/DIAG INJ, SC/IM Mar 21, 2017 INSTRUCTIONS MEDICATIONS ADMINISTERED No Known [...]
--- OUTSIDE RECORDS SUMMARY | 2018-09-02 18:23 | XMS REPORT ---
Author Author ALLY GOMEZ [facility] Address [address] [place] [address] Care Team Providers Care Painter Maintenance Name Role Phone ALLY GOMEZ Unavailable PROBLEMS Type Condition ICD9-CM Code [id number] Code Onset Dates Condition Status SNOMED Code Problem Shortness of breath R06.02 Active 627201538 Problem Panic disorder with agoraphobia F40.01 Active 66934605 Problem Undifferentiated schizophrenia F20.3 Active 821882889 Problem Hypothyroid E03.9 Active 81873610 Problem Abuse, drug or alcohol F19.10 Active 26908240 Problem BMI 50.0-59.9, adult Z68.43 Active 126728765 Problem Sleep apnea in adult G47.33 Active 58595720 Problem Depressive disorder, not elsewhere classified F32.9 Active 61426719 Problem Chronic posttraumatic stress disorder F43.12 Active 307139846 Problem Panic disorder without agoraphobia F41.0 Active 49789783 Problem Panic disorder F41.0 Active 758245088 Problem Neuropathy G62.9 Active 581229921 Problem Social phobia F40.10 Active 22398016 Problem Fatty liver K76.0 Active 015965449 Problem Obesity E66.9 Active 143749057 Problem Orthostatic hypertension I10 Active 09145619 Problem Tunnel vision, unspecified laterality H53.489 Active 165023133 Problem Restless legs syndrome G25.81 Active 460472442 Problem Tachycardia R00.0 Active 9024432 Problem Encounter for therapeutic drug level monitoring Z51.81 Active 176957927 Problem Murmur R01.1 Active [id number] ALLERGIES No Information ENCOUNTERS Encounter Location Date Diagnosis [facility] [address] [facility] [id number] [address] Dec, [facility] [id number] [address] October, [facility] [address], [place] [address] 27 Aug, 2017 Undifferentiated schizophrenia F20.3 [facility] [id number] [place] [address] 24352- 1416 19 Aug, 2017 [facility] [address] [place] [address] 6736 13 Aug, 2017 Undifferentiated schizophrenia F20.3 ; Panic disorder with agoraphobia F40.01 ; Chronic posttraumatic stress disorder F43.12 and BMI 50.0- 59.9, adult Z68.43 [facility] [address] [place] [address] 97940- 0077 05 Aug, 2017 [facility] [id number] [place] [address] 81387- 0369 Aug, [facility] [id number] [place] [address] 10931- 8138 Aug, Undifferentiated schizophrenia F20.3 [facility] [id number] [place] [address] 06668- 8575 Aug, Hypothyroid E03.9 [facility] [id number] [place] [address] 12444- 5276 Jul, Undifferentiated schizophrenia F20.3 [facility] [id number] [place] [address] 97227- 1856 Jul, [facility] [address] [place] [address] 78417- 9800 Jul, Undifferentiated schizophrenia F20.3 ; Chronic posttraumatic stress disorder F43.12 ; Panic disorder with agoraphobia F40.01 and BMI 50.0-59.9, adult Z68.43 [facility] [address], [place] [address] 8306 15 Jul, 2017 [facility] [address], [place] [address]- 8406 08 Jul, 2017 Acute pain of right shoulder M25.511 ; High risk medication use Z79.899 ; Needle stick injury W27.3XXA ; Hypothyroid E03.9 and BMI 50.0-59.9 , adult Z68.43 [facility] [id number] [place] [address] 70984- 5932 Jun, Undifferentiated schizophrenia F20.3 [facility] [address] 09553- 4694 Jun, Undifferentiated schizophrenia F20.3 ; Panic disorder without agoraphobia F41.0 ; Chronic posttraumatic stress disorder F43.12 and BMI 50.0-59.9, adult Z68.43 [facility] [address] 03422- 5570 May, [facility] [address] 16626- 9869 May, [facility] [address] 11859- 4405 May, Undifferentiated schizophrenia F20.3 [facility] [id number] [place] [address] 85779- 8863 May, [facility] [address] 58429- 4616 May, [facility] [id number] [place] [address] 60056- 3495 May, Hypothyroid E03.9 [facility] [id number] [place] [address] 57144- 8517 13 May, 2017 [facility] [id number] [place] [address] 31872- 9511 May, [facility] [id number] [place] [address] 43427- 6971 07 May, 2017 Chronic posttraumatic stress disorder F43.12 ; Panic disorder with agoraphobia F40.01 ; Undifferentiated schizophrenia F20.3 ; BMI 40.0-44.9, adult Z68.41 and Obesity E66.9 [facility] [address], [place] [address] 7597 07 May, 2017 Shortness of breath R06.02 [facility] [id number] [place] [address] 54705- 9230 May, [facility] [id number] [place] [address] 25120- 0358 Apr, Undifferentiated schizophrenia F20.3 [facility] [id number] [place] [address] 99823- 5832 Apr, [facility] [id number] [place] [address] 63673- 4264 Apr, [facility] [id number] [place] [address] 93486- 9999 Mar, Undifferentiated schizophrenia F20.3 ; Panic disorder without agoraphobia F41.0 and Chronic posttraumatic stress disorder F43.12 [facility] [id number] [place] [address] 75339- 1432 Mar, Undifferentiated schizophrenia F20.3 [facility] [id number] [place] [address] 66024- 7414 18 Mar, 2017 [facility] [id number] [place] [address] 96440- 9665 08 Mar, 2017 [facility] [id number] [place] [address] 32962- 9958 07 Mar, 2017 [facility] [address] [place] [address] 71756- 8725 Jan, Undifferentiated schizophrenia F20.3 [facility] [id number] [place] [address] 72303- 4159 Jan, [facility] [id number] [place] [address] 96613- 2451 Jan, [facility] [id number] [place] [address] 33499- 4586 Jan, [facility] [address] [id number] [id number] Dec, Needle stick injury W27.3XXA [facility] [address], [place] [address]- 4015 Dec, Needle stick injury W27.3XXA [facility] [address], [place] [address]- 9898 Dec, Undifferentiated schizophrenia F20.3 [facility] [address], [place] [address]- 7882 Dec, [facility] [id number] [place] [address] 89825- 7804 Dec, [facility] [address], [place] [address]- 2176 Dec, Undifferentiated schizophrenia F20.3 ; Panic disorder with agoraphobia F40.01 and Chronic posttraumatic stress disorder F43.12 [facility] [address], [place] [address]- 0664 Dec, [facility] [address], [place] [address]- 0230 October, [facility] [address], [place] [address]- 4370 October, Undifferentiated schizophrenia F20.3 [facility] [address], [place] [address]- 5207 October, [facility] [address], [place] [address]- 2288 October, [facility] [address], [place] [address]- 7287 Oct, Undifferentiated schizophrenia F20.3 ; Panic disorder with agoraphobia F40.01 ; Chronic posttraumatic stress disorder F43.12 and Obesity E66.9 [facility] [address], [place] [address]- 2831 Oct, [facility] [address], [place] [address]- 0235 Oct, [facility] [id number] [place] [address] 79227- 5750 Aug, Undifferentiated schizophrenia F20.3 [facility] [address] [place] [address] 37574- 1152 Aug, [facility] [id number] [place] [address] 41361- 0033 Aug, Muscle spasm M62.838 [facility] [id number] [place] [address] 55893- 1321 Aug, Undifferentiated schizophrenia F20.3 [facility] [address] [place] [address] 46429- 2044 Aug, Undifferentiated schizophrenia F20.3 ; Panic disorder with agoraphobia F40.01 ; Chronic posttraumatic stress disorder F43.12 ; High risk medication use Z79.899 and Social phobia F40.10 [facility] [address] [place] [address] 15288- 0157 Aug, Undifferentiated schizophrenia F20.3 [facility] [address], [place] [address]- 0203 Aug, [facility] [address] [place] [address] 51155- 6536 Aug, Acute non-recurrent maxillary sinusitis J01.00 [facility] [address], [place] [address]- 4419 Aug, [facility] [id number] [place] [address] 32083- 8817 Aug, [facility] [address], [place] [address]- 8102 Jul, Undifferentiated schizophrenia F20.3 [facility] [id number] [place] [address] 67475- 9541 Jul, Schizophrenia, undifferentiated F20.3 ; Social phobia F40.10 ; Post-traumatic stress disorder F43.10 ; Panic disorder F41.0 and Depressive disorder, not elsewhere classified F32.9 [facility] [address] [place] [address] 89437- 9216 Jul, [facility] [id number] [place] [address] 51742- 2461 Jul, Schizophrenia, undifferentiated F20.3 ; Social phobia F40.10 ; Post-traumatic stress disorder F43.10 ; Panic disorder F41.0 and Depressive disorder, not elsewhere classified F32.9 [facility] [id number] [place] [address] 38725- 6440 Jul, [facility] [id number] [place] [address] 26550- 7661 Jul, Undifferentiated schizophrenia F20.3 ; Panic disorder with agoraphobia F40.01 ; Social phobia F40.10 ; Obesity E66.9 and Chronic posttraumatic stress disorder F43.12 [facility] [id number] [place] [address] 81004- 6169 Jun, [facility] [id number] [place] [address] 48550- 3650 Jun, [facility] [id number] [place] [address] 34873- 7448 Jun, Dental caries K02.9 [facility] [id number] [place] [address] 11617- 7480 Jun, Undifferentiated schizophrenia F20.3 [facility] [id number] [place] [address] 37640- 3331 30 May, 2016 [facility] [id number] [place] [address] 88061- 8058 May, Undifferentiated schizophrenia F20.3 ; Panic disorder with agoraphobia F40.01 and Chronic post-traumatic stress disorder (PTSD) F43.12 [facility] [id number] [place] [address] 39797- 0904 May, [facility] [address] 44240- 4444 May, Undifferentiated schizophrenia F20.3 [facility] [address] 95995- 5493 May, [facility] [address] 62790- 8733 May, Dental examination Z01.20 [facility] [address] 11622- 8366 Apr, Undifferentiated schizophrenia F20.3 ; PTSD (post-traumatic stress disorder) F43.10 and Obesity E66.9 [facility] [address] 31320- 1028 Apr, [facility] [address] 67720- 1750 Mar, [facility] [address] 35236- 7487 Mar, [facility] [address] 05793- 4719 Jan, Shortness of breath R06.02 and Bipolar disorder with psychotic features F31.9 [facility] [id number] [place] [address] 66887- 2007 Jan, [facility] [address] [place] [address] 49545- 7360 Jan, Increased intracranial pressure G93.2 ; Visual disturbance H53.9 and Bipolar II disorder F31.81 [facility] [id number] [place] [address] 59740- 1754 Jan, [facility] [id number] [place] [address] 48268- 3829 Jan, [place] [id number] [place] [address] 73276- 2664 Jan, [place] [address] 15496- 3158 Jan, Acquired hypothyroidism E03.9 ; Depression F32.9 and Insomnia G47.00 [place] [address] 97325- 2184 Jan, Exertional dyspnea R06.09 ; Heart palpitations R00.2 ; Hyperlipidemia, unspecified hyperlipidemia type E78.5 ; Hypothyroidism, unspecified type E03.9 and Hypokalemia E87.6 [place] [address] 14877- 3288 Dec, PTSD (post-traumatic stress disorder) F43.10 ; Depression F32.9 ; Insomnia G47.00 and Bipolar disorder with psychotic features F31.9 [place] [address] 20461- 0661 Dec, Increased intracranial pressure G93.2 [place] [address] 77734- 9048 Dec, [place] [address] 15229- 8661 Dec, Shortness of breath R06.02 [place] [id number] [place] [address] 43707- 5424 Dec, Visual disturbance H53.9 and Headache, unspecified headache type R51 [place] [id number] [place] [address] 44533- 5286 Dec, Insomnia G47.00 [place] [address] 86826- 5577 Dec, Murmur R01.1 [place] [id number] [place] [address] 01039- 4680 Dec, Murmur R01.1 ; Tunnel vision, unspecified laterality H53.489 ; Orthostatic hypertension I10 ; Shortness of breath R06.02 and Tachycardia R00.0 [place] [address] 29671- 9748 Dec, [place] [address] 19825- 3306 Dec, Hypothyroid E03.9 and Bipolar 1 disorder F31.9 [place] [address] 07599- 6753 Dec, Bipolar 1 disorder F31.9 [place] [address] 95551- 2723 Dec, [place] [address] 90605- 8070 October, Acquired hypothyroidism E03.9 ; Depression F32.9 and Insomnia G47.00 [place] [address] 47487- 5580 October, [place] [address] 57488- 6056 October, Bipolar 1 disorder F31.9 ; PTSD (post-traumatic stress disorder) F43.10 and Social phobia F40.10 [place] [id number] [place] [address] 87949- 8736 Oct, Bipolar 1 disorder F31.9 and Insomnia G47.00 [place] [id number] [place] [address] 16524- 9215 Oct, [place] [address] [place] [address] 84624- 2797 Oct, [place] [address] 00981- 6981 Aug, Hypothyroid E03.9 [place] [id number] [place] [address] 14687- 8816 Aug, Encounter for therapeutic drug level monitoring Z51.81 and Other snf (current) drug therapy Z79.899 [facility] [address] [place] [address] 84926- 4762 17 Sep, 2015 Encounter for therapeutic drug level monitoring Z51.81 [facility] [id number] [place] [address] 05409- 4616 15 Sep, 2015 Acquired hypothyroidism E03.9 ; Leg pain M79.606 and Bipolar 1 disorder F31.9 [facility] [id number] [place] [address] 57825- 1810 Aug, [facility] [address] 54766- 9134 Aug, [facility] [address] 52491- 3120 Jul, Thyroid disorder E07.9 [facility] [address] 56792- 8282 Jul, Rash R21 ; Abnormal LFTs R94.5 ; Acquired hypothyroidism E03.9 ; Sleep apnea in adult G47.33 and Fatty liver K76.0 [facility] [address] [place] [address] 09165- 5830 Jun, [facility] [id number] [place] [address] 17692- 9192 Jun, [facility] [id number] [place] [address] 01643- 7088 Jun, Bipolar II disorder F31.81 and Social phobia, generalized F40.11 [facility] [id number] [place] [address] 16867- 7952 Mar, Bipolar II disorder 296.89 and Social phobia 300.23 [facility] [id number] [place] [address] 25057- 7591 Dec, [facility] [address] 68765- 7545 Dec, [facility] [address], [place] [address]- 8578 Dec, Bipolar II disorder in partial or unspecified remission 296.89 and Social phobia, generalized 300.23 [facility] [address], [place] [address]- 2766 30 Oct, 2014 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 [facility] [address] [place] [address]- 7786 Oct, [facility] [address], [place] [address]- 8267 Oct, [facility] [address] [address]- 3806 Aug, [facility] [address] [place] [address]- 4179 Aug, [facility] [address], [place] [address]- 6736 Aug, [facility] [address], [place] [address]- 6952 Aug, [facility] [address] 1787 Aug, [facility] [address], [place] [address]- 1806 Aug, [facility] [address], [place] [address]- 0126 Aug, [facility] [id number], [place] [address]- 8179 Aug, [facility] [address], [place] [address]- 7796 Jul, [facility] [address], [place] [address]- 8146 Jul, [facility] [address] [place] [address]- 9958 Jul, [facility] [place] [facility] [address] [id number] [place] [address]- 7806 Jul, [facility] [place] [facility] [address] [id number] [place] [address]- 4235 Jul, [facility] [place] [facility] [address] [id number] [place] [address]- 3896 Jul, [facility] [place] [facility] [address] [id number] [place] [address]- 9805 Jun, [facility] [place] [facility] [address] [id number] [place] [address]- 9614 Jun, [facility] [place] [facility] [address] [id number] [place] [address]- 7883 Jun, [facility] [address] [id number] [place] [address]- 5458 Jun, [facility] [place] [facility] [address] [id number] [place] [address]- 9667 Jun, [facility] [place] [facility] [address] [id number] [place] [address]- 7447 Jun, [facility] [place] [facility] [address] [id number] [place] [address]- 3994 Jun, [facility] [place] [facility] [address] [id number] [place] [address]- 7989 Jun, [facility] [place] [facility] [address] [id number] [place] [address]- 6592 Jun, [facility] [place] [facility] [address] [id number] [place] [address]- 0727 Jun, [facility] [place] [facility] [address] [id number] [place] [address]- 2707 Jun, [facility] [place] [facility] [address] [id number] [place] 2663 Jun, [facility] [place] [facility] [address] [id number] [place] [address]- 7496 Jun, [facility] [place] [facility] [address] [id number] [place] 8940 Jun, [facility] [place] [facility] [address] [id number] [place] [address]- 9247 Jun, [facility] [place] [facility] [address] [id number] [place] [address]- 4675 Jun, [facility] [place] [facility] [address] [id number] [place] [address]- 4889 May, [facility] [place] [facility] [address] [id number] [place] [address]- 0105 May, [facility] [place] [facility] [address] [id number] [place] 2307 May, [facility] [place] [facility] [address] [id number] [place] [address]- 2730 May, [facility] [place] [facility] [address] [id number] [place] [address]- 1496 May, [facility] [place] [facility] [address] [id number] [place] [address]- 7569 May, [facility] [place] [facility] [address] [id number] [place] [address]- 9756 Apr, [facility] [place] [facility] [address] [id number] [place] [address]- 6047 Apr, [facility] [place] [facility] [address] [id number] [place] [address]- 5156 Apr, [facility] [place] [facility] [address] [id number] [place] [address]- 4998 Apr, [facility] [place] [facility] [address] [id number] [place] [address]- 4737 Apr, [facility] [place] [facility] [address] [id number] [place] [address]- 9810 Apr, [facility] [place] [facility] [address] [id number] [place] [address] Mar, [facility] [place] [facility] [address] [id number] [place] [address] Mar, [facility] [place] [facility] [address] [id number] [place] [address] Mar, [facility] [place] [facility] [address] [id number] [place] [address] Mar, [facility] [place] [facility] [address] [id number] [place] [address] Jan, [facility] [place] [facility] [address] [id number] [place] [address] Jan, [facility] [place] [facility] [address] [id number] [place] [address] Jan, [facility] [place] [facility] [address] [id number] [place] [address] Jan, [facility] [place] [facility] [address] [id number] [place] [address] Jan, [facility] [place] [facility] [address] [id number] [place] [address] Jan, [facility] [place] [facility] [address] [id number], [place] [address] Dec, [facility] [place] [facility] [address] [id number], [place] [address] Dec, [facility] [place] [facility] [address] [id number] [place] [address] Dec, [facility] [place] [facility] [address] [id number], [place] [address] Dec, [facility] [place] [facility] [address] [id number] [place] [address] Dec, [facility] [place] [facility] [address] [id number] [place] [address] Dec, [facility] [place] [facility] [address] [id number] [place] [address] October, [facility] [place] [facility] [address] [id number] [place] [address] October, [facility] [place] [facility] [address] [id number] [place] [address] October, [facility] [place] [facility] [address] [id number] [place] [address] October, [facility] [place] [facility] [address] [id number] [place] [address] October, [facility] [place] [facility] [address] [id number] [place] [address] October, [facility] [place] [facility] [address] [id number] [place] [address] October, [facility] [place] [facility] [address] [id number] [place] [address] October, [facility] [place] [facility] [address] [id number] [place] [address] Oct, [facility] [place] [facility] [address] [id number] [place] [address] Oct, [facility] [place] [facility] [address] [id number] [place] [address] Oct, [facility] [place] [facility] [address] [id number] [place] [address] Oct, [facility] [place] [facility] [address] [id number] [place] [address] Oct, [facility] [place] [facility] [address] [id number] [place] [address] Aug, [facility] [place] [facility] [address] [id number] [place] [address] Aug, [facility] [place] [facility] [address] [id number] [place] [address] Aug, [facility] [place] [facility] [address] [id number] [place] [address] Aug, [facility] [place] [facility] [address] [id number] [place] [address] Aug, [facility] [place] [facility] [address] [id number] [place] [address] Aug, [facility] [place] [facility] [address] [id number] [place] [address] Jul, [facility] [place] [facility] [address] [id number] [place] [address] Jul, [facility] [place] [facility] [address] [id number] [place] [address] Jul, [facility] [place] [facility] [address] [id number] [place] [address] Jul, [facility] [place] [facility] [address] [id number] [place] [address] Jul, [facility] [place] [facility] [address] [id number] [place] [address] Jul, [facility] [place] [facility] [address] [id number] [place] [address] Jun, [facility] [place] [facility] [address] [id number] [place] [address] Jun, [facility] [place] [facility] [address] [id number] [place] [address] Jun, [facility] [place] [facility] [address] [id number] [place] [address] Jun, [facility] [place] [facility] [address] [id number] [place] [address] Jun, [facility] [place] [facility] [address] [id number], [place] [address] Jun, [facility] [place] [facility] [address] [id number] [place] [address] May, [facility] [place] [facility] [address] [id number][place] [address] May, [facility] [place] [facility] [address] [id number] [place] [address] Apr, [facility] [place] [facility] [address] [id number] [place] [address] Apr, [facility] [place] [facility] [address] [id number] [place] [address] Apr, [facility] [place] [facility] [address] [id number] [place] [address] Apr, [facility] [place] [facility] [address] [id number], [place] [address] Apr, [facility] [place] [facility] [address] [id number], [place] [address] Apr, [facility] [place] [facility] [address] [id number] [place] [address] Apr, [facility] [place] [facility] [address] [id number], [place] [address]- [address] Apr, [facility] [place] [facility] [address] [id number], [place] [address] Apr, [facility] [place] [facility] [address] [id number], [place] [address] Apr, [facility] [place] [facility] [address] [id number], [place] [address] Apr, [facility] [place] [facility] [address] [id number], [place] [address] Mar, [facility] [place] [facility] [address] [id number], [place] [address] 20 Mar, 2013 [facility] [place] [facility] [address] [id number] [place] [address] 20 Mar, 2012 [facility] [place] [facility] [address] [id number] [place] [address] 14 Mar, 2012 [facility] [place] [facility] [address] [id number] [place] [address] 2546 12 Mar, 2012 [facility] [place] [facility] [address] [id number] [place] [address] 2546 06 Mar, 2012 [facility] [place] [facility] [address] [id number] [place] [address] 2549 06 Mar, 2012 [facility] [place] [facility] [address] [id number] [place] [address] Jan, [facility] [place] [facility] [address] [id number] [place] [address] Jan, [facility] [place] [facility] [address] [id number] [place] [address] Jan, [facility] [place] [facility] [address] [id number] [place] [address]- [address] Jan, [facility] [place] [facility] [address] [id number] [place] [address]- [address] Jan, [facility] [place] [facility] [address] [id number] [place] [address]- 8597 Jan, [facility] [place] [facility] [address] [id number] [place] [address]- [address] Jan, [facility] [place] [facility] [address] [id number] [place] [address]- [address]247 Dec, [facility] [place] [facility] [address] [id number] [place] [address] 2543 Dec, [facility] [place] [facility] [address] [id number] [place] [address] 2549 Dec, [facility] [place] [facility] [address] [id number] [place] [address]- [address] Dec, [facility] [address] [id number] [place] [address]- [address]708 Dec, [facility] [place] [facility] [address] [id number] [place] [address] Dec, [facility] [place] [facility] [address] [id number] [place] [address]46 October, [facility] [place] [facility] [address] [id number] [place] [address]- [address] October, [facility] [place] [facility] [address] [id number] [place] [address]- 8718 October, [facility] [place] [facility] [address] [id number] [place] [address]- [address] October, [facility] [place] [facility] [address] [id number] [place] [address]- 3146 Oct, [facility] [place] [facility] [address] [id number] [place] [address]- [address]594 Oct, [facility] [place] [facility] [address] [id number] [place] [address]- 1612 Aug, [facility] [place] [facility] [address] [id number] [place] [address]- [address]107 Aug, [facility] [place] [facility] [address] [id number] [place] [address]- [address] Aug, [facility] [place] [facility] [address] [id number], [place] [address] 2542 Aug, [facility] [place] [facility] [address] [id number] [place] [address]- 2542 Aug, [facility] [place] [facility] [address] [id number] [place] [address]- 8636 Aug, [facility] [place] [facility] [address] [id number] [place] [address]- 2546 Aug, [facility] [place] [facility] [address] [id number] [place] [address] 2546 25 Aug, 2012 [facility] [address] [id number] [place] [address] 2546 Aug, [facility] [place] [facility] [address] [id number] [place] [address] 2546 11 Aug, 2012 [facility] [place] [facility] [address] [id number] [place] [address] 2546 Aug, [facility] [place] [facility] [address] [id number] [place] [address] 2546 08 Aug, 2012 [facility] [place] [facility] [address] [id number] [place] [address] 2546 Aug, [facility] [place] [facility] [address] [id number] [place] [address] 2546 Aug, [facility] [place] [facility] [address] [id number] [place] [address] 2540 30 Jul, 2012 [facility] [address] [id number] [place] [address] 254 Jul, [facility] [place] [facility] [address] [id number] [place] [address] 2549 Jul, [facility] [address] [id number] [place] [address] 2540 Jul, [facility] [address] [id number] [place] [address] 2546 Jun, [facility] [place] [facility] [address] [id number] [place] [address] 2546 Jun, [facility] [place] [facility] [address] [id number] [place] [address] 2546 Jun, [facility] [place] [facility] [address] [id number] [place] [address] 2546 Jun, [facility] [place] [facility] [address] [id number] [id number] [address] May, [facility] [address] [facility] [id number] [place] [address] May, IMMUNIZATIONS No Known Immunizations SOCIAL HISTORY [...]
--- OUTSIDE RECORDS SUMMARY | 2018-09-02 18:25 | XMS REPORT ---
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 Name Role Phone JOSE LARRY Unavailable PROBLEMS Type Condition ICD9-CM Code [id number] Code Onset Dates Condition Status SNOMED Code Problem Undifferentiated schizophrenia F20.3 Active 611383635 Problem Chronic posttraumatic stress disorder F43.12 Active 288259238 Problem Panic disorder with agoraphobia F40.01 Active 41677396 Problem Other chronic pain G89.29 Active 09520210 Problem Fatty liver K76.0 Active 816263819 Problem Hypothyroid E03.9 Active 54761348 Problem Abuse, drug or alcohol F19.10 Active 02924202 Problem Sleep apnea in adult G47.33 Active 19975028 Problem Panic disorder F41.0 Active 177317400 Problem Depressive disorder, not elsewhere classified F32.9 Active 78741213 Problem BMI 50.0-59.9, adult Z68.43 Active 566005510 Problem Panic disorder without agoraphobia F41.0 Active 66156324 Problem Social phobia F40.10 Active 17025367 Problem Restless legs syndrome G25.81 Active 024381062 Problem Obesity E66.9 Active 582305527 Problem Neuropathy G62.9 Active 161262974 Problem Tunnel vision, unspecified laterality H53.489 Active 296008433 Problem Tachycardia R00.0 Active 3031645 Problem Encounter for therapeutic drug level monitoring Z51.81 Active 392760590 Problem Murmur R01.1 Active 583710501 Problem Orthostatic hypertension I10 Active 21617921 Problem Shortness of breath R06.02 Active 226223394 ALLERGIES No Information ENCOUNTERS Encounter Location Date Diagnosis [facility] [address] [facility] [id number] [address] Dec, [facility] [id number] [place] [address] 23217- 7718 Dec, [facility] [id number] [place] [address] 77483- 6739 October, [facility] [id number] [place] [address] 54891- 3887 October, Pain in right shoulder M25.511 and Other chronic pain G89.29 [facility] [address] 78865- 4484 October, Hypothyroid E03.9 [facility] [id number] [place] [address] 87146- 2927 Oct, Undifferentiated schizophrenia F20.3 [facility] [id number] [place] [address] 32828- 2451 Oct, [facility] [id number] [place] [address] 86870- 3898 Oct, [facility] [id number] [place] [address] 44721- 7394 Aug, Undifferentiated schizophrenia F20.3 [facility] [id number] [place] [address] 25087- 0066 Aug, [facility] [id number] [place] [address] 20350- 8801 Aug, Undifferentiated schizophrenia F20.3 ; Panic disorder with agoraphobia F40.01 ; Chronic posttraumatic stress disorder F43.12 and BMI 50.0- 59.9, adult Z68.43 [facility] [id number] [place] [address] 22328- 6534 Aug, [facility] [address] 07888- 1629 Aug, [facility] [id number] [place] [address] 90892- 2391 Aug, Undifferentiated schizophrenia F20.3 [facility] [id number] [place] [address] 83073- 7457 Aug, Hypothyroid E03.9 [facility] [id number] [place] [address] 21430- 5063 Jul, Undifferentiated schizophrenia F20.3 [facility] [id number] [place] [address] 35996- 1816 Jul, [facility] [id number] [place] [address] 36863- 1503 Jul, Undifferentiated schizophrenia F20.3 ; Chronic posttraumatic stress disorder F43.12 ; Panic disorder with agoraphobia F40.01 and BMI 50.0-59.9, adult Z68.43 [facility] [id number] [place] [address] 94293- 0907 15 Jul, 2017 [facility] [id number] [place] [address] 40451- 2472 Jul, Acute pain of right shoulder M25.511 ; High risk medication use Z79.899 ; Needle stick injury W27.3XXA ; Hypothyroid E03.9 and BMI 50.0-59.9 , adult Z68.43 [facility] [id number] [place] [address] 75811- 1554 Jun, Undifferentiated schizophrenia F20.3 [facility] [id number] [place] [address] 63412- 6972 14 Jun, 2017 Undifferentiated schizophrenia F20.3 ; Panic disorder without agoraphobia F41.0 ; Chronic posttraumatic stress disorder F43.12 and BMI 50.0-59.9, adult Z68.43 [facility] [address] [address] 6611 May, [facility] [id number] [place] [address] 65549- 3435 May, [facility] [id number] [place] [address] 88471- 9138 May, Undifferentiated schizophrenia F20.3 [facility] [address] [address] 5614 May, [facility] [id number] [place] [address] 94426- 8247 May, [facility] [address] [address] 9199 May, Hypothyroid E03.9 [facility] [id number] [place] [address] 43859- 4204 13 May, 2017 [facility] [id number] [place] [address] 27061- 6478 May, [facility] [id number] [place] [address] 35073- 7512 May, Chronic posttraumatic stress disorder F43.12 ; Panic disorder with agoraphobia F40.01 ; Undifferentiated schizophrenia F20.3 ; BMI 40.0-44.9, adult Z68.41 and Obesity E66.9 [facility] [address] [address] 2755 May, Shortness of breath R06.02 [facility] [id number] [place] [address] 94505- 5123 May, [facility] [address] [place] [address] 7549 Apr, Undifferentiated schizophrenia F20.3 [facility] [address] [address]- 1826 Apr, [facility] [address] [address]- 9683 Apr, [facility] [id number] [place] [address] 36285- 7488 Mar, Undifferentiated schizophrenia F20.3 ; Panic disorder without agoraphobia F41.0 and Chronic posttraumatic stress disorder F43.12 [facility] [id number] [place] [address] 77372- 4969 Mar, Undifferentiated schizophrenia F20.3 [facility] [address], [place] [address] 1400 18 Mar, 2017 [facility] [id number] [place] [address] 22521- 0068 Mar, [facility] [id number] [place] [address] 16843- 4337 Mar, [facility] [id number] [place] [address] 20741- 4275 Jan, Undifferentiated schizophrenia F20.3 [facility] [id number] [place] [address] 01250- 9404 Jan, [facility] [id number] [place] [address] 30540- 2298 Jan, [facility] [id number] [place] [address] 09687- 3516 Jan, [address] [id number] [id number] Dec, Needle stick injury W27.3XXA [facility] [address] [place] [address] 24451- 2438 Dec, Needle stick injury W27.3XXA [facility] [address], [place] [address]- 7799 Dec, Undifferentiated schizophrenia F20.3 [facility] [address], [place] [address]- 4393 Dec, [facility] [address] [address]- 7657 Dec, [facility] [address] [place] [address] 52831- 9416 Dec, Undifferentiated schizophrenia F20.3 ; Panic disorder with agoraphobia F40.01 and Chronic posttraumatic stress disorder F43.12 [facility] [address], [place] [address]- 9289 Dec, [facility] [address], [place] [address]- 7387 October, [facility] [id number] [place] [address] 948965- 6081 October, Undifferentiated schizophrenia F20.3 [facility] [address], [place] [address]- 8108 October, [facility] [id number] [place] [address] 04046- 3864 October, [facility] [id number] [place] [address] 42124- 2280 Oct, Undifferentiated schizophrenia F20.3 ; Panic disorder with agoraphobia F40.01 ; Chronic posttraumatic stress disorder F43.12 and Obesity E66.9 [facility] [id number] [place] [address] 16868- 7007 Oct, [facility] [address], [place] [address]- 7088 Oct, [facility] [id number] [place] [address] 56429- 8562 Aug, Undifferentiated schizophrenia F20.3 [facility] [address], [place] [address]- 4833 Aug, [facility] [address], [place] [address]- 3238 Aug, Muscle spasm M62.838 [facility] [address], [place] [address]- 9048 Aug, Undifferentiated schizophrenia F20.3 [facility] [address] 7440 Aug, Undifferentiated schizophrenia F20.3 ; Panic disorder with agoraphobia F40.01 ; Chronic posttraumatic stress disorder F43.12 ; High risk medication use Z79.899 and Social phobia F40.10 [facility] [address], [place] [address]- 1391 Aug, Undifferentiated schizophrenia F20.3 [facility] [id number] [place] [address] 11092- 4226 Aug, [facility] [id number] [place] [address] 54467- 6856 Aug, Acute non-recurrent maxillary sinusitis J01.00 [facility] [id number] [place] [address] 70127- 4972 Aug, [facility] [id number] [place] [address] 72275- 6774 Aug, [facility] [id number] [place] [address] 40213- 5940 Jul, Undifferentiated schizophrenia F20.3 [facility] [id number] [place] [address] 30370- 5990 Jul, Schizophrenia, undifferentiated F20.3 ; Social phobia F40.10 ; Post-traumatic stress disorder F43.10 ; Panic disorder F41.0 and Depressive disorder, not elsewhere classified F32.9 [facility] [id number] [place] [address] 81940- 6232 Jul, [facility] [address] [place] [address] 21966- 9896 Jul, Schizophrenia, undifferentiated F20.3 ; Social phobia F40.10 ; Post-traumatic stress disorder F43.10 ; Panic disorder F41.0 and Depressive disorder, not elsewhere classified F32.9 [facility] [id number] [place] [address] 33597- 8298 Jul, [facility] [id number] [place] [address] 68436- 2664 Jul, Undifferentiated schizophrenia F20.3 ; Panic disorder with agoraphobia F40.01 ; Social phobia F40.10 ; Obesity E66.9 and Chronic posttraumatic stress disorder F43.12 [facility] [address] [place] [address] 76932- 9526 Jun, [facility] [id number] [place] [address] 38104 2546 Jun, [facility] [id number] [place] [address] 76695- 1516 Jun, Dental caries K02.9 [facility] [id number] [place] [address] 28171 2546 Jun, Undifferentiated schizophrenia F20.3 [facility] [id number] [place] [address] 01284- 2136 30 May, 2016 [facility] [id number] [place] [address] 96678- 2996 29 May, 2016 Undifferentiated schizophrenia F20.3 ; Panic disorder with agoraphobia F40.01 and Chronic post-traumatic stress disorder (PTSD) F43.12 [facility] [id number] [place] [address] 42005- 3456 May, [facility] [id number] [place] [address] 77246 2546 11 May, 2016 Undifferentiated schizophrenia F20.3 [facility] [id number] [place] [address] 98373- 2159 May, [facility] [id number] [place] [address] 16798- 1963 07 May, 2016 Dental examination Z01.20 [facility] [id number] [place] [address] 45545- 8420 Apr, Undifferentiated schizophrenia F20.3 ; PTSD (post-traumatic stress disorder) F43.10 and Obesity E66.9 [facility] [id number] [place] [address] 91792- 5216 18 Apr, 2016 [facility] [id number] [place] [address] 01632- 6997 Mar, [facility] [id number] [place] [address] 50600- 5809 Mar, [facility] [id number] [place] [address] 01769- 8398 Jan, Shortness of breath R06.02 and Bipolar disorder with psychotic features F31.9 [facility] [address] 13077- 1069 Jan, [facility] [address] 90906- 5023 Jan, Increased intracranial pressure G93.2 ; Visual disturbance H53.9 and Bipolar II disorder F31.81 [facility] [address] 64958- 5811 Jan, [facility] [address] 29580- 0845 Jan, [place] [address] 21663- 7212 Jan, [facility] [address] 34934- 2224 Jan, Acquired hypothyroidism E03.9 ; Depression F32.9 and Insomnia G47.00 [facility] [id number] [place] [address] 74964- 5930 Jan, Exertional dyspnea R06.09 ; Heart palpitations R00.2 ; Hyperlipidemia, unspecified hyperlipidemia type E78.5 ; Hypothyroidism, unspecified type E03.9 and Hypokalemia E87.6 [facility] [id number] [place] [address] 02336- 5356 Dec, PTSD (post-traumatic stress disorder) F43.10 ; Depression F32.9 ; Insomnia G47.00 and Bipolar disorder with psychotic features F31.9 [facility] [id number] [place] [address] 82358- 6628 Dec, Increased intracranial pressure G93.2 [facility] [id number] [place] [address] 66603- 2782 13 Jan, 2016 [place] [facility] [address] 86472- 1928 Dec, Shortness of breath R06.02 [facility] [address] 42251- 1816 05 Jan, 2016 Visual disturbance H53.9 and Headache, unspecified headache type R51 [facility] [id number] [place] [address] 98552- 5561 Dec, Insomnia G47.00 [facility] [address] 90406- 2076 Dec, Murmur R01.1 [facility] [id number] [place] [address] 24872- 0828 Dec, Murmur R01.1 ; Tunnel vision, unspecified laterality H53.489 ; Orthostatic hypertension I10 ; Shortness of breath R06.02 and Tachycardia R00.0 [facility] [id number] [place] [address] 88960- 0933 Dec, [facility] [id number] [place] [address] 52271- 4000 Dec, Hypothyroid E03.9 and Bipolar 1 disorder F31.9 [facility] [id number] [place] [address] 23086- 3628 Dec, Bipolar 1 disorder F31.9 [facility] [id number] [place] [address] 56826- 5937 Dec, [facility] [id number] [place] [address] 45774- 4283 October, Acquired hypothyroidism E03.9 ; Depression F32.9 and Insomnia G47.00 [facility] [id number] [place] [address] 51655- 8338 October, [place] [id number] [place] [address] 65545- 6927 October, Bipolar 1 disorder F31.9 ; PTSD (post-traumatic stress disorder) F43.10 and Social phobia F40.10 [facility] [id number] [place] [address] 12005- 0307 Oct, Bipolar 1 disorder F31.9 and Insomnia G47.00 [facility] [id number] [place] [address] 18973- 7480 Oct, [facility] [id number] [place] [address] 77686- 3232 Oct, [facility] [id number] [place] [address] 68928- 5430 Aug, Hypothyroid E03.9 [facility] [id number] [place] [address] 63231- 9608 Aug, Encounter for therapeutic drug level monitoring Z51.81 and 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.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 [facility] [id number] [place] [address] 82955- 0168 Aug, Encounter for therapeutic drug level monitoring Z51.81 [facility] [id number] [place] [address] 45330- 7250 Aug, Acquired hypothyroidism E03.9 ; Leg pain M79.606 and Bipolar 1 disorder F31.9 [facility] [id number] [place] [address] 82387- 9368 Aug, [facility] [id number] [place] [address] 73402- 5158 Aug, [facility] [id number] [place] [address] 17129- 9757 Jul, Thyroid disorder E07.9 [facility] [id number] [place] [address] 47065- 3469 Jul, Rash R21 ; Abnormal LFTs R94.5 ; Acquired hypothyroidism E03.9 ; Sleep apnea in adult G47.33 and Fatty liver K76.0 [facility] [id number] [place] [address] 25032- 0579 Jun, [facility] [id number] [place] [address] 42599- 9341 Jun, [facility] [id number] [place] [address] 91695- 5476 Jun, Bipolar II disorder F31.81 and Social phobia, generalized F40.11 [facility] [id number] [place] [address] 67940- 9307 Mar, Bipolar II disorder 296.89 and Social phobia 300.23 [facility] [id number] [place] [address] 64288- 0323 Dec, [facility] [id number] [place] [address] 87180- 1459 Dec, [facility] [id number] [place] [address] 82476- 6901 Dec, Bipolar II disorder in partial or unspecified remission 296.89 and Social phobia, generalized 300.23 [facility] [id number] [place] [address] 45349- 7740 Oct, 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 [facility] [id number] [place] [address] 71497- 2376 Oct, [facility] [id number] [place] [address] 41435- 3242 Oct, [facility] [id number] [place] [address] 71643- 2317 Aug, [facility] [id number] [place] [address] 99468- 4725 Aug, [facility] [id number] [place] [address] 50670- 9607 Aug, [facility] [place] [facility] [address] [id number] [place] [address]- 4940 Aug, [facility] [place] [facility] [address] [id number] [place] [address]- 0441 Aug, [facility] [place] [facility] [address] [id number] [place] [address]- 0230 Aug, [facility] [place] [facility] [address] [id number] [place] [address]- 1919 Aug, [facility] [place] [facility] [address] [id number] [place] [address]- 7995 Aug, [facility] [place] [facility] [address] [id number] [place] [address]- 0428 Jul, [facility] [place] [facility] [address] [id number] [place] [address]- 2245 Jul, [facility] [place] [facility] [address] [id number] [place] [address]- 1320 Jul, [facility] [place] [facility] [address] [id number] [place] [address]- 9961 Jul, [facility] [place] [facility] [address] [id number] [place] [address]- 8654 Jul, [facility] [place] [facility] [address] [id number] [place] [address]- 6647 Jul, [facility] [place] [facility] [address] [id number] [place] [address]- 7723 Jun, [facility] [place] [facility] [address] [id number] [place] [address]- 5305 Jun, [facility] [place] [facility] [address] [id number] [place] [address]- 5077 Jun, [facility] [place] [facility] [address] [id number] [place] 6426 Jun, [facility] [place] [facility] [address] [id number], [place] [address]- 0049 Jun, [facility] [place] [facility] [address] [id number] [place] [address]- 7018 Jun, [facility] [place] [facility] [address] [id number] [id number] [address] Jun, [facility] [place] [facility] [address] [id number] [place] [address] Jun, [facility] [place] [facility] [address] [id number] [place] [address] Jun, [facility] [place] [facility] [address] [id number] [place] [address] 2013 Jun, [facility] [place] [facility] [address] [id number] [place] [address] Jun, [facility] [place] [facility] [address] [id number] [place] [address] Jun, [facility] [place] [facility] [address] [id number] [place] [address] Jun, [facility] [place] [facility] [address] [id number] [place] [address] Jun, [facility] [place] [facility] [address] [id number] [place] [address] Jun, [facility] [place] [facility] [address] [id number], [place] [address] Jun, [facility] [place] [facility] [address] [id number], [place] [address] May, [facility] [place] [facility] [address] [id number] [place] [address] May, [facility] [place] [facility] [address] [id number] [place] [address] May, [facility] [place] [facility] [address] [id number] [place] [address] May, [facility] [place] [facility] [address] [id number] [place] [address] May, [facility] [place] [facility] [address] [id number] [place] [address] May, [facility] [place] [facility] [address] [id number] [place] [address] Apr, [facility] [place] [facility] [address] [id number] [place] [address] Apr, [facility] [place] [facility] [address] [id number] [place] [address] Apr, [facility] [place] [facility] [address] [id number] [place] [address] Apr, [facility] [place] [facility] [address] [id number] [place] [address] Apr, [facility] [place] [facility] [address] [id number] [place] [address] Apr, [facility] [place] [facility] [address] [id number] [place] [address] Mar, [facility] [place] [facility] [address] [id number] [place] [address] Mar, [facility] [place] [facility] [address] [id number] [place] [address] Mar, [facility] [place] [facility] [address] [id number] [place] [address] Mar, [facility] [place] [facility] [address] [id number] [place] [address] Jan, [facility] [place] [facility] [address] [id number] [place] [address] Jan, [facility] [place] [facility] [address] [id number] [place] [address] Jan, [facility] [place] [facility] [address] [id number] [place] [address] Jan, [facility] [place] [facility] [address] [id number] [place] [address] Jan, [facility] [place] [facility] [address] [id number] [place] [address] Jan, [facility] [place] [facility] [address] [id number] [place] [address] Dec, [facility] [place] [facility] [address] [id number] [place] [address] Dec, [facility] [place] [facility] [address] [id number] [place] [address] Dec, [facility] [place] [facility] [address] [id number] [place] [address] Dec, [facility] [place] [facility] [address] [id number] [place] [address] Dec, [facility] [place] [facility] [address] [id number] [place] [address]147 Dec, [facility] [place] [facility] [address] [id number] [place] [address] October, [facility] [place] [facility] [address] [id number] [place] [address] October, [facility] [place] [facility] [address] [id number] [place] [address] 0174 October, [facility] [place] [facility] [address] [id number] [place] [address] 1611 October, [facility] [place] [facility] [address] [id number] [place] [address] 1380 October, [facility] [place] [facility] [address] [id number] [place] [address] October, [facility] [place] [facility] [address] [id number] [place] [address] 3968 October, [facility] [place] [facility] [address] [id number] [place] [address]235 October, [facility] [place] [facility] [address] [id number] [place] [address]139 Oct, [facility] [place] [facility] [address] [id number] [place] [address] 8079 Oct, [facility] [place] [facility] [address] [id number] [place] [address]777 Oct, [facility] [place] [facility] [address] [id number] [place] [address] 6[address] Oct, [facility] [place] [facility] [address] [id number] [place] [address] 45[address] Oct, [facility] [place] [facility] [address] [id number] [place] [address]249 Aug, [facility] [place] [facility] [address] [id number] [place] [address] 390[address] Aug, [facility] [place] [facility] [address] [id number] [place] [address]- 6837 Aug, [facility] [place] [facility] [address] [id number] [place] [address]- 2052 Aug, [facility] [place] [facility] [address] [facility] [id number] [place] [address]97 Aug, [facility] [place] [facility] [address] [id number] [place] [address] 6373 Aug, [facility] [place] [facility] [address] [id number] [place] [address] Jul, [facility] [place] [facility] [address] [id number] [place] [address] Jul, [facility] [place] [facility] [address] [facility] [id number] [place] [address] 75[address] Jul, [facility] [place] [facility] [address] [facility] [id number] [place] [address] 9686 Jul, [facility] [place] [facility] [address] [id number] [place] [address] 2614 Jul, [facility] [place] [facility] [address] [id number] [place] [address] 3687 Jul, [facility] [place] [facility] [address] [id number] [place] [address] Jun, [facility] [place] [facility] [address] [id number] [place] [address] 6643 Jun, [facility] [place] [facility] [address] [id number] [place] [address] Jun, [facility] [place] [facility] [address] [id number] [place] [address]- 4468 Jun, [facility] [place] [facility] [address] [id number] [place] [address]- [address]25 Jun, [facility] [place] [facility] [address] [id number] [place] [address] 1612 Jun, [facility] [place] [facility] [address] [id number] [place] [address] 5843 May, [facility] [place] [facility] [address] [id number] [place] [address] 1360 May, [facility] [place] [facility] [address] [id number] [place] [address] Apr, [facility] [place] [facility] [address] [id number], [place] [address] 47[address] Apr, [facility] [place] [facility] [address] [id number] [place] [address] 6931 Apr, [facility] [place] [facility] [address] [id number] [place] [address] 3299 Apr, [facility] [place] [facility] [address] [id number][place] [address] Apr, [facility] [place] [facility] [address] [id number], [place] [address] 18 Apr, 2013 [facility] [place] [facility] [address] [id number] [place] [address] 8135 Apr, [facility] [place] [facility] [address] [id number] [place] [address] 18 Apr, 2013 [facility] [place] [facility] [address] [id number] [place] [address]- 4219 Apr, [facility] [place] [facility] [address] [id number] [place] [address]- 2947 04 Apr, 2013 [facility] [place] [facility] [address] [id number] [place] [address]- 9741 Apr, [facility] [place] [facility] [address] [id number] [place] [address]- 2470 23 Mar, 2013 [facility] [place] [facility] [address] [id number] [place] [address] 3334 20 Mar, 2013 [facility] [place] [facility] [address] [id number] [place] [address] 3024 20 Mar, 2013 [facility] [place] [facility] [address] [id number] [place] [address]12 14 Mar, 2013 [facility] [place] [facility] [address] [id number] [place] [address]- 0983 12 Mar, 2013 [facility] [place] [facility] [address] [id number], [place] [address] 9645 06 Mar, 2012 [facility] [place] [facility] [address] [id number], [place] [address] 9363 06 Mar, 2013 [facility] [place] [facility] [address] [id number] [place] [address] 2400 19 Jan, 2013 [facility] [place] [facility] [address] [id number] [place] [address] 8476 14 Jan, 2013 [facility] [place] [facility] [address] [id number] [place] [address] 9990 13 Jan, 2013 [facility] [place] [facility] [address] [id number] [place] [address] 2546 Jan, [facility] [address] [id number] [place] [address] 9237 Jan, [facility] [place] [facility] [address] [id number] [place] [address] 2546 Jan, [facility] [address] [id number] [place] [address]- 2546 Jan, [facility] [address] [id number] [place] [address]- 2546 Dec, [facility] [address] [id number] [place] [address]- 1259 Dec, [facility] [address] [id number] [place] [address]- 2546 Dec, [facility] [address] [id number] [place] [address]- 9498 Dec, [facility] [address] [id number] [place] [address] Dec, [facility] [address] [id number] [place] [address]- 8466 Dec, [facility] [address] [id number] [place] [address]- 2546 October, [facility] [address] [id number] [place] [address]- 2546 October, [facility] [address] [id number] [place] [address]- 2546 October, [facility] [place] [facility] [address] [id number] [place] [address]- 2546 October, [facility] [place] [facility] [address] [id number] [place] [address]- 2546 Oct, [facility] [place] [facility] [address] [id number] [place] [address]- 8554 Oct, [facility] [address] [id number] [place] [address]- 6281 27 Aug, 2012 [facility] [place] [facility] [address] [id number] [place] [address]- 2608 26 Aug, 2012 [facility] [place] [facility] [address] [id number] [place] [address]- 7931 21 Aug, 2012 [facility] [place] [facility] [address] [id number] [place] [address]- 6596 20 Aug, 2012 [facility] [place] [facility] [address] [id number] [place] [address]- 2314 18 Aug, 2012 [facility] [place] [facility] [address] [id number] [place] [address]- 0123 07 Aug, 2012 [facility] [place] [facility] [address] [id number] [place] [address] Aug, [facility] [place] [facility] [address] [id number] [place] [address]- 4912 Aug, [facility] [place] [facility] [address] [id number] [place] [address]- 6978 Aug, [facility] [place] [facility] [address] [facility] [id number] [place] [address]- 9242 Aug, [facility] [place] [facility] [address] [id number] [place] [address]- 1465 Aug, [facility] [place] [facility] [address] [id number] [place] [address]- 0360 08 Aug, 2012 [facility] [place] [facility] [address] [id number] [place] [address]- 2007 Aug, [facility] [place] [facility] [address] [facility] [id number] [place] [address]- 1698 04 Aug, 2012 [facility] [place] [facility] [address] [facility] [id number] [place] [address]- 9140 Jul, [facility] [place] [facility] [address] [facility] [id number], [place] [address]- 3240 Jul, [facility] [address] [facility] [id number], [place] [address]- 6121 Jul, [facility] [address] [facility] [id number], [place] [address]- 6444 Jul, [facility] [address] [id number], [place] [address]- 5728 Jun, [facility] [address] [facility] [id number], [place] [address]- 3340 Jun, [facility] [id number], [place] [address]- 5213 Jun, [facility] [id number], [place] [address]- 6470 Jun, [facility] [address] [id number], [place] [address]- 7284 May, [facility] [address] [id number], [place] [address] May, IMMUNIZATIONS No Known Immunizations SOCIAL HISTORY Never Assessed REASON FOR VISIT PALS/Breo PLAN OF CARE VITAL SIGNS MEDICATIONS Medication [...]
--- OUTSIDE RECORDS SUMMARY | 2018-09-02 18:25 | XMS REPORT ---
Author Author AMARI HOWARD [facility] Address [address] [place] [address] Care Team Providers Care Special Loan Officer Name Role Phone AMARI HOWARD Unavailable PROBLEMS Type Condition ICD9-CM Code [id number] Code Onset Dates Condition Status SNOMED Code Problem Undifferentiated schizophrenia F20.3 Active 082967741 Problem Chronic posttraumatic stress disorder F43.12 Active 436023529 Problem Panic disorder with agoraphobia F40.01 Active 15383726 Problem Other chronic pain G89.29 Active 04629146 Problem Fatty liver K76.0 Active 199241824 Problem Hypothyroid E03.9 Active 43836830 Problem Abuse, drug or alcohol F19.10 Active 11827908 Problem Sleep apnea in adult G47.33 Active 27492276 Problem Panic disorder F41.0 Active 740536897 Problem Depressive disorder, not elsewhere classified F32.9 Active 27572222 Problem BMI 50.0-59.9, adult Z68.43 Active 206164545 Problem Panic disorder without agoraphobia F41.0 Active 66401086 Problem Social phobia F40.10 Active 80482310 Problem Restless legs syndrome G25.81 Active 892722444 Problem Obesity E66.9 Active 765426085 Problem Neuropathy G62.9 Active 711541391 Problem Tunnel vision, unspecified laterality H53.489 Active 050223127 Problem Tachycardia R00.0 Active 9886809 Problem Encounter for therapeutic drug level monitoring Z51.81 Active 198876306 Problem Murmur R01.1 Active 023927677 Problem Orthostatic hypertension I10 Active 37412003 Problem Shortness of breath R06.02 Active 519784834 ALLERGIES No Known Allergies ENCOUNTERS Encounter Location Date Diagnosis [facility] [address] [facility] [id number] [address] Dec, [facility] [address] [facility] [id number] [address] Dec, [facility] [address] [address] 2775 Dec, [facility] [id number] [place] [address] 46603- 1486 October, [facility] [id number] [place] [address] 07289- 6291 October, Pain in right shoulder M25.511 and Other chronic pain G89.29 [facility] [id number] [place] [address] 05004- 9853 October, Hypothyroid E03.9 [facility] [id number] [place] [address] 60445- 3693 Oct, Undifferentiated schizophrenia F20.3 [facility] [id number] [place] [address] 68492- 9264 Oct, [facility] [id number] [place] [address] 66091- 0806 Oct, [facility] [id number] [place] [address] 27037- 6154 Aug, Undifferentiated schizophrenia F20.3 [facility] [id number] [place] [address] 38364- 1696 Aug, [facility] [id number] [place] [address] 92543- 2645 Aug, Undifferentiated schizophrenia F20.3 ; Panic disorder with agoraphobia F40.01 ; Chronic posttraumatic stress disorder F43.12 and BMI 50.0- 59.9, adult Z68.43 [facility] [id number] [place] [address] 82506- 5034 Aug, [facility] [id number] [place] [address] 85230- 9379 Aug, [facility] [id number] [place] [address] 31039- 0131 Aug, Undifferentiated schizophrenia F20.3 [facility] [id number] [place] [address] 33864- 5106 Aug, Hypothyroid E03.9 [facility] [id number] [place] [address] 90963- 6711 Jul, Undifferentiated schizophrenia F20.3 [facility] [id number] [place] [address] 68784- 2477 Jul, [facility] [id number] [place] [address] 90278- 4051 Jul, Undifferentiated schizophrenia F20.3 ; Chronic posttraumatic stress disorder F43.12 ; Panic disorder with agoraphobia F40.01 and BMI 50.0-59.9, adult Z68.43 [facility] [id number] [place] [address] 97402- 3135 Jul, [facility] [id number] [place] [address] 77453- 6405 Jul, Acute pain of right shoulder M25.511 ; High risk medication use Z79.899 ; Needle stick injury W27.3XXA ; Hypothyroid E03.9 and BMI 50.0-59.9 , adult Z68.43 [facility] [id number] [place] [address] 12103- 4740 Jun, Undifferentiated schizophrenia F20.3 [facility] [id number] [place] [address] 12497- 6479 14 Jun, 2017 Undifferentiated schizophrenia F20.3 ; Panic disorder without agoraphobia F41.0 ; Chronic posttraumatic stress disorder F43.12 and BMI 50.0-59.9, adult Z68.43 [facility] [id number] [place] [address] 82761- 4869 May, [facility] [id number] [place] [address] 93516- 2234 May, [facility] [address] [id number] [address] 1756 May, Undifferentiated schizophrenia F20.3 [facility] [id number] [place] [address] 57109- 3927 May, [facility] [id number] [place] [address] 87313- 9846 May, [facility] [id number] [place] [address] 19137- 8922 May, Hypothyroid E03.9 [facility] [id number] [place] [address] 35739- 8608 May, [facility] [id number] [place] [address] 69166- 9657 10 May, 2017 [facility] [id number] [place] [address] 86934- 5241 May, Chronic posttraumatic stress disorder F43.12 ; Panic disorder with agoraphobia F40.01 ; Undifferentiated schizophrenia F20.3 ; BMI 40.0-44.9, adult Z68.41 and Obesity E66.9 [facility] [id number] [place] [address] 33761- 1160 07 May, 2017 Shortness of breath R06.02 [facility] [id number] [place] [address] 24749- 1411 02 May, 2017 [facility] [id number] [place] [address] 98465- 3139 Apr, Undifferentiated schizophrenia F20.3 [facility] [id number] [place] [address] 42162- 4222 Apr, [facility] [id number] [place] [address] 81777- 6061 Apr, [facility] [id number] [place] [address] 47944- 8502 Mar, Undifferentiated schizophrenia F20.3 ; Panic disorder without agoraphobia F41.0 and Chronic posttraumatic stress disorder F43.12 [facility] [address] [id number] [address] 9910 Mar, Undifferentiated schizophrenia F20.3 [facility] [id number] [place] [address] 08015- 0068 18 Mar, 2017 [facility] [id number] [place] [address] 38364- 3449 Mar, [facility] [id number] [place] [address] 92818- 2135 Mar, [facility] [id number] [place] [address] 27803- 8516 Jan, Undifferentiated schizophrenia F20.3 [facility] [id number] [place] [address] 63711- 2863 Jan, [facility] [id number] [place] [address] 35742- 9981 Jan, [facility] [id number] [place] [address] 39932- 7029 Jan, [address] [id number] [id number] Dec, Needle stick injury W27.3XXA [facility] [id number] [place] [address] 18501- 5066 Dec, Needle stick injury W27.3XXA [facility] [id number] [place] [address] 11535- 3895 Dec, Undifferentiated schizophrenia F20.3 [facility] [id number] [place] [address] 91590- 9757 Dec, [facility] [id number] [place] [address] 55049- 3116 Dec, [facility] [id number] [place] [address] 39565- 6147 Dec, Undifferentiated schizophrenia F20.3 ; Panic disorder with agoraphobia F40.01 and Chronic posttraumatic stress disorder F43.12 [facility] [address] [address]- 0061 Dec, [facility] [address] [id number], [place] [address]- 0076 October, [facility] [address] [address]- 1616 October, Undifferentiated schizophrenia F20.3 [facility] [address] [address]- 0346 October, [facility] [id number] [address]- 0736 October, [facility] [address] [address]- 0671 Oct, Undifferentiated schizophrenia F20.3 ; Panic disorder with agoraphobia F40.01 ; Chronic posttraumatic stress disorder F43.12 and Obesity E66.9 [facility] [address], [place] [address]- 6377 Oct, [facility] [address], [place] [address]- 9066 Oct, [facility] [address], [place] [address]- 9998 Aug, Undifferentiated schizophrenia F20.3 [facility] [address] [address]- 2026 Aug, [facility] [address] [address]- 1900 Aug, Muscle spasm M62.838 [facility] [address], [place] [address]- 3356 Aug, Undifferentiated schizophrenia F20.3 [facility] [address], [place] [address]- 4029 Aug, Undifferentiated schizophrenia F20.3 ; Panic disorder with agoraphobia F40.01 ; Chronic posttraumatic stress disorder F43.12 ; High risk medication use Z79.899 and Social phobia F40.10 [facility] [id number] [place] [address] 10579- 1648 Aug, Undifferentiated schizophrenia F20.3 [facility] [id number] [place] [address] 73726- 4016 Aug, [facility] [id number] [place] [address] 26465- 6460 Aug, Acute non-recurrent maxillary sinusitis J01.00 [facility] [id number] [place] [address] 77595- 9196 Aug, [facility] [id number] [place] [address] 53536- 2276 Aug, [facility] [id number] [place] [address] 00878- 8867 Jul, Undifferentiated schizophrenia F20.3 [facility] [id number] [place] [address] 82397- 2818 Jul, Schizophrenia, undifferentiated F20.3 ; Social phobia F40.10 ; Post-traumatic stress disorder F43.10 ; Panic disorder F41.0 and Depressive disorder, not elsewhere classified F32.9 [facility] [address] [address]- 0288 Jul, [facility] [id number] [place] [address] 12533- 0887 Jul, Schizophrenia, undifferentiated F20.3 ; Social phobia F40.10 ; Post-traumatic stress disorder F43.10 ; Panic disorder F41.0 and Depressive disorder, not elsewhere classified F32.9 [facility] [id number] [place] [address] 61677- 4007 Jul, [facility] [id number] [place] [address] 20779- 1040 Jul, Undifferentiated schizophrenia F20.3 ; Panic disorder with agoraphobia F40.01 ; Social phobia F40.10 ; Obesity E66.9 and Chronic posttraumatic stress disorder F43.12 [facility] [id number] [place] [address] 37532- 4676 Jun, [facility] [id number] [place] [address] 71948- 8656 Jun, [facility] [id number] [place] [address] 61147- 0687 Jun, Dental caries K02.9 [facility] [id number] [place] [address] 67737- 4821 Jun, Undifferentiated schizophrenia F20.3 [facility] [id number] [place] [address] 03416- 9364 30 May, 2016 [facility] [id number] [place] [address] 96819- 4368 29 May, 2016 Undifferentiated schizophrenia F20.3 ; Panic disorder with agoraphobia F40.01 and Chronic post-traumatic stress disorder (PTSD) F43.12 [facility] [id number] [place] [address] 08050- 1900 May, [facility] [id number] [place] [address] 11835- 2497 May, Undifferentiated schizophrenia F20.3 [facility] [id number] [place] [address] 42569- 0147 May, [facility] [id number] [place] [address] 37420- 1952 07 May, 2016 Dental examination Z01.20 [facility] [id number] [place] [address] 71085- 6419 Apr, Undifferentiated schizophrenia F20.3 ; PTSD (post-traumatic stress disorder) F43.10 and Obesity E66.9 [facility] [id number] [place] [address] 51086- 7026 Apr, [place] [id number] [place] [address] 35878- 0468 Mar, [facility] [id number] [place] [address] 19141- 3687 Mar, [facility] [id number] [place] [address] 48221- 4574 Jan, Shortness of breath R06.02 and Bipolar disorder with psychotic features F31.9 [facility] [id number] [place] [address] 85394- 0041 Jan, [facility] [id number] [place] [address] 26043- 6521 Jan, Increased intracranial pressure G93.2 ; Visual disturbance H53.9 and Bipolar II disorder F31.81 [facility] [id number] [place] [address] 30328- 9500 Jan, [facility] [id number] [place] [address] 63219- 0844 Jan, [facility] [id number] [place] [address] 52834- 8478 Jan, [facility] [id number] [place] [address] 98277- 1285 Jan, Acquired hypothyroidism E03.9 ; Depression F32.9 and Insomnia G47.00 [facility] [id number] [place] [address] 01106- 7045 Jan, Exertional dyspnea R06.09 ; Heart palpitations R00.2 ; Hyperlipidemia, unspecified hyperlipidemia type E78.5 ; Hypothyroidism, unspecified type E03.9 and Hypokalemia E87.6 [facility] [id number] [place] [address] 68443- 2690 Dec, PTSD (post-traumatic stress disorder) F43.10 ; Depression F32.9 ; Insomnia G47.00 and Bipolar disorder with psychotic features F31.9 [facility] [id number] [place] [address] 43226- 4408 Dec, Increased intracranial pressure G93.2 [facility] [address] 69388- 9997 Dec, [facility] [id number] [place] [address] 32557- 0496 Dec, Shortness of breath R06.02 [facility] [address] 61603- 6217 Dec, Visual disturbance H53.9 and Headache, unspecified headache type R51 [facility] [address] 91386- 3316 Dec, Insomnia G47.00 [facility] [id number] [place] [address] 48220- 3500 Dec, Murmur R01.1 [facility] [id number] [place] [address] 10933- 3957 Dec, Murmur R01.1 ; Tunnel vision, unspecified laterality H53.489 ; Orthostatic hypertension I10 ; Shortness of breath R06.02 and Tachycardia R00.0 [facility] [id number] [place] [address] 13866- 1853 Dec, [place] [id number] [place] [address] 16570- 3104 Dec, Hypothyroid E03.9 and Bipolar 1 disorder F31.9 [facility] [id number] [place] [address] 45677- 3464 Dec, Bipolar 1 disorder F31.9 [facility] [address] 89353- 1305 Dec, [place] [id number] [place] [address] 83994- 7518 October, Acquired hypothyroidism E03.9 ; Depression F32.9 and Insomnia G47.00 [facility] [id number] [place] [address] 68514- 7440 October, [facility] [id number] [place] [address] 51469- 9505 October, Bipolar 1 disorder F31.9 ; PTSD (post-traumatic stress disorder) F43.10 and Social phobia F40.10 [facility] [id number] [place] [address] 35501- 6137 Oct, Bipolar 1 disorder F31.9 and Insomnia G47.00 [facility] [id number] [place] [address] 43163- 8242 Oct, [facility] [id number] [place] [address] 00748- 2665 Oct, [facility] [id number] [place] [address] 96293- 9621 Aug, Hypothyroid E03.9 [facility] [id number] [place] [address] 10016- 8474 Aug, Encounter for therapeutic drug level monitoring Z51.81 and Other fdc (current) drug therapy Z79.899 [facility] [id number] [place] [address] 54969- 9921 Aug, Encounter for therapeutic drug level monitoring Z51.81 [facility] [id number] [place] [address] 30237- 5790 Aug, Acquired hypothyroidism E03.9 ; Leg pain M79.606 and Bipolar 1 disorder F31.9 [facility] [id number] [place] [address] 55406- 4994 Aug, [facility] [id number] [place] [address] 83609- 1117 Aug, [facility] [id number] [place] [address] 82615- 0577 Jul, Thyroid disorder E07.9 [facility] [id number] [place] [address]- 1638 Jul, Rash R21 ; Abnormal LFTs R94.5 ; Acquired hypothyroidism E03.9 ; Sleep apnea in adult G47.33 and Fatty liver K76.0 [facility] [id number] [place] [address] 16877- 6866 Jun, [facility] [address] 07457- 7442 Jun, [facility] [address] 82288- 7310 Jun, Bipolar II disorder F31.81 and Social phobia, generalized F40.11 [facility] [address] [place] [address] 30308- 7078 Mar, Bipolar II disorder 296.89 and Social phobia 300.23 [facility] [address] [place] [address] 27371- 6505 Dec, [facility] [id number] [place] [address] 02649- 9599 Dec, [facility] [address] [place] [address] 53551- 5760 Dec, Bipolar II disorder in partial or unspecified remission 296.89 and Social phobia, generalized 300.23 [facility] [address] [place] [id number] [place] [address] 83017- 4715 Oct, 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 [facility] [id number] [place] [address] 09970- 5928 Oct, [facility] [address] 97682- 9312 Oct, [facility] [id number] [place] [address] 10539- 6974 Aug, [facility] [id number] [place] [address] 08031- 2533 Aug, [facility] [place] [facility] [address] [id number] [place] [address]- 7766 10 Aug, 2014 [facility] [place] [facility] [address] [id number] [place] [address]- 6454 10 Aug, 2014 [facility] [place] [facility] [address] [id number] [place] [address] Aug, [facility] [place] [facility] [address] [id number] [place] [address] Aug, [facility] [place] [facility] [address] [id number] [place] [address] Aug, [facility] [place] [facility] [address] [id number] [place] [address] Aug, [facility] [place] [facility] [address] [id number] [place] [address] Jul, [facility] [place] [facility] [address] [id number] [place] [address] Jul, [facility] [place] [facility] [address] [id number] [place] [address] Jul, [facility] [place] [facility] [address] [id number] [place] [address] Jul, [facility] [place] [facility] [address] [id number] [place] [address] Jul, [facility] [place] [facility] [address] [id number] [place] [address] Jul, [facility] [place] [facility] [address] [id number] [place] [address] Jun, [facility] [place] [facility] [address] [id number] [place] [address] Jun, [facility] [place] [facility] [address] [id number] [place] [address] Jun, [facility] [place] [facility] [address] [id number], [place] [address] Jun, [facility] [place] [facility] [address] [id number] [place] [address] Jun, [facility] [place] [facility] [address] [id number] [place] [address]- [address]175 Jun, [facility] [place] [facility] [address] [facility] [id number] [place] [address] Jun, [facility] [place] [facility] [address] [id number] [place] [address]- 4199 Jun, [facility] [place] [facility] [address] [id number] [place] [address] Jun, [facility] [place] [facility] [address] [id number] [place] [address] Jun, [facility] [place] [facility] [address] [id number] [place] [address] Jun, [facility] [place] [facility] [address] [id number] [place] [address]- [address] Jun, [facility] [place] [facility] [address] [id number] [place] [address]- 39[address] Jun, [facility] [place] [facility] [address] [id number] [place] [address]- [address] Jun, [facility] [place] [facility] [address] [id number], [place] [address] Jun, [facility] [place] [facility] [address] [id number], [place] [address] Jun, [facility] [place] [facility] [address] [id number] [place] [address] May, [facility] [place] [facility] [address] [id number] [place] [address] May, [facility] [place] [facility] [address] [id number] [place] [address]- [address] May, [facility] [place] [facility] [address] [id number] [place] [address] May, [facility] [place] [facility] [address] [id number] [place] [place] [address] May, [facility] [place] [facility] [address] [id number] [place] [address] May, [facility] [place] [facility] [address] [id number] [place] [address] Apr, [facility] [place] [facility] [address] [id number] [place] [address] Apr, [facility] [place] [facility] [address] [id number] [place] [address] 2429 Apr, [facility] [place] [facility] [address] [id number] [place] [address] 12[address] Apr, [facility] [place] [facility] [address] [id number] [place] [address]- 1713 Apr, [facility] [place] [facility] [address] [id number] [place] [address]- 9118 Apr, [facility] [place] [facility] [address] [id number] [place] [address] 1764 Mar, [facility] [place] [facility] [address] [id number] [place] [address]- 0440 Mar, [facility] [place] [facility] [address] [id number] [place] [address] 0991 Mar, [facility] [place] [facility] [address] [id number] [place] [address] 4363 Mar, [facility] [place] [facility] [address] [id number] [place] [address]885 Jan, [facility] [place] [facility] [address] [id number] [place] [address]- 27[address] Jan, [facility] [place] [facility] [address] [id number] [place] [address] 8868 Jan, [facility] [place] [facility] [address] [id number] [place] [address]- 3639 Jan, [facility] [place] [facility] [address] [id number] [place] [address] 1860 Jan, [facility] [place] [facility] [address] [id number] [place] [address]- 9807 Jan, [facility] [place] [facility] [address] [id number] [place] [address] 8408 Dec, [facility] [place] [facility] [address] [id number] [place] [address]- 5910 Dec, [facility] [place] [facility] [address] [id number] [place] [address]- 6246 Dec, [facility] [place] [facility] [address] [id number] [place] [address]- 3841 Dec, [facility] [place] [facility] [address] [id number] [place] [address]- 7670 Dec, [facility] [place] [facility] [address] [id number] [place] [address]- 4901 Dec, [facility] [place] [facility] [address] [id number] [place] [address]- 3627 October, [facility] [place] [facility] [address] [id number] [place] [address]- 4367 October, [facility] [place] [facility] [address] [id number] [place] [address]- 479[address] October, [facility] [place] [facility] [address] [id number] [place] [address]- 6924 October, [facility] [place] [facility] [address] [id number] [place] [address]- 4820 October, [facility] [place] [facility] [address] [id number] [place] [address]- 1670 October, [facility] [place] [facility] [address] [id number], [place] [address] October, [facility] [place] [facility] [address] [id number] [place] [address] October, [facility] [place] [facility] [address] [id number] [place] [address]- 1135 Oct, [facility] [place] [facility] [address] [id number] [place] [address]- 0452 Oct, [facility] [place] [facility] [address] [id number] [place] [address]- 1254 Oct, [facility] [place] [facility] [address] [id number] [place] [address]- 4367 Oct, [facility] [place] [facility] [address] [id number] [place] [address] 2643 Oct, [facility] [place] [facility] [address] [facility] [id number] [place] [address] 77[address] Aug, [facility] [place] [facility] [address] [id number] [place] [address]- 8154 Aug, [facility] [place] [facility] [address] [id number] [place] [address]- 6528 Aug, [facility] [place] [facility] [address] [facility] [id number] [place] [address] 5614 Aug, [facility] [place] [facility] [address] [facility] [id number] [place] [address]- 3217 Aug, [facility] [place] [facility] [address] [id number], [place] [address]752 Aug, [facility] [place] [facility] [address] [id number] [place] [address]- 6603 Jul, [facility] [place] [facility] [address] [id number], [place] [address] 7797 Jul, [facility] [place] [facility] [address] [id number] [address] Jul, [facility] [place] [facility] [address] [id number] [place] [address]- 5522 Jul, [facility] [place] [facility] [address] [id number] [place] [address]- 9390 Jul, [facility] [place] [facility] [address] [id number] [place] [address]- 8684 Jul, [facility] [place] [facility] [address] [id number] [place] [address]- 5352 Jun, [facility] [place] [facility] [address] [id number] [place] [address]- 5141 Jun, [facility] [place] [facility] [address] [id number] [place] [address]- 8224 Jun, [facility] [place] [facility] [address] [id number] [place] [address]- 8920 Jun, [facility] [place] [facility] [address] [id number] [place] [address]- 1521 Jun, [facility] [place] [facility] [address] [id number] [place] [address]- 9635 Jun, [facility] [place] [facility] [address] [id number] [place] [address]- 6832 May, [facility] [place] [facility] [address] [id number] [place] [address]- 4990 May, [facility] [place] [facility] [address] [id number] [place] [address]- 0141 Apr, [facility] [place] [facility] [address] [id number] [place] [address]- 9414 Apr, [facility] [place] [facility] [address] [id number] [place] [address]- 5475 Apr, [facility] [place] [facility] [address] [id number] [place] [address]- 5521 Apr, [facility] [place] [facility] [address] [id number], [place] [address] 8144 Apr, [facility] [place] [facility] [address] [id number] [place] [address]- 6312 Apr, [facility] [place] [facility] [address] [id number] [place] [address]- 2615 18 Apr, 2013 [facility] [place] [facility] [address] [id number] [place] [address]- 7431 Apr, [facility] [place] [facility] [address] [id number] [place] [address] Apr, [facility] [place] [facility] [address] [id number] [place] [address]- 2146 Apr, [facility] [place] [facility] [address] [id number] [place] [address]- 2487 Apr, [facility] [place] [facility] [address] [id number] [place] [address]- 0625 23 Mar, 2013 [facility] [place] [facility] [address] [id number] [place] [address]- 8901 20 Mar, 2013 [facility] [place] [facility] [address] [id number] [place] [address]- 7213 20 Mar, 2013 [facility] [place] [facility] [address] [id number] [place] [address]- 3319 14 Mar, 2013 [facility] [place] [facility] [address] [id number], [place] [address]- 6285 12 Mar, 2013 [facility] [place] [facility] [address] [id number], [place] [address]- 9515 06 Mar, 2012 [facility] [place] [facility] [address] [id number] [place] [address]- 5577 06 Mar, 2013 [facility] [place] [facility] [address] [id number], [place] [address]- 2886 19 Jan, 2013 [facility] [place] [facility] [address] [id number] [place] [address]- 4755 14 Jan, 2013 [facility] [place] [facility] [address] [id number] [place] [address]- 7707 Jan, [facility] [address] [id number] [place] [address]- 1246 Jan, [facility] [address] [id number] [place] [address]- 0903 Jan, [facility] [address] [id number] [place] [address]- 9591 Jan, [facility] [address] [id number] [place] [address]- 7303 Jan, [facility] [address] [id number] [place] [address]- 6819 Dec, [facility] [address] [id number] [place] [address]- 5691 Dec, [facility] [address] [id number] [place] [address]- 1538 Dec, [facility] [address] [id number] [place] [address]- 0332 Dec, [facility] [address] [id number] [place] [address]- 4076 Dec, [facility] [address] [id number] [place] [address]- 4967 Dec, [facility] [address] [id number] [place] [address]- 5436 October, [facility] [address] [id number] [place] [address]- 7541 October, [facility] [address] [id number] [place] [address]- 3017 October, [facility] [address] [id number] [place] [address]- 2546 October, [facility] [address] [id number] [place] [address]- 6074 Oct, [facility] [address] [id number] [place] [address]- 1908 Oct, [facility] [place] [facility] [address] [id number] [place] [address]- 7856 Aug, [facility] [place] [facility] [address] [id number] [place] [address]- 3876 Aug, [facility] [place] [facility] [address] [id number] [place] [address]- 2566 Aug, [facility] [address] [id number] [place] [address]- 0150 Aug, [facility] [place] [facility] [address] [id number] [place] [address]- 5016 Aug, [facility] [place] [facility] [address] [facility] [id number] [place] [address]- 9434 Aug, [facility] [place] [facility] [address] [id number], [place] [address]- 6359 Aug, [facility] [place] [facility] [address] [id number] [place] [address]- 1099 Aug, [facility] [place] [facility] [address] [facility] [id number] [place] [address]- 4226 Aug, [facility] [place] [facility] [address] [facility] [id number] [place] [address]- 5527 Aug, [facility] [place] [facility] [address] [id number], [place] [address]- 4385 Aug, [facility] [place] [facility] [address] [id number] [place] [address]- 5916 08 Aug, 2012 [facility] [place] [facility] [address] [facility] [id number], [place] [address]- 7406 Aug, [facility] [place] [facility] [address] [facility] [id number] [place] [address]- 6146 Aug, [facility] [place] [facility] [address], [place] [address]- 5905 Jul, [facility] [address], [place] [address]- 6841 Jul, [facility] [address], [place] [address]- 4797 Jul, [facility] [address]65[address], [place] [address]- 9950 Jul, [facility] [address] [id number], [place] [address]- 5010 Jun, [facility] [id number] [place] [address]- 9618 Jun, [facility] [address] [id number], [place] [address]- 1501 Jun, [facility] [address] [id number], [place] [address]- 4990 Jun, [facility] [address]65[address], [place] [address]- 6160 May, [facility] [address], [place] [address]- 6340 May, IMMUNIZATIONS No Known Immunizations SOCIAL HISTORY Never Assessed REASON FOR VISIT f/u----DBennettRN, Schizophrenia, panic PLAN OF CARE Activity Details Follow Up 2 Months Reason: VITAL SIGNS Height 67 in 2017-06-15 Weight 345 lbs 2017-06-15 Heart Rate 90 bpm 2017-06-15 Respiratory Rate 20 2017-06-15 BMI 54.03 kg/m2 2017-06-15 Blood pressure systolic 108 mmHg 2017-06-15 Blood pressure diastolic 70 mmHg 2017-06-15 MEDICATIONS Medication Instructions Dosage Frequency Start Date End Date Duration Status Trazodone HCl 100 mg Orally Once a day 2 tablet at bedtime 24h Active Neurontin 800 MG Orally 2 times a day 1 tablet 12h Aug, 81 days Active Levothyroxine Sodium 100 MCG Orally Once a day 1 tablet 24h Aug, 90 days Active Breo Ellipta 100-25 MCG/INH Inhalation Once a day 1 puff 24h Dec, 90 days Active Austell Carbonate 300 MG TAKE ONE CAPSULE BY MOUTH IN THE MORNING AND TWO CAPSULES AT BEDTIME Active Aristada 882 MG/3.2ML Intramuscular once monthly [...]
--- OUTSIDE RECORDS SUMMARY | 2018-09-02 18:26 | XMS REPORT ---
Author Author AMARI HOWARD [facility] Address [address] [place] [address] Care Team Providers Care Student Services Advisor Name Role Phone AMARI HOWARD Unavailable PROBLEMS Type Condition ICD9-CM Code RBH01-FW Code Onset Dates Condition Status SNOMED Code Problem Shortness of breath R06.02 Active 818640221 Problem Panic disorder with agoraphobia F40.01 Active 60167372 Problem Undifferentiated schizophrenia F20.3 Active 146315819 Problem Hypothyroid E03.9 Active 07814508 Problem Abuse, drug or alcohol F19.10 Active 01079045 Problem BMI 50.0-59.9, adult Z68.43 Active 989619144 Problem Sleep apnea in adult G47.33 Active 57529189 Problem Depressive disorder, not elsewhere classified F32.9 Active 10282251 Problem Chronic posttraumatic stress disorder F43.12 Active 049017431 Problem Panic disorder without agoraphobia F41.0 Active 15511509 Problem Panic disorder F41.0 Active 896587592 Problem Neuropathy G62.9 Active 110834300 Problem Social phobia F40.10 Active 59943209 Problem Fatty liver K76.0 Active 136550778 Problem Obesity E66.9 Active 424304598 Problem Orthostatic hypertension I10 Active 22801586 Problem Tunnel vision, unspecified laterality H53.489 Active 368307667 Problem Restless legs syndrome G25.81 Active 074053197 Problem Tachycardia R00.0 Active 1195105 Problem Encounter for therapeutic drug level monitoring Z51.81 Active 323022253 Problem Murmur R01.1 Active 587916938 ALLERGIES No Known Allergies ENCOUNTERS Encounter Location Date Diagnosis [facility] [id number] [address] Dec, [facility] [id number] [address] October, [facility] [address] [address] 8[address] Aug, Undifferentiated schizophrenia F20.3 [facility] [id number] [place] [address] 12382- 2366 Aug, [facility] [id number] [address] 2546 Aug, Undifferentiated schizophrenia F20.3 ; Panic disorder with agoraphobia F40.01 ; Chronic posttraumatic stress disorder F43.12 and BMI 50.0- 59.9, adult Z68.43 [facility] [id number] [place] [address] 65598- 9436 05 Aug, 2017 [facility] [id number] [place] [address] 57034- 6097 Aug, [facility] [id number] [place] [address] 68624- 2076 Aug, Undifferentiated schizophrenia F20.3 [facility] [id number] [place] [address] 27323- 3671 Aug, Hypothyroid E03.9 [facility] [id number] [place] [address] 03623- 7406 Jul, Undifferentiated schizophrenia F20.3 [facility] [address] [address] 7[address] Jul, [facility] [id number] [place] [address] 79158- 4763 Jul, Undifferentiated schizophrenia F20.3 ; Chronic posttraumatic stress disorder F43.12 ; Panic disorder with agoraphobia F40.01 and BMI 50.0-59.9, adult Z68.43 [facility] [address] [address] 6396 15 Jul, 2017 [facility] [address] [address] 4[address] 08 Jul, 2017 Acute pain of right shoulder M25.511 ; High risk medication use Z79.899 ; Needle stick injury W27.3XXA ; Hypothyroid E03.9 and BMI 50.0-59.9 , adult Z68.43 [facility] [id number] [place] [address] 79264- 3646 Jun, Undifferentiated schizophrenia F20.3 [facility] [id number] [place] [address] 68070- 2457 Jun, Undifferentiated schizophrenia F20.3 ; Panic disorder without agoraphobia F41.0 ; Chronic posttraumatic stress disorder F43.12 and BMI 50.0-59.9, adult Z68.43 [facility] [id number] [place] [address] 36950- 3488 May, [facility] [id number] [place] [address] 89278- 5542 May, [facility] [address] [address]- 1275 May, Undifferentiated schizophrenia F20.3 [facility] [id number] [place] [address] 97815- 3814 May, [facility] [id number] [place] [address] 04282- 2854 May, [facility] [id number] [place] [address] 93020- 5232 May, Hypothyroid E03.9 [facility] [id number] [place] [address] 77410- 5461 May, [facility] [id number] [place] [address] 05371- 3880 May, [facility] [id number] [place] [address] 98250- 3164 07 May, 2017 Chronic posttraumatic stress disorder F43.12 ; Panic disorder with agoraphobia F40.01 ; Undifferentiated schizophrenia F20.3 ; BMI 40.0-44.9, adult Z68.41 and Obesity E66.9 [facility] [address] [address] 7860 07 May, 2017 Shortness of breath R06.02 [facility] [id number] [place] [address] 33527- 7661 02 May, 2017 [facility] [id number] [place] [address] 97718- 9977 Apr, Undifferentiated schizophrenia F20.3 [facility] [id number] [place] [address] 90353- 6395 Apr, [facility] [id number] [place] [address] 20748- 1932 Apr, [facility] [id number] [place] [address] 33047- 0121 Mar, Undifferentiated schizophrenia F20.3 ; Panic disorder without agoraphobia F41.0 and Chronic posttraumatic stress disorder F43.12 [facility] [id number] [place] [address] 28410- 7258 Mar, Undifferentiated schizophrenia F20.3 [facility] [id number] [place] [address] 05727- 2812 18 Mar, 2017 [facility] [id number] [place] [address] 83296- 9381 08 Mar, 2017 [facility] [id number] [place] [address] 67456- 3143 Mar, [facility] [id number] [place] [address] 37923- 1208 Jan, Undifferentiated schizophrenia F20.3 [facility] [id number] [place] [address] 49779- 2501 Jan, [facility] [address] [address]- 8987 Jan, [facility] [id number] [place] [address] 07242- 6624 Jan, [facility] [address] [facility] [id number] [id number] Dec, Needle stick injury W27.3XXA [facility] [address] [address] 1375 Dec, Needle stick injury W27.3XXA [facility] [address] [address]- 3735 Dec, Undifferentiated schizophrenia F20.3 [facility] [id number] [address]- 7042 Dec, [facility] [id number] [place] [address] 36230- 0080 Dec, [facility] [address] [address]- 1781 Dec, Undifferentiated schizophrenia F20.3 ; Panic disorder with agoraphobia F40.01 and Chronic posttraumatic stress disorder F43.12 [facility] [address] [address]- 4279 Dec, [facility] [id number] [place] [address] 09620- 8441 October, [facility] [address] [address]- 3375 October, Undifferentiated schizophrenia F20.3 [facility] [address] [address]- 1350 October, [facility] [id number] [address]- 6768 October, [facility] [address] [address]- 7785 Oct, Undifferentiated schizophrenia F20.3 ; Panic disorder with agoraphobia F40.01 ; Chronic posttraumatic stress disorder F43.12 and Obesity E66.9 [facility] [address] [address]- 0343 Oct, [facility] [id number] [place] [address] 03317- 2321 Oct, [facility] [id number] [place] [address] 85579- 3903 Aug, Undifferentiated schizophrenia F20.3 [facility] [id number] [place] [address] 50082- 8362 Aug, [facility] [id number] [place] [address] 70170- 1492 Aug, Muscle spasm M62.838 [facility] [id number] [place] [address] 86434- 7955 Aug, Undifferentiated schizophrenia F20.3 [facility] [id number] [place] [address] 14680- 0378 Aug, Undifferentiated schizophrenia F20.3 ; Panic disorder with agoraphobia F40.01 ; Chronic posttraumatic stress disorder F43.12 ; High risk medication use Z79.899 and Social phobia F40.10 [facility] [id number] [place] [address] 85117- 7528 Aug, Undifferentiated schizophrenia F20.3 [facility] [id number] [place] [address] 55037- 2444 Aug, [facility] [id number] [place] [address] 59222- 6392 Aug, Acute non-recurrent maxillary sinusitis J01.00 [facility] [id number] [place] [address] 02768- 1300 Aug, [facility] [id number] [place] [address] 97532- 6351 Aug, [facility] [id number] [place] [address] 81812- 0028 Jul, Undifferentiated schizophrenia F20.3 [facility] [id number] [place] [address] 59884- 2613 Jul, Schizophrenia, undifferentiated F20.3 ; Social phobia F40.10 ; Post-traumatic stress disorder F43.10 ; Panic disorder F41.0 and Depressive disorder, not elsewhere classified F32.9 [facility] [id number] [place] [address] 87700- 5237 Jul, [facility] [id number] [place] [address] 81140- 0499 Jul, Schizophrenia, undifferentiated F20.3 ; Social phobia F40.10 ; Post-traumatic stress disorder F43.10 ; Panic disorder F41.0 and Depressive disorder, not elsewhere classified F32.9 [facility] [id number] [place] [address] 89291- 2200 Jul, [facility] [id number] [place] [address] 98412- 8070 Jul, Undifferentiated schizophrenia F20.3 ; Panic disorder with agoraphobia F40.01 ; Social phobia F40.10 ; Obesity E66.9 and Chronic posttraumatic stress disorder F43.12 [facility] [id number] [place] [address] 62565- 2736 Jun, [facility] [id number] [place] [address] 88893- 3506 Jun, [facility] [id number] [place] [address] 47292- 6547 Jun, Dental caries K02.9 [facility] [id number] [place] [address] 12429- 1977 Jun, Undifferentiated schizophrenia F20.3 [facility] [id number] [place] [address] 33494- 7629 May, [facility] [id number] [place] [address] 01957- 4206 May, Undifferentiated schizophrenia F20.3 ; Panic disorder with agoraphobia F40.01 and Chronic post-traumatic stress disorder (PTSD) F43.12 [facility] [id number] [place] [address] 45201- 3910 May, [facility] [id number] [place] [address] 58741- 5353 May, Undifferentiated schizophrenia F20.3 [facility] [id number] [place] [address] 07094- 1180 May, [facility] [address] 41394- 3696 May, Dental examination Z01.20 [facility] [address] 92277- 8552 Apr, Undifferentiated schizophrenia F20.3 ; PTSD (post-traumatic stress disorder) F43.10 and Obesity E66.9 [facility] [id number] [place] [address] 94201- 0549 Apr, [facility] [id number] [place] [address] 34391- 5032 Mar, [id number] [place] [address] 51268- 1915 Mar, [facility] [id number] [place] [address] 76648- 5072 Jan, Shortness of breath R06.02 and Bipolar disorder with psychotic features F31.9 [facility] [id number] [place] [address] 14879- 1044 Jan, [facility] [id number] [place] [address] 94542- 1774 Jan, Increased intracranial pressure G93.2 ; Visual disturbance H53.9 and Bipolar II disorder F31.81 [facility] [id number] [place] [address] 34167- 4068 Jan, [facility] [id number] [place] [address] 93392- 5030 Jan, [id number] [place] [address] 28291- 2292 Jan, [address] 60363- 0543 Jan, Acquired hypothyroidism E03.9 ; Depression F32.9 and Insomnia G47.[address] 20137- 3635 Jan, Exertional dyspnea R06.09 ; Heart palpitations R00.2 ; Hyperlipidemia, unspecified hyperlipidemia type E78.5 ; Hypothyroidism, unspecified type E03.9 and Hypokalemia E87.6 [address] 04233- 5811 Dec, PTSD (post-traumatic stress disorder) F43.10 ; Depression F32.9 ; Insomnia G47.00 and Bipolar disorder with psychotic features F31.9 [address] 93188- 7038 Dec, Increased intracranial pressure G93.2 [address] 42334- 3066 Dec, [address] 42897- 4080 Dec, Shortness of breath R06.02 [id number] [place] [address] 81180- 8569 Dec, Visual disturbance H53.9 and Headache, unspecified headache type R51 [id number] [place] [address] 58348- 1398 Dec, Insomnia G47.00 [address] 69992- 1742 Dec, Murmur R01.1 [id number] [place] [address] 37808- 5914 Dec, Murmur R01.1 ; Tunnel vision, unspecified laterality H53.489 ; Orthostatic hypertension I10 ; Shortness of breath R06.02 and Tachycardia R00.0 [id number] [place] [address] 32702- 4199 Dec, [facility] [id number] [place] [address] 23951- 9384 Dec, Hypothyroid E03.9 and Bipolar 1 disorder F31.9 [id number] [place] [address] 10632- 2911 Dec, Bipolar 1 disorder F31.9 [id number] [place] [address] 03176- 1332 Dec, [id number] [place] [address] 95373- 1240 October, Acquired hypothyroidism E03.9 ; Depression F32.9 and Insomnia G47.00 [id number] [place] [address] 76898- 0512 October, [facility] [id number] [place] [address] 43068- 6900 October, Bipolar 1 disorder F31.9 ; PTSD (post-traumatic stress disorder) F43.10 and Social phobia F40.10 [id number] [place] [address] 20099- 3931 Oct, Bipolar 1 disorder F31.9 and Insomnia G47.00 [id number] [place] [address] 97208- 2364 Oct, [id number] [place] [address] 85033- 4159 Oct, [id number] [place] [address] 79720- 2307 Aug, Hypothyroid E03.9 [facility] [id number] [place] [address] 64819- 4746 Aug, Encounter for therapeutic drug level monitoring Z51.81 and Other fdc (current) drug therapy Z79.899 [facility] [id number] [place] [address] 30286- 2366 Aug, Encounter for therapeutic drug level monitoring Z51.81 [facility] [id number] [place] [address] 55078- 6531 Aug, Acquired hypothyroidism E03.9 ; Leg pain M79.606 and Bipolar 1 disorder F31.9 [facility] [address] 49865- 3602 Aug, [facility] [address] 34053- 6992 Aug, [facility] [address] 01031- 7771 Jul, Thyroid disorder E07.9 [facility] [address] 77434- 8628 Jul, Rash R21 ; Abnormal LFTs R94.5 ; Acquired hypothyroidism E03.9 ; Sleep apnea in adult G47.33 and Fatty liver K76.0 [facility] [id number] [place] [address] 13979- 2975 Jun, [facility] [id number] [place] [address] 80084- 5066 Jun, [facility] [address] 72160- 4360 Jun, Bipolar II disorder F31.81 and Social phobia, generalized F40.11 [facility] [address] 88264- 9546 Mar, Bipolar II disorder 296.89 and Social phobia 300.23 [facility] [id number] [place] [address] 24231- 8861 Dec, [facility] [address] 54823- 2546 Dec, [facility] [address] [address]- 4258 Dec, Bipolar II disorder in partial or unspecified remission 296.89 and Social phobia, generalized 300.23 [facility] [address] [address]- 6956 30 Oct, 2014 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 [facility] [id number] [place] [address] 62723- 9654 Oct, [facility] [address] [address]- 8700 Oct, [facility] [id number] [place] [address] 92808- 2472 Aug, [facility] [id number] [address]- 0773 Aug, [facility] [address] [address]- 6497 Aug, [facility] [address] [address]- 8245 Aug, [facility] [address] [address]- 8581 Aug, [facility] [address] [address]- 0978 Aug, [facility] [address] [address]- 3262 Aug, [facility] [place] [facility] [address] [address]- 5767 Aug, [facility] [address] [address]- 5926 Jul, [facility] [address] [address]- 0456 Jul, [facility] [id number] [address]- 8950 Jul, [facility] [address] [id number] [place] [address]- 5885 Jul, [facility] [address] [id number] [place] [address]- 1744 Jul, [facility] [address] [id number] [place] [address]- 9789 Jul, [facility] [address] [id number] [place] [address]- 0109 Jun, [facility] [address] [id number] [place] [address]- 9449 Jun, [facility] [address] [id number] [place] [address]- 8975 Jun, [facility] [address] [id number] [place] [address]- 9574 Jun, [facility] [address] [id number] [place] [address]- 8742 Jun, [facility] [address] [id number] [place] [address]- 4877 Jun, [facility] [address] [id number] [place] [address]- 8216 Jun, [facility] [address] [id number] [place] [address]- 8879 Jun, [facility] [address] [id number] [place] [address]- 7959 Jun, [facility] [place] [facility] [address] [id number] [place] [address]- 3856 Jun, [facility] [place] [facility] [address] [id number] [place] [address]- 9782 Jun, [facility] [address] [id number] [place] [address]- 9550 Jun, [facility] [place] [facility] [address] [id number] [place] [address]- 7868 Jun, [facility] [place] [facility] [address] [id number] [place] 8381 Jun, [facility] [place] [facility] [address] [id number] [place] [address]- 4546 Jun, [facility] [place] [facility] [address] [id number] [place] [address]- 5247 Jun, [facility] [place] [facility] [address] [id number] [place] [address]- 7007 May, [facility] [place] [facility] [address] [id number] [place] [address]- 1871 May, [facility] [place] [facility] [address] [id number] [place] [address] May, [facility] [place] [facility] [address] [id number] [place] [address] May, [facility] [place] [facility] [address] [id number] [place] [address] May, [facility] [place] [facility] [address] [id number] [place] [address] May, [facility] [place] [facility] [address] [facility] [id number] [place] [address] Apr, [facility] [place] [facility] [address] [id number] [place] [address] Apr, [facility] [place] [facility] [address] [id number] [place] [address] Apr, [facility] [place] [facility] [address] [id number] [place] [address] Apr, [facility] [place] [facility] [address] [id number] [place] [address] Apr, [facility] [place] [facility] [address] [id number] [place] [address] Apr, [facility] [place] [facility] [address] [id number] [place] [address] Mar, [facility] [place] [facility] [address] [id number] [place] [address] Mar, [facility] [place] [facility] [address] [id number] [place] [address] Mar, [facility] [place] [facility] [address] [id number] [place] [address] Mar, [facility] [place] [facility] [address] [id number] [place] [address] Jan, [facility] [place] [facility] [address] [id number] [place] [address] Jan, [facility] [place] [facility] [address] [id number] [place] [address] Jan, [facility] [place] [facility] [address] [id number] [place] [address] Jan, [facility] [place] [facility] [address] [id number] [place] [address] Jan, [facility] [place] [facility] [address] [id number] [place] [address] Jan, [facility] [place] [facility] [address] [id number] [place] [address] Dec, [facility] [place] [facility] [address] [id number] [place] [address] Dec, [facility] [place] [facility] [address] [id number] [place] [address] Dec, [facility] [place] [facility] [address] [id number] [place] [address] Dec, [facility] [place] [facility] [address] [id number] [place] [address] Dec, [facility] [place] [facility] [address] [id number] [place] [address] Dec, [facility] [address] [id number] [place] [address] October, [facility] [place] [facility] [address] [id number] [place] [address] October, [facility] [place] [facility] [address] [id number] [place] [address] October, [facility] [place] [facility] [address] [id number] [place] [address] October, [facility] [place] [facility] [address] [id number] [place] [address] October, [facility] [place] [facility] [address] [id number] [place] [address] October, [facility] [place] [facility] [address] [id number] [place] [address] October, [facility] [place] [facility] [address] [id number] [place] [address] October, [facility] [place] [facility] [address] [id number] [place] [address]88 Oct, [facility] [place] [facility] [address] [id number] [place] [address] Oct, [facility] [place] [facility] [address] [id number] [place] [address]65 Oct, [facility] [place] [facility] [address] [id number] [place] [address] Oct, [facility] [place] [facility] [address] [id number] [place] [address] 39[address] Oct, [facility] [place] [facility] [address] [id number] [place] [address] Aug, [facility] [place] [facility] [address] [id number] [place] [address] Aug, [facility] [place] [facility] [address] [id number] [place] [address] Aug, [facility] [place] [facility] [address] [id number] [place] [address]253 Aug, [facility] [place] [facility] [address] [id number] [place] [address] Aug, [facility] [place] [facility] [address] [id number] [place] [address] Aug, [facility] [place] [facility] [address] [id number] [place] [address] Jul, [facility] [place] [facility] [address] [id number] [place] [address]26 Jul, [facility] [place] [facility] [address] [id number] [place] [address] 1994 Jul, [facility] [place] [facility] [address] [id number] [place] [address] Jul, [facility] [place] [facility] [address] [id number] [place] [address] Jul, [facility] [place] [facility] [address] [id number] [place] [address] Jul, [facility] [place] [facility] [address] [id number] [place] [address] Jun, [facility] [place] [facility] [address] [id number] [place] [address] Jun, [facility] [place] [facility] [address] [id number] [place] [address]80 Jun, [facility] [place] [facility] [address] [id number] [place] [address]170 Jun, [facility] [place] [facility] [address] [id number] [place] [address] 379[address] Jun, [facility] [place] [facility] [address] [id number] [place] [address]856 Jun, [facility] [address] [id number] [place] [address] 8966 May, [facility] [place] [facility] [address] [id number] [place] [address] 1495 May, [facility] [address] [id number] [place] [address] 2024 Apr, [facility] [place] [facility] [address] [id number] [place] [address]31 Apr, [facility] [address] [id number] [place] [address]184 Apr, [facility] [place] [facility] [address] [id number] [place] [address] Apr, [facility] [address] [id number] [place] [address] Apr, [facility] [address] [id number] [place] [address] Apr, [facility] [place] [facility] [address] [id number] [place] [address]- 4521 Apr, [facility] [address] [id number] [place] [address] 8066 Apr, [facility] [place] [facility] [address] [id number] [place] [address]- [address]952 Apr, [facility] [place] [facility] [address] [id number] [place] [address]- [address] Apr, [facility] [place] [facility] [address] [id number] [place] [address]- 4482 Apr, [facility] [place] [facility] [address] [id number] [place] [address] 6595 Mar, [facility] [place] [facility] [address] [id number] [place] [address]- [address]85 20 Mar, 2013 [facility] [place] [facility] [address] [id number] [place] [address] 2818 20 Mar, 2012 [facility] [place] [facility] [address] [id number] [place] [address]- 1514 14 Mar, 2013 [facility] [place] [facility] [address] [id number] [place] [address]- 6826 12 Mar, 2013 [facility] [place] [facility] [address] [id number] [place] [address] 3542 Mar, [facility] [place] [facility] [address] [id number] [place] [address]- 6710 06 Mar, 2013 [facility] [place] [facility] [address] [id number] [place] [address] 8919 Jan, [facility] [place] [facility] [address] [id number] [place] [address]- 8423 Jan, [facility] [place] [facility] [address] [id number] [place] [address]- 5266 Jan, [facility] [place] [facility] [address] [id number] [place] [address]- 8986 Jan, [facility] [place] [facility] [address] [id number] [place] [address]- 6[address] Jan, [facility] [place] [facility] [address] [id number] [place] [address]- 5124 Jan, [facility] [place] [facility] [address] [id number] [place] [address]- 8392 Jan, [facility] [place] [facility] [address] [id number] [place] [address]- 1163 Dec, [facility] [place] [facility] [address] [id number] [place] [address]- 1569 Dec, [facility] [place] [facility] [address] [id number] [place] [address] Dec, [facility] [place] [facility] [address] [id number] [place] [address]- 3623 Dec, [facility] [address] [id number] [place] [address]- 3816 Dec, [facility] [address] [id number] [place] [address]- 7793 Dec, [facility] [address] [id number] [place] [address]- 1309 October, [facility] [address] [id number] [place] [address]- 5461 October, [facility] [address] [id number] [place] [address]- 9080 October, [facility] [address] [id number] [place] [address]- 7893 October, [facility] [address] [id number] [place] [address]- 4763 Oct, [facility] [address] [id number] [place] [address]- 7150 Oct, [facility] [address] [id number] [place] [address]- 9403 Aug, [facility] [address] [id number] [place] [address]- 2717 Aug, [facility] [address] [id number] [place] [address]- 1628 Aug, [facility] [place] [facility] [address] [id number] [place] [address]- 7306 Aug, [facility] [place] [facility] [address] [id number] [place] [address]- 8917 18 Aug, 2012 [facility] [place] [facility] [address] [id number] [place] [address]- [address] Aug, [facility] [place] [facility] [address] [id number] [place] [address]- 7983 Aug, [facility] [place] [facility] [address] [id number] [place] [address]- 7778 25 Aug, 2012 [facility] [address] [id number] [place] [address]- 1066 Aug, 2012 [facility] [place] [facility] [address] [id number] [place] [address]- 2546 11 Aug, 2012 [facility] [place] [facility] [address] [id number] [place] [address] 2546 10 Aug, 2012 [facility] [place] [facility] [address] [id number] [place] [address]- 2548 08 Aug, 2012 [facility] [place] [facility] [address] [id number] [place] [address]- 5506 Aug, [facility] [address] [id number] [place] [address]- 8486 Aug, [facility] [address] [id number] [place] [address]- 0061 30 Jul, 2012 [facility] [place] [facility] [address] [id number] [place] [address]- 1856 Jul, [facility] [address] [id number] [place] [address]- 4439 Jul, [facility] [place] [facility] [address] [id number] [place] [address]- 9[address] Jul, [facility] [place] [facility] [address] [id number] [place] [address]- 7001 Jun, [facility] [place] [facility] [address] [id number] [place] [address]- 2546 Jun, [facility] [place] [facility] [address] [id number] [place] [address]- 2546 Jun, [facility] [place] [facility] [address] [id number] [place] [address]- 2543 Jun, [facility] [place] [facility] [address] [id number] [place] [address] May, [facility] [address] [facility] [id number] [place] [address] May, IMMUNIZATIONS Vaccine Route Administration Date Status ARISTADA 662 MG/2.5 ML (SAMPLE) IM Intramuscular January 18, 2017 Administered SOCIAL HISTORY Never Assessed REASON FOR VISIT Injection - Jay Hernandez MA PLAN OF CARE VITAL SIGNS MEDICATIONS Medication Instructions Dosage Frequency Start Date End Date Duration Status Breo Ellipta 100-25 MCG/INH Inhalation Once a day 1 puff 24h 20 Dec, 2015 90 days Active [place] Carbonate 300 MG TAKE ONE CAPSULE BY MOUTH IN THE MORNING AND TWO CAPSULES AT BEDTIME Active Levothyroxine Sodium 100 MCG Orally Once a day 1 tablet 24h Aug, Active Trazodone HCl 150 MG Orally for sleep 1 tablet at bedtime Active Aristada 882 MG/3.2ML 3.2 ml May, Active Clonazepam 1 MG Orally 3 times a day for anxiety 1 tablet Apr, Active Neurontin 800 MG Orally 2 times a day 1 tablet 12h Aug, Active RESULTS No Results PROCEDURES Procedure Date Ordered Result Body Site ARISTADA 662 MG/2.5 ML (SAMPLE) January 18, 2017 THER/PROPH/DIAG INJ, SC/IM January 18, 2017 INSTRUCTIONS MEDICATIONS ADMINISTERED No Known Medications [...]
--- OUTSIDE RECORDS SUMMARY | 2018-09-02 18:27 | XMS REPORT ---
Author Author AMARI HOWARD [facility] Address [address] [place] [address] Care Team Providers Care Title Officer Name Role Phone AMARI HOWARD Unavailable PROBLEMS Type Condition ICD9-CM Code UPY38-[place] Code Onset Dates Condition Status SNOMED Code Problem Undifferentiated schizophrenia F20.3 Active 576905310 Problem Chronic posttraumatic stress disorder F43.12 Active 113031702 Problem Panic disorder with agoraphobia F40.01 Active 40121730 Problem Other chronic pain G89.29 Active 54727756 Problem Fatty liver K76.0 Active 274769010 Problem Hypothyroid E03.9 Active 78593954 Problem Abuse, drug or alcohol F19.10 Active 66321802 Problem Sleep apnea in adult G47.33 Active 60074245 Problem Panic disorder F41.0 Active 723101472 Problem Depressive disorder, not elsewhere classified F32.9 Active 46814125 Problem BMI 50.0-59.9, adult Z68.43 Active 862718379 Problem Panic disorder without agoraphobia F41.0 Active 42160459 Problem Social phobia F40.10 Active 71981257 Problem Restless legs syndrome G25.81 Active 350780023 Problem Obesity E66.9 Active 806043199 Problem Neuropathy G62.9 Active 259822131 Problem Tunnel vision, unspecified laterality H53.489 Active 804139550 Problem Tachycardia R00.0 Active 5304170 Problem Encounter for therapeutic drug level monitoring Z51.81 Active 262239581 Problem Murmur R01.1 Active 446989921 Problem Orthostatic hypertension I10 Active 93002902 Problem Shortness of breath R06.02 Active 378512630 ALLERGIES No Information ENCOUNTERS Encounter Location Date Diagnosis [facility] [address] [facility] [id number] [address] Dec, [facility] [address] [facility] [id number] [place] [address] 16197- 2130 Dec, [facility] [id number] [place] [address] 70660- 8732 Dec, [facility] [id number] [place] [address] 58862- 7982 Dec, Undifferentiated schizophrenia F20.3 [facility] [id number] [place] [address] 26914- 5817 Dec, [facility] [id number] [place] [address] 70302- 2775 Dec, [facility] [id number] [place] [address] 86083- 3915 Dec, BMI 50.0-59.9, adult Z68.43 ; Undifferentiated schizophrenia F20.3 ; Panic disorder without agoraphobia F41.0 and Chronic posttraumatic stress disorder F43.12 [facility] [id number] [place] [address] 49779- 4550 Dec, [facility] [id number] [place] [address] 72765- 9045 October, [facility] [id number] [place] [address] 99092- 3064 October, Pain in right shoulder M25.511 and Other chronic pain G89.29 [facility] [id number] [place] [address] 59787- 1919 October, Hypothyroid E03.9 [facility] [id number] [place] [address] 12666- 0107 Oct, Undifferentiated schizophrenia F20.3 [facility] [id number] [place] [address] 41201- 6262 Oct, [facility] [id number] [place] [address] 82131- 8192 Oct, [facility] [id number] [place] [address] 41266- 9801 Aug, Undifferentiated schizophrenia F20.3 [facility] [address] [address]- 8021 Aug, [facility] [id number] [place] [address] 85476- 3753 Aug, Undifferentiated schizophrenia F20.3 ; Panic disorder with agoraphobia F40.01 ; Chronic posttraumatic stress disorder F43.12 and BMI 50.0- 59.9, adult Z68.43 [facility] [id number] [place] [address] 66476- 1292 05 Aug, 2017 [facility] [id number] [place] [address] 21236- 5177 Aug, [facility] [id number] [place] [address] 35616- 7019 Aug, Undifferentiated schizophrenia F20.3 [facility] [id number] [place] [address] 02581- 6190 Aug, Hypothyroid E03.9 [facility] [id number] [place] [address] 71024- 7748 Jul, Undifferentiated schizophrenia F20.3 [facility] [id number] [place] [address] 30081- 5005 Jul, [facility] [id number] [place] [address] 63010- 5654 Jul, Undifferentiated schizophrenia F20.3 ; Chronic posttraumatic stress disorder F43.12 ; Panic disorder with agoraphobia F40.01 and BMI 50.0-59.9, adult Z68.43 [facility] [id number] [place] [address] 04237- 6895 Jul, [facility] [id number] [place] [address] 28882- 4174 Jul, Acute pain of right shoulder M25.511 ; High risk medication use Z79.899 ; Needle stick injury W27.3XXA ; Hypothyroid E03.9 and BMI 50.0-59.9 , adult Z68.43 [facility] [id number] [place] [address] 82246- 1746 Jun, Undifferentiated schizophrenia F20.3 [facility] [id number] [place] [address] 80391- 0363 14 Jun, 2017 Undifferentiated schizophrenia F20.3 ; Panic disorder without agoraphobia F41.0 ; Chronic posttraumatic stress disorder F43.12 and BMI 50.0-59.9, adult Z68.43 [facility] [id number] [place] [address] 46115- 9505 May, [facility] [id number] [place] [address] 63642- 8293 May, [facility] [id number] [place] [address] 37788- 0045 May, Undifferentiated schizophrenia F20.3 [facility] [id number] [place] [address] 48465- 1813 May, [facility] [id number] [place] [address] 34113- 3570 May, [facility] [id number] [place] [address] 84475- 7819 May, Hypothyroid E03.9 [facility] [id number] [place] [address] 75355- 3811 13 May, 2017 [facility] [id number] [place] [address] 58463- 4190 10 May, 2017 [facility] [id number] [place] [address] 43851- 3321 07 May, 2017 Chronic posttraumatic stress disorder F43.12 ; Panic disorder with agoraphobia F40.01 ; Undifferentiated schizophrenia F20.3 ; BMI 40.0-44.9, adult Z68.41 and Obesity E66.9 [facility] [id number] [place] [address] 48516- 5026 May, Shortness of breath R06.02 [facility] [id number] [place] [address] 65440- 0864 May, [facility] [id number] [place] [address] 26914- 0951 Apr, Undifferentiated schizophrenia F20.3 [facility] [id number] [place] [address] 86990- 1525 Apr, [facility] [id number] [place] [address] 70691- 6567 Apr, [facility] [id number] [place] [address] 86986- 3567 Mar, Undifferentiated schizophrenia F20.3 ; Panic disorder without agoraphobia F41.0 and Chronic posttraumatic stress disorder F43.12 [facility] [id number] [place] [address] 70857- 1776 Mar, Undifferentiated schizophrenia F20.3 [facility] [id number] [place] [address] 09474- 4824 18 Mar, 2017 [facility] [id number] [place] [address] 68230- 9761 08 Mar, 2017 [facility] [id number] [place] [address] 52015- 8637 Mar, [facility] [id number] [place] [address] 92986- 2534 Jan, Undifferentiated schizophrenia F20.3 [facility] [address], [place] [address]- 0250 Jan, [facility] [id number] [place] [address] 40146- 1819 Jan, [facility] [address] [address]- 3993 Jan, [place] [id number] [id number] Dec, Needle stick injury W27.3XXA [facility] [id number] [place] [address] 25792- 8876 Dec, Needle stick injury W27.3XXA [facility] [id number] [place] [address] 68080- 9234 Dec, Undifferentiated schizophrenia F20.3 [facility] [id number] [place] [address] 86063- 0796 Dec, [facility] [id number] [place] [address] 79249- 7315 Dec, [facility] [id number] [place] [address] 24159- 5506 Dec, Undifferentiated schizophrenia F20.3 ; Panic disorder with agoraphobia F40.01 and Chronic posttraumatic stress disorder F43.12 [facility] [id number] [place] [address] 02745- 8888 Dec, [facility] [id number] [place] [address] 93909- 1247 October, [facility] [id number] [place] [address] 56087- 5996 October, Undifferentiated schizophrenia F20.3 [facility] [id number] [place] [address] 70724- 3697 October, [facility] [id number] [place] [address] 17030- 8596 October, [facility] [id number] [place] [address] 63013- 5816 Oct, Undifferentiated schizophrenia F20.3 ; Panic disorder with agoraphobia F40.01 ; Chronic posttraumatic stress disorder F43.12 and Obesity E66.9 [facility] [id number] [place] [address] 40679- 4856 Oct, [facility] [id number] [place] [address] 41329- 5910 Oct, [facility] [address] [address]- 3223 Aug, Undifferentiated schizophrenia F20.3 [facility] [address], [place] [address]- 5489 Aug, [facility] [id number] [place] [address] 18537- 4509 Aug, Muscle spasm M62.838 [facility] [id number] [place] [address] 20861- 7322 Aug, Undifferentiated schizophrenia F20.3 [facility] [id number] [place] [address] 06351- 2863 Aug, Undifferentiated schizophrenia F20.3 ; Panic disorder with agoraphobia F40.01 ; Chronic posttraumatic stress disorder F43.12 ; High risk medication use Z79.899 and Social phobia F40.10 [facility] [id number] [place] [address] 42221- 4788 Aug, Undifferentiated schizophrenia F20.3 [facility] [id number] [place] [address] 94139- 4722 Aug, [facility] [id number] [place] [address] 36528- 9538 14 Aug, 2016 Acute non-recurrent maxillary sinusitis J01.00 [facility] [id number] [place] [address] 84378- 5224 Aug, [facility] [id number] [place] [address] 75722- 5630 Aug, [facility] [id number] [place] [address] 15759- 9914 Jul, Undifferentiated schizophrenia F20.3 [facility] [address], [place] [address]- 9679 Jul, Schizophrenia, undifferentiated F20.3 ; Social phobia F40.10 ; Post-traumatic stress disorder F43.10 ; Panic disorder F41.0 and Depressive disorder, not elsewhere classified F32.9 [facility] [id number] [place] [address] 34639- 6939 Jul, [facility] [id number] [place] [address] 06847- 4783 Jul, Schizophrenia, undifferentiated F20.3 ; Social phobia F40.10 ; Post-traumatic stress disorder F43.10 ; Panic disorder F41.0 and Depressive disorder, not elsewhere classified F32.9 [facility] [id number] [place] [address] 39989- 9962 Jul, [facility] [id number] [place] [address] 69140- 4979 Jul, Undifferentiated schizophrenia F20.3 ; Panic disorder with agoraphobia F40.01 ; Social phobia F40.10 ; Obesity E66.9 and Chronic posttraumatic stress disorder F43.12 [facility] [id number] [place] [address] 19242- 3109 Jun, [facility] [id number] [place] [address] 35434- 5590 Jun, [facility] [id number] [place] [address] 56659- 5733 Jun, Dental caries K02.9 [facility] [id number] [place] [address] 94059- 5043 Jun, Undifferentiated schizophrenia F20.3 [facility] [id number] [place] [address] 81802- 9158 May, [facility] [id number] [place] [address] 31810- 7173 May, Undifferentiated schizophrenia F20.3 ; Panic disorder with agoraphobia F40.01 and Chronic post-traumatic stress disorder (PTSD) F43.12 [facility] [id number] [place] [address] 02318- 5330 May, [facility] [id number] [place] [address] 74720- 3305 May, Undifferentiated schizophrenia F20.3 [facility] [id number] [place] [address] 28162- 0916 10 May, 2016 [facility] [id number] [place] [address] 38762- 9801 07 May, 2016 Dental examination Z01.20 [facility] [id number] [place] [address] 86563- 5291 Apr, Undifferentiated schizophrenia F20.3 ; PTSD (post-traumatic stress disorder) F43.10 and Obesity E66.9 [facility] [id number] [place] [address] 48295- 6469 Apr, [facility] [id number] [place] [address] 35983- 7569 Mar, [facility] [id number] [place] [address] 98636- 9157 Mar, [facility] [id number] [place] [address] 40885- 5709 Jan, Shortness of breath R06.02 and Bipolar disorder with psychotic features F31.9 [facility] [id number] [place] [address] 35923- 1825 Jan, [facility] [id number] [place] [address] 38492- 5661 Jan, Increased intracranial pressure G93.2 ; Visual disturbance H53.9 and Bipolar II disorder F31.81 [facility] [id number] [place] [address] 90867- 4191 Jan, [facility] [id number] [place] [address] 37978- 1169 Jan, [facility] [id number] [place] [address] 86274- 8453 Jan, [place] [id number] [place] [address] 48648- 8001 Jan, Acquired hypothyroidism E03.9 ; Depression F32.9 and Insomnia G47.00 [place] [id number] [place] [address] 86026- 2246 Jan, Exertional dyspnea R06.09 ; Heart palpitations R00.2 ; Hyperlipidemia, unspecified hyperlipidemia type E78.5 ; Hypothyroidism, unspecified type E03.9 and Hypokalemia E87.6 [place] [address] 52081- 2015 Dec, PTSD (post-traumatic stress disorder) F43.10 ; Depression F32.9 ; Insomnia G47.00 and Bipolar disorder with psychotic features F31.9 [place] [address] 65848- 5802 Dec, Increased intracranial pressure G93.2 [place] [address] 69383- 5381 Dec, [place] [address] 88903- 4543 Dec, Shortness of breath R06.02 [place] [id number] [place] [address] 37767- 4048 Dec, Visual disturbance H53.9 and Headache, unspecified headache type R51 [place] [address] 86919- 8534 Dec, Insomnia G47.00 [place] [address] 02524- 9701 Dec, Murmur R01.1 [place] [address] 32592- 0489 Dec, Murmur R01.1 ; Tunnel vision, unspecified laterality H53.489 ; Orthostatic hypertension I10 ; Shortness of breath R06.02 and Tachycardia R00.0 [facility] [id number] [place] [address] 89993- 2940 Dec, [facility] [address] 96697- 2944 Dec, Hypothyroid E03.9 and Bipolar 1 disorder F31.9 [place] [id number] [place] [address] 32355- 2805 Dec, Bipolar 1 disorder F31.9 [facility] [address] 20536- 8561 Dec, [place] [address] 92767- 0561 October, Acquired hypothyroidism E03.9 ; Depression F32.9 and Insomnia G47.00 [place] [id number] [place] [address] 79624- 3613 October, [place] [id number] [place] [address] 95304- 2796 October, Bipolar 1 disorder F31.9 ; PTSD (post-traumatic stress disorder) F43.10 and Social phobia F40.10 [place] [id number] [place] [address] 07629- 6692 Oct, Bipolar 1 disorder F31.9 and Insomnia G47.00 [place] [id number] [place] [address] 11556- 6553 Oct, [facility] [id number] [place] [address] 19761- 0883 Oct, [place] [id number] [place] [address] 61651- 2336 Aug, Hypothyroid E03.9 [facility] [id number] [place] [address] 94598- 5557 Aug, Encounter for therapeutic drug level monitoring Z51.81 and 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 [place] [id number] [place] [address] 36626- 1951 17 Sep, 2015 Encounter for therapeutic drug level monitoring Z51.81 [facility] [address] 42010- 2181 Aug, Acquired hypothyroidism E03.9 ; Leg pain M79.606 and Bipolar 1 disorder F31.9 [facility] [address] 23336- 3055 Aug, [facility] [address] 69851- 3807 Aug, [facility] [address] 54242- 2717 Jul, Thyroid disorder E07.9 [facility] [address] 39168- 5924 Jul, Rash R21 ; Abnormal LFTs R94.5 ; Acquired hypothyroidism E03.9 ; Sleep apnea in adult G47.33 and Fatty liver K76.0 [facility] [address] 27902- 9958 Jun, [facility] [address] 99242- 7066 Jun, [facility] [id number] [place] [address] 53766- 6075 Jun, Bipolar II disorder F31.81 and Social phobia, generalized F40.11 [facility] [id number] [place] [address] 15360- 2572 Mar, Bipolar II disorder 296.89 and Social phobia 300.23 [facility] [address] 58401- 5106 Dec, [facility] [address] 18911- 5245 Dec, [facility] [address] 20067- 8709 Dec, Bipolar II disorder in partial or unspecified remission 296.89 and Social phobia, generalized 300.23 [facility] [id number] 1242 Oct, 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 [facility] [address] [address]- 2049 Oct, [facility] [id number] 2717 Oct, [facility] [address], [place] [address]- 4711 Aug, [facility] [address] 1648 Aug, [facility] [address], [place] [address]- 2668 Aug, [facility] [address], [place] [address]- 8521 Aug, [facility] [address], [place] [address]- 2085 Aug, [facility] [address], [place] [address]- 0908 Aug, [facility] [address], [place] [address]- 4778 Aug, [facility] [address], [place] [address]- 3860 Aug, [facility] [address] 8591 Jul, [facility] [address] 0530 Jul, [facility] [address] 1297 Jul, [facility] [place] [facility] [address] [facility] [id number] [place] [address]- 2239 Jul, [facility] [address] [id number] [place] [address]- 9494 Jul, [facility] [place] [facility] [address] [id number] [place] [address]- 7130 Jul, [facility] [address] [id number] [place] [address]- 7526 Jun, [facility] [place] [facility] [address] [id number] [place] [address]- 6492 Jun, [facility] [place] [facility] [address] [id number] [place] 9596 Jun, [facility] [place] [facility] [address] [id number] [place] [address]- 5817 Jun, [facility] [place] [facility] [address] [id number] [place] [address]- 6780 Jun, [facility] [address] [id number] [place] [address]- 1665 Jun, [facility] [place] [facility] [address] [id number] [place] [address]- 5163 Jun, [facility] [place] [facility] [address] [id number] [place] [id number] Jun, [facility] [place] [facility] [address] [id number] [place] [address] Jun, [facility] [place] [facility] [address] [id number] [place] [address] Jun, [facility] [place] [facility] [address] [id number] [place] [address] Jun, [facility] [place] [facility] [address] [id number] [place] [address] Jun, [facility] [place] [facility] [address] [id number] [place] [address] Jun, [facility] [place] [facility] [address] [id number] [place] [address] Jun, [facility] [place] [facility] [address] [id number] [place] [address] Jun, [facility] [place] [facility] [address] [id number] [id number] [id number] Jun, [facility] [place] [facility] [address] [id number] [place] [address] May, [facility] [place] [facility] [address] [address] [id number] [place] [address] May, [facility] [place] [facility] [address] [id number] [place] [address] May, [facility] [place] [facility] [address] [id number] [place] [address] May, [facility] [place] [facility] [address] [id number] [address] May, [facility] [place] [facility] [address] [id number] [place] [address]65 May, [facility] [place] [facility] [address] [id number][place] [address] Apr, [facility] [place] [facility] [address] [id number], [place] [address] Apr, [facility] [place] [facility] [address] [id number][place] [address]187 Apr, [facility] [place] [facility] [address] [id number][place] [address] Apr, [facility] [place] [facility] [address] [id number][place] [address] Apr, [facility] [place] [facility] [address] [id number][place] [address] Apr, [facility] [place] [facility] [address] [id number] [place] [address]47 Mar, [facility] [place] [facility] [address] [id number] [place] [address] 9144 Mar, [facility] [place] [facility] [address] [id number] [place] [address]600 Mar, [facility] [place] [facility] [address] [id number] [place] [address] 9247 Mar, [facility] [place] [facility] [address] [id number] [place] [address]121 Jan, [facility] [place] [facility] [address] [id number] [place] [address] Jan, [facility] [place] [facility] [address] [id number] [place] [address] 4075 Jan, [facility] [place] [facility] [address] [id number] [place] [address] 9649 Jan, [facility] [place] [facility] [address] [id number] [place] [address] 8641 Jan, [facility] [place] [facility] [address] [id number] [place] [address] 1708 Jan, [facility] [place] [facility] [address] [id number] [place] [address] 6792 Dec, [facility] [place] [facility] [address] [id number] [place] [address] 5450 Dec, [facility] [place] [facility] [address] [id number] [place] [address] 8445 Dec, [facility] [place] [facility] [address] [id number] [place] [address] 1976 Dec, [facility] [place] [facility] [address] [id number] [place] [address] 4017 Dec, [facility] [place] [facility] [address] [id number] [place] [address] 2523 Dec, [facility] [place] [facility] [address] [id number] [place] [address] 5620 October, [facility] [place] [facility] [address] [id number] [place] [address] 0487 October, [facility] [place] [facility] [address] [id number] [place] [address] 6766 October, [facility] [place] [facility] [address] [id number] [place] [address] 6355 October, [facility] [place] [facility] [address] [id number] [place] [address] 47[address] October, [facility] [place] [facility] [address] [id number] [place] [address]21 October, [facility] [place] [facility] [address] [id number] [place] [address] 7254 October, [facility] [place] [facility] [address] [id number] [place] [address] 2602 October, [facility] [place] [facility] [address] [id number] [place] [address] 27[address] Oct, [facility] [place] [facility] [address] [id number] [place] [address] 3965 Oct, [facility] [place] [facility] [address] [id number] [place] [address] 1326 Oct, [facility] [place] [facility] [address] [id number] [place] [address] 7970 Oct, [facility] [place] [facility] [address] [id number] [place] [address] 1039 Oct, [facility] [place] [facility] [address] [id number] [place] [address] 7795 Aug, [facility] [place] [facility] [address] [id number] [place] [address] Aug, [facility] [place] [facility] [address] [id number] [place] [address] 4241 Aug, [facility] [address] [id number] [place] [address] 1692 Aug, [facility] [place] [facility] [address] [id number] [place] [address] Aug, [facility] [place] [facility] [address] [id number] [place] [address] 7937 Aug, [facility] [place] [facility] [address] [id number] [place] [address] 0169 Jul, [facility] [place] [facility] [address] [id number] [place] [address] 8543 Jul, [facility] [address] [id number] [place] [address] 5271 Jul, [facility] [address] [id number] [place] [address]- 2287 Jul, [facility] [place] [facility] [address] [id number] [place] [address] 0379 Jul, [facility] [address] [id number] [place] [address]- 8624 Jul, [facility] [address] [id number] [place] [address] 9228 Jun, [facility] [address] [id number][place] [address]- 89[address] Jun, [facility] [place] [facility] [address] [id number][place] [address] 0359 Jun, [facility] [place] [facility] [address] [id number] [place] [address]- 3466 Jun, [facility] [place] [facility] [address] [id number] [place] [address]- 8653 Jun, [facility] [place] [facility] [address] [id number] [place] [address]- 9196 Jun, [facility] [place] [facility] [address] [id number] [place] [address]- 1593 May, [facility] [place] [facility] [address] [id number] [place] [address]- 4607 May, [facility] [place] [facility] [address] [id number] [place] [address]- 5612 Apr, [facility] [place] [facility] [address] [id number] [place] [address]- 9790 Apr, [facility] [place] [facility] [address] [id number] [place] [address]- 7300 Apr, [facility] [place] [facility] [address] [id number] [place] [address]- 0393 Apr, [facility] [place] [facility] [address] [id number] [place] [address] Apr, [facility] [place] [facility] [address] [id number] [place] [address]- 8440 Apr, [facility] [place] [facility] [address] [id number] [place] [address]- 8055 Apr, [facility] [place] [facility] [address] [id number] [place] [address]- 0177 Apr, [facility] [place] [facility] [address] [id number] [place] [address]- 3752 Apr, [facility] [place] [facility] [address] [id number] [place] [address]- 5109 Apr, [facility] [place] [facility] [address] [id number] [place] [address]- 0647 Apr, [facility] [place] [facility] [address] [id number] [place] [address]- 4677 Mar, [facility] [place] [facility] [address] [id number] [place] [address]- 2444 Mar, [facility] [place] [facility] [address] [id number] [place] [address]- 4473 Mar, [facility] [place] [facility] [address] [id number] [place] [address]- 4181 14 Mar, 2013 [facility] [place] [facility] [address] [id number] [place] [address]- 2143 Mar, [facility] [place] [facility] [address] [id number] [place] [address]- 1445 Mar, [facility] [place] [facility] [address] [id number] [place] [address]- 5150 Mar, [facility] [place] [facility] [address] [id number] [place] [address]- 5071 Jan, [facility] [place] [facility] [address] [id number] [place] [address]- 3609 Jan, [facility] [place] [facility] [address] [id number] [place] [address]- 6028 Jan, [facility] [place] [facility] [address] [id number] [place] [address]- 9266 Jan, [facility] [place] [facility] [address] [id number] [place] [address]- 4738 Jan, [facility] [place] [facility] [address] [id number] [place] [address]- 8319 Jan, [facility] [place] [facility] [address] [id number] [place] [address]- 0496 Jan, [facility] [place] [facility] [address] [id number] [place] [address]- 5218 Dec, [facility] [place] [facility] [address] [id number] [place] [address]- 1808 Dec, [facility] [place] [facility] [address] [id number] [place] [address]- 9372 Dec, [facility] [place] [facility] [address] [id number] [place] [address]- 3397 Dec, [facility] [place] [facility] [address] [id number] [place] [address]- 7179 08 Dec, 2012 [facility] [address] [id number] [place] [address]- 2917 08 Dec, 2012 [facility] [address] [id number] [place] [address]- 9862 October, [facility] [address] [id number] [place] [address]- 2270 October, [facility] [address] [id number] [place] [address]- 7877 October, [facility] [address] [id number] [place] [address]- 1343 October, [facility] [address] [id number] [place] [address]- 0271 Oct, [facility] [address] [id number] [place] [address]- 3397 Oct, [facility] [address] [id number] [place] [address]- 6612 Aug, [facility] [address] [id number] [place] [address]- 4850 Aug, [facility] [address] [id number] [place] [address]- 1105 Aug, [facility] [address] [id number] [place] [address]- 2979 Aug, [facility] [place] [facility] [address] [id number] [place] [address]- 8569 18 Aug, 2012 [facility] [place] [facility] [address] [id number] [place] [address]- 3233 Aug, [facility] [place] [facility] [address] [id number] [place] [address]- 5705 Aug, [facility] [address] [id number] [place] [address]- 3778 Aug, [facility] [address] [id number] [place] [address]- 4341 Aug, [facility] [place] [facility] [address] [id number] [place] [address]- 2846 Aug, [facility] [place] [facility] [address] [id number] [place] [address]- 0506 Aug, [facility] [place] [facility] [address] [id number] [place] [address] 2546 Aug, [facility] [address] [id number] [place] [address] 2541 Aug, [facility] [place] [facility] [address] [id number] [place] [address]- 9415 Aug, [facility] [address] [id number] [place] [address]- 8358 Jul, [facility] [address] [id number] [place] [address]- 4418 Jul, [facility] [address] [id number] [place] [address]- 8400 Jul, [facility] [address] [id number] [place] [address]- 8831 Jul, [facility] [place] [facility] [address] [id number] [place] [address]- 8729 Jun, [facility] [place] [facility] [address] [id number] [place] [address]- 2543 Jun, [facility] [place] [facility] [address] [id number] [place] [address] 2546 Jun, [facility] [place] [facility] [address] [id number] [place] [address]- 2540 Jun, [facility] [place] [facility] [address] [id number] [place] [address]- 2548 May, [facility] [place] [facility] [address] [facility] [id number] [place] [address] [address] May, IMMUNIZATIONS Vaccine Route Administration Date Status ARISTADA 882 MG/2.5 ML (PT'S OWN) IM Intramuscular Jul 28, 2017 Administered SOCIAL HISTORY Never Assessed REASON FOR VISIT Injection-Raza ZAMBRANO PLAN OF CARE VITAL SIGNS MEDICATIONS Unknown Medications RESULTS No Results PROCEDURES Procedure Date Ordered Result Body Site ARISTADA 882 MG/2.5 ML (PT'S OWN) Jul 28, 2017 THER/PROPH/DIAG INJ, SC/IM Jul 28, 2017 INSTRUCTIONS MEDICATIONS ADMINISTERED No Known Medications [...]
--- OUTSIDE RECORDS SUMMARY | 2018-09-02 18:28 | XMS REPORT ---
Author Author AMARI HOWARD [facility] Address [address] [place] [address] Care Team Providers Care Guillotine Trimmer Name Role Phone AMARI HOWARD Unavailable PROBLEMS Type Condition ICD9-CM Code [id number] Code Onset Dates Condition Status SNOMED Code Problem Undifferentiated schizophrenia F20.3 Active 634032011 Problem Chronic posttraumatic stress disorder F43.12 Active 756484531 Problem Panic disorder with agoraphobia F40.01 Active 40203900 Problem Other chronic pain G89.29 Active 74017140 Problem Fatty liver K76.0 Active 044913020 Problem Hypothyroid E03.9 Active 98026208 Problem Abuse, drug or alcohol F19.10 Active 75692940 Problem Sleep apnea in adult G47.33 Active 01126301 Problem Panic disorder F41.0 Active 886308110 Problem Depressive disorder, not elsewhere classified F32.9 Active 15619257 Problem BMI 50.0-59.9, adult Z68.43 Active 036091284 Problem Panic disorder without agoraphobia F41.0 Active 46405689 Problem Social phobia F40.10 Active 34624207 Problem Restless legs syndrome G25.81 Active 616405750 Problem Obesity E66.9 Active 785307201 Problem Neuropathy G62.9 Active 493697753 Problem Tunnel vision, unspecified laterality H53.489 Active 533303537 Problem Tachycardia R00.0 Active 8839901 Problem Encounter for therapeutic drug level monitoring Z51.81 Active 727435277 Problem Murmur R01.1 Active 174251372 Problem Orthostatic hypertension I10 Active 73605291 Problem Shortness of breath R06.02 Active 075123255 ALLERGIES No Known Allergies ENCOUNTERS Encounter Location Date Diagnosis [facility] [address] [facility] [id number] [address] Dec, [facility] [address] [facility] [id number], [place] [address] 48[address] Dec, [facility] [id number] [place] [address] 88806- 3975 Dec, [facility] [id number] [place] [address] 79771- 3947 Dec, Undifferentiated schizophrenia F20.3 [facility] [id number] [place] [address] 20029- 5296 Dec, [facility] [id number] [place] [address] 48107- 9772 Dec, [facility] [id number] [place] [address] 26803- 0558 Dec, BMI 50.0-59.9, adult Z68.43 ; Undifferentiated schizophrenia F20.3 ; Panic disorder without agoraphobia F41.0 and Chronic posttraumatic stress disorder F43.12 [facility] [id number] [place] [address] 71057- 5797 Dec, [facility] [id number] [place] [address] 03776- 4449 October, [facility] [id number] [place] [address] 63997- 5367 October, Pain in right shoulder M25.511 and Other chronic pain G89.29 [facility] [id number] [place] [address] 05321- 5541 October, Hypothyroid E03.9 [facility] [id number] [place] [address] 20334- 6524 Oct, Undifferentiated schizophrenia F20.3 [facility] [id number] [place] [address] 72375- 2867 Oct, [facility] [id number] [place] [address] 34264- 7315 Oct, [facility] [id number] [place] [address] 52892- 4839 Aug, Undifferentiated schizophrenia F20.3 [facility] [address] [address] 7306 Aug, [facility] [id number] [place] [address] 13590- 9166 Aug, Undifferentiated schizophrenia F20.3 ; Panic disorder with agoraphobia F40.01 ; Chronic posttraumatic stress disorder F43.12 and BMI 50.0- 59.9, adult Z68.43 [facility] [id number] [place] [address] 64231- 8808 05 Aug, 2017 [facility] [id number] [place] [address] 14353- 9957 Aug, [facility] [id number] [place] [address] 68702- 5163 Aug, Undifferentiated schizophrenia F20.3 [facility] [id number] [place] [address] 82993- 7826 Aug, Hypothyroid E03.9 [facility] [id number] [place] [address] 20938- 1216 Jul, Undifferentiated schizophrenia F20.3 [facility] [id number] [place] [address] 15073- 0510 Jul, [facility] [id number] [place] [address] 27699- 3704 Jul, Undifferentiated schizophrenia F20.3 ; Chronic posttraumatic stress disorder F43.12 ; Panic disorder with agoraphobia F40.01 and BMI 50.0-59.9, adult Z68.43 [facility] [id number] [place] [address] 17700- 1427 Jul, [facility] [id number] [place] [address] 48907- 7137 Jul, Acute pain of right shoulder M25.511 ; High risk medication use Z79.899 ; Needle stick injury W27.3XXA ; Hypothyroid E03.9 and BMI 50.0-59.9 , adult Z68.43 [facility] [id number] [place] [address] 75702- 8756 Jun, Undifferentiated schizophrenia F20.3 [facility] [id number] [place] [address] 52967- 8996 14 Jun, 2017 Undifferentiated schizophrenia F20.3 ; Panic disorder without agoraphobia F41.0 ; Chronic posttraumatic stress disorder F43.12 and BMI 50.0-59.9, adult Z68.43 [facility] [id number] [place] [address] 49537- 6881 May, [facility] [id number] [place] [address] 97896- 9412 May, [facility] [id number] [place] [address] 42166- 8065 May, Undifferentiated schizophrenia F20.3 [facility] [id number] [place] [address] 88913- 5086 May, [facility] [id number] [place] [address] 95840- 3845 May, [facility] [id number] [place] [address] 33046- 3930 May, Hypothyroid E03.9 [facility] [id number] [place] [address] 48633- 5762 May, [facility] [id number] [place] [address] 75098- 2653 May, [facility] [id number] [place] [address] 22753- 8784 07 May, 2017 Chronic posttraumatic stress disorder F43.12 ; Panic disorder with agoraphobia F40.01 ; Undifferentiated schizophrenia F20.3 ; BMI 40.0-44.9, adult Z68.41 and Obesity E66.9 [facility] [id number] [place] [address] 22044- 3411 May, Shortness of breath R06.02 [facility] [id number] [place] [address] 58800- 7645 May, [facility] [id number] [place] [address] 07387- 2230 Apr, Undifferentiated schizophrenia F20.3 [facility] [id number] [place] [address] 66139- 6027 Apr, [facility] [id number] [place] [address] 67147- 0531 Apr, [facility] [id number] [place] [address] 79735- 4027 Mar, Undifferentiated schizophrenia F20.3 ; Panic disorder without agoraphobia F41.0 and Chronic posttraumatic stress disorder F43.12 [facility] [id number] [place] [address] 01219- 4154 Mar, Undifferentiated schizophrenia F20.3 [facility] [id number] [place] [address] 79907- 5302 18 Mar, 2017 [facility] [id number] [place] [address] 14485- 6773 08 Mar, 2017 [facility] [id number] [place] [address] 92478- 9271 Mar, [facility] [id number] [place] [address] 21862- 8582 Jan, Undifferentiated schizophrenia F20.3 [facility] [id number] [place] [address] 48125- 1620 Jan, [facility] [id number] [place] [address] 76056- 2645 Jan, [facility] [id number] [place] [address] 84137- 0675 Jan, [address] [id number] [id number] Dec, Needle stick injury W27.3XXA [facility] [id number] [place] [address] 27072- 5056 Dec, Needle stick injury W27.3XXA [facility] [id number] [place] [address] 93590- 5805 Dec, Undifferentiated schizophrenia F20.3 [facility] [id number] [place] [address] 03229- 3522 Dec, [facility] [id number] [place] [address] 31449- 0963 Dec, [facility] [id number] [place] [address] 96038- 6746 Dec, Undifferentiated schizophrenia F20.3 ; Panic disorder with agoraphobia F40.01 and Chronic posttraumatic stress disorder F43.12 [facility] [id number] [place] [address] 37234- 2805 Dec, [facility] [id number] [place] [address] 94816- 4809 October, [facility] [id number] [place] [address] 99305- 0354 October, Undifferentiated schizophrenia F20.3 [facility] [id number] [place] [address] 66172- 1107 October, [facility] [id number] [place] [address] 76722- 0155 October, [facility] [id number] [place] [address] 62676- 2964 Oct, Undifferentiated schizophrenia F20.3 ; Panic disorder with agoraphobia F40.01 ; Chronic posttraumatic stress disorder F43.12 and Obesity E66.9 [facility] [id number] [place] [address] 90963- 2425 Oct, [facility] [id number] [place] [address] 38995- 5101 Oct, [facility] [address] [address]- 7636 Aug, Undifferentiated schizophrenia F20.3 [facility] [address] [address]- 1956 Aug, [facility] [id number] [place] [address] 16882- 8012 Aug, Muscle spasm M62.838 [facility] [id number] [place] [address] 85369- 3290 Aug, Undifferentiated schizophrenia F20.3 [facility] [id number] [place] [address] 08705- 9409 Aug, Undifferentiated schizophrenia F20.3 ; Panic disorder with agoraphobia F40.01 ; Chronic posttraumatic stress disorder F43.12 ; High risk medication use Z79.899 and Social phobia F40.10 [facility] [address] [id number] [address]- 3701 Aug, Undifferentiated schizophrenia F20.3 [facility] [id number] [place] [address] 88442- 4372 Aug, [facility] [id number] [place] [address] 92863- 1402 14 Aug, 2016 Acute non-recurrent maxillary sinusitis J01.00 [facility] [id number] [place] [address] 70079- 5527 Aug, [facility] [id number] [place] [address] 66889- 2686 Aug, [facility] [id number] [place] [address] 53423- 3214 Jul, Undifferentiated schizophrenia F20.3 [facility] [address] [address]- 4051 Jul, Schizophrenia, undifferentiated F20.3 ; Social phobia F40.10 ; Post-traumatic stress disorder F43.10 ; Panic disorder F41.0 and Depressive disorder, not elsewhere classified F32.9 [facility] [id number] [place] [address] 37867- 8090 Jul, [facility] [id number] [place] [address] 64693- 8566 Jul, Schizophrenia, undifferentiated F20.3 ; Social phobia F40.10 ; Post-traumatic stress disorder F43.10 ; Panic disorder F41.0 and Depressive disorder, not elsewhere classified F32.9 [facility] [id number] [place] [address] 85902- 9633 Jul, [facility] [id number] [place] [address] 36490- 5994 Jul, Undifferentiated schizophrenia F20.3 ; Panic disorder with agoraphobia F40.01 ; Social phobia F40.10 ; Obesity E66.9 and Chronic posttraumatic stress disorder F43.12 [facility] [id number] [place] [address] 36246- 4307 Jun, [facility] [id number] [place] [address] 05513- 5437 Jun, [facility] [id number] [place] [address] 82424- 2411 Jun, Dental caries K02.9 [facility] [id number] [place] [address] 21228- 9499 Jun, Undifferentiated schizophrenia F20.3 [facility] [id number] [place] [address] 04752- 2794 May, [facility] [id number] [place] [address] 99278- 4069 May, Undifferentiated schizophrenia F20.3 ; Panic disorder with agoraphobia F40.01 and Chronic post-traumatic stress disorder (PTSD) F43.12 [facility] [id number] [place] [address]- 2546 May, [facility] [address], [place] [address]- 8556 May, Undifferentiated schizophrenia F20.3 [facility] [id number] [place] [address] 06581- 2970 10 May, 2016 [facility] [id number] [place] [address] 29725- 2923 07 May, 2016 Dental examination Z01.20 [facility] [id number] [place] [address] 07538- 3274 20 Apr, 2016 Undifferentiated schizophrenia F20.3 ; PTSD (post-traumatic stress disorder) F43.10 and Obesity E66.9 [facility] [id number] [place] [address] 82465- 9143 Apr, [facility] [id number] [place] [address] 40373- 7300 15 Mar, 2016 [facility] [id number] [place] [address] 77805- 8975 Mar, [facility] [id number] [place] [address] 23251- 0676 Jan, Shortness of breath R06.02 and Bipolar disorder with psychotic features F31.9 [facility] [id number] [place] [address] 52831- 7354 Jan, [facility] [id number] [place] [address] 63825- 2716 Jan, Increased intracranial pressure G93.2 ; Visual disturbance H53.9 and Bipolar II disorder F31.81 [facility] [id number] [place] [address] 00825- 2561 Jan, [facility] [id number] [place] [address] 91766- 1133 Jan, [facility] [id number] [place] [address] 40684- 4375 Jan, [place] [id number] [place] [address] 86706- 8887 Jan, Acquired hypothyroidism E03.9 ; Depression F32.9 and Insomnia G47.00 [place] [id number] [place] [address] 13148- 4587 Jan, Exertional dyspnea R06.09 ; Heart palpitations R00.2 ; Hyperlipidemia, unspecified hyperlipidemia type E78.5 ; Hypothyroidism, unspecified type E03.9 and Hypokalemia E87.6 [place] [address] 53485- 3597 Dec, PTSD (post-traumatic stress disorder) F43.10 ; Depression F32.9 ; Insomnia G47.00 and Bipolar disorder with psychotic features F31.9 [place] [address] 79319- 3771 Dec, Increased intracranial pressure G93.2 [place] [address] 89650- 7894 Dec, [place] [address] 29050- 8345 Dec, Shortness of breath R06.02 [place] [address] 70571- 3223 Dec, Visual disturbance H53.9 and Headache, unspecified headache type R51 [place] [id number] [place] [address] 92664- 8946 Dec, Insomnia G47.00 [place] [address] 84003- 4415 Dec, Murmur R01.1 [place] [address] 69279- 9027 Dec, Murmur R01.1 ; Tunnel vision, unspecified laterality H53.489 ; Orthostatic hypertension I10 ; Shortness of breath R06.02 and Tachycardia R00.0 [facility] [id number] [place] [address] 63213- 3341 Dec, [facility] [id number] [place] [address] 99353- 6629 Dec, Hypothyroid E03.9 and Bipolar 1 disorder F31.9 [facility] [id number] [place] [address] 73509- 9995 Dec, Bipolar 1 disorder F31.9 [facility] [id number] [place] [address] 94228- 0751 Dec, [facility] [address] 47322- 2752 October, Acquired hypothyroidism E03.9 ; Depression F32.9 and Insomnia G47.00 [place] [id number] [place] [address] 00074- 6946 October, [facility] [id number] [place] [address] 97310- 1936 October, Bipolar 1 disorder F31.9 ; PTSD (post-traumatic stress disorder) F43.10 and Social phobia F40.10 [place] [id number] [place] [address] 82521- 3451 Oct, Bipolar 1 disorder F31.9 and Insomnia G47.00 [facility] [id number] [place] [address] 60364- 4247 Oct, [facility] [id number] [place] [address] 40313- 0748 Oct, [facility] [id number] [place] [address] 13623- 1192 Aug, Hypothyroid E03.9 [facility] [id number] [place] [address] 12710- 7939 Aug, Encounter for therapeutic drug level monitoring Z51.81 and 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 [place] [id number] [place] [address] 22301- 4081 17 Sep, 2015 Encounter for therapeutic drug level monitoring Z51.81 [facility] [address] 01090- 2589 Aug, Acquired hypothyroidism E03.9 ; Leg pain M79.606 and Bipolar 1 disorder F31.9 [facility] [address] 49487- 9737 Aug, [facility] [address] 12962- 4912 Aug, [facility] [address] 99226- 4028 Jul, Thyroid disorder E07.9 [facility] [address] 88281- 3649 Jul, Rash R21 ; Abnormal LFTs R94.5 ; Acquired hypothyroidism E03.9 ; Sleep apnea in adult G47.33 and Fatty liver K76.0 [facility] [address] 39101- 8488 Jun, [facility] [address] 63200- 4734 Jun, [facility] [id number] [place] [address] 22432- 9859 Jun, Bipolar II disorder F31.81 and Social phobia, generalized F40.11 [facility] [id number] [place] [address] 78477- 4513 Mar, Bipolar II disorder 296.89 and Social phobia 300.23 [facility] [address] 19797- 1309 Dec, [facility] [address] 52221- 9317 Dec, [facility] [address] [place] [address]- 1611 Dec, Bipolar II disorder in partial or unspecified remission 296.89 and Social phobia, generalized 300.23 [facility] [id number] [address]- 1171 30 Oct, 2014 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 [facility] [id number] [address]- 2031 Oct, [facility] [id number] [place] [address] 41551- 5509 Oct, [facility] [id number] [place] [address] 66029- 2991 Aug, [facility] [id number] [place] [address] 98767- 1934 Aug, [facility] [id number] [place] [address] 68612- 6777 Aug, [facility] [id number] [address]- 3962 Aug, [facility] [address], [place] [address]- 4556 Aug, [facility] [address], [place] [address]- 0389 Aug, [facility] [address], [place] [address]- 3354 Aug, [facility] [address], [place] [address]- 4867 Aug, [facility] [id number] 5063 Jul, [facility] [id number] 7620 Jul, [facility] [id number]- 6476 Jul, [facility] [place] [facility] [address] [id number] [place] [address]- 0402 Jul, [facility] [place] [facility] [address] [id number] [place] [address]- 4992 Jul, [facility] [place] [facility] [address] [id number] [place] [address]- 99[address] Jul, [facility] [place] [facility] [address] [id number] [place] [address] Jun, [facility] [place] [facility] [address] [id number] [place] [address] Jun, [facility] [place] [facility] [address] [id number] [place] [address] Jun, [facility] [place] [facility] [address] [id number] [place] [address] [address] Jun, [facility] [place] [facility] [address] [id number] [place] [address] Jun, [facility] [place] [facility] [address] [id number] [place] [address] Jun, [facility] [place] [facility] [address] [id number] [place] [address] Jun, [facility] [place] [facility] [address] [id number] [place] [address] Jun, [facility] [place] [facility] [address] [id number] [place] [address] Jun, [facility] [place] [facility] [address] [id number] [place] [address] Jun[facility] [place] [facility] [address] [id number] [place] [address] Jun, [facility] [place] [facility] [address] [id number] [place] [address] Jun, [facility] [place] [facility] [address] [id number] [place] [address] Jun, [facility] [place] [facility] [address] [id number] [place] [address] Jun, [facility] [place] [facility] [address] [id number] [place] [address]- [address] Jun, [facility] [place] [facility] [address] [id number] [place] [address] Jun, [facility] [place] [facility] [address] [id number] [place] [address] May, [facility] [place] [facility] [address] [id number] [place] [address] May, [facility] [place] [facility] [address] [id number] [place] [address] 59[address] May, [facility] [place] [facility] [address] [id number] [place] [address] May, [facility] [place] [facility] [address] [id number], [place] [address] May, [facility] [place] [facility] [address] [id number], [place] [address] May, [facility] [place] [facility] [address] [id number], [place] [address] Apr, [facility] [place] [facility] [address] [id number], [place] [address] Apr, [facility] [place] [facility] [address] [id number], [place] [address] Apr, [facility] [place] [facility] [address] [id number], [place] [address] 73[address] Apr, [facility] [place] [facility] [address] [id number], [place] [address] 41[address] Apr, [facility] [place] [facility] [address] [id number], [place] [address] Apr, [facility] [place] [facility] [address] [id number] [place] [address] Mar, [facility] [place] [facility] [address] [id number] [place] [address] 5875 Mar, [facility] [place] [facility] [address] [id number] [place] [address] Mar, [facility] [place] [facility] [address] [id number] [place] [address] 6063 Mar, [facility] [place] [facility] [address] [id number] [place] [address] 7687 Jan, [facility] [place] [facility] [address] [id number] [place] [address] 1819 Jan, [facility] [place] [facility] [address] [id number] [place] [address] 9900 Jan, [facility] [place] [facility] [address] [id number] [place] [address] 47[address] Jan, [facility] [place] [facility] [address] [id number] [place] [address] 6861 Jan, [facility] [place] [facility] [address] [id number] [place] [address] 0772 Jan, [facility] [place] [facility] [address] [id number] [place] [address] 7209 Dec, [facility] [place] [facility] [address] [id number] [place] [address] 9026 Dec, [facility] [place] [facility] [address] [id number] [place] [address] 6662 Dec, [facility] [place] [facility] [address] [id number] [place] [address] 3492 Dec, [facility] [place] [facility] [address] [id number] [place] [address] 1154 Dec, [facility] [place] [facility] [address] [id number] [place] [address] 9363 Dec, [facility] [place] [facility] [address] [id number] [place] [address] 2717 October, [facility] [place] [facility] [address] [id number] [place] [address] 7163 October, [facility] [place] [facility] [address] [id number] [place] [address] 3[address] October, [facility] [place] [facility] [address] [id number] [place] [address] 3953 October, [facility] [place] [facility] [address] [id number] [place] [address] 7176 October, [facility] [place] [facility] [address] [id number] [place] [address] 5121 October, [facility] [place] [facility] [address] [id number] [place] [address] 56[address] October, [facility] [place] [facility] [address] [id number] [place] [address] 1469 October, [facility] [place] [facility] [address] [id number] [place] [address] 5737 Oct, [facility] [place] [facility] [address] [id number] [place] [address] 2587 Oct, [facility] [place] [facility] [address] [id number] [place] [address] 2798 Oct, [facility] [place] [facility] [address] [id number] [place] [address] 3279 Oct, [facility] [place] [facility] [address] [id number] [place] [address] 3429 Oct, [facility] [place] [facility] [address] [id number] [place] [address] 475[address] Aug, [facility] [place] [facility] [address] [id number] [place] [address] 4651 Aug, [facility] [place] [facility] [address] [id number] [place] [address] 8740 Aug, [facility] [address] [id number] [place] [address] 2483 Aug, [facility] [place] [facility] [address] [id number] [place] [address] 6496 Aug, [facility] [address] [facility] [id number] [place] [address] 1721 Aug, [facility] [place] [facility] [address] [id number] [place] [address] 6598 Jul, [facility] [address] [id number] [place] [address] 2615 Jul, [facility] [address] [id number] [place] [address] 1554 Jul, [facility] [address] [facility] [id number] [place] [address] 3939 Jul, [facility] [place] [facility] [address] [facility] [id number] [place] [address] 9897 Jul, [facility] [address] [facility] [id number] [place] [address] 2219 Jul, [facility] [address] [facility] [id number] [place] [address]- 2468 Jun, [facility] [address] [id number], [place] [address] 9064 Jun, [facility] [place] [facility] [address] [id number], [place] [address] 5312 Jun, [facility] [place] [facility] [address] [id number] [place] [address] 7663 Jun, [facility] [place] [facility] [address] [id number] [place] [address] 3554 Jun, [facility] [place] [facility] [address] [facility] [id number] [place] [address]- 7331 Jun, [facility] [place] [facility] [address] [id number] [place] [address]- 8960 May, [facility] [place] [facility] [address] [id number] [place] [address] 5680 May, [facility] [place] [facility] [address] [id number] [place] [address]- 4005 Apr, [facility] [place] [facility] [address] [id number] [place] [address]- 7375 Apr, [facility] [place] [facility] [address] [id number] [place] [address]- 3926 Apr, [facility] [place] [facility] [address] [id number] [place] [address]- 6233 Apr, [facility] [place] [facility] [address] [id number] [place] [address]- 3617 Apr, [facility] [place] [facility] [address] [id number] [place] [address]- 8111 Apr, [facility] [place] [facility] [address] [id number] [place] [address]- 8038 Apr, [facility] [place] [facility] [address] [id number] [place] [address]- 2315 Apr, [facility] [place] [facility] [address] [id number] [place] [address]- 3494 Apr, [facility] [place] [facility] [address] [id number] [place] [address]- 9502 Apr, [facility] [place] [facility] [address] [id number] [place] [address]- 1771 Apr, [facility] [place] [facility] [address] [id number] [place] [address]- 4908 Mar, [facility] [place] [facility] [address] [id number] [place] [address]- 2280 Mar, [facility] [place] [facility] [address] [id number] [place] [address]- 5443 20 Mar, 2013 [facility] [place] [facility] [address] [id number] [place] [address]- 4172 14 Mar, 2013 [facility] [place] [facility] [address] [id number] [place] [address]- 4355 Mar, [facility] [place] [facility] [address] [id number] [place] [address]- 5571 Mar, [facility] [place] [facility] [address] [id number] [place] [address]- 6099 Mar, [facility] [place] [facility] [address] [id number] [place] [address]- 4978 Jan, [facility] [place] [facility] [address] [id number] [place] [address]- 6080 Jan, [facility] [place] [facility] [address] [id number] [place] [address]- 2738 Jan, [facility] [place] [facility] [address] [id number] [place] [address]- 6357 Jan, [facility] [place] [facility] [address] [id number] [place] [address]- 9597 Jan, [facility] [place] [facility] [address] [id number] [place] [address]- 5462 Jan, [facility] [place] [facility] [address] [id number] [place] [address]- 3516 Jan, [facility] [place] [facility] [address] [id number] [place] [address]- 0518 Dec, [facility] [place] [facility] [address] [id number] [place] [address]- 8184 Dec, [facility] [place] [facility] [address] [id number] [place] [address]- 6251 Dec, [facility] [place] [facility] [address] [id number] [place] [address]- 9085 Dec, [facility] [place] [facility] [address] [id number] [place] [address]- 3763 08 Dec, 2012 [facility] [address] [id number] [place] [address]- 6592 08 Dec, 2012 [facility] [address] [id number] [place] [address]- 5144 October, [facility] [address] [id number] [place] [address]- 2887 October, [facility] [address] [id number] [place] [address]- 0603 October, [facility] [address] [id number] [place] [address]- 7980 October, [facility] [address] [id number] [place] [address]- 1367 Oct, [facility] [address] [id number] [place] [address]- 2978 Oct, [facility] [address] [id number] [place] [address]- 5640 Aug, [facility] [address] [id number] [place] [address]- 5662 Aug, [facility] [address] [id number] [place] [address]- 2812 Aug, [facility] [address] [id number] [place] [address]- 3416 Aug, [facility] [address] [id number] [place] [address]- 3476 18 Aug, 2012 [facility] [address] [id number] [place] [address]- 2474 Aug, [facility] [address] [id number] [place] [address] Aug, [facility] [address] [id number] [place] [address]- 9433 Aug, [facility] [place] [facility] [address] [id number] [place] [address]- 7189 Aug, [facility] [place] [facility] [address] [id number] [place] [address]- 3746 Aug, [facility] [place] [facility] [address] [id number] [place] [address]- 6246 Aug, [facility] [place] [facility] [address] [id number] [place] [address]- 2540 Aug, [facility] [address] [id number] [place] [address]- 5222 Aug, [facility] [place] [facility] [address] [id number] [place] [address]- 2258 Aug, [facility] [address] [id number] [place] [address]- 7640 Jul, [facility] [address] [id number] [place] [address]- 5104 Jul, [facility] [address] [id number] [place] [address]- 7351 Jul, [facility] [address] [id number] [place] [address]- 7347 Jul, [facility] [place] [facility] [address] [id number] [place] [address]- 0470 Jun, [facility] [place] [facility] [address] [id number], [place] [address]- 4888 Jun, [facility] [place] [facility] [address] [id number] [place] [address]- 7019 Jun, [facility] [place] [facility] [address] [id number] [place] [address]- 1124 Jun, [facility] [place] [facility] [address] [id number] [place] [address]- 1281 May, [facility] [place] [facility] [address] [facility] [id number] [place] [address]- 1765 May, IMMUNIZATIONS No Known Immunizations SOCIAL HISTORY Never Assessed REASON FOR VISIT f/u----IRVINGennettHERBERT PLAN OF CARE Activity Details Follow Up 2 Months Reason: VITAL SIGNS Height 67 in 2017-07-18 Weight 345 lbs 2017-07-18 Heart Rate 90 bpm 2017-07-18 Respiratory Rate 20 2017-07-18 BMI 54.03 kg/m2 2017-07-18 Blood pressure systolic 120 mmHg 2017-07-18 Blood pressure diastolic 82 mmHg 2017-07-18 MEDICATIONS Medication Instructions Dosage Frequency Start Date End Date Duration Status Breo Ellipta 100-25 MCG/INH Inhalation Once a day 1 puff 24h 20 Dec, 2015 90 days Active Neurontin 800 MG Orally 2 times a day 1 tablet 12h Aug, 81 days Active Levothyroxine Sodium 100 MCG Orally Once a day 1 tablet 24h Aug, 90 days Active Viola Carbonate 300 MG TAKE ONE CAPSULE BY MOUTH IN THE MORNING AND TWO CAPSULES AT BEDTIME Active Aristada 882 MG/3.2ML Intramuscular once monthly 3.2 ml May, Active Clonazepam 1 MG Orally 3 times a day for anxiety 1 tablet Apr, Active Seroquel 50 MG Orally at bedtime for sleep 1 tablet May, Active Trazodone HCl 100 mg Orally Once [...]
--- OUTSIDE RECORDS SUMMARY | 2018-09-02 18:28 | XMS REPORT ---
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 Name Role Phone JOSE LARRY Unavailable PROBLEMS Type Condition ICD9-CM Code [id number] Code Onset Dates Condition Status SNOMED Code Problem Murmur R01.1 Active 031003652 Problem Shortness of breath R06.02 Active 367863203 Problem Tachycardia R00.0 Active 5000427 Problem Depressive disorder, not elsewhere classified F32.9 Active 15001238 Problem Acquired hypothyroidism E03.9 Active 782519764 Problem Panic disorder without agoraphobia F41.0 Active 01982807 Problem Panic disorder with agoraphobia F40.01 Active 27052171 Problem Undifferentiated schizophrenia F20.3 Active 679534711 Problem Panic disorder F41.0 Active 404647696 Problem Chronic posttraumatic stress disorder F43.12 Active 848674739 Problem Fatty liver K76.0 Active 863555455 Problem Obesity E66.9 Active 605892753 Problem Sleep apnea in adult G47.33 Active 70460526 Problem Abuse, drug or alcohol F19.10 Active 80975433 Problem Neuropathy G62.9 Active 063221198 Problem Encounter for therapeutic drug level monitoring Z51.81 Active 266265069 Problem Social phobia F40.10 Active 90285660 Problem Orthostatic hypertension I10 Active 74032056 Problem Restless legs syndrome G25.81 Active 850325151 Problem Tunnel vision, unspecified laterality H53.489 Active 426429790 ALLERGIES Unknown Allergies SOCIAL HISTORY No smoking Hx information available PLAN OF CARE VITAL SIGNS MEDICATIONS Medication Instructions Dosage Frequency Start Date End Date Duration Status Breo Ellipta 100-25 MCG/INH Inhalation Once a day 1 puff 24h Aug, Aug, 14 days Active RESULTS No Results PROCEDURES No Known procedures IMMUNIZATIONS No Known Immunizations
--- OUTSIDE RECORDS SUMMARY | 2018-09-02 18:28 | XMS REPORT ---
Author Author AMARI HOWARD [facility] Address [address] [place] [address] Care Team Providers Care Cashier Office Name Role Phone AMARI HOWARD Unavailable PROBLEMS Type Condition ICD9-CM Code [id number] Code Onset Dates Condition Status SNOMED Code Problem Murmur R01.1 Active 833440000 Problem Shortness of breath R06.02 Active 378082458 Problem Tachycardia R00.0 Active 6155992 Problem Depressive disorder, not elsewhere classified F32.9 Active 19356271 Problem Acquired hypothyroidism E03.9 Active 507916179 Problem Panic disorder without agoraphobia F41.0 Active 13406049 Problem Panic disorder with agoraphobia F40.01 Active 29321264 Problem Undifferentiated schizophrenia F20.3 Active 964534375 Problem Panic disorder F41.0 Active 579252893 Problem Chronic posttraumatic stress disorder F43.12 Active 831048984 Problem Fatty liver K76.0 Active 141416842 Problem Obesity E66.9 Active 326662896 Problem Sleep apnea in adult G47.33 Active 45213804 Problem Abuse, drug or alcohol F19.10 Active 97889978 Problem Neuropathy G62.9 Active 610494849 Problem Encounter for therapeutic drug level monitoring Z51.81 Active 384765779 Problem Social phobia F40.10 Active 00434858 Problem Orthostatic hypertension I10 Active 58788787 Problem Restless legs syndrome G25.81 Active 961840506 Problem Tunnel vision, unspecified laterality H53.489 Active 765235969 ALLERGIES No Information SOCIAL HISTORY Never Assessed PLAN OF CARE Activity Details Follow Up 4 Weeks Reason: VITAL SIGNS MEDICATIONS Unknown Medications RESULTS No Results PROCEDURES Procedure Date Ordered Result Body Site ARISTADA 662 MG/2.5 ML (SAMPLE) September 19, 2016 THER/PROPH/DIAG INJ, SC/IM September 19, 2016 IMMUNIZATIONS Vaccine Route Administration Date Status ARISTADA 662 MG/2.5 ML (SAMPLE) IM Intramuscular September 19, 2016 Administered MEDICAL (GENERAL) HISTORY Type Description [...]
--- OUTSIDE RECORDS SUMMARY | 2018-09-02 18:29 | XMS REPORT ---
Author Author JOSE LARRY Organization [facility] Address [address] [place] [address] Care Team Providers [employer] Front Desk Attendant Name Role Phone JOSE LARRY Unavailable PROBLEMS Type Condition ICD9-CM Code [id number] Code Onset Dates Condition Status SNOMED Code Problem Shortness of breath R06.02 Active 430098519 Problem Panic disorder with agoraphobia F40.01 Active 74183060 Problem Undifferentiated schizophrenia F20.3 Active 579417754 Problem Hypothyroid E03.9 Active 65145989 Problem Abuse, drug or alcohol F19.10 Active 25506235 Problem BMI 50.0-59.9, adult Z68.43 Active 011184179 Problem Sleep apnea in adult G47.33 Active 71597165 Problem Depressive disorder, not elsewhere classified F32.9 Active 07485505 Problem Chronic posttraumatic stress disorder F43.12 Active 114653253 Problem Panic disorder without agoraphobia F41.0 Active 16154216 Problem Panic disorder F41.0 Active 196892324 Problem Neuropathy G62.9 Active 087697917 Problem Social phobia F40.10 Active 31040446 Problem Fatty liver K76.0 Active 255784671 Problem Obesity E66.9 Active 712574052 Problem Orthostatic hypertension I10 Active 71492425 Problem Tunnel vision, unspecified laterality H53.489 Active 624821351 Problem Restless legs syndrome G25.81 Active 798818331 Problem Tachycardia R00.0 Active 9041476 Problem Encounter for therapeutic drug level monitoring Z51.81 Active 260281436 Problem Murmur R01.1 Active 868397960 ALLERGIES No Information ENCOUNTERS Encounter Location Date Diagnosis [facility] [address] [facility] [id number] [address] Dec, [facility] [id number] [address] October, [facility] [address] [address] 3[address] Aug, Undifferentiated schizophrenia F20.3 [facility] [id number] [place] [address] 83432- 3106 Aug, [facility] [id number] [place] [address] 10397- 4638 Aug, Undifferentiated schizophrenia F20.3 ; Panic disorder with agoraphobia F40.01 ; Chronic posttraumatic stress disorder F43.12 and BMI 50.0- 59.9, adult Z68.43 [facility] [id number] [place] [address] 22608- 7642 05 Aug, 2017 [facility] [id number] [place] [address] 16885- 9027 Aug, [facility] [id number] [place] [address] 18033- 6228 Aug, Undifferentiated schizophrenia F20.3 [facility] [id number] [place] [address] 43777- 5011 Aug, Hypothyroid E03.9 [facility] [id number] [place] [address] 28773- 4163 Jul, Undifferentiated schizophrenia F20.3 [facility] [id number] [place] [address] 98329- 4568 Jul, [facility] [id number] [place] [address] 38951- 7689 Jul, Undifferentiated schizophrenia F20.3 ; Chronic posttraumatic stress disorder F43.12 ; Panic disorder with agoraphobia F40.01 and BMI 50.0-59.9, adult Z68.43 [facility] [address] [address] 9212 15 Jul, 2017 [facility] [address] [address] 3791 08 Ifeanyi, 2018 Acute pain of right shoulder M25.511 ; High risk medication use Z79.899 ; Needle stick injury W27.3XXA ; Hypothyroid E03.9 and BMI 50.0-59.9 , adult Z68.43 [facility] [id number] [place] [address] 77261- 3735 Jun, Undifferentiated schizophrenia F20.3 [facility] [address] 65572- 5534 Jun, Undifferentiated schizophrenia F20.3 ; Panic disorder without agoraphobia F41.0 ; Chronic posttraumatic stress disorder F43.12 and BMI 50.0-59.9, adult Z68.43 [facility] [address] 44494- 8940 May, [facility] [address] 84825- 1128 May, [facility] [address] 29481- 8259 May, Undifferentiated schizophrenia F20.3 [facility] [id number] [place] [address] 04802- 8489 May, [facility] [address] 64402- 2684 May, [facility] [id number] [place] [address] 25996- 3036 May, Hypothyroid E03.9 [facility] [address] 44331- 6852 May, [facility] [id number] [place] [address] 62734- 1487 May, [facility] [id number] [place] [address] 26491- 3475 07 May, 2017 Chronic posttraumatic stress disorder F43.12 ; Panic disorder with agoraphobia F40.01 ; Undifferentiated schizophrenia F20.3 ; BMI 40.0-44.9, adult Z68.41 and Obesity E66.9 [facility] [id number] [place] [address] 22490- 0670 07 May, 2017 Shortness of breath R06.02 [facility] [id number] [place] [address] 00741- 1585 02 May, 2017 [facility] [id number] [place] [address] 12742- 7699 Apr, Undifferentiated schizophrenia F20.3 [facility] [id number] [place] [address] 05931- 7292 Apr, [facility] [id number] [place] [address] 97390- 9441 Apr, [facility] [id number] [place] [address] 21639- 1840 Mar, Undifferentiated schizophrenia F20.3 ; Panic disorder without agoraphobia F41.0 and Chronic posttraumatic stress disorder F43.12 [facility] [id number] [place] [address] 99227- 3047 Mar, Undifferentiated schizophrenia F20.3 [facility] [id number] [place] [address] 53073- 0910 18 Mar, 2017 [facility] [id number] [place] [address] 74221- 2269 08 Mar, 2017 [facility] [id number] [place] [address] 70997- 1322 07 Mar, 2017 [facility] [id number] [place] [address] 44039- 8918 Jan, Undifferentiated schizophrenia F20.3 [facility] [id number] [place] [address] 24462- 3396 Jan, [facility] [id number] [place] [address] 04434- 2478 Jan, [facility] [id number] [place] [address] 56153- 1234 Jan, [facility] [place] [id number] [facility] [id number] [id number] Dec, Needle stick injury W27.3XXA [facility] [address] [address]- 5761 Dec, Needle stick injury W27.3XXA [facility] [address] [place] [address] 65371- 5815 Dec, Undifferentiated schizophrenia F20.3 [facility] [address] [place] [address] 94575- 7094 Dec, [facility] [id number] [place] [address] 68012- 5477 Dec, [facility] [id number] [place] [address] 75592- 8587 Dec, Undifferentiated schizophrenia F20.3 ; Panic disorder with agoraphobia F40.01 and Chronic posttraumatic stress disorder F43.12 [facility] [address] [address]- 4385 Dec, [facility] [id number] [place] [address] 34469- 2702 October, [facility] [address] [place] [address] 55125- 7098 October, Undifferentiated schizophrenia F20.3 [facility] [address] [address]- 8988 October, [facility] [address] [address]- 4123 October, [facility] [id number] [place] [address] 24606- 3299 Oct, Undifferentiated schizophrenia F20.3 ; Panic disorder with agoraphobia F40.01 ; Chronic posttraumatic stress disorder F43.12 and Obesity E66.9 [facility] [address] [place] [address] 92798- 6140 Oct, [facility] [address] [address]- 5810 Oct, [facility] [address] [place] [address] 91815- 8695 Aug, Undifferentiated schizophrenia F20.3 [facility] [address] [place] [address] 28077- 6382 Aug, [facility] [id number] [place] [address] 55247- 5409 Aug, Muscle spasm M62.838 [facility] [id number] [place] [address] 30534- 4534 Aug, Undifferentiated schizophrenia F20.3 [facility] [address] [place] [address] 93454- 7056 Aug, Undifferentiated schizophrenia F20.3 ; Panic disorder with agoraphobia F40.01 ; Chronic posttraumatic stress disorder F43.12 ; High risk medication use Z79.899 and Social phobia F40.10 [facility] [address] [place] [address] 55043- 4813 Aug, Undifferentiated schizophrenia F20.3 [facility] [address] [address]- 1825 Aug, [facility] [address] [place] [address] 02109- 2880 Aug, Acute non-recurrent maxillary sinusitis J01.00 [facility] [address] [address]- 1699 Aug, [facility] [id number] [place] [address] 33495- 5145 Aug, [facility] [address] [place] [address] 79286- 9258 Jul, Undifferentiated schizophrenia F20.3 [facility] [id number] [place] [address] 06178- 8663 18 Jul, 2016 Schizophrenia, undifferentiated F20.3 ; Social phobia F40.10 ; Post-traumatic stress disorder F43.10 ; Panic disorder F41.0 and Depressive disorder, not elsewhere classified F32.9 [facility] [id number] [place] [address] 75347- 0266 Jul, [facility] [address] 20228- 4444 Jul, Schizophrenia, undifferentiated F20.3 ; Social phobia F40.10 ; Post-traumatic stress disorder F43.10 ; Panic disorder F41.0 and Depressive disorder, not elsewhere classified F32.9 [facility] [id number] [place] [address] 05964- 0687 Jul, [facility] [id number] [place] [address] 84827- 0450 Jul, Undifferentiated schizophrenia F20.3 ; Panic disorder with agoraphobia F40.01 ; Social phobia F40.10 ; Obesity E66.9 and Chronic posttraumatic stress disorder F43.12 [facility] [id number] [place] [address] 45797- 3270 Jun, [facility] [id number] [place] [address] 64852- 6026 Jun, [facility] [id number] [place] [address] 46379- 5590 Jun, Dental caries K02.9 [facility] [id number] [place] [address] 30510- 0748 Jun, Undifferentiated schizophrenia F20.3 [facility] [id number] [place] [address] 35036- 4068 May, [facility] [id number] [place] [address] 52256- 6649 May, Undifferentiated schizophrenia F20.3 ; Panic disorder with agoraphobia F40.01 and Chronic post-traumatic stress disorder (PTSD) F43.12 [facility] [id number] [place] [address] 15726- 0098 May, [facility] [id number] [place] [address] 38350- 0176 May, Undifferentiated schizophrenia F20.3 [facility] [address] 54692- 7464 May, [facility] [address] 81007- 8150 May, Dental examination Z01.20 [facility] [address] 74650- 7296 Apr, Undifferentiated schizophrenia F20.3 ; PTSD (post-traumatic stress disorder) F43.10 and Obesity E66.9 [facility] [address] 54799- 8750 Apr, [facility] [id number] [place] [address] 23121- 0646 Mar, [facility] [address] 67139- 0249 Mar, [facility] [id number] [place] [address] 21589- 1267 Jan, Shortness of breath R06.02 and Bipolar disorder with psychotic features F31.9 [facility] [id number] [place] [address] 46704- 2051 Jan, [facility] [id number] [place] [address] 66263- 7140 Jan, Increased intracranial pressure G93.2 ; Visual disturbance H53.9 and Bipolar II disorder F31.81 [facility] [id number] [place] [address] 08184- 0486 Jan, [facility] [address] 12862- 7672 Jan, [place] [id number] [place] [address] 05625- 9101 Jan, [place] [address] 35439- 0006 Jan, Acquired hypothyroidism E03.9 ; Depression F32.9 and Insomnia G47.[address] 91816- 5386 Jan, Exertional dyspnea R06.09 ; Heart palpitations R00.2 ; Hyperlipidemia, unspecified hyperlipidemia type E78.5 ; Hypothyroidism, unspecified type E03.9 and Hypokalemia E87.6 [place] [address] 99344- 1944 Dec, PTSD (post-traumatic stress disorder) F43.10 ; Depression F32.9 ; Insomnia G47.00 and Bipolar disorder with psychotic features F31.9 [place] [address] 19489- 2714 Dec, Increased intracranial pressure G93.2 [place] [address] 22363- 1064 Dec, [facility] [id number] [place] [address] 20866- 6424 Dec, Shortness of breath R06.02 [facility] [id number] [place] [address] 16579- 1997 Dec, Visual disturbance H53.9 and Headache, unspecified headache type R51 [place] [id number] [place] [address] 27493- 5407 Dec, Insomnia G47.00 [place] [address] 51801- 1843 Dec, Murmur R01.1 [place] [id number] [place] [address] 33954- 6450 Dec, Murmur R01.1 ; Tunnel vision, unspecified laterality H53.489 ; Orthostatic hypertension I10 ; Shortness of breath R06.02 and Tachycardia R00.0 [place] [address] 22822- 4811 Dec, [place] [address] 54377- 6459 Dec, Hypothyroid E03.9 and Bipolar 1 disorder F31.9 [place] [address] 25154- 1365 Dec, Bipolar 1 disorder F31.9 [place] [address] 37808- 0200 Dec, [place] [address] 14637- 6778 October, Acquired hypothyroidism E03.9 ; Depression F32.9 and Insomnia G47.00 [place] [address] 02833- 8126 October, [place] [address] 55412- 1348 October, Bipolar 1 disorder F31.9 ; PTSD (post-traumatic stress disorder) F43.10 and Social phobia F40.10 [place] [id number] [place] [address] 25312- 3378 Oct, Bipolar 1 disorder F31.9 and Insomnia G47.00 [place] [id number] [place] [address] 26859- 0310 Oct, [place] [address] 93596- 9425 Oct, [place] [address] 41834- 9870 Aug, Hypothyroid E03.9 [place] [address] 68729- 9755 Aug, Encounter for therapeutic drug level monitoring Z51.81 and Other mcc (current) drug therapy Z79.899 [facility] [address] 89221- 0111 Aug, Encounter for therapeutic drug level monitoring Z51.81 [facility] [id number] [place] [address] 67832- 0292 Aug, Acquired hypothyroidism E03.9 ; Leg pain M79.606 and Bipolar 1 disorder F31.9 [facility] [address] 83120- 2552 Aug, [facility] [address] 25362- 3831 Aug, [facility] [address] 80978- 7322 Jul, Thyroid disorder E07.9 [facility] [address] 26321- 6953 Jul, Rash R21 ; Abnormal LFTs R94.5 ; Acquired hypothyroidism E03.9 ; Sleep apnea in adult G47.33 and Fatty liver K76.0 [facility] [id number] [place] [address] 23372- 9690 Jun, [facility] [id number] [place] [address] 34667- 1000 Jun, [facility] [address] 21354- 2135 Jun, Bipolar II disorder F31.81 and Social phobia, generalized F40.11 [facility] [address] 54118- 5822 Mar, Bipolar II disorder 296.89 and Social phobia 300.23 [facility] [id number] [place] [address] 21636- 7841 Dec, [facility] [address] 73853- 0237 Dec, [facility] [address] 0012 Dec, Bipolar II disorder in partial or unspecified remission 296.89 and Social phobia, generalized 300.23 [facility] [address] [address]- 4380 30 Oct, 2014 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 [facility] [address] 4204 Oct, [facility] [address] [address]- 3570 Oct, [facility] [address]- 7608 Aug, [facility] [address] [address]- 7228 Aug, [facility] [address] [address]- 3071 Aug, [facility] [address] [address]- 3027 Aug, [facility] [address] [address]- 7270 Aug, [facility] [address]- 9649 Aug, [facility] [address] [address]- 0949 Aug, [facility] [id number] [address]- 2069 Aug, [facility] [address] [address]- 1381 Jul, [facility] [id number] 6295 Jul, [facility] [id number] [place] [address]- 3871 Jul, [facility] [address] [id number] [place] [address]- 3430 Jul, [facility] [address] [id number] [place] [address]- 6258 Jul, [facility] [address] [id number] [place] [address]- 4920 Jul, [facility] [address] [id number] [place] [address]- 5245 Jun, [facility] [address] [id number] [place] 9596 Jun, [facility] [address] [id number] [place] [address]- 2017 Jun, [facility] [address] [id number] [place] [address]- 4299 Jun, [facility] [address] [id number] [place] [address]- 1940 Jun, [facility] [address] [id number] [place] [address]- 0867 Jun, [facility] [address] [id number] [place] [address]- 0985 Jun, [facility] [place] [place] [facility] [address] [id number] [place] [address]- 4637 Jun, [facility] [address] [id number] [place] [address]- 7578 Jun, [facility] [place] [facility] [address] [id number] [place] [address]- 2471 Jun, [facility] [place] [facility] [address] [id number] [place] [address]- 1583 Jun, [facility] [place] [place] [facility] [address] [id number] [place] [address]- 3868 Jun, [facility] [place] [facility] [address] [id number] [place] [address]- 4020 Jun, [facility] [place] [facility] [address] [id number] [place] [address]- 7504 Jun, [facility] [place] [facility] [address] [id number] [place] [address]- 9864 Jun, [facility] [place] [facility] [address] [id number] [place] [address]- 8914 Jun, [facility] [place] [facility] [address] [id number] [place] 4601 May, [facility] [place] [facility] [address] [id number] [place] [address]- 3672 May, [facility] [place] [facility] [address] [id number] [place] [address]- 7827 May, [facility] [place] [facility] [address] [id number] [place] [address]- 4008 May, [facility] [place] [facility] [address] [id number] [place] [address]- 0605 May, [facility] [place] [facility] [address] [id number] [place] [address]- 3811 May, [facility] [place] [facility] [address] [id number] [address]- 7948 Apr, [facility] [place] [facility] [address] [id number] [address] Apr, [facility] [place] [facility] [address] [id number] [place] [address] Apr, [facility] [place] [facility] [address] [id number] [place] [address] Apr, [facility] [place] [facility] [address] [id number] [place] [address] Apr, [facility] [place] [facility] [address] [id number] [place] [address] Apr, [facility] [place] [facility] [address] [id number] [place] [address] Mar, [facility] [place] [facility] [address] [id number] [place] [address] Mar, [facility] [place] [facility] [address] [id number] [place] [address] Mar, [facility] [place] [facility] [address] [id number] [place] [address] Mar, [facility] [place] [facility] [address] [id number] [place] [address] Jan, [facility] [place] [facility] [address] [id number] [place] [address] Jan, [facility] [place] [facility] [address] [id number] [place] [address] Jan, [facility] [place] [facility] [address] [id number] [place] [address] Jan, [facility] [place] [facility] [address] [id number] [place] [address] Jan, [facility] [place] [facility] [address] [id number] [place] [address] Jan, [facility] [place] [facility] [address] [id number] [place] [address] Dec, [facility] [place] [facility] [address] [id number] [place] [address] Dec, [facility] [place] [facility] [address] [id number] [place] [address] Dec, [facility] [place] [facility] [address] [id number] [place] [address] Dec, [facility] [place] [facility] [address] [id number] [place] [address] Dec, [facility] [place] [facility] [address] [id number] [place] [address]- [address] Dec, [facility] [place] [facility] [address] [id number] [place] [address] October, [facility] [place] [facility] [address] [id number] [place] [address] October, [facility] [place] [facility] [address] [id number] [place] [address] October, [facility] [place] [facility] [address] [id number] [place] [address] October, [facility] [place] [facility] [address] [id number] [place] [address] October, [facility] [place] [facility] [address] [id number] [place] [address] October, [facility] [place] [facility] [address] [id number] [place] [address] October, [facility] [place] [facility] [address] [id number] [place] [address] October, [facility] [place] [facility] [address] [id number] [place] [address] Oct, [facility] [place] [facility] [address] [id number] [place] [address] Oct, [facility] [place] [facility] [address] [id number] [place] [address] Oct, [facility] [place] [facility] [address] [id number] [place] [address] Oct, [facility] [place] [facility] [address] [id number] [place] [address] Oct, [facility] [place] [facility] [address] [id number] [place] [address] Aug, [facility] [place] [facility] [address] [id number] [place] [address] Aug, [facility] [address] [id number] [place] [address] Aug, [facility] [place] [facility] [address] [id number] [place] [address] Aug, [facility] [place] [facility] [address] [id number] [place] [address] Aug, [facility] [place] [facility] [address] [id number] [place] [address] Aug, [facility] [place] [facility] [address] [id number] [place] [address] Jul, [facility] [place] [facility] [address] [id number] [place] [address] Jul, [facility] [place] [facility] [address] [id number] [place] [address] Jul, [facility] [place] [facility] [address] [id number] [place] [address] Jul, [facility] [place] [facility] [address] [id number] [place] [address] Jul, [facility] [place] [facility] [address] [id number] [place] [address] Jul, [facility] [place] [facility] [address] [id number] [address] Jun, [facility] [place] [facility] [address] [id number] [address] Jun, [facility] [place] [facility] [address] [id number] [place] [address] 39[address] Jun, [facility] [place] [facility] [address] [id number] [place] [address]698 Jun, [facility] [place] [facility] [address] [id number] [place] [address] Jun, [facility] [place] [facility] [address] [id number] [place] [address] Jun, [facility] [address] [id number] [place] [address] May, [facility] [place] [facility] [address] [id number] [place] [address] May, [facility] [address] [id number] [place] [address] Apr, [facility] [place] [facility] [address] [id number] [place] [address] 79[address] Apr, [facility] [address] [id number] [place] [address] Apr, [facility] [place] [facility] [address] [id number] [place] [address] Apr, [facility] [place] [facility] [address] [id number] [place] [address] 49[address] Apr, [facility] [address] [id number] [place] [address] Apr, [facility] [place] [facility] [address] [id number] [place] [address] 48[address] Apr, [facility] [address] [id number] [place] [address] 115[address] Apr, [facility] [place] [facility] [address] [id number] [place] [address] Apr, [facility] [place] [facility] [address] [id number] [place] [address] Apr, [facility] [place] [facility] [address] [id number] [place] [address] 140[address] Apr, [facility] [place] [facility] [address] [id number] [place] [address] Mar, [facility] [place] [facility] [address] [id number] [place] [address] 20 Mar, 2013 [facility] [place] [facility] [address] [id number] [place] [address] 20 Mar, 2012 [facility] [place] [facility] [address] [id number] [place] [address]- [address] 14 Mar, 2013 [facility] [place] [facility] [address] [id number] [place] [address] 12 Mar, 2012 [facility] [place] [facility] [address] [id number] [place] [address] Mar, 2012 [facility] [place] [facility] [address] [id number] [place] [address] Mar, [facility] [place] [facility] [address] [id number] [place] [address] Jan, [facility] [place] [facility] [address] [id number] [place] [address] Jan, [facility] [place] [facility] [address] [id number] [place] [address]- [address] Jan, [facility] [place] [facility] [address] [id number] [place] [address]- [address]776 Jan, [facility] [place] [facility] [address] [id number] [place] [address] 13[address] Jan, [facility] [place] [facility] [address] [id number] [place] [address] 69[address] Jan, [facility] [place] [facility] [address] [id number] [place] [address]- [address] Jan, [facility] [place] [facility] [address] [id number] [place] [address]385 Dec, [facility] [place] [facility] [address] [id number] [place] [address] 8547 Dec, [facility] [place] [facility] [address] [id number] [place] [address]- 7717 Dec, [facility] [place] [facility] [address] [id number] [place] [address] 3467 Dec, [facility] [address] [id number] [place] [address] Dec, [facility] [address] [id number] [place] [address]- 7023 Dec, [facility] [address] [id number] [place] [address] 6[address] October, [facility] [address] [id number] [place] [address]- 4[address] October, [facility] [address] [id number] [place] [address]- 2476 October, [facility] [address] [id number] [place] [address]- 98[address] October, [facility] [address] [id number] [place] [address]- 2014 Oct, [facility] [address] [id number] [place] [address]- 2812 Oct, [facility] [address] [id number] [place] [address]- 3[address] Aug, [facility] [address] [id number] [place] [address]- 5359 Aug, [facility] [address] [id number] [place] [address]- 6272 Aug, [facility] [address] [id number] [place] [address]- 3770 Aug, [facility] [address] [id number] [place] [address]- 8460 18 Aug, 2012 [facility] [address] [id number] [place] [address]- 0485 Aug, [facility] [address] [id number] [place] [address]- 9869 Aug, [facility] [address] [id number] [place] [address] 2546 Aug, [facility] [place] [facility] [address] [id number] [place] [address] 2546 Aug, [facility] [place] [facility] [address] [id number] [place] [address] 2546 Aug, [facility] [place] [facility] [address] [id number] [place] [address] 2546 Aug, [facility] [place] [facility] [address] [id number] [place] [address] 2546 Aug, [facility] [place] [facility] [address] [id number] [place] [address] 2546 Aug, [facility] [place] [facility] [address] [id number] [place] [address] 2546 Aug, [facility] [place] [facility] [address] [id number] [place] [address]- [address]109 Jul, [facility] [place] [facility] [address] [id number] [place] [address] 2549 Jul, [facility] [place] [facility] [address] [id number] [place] [address] 2543 Jul, [facility] [place] [place] [facility] [address] [id number] [place] [address] 2543 Jul, [facility] [place] [place] [facility] [address] [id number] [place] [address] 2546 Jun, [facility] [place] [facility] [address] [id number] [place] [address] 2546 Jun, [facility] [place] [facility] [address] [id number] [place] [address] 2546 Jun, [facility] [place] [facility] [address] [id number] [place] [address] 2546 Jun, [facility] [place] [facility] [address] [id number] [place] [address] May, [facility] [address] [facility] [id number] [place] [address]- [address] May, IMMUNIZATIONS No Known Immunizations SOCIAL HISTORY Never Assessed REASON FOR VISIT labs [facility] PLAN OF CARE VITAL SIGNS MEDICATIONS Unknown Medications RESULTS No Results PROCEDURES Procedure Date Ordered Result Body Site ROUTINE VENIPUNCTURE 2017-01-19 N/A HEPATITIS B SURFACE AG, EIA January 19, 2017 HEPATITIS C AB TEST January 19, 2017 HIV-1 AG W/HIV-1 & HIV-2 AB January 19, 2017 INSTRUCTIONS MEDICATIONS ADMINISTERED No Known Medications [...]
--- OUTSIDE RECORDS SUMMARY | 2018-09-02 18:30 | XMS REPORT ---
Author Author AMARI HOWARD Organization [facility] Address [address] [place] [address] Care Team Providers Care Vp Care Management Name Role Phone AMARI HOWARD Unavailable PROBLEMS Type Condition ICD9-CM Code [id number] Code Onset Dates Condition Status SNOMED Code Problem Murmur R01.1 Active 753674712 Problem Shortness of breath R06.02 Active 974206961 Problem Tachycardia R00.0 Active 3760359 Problem Depressive disorder, not elsewhere classified F32.9 Active 62655216 Problem Acquired hypothyroidism E03.9 Active 982311084 Problem Panic disorder without agoraphobia F41.0 Active 10695892 Problem Panic disorder with agoraphobia F40.01 Active 67810719 Problem Undifferentiated schizophrenia F20.3 Active 037351025 Problem Panic disorder F41.0 Active 556329465 Problem Chronic posttraumatic stress disorder F43.12 Active 854222706 Problem Fatty liver K76.0 Active 464653412 Problem Obesity E66.9 Active 250401768 Problem Sleep apnea in adult G47.33 Active 34033626 Problem Abuse, drug or alcohol F19.10 Active 05570558 Problem Neuropathy G62.9 Active 822974618 Problem Encounter for therapeutic drug level monitoring Z51.81 Active 742387002 Problem Social phobia F40.10 Active 72532362 Problem Orthostatic hypertension I10 Active 60966092 Problem Restless legs syndrome G25.81 Active 427666903 Problem Tunnel vision, unspecified laterality H53.489 Active 853732973 ALLERGIES Unknown Allergies SOCIAL HISTORY No smoking Hx information available PLAN OF CARE VITAL SIGNS MEDICATIONS Unknown Medications RESULTS No Results PROCEDURES No Known procedures IMMUNIZATIONS No Known Immunizations
--- OUTSIDE RECORDS SUMMARY | 2018-09-02 18:30 | XMS REPORT ---
Author Author JOSE LARRY [facility] Address [address] [place] [address] Care Team Providers Care Actuarial Internship Name Role Phone JOSE LARRY Unavailable PROBLEMS Type Condition ICD9-CM Code [id number] Code Onset Dates Condition Status SNOMED Code Problem Orthostatic hypertension I10 Active 12751732 Problem Murmur R01.1 Active 686940578 Problem Tunnel vision, unspecified laterality H53.489 Active 911122910 Problem Panic disorder without agoraphobia F41.0 Active 93412305 Problem Acquired hypothyroidism E03.9 Active 875645000 Problem Panic disorder F41.0 Active 282177498 Problem Panic disorder with agoraphobia F40.01 Active 40500345 Problem Undifferentiated schizophrenia F20.3 Active 303337809 Problem Depressive disorder, not elsewhere classified F32.9 Active 50390911 Problem Chronic posttraumatic stress disorder F43.12 Active 866118275 Problem Abuse, drug or alcohol F19.10 Active 09726612 Problem Social phobia F40.10 Active 13882667 Problem Sleep apnea in adult G47.33 Active 72525530 Problem Fatty liver K76.0 Active 674633391 Problem Restless legs syndrome G25.81 Active 371272514 Problem Encounter for therapeutic drug level monitoring Z51.81 Active 069383290 Problem Obesity E66.9 Active 382627309 Problem Tachycardia R00.0 Active 3434470 Problem Neuropathy G62.9 Active 303665721 Problem Shortness of breath R06.02 Active 204190625 ALLERGIES Unknown Allergies SOCIAL HISTORY No smoking Hx information available PLAN OF CARE VITAL SIGNS MEDICATIONS Unknown Medications RESULTS No Results PROCEDURES No Known procedures IMMUNIZATIONS No Known Immunizations
--- OUTSIDE RECORDS SUMMARY | 2018-09-02 18:30 | XMS REPORT ---
Author Author JOSE LARRY [facility] Address [address] [place] [address] Care Team Providers Care Monotype Mechanic Name Role Phone JOSE LARRY Unavailable PROBLEMS Type Condition ICD9-CM Code MQB69-CL Code Onset Dates Condition Status SNOMED Code Problem Murmur R01.1 Active 997244972 Problem Shortness of breath R06.02 Active 711261290 Problem Tachycardia R00.0 Active 6409784 Problem Depressive disorder, not elsewhere classified F32.9 Active 48456571 Problem Acquired hypothyroidism E03.9 Active 167705308 Problem Panic disorder without agoraphobia F41.0 Active 21174677 Problem Panic disorder with agoraphobia F40.01 Active 72845956 Problem Undifferentiated schizophrenia F20.3 Active 577381021 Problem Panic disorder F41.0 Active 277088072 Problem Chronic posttraumatic stress disorder F43.12 Active 769474591 Problem Fatty liver K76.0 Active 931864644 Problem Obesity E66.9 Active 446419020 Problem Sleep apnea in adult G47.33 Active 55889978 Problem Abuse, drug or alcohol F19.10 Active 38746373 Problem Neuropathy G62.9 Active 976539243 Problem Encounter for therapeutic drug level monitoring Z51.81 Active 876076479 Problem Social phobia F40.10 Active 55661205 Problem Orthostatic hypertension I10 Active 22080872 Problem Restless legs syndrome G25.81 Active 105627787 Problem Tunnel vision, unspecified laterality H53.489 Active 260648438 ALLERGIES No Information SOCIAL HISTORY Never Assessed [...]
--- OUTSIDE RECORDS SUMMARY | 2018-09-02 18:31 | XMS REPORT ---
Author Author AMARI HOWARD [facility] [place] Address [address] [place] [address] Care Team Providers Care Barrel Finisher Name Role Phone AMARI HOWARD Unavailable PROBLEMS Type Condition ICD9-CM Code [id number] Code Onset Dates Condition Status SNOMED Code Problem Undifferentiated schizophrenia F20.3 Active 399009100 Problem Chronic posttraumatic stress disorder F43.12 Active 328604145 Problem Panic disorder with agoraphobia F40.01 Active 76646651 Problem Other chronic pain G89.29 Active 97093012 Problem Fatty liver K76.0 Active 436906954 Problem Hypothyroid E03.9 Active 29684610 Problem Abuse, drug or alcohol F19.10 Active 37259906 Problem Sleep apnea in adult G47.33 Active 51621800 Problem Panic disorder F41.0 Active 263775930 Problem Depressive disorder, not elsewhere classified F32.9 Active 22603595 Problem BMI 50.0-59.9, adult Z68.43 Active 470115267 Problem Panic disorder without agoraphobia F41.0 Active 28207328 Problem Social phobia F40.10 Active 16507127 Problem Restless legs syndrome G25.81 Active 578276408 Problem Obesity E66.9 Active 171824799 Problem Neuropathy G62.9 Active 765682718 Problem Tunnel vision, unspecified laterality H53.489 Active 878687237 Problem Tachycardia R00.0 Active 2354622 Problem Encounter for therapeutic drug level monitoring Z51.81 Active 824995207 Problem Murmur R01.1 Active 617475520 Problem Orthostatic hypertension I10 Active 53817899 Problem Shortness of breath R06.02 Active [id number] ALLERGIES No Information ENCOUNTERS Encounter Location Date Diagnosis [facility] [place] [address] [facility] [id number] [address] Dec, [facility] [place] [address] [facility] [id number] [place] [address] 75709- 9544 14 Dec, 2017 [facility] [place] [id number] [address] Dec, [facility] [place] [id number] [place] [address] 05158- 4033 October, [facility] [place] [id number] [place] [address] 69143- 8603 October, Pain in right shoulder M25.511 and Other chronic pain G89.29 [facility] [place] [id number] [place] [address] 32754- 6805 October, Hypothyroid E03.9 [facility] [place] [id number] [place] [address] 73635- 2745 Oct, Undifferentiated schizophrenia F20.3 [facility] [place] [id number] [place] [address] 96283- 1684 Oct, [facility] [place] [id number] [place] [address] 50843- 4491 Oct, [facility] [place] [id number] [place] [address] 14589- 8040 Aug, Undifferentiated schizophrenia F20.3 [facility] [place] [id number] [place] [address] 88158- 7675 Aug, [facility] [place] [id number] [place] [address] 71535- 5459 Aug, Undifferentiated schizophrenia F20.3 ; Panic disorder with agoraphobia F40.01 ; Chronic posttraumatic stress disorder F43.12 and BMI 50.0- 59.9, adult Z68.43 [facility] [place] [id number] [place] [address] 02639- 3348 05 Aug, 2017 [facility] [place] [id number] [place] [address] 54916- 4400 Aug, [facility] [place] [id number] [place] [address] 47818- 3535 Aug, Undifferentiated schizophrenia F20.3 [facility] [place] [address] [address] 1731 Aug, Hypothyroid E03.9 [facility] [place] [id number] [place] [address] 82694- 9107 Jul, Undifferentiated schizophrenia F20.3 [facility] [place] [id number] [place] [address] 17626- 3503 Jul, [facility] [place] [id number] [place] [address] 68507- 9520 Jul, Undifferentiated schizophrenia F20.3 ; Chronic posttraumatic stress disorder F43.12 ; Panic disorder with agoraphobia F40.01 and BMI 50.0-59.9, adult Z68.43 [place] [id number] [place] [address] 37233- 6121 Jul, [facility] [place] [id number] [place] [address] 50265- 2948 Jul, Acute pain of right shoulder M25.511 ; High risk medication use Z79.899 ; Needle stick injury W27.3XXA ; Hypothyroid E03.9 and BMI 50.0-59.9 , adult Z68.43 [facility] [place] [id number] [place] [address] 27177- 7135 Jun, Undifferentiated schizophrenia F20.3 [facility] [place] [id number] [place] [address] 37880- 6435 14 Jun, 2017 Undifferentiated schizophrenia F20.3 ; Panic disorder without agoraphobia F41.0 ; Chronic posttraumatic stress disorder F43.12 and BMI 50.0-59.9, adult Z68.43 [facility] [place] [id number] [place] [address] 24825- 6354 May, [facility] [place] [id number] [place] [address] 10044- 2968 May, [facility] [place] [id number] [address]- 3454 May, Undifferentiated schizophrenia F20.3 [facility] [place] [id number] [place] [address] 78683- 8975 May, [facility] [place] [id number] [place] [address] 69364- 3410 May, [facility] [place] [id number] [place] [address] 34067- 7610 May, Hypothyroid E03.9 [facility] [place] [id number] [place] [address] 81535- 2667 May, [facility] [place] [id number] [place] [address] 14851- 9934 10 May, 2017 [facility] [place] [id number] [place] [address] 20584- 4395 May, Chronic posttraumatic stress disorder F43.12 ; Panic disorder with agoraphobia F40.01 ; Undifferentiated schizophrenia F20.3 ; BMI 40.0-44.9, adult Z68.41 and Obesity E66.9 [facility] [place] [id number] [place] [address] 71312- 2735 07 May, 2017 Shortness of breath R06.02 [facility] [place] [id number] [place] [address] 70125- 6527 May, [facility] [place] [id number] [place] [address] 34360- 8495 Apr, Undifferentiated schizophrenia F20.3 [facility] [place] [id number] [address]- 8360 Apr, [facility] [place] [id number] [place] [address] 02990- 8431 Apr, [facility] [place] [id number] [address]- 7469 Mar, Undifferentiated schizophrenia F20.3 ; Panic disorder without agoraphobia F41.0 and Chronic posttraumatic stress disorder F43.12 [facility] [place] [address] [facility] [id number] [address]- 7614 Mar, Undifferentiated schizophrenia F20.3 [facility] [place] [address] [facility] [id number] [place] [address] 16277- 9063 18 Mar, 2017 [facility] [place] [id number] [place] [address] 31478- 0710 Mar, [facility] [place] [id number] [place] [address] 56959- 7045 Mar, [facility] [place] [id number] [place] [address] 60084- 3864 Jan, Undifferentiated schizophrenia F20.3 [facility] [place] [id number] [place] [address] 37156- 8186 Jan, [facility] [place] [id number] [place] [address] 46226- 9405 Jan, [facility] [place] [id number] [place] [address] 66869- 4486 Jan, [address] [facility] [id number] [id number] Dec, Needle stick injury W27.3XXA [facility] [place] [id number] [place] [address] 82201- 0046 Dec, Needle stick injury W27.3XXA [facility] [place] [id number] [place] [address] 81714- 1898 Dec, Undifferentiated schizophrenia F20.3 [facility] [place] [id number] [place] [address] 77385- 6892 Dec, [facility] [place] [id number] [place] [address] 33595- 9972 Dec, [facility] [place] [id number] [place] [address] 15557- 4031 Dec, Undifferentiated schizophrenia F20.3 ; Panic disorder with agoraphobia F40.01 and Chronic posttraumatic stress disorder F43.12 [facility] [place] [id number] [address]- 2330 Dec, [facility] [place] [id number] [address]- 4826 October, [facility] [place] [id number] [address]- 8146 October, Undifferentiated schizophrenia F20.3 [facility] [place] [id number] [address]- 1686 October, [facility] [place] [id number] [place] [address] 39352- 6601 October, [facility] [place] [id number] [address]- 0666 Oct, Undifferentiated schizophrenia F20.3 ; Panic disorder with agoraphobia F40.01 ; Chronic posttraumatic stress disorder F43.12 and Obesity E66.9 [facility] [place] [address] [address]- 8450 Oct, [facility] [place] [id number] [address]- 3459 Oct, [facility] [place] [address] [address]- 5104 Aug, Undifferentiated schizophrenia F20.3 [facility] [place] [id number] [address]- 2696 Aug, [facility] [place] [address] [address]- 7700 Aug, Muscle spasm M62.838 [facility] [place] [id number] [address]- 2196 Aug, Undifferentiated schizophrenia F20.3 [facility] [place] [address] [address]- 5152 Aug, Undifferentiated schizophrenia F20.3 ; Panic disorder with agoraphobia F40.01 ; Chronic posttraumatic stress disorder F43.12 ; High risk medication use Z79.899 and Social phobia F40.10 [facility] [place] [id number] [place] [address] 78238- 2093 Aug, Undifferentiated schizophrenia F20.3 [facility] [place] [id number] [place] [address] 37701- 2114 Aug, [facility] [place] [id number] [place] [address] 77298- 2948 Aug, Acute non-recurrent maxillary sinusitis J01.00 [facility] [place] [id number] [place] [address] 49517- 1002 Aug, [facility] [place] [id number] [place] [address] 24986- 5703 Aug, [facility] [place] [id number] [place] [address] 58846- 5254 Jul, Undifferentiated schizophrenia F20.3 [facility] [place] [id number] [place] [address] 75066- 5501 Jul, Schizophrenia, undifferentiated F20.3 ; Social phobia F40.10 ; Post-traumatic stress disorder F43.10 ; Panic disorder F41.0 and Depressive disorder, not elsewhere classified F32.9 [facility] [place] [address] [address]- 9713 Jul, [facility] [place] [id number] [place] [address] 20808- 7124 Jul, Schizophrenia, undifferentiated F20.3 ; Social phobia F40.10 ; Post-traumatic stress disorder F43.10 ; Panic disorder F41.0 and Depressive disorder, not elsewhere classified F32.9 [facility] [place] [id number] [place] [address] 03302- 9873 Jul, [facility] [place] [id number] [place] [address] 99785- 6781 Jul, Undifferentiated schizophrenia F20.3 ; Panic disorder with agoraphobia F40.01 ; Social phobia F40.10 ; Obesity E66.9 and Chronic posttraumatic stress disorder F43.12 [facility] [place] [id number] [place] [address] 08957- 9613 Jun, [facility] [place] [id number] [place] [address] 00293- 8086 Jun, [facility] [place] [id number] [place] [address] 32493- 9287 Jun, Dental caries K02.9 [facility] [place] [id number] [place] [address] 43686- 4301 Jun, Undifferentiated schizophrenia F20.3 [facility] [place] [id number] [place] [address] 80007- 8188 30 May, 2016 [facility] [place] [id number] [place] [address] 48889- 8424 29 May, 2016 Undifferentiated schizophrenia F20.3 ; Panic disorder with agoraphobia F40.01 and Chronic post-traumatic stress disorder (PTSD) F43.12 [facility] [place] [id number] [place] [address] 87356- 2867 May, [facility] [place] [id number] [place] [address] 52137- 9939 May, Undifferentiated schizophrenia F20.3 [facility] [place] [id number] [place] [address] 68367- 4820 May, [facility] [place] [id number] [place] [address] 10812- 2896 07 May, 2016 Dental examination Z01.20 [facility] [place] [id number] [place] [address] 19055- 0486 Apr, Undifferentiated schizophrenia F20.3 ; PTSD (post-traumatic stress disorder) F43.10 and Obesity E66.9 [facility] [place] [id number] [place] [address] 52863- 9110 Apr, [place] [id number] [place] [address] 35284- 0312 Mar, [place] [address] 69580- 8512 Mar, [place] [id number] [place] [address] 14857- 2553 Jan, Shortness of breath R06.02 and Bipolar disorder with psychotic features F31.9 [place] [id number] [place] [address] 96266- 8623 Jan, [place] [id number] [place] [address] 19300- 9107 Jan, Increased intracranial pressure G93.2 ; Visual disturbance H53.9 and Bipolar II disorder F31.81 [place] [id number] [place] [address] 52556- 4291 Jan, [place] [id number] [place] [address] 29277- 4847 Jan, [place] [id number] [place] [address] 67286- 9422 Jan, [place] [id number] [place] [address] 55920- 0937 Jan, Acquired hypothyroidism E03.9 ; Depression F32.9 and Insomnia G47.00 [place] [id number] [place] [address] 03023- 4572 Jan, Exertional dyspnea R06.09 ; Heart palpitations R00.2 ; Hyperlipidemia, unspecified hyperlipidemia type E78.5 ; Hypothyroidism, unspecified type E03.9 and Hypokalemia E87.6 [place] [id number] [place] [address] 22059- 3704 Dec, PTSD (post-traumatic stress disorder) F43.10 ; Depression F32.9 ; Insomnia G47.00 and Bipolar disorder with psychotic features F31.9 [place] [id number] [place] [address] 60755- 6192 Dec, Increased intracranial pressure G93.2 [place] [id number] [place] [address] 19350- 0748 Dec, [place] [id number] [place] [address] 71421- 2925 Dec, Shortness of breath R06.02 [place] [address] 50894- 9335 05 Jan, 2016 Visual disturbance H53.9 and Headache, unspecified headache type R51 [place] [address] 51043- 7532 Dec, Insomnia G47.00 [place] [id number] [place] [address] 68833- 7203 Dec, Murmur R01.1 [place] [id number] [place] [address] 23905- 5715 Dec, Murmur R01.1 ; Tunnel vision, unspecified laterality H53.489 ; Orthostatic hypertension I10 ; Shortness of breath R06.02 and Tachycardia R00.0 [place] [id number] [place] [address] 78841- 5935 Dec, [place] [id number] [place] [address] 30662- 2388 Dec, Hypothyroid E03.9 and Bipolar 1 disorder F31.9 [place] [id number] [place] [address] 64155- 7266 Dec, Bipolar 1 disorder F31.9 [place] [id number] [place] [address] 02005- 9972 Dec, [place] [id number] [place] [address] 10642- 8900 October, Acquired hypothyroidism E03.9 ; Depression F32.9 and Insomnia G47.00 [place] [id number] [place] [address] 84836- 6942 October, [facility] [place] [id number] [place] [address] 41631- 0564 October, Bipolar 1 disorder F31.9 ; PTSD (post-traumatic stress disorder) F43.10 and Social phobia F40.10 [facility] [place] [id number] [place] [address] 92526- 4437 Oct, Bipolar 1 disorder F31.9 and Insomnia G47.00 [facility] [place] [id number] [place] [address] 78575- 9730 Oct, [facility] [place] [id number] [place] [address] 44246- 0039 Oct, [facility] [place], [facility] [id number] [place] [address] [phone]- [phone] Aug, Hypothyroid E03.9 [facility] [place], [facility] [id number] [place] [address] [phone] Aug, Encounter for therapeutic drug level monitoring Z51.81 and 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 [facility], [place], [facility] [id number] [place] [address] [id number]- [phone] Aug, Encounter for therapeutic drug level monitoring Z51.81 [facility] [place], [facility] [id number] [place] [address] [phone]- [phone] Aug, Acquired hypothyroidism E03.9 ; Leg pain M79.606 and Bipolar 1 disorder F31.9 [facility] [place], [facility] [id number] [place] [address] [phone] Aug, [facility] [place] [id number] [place] [address] [id number]- [phone] Aug, [facility] [place], [facility] [id number] [place] [address] [id number]- [phone] Jul, Thyroid disorder E07.9 [facility] [place] [id number] [place] [address] [phone]- 5628 Jul, Rash R21 ; Abnormal LFTs R94.5 ; Acquired hypothyroidism E03.9 ; Sleep apnea in adult G47.33 and Fatty liver K76.0 [facility] [place], [facility] [id number] [place] [address] [id number]- [phone] Jun, [facility] [place], [facility] [address] [phone]- [phone] Jun, [facility] [place], [facility] [address] [phone]- 3078 Jun, Bipolar II disorder F31.81 and Social phobia, generalized F40.11 [facility], [place], [facility] [address] [place] [address]- 2438 Mar, Bipolar II disorder 296.89 and Social phobia 300.23 [facility] [place] [address] [place] [address]46- 3732 Dec, [facility] [place] [address] [address]- [address] Dec, [facility] [place] [address] [address]- [address] Dec, Bipolar II disorder in partial or unspecified remission 296.89 and Social phobia, generalized 300.23 [facility] [place] [id number] [place] [address] 47201- 5351 Oct, 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 [facility] [place] [id number] [place] [address] 22905- 0822 Oct, [facility] [place] [address] [address]- 3982 Oct, [facility] [place] [address] [address]- 4668 Aug, [facility] [place] [address] [address]- 6279 Aug, [facility] [place] [facility] [address] [id number] [place] [address] 10 Aug, 2014 [facility] [place] [facility] [address] [id number] [place] [address]- 5413 Aug, [facility] [place] [facility] [address] [id number] [place] [address]- 7931 Aug, [facility] [place] [facility] [address] [id number] [place] [address]- 7121 Aug, [facility] [place] [facility] [address] [id number] [place] [address]- 0384 Aug, [facility] [place] [facility] [address] [id number] [place] [address]- 7693 Aug, [facility] [place] [facility] [address] [id number] [place] [address]- 9121 Jul, [facility] [place] [facility] [address] [id number] [place] [address]- 7286 Jul, [facility] [place] [facility] [address] [id number] [place] [address]- 1674 Jul, [facility] [place] [facility] [address] [id number] [place] [address]- 5014 Jul, [facility] [place] [facility] [address] [id number] [place] [address]- 9468 Jul, [facility] [place] [facility] [address] [id number] [place] [address]- 5638 Jul, [facility] [place] [facility] [address] [id number] [place] [address] Jun, [facility] [place] [facility] [address] [id number] [place] [address]- 3926 Jun, [facility] [place] [facility] [address] [id number] [place] [address]- 7460 Jun, [facility] [place] [facility] [address] [id number] [place] [address]- 8314 Jun, [facility] [place] [facility] [address] [id number] [place] [address]- 6814 Jun, [facility] [place] [facility] [address] [id number] [place] [address]- 3762 Jun, [facility] [place] [facility] [address] [facility] [id number] [place] [address]- 9917 Jun, [facility] [place] [facility] [address] [id number] [place] [address]- 8713 Jun, [facility] [place] [facility] [address] [id number] [place] [address]- 8151 Jun, [facility] [place] [facility] [address] [id number] [place] [address]- 1449 Jun, [facility] [place] [facility] [address] [id number] [place] [address]- 8766 Jun, [facility] [place] [facility] [address] [id number] [place] [address]- 9710 Jun, [facility] [place] [facility] [address] [id number] [place] [address]- 4831 Jun, [facility] [place] [facility] [address] [id number] [place] [address]- 5967 Jun, [facility] [place] [facility] [address] [id number] [address]- 9881 Jun, [facility] [place] [facility] [address] [id number] [place] [address]- 2931 Jun, [facility] [place] [facility] [address] [id number] [place] [address]- 8643 May, [facility] [place] [facility] [address] [id number] [place] [address]- 2310 May, [facility] [place] [facility] [address] [id number] [place] [address]- 9364 May, [facility] [place] [facility] [address] [id number] [place] [address]- 5126 May, [facility] [place] [facility] [address] [id number] [place] [address]- 0941 May, [facility] [place] [facility] [address] [id number] [place] 9570 May, [facility] [place] [facility] [address] [id number] [place] 5788 Apr, [facility] [place] [facility] [address] [id number] [place] [address]- 9904 Apr, [facility] [place] [facility] [address] [id number] [place] [address]- 5740 Apr, [facility] [place] [facility] [address] [id number] [place] [address]- 1362 Apr, [facility] [place] [facility] [address] [id number] [place] [address]- 3086 Apr, [facility] [place] [facility] [address] [id number] [place] [address]- 0102 Apr, [facility] [place] [facility] [address] [id number] [place] [address]- 4734 Mar, [facility] [place] [facility] [address] [id number] [place] [address]- 7927 Mar, [facility] [place] [facility] [address] [id number] [place] [address]- 5388 Mar, [facility] [place] [facility] [address] [id number] [place] [address]- 5236 Mar, [facility] [place] [facility] [address] [id number] [place] [address]- 2349 Jan, [facility] [place] [facility] [address] [id number] [place] [address]- 6079 Jan, [facility] [place] [facility] [address] [id number] [place] [address]- 3602 Jan, [facility] [place] [facility] [address] [id number] [place] [address]- 8200 Jan, [facility] [place] [facility] [address] [id number] [place] [address]- 7651 Jan, [facility] [place] [facility] [address] [id number] [place] [address]- 9791 Jan, [facility] [place] [facility] [address] [id number] [place] [address]- 5181 Dec, [facility] [place] [facility] [address] [id number] [place] [address]- 9233 Dec, [facility] [place] [facility] [address] [id number] [place] [address]- 5462 Dec, [facility] [place] [facility] [address] [id number] [place] [address]- 7010 Dec, [facility] [place] [facility] [address] [id number] [place] [address]- 7942 Dec, [facility] [place] [facility] [address] [id number] [place] [address]- 6723 Dec, [facility] [place] [facility] [address] [id number] [place] [address]- 5434 October, [facility] [place] [facility] [address] [id number] [place] [address]- 1241 October, [facility] [place] [facility] [address] [id number] [place] [address]- 0584 October, [facility] [place] [facility] [address] [id number] [place] [address]- 2576 October, [facility] [place] [facility] [address] [id number] [place] [address]- 2629 October, [facility] [place] [facility] [address] [id number] [place] [address]- 1320 October, [facility] [place] [facility] [address] [id number] [place] [address]- 1633 October, [facility] [place] [facility] [address] [id number] [place] [address]- 2465 October, [facility] [place] [facility] [address] [id number] [place] 6801 Oct, [facility] [place] [facility] [address] [id number] [place] [address]- 0800 Oct, [facility] [place] [facility] [address] [id number] [place] [address]- 5405 Oct, [facility] [place] [facility] [address] [id number] [place] [address]- 5509 Oct, [facility] [place] [facility] [address] [id number] [place] [address]- 5481 Oct, [facility] [place] [facility] [address] [facility] [id number] [place] [address]- 8835 Aug, [facility] [place] [facility] [address] [id number] [place] [address]- 0003 Aug, [facility] [place] [facility] [address] [id number] [place] [address]- 1042 Aug, [facility] [place] [facility] [address] [facility] [id number] [place] [address]- 6564 Aug, [facility] [place] [facility] [address] [id number] [place] [address]- 3545 Aug, [facility] [place] [facility] [address] [id number] [place] [address]- 3093 Aug, [facility] [place] [facility] [address] [id number] [place] [address]- 1830 Jul, [facility] [place] [facility] [address] [id number] [place] [address]- 4002 Jul, [facility] [place] [facility] [address] [facility] [id number] [place] 1107 Jul, [facility] [place] [facility] [address] [id number] [place] [address]- 4229 Jul, [facility] [place] [facility] [address] [id number] [place] [address]- 9032 Jul, [facility] [place] [facility] [address] [id number] [place] [address]- 5815 Jul, [facility] [place] [facility] [address] [id number] [place] [address]- 8518 Jun, [facility] [place] [facility] [address] [id number] [place] [address]- 8138 Jun, [facility] [place] [facility] [address] [id number] [place] [address]- 6542 Jun, [facility] [place] [facility] [address] [id number] [place] [address]- 6766 Jun, [facility] [place] [facility] [address] [id number] [place] [address]- 9542 Jun, [facility] [place] [facility] [address] [id number] [place] [address]- 5265 Jun, [facility] [place] [facility] [address] [id number] [place] [address]- 2681 May, [facility] [place] [facility] [address] [id number] [place] [address]- 6904 May, [facility] [place] [facility] [address] [id number] [place] [address]- 8053 Apr, [facility] [place] [facility] [address] [id number] [place] [address]- 9833 Apr, [facility] [place] [facility] [address] [id number] [place] [address]- 8805 Apr, [facility] [place] [facility] [address] [id number] [place] [address]- 5105 Apr, [facility] [place] [facility] [address] [id number] [place] [address]- 7289 Apr, [facility] [place] [facility] [address] [id number] [place] [address]- 3421 Apr, [facility] [place] [facility] [address] [id number] [place] [address]- 0447 18 Apr, 2013 [facility] [place] [facility] [address] [id number] [place] [address]- 0565 Apr, [facility] [place] [facility] [address] [id number] [place] [address]- 8993 Apr, [facility] [place] [facility] [address] [id number] [place] [address]- 5943 Apr, [facility] [place] [facility] [address] [id number] [place] [address]- 1972 Apr, [facility] [place] [facility] [address] [id number] [place] [address]- 0191 23 Mar, 2013 [facility] [place] [facility] [address] [id number] [place] [address]- 1631 20 Mar, 2012 [facility] [place] [facility] [address] [id number] [place] [address]- 5353 20 Mar, 2013 [facility] [place] [facility] [address] [id number] [place] [address]- 5005 14 Mar, 2013 [facility] [place] [facility] [address] [id number] [place] [address]- 2260 12 Mar, 2013 [facility] [place] [facility] [address] [id number] [place] [address]- 8155 06 Mar, 2012 [facility] [place] [facility] [address] [id number] [place] [address]- 1533 06 Mar, 2012 [facility] [place] [facility] [address] [id number] [place] [address]- 6893 19 Jan, 2013 [facility] [place] [facility] [address] [id number] [place] [address]- 4129 14 Jan, 2013 [facility] [place] [facility] [address] [id number] [place] [address]- 1734 Jan, [facility] [address] [id number] [place] [address]- 4833 Jan, [facility] [address] [id number] [place] [address]- 5017 Jan, [facility] [address] [id number] [place] [address]- 8806 Jan, [facility] [address] [id number] [place] [address]- 4150 Jan, [facility] [address] [id number] [place] [address]- 8608 Dec, [facility] [address] [id number] [place] [address]- 7680 Dec, [facility] [address] [id number] [place] [address]- 0013 Dec, [facility] [address] [id number] [place] [address]- 9706 Dec, [facility] [address] [id number] [place] [address]- 3581 Dec, [facility] [address] [id number] [place] [address]- 4359 Dec, [facility] [address] [id number] [place] [address]- 8836 October, [facility] [address] [id number] [place] [address]- 1724 October, [facility] [address] [id number] [place] [address]- 5758 October, [facility] [address] [id number] [place] [address]- 1621 October, [facility] [address] [id number] [place] [address]- 8150 Oct, [facility] [address] [id number] [place] [address]- 6567 09 Oct, 2012 [facility] [place] [facility] [address] [id number] [place] [address]- 9571 27 Aug, 2012 [facility] [place] [facility] [address] [id number] [place] 3782 Aug, [facility] [place] [facility] [address] [id number] [place] [address]- 9092 Aug, [facility] [place] [facility] [address] [id number] [place] [address]- 3334 Aug, [facility] [place] [facility] [address] [id number] [place] [address]- 9322 Aug, [facility] [place] [facility] [address] [facility] [id number] [place] [address]- 7282 Aug, [facility] [place] [facility] [address] [id number] [place] [address]- 9969 Aug, [facility] [place] [facility] [address] [id number] [place] [address]- 8291 Aug, [facility] [place] [facility] [address] [facility] [id number] [place] [address]- 8935 Aug, [facility] [place] [facility] [address] [id number] [place] [address]- 2654 Aug, [facility] [place] [facility] [address] [id number] [place] [address]- 1545 Aug, [facility] [place] [facility] [address] [id number] [place] [address]- 0566 08 Aug, 2012 [facility] [place] [facility] [address] [id number] [place] [address]- 3778 04 Aug, 2012 [facility] [place] [facility] [address] [facility] [id number] [place] [address]- 7663 Aug, [facility] [place] [facility] [address] [id number] [address]- 4097 Jul, [facility] [place] [id number] [address]- 0835 Jul, [facility] [place] [id number] [address]- 5450 Jul, [facility] [place] [address] [id number] [address]- 0131 Jul, [facility] [place] [id number] [address]- 1070 Jun, [facility] [place] [id number] [address]- 3170 Jun, [facility] [place] [id number] [address]- 1890 Jun, [facility] [place] [id number] [address]- 6695 Jun, [facility] [place] [address] [id number] [address]- 3108 May, [facility] [place] [address] [id number] [address]- 7166 May, IMMUNIZATIONS Vaccine Route Administration Date Status ARISTADA 882 MG/2.5 ML (PT'S OWN) IM Intramuscular May 26, 2017 Administered SOCIAL HISTORY Never Assessed REASON FOR VISIT Injection-Steven Gallardo PLAN OF CARE VITAL SIGNS MEDICATIONS Unknown Medications RESULTS No Results PROCEDURES Procedure Date Ordered Result Body Site ARISTADA 882 MG/2.5 ML (PT'S OWN) May 26, 2017 THER/PROPH/DIAG INJ, SC/IM May 26, 2017 INSTRUCTIONS MEDICATIONS ADMINISTERED No Known [...]
--- OUTSIDE RECORDS SUMMARY | 2018-09-02 18:32 | XMS REPORT ---
Author Author DIGNA GUERRERO [facility] Address [address] [place] [address] Care Team Providers Care Dipper And Baker Name Role Phone DIGNA GUERRERO Unavailable PROBLEMS Type Condition ICD9-CM Code AXS12-IC Code Onset Dates Condition Status SNOMED Code Problem Shortness of breath R06.02 Active 454230912 Problem Panic disorder with agoraphobia F40.01 Active 16786213 Problem Undifferentiated schizophrenia F20.3 Active 271925912 Problem Hypothyroid E03.9 Active 66054986 Problem Abuse, drug or alcohol F19.10 Active 61909735 Problem BMI 50.0-59.9, adult Z68.43 Active 426022997 Problem Sleep apnea in adult G47.33 Active 72426689 Problem Depressive disorder, not elsewhere classified F32.9 Active 07898970 Problem Chronic posttraumatic stress disorder F43.12 Active 674096514 Problem Panic disorder without agoraphobia F41.0 Active 90134805 Problem Panic disorder F41.0 Active 406250666 Problem Neuropathy G62.9 Active 401607901 Problem Social phobia F40.10 Active 93400700 Problem Fatty liver K76.0 Active 730065097 Problem Obesity E66.9 Active 557255191 Problem Orthostatic hypertension I10 Active 21407842 Problem Tunnel vision, unspecified laterality H53.489 Active 696694873 Problem Restless legs syndrome G25.81 Active 663975413 Problem Tachycardia R00.0 Active 3095518 Problem Encounter for therapeutic drug level monitoring Z51.81 Active 372389530 Problem Murmur R01.1 Active 960029522 ALLERGIES No Information ENCOUNTERS Encounter Location Date Diagnosis [facility] [address] [facility] [id number] [address] Dec, [facility] [id number] [address] October, [facility] [address], [place] [address] 15[address] Aug, Undifferentiated schizophrenia F20.3 [facility] [id number] [address] 4266 Aug, [facility] [address], [place] [address] 2546 Aug, Undifferentiated schizophrenia F20.3 ; Panic disorder with agoraphobia F40.01 ; Chronic posttraumatic stress disorder F43.12 and BMI 50.0- 59.9, adult Z68.43 [facility] [id number] [place] [address] 94061- 4916 05 Aug, 2017 [facility] [id number] [place] [address] 70633- 6041 Aug, [facility] [id number] [place] [address] 92788- 5486 Aug, Undifferentiated schizophrenia F20.3 [facility] [id number] [place] [address] 83041- 9950 Aug, Hypothyroid E03.9 [facility] [id number] [place] [address] 06621- 5496 Jul, Undifferentiated schizophrenia F20.3 [facility] [address], [place] [address] 7026 Jul, [facility] [id number] [place] [address] 65339- 8804 Jul, Undifferentiated schizophrenia F20.3 ; Chronic posttraumatic stress disorder F43.12 ; Panic disorder with agoraphobia F40.01 and BMI 50.0-59.9, adult Z68.43 [facility] [address], [place] [address] 0116 15 Jul, 2017 [facility] [address], [place] [address]- 2216 08 Jul, 2017 Acute pain of right shoulder M25.511 ; High risk medication use Z79.899 ; Needle stick injury W27.3XXA ; Hypothyroid E03.9 and BMI 50.0-59.9 , adult Z68.43 [facility] [id number] [place] [address] 05763- 2956 Jun, Undifferentiated schizophrenia F20.3 [facility] [id number] [place] [address] 52908- 9257 Jun, Undifferentiated schizophrenia F20.3 ; Panic disorder without agoraphobia F41.0 ; Chronic posttraumatic stress disorder F43.12 and BMI 50.0-59.9, adult Z68.43 [facility] [id number] [place] [address] 89595- 4131 May, [facility] [id number] [place] [address] 35344- 7592 May, [facility] [id number] [place] [address] 27023- 9344 May, Undifferentiated schizophrenia F20.3 [facility] [id number] [place] [address] 03560- 2929 May, [facility] [id number] [place] [address] 10346- 4346 May, [facility] [id number] [place] [address] 71725- 4165 May, Hypothyroid E03.9 [facility] [id number] [place] [address] 49226- 5538 May, [facility] [id number] [place] [address] 18221- 3854 May, [facility] [id number] [place] [address] 04862- 4559 07 May, 2017 Chronic posttraumatic stress disorder F43.12 ; Panic disorder with agoraphobia F40.01 ; Undifferentiated schizophrenia F20.3 ; BMI 40.0-44.9, adult Z68.41 and Obesity E66.9 [facility] [address], [place] [address]- 6994 07 May, 2017 Shortness of breath R06.02 [facility] [address] [place] [address] 27557- 0585 02 May, 2017 [facility] [id number] [place] [address] 04295- 1356 Apr, Undifferentiated schizophrenia F20.3 [facility] [id number] [place] [address] 48871- 6863 Apr, [facility] [id number] [place] [address] 05172- 0891 Apr, [facility] [id number] [place] [address] 25372- 1294 Mar, Undifferentiated schizophrenia F20.3 ; Panic disorder without agoraphobia F41.0 and Chronic posttraumatic stress disorder F43.12 [facility] [id number] [place] [address] 06885- 2809 Mar, Undifferentiated schizophrenia F20.3 [facility] [id number] [place] [address] 21874- 4061 18 Mar, 2017 [facility] [id number] [place] [address] 18329- 4863 08 Mar, 2017 [facility] [id number] [place] [address] 50462- 6593 Mar, [facility] [address] [place] [address] 78410- 1544 Jan, Undifferentiated schizophrenia F20.3 [facility] [id number] [place] [address] 48499- 2320 Jan, [facility] [id number] [place] [address] 27205- 8965 Jan, [facility] [id number] [place] [address] 97623- 6632 Jan, [facility] [id number] [id number] Dec, Needle stick injury W27.3XXA [facility] [id number] [address]- 3897 Dec, Needle stick injury W27.3XXA [facility] [address], [place] [address]- 3635 Dec, Undifferentiated schizophrenia F20.3 [facility] [id number] [address]- 7553 Dec, [facility] [address] [place] [address] 07642- 7264 Dec, [facility] [address], [place] [address]- 4329 Dec, Undifferentiated schizophrenia F20.3 ; Panic disorder with agoraphobia F40.01 and Chronic posttraumatic stress disorder F43.12 [facility] [address], [place] [address]- 4371 Dec, [facility] [address], [place] [address]- 7465 October, [facility] [address], [place] [address]- 0604 October, Undifferentiated schizophrenia F20.3 [facility] [address], [place] [address]- 2429 October, [facility] [id number], [place] [address]- 4281 October, [facility] [address], [place] [address]- 7441 Oct, Undifferentiated schizophrenia F20.3 ; Panic disorder with agoraphobia F40.01 ; Chronic posttraumatic stress disorder F43.12 and Obesity E66.9 [facility] [address], [place] [address]- 6623 Oct, [facility] [address] [place] [address] 46267- 6536 Oct, [facility] [id number] [place] [address] 00972- 3309 Aug, Undifferentiated schizophrenia F20.3 [facility] [id number] [place] [address] 35969- 3681 Aug, [facility] [id number] [place] [address] 97070- 8462 Aug, Muscle spasm M62.838 [facility] [id number] [place] [address] 53894- 2567 Aug, Undifferentiated schizophrenia F20.3 [facility] [id number] [place] [address] 40489- 7229 Aug, Undifferentiated schizophrenia F20.3 ; Panic disorder with agoraphobia F40.01 ; Chronic posttraumatic stress disorder F43.12 ; High risk medication use Z79.899 and Social phobia F40.10 [facility] [id number] [place] [address] 89199- 0049 Aug, Undifferentiated schizophrenia F20.3 [facility] [id number] [place] [address] 20758- 3202 Aug, [facility] [id number] [place] [address] 17663- 8491 Aug, Acute non-recurrent maxillary sinusitis J01.00 [facility] [address] [place] [address] 40110- 9173 Aug, [facility] [id number] [place] [address] 71300- 1841 Aug, [facility] [id number] [place] [address] 69525- 6482 Jul, Undifferentiated schizophrenia F20.3 [facility] [id number] [place] [address] 90283- 0816 Jul, Schizophrenia, undifferentiated F20.3 ; Social phobia F40.10 ; Post-traumatic stress disorder F43.10 ; Panic disorder F41.0 and Depressive disorder, not elsewhere classified F32.9 [facility] [address] [place] [address] 86468- 3697 Jul, [facility] [id number] [place] [address] 53291- 0702 Jul, Schizophrenia, undifferentiated F20.3 ; Social phobia F40.10 ; Post-traumatic stress disorder F43.10 ; Panic disorder F41.0 and Depressive disorder, not elsewhere classified F32.9 [facility] [id number] [place] [address] 27281- 9426 Jul, [facility] [id number] [place] [address] 33158- 8559 Jul, Undifferentiated schizophrenia F20.3 ; Panic disorder with agoraphobia F40.01 ; Social phobia F40.10 ; Obesity E66.9 and Chronic posttraumatic stress disorder F43.12 [facility] [id number] [place] [address] 85001- 7136 Jun, [facility] [id number] [place] [address] 58698- 6816 Jun, [facility] [id number] [place] [address] 28590- 5662 Jun, Dental caries K02.9 [facility] [id number] [place] [address] 65545- 7903 Jun, Undifferentiated schizophrenia F20.3 [facility] [id number] [place] [address] 23707- 1140 May, [facility] [address] [place] [address] 59912- 7504 May, Undifferentiated schizophrenia F20.3 ; Panic disorder with agoraphobia F40.01 and Chronic post-traumatic stress disorder (PTSD) F43.12 [facility] [address] [place] [address] 09926- 2134 May, [facility] [id number] [place] [address] 20495- 2061 May, Undifferentiated schizophrenia F20.3 [facility] [id number] [place] [address] 59393- 6344 May, [facility] [id number] [place] [address] 34490- 4456 May, Dental examination Z01.20 [facility] [id number] [place] [address] 61882- 3886 Apr, Undifferentiated schizophrenia F20.3 ; PTSD (post-traumatic stress disorder) F43.10 and Obesity E66.9 [facility] [id number] [place] [address] 91146- 3481 Apr, [facility] [id number] [place] [address] 69319- 3564 15 Mar, 2016 [facility] [id number] [place] [address] 90407- 9553 Mar, [facility] [id number] [place] [address] 16782- 3999 Jan, Shortness of breath R06.02 and Bipolar disorder with psychotic features F31.9 [facility] [id number] [place] [address] 35890- 5963 Jan, [facility] [id number] [place] [address] 30277- 9165 Jan, Increased intracranial pressure G93.2 ; Visual disturbance H53.9 and Bipolar II disorder F31.81 [facility] [id number] [place] [address] 52761- 2425 Jan, [facility] [id number] [place] [address] 11469- 7613 Jan, [place] [id number] [place] [address] 96722- 4485 Jan, [address] [address] [address] 04731- 6944 Jan, Acquired hypothyroidism E03.9 ; Depression F32.9 and Insomnia G47.[address] 37258- 7102 Jan, Exertional dyspnea R06.09 ; Heart palpitations R00.2 ; Hyperlipidemia, unspecified hyperlipidemia type E78.5 ; Hypothyroidism, unspecified type E03.9 and Hypokalemia E87.6 [address] 44763- 1999 Dec, PTSD (post-traumatic stress disorder) F43.10 ; Depression F32.9 ; Insomnia G47.00 and Bipolar disorder with psychotic features F31.9 [address] [address] 07097- 3951 Dec, Increased intracranial pressure G93.2 [address] [address] 23861- 6831 Dec, [place] [address] 94690- 3812 Dec, Shortness of breath R06.02 [place] [id number] [place] [address] 45380- 6487 Dec, Visual disturbance H53.9 and Headache, unspecified headache type R51 [place] [id number] [place] [address] 69917- 1610 Dec, Insomnia G47.00 [address] [place] [address] 35978- 7400 Dec, Murmur R01.1 [place] [id number] [place] [address] 48318- 5005 Dec, Murmur R01.1 ; Tunnel vision, unspecified laterality H53.489 ; Orthostatic hypertension I10 ; Shortness of breath R06.02 and Tachycardia R00.0 [place] [id number] [place] [address] 02851- 0454 Dec, [facility] [id number] [place] [address] 37944- 0135 Dec, Hypothyroid E03.9 and Bipolar 1 disorder F31.9 [place] [id number] [place] [address] 91136- 6203 Dec, Bipolar 1 disorder F31.9 [place] [id number] [place] [address] 63913- 8698 Dec, [place] [id number] [place] [address] 13044- 4365 October, Acquired hypothyroidism E03.9 ; Depression F32.9 and Insomnia G47.00 [place] [id number] [place] [address] 50560- 0217 October, [place] [id number] [place] [address] 79074- 9527 October, Bipolar 1 disorder F31.9 ; PTSD (post-traumatic stress disorder) F43.10 and Social phobia F40.10 [place] [id number] [place] [address] 84901- 8084 Oct, Bipolar 1 disorder F31.9 and Insomnia G47.00 [place] [id number] [place] [address] 14809- 7202 Oct, [place] [id number] [place] [address] 19484- 8076 Oct, [place] [id number] [place] [address] 20042- 3576 Aug, Hypothyroid E03.9 [place] [id number] [place] [address] 98202- 5245 Aug, Encounter for therapeutic drug level monitoring Z51.81 and Other skilled nursing (current) drug therapy Z79.899 [facility] [id number] [place] [address] 47305- 1830 Aug, Encounter for therapeutic drug level monitoring Z51.81 [facility] [id number] [place] [address] 00141- 9492 15 Sep, 2015 Acquired hypothyroidism E03.9 ; Leg pain M79.606 and Bipolar 1 disorder F31.9 [facility] [address] 93472- 2133 Aug, [facility] [address] 38796- 9802 Aug, [facility] [address] 94985- 5047 Jul, Thyroid disorder E07.9 [facility] [address] 19062- 6442 Jul, Rash R21 ; Abnormal LFTs R94.5 ; Acquired hypothyroidism E03.9 ; Sleep apnea in adult G47.33 and Fatty liver K76.0 [facility] [address] 34412- 5494 Jun, [facility] [address] 57145- 4136 Jun, [facility] [address] 55856- 3966 Jun, Bipolar II disorder F31.81 and Social phobia, generalized F40.11 [facility] [address] 66413- 7034 Mar, Bipolar II disorder 296.89 and Social phobia 300.23 [facility] [address] 95089- 4431 Dec, [facility] [address] 22965- 4126 Dec, [facility] [address] 2413 Dec, Bipolar II disorder in partial or unspecified remission 296.89 and Social phobia, generalized 300.23 [facility] [address], [place] [address]- 5976 30 Oct, 2014 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 [facility] [id number] [place] [address] 61582- 2270 Oct, [facility] [id number] [place] [address] 00547- 5686 Oct, [facility] [id number] [place] [address] 40540- 7199 Aug, [facility] [id number] [place] [address] 57240- 2145 Aug, [facility] [id number] [place] [address] 02751- 7122 Aug, [facility] [address], [place] [address]- 0576 Aug, [facility] [address], [place] [address]- 9567 Aug, [facility] [address], [place] [address]- 0638 Aug, [facility] [address], [place] [address]- 2309 Aug, [facility] [address], [place] [address]- 7733 Aug, [facility] [id number] [address]- 9922 Jul, [facility] [address]- 8848 Jul, [facility] [address] [address] [place] [address]- 0450 Jul, [facility] [address] [id number] [place] [address]- 3878 Jul, [facility] [place] [facility] [address] [id number] [place] [address]- 9896 Jul, [facility] [address] [id number] [place] [address]- 3352 Jul, [facility] [place] [facility] [address] [id number] [place] [address]- 0593 Jun, [facility] [place] [facility] [address] [id number] [place] [address]- 9857 Jun, [facility] [place] [facility] [address] [id number] [place] [address]- 3900 Jun, [facility] [address] [id number] [place] [address]- 1690 Jun, [facility] [place] [facility] [address] [id number] [place] [address]- 8693 Jun, [facility] [place] [facility] [address] [id number] [place] [address]- 2136 Jun, [facility] [place] [facility] [address] [id number] [place] [address]- 9769 Jun, [facility] [place] [facility] [address] [id number] [place] [address]- 0942 Jun, [facility] [place] [facility] [address] [id number] [place] [address]- 3514 Jun, [facility] [place] [facility] [address] [id number] [place] 3427 Jun, [facility] [place] [facility] [address] [id number] [place] [address]- 5406 Jun, [facility] [place] [facility] [address] [id number] [place] 2945 Jun, [facility] [place] [facility] [address] [id number] [place] [address] Jun, [facility] [place] [facility] [address] [id number] [place] [address] Jun, [facility] [place] [facility] [address] [id number] [place] [address] Jun, [facility] [place] [facility] [address] [id number] [place] [address] Jun, [facility] [place] [facility] [address] [id number] [place] [address] May, [facility] [place] [facility] [address] [id number] [place] [address] May, [facility] [place] [facility] [address] [id number] [place] [address] May, [facility] [place] [facility] [address] [id number] [place] [address] May, [facility] [place] [facility] [address] [id number] [place] [address] May, [facility] [place] [facility] [address] [id number] [place] [address] May, [facility] [place] [facility] [address] [id number] [place] [address] Apr, [facility] [place] [facility] [address] [id number], [place] [address] Apr, [facility] [place] [facility] [address] [id number] [place] [address] Apr, [facility] [place] [facility] [address] [id number] [place] [address] Apr, [facility] [place] [facility] [address] [id number] [place] [address] Apr, [facility] [place] [facility] [address] [id number], [place] [address] Apr, [facility] [place] [facility] [address] [id number] [place] [address] Mar, [facility] [place] [facility] [address] [id number] [place] [address] 2011 Mar, [facility] [place] [facility] [address] [id number] [place] [address] Mar, [facility] [place] [facility] [address] [id number] [place] [address] Mar, [facility] [place] [facility] [address] [id number] [place] [address] Jan, [facility] [place] [facility] [address] [id number] [place] [address] Jan, [facility] [place] [facility] [address] [id number] [place] [address] Jan, [facility] [place] [facility] [address] [id number] [place] [address] Jan, [facility] [place] [facility] [address] [id number] [place] [address] Jan, [facility] [place] [facility] [address] [id number] [place] [address] Jan, [facility] [place] [facility] [address] [id number] [place] [address] Dec, [facility] [place] [facility] [address] [id number] [place] [address] Dec, [facility] [place] [facility] [address] [id number] [place] [address] Dec, [facility] [place] [facility] [address] [id number] [place] [address] Dec, [facility] [place] [facility] [address] [id number] [place] [address] Dec, [facility] [place] [facility] [address] [id number] [place] [address] Dec, [facility] [address] [id number] [place] [address] October, [facility] [place] [facility] [address] [id number] [place] [address] October, [facility] [address] [id number] [place] [address] October, [facility] [place] [facility] [address] [id number] [place] [address] October, [facility] [address] [id number] [place] [address] October, [facility] [address] [id number] [place] [address] October, [facility] [address] [id number] [place] [address] October, [facility] [address] [id number] [place] [address] October, [facility] [place] [facility] [address] [id number] [place] [address] Oct, [facility] [address] [id number] [place] [address] Oct, [facility] [place] [facility] [address] [id number] [place] [address] Oct, [facility] [place] [facility] [address] [id number] [place] [address] Oct, [facility] [place] [facility] [address] [id number] [place] [address] Oct, [facility] [place] [facility] [address] [id number] [place] [address] Aug, [facility] [place] [facility] [address] [id number] [place] [address] Aug, [facility] [place] [facility] [address] [id number] [place] [address] Aug, [facility] [place] [facility] [address] [id number] [place] [address] Aug, [facility] [place] [facility] [address] [id number] [place] [address] Aug, [facility] [place] [facility] [address] [id number] [place] [address] Aug, [facility] [place] [facility] [address] [id number] [place] [address] Jul, [facility] [place] [facility] [address] [id number] [place] [address] Jul, [facility] [place] [facility] [address] [id number] [place] [address] Jul, [facility] [place] [facility] [address] [id number] [place] [address] Jul, [facility] [place] [facility] [address] [id number] [place] [address] Jul, [facility] [place] [facility] [address] [id number] [place] [address] Jul, [facility] [place] [facility] [address] [id number] [place] [address] Jun, [facility] [place] [facility] [address] [id number] [address] Jun, [facility] [place] [facility] [address] [id number] [place] [address] Jun, [facility] [place] [facility] [address] [id number] [place] [address] Jun, [facility] [place] [facility] [address] [id number] [place] [address] Jun, [facility] [place] [facility] [address] [id number] [place] [address] Jun, [facility] [place] [facility] [address] [id number] [place] [address] May, [facility] [place] [facility] [address] [id number] [place] [address] May, [facility] [place] [facility] [address] [id number] [place] [address] Apr, [facility] [place] [facility] [address] [id number] [place] [address] Apr, [facility] [place] [facility] [address] [id number] [place] [address] Apr, [facility] [place] [facility] [address] [id number] [place] [address] Apr, [facility] [place] [facility] [address] [id number] [place] [address] Apr, [facility] [place] [facility] [address] [id number] [place] [address] Apr, [facility] [place] [facility] [address] [id number] [place] [address] 138[address] Apr, [facility] [place] [facility] [address] [id number] [place] [address] Apr, [facility] [place] [facility] [address] [id number] [place] [address] Apr, [facility] [place] [facility] [address] [id number] [place] [address] Apr, [facility] [place] [facility] [address] [id number] [place] [address] Apr, [facility] [place] [facility] [address] [id number] [place] [address] Mar, [facility] [place] [facility] [address] [id number] [place] 20 Mar, 2013 [facility] [place] [facility] [address] [id number] [place] [address] 20 Mar, 2012 [facility] [place] [facility] [address] [id number] [place] [address] 14 Mar, 2013 [facility] [place] [facility] [address] [id number] [place] [address]- [address] 12 Mar, 2012 [facility] [place] [facility] [address] [id number] [place] [address] Mar, 2012 [facility] [address] [id number] [place] [address] Mar, 2012 [facility] [place] [facility] [address] [id number] [place] [address] Jan, [facility] [address] [id number] [place] [address] 67[address] Jan, [facility] [address] [id number] [place] [address] 269[address] Jan, [facility] [place] [facility] [address] [id number] [place] [address] Jan, [facility] [place] [facility] [address] [id number] [place] [address] Jan, [facility] [place] [facility] [address] [id number] [place] [address]- [address] Jan, [facility] [place] [facility] [address] [id number] [place] [address] 37[address] Jan, [facility] [place] [facility] [address] [id number] [place] [address] 83[address] Dec, [facility] [place] [facility] [address] [id number] [place] [address] 9[address] Dec, [facility] [place] [facility] [address] [id number] [place] [address] Dec, [facility] [place] [facility] [address] [id number] [place] [address] 08[address] Dec, [facility] [address] [id number] [place] [address] 5797 Dec, [facility] [address] [id number] [place] [address] 45[address] Dec, [facility] [address] [id number] [place] [address] October, [facility] [place] [facility] [address] [id number] [place] [address]- 7917 October, [facility] [address] [id number] [place] [address]- 3[address] October, [facility] [address] [id number] [place] [address] 4[address] October, [facility] [address] [id number] [place] [address]- 6840 Oct, [facility] [address] [id number] [place] [address]- 1767 Oct, [facility] [address] [id number] [place] [address]- 1101 Aug, [facility] [place] [facility] [address] [id number] [place] [address]- 4033 Aug, [facility] [address] [id number] [place] [address]- 29[address] Aug, [facility] [place] [facility] [address] [id number] [place] [address]- 8461 Aug, [facility] [place] [facility] [address] [id number] [place] [address]- 7181 Aug, [facility] [place] [facility] [address] [id number] [place] [address]- 5794 Aug, [facility] [place] [facility] [address] [id number] [place] [address]- 2461 Aug, [facility] [place] [facility] [address] [id number] [place] [address]- 6[address] 25 Aug, 2012 [facility] [address] [id number] [place] [address]- 8076 Aug, 2012 [facility] [place] [facility] [address] [id number] [place] [address] 2546 11 Aug, 2012 [facility] [place] [facility] [address] [id number] [place] [address] 2546 10 Aug, 2012 [facility] [place] [facility] [address] [id number] [place] [address]- [address] 08 Aug, 2012 [facility] [place] [facility] [address] [id number] [place] [address] Aug, [facility] [address] [id number] [place] [address]- 4[address] Aug, [facility] [address] [id number] [place] [address]- [address] 30 Jul, 2012 [facility] [place] [facility] [address] [id number] [place] [address]- [address] Jul, [facility] [address] [id number] [place] [address]- [address] Jul, [facility] [place] [facility] [address] [id number] [place] [address]- 7931 Jul, [facility] [place] [facility] [address] [id number] [place] [address]- 9661 Jun, [facility] [place] [facility] [address] [id number] [place] [address]- 2546 Jun, [facility] [place] [facility] [address] [id number] [place] [address]- 2546 Jun, [facility] [place] [facility] [address] [id number] [place] [address]- 2541 Jun, [facility] [place] [facility] [address] [id number] [place] [address] May, [facility] [address] [facility] [id number] [place] [address] May, IMMUNIZATIONS No Known Immunizations SOCIAL HISTORY Never Assessed REASON FOR VISIT PALS IN[place] PLAN OF CARE VITAL SIGNS MEDICATIONS Unknown [...]
--- OUTSIDE RECORDS SUMMARY | 2018-09-02 18:32 | XMS REPORT ---
Author Author WILLIS CUETO Organization [facility] Address [address] [place] [address] Care Team Providers Care Animal Control Supervisor Name Role Phone WILLIS CUETO Unavailable PROBLEMS Type Condition ICD9-CM Code [id number] Code Onset Dates Condition Status SNOMED Code Problem Murmur R01.1 Active 485572625 Problem Shortness of breath R06.02 Active 626134347 Problem Tachycardia R00.0 Active 0287691 Problem Depressive disorder, not elsewhere classified F32.9 Active 29657444 Problem Acquired hypothyroidism E03.9 Active 462372092 Problem Panic disorder without agoraphobia F41.0 Active 12419232 Problem Panic disorder with agoraphobia F40.01 Active 39678703 Problem Undifferentiated schizophrenia F20.3 Active 477153139 Problem Panic disorder F41.0 Active 355265578 Problem Chronic posttraumatic stress disorder F43.12 Active 157277567 Problem Fatty liver K76.0 Active 103421728 Problem Obesity E66.9 Active 065595729 Problem Sleep apnea in adult G47.33 Active 05910887 Problem Abuse, drug or alcohol F19.10 Active 28760654 Problem Neuropathy G62.9 Active 032267169 Problem Encounter for therapeutic drug level monitoring Z51.81 Active 147610814 Problem Social phobia F40.10 Active 97080172 Problem Orthostatic hypertension I10 Active 32042688 Problem Restless legs syndrome G25.81 Active 009467074 Problem Tunnel vision, unspecified laterality H53.489 Active 722185202 ALLERGIES Unknown Allergies SOCIAL HISTORY No smoking Hx information available PLAN OF CARE Activity Details Follow Up 1 Week Reason:depression, psychosis VITAL SIGNS MEDICATIONS Unknown Medications RESULTS No Results PROCEDURES Procedure Date Ordered Related Diagnosis Body Site Psychotherapy, patient &/family, 30 minutes, established patient Jul 20, 2016 IMMUNIZATIONS No Known Immunizations
--- OUTSIDE RECORDS SUMMARY | 2018-09-02 18:32 | XMS REPORT ---
Author Author AMARI HOWARD Organization [facility] Address [address] [place] [address] Care Team Providers Care Medical Records Technician Name Role Phone AMARI HOWARD Unavailable PROBLEMS Type Condition ICD9-CM Code [id number] Code Onset Dates Condition Status SNOMED Code Problem Murmur R01.1 Active 758598346 Problem Shortness of breath R06.02 Active 479780794 Problem Tachycardia R00.0 Active 7002166 Problem Depressive disorder, not elsewhere classified F32.9 Active 06064439 Problem Acquired hypothyroidism E03.9 Active 978865649 Problem Panic disorder without agoraphobia F41.0 Active 34000947 Problem Panic disorder with agoraphobia F40.01 Active 68674633 Problem Undifferentiated schizophrenia F20.3 Active 480884341 Problem Panic disorder F41.0 Active 880639949 Problem Chronic posttraumatic stress disorder F43.12 Active 891401149 Problem Fatty liver K76.0 Active 004772500 Problem Obesity E66.9 Active 308197169 Problem Sleep apnea in adult G47.33 Active 07222734 Problem Abuse, drug or alcohol F19.10 Active 88657381 Problem Neuropathy G62.9 Active 837632341 Problem Encounter for therapeutic drug level monitoring Z51.81 Active 448574088 Problem Social phobia F40.10 Active 60065843 Problem Orthostatic hypertension I10 Active 87273619 Problem Restless legs syndrome G25.81 Active 670232096 Problem Tunnel vision, unspecified laterality H53.489 Active 870613566 ALLERGIES Unknown Allergies SOCIAL HISTORY No smoking Hx information available PLAN OF CARE VITAL SIGNS MEDICATIONS Medication Instructions Dosage Frequency Start Date End Date Duration Status [place] Carbonate 300 MG Orally 1 cap in AM and 2 cap at bedtime 1 capsule 30 days Active RESULTS No Results PROCEDURES No Known procedures IMMUNIZATIONS No Known Immunizations
--- OUTSIDE RECORDS SUMMARY | 2018-09-02 18:32 | XMS REPORT ---
Author Author AMARI HOWARD [facility] Address [address] [place] [address] Care Team Providers Care Medical Care Administrator Name Role Phone AMARI HOWARD Unavailable PROBLEMS Type Condition ICD9-CM Code [id number] Code Onset Dates Condition Status SNOMED Code Problem Murmur R01.1 Active 806714216 Problem Shortness of breath R06.02 Active 265122631 Problem Tachycardia R00.0 Active 6780202 Problem Depressive disorder, not elsewhere classified F32.9 Active 30560191 Problem Acquired hypothyroidism E03.9 Active 550289034 Problem Panic disorder without agoraphobia F41.0 Active 55441911 Problem Panic disorder with agoraphobia F40.01 Active 08735882 Problem Undifferentiated schizophrenia F20.3 Active 587973687 Problem Panic disorder F41.0 Active 090653165 Problem Chronic posttraumatic stress disorder F43.12 Active 817645346 Problem Fatty liver K76.0 Active 740973377 Problem Obesity E66.9 Active 093635495 Problem Sleep apnea in adult G47.33 Active 65877962 Problem Abuse, drug or alcohol F19.10 Active 32430424 Problem Neuropathy G62.9 Active 214796850 Problem Encounter for therapeutic drug level monitoring Z51.81 Active 961648319 Problem Social phobia F40.10 Active 52990746 Problem Orthostatic hypertension I10 Active 70362810 Problem Restless legs syndrome G25.81 Active 242875441 Problem Tunnel vision, unspecified laterality H53.489 Active 889297699 ALLERGIES Substance Reaction Event Type Date Status N.K.D.A. Unknown Non Drug Allergy Jul, Unknown SOCIAL HISTORY No smoking Hx information available PLAN OF CARE VITAL SIGNS MEDICATIONS Medication Instructions Dosage Frequency Start Date End Date Duration Status Trazodone HCl 150 MG Orally for sleep [...] 24h 20 Dec, 2015 90 days Active [place] Carbonate 300 MG Orally 1 cap in AM and 2 cap at bedtime 1 capsule 30 days Active RESULTS No Results PROCEDURES Procedure Date Ordered Related Diagnosis Body Site ARISTADA 662 MG/2.5 ML (SAMPLE) Jul 20, 2016 THER/PROPH/DIAG INJ, SC/IM Jul 20, 2016 IMMUNIZATIONS Vaccine Route Administration Date Status ARISTADA 662 MG/2.5 ML (SAMPLE) IM Intramuscular Jul 20, 2016 Administered
--- OUTSIDE RECORDS SUMMARY | 2018-09-02 18:32 | XMS REPORT ---
Author Author JOSE LARRY [facility] Address [address] [place] [address] Care Team Providers Care Fiber Machine Tender Name Role Phone JOSE LARRY Unavailable PROBLEMS Type Condition ICD9-CM Code BKE20-WR Code Onset Dates Condition Status SNOMED Code Problem Murmur R01.1 Active 621812259 Problem Shortness of breath R06.02 Active 662552749 Problem Tachycardia R00.0 Active 5728424 Problem Depressive disorder, not elsewhere classified F32.9 Active 33951717 Problem Acquired hypothyroidism E03.9 Active 971296086 Problem Panic disorder without agoraphobia F41.0 Active 25891283 Problem Panic disorder with agoraphobia F40.01 Active 50703665 Problem Undifferentiated schizophrenia F20.3 Active 684960378 Problem Panic disorder F41.0 Active 442775602 Problem Chronic posttraumatic stress disorder F43.12 Active 586438594 Problem Fatty liver K76.0 Active 070980759 Problem Obesity E66.9 Active 821911489 Problem Sleep apnea in adult G47.33 Active 90245541 Problem Abuse, drug or alcohol F19.10 Active 74463964 Problem Neuropathy G62.9 Active 158219950 Problem Encounter for therapeutic drug level monitoring Z51.81 Active 184759618 Problem Social phobia F40.10 Active 22694367 Problem Orthostatic hypertension I10 Active 97513159 Problem Restless legs syndrome G25.81 Active 769388891 Problem Tunnel vision, unspecified laterality H53.489 Active 497033706 ALLERGIES No Information SOCIAL HISTORY Never Assessed [...]
--- OUTSIDE RECORDS SUMMARY | 2018-09-02 18:32 | XMS REPORT ---
Author Author AMARI HOWARD [facility] Address [address] [place] [address] Care Team Providers Care Employee Communications Specialist Name Role Phone AMARI HOWARD Unavailable PROBLEMS Type Condition ICD9-CM Code [id number] Code Onset Dates Condition Status SNOMED Code Problem Murmur R01.1 Active 172197073 Problem Shortness of breath R06.02 Active 822175848 Problem Tachycardia R00.0 Active 8102731 Problem Depressive disorder, not elsewhere classified F32.9 Active 52391249 Problem Acquired hypothyroidism E03.9 Active 570687620 Problem Panic disorder without agoraphobia F41.0 Active 11317066 Problem Panic disorder with agoraphobia F40.01 Active 55624683 Problem Undifferentiated schizophrenia F20.3 Active 988070593 Problem Panic disorder F41.0 Active 091871064 Problem Chronic posttraumatic stress disorder F43.12 Active 187779869 Problem Fatty liver K76.0 Active 716282163 Problem Obesity E66.9 Active 520381860 Problem Sleep apnea in adult G47.33 Active 25060983 Problem Abuse, drug or alcohol F19.10 Active 59780663 Problem Neuropathy G62.9 Active 869713875 Problem Encounter for therapeutic drug level monitoring Z51.81 Active 181046629 Problem Social phobia F40.10 Active 65427497 Problem Orthostatic hypertension I10 Active 03783347 Problem Restless legs syndrome G25.81 Active 739992212 Problem Tunnel vision, unspecified laterality H53.489 Active 506008501 ALLERGIES No Known Allergies SOCIAL HISTORY Never Assessed PLAN OF CARE Activity Details Follow Up 6 Weeks Reason: VITAL SIGNS Height 67 in 2016-09-01 Weight 346.0 lbs 2016-09-01 Heart Rate 96 bpm 2016-09-01 Respiratory Rate 18 2016-09-01 BMI 54.19 kg/m2 2016-09-01 Blood pressure systolic 105 mmHg 2016-09-01 Blood pressure diastolic 77 mmHg 2016-09-01 MEDICATIONS Medication Instructions Dosage Frequency Start Date End Date Duration Status [place] 882 MG/3.2ML 3.2 ml 10 May, [address] Carbonate 300 MG Orally 1 cap in AM and 2 cap at bedtime 1 capsule Active Neurontin 800 MG Orally 2 times a day 1 tablet 12h Aug, Active Levothyroxine Sodium 100 MCG Orally Once a day 1 tablet 24h 30 Sep, 2015 Active Clonazepam 1 MG Orally 3 times a day for anxiety 1 tablet Apr, Active Breo Ellipta 100-25 MCG/INH Inhalation Once a day 1 puff 24h 20 Dec, 2015 90 days Active Trazodone HCl 150 MG Orally for sleep 1 tablet at bedtime Active RESULTS Name Result Date Reference Range URINE DRUG SCREEN (IN HOUSE) 2016-09-01 Lot # [id number] Exp date Control + COCAINE Negative AMPH Negative MTD Negative THC Negative OPIATE Negative BENZO Negative PCP Negative BAR Negative OXY Negative MAMP Negative TCA Negative BUP Negative MDMA Negative AMERITOX 2016-09-05 PROCEDURES Procedure Date Ordered Result Body Site DRUG TEST PRSMV DIR OPT OBS September 01, 2016 No Charge September 01, 2016 IMMUNIZATIONS No Known Immunizations MEDICAL (GENERAL) HISTORY [...]
--- OUTSIDE RECORDS SUMMARY | 2018-09-02 18:33 | XMS REPORT ---
Author Author DIGNA GUERRERO [facility] Address [address] [place] [address] Care Team Providers Care Hand Candy Cutter Name Role Phone DIGNA GUERRERO Unavailable PROBLEMS Type Condition ICD9-CM Code VGW39-SX Code Onset Dates Condition Status SNOMED Code Problem Orthostatic hypertension I10 Active 97758637 Problem Murmur R01.1 Active 818069771 Problem Tunnel vision, unspecified laterality H53.489 Active 932624175 Problem Panic disorder without agoraphobia F41.0 Active 18186043 Problem Acquired hypothyroidism E03.9 Active 999301591 Problem Panic disorder F41.0 Active 990557753 Problem Panic disorder with agoraphobia F40.01 Active 31739426 Problem Undifferentiated schizophrenia F20.3 Active 136470658 Problem Depressive disorder, not elsewhere classified F32.9 Active 91798993 Problem Chronic posttraumatic stress disorder F43.12 Active 344541531 Problem Abuse, drug or alcohol F19.10 Active 74295370 Problem Social phobia F40.10 Active 89688516 Problem Sleep apnea in adult G47.33 Active 95536725 Problem Fatty liver K76.0 Active 911997465 Problem Restless legs syndrome G25.81 Active 175185520 Problem Encounter for therapeutic drug level monitoring Z51.81 Active 996185212 Problem Obesity E66.9 Active 298275744 Problem Tachycardia R00.0 Active 9749332 Problem Neuropathy G62.9 Active 702063328 Problem Shortness of breath R06.02 Active 325768804 ALLERGIES Unknown Allergies SOCIAL HISTORY No smoking Hx information available PLAN OF CARE VITAL SIGNS MEDICATIONS Medication Instructions Dosage Frequency Start Date End Date Duration Status Aristada 882 MG/3.2ML 3.2 ml May, Active RESULTS No Results PROCEDURES No Known procedures IMMUNIZATIONS No Known Immunizations
--- OUTSIDE RECORDS SUMMARY | 2018-09-02 18:33 | XMS REPORT ---
Author Author TERRENCE Bustamante [facility] Address Unknown Care Team Providers Care Disability Rater Name Role Phone aleksandrTERRENCE Randall Unavailable PROBLEMS Type Condition ICD9-CM Code FBB23-AK Code Onset Dates Condition Status SNOMED Code Problem Orthostatic hypertension I10 Active 12124265 Problem Murmur R01.1 Active 678526826 Problem Tunnel vision, unspecified laterality H53.489 Active 862301713 Problem Panic disorder without agoraphobia F41.0 Active 40052123 Problem Acquired hypothyroidism E03.9 Active 265528118 Problem Panic disorder F41.0 Active 766723208 Problem Panic disorder with agoraphobia F40.01 Active 52268141 Problem Undifferentiated schizophrenia F20.3 Active 160932875 Problem Depressive disorder, not elsewhere classified F32.9 Active 35763896 Problem Chronic posttraumatic stress disorder F43.12 Active 764946849 Problem Abuse, drug or alcohol F19.10 Active 47848427 Problem Social phobia F40.10 Active 01021024 Problem Sleep apnea in adult G47.33 Active 12238554 Problem Fatty liver K76.0 Active 834095355 Problem Restless legs syndrome G25.81 Active 314215085 Problem Encounter for therapeutic drug level monitoring Z51.81 Active 191480716 Problem Obesity E66.9 Active 873554391 Problem Tachycardia R00.0 Active 1672165 Problem Neuropathy G62.9 Active 149675566 Problem Shortness of breath R06.02 Active 886655525 ALLERGIES Substance Reaction Event Type Date Status N.K.D.A. Unknown Non Drug Allergy May, Unknown SOCIAL HISTORY No smoking Hx information available PLAN OF CARE Activity Details Follow Up prn Reason:1 hr te VITAL SIGNS Height 67 in 2016-05-09 Blood pressure systolic 138 mmHg 2016-05-09 Blood pressure diastolic 85 mmHg 2016-05-09 MEDICATIONS Medication Instructions Dosage Frequency Start Date End Date Duration Status Neurontin 800 MG Orally 2 times a day 1 tablet 12h Aug, Active Levothyroxine Sodium 100 MCG Orally Once a day 1 tablet 24h 30 Sep, 2015 Active [place] 5-325 MG Orally every 6 hrs 1 tablet as needed 6h May, May, 4 days Active Clonazepam 1 MG Orally at bedtime 1 tablet Apr, Active Amoxicillin 500 MG Orally 4 times a day 1 capsule 6h May, May, 7 days Active Loxapine Succinate 10 mg Orally 1 times a day 1 capsule October, Active [place] Carbonate 300 MG Orally 1 cap in AM and 2 cap at bedtime 1 capsule Active Breo Ellipta 100-25 MCG/INH Inhalation Once a day 1 puff 24h 20 Dec, 2015 90 days Active Abilify 10 mg Orally Take 1.5 tabs for one week then 2 tabs per day and continue 1 tablet Jan, Active Trazodone HCl 150 MG Orally for sleep 1 tablet at bedtime as needed Active RESULTS No Results PROCEDURES Procedure Date Ordered Related Diagnosis Body Site LTD ORAL EVALUATION - PROBLEM FOCUS May 09, 2016 BITEWING - SINGLE FILM May 09, 2016 IMMUNIZATIONS No Known Immunizations
--- OUTSIDE RECORDS SUMMARY | 2018-09-02 18:33 | XMS REPORT ---
Author Author TERRENCE Bustamante [facility] Address Unknown Care Team Providers Care Curtain Stretcher Assembler Name Role Phone aleksandrTonia TERRENCE Unavailable PROBLEMS Type Condition ICD9-CM Code [id number] Code Onset Dates Condition Status SNOMED Code Problem Orthostatic hypertension I10 Active 37739182 Problem Murmur R01.1 Active 675403229 Problem Tunnel vision, unspecified laterality H53.489 Active 840178622 Problem Panic disorder without agoraphobia F41.0 Active 93778852 Problem Acquired hypothyroidism E03.9 Active 214348284 Problem Panic disorder F41.0 Active 333719355 Problem Panic disorder with agoraphobia F40.01 Active 51089127 Problem Undifferentiated schizophrenia F20.3 Active 229240019 Problem Depressive disorder, not elsewhere classified F32.9 Active 06454700 Problem Chronic posttraumatic stress disorder F43.12 Active 616102123 Problem Abuse, drug or alcohol F19.10 Active 46994831 Problem Social phobia F40.10 Active 84398115 Problem Sleep apnea in adult G47.33 Active 02156654 Problem Fatty liver K76.0 Active 417048582 Problem Restless legs syndrome G25.81 Active 714427907 Problem Encounter for therapeutic drug level monitoring Z51.81 Active 121080782 Problem Obesity E66.9 Active 888530945 Problem Tachycardia R00.0 Active 1014267 Problem Neuropathy G62.9 Active 735142951 Problem Shortness of breath R06.02 Active 080830444 ALLERGIES Substance Reaction Event Type Date Status N.K.D.A. Unknown Non Drug Allergy Jun, Unknown SOCIAL HISTORY No smoking Hx information available PLAN OF CARE Activity Details Follow Up prn Reason:zulema/hygiene VITAL SIGNS Height 67 in 2016-06-20 Blood pressure systolic 148 mmHg 2016-06-20 Blood pressure diastolic 95 mmHg 2016-06-20 MEDICATIONS Medication Instructions Dosage Frequency Start Date End Date Duration Status Levothyroxine Sodium 100 MCG Orally Once a day 1 tablet 24h 30 Sep, 2015 Active Neurontin 800 MG Orally 2 times a day 1 tablet 12h Aug, Active Breo Ellipta 100-25 MCG/INH Inhalation Once a day 1 puff 24h Dec, 90 days Active Clonazepam 1 MG Orally at bedtime 1 tablet Apr, Active Aristada 882 MG/3.2ML 3.2 ml May, 30 day(s) Active Abilify 10 mg Orally Take 1.5 tabs for one week then 2 tabs per day and continue 1 tablet Jan, Active [place] Carbonate 300 MG Orally 1 cap in AM and 2 cap at bedtime 1 capsule Active Trazodone HCl 150 MG Orally for sleep 1 tablet at bedtime as needed Active RESULTS No Results PROCEDURES Procedure Date Ordered Related Diagnosis Body Site EXTRAC ERUPTED TOOTH/EXPOSED ROOT Jun 20, 2016 EXTRAC ERUPTED TOOTH/EXPOSED ROOT Jun 20, 2016 EXTRAC ERUPTED TOOTH/EXPOSED ROOT Jun 20, 2016 EXTRAC ERUPTED TOOTH/EXPOSED ROOT Jun 20, 2016 IMMUNIZATIONS No Known Immunizations
--- OUTSIDE RECORDS SUMMARY | 2018-09-02 18:33 | XMS REPORT ---
Author Author JOSE LARRY Organization [facility] Address [address] [place] [address] Care Team Providers Care Per Diem Clerk Name Role Phone JOSE LARRY Unavailable PROBLEMS Type Condition ICD9-CM Code ZMU10-OB Code Onset Dates Condition Status SNOMED Code Problem Shortness of breath R06.02 Active 818888605 Problem Panic disorder with agoraphobia F40.01 Active 30270639 Problem Undifferentiated schizophrenia F20.3 Active 924704893 Problem Hypothyroid E03.9 Active 40213657 Problem Abuse, drug or alcohol F19.10 Active 00713917 Problem BMI 50.0-59.9, adult Z68.43 Active 275764881 Problem Sleep apnea in adult G47.33 Active 78467541 Problem Depressive disorder, not elsewhere classified F32.9 Active 33709841 Problem Chronic posttraumatic stress disorder F43.12 Active 849811967 Problem Panic disorder without agoraphobia F41.0 Active 56012869 Problem Panic disorder F41.0 Active 547377307 Problem Neuropathy G62.9 Active 992093762 Problem Social phobia F40.10 Active 94678867 Problem Fatty liver K76.0 Active 426720227 Problem Obesity E66.9 Active 768516622 Problem Orthostatic hypertension I10 Active 89868470 Problem Tunnel vision, unspecified laterality H53.489 Active 144171920 Problem Restless legs syndrome G25.81 Active 419012813 Problem Tachycardia R00.0 Active 9546011 Problem Encounter for therapeutic drug level monitoring Z51.81 Active 340476059 Problem Murmur R01.1 Active 667952956 ALLERGIES No Information ENCOUNTERS Encounter Location Date Diagnosis [facility] [address] [facility] [id number] [address] Dec, [facility] [id number] [address] October, [facility] [address] [address] Aug, [facility] [id number] [place] [address] 85744- 0504 Aug, Undifferentiated schizophrenia F20.3 ; Panic disorder with agoraphobia F40.01 ; Chronic posttraumatic stress disorder F43.12 and BMI 50.0- 59.9, adult Z68.43 [facility] [id number] [place] [address] 49995- 4136 05 Aug, 2017 [facility] [id number] [place] [address] 31208- 3032 Aug, [facility] [id number] [place] [address] 43659- 9464 Aug, Undifferentiated schizophrenia F20.3 [facility] [id number] [place] [address] 42467- 3466 Aug, Hypothyroid E03.9 [facility] [id number] [place] [address] 54976- 6657 Jul, Undifferentiated schizophrenia F20.3 [facility] [id number] [place] [address] 75922- 2895 Jul, [facility] [id number] [place] [address] 14658- 8840 Jul, Undifferentiated schizophrenia F20.3 ; Chronic posttraumatic stress disorder F43.12 ; Panic disorder with agoraphobia F40.01 and BMI 50.0-59.9, adult Z68.43 [facility] [id number] [place] [address] 12896- 8514 Jul, [facility] [id number] [place] [address] 28569- 5254 Jul, Acute pain of right shoulder M25.511 ; High risk medication use Z79.899 ; Needle stick injury W27.3XXA ; Hypothyroid E03.9 and BMI 50.0-59.9 , adult Z68.43 [facility] [address] [address] 3909 Jun, Undifferentiated schizophrenia F20.3 [facility] [id number] [place] [address] 83688- 7077 14 Jun, 2017 Undifferentiated schizophrenia F20.3 ; Panic disorder without agoraphobia F41.0 ; Chronic posttraumatic stress disorder F43.12 and BMI 50.0-59.9, adult Z68.43 [facility] [id number] [place] [address] 61013- 4465 May, [facility] [id number] [place] [address] 11900- 2222 May, [facility] [id number] [place] [address] 72591- 1532 May, Undifferentiated schizophrenia F20.3 [facility] [id number] [place] [address] 46219- 1939 May, [facility] [id number] [place] [address] 21909- 7135 May, [facility] [id number] [place] [address] 59657- 3277 May, Hypothyroid E03.9 [facility] [id number] [place] [address] 64117- 2804 May, [facility] [id number] [place] [address] 81263- 9368 May, [facility] [id number] [place] [address] 51348- 3534 07 May, 2017 Chronic posttraumatic stress disorder F43.12 ; Panic disorder with agoraphobia F40.01 ; Undifferentiated schizophrenia F20.3 ; BMI 40.0-44.9, adult Z68.41 and Obesity E66.9 [facility] [id number] [place] [address] 84454- 0198 May, Shortness of breath R06.02 [facility] [id number] [address]- 0583 May, [facility] [id number] [place] [address] 52045- 2169 Apr, Undifferentiated schizophrenia F20.3 [facility] [id number] [place] [address] 17887- 4502 Apr, [facility] [id number] [place] [address] 68051- 6632 Apr, [facility] [id number] [place] [address] 79748- 7104 Mar, Undifferentiated schizophrenia F20.3 ; Panic disorder without agoraphobia F41.0 and Chronic posttraumatic stress disorder F43.12 [facility] [id number] [place] [address] 08015- 5285 Mar, Undifferentiated schizophrenia F20.3 [facility] [id number] [place] [address] 43603- 0248 18 Mar, 2017 [facility] [id number] [place] [address] 57123- 2376 08 Mar, 2017 [facility] [id number] [address]- 2564 Mar, [facility] [id number] [place] [address] 27575- 0223 Jan, Undifferentiated schizophrenia F20.3 [facility] [id number] [address]- 2425 Jan, [facility] [id number] [place] [address] 21061- 2711 Jan, [facility] [id number] [address]- 2213 Jan, [facility] [address] [id number] [id number] Dec, Needle stick injury W27.3XXA [facility] [id number] [place] [address] 73977- 9716 Dec, Needle stick injury W27.3XXA [facility] [id number] [place] [address] 29399- 2867 Dec, Undifferentiated schizophrenia F20.3 [facility] [id number] [place] [address] 97690- 4893 Dec, [facility] [id number] [place] [address] 99061- 0224 Dec, [facility] [id number] [place] [address] 64725- 7290 Dec, Undifferentiated schizophrenia F20.3 ; Panic disorder with agoraphobia F40.01 and Chronic posttraumatic stress disorder F43.12 [facility] [id number] [place] [address] 89672- 5075 Dec, [facility] [id number] [place] [address] 78505- 9894 October, [facility] [id number] [place] [address] 98170- 2409 October, Undifferentiated schizophrenia F20.3 [facility] [id number] [place] [address] 52184- 4300 October, [facility] [id number] [place] [address] 54615- 6456 October, [facility] [id number] [place] [address] 91314- 8698 Oct, Undifferentiated schizophrenia F20.3 ; Panic disorder with agoraphobia F40.01 ; Chronic posttraumatic stress disorder F43.12 and Obesity E66.9 [facility] [address] [address]- 5395 Oct, [facility] [id number] [place] [address] 52657- 3860 Oct, [facility] [id number] [address]- 4859 Aug, Undifferentiated schizophrenia F20.3 [facility] [id number] [place] [address] 91758- 9616 Aug, [facility] [id number] [place] [address] 43299- 9343 Aug, Muscle spasm M62.838 [facility] [id number] [place] [address] 71044- 3154 Aug, Undifferentiated schizophrenia F20.3 [facility] [id number] [place] [address] 65828- 9440 Aug, Undifferentiated schizophrenia F20.3 ; Panic disorder with agoraphobia F40.01 ; Chronic posttraumatic stress disorder F43.12 ; High risk medication use Z79.899 and Social phobia F40.10 [facility] [id number] [place] [address] 00526- 8189 Aug, Undifferentiated schizophrenia F20.3 [facility] [id number] [place] [address] 08094- 0818 Aug, [facility] [id number] [place] [address] 88051- 6326 14 Aug, 2016 Acute non-recurrent maxillary sinusitis J01.00 [facility] [id number] [place] [address] 42051- 4871 Aug, [facility] [id number] [place] [address] 35569- 6664 Aug, [facility] [id number] [place] [address] 54478- 2132 Jul, Undifferentiated schizophrenia F20.3 [facility] [address] [address]- 9378 Jul, Schizophrenia, undifferentiated F20.3 ; Social phobia F40.10 ; Post-traumatic stress disorder F43.10 ; Panic disorder F41.0 and Depressive disorder, not elsewhere classified F32.9 [facility] [id number] [place] [address] 45529- 0710 Jul, [facility] [id number] [place] [address] 50430- 9235 Jul, Schizophrenia, undifferentiated F20.3 ; Social phobia F40.10 ; Post-traumatic stress disorder F43.10 ; Panic disorder F41.0 and Depressive disorder, not elsewhere classified F32.9 [facility] [id number] [place] [address] 25584- 2194 Jul, [facility] [id number] [place] [address] 19875- 8770 Jul, Undifferentiated schizophrenia F20.3 ; Panic disorder with agoraphobia F40.01 ; Social phobia F40.10 ; Obesity E66.9 and Chronic posttraumatic stress disorder F43.12 [facility] [id number] [place] [address] 87011- 6557 Jun, [facility] [id number] [place] [address] 01057- 8117 Jun, [facility] [id number] [place] [address] 79318- 7966 Jun, Dental caries K02.9 [facility] [id number] [place] [address] 69911- 3123 Jun, Undifferentiated schizophrenia F20.3 [facility] [id number] [place] [address] 59367- 8683 May, [facility] [id number] [place] [address] 83648- 6183 May, Undifferentiated schizophrenia F20.3 ; Panic disorder with agoraphobia F40.01 and Chronic post-traumatic stress disorder (PTSD) F43.12 [facility] [id number] [place] [address] 81693- 9606 May, [facility] [id number] [place] [address] 00355- 4193 May, Undifferentiated schizophrenia F20.3 [facility] [id number] [place] [address] 44618- 1827 May, [facility] [id number] [place] [address] 59980- 6680 May, Dental examination Z01.20 [facility] [id number] [place] [address] 18652- 1417 Apr, Undifferentiated schizophrenia F20.3 ; PTSD (post-traumatic stress disorder) F43.10 and Obesity E66.9 [facility] [id number] [place] [address] 11119- 1441 Apr, [facility] [id number] [place] [address] 22177- 1932 Mar, [facility] [id number] [place] [address] 96760- 2938 Mar, [facility] [id number] [place] [address] 07413- 1435 Jan, Shortness of breath R06.02 and Bipolar disorder with psychotic features F31.9 [facility] [id number] [place] [address] 93791- 0753 Jan, [facility] [id number] [place] [address] 04974- 6129 Jan, Increased intracranial pressure G93.2 ; Visual disturbance H53.9 and Bipolar II disorder F31.81 [facility] [id number] [place] [address] 04967- 4154 Jan, [facility] [id number] [place] [address] 14311- 2300 Jan, [facility] [id number] [place] [address] 29361- 5747 Jan, [id number] [place] [address] 40432- 8137 Jan, Acquired hypothyroidism E03.9 ; Depression F32.9 and Insomnia G47.00 [place] [address] 16492- 9909 Jan, Exertional dyspnea R06.09 ; Heart palpitations R00.2 ; Hyperlipidemia, unspecified hyperlipidemia type E78.5 ; Hypothyroidism, unspecified type E03.9 and Hypokalemia E87.6 [place] [address] 12417- 8195 Dec, PTSD (post-traumatic stress disorder) F43.10 ; Depression F32.9 ; Insomnia G47.00 and Bipolar disorder with psychotic features F31.9 [place] [address] 00067- 2635 Dec, Increased intracranial pressure G93.2 [address] [address] 05400- 5421 Dec, [address] 04645- 2605 Dec, Shortness of breath R06.02 [address] [address] 33402- 4585 Dec, Visual disturbance H53.9 and Headache, unspecified headache type R51 [place] [address] 87417- 3367 Dec, Insomnia G47.[address] 85195- 6466 Dec, Murmur R01.[address] 17151- 6367 Dec, Murmur R01.1 ; Tunnel vision, unspecified laterality H53.489 ; Orthostatic hypertension I10 ; Shortness of breath R06.02 and Tachycardia R00.0 [place] [id number] [address]- 6453 Dec, [facility] [id number] [place] [address] 88905- 3627 Dec, Hypothyroid E03.9 and Bipolar 1 disorder F31.9 [facility] [id number] [place] [address] 59263- 9168 Dec, Bipolar 1 disorder F31.9 [facility] [id number] [place] [address] 21486- 9110 Dec, [facility] [id number] [place] [address] 65703- 9662 October, Acquired hypothyroidism E03.9 ; Depression F32.9 and Insomnia G47.00 [facility] [id number] [place] [address] 41062- 5740 October, [facility] [id number] [place] [address] 31312- 0543 October, Bipolar 1 disorder F31.9 ; PTSD (post-traumatic stress disorder) F43.10 and Social phobia F40.10 [facility] [id number] [place] [address] 42421- 1889 Oct, Bipolar 1 disorder F31.9 and Insomnia G47.00 [facility] [id number] [place] [address] 38596- 0674 Oct, [facility] [id number] [place] [address] 83674- 5481 Oct, [facility] [id number] [place] [address] 20271- 8138 Aug, Hypothyroid E03.9 [facility] [id number] [place] [address] 03715- 0282 Aug, Encounter for therapeutic drug level monitoring Z51.81 and Other fpc (current) drug therapy Z79.899 [facility] [address] [place] [address]- 0704 17 Sep, 2015 Encounter for therapeutic drug level monitoring Z51.81 [facility] [address] 50186- 2027 15 Sep, 2015 Acquired hypothyroidism E03.9 ; Leg pain M79.606 and Bipolar 1 disorder F31.9 [facility] [address] 88567- 9053 Aug, [facility] [address] 62624- 4472 Aug, [facility] [address] 71121- [address] Jul, Thyroid disorder E07.9 [facility] [place] [address] [address] Jul, Rash R21 ; Abnormal LFTs R94.5 ; Acquired hypothyroidism E03.9 ; Sleep apnea in adult G47.33 and Fatty liver K76.0 [facility] [place] [address] [address] Jun, [facility] [place] [address] [address] Jun, [facility] [place] [address] [address] Jun, Bipolar II disorder F31.81 and Social phobia, generalized F40.11 [facility] [place] [id number] [place] [address] Mar, Bipolar II disorder 296.89 and Social phobia 300.23 [facility] [place] [address] [address] Dec, [facility] [place] [address] [address] Dec, [facility] [place] [address] [address] Dec, Bipolar II disorder in partial or unspecified remission 296.89 and Social phobia, generalized 300.23 [facility] [place] [id number] [place] [address] Oct, 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 [facility] [place] [id number] [address] Oct, [facility] [id number] [place] [address] Oct, [facility] [id number] [address] Aug, [facility] [id number] [place] [address]- [address] Aug, [facility] [id number] [place] [address]- [address] Aug, [facility] [id number] [place] [address]- [address] Aug, [facility] [place] [id number] [address] Aug, [facility] [place] [id number] [address] Aug, [facility] [place] [id number] [address] Aug, [facility] [place] [id number] [address] Aug, [facility] [id number] [address] Jul, [facility] [id number] [address] Jul, [facility] [id number] [address] Jul, [facility] [id number] [address] Jul, [facility] [address] [id number] [place] [address] Jul, [facility] [place] [facility] [address] [id number] [place] [address] Jul, [facility] [address] [id number] [place] [address] Jun, [facility] [place] [facility] [address] [id number] [place] [address] Jun, [facility] [place] [facility] [address] [id number] [place] [address] Jun, [facility] [place] [facility] [address] [id number] [place] [address] Jun, [facility] [address] [id number] [place] [address] Jun, [facility] [place] [facility] [address] [id number] [place] [address] Jun, [facility] [place] [facility] [address] [id number] [place] [address] 8598 Jun, [facility] [place] [facility] [address] [id number] [place] [address] 8676 Jun, [facility] [place] [facility] [address] [id number] [place] [address] 8980 Jun, [facility] [place] [facility] [address] [id number] [place] [address] Jun, [facility] [place] [facility] [address] [id number] [place] [address] 8819 Jun, [facility] [place] [facility] [address] [id number] [place] [address] 99[address] Jun, [facility] [place] [facility] [address] [id number] [place] [address] Jun, [facility] [place] [facility] [address] [id number] [place] [address]- 2754 Jun, [facility] [place] [facility] [address] [id number] [place] [address] 8899 Jun, [facility] [place] [facility] [address] [id number] [place] [address] 4087 Jun, [facility] [place] [facility] [address] [id number] [place] [address] 8961 May, [facility] [place] [facility] [address] [id number] [place] [address] 7745 May, [facility] [place] [facility] [address] [id number] [place] [address] 5416 May, [facility] [place] [facility] [address] [id number] [place] [address] 3877 May, [facility] [place] [facility] [address] [id number] [place] [address] 2069 May, [facility] [place] [facility] [address] [id number] [place] [address] 0948 May, [facility] [place] [facility] [address] [id number] [place] [address] 5615 Apr, [facility] [place] [facility] [address] [id number] [place] [address] 8367 Apr, [facility] [place] [facility] [address] [id number] [address] Apr, [facility] [place] [facility] [address] [id number] [place] [address]- 4660 Apr, [facility] [place] [facility] [address] [id number] [place] [address] 6501 Apr, [facility] [place] [facility] [address] [id number] [place] [address] 7096 Apr, [facility] [place] [facility] [address] [id number] [place] [address]- 1251 Mar, [facility] [place] [facility] [address] [id number] [place] [address] 2981 Mar, [facility] [place] [facility] [address] [id number] [place] [address] 6949 Mar, [facility] [place] [facility] [address] [id number] [place] [address] 4863 Mar, [facility] [place] [facility] [address] [id number] [place] [address] 5161 Jan, [facility] [place] [facility] [address] [id number] [place] [address] 0232 Jan, [facility] [place] [facility] [address] [id number] [place] [address] 9159 Jan, [facility] [place] [facility] [address] [id number] [place] [address]- 1747 Jan, [facility] [place] [facility] [address] [id number] [place] [address]- 6095 Jan, [facility] [place] [facility] [address] [id number] [place] [address] 2503 Jan, [facility] [place] [facility] [address] [id number] [place] [address] 6550 Dec, [facility] [place] [facility] [address] [id number] [place] [address] 4833 Dec, [facility] [place] [facility] [address] [id number] [place] [address]- 6670 Dec, [facility] [place] [facility] [address] [id number] [place] [address]- 2822 Dec, [facility] [place] [facility] [address] [id number] [place] [address]- 5349 Dec, [facility] [place] [facility] [address] [id number] [place] [address] 0669 Dec, [facility] [place] [facility] [address] [id number] [place] [address] 6053 October, [facility] [address] [id number] [place] [address] 7783 October, [facility] [address] [id number] [place] [address] October, [facility] [address] [id number] [place] [address] October, [facility] [address] [id number] [place] [address] 3633 October, [facility] [address] [id number] [place] [address]- 0210 October, [facility] [address] [id number] [place] [address] 6444 October, [facility] [address] [id number] [place] [address]- 1566 October, [facility] [address] [id number] [place] [address] 8146 Oct, [facility] [address] [id number] [place] [address]- 5887 Oct, [facility] [address] [id number] [place] [address] 9093 Oct, [facility] [place] [facility] [address] [id number] [place] [address]- 9163 Oct, [facility] [address] [id number] [place] [address] 6814 Oct, [facility] [place] [facility] [address] [id number] [place] [address]- 2061 Aug, [facility] [place] [facility] [address] [id number] [place] [address] 7346 Aug, [facility] [place] [facility] [address] [id number] [place] [address] 0387 Aug, [facility] [address] [id number] [place] [address] 1245 Aug, [facility] [place] [facility] [address] [id number] [place] [address]- 4170 Aug, [facility] [place] [facility] [address] [id number] [place] [address]- 3573 Aug, [facility] [place] [facility] [address] [id number] [place] [address]- 8234 Jul, [facility] [place] [facility] [address] [id number] [place] [address]- 3992 Jul, [facility] [place] [facility] [address] [id number] [place] [address]- 2378 Jul, [facility] [place] [facility] [address] [facility] [id number] [place] [address]- 2045 Jul, [facility] [place] [facility] [address] [id number] [place] [address]- 9455 Jul, [facility] [place] [facility] [address] [id number] [place] [address]- 6725 Jul, [facility] [place] [facility] [address] [facility] [id number] [place] [address]- 7671 Jun, [facility] [place] [facility] [address] [id number] [place] [address]- 8694 Jun, [facility] [place] [facility] [address] [id number] [place] [address]- 5805 Jun, [facility] [place] [facility] [address] [id number] [place] [address]- 5445 Jun, [facility] [place] [facility] [address] [id number] [place] [address]- 5888 Jun, [facility] [place] [facility] [address] [facility] [id number] [place] [address]- 9984 Jun, [facility] [place] [facility] [address] [id number] [place] [address]- 7721 04 May, 2013 [facility] [address] [id number] [place] [address]- 3245 May, [facility] [place] [facility] [address] [id number] [place] [address]- 4346 Apr, [facility] [place] [facility] [address] [id number] [place] [address]- 1213 Apr, [facility] [place] [facility] [address] [id number] [place] [address]- 2441 Apr, [facility] [place] [facility] [address] [id number] [place] [address]- 3232 Apr, [facility] [place] [facility] [address] [id number] [place] [address]- 2302 Apr, [facility] [place] [facility] [address] [id number] [place] [address]- 2531 Apr, [facility] [place] [facility] [address] [id number] [place] [address]- 3305 Apr, [facility] [place] [facility] [address] [id number] [place] [address]- 1754 Apr, [facility] [place] [facility] [address] [id number] [place] [address]- 4508 Apr, [facility] [place] [facility] [address] [id number] [place] [address]- 4043 Apr, [facility] [place] [facility] [address] [id number] [place] [address]- 1667 Apr, [facility] [place] [facility] [address] [id number] [place] [address]- 4718 Mar, [facility] [place] [facility] [address] [id number] [place] [address]- 6785 Mar, [facility] [place] [facility] [address] [id number] [place] [address]- 1003 Mar, [facility] [place] [facility] [address] [id number] [place] [address]- 1370 14 Mar, 2013 [facility] [place] [facility] [address] [id number] [place] [address]- 1807 Mar, [facility] [place] [facility] [address] [id number] [place] [address]- 8934 Mar, [facility] [place] [facility] [address] [id number] [place] [address]- 1861 Mar, [facility] [place] [facility] [address] [id number] [place] [address]- 2692 Jan, [facility] [place] [facility] [address] [id number] [place] [address]- 3544 Jan, [facility] [place] [facility] [address] [id number] [place] [address]- 4101 Jan, [facility] [place] [facility] [address] [id number] [place] [address]- 9936 Jan, [facility] [place] [facility] [address] [id number] [place] [address]- 6160 Jan, [facility] [place] [facility] [address] [id number] [place] [address]- 6464 Jan, [facility] [place] [facility] [address] [id number] [place] [address]- 8070 Jan, [facility] [place] [facility] [address] [id number] [place] [address]- 4865 Dec, [facility] [place] [facility] [address] [id number] [place] [address]- 2644 Dec, [facility] [place] [facility] [address] [id number] [place] [address]- 6254 Dec, [facility] [place] [facility] [address] [id number] [place] [address]- 2734 Dec, [facility] [place] [facility] [address] [id number] [place] [address]- 9276 08 Dec, 2012 [facility] [address] [id number] [place] [address]- 4072 08 Dec, 2012 [facility] [address] [id number] [place] [address]- 4456 October, [facility] [address] [id number] [place] [address]- 1807 October, [facility] [address] [id number] [place] [address]- 9371 October, [facility] [address] [id number] [place] [address]- 5604 October, [facility] [address] [id number] [place] [address]- 1912 Oct, [facility] [address] [id number] [place] [address]- 9841 Oct, [facility] [address] [id number] [place] [address]- 2398 Aug, [facility] [address] [id number] [place] [address]- 3536 Aug, [facility] [address] [id number] [place] [address]- 7735 Aug, [facility] [address] [id number] [place] [address]- 6932 Aug, [facility] [place] [facility] [address] [id number] [place] [address]- 7736 Aug, [facility] [place] [facility] [address] [id number] [place] [address]- 9023 Aug, [facility] [place] [facility] [address] [id number] [place] [address]- 1919 Aug, [facility] [place] [facility] [address] [id number] [place] [address]- 7616 Aug, [facility] [place] [facility] [address] [id number] [place] [address]- 0006 19 Aug, 2012 [facility] [address] [id number] [place] [address]- 3266 11 Aug, 2012 [facility] [place] [facility] [address] [id number] [place] [address]- 2546 10 Aug, 2012 [facility] [place] [facility] [address] [id number] [place] [address] 2546 08 Aug, 2012 [facility] [place] [facility] [address] [id number] [place] [address] 2547 Aug, [facility] [place] [facility] [address] [id number] [place] [address]- 0246 Aug, [facility] [address] [id number] [place] [address]- 0306 Jul, [facility] [address] [id number] [place] [address]- 3919 Jul, [facility] [address] [id number] [place] [address]- 5842 Jul, [facility] [address] [id number] [place] [address]- 4886 Jul, [facility] [place] [facility] [address] [id number] [place] [address]- 1289 Jun, [facility] [place] [facility] [address] [id number] [place] [address]- 2547 Jun, [facility] [place] [facility] [address] [id number] [place] [address] 2546 Jun, [facility] [place] [facility] [address] [id number] [place] [address]- 2546 Jun, [facility] [place] [facility] [address] [id number] [place] [address]- 2544 May, [facility] [place] [facility] [address] [id number] [place] [address]- 9636 May, IMMUNIZATIONS No Known Immunizations SOCIAL HISTORY Never Assessed REASON FOR VISIT CPAP Supplies PLAN OF CARE VITAL SIGNS MEDICATIONS Unknown [...]
--- OUTSIDE RECORDS SUMMARY | 2018-09-02 18:34 | XMS REPORT ---
Author Author JOSE LARRY [facility] Address [address] [place] [address] Care Team Providers Care Rn Stars Name Role Phone JOSE LARRY Unavailable PROBLEMS Type Condition ICD9-CM Code [id number] Code Onset Dates Condition Status SNOMED Code Problem Murmur R01.1 Active 252855085 Problem Shortness of breath R06.02 Active 246226626 Problem Tachycardia R00.0 Active 2443154 Problem Depressive disorder, not elsewhere classified F32.9 Active 93006984 Problem Acquired hypothyroidism E03.9 Active 947880215 Problem Panic disorder without agoraphobia F41.0 Active 50486218 Problem Panic disorder with agoraphobia F40.01 Active 40947295 Problem Undifferentiated schizophrenia F20.3 Active 357114081 Problem Panic disorder F41.0 Active 738128196 Problem Chronic posttraumatic stress disorder F43.12 Active 555703041 Problem Fatty liver K76.0 Active 064735131 Problem Obesity E66.9 Active 601970704 Problem Sleep apnea in adult G47.33 Active 85238680 Problem Abuse, drug or alcohol F19.10 Active 63858233 Problem Neuropathy G62.9 Active 462557456 Problem Encounter for therapeutic drug level monitoring Z51.81 Active 952514024 Problem Social phobia F40.10 Active 47828466 Problem Orthostatic hypertension I10 Active 19407046 Problem Restless legs syndrome G25.81 Active 044072365 Problem Tunnel vision, unspecified laterality H53.489 Active 892755209 ALLERGIES No Information SOCIAL HISTORY Never Assessed [...] alcoholism Medical History Fatty liver Medical History Abuse, drug or alcohol (no use since 2009) Medical History Depression Medical History Insomnia Medical History Bipolar disorder with psychotic features Medical History Bipolar 1 disorder Medical History Post-traumatic stress disorder Surgical History tubal ligation Surgical History section x3 Surgical History orthopedic surgery right ankle
--- OUTSIDE RECORDS SUMMARY | 2018-09-02 18:34 | XMS REPORT ---
Author Author DIGNA GUERRERO [facility] Address [address] [place] [address] Care Team Providers Care Filling Mixer Name Role Phone DIGNA GUERRERO Unavailable PROBLEMS Type Condition ICD9-CM Code [id number] Code Onset Dates Condition Status SNOMED Code Problem Murmur R01.1 Active 990384399 Problem Shortness of breath R06.02 Active 706961274 Problem Tachycardia R00.0 Active 0124883 Problem Depressive disorder, not elsewhere classified F32.9 Active 43508059 Problem Acquired hypothyroidism E03.9 Active 650052597 Problem Panic disorder without agoraphobia F41.0 Active 04245898 Problem Panic disorder with agoraphobia F40.01 Active 44929120 Problem Undifferentiated schizophrenia F20.3 Active 526279023 Problem Panic disorder F41.0 Active 988972414 Problem Chronic posttraumatic stress disorder F43.12 Active 682902546 Problem Fatty liver K76.0 Active 854878068 Problem Obesity E66.9 Active 658802394 Problem Sleep apnea in adult G47.33 Active 19706338 Problem Abuse, drug or alcohol F19.10 Active 25649319 Problem Neuropathy G62.9 Active 948053182 Problem Encounter for therapeutic drug level monitoring Z51.81 Active 549240444 Problem Social phobia F40.10 Active 66237106 Problem Orthostatic hypertension I10 Active 11734932 Problem Restless legs syndrome G25.81 Active 844467414 Problem Tunnel vision, unspecified laterality H53.489 Active [id number] ALLERGIES No Information SOCIAL HISTORY Never Assessed [...]
--- OUTSIDE RECORDS SUMMARY | 2018-09-02 18:34 | XMS REPORT ---
Author Author JOSE LARRY [facility] Address [address] [place] [address] Care Team Providers Care Center Medical Director Name Role Phone JOSE LARRY Unavailable PROBLEMS Type Condition ICD9-CM Code [id number] Code Onset Dates Condition Status SNOMED Code Problem Murmur R01.1 Active 022879737 Problem Shortness of breath R06.02 Active 720059441 Problem Tachycardia R00.0 Active 7969903 Problem Depressive disorder, not elsewhere classified F32.9 Active 29005134 Problem Acquired hypothyroidism E03.9 Active 749400195 Problem Panic disorder without agoraphobia F41.0 Active 51881426 Problem Panic disorder with agoraphobia F40.01 Active 45596871 Problem Undifferentiated schizophrenia F20.3 Active 139191720 Problem Panic disorder F41.0 Active 815375798 Problem Chronic posttraumatic stress disorder F43.12 Active 557978479 Problem Fatty liver K76.0 Active 439797267 Problem Obesity E66.9 Active 859468395 Problem Sleep apnea in adult G47.33 Active 02987593 Problem Abuse, drug or alcohol F19.10 Active 65162805 Problem Neuropathy G62.9 Active 126638591 Problem Encounter for therapeutic drug level monitoring Z51.81 Active 913846344 Problem 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 Active 84999576 Problem Orthostatic hypertension I10 Active 80713893 Problem Restless legs syndrome G25.81 Active 007429530 Problem Tunnel vision, unspecified laterality H53.489 Active 841504489 ALLERGIES No Known Allergies SOCIAL HISTORY Never Assessed PLAN OF CARE Activity Details Follow Up 6 Months Reason:WWE VITAL SIGNS Height 67 in 2016-09-12 Weight 344.8 lbs 2016-09-12 Temperature 98.2 degrees Fahrenheit 2016-09-12 Heart Rate 104 bpm 2016-09-12 Respiratory Rate 22 2016-09-12 BMI 54.00 kg/m2 2016-09-12 Blood pressure systolic 140 mmHg 2016-09-12 Blood pressure diastolic 70 mmHg 2016-09-12 MEDICATIONS Medication Instructions Dosage Frequency Start Date End Date Duration Status Levothyroxine Sodium 100 MCG Orally Once a day 1 tablet 24h Aug, Active Breo Ellipta 100-25 MCG/INH Inhalation Once a day 1 puff 24h 20 Dec, 2015 90 days Active Cantu Addition Carbonate 300 MG Orally 1 cap in AM and 2 cap at bedtime 1 capsule Active Trazodone HCl 150 MG Orally for sleep 1 tablet at bedtime Active Neurontin 800 MG Orally 2 times a day 1 tablet 12h Aug, Active Aristada 882 MG/3.2ML 3.2 ml May, [...]
--- OUTSIDE RECORDS SUMMARY | 2018-09-02 18:35 | XMS REPORT | Continuity of Care Document ---
Author Author [facility] Address Unknown Phone Unavailable Allergies Active Description Code Type Severity Reaction Onset Reported/Identified Relationship to Patient Clinical Status Yes No Known Drug Allergies [id number] Drug Allergy Unknown N/A 12/29/2016 Medications There is no data. Problems Date Dx Coded Attending Type Code Diagnosis Diagnosed By 05/28/2012 JOSE LARRY APRN 296.30 MAJOR DEPRESSIVE AFFECTIVE DISORDER RECURRENT EPISODE UNSPECIFIED DEGREE 05/28/2012 JOSE LARRY APRN 356.9 NEUROPATHY 05/28/2012 JOSE LARRY APRN 719.43 PAIN IN JOINT INVOLVING FOREARM 05/28/2012 JOSE LARRY APRN 790.29 HYPERGLYCEMIA 05/28/2012 KATHARINE CALIX DO 296.30 [...] 05/28/2012 WILLIS CUETO PHD 790.29 HYPERGLYCEMIA 05/28/2012 JAIMEE RAO APRN 296.30 MAJOR DEPRESSIVE AFFECTIVE DISORDER RECURRENT EPISODE UNSPECIFIED DEGREE 05/28/2012 JAIMEE RAO APRN 356.9 NEUROPATHY 05/28/2012 MAIRA WASHING MACHINE LOADER, JAIMEE A 719.43 PAIN IN JOINT INVOLVING FOREARM 05/28/2012 [...] EPISODE UNSPECIFIED DEGREE 05/28/2012 KATHARINE CALIX DO F 356.9 NEUROPATHY 05/28/2012 KATHARINE CALIX DO F 719.43 PAIN IN JOINT INVOLVING FOREARM 05/28/2012 KATHARINE CALIX DO F 790.29 HYPERGLYCEMIA 05/28/2012 WILLIS CUETO PHD 296.30 [...] 05/28/2012 NIRU SIN JR 356.9 NEUROPATHY 05/28/2012 SIN JR, NIRU S 719.43 PAIN IN JOINT INVOLVING FOREARM 05/28/2012 NIRU SIN JR S 790.29 HYPERGLYCEMIA 05/28/2012 NIRU SIN JR S [...] 05/28/2012 NIRU SIN JR 790.29 HYPERGLYCEMIA 05/28/2012 SIMONE TEJADA APRN 296.30 [...] BROWN JOSE S 356.9 NEUROPATHY 05/28/2012 KENDY BROWN JOSE S 719.43 PAIN IN JOINT INVOLVING FOREARM 05/28/2012 KENDY WASHING MACHINE LOADER, JOSE S 790.29 HYPERGLYCEMIA 05/28/2012 KADEN WASHING MACHINE LOADER, BRYAN 296.30 MAJOR DEPRESSIVE AFFECTIVE DISORDER RECURRENT EPISODE UNSPECIFIED DEGREE 05/28/2012 KADEN WASHING MACHINE LOADER, BRYAN 356.9 NEUROPATHY 05/28/2012 KADEN WASHING MACHINE LOADER, BRYAN 719.43 PAIN IN JOINT INVOLVING FOREARM 05/28/2012 KADEN WASHING MACHINE LOADER, BRYAN 790.29 HYPERGLYCEMIA 05/28/2012 KADEN WASHING MACHINE LOADER, BRYAN 296.30 MAJOR DEPRESSIVE AFFECTIVE DISORDER RECURRENT EPISODE UNSPECIFIED DEGREE 05/28/2012 KADEN WASHING MACHINE LOADER, BRYAN 356.9 NEUROPATHY 05/28/2012 KADEN WASHING MACHINE LOADER, BRYAN 719.43 PAIN IN JOINT INVOLVING FOREARM 05/28/2012 KADEN WASHING MACHINE LOADER, BRYAN 790.29 HYPERGLYCEMIA 05/28/2012 KADEN WASHING MACHINE LOADER, BRYAN 296.30 MAJOR DEPRESSIVE AFFECTIVE DISORDER RECURRENT EPISODE UNSPECIFIED DEGREE 05/28/2012 KADEN WASHING MACHINE LOADER, BRYAN 356.9 NEUROPATHY 05/28/2012 KADEN WASHING MACHINE LOADER, BRYAN 719.43 PAIN IN JOINT INVOLVING FOREARM 05/28/2012 KADEN WASHING MACHINE LOADER, BRYAN 790.29 HYPERGLYCEMIA 05/28/2012 KENDY WASHING MACHINE LOADER, JOSE S 296.30 MAJOR DEPRESSIVE AFFECTIVE DISORDER RECURRENT EPISODE UNSPECIFIED DEGREE 05/28/2012 KENDY HILLN, JOSE S 356.9 NEUROPATHY 05/28/2012 KENDYJULIEN HILLN, JOSE S 719.43 PAIN IN JOINT INVOLVING FOREARM 05/28/2012 KENDY WASHING MACHINE LOADER, JOSE S 790.29 HYPERGLYCEMIA 05/28/2012 KADEN WASHING MACHINE LOADER, BRYAN 296.30 MAJOR DEPRESSIVE AFFECTIVE DISORDER RECURRENT EPISODE UNSPECIFIED DEGREE 05/28/2012 KADEN WASHING MACHINE LOADER, BRYAN 356.9 NEUROPATHY 05/28/2012 KADEN WASHING MACHINE LOADER, BRYAN 719.43 PAIN IN JOINT INVOLVING FOREARM 05/28/2012 KADEN WASHING MACHINE LOADER, BRYAN 790.29 HYPERGLYCEMIA 05/28/2012 KENDY WASHING MACHINE LOADER, JOSE S 296.30 MAJOR DEPRESSIVE AFFECTIVE DISORDER RECURRENT EPISODE UNSPECIFIED DEGREE 05/28/2012 KENDY WASHING MACHINE LOADER, JOSE S 356.9 NEUROPATHY 05/28/2012 KENDY WASHING MACHINE LOADER, JOSE S 719.43 PAIN IN JOINT INVOLVING FOREARM 05/28/2012 KENDY WASHING MACHINE LOADER, JOSE S 790.29 HYPERGLYCEMIA 05/28/2012 BRYAN ALFONSO APRN 296.30 MAJOR DEPRESSIVE AFFECTIVE DISORDER RECURRENT EPISODE UNSPECIFIED DEGREE 05/28/2012 BRYAN ALFONSO APRN 356.9 NEUROPATHY 05/28/2012 BRYAN ALFONSO APRN 719.43 PAIN IN JOINT INVOLVING FOREARM [...] RAO APRNIDI A 296.90 MOOD DISORDER 07/25/2012 FELIX RAO APRNIDI A 307.47 SI DYSSOMNIA NOS 07/25/2012 FELIX RAO APRNIDI A V58.69 high risk medication 07/25/2012 296.90 [...] S V58.69 high risk medication 07/25/2012 SIMONE TEJADA APRN 296.90 MOOD DISORDER 07/25/2012 SIMONE TEJADA APRN 307.47 SI DYSSOMNIA NOS 07/25/2012 SIMONE TEJADA APRN V58.69 high risk medication 07/25/2012 SIMONE TEJADA APRN 296.90 MOOD DISORDER 07/25/2012 SIMONE TEJADA APRN 307.47 SI DYSSOMNIA NOS 07/25/2012 SIMONE TEJADA APRN V58.69 high risk medication 07/25/2012 ELZBIETA LARRY APRNA S 296.90 MOOD DISORDER 07/25/2012 GIOVANNY LARRY APRNNDA S 307.47 SI DYSSOMNIA NOS 07/25/2012 GIOVANNY LARRY APRNNDA S V58.69 high risk medication 07/25/2012 KADEN WASHING MACHINE LOADER, BRYAN 296.90 MOOD DISORDER 07/25/2012 KADEN WASHING MACHINE LOADER, BRYAN 307.47 SI DYSSOMNIA NOS 07/25/2012 KAEDN WASHING MACHINE LOADER, BRYAN V58.69 high risk medication 07/25/2012 KADEN WASHING MACHINE LOADER, BRYAN 296.90 MOOD DISORDER 07/25/2012 KADEN WASHING MACHINE LOADER, BRYAN 307.47 SI DYSSOMNIA NOS 07/25/2012 KADEN WASHING MACHINE LOADER, BRYAN V58.69 high risk medication 07/25/2012 KADEN WASHING MACHINE LOADER, BRYAN 296.90 MOOD DISORDER 07/25/2012 KADEN WASHING MACHINE LOADER, BRYAN 307.47 SI DYSSOMNIA NOS 07/25/2012 KADEN WASHING MACHINE LOADER, BRYAN V58.69 high risk medication 07/25/2012 KENDY BROWN JOSE S 296.90 MOOD DISORDER 07/25/2012 KENDY BROWN JOSE S 307.47 SI DYSSOMNIA NOS 07/25/2012 KENDY BROWN JOSE S V58.69 high risk medication 07/25/2012 KADEN WASHING MACHINE LOADER, BRYAN 296.90 MOOD DISORDER 07/25/2012 KADEN WASHING MACHINE LOADER, BRYAN 307.47 SI DYSSOMNIA NOS 07/25/2012 KADEN WASHING MACHINE LOADER, BRYAN V58.69 HIGH RISK MEDICATION 07/25/2012 KENDY BROWN JOSE S 296.90 MOOD DISORDER 07/25/2012 KENDY BROWN JOSE S 307.47 SI DYSSOMNIA NOS 07/25/2012 KENDY BROWN JOSE S V58.69 HIGH RISK MEDICATION 07/25/2012 KADEN WASHING MACHINE LOADER, BRYAN 296.90 MOOD DISORDER 07/25/2012 KADEN WASHING MACHINE LOADER, BRYAN 307.47 SI DYSSOMNIA NOS 07/25/2012 KADEN WASHING MACHINE LOADER, BRYAN V58.69 HIGH RISK MEDICATION 09/17/2012 JAIMEE RAO APRN A 278.00 OBESITY 09/17/2012 JAIMEE RAO APRN A V73.81 HPV SCREENING 09/17/2012 JAIMEE RAO APRN A V74.5 STD SCREEN 09/17/2012 JAIMEE RAO APRN A V76.2 CERVICAL CANCER SCREENING (PAP SMEAR) [...] KATHARINE CALIX DO V73.81 HPV SCREENING 09/17/2012 KATHARINE CALIX DO V74.5 STD SCREEN 09/17/2012 KATHARINE CALIX DO V76.2 CERVICAL CANCER SCREENING (PAP SMEAR) 09/17/2012 ROM PHD, WILLIS Oliveira 278.00 OBESITY 09/17/2012 ROM PINEDO, WILLIS Oliveira V73.81 HPV SCREENING 09/17/2012 ROM PINEDO, WILLIS Oliveira V74.5 STD SCREEN 09/17/2012 ROM PINEDO, WILLIS Oliveira V76.2 CERVICAL CANCER SCREENING (PAP [...] S 278.00 OBESITY 09/17/2012 NIRU SIN JR V73.81 [...] V76.2 CERVICAL CANCER SCREENING (PAP SMEAR) 09/17/2012 JOSE LARRY APRN S 278.00 OBESITY 09/17/2012 ELZBIETA LARRY APRNA S V73.81 HPV SCREENING 09/17/2012 GIOVANNY LARRY APRNNDA S V74.5 STD SCREEN 09/17/2012 GIOVANNY LARRY APRNNDA S V76.2 CERVICAL CANCER SCREENING (PAP SMEAR) 09/17/2012 KADEN WASHING MACHINE LOADER, BRYAN 278.00 OBESITY 09/17/2012 KADEN WASHING MACHINE LOADER, BRYAN V73.81 HPV SCREENING 09/17/2012 KADEN WASHING MACHINE LOADER, BRYAN V74.5 STD SCREEN 09/17/2012 KADEN WASHING MACHINE LOADER, BRYAN V76.2 CERVICAL CANCER SCREENING (PAP SMEAR) 09/17/2012 KADEN WASHING MACHINE LOADER, BRYAN 278.00 OBESITY 09/17/2012 KADEN WASHING MACHINE LOADER, RBYAN V73.81 HPV SCREENING 09/17/2012 KADEN WASHING MACHINE LOADER, BRYAN V74.5 STD SCREEN 09/17/2012 KADEN WASHING MACHINE LOADER, BRYAN V76.2 CERVICAL CANCER SCREENING (PAP SMEAR) 09/17/2012 KADEN WASHING MACHINE LOADER, BRYAN 278.00 OBESITY 09/17/2012 KADEN WASHING MACHINE LOADER, BRYAN V73.81 HPV SCREENING 09/17/2012 KADEN WASHING MACHINE LOADER, BRYAN V74.5 STD SCREEN 09/17/2012 KADEN WASHING MACHINE LOADER, BRYAN V76.2 CERVICAL CANCER SCREENING (PAP SMEAR) 09/17/2012 KENDY WASHING MACHINE LOADER, JOSE S 278.00 OBESITY 09/17/2012 KENDY WASHING MACHINE LOADER, JOSE S V73.81 HPV SCREENING 09/17/2012 KENDY WASHING MACHINE LOADER, JOSE S V74.5 STD SCREEN 09/17/2012 KENDY WASHING MACHINE LOADER, JOSE S V76.2 CERVICAL CANCER SCREENING (PAP SMEAR) 09/17/2012 KADEN WASHING MACHINE LOADER, BRYAN 278.00 OBESITY 09/17/2012 KADEN WASHING MACHINE LOADER, BRYAN V73.81 HPV SCREENING 09/17/2012 KADEN WASHING MACHINE LOADER, BRYAN V74.5 STD SCREEN 09/17/2012 KADEN WASHING MACHINE LOADER, BRYAN V76.2 CERVICAL CANCER SCREENING (PAP SMEAR) 09/17/2012 KENDY WASHING MACHINE LOADER, JOSE S 278.00 OBESITY 09/17/2012 KENDY WASHING MACHINE LOADER, JOSE S V73.81 HPV SCREENING 09/17/2012 KENDY WASHING MACHINE LOADER, JOSE S V74.5 STD SCREEN 09/17/2012 KENDY WASHING MACHINE LOADER, JOSE S V76.2 CERVICAL CANCER SCREENING (PAP SMEAR) 09/17/2012 KADEN WASHING MACHINE LOADER, BRYAN 278.00 OBESITY 09/17/2012 KADEN WASHING MACHINE LOADER, BRYAN V73.81 HPV SCREENING 09/17/2012 KADEN WASHING MACHINE LOADER, BRYAN V74.5 STD SCREEN 09/17/2012 KADEN WASHING MACHINE LOADER, BRYAN V76.2 CERVICAL CANCER SCREENING (PAP SMEAR) 02/12/2013 333.94 RESTLESS LEGS SYNDROME (RLS) 02/12/2013 333.94 RESTLESS LEGS SYNDROME (RLS) 02/12/2013 KATHARINE CALIX DO 333.94 RESTLESS LEGS SYNDROME (RLS) 02/12/2013 ROM PINEDO, WILLIS Oliveira 333.94 RESTLESS LEGS SYNDROME (RLS) [...] 333.94 RESTLESS LEGS SYNDROME (RLS) 02/12/2013 KENDY BROWN, JOSE S 333.94 RESTLESS LEGS SYNDROME (RLS) 02/12/2013 KADEN WASHING MACHINE LOADER, BRYAN 333.94 RESTLESS LEGS SYNDROME (RLS) 02/12/2013 KADEN WASHING MACHINE LOADER, BRYAN 333.94 RESTLESS LEGS SYNDROME (RLS) 02/12/2013 KADEN WASHING MACHINE LOADER, BRYAN 333.94 RESTLESS LEGS SYNDROME (RLS) 02/12/2013 KENDY WASHING MACHINE LOADER, JOSE S 333.94 RESTLESS LEGS SYNDROME (RLS) 02/12/2013 KADEN WASHING MACHINE LOADER, BRYAN 333.94 RESTLESS LEGS SYNDROME (RLS) 02/12/2013 KENDY BROWN, JOSE S 333.94 RESTLESS LEGS SYNDROME (RLS) 02/12/2013 KADEN WASHING MACHINE LOADER, BRYAN 333.94 RESTLESS LEGS SYNDROME (RLS) 04/02/2013 KATHARINE CALIX DO Ot 327.23 OBSTRUCTIVE SLEEP APNEA (ADULT) (PEDIATR 04/19/2013 DIGNA GUERRERO MD 296.89 MO BIPOLAR II 04/19/2013 DIGNA GUERRERO MD 300.23 AN SOCIAL PHOBIA 04/19/2013 NRIU SIN JR 296.89 MO BIPOLAR II 04/19/2013 NIRU SIN JR 300.23 AN SOCIAL PHOBIA 04/19/2013 SIN JR, NIRU S 296.89 MO BIPOLAR II 04/19/2013 JANUARY MELO NIRU S 300.23 AN SOCIAL PHOBIA 04/19/2013 DIGNA GUERRERO MD 296.89 MO BIPOLAR II 04/19/2013 DIGNA GUERRERO MD 300.23 AN SOCIAL PHOBIA 04/19/2013 NIRU SIN JR S 296.89 MO BIPOLAR II 04/19/2013 JANUARY MELO NIRU S 300.23 AN SOCIAL PHOBIA 04/19/2013 SIMONE TEJADA APRN D 296.89 MO BIPOLAR II 04/19/2013 GARDERIC WASHING MACHINE LOADER, SIMONE D 300.23 AN SOCIAL PHOBIA 04/19/2013 GARDERIC WASHING MACHINE LOADER, SIMONE D 296.89 MO BIPOLAR II 04/19/2013 GARDERIC BROWN SIMONE D 300.23 AN SOCIAL PHOBIA 04/19/2013 KENDY BROWN JOSE S 296.89 MO BIPOLAR II 04/19/2013 KENDY BROWN, JOSE S 300.23 AN SOCIAL PHOBIA 04/19/2013 KADEN WASHING MACHINE LOADER, BRYAN 296.89 MO BIPOLAR II 04/19/2013 KADEN WASHING MACHINE LOADER, BRYAN 300.23 AN SOCIAL PHOBIA 04/19/2013 KADEN WASHING MACHINE LOADER, BRYAN 296.89 MO BIPOLAR II 04/19/2013 KADEN WASHING MACHINE LOADER, BRYAN 300.23 AN SOCIAL PHOBIA 04/19/2013 KADEN WASHING MACHINE LOADER, BRYAN 296.89 MO BIPOLAR II 04/19/2013 KADEN WASHING MACHINE LOADER, BRYAN 300.23 AN SOCIAL PHOBIA 04/19/2013 KENDY BROWN JOSE S 296.89 MO BIPOLAR II 04/19/2013 KENDY BROWN, JOSE S 300.23 AN SOCIAL PHOBIA 04/19/2013 KADEN WASHING MACHINE LOADER, BRYAN 296.89 MO BIPOLAR II 04/19/2013 KADEN WASHING MACHINE LOADER, BRYAN 300.23 AN SOCIAL PHOBIA 04/19/2013 KENDY BROWN, JOSE S 296.89 MO BIPOLAR II 04/19/2013 KENDY BROWN, JOSE S 300.23 AN SOCIAL PHOBIA 04/19/2013 KADEN WASHING MACHINE LOADER, BRYAN 296.89 MO BIPOLAR II 04/19/2013 KADEN WASHING MACHINE LOADER, BRYAN 300.23 AN SOCIAL PHOBIA 08/09/2013 DIGNA GUERRERO MD 780.57 UNSPECIFIED SLEEP APNEA 08/09/2013 NIRU SIN JR S 780.57 UNSPECIFIED SLEEP APNEA 08/09/2013 SIMONE TEJADA APRN 780.57 UNSPECIFIED SLEEP APNEA 08/09/2013 SIMONE TEJADA APRN 780.57 UNSPECIFIED SLEEP APNEA 08/09/2013 KENDY BROWN, JOSE S 780.57 UNSPECIFIED SLEEP APNEA 08/09/2013 KADEN WASHING MACHINE LOADER, BRYAN 780.57 UNSPECIFIED SLEEP APNEA 08/09/2013 KADEN WASHING MACHINE LOADER, BRYAN 780.57 UNSPECIFIED SLEEP APNEA 08/09/2013 KADEN WASHING MACHINE LOADER, BRYAN 780.57 UNSPECIFIED SLEEP APNEA 08/09/2013 KENDY WASHING MACHINE LOADER, JOSE S 780.57 UNSPECIFIED SLEEP APNEA 08/09/2013 KADEN WASHING MACHINE LOADER, BRYAN 780.57 UNSPECIFIED SLEEP APNEA 08/09/2013 KENDY WASHING MACHINE LOADER, JOSE S 780.57 UNSPECIFIED SLEEP APNEA 08/09/2013 KADEN WASHING MACHINE LOADER BRYAN 780.57 UNSPECIFIED SLEEP APNEA 11/21/2013 KENDY BROWN, JOSE S 112.3 CANDIDIASIS OF SKIN AND NAILS 11/21/2013 KENDY BROWN, JOSE S 244.9 UNSPECIFIED ACQUIRED HYPOTHYROIDISM 11/21/2013 KADEN WASHING MACHINE LOADER, BRYAN 112.3 CANDIDIASIS OF SKIN AND NAILS 11/21/2013 KADEN WASHING MACHINE LOADER, BRYAN 244.9 UNSPECIFIED ACQUIRED HYPOTHYROIDISM 11/21/2013 KADEN WASHING MACHINE LOADER, BRYAN 112.3 CANDIDIASIS OF SKIN AND NAILS 11/21/2013 KADEN WASHING MACHINE LOADER, BRYAN 244.9 UNSPECIFIED ACQUIRED HYPOTHYROIDISM 11/21/2013 KADEN WASHING MACHINE LOADER, BRYAN 112.3 CANDIDIASIS OF SKIN AND NAILS 11/21/2013 KADEN WASHING MACHINE LOADER, BRYAN 244.9 UNSPECIFIED ACQUIRED HYPOTHYROIDISM 11/21/2013 KENDY BROWN, JOSE S 112.3 CANDIDIASIS OF SKIN AND NAILS 11/21/2013 KENDY BROWN JOSE S 244.9 UNSPECIFIED ACQUIRED HYPOTHYROIDISM 11/21/2013 KADEN WASHING MACHINE LOADER, BRYAN 112.3 CANDIDIASIS OF SKIN AND NAILS 11/21/2013 KADEN WASHING MACHINE LOADER, BRYAN 244.9 UNSPECIFIED ACQUIRED HYPOTHYROIDISM 11/21/2013 KENDY BROWN JOSE S 112.3 CANDIDIASIS OF SKIN AND NAILS 11/21/2013 KENDY WASHING MACHINE LOADER, JOSE S 244.9 UNSPECIFIED ACQUIRED HYPOTHYROIDISM 11/21/2013 KADEN WASHING MACHINE LOADER, BRYAN 112.3 CANDIDIASIS OF SKIN AND NAILS 11/21/2013 KADEN WASHING MACHINE LOADER, BRYAN 244.9 UNSPECIFIED ACQUIRED HYPOTHYROIDISM 04/09/2014 KADEN WASHING MACHINE LOADER, BRYAN 784.0 HEADACHE 04/09/2014 KENDY WASHING MACHINE LOADER, JOSE S 784.0 HEADACHE 04/09/2014 KADEN WASHING MACHINE LOADER, BRYAN 784.0 HEADACHE 06/10/2014 KENDY WASHING MACHINE LOADER, JOSE S 700 CORNS AND CALLOSITIES 06/10/2014 KENDY WASHING MACHINE LOADER, JOSE S 719.46 PAIN IN JOINT INVOLVING LOWER LEG 06/10/2014 KENDY WASHING MACHINE LOADER, JOSE S 787.91 DIARRHEA 06/10/2014 KADEN WASHING MACHINE LOADER, BRYAN 700 CORNS AND CALLOSITIES 06/10/2014 KADEN WASHING MACHINE LOADER, BRYAN 719.46 PAIN IN JOINT INVOLVING LOWER LEG 06/10/2014 KADEN WASHING MACHINE LOADER, BRYAN 787.91 DIARRHEA 07/24/2014 KADEN WASHING MACHINE LOADER, BRYAN 733.92 CHONDROMALACIA 09/02/2014 KADEN WASHING MACHINE LOADER, BRYAN V58.69 MEDICATION HIGH RISK 01/13/2016 JOSE LARRY Ot H53.9 UNSPECIFIED VISUAL DISTURBANCE 01/13/2016 MANNY [...] Ot H53.9 UNSPECIFIED VISUAL DISTURBANCE 02/03/2016 JOSE LARRYP Ot H53.9 UNSPECIFIED VISUAL DISTURBANCE 02/03/2016 JOSE LARRYP Ot H53.9 UNSPECIFIED VISUAL DISTURBANCE 02/11/2016 JOSE LARRYP Ot H53.9 UNSPECIFIED VISUAL DISTURBANCE 02/11/2016 JOSE LARRY ESTIMATOR JEWELRY Ot H53.9 UNSPECIFIED VISUAL DISTURBANCE 03/01/2016 BAIMA, NATALIE L ESTIMATOR JEWELRY Ot E03.9 HYPOTHYROIDISM, UNSPECIFIED 03/01/2016 BAIMA, NATALIE L ESTIMATOR JEWELRY Ot E78.5 HYPERLIPIDEMIA, UNSPECIFIED 03/01/2016 BAIMA, NATALIE L ESTIMATOR JEWELRY Ot E87.6 HYPOKALEMIA 03/01/2016 BAIMA, NATALIE L ESTIMATOR JEWELRY Ot R00.2 PALPITATIONS 03/01/2016 BAIMA, NATALIE L ESTIMATOR JEWELRY Ot R06.09 OTHER FORMS OF DYSPNEA 03/03/2016 BAIMA, NATALIE L ESTIMATOR JEWELRY Ot E03.9 HYPOTHYROIDISM, UNSPECIFIED 03/03/2016 BAIMA, NATALIE L ESTIMATOR JEWELRY Ot E78.5 HYPERLIPIDEMIA, UNSPECIFIED 03/03/2016 BAIMA, NATALIE L ESTIMATOR JEWELRY Ot E87.6 HYPOKALEMIA 03/03/2016 BAIMA, NATALIE L ESTIMATOR JEWELRY Ot R00.2 PALPITATIONS 03/03/2016 BAIMA, NATALIE L ESTIMATOR JEWELRY Ot R06.09 OTHER FORMS OF DYSPNEA 03/08/2016 KENDYJOSE VICTORIA ESTIMATOR JEWELRY Ot H53.9 UNSPECIFIED VISUAL DISTURBANCE 03/08/2016 BAIMA, NATALIE L ESTIMATOR JEWELRY Ot E03.9 HYPOTHYROIDISM, UNSPECIFIED 03/08/2016 BAIMA, NATALIE L ESTIMATOR JEWELRY Ot E78.5 HYPERLIPIDEMIA, UNSPECIFIED 03/08/2016 BAIMA, NATALIE L ESTIMATOR JEWELRY Ot E87.6 HYPOKALEMIA 03/08/2016 BAIMA, NATALIE L ESTIMATOR JEWELRY Ot R00.2 PALPITATIONS 03/08/2016 BAIMA, NATALIE L ESTIMATOR JEWELRY Ot R06.09 OTHER FORMS OF DYSPNEA 03/08/2016 BAIMA, NATALIE L ESTIMATOR JEWELRY Ot E03.9 HYPOTHYROIDISM, UNSPECIFIED 03/08/2016 BAIMA, NATALIE L ESTIMATOR JEWELRY Ot E78.5 HYPERLIPIDEMIA, UNSPECIFIED 03/08/2016 BAIMA, NATALIE L ESTIMATOR JEWELRY Ot E87.6 HYPOKALEMIA 03/08/2016 BAIMA, NATALIE L ESTIMATOR JEWELRY Ot R00.2 PALPITATIONS 03/08/2016 BAIMA, NATALIE L ESTIMATOR JEWELRY Ot R06.09 OTHER FORMS OF DYSPNEA 03/09/2016 BAIMA, NATALIE L ESTIMATOR JEWELRY Ot E03.9 HYPOTHYROIDISM, UNSPECIFIED 03/09/2016 BAIMA, NATALIE L ESTIMATOR JEWELRY Ot E78.5 HYPERLIPIDEMIA, UNSPECIFIED 03/09/2016 BAIMA, NATALIE L ESTIMATOR JEWELRY Ot E87.6 HYPOKALEMIA 03/09/2016 BAIMA, NATALIE L ESTIMATOR JEWELRY Ot R00.2 PALPITATIONS 03/09/2016 BAIMA, NATALIE L ESTIMATOR JEWELRY Ot R06.09 OTHER FORMS OF DYSPNEA 03/11/2016 BAIMA, NATALIE L ESTIMATOR JEWELRY Ot E03.9 HYPOTHYROIDISM, UNSPECIFIED 03/11/2016 BAIMA, NATALIE L ESTIMATOR JEWELRY Ot E78.5 HYPERLIPIDEMIA, UNSPECIFIED 03/11/2016 BAIMA, NATALIE L ESTIMATOR JEWELRY Ot E87.6 HYPOKALEMIA 03/11/2016 BAIMA, NATALIE L ESTIMATOR JEWELRY Ot R00.2 PALPITATIONS 03/11/2016 BAIMA, NATALIE L ESTIMATOR JEWELRY Ot R06.09 OTHER FORMS OF DYSPNEA 10/11/2016 ANTWAN MITCHELL WASHING MACHINE LOADER Ot E66.9 OBESITY, UNSPECIFIED 10/11/2016 ANTWAN MITCHELL WASHING MACHINE LOADER Ot K02.9 DENTAL CARIES, UNSPECIFIED 10/11/2016 ANTWAN MITCHELL WASHING MACHINE LOADER Ot K08.9 DISORDER OF TEETH AND SUPPORTING STRUCTU 10/11/2016 ANTWAN MITCHELL WASHING MACHINE LOADER Ot R51 HEADACHE 10/11/2016 ANTWAN MITCHELL WASHING MACHINE LOADER Ot Z79.899 OTHER PRISON (CURRENT) DRUG THERAPY 10/11/2016 JOSE LARRY ESTIMATOR JEWELRY Ot H53.9 UNSPECIFIED VISUAL DISTURBANCE 10/11/2016 MIGUELKENYA NATALIE L ESTIMATOR JEWELRY Ot E03.9 HYPOTHYROIDISM, UNSPECIFIED 10/11/2016 BAIMA, NATALIE L ESTIMATOR JEWELRY Ot E78.5 HYPERLIPIDEMIA, UNSPECIFIED 10/11/2016 BAIMA, NATALIE L ESTIMATOR JEWELRY Ot E87.6 HYPOKALEMIA 10/11/2016 BAIMA, NATLAIE L ESTIMATOR JEWELRY Ot R00.2 PALPITATIONS 10/11/2016 BAIMA, NATALIE L ESTIMATOR JEWELRY Ot R06.09 OTHER FORMS OF DYSPNEA 10/11/2016 BAIMA, NATALIE L ESTIMATOR JEWELRY Ot E03.9 HYPOTHYROIDISM, UNSPECIFIED 10/11/2016 BAIMA, NATALIE L ESTIMATOR JEWELRY Ot E78.5 HYPERLIPIDEMIA, UNSPECIFIED 10/11/2016 BAIMA, NATALIE L ESTIMATOR JEWELRY Ot E87.6 HYPOKALEMIA 10/11/2016 NATALIE HYLTON ESTIMATOR JEWELRY Ot R00.2 PALPITATIONS 10/11/2016 NATALIE HYLTON ESTIMATOR JEWELRY Ot R06.09 OTHER FORMS OF DYSPNEA 10/12/2016 ANTWAN MITCHELL WASHING MACHINE LOADER Ot E66.9 OBESITY, UNSPECIFIED 10/12/2016 ANTWAN MITCHELL WASHING MACHINE LOADER Ot K02.9 DENTAL CARIES, UNSPECIFIED 10/12/2016 ANTWAN MITCHELL WASHING MACHINE LOADER Ot K08.9 DISORDER OF TEETH AND SUPPORTING STRUCTU 10/12/2016 ANTWAN MITCHELL WASHING MACHINE LOADER Ot R51 HEADACHE 10/12/2016 ANTWAN MITCHELL WASHING MACHINE LOADER Ot Z79.899 OTHER PRISON (CURRENT) DRUG THERAPY 10/17/2016 ANTWAN MITCHELL APRN Ot E66.9 OBESITY, UNSPECIFIED 10/17/2016 ANTWAN MITCHELL APRN Ot K02.9 DENTAL CARIES, UNSPECIFIED 10/17/2016 ANTWAN MITCHELL APRN Ot K08.9 DISORDER OF TEETH AND SUPPORTING STRUCTU 10/17/2016 ANTWAN MITCHELL WASHING MACHINE LOADER Ot R51 HEADACHE 10/17/2016 ANTWAN MITCHELL WASHING MACHINE LOADER Ot Z79.899 OTHER PRISON (CURRENT) DRUG THERAPY 12/28/2016 ANTWAN MITCHELL APRN Ot E66.9 OBESITY, UNSPECIFIED 12/28/2016 ANTWAN MITCHELL APRN Ot K02.9 DENTAL CARIES, UNSPECIFIED 12/28/2016 ANTWAN MITCHELL WASHING MACHINE LOADER Ot K08.9 DISORDER OF TEETH AND SUPPORTING STRUCTU 12/28/2016 ANTWAN MITCHELL WASHING MACHINE LOADER Ot R51 HEADACHE 12/28/2016 ANTWAN MITCHELL WASHING MACHINE LOADER Ot Z79.899 OTHER PRISON (CURRENT) DRUG THERAPY 12/29/2016 JOSE LARRY ESTIMATOR JEWELRY Ot H53.9 UNSPECIFIED VISUAL DISTURBANCE 12/29/2016 NATALIE HYLTON ESTIMATOR JEWELRY Ot E03.9 HYPOTHYROIDISM, UNSPECIFIED 12/29/2016 NATALIE HYLTON L ESTIMATOR JEWELRY Ot E78.5 HYPERLIPIDEMIA, UNSPECIFIED 12/29/2016 NATALIE HYLTON L ESTIMATOR JEWELRY Ot E87.6 HYPOKALEMIA 12/29/2016 NATALIE HYLTON L ESTIMATOR JEWELRY Ot R00.2 PALPITATIONS 12/29/2016 NATALIE HYLTON L ESTIMATOR JEWELRY Ot R06.09 OTHER FORMS OF DYSPNEA 12/29/2016 BAIMA, NATALIE L ESTIMATOR JEWELRY Ot E03.9 HYPOTHYROIDISM, UNSPECIFIED 12/29/2016 BAIMA, NATALIE L ESTIMATOR JEWELRY Ot E78.5 HYPERLIPIDEMIA, UNSPECIFIED 12/29/2016 BAIMA, NATALIE L ESTIMATOR JEWELRY Ot E87.6 HYPOKALEMIA 12/29/2016 BAIMA, NATALIE L ESTIMATOR JEWELRY Ot R00.2 PALPITATIONS 12/29/2016 BAIMA, NATALIE L ESTIMATOR JEWELRY Ot R06.09 OTHER FORMS OF DYSPNEA 12/29/2016 DIOGO FITZPATRICK, JORDY George Ot E03.9 HYPOTHYROIDISM, UNSPECIFIED 12/29/2016 DIOGO FITZPATRICK, JORDY George Ot F17.210 NICOTINE DEPENDENCE, CIGARETTES, UNCOMPL 12/29/2016 DIOGO FITZPATRICK, JORDY George Ot K05.10 CHRONIC GINGIVITIS, PLAQUE INDUCED 12/29/2016 DIOGO FITZPATRICK, JORDY George Ot K08.89 OTHER SPECIFIED DISORDERS OF TEETH AND S 12/29/2016 DIOGO FITZPATRICK, JORDY George Ot Z79.899 OTHER CAR SHAGGER (CURRENT) DRUG THERAPY 12/29/2016 JOSE LARRY ESTIMATOR JEWELRY Ot H53.9 UNSPECIFIED VISUAL DISTURBANCE 12/29/2016 BAIMA, NATALIE L ESTIMATOR JEWELRY Ot E03.9 HYPOTHYROIDISM, UNSPECIFIED 12/29/2016 BAIMA, NATALIE L ESTIMATOR JEWELRY Ot E78.5 HYPERLIPIDEMIA, UNSPECIFIED 12/29/2016 BAIMA, NATALIE L ESTIMATOR JEWELRY Ot E87.6 HYPOKALEMIA 12/29/2016 BAIMA, NATALIE L ESTIMATOR JEWELRY Ot R00.2 PALPITATIONS 12/29/2016 BAIMA, NATALIE L ESTIMATOR JEWELRY Ot R06.09 OTHER FORMS OF DYSPNEA 12/29/2016 BAIMA, NATALIE L ESTIMATOR JEWELRY Ot E03.9 HYPOTHYROIDISM, UNSPECIFIED 12/29/2016 BAIMA, NATALIE L ESTIMATOR JEWELRY Ot E78.5 HYPERLIPIDEMIA, UNSPECIFIED 12/29/2016 BAIMA, NATALIE L ESTIMATOR JEWELRY Ot E87.6 HYPOKALEMIA 12/29/2016 BAIMA, NATALIE L ESTIMATOR JEWELRY Ot R00.2 PALPITATIONS 12/29/2016 BAIMA, NATALIE L ESTIMATOR JEWELRY Ot R06.09 OTHER FORMS OF DYSPNEA 12/30/2016 DIOGO FITZPATRICK, JORDY T Ot E03.9 HYPOTHYROIDISM, UNSPECIFIED 12/30/2016 JORDY LIND MD T Ot F17.210 NICOTINE DEPENDENCE, CIGARETTES, UNCOMPL 12/30/2016 JORDY LIND MD T Ot K05.10 CHRONIC GINGIVITIS, PLA[place] INDUCED 12/30/2016 JORDY LIND MD Ot K08.89 OTHER SPECIFIED DISORDERS OF TEETH AND S 12/30/2016 JORDY LIND MD Ot Z79.899 OTHER PRISON (CURRENT) DRUG THERAPY 04/12/2017 JORDY LIND MD Ot E03.9 HYPOTHYROIDISM, UNSPECIFIED 04/12/2017 JORDY LIND MD Ot F17.210 NICOTINE DEPENDENCE, CIGARETTES, UNCOMPL 04/12/2017 JORDY LIND MD Ot K05.10 CHRONIC GINGIVITIS, PLAQUE INDUCED 04/12/2017 JORDY LIND MD Ot K08.89 OTHER SPECIFIED DISORDERS OF TEETH AND S 04/12/2017 JORDY LIND MD T Ot Z79.899 OTHER PRISON (CURRENT) DRUG THERAPY 10/06/2017 JOSE LARRY ESTIMATOR JEWELRY Ot H53.9 UNSPECIFIED VISUAL DISTURBANCE 10/06/2017 BAIMA, NATALIE L ESTIMATOR JEWELRY Ot E03.9 HYPOTHYROIDISM, UNSPECIFIED 10/06/2017 BAIMA, NATALIE L ESTIMATOR JEWELRY Ot E78.5 HYPERLIPIDEMIA, UNSPECIFIED 10/06/2017 BAIMA, NATALIE L ESTIMATOR JEWELRY Ot E87.6 HYPOKALEMIA 10/06/2017 BAIMA, NATALIE L ESTIMATOR JEWELRY Ot R00.2 PALPITATIONS 10/06/2017 BAIMA, NATALIE L ESTIMATOR JEWELRY Ot R06.09 OTHER FORMS OF DYSPNEA 10/06/2017 BAIMA, NATALIE L ESTIMATOR JEWELRY Ot E03.9 HYPOTHYROIDISM, UNSPECIFIED 10/06/2017 BAIMA, NATALIE L ESTIMATOR JEWELRY Ot E78.5 HYPERLIPIDEMIA, UNSPECIFIED 10/06/2017 BAIMA, NATALIE L ESTIMATOR JEWELRY Ot E87.6 HYPOKALEMIA 10/06/2017 BAIMA, NATALIE L ESTIMATOR JEWELRY Ot R00.2 PALPITATIONS 10/06/2017 BAIMA, NATALIE L ESTIMATOR JEWELRY Ot R06.09 OTHER FORMS OF DYSPNEA 10/06/2017 KENDY, JOSE ESTIMATOR JEWELRY Ot H53.9 UNSPECIFIED VISUAL DISTURBANCE 10/06/2017 NATALIE HYLTON L ESTIMATOR JEWELRY Ot E03.9 HYPOTHYROIDISM, UNSPECIFIED 10/06/2017 BAIMANATALIE L ESTIMATOR JEWELRY Ot E78.5 HYPERLIPIDEMIA, UNSPECIFIED 10/06/2017 BAIMANATALIE L ESTIMATOR JEWELRY Ot E87.6 HYPOKALEMIA 10/06/2017 BAIMANATALIE L ESTIMATOR JEWELRY Ot R00.2 PALPITATIONS 10/06/2017 BAIMA, NATALIE L ESTIMATOR JEWELRY Ot R06.09 OTHER FORMS OF DYSPNEA 10/06/2017 MIGUELMANATALIE L ESTIMATOR JEWELRY Ot E03.9 HYPOTHYROIDISM, UNSPECIFIED 10/06/2017 BAIMA, NATALIE L ESTIMATOR JEWELRY Ot E78.5 HYPERLIPIDEMIA, UNSPECIFIED 10/06/2017 BAIMAMARCONATALIE L ESTIMATOR JEWELRY Ot E87.6 HYPOKALEMIA 10/06/2017 NATALIE HYLTON L ESTIMATOR JEWELRY Ot R00.2 PALPITATIONS 10/06/2017 BAIMA NATALIE L ESTIMATOR JEWELRY Ot R06.09 OTHER FORMS OF DYSPNEA Procedures Code [place] [address] A1C (IN-HOUSE) 06/11/2012 58589 ROUTINE VENIPUNCTURE 08/10/2012 48254 UA W/ CULTURE IF INDICATED 08/10/2012 80706 CBC 08/10/2012 73987 CMP 08/10/2012 6552647 GFR CALC (RESULT ONLY) 08/10/2012 14087 LITHIUM 08/10/2012 00895 TSH 08/10/2012 40785 CULTURE URINE 08/12/2012 81831 PSYCH DIAGNOSTIC EVALUATION 08/21/2012 68956 TRICHOMONAS (IN-HOUSE) 09/17/2012 06384 CULTURE UROGENITAL 09/18/2012 76980 GC/CHLAM PROBE (STATE) 09/18/2012 82854 PAP SMEAR 09/18/2012 Q0091 PAP SMEAR OBTAIN SMEAR 09/18/2012 93196 PSYTX PT&/FAMILY 45 MINUTES 11/16/2012 96484 ROUTINE VENIPUNCTURE 02/12/2013 95438 CBC 02/12/2013 48942 FERRITIN 02/12/2013 18179 ROUTINE VENIPUNCTURE 03/08/2013 10034 PSYTX PT&/FAMILY 45 MINUTES 03/12/2013 23402 AMITRIPTYLINE 03/16/2013 15035 ROUTINE VENIPUNCTURE 03/22/2013 66753 SLEEP STUDY 03/22/2013 75989 CBC 03/22/2013 78995 CMP 03/22/2013 7658105 GFR CALC (RESULT ONLY) 03/22/2013 34151 LITHIUM 03/22/2013 14889 TSH 03/22/2013 69780 PSYTX PT&/FAMILY 30 MINUTES 04/08/2013 57069 PSYCH DIAG EVAL W/MED SRVCS 04/19/2013 55683 ROUTINE VENIPUNCTURE 04/25/2013 48595 LITHIUM 04/25/2013 90267 ROUTINE VENIPUNCTURE 10/25/2013 04501 A1C (IN-HOUSE) 10/25/2013 42699 CBC 10/25/2013 97705 CMP 10/25/2013 88489 LIPID PANEL 10/25/2013 4842959 GFR CALC (RESULT ONLY) 10/25/2013 75946 LITHIUM 10/25/2013 99402 TSH 10/25/2013 54122 AMITRIPTYLINE 10/29/2013 19831 ROUTINE VENIPUNCTURE 04/07/2014 28900 TSH 04/07/2014 60524 XRAY KNEE RIGHT 1 OR 2 VIEWS 06/10/2014 Results Test Result Range TSH - 09/05/16 09:19 TSH 3.130 uIU/mL 0.450-4.500 [place] (Eskalith(R)), Serum - 09/05/16 09:19 [place] (Eskalith(R)), Serum 0.6 mmol/L 0.6-1.4 A1C - 07/10/17 16:05 HEMOGLOBIN A1c 5.3 % of total Hgb <5.7 Encounters ACCT No. Visit Date/Time Discharge Status Pt. Type Provider Facility Loc./Unit Complaint [id number] 09/02/2014 09:35:00 09/02/2014 23:59:59 CLS Outpatient BRYAN ALFONSO APRN [id number] 07/24/2014 15:07:00 07/24/2014 23:59:59 CLS Outpatient LESVIA BECERRA APRN [id number] 06/10/2014 13:14:00 06/10/2014 23:59:59 CLS Outpatient JOSE LARRY APRN [id number] 04/09/2014 10:16:00 04/09/2014 23:59:59 CLS Outpatient JOSE LARRY APRN [id number] 03/25/2014 14:20:00 03/25/2014 23:59:59 CLS Outpatient BRYAN ALFONSO APRN [id number] 03/25/2014 14:20:00 03/25/2014 23:59:59 CLS Outpatient BRYAN ALFONSO APRN [id number] 02/20/2014 09:40:00 02/20/2014 23:59:59 CLS Outpatient BRYAN ALFONSO APRN [id number] 01/07/2014 12:30:00 01/07/2014 23:59:59 CLS Outpatient BRYAN ALFONSO APRN [id number] 11/21/2013 13:39:00 11/21/2013 23:59:59 CLS Outpatient JOSE LARRY APRN Trena [id number] 10/25/2013 07:48:00 10/25/2013 23:59:59 CLS Outpatient SIMONE TEJADA APRN [id number] 10/01/2013 14:48:00 10/01/2013 23:59:59 CLS Outpatient SIMONE TEJADA APRN [id number] 08/09/2013 13:41:00 08/09/2013 23:59:59 CLS Outpatient NIRU SIN JR [id number] 08/09/2013 13:41:00 08/09/2013 23:59:59 CLS Outpatient DIGNA GUERRERO MD [id number] 06/28/2013 13:40:00 06/28/2013 23:59:59 CLS Outpatient NIRU SIN JR [id number] 04/19/2013 11:02:00 04/19/2013 23:59:59 CLS Outpatient NIRU SIN JR [id number] 04/19/2013 11:02:00 04/19/2013 23:59:59 CLS Outpatient DIGNA GUERRERO MD [id number] 04/05/2013 12:32:00 04/05/2013 23:59:59 CLS Outpatient WILLIS CUETO PHD [id number] 03/22/2013 14:58:00 03/22/2013 23:59:59 CLS Outpatient KATHARINE CALIX DO [id number] 09/17/2012 09:19:00 09/17/2012 23:59:59 CLS Outpatient MAIRA BROWNFELIXJAIMEE A [id number] 08/21/2012 08:41:00 08/21/2012 23:59:59 CLS Outpatient WILLIS CUETO PHD [id number] 08/10/2012 12:21:00 08/10/2012 23:59:59 CLS Outpatient [id number] 08/01/2012 10:41:00 08/01/2012 23:59:59 CLS Outpatient KATHARINE CALIX DO [id number] 06/11/2012 09:58:00 06/11/2012 23:59:59 CLS Outpatient ELZBIETA LARRY APRNA Trena [id number] 03/08/2013 09:43:00 Document Registration [id number] 02/07/2013 07:53:00 Document Registration [id number] 02/01/2013 00:00:00 Document Registration [id number] 11/16/2012 07:38:00 Document Registration [id number] 09/06/2016 10:10:00 Document Registration [id number] 07/31/2018 14:20:00 07/31/2018 23:59:59 CLS Outpatient JOSE LARRY APRN [facility] [id number] 07/10/2017 15:00:00 Document Registration [id number] 10/05/2017 18:51:00 10/05/2017 20:57:00 DIS Emergency ANTWAN MITCHELL APRN [facility] ER R SHOULDER PAIN [id number] 12/29/2016 17:48:00 12/29/2016 19:24:00 DIS Emergency JORDY LIND MD [facility] ER TOOTH PAIN [id number] 10/11/2016 14:24:00 10/11/2016 14:43:00 DIS Emergency ANTWAN MITCHELL APRN [facility] ER TOOTHACHE,HEADACHE [id number] 02/23/2016 11:28:00 02/23/2016 23:59:59 CLS Outpatient BAIMA, NATALIE L ESTIMATOR JEWELRY [facility] CARD HLP,PALPITATIONS, HYPOKALEMIA [id number] 02/22/2016 10:24:00 02/22/2016 23:59:59 CLS Outpatient BAIMA, NATAILE L ESTIMATOR JEWELRY [facility] CARD EXERTIONAL DYSPNEA, PALPITATIONS,HLP,HYPOKALEMIA [id number] 01/13/2016 10:48:00 01/13/2016 13:36:00 DIS Emergency DARREN BRYANT DO [facility] ER BLURRED VISION [id number] 01/11/2016 08:59:00 01/11/2016 23:59:59 CLS Outpatient JOSE LARRY [facility] RAD VISUAL DISTURBANCE [id number] 04/01/2013 19:42:00 04/02/2013 05:55:00 DIS Outpatient KATHARINE CALIX DO [facility] SLEEP RESTLESS LEG SYNDROME
== END 2018-09-02 14:46 | disposition home or self-care (01) ==
LOC: EDUNIT# 13:54 → ER 13:56
DX: N39.0 Urinary tract infection, site not specified (principal); G47.30 Sleep apnea, unspecified; G25.81 Restless legs syndrome; E66.9 Obesity, unspecified; E03.9 Hypothyroidism, unspecified; F41.9 Anxiety disorder, unspecified; F31.9 Bipolar disorder, unspecified; F20.9 Schizophrenia, unspecified; Z87.19 Personal history of other diseases of the digestive system; Z98.890 Other specified postprocedural states; Z98.51 Tubal ligation status; Z68.42 Body mass index [BMI] 45.0-49.9, adult
CPT/HCPCS: 81000; 84703; 87088; 87186; 99282

== ENCOUNTER 2021-02-14 07:31 | Emergency (ER) | payer SELFPAY ==
[~2021-02-14] VITALS: Ht 175 cm; Wt 152.0 kg
[~2021-02-14 07:31] MED LIST changes: +SULF1TAB38 PO
[2021-02-14] MEDS ORDERED: LACTATED RINGERS 1,000 ML IV STA (07:51)
[2021-02-14] MEDS ORDERED: ONDANSETRON 4 MG/2 ML (SDV) Z0FRAN IVP ONE (08:00)
[2021-02-14 08:04] LABS: BASOPHILS # (AUTO) 0.1 10^3/uL (0.0-0.1); BASOPHILS % (AUTO) 1 % (0-10); EOSINOPHILS # (AUTO) 0.1 10^3/uL (0.0-0.3); EOSINOPHILS % (AUTO) 1 % (0-10); HEMATOCRIT 45 % (35-52); HEMOGLOBIN 15.6 g/dL (11.5-16.0); LYMPHOCYTES # (AUTO) 2.2 10^3/uL (1.0-4.0); LYMPHOCYTES % (AUTO) 20 % (12-44); MEAN CORPUSCULAR HEMOGLOBIN 31 pg (25-34); MEAN CORPUSCULAR HGB CONC 35 g/dL (32-36); MEAN CORPUSCULAR VOLUME 88 fL (80-99); MEAN PLATELET VOLUME 9.2 fL (9.0-12.2); MONOCYTES # (AUTO) 0.5 10^3/uL (0.0-1.0); MONOCYTES % (AUTO) 5 % (0-12); NEUTROPHILS # (AUTO) 8.4 10^3/uL (1.8-7.8); NEUTROPHILS % (AUTO) 74 % (42-75); PLATELET COUNT 292 10^3/uL (130-400); WHITE BLOOD COUNT 11.3 10^3/uL (4.3-11.0)
[2021-02-14 08:17] LABS: ALBUMIN 4.2 GM/DL (3.2-4.5)
[2021-02-14 08:19] LABS: CALCIUM 9.4 MG/DL (8.5-10.1)
[2021-02-14 08:20] LABS: TOTAL PROTEIN 7.8 GM/DL (6.4-8.2)
[2021-02-14 08:22] LABS: BILIRUBIN,TOTAL 0.6 MG/DL (0.1-1.0)
[2021-02-14 08:24] LABS: CREATININE SERUM 0.86 MG/DL (0.60-1.30)
--- NOTE | 2021-02-14 08:26 | ED General ---
General Chief Complaint: Abdominal/GI Problems Stated Complaint: N/V,DIARRHEA,SOB, DIZZINESS Nursing Triage Note: PT PRESENTS TO ED VIA POV FROM HOME WITH COMPLAINTS OF NAUSEA AND DIAHRREA, HOT/COLD SWEATS, DIZZINESS, ALTERED TASTE/SMELL, SOA, AND COUGH SINCE MONDAY. Source of Information: Patient Exam Limitations: No Limitations History of Present Illness Date Seen by Provider: Feb 14, 2021 Time Seen by Provider: 07:47 Initial Comments Here with report of concerns related to nausea, diarrhea, chills, runny nose, cough and pain with urination. All of this started on Monday. She has been vaccinated in December and December with Moderna. She has no known Covid exposures. She states that her taste and smell is a little different right now. Timing/Duration: 2-3 Days Severity: Moderate Associated Systoms: Cough, Fever/Chills, Nausea/Vomiting; No Shortness of Air, No Weakness Allergies and Home Medications Allergies Coded Allergies: No Known Drug Allergies (Unverified , 12/29/16) Home Medications Gabapentin 600 Mg Tablet, 600 MG PO TIDAC, (Reported) Levothyroxine Sodium 100 Mcg Tablet, 100 MCG PO DAILY, (Reported) [place] Carbonate 300 Mg Tablet.er, 300 MG PO BID, (Reported) Loxapine Succinate 10 Mg Capsule, 10 MG PO BID, (Reported) Naproxen 500 Mg Tablet, 500 MG PO BID PRN for PAIN-MILD TO MODERATE Prescribed by: ANTWAN MITCHELL on 10/05/172031 Sulfamethoxazole/Trimethoprim 1 Each Tablet, 1 EACH PO BID Prescribed by: ANTWAN MITCHELL on 09/02/18 1417 Trazodone HCl 150 Mg Tablet, 150 MG PO HS, (Reported) [[place]] , Unknown Dose IM MONTHLY, (Reported) Patient Home Medication List Home Medication List Reviewed: Yes Review of Systems Review of Systems Constitutional: see HPI EENTM: nose congestion; No throat pain Respiratory: cough; No short of breath Cardiovascular: No chest pain, No edema Gastrointestinal: No abdominal pain; diarrhea Genitourinary: dysuria; No frequency Musculoskeletal: no symptoms reported Skin: no symptoms reported Psychiatric/Neurological: Headache; Denies Weakness All Other Systems Reviewed Negative Unless Noted: Yes Past Fofbtxt-Pkvdug-Kwkzic Hx Patient Social History Tobacco Use?: Yes Tobacco type used: Cigarettes Smoking Status: Current Everyday Smoker Substance use?: No Alcohol Use?: No Pt feels they are or have been: No Immunizations Up To Date Tetanus Booster (TDap): Unknown First/Initial COVID19 Vaccinat: december Second COVID19 Vaccination [place]: december COVID19 Vaccine Cold Header: suma Past Medical History Surgery/Hospitalization HX: sx: 3-c-sec, r ankle pmh: depression, dm2, schizo, panic attacks. Surgeries: Yes (LIVER BIOPSY) Section, Orthopedic, Tubal Ligation Respiratory: Yes (tobaccoism) Sleep Apnea Cardiac: No Neurological: Yes (NEUROPATHY FROM ALCOHOLISM; RESTLESSLEG SYNDROME) Neuropathy Gastrointestinal: Yes (FATTY LIVER) Liver Disease/Jaundice Musculoskeletal: No Endocrine: Yes (OBESITY) Hypothyroidsim Cancer: No Psychosocial: Yes Anxiety, Bipolar, Schizophrenia, Depression Integumentary: No Blood Disorders: No Family Medical History Reviewed Nursing Family Hx No Pertinent Family Hx Physical Exam-Suspected Sepsis Physical Exam Vital Signs Vital Signs - First Documented 02/14/21 08:03 Temp 36.2 Pulse 105 Resp 16 B/P (MAP) 159/102 (121) Pulse Ox 98 Capillary Refill : Less Than 3 Seconds Blood Pressure Mean: 121 Height, Weight, BMI Height: 5'9.00" Weight: 320lbs. oz. 145.349101hi; 49.00 BMI Method:Stated General Appearance: No Apparent Distress, WD/WN, Obese HEENT: PERRL/EOMI; No Pale Conjunctivae (L), No Pale Conjunctivae (R) Neck: Non Tender, Supple Respiratory: Lungs Clear, Normal Breath Sounds Cardiovascular: No Murmur, Tachycardia Gastrointestinal: Non Tender, Soft Extremity: Normal Range of Motion, Non Tender, No Calf Tenderness Neurologic/Psychiatric: Alert, Oriented x3 Skin: normal color, warm/dry Focused Exam Lactate Level 02/14/21 07:39: Lactic Acid Level 2.08*H 02/14/21 09:45: Lactic Acid Level Laboratory Tests Test 02/14/21 07:39 02/14/21 09:45 Lactic Acid Level 2.08 MMOL/L (0.50-2.00) *H Progress/Results/Core Measures Suspected Sepsis SIRS Temperature: Pulse: 105 Respiratory Rate: 16 Laboratory Tests 02/14/21 07:39: White Blood Count 11.3H Blood Pressure 159 /102 Mean: 121 02/14/21 07:39: Lactic Acid Level 2.08*H 02/14/21 09:45: Laboratory Tests 02/14/21 07:39: Creatinine 0.86, INR Comment 1.1, Platelet Count 292, Total Bilirubin 0.6 Results/Orders Lab Results Laboratory Tests Test 02/14/21 07:39 02/14/21 09:05 02/14/21 09:45 Range/Units White Blood Count 11.3 H 4.3-11.0 10^3/uL Red Blood Count 5.05 3.80-5.11 10^6/uL Hemoglobin 15.6 11.5-16.0 g/dL Hematocrit 45 35-52 % Mean Corpuscular Volume 88 80-99 fL Mean Corpuscular Hemoglobin 31 25-34 pg Mean Corpuscular Hemoglobin Concent 35 32-36 g/dL Red Cell Distribution Width 14.2 10.0-14.5 % Platelet Count 292 130-400 10^3/uL Mean Platelet Volume 9.2 9.0-12.2 fL Immature Granulocyte % (Auto) 0 % Neutrophils (%) (Auto) 74 42-75 % Lymphocytes (%) (Auto) 20 12-44 % Monocytes (%) (Auto) 5 0-12 % Eosinophils (%) (Auto) 1 0-10 % Basophils (%) (Auto) 1 0-10 % Neutrophils # (Auto) 8.4 H 1.8-7.8 10^3/uL Lymphocytes # (Auto) 2.2 1.0-4.0 10^3/uL Monocytes # (Auto) 0.5 0.0-1.0 10^3/uL Eosinophils # (Auto) 0.1 0.0-0.3 10^3/uL Basophils # (Auto) 0.1 0.0-0.1 10^3/uL Immature Granulocyte # (Auto) 0.1 0.0-0.1 10^3/uL Prothrombin Time 14.7 12.2-14.7 SEC INR Comment 1.1 0.8-1.4 Activated Partial Thromboplast Time 32 24-35 SEC D-Dimer <= 0.27 0.00-0.49 UG/ML Sodium Level 142 135-145 MMOL/L Potassium Level 4.0 3.6-5.0 MMOL/L Chloride Level 107 98-107 MMOL/L Carbon Dioxide Level 19 L 21-32 MMOL/L Anion Gap 16 H 5-14 MMOL/L Blood Urea Nitrogen 7 7-18 MG/DL Creatinine 0.86 0.60-1.30 MG/DL Estimat Glomerular Filtration Rate 73 BUN/Creatinine Ratio 8 Glucose Level 141 H 70-105 MG/DL Lactic Acid Level 2.08 *H 0.50-2.00 MMOL/L Calcium Level 9.4 8.5-10.1 MG/DL Corrected Calcium 9.2 8.5-10.1 MG/DL Total Bilirubin 0.6 0.1-1.0 MG/DL Aspartate Amino Transf (AST/SGOT) 35 H 5-34 U/L Alanine Aminotransferase (ALT/SGPT) 48 0-55 U/L Alkaline Phosphatase 108 40-136 U/L C-Reactive Protein High Sensitivity 0.54 H 0.00-0.50 MG/DL Total Protein 7.8 6.4-8.2 GM/DL Albumin 4.2 3.2-4.5 GM/DL Procalcitonin 0.02 <0.10 NG/ML Influenza Type A (RT-PCR) Not Detected Not Detecte Influenza Type B (RT-PCR) Not Detected Not Detecte SARS-CoV-2 RNA (RT-PCR) Not Detected Not Detecte Urine Color YELLOW Urine Clarity CLEAR Urine pH 6.0 5-9 Urine Specific [place] 1.020 1.016-1.022 Urine Protein NEGATIVE NEGATIVE Urine Glucose (UA) NEGATIVE NEGATIVE Urine Ketones NEGATIVE NEGATIVE Urine Nitrite NEGATIVE NEGATIVE Urine Bilirubin NEGATIVE NEGATIVE Urine Urobilinogen 0.2 < = 1.0 MG/DL Urine Leukocyte Esterase TRACE H NEGATIVE Urine RBC (Auto) NEGATIVE NEGATIVE Urine RBC RARE /HPF Urine WBC 5-10 H /HPF Urine Squamous Epithelial Cells 5-10 /HPF Urine Crystals NONE /LPF Urine Bacteria FEW H /HPF Urine Casts NONE /LPF Urine Mucus SMALL H /LPF Urine Culture Indicated CULTURE PENDING My Orders Orders - CODY BAEZ MD Cbc With Automated Diff (02/14/21 07:49) Comprehensive Metabolic Panel (02/14/21 07:49) Blood Culture (02/14/21 07:49) Sputum Culture (02/14/21 07:49) Urinalysis (02/14/21 07:49) Urine Culture (02/14/21 07:49) Protime With Inr (02/14/21 07:49) Partial Thromboplastin Time (02/14/21 07:49) Chest 1 View, Ap/Pa Only (02/14/21 07:49) Ed Iv/Invasive Line Start (02/14/21 07:49) Vital Signs Adult Sepsis Patie Q15M (02/14/21 07:49) O2 (02/14/21 07:49) Remove Rings In Anticipation O (02/14/21 07:49) Lactic Acid Analyzer (02/14/21 07:49) Fibrin Degradation Products (02/14/21 07:49) Procalcitonin (Pct) (02/14/21 07:49) Hs C Reactive Protein (02/14/21 07:49) Covid 19 Inhouse Test (02/14/21 07:49) Influenza A And B By Pcr (02/14/21 07:49) Ondansetron Injection (Zofran Injectio (02/14/21 08:00) Lactated Ringers (Lr 1000 Ml Iv Solution (02/14/21 07:51) Medications Given in ED Current Medications Medications Dose Ordered Sig/Felicia Route Start Time Stop Time Status Last Admin Dose Admin Ondansetron HCl 4 mg ONCE ONCE IVP 02/14/21 08:00 02/14/21 08:01 DC 02/14/21 08:02 4 MG Vital Signs/I&O 02/14/21 08:03 Temp 36.2 Pulse 105 Resp 16 B/P (MAP) 159/102 (121) Pulse Ox 98 Capillary Refill : Less Than 3 Seconds Blood Pressure Mean: 121 Progress Note : Progress Note Seen and evaluated. IV, labs, UA and chest x-ray ordered. Covid 19 swab ordered as well as influenza screen. LR 1 L bolus and Zofran 4 mg IV ordered. Monitor patient. 0820: Nausea improved after Zofran. Pending testing. Monitor patient. 0900: Covid negative. UA pending. Monitor patient. 1003: Covid swab is negative. UA is positive. Lactic acid was slightly elevated but I believe this is related to diarrhea. Nausea has resolved. She feels like she can drink. We will initiate outpatient ondansetron and cephalexin. Patient was happy with that plan and wants to go home. Discharged home with return precautions. Patient verbalized understanding of instructions and agreement with plan. Diagnostic Imaging Diagonstic Imaging: Xray Plain Films/CT/US/NM/MRI: chest Comments [facility] [place], [place] NAME: DIYA DEGROOT [facility] REC#: [id number] PT STATUS: REG ER : 1980 PHYSICIAN: CODY BAEZ MD ADMIT DATE: 02/14/21/ER Draft Date of Exam:02/14/21 CHEST 1 VIEW, AP/PA ONLY Clinical indications: Patient with sepsis. Exam: Portable chest x-ray upright view. Comparisons: None. Findings: Lungs/pleura: Lungs are clear. There is no pneumothorax. There is no pleural effusion. Mediastinum: Unremarkable. Pulmonary vasculature: Unremarkable. Heart: Unremarkable. Bones/extrathoracic soft tissue: Unremarkable. Impression: There is no radiographic evidence of acute cardiopulmonary process. Dictated on workstation # [id number] Dict: 02/14/21 0858 Trans: 02/14/21 0908 [facility] [id number] Interpreted by: MACKENZIE HARRINGTON MD Electronically signed by: Departure Impression Primary Impression: Urinary tract infection Qualified Codes: N30.00 - Acute cystitis without hematuria Additional Impression: Diarrhea Qualified Codes: R19.7 - Diarrhea, unspecified Disposition: 01 HOME, SELF-CARE Condition: Improved Departure-Patient Inst. Decision time for Depature: 10:04 Referrals: [facility] [place] ([place]) Primary Care Physician DIGNA SHIELDS (Family) Primary Care Physician Patient Instructions: Urinary Tract Infection, Adult ED, Diarrhea, Adult ED Add. Discharge Instructions: All discharge instructions reviewed with patient and/or family. Voiced understan ding. Take medications as directed. Drink plenty of fluids. Clear liquid or light diet for the next day or 2 and then advance as tolerated. Return for worse pain, fever, vomiting, weakness, breathing problems or other concerns as needed. Scripts Ondansetron (Ondansetron Odt) 4 Mg Tab.rapdis 4 MG PO Q6H PRN for NAUSEA/VOMITING, #12 TAB 0 Refills Prov: CODY BAEZ MD 02/14/21 Cephalexin (Cephalexin) 500 Mg Tablet 500 MG PO BID, #10 TAB 0 Refills Prov: CODY BAEZ MD 02/14/21 CODY BAEZ MD Feb 14, 2021 08:26
[2021-02-14 08:32] LABS: FIBRIN DEGRADATION PRODUCTS <= 0.27 UG/ML (0.00-0.49); INR 1.1 (0.8-1.4); PARTIAL THROMBOPLASTIN TIME 32 SEC (24-35); PROTHROMBIN TIME PATIENT 14.7 SEC (12.2-14.7)
--- NOTE | 2021-02-14 09:09 | Diagnostic Imaging Report ---
Clinical indications: Patient with sepsis. Exam: Portable chest x-ray upright view. Comparisons: None. Findings: Lungs/pleura: Lungs are clear. There is no pneumothorax. There is no pleural effusion. Mediastinum: Unremarkable. Pulmonary vasculature: Unremarkable. Heart: Unremarkable. Bones/extrathoracic soft tissue: Unremarkable. Impression: There is no radiographic evidence of acute cardiopulmonary process. Dictated by: Dictated on workstation # [id number]
[2021-02-14 09:16] LABS: BILIRUBIN,URINE NEGATIVE (NEGATIVE); CLARITY,URINE CLEAR; COLOR,URINE YELLOW; GLUCOSE, URINE (UA) NEGATIVE (NEGATIVE); KETONES,URINE NEGATIVE (NEGATIVE); LEUKOCYTE ESTERASE ,URINE TRACE (NEGATIVE); NITRITE,URINE NEGATIVE (NEGATIVE); PROTEIN,URINE NEGATIVE (NEGATIVE)
[2021-02-14 09:26] LABS: BACTERIA,URINE FEW /HPF; RBC,URINE RARE /HPF
[2021-02-14] MEDS ORDERED: CEPH500T PO (10:06)
[2021-02-14] MEDS ORDERED: ONDA4TAB11 PO (10:06)
[2021-02-14 10:14] VITALS: BP 152/95
== END 2021-02-14 10:14 | disposition home or self-care (01) ==
LOC: EDUNIT# 07:31 → ER 07:32
DX: N39.0 Urinary tract infection, site not specified (principal); R19.7 Diarrhea, unspecified; G47.30 Sleep apnea, unspecified; E66.9 Obesity, unspecified; E03.9 Hypothyroidism, unspecified; F41.9 Anxiety disorder, unspecified; F32.9 Major depressive disorder, single episode, unspecified; F20.9 Schizophrenia, unspecified; F17.210 Nicotine dependence, cigarettes, uncomplicated; Z20.822 Contact with and (suspected) exposure to COVID-19; Z68.42 Body mass index [BMI] 45.0-49.9, adult; Z79.890 Hormone replacement therapy; Z79.899 Other long term (current) drug therapy
CPT/HCPCS: 36415; 71045; 80053; 81000; 83605; 84145; 85025; 85379; 85610; 85730; 86141; 87040; 87088; 87636

== ENCOUNTER → 2022-01-31 | Outpatient (CLI) | payer SELFPAY ==
[~2022-01-31] MED LIST changes: +CEPH500T PO; +ONDA4TAB11 PO
--- NOTE | 2022-01-31 13:51 | Diagnostic Imaging Report ---
PROCEDURE: MRI lumbar spine. TECHNIQUE: Multiplanar, multisequence MRI of the lumbar spine was performed without contrast. INDICATION: Lumbago and left sciatica. EXAMINATION: Lumbar spine MRI without contrast 01/31/2022. FINDINGS: There is normal height and alignment of the vertebral bodies throughout the lumbar spine. Minimal loss of height is seen along the superior endplate at T11 which appears chronic with no associated edema. Visualized cord and tip of the conus unremarkable in appearance and location. L1-L2: There is bilateral facet hypertrophy. There is no central stenosis. The neural foramina appear patent. L2-L3: There is bilateral facet hypertrophy. There is no central stenosis. The neural foramina appear patent. L3-L4: There is bilateral facet hypertrophy. There is no central narrowing. The neural foramina unremarkable. L4-L5: There is intervertebral disc space narrowing and disc desiccation. There is bilateral facet and ligamentum flavum hypertrophy. There is a mild broad-based bulging disc flattening the ventral thecal sac. There is no central stenosis. There is moderate bilateral neural foraminal narrowing. L5-S1: There is intervertebral disc space narrowing and disc desiccation. There is bilateral facet and ligamentum flavum hypertrophy. There is a mild broad-based bulging disc. There is no central stenosis. Neural foramina appear patent. Visualized intra-abdominal structures unremarkable. IMPRESSION: 1. Multilevel degenerative findings as discussed above without significant central or neural foraminal stenosis at any level. Dictated by: Dictated on workstation # [id number]
== END ==
LOC: RAD 14:00
PROVIDERS: ATTEND Physician Assistant
DX: M47.816 Spondylosis without myelopathy or radiculopathy, lumbar region (principal); M48.061 Spinal stenosis, lumbar region without neurogenic claudication; M51.26 Other intervertebral disc displacement, lumbar region; M51.27 Other intervertebral disc displacement, lumbosacral region
CPT/HCPCS: 72148